=== PATIENT | female | born 1960 | race Caucasian/White ===

== ENCOUNTER 2017-06-05 10:48 | Emergency (ER) | payer BC, MEDICAID ==
[2017-06-05 13:26] LABS: Absolute Lymphocytes (CBC) 1.5 K/uL (0.7-4.9); Absolute Monocytes 0.5 K/uL (0.1-1.3); Absolute Neutrophil 2.3 K/uL (1.8-8.0); Basophils % 1.3 % (0-1.3); Eosinophils % 0.3 % (0-4.4); Hematocrit 37.7 % (36.0-45.0); Lymphocytes % 34.3 % (15.3-44.8); MCH 26.3 pg (27.0-35.0); MCV 79.9 fL (80-100); MPV 7.4 fL (7.6-11.3); RBC Red Blood Cell Count 4.72 M/uL (3.86-4.86)
[2017-06-05] MEDS ORDERED: FAMOTIDINE 20 MG/2 ML VIAL IV ONE (13:34)
[2017-06-05] MEDS ORDERED: NA CHLORIDE 0.9% 1,000 ML ONE (13:34)
[2017-06-05] MEDS ORDERED: ONDANSETRON 4 MG/2 ML VIAL ONE (13:34)
[2017-06-05 13:39] LABS: Potassium 4.1 mEq/L (3.6-5.0)
[2017-06-05 13:46] LABS: Albumin 3.7 g/dL (3.2-5.5); Bilirubin Direct 0.1 mg/dL (0-0.2); Bilirubin Total 0.5 mg/dL (0.3-1.2); Protein, Total 7.7 g/dL (6.0-8.3)
--- NOTE | 2017-06-05 13:46 | RAD REPORT ---
EXAM DESCRIPTION: Ivis Single View06/05/2017 1:38 pm CLINICAL HISTORY: Cough COMPARISON: March 2017 FINDINGS: The lungs appear clear of acute infiltrate. The heart is normal size IMPRESSION: No acute abnormalities displayed
[2017-06-05 14:16] LABS: Urine Blood NEGATIVE (NEG); Urine Glucose NEGATIVE (NEG); Urine Protein 1+ (NEG); Urine Specific Gravity 1.025 (1.005-1.030); Urine pH 5.5 (5.0-7.0)
[2017-06-05 14:28] LABS: Urine RBC <5 /HPF (NONE SEEN)
[2017-06-05 14:29] LABS: Urine Bacteria <20 /HPF (<20); Urine Culture Reflex Order REFLEXED
--- NOTE | 2017-06-05 14:33 | EDPHYS ---
Physician Documentation [facility] Name: Tamy Martinez Age: 57 yrs Sex: Female : 1960 Arrival Date: 06/05/2017 Time: 10:51 Bed 14 Private MD: ED Physician Ildefonso Melgra HPI: 06/05 13:05 This 57 yrs old Female presents to ER via Ambulatory with complaints of cp Vomiting/Diarrhea, Cough. 13:05 The patient presents to the emergency department with nausea, that is moderate, cp diarrhea, that is continuous. 13:05 Onset: The symptoms/episode began/occurred last week. cp 13:05 Possible causes: unknown. Associated signs and symptoms: Pertinent negatives: abdominal cp pain, constipation, fever, GI bleeding. Severity of symptoms: in the emergency department the symptoms are unchanged despite home interventions. [employer]: 10:57 LMP N/A - Post-menopause hj Historical: - Allergies: 11:00 Iodinated Contrast Media - IV Dye; hj - Home Meds: 11:00 diclofenac sodium 75 mg Oral TbEC 1 tab [Active]; Flagyl 500 mg Oral tab 1 tab 2 times hj per day [Active]; folic acid 1 mg Oral tab 1 tab once daily [Active]; gabapentin 300 mg Oral cap 1 cap 2 times daily [Active]; hydroxychloroquine 1.5 tabs once daily Oral tab [Active]; Lantus 100 unit/mL Sub-Q soln [Active]; meloxicam 15 mg Oral tab 1 tab once daily [Active]; methotrexate sodium 2.5 mg Oral tab take 8 tablets PO weekly. [Active]; Methotrexate Sodium Oral [Active]; Mobic Oral [Active]; Novolog Sub-Q [Active]; omeprazole 20 mg Oral TbEC 20 mg daily [Active]; Orencia 125 mg/mL subcutaneous syrg [Active]; tramadol 50 mg Oral tab 1 tab every 6 hours [Active]; - PMHx: 11:00 Diabetes - IDDM; Rheumatoid Arthritis; hj - PSHx: 11:00 Knee surgery; Cholecystectomy; ; hj - Immunization history:: Adult Immunizations up to date. - Social history:: Smoking status: Patient/guardian denies using tobacco. ROS: 13:12 Constitutional: Positive for poor PO intake, Negative for body aches, chills, fever. cp 13:12 Eyes: Negative for injury, pain, redness, and discharge. cp 13:12 ENT: Negative for drainage from ear(s), ear pain, sore throat, difficulty swallowing, difficulty handling secretions. 13:12 Cardiovascular: Negative for chest pain, edema, palpitations. 13:12 Respiratory: Negative for cough, shortness of breath, wheezing. 13:12 Abdomen/GI: Positive for nausea, diarrhea, Negative for abdominal pain, vomiting, constipation, anorexia, dysphagia, black/tarry stool, rectal bleeding. 13:12 : Negative for urinary symptoms. 13:12 Skin: Negative for cellulitis, rash. 13:12 Neuro: Negative for altered mental status, headache, weakness. 13:12 All other systems are negative. Exam: 13:18 Head/Face: Normocephalic, atraumatic. cp 13:18 Constitutional: The patient appears in no acute distress, alert, awake, non-diaphoretic, non-toxic, well developed, well nourished. 13:18 Eyes: Periorbital structures: appear normal, Pupils: equal, round, and reactive to cp light and accomodation, Extraocular movements: intact throughout, Conjunctiva: normal, no exudate, no injection, Sclera: no appreciated abnormality, Lids and lashes: appear normal, bilaterally. 13:18 ENT: External ear(s): are unremarkable, Ear canal(s): are normal, clear, TM's: dullness, bilaterally, Nose: is normal, Mouth: Lips: moist, Oral mucosa: pink and intact, moist, Posterior pharynx: is normal, airway is patent, no erythema, no exudate. 13:18 Neck: ROM/movement: is normal, is supple, without pain, no range of motions limitations, no nuchal rigidity. 13:18 Chest/axilla: Inspection: normal, Palpation: is normal, no crepitus, no tenderness. 13:18 Cardiovascular: Rate: normal, Rhythm: regular. 13:18 Respiratory: the patient does not display signs of respiratory distress, Respirations: normal, no use of accessory muscles, no retractions, no splinting, no tachypnea, labored breathing, is not present, Breath sounds: are clear throughout, no decreased breath sounds, no stridor, no wheezing. 13:18 Abdomen/GI: Inspection: abdomen appears normal, Bowel sounds: active, all quadrants, Palpation: abdomen is soft and non-tender, in all quadrants, rebound tenderness, is not appreciated, voluntary guarding, is not appreciated, involuntary guarding, is not appreciated. 13:18 Back: pain, is absent, ROM is normal. 13:18 Skin: cellulitis, is not appreciated, no rash present. Vital Signs: 10:57 BP 127 / 66; Pulse 85; Resp 18; Temp 98.4(TE); Pulse Ox 99% on R/A; Weight 84.82 kg; hj Height 5 ft. 1 in. (154.94 cm); Pain 0/10; 12:45 BP 130 / 96; Pulse 73; Resp 14; Pulse Ox 100% on R/A; mh5 13:38 BP 115 / 84; Pulse 67; Resp 17; Pulse Ox 98% on R/A; tw2 14:37 BP 124 / 57; Pulse 75; Resp 17; Pulse Ox 100% on R/A; tw2 10:57 Body Mass Index 35.33 (84.82 kg, 154.94 cm) hj MDM: 12:44 Patient medically screened. cp 14:00 Differential diagnosis: gastritis, appendicitis, diverticulitis, viral gastroenteritis, cp gastroenteritis, pneumonia. 14:31 Data reviewed: vital signs, nurses notes, lab test result(s), radiologic studies, plain cp films. 14:31 Test interpretation: by ED physician or midlevel provider: plain radiologic studies. cp Counseling: I had a detailed discussion with the patient and/or guardian regarding: the historical points, exam findings, and any diagnostic results supporting the discharge/admit diagnosis, lab results, radiology results, to return to the emergency department if symptoms worsen or persist or if there are any questions or concerns that arise at home. Response to treatment: the patient's symptoms have markedly improved after treatment. 06/05 13:03 Order name: Amylase, Serum; Complete Time: 14:28 cp 06/05 13:03 Order name: Basic Metabolic Panel; Complete Time: 14:28 cp 06/05 14:28 Interpretation: Normal except: NA 134; GLUC 184; GFR 60. cp 06/05 13:03 Order name: CBC with Diff; Complete Time: 13:44 cp 06/05 13:44 Interpretation: Normal except: MCV 79.9; MCH 26.3; RDW 15.9; MPV 7.4. cp 06/05 13:03 Order name: Creatinine for Radiology; Complete Time: 13:44 cp 06/05 13:03 Order name: Hepatic Function; Complete Time: 14:28 cp 06/05 14:28 Interpretation: Normal except: GLOB 4.0; A/G 0.9. cp 06/05 13:03 Order name: Lipase; Complete Time: 14:28 cp 06/05 13:03 Order name: Urine Microscopic Only cp 06/05 13:03 Order name: CXR XRAY; Complete Time: 14:28 cp 06/05 14:11 Order name: Urine Dipstick--Ancillary (enter results); Complete Time: 14:28 ag 06/05 14:28 Interpretation: Normal except: UPROT 1+. cp 06/05 14:11 Order name: Urine --Ancillary (enter results); Complete Time: 14:28 ag 06/05 14:30 Order name: Urine Culture EDCT 06/05 13:03 Order name: Urine Test (obtain specimen); Complete Time: 13:55 cp 06/05 13:03 Order name: IV Saline Lock; Complete Time: 13:43 cp 06/05 13:03 Order name: Labs collected and sent; Complete Time: 13:43 cp 06/05 13:03 Order name: Urine Dipstick-Ancillary (obtain specimen); Complete Time: 13:55 cp Administered Medications: 13:30 Drug: Zofran 4 mg Route: IVP; Site: left antecubital; tw2 13:42 Follow up: Response: No adverse reaction tw2 13:32 Drug: Pepcid 20 mg Route: IVP; Site: left antecubital; tw2 13:42 Follow up: Response: No adverse reaction tw2 13:34 Drug: NS 0.9% 1000 ml Route: IV; Rate: 1 bolus; Site: left antecubital; tw2 13:43 Follow up: Response: No adverse reaction; IV Status: Completed infusion; IV Intake: tw2 1000ml 14:38 Follow up: Response: No adverse reaction; IV Status: Order to discontinue infusion; IV tw2 Intake: 200ml Disposition: 06/06 06:45 Co-signature as Attending Physician, Ildefonso RYAN I agree with the assessment and barbara plan of care. Disposition: 03/26/18 14:32 Discharged to Home. Impression: Diarrhea, unspecified, Nausea, Cough. - Condition is Stable. - Discharge Instructions: Food Choices to Help Relieve Diarrhea, Adult, Diarrhea, Nausea, Adult, Cough, Adult. - Prescriptions for Zofran 4 mg Oral Tablet - take 1 tablet by ORAL route every 12 hours As needed; 20 tablet. Tessalon Perles 100 mg Oral Capsule - take 1 capsule by ORAL route every 8 hours As needed; 15 capsule. - Medication Reconciliation Form, Thank You Letter, Antibiotic Education, Prescription Opioid Use form. - Follow up: Private Physician; When: 1 - 2 days; Reason: Recheck today's complaints. - Problem is new. - Symptoms have improved. Signatures: Dispatcher [employer] EDIldefonso Lange MD MD cha Joaquin, Henry, RN RN hj Ildefonso Jasso PA PA cp Wise, Tara RN RN tw2
--- NOTE | 2017-06-05 14:33 | ER ---
Nurse's Notes [facility] Name: Tamy Martinez Age: 57 yrs Sex: Female : 1960 Arrival Date: 06/05/2017 Time: 10:51 Bed 14 Private MD: Diagnosis: Diarrhea, unspecified;Nausea;Cough Presentation: 06/05 10:56 Presenting complaint: Patient states: i ve been coughing and vomiting since Monday, hj diarrhea started Monday; denies abd pain; report fever and chills;. Transition of care: patient was not received from another setting of care. Onset of symptoms was June 05, 2017. Care prior to arrival: None. 10:56 Method Of Arrival: Ambulatory hj 10:56 Acuity: HODAN 3 hj Triage Assessment: 10:57 General: Appears in no apparent distress. uncomfortable, Behavior is calm, cooperative, hj appropriate for age. Pain: Denies pain. GI: Reports nausea, vomiting. 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 [Active]; Methotrexate Sodium Oral [Active]; Mobic Oral [Active]; Novolog Sub-Q [Active]; omeprazole 20 mg Oral TbEC 20 mg daily [Active]; Orencia 125 mg/mL subcutaneous syrg [Active]; tramadol 50 mg Oral tab 1 tab every 6 hours [Active]; - PMHx: 11:00 Diabetes - IDDM; Rheumatoid Arthritis; hj - PSHx: 11:00 Knee surgery; Cholecystectomy; ; hj - Immunization history:: Adult Immunizations up to date. - Social history:: Smoking status: Patient/guardian denies using tobacco. Screenin:46 Abuse screen: Denies threats or abuse. Nutritional screening: No deficits noted. tw2 Tuberculosis screening: No symptoms or risk factors identified. Fall Risk Ambulatory Aid- Crutches/Cane/Walker (15 pts). Assessment: 10:57 GI: Abdomen is non-distended. hj 12:43 General: Appears in no apparent distress. obese, Behavior is calm, cooperative, tw2 appropriate for age. Pain: Denies pain. Neuro: Level of Consciousness is awake, alert, obeys commands, Oriented to person, place, time, situation. Cardiovascular: Denies chest pain, shortness of breath, Heart tones S1 S2 Capillary refill < 3 seconds Patient's skin is warm and dry. Respiratory: Reports cough that is non-productive, Airway is patent Respiratory effort is even, unlabored, Respiratory pattern is regular, symmetrical, Breath sounds are clear bilaterally. GI: Abdomen is round non-distended, Bowel sounds present X 4 quads. Abd is soft and non tender X 4 quads. Reports diarrhea, intolerance of fluids, intolerance of food, nausea, vomiting. : No signs and/or symptoms were reported regarding the genitourinary system. EENT: No signs and/or symptoms were reported regarding the EENT system. Derm: No signs and/or symptoms reported regarding the dermatologic system. Musculoskeletal: Range of motion: intact in all extremities, pt using cane at this time, states she had knee replacement a few weeks ago. 13:41 Reassessment: Patient appears in no apparent distress at this time. No changes from tw2 previously documented assessment. Patient and/or family updated on plan of care and expected duration. Pain level reassessed. Patient is alert, oriented x 3, equal unlabored respirations, skin warm/dry/pink. pt had an accident after coughing and had a bm in her pants, brief, wipes, and new gown given to pt. 14:38 Reassessment: Patient appears in no apparent distress at this time. No changes from tw2 previously documented assessment. Patient and/or family updated on plan of care and expected duration. Pain level reassessed. Patient is alert, oriented x 3, equal unlabored respirations, skin warm/dry/pink. Vital Signs: 10:57 BP 127 / 66; Pulse 85; Resp 18; Temp 98.4(TE); Pulse Ox 99% on R/A; Weight 84.82 kg; hj Height 5 ft. 1 in. (154.94 cm); Pain 0/10; 12:45 BP 130 / 96; Pulse 73; Resp 14; Pulse Ox 100% on R/A; mh5 13:38 BP 115 / 84; Pulse 67; Resp 17; Pulse Ox 98% on R/A; tw2 14:37 BP 124 / 57; Pulse 75; Resp 17; Pulse Ox 100% on R/A; tw2 10:57 Body Mass Index 35.33 (84.82 kg, 154.94 cm) ED Course: 10:51 Patient arrived in ED. mr 10:57 Triage completed. hj 10:57 Arm band placed on left wrist. hj 12:43 Nadege Chacon RN is Primary Nurse. tw2 12:43 Ildefonso Jasso PA is PHCP. cp 12:43 Ildefonso Melgar MD is Attending Physician. cp 12:46 Bed in low position. Call light in reach. Pulse ox on. NIBP on. tw2 12:47 No provider procedures requiring assistance completed. tw2 13:20 Inserted saline lock: 22 gauge in right antecubital area, using aseptic technique. tw2 ,using aseptic technique. per Celine Alcantara Blood collected. 13:30 Inserted saline lock: 22 gauge in left antecubital area, using aseptic technique. IV tw2 discontinued, intact, bleeding controlled, No redness/swelling at site. Pressure dressing applied, infiltration noted to right ac, discontinued at this time. 13:37 CXR XRAY In Process Unspecified. EDMS 13:37 X-ray completed. Portable x-ray completed in exam room. Patient tolerated procedure jb2 well. Administered Medications: 13:30 Drug: Zofran 4 mg Route: IVP; Site: left antecubital; tw2 13:42 Follow up: Response: No adverse reaction tw2 13:32 Drug: Pepcid 20 mg Route: IVP; Site: left antecubital; tw2 13:42 Follow up: Response: No adverse reaction tw2 13:34 Drug: NS 0.9% 1000 ml Route: IV; Rate: 1 bolus; Site: left antecubital; tw2 13:43 Follow up: Response: No adverse reaction; IV Status: Completed infusion; IV Intake: tw2 1000ml 14:38 Follow up: Response: No adverse reaction; IV Status: Order to discontinue infusion; IV tw2 Intake: 200ml Intake: 13:43 IV: 1000ml; Total: 1000ml. tw2 14:38 IV: 200ml; Total: 1200ml. tw2 Outcome: 13:41 Discharged to home ambulatory, with significant other. tw2 13:41 Condition: stable 13:41 Discharge instructions given to patient, significant other, Instructed on discharge instructions, follow up and referral plans. medication usage, Demonstrated understanding of instructions, follow-up care, medications, Prescriptions given X 2. 14:32 Discharge ordered by . polo 14:39 Patient left the ED. tw2 Addendum: 06/09/2017 13:53 Addendum: Culture Results: Positive urine culture. Phone call Attempt #1 no answer. s s Signatures: Dispatcher [employer] Mary Galicia Marvin Correa jb2 Veronika Norton RN RN Ankur Day RN RN Ildefonso Jasso PA PA cp Wise, Tara, RN RN 2 Mary Ramsey [facility] Corrections: (The following items were deleted from the chart) 06/05 11:00 10:57 Pulse 85bpm; Resp 18bpm; Pulse Ox 99% RA; Temp 98.4F Temporal; 84.82 kg; Height 5 hj ft. 1 in.; BMI: 35.3; Pain 0/10; hj 13:49 13:48 BP 124 / 57; Pulse 72bpm; Resp 17bpm; Pulse Ox 97% RA; tw2 tw2 13:50 13:41 Reassessment: Patient appears in no apparent distress at this time. No changes tw2 from previously documented assessment. Patient and/or family updated on plan of care and expected duration. Pain level reassessed. Patient is alert, oriented x 3, equal unlabored respirations, skin warm/dry/pink. tw2
[2017-06-05 14:53] VITALS: TEMP 98.4
[2017-06-05 14:56] VITALS: BP 124/57; O2SAT 100
== END 2017-06-05 14:39 | disposition home or self-care (01) ==
LOC: ER 10:48
DX: R19.7 Diarrhea, unspecified (principal); R05 Cough; E11.9 Type 2 diabetes mellitus without complications; Z91.041 Radiographic dye allergy status; Z79.4 Long term (current) use of insulin
CPT/HCPCS: 36415; 71045; 80048; 80076; 81003; 81015; 81025; 82150; 83690; 85025; 87077; 87086; 87088; 87186; 96374; 96375; 99284; J2405; J7030

== ENCOUNTER 2018-06-27 09:31 | Observation (INO) | payer BC, OTHER ==
--- OUTSIDE RECORDS SUMMARY | 2018-06-27 09:47 | XMS REPORT ---
:1960 [facility] [address] [place] [address] [address]. [address] [place] [address] Care Team Providers Name Role Phone Unavailable Unavailable Unavailable Problems This patient has no known problems. Allergies, Adverse Reactions, Alerts This patient has no known allergies or adverse reactions. Medications This patient has no known medications.
[2018-06-27] MEDS ORDERED: NITROGLYCERIN 0.4 MG/TAB SL ONE (09:49)
--- NOTE | 2018-06-27 10:04 | RAD REPORT ---
EXAM DESCRIPTION: RAD - Chest Single View - 06/27/2018 9:57 am CLINICAL HISTORY: CHEST PAIN Chest pain. COMPARISON: Chest Single View dated 06/05/2017; Chest Single View dated 03/13/2017; Chest Single View d ated 04/11/2016; CHEST SINGLE VIEW dated 10/09/2014 FINDINGS: Portable technique limits examination quality. The lungs are grossly clear. The heart is upper limit of normal in size. No displaced fractures. IMPRESSION: No acute intrathoracic process suspected.
[2018-06-27 10:06] LABS: Absolute Lymphocytes (CBC) 2.4 K/uL (0.7-4.9); Absolute Monocytes 0.6 K/uL (0.1-1.3); Absolute Neutrophil 4.4 K/uL (1.8-8.0); Basophils % 0.4 % (0-1.3); Eosinophils % 2.1 % (0-4.4); Hematocrit 39.5 % (36.0-45.0); Lymphocytes % 31.4 % (15.3-44.8); MPV 8.1 fL (7.6-11.3); Monocytes % 8.4 % (3.3-12.3); RBC Red Blood Cell Count 4.66 M/uL (3.86-4.86)
[2018-06-27 10:21] LABS: BUN Blood Urea Nitrogen 18 mg/dL (7-18); Bicarbonate 28 mmol/L (21-32); Glucose Level 231 mg/dL (74-106); NT PRO-BNP 234 pg/mL (<125); Potassium 4.4 mmol/L (3.5-5.1); Sodium Level 140 mmol/L (136-145); Troponin (Emerg Dept Use Only) < 0.02 ng/mL (0.0-0.045)
--- NOTE | 2018-06-27 10:41 | EDPHYS ---
Physician Documentation [facility] Name: Tamy Martinez Age: 58 yrs Sex: Female : 1960 Arrival Date: 06/27/2018 Time: 09:32 Bed 5 Private MD: ED Physician Prince Lopez HPI: 06/27 09:33 This 58 yrs old Female presents to ER via Unassigned with complaints of Chest rn Pain. 09:33 The patient or guardian reports chest pain that is located primarily in the substernal rn area. Onset: at 07:00. The pain radiates to the left arm, left neck. The chest pain is described as sharp. Duration: The patient or guardian reports a single episode, that is still ongoing. Modifying factors: The symptoms are alleviated by nothing. the symptoms are aggravated by nothing. Severity of pain: At its worst the pain was moderate in the emergency department the pain has improved. The patient has not experienced similar symptoms in the past. Reports chest pain, radiates to left neck and left arm, began at 0700, no diaphoresis, no fever, no sob, has never had before. Has RA.. Historical: - Allergies: 09:35 Iodinated Contrast Media - IV Dye; aa5 - Home Meds: 09:35 Lantus 100 unit/mL Sub-Q soln [Active]; Novolog Sub-Q [Active]; gabapentin 300 mg Oral aa5 cap 1 cap 2 times daily [Active]; Methotrexate Sodium Oral [Active]; Unknown medication for RA [Active]; - PMHx: 09:35 Diabetes - IDDM; Rheumatoid Arthritis; Hypertension resolved after lap band; aa5 - PSHx: 09:35 Knee surgery; Cholecystectomy; ; Lap band; aa5 - Family history:: pertinent for CVA or TIA. - Ebola Screening: : No symptoms or risks identified at this time. - Hospitalizations: : No recent hospitalization is reported. ROS: 09:33 Constitutional: Negative for fever, chills, and weight loss, Eyes: Negative for injury, rn pain, redness, and discharge, Neck: Negative for injury, pain, and swelling, Cardiovascular: + chest pain Respiratory: Negative for shortness of breath, cough, wheezing, and pleuritic chest pain, Abdomen/GI: Negative for abdominal pain, nausea, vomiting, diarrhea, and constipation, MS/Extremity: Negative for injury and deformity, Skin: Negative for injury, rash, and discoloration, Neuro: Negative for headache, weakness, numbness, tingling, and seizure. Exam: 09:33 Constitutional: This is a well developed, well nourished patient who is awake, alert, rn and in no acute distress. Head/Face: Normocephalic, atraumatic. Eyes: Pupils equal round and reactive to light, extra-ocular motions intact. Lids and lashes normal. Conjunctiva and sclera are non-icteric and not injected. Cornea within normal limits. Periorbital areas with no swelling, redness, or edema. Neck: Trachea midline, no thyromegaly or masses palpated, and no cervical lymphadenopathy. Supple, full range of motion without nuchal rigidity, or vertebral point tenderness. No Meningismus. Cardiovascular: Regular rate and rhythm. No pulse deficits. Respiratory: Lungs have equal breath sounds bilaterally, clear to auscultation. No increased work of breathing, no retractions or nasal flaring. Abdomen/GI: soft, non-tender Skin: Warm, dry. MS/ Extremity: Pulses equal, no cyanosis. Neuro: Awake and alert, GCS 15, oriented to person, place, time, and situation. 09:57 ECG was reviewed by the Attending Physician. rn Vital Signs: 09:32 BP 155 / 99; Pulse 80; Resp 18 S; Temp 98.3(O); Pulse Ox 100% on R/A; Weight 89.81 kg aa5 (R); Height 5 ft. 1 in. (154.94 cm) (R); Pain 9/10; 09:44 BP 127 / 68; Pulse 77; Resp 16 S; Pulse Ox 97% on R/A; Pain 8/10; aa5 10:19 BP 130 / 66; Pulse 64; Resp 16 S; Pulse Ox 14% on R/A; jl7 10:40 BP 121 / 67; Pulse 66; Resp 16 S; Pulse Ox 100% on R/A; Pain 7/10; aa5 11:27 BP 132 / 54; Pulse 59; Resp 18 S; Pulse Ox 97% on R/A; aa5 12:15 BP 124 / 55; Pulse 65; Resp 16 S; Pulse Ox 98% on R/A; aa5 13:13 BP 135 / 56; Pulse 70; Resp 16; Pulse Ox 97% on R/A; mt 09:32 Body Mass Index 37.41 (89.81 kg, 154.94 cm) aa5 MDM: 09:32 Patient medically screened. rn 10:38 Differential diagnosis: acute myocardial infarction, acute pericarditis, anxiety, rn coronary artery disease chest wall pain, costochondritis, gastritis, gastroesophageal reflux disease (GERD), pleurisy, pneumonia, pneumothorax, stable angina. The patient was not given aspirin in the Emergency Department. Administered by EMS. Data reviewed: vital signs, nurses notes, lab test result(s), EKG, radiologic studies, plain films, and as a result, I will admit patient. Counseling: I had a detailed discussion with the patient and/or guardian regarding: the historical points, exam findings, and any diagnostic results supporting the discharge/admit diagnosis, lab results, radiology results, the need for further work-up and treatment in the hospital. Response to treatment: the patient's symptoms have mildly improved after treatment, and as a result, I will discharge patient. Special discussion:. ED course: Chest pain improved after nitro, will admit to Dr. Parson for cardiac w/u given family history, personal medical problems, and never had this before. . 06/27 09:32 Order name: Basic Metabolic Panel; Complete Time: 10:06/27 09:32 Order name: CBC with Diff; Complete Time: :06/27 09:32 Order name: NT PRO-BNP; Complete Time: 10:06/27 09:32 Order name: Troponin (emerg Dept Use Only); Complete Time: 10:06/27 09:32 Order name: XRAY Chest (1 view); Complete Time: 10:06/27 09:32 Order name: EKG; Complete Time: :33 06/27 09:32 Order name: Cardiac monitoring; Complete Time: :06/27 09:32 Order name: EKG - Nurse/Tech; Complete Time: :06/27 09:32 Order name: IV Saline Lock; Complete Time: :06/27 09:32 Order name: Labs collected and sent; Complete Time: 09:43 06/27 09:32 Order name: O2 Per Protocol; Complete Time: rn 06/27 09:32 Order name: O2 Sat Monitoring; Complete Time: rn 06/27 10:40 Order name: Diet Ada 1800 Fran; Complete Time: 10:40 aa5 EC:57 Rate is 73 beats/min. Rhythm is regular. QRS Tie Siding is Normal. MN interval is normal. QRS rn interval is normal. QT interval is normal. No Q waves. T waves are Normal. No ST changes noted. Clinical impression: NSR w/ Non-specific ST/T Changes. Interpreted by me. Reviewed by me. Administered Medications: 09:38 Drug: Nitroglycerin 0.4 mg Route: Sublingual; aa5 09:45 Follow up: Response: No adverse reaction; Pain is decreased aa5 Disposition: 06/27/18 10:40 Hospitalization ordered by Saida Parson for Observation. Preliminary diagnosis is Chest pain, unspecified. - Bed requested for Telemetry/MedSurg (observation). - Status is Observation. aa5 - Condition is Stable. - Problem is new. - Symptoms have improved. UTI on Admission? No Signatures: Dispatcher [employer] EDMS Monica Wise Roman, MD MD rn Calderon, Audri, RN RN aa5 Corrections: (The following items were deleted from the chart) 12:55 10:40 Hospitalization Ordered by Saida Parson MD for Observation. Preliminary diagnosis bd is Chest pain, unspecified. Bed requested for Telemetry/MedSurg (observation). Status is Observation. Condition is Stable. Problem is new. Symptoms have improved. UTI on Admission? No. rn 13:52 12:55 06/27/2018 10:40 Hospitalization Ordered by Saida Parson MD for Observation. aa5 Preliminary diagnosis is Chest pain, unspecified. Bed requested for Telemetry/MedSurg (observation). Status is Observation. Condition is Stable. Problem is new. Symptoms have improved. UTI on Admission? No. bd
--- NOTE | 2018-06-27 10:41 | ER ---
Nurse's Notes [facility] Name: Tamy Martinez Age: 58 yrs Sex: Female : 1960 Arrival Date: 06/27/2018 Time: 09:32 Bed 5 Private MD: Diagnosis: Chest pain, unspecified Presentation: 06/27 09:32 Presenting complaint: Patient states: chest pain radiating to left side of neck and aa5 left arm that began at 0700 today. Transition of care: patient was not received from another setting of care. Onset of symptoms was June 27, 2018. Risk Assessment: Do you want to hurt yourself or someone else? Patient reports no desire to harm self or others. Initial Sepsis Screen: Does the patient meet any 2 criteria? No. Patient's initial sepsis screen is negative. Does the patient have a suspected source of infection? No. Patient's initial sepsis screen is negative. Care prior to arrival: Medication(s) given: ASA, 81 mg, x 4, IV initiated. 20 GA, in the right forearm, Glucose check: 239. 09:32 Method Of Arrival: EMS: [facility] aa5 09:32 Acuity: HODAN 2 aa5 Historical: - Allergies: 09:35 Iodinated Contrast Media - IV Dye; aa5 - Home Meds: 09:35 Lantus 100 unit/mL Sub-Q soln [Active]; Novolog Sub-Q [Active]; gabapentin 300 mg Oral aa5 cap 1 cap 2 times daily [Active]; Methotrexate Sodium Oral [Active]; Unknown medication for RA [Active]; - PMHx: 09:35 Diabetes - IDDM; Rheumatoid Arthritis; Hypertension resolved after lap band; aa5 - PSHx: 09:35 Knee surgery; Cholecystectomy; ; Lap band; aa5 - Family history:: pertinent for CVA or TIA. - Ebola Screening: : No symptoms or risks identified at this time. - Hospitalizations: : No recent hospitalization is reported. Screenin:36 Abuse screen: Denies threats or abuse. Nutritional screening: No deficits noted. aa5 Tuberculosis screening: No symptoms or risk factors identified. Fall Risk None identified. Assessment: 09:33 General: Appears uncomfortable, Behavior is calm, cooperative. Pain: Complains of pain aa5 in anterior aspect of left upper chest Pain radiates to left side of neck and left arm Pain currently is 9 out of 10 on a pain scale. Quality of pain is described as sharp, Pain began 0700 Is continuous. Neuro: Level of Consciousness is awake, alert, obeys commands, Oriented to person, place, time, situation. Cardiovascular: Heart tones S1 S2 present Rhythm is sinus rhythm. Respiratory: Airway is patent Respiratory effort is even, unlabored, Respiratory pattern is regular, symmetrical, Breath sounds are clear bilaterally. Denies cough, shortness of breath. GI: Abdomen is round Bowel sounds present X 4 quads. Abd is soft and non tender X 4 quads. Patient currently denies nausea, vomiting. : No signs and/or symptoms were reported regarding the genitourinary system. EENT: No signs and/or symptoms were reported regarding the EENT system. Derm: Skin is pink, warm \\T\\ dry. Musculoskeletal: Range of motion: intact in all extremities. 09:45 Reassessment: Patient and/or family updated on plan of care and expected duration. Pain aa5 level reassessed. Patient is alert, oriented x 3, equal unlabored respirations, skin warm/dry/pink. Pt states "I feel a little better now" . Pain: Pain currently is 8 out of 10 on a pain scale. 10:40 Reassessment: Patient is alert, oriented x 3, equal unlabored respirations, skin aa5 warm/dry/pink. MD at bedside updating pt on POC and of need to be hospitalized. . Cardiovascular: Rhythm is sinus rhythm. 11:27 Reassessment: Patient and/or family updated on plan of care and expected duration. Pain aa5 level reassessed. Patient is alert, oriented x 3, equal unlabored respirations, skin warm/dry/pink. 12:25 Reassessment: Patient is alert, oriented x 3, equal unlabored respirations, skin aa5 warm/dry/pink. Pt given lunch tray. Awaiting room assignment . 13:10 Reassessment: Patient is alert, oriented x 3, equal unlabored respirations, skin aa5 warm/dry/pink. Patient states feeling better. Pt tolerated lunch, pt notified of room assignment and notified of wait time to be transported there. . Vital Signs: 09:32 BP 155 / 99; Pulse 80; Resp 18 S; Temp 98.3(O); Pulse Ox 100% on R/A; Weight 89.81 kg aa5 (R); Height 5 ft. 1 in. (154.94 cm) (R); Pain 9/10; 09:44 BP 127 / 68; Pulse 77; Resp 16 S; Pulse Ox 97% on R/A; Pain 8/10; aa5 10:19 BP 130 / 66; Pulse 64; Resp 16 S; Pulse Ox 14% on R/A; jl7 10:40 BP 121 / 67; Pulse 66; Resp 16 S; Pulse Ox 100% on R/A; Pain 7/10; aa5 11:27 BP 132 / 54; Pulse 59; Resp 18 S; Pulse Ox 97% on R/A; aa5 12:15 BP 124 / 55; Pulse 65; Resp 16 S; Pulse Ox 98% on R/A; aa5 13:13 BP 135 / 56; Pulse 70; Resp 16; Pulse Ox 97% on R/A; mt 09:32 Body Mass Index 37.41 (89.81 kg, 154.94 cm) aa5 ED Course: 09:32 Patient arrived in ED. aa5 09:32 Prince Lopez MD is Attending Physician. rn 09:32 Arm band placed on Patient placed in an exam room, on a stretcher. aa5 09:33 Triage completed. aa5 09:35 Patient has correct armband on for positive identification. Bed in low position. Call aa5 light in reach. Side rails up X2. monitor and storage bin tender on. Pulse ox on. NIBP on. 09:35 EKG done, by armored service technician. reviewed by Prince Lopez MD. at1 09:35 Initial lab(s) drawn, by dc, sent to lab. aa5 09:36 Nellie Omalley, RN is Primary Nurse. aa5 09:36 No provider procedures requiring assistance completed. Patient maintains SpO2 aa5 saturation greater than 95% on room air. 09:57 X-ray completed. Portable x-ray completed in exam room. Patient tolerated procedure sw well. 09:58 XRAY Chest (1 view) In Process Unspecified. EDMS 10:40 Saida Parson MD is Hospitalizing Provider. rn 13:50 Patient admitted, IV remains in place. aa5 Administered Medications: 09:38 Drug: Nitroglycerin 0.4 mg Route: Sublingual; aa5 09:45 Follow up: Response: No adverse reaction; Pain is decreased aa5 Outcome: 10:40 Decision to Hospitalize by Provider. rn 13:27 Admitted to Tele accompanied by tech, via wheelchair, room 417, with chart, Report sv called to Mariaelena OLVERA 13:27 Condition: stable 13:27 Instructed on the need for admit. 13:52 Patient left the ED. aa5 Signatures: Dispatcher [employer] EDNancy Carter RN RN Prince Ruano MD MD rn Calderon, Audri, RN RN aa5 Jackie Rangel, environmental control administrator EKG Tat1 Elvira Rangel Jahala, RN RN jl7 Yasmeen Vuong tx Corrections: (The following items were deleted from the chart) 09:36 09:32 BP 155 / 99; Pulse 80bpm; Resp 18bpm; Spontaneous; Pulse Ox 100% RA; 89.81 kg aa5 Reported; Height 5 ft. 1 in. Reported; BMI: 37.4; Pain 9/10; aa5 09:45 09:32 Care prior to arrival: Medication(s) given: ASA, 81 mg, x 4, IV initiated. 20 GA, aa5 in the right forearm, aa5
--- NOTE | 2018-06-27 12:01 | EKG ---
Test Date: 2018-06-27 Test Time: 09:29:07 Monogram Maker: ZOË MEASUREMENT RESULTS: Intervals: Rate: 73 FL: 138 QRSD: 84 QT: 396 QTc: 436 [place]: P: 75 FL: 138 QRS: 51 T: 59 INTERPRETIVE STATEMENTS: Normal sinus rhythm Cannot rule out Anterior infarct, age undetermined Abnormal ECG Compared to ECG 03/13/2017 15:12:14 Myocardial infarct finding now present Electronically Signed On 06-27-18 12:00:33 CDT by Gabriel Hui
[2018-06-27] MEDS ORDERED: ACETAMINOPHEN 500 MG TAB PO PRN (14:14)
[2018-06-27] MEDS: INSULIN -REGULAR HUMAN 50 UNIT/0.5 ML ML SQ SCH ×3 (14:14→21:05)
[2018-06-27] MEDS ORDERED: NITROGLYCERIN 0.4 MG/TAB SL PRN (14:14)
[2018-06-27 14:35] VITALS: BMI 33.2
[2018-06-27] MEDS ORDERED: D50W 25 GM/50 ML SYRINGE IV PRN (14:37)
[2018-06-27] MEDS ORDERED: GLUCAGON 1 MG/VIAL IM PRN (14:37)
[2018-06-27] MEDS: MORPHINE 2 MG/ML SYR IV PRN ×3 (15:08→22:52)
[2018-06-27] MEDS ORDERED: PNEUMOCOCCAL VACCINE 0.5 ML IMVAC ONE (16:00)
[2018-06-27] MEDS ORDERED: INSULIN ASPART 12 UNIT SQ SCH (17:00)
[2018-06-27] MEDS: INSULIN LISPRO 100 UNIT/1 ML SQ SCH (17:00)
--- NOTE | 2018-06-27 17:33 | ECHO ---
HEIGHT: 5 ft 1 in WEIGHT: 176 lb 0 oz DATE OF STUDY: 06/27/[address]: Saida Parson MD 2-DIMENSIONAL: YES M.MODE: YES DOPPLER: YES COLOR FLOW: YES TDS: PORTABLE: DEFINITY: BUBBLE STUDY: DIAGNOSIS: CHEST PAIN CARDIAC HISTORY: CATHERIZATION: NO SURGERY: NO PROSTHETIC VALVE: NO PACEMAKER: NO MEASUREMENTS (cm) DIASTOLIC (NORMALS) SYSTOLIC (NORMALS) IVSd 1.0 (0.6-1.2) LA Diam 3.6 (1.9-4.0) LVEF 65% LVIDd 4.9 (3.5-5.7) LVIDs 3.2 (2.0-3.5) %FS 36% LVPWd 1.1 (0.6-1.2) Ao Diam 2.3 (2.0-3.7) 2 DIMENSIONAL ASSESSMENT: RIGHT ATRIUM: NORMAL LEFT ATRIUM: NORMAL RIGHT VENTRICLE: NORMAL LEFT VENTRICLE: NORMAL TRICUSPID VALVE: NORMAL MITRAL VALVE: NORMAL PULMONIC VALVE: NORMAL AORTIC VALVE: NORMAL PERICARDIAL EFFUSION: NONE AORTIC ROOT: NORMAL LEFT VENTRICULAR WALL MOTION: NORMAL DOPPLER/COLOR FLOW: MILD AORTIC REGURGITATION. MILD TRICUSPID REGURGITATION. NORMAL RIGHT VENTRICULAR SYSTOLIC PRESSURE. COMMENTS: NORMAL TWO DIMENSIONAL ECHOCARDIOGRAM. MILD AORTIC REGURGITATION AND TRICUSPID REGURGITATION. TECHNOLOGIST: CALVIN HERNÁNDEZ.
[2018-06-27] MEDS ORDERED: ATORVASTATIN 40 MG TAB PO SCH (21:00)
[2018-06-27] MEDS ORDERED: INSULIN GLARGINE HUM REC ANLOG 36 UNIT SQ SCH (21:00)
[2018-06-27] MEDS ORDERED: INSULIN GLARGINE 100 UNITS/ML SQ SCH (21:00)
[2018-06-27] MEDS: GABAPENTIN 100 MG CAP PO SCH (21:04)
--- NOTE | 2018-06-27 23:09 | CON ---
History Of Present Illness: Mrs. Martinez came to the hospital for chest pain. It was mostly in the l eft shoulder region and left side of her neck and made her worried about her heart. She has never hernandez d heart disease in the past. She has had normal stress test in the past. No history of myocardial i nfarction or stroke. She has numerous risk factors. She has diabetes, rheumatoid arthritis, obesity , hypertension. Allergies: SHE IS ALLERGIC TO X-RAY CONTRAST MATERIAL. Medications: She takes folic acid, insulin, omeprazole, methotrexate, hydroxychloroquine, gabapentin , metoprolol, tofacitinib, meloxicam, and ibuprofen. Physical Examination: General: She is 5 feet and 1 inch, 176 pounds, alert, oriented, pleasant, not in distress. Lungs: Clear. Cardiac: Within normal limits. Abdomen: Soft. Extremities: Diminished but palpable pulses. Vital Signs: Blood pressure 135/56, pulse 70. Laboratory Data: EKG; possible septal RI, new since the old EKG. Cardiac enzymes are normal. Compl ete blood count is normal. Creatinine 1.01. Blood sugars 231 and 243. Impression: Mrs. Martinez may indeed have CAD. I would recommend an echocardiogram, nuclear stress te st, and we will see what we learn from those. ALLIE/EVI Voice ID: [id number] Report ID: [id number]
[2018-06-28 00:21] LABS: Urine Appearance CLEAR; Urine Bilirubin NEGATIVE (NEG); Urine Blood NEGATIVE (NEG); Urine Color YELLOW; Urine Glucose TRACE (NEG); Urine Microscopic Reflex NO UMIC; Urine Protein NEGATIVE (NEG); Urine Specific Gravity 1.015 (1.005-1.030); Urine Urobilinogen 0.2 mg/dL (0.2-1.0)
--- NOTE | 2018-06-28 02:37 | HP ---
Date of Admission: 06/27/2018 Chief Complaint: Chest pain. Consultants: Dr. Hui with Cardiology. History Of Present Illness: The patient is a 58-year-old female who comes into the hospital with past medical history of hypertension, diabetes, rheumatoid arthritis, who is on DMARDs, comes in with chest pain. 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 The patient describes some nauseating feeling and lost her balance, had to hold onto the [employer]ois register to prevent falling. The patient's symptoms were constant, moderate, progressively worsening. The patient does have strong family history of heart disease with father who had an AL at the age of 40, at 43. The patient came into the ER for further workup. Her initial troponin and EKG did not show any acute changes. The patient was then referred for admission. When seen in the ER, she was awake, alert, oriented x3, in some mild distress. Past Medical History: Hypertension; diet-controlled diabetes; rheumatoid arthritis, on DMARDs; degenerative disk disease of the spine. Past Surgical History: Lap band in 2010, x2, left knee replacement, cholecystectomy. Allergies: TO IODINE CONTRAST. Medications: List reviewed. Social History: The patient denies any tobacco use, alcohol use, or illicit drug use. 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 She has , has 2 children. Family History: Father had hypertension and AL at the age of 40, at the age of 43. Brother also had AL at 30, in a car wreck. Mother had esophageal cancer. Review of Systems: An 11-point system reviewed, negative except as per HPI. Physical Examination: Vital Signs: Temperature 98.3, heart rate 80, blood pressure 155/99, respirations 18, O2 100% on room air. General: Awake, alert, oriented x3, ill-appearing female, appears older than stated age. Obese, BMI 33. HEENT: Normocephalic, atraumatic. PERRLA. EOMI. Moist mucous membranes. The oropharynx is clear. Conjunctivae anicteric. Poor dentition. Oropharynx is clear. Neck: Supple. No JVD. Trachea midline. CV: S1, S2. Regular rate and rhythm. Peripheral pulses present. Respiratory: Clear to auscultation bilaterally. No wheezing or stridor. No use of accessory muscles. Gastrointestinal: Abdomen is soft, nontender, nondistended. Positive bowel sounds. No guarding or rigidity. Extremities: No clubbing, cyanosis, or edema. No calf tenderness. Neuro: Cranial nerves 2 through 12 intact grossly. No focal neurological deficits. Speech is normal. Musculoskeletal: The patient does have some chest wall tenderness along with tenderness on her left shoulder. Skin: No rashes. Normal skin turgor. Psych: Mood is okay. Affect is full. Insight and judgment are good. Laboratory Data: Sodium 140, potassium 4.4, chloride 105, CO2 of 28, BUN 18, creatinine 1.01, glucose 231, calcium 9.1. Troponin, less than 0.02. BNP 234. WBC 7.6, H and H 13.4 and 39.5, platelets 270, neutrophils 57%. Chest x-ray, personally reviewed, shows no acute intrathoracic process suspected. EKG shows normal sinus rhythm, rate is 73. Assessment And Plan: A 58-year-old female with 1. Chest pain, rule out acute coronary syndrome. We will start her on chest pain guidelines and obtain serial cardiac enzymes and electrocardiogram. The patient does have very strong family history of heart disease, has hypertension and diabetes. The patient is nonsmoker. Dr. Hui has been consulted. We will obtain echocardiogram. 2. Obesity, body mass index of 33.3. 3. Essential hypertension, apparently diet controlled. 4. Diabetes mellitus type 2, non-insulin requiring, with hyperglycemia. We will start her on sliding scale insulin and monitor Accu-Cheks. 5. Rheumatoid arthritis, on disease-modifying antirheumatic drugs. 6. Degenerative disk disease. Plan: We will admit the patient to Med-Surg, [facility] as observation. /EVI Voice ID: [id number] MTDD
[2018-06-28] MEDS: MORPHINE 2 MG/ML SYR IV PRN (02:46)
[2018-06-28 04:22] LABS: Absolute Lymphocytes (CBC) 2.1 K/uL (0.7-4.9); Absolute Monocytes 0.8 K/uL (0.1-1.3); Absolute Neutrophil 4.9 K/uL (1.8-8.0); Basophils % 0.4 % (0-1.3); Eosinophils % 3.1 % (0-4.4); Hematocrit 35.5 % (36.0-45.0); Lymphocytes % 25.9 % (15.3-44.8); MPV 7.9 fL (7.6-11.3); Monocytes % 9.8 % (3.3-12.3); RBC Red Blood Cell Count 4.26 M/uL (3.86-4.86)
[2018-06-28 04:39] LABS: Potassium 3.8 mmol/L (3.5-5.1)
[2018-06-28] MEDS ORDERED: METOPROLOL TAR 25 MG TAB PO SCH (06:00)
[2018-06-28] MEDS ORDERED: PANTOPRAZOLE 40MG TABLET PO SCH (07:30)
[2018-06-28] MEDS: INSULIN -REGULAR HUMAN 50 UNIT/0.5 ML ML SQ SCH (07:30)
[2018-06-28] MEDS: INSULIN LISPRO 100 UNIT/1 ML SQ SCH (08:00)
[2018-06-28] MEDS: GABAPENTIN 100 MG CAP PO SCH (08:39)
[2018-06-28] MEDS ORDERED: REGADENOSON 0.4 MG/5 ML SYR IV ONE (08:49)
[2018-06-28] MEDS ORDERED: LISINOPRIL 10 MG TAB PO SCH (09:00)
[2018-06-28] MEDS ORDERED: HYDROXYCHLOROQUINE 200MG TAB PO SCH (09:00)
[2018-06-28] MEDS ORDERED: HOME MED 1 EA UNK (Omeprazole [Omeprazole] 20 MG) PO SCH (09:00)
[2018-06-28] MEDS ORDERED: FOLIC ACID 1 MG TABLET PO SCH (09:00)
[2018-06-28] MEDS ORDERED: TOFACITINIB CITRATE PO SCH (09:00)
[2018-06-28] MEDS ORDERED: ENOXAPARIN 40 MG/0.4 ML SQ SCH (09:00)
[2018-06-28] MEDS ORDERED: ASPIRIN EC 81 MG TAB PO SCH (09:00)
[2018-06-28 09:02] VITALS: O2SAT 97
[2018-06-28 12:14] VITALS: BP 147/80; TEMP 98.2
--- NOTE | 2018-06-28 12:41 | RAD REPORT ---
EXAM DESCRIPTION: NM - Rest Stress Cardiac Imaging - 06/28/2018 12:28 pm CLINICAL HISTORY: Chest pain COMPARISON: June 2007 TECHNIQUE: The patient was administered approximately 10 mCi of Tc 99m Sestamibi prior to resting SP ECT imaging of the heart. The patient was then administered approximately 30 mCi of Tc 99m Sestamibi following exercise or pharmacologic stress. Multiplanar SPECT images were reviewed. FINDINGS: The end diastolic volume is 78 ml, the end systolic volume is 29 ml, and the ejection frac tion is 62 %. Ventricular volumes and ejection fraction are similar No stress-induced ischemic changes identifiable. Diminished activity along the anterior wall near the apex is not clearly different between rest and stress imaging. Similar finding seen in 2008. IMPRESSION: No stress induced ischemia or other suspicious findings. Small fixed defect anterior wall near the apex is similar to 2008 and believed to be breast attenuati on artifact. Small focus scarring is possible. There has been no interval climate change risk assessor this long time. Ejection fraction and ventricular volumes are normal range.
--- NOTE | 2018-06-28 12:54 | TREADPHA ---
DX: CHEST PAIN Date of Study: 06/28/2018 Ht: 5 1 Wt: 176 lb 0 oz Consulting Physician: ELVIS MEDICATIONS: TYLENOL, ASPIRIN, LIPITOR, NEURONTIN, DEXTROSE HISTORY: 58 YEAR OLD FEMALE HERE FOR CHEST PAIN. HISTORY OF DIABETES, RHEUMATOID ARTHRITIS AND HYPERTENSION. PHYSICIAL EXAMINATION: RESTING B.P.: 134/85 RESTING H.R.: 66 RESTING EKG: NORMAL PROTOCOL: LEXICAN EXERCISE TIME: 3:30 B.P. AT PEAK STRESS: 118/54 IMPRESSION: LEXISCAN STRESS TEST PERFORMED. CARDIOLITE INJECTED PER PROTOCOL. NO ARRHYTHMIAS NOTED. SEE NUCLEAR MEDICINE REPORT. NON-DIAGNOSTIC ELECTROCARDIOGRAM WITH LEXISCAN STRESS.
[2018-06-28] MEDS ORDERED: KETOROLAC 30 MG/ML INJ IV ONE (13:35)
--- NOTE | 2018-06-29 03:22 | DS ---
Date of Discharge: 06/28/2018 Express Clerk: Dr. Hui with Cardiology. Procedures: Cardiac stress test on 06/28/2018, shows no stress-induced ischemia or other suspicious finding. Small fixed defect, anterior wall, near the apex is similar to 2008 and believed to be araceli st attenuation artifact. Small focus scarring is possible. There has been no interval exchange administrator t his long time. Ejection fraction and ventricular volumes are normal. Echocardiogram; EF 65%, mild a ortic regurg and tricuspid regurgitation. Discharge Diagnoses: 1.Chest pain, ACS ruled out. 2.Obesity, BMI 33. 3.Essential hypertension, diet controlled. 4.Diabetes mellitus, type 2, [id number], with hyperglycemia. 5.Rheumatoid arthritis, on DMARDs. 6.Degenerative disk disease. Hospital Course: The patient is a 58-year-old female, comes in with chest pain. The patient was sta rted on chest pain guidelines and cardiac enzymes were obtained, which were negative. ACS was ruled out. Dr. Hui with Cardiology was consulted and the patient was scheduled for stress test, which w as negative. The patient's chest pain resolved. Her lipid panel showed elevated triglycerides at 23 7. The patient does have risk factors including diabetes, hypertension, and now with hypertriglyceri demia. The patient was then cleared for discharge. Her symptoms had resolved. There was no further chest pain. Activity: As tolerated. Diet: Diabetic diet. Medications: As per medication reconciliation list. Followup: Follow up with PCP in 2-3 days. Follow up with cylinder devalver, Dr. Hui, in 2 weeks. Ret urn to ER for worsening condition. Physical Examination: General: Awake, alert, oriented x3. No acute distress. Obese female. CV: S1, S2. No murmurs. Respiratory: Moving air well bilaterally. No wheezing. Gastrointestinal: Abdomen is soft, nontender, nondistended. Positive bowel sounds. Extremities: No clubbing, cyanosis, or edema. Neuro: Nonfocal. SA/MODL Voice ID: [id number] Report ID: [id number]
== END 2018-06-28 14:36 | disposition home or self-care (01) ==
LOC: ER 09:31 → ERHOLD 11:22 → 4TH 13:30
PROVIDERS: ADMIT Family Medicine; ATTEND Family Medicine
DX: R07.9 Chest pain, unspecified (principal); E66.9 Obesity, unspecified; Z68.33 Body mass index [BMI] 33.0-33.9, adult; I10 Essential (primary) hypertension; E11.65 Type 2 diabetes mellitus with hyperglycemia; M06.9 Rheumatoid arthritis, unspecified; Z96.652 Presence of left artificial knee joint; Z98.84 Bariatric surgery status
CPT/HCPCS: 36415; 71045; 78452; 80048; 80061; 81003; 82962; 83880; 84484; 85025; 93005; 93017; 93306; 94760; 99285; A9500; G0378; J1650; J2270; J2785

== ENCOUNTER 2018-09-25 10:38 | Observation (INO) | payer BC, OTHER ==
--- OUTSIDE RECORDS SUMMARY | 2018-09-25 10:40 | XMS REPORT ---
:1960 [facility] Address [address] [place] [address] Dr. Anderson. [address] [place] [address] Care Team Providers Name Role Phone Unavailable Unavailable Unavailable Problems This patient has no known problems. Allergies, Adverse Reactions, Alerts This patient has no known allergies or adverse reactions. Medications This patient has no known medications.
[2018-09-25 12:18] LABS: Absolute Lymphocytes (CBC) 1.4 K/uL (0.7-4.9); Basophils % 0.7 % (0-1.3); Hematocrit 36.7 % (36.0-45.0); Lymphocytes % 15.6 % (15.3-44.8); MPV 7.5 fL (7.6-11.3); Monocytes % 7.7 % (3.3-12.3); Protime INR 0.99; RBC Red Blood Cell Count 4.37 M/uL (3.86-4.86)
--- NOTE | 2018-09-25 12:27 | RAD REPORT ---
EXAM DESCRIPTION: RAD - Chest Single View - 09/25/2018 12:22 pm CLINICAL HISTORY: syncope Chest pain. COMPARISON: Chest Single View dated 06/27/2018; Chest Single View dated 06/05/2017; Chest Single View dated 03/13/2017; Chest Single View dated 04/11/2016 FINDINGS: Portable technique limits examination quality. The lungs are grossly clear. The heart is normal in size. No displaced fractures. IMPRESSION: No acute intrathoracic process suspected.
--- NOTE | 2018-09-25 12:29 | RAD REPORT ---
EXAM DESCRIPTION: RAD - Shoulder Left 2 View - 09/25/2018 12:22 pm CLINICAL HISTORY: PAIN Trauma, left shoulder pain COMPARISON: No comparisons FINDINGS: AC joint and glenohumeral joint arthritic changes are noted. Subacromial outlet narrowing is present suggesting underlying rotator cuff pathology. No acute fracture or dislocation.
[2018-09-25 12:40] LABS: ALT/SGPT 19 U/L (12-78); AST/SGOT 14 U/L (15-37); Albumin 3.1 g/dL (3.4-5.0); Alkaline Phosphatase 138 U/L (45-117); BUN Blood Urea Nitrogen 11 mg/dL (7-18); Bicarbonate 27 mmol/L (21-32); Bilirubin Direct < 0.1 mg/dL (0-0.2); Bilirubin Total 0.3 mg/dL (0.2-1.0); Glucose Level 322 mg/dL (74-106); Magnesium 1.8 mg/dL (1.8-2.4); NT PRO-BNP 291 pg/mL (<125); Protein, Total 7.6 g/dL (6.4-8.2); Sodium Level 138 mmol/L (136-145); Troponin (Emerg Dept Use Only) < 0.02 ng/mL (0.0-0.045)
[2018-09-25] MEDS ORDERED: HYDROCODONE/APAP 5/325 MG TAB ONE (12:41)
[2018-09-25] MEDS ORDERED: KETOROLAC 30 MG/ML INJ ONE (14:22)
--- NOTE | 2018-09-25 15:06 | EKG ---
Test Date: 2018-09-25 Test Time: 11:05:09 Desk Pen Set Assembler: CODY MEASUREMENT RESULTS: Intervals: Rate: 83 OR: 136 QRSD: 84 QT: 366 QTc: 430 Helix: P: 59 OR: 136 QRS: 9 T: 55 INTERPRETIVE STATEMENTS: Normal sinus rhythm Cannot rule out Anterior infarct, age undetermined Abnormal ECG Compared to ECG 06/27/2018 09:29:07 No significant changes Electronically Signed On 09-25-18 15:05:31 CDT by Tarun Edward
--- NOTE | 2018-09-25 15:10 | ER ---
Nurse's Notes [facility] Name: Tamy Martinez Age: 58 yrs Sex: Female : 1960 Arrival Date: 09/25/2018 Time: 10:39 Bed 13 Private MD: Christiano Núñez E Diagnosis: Syncope and collapse Presentation: 09/25 10:49 Presenting complaint: Patient states: i fell earlier and hurt my L chest and :L hj shoulder area and back and it started to get itchy on the R side of my face; reports SOB; reports chest pain, pain is 10/10;. Transition of care: patient was not received from another setting of care. Onset of symptoms was September 25, 2018. Risk Assessment: Do you want to hurt yourself or someone else? Patient reports no desire to harm self or others. Initial Sepsis Screen: Does the patient meet any 2 criteria? No. Patient's initial sepsis screen is negative. Does the patient have a suspected source of infection? No. Patient's initial sepsis screen is negative. Care prior to arrival: None. 10:49 Method Of Arrival: Ambulatory 10:49 Acuity: HODAN 3 11:29 Mechanism of Injury: Fall from standing position. Trauma event details: Injury occurred la1 in the [facility]. Trauma Activation: Not Applicable Physician: ED Physician; Name: ; Notified At: ; Arrived At: Physician: General Surgeon; Name: ; Notified At: ; Arrived At: Physician: Radiology; Name: ; Notified At: ; Arrived At: Physician: Respiratory; Name: ; Notified At: ; Arrived At: Physician: Lab; Name: ; Notified At: ; Arrived At: Historical: - Allergies: 10:51 Iodinated Contrast Media - IV Dye; - Home Meds: 15:34 diclofenac sodium 75 mg Oral TbEC 1 tab [Active]; Flagyl 500 mg Oral tab 1 tab 2 times la1 per day [Active]; folic acid 1 mg Oral tab 1 tab once daily [Active]; gabapentin 300 mg Oral cap 1 cap 2 times daily [Active]; hydroxychloroquine 1.5 tabs once daily Oral tab [Active]; Lantus 100 unit/mL Sub-Q soln [Active]; meloxicam 15 mg Oral tab 1 tab once daily [Active]; methotrexate sodium 2.5 mg Oral tab take 8 tablets PO weekly. [Active]; Methotrexate Sodium Oral [Active]; Mobic Oral [Active]; Novolog Sub-Q [Active]; omeprazole 20 mg Oral TbEC 20 mg daily [Active]; Orencia 125 mg/mL subcutaneous syrg [Active]; tramadol 50 mg Oral tab 1 tab every 6 hours [Active]; Unknown medication for RA [Active]; - PMHx: 10:51 Diabetes - IDDM; Hypertension resolved after lap band; Rheumatoid Arthritis; hj - PSHx: 10:51 Knee surgery; Cholecystectomy; ; Lap band; hj - Immunization history:: Adult Immunizations up to date. - Social history:: Smoking status: Patient/guardian denies using tobacco. - Ebola Screening: : No symptoms or risks identified at this time. Screenin:31 Abuse screen: Denies threats or abuse. Nutritional screening: No deficits noted. la1 Tuberculosis screening: No symptoms or risk factors identified. Fall Risk None identified. Primary Survey: 10:53 NO uncontrolled hemorrhage observed. A: The patient is alert. Airway: patent, No hj supplemental oxygen in use on arrival. Oral cavity: clear, gag reflex present, Trachea midline. Breathing/Chest: Respiratory pattern: regular, Respiratory effort: spontaneous, unlabored, Breath sounds: clear, Chest inspection: symmetrical rise and fall of the chest. Circulation: Cardiac rhythm: sinus rhythm Heart tones present. Pulses: Skin color: Skin temperature: warm, dry. Disability Alert. Exposure/Environment:. Assessment: 11:30 Reassessment: Pt reports that she remembers walking in the house and the next thing she la1 remembers she was laying on the floor. reports pain to left shoulder/collar bone/chest. General: Appears in no apparent distress. Behavior is calm, cooperative. Neuro: Level of Consciousness is awake, alert, obeys commands, Oriented to person, place, time, situation. Cardiovascular: Capillary refill < 3 seconds Patient's skin is warm and dry. Respiratory: Airway is patent Respiratory effort is even, unlabored, Respiratory pattern is regular, symmetrical, Breath sounds are clear bilaterally. GI: Abdomen is round non-distended, Bowel sounds present X 4 quads. : No signs and/or symptoms were reported regarding the genitourinary system. 12:08 Reassessment: Patient appears in no apparent distress at this time. No changes from la1 previously documented assessment. Patient and/or family updated on plan of care and expected duration. Pain level reassessed. Patient is alert, oriented x 3, equal unlabored respirations, skin warm/dry/pink. Pain: Complains of pain in left arm. 13:57 Reassessment: Patient appears in no apparent distress at this time. No changes from la1 previously documented assessment. Patient and/or family updated on plan of care and expected duration. Pain level reassessed. Patient is alert, oriented x 3, equal unlabored respirations, skin warm/dry/pink. 15:28 Reassessment: Patient appears in no apparent distress at this time. No changes from la1 previously documented assessment. Patient and/or family updated on plan of care and expected duration. Pain level reassessed. Patient is alert, oriented x 3, equal unlabored respirations, skin warm/dry/pink. Vital Signs: 10:51 BP 199 / 75; Pulse 85; Resp 18; Temp 97.9(TE); Pulse Ox 97% on R/A; Weight 89.81 kg; hj Height 5 ft. 1 in. (154.94 cm); Pain 10/10; 12:08 BP 188 / 95; Pulse 81; Resp 16; Pulse Ox 98% on R/A; la1 13:57 BP 145 / 77; Pulse 89; Resp 16; Pulse Ox 98% on R/A; la1 15:24 BP 157 / 92; Pulse 71; Resp 17; Pulse Ox 96% on R/A; dh3 10:51 Body Mass Index 37.41 (89.81 kg, 154.94 cm) ED Course: 10:39 Patient arrived in ED. as 10:40 Christiano Núñez MD is Private Physician. as 10:50 Triage completed. hj 10:51 Arm band placed on left wrist. hj 11:29 Paolo Goodson, MAY is Primary Nurse. la1 11:31 Bed in low position. Call light in reach. media monitor on. Pulse ox on. NIBP on. la1 11:55 Missed attempt(s): 20 gauge in right antecubital area. Bleeding controlled, band aid dh3 applied, catheter tip intact. 11:59 EKG done, by behavioral health technician. reviewed by Ildefonso Melgar MD. tc 12:01 Initial lab(s) drawn, by ok, sent to lab. Inserted saline lock: 22 gauge in right hand, 3 using aseptic technique. Blood collected. 12:05 Virgilio Izaguirre MD is Attending Physician. gs 12:24 XRAY Chest (1 view) In Process Unspecified. EDMS 12:24 Shoulder Left (2 View) XRAY In Process Unspecified. EDMS 12:24 X-ray completed. Portable x-ray completed in exam room. Patient tolerated procedure sw well. 14:12 Sling applied to left arm. 3 15:08 Aneta Salazar MD is Hospitalizing Provider. gs 15:19 CT Head Brain wo Cont In Process Unspecified. EDMS 16:17 Patient moved to MRI via wheelchair. em2 16:31 No provider procedures requiring assistance completed. Patient admitted, IV remains in la1 place. Administered Medications: 12:34 Drug: [place] 5 mg-325 mg 1 tabs Route: PO; la1 13:57 Follow up: Response: No adverse reaction; Pain is decreased la1 14:19 Drug: TORadol - Ketorolac 15 mg Route: IVP; Site: left hand; la1 15:35 Follow up: Response: No adverse reaction; Pain is decreased la1 Outcome: 15:09 Decision to Hospitalize by Provider. gs 16:31 Admitted to Tele accompanied by tech, via wheelchair, room 423. la1 16:31 Condition: stable 16:31 Instructed on the need for admit. 16:32 Patient left the ED. la1 Signatures: Dispatcher [employer] EDMS Shana Ramsey Enrique em2 Tila Wetzel, manufacturing recruiter EKG Ttc Paolo Goodson RN RN la1 Elvira Rangel Henry, RN RN hj Herrera, [facility] Virgilio Izaguirre MD MD Corrections: (The following items were deleted from the chart) 10:53 10:51 Pulse 85bpm; Resp 18bpm; Pulse Ox 97% RA; Temp 97.9F Temporal; 89.81 kg; Height 5 hj ft. 1 in.; BMI: 37.4; Pain 10/10; hj 10:56 10:49 Presenting complaint: Patient states: i fell earlier and hurt my L shoulder area hj dn back pain and it started to get itchy on the R side of my face; reports SOB; reports chest pain, pain is 12/20; hj 14:13 14:11 Shoulder immobilizer applied on left shoulder, dh3 dh3
--- NOTE | 2018-09-25 15:10 | EDPHYS ---
Physician Documentation [facility] Name: Tamy Martinez Age: 58 yrs Sex: Female : 1960 Arrival Date: 09/25/2018 Time: 10:39 Bed 13 Private MD: Christiano Núñez E ED Physician Virgilio Izaguirre HPI: 09/25 16:20 This 58 yrs old Female presents to ER via Ambulatory with complaints of gs Syncope. 16:20 The patient has experienced syncope, became unresponsive, collapsed, lost gs consciousness. Onset: The symptoms/episode began/occurred acutely, this morning, today. Duration: This was a single episode. Context: occurred at home, occurred while the patient was walking, Just prior to the episode the patient experienced facial tightness. Associated injury: Left upper extremity: anterior aspect of left shoulder, decreased range of motion. Associated signs and symptoms: Pertinent negatives: abdominal pain, agitation, chest pain, confusion. Current symptoms: pain left shoulder. The patient has not experienced similar symptoms in the past. The patient has not recently seen a physician. Historical: - Allergies: 10:51 Iodinated Contrast Media - IV Dye; - Home Meds: 15:34 diclofenac sodium 75 mg Oral TbEC 1 tab [Active]; Flagyl 500 mg Oral tab 1 tab 2 times la1 per day [Active]; folic acid 1 mg Oral tab 1 tab once daily [Active]; gabapentin 300 mg Oral cap 1 cap 2 times daily [Active]; hydroxychloroquine 1.5 tabs once daily Oral tab [Active]; Lantus 100 unit/mL Sub-Q soln [Active]; meloxicam 15 mg Oral tab 1 tab once daily [Active]; methotrexate sodium 2.5 mg Oral tab take 8 tablets PO weekly. [Active]; Methotrexate Sodium Oral [Active]; Mobic Oral [Active]; Novolog Sub-Q [Active]; omeprazole 20 mg Oral TbEC 20 mg daily [Active]; Orencia 125 mg/mL subcutaneous syrg [Active]; tramadol 50 mg Oral tab 1 tab every 6 hours [Active]; Unknown medication for RA [Active]; - PMHx: 10:51 Diabetes - IDDM; Hypertension resolved after lap band; Rheumatoid Arthritis; hj - PSHx: 10:51 Knee surgery; Cholecystectomy; ; Lap band; hj - Immunization history:: Adult Immunizations up to date. - Social history:: Smoking status: Patient/guardian denies using tobacco. - Ebola Screening: : No symptoms or risks identified at this time. ROS: 16:20 All other systems are negative. gs Exam: 16:20 Head/Face: Normocephalic, atraumatic. Eyes: Pupils equal round and reactive to light, gs extra-ocular motions intact. Lids and lashes normal. Conjunctiva and sclera are non-icteric and not injected. Cornea within normal limits. Periorbital areas with no swelling, redness, or edema. ENT: Nares patent. No nasal discharge, no septal abnormalities noted. Tympanic membranes are normal and external auditory canals are clear. Oropharynx with no redness, swelling, or masses, exudates, or evidence of obstruction, uvula midline. Mucous membranes moist. Neck: Trachea midline, no thyromegaly or masses palpated, and no cervical lymphadenopathy. Supple, full range of motion without nuchal rigidity, or vertebral point tenderness. No Meningismus. Chest/axilla: Normal chest wall appearance and motion. Nontender with no deformity. No lesions are appreciated. Cardiovascular: Regular rate and rhythm with a normal S1 and S2. No gallops, murmurs, or rubs. Normal PMI, no JVD. No pulse deficits. Respiratory: Lungs have equal breath sounds bilaterally, clear to auscultation and percussion. No rales, rhonchi or wheezes noted. No increased work of breathing, no retractions or nasal flaring. Abdomen/GI: Soft, non-tender, with normal bowel sounds. No distension or tympany. No guarding or rebound. No evidence of tenderness throughout. Back: No spinal tenderness. No costovertebral tenderness. Full range of motion. Skin: Warm, dry with normal turgor. Normal color with no rashes, no lesions, and no evidence of cellulitis. Neuro: Awake and alert, GCS 15, oriented to person, place, time, and situation. Cranial nerves II-XII grossly intact. Motor strength 5/5 in all extremities. Sensory grossly intact. Cerebellar exam normal. Normal gait. 16:20 ECG was reviewed by the Attending Physician. 16:20 Musculoskeletal/extremity: Extremities: noted in the anterior aspect of left shoulder: decreased ROM, pain, ROM: limited active range of motion due to pain, limited passive range of motion due to pain, Pulses: are normal with no appreciated deficits, Sensation intact. Vital Signs: 10:51 BP 199 / 75; Pulse 85; Resp 18; Temp 97.9(TE); Pulse Ox 97% on R/A; Weight 89.81 kg; hj Height 5 ft. 1 in. (154.94 cm); Pain 10/10; 12:08 BP 188 / 95; Pulse 81; Resp 16; Pulse Ox 98% on R/A; la1 13:57 BP 145 / 77; Pulse 89; Resp 16; Pulse Ox 98% on R/A; la1 15:24 BP 157 / 92; Pulse 71; Resp 17; Pulse Ox 96% on R/A; dh3 10:51 Body Mass Index 37.41 (89.81 kg, 154.94 cm) hj MDM: 12:23 Patient medically screened. gs 16:20 Differential Diagnosis: cardiac arrhythmia, cerebrovascular accident, idiopathic gs syncope, vasovagal episode, fracture. Data reviewed: vital signs, nurses notes, lab test result(s), EKG, radiologic studies. Counseling: I had a detailed discussion with the patient and/or guardian regarding: the historical points, exam findings, and any diagnostic results supporting the discharge/admit diagnosis. Response to treatment: the patient's symptoms have markedly improved after treatment, and as a result, I will admit patient. 09/25 11:56 Order name: Basic Metabolic Panel wy09/25 11:56 Order name: CBC with Diff 09/25 11:56 Order name: LFT's; Complete Time: 13:56 09/25 11:57 Order name: Magnesium; Complete Time: 13:56 09/25 11:57 Order name: NT PRO-BNP; Complete Time: 13:56 wy09/25 11:57 Order name: PT-INR; Complete Time: 13:56 wy09/25 11:57 Order name: Troponin (emerg Dept Use Only); Complete Time: 13:56 09/25 11:57 Order name: XRAY Chest (1 view); Complete Time: 13:56 wy09/25 11:58 Order name: Basic Metabolic Panel; Complete Time: 13:56 EDMS 09/25 11:58 Order name: CBC with Automated Diff; Complete Time: 13:56 EDMS 09/25 12:08 Order name: Shoulder Left (2 View) XRAY; Complete Time: 13:56 la1 09/25 15:05 Order name: CT Head Brain wo Cont; Complete Time: 16:15 gs 09/25 15:17 Order name: Carotid Artery Bilateral; Complete Time: 16:15 EDMS 09/25 15:17 Order name: Echo with Doppler EDMS 09/25 10:52 Order name: EKG; Complete Time: 10:53 hj 09/25 11:57 Order name: Cardiac monitoring; Complete Time: 12:05 la1 09/25 11:57 Order name: EKG - Nurse/Tech; Complete Time: 11:57 la1 09/25 11:57 Order name: IV Saline Lock; Complete Time: 12:05 la1 09/25 11:57 Order name: Labs collected and sent; Complete Time: 12:05 la1 09/25 11:57 Order name: O2 Per Protocol; Complete Time: 12:05 la1 09/25 11:57 Order name: O2 Sat Monitoring; Complete Time: 12:05 la1 09/25 14:04 Order name: Sling; Complete Time: 14:12 la1 09/25 15:17 Order name: Shoulder Left Wo Cont EDMS 09/25 15:17 Order name: Shoulder Rt Wo Cont EDMS EC:20 Rate is 83 beats/min. Rhythm is regular. NM interval is normal. QRS interval is normal. gs T waves are Normal. No ST changes noted. Clinical impression: NSR w/ Non-specific ST/T Changes. Interpreted by me. Administered Medications: 12:34 Drug: [place] 5 mg-325 mg 1 tabs Route: PO; la1 13:57 Follow up: Response: No adverse reaction; Pain is decreased la1 14:19 Drug: TORadol - Ketorolac 15 mg Route: IVP; Site: left hand; la1 15:35 Follow up: Response: No adverse reaction; Pain is decreased la1 Disposition: 09/25/18 15:09 Hospitalization ordered by Aneta Salazar for Observation. Preliminary diagnosis is Syncope and collapse. - Bed requested for Telemetry/MedSurg (observation). - Status is Observation. la1 - Condition is Stable. - Problem is new. - Symptoms have improved. UTI on Admission? No Signatures: Dispatcher [employer] EDMS Monica Wise Paolo Goodson RN RN la1 Ankur Day RN RN hj Starr, Gregory, MD MD gs Corrections: (The following items were deleted from the chart) 15:25 15:09 Hospitalization Ordered by Aneta Salazar MD for Observation. Preliminary bd diagnosis is Syncope and collapse. Bed requested for Telemetry/MedSurg (observation). Status is Observation. Condition is Stable. Problem is new. Symptoms have improved. UTI on Admission? No. gs 16:32 15:25 09/25/2018 15:09 Hospitalization Ordered by Aneta Salazar MD for Observation. la1 Preliminary diagnosis is Syncope and collapse. Bed requested for Telemetry/MedSurg (observation). Status is Observation. Condition is Stable. Problem is new. Symptoms have improved. UTI on Admission? No. bd
--- NOTE | 2018-09-25 15:28 | RAD REPORT ---
EXAM DESCRIPTION: CT - Head Brain Wo Cont - 09/25/2018 3:17 pm CLINICAL HISTORY: SYNCOPE Headache, drowsiness COMPARISON: Head Brain Wo Cont dated 07/23/2016; HEAD BRAIN W O CONTRAST dated 03/24/2015 TECHNIQUE: All CT scans are performed using dose optimization technique as appropriate and may inclu de automated exposure control or mA/KV adjustment according to patient size. FINDINGS: No intracranial hemorrhage, hydrocephalus or extra-axial fluid collection.No areas of brai n edema or evidence of midline shift. The paranasal sinuses and mastoids are clear. The calvarium is intact. Right vertebral atherosclerosi s. IMPRESSION: No acute intracranial abnormality.
--- NOTE | 2018-09-25 16:10 | RAD REPORT ---
EXAM DESCRIPTION: - CP - 09/25/2018 3:58 pm CLINICAL HISTORY: syncopal Headache, drowsiness COMPARISON: <Comparisons> TECHNIQUE: Real-time sonographic evaluation of both carotid systems was performed. Doppler interroga tion was performed with waveform tracing bilaterally. FINDINGS: Normal high resistance waveforms are noted in both external carotid arteries. The common c arotid arteries and internal carotid arteries show normal low resistance waveforms. Moderate multifocal hard plaquing is seen throughout both carotid systems. Visually, there is stenosi s of the right carotid bulb estimated at 50% by NASCET criteria. Peak systolic and end diastolic [place] values and the ICA/CCA ratios are in the non-hemodynamically significant range. Antegrade flow seen in both vertebral arteries. IMPRESSION: Moderate multifocal hard plaquing throughout both carotid systems is noted. Approximately 50% stenosis is suspected visually proximal right ICA based on NASCET criteria. A hemod ynamically significant stenosis is not present.
--- NOTE | 2018-09-25 16:52 | P.HP ---
Certification for Inpatient Patient admitted to: Observation With expected LOS: <2 Midnights Patient will require the following post-hospital care: None Practitioner: I am a practitioner with admitting privileges, knowledge of patient current condition, hospital course, and medical plan of care. Services: Services provided to patient in accordance with Admission requirements found in Title 42 Section 412.3 of the Code of Federal Regulations Patient History Date of Service: 09/25/18 Primary Care Provider: Dr Minor Reason for admission: Syncopal Episode History of Present Illness: This is a 58-year-old female with significant past medical history of hypertension, diabetes, obesity, ALEX who presented to the ED after having sudden syncopal episode this morning. Patient stated that she was walking in the hallway and had a syncopal episode and collapse and does not remember anything after that. Patient stated that she has not been having any similar episodes in the past. This is a 1st time she had something like this. Patient did not hit her head hit her shoulder and was complaining of having shoulder pain post fall. Patient was brought over to the ER for further workup In the ER patient was seen and examined. Lab work and imaging was done which was all within normal limits. However patient was admitted to the hospital for observation due to syncopal episode and thought of collapse. Allergies Iodinated Contrast- Oral and IV Dye [Iodinated Contrast Media - Oral and] Allergy (Severe, Verified 03/13/17 21:21) Unknown iodine [Iodine] Allergy (Severe, Verified 04/11/16 14:05) Itching and swelling Home Medications: Folic Acid [Folic Acid*] 1 mg PO DAILY 03/21/13 Gabapentin [Neurontin*] 100 mg PO BID 03/13/17 Hydroxychloroquine [Plaquenil*] 300 mg PO DAILY 03/13/17 Insulin Aspart [Novolog Flexpen] 12 unit SQ TIDWM 03/13/17 Insulin Glargine,Hum.rec.anlog [Lantus Solostar] 36 units SQ BEDTIME 03/13/17 Methotrexate [Methotrexate*] 8 tab PO Q7D 03/13/17 Omeprazole 20 mg PO DAILY 03/13/17 Metoprolol Succinate [Toprol Xl*] 12.5 mg PO [id number] #30 tab 03/14/17 Ibuprofen 1 tab PO BID PRN 06/27/18 Meloxicam 1 tab PO DAILY PRN 06/27/18 Tofacitinib Citrate [Xeljanz Xr] 1 tab PO DAILY 06/27/18 Ezetimibe [Zetia*] 10 mg PO DAILY #30 tab 06/28/18 - Past Medical/Surgical History Diabetic: Yes -: DM -: HTN -: Rheuamtoid Arthritis -: Degenerative disk and joint disease of the spine -: Lap band 2009 -: x2 -: Left knee replacement -: Cholecystectomy Psychosocial/ Personal History: She is , has 2 children. She does not work. - Family History Father -: Hypertension Notes: brother had [place] at 30; Mother -: Cancer Notes: esophageal - Social History Alcohol use: No CD- Drugs: No Caffeine use: No Review of Systems 10-point ROS is otherwise unremarkable Physical Examination - Physical Exam General: Alert, In no apparent distress HEENT: Atraumatic, PERRLA, Mucous membr. moist/pink, EOMI, Sclerae nonicteric Neck: Supple, 2+ carotid pulse no bruit, No LAD, Without JVD or thyroid abnormality Respiratory: Clear to auscultation bilaterally, Normal air movement Cardiovascular: Regular rate/rhythm, Normal S1 S2 Gastrointestinal: Normal bowel sounds, No tenderness Musculoskeletal: No tenderness Integumentary: No rashes Neurological: Normal gait, Normal speech, Normal strength at 5/5 x4 extr, Normal tone, Normal affect Lymphatics: No axilla or inguinal lymphadenopathy - Studies Laboratory Data (last 24 hrs) 09/25/18 12:01: PT 11.7, INR 0.99 09/25/18 12:01: WBC 9.1, Hgb 12.5, Hct 36.7, Plt Count 288 09/25/18 12:01: Sodium 138, Potassium 4.0, BUN 11, Creatinine 1.01, Glucose 322 H, Magnesium 1.8, Total Bilirubin 0.3, AST 14 L, ALT 19, Alkaline Phosphatase 138 H Assessment and Plan - Problems (Diagnosis) (1) Syncope Current Visit: No Status: Acute Plan: Syncopal episode with collapse -etiology unknown at this time -carotid Dopplers with 50% stenosis no occlusion noted -head CT negative at this time -shoulder x-ray negative at this time. MRI of the shoulder pending at this time -get PT OT consulted as well. Qualifiers: Syncope type: unspecified Qualified Code(s): R55 - Syncope and collapse (2) Diabetes mellitus Onset Date: 03/15/17 Current Visit: No Status: Chronic Plan: Insulin sliding scale and Accu-Cheks (3) Hypertensive disorder, systemic arterial Current Visit: No Status: Chronic Plan: Blood pressure within normal limits. Currently stable will restart home medication (4) Rheumatoid arthritis RA Onset Date: 03/15/17 Current Visit: No Status: Chronic Plan: Stable at this time (5) Obstructive sleep apnea Current Visit: No Status: Suspected - Plan Will admit patient to [facility] floor for observation for syncopal episode. Will follow up with test results and ultrasound results. Discharge Plan: Home Plan to discharge in: 48 Hours - Advance Directives Does patient have a Living Will: Yes Does patient have a Durable POA for Healthcare: No - Code Status/Comfort Care Code Status Assessed: Yes Critical Care: No
[2018-09-25] MEDS ORDERED: TRAMADOL HCL 50 MG TAB PO PRN (17:54)
[2018-09-25] MEDS ORDERED: DIPHENHYDRAMINE 25 MG TAB/CAP PO ONE (17:57)
--- NOTE | 2018-09-25 18:15 | RAD REPORT ---
EXAM DESCRIPTION: MRI - Shoulder Left Wo Cont - 09/25/2018 5:14 pm CLINICAL HISTORY: Fall Trauma, fall, or shoulder pain COMPARISON: <Comparisons> FINDINGS: The AC joint demonstrates mild osseous and capsular hypertrophy. The acromion process is m ildly concave. The rotator cuff demonstrates thinning of the supraspinatus tendon with significant undersurface tear ing of the critical zone. A full-thickness tear or tendon retraction is not evident. The subscapularis appears intact. The biceps tendon lies within the bicipital groove. Anterior inferior glenoid labrum demonstrates abnormal signal likely indicating tear. No aggressive bony lesion. No fracture or dislocation. No joint effusion is present. IMPRESSION: Large undersurface tear of the critical zone of the supraspinatus tendon is suspected. N o full-thickness tendon tear or retraction seen. Chronic tear of the anterior inferior aspect of the glenoid labrum suspected.
[2018-09-25] MEDS: INSULIN -REGULAR HUMAN 50 UNIT/0.5 ML ML SQ SCH ×2 (18:16→21:26)
[2018-09-25] MEDS: NA CHLORIDE 0.9% 1,000 ML IV SCH (18:18)
--- NOTE | 2018-09-25 18:29 | RAD REPORT ---
EXAM DESCRIPTION: MRI - Shoulder Rt Wo Cont - 09/25/2018 5:23 pm CLINICAL HISTORY: Fall Fall, trauma, shoulder pain COMPARISON: <Comparisons> FINDINGS: The AC joint demonstrates mild osseous and capsular hypertrophy. The acromion process is m ildly concave. The rotator cuff demonstrates mildly elevated T2/IR signal compatible with tendinitis. No evidence of full-thickness tear or tendon retraction. The subscapularis appears intact. The biceps tendon lies within the bicipital groove. A Barto comple x variant may be present. The glenoid labrum is preserved. There is no evidence of a labral tear. No aggressive bony lesion. No fracture or dislocation. No joint effusion is present. IMPRESSION: Mild rotator cuff tendinitis is seen.
[2018-09-25 18:38] VITALS: BMI 37.4
[2018-09-25] MEDS ORDERED: DIPHENHYDRAMINE 12.5MG/5ML LIQ PO ONE (19:00)
[2018-09-25 20:00] LABS: Urine Appearance CLEAR; Urine Bilirubin NEGATIVE (NEG); Urine Blood TRACE (NEG); Urine Color YELLOW; Urine Glucose 3+ (NEG); Urine Protein 1+ (NEG); Urine Specific Gravity 1.025 (1.005-1.030); Urine Urobilinogen 0.2 mg/dL (0.2-1.0)
[2018-09-25 20:10] LABS: Urine Microscopic Reflex ORDER UMIC
[2018-09-25 20:24] LABS: Urine Bacteria <20 /HPF (<20); Urine Culture Reflex Order NOT NEEDED; Urine RBC <5 /HPF (NONE SEEN)
[2018-09-25] MEDS: MORPHINE 4 MG/ML SYR IV PRN (22:19)
[2018-09-26] MEDS: MORPHINE 4 MG/ML SYR IV PRN ×4 (04:18→20:32)
[2018-09-26] MEDS: NA CHLORIDE 0.9% 1,000 ML IV SCH ×2 (04:18→15:09)
[2018-09-26 04:30] LABS: Absolute Lymphocytes (CBC) 1.9 K/uL (0.7-4.9); Basophils % 0.5 % (0-1.3); Eosinophils % 3.5 % (0-4.4); Lymphocytes % 28.1 % (15.3-44.8); MPV 7.4 fL (7.6-11.3); Monocytes % 9.4 % (3.3-12.3); RBC Red Blood Cell Count 4.28 M/uL (3.86-4.86)
[2018-09-26 04:40] LABS: Albumin 2.9 g/dL (3.4-5.0); Bilirubin Total 0.3 mg/dL (0.2-1.0); Phosphorus 3.7 mg/dL (2.5-4.9); Potassium 3.8 mmol/L (3.5-5.1); Protein, Total 6.7 g/dL (6.4-8.2)
[2018-09-26] MEDS ORDERED: POTASSIUM CL SA 10 MEQ TAB PO ONE (05:33)
[2018-09-26] MEDS: INSULIN -REGULAR HUMAN 50 UNIT/0.5 ML ML SQ SCH ×5 (08:04→20:31)
--- NOTE | 2018-09-26 10:28 | ECHO ---
HEIGHT: 5 ft 1 in WEIGHT: 198 lb 0 oz DATE OF STUDY: 09/26/[address]: Aneta Salazar MD 2-DIMENSIONAL: YES M.MODE: YES DOPPLER: YES COLOR FLOW: YES TDS: NO PORTABLE: NO DEFINITY: NO BUBBLE STUDY: NO DIAGNOSIS: SYNCOPAL CARDIAC HISTORY: CATHERIZATION: NO SURGERY: NO PROSTHETIC VALVE: NO PACEMAKER: NO MEASUREMENTS (cm) DIASTOLIC (NORMALS) SYSTOLIC (NORMALS) IVSd 1.3 (0.6-1.2) LA Diam 3.3 (1.9-4.0) LVEF 53% LVIDd 3.8 (3.5-5.7) LVIDs 2.8 (2.0-3.5) %FS 27% LVPWd 1.2 (0.6-1.2) Ao Diam 2.8 (2.0-3.7) 2 DIMENSIONAL ASSESSMENT: RIGHT ATRIUM: NORMAL LEFT ATRIUM: NORMAL RIGHT VENTRICLE: NORMAL LEFT VENTRICLE: NORMAL TRICUSPID VALVE: NORMAL MITRAL VALVE: NORMAL PULMONIC VALVE: NORMAL AORTIC VALVE: NORMAL PERICARDIAL EFFUSION: NONE AORTIC ROOT: NORMAL LEFT VENTRICULAR WALL MOTION: NORMAL. DOPPLER/COLOR FLOW: TRACE OF TRICUSPID REGURGITATION. NORMAL RIGHT VENTRICULAR SYSTOLIC PRESSURE. COMMENTS: NORMAL 2D ECHO. TRACE OF TRICUSPID REGURGITATION. TECHNOLOGIST: LENA BALL
--- NOTE | 2018-09-26 16:39 | P.PN ---
Subjective Date of Service: 09/26/18 Primary Care Provider: Dr Minor Chief Complaint: Syncopal Episode Review of Systems 10-point ROS is otherwise unremarkable Physical Examination - Vital Signs Temperature: 97.2 F Blood Pressure: 176/78 Pulse: 76 Respirations: 16 Pulse Ox (%): 98 - Physical Exam General: Alert, In no apparent distress HEENT: Atraumatic, PERRLA, EOMI Neck: Supple, JVD not distended Respiratory: Clear to auscultation bilaterally, Normal air movement Cardiovascular: Regular rate/rhythm, Normal S1 S2 Gastrointestinal: Normal bowel sounds, No tenderness Musculoskeletal: No tenderness Integumentary: No rashes Neurological: Normal speech, Normal tone, Normal affect Lymphatics: No axilla or inguinal lymphadenopathy - Studies Medications List Reviewed: Yes Assessment And Plan - Current Problems (Diagnosis) (1) Syncope Current Visit: No Status: Acute Plan: Syncopal episode with complete collapse -carotid Dopplers with 50% stenosis no occlusion noted -head CT negative at this time -shoulder x-ray negative at this time. MRI of the shoulder left with Supraspinatous tear and Right with tendinitis -Consulted Orthopedics. Reccs thorax CT -PT OT consulted as well. Qualifiers: Syncope type: unspecified Qualified Code(s): R55 - Syncope and collapse (2) Diabetes mellitus Onset Date: 03/15/17 Current Visit: No Status: Chronic Plan: Insulin sliding scale and Accu-Cheks (3) Hypertensive disorder, systemic arterial Current Visit: No Status: Chronic Plan: Blood pressure within normal limits. Currently stable will restart home medication (4) Rheumatoid arthritis RA Onset Date: 03/15/17 Current Visit: No Status: Chronic Plan: Stable at this time (5) Obstructive sleep apnea Current Visit: No Status: Suspected - Plan Will admit patient to [facility] floor for observation for syncopal episode. Will follow up with test results and ultrasound results.
--- NOTE | 2018-09-26 18:01 | RAD REPORT ---
EXAM DESCRIPTION: CT - Thorax Wo Con CLINICAL HISTORY: Chest pain Fall after pain COMPARISON: <Comparisons> FINDINGS: Scattered subsegmental atelectasis is present in both lungs. A calcified granuloma is note d in the anterior left upper lobe. No pleural thickening or pleural effusion. No pneumothorax. No axillary, mediastinal or hilar adenopathy. No acute fractures are identified. Gastric banding noted. Cholecystectomy clips present. All CT scans are performed using dose optimization technique as appropriate and may include automated exposure control or mA/KV adjustment according to patient size. IMPRESSION: No acute intrathoracic abnormality is detected.
[2018-09-27] MEDS: NA CHLORIDE 0.9% 1,000 ML IV SCH ×2 (01:01→10:30)
--- NOTE | 2018-09-27 02:07 | CON ---
Date of Consultation: 09/26/2018 History Of Present Illness: This is my first time I am seeing this patient to my knowledge. She is a 58-year-old female who unfortunately fell yesterday from a syncopal episode. On review of her hist ory, she states that she awakened with pain in both of her shoulders, perhaps more so on the left. B ecause of her complaints of pain in the shoulder, she underwent 2 MRIs, 1 of the right shoulder which demonstrated perhaps right-sided supraspinatus tendinitis. MRI of the left side demonstrates perhap s an undersurface tear of the rotator cuff without retraction. Neither of which demonstrate any frac ture, dislocation, or significant acute bony injury. Physical Examination: She has her left upper extremity in a sling. Range of motion including internal and external rotatio n as well as flexion and extension does not cause any pain at the AC joint or the shoulder or deltoid proper. She denies any numbness or tingling in her left upper extremity. On physical examination o f her back, the upper back and the parascapular region, where she complains of the majority of her pa in, this also was where she complains of pain with movement of the shoulder, but is most severe with direct palpation in this area. Assessment And Plan: I spoke with Dr. Salazar, who is the hospitalist taking care of her, and at this point, I do not think that there is any radiographic or physical examination finding which would acco unt for the amount of pain that she is having in her back. If it was generated by shoulder pathology , there is some concern that she may have a fractured rib or other visceral injury and they have not obtained a CT scan of her chest, however, they will do so. There is a possibility we may be able to see a fractured rib or perhaps floor contusion. However, she states that she would complete this and at least this would rule out any significant visceral pathology. This has been discussed with Dr. Salazar . /EVI Voice ID: [id number] Report ID: [id number]
[2018-09-27 06:01] LABS: Absolute Lymphocytes (CBC) 1.6 K/uL (0.7-4.9); Basophils % 0.6 % (0-1.3); Hematocrit 36.2 % (36.0-45.0); Lymphocytes % 20.1 % (15.3-44.8); MPV 7.2 fL (7.6-11.3); Monocytes % 9.1 % (3.3-12.3)
[2018-09-27] MEDS: MORPHINE 4 MG/ML SYR IV PRN ×4 (06:01→20:20)
[2018-09-27 06:30] LABS: Albumin 2.9 g/dL (3.4-5.0); Bilirubin Total 0.7 mg/dL (0.2-1.0); Potassium 4.3 mmol/L (3.5-5.1); Protein, Total 7.2 g/dL (6.4-8.2)
[2018-09-27] MEDS: INSULIN -REGULAR HUMAN 50 UNIT/0.5 ML ML SQ SCH ×4 (08:01→20:21)
[2018-09-27 09:30] VITALS: O2SAT 94
--- NOTE | 2018-09-27 14:45 | P.SSS ---
Patient History Date of Service: 09/27/18 Primary Care Provider: Dr Minor Reason for admission: Syncopal Episode History of Present Illness: This is a 58-year-old female with significant past medical history of hypertension, diabetes, obesity, ALEX who presented to the ED after having sudden syncopal episode this morning. Patient stated that she was walking in the hallway and had a syncopal episode and collapse and does not remember anything after that. Patient stated that she has not been having any similar episodes in the past. This is a 1st time she had something like this. Patient did not hit her head hit her shoulder and was complaining of having shoulder pain post fall. Patient was brought over to the ER for further workup In the ER patient was seen and examined. Lab work and imaging was done which was all within normal limits. However patient was admitted to the hospital for observation due to syncopal episode and thought of collapse. Allergies Iodinated Contrast- Oral and IV Dye [Iodinated Contrast Media - Oral and] Allergy (Severe, Verified 03/13/17 21:21) Unknown iodine [Iodine] Allergy (Severe, Verified 04/11/16 14:05) Itching and swelling Home Medications: Folic Acid [Folic Acid*] 1 mg PO DAILY 03/21/13 Gabapentin [Neurontin*] 300 mg PO BID 03/13/17 Insulin Aspart [Novolog Flexpen] See Protocol SQ TIDWM 03/13/17 Insulin Glargine,Hum.rec.anlog [Lantus Solostar] 12 units SQ BEDTIME 03/13/17 Methotrexate [Methotrexate*] 8 tab PO Q7D 03/13/17 Meloxicam 1 tab PO DAILY PRN 06/27/18 Tramadol HCl [Ultram] 50 mg PO Q6H PRN 09/25/18 traMADol HCL [Ultram*] 50 mg PO Q6H PRN #30 tab 09/27/18 - Past Medical/Surgical History Has patient received pneumonia vaccine in the past: Yes Diabetic: Yes -: DM -: HTN -: Rheuamtoid Arthritis -: Degenerative disk and joint disease of the spine -: Lap band 2009 -: x2 -: Left knee replacement -: Cholecystectomy -: right knee replacement Psychosocial/ Personal History: She is , has 2 children. She does not work. - Family History Father -: Hypertension Notes: brother had [place] at 30; Mother -: Cancer Notes: esophageal - Social History Smoking Status: Never smoker Alcohol use: No CD- Drugs: No Caffeine use: No Place of Residence: Home Review of Systems 10-point ROS is otherwise unremarkable Physical Examination - Vital Signs Temperature: 97.3 F Blood Pressure: 153/67 Pulse: 81 Respirations: 20 Pulse Ox (%): 95 - Physical Exam General: Alert, In no apparent distress HEENT: Atraumatic, PERRLA, Mucous membr. moist/pink, EOMI, Sclerae nonicteric Neck: Supple, 2+ carotid pulse no bruit, No LAD, Without JVD or thyroid abnormality Respiratory: Clear to auscultation bilaterally, Normal air movement Cardiovascular: Regular rate/rhythm, Normal S1 S2 Gastrointestinal: Normal bowel sounds, No tenderness Musculoskeletal: No tenderness Integumentary: No rashes Neurological: Normal gait, Normal speech, Normal strength at 5/5 x4 extr, Normal tone, Normal affect Lymphatics: No axilla or inguinal lymphadenopathy - Diagnosis (Problem(s)) (1) Syncope Current Visit: No Status: Acute Plan: Syncopal episode with complete collapse -carotid Dopplers with 50% stenosis no occlusion noted -head CT negative at this time -shoulder x-ray negative at this time. MRI of the shoulder left with Supraspinatous tear and Right with tendinitis -Consulted Orthopedics. Reccs Oupt OT -DC home Qualifiers: Syncope type: unspecified Qualified Code(s): R55 - Syncope and collapse (2) Diabetes mellitus Onset Date: 03/15/17 Current Visit: No Status: Chronic (3) Hypertensive disorder, systemic arterial Current Visit: No Status: Chronic (4) Rheumatoid arthritis RA Onset Date: 03/15/17 Current Visit: No Status: Chronic (5) Obstructive sleep apnea Current Visit: No Status: Suspected - Disposition Disposition: ROUTINE DISCHARGE Condition: GOOD Diet: Regular Activity: Ad anne
--- NOTE | 2018-09-27 18:07 | P.CNS ---
Date of Consult: 09/27/18 Reason for Consult: painful shoulder chest and back subsequent to syncopal fall Requesting Physician: Aenta Salazar Primary Care Provider: Dr Minor Chief Complaint: Syncopal Episode History of Present Illness: This 58-year-old IDDM female describes getting up from a chair and taking a few steps before falling backward with a syncopal episode to impact her back on a hard floor surface. She describes awakening on the floor but denies impact to her head. She was brought by ambulance to [facility] ED. She was admitted for evaluation of syncopal episodes and relatively severe complaints of bilateral shoulder pain and back pain. She was seen in consultation by Dr. Redd who noted the rather innocuous findings on bilateral shoulder MRIs, and suggested CT scan of the chest to rule out rib fractures, etc.. The patient has requested a second orthopedic opinion. Allergies Iodinated Contrast- Oral and IV Dye [Iodinated Contrast Media - Oral and] Allergy (Severe, Verified 03/13/17 21:21) Unknown iodine [Iodine] Allergy (Severe, Verified 04/11/16 14:05) Itching and swelling Home Medications: Folic Acid [Folic Acid*] 1 mg PO DAILY 03/21/13 Gabapentin [Neurontin*] 300 mg PO BID 03/13/17 Insulin Aspart [Novolog Flexpen] See Protocol SQ TIDWM 03/13/17 Insulin Glargine,Hum.rec.anlog [Lantus Solostar] 12 units SQ BEDTIME 03/13/17 Methotrexate [Methotrexate*] 8 tab PO Q7D 03/13/17 Meloxicam 1 tab PO DAILY PRN 06/27/18 Tramadol HCl [Ultram] 50 mg PO Q6H PRN 09/25/18 traMADol HCL [Ultram*] 50 mg PO Q6H PRN #30 tab 09/27/18 - Past Medical/Surgical History Diabetic: Yes -: DM -: HTN -: Rheuamtoid Arthritis -: Degenerative disk and joint disease of the spine -: Lap band 2009 -: x2 -: Left knee replacement -: Cholecystectomy -: right knee replacement Psychosocial/ Personal History: She is , has 2 children. She does not work. - Family History Father Medical History: Hypertension Notes: brother had [place] at 30; Mother Medical History: Cancer Notes: esophageal - Social History Smoking Status: Never smoker Alcohol use: No CD- Drugs: No Caffeine use: No Place of Residence: Home Review of Systems 10-point ROS is otherwise unremarkable Physical Examination Temp Pulse Resp BP Pulse Ox 97.6 F 71 18 181/72 H 98 09/27/18 16:00 09/27/18 16:00 09/27/18 16:00 09/27/18 16:00 09/27/18 16:00 General: Alert, Oriented x3, Cooperative, Mild distress HEENT: Atraumatic, Normocephalic, PERRLA Neck: Supple (this patient denies neck pain and demonstrates a supple range of motion.) Respiratory: Normal air movement Cardiovascular: Normal pulses, Regular rate/rhythm Capillary refill: Brisk Gastrointestinal: Normal bowel sounds, Soft and benign Musculoskeletal: Tenderness (Pain just to the left of the sternum is tender to palpation. The patient also has tenderness to palpation of rhomboid muscle medial to the left scapula. pain also involves the deltoid distribution over the left shoulder down to the elbow with symptoms into the forearm of discomfort it's hard to describe. Several of 19 ambulance rides to the ED over the past 6 years involve shoulder arm and leg pains sometimes described as tingling. The patient demonstratesleft shoulder abduction and forward flexion to 90. At 45 abduction she rotates the left upper extremity 50in both external and internal rotation. Impingement sign is positive. The patient denies numbness and tingling but painful symptoms radiate down into the forearm two th[address] way to the wrist. Neurovascular exam of the hand is intact.) Integumentary: No rashes, No significant lesion, No erythema, No warmth Neurological: Normal speech, Sensation intact, Normal affect External genitalia: Deferred Rectal: Deferred Laboratory evaluations indicated hemoglobin 12.5; normal coagulation studies; serum glucose ranged from 188 to 230 Imagings Data: left shoulder x-ray showed before meals joint and glenohumeral joint arthritic changes and narrowing of the subacromial space to suggest underlying rotator cuff pathology. There were no acute fractures or dislocations.: Head CT showed no acute intracranial abnormalities. Left shoulder MRI showed a large undersurface tear of critical zone of supraspinatous tendon, but no full-thickness tear or retraction was seen. There was a cotton chronic tear of the anterior inferior aspect of the glenoid labrum suspected. Right shoulder MRI showed mild rotator cuff tendinitis again with no full- thickness tear or retraction. Chest CT showed no acute intrathoracic abnormality detected. 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 (2) Pain in left shoulder Onset Date: ~09/25/18 Current Visit: Yes Status: Acute Plan: The patient has had multiple visits to the ED with complaints of shoulder pain, right more times than left. Conservative outpatient evaluation is appropriate with serial exams and diagnostic/therapeutic injections as indicated along with outpatient physical therapy for stabilization of rotator cuff musculature. Some aspects of this patient's pain syndrome suggests radicular symptoms extending into the left forearm that could warrant further imaging studies. Plan is for arm sling support LUE. OT to see the patient and instruct in Codman 's exercises emphasizing circumduction motion and stabilization of the rotator cuff musculature. Outpatient occupational therapy was recommended during inpatient OT evaluation.
[2018-09-27 21:11] VITALS: BP 150/65; TEMP 98
== END 2018-09-27 23:30 | disposition home or self-care (01) ==
LOC: ER 10:38 → ERHOLD 15:14 → 4TH 16:00
PROVIDERS: ADMIT Family Medicine; ATTEND Family Medicine
DX: R55 Syncope and collapse (principal); M75.102 Unspecified rotator cuff tear or rupture of left shoulder, not specified as traumatic; I10 Essential (primary) hypertension; E11.9 Type 2 diabetes mellitus without complications; E66.9 Obesity, unspecified; Z68.37 Body mass index [BMI] 37.0-37.9, adult; G47.33 Obstructive sleep apnea (adult) (pediatric); Z91.041 Radiographic dye allergy status; Z98.84 Bariatric surgery status; Z96.653 Presence of artificial knee joint, bilateral; M06.9 Rheumatoid arthritis, unspecified
CPT/HCPCS: 36415; 70450; 71045; 71250; 80048; 80053; 80076; 81003; 81015; 82962; 83735; 83880; 84100; 84484; 85025; 85610; 93005; 93306; 93880; 96374; 97166; 99285; G0378; J7030

== ENCOUNTER 2018-10-15 08:53 | Emergency (ER) | payer BC, OTHER ==
--- OUTSIDE RECORDS SUMMARY | 2018-10-15 08:55 | XMS REPORT ---
:1960 [facility] Address [address] [place] [address] Dr. Anderson. [address] [place] [address] Care Team Providers Name Role Phone Unavailable Unavailable Unavailable Problems This patient has no known problems. Allergies, Adverse Reactions, Alerts This patient has no known allergies or adverse reactions. Medications This patient has no known medications.
--- OUTSIDE RECORDS SUMMARY | 2018-10-15 08:55 | XMS REPORT | Summary of Care ---
:1960 Author Organization [facility] - Health Address [address] [place] [id number] Care Team Providers Name Role Phone Unavailable Primary Care Provider Unavailable Encounter Details Date Type Department Care Team Description 09/10/2018 Patient Secure Msg [facility] Messages Doctor Unassigned, [address] [place] [address] [place] [address] [place] [address] [place] [address] Allergies Active Allergy Reactions Severity Noted Date Comments Iodine And Iodide Containing Products Rash 07/22/2015 documented as of this encounter (statuses as of 10/13/2018) Medications Medication Sig Dispensed Refills Start Date End Date Status insulin aspart (NOVOLOG inject 12 5 Each 3 09/01/2014 Active FLEXPEN) 100 unit/mL Units under injectionIndications: the skin 3 Type II or unspecified (three) times type diabetes mellitus daily before without mention of meals. complication, uncontrolled hydroxychloroquine 200 mg TAKE 1& 1/2 135 tablet 1 05/19/2016 Active tablet TABLET BY MOUTH EVERY DAY Dextran 70-Hypromellose Place 1 Drop 0 Active (ARTIFICIAL TEARS) Dpet in both eyes as needed. cycloSPORINE (RESTASIS) Place 1 Drop 0 Active 0.05 % drops in both eyes every 12 (twelve) hours. foLIC acid 1 mg tablet Take 1 tablet 90 tablet 1 12/25/2017 Active by mouth daily. tofacitinib (XELJANZ XR) Take 11 mg by 90 tablet 3 01/04/2018 Active 11 mg Tb24 mouth daily. MELOXICAM 15 mg tablet TAKE 1 TABLET 30 tablet 0 03/15/2018 Active BY MOUTH EVERY DAY NEEDED FOR PAIN methotrexate 2.5 mg Take 8 tablets 96 tablet 0 04/17/2018 Active tabletIndications: by mouth Arthritis weekly. TRAMADOL 50 mg TAKE 2 TABLETS 240 tablet 0 06/27/2018 Active tabletIndications: BY MOUTH FOUR Arthritis TIMES DAILY documented as of this encounter (statuses as of 10/13/2018) Active Problems Problem Noted Date NSVT (nonsustained ventricular tachycardia) 05/19/2017 Total knee replacement status 05/15/2017 Well woman exam with routine gynecological exam 01/26/2017 Breast cancer screening 01/26/2017 Colon cancer screening 01/26/2017 Labial lesion 01/26/2017 BMI 36.0-36.9,adult 01/26/2017 Right knee pain 08/05/2015 Nonproliferative diabetic retinopathy of both eyes 07/22/2015 Diabetic macular edema of both eyes 07/22/2015 Senile nuclear sclerosis, bilateral 07/22/2015 Long-term use of Plaquenil 07/22/2015 Dry eyes, bilateral 07/22/2015 IDDM (insulin dependent diabetes mellitus) 06/11/2013 Generalized osteoarthrosis of hand 11/07/2012 Overview: ICD10 Diagnosis Term Centrifugal Spinner Utility Diabetic peripheral neuropathy 11/06/2012 Diabetes mellitus type 2, uncontrolled, without complications 01/13/2012 Overview: ICD10 Diagnosis Term Centrifugal Spinner Utility Obesity 01/13/2012 Overview: ICD10 Diagnosis Term Centrifugal Spinner Utility HLD (hyperlipidemia) 01/13/2012 Overview: ICD10 Diagnosis Term Centrifugal Spinner Utility Elevated BP 01/13/2012 Mild vitamin D deficiency 01/13/2012 Steroid long-term use 01/13/2012 Encounter for long-term (current) use of other medications 07/19/2011 Raynaud's syndrome 07/28/2009 Rheumatoid arthritis 07/28/2009 Overview: ICD10 Diagnosis Term Centrifugal Spinner Utility Encounter for long-term (current) use of steroids 07/28/2009 Chronic pain syndrome 07/28/2009 documented as of this encounter (statuses as of 10/13/2018) Social History Tobacco Use Types Packs/Day Years Used Date Never Smoker Smokeless Tobacco: Never Used Alcohol Use Drinks/Week oz/Week Comments No Sex Assigned at Date Recorded Not on file Job Start Date Occupation Industry Not on file Not on file Not on file Travel History Travel Start Travel End No recent travel history available. documented as of this encounter Last Filed Vital Signs Not on filedocumented in this encounter Plan of Treatment Date Type Specialty Care Team Description 12/13/2018 Office Visit Rheumatology ChiragHuey alvaradomond Ness, DO [address] [place] [address] [phone] Health Maintenance Due Date Last Done Comments PNEUMOCOCCAL 0-64 YEARS COMBINED 1968 SERIES (1 of 1 - PPSV23) URINE MICROALBUMIN 1972 FOOT EXAM 1980 DTaP,Tdap,and Td Vaccines (1 - 1981 Tdap) COLONOSCOPY 2012 Zoster Recombinant Vaccine 2012 (SHINGRIX) (1 of 2) LDL-C 01/12/2013 01/13/2012 HgA1C 11/16/2017 05/16/2017, 01/13/2012 MAMMOGRAM 02/01/2018 02/01/2017 EYE EXAM 08/24/2018 08/24/2017, 07/27/2017, 07/13/2017, Additional history exists INFLUENZA VACCINE 11/11/2018 CREATININE (SERUM) 12/25/2018 12/25/2017, 07/04/2017, 05/18/2017, Additional history exists PAP SMEAR 01/27/2020 01/26/2017 HEPATITIS C (HCV) SCREEN Completed 12/27/2016, 09/01/2016, 07/28/2009 documented as of this encounter Implants Implanted Type Area Delivery Motorcycle Driver Device Shelf Model / Identifier Expiration Date Serial / Lot [employer] CEMENT Right: Biomet 06/10/2020 [id number] / Implanted: Qty: 1 on 05/15/2017 by Rex Pacheco MD at [facility] Knee [id number] / [id number] Ps Open Box Femoral-Right KNEE Right: Biomet 04/14/2026 [id number] / Implanted: Qty: 1 on 05/15/2017 by Rex Pacheco MD at [facility] Knee [id number] / [id number] Adc Plate Tibial Cruciate 67 Mm - [id number] PLATE Right: Biomet 2026 [id number] / Implanted: Qty: 1 on 05/15/2017 by Rex Pacheco MD at [facility] Knee [id number] / [id number] Adc Patella 31 X 8 Mm - [id number] Right: Biomet 12/31/2021 [id number] / Implanted: Qty: 1 on 05/15/2017 by Rex Pacheco MD at [facility] Knee [id number] / [id number] Bearing Tib 10 X 63/67 Mm #[id number] - [id number] Right: Biomet 01/24/2022 [id number] / Implanted: Qty: 1 on 05/15/2017 by Rex Pacheco MD at [facility] Knee [id number] / [id number] documented as of this encounter Results Not on filedocumented in this encounter Insurance Payer Benefit Plan Subscriber ID Effective Phone Address Type / Group Dates [facility] BCBS OF [id number] 2012-[facility] [phone] [address] PPO/ POS [place] - OUT ent [id number] [place] [address] [facility] xxxxxxxxx 2018-Prese Medicaid HEALTHCARE COMM STAR PLUS nt PLAN - MANAGED MEDICAID documented as of this encounter
[2018-10-15] MEDS ORDERED: KETOROLAC 30 MG/ML INJ ONE (09:34)
[2018-10-15] MEDS ORDERED: ONDANSETRON 4 MG/2 ML VIAL ONE (09:35)
[2018-10-15] MEDS ORDERED: FAMOTIDINE 20 MG/2 ML VIAL IV ONE (09:35)
[2018-10-15 10:11] LABS: Absolute Lymphocytes (CBC) 1.3 K/uL (0.7-4.9); Basophils % 0.7 % (0-1.3); Hematocrit 36.1 % (36.0-45.0); Lymphocytes % 15.6 % (15.3-44.8); MPV 7.4 fL (7.6-11.3); RBC Red Blood Cell Count 4.27 M/uL (3.86-4.86)
--- NOTE | 2018-10-15 10:26 | RAD REPORT ---
EXAM DESCRIPTION: CT - Abdomen Pelvis Wo Contrast - 10/15/2018 10:13 am CLINICAL HISTORY: Abdominal pain COMPARISON: 2017 TECHNIQUE: Computed axial tomography of the abdomen and pelvis was obtained. IV and oral contrast we re not requested. All CT scans are performed using dose optimization technique as appropriate and may include automated exposure control or mA/KV adjustment according to patient size. FINDINGS: The evaluation of solid organs, vessels and bowel is limited secondary to the lack of con trast administration. Gastric band present. Prominent gastric pouch measuring 3.9 centimeters Splenic granulomata. Cholecystectomy. Liver, Pancreas, adrenals and right kidney appear grossly normal. The appendix is normal. There is no evidence of diverticulitis. 3.4 centimeter low-density left renal mass IMPRESSION: Gastric band present. Prominent gastric pouch measuring 3.9 centimeters 3.4 centimeter low-density left renal mass. Ultrasound recommended to determine if this represents a cyst
[2018-10-15 10:29] LABS: ALT/SGPT 20 U/L (12-78); AST/SGOT 16 U/L (15-37); Albumin 3.3 g/dL (3.4-5.0); Alkaline Phosphatase 134 U/L (45-117); BUN Blood Urea Nitrogen 13 mg/dL (7-18); Bicarbonate 24 mmol/L (21-32); Bilirubin Direct < 0.1 mg/dL (0-0.2); Bilirubin Total 0.6 mg/dL (0.2-1.0); Glucose Level 275 mg/dL (74-106); Potassium 4.1 mmol/L (3.5-5.1); Protein, Total 7.6 g/dL (6.4-8.2); Sodium Level 137 mmol/L (136-145); Troponin (Emerg Dept Use Only) < 0.02 ng/mL (0.0-0.045)
--- NOTE | 2018-10-15 10:45 | EKG ---
Test Date: 2018-10-15 Test Time: 09:42:37 [employer]: ALEXANDER MEASUREMENT RESULTS: Intervals: Rate: 70 MA: 134 QRSD: 84 QT: 408 QTc: 440 [place]: P: 62 MA: 134 QRS: 37 T: 51 INTERPRETIVE STATEMENTS: Normal sinus rhythm Normal ECG Compared to ECG 09/25/2018 11:05:09 Myocardial infarct finding no longer present Electronically Signed On 10-15-18 10:45:21 CDT by Gabriel Hui
--- NOTE | 2018-10-15 10:52 | RAD REPORT ---
EXAM DESCRIPTION: Ivis Single View10/15/2018 10:39 am CLINICAL HISTORY: Abdominal pain COMPARISON: September 2018 FINDINGS: Mild opacity lies lateral to inferior right hilum Left lung appears clear The heart is normal size IMPRESSION: Mild opacity within the right lung may represent a mild infiltrate or confluence of rib s and pulmonary vessels
[2018-10-15] MEDS ORDERED: NA CHLORIDE 0.9% 1,000 ML ONE (10:55)
--- NOTE | 2018-10-15 11:28 | RAD REPORT ---
EXAM DESCRIPTION: RAD - Esophagram Only - 10/15/2018 10:39 am CLINICAL HISTORY: Nausea, vomiting, difficulty swallowing, suspected lap band abnormality COMPARISON: CT study same date FINDINGS: Esophagram was performed. Patient shows normal bolus formation and normal initiation of sw allowing. Primary peristalsis is normal. No tertiary contractions seen. No intrinsic esophageal stric ture, mass or web. There is mild dilatation of the distal thoracic esophagus. Approximately [address] diameter segment of the proximal stomach extends superior to the lap band. Retained fluid was see n within this portion during the esophagram. There is only a narrow channel 2-3 mm in maximum diamete r traversing the lap band. The liquid barium show no delay in transit across this narrowed lap band c hannel. Proximal stomach below the lap band was incompletely filled with contrast to allow assessment . Peristaltic activity of the distal esophagus and proximal stomach result in in retrograde movement of contrast and food within the esophagus due to the narrow lap band channel. There is 1 AP cine loop sequence acquired. Eight additional fluoroscopic spot images were retained. Fluoro time was 1 minutes 9 seconds IMPRESSION: Lap band has slipped with approximately 4 centimeter diameter area of stomach superior t o the band. A small diameter channel is seen across the lap band 2-3 mm in maximum diameter. There was no delay i n transit of liquid barium across this narrow channel. Distal most thoracic esophagus and the portion of stomach superior to the band contain retained food products.
[2018-10-15] MEDS ORDERED: FENTANYL CITR 100 MCG/2 ML ONE (12:49)
--- NOTE | 2018-10-15 13:07 | RAD REPORT ---
EXAM DESCRIPTION: US - Abdomen Exam Limited - 10/15/2018 11:56 am CLINICAL HISTORY: Abdominal pain, abnormal CT study, possible renal mass COMPARISON: CT study 10/15/2018, January 2017 and May 2011 FINDINGS: Limited abdominal sonography is performed to evaluate the left kidney. CT imaging showed a low-density mass in the upper pole left kidney. Left kidney overall measures 11.5 x 5.4 x 5.6 cm. Co rtical thickness is normal. There is no hydronephrosis. In the upper pole of the left kidney a 4.4 centimeter lobulated hypoechoic mass is present. There is some posterior acoustic enhancement seen. This is probably a complex cyst with septation or possibly 2 abutting cysts. This finding was not present on the 2011 CT study and is not seen as the same size structure in 2017. This may be new or enlarged from 2017. All prior CT studies are noncontrast exami [facility]. It is unknown if the patient has allergy or other reason not to receive contrast. No other significant left renal find . IMPRESSION: Approximate 4.4 centimeter lobulated hypoechoic mass in the upper pole left kidney as a correlate to the CT finding. This is probably a cyst but does not meet strict ultrasound criteria. All prior CT studies were done without contrast. It is unknown if the patient has renal issues or con trast allergy issues. If the patient can undergo a contrast study, CT imaging could be performed for further characterizati on. Complex cyst is most likely the etiology. Any follow-up contrast CT imaging could be performed on an outpatient basis.
--- NOTE | 2018-10-15 13:21 | ER ---
Nurse's Notes [facility] Name: Tamy Martinez Age: 58 yrs Sex: Female : 1960 Arrival Date: 10/15/2018 Time: 08:56 Bed 7 Private MD: Christiano Núñez E Diagnosis: acute abdominal pain;lap band malfunction;Left Renal Mass Presentation: 10/15 09:04 Presenting complaint: Mother states: "I feel like something is stuck in there, I tried bb to throw up but it still hurts." Reports abdominal pain 8/10 x [address] Band [address] Dr[address] Vuong in 2009. Transition of care: patient was not received from another setting of care. Onset of symptoms was October 14, 2018. Risk Assessment: Do you want to hurt yourself or someone else? Patient reports no desire to harm self or others. Initial Sepsis Screen: Does the patient meet any 2 criteria? No. Patient's initial sepsis screen is negative. Does the patient have a suspected source of infection? No. Patient's initial sepsis screen is negative. Care prior to arrival: None. 09:04 Method Of Arrival: Ambulatory bb 09:04 Acuity: HODAN 3 bb Historical: - Allergies: 09:07 Iodinated Contrast Media - IV Dye; bb - Home Meds: 09:30 methotrexate sodium 2.5 mg Oral tab take 8 tablets PO weekly. [Active]; Lantus 100 jl7 unit/mL Sub-Q soln [Active]; - PMHx: 09:30 Diabetes - IDDM; Rheumatoid Arthritis; Hypertension resolved after lap band; jl7 - PSHx: 09:30 Knee surgery; Lap band; Cholecystectomy; ; jl7 - Immunization history:: Adult Immunizations up to date. - Social history:: Smoking status: Patient/guardian denies using tobacco. - Ebola Screening: : No symptoms or risks identified at this time. - Family history:: not pertinent. - Hospitalizations: : No recent hospitalization is reported. Screenin:04 Abuse screen: Denies threats or abuse. Denies injuries from another. Nutritional jl7 screening: No deficits noted. Tuberculosis screening: No symptoms or risk factors identified. Fall Risk IV access (20 points). Total Green Fall Scale indicates No Risk (0-24 pts). Assessment: 09:35 General: Appears in no apparent distress. uncomfortable, Behavior is calm, cooperative, jl7 appropriate for age. Pain: Complains of pain in epigastric area Pain does not radiate. Pain currently is 8 out of 10 on a pain scale. Quality of pain is described as pressure, Pain began 1 day ago. Is continuous. Neuro: Level of Consciousness is awake, alert, obeys commands, Oriented to person, place, time, situation. Cardiovascular: Denies chest pain, Patient's skin is warm and dry. Respiratory: Airway is patent Respiratory effort is even, unlabored, Respiratory pattern is regular, symmetrical, Denies shortness of breath. GI: Abdomen is round non-distended, Abd is soft and non tender X 4 quads. Abdomen is tender to palpation in epigastric area. : No signs and/or symptoms were reported regarding the genitourinary system. EENT: No signs and/or symptoms were reported regarding the EENT system. Derm: Skin is pink, warm \\T\\ dry. 10:30 Reassessment: Pt reports decreased pain, rated 7/10 at this time. jl7 11:00 Reassessment: Patient appears in no apparent distress at this time. No changes from tw2 previously documented assessment. Patient and/or family updated on plan of care and expected duration. Pain level reassessed. Patient is alert, oriented x 3, equal unlabored respirations, skin warm/dry/pink. 13:18 Reassessment: Patient appears in no apparent distress at this time. Patient and/or jl7 family updated on plan of care and expected duration. Pain level reassessed. Patient is alert, oriented x 3, equal unlabored respirations, skin warm/dry/pink. patient reports pain rated 4/10 at this time. Patient states feeling better. Vital Signs: 09:06 BP 189 / 95; Pulse 76; Resp 16; Temp 97.8; Pulse Ox 100% on R/A; Weight 87.09 kg; bb Height 5 ft. 1 in. (154.94 cm); Pain 8/10; 10:04 BP 136 / 71; Pulse 66; Resp 16 S; Pulse Ox 97% on R/A; jl7 10:58 BP 163 / 81; Pulse 70; Resp 17; Pulse Ox 100% on R/A; tw2 12:57 BP 156 / 106; Pulse 74; Resp 17; Pulse Ox 100% on R/A; tw2 13:17 BP 159 / 60; Pulse 65; Resp 16; Pulse Ox 98% ; Pain 4/10; jl7 14:34 BP 158 / 79; Pulse 69; Resp 16 S; Pulse Ox 98% on R/A; jl7 09:06 Body Mass Index 36.28 (87.09 kg, 154.94 cm) ED Course: 08:56 Patient arrived in ED. mr 08:56 Christiano Núñez MD is Private Physician. mr 09:06 Triage completed. bb 09:06 Arm band placed on. bb 09:09 Christiano Rodriguez MD is Attending Physician. wa 09:13 Lakshmi Villeda RN is Primary Nurse. jl7 09:45 EKG done, by information technology teacher. reviewed by Christiano Rodriguez MD. at1 10:00 Initial lab(s) drawn, by me, sent to lab. ss 10:04 Patient has correct armband on for positive identification. Placed in gown. Bed in low jl7 position. Call light in reach. Side rails up X 1. Pulse ox on. NIBP on. Warm blanket given. 10:04 Inserted saline lock: 22 gauge in left forearm, using aseptic technique. jl7 10:26 CT Abd/Pelvis - Without Contrast In Process Unspecified. EDMS 10:41 XRAY Chest (1 view) In Process Unspecified. EDMS 10:41 Esophagram Only In Process Unspecified. EDMS 11:57 US Abdomen Limited In Process Unspecified. EDMS 14:35 No provider procedures requiring assistance completed. Patient transferred, IV remains jl7 in place. intact, No redness/swelling at site. Administered Medications: 10:03 Drug: TORadol 30 mg Route: IVP; Site: left forearm; jl7 10:30 Follow up: Response: No adverse reaction; Pain is decreased jl7 10:04 Drug: Pepcid 20 mg Route: IVP; Site: left forearm; jl7 10:30 Follow up: Response: No adverse reaction jl7 10:05 Drug: Zofran 4 mg Route: IVP; Site: left forearm; jl7 10:30 Follow up: Response: No adverse reaction jl7 11:00 Drug: NS 0.9% 1000 ml Route: IV; Rate: 1 bolus; Site: left forearm; jl7 12:56 Drug: fentaNYL (PF) 50 mcg Route: IVP; Site: left forearm; jl7 13:18 Follow up: Response: No adverse reaction; Pain is decreased jl7 Outcome: 13:20 ER care complete, transfer ordered by . adriana 14:35 Transferred by ground EMS to [facility], [facility], Transfer form completed. jl7 14:35 Condition: stable 14:35 Discharge instructions given to patient, Instructed on the need for transfer, Demonstrated understanding of instructions. 14:36 Patient left the ED. jl7 Signatures: Dispatcher [employer] EDTammie Daly Brenda, RN RN Veronika Crump RN RN ss Jackie Rangel, cloth shearer EKG Tat1 Nadege Chacon RN RN tw2 Lakshmi Villeda RN RN jl7 Christiano Rodriguez MD MD wa
--- NOTE | 2018-10-15 13:22 | EDPHYS ---
Physician Documentation [facility] Name: Tamy Martinez Age: 58 yrs Sex: Female : 1960 Arrival Date: 10/15/2018 Time: 08:56 Bed 7 Private MD: Christiano Núñez E ED Physician Christiano Rodriguez HPI: 10/15 09:56 This 58 yrs old Female presents to ER via Ambulatory with complaints of Lap wa band problem. 09:56 The patient presents with abdominal pain in the epigastric area, "It feels like my food wa won't go down". Onset: The symptoms/episode began/occurred 2 day(s) ago. The symptoms do not radiate. Associated signs and symptoms: Pertinent positives: nausea, Pertinent negatives: chest pain, diarrhea, shortness of breath, vomiting. The symptoms are described as burning. Modifying factors: The symptoms are alleviated by nothing, the symptoms are aggravated by swallowing. Severity of pain: At its worst the pain was moderate in the emergency department the pain has improved moderately. The patient has not experienced similar symptoms in the past. The patient has not recently seen a physician. s/p lap band procedure by Dr. Vcitor in 2009. states needed adjustment a couple months after surgery and has been doing well until 2 months ago when she began feeling food getting stuck. usually able either vomit back out or somehow get it down for a few hours. However this last 2 days worse. cannot vomit it out or get to go down. Historical: - Allergies: 09:07 Iodinated Contrast Media - IV Dye; bb - Home Meds: 09:30 methotrexate sodium 2.5 mg Oral tab take 8 tablets PO weekly. [Active]; Lantus 100 jl7 unit/mL Sub-Q soln [Active]; - PMHx: 09:30 Diabetes - IDDM; Rheumatoid Arthritis; Hypertension resolved after lap band; jl7 - PSHx: 09:30 Knee surgery; Lap band; Cholecystectomy; ; jl7 - Immunization history:: Adult Immunizations up to date. - Social history:: Smoking status: Patient/guardian denies using tobacco. - Ebola Screening: : No symptoms or risks identified at this time. - Family history:: not pertinent. - Hospitalizations: : No recent hospitalization is reported. ROS: 10:00 Constitutional: Negative for fever, chills, and weight loss, Eyes: Negative for injury, wa pain, redness, and discharge, ENT: Negative for injury, pain, and discharge, Neck: Negative for injury, pain, and swelling, Cardiovascular: Negative for chest pain, palpitations, and edema, Respiratory: Negative for shortness of breath, cough, wheezing, and pleuritic chest pain, Back: Negative for injury and pain, : Negative for injury, bleeding, discharge, and swelling, MS/Extremity: Negative for injury and deformity, Skin: Negative for injury, rash, and discoloration, Neuro: Negative for headache, weakness, numbness, tingling, and seizure. 10:00 Abdomen/GI: Positive for abdominal pain, nausea, Negative for diarrhea. 10:00 All other systems are negative. Exam: 10:00 Constitutional: This is a well developed, well nourished patient who is awake, alert, wa and in no acute distress. Head/Face: Normocephalic, atraumatic. Eyes: Pupils equal round and reactive to light, extra-ocular motions intact. Lids and lashes normal. Conjunctiva and sclera are non-icteric and not injected. Cornea within normal limits. Periorbital areas with no swelling, redness, or edema. ENT: Nares patent. No nasal discharge, no septal abnormalities noted. Tympanic membranes are normal and external auditory canals are clear. Oropharynx with no redness, swelling, or masses, exudates, or evidence of obstruction, uvula midline. Mucous membranes moist. Neck: Trachea midline, no thyromegaly or masses palpated, and no cervical lymphadenopathy. Supple, full range of motion without nuchal rigidity, or vertebral point tenderness. No Meningismus. Chest/axilla: Normal chest wall appearance and motion. Nontender with no deformity. No lesions are appreciated. Cardiovascular: Regular rate and rhythm with a normal S1 and S2. No gallops, murmurs, or rubs. Normal PMI, no JVD. No pulse deficits. Respiratory: Lungs have equal breath sounds bilaterally, clear to auscultation and percussion. No rales, rhonchi or wheezes noted. No increased work of breathing, no retractions or nasal flaring. Back: No spinal tenderness. No costovertebral tenderness. Full range of motion. Skin: Warm, dry with normal turgor. Normal color with no rashes, no lesions, and no evidence of cellulitis. MS/ Extremity: Pulses equal, no cyanosis. Neurovascular intact. Full, normal range of motion. Neuro: Awake and alert, GCS 15, oriented to person, place, time, and situation. Cranial nerves II-XII grossly intact. Motor strength 5/5 in all extremities. Sensory grossly intact. Cerebellar exam normal. Normal gait. Psych: Awake, alert, with orientation to person, place and time. Behavior, mood, and affect are within normal limits. 10:00 Abdomen/GI: Inspection: abdomen appears normal, Bowel sounds: normal, Palpation: moderate abdominal tenderness, in the epigastric area, voluntary guarding, is not appreciated, no appreciated organomegaly. Vital Signs: 09:06 BP 189 / 95; Pulse 76; Resp 16; Temp 97.8; Pulse Ox 100% on R/A; Weight 87.09 kg; bb Height 5 ft. 1 in. (154.94 cm); Pain 8/10; 10:04 BP 136 / 71; Pulse 66; Resp 16 S; Pulse Ox 97% on R/A; jl7 10:58 BP 163 / 81; Pulse 70; Resp 17; Pulse Ox 100% on R/A; tw2 12:57 BP 156 / 106; Pulse 74; Resp 17; Pulse Ox 100% on R/A; tw2 13:17 BP 159 / 60; Pulse 65; Resp 16; Pulse Ox 98% ; Pain 4/10; jl7 14:34 BP 158 / 79; Pulse 69; Resp 16 S; Pulse Ox 98% on R/A; jl7 09:06 Body Mass Index 36.28 (87.09 kg, 154.94 cm) bb MDM: 09:09 Patient medically screened. wa 10:01 Differential diagnosis: suspect constricted band. r/o ischemia. will eval with wa esophagram and CT. will reassess. Data reviewed: vital signs, nurses notes, lab test result(s). Test interpretation: by ED physician or midlevel provider: EKG interp by me: HR 70. nml axis. nml rate. no concern for acute zonal ischemia. 12:14 Test interpretation: by ED physician or midlevel provider: CT abd/pelvis: L renal mass. wa lap band. no acute process. . 12:19 Test interpretation: by ED physician or midlevel provider: slipped lap band on wy esophagram. retained food products. . Response to treatment: the patient's symptoms have mildly improved after treatment. ED course: slipped band with retained food products. nml lactate. will consult surgery. 12:37 ED course: spoke with on-call Dr. Hawkins. advised transfer as he does not do surgical wy cases. 13:17 ED course: accepted by Dr. Chaney, bariatric surgery, at [facility] for further eval. wy 13:21 Test interpretation: by ED physician or midlevel provider: renal US: L renal mass wa possibly cystic. 10/15 09:22 Order name: Basic Metabolic Panel; Complete Time: 10:46 wy 10/15 09:22 Order name: CBC with Diff 10/15 09:22 Order name: LFT's; Complete Time: 10:46 wy 10/15 09:22 Order name: PT-INR wy 10/15 09:22 Order name: Troponin (emerg Dept Use Only); Complete Time: 10:46 wy 10/15 09:22 Order name: Lactate; Complete Time: 10:46 wy 10/15 09:22 Order name: XRAY Chest (1 view) wy 10/15 09:24 Order name: CT Abd/Pelvis - Without Contrast; Complete Time: 10:45 wy 10/15 10:21 Order name: Esophagram Only; Complete Time: 12:09 [facility] 10/15 10:48 Order name: US Abdomen Limited; Complete Time: 13:21 wy 10/15 09:22 Order name: EKG; Complete Time: 09:24 wy 10/15 09:22 Order name: Cardiac monitoring; Complete Time: 09:38 wy 10/15 09:22 Order name: EKG - Nurse/Tech; Complete Time: 10:06 wy 10/15 09:22 Order name: IV Saline Lock; Complete Time: 10:06 10/15 09:22 Order name: Labs collected and sent; Complete Time: 10:06 wy 10/15 09:22 Order name: O2 Sat Monitoring; Complete Time: 09:38 wy Administered Medications: 10:03 Drug: TORadol 30 mg Route: IVP; Site: left forearm; jl7 10:30 Follow up: Response: No adverse reaction; Pain is decreased jl7 10:04 Drug: Pepcid 20 mg Route: IVP; Site: left forearm; jl7 10:30 Follow up: Response: No adverse reaction jl7 10:05 Drug: Zofran 4 mg Route: IVP; Site: left forearm; jl7 10:30 Follow up: Response: No adverse reaction 7 11:00 Drug: NS 0.9% 1000 ml Route: IV; Rate: 1 bolus; Site: left forearm; jl7 12:56 Drug: fentaNYL (PF) 50 mcg Route: IVP; Site: left forearm; jl7 13:18 Follow up: Response: No adverse reaction; Pain is decreased jl7 Disposition: 10/15/18 13:20 Transfer ordered to [facility]. Diagnosis are acute abdominal pain, lap band malfunction, Left Renal Mass. - Reason for transfer: Higher level of care. - Accepting physician is Dr. Chaney at [facility]. - Condition is Stable. - Problem is new. - Symptoms have improved. Signatures: Dispatcher [employer] EDMS Brisa Porter RN RN bb Leal, Jahala, RN RN jl7 Christiano Rodriguez MD MD wa Corrections: (The following items were deleted from the chart) 13:22 13:20 10/15/2018 13:20 Transfer ordered to [facility]. Diagnosis is wy acute abdominal pain; lap band malfunction. Reason for transfer: Higher level of care. Accepting physician is Dr. Chaney at [facility]. Condition is Stable. Problem is new. Symptoms have improved. wy 14:36 13:22 10/15/2018 13:20 Transfer ordered to [facility]. Diagnosis is jl7 acute abdominal pain; lap band malfunction; Left Renal Mass. Reason for transfer: Higher level of care. Accepting physician is Dr. Chaney at [facility]. Condition is Stable. Problem is new. Symptoms have improved. wa
[2018-10-15 14:53] VITALS: TEMP 97.8
[2018-10-15 14:58] VITALS: O2SAT 98
[2018-10-15 15:00] VITALS: BP 158/79
== END 2018-10-15 14:36 | disposition short-term general hospital (02) ==
LOC: ER 08:53
DX: T85.518A Breakdown (mechanical) of other gastrointestinal prosthetic devices, implants and grafts, initial encounter (principal); N28.9 Disorder of kidney and ureter, unspecified; I10 Essential (primary) hypertension; E11.9 Type 2 diabetes mellitus without complications; Z79.4 Long term (current) use of insulin; Z91.041 Radiographic dye allergy status
CPT/HCPCS: 93005; 85025; 80048; 36415; 85610; 80076; 83605; 84484; 74176; 74220; 71045; 76705; 96375; 96374; 99285; J3010; J7030; J2405

== ENCOUNTER 2019-08-10 18:21 | Emergency (ER) | payer BC, OTHER ==
--- OUTSIDE RECORDS SUMMARY | 2019-08-10 18:24 | XMS REPORT | Clinical Summary ---
:1960 Author Organization [facility] Address [address] [place] [address] Care Team Providers Name Role Phone Pcp Primary Care Provider Unavailable Allergies Active Allergy Reactions Severity Noted Date Comments Iodinated Contrast Media Hives High 03/13/2017 Iodine And Iodide Containing Rash High 07/22/2015 Other reaction(s): Itching Products and swelling Medications Medication Sig Dispensed Refills Start Date End Date Status insulin glargine Inject 12 Units 0 Active (LANTUS) 100 unit/mL subcutaneously injection nightly Use as directed . insulin aspart U-100 Inject 0 Active (NOVOLOG) 100 subcutaneously 3 unit/mL injection (three) times daily before meals. ondansetron Take 1 tablet (4 mg 20 tablet 0 10/17/2018 01 (ZOFRAN-ODT) 4 MG total) by mouth 9 disintegrating every 8 (eight) tablet hours as needed for up to 7 days. 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 Diabetes mellitus 03/15/2017 Resolved Problems Problem Noted Date Resolved Date Abdominal pain 10/15/2018 10/16/2018 Encounters Date Type Specialty Care Team Description 10/15/2018 - Hospital Encounter General Internal Flako Arevalo 10/17/2018 David Paredes MD after 08/09/2018 Family History Medical History Relation Name Comments Heart disease Father Cancer Mother throat cancer Relation Name Status Comments Father Mother Social History Tobacco Use Types Packs/Day Years Used Date Never Smoker Smokeless Tobacco: Never Used Alcohol Use Drinks/Week oz/Week Comments No Alcohol Habits Answer Date Recorded How often do you have a drink containing alcohol? Never 10/15/2018 How many drinks containing alcohol do you have on a typical Not asked day when you are drinking? How often do you have six or more drinks on one occasion? No t asked Sex Assigned at Date Recorded Not on file Job Start Date Occupation Industry Not on file Not on file Not on file Travel History Travel Start Travel End No recent travel history available. Last Filed Vital Signs Vital Sign Reading Time Taken Blood Pressure 124/61 10/17/2018 9:50 PM CDT Pulse 75 10/17/2018 9:50 PM CDT Temperature 35.9 C (96.7 F) 10/17/2018 9:50 PM CDT Respiratory Rate 18 10/17/2018 9:50 PM CDT Oxygen Saturation 95% 10/17/2018 9:50 PM CDT Inhaled Oxygen Concentration - - Weight 94.6 kg (208 lb 9.6 oz) 10/16/2018 8:02 AM CDT Height - - Body Mass Index - - Plan of Treatment Not on file Procedures Procedure Name Priority Date/Time Associated Comments Diagnosis POCT-GLUCOSE METER Routine 10/17/2018 9:48 Resul ts for this PM CDT procedure are i n the results section. POCT-GLUCOSE METER Routine 10/17/2018 4:16 Resul ts for this PM CDT procedure are i n the results section. POCT-GLUCOSE METER Routine 10/17/2018 12:05 Resul ts for this PM CDT procedure are i n the results section. POCT-GLUCOSE METER Routine 10/17/2018 5:32 Resul ts for this AM CDT procedure are i n the results section. POCT-GLUCOSE METER Routine 10/17/2018 12:07 Resul ts for this AM CDT procedure are i n the results section. POCT-GLUCOSE METER Routine 10/16/2018 8:59 Resul ts for this PM CDT procedure are i n the results section. POCT-GLUCOSE METER Routine 10/16/2018 6:11 Resul ts for this PM CDT procedure are i n the results section. TRANSFUSION SERVICE 10/16/2018 6:00 REPORT - SCAN PM CDT [place] UPPER GI Routine 10/16/2018 3:40 Results for this PM CDT procedure are i n the results section. POCT-GLUCOSE METER Routine 10/16/2018 5:56 Resul ts for this AM CDT procedure are i n the results section. POCT-GLUCOSE METER Routine 10/16/2018 12:37 Resul ts for this AM CDT procedure are i n the results section. POCT-GLUCOSE METER Routine 10/15/2018 10:12 Resul ts for this PM CDT procedure are i n the results section. ABORH, MANUAL STAT 10/15/2018 6:51 Results fo r this PM CDT procedure are i n the results section. POCT-GLUCOSE METER Routine 10/15/2018 6:12 Resul ts for this PM CDT procedure are i n the results section. XR CHEST 1 VIEW STAT 10/15/2018 5:55 Results for this PORTABLE/BEDSIDE PM CDT procedure a re in the results section. CBC W/PLT COUNT & Routine 10/15/2018 5:45 Result s for this AUTO DIFFERENTIAL PM CDT procedure are in the results section. TYPE AND SCREEN, Routine 10/15/2018 5:45 Results for this AUTOMATED PM CDT procedure are i n the results section. HEMOGLOBIN A1C Routine 10/15/2018 5:45 Results f or this PM CDT procedure are i n the results section. BASIC METABOLIC PANEL Routine 10/15/2018 5:45 Re sults for this (7) PM CDT procedure are i n the results section. CBC W/PLT COUNT & Routine 10/15/2018 5:45 Result s for this AUTO DIFFERENTIAL PM CDT procedure are in the results section. after 08/09/2018 Results POC-Glucose meter (10/17/2018 9:48 PM CDT)Only the most recent of11 results within the time period is included. POC-Glucose Meter 194 (H)Comment: TESTED AT 70 - 110 mg/dL [facility] [address] [facility] [id number] Specimen Blood Performing Organization Address City/State/Zipcode Phone Number [address] [phone] CENTER TRANSFUSION SERVICE REPORT - SCAN (10/16/2018 6:00 PM CDT) Narrative Performed At This result has an attachment that is no t available. [place] upper GI (10/16/2018 3:40 PM CDT) Specimen Narrative Performed At FINAL REPORT GE RIS INDICATION: Mid chest pain with swallowing prior gas tric lap band. Immediately before the procedure the gastric lap ban d was deflated. TECHNIQUE: Upper GI exam single contrast (thin sapna um). Fluoroscopy time 0.4 minutes. Fluoroscopic images 4. FINDINGS / IMPRESSION: In the supine reverse Trendelenburg posi tion the patient was administered thin barium by mouth. Contr ast passed normally down the esophagus, through the gastric lap band into the stomach. Esophageal peristalsis was normal. Signed: Shen Penn MD Report Verified Date/Time:10/16/2018 17:33:25 Reading Location: [facility] C013X Ortho Con sult Reading Room Procedure Note Interface, External Ris In - 10/16/2018 5:35 PM CDT FINAL REPORT INDICATION: Mid chest pain with swallowing prior gas tric lap band. Immediately before the procedure the gastric lap ban d was deflated. TECHNIQUE: Upper GI exam single contrast (thin sapna um). Fluoroscopy time 0.4 minutes. Fluoroscopic images 4. FINDINGS / IMPRESSION: In the supine reverse Trendelenburg posi tion the patient was administered thin barium by mouth. Contr ast passed normally down the esophagus, through the gastric lap band into the stomach. Esophageal peristalsis was normal. Signed: Shen Penn MD Report Verified Date/Time: 10/16/2018 1 7:33:25 Reading Location: [facility] C013X Ortho Con sult Reading Room Performing Organization Address City/[facility] Phone Number [employer] ABORH, manual (10/15/2018 6:51 PM CDT) ABO Grouping O [facility] Rh Factor POS [facility] Specimen Blood Performing Organization Address City/[facility]/Zipcode Phone Number [facility] [address] [place] [address] XR chest 1 view portable / bedside (10/15/2018 5:55 PM CDT) Specimen Narrative Performed At FINAL REPORT [employer] Chest, one view. HISTORY: preop COMPARISON: Radiograph from earlier toda y IMPRESSION: There is a slightly hazy, nodular opacit y which measures 1.5 cm. A follow-up radiograph is recommended in t hree months to document resolution. The cardiac silhouette is normal in size and unchanged. No pleural effusion or pneumothorax. Pulmonary veno us congestion.No acute bony abnormality. Signed: Chan Olson MD Report Verified Date/Time:10/15/2018 18:59:09 Reading Location: [facility] C013W Consult R [facility] Room Procedure Note Interface, External Ris In - 10/15/2018 7:01 PM CDT FINAL REPORT Chest, one view. HISTORY: preop COMPARISON: Radiograph from earlier toda y IMPRESSION: There is a slightly hazy, nodular opacit y which measures 1.5 cm. A follow-up radiograph is recommended in t hree months to document resolution. The cardiac silhouette is normal in size and unchanged. No pleural effusion or pneumothorax. Pulmonary veno us congestion. No acute bony abnormality. Signed: Chan Olson MD Report Verified Date/Time: 10/15/2018 1 8:59:09 Reading Location: [facility] C013W Consult [facility] Room Performing Organization Address City/[facility]/Zipcode Phone Number GE RIS Type and screen, automated (10/15/2018 5:45 PM CDT) ABO/RH AUTOMATED (BEAKER) O POSITIVE [facility] Ab Scrn NEGATIVE [facility] Specimen Blood Performing Organization Address City/[facility]/Zipcode Phone Number [facility] [address] [place] [address] CBC with platelet count + automated diff (10/15/2018 5:45 PM CDT) WBC 7.0 3.5 - 10.5 K/L [facility] RBC 4.13 3.93 - 5.22 M/L [facility] Hemoglobin 11.9 11.2 - 15.7 GM/DL [facility] Hematocrit 35.4 34.1 - 44.9 % [facility] MCV 85.7 79.4 - 94.8 fL [facility] MCH 28.8 25.6 - 32.2 pg [facility] MCHC 33.6 32.2 - 35.5 GM/DL [facility] RDW 15.0 (H) 11.7 - 14.4 % [facility] Platelets 244 150 - 450 K/CU MM [facility] MPV 9.5 9.4 - 12.3 fL [facility] nRBC 0 0 - 0 /100 WBC [facility] % Neutros 65 % [facility] % Lymphs 22 % [facility] % Monos 9 % [facility] % Eos 4 % [facility] % Baso 0 % [facility] # Neutros 4.56 1.56 - 6.13 K/L [facility] # Lymphs 1.53 1.18 - 3.74 K/L [facility] # Monos 0.61 (H) 0.24 - 0.36 K/L [facility] # Eos 0.27 0.04 - 0.36 K/L [facility] # Baso 0.03 0.01 - 0.08 K/L [facility] Immature Granulocytes-Relative 0 0 - 1 % C HI [facility] Specimen Blood Performing Organization Address City/State/Zipcode Phone Number [facility] [address] [place] [address] CENTER Hemoglobin A1c (10/15/2018 5:45 PM CDT) Hemoglobin A1C 9.7 (H) 4.3 - 6.1 % [facility] Specimen Blood Performing Organization Address City/State/Zipcode Phone Number [facility] [address] [place] [address] [place] Basic metabolic panel (10/15/2018 5:45 PM CDT) Sodium 137 136 - 145 meq/L [facility] Potassium 4.1Comment: Specimen slightly 3.5 - 5.1 meq/L [facility] Chloride 105 98 - 107 meq/L [facility] CO2 23 22 - 29 meq/L [facility] BUN 14 7 - 21 mg/dL [facility] Creatinine 0.84Comment: Specimen 0.57 - 1.25 mg/dL [facility] slightly hemolyzed [facility] Glucose 203 (H) 70 - 105 mg/dL [facility] Calcium 8.7 8.4 - 10.2 mg/dL [facility] EGFR 70Comment: ESTIMATED GFR IS mL/min/1.73 sq m [facility] NOT ACCURATE [facility] CLEARANCE IN PREDICTING GLOMERULAR FILTRATION RATE. ESTIMATED GFR IS NOT APPLICABLE FOR DIALYSIS PATIENTS. Specimen Blood Performing Organization Address City/[facility]/Zipcode Phone Number [facility] [address] [place] [address] [place] after 08/09/2018 Insurance Payer Benefit Plan / Subscriber ID Type Phone Address Group BLUE CROSS/BLUE BCBS OS xxxxxxxxxxxx PPO [phone] [address] X [id number] SHIELD POS/PPO/[place] [address] MEDICAID - [facility] COMM xxxxxxxxx Medicaid MEDICAID M[employer] STAR PLAN Contracted CARE Advance Directives For more information, please contact:[address]je[address] carlos HernándezOrange Cove, [place] [phone] Code Status Date Activated Date Inactivated Comments Full Code 10/15/2018 4:27 PM 10/18/2018 2:04 AM This code status was determined by: Patient
--- OUTSIDE RECORDS SUMMARY | 2019-08-10 18:25 | XMS REPORT | Summary of Care ---
:1960 Author Organization [facility] Address [address] [place] [id number] Care Team Providers Name Role Phone Christiano Núñez Primary Care Provider Reason for Visit Reason Comments Rheumatoid Arthritis follow up Encounter Details Date Type Department Care Team Description 05/21/2019 Office Visit [facility] Internal Jan Mosher Rhe umatoid arthritis, seropositive (Primary Dx); Medicine M, DO Therapeutic drug monitoring Rheumatology-[address] Primary Care [address] , [address] [address] [place] [address] Allergies Active Allergy Reactions Severity Noted Date Comments Iodine And Iodide Containing Products Rash 01/2016 documented as of this encounter (statuses as of 05/21/2019) Medications Medication Sig Dispensed Refills Start Date End Date Status insulin aspart inject 12 5 Each 3 09/01/2014 Acti ve (NOVOLOG FLEXPEN) Units under 100 unit/mL the skin 3 injectionIndications (three) : Type II or times daily unspecified type before diabetes mellitus meals. without mention of complication, uncontrolled Dextran Place 1 Drop 0 Active 70-Hypromellose in both eyes (ARTIFICIAL TEARS) as needed. Dpet cycloSPORINE Place 1 Drop 0 Acti ve (RESTASIS) 0.05 % in both eyes drops every 12 (twelve) hours. LANTUS SOLOSTAR INJECT 20 2 01/17/2019 Ac tive U-100 INSULIN 100 UNITS SC QAM unit/mL (3 mL) injection ACCU-CHEK SOFTCLIX 2 (two) 11 01/09/2019 Active LANCETS Misc times daily. BD INSULIN PEN USE QID 2 01/17/2019 Acti ve NEEDLE UF 31 gauge x 5/16" Ndle tofacitinib (XELJANZ Take 11 mg 90 tablet 1 02/27/2019 Active XR) 11 mg by mouth [id number]: daily. Rheumatoid arthritis, seropositive, Therapeutic drug monitoring TRAMADOL 50 mg TAKE 1 120 tablet 0 05/13/2019 Act nevaeh tabletIndications: TABLET BY Rheumatoid MOUTH UP TO arthritis, FOUR TIMES seropositive DAILY NEEDED FOR PAIN moxifloxacin Place 1 Drop 3 mL 0 02/04/2019 05/21/2019 Di scontinued (VIGAMOX) 0.5 % in left eye ophthalmic 4 (four) dropsIndications: times daily. Proliferative diabetic retinopathy of both eyes with macular edema associated with type 2 diabetes mellitus documented as of this encounter (statuses as of 05/21/2019) Active Problems Problem Noted Date Proliferative diabetic retinopathy of both eyes with m acular edema 01/21/2019 associated with type 2 diabetes mellitus Overview: Added automatically from request for akshat henning [id number] NSVT (nonsustained ventricular tachycardia) 05/19/2017 Total knee replacement status 05/15/2017 Well woman exam with routine gynecological exam 2016 Breast cancer screening 01/26/2017 Colon cancer screening 01/26/2017 Labial lesion 01/26/2017 BMI 36.0-36.9,adult 01/26/2017 Right knee pain 08/05/2015 Nonproliferative diabetic retinopathy of both eyes 01/2016 Diabetic macular edema of both eyes 07/22/2015 Senile nuclear sclerosis, bilateral 07/22/2015 Long-term use of Plaquenil 07/22/2015 Dry eyes, bilateral 07/22/2015 IDDM (insulin dependent diabetes mellitus) 06/11/2013 Generalized osteoarthrosis of hand 11/07/2012 Overview: ICD10 Diagnosis Term [employer] Diabetic peripheral neuropathy 11/06/2012 Diabetes mellitus type 2, uncontrolled, without compli cations 01/13/2012 Overview: ICD10 Diagnosis Term [employer] Obesity 01/13/2012 Overview: ICD10 Diagnosis Term [employer] HLD (hyperlipidemia) 01/13/2012 Overview: ICD10 Diagnosis Term [employer] Elevated BP 01/13/2012 Mild vitamin D deficiency 01/13/2012 Steroid long-term use 01/13/2012 Encounter for long-term (current) use of other medicat ions 07/19/2011 Raynaud's syndrome 07/28/2009 Rheumatoid arthritis 07/28/2009 Overview: ICD10 Diagnosis Term [employer] Encounter for long-term (current) use of steroids 07/11 Chronic pain syndrome 07/28/2009 documented as of this encounter (statuses as of 05/21/2019) Social History Tobacco Use Types Packs/Day Years Used Date Never Smoker Smokeless Tobacco: Never Used Alcohol Use Drinks/Week oz/Week Comments No Sex Assigned at Date Recorded Not on file Job Start Date Occupation Industry Not on file Not on file Not on file Travel History Travel Start Travel End No recent travel history available. documented as of this encounter Last Filed Vital Signs Vital Sign Reading Time Taken Comments Blood Pressure 190/86 05/21/2019 9:15 AM CDT Pulse 68 05/21/2019 9:15 AM CDT Temperature 36.4 C (97.6 F) 05/21/2019 9:13 AM CDT Respiratory Rate 16 05/21/2019 9:13 AM CDT Oxygen Saturation 100% 05/21/2019 9:13 AM CDT Inhaled Oxygen Concentration - - Weight 89.8 kg (198 lb) 05/21/2019 9:13 AM CDT Height 157.5 cm (5' 2") 05/21/2019 9:13 AM CDT Body Mass Index 36.21 05/21/2019 9:13 AM CDT documented in this encounter Progress Notes Jan Mosher, DO - 05/21/2019 9:20 AM CDT Chief Complaint/Reason for Visit: Rheumatoid Arthritis (follow up ) seropositive (RF/CCP) erosive RA. Ms. Tamy Martinez is a female with past medical history listed below presents to clinic today for follow-up visit for sero positive (RF of 265, anti CCP 71), erosive RA. Patient had B/L TKA i and is doing well Is seeing ophthalmology for HCQ checks and notes everything has checked out OK as of 12/21/18 visit. Ophth noted dry eyes. SSA and B negative. Off HCQ due to transportation issues (see below). No HCQ tox noted. IImaging c/w progressive RA. She was switched from Orencia to Xeljanz, and that really helped. However, she ran into transportation issues and couldn't f/u and wasn't seen in a year and ran out of all meds and was worse. Her BS was out of control She didn't get he vaccines (flu shot, PNA shot, Shingrix, ?hep) as advised. She decided to get the shots (encouraged by her friend) and she got the PNA, flu and Shingrix (one dose, second dose due in Mar). Tolerated that well, however has an eye complication related to DM. Her BS and BP out of control recently. She had a procedure for bleeding in her eye and no further treatments are planned. Healed well. Wanted something for pain. PCP Rx ibuprofen, but took very little and stopped due to GI upset. Wastaking 3200 mg APAP daily in divided doses. Now on tramadol 50 mg with one -APAP averaging BID. No more APAP than that. Finished all of her treatments for her eye. Healing well. Started Xeljanz. Much much better. Prior meds (stopped due to compliance issues/transporaton) Xeljanz, HCQ, MTX and Mobic Prior Meds stopped due to other issues: Mehdi Thompson (she also states she took Enbrel in past too). BP markedly up (systolic). No symptoms at all. REVIEW OF SYSTEMS General - Negative for generalized weakness, malaise and weight loss. + for fatigue. HEENT - Negative for dry eyes, eye pain, eye redness and oral ulcers. Cardiovascular - Negative for chest pain and palpitations Respiratory - Negative for cough and dyspnea Gastrointestinal - Negative for abdominal pain, bloating, constipation, diarrhea, dysphagia, heartburn, hematochezia, melena, nausea and vomiting Genitourinary - Negative for dysuria and hematuria Skin - Negative for any rash/itching. Neuro - See HPI Hematologic - Negative for blood clots Psych - Negative for anxiety and hallucinations HISTORY Past Medical History: Diagnosis Date Anemia Autoimmune disorder DM (diabetes mellitus) GERD (gastroesophageal reflux disease) HTN (hypertension) Osteoarthrosis, unspecified whether generalized or localized, lower leg RA (rheumatoid arthritis) Seropositive, erosive with RF of 265 and CCP titer of 71 Right knee pain 08/05/2015 Urinary incontinence occasional stress incont Vitreous hemorrhage of left eye Family History Problem Relation Age of Onset Cancer Mother Throat Cancer at 43 Heart Father NC (myocardial infarction) Father Cancer Maternal Grandmother unknown Arthritis NoFHx Asthma NoFHx defects NoFHx Breast Cancer NoFHx Colon Cancer NoFHx Ovarian Cancer NoFHx Uterine Cancer NoFHx Depression NoFHx Diabetes NoFHx Genetic NoFHx High cholesterol NoFHx Hypertension NoFHx Mental retardation NoFHx Neurological NoFHx Osteoporosis NoFHx Other - see comments NoFHx Psychiatry NoFHx Past Surgical History: Procedure Laterality Date ARTHROSCOPY OF JOINT UNLISTED b/L knees SECTION ELBOW BURSECTOMY B/L ENDOLASER PHOTOCOAGULATION Left 02/04/2019 Surgeon: Joana Dean MD; [facility] LAPAROSCOPIC ADJUSTABLE GASTRIC BANDING 2010 LAPAROSCOPIC ADJUSTABLE GASTRIC BANDING 2009 OPEN CHOLECYSTECTOMY PARS PLANA VITRECTOMY Left 02/04/2019 Surgeon: Joana Dean MD; Location: [facility] TOTAL KNEE ARTHROPLASTY Left TOTAL KNEE ARTHROPLASTY Right 05/15/2017 Surgeon: Rex Pacheco MD; Location: [facility] OR [facility] TUBAL LIGATION Social History Socioeconomic History Marital status: Spouse name: Not on file Number of children: 2 Years of education: Not on file Highest education level: Not on file Occupational History Not on file Social Needs Financial resource strain: Not on file Food insecurity: Worry: Not on file Inability: Not on file Transportation needs: Medical: Not on file Non-medical: Not on file Tobacco Use Smoking status: Never Smoker Smokeless tobacco: Never Used Substance and Sexual Activity Alcohol use: No Drug use: No Sexual activity: Not Currently Partners: Male Comment: last intercourse 3 months ago Lifestyle Physical activity: Days per week: Not on file Minutes per session: Not on file Stress: Not on file Relationships Social connections: Talks on phone: Not on file Gets together: Not on file Attends scientology service: Not on file Active member of club or organization: Not on file Attends meetings of clubs or organizations: Not on file Relationship status: Not on file Intimate partner violence: Fear of current or ex partner: Not on file Emotionally abused: Not on file Physically abused: Not on file Forced sexual activity: Not on file Other Topics Concern Not on file Social History Narrative Denies domestic or physical violence within the home Christianity Preference: Buddhist Allergies Allergen Reactions Ivp Dye [Iodine And Iodide Containing Products] Rash Current Outpatient Medications on File Prior to Visit Medication Sig Dispense Refill TRAMADOL 50 mg tablet TAKE 1 TABLET BY MOUTH UP TO FOUR TIMES DAILY NEEDED FOR PAIN 120 tablet 0 tofacitinib (XELJANZ XR) 11 mg Tb24 Take 11 mg by mouth daily. 90 tablet 1 ACCU-CHEK SOFTCLIX LANCETS Misc 2 (two) times daily. 11 BD INSULIN PEN NEEDLE UF 31 gauge x 5/16" Ndle USE QID 2 LANTUS SOLOSTAR U-100 INSULIN 100 unit/mL (3 mL) injection INJECT 20 UNITS SC QAM 2 cycloSPORINE (RESTASIS) 0.05 % drops Place 1 Drop in both eyes every 12 (twelve) hours. Dextran 70-Hypromellose (ARTIFICIAL TEARS) Dpet Place 1 Drop in both eyes as needed. insulin aspart (NOVOLOG FLEXPEN) 100 unit/mL injection inject 12 Units under the skin 3 (three) times daily before meals. 5 Each 3 No current facility-administered medications on file prior to visit. Advised to take OTC omeprazole. PHYSICAL EXAM BP (!) 190/86 (BP Location: Left arm, Patient Position: Sitting, BP CUFF SIZE: Adult Medium) | Pulse 68 | Temp 36.4 C (97.6 F) (Oral) | Resp 16 | Ht 5' 2" (1.575 m) | Wt 198 lb (89.8 kg) | LMP 02/24/2011 | SpO2 100% | BMI 36.21 kg/m General: Alert, No apparent distress and Oriented to person, place, and time Psych: Affect euthymic Eyes: Pupils equal, round and reactive to light, Sclera noninjected and No lacrimal gland enlargement Ears, Nose, Throat, Mouth: Oral mucosa moist with normal salivary pool, No oral or nasal ulcers or erythema, No oral plaques and No parotid enlargement Skin: No rashes noted Heme/Lymph: No lymphadenopathy in the neck Cardiovascular: Regular rate and rhythm, Normal S1 and S2, No murmurs, rubs or gallops and No peripheral edema Respiratory: Clear to auscultation with no wheezing or crackles Gastrointestinal: Soft, nontender, nondistended with normoactive bowel sounds Neuro: Normal proximal and distal muscle strength, Normal gait and Able to arise from seated postionunassisted Musculoskeletal: B/L shoulders, elbows - ROM is wnl. No swelling/tenderness noted. B/L wrists - non tender and swollen Right and Left hand much less MCP 2-3 swelling. Non tender B/L hips - ROM is wnl. No tenderness noted. Right knee - healed scar of recent right total knee arthroplasty Left knee - s/p replacement. Well healed scar noted Right ankle - no swelling, tenderness noted. Left ankle - non tender B/L feet - MTP squeeze non tender. LABS 06/1013 CBC,CMP - wnl CRP - 1.6 Vitamin D 25 OH - low at 20 Quantiferon GOLD TB test - negative 04/29/14 G 335 Alk Phos 132. CRP 1.6. D=16. TSH WNL. CBC WNL. GFR WNL. 07/24/14 ESR 29, CRPp, AST, ALT, Alb, CBC, customer success intern, and Vit D were WNL or unremarkable. 11/19/14 ESR 36 anc CRP 1.1. ALK phos essentially WNL and isos WNL. CBC unremarkable. Negative or WNL were AST, ALT, Alb, customer success intern, and QG 02/18/15 Hand/wrist films showed progressive RA. ESR 37. CRP 1.3. Negative or UR were: AST, ALT,alb, CBC, creat, and QG 04/16/15 ESR/CRP 46/1.9. AST, ALT, alb, creat, and CBC WNL or unremarkable. 07/15/15 CRP/ESR 1.2/38. WNL were AST, ALT, alb, CBC, and customer success intern. 10/15/15 CRP 1.0. ESR 30. LUIS CARLOS 1:80 homogeneous. Negative or WNL or UR were: AST, alb, ALT, customer success intern, SPEP/UPEP, B12, syph, Ro and La 03/15/16 CRP1.3. ESR 34. WNL or UR were: AST, ALT, alb, CBC, customer success intern and QG 05/19/16 ESR/CRP 46/2.5. WNL or UR were: Alb, CBC, AST, ALT, and creat. 07/04/17 CRP 0.9. WNL or UR were: CBC, AST, ALT, QFG, HCV by PCR, and customer success intern. DXA not done. 12/25/17 G 337 (called at time of result and advised). Alk phos 123 (122). WNL or UR were rest of CMP and CBC 12/27/18 ESR/CRP 38/1.2. CMP G 389. Alk phos 135 (repeat with isos 132 but isos negative). Negative - CBC, QFG, Hep sero (C pres positive but PCR neg) N/D Lipids 01/15/19 HDL 46. Alk phos isotretinoin 135 (liver) Negative or normal were: DEXA, rest of lipids, SSA/B and 5'nucleotidase 02/05/19 CBC UR. CMP. Alk phos 124 (122). G 307 02/27/19 ESR/CRP 45/1.3. CMP customer success intern 1.38. K 5.9 (advised to go to ER). TG 204 Negative: CBC, QFG, Hep sero. ASSESSMENT/PLAN: Uncontrolled HTN Plan: She is here with a test car driver who will take her to the ER across the street to address her BP, and then will need close f/u with PCP. (874.0) Rheumatoid arthritis (primary encounter diagnosis) Comment: sero positive, erosive, -Has tried MTX, HCQ, Humira, Enbrel and Orencia. Was on Xeljanz, HCQ and MTX but d/c due to transportation/compliance/visit/lab issues. Previously discussed options going forward including alternate TNF (declined), Actemra and Rituxan. Did well on Xeljanz 11 mg daily. no hx of bowel problems, perforation, diverticulitis and no lipid issues. LTFU for a year due to transportation issues. Off all meds. Worse. Bridged for pain with -APAP/tramadol (avoiding steroids due to comorbidity) and r/s Xeljanz. Much better. Reduce tramadol to one daily for 2 weeks and then stop. -Patient underwent right knee arthroplasty in May 2017. Plan: Continue Xeljanz. Labs. She did not want to wait for the second Shingrix and preferred to get started on Xeljanz and then get the second shot. Labs today for Xeljanz and check for toxicity of current therapy and assess dz activity. -Lab and Imaging Orders Placed This Encounter Procedures CBC WITH DIFF RHEUMATOID FACTOR C-REACTIVE PROTEIN COMP. METABOLIC PANEL (37700) LIPID PANEL (61204)(TOTAL CHOLESTEROL, TRIGLYCERIDES, HDL) Dry eyes, but SSA and B negative. Consider MSG biopsy. Her bone density was normal. Will re check around 01/2021 (V58.69) Long-term use of immunosuppressant medication. -have discussed with potential adverse effects with use of biologics such as suppression of immune system making pt more prone to infections, to hold the medication if she has any signs fo any infection and to restart only after infection has cleared, reactivation of infections particularly TB and hepatitis B, C, fungal infections, risk of demyelinating disorders and to stop medication immediatly if she notes any weakness or paraesthesias, risk of malignancy -pt councelled on the adverse effects of Methotrexate including teratogenicity and need for reliablecontraception, Alopecia, infection, liver dysfunction and myelosupression, including the importance of taking daily Folic acid May need NMSC checks Advised to see PCP for age and gender appropriate screening. Next Q 02/2020 RTC 12 weeks. Viridiana Smith LVN - 05/21/2019 9:20 AM Enrico Juan is a 59 year old female. BP today is elevated. Patient stated she was taken off of her BP medication by PCP. Patient denies headache, blurred vision, chest pain, SOB. Patient states she feels fine. documented in this encounter Plan of Treatment Date Type Specialty Care Team Description 08/20/2019 Office Visit Rheumatology Jan Mosher DO [address] [place] [place], [place] [id number] Name Type Priority Associated Diagnoses Date/Ti me CBC WITH DIFF LAB Routine Therapeutic drug 05/21/2019 9:42 AM monitoring CDT RHEUMATOID FACTOR LAB Routine Therapeutic drug 2019 9:42 AM monitoring CDT C-REACTIVE PROTEIN LAB Routine Therapeutic drug 05/20 9:42 AM monitoring CDT COMP. METABOLIC PANEL LAB Routine Therapeutic drug 9:42 AM (57981) monitoring CDT LIPID PANEL (92427)(TOTAL LAB Routine Therapeutic parker g 05/21/2019 9:42 AM CHOLESTEROL, monitoring CDT TRIGLYCERIDES, HDL) CBC WITH DIFFERENTIAL LAB Routine Therapeutic drug 9:42 AM monitoring CDT Health Maintenance Due Date Last Done Comments PNEUMOCOCCAL 0-64 YEARS COMBINED 1968 SERIES (1 of 1 - PPSV23) URINE MICROALBUMIN 1972 DTaP,Tdap,and Td Vaccines (1 - 1973 Tdap) FOOT EXAM 1980 COLONOSCOPY 2012 Zoster Recombinant Vaccine 2012 (SHINGRIX) (1 of 2) HgA1C 11/16/2017 05/16/2017, 01/13/2012 Breast Cancer Screening 02/01/2018 02/01/2017 (MAMMOGRAM) INFLUENZA VACCINE (#1) 2018 PAP SMEAR 01/27/2020 01/26/2017 EYE EXAM 02/28/2020 02/27/2019, 02/19/2019, 02/05/2019, Additional history exists LDL-C 02/28/2020 02/27/2019, 01/15/2019, 01/13/2012 CREATININE (SERUM) 02/29/2020 02/28/2019, 02/27/2019, 02/05/2019, Additional history exists HEPATITIS C (HCV) SCREEN Completed 02/27/2019, 12/27/2018, 12/27/2016, Additional history exists documented as of this encounter Implants Implanted Type Area Brake Mechanic Device Shelf Model / Identifier Expiration Date Ser ial / Lot [employer] CEMENT Right: Biomet 05/13 [id number] / Implanted: Qty: 1 on 05/15/2017 by Rex Argueta MD at [facility] Knee 8 [id number] / [id number] Open Box Femoral-Right KNEE Right: Biomet 04/2026 [id number] / Implanted: Qty: 1 on 05/15/2017 by Rex Argueta MD at [facility] Knee J [id number] / [id number] Adc Plate Tibial Cruciate 67 Mm - [id number] PLATE Right: Biomet 01/16/2027 [id number] / Implanted: Qty: 1 on 05/15/2017 by Rex Argueta MD at [facility] Knee J [id number] / [id number] Adc Patella 31 X 8 Mm - [id number] Right: [employer]omet 12/31/2021 [id number] / Implanted: Qty: 1 on 05/15/2017 by Rex Argueta MD at [facility] Knee 6 [id number] / [id number] Bearing Tib 10 X 63/67 Mm #[id number] - [id number] Right: [employer] 01/24/2022 [id number] / Implanted: Qty: 1 on 05/15/2017 by Rex Argueta MD at [facility] Knee 7 [id number] / [id number] documented as of this encounter Results Not on filedocumented in this encounter Visit Diagnoses Diagnosis Rheumatoid arthritis, seropositive - [facility] kathrin Rheumatoid arthritis Therapeutic drug monitoring Encounter for therapeutic drug monitorin g documented in this encounter Insurance Payer Benefit Plan Subscriber ID Effective Phone Address Typ e / Group Dates [facility] BCBS OF [id number] 2012-Pres [phone] [address] PPO/POS [place] - OUT ent [id number] [place] [address] [facility] xxxxxxxxx 2018-Aurelio Medic aid [employer]ALTH[employer] STAR PLUS nt PLAN - MANAGED MEDICAID documented as of this encounter
--- OUTSIDE RECORDS SUMMARY | 2019-08-10 18:25 | XMS REPORT ---
:1960 Author Organization [facility] t Address [address] [place] [address] Care Team Providers Name Role Phone Pcp-Lab Attending Clinician Unavailable Ness Mosher DO Attending Clinician Reggie ZELAYA Attending Clinician Unavailable Reggie ZELAYA Admitting Clinician Unavailable Problems This patient has no known problems. Allergies, Adverse Reactions, Alerts This patient has no known allergies or adverse reactions. Medications This patient has no known medications. Procedures This patient has no known procedures. Encounters Start End Encounter Admission Attending Care Care Encounter Source Date/Time Date/Time Type Type Clinicians Facility Department ID 2019-05-21 2019-05-21 Certified Respiratory Therapist Pcp-Lab [facility] [id number] 09:36:08 10:22:44 Visit PRIMARY [id number] CARE [id number] SHELLY [id number] 2019-05-21 2019-05-21 Office Vidhi [facility] [id number] 09:05:30 09:34:34 Visit Jan Arzola PRIMARY [id number] CARE [id number] SHELLY [id number] Results Test Description Test Time Test Comments Results Result Comments Source POCT-GLUCOSE METER 2018-10-17 21:54:00 Test Item Value Reference Range Interpretation Comme nts POC-GLUCOSE METER (BEAKER) (test 194 mg/dL 70-110 H TESTED AT [address] code = 1538) [facility] 7703 0 POCT-GLUCOSE [id number] 16:50:00 Test Item Value Reference Range Interpretation Comments POC-GLUCOSE METER 134 mg/dL 70-110 H TESTED AT [place] [address] ([facility]) (test code = JENIFER Lemons [facility] 1538) [address] POCT-GLUCOSE [id number] 12:10:00 Test Item Value Reference Range Interpretation Comments POC-GLUCOSE METER 155 mg/dL 70-110 H TESTED AT [place] [address] ([facility]) (test code = JENIFER Lemons [facility] 1538) 80251 POCT-GLUCOSE [id number] 05:34:00 Test Item Value Reference Range Interpretation Comments POC-GLUCOSE METER 249 mg/dL 70-110 H TESTED AT [place] [address] ([facility]) (test code = JENIFER Lemons [facility] 1538) 65233 POCT-GLUCOSE [id number] 00:09:00 Test Item Value Reference Range Interpretation Comments POC-GLUCOSE METER 236 mg/dL 70-110 H TESTED AT [place] [address] ([facility]) (test code = JENIFER Lemons [facility] 1538) 09185 POCT-GLUCOSE [id number] 21:17:00 Test Item Value Reference Range Interpretation Comments POC-GLUCOSE METER 153 mg/dL 70-110 H TESTED AT [place] [address] ([facility]) (test code = JENIFER Lemons [facility] 1538) 569[address] POCT-GLUCOSE [id number] 18:23:00 Test Item Value Reference Range Interpretation Comments POC-GLUCOSE METER 148 mg/dL 70-110 H TESTED AT [place] [address] ([facility]) (test code = ALEXANDROWV Cristo [facility] 1538) [address] FL, UGI, WITHOUT [id number] 17:33:00Reason for exam:->Please evaluate with thin barium swallow; lap band deflated.FINAL REPORT INDICATION:Mid chest pain with swallowing prior gastric lap band. Immediately before the procedure the gastric lap band was deflated. TECHNIQUE: Upper GI exam singlecontrast (thin barium).Fluoroscopy time 0.4 minutes.Fluoroscopic images 4. FINDINGS / IMPRESSION:In the supine reverse Trendelenburg position the patient was administered thin barium by mouth. Contrastpassed normally down the esophagus, through the gastric lap band into the stomach. Esophageal peristalsis was normal. Signed: Shen Pennort Verified Date/Time: 10/16/2018 17:33:25 Reading Location: [facility] C013X Ortho Consult Reading Room -GLUCOSE [id number] 05:59:00 Test Item Value Reference Range Interpretation Comments POC-GLUCOSE METER 192 mg/dL 70-110 H TESTED AT [place] [address] ([facility]) (test code = JENIFER Lemons [facility] 1538) 58944 POCT-GLUCOSE [id number] 00:39:00 Test Item Value Reference Range Interpretation Comments POC-GLUCOSE METER 172 mg/dL 70-110 H TESTED AT [place] [address] ([facility]) (test code = JENIFER Lemons [facility] 1538) 09802 POCT-GLUCOSE [id number] 22:13:00 Test Item Value Reference Range Interpretation Comments POC-GLUCOSE METER 187 mg/dL 70-110 H TESTED AT [place] [address] ([facility]) (test code = JENIFER Lemons [facility] 1538) 15559 RAD, CHEST, 1 VIEW, NON [id number] 18:59:00Reason for exam:->preopShould this be performed at the bedside?->YesFINAL REPORT Chest, one view. HISTORY: preop COMPARISON: Radiograph from earlier today IMPRESSION: There is a slightly hazy, nodular opacity which measures 1.5 cm. A follow-up radiograph is recommended in three months to document resolution. The cardiac silhouette is normal insize and unchanged. No pleural effusion or pneumothorax. Pulmonary venous congestion. No acute bonyabnormality. Signed: Chan Olson Verified Date/Time: 10/15/2018 18:59:09 Reading Location: [place] [address] C013W Consult Reading Room BASIC METABOLIC [id number] 18:46:00 Test Item Value Reference Range Interpretation Comments SODIUM (BEAKER) 137 meq/L 136-145 (test code = 381) POTASSIUM (BEAKER) 4.1 meq/L 3.5-5.1 Specimen slightly (test code = 379) hemolyzed CHLORIDE (BEAKER) 105 meq/L 98-107 (test code = 382) CO2 (BEAKER) (test 23 meq/L 22-29 code = 355) BLOOD UREA NITROGEN 14 mg/dL 7-21 (BEAKER) (test code = 354) CREATININE (BEAKER) 0.84 mg/dL 0.57-1.25 Specimen slightly (test code = 358) hemolyzed GLUCOSE RANDOM 203 mg/dL 70-105 H (BEAKER) (test code = 652) CALCIUM (BEAKER) 8.7 mg/dL 8.4-10.2 (test code = 697) EGFR (BEAKER) (test 70 mL/min/1.73 ESTIMA AGNES GFR IS code = 1092) sq m NOT ACCURATE CREATININE CLEARANCE IN PREDICTING GLOMERULAR FILTRATION RATE . ESTIMATED GFR I S NOT APPLICABLE FOR DIALYSIS PATIEN TS. HEMOGLOBIN [id number] 18:36:00 Test Item Value Reference Range Interpretation Comments HEMOGLOBIN A1C (BEAKER) (test code = 9.7 % 4.3-6.1 H 368) POCT-GLUCOSE [id number] 18:14:00 Test Item Value Reference Range Interpretation Comments POC-GLUCOSE METER 207 mg/dL 70-[address] [facility] 67[address] (BEAKER) (test code = JENIFER Lemons [facility] 1538) 83181 CBC W/PLT COUNT & AUTO [id number] 18:13:00 Test Item Value Reference Range Interpretation Comments WHITE BLOOD CELL COUNT (BEAKER) 7.0 K/ L 3.5-10.5 (test code = 775) RED BLOOD CELL COUNT (BEAKER) 4.13 M/ L 3.93-5.22 (test code = 761) HEMOGLOBIN (BEAKER) (test code = 11.9 GM/DL 11.2-15.7 410) HEMATOCRIT (BEAKER) (test code = 35.4 % 34.1-44.9 411) MEAN CORPUSCULAR VOLUME (BEAKER) 85.7 fL 79.4-94.8 (test code = 753) MEAN CORPUSCULAR HEMOGLOBIN 28.8 pg 25.6-32.2 (BEAKER) (test code = 751) MEAN CORPUSCULAR HEMOGLOBIN CONC 33.6 GM/DL 32.2-35.5 (BEAKER) (test code = 752) RED CELL DISTRIBUTION WIDTH 15.0 % 11.7-14.4 H (BEAKER) (test code = 412) PLATELET COUNT (BEAKER) (test 244 K/CU MM 150-450 code = 756) MEAN PLATELET VOLUME (BEAKER) 9.5 fL 9.4-12.3 (test code = 754) NUCLEATED RED BLOOD CELLS 0 /100 WBC 0-0 (BEAKER) (test code = 413) NEUTROPHILS RELATIVE PERCENT 65 % (BEAKER) (test code = 429) LYMPHOCYTES RELATIVE PERCENT 22 % (BEAKER) (test code = 430) MONOCYTES RELATIVE PERCENT 9 % (BEAKER) (test code = 431) EOSINOPHILS RELATIVE PERCENT 4 % (BEAKER) (test code = 432) BASOPHILS RELATIVE PERCENT 0 % (BEAKER) (test code = 437) NEUTROPHILS ABSOLUTE COUNT 4.56 K/ L 1.56-6.13 (BEAKER) (test code = 670) LYMPHOCYTES ABSOLUTE COUNT 1.53 K/ L 1.18-3.74 (BEAKER) (test code = 414) MONOCYTES ABSOLUTE COUNT (BEAKER) 0.61 K/ L 0.24-0.36 H (test code = 415) EOSINOPHILS ABSOLUTE COUNT 0.27 K/ L 0.04-0.36 (BEAKER) (test code = 416) BASOPHILS ABSOLUTE COUNT (BEAKER) 0.03 K/ L 0.01-0.08 (test code = 417) IMMATURE GRANULOCYTES-RELATIVE 0 % 0-1 PERCENT (BEAKER) (test code = 9399)
--- OUTSIDE RECORDS SUMMARY | 2019-08-10 18:25 | XMS REPORT | Summary of Care ---
:1960 Author Organization [facility] - [facility] Address [address] [place] [address] Care Team Providers Name Role Phone Christiano Núñez Primary Care Provider Reason for Visit Reason Comments Refill Request Encounter Details Date Type Department Care Team Description 05/13/2019 Refill [facility] Internal PertRa hafsa alvarado, DO Refill Request Medicine [address] [place] [address] Primary Care Pavilio n [phone] [address], [phone] (F ax) [address] [place] [phone] Allergies Active Allergy Reactions Severity Noted Date Comments Iodine And Iodide Containing Products Rash 01/2016 documented as of this encounter (statuses as of 05/13/2019) Medications Medication Sig Dispensed Refills Start Date [...] NEEDLE UF 31 gauge x 5/16" Ndle moxifloxacin Place 1 Drop 3 mL 0 02/04/2019 Act nevaeh (VIGAMOX) 0.5 % in left eye ophthalmic 4 (four) dropsIndications: times daily. Proliferative diabetic retinopathy of both eyes with macular edema associated with type 2 diabetes mellitus tofacitinib (XELJANZ Take 11 mg 90 tablet 1 02/27/2019 Active XR) 11 mg by mouth [id number]: daily. Rheumatoid arthritis, seropositive, Therapeutic drug monitoring TRAMADOL 50 mg TAKE 1 120 tablet 0 05/13/2019 Act nevaeh tabletIndications: TABLET BY Rheumatoid MOUTH UP TO arthritis, FOUR TIMES seropositive DAILY NEEDED FOR PAIN traMADol 50 mg TAKE 1 120 tablet 0 03/25/2019 05/13/2019 Di scontinued tabletIndications: TABLET BY Rheumatoid MOUTH UP TO arthritis, FOUR TIMES seropositive DAILY NEEDED FOR PAIN documented as of this encounter (statuses as of 05/13/2019) Active Problems Problem Noted Date Proliferative diabetic retinopathy of both eyes with m acular edema 01/21/2019 associated with type 2 diabetes mellitus Overview: Added automatically from request for akshat juvencio [id number] NSVT (nonsustained ventricular tachycardia) 05/19/2017 Total knee [...] of hand 11/07/2012 Overview: ICD10 Diagnosis Term Safety Inspector Utility Diabetic peripheral neuropathy 11/06/2012 Diabetes mellitus type 2, uncontrolled, without compli cations 01/13/2012 Overview: ICD10 Diagnosis Term Safety Inspector Utility Obesity 01/13/2012 Overview: ICD10 Diagnosis Term Safety Inspector Utility HLD (hyperlipidemia) 01/13/2012 Overview: ICD10 Diagnosis Term Safety Inspector Utility Elevated BP 01/13/2012 Mild vitamin D deficiency 01/13/2012 Steroid long-term use 01/13/2012 Encounter for long-term (current) use of other medicat ions 07/19/2011 Raynaud's syndrome 07/28/2009 Rheumatoid arthritis 07/28/2009 Overview: ICD10 Diagnosis Term Safety Inspector Utility Encounter for long-term (current) use of steroids 07/11 Chronic pain syndrome 07/28/2009 documented as of this encounter (statuses as of 05/13/2019) Social History Tobacco Use Types Packs/Day Years [...] Treatment Date Type Specialty Care Team Description 05/21/2019 [place] [address] [place] [address] [phone] Health Maintenance Due Date Last Done Comments [...] of this encounter Implants Implanted Type Area Database Dba Device Shelf Model / Identifier Expiration Date Ser ial / Lot Palacos R & G Bone Cement CEMENT Right: Biomet 05/13 [id number] / Implanted: Qty: 1 on 05/15/2017 by Rex Argueta MD at [facility] Knee 8 [id number] / [id number] Ps Open Box Femoral-Right KNEE Right: Biomet 04/2026 [id number] / Implanted: Qty: 1 on 05/15/2017 by Rex Argueta MD at [facility] Knee J [id number] / [id number] Adc Plate Tibial Cruciate 67 Mm - [id number] PLATE Right: Biomet 01/16/2027 [id number] / Implanted: Qty: 1 on 05/15/2017 by Rex Argueta MD at [facility] Knee J [id number] / [id number] Adc Patella 31 X 8 Mm - [id number] Right: Biomet 12/31/2021 [id number] / Implanted: Qty: 1 on 05/15/2017 by Rex Argueta MD at [facility] Knee 6 [id number] / [id number] Bearing Tib 10 X 63/67 Mm #[id number] - [id number] Right: Biomet 01/24/2022 [id number] / Implanted: Qty: 1 on 05/15/2017 by Rex Argueta MD at [facility] Knee 7 [id number] / [id number] documented as of this encounter Results Not on filedocumented in this encounter Visit Diagnoses Diagnosis Rheumatoid arthritis, seropositive Rheumatoid arthritis documented in this encounter Insurance Payer Benefit Plan Subscriber ID Effective Phone Address Typ e / Group Dates [place]BS OF [id number] 2012-Pres [phone] [address] PPO/POS [place] - OUT ent [id number] [place] [address] [facility] xxxxxxxxx 2018-[facility] STAR PLUS PLAN - MANAGED MEDICAID documented as of this encounter
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
--- OUTSIDE RECORDS SUMMARY | 2019-08-10 18:26 | XMS REPORT | Summary of Care ---
:1960 Author Organization [facility] Address [address] [place] [address] Care Team Providers Name Role Phone Christiano Núñez Yoly Primary Care Provider Reason for Visit Reason Comments LAB Encounter Details Date Type Department Care Team Description 05/21/2019 Take Away Attendant [facility] [address] [place] [address] [phone] CLINICS LAB Pcp-Lab Primary Care [facility] n [address], [place] A; [facility] [address] [place] [address] Allergies Active Allergy Reactions Severity Noted Date Comments Iodine And Iodide Containing Products Rash 01/2016 documented as of this encounter (statuses as of 05/21/2019) Medications Medication Sig Dispensed Refills Start Date End Date Status insulin aspart (NOVOLOG inject 12 Units 5 Each 3 09/01/2014 Active FLEXPEN) 100 unit/mL under the skin 3 injectionIndications: (three) times Type II or unspecified daily before type diabetes mellitus meals. without mention of complication, uncontrolled Dextran 70-Hypromellose Place 1 Drop in 0 Active (ARTIFICIAL TEARS) Dpet both eyes as needed. cycloSPORINE (RESTASIS) Place 1 Drop in 0 Active 0.05 % drops both eyes every 12 (twelve) hours. LANTUS SOLOSTAR U-100 INJECT 20 UNITS 2 01/17/2019 Active INSULIN 100 unit/mL (3 SC QAM mL) injection ACCU-CHEK SOFTCLIX 2 (two) times 11 01/09/2019 Active LANCETS Misc daily. BD INSULIN PEN NEEDLE USE QID 2 01/17/2019 Active UF 31 gauge x 5/16" Ndle tofacitinib (XELJANZ Take 11 mg by 90 tablet 1 02/27/2019 Active XR) 11 mg mouth daily. [id number]: Rheumatoid arthritis, seropositive, Therapeutic drug monitoring TRAMADOL 50 mg TAKE 1 TABLET BY 120 tablet 0 05/13/2019 Active tabletIndications: MOUTH UP TO FOUR Rheumatoid arthritis, TIMES DAILY seropositive NEEDED FOR PAIN documented as of this encounter (statuses as of 05/21/2019) Active Problems Problem Noted Date Proliferative diabetic retinopathy of both eyes with m acular edema 01/21/2019 associated with type 2 diabetes mellitus Overview: Added automatically from request for akshat juvencio [id number] NSVT (nonsustained ventricular tachycardia) 05/19/2017 Total knee [...] of hand 11/07/2012 Overview: ICD10 Diagnosis Term Molybdenum Steamer Operator Utility Diabetic peripheral neuropathy 11/06/2012 Diabetes mellitus type 2, uncontrolled, without compli cations 01/13/2012 Overview: ICD10 Diagnosis Term Molybdenum Steamer Operator Utility Obesity 01/13/2012 Overview: ICD10 Diagnosis Term Molybdenum Steamer Operator Utility HLD (hyperlipidemia) 01/13/2012 Overview: ICD10 Diagnosis Term Molybdenum Steamer Operator Utility Elevated BP 01/13/2012 Mild vitamin D deficiency 01/13/2012 Steroid long-term use 01/13/2012 Encounter for long-term (current) use of other medicat ions 07/19/2011 Raynaud's syndrome 07/28/2009 Rheumatoid arthritis 07/28/2009 Overview: ICD10 Diagnosis Term Molybdenum Steamer Operator Utility Encounter for long-term (current) use of [...] Team Description 08/20/2019 Office Visit Rheumatology Jan Mosher, DO [address] [place] [address] [phone] Health Maintenance Due Date Last Done Comments [...] of this encounter Implants Implanted Type Area Casino Cage Manager Device Shelf Model / Identifier Expiration Date Ser ial / Lot Palacos R [employer] G Bone Cement CEMENT Right: Biomet 05/13 [id number] / Implanted: Qty: 1 on 05/15/2017 by Rex Argueta MD at [facility] Knee 8 [id number] / [id number] Ps Open Box Femoral-Right KNEE Right: Biomet 04/2026 [id number] / Implanted: Qty: 1 on 05/15/2017 by Rex Argueta MD at [facility] Knee J [id number] / [id number] Adc Plate Tibial Cruciate 67 Mm - [id number] PLATE Right: Biomet 01/16/2027 [id number] / Implanted: Qty: 1 on 05/15/2017 by Rex Argueta MD at [facility] Knee J [id number] / [id number] Adc Patella 31 X 8 Mm - [id number] Right: Biomet 12/31/2021 [id number] / Implanted: Qty: 1 on 05/15/2017 by Rex Argueta MD at [facility] Knee 6 [id number] / [id number] Bearing Tib 10 X 63/67 Mm #[id number] - [id number] Right: Biomet 01/24/2022 [id number] / Implanted: Qty: 1 on 05/15/2017 by Rex Argueta MD at [facility] Knee [id number] / [id number] documented as of this encounter Results Not on filedocumented in this encounter Insurance Payer Benefit Plan Subscriber ID Effective Phone Address Typ e / Group Dates [facility] BCBS OF [id number] 2012-Pres [phone] [address] PPO/POS [place] - OUT ent [id number] [place] [address] [facility] xxxxxxxxx 2018-Aurelio Medic aid HEALTHCARE COMM STAR PLUS nt PLAN - MANAGED MEDICAID documented as of this encounter
[2019-08-10 20:02] LABS: Absolute Lymphocytes (CBC) 3.1 K/uL (0.7-4.9); Basophils % 0.6 % (0-1.3); Hematocrit 39.3 % (36.0-45.0); MPV 7.6 fL (7.6-11.3); RBC Red Blood Cell Count 4.64 M/uL (3.86-4.86)
[2019-08-10 20:10] LABS: Protime INR 0.9
[2019-08-10 20:23] LABS: Barbiturates NEGATIVE (NEGATIVE); Benzodiazepines NEGATIVE (NEGATIVE); Cocaine NEGATIVE (NEGATIVE); METHAMPHETAM NEGATIVE (NEGATIVE); Methadone NEGATIVE (NEGATIVE); Opiates POSITIVE (NEGATIVE); Phencyclidine NEGATIVE (NEGATIVE); THC Cannibis NEGATIVE (NEGATIVE)
[2019-08-10 20:26] LABS: ALT/SGPT 19 U/L (12-78); AST/SGOT 14 U/L (15-37); Albumin 3.3 g/dL (3.4-5.0); Alkaline Phosphatase 146 U/L (45-117); BUN Blood Urea Nitrogen 17 mg/dL (7-18); Bicarbonate 29 mmol/L (21-32); Bilirubin Direct < 0.1 mg/dL (0-0.2); Bilirubin Total 0.2 mg/dL (0.2-1.0); Glucose Level 275 mg/dL (74-106); Magnesium 1.7 mg/dL (1.8-2.4); NT PRO-BNP 312 pg/mL (<125); Potassium 4.2 mmol/L (3.5-5.1); Protein, Total 7.9 g/dL (6.4-8.2); Sodium Level 137 mmol/L (136-145); Troponin (Emerg Dept Use Only) < 0.02 ng/mL (0.0-0.045)
[2019-08-10] MEDS ORDERED: ONDANSETRON 4 MG/2 ML VIAL ONE (20:29)
[2019-08-10] MEDS ORDERED: MORPHINE 4 MG/ML SYR ONE (20:29)
--- NOTE | 2019-08-10 20:34 | RAD REPORT ---
EXAM DESCRIPTION: RAD - Chest Single View - 08/10/2019 8:23 pm CLINICAL HISTORY: CHEST PAIN Chest pain. COMPARISON: Chest Single View dated 10/15/2018; Chest Single View dated 09/25/2018; Chest Single View d ated 06/27/2018; Chest Single View dated 06/05/2017 FINDINGS: Portable technique limits examination quality. The lungs are grossly clear. The heart is upper limit of normal in size. No displaced fractures. IMPRESSION: No acute intrathoracic process suspected.
[2019-08-10] MEDS ORDERED: DIPHENHYDRAMINE 50 MG/ML VIAL ONE (21:43)
[2019-08-10 21:53] LABS: Urine Blood 1+ (NEG); Urine Glucose 2+ (NEG); Urine Protein 1+ (NEG); Urine Specific Gravity 1.025 (1.005-1.030); Urine pH 5.5 (5.0-7.0)
[2019-08-10] MEDS ORDERED: CEPHALEXIN 250 MG CAP ONE (23:57)
[2019-08-11] MEDS ORDERED: KETOROLAC 30 MG/ML INJ ONE (00:19)
[2019-08-11 00:28] VITALS: TEMP 98.5
[2019-08-11 00:34] VITALS: BP 109/41; O2SAT 99
--- NOTE | 2019-08-11 12:34 | RAD REPORT ---
EXAM DESCRIPTION: CT - Abdomen Pelvis W Contrast - 08/11/2019 3:06 am CLINICAL HISTORY: The patient is 59 years old and is Female; DYSPNEA TECHNIQUE: Axial computed tomographic angiography images of the chest and axial computed tomography images of the abdomen and pelvis with intravenous contrast. This CT exam was performed using one or more of the following dose reduction techniques: automated exposure control, adjustment of the mA and/or kV according to patient size, and/or use of iterative reconstruction technique. Delayed imaging was performed. MIP reconstructed images were created and reviewed. Oblique reformatted images were created and reviewed. DLP: 2086 mGy*cm COMPARISON: Chest radiograph of the same day and CT of the abdomen and pelvis without contrast dated 10/15/2018. FINDINGS: CHEST: AORTA: No acute findings. No aortic aneurysm. No dissection. PULMONARY ARTERIES: Unremarkable as visualized. No pulmonary embolism is identified. GREAT VESSELS OF AORTIC ARCH: No acute findings. No dissection. No arterial occlusion or signi ficant stenosis. LUNGS: Partially calcified left upper lobe nodule measuring 7 mm (series 401, image 37). Scattered right breast opacities in the perihilar regions and lung bases. PLEURAL SPACE: Unremarkable. No significant effusion. No pneumothorax. HEART: Unremarkable. No cardiomegaly. No significant pericardial effusion. THYROID: Visualized thyroid is normal. ABDOMEN: LIVER: Unremarkable. No mass. GALLBLADDER AND BILE DUCTS: Prior cholecystectomy. No ductal dilation. PANCREAS: Unremarkable. No ductal dilation. No mass. SPLEEN: Calcified splenic granulomas. ADRENALS: Unremarkable. No mass. KIDNEYS AND URETERS: Parapelvic left renal cyst measuring 4.2 x 3.6 cm. No hydronephrosis. No solid mass. STOMACH AND BOWEL: Diverticulosis without CT evidence of acute diverticulitis. Prior ring gastroplasty, relatively unchanged from prior exam. No obstruction. PELVIS: APPENDIX: Minimal cecal an sigmoid The appendix is seen and is within normal limits. BLADDER: Bladder is decompressed. REPRODUCTIVE: Unremarkable as visualized. CHEST, ABDOMEN and PELVIS: INTRAPERITONEAL SPACE: Unremarkable. No significant fluid collection. No free air. BONES/JOINTS: Diffuse osteopenia with thoracolumbar DISH. Disc space narrowing and vacuum phenomenon. Diffuse osteopenia. No acute fracture. No dislocation. SOFT TISSUES: See above. VASCULATURE: Mild vascular calcifications. LYMPH NODES: Unremarkable. No enlarged lymph nodes. IMPRESSION: 1. No pulmonary embolism. No acute intra-abdominal or pelvic abnormality. 2. Scattered groundglass opacities and interlobular septal thickening, likely mild interstitial obed ma. No focal consolidation or pleural effusion. 3. Partially calcified 7 mm left upper lobe nodule. 3-6 month follow-up chest CT is recommended. 4. Parapelvic left renal cyst measuring 4.2 x 3.6 cm. 5. Minimal cecal and sigmoid diverticulosis without CT evidence of acute diverticulitis. 6. Prior granulomatous disease. Electronically signed by: Fredis Cronin DO 08/10/2019 11:05 PM CDT Due to temporary technical issues with the PACS/Fluency reporting system, reports are being signed by the in house radiologist without review as a courtesy to ensure prompt reporting. The interpreting r adiologist is fully responsible for the content of the report.
--- NOTE | 2019-08-11 14:06 | EKG ---
Test Date: 2019-08-10 Test Time: 20:17:22 Distribution Coordinator: ESAU MEASUREMENT RESULTS: Intervals: Rate: 66 MT: 130 QRSD: 82 QT: 408 QTc: 427 [place]: P: 66 MT: 130 QRS: -2 T: 55 INTERPRETIVE STATEMENTS: Normal sinus rhythm Normal ECG Compared to ECG 10/15/2018 09:42:37 No significant changes Electronically Signed On 08-11-19 14:05:53 CDT by Tarun Edward
--- NOTE | 2019-08-12 18:25 | ER ---
Nurse's Notes [facility] Name: Tamy Martinez Age: 59 yrs Sex: Female : 1960 Arrival Date: 08/10/2019 Time: 18:23 Bed 18 Private MD: Christiano Núñez E Diagnosis: Unspecified abdominal pain;Generalized muscle pain;Dyspnea;Urinary tract infection, site not specified Presentation: 08/09 18:31 Chief complaint: Patient states: right side of body pain, chest, arm and leg since last em night, denies trauma, denies N/V, also report difficulty breathing that started 2 hours ago, denies fever cough, or congestion, pt reports sore throat. Coronavirus screen: Proceed with normal triage. Patient denies a cough. Patient denies shortness of breath or difficulty breathing. Patient denies measured and/or subjective temperature greater than 100.4F prior to today's visit. Patient denies travel on a cruise ship or to a country the [facility] currently lists as an affected area. Patient denies contact with known and/or suspected case of COVID-19. Ebola Screen: Patient negative for fever greater than or equal to 101.5 degrees Fahrenheit, and additional compatible Ebola Virus Disease symptoms Patient denies exposure to infectious person. Patient denies travel to an Ebola-affected area in the 21 days before illness onset. No symptoms or risks identified at this time. Initial Sepsis Screen: Does the patient meet any 2 criteria? No. Patient's initial sepsis screen is negative. Does the patient have a suspected source of infection? No. Patient's initial sepsis screen is negative. Risk Assessment: Do you want to hurt yourself or someone else? Patient reports no desire to harm self or others. Onset of symptoms was August 10, 2019. 18:31 Method Of Arrival: Ambulatory em 18:31 Acuity: HODAN 3 em Historical: - Allergies: 18:35 Iodinated Contrast Media - IV Dye; em - PMHx: 18:35 Diabetes - IDDM; Hypertension resolved after lap band; Rheumatoid Arthritis; em - PSHx: 18:35 ; Cholecystectomy; Knee surgery; Lap band; em - Immunization history:: Adult Immunizations up to date. - Social history:: Smoking status: Patient denies any tobacco usage or history of. Screenin:30 Abuse screen: Denies threats or abuse. Denies injuries from another. Nutritional ca1 screening: No deficits noted. Tuberculosis screening: No symptoms or risk factors identified. Fall Risk IV access (20 points). Assessment: 19:30 General: Appears in no apparent distress. comfortable, Behavior is calm, cooperative, ca1 appropriate for age. Pain: Complains of pain in right lower back Pain radiates to right leg Pain currently is 9 out of 10 on a pain scale. Quality of pain is described as sharp, shooting, Pain began 1 day ago. Is intermittent. Neuro: Level of Consciousness is awake, alert, obeys commands, Oriented to person, place, time, situation. Cardiovascular: Reports chest pain, Heart tones S1 S2 present Capillary refill < 3 seconds Patient's skin is warm and dry. Rhythm is sinus rhythm. Respiratory: Airway is patent Respiratory effort is even, unlabored, Respiratory pattern is regular, symmetrical, Breath sounds are clear bilaterally. GI: Abdomen is round non-distended, Bowel sounds present X 4 quads. Abd is soft and non tender X 4 quads. : Urine is cloudy, Reports urgency, urinary frequency, Denies burning with urination. EENT: No signs and/or symptoms were reported regarding the EENT system. Derm: Skin is intact, is healthy with good turgor, Skin is pink, warm \T\ dry. Musculoskeletal: Circulation, motion, and sensation intact. Capillary refill < 3 seconds. 20:30 Reassessment: Patient appears in no apparent distress at this time. Patient and/or ca1 family updated on plan of care and expected duration. Pain level reassessed. Patient is alert, oriented x 3, equal unlabored respirations, skin warm/dry/pink. 21:15 Reassessment: Patient appears in no apparent distress at this time. Patient and/or ca1 family updated on plan of care and expected duration. Pain level reassessed. Patient is alert, oriented x 3, equal unlabored respirations, skin warm/dry/pink. 22:15 Reassessment: CALLED CT SCAN. rv 23:30 Reassessment: Patient and/or family updated on plan of care and expected duration. Pain rv level reassessed. Patient is alert, oriented x 3, equal unlabored respirations, skin warm/dry/pink. patient is still complaining of pain after the CT scan. awaiting result. updated on the plan of care. 08/10 00:20 Reassessment: Patient and/or family updated on plan of care and expected duration. Pain rv level reassessed. Patient is alert, oriented x 3, equal unlabored respirations, skin warm/dry/pink. Discharge instruction given to patient, verbalized the understanding of instruction. Pt left ED ambulatory tolerating well. Vital Signs: 08/09 18:31 BP 144 / 95; Pulse 75; Resp 18; Temp 98.5; Pulse Ox 97% on R/A; Weight 89.36 kg; Height em 5 ft. 1 in. (154.94 cm); Pain 9/10; 20:26 BP 129 / 50; Pulse 69; Resp 15 S; Pulse Ox 99% on R/A; ca1 21:15 BP 122 / 53; Pulse 65; Resp 15 S; Pulse Ox 99% on R/A; ca1 22:16 BP 129 / 51; Pulse 63; Resp 13; Pulse Ox 100% on R/A; rv 23:00 BP 119 / 42; Pulse 66; Resp 16; Pulse Ox 100% on R/A; rv 23:15 BP 109 / 41; Pulse 64; Resp 15; Pulse Ox 99% on R/A; rv 18:31 Body Mass Index 37.22 (89.36 kg, 154.94 cm) em ED Course: 18:23 Patient arrived in ED. ag5 18:23 Christiano Núñez MD is Private Physician. ag5 18:34 Triage completed. em 18:35 Arm band placed on. em 18:36 Patient placed in waiting room, Patient notified of wait time. em 19:03 Shyla Tamez RN is Primary Nurse. ca1 19:03 Alphonse Rebolledo MD is Attending Physician. mh7 19:30 Patient has correct armband on for positive identification. Placed in gown. Bed in low ca1 position. Call light in reach. Side rails up X2. side framer on. Pulse ox on. NIBP on. Warm blanket given. 19:58 Initial lab(s) drawn, by me, sent to lab. Urine collected: clean catch specimen, ca1 cloudy. Inserted saline lock: 20 gauge in right antecubital area, using aseptic technique. Blood collected. 20:12 Notified ED physician of a critical lab result(s). D DIMER 529, Dr.Rebolledo notified. sg 20:24 XRAY Chest (1 view) In Process Unspecified. EDMS 22:51 CT Chest For PE Angio In Process Unspecified. EDMS 22:51 CT Abd/Pelvis - IV Contrast Only In Process Unspecified. EDMS 23:30 No provider procedures requiring assistance completed. rv 08/10 00:19 IV discontinued, intact, bleeding controlled, No redness/swelling at site. Pressure rv dressing applied. Administered Medications: 08/09 20:25 Drug: morphine 4 mg {Note: rass - .} Route: IVP; Site: right antecubital; ca1 21:16 Follow up: Response: No adverse reaction; Pain is decreased; RASS: Alert and Calm (0) ca1 20:25 Drug: Zofran (Ondansetron) 4 mg Route: IVP; Site: right antecubital; ca1 21:16 Follow up: Response: No adverse reaction; Nausea is decreased ca1 22:03 Drug: Benadryl 25 mg Route: IVP; Site: right antecubital; ca1 23:29 Follow up: Response: No adverse reaction rv 23:53 Drug: KeFLEX 500 mg Route: PO; ea 08/10 00:18 Follow up: Response: No adverse reaction rv 00:18 Drug: TORadol 30 mg Route: IM; Site: right deltoid; rv 00:19 Follow up: Response: Medication administered at discharge. rv Outcome: 08/09 23:54 Discharge ordered by . key 08/10 00:19 Discharged to home ambulatory, with family. rv Condition: stable Discharge instructions given to patient, Instructed on discharge instructions, follow up and referral plans. medication usage, Demonstrated understanding of instructions, follow-up care, medications, Prescriptions given X 1. 00:20 Patient left the ED. rv Signatures: Dispatcher [employer] EDMS Mukesh Roe, RN Dany Contreras RN Tracy Juarez RN RN ea Vicente, Ronaldo, RN RN rv Acob, Cheryl, RN RN [facility] Bernard Kaye ag5 Alphonse Rebolledo MD MD 7
--- NOTE | 2019-08-12 18:25 | EDPHYS ---
Physician Documentation [facility] Name: Tamy Martinez Age: 59 yrs Sex: Female : 1960 Arrival Date: 08/10/2019 Time: 18:23 Bed 18 Private MD: Christiano Núñez E ED Physician Alphonse Rebolledo HPI: 08/09 20:09 This 59 yrs old Female presents to ER via Ambulatory with complaints of mh7 Breathing Difficulty, Side Pain. 20:09 The patient has shortness of breath at rest. Onset: The symptoms/episode began/occurred mh7 today. Duration: The symptoms are intermittent, with no pattern. The patient's shortness of breath is aggravated by light activity, movement, is alleviated by nothing. 20:11 The patient's shortness of breath is aggravated by is alleviated by. Associated signs mh7 and symptoms: Pertinent negatives: chest pain, non-productive cough, productive cough, diaphoresis, dizziness, fever, hemoptysis, loss of consciousness, nausea, numbness in extremities, visual changes, vomiting. Severity of symptoms: At their worst the symptoms were moderate today, in the emergency department the symptoms have improved mildly. Patient states that she started having pain to the right side of her body yesterday while at work including arm, leg, abdomen. She denies any injuries, fever, nausea, vomitng.. Historical: - Allergies: 18:35 Iodinated Contrast Media - IV Dye; em - PMHx: 18:35 Diabetes - IDDM; Hypertension resolved after lap band; Rheumatoid Arthritis; em - PSHx: 18:35 ; Cholecystectomy; Knee surgery; Lap band; em - Immunization history:: Adult Immunizations up to date. - Social history:: Smoking status: Patient denies any tobacco usage or history of. ROS: 20:11 Constitutional: Negative for fever, chills, and weight loss, Eyes: Negative for injury, mh7 pain, redness, and discharge, ENT: Negative for injury, pain, and discharge, Neck: Negative for injury, pain, and swelling, Cardiovascular: Negative for chest pain, palpitations, and edema, Back: Negative for injury and pain, : Negative for injury, bleeding, discharge, and swelling, Skin: Negative for injury, rash, and discoloration, Neuro: Negative for headache, weakness, numbness, tingling, and seizure, Psych: Negative for depression, anxiety, suicide ideation, homicidal ideation, and hallucinations, Allergy/Immunology: Negative for hives, rash, and allergies, Endocrine: Negative for neck swelling, polydipsia, polyuria, polyphagia, and marked weight changes, Hematologic/Lymphatic: Negative for swollen nodes, abnormal bleeding, and unusual bruising. Exam: 20:11 Constitutional: This is a well developed, well nourished patient who is awake, alert, mh7 and in no acute distress. Head/Face: Normocephalic, atraumatic. Eyes: Pupils equal round and reactive to light, extra-ocular motions intact. Lids and lashes normal. Conjunctiva and sclera are non-icteric and not injected. Cornea within normal limits. Periorbital areas with no swelling, redness, or edema. ENT: Nares patent. No nasal discharge, no septal abnormalities noted. Tympanic membranes are normal and external auditory canals are clear. Oropharynx with no redness, swelling, or masses, exudates, or evidence of obstruction, uvula midline. Mucous membranes moist. Neck: Trachea midline, no thyromegaly or masses palpated, and no cervical lymphadenopathy. Supple, full range of motion without nuchal rigidity, or vertebral point tenderness. No Meningismus. Chest/axilla: Normal chest wall appearance and motion. Nontender with no deformity. No lesions are appreciated. Cardiovascular: Regular rate and rhythm with a normal S1 and S2. No gallops, murmurs, or rubs. Normal PMI, no JVD. No pulse deficits. Respiratory: Lungs have equal breath sounds bilaterally, clear to auscultation and percussion. No rales, rhonchi or wheezes noted. No increased work of breathing, no retractions or nasal flaring. 20:11 Skin: Warm, dry with normal turgor. Normal color with no rashes, no lesions, and no evidence of cellulitis. 20:11 Neuro: Awake and alert, GCS 15, oriented to person, place, time, and situation. Cranial nerves II-XII grossly intact. Motor strength 5/5 in all extremities. Sensory grossly intact. Cerebellar exam normal. Normal gait. Psych: Awake, alert, with orientation to person, place and time. Behavior, mood, and affect are within normal limits. 20:11 Abdomen/GI: Inspection: abdomen appears normal, Bowel sounds: normal, in all quadrants, Palpation: moderate abdominal tenderness, in the posterior aspect of right lateral abdomen and anterior aspect of right lateral abdomen, Rectal exam: the exam is deferred, because of patient request, Indicators: McBurney's point is not tender, Ordaz's sign is negative, Rovsing's sign is negative, Obturator sign is negative, Psoas sign is negative, Liver: no appreciated palpable abnormalities, Hernia: not appreciated. 20:11 Musculoskeletal/extremity: 20:11 Musculoskeletal/extremity: Extremities: noted in the right arm: pain, noted in the right leg: pain, ROM: limited active range of motion due to pain, in the right arm, right leg, limited passive range of motion due to pain, in the right leg, Circulation is intact in all extremities. Pulses: are normal with no appreciated deficits, Perfusion: the patient is normally perfused throughout, Perfusion: the extremity is normally perfused throughout, Calf tenderness, is absent, Edema, is not appreciated, Sensation intact. Compartment Syndrome exam of affected extremity: is normal. no numbness, no tingling, no sensation deficit, no palor, no weak pulses, Joints: All joints appear normal with full range of motion. DVT Exam: 22:01 ECG was reviewed by the Attending Physician. [facility] Vital Signs: 18:31 BP 144 / 95; Pulse 75; Resp 18; Temp 98.5; Pulse Ox 97% on R/A; Weight 89.36 kg; Height em 5 ft. 1 in. (154.94 cm); Pain 9/10; 20:26 BP 129 / 50; Pulse 69; Resp 15 S; Pulse Ox 99% on R/A; ca1 21:15 BP 122 / 53; Pulse 65; Resp 15 S; Pulse Ox 99% on R/A; ca1 22:16 BP 129 / 51; Pulse 63; Resp 13; Pulse Ox 100% on R/A; rv 23:00 BP 119 / 42; Pulse 66; Resp 16; Pulse Ox 100% on R/A; rv 23:15 BP 109 / 41; Pulse 64; Resp 15; Pulse Ox 99% on R/A; rv 18:31 Body Mass Index 37.22 (89.36 kg, 154.94 cm) em MDM: 19:41 Patient medically screened. [facility] 23:48 Differential diagnosis: Anemia asthma, Bronchitis CHF exacerbation, Chronic Obstructive [facility] Pulmonary Disease Myocardial Infarction pneumonia, pulmonary edema, Pulmonary Embolism. Data reviewed: vital signs, nurses notes, lab test result(s), cardiac enzymes, CBC, electrolytes, urinalysis, EKG, radiologic studies, CT scan, plain films. 23:50 Counseling: I had a detailed discussion with the patient and/or guardian regarding: the [facility] historical points, exam findings, and any diagnostic results supporting the discharge/admit diagnosis, lab results. 08/09 19:35 Order name: Basic Metabolic Panel; Complete Time: 21:08 [facility] 08/09 19:35 Order name: CBC with Diff; Complete Time: 20:09 [facility] 08/09 19:35 Order name: LFT's; Complete Time: 21:08 [facility] 08/09 19:35 Order name: Magnesium; Complete Time: 21:08 [facility] 08/09 19:35 Order name: NT PRO-BNP; Complete Time: 21:08 [facility] 08/09 19:35 Order name: PT-INR; Complete Time: 21:08 [facility] 08/09 19:35 Order name: Troponin (emerg Dept Use Only); Complete Time: 21:08 [facility] 08/09 19:35 Order name: XRAY Chest (1 view); Complete Time: 21:08 [facility] 08/09 19:35 Order name: UDS; Complete Time: 21:08 [facility] 08/09 19:38 Order name: DD; Complete Time: 21:08 [facility] 08/09 20:03 Order name: Urine Dipstick--Ancillary (enter results); Complete Time: 22:21 ct 08/09 21:08 Order name: CPK; Complete Time: 22:21 [facility] 08/09 21:32 Order name: CT Chest For PE Angio [facility] 08/09 21:32 Order name: CT Abd/Pelvis - IV Contrast Only [facility] 08/09 19:35 Order name: EKG; Complete Time: 19:36 [facility] 08/09 19:35 Order name: Cardiac monitoring; Complete Time: 19:58 [facility] 08/09 19:35 Order name: EKG - Nurse/Tech; Complete Time: 20:31 [facility] 08/09 19:35 Order name: IV Saline Lock; Complete Time: 19:58 [facility] 08/09 19:35 Order name: Labs collected and sent; Complete Time: 19:58 mh7 08/09 19:35 Order name: O2 Per Protocol; Complete Time: 19:58 mh7 08/09 19:35 Order name: O2 Sat Monitoring; Complete Time: :58 mh7 08/09 19:35 Order name: Urine Dipstick-Ancillary (obtain specimen); Complete Time: 19:58 mh7 EC:01 Rate is 66 beats/min. Rhythm is regular. QRS Tilly is Normal. TN interval is normal. QRS mh7 interval is normal. QT interval is normal. No Q waves. T waves are Normal. No ST changes noted. Clinical impression: Normal ECG. Administered Medications: 20:25 Drug: morphine 4 mg {Note: rass - .} Route: IVP; Site: right antecubital; ca1 21:16 Follow up: Response: No adverse reaction; Pain is decreased; RASS: Alert and Calm (0) ca1 20:25 Drug: Zofran (Ondansetron) 4 mg Route: IVP; Site: right antecubital; ca1 21:16 Follow up: Response: No adverse reaction; Nausea is decreased ca1 22:03 Drug: Benadryl 25 mg Route: IVP; Site: right antecubital; ca1 23:29 Follow up: Response: No adverse reaction rv 23:53 Drug: KeFLEX 500 mg Route: PO; ea 08/10 00:18 Follow up: Response: No adverse reaction rv 00:18 Drug: TORadol 30 mg Route: IM; Site: right deltoid; rv 00:19 Follow up: Response: Medication administered at discharge. rv Disposition: 08/10/19 23:54 Discharged to Home. Impression: Unspecified abdominal pain, Generalized muscle pain, Dyspnea, Urinary tract infection, site not specified. - Condition is Stable. - Discharge Instructions: Abdominal Pain, Adult, Pain Without a Known Cause, Urinary Tract Infection, Adult, Shortness of Breath, [id number]. - Prescriptions for Keflex 500 mg Oral Capsule - take 1 capsule by ORAL route every 12 hours for 7 days; 14 capsule. - Medication Reconciliation Form, Thank You Letter, Antibiotic Education, Prescription Opioid Use form. - Follow up: Private Physician; When: 1 - 2 days; Reason: Worsening of condition, Re-evaluation by your physician. - Problem is an ongoing problem. - Symptoms have improved. Signatures: Dispatcher [employer] EDMS Dany Durand, RN RN Tracy Urias, RN RN Lupillo Mix, RN Shyla Gonzalez RN RN ca1 Holmes, Maurice, MD MD [facility] Corrections: (The following items were deleted from the chart) 08/09 20:15 20:09 The patient has shortness of breath while working, that occurred at work, [place] [id number] 20:15 20:09 Onset: The symptoms/episode began/occurred yesterday, [place] [id number] 08/10 00:20 08/09 23:54 08/10/2019 23:54 Discharged to Home. Impression: Unspecified abdominal rv pain; Generalized muscle pain; Dyspnea; Urinary tract infection, site not specified. Condition is Stable. Forms are Medication Reconciliation Form, Thank You Letter, Antibiotic Education, Prescription Opioid Use. Follow up: Private Physician; When: 1 - 2 days; Reason: Worsening of condition, Re-evaluation by your physician. Problem is an ongoing problem. Symptoms have improved. [facility]
== END 2019-08-11 00:20 | disposition home or self-care (01) ==
LOC: ER 18:21
DX: R10.9 Unspecified abdominal pain (principal); M79.10 Myalgia, unspecified site; N39.0 Urinary tract infection, site not specified; Z91.041 Radiographic dye allergy status
CPT/HCPCS: 93005; 85025; 80048; 36415; 83735; 82550; 85610; 85379; 80076; 80307 ×8; 81003; 84484; 83880; 71275; 74177; 71045; 96375; 96372; 96374; 99284; Q9967; J1200; J2405

== ENCOUNTER 2019-11-07 11:32 | Emergency (ER) | payer BC, OTHER ==
--- OUTSIDE RECORDS SUMMARY | 2019-11-07 11:34 | XMS REPORT | Clinical Summary ---
:1960 Author Organization [facility] Address [address] [place] [address] Care Team Providers Name Role Phone Pcp Primary Care Provider Unavailable Allergies Active Allergy Reactions Severity Noted Date Comments Iodinated Contrast Media Hives High 03/13/2017 Iodine And Iodide Containing Rash High 07/22/2015 Other reaction(s): Itching Products and swelling Medications Medication Sig Dispensed Refills Start Date End Date Status insulin glargine Inject 12 Units 0 Active (LANTUS) 100 subcutaneously nightly unit/mL injection Use as directed . insulin aspart Inject subcutaneously 0 Active U-100 (NOVOLOG) 3 (three) times daily 100 unit/mL before meals. injection 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 Diabetes mellitus 03/15/2017 Family History Medical History Relation Name Comments [...] travel history available. Last Filed Vital Signs Not on file Plan of Treatment Not on file Results Not on fileafter 11/06/2018 Insurance Payer Benefit Plan / Subscriber ID Type Phone Address Group BLUE CROSS/BLUE BCBS OS xxxxxxxxxxxx PPO [phone] PO NIRAV X [id number] SHIELD POS/PPO/[place] [address] MEDICAID - [facility] xxxxxxxxx Medicaid MEDICAID MGD STAR PLAN Contracted CARE Advance Directives For more information, please contact:[place] [address] [address] [place]ández[place], [place] [phone] Code Status Date Activated Date Inactivated Comments Full Code 10/15/2018 4:27 PM 10/18/2018 2:04 AM This code status was determined by: Patient
--- OUTSIDE RECORDS SUMMARY | 2019-11-07 11:35 | XMS REPORT | Summary of Care ---
:1960 Author Organization [facility] Address [address] [place] [address] Care Team Providers Name Role Phone Christiano Núñez Primary Care Provider Reason for Visit Reason Comments Assessment Hurting and needs meds Encounter Details Date Type Department Care Team Description 08/15/2019 Telephone [facility] Internal Jan Mosher, Assessment (Hurting and Medicine DO needs meds ) Rheumatology-[facility] on [address] [facility] Primary Care [address] , [place], [place] [address] [place] [address] [phone] [address] [phone] Allergies Active Allergy Reactions Severity Noted Date Comments Iodine And Iodide Containing Products Rash 01/2016 documented as of this encounter (statuses as of 08/15/2019) Medications Medication Sig Dispensed Refills Start Date [...] 02/27/2019 Active XR) 11 mg mouth daily. [id number]: Rheumatoid arthritis, seropositive, Therapeutic drug monitoring TRAMADOL 50 mg TAKE 1 TABLET BY 120 tablet 0 05/13/2019 Active tabletIndications: MOUTH UP TO FOUR Rheumatoid arthritis, TIMES DAILY seropositive NEEDED FOR PAIN documented as of this encounter (statuses as of 08/15/2019) Active Problems Problem Noted Date Proliferative diabetic retinopathy of both eyes with m acular edema 01/21/2019 associated with type 2 diabetes mellitus Overview: Added automatically from request for akshat henning [id number] NSVT (nonsustained ventricular tachycardia) 05/19/2017 Total knee [...] of hand 11/07/2012 Overview: ICD10 Diagnosis Term Belt And Link Shop Supervisor Utility Diabetic peripheral neuropathy 11/06/2012 Diabetes mellitus type 2, uncontrolled, without compli cations 01/13/2012 Overview: ICD10 Diagnosis Term Belt And Link Shop Supervisor Utility Obesity 01/13/2012 Overview: ICD10 Diagnosis Term Belt And Link Shop Supervisor Utility HLD (hyperlipidemia) 01/13/2012 Overview: ICD10 Diagnosis Term Belt And Link Shop Supervisor Utility Elevated BP 01/13/2012 Mild vitamin D deficiency 01/13/2012 Steroid long-term use 01/13/2012 Encounter for long-term (current) use of other medicat ions 07/19/2011 Raynaud's syndrome 07/28/2009 Rheumatoid arthritis 07/28/2009 Overview: ICD10 Diagnosis Term Belt And Link Shop Supervisor Utility Encounter for long-term (current) use of steroids 07/11 Chronic pain syndrome 07/28/2009 documented as of this encounter (statuses as of 08/15/2019) Social History Tobacco Use Types Packs/Day Years [...] 08/20/2019 Office Visit Rheumatology Jan Mosher, DO [address] [place], [place] [address] Health Maintenance Due Date Last Done Comments PNEUMOCOCCAL 0-64 YEARS COMBINED 1968 SERIES (1 of 1 - PPSV23) URINE MICROALBUMIN 1972 DTaP,Tdap,and Td Vaccines (1 - 1973 Tdap) FOOT EXAM 1980 COLONOSCOPY 2012 Zoster Recombinant Vaccine 2012 (SHINGRIX) (1 of 2) HgA1C 11/16/2017 05/16/2017, 01/13/2012 Breast Cancer Screening 02/01/2018 02/01/2017 (MAMMOGRAM) INFLUENZA VACCINE (Season Ended) 2019 PAP SMEAR 01/27/2020 01/26/2017 EYE EXAM 02/28/2020 02/27/2019, 02/19/2019, 02/05/2019, Additional history exists CREATININE (SERUM) 05/20/2020 05/21/2019, 02/28/2019, 02/27/2019, Additional history exists Depression Screening 05/20/2020 05/21/2019 LDL-C 05/20/2020 05/21/2019, 02/27/2019, 01/15/2019, Additional history exists HEPATITIS C (HCV) SCREEN Completed 02/27/2019, 12/27/2018, 12/27/2016, Additional history exists documented as of this encounter Implants Implanted Type Area Assistant Sales Manager Device Shelf Model / Identifier Expiration Date Ser ial / Lot Pal[employer]os [employer] CEMENT Right: Biomet 03/3 03/2020 [id number] / Implanted: Qty: 1 on 05/15/2017 by Rex Argueta MD at [facility] Knee 8 [id number] / [id number] Ps Open Box Femoral-Right KNEE Right: Biomet 04/2026 [id number] / Implanted: Qty: 1 on 05/15/2017 by Rex Argueta MD at [facility] Knee J [id number] / [id number] Adc Plate Tibial Cruciate 67 Mm - [id number] PLATE Right: Biomet 01/16/2027 [id number] / Implanted: Qty: 1 on 05/15/2017 by Rex Argueta MD at [facility] Knee J [id number] / [id number] Adc Patella 31 X 8 Mm - [id number] Right: Biomet 12/31/2021 [id number] / Implanted: Qty: 1 on 05/15/2017 by Rex Argueta MD at [facility] Knee [id number] / [id number] Bearing Tib 10 X 63/67 Mm #[id number] - [id number] Right: Biomet 01/24/2022 [id number] / Implanted: Qty: 1 on 05/15/2017 by Rex Argueta MD at [facility] Knee [id number] / [id number] documented as of this encounter Results Not on filedocumented in this encounter Insurance Payer Benefit Plan Subscriber ID Effective Phone Address Typ e / Group Dates [facility] BCBS OF [id number] 2012-Pres [phone] P [address] PPO/POS [place] - OUT ent [id number] [place] [address] [facility] xxxxxxxxx 2018-Aurelio Medic aid HEALTHCARE COMM STAR PLUS nt PLAN - MANAGED MEDICAID documented as of this encounter
--- OUTSIDE RECORDS SUMMARY | 2019-11-07 11:35 | XMS REPORT | Continuity of Care Document ---
:1960 Author Organization [facility] t Address [address] [place] [address] Care Team Providers Name Role Phone Pcp Primary Care Physician Unavailable Ness Mosher DO Attending Clinician Reggie ZELAYA Attending Clinician Unavailable Reggie ZELAYA Admitting Clinician Unavailable Problems Condition Condition Condition Status Onset Resolution Last Treating Co mments Source Name Details Category Date Date Treatment Clinician Date Gastric Gastric Disease Active [facility] band band [facility]-07 [facility] slippage slippage 00:[facility]: Medica l 00 Center Diabetes Diabetes Disease [facility] - [facility] Medical 00 Center Allergies, Adverse Reactions, Alerts Allergy Allergy Status Severity Reaction(s) Onset Inactive Treating Comm ents Source Name Type Date Date Clinician Iodinate Propensi Active Hives [facility] to 1-01 [facility] - Contrast adverse 00:00: Medical Media reaction 00 Center s Iodine Propensi Active Rash Other [facility] And ty to 5-11 reaction( [facility] - Iodide adverse 00:00: s): Medical Containi reaction 00 Itching Cente r ng s and Products swelling Family History Family Member Diagnosis Comments Start Date Stop Date Source Natural father Heart disease [facility] Natural mother Cancer [facility] Social History Social Habit Start Date Stop Date Quantity Comments Source History SDOH Alcohol [facility] Std Drinks [facility] History SDOH Alcohol [facility] Binge [facility] Sex Assigned At [facility] History SDOH Alcohol 2018-10-15 2018-10-[address] [facility] - Frequency 00:00:00 00:00:00 Medical Center Smoking Status Start Date Stop Date Source Never smoker [facility] edical [place] Medications Ordered Filled Start Stop Current Ordering Indication Dosage Frequency Signature Comments Components Source Medication Medication Date Date Medication? Clinician (SIG) Name Name insulin Yes 12U QD Inject 12 [facility] glargine 8-05 Units [facility] - (LANTUS) 16:35: subcutaneo Med ical 100 unit/mL 55 usly Center injection nightly Use as directed . insulin Yes Inject [facility] aspart 8-05 subcutaneo [facility] - U-100 16:35: usly 3 Medical (NOVOLOG) 55 (three) Center 100 unit/mL times injection daily before meals. Procedures This patient has no known procedures. Encounters Start End Encounter Admission Attending Care Care Encounter Source Date/Time Date/Time Type Type Clinicians Facility Department ID 2019-09-23 2019-09-23 Refill [facility] [id number] 00:00:00 00:00:00 Jan Arzola MULTISPEC [id number] IALTY [id number] CENTER [id number] [facility] 2019-08-15 2019-08-15 Telephone [facility] [id number] 00:00:00 00:00:00 Jan Arzola PRIMARY [id number] CARE [id number] PAVILLION [id number] Results Test Description Test Time Test Comments Results Result Comments Source POCT-GLUCOSE METER 2018-10-17 21:54:00 Test Item Value Reference Range Interpretation Comme nts POC-GLUCOSE METER (HIRAL) (test 194 mg/dL 70-110 H TESTED AT [facility] [facility] 7703 0 POCT-GLUCOSE [id number] 16:50:00 Test Item Value Reference Range Interpretation Comments POC-GLUCOSE METER 134 mg/dL 70-110 H TESTED AT [place] [address] ([facility]) (test code = [place] 1538) [address] POCT-GLUCOSE [id number] 12:10:00 Test Item Value Reference Range Interpretation Comments POC-GLUCOSE METER 155 mg/dL 70-110 H TESTED AT [place] [address] ([facility]) (test code = JENIFER [place] 1538) [address] POCT-GLUCOSE [id number] 05:34:00 Test Item Value Reference Range Interpretation Comments POC-GLUCOSE METER 249 mg/dL 70-110 H TESTED AT [place] [address] ([facility]) (test code = J[place]IFER Lem[place] 1538) [address] POCT-GLUCOSE [id number] 00:09:00 Test Item Value Reference Range Interpretation Comments POC-GLUCOSE METER 236 mg/dL 70-110 H TESTED AT [place] [address] ([facility]) (test code = JENIFER Lemons [facility] 1538) [address] POCT-GLUCOSE [id number] 21:17:00 Test Item Value Reference Range Interpretation Comments POC-GLUCOSE METER 153 mg/dL 70-110 H TESTED AT [place] [address] ([facility]) (test code = JENIFER Lemons [facility] 1538) [id number] POCT-GLUCOSE [id number] 18:23:00 Test Item Value Reference Range Interpretation Comments POC-GLUCOSE METER 148 mg/dL 70-110 H TESTED AT [place] [address] ([facility]) (test code = JENIFER Lemons [facility] 1538) [address] [place], UGI, WITHOUT [id number] 17:33:00Reason for exam:->Please evaluate with thin barium [...] the stomach. Esophageal peristalsis was normal. Signed: Hudson Penn MDReport Verified Date/Time: 10/16/2018 17:33:25 Reading Location: [facility] B1 C013X Ortho Consult Reading Room -GLUCOSE [id number] 05:59:00 Test Item Value Reference Range Interpretation Comments POC-GLUCOSE METER 192 mg/dL 70-110 H TESTED AT [place] [address] ([facility]) (test code = JENIFER Lemons [facility] 1538) [address] POCT-GLUCOSE [id number] 00:39:00 Test Item Value Reference Range Interpretation Comments POC-GLUCOSE METER 172 mg/dL 70-110 H TESTED AT [place] [address] ([facility]) (test code = JENIFER Lemons [facility] 1538) [address] POCT-GLUCOSE [id number] 22:13:00 Test Item Value Reference Range Interpretation Comments POC-GLUCOSE METER 187 mg/dL 70-110 H TESTED AT [place] [address] ([facility]) (test code = JENIFER Lemons [facility] 1538) [address] RAD, CHEST, 1 VIEW, NON [id number] 18:59:00Reason for exam:->preopShould this be performed at [...] congestion. No acute bonyabnormality. Signed: Chan Olson MDReport Verified Date/Time: 10/15/2018 18:59:09 Reading Location: [facility] B1 C013W Consult Reading Room [facility] MET[facility]OL[facility] [id number] 18:46:00 Test Item Value Reference Range Interpretation [...] NOT APPLICABLE FOR DIALYSIS PATIEN TS. HEMOGLOBIN [id number] 18:36:00 Test Item Value Reference Range Interpretation Comments HEMOGLOBIN A1C (BEAKER) (test code = 9.7 % 4.3-6.1 H 368) POCT-GLUCOSE [id number] 18:14:00 Test Item Value Reference Range Interpretation Comments POC-GLUCOSE METER 207 mg/dL 70-110 H TESTED AT [facility] 6720 (BEAKER) (test code = JENIFER Lem[place] 1538) [address] CBC W/PLT COUNT & AUTO [id number] 18:13:00 Test Item Value Reference Range Interpretation [...] % 0-1 PERCENT (BEAKER) (test code = 7275)
--- OUTSIDE RECORDS SUMMARY | 2019-11-07 11:35 | XMS REPORT | Summary of Care ---
:1960 Author Organization [facility] Address [address] [place] [address] Care Team Providers Name Role Phone Christiano Núñez Primary Care Provider Reason for Visit Reason Comments Assessment Hurting and needs meds Encounter Details Date Type Department Care Team Description 08/15/2019 Telephone [facility] Internal Jan Mosher, Assessment (Hurting and Medicine DO needs meds ) Rheumatology-[facility] on [address] [facility] Primary Care [address] , [place], [place] [address] [place] [address] [phone] [address] [phone] Allergies Active Allergy Reactions Severity Noted Date Comments Iodine And Iodide Containing Products Rash 01/2016 documented as of this encounter (statuses as of 08/16/2019) Medications Medication Sig Dispensed Refills Start Date [...] 02/27/2019 Active XR) 11 mg mouth daily. [id number]: Rheumatoid arthritis, seropositive, Therapeutic drug monitoring TRAMADOL 50 mg TAKE 1 TABLET BY 120 tablet 0 05/13/2019 Active tabletIndications: MOUTH UP TO FOUR Rheumatoid arthritis, TIMES DAILY seropositive NEEDED FOR PAIN documented as of this encounter (statuses as of 08/16/2019) Active Problems Problem Noted Date Proliferative diabetic retinopathy of both eyes with m acular edema 01/21/2019 associated with type 2 diabetes mellitus Overview: Added automatically from request for akshat henning [id number] NSVT (nonsustained ventricular tachycardia) 05/19/2017 Total knee [...] of hand 11/07/2012 Overview: ICD10 Diagnosis Term Dance Artist Utility Diabetic peripheral neuropathy 11/06/2012 Diabetes mellitus type 2, uncontrolled, without compli cations 01/13/2012 Overview: ICD10 Diagnosis Term Dance Artist Utility Obesity 01/13/2012 Overview: ICD10 Diagnosis Term Dance Artist Utility HLD (hyperlipidemia) 01/13/2012 Overview: ICD10 Diagnosis Term Dance Artist Utility Elevated BP 01/13/2012 Mild vitamin D deficiency 01/13/2012 Steroid long-term use 01/13/2012 Encounter for long-term (current) use of other medicat ions 07/19/2011 Raynaud's syndrome 07/28/2009 Rheumatoid arthritis 07/28/2009 Overview: ICD10 Diagnosis Term Dance Artist Utility Encounter for long-term (current) use of steroids 07/11 Chronic pain syndrome 07/28/2009 documented as of this encounter (statuses as of 08/16/2019) Social History Tobacco Use Types Packs/Day Years [...] 08/20/2019 Office Visit Rheumatology Jan Mosher, DO [address] [place], [place] [address] Health Maintenance Due Date Last Done Comments [...] of this encounter Implants Implanted Type Area Product Development Device Shelf Model / Identifier Expiration Date Ser ial / Lot [employer] Bone [employer] CEMENT Right: Biomet 03/3 03/2020 [id number] / Implanted: Qty: 1 on 05/15/2017 by Rex Argueta MD at [facility] Knee 8 [id number] / [id number] Ps Open Box Femoral-Right KNEE Right: Biomet 04/2026 [id number] / Implanted: Qty: 1 on 05/15/2017 by Rex Argueta MD at [facility] Knee J [id number] / [id number] Adc Plate Tibial Cruciate 67 Mm - [id number] PLATE Right: Biomet 01/16/2027 [id number] / Implanted: Qty: 1 on 05/15/2017 by Rex Argueta MD at [facility] Knee J [id number] / [id number] Adc Patella 31 X 8 Mm - [id number] Right: Biomet 12/31/2021 [id number] / Implanted: Qty: 1 on 05/15/2017 by Rex Argueta MD at [facility] Knee 6 [id number] / [id number] Bearing Tib 10 X 63/67 Mm #[id number] - [id number] Right: Biomet 01/24/2022 [id number] / Implanted: Qty: 1 on 05/15/2017 by Rex Argueta MD at [facility] Knee 7 [id number] / [id number] documented as of this encounter Results Not on filedocumented in this encounter Insurance Payer Benefit Plan Subscriber ID Effective Phone Address Typ e / Group Dates [facility] BCBS OF [id number] 2012-Pres [phone] [address] PPO/POS [place] - OUT ent [id number] [place] [address] [facility] xxxxxxxxx 2018-Aurelio Medic aid HEALTHCARE COMM STAR PLUS nt PLAN - MANAGED MEDICAID documented as of this encounter
--- OUTSIDE RECORDS SUMMARY | 2019-11-07 11:36 | XMS REPORT | Summary of Care ---
:1960 Author Organization [facility] Address [address] [place] [address] Care Team Providers Name Role Phone Christiano Núñez Primary Care Provider Reason for Visit Reason Comments Assessment Hurting and needs meds Encounter Details Date Type Department Care Team Description 08/15/2019 Telephone [facility] Internal Jan Mosher, Assessment (Hurting and Medicine DO needs meds ) Rheumatology-[facility] on [address] [facility] Primary Care [address] , [place], [place] [address] [place] [address] [phone] [address] [phone] Allergies Active Allergy Reactions Severity Noted Date [...] 02/27/2019 Active XR) 11 mg mouth daily. [id number]: Rheumatoid arthritis, seropositive, Therapeutic drug monitoring TRAMADOL [...] Added automatically from request for akshat henning [id number] NSVT (nonsustained ventricular tachycardia) 05/19/2017 Total knee [...] of hand 11/07/2012 Overview: ICD10 Diagnosis Term Production Service Manager Utility Diabetic peripheral neuropathy 11/06/2012 Diabetes mellitus type 2, uncontrolled, without compli cations 01/13/2012 Overview: ICD10 Diagnosis Term Production Service Manager Utility Obesity 01/13/2012 Overview: ICD10 Diagnosis Term Production Service Manager Utility HLD (hyperlipidemia) 01/13/2012 Overview: ICD10 Diagnosis Term Production Service Manager Utility Elevated BP 01/13/2012 Mild vitamin D deficiency 01/13/2012 Steroid long-term use 01/13/2012 Encounter for long-term (current) use of other medicat ions 07/19/2011 Raynaud's syndrome 07/28/2009 Rheumatoid arthritis 07/28/2009 Overview: ICD10 Diagnosis Term Production Service Manager Utility Encounter for long-term (current) use of [...] 08/20/2019 Office Visit Rheumatology Jan Mosher, DO [address] [place], [place] [address] Health Maintenance Due Date Last Done Comments [...] of this encounter Implants Implanted Type Area Sourcer Device Shelf Model / Identifier Expiration Date Ser ial / Lot Pal[employer] R [employer] Bone Cement CEMENT Right: Biomet 03/3 03/2020 [id number] / Implanted: Qty: 1 on 05/15/2017 by Rex Argueta MD at [facility] Knee 8 [id number] / [id number] Ps Open Box Femoral-Right KNEE Right: Biomet 04/2026 [id number] / Implanted: Qty: 1 on 05/15/2017 by Rex Argueta MD at [facility] Knee J [id number] / [id number] Adc Plate Tibial Cruciate 67 Mm - [id number] PLATE Right: Biomet 01/16/2027 [id number] / Implanted: Qty: 1 on 05/15/2017 by Rex Argueta MD at [facility] Knee J [id number] / [id number] Adc Patella 31 X 8 Mm - [id number] Right: Biomet 12/31/2021 [id number] / Implanted: Qty: 1 on 05/15/2017 by Rex Argueta MD at [facility] Knee [id number] / [id number] Bearing Tib 10 X 63/67 Mm #[id number] - [id number] Right: Biomet 01/24/2022 [id number] / Implanted: Qty: 1 on 05/15/2017 by Rex Argueta MD at [facility] Knee [id number] / [id number] documented as of this encounter Results Not on filedocumented in this encounter Insurance Payer Benefit Plan Subscriber ID Effective Phone Address Typ e / Group Dates [facility] BCBS OF [id number] 2012-Pres [phone] [address] PPO/POS [place] - OUT ent [id number] [place] [address] [facility] xxxxxxxxx 2018-Aurelio Medic aid HEALTHCARE COMM STAR PLUS nt PLAN - MANAGED MEDICAID documented as of this encounter
--- OUTSIDE RECORDS SUMMARY | 2019-11-07 11:36 | XMS REPORT | Summary of Care ---
:1960 Author Organization [facility] - [facility] Address [address] [place] [id number] Care Team Providers Name Role Phone Christiano Núñez Primary Care Provider Reason for Visit Reason Comments Refill Request Xeljanz Encounter Details Date Type Department Care Team Description 09/23/2019 Refill [facility] Health Jan Mosher, Refill R equest [facility] (Xeljanz) [facility] [address] [facility] [address] [place] [address] South, S[place]TH [place]tr[place], [place] [phone] Allergies Active Allergy Reactions Severity Noted Date Comments Iodine And Iodide Containing Products Rash 01/2016 documented as of this encounter (statuses as of 10/08/2019) Medications Medication Sig Dispensed Refills Start Date [...] 02/27/2019 Active XR) 11 mg mouth daily. [id number]: Rheumatoid arthritis, seropositive, Therapeutic drug monitoring TRAMADOL 50 mg TAKE 1 TABLET BY 120 tablet 0 05/13/2019 Active tabletIndications: MOUTH UP TO FOUR Rheumatoid arthritis, TIMES DAILY seropositive NEEDED FOR PAIN documented as of this encounter (statuses as of 10/08/2019) Active Problems Problem Noted Date Proliferative diabetic retinopathy of both eyes with m acular edema 01/21/2019 associated with type 2 diabetes mellitus Overview: Added automatically from request for akshat henning [id number] NSVT (nonsustained ventricular tachycardia) 05/19/2017 Total knee [...] of hand 11/07/2012 Overview: ICD10 Diagnosis Term Information Technology Specialist Utility Diabetic peripheral neuropathy 11/06/2012 Diabetes mellitus type 2, uncontrolled, without compli cations 01/13/2012 Overview: ICD10 Diagnosis Term Information Technology Specialist Utility Obesity 01/13/2012 Overview: ICD10 Diagnosis Term Information Technology Specialist Utility HLD (hyperlipidemia) 01/13/2012 Overview: ICD10 Diagnosis Term Information Technology Specialist Utility Elevated BP 01/13/2012 Mild vitamin D deficiency 01/13/2012 Steroid long-term use 01/13/2012 Encounter for long-term (current) use of other medicat ions 07/19/2011 Raynaud's syndrome 07/28/2009 Rheumatoid arthritis 07/28/2009 Overview: ICD10 Diagnosis Term Information Technology Specialist Utility Encounter for long-term (current) use of steroids 07/11 Chronic pain syndrome 07/28/2009 documented as of this encounter (statuses as of 10/08/2019) Social History Tobacco Use Types Packs/Day Years [...] filedocumented in this encounter Plan of Treatment Health Maintenance Due Date Last Done Comments PNEUMOCOCCAL 0-64 YEARS COMBINED 1968 SERIES (1 of 1 - PPSV23) URINE MICROALBUMIN 1972 DTaP,Tdap,and Td Vaccines (1 - 1973 Tdap) FOOT EXAM 1980 COLONOSCOPY 2012 Zoster Recombinant Vaccine 2012 (SHINGRIX) (1 of 2) HgA1C 11/16/2017 05/16/2017, 01/13/2012 Breast Cancer Screening 02/01/2018 02/01/2017 (MAMMOGRAM) INFLUENZA VACCINE (#1) 2019 PAP SMEAR 01/27/2020 01/26/2017 EYE EXAM 02/28/2020 02/27/2019, 02/19/2019, 02/05/2019, Additional history exists CREATININE (SERUM) 05/20/2020 05/21/2019, 02/28/2019, 02/27/2019, Additional history exists Depression Screening 05/20/2020 05/21/2019 LDL-C 05/20/2020 05/21/2019, 02/27/2019, 01/15/2019, Additional history exists HEPATITIS C (HCV) SCREEN Completed 02/27/2019, 12/27/2018, 12/27/2016, Additional history exists documented as of this encounter Implants Implanted Type Area Website Programmer Device Shelf Model / Identifier Expiration Date Ser ial / Lot [employer] Bone Cement CEMENT Right: Biomet 05/13 [id number] / Implanted: Qty: 1 on 05/15/2017 by Rex Argueta MD at [facility] Knee 8 [id number] / [id number] Ps Open Box Femoral-Right KNEE Right: Biomet 04/2026 [id number] / Implanted: Qty: 1 on 05/15/2017 by Rex Argueta MD at [facility] Knee [id number] / [id number] Adc Plate Tibial Cruciate 67 Mm - [id number] PLATE Right: Biomet 01/16/2027 [id number] / Implanted: Qty: 1 on 05/15/2017 by Rex Argueta MD at [facility] Knee [id number] / [id number] Adc Patella 31 X 8 Mm - [id number] Right: Biomet 12/31/2021 [id number] / Implanted: Qty: 1 on 05/15/2017 by Rex Argueta MD at [facility] Knee [id number] / [id number] Bearing Tib 10 X 63/67 Mm #[id number] - [id number] Right: Biomet 01/24/2022 [id number] / Implanted: Qty: 1 on 05/15/2017 by Rex Argueta MD at [facility] Knee [id number] / [id number] documented as of this encounter Results Not on filedocumented in this encounter Visit Diagnoses Diagnosis Rheumatoid arthritis, seropositive Rheumatoid arthritis Therapeutic drug monitoring Encounter for therapeutic drug monitorin g documented in this encounter Insurance Payer Benefit Plan Subscriber ID Effective Phone Address Typ e / Group Dates [facility] OF [id number] 2012-Pres [phone] [address] PPO/POS [place] - OUT ent [id number] [place] [address] [facility] xxxxxxxxx 2018-Prestyrone Medic aid HEALTHCARE COMM STAR PLUS nt PLAN - MANAGED MEDICAID documented as of this encounter
--- NOTE | 2019-11-07 12:21 | RAD REPORT ---
EXAM DESCRIPTION: Ivis Single View11/07/2019 12:16 pm CLINICAL HISTORY: Chest pain COMPARISON: July 2019 FINDINGS: The lungs appear clear of acute infiltrate. The heart is normal size IMPRESSION: No acute abnormalities displayed
[2019-11-07] MEDS ORDERED: ONDANSETRON 4 MG/2 ML VIAL ONE (12:22)
[2019-11-07] MEDS ORDERED: GLUCAGON 1 MG/VIAL ONE (12:22)
[2019-11-07 12:25] LABS: Hematocrit 37.1 % (36.0-45.0); Lymphocytes % 27.1 % (15.3-44.8); MPV 8.1 fL (7.6-11.3); Protime INR 0.99; RBC Red Blood Cell Count 4.43 M/uL (3.86-4.86)
[2019-11-07 13:11] LABS: ALT/SGPT 25 U/L (12-78); AST/SGOT 20 U/L (15-37); Albumin 3.2 g/dL (3.4-5.0); Alkaline Phosphatase 123 U/L (45-117); BUN Blood Urea Nitrogen 16 mg/dL (7-18); Bicarbonate 26 mmol/L (21-32); Bilirubin Direct < 0.1 mg/dL (0-0.2); Bilirubin Total 0.3 mg/dL (0.2-1.0); Glucose Level 265 mg/dL (74-106); Magnesium 1.6 mg/dL (1.8-2.4); NT PRO-BNP 351 pg/mL (<125); Potassium 3.8 mmol/L (3.5-5.1); Protein, Total 7.3 g/dL (6.4-8.2); Sodium Level 138 mmol/L (136-145); Troponin (Emerg Dept Use Only) < 0.02 ng/mL (0.0-0.045)
[2019-11-07] MEDS ORDERED: Magnesium Sulfate 2gm IVPB 2 G/50 ML BAG IV ONE (13:52)
--- NOTE | 2019-11-07 14:37 | ER ---
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 Coronavirus screen: At this bp time, the client does not indicate any symptoms associated with coronavirus-19. Ebola Screen: No symptoms or risks identified at this time. 11:44 Method Of Arrival: Wheelchair bp 11:50 Initial Sepsis Screen: Does the patient meet any 2 criteria? HR > 90 bpm. Does the bp patient have a suspected source of infection? No. Patient's initial sepsis screen is negative. Risk Assessment: Do you want to hurt yourself or someone else? Patient reports no desire to harm self or others. Onset of symptoms is unknown. 11:50 Acuity: HODAN 3 bp Triage Assessment: 11:57 General: Appears distressed, uncomfortable, obese, Behavior is cooperative, appropriate bp for age, agitated, anxious. Pain: Denies pain. EENT: Reports FOOD BOLUS. Neuro: No deficits noted. Cardiovascular: Rhythm is sinus rhythm. Respiratory: Breath sounds are coarse bilaterally. GI: No signs and/or symptoms were reported involving the gastrointestinal system. : No signs and/or symptoms were reported regarding the genitourinary system. Derm: No deficits noted. Musculoskeletal: No deficits noted. Historical: - Allergies: 11:55 Iodinated Contrast Media - IV Dye; bp - Home Meds: 11:55 Lantus 100 unit/mL Sub-Q soln [Active]; Novolog Sub-Q [Active]; Xeljanz oral oral bp [Active]; - PMHx: 11:55 Diabetes - IDDM; Hypertension resolved after lap band; Rheumatoid Arthritis; bp - Immunization history:: Adult Immunizations unknown. - Social history:: Smoking status: Patient reports the use of cigarette tobacco products, unknown amount. Screenin:04 Abuse screen: Denies threats or abuse. Denies injuries from another. Nutritional bp screening: No deficits noted. Tuberculosis screening: No symptoms or risk factors identified. Fall Risk None identified. Assessment: 12:00 General: SEE TRIAGE NOTE. bp 13:02 Reassessment: PT RESTING QUIETLY, NO ACUTE S/S AT THIS TIME. bp 14:17 Reassessment: ALL CURRENT ORDERS COMPLETE, VS STABLE. bp 15:32 Reassessment: PT D/C AMBULATORY, DX WITH FOREIGN BODY IN ESOPHAGUS. bp Vital Signs: 11:50 BP 176 / 117; Pulse 93; Resp 17; Temp 98; Pulse Ox 99% ; bp 12:02 BP 162 / 76; Pulse 86; Resp 16; Pulse Ox 98% ; bp 13:02 BP 137 / 44; Pulse 72; Resp 15; Pulse Ox 95% ; bp 14:17 BP 144 / 62; Pulse 62; Resp 17; Pulse Ox 99% ; bp 15:32 BP 150 / 67; Pulse 67; Resp 17; Temp 98; Pulse Ox 97% ; bp ED Course: 11:32 Patient arrived in ED. ds1 11:38 Gaurav Delgado PA is PHCP. jr8 11:38 Prince Lopez MD is Attending Physician. jr8 11:42 Felton Ortiz, MAY is Primary Nurse. bp 11:51 Triage completed. bp 11:57 Arm band placed on. bp 12:04 Patient has correct armband on for positive identification. Bed in low position. Call bp light in reach. Side rails up X2. mechanical pencils assembler on. Pulse ox on. NIBP on. 12:10 Initial lab(s) drawn, by me. Inserted saline lock: 22 gauge in right antecubital area, kj1 using aseptic technique. Blood collected. 12:10 EKG done, by ED staff, reviewed by Prince Lopez MD. kj1 12:16 XRAY Chest (1 view) In Process Unspecified. EDMS 14:36 Christiano Gregory MD is Referral Physician. jr8 15:32 No provider procedures requiring assistance completed. IV discontinued, intact, bp bleeding controlled, No redness/swelling at site. Pressure dressing applied. Patient maintains SpO2 saturation greater than 95% on room air. Administered Medications: 12:10 Drug: Glucagon 1 mg Route: IVP; Site: right antecubital; bp 15:37 Follow up: Response: No adverse reaction bp 12:10 Drug: Zofran (Ondansetron) 4 mg Route: IVP; Site: right antecubital; bp 15:36 Follow up: Response: No adverse reaction bp 13:49 Drug: Magnesium Sulfate 2 grams Route: IVPB; Infused Over: 2 hrs; Site: right forearm; jr10 15:35 Follow up: IV Status: Completed infusion; IV Intake: 50ml bp Intake: 15:35 IV: 50ml; Total: 50ml. bp Outcome: 14:36 Discharge ordered by MD. gayle 15:32 Discharged to home ambulatory. bp 15:32 Condition: stable 15:32 Discharge instructions given to Instructed on discharge instructions, follow up and referral plans. Demonstrated understanding of instructions, follow-up care. 15:38 Patient left the ED. bp Signatures: Dispatcher [employer] EDMN Makayla Zimmerman dsGaurav Ortega PA PA jr8 Felton Ortiz RN RN Beth Neil kj1 Anna Berger RN RN jr10
--- NOTE | 2019-11-07 14:37 | EDPHYS ---
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 12:30 Onset: The symptoms/episode began/occurred acutely, today. Associated signs and jr8 symptoms: Pertinent positives: chest pain, vomiting. Modifying factors: The patient symptoms are alleviated by nothing, the patient symptoms are aggravated by eating food. The patient has experienced similar episodes in the past, chronically. The patient has not recently seen a physician. Patient stated that she has food bolus obstructions often due to previous lap band procedure that now has been reversed. Stated that she continues to have troubles keeping food boluses down. Had hot dog today and now feels it is stuck and not going down . Historical: - Allergies: 11:55 Iodinated Contrast Media - IV Dye; bp - Home Meds: 11:55 Lantus 100 unit/mL Sub-Q soln [Active]; Novolog Sub-Q [Active]; Xeljanz oral oral bp [Active]; - PMHx: 11:55 Diabetes - IDDM; Hypertension resolved after lap band; Rheumatoid Arthritis; bp - Immunization history:: Adult Immunizations unknown. - Social history:: Smoking status: Patient reports the use of cigarette tobacco products, unknown amount. ROS: 12:30 Eyes: Negative for injury, pain, redness, and discharge, ENT: Negative for injury, jr8 pain, and discharge, Neck: Negative for injury, pain, and swelling, Cardiovascular: Negative for palpitations, and edema. Positive for chest pain Respiratory: Negative for shortness of breath, cough, wheezing, and pleuritic chest pain, Back: Negative for injury and pain, MS/Extremity: Negative for injury and deformity, Skin: Negative for injury, rash, and discoloration, Neuro: Negative for headache, weakness, numbness, tingling, and seizure. 12:30 Abdomen/GI: Positive for abdominal pain, nausea and vomiting, Negative for diarrhea. Exam: 12:30 Eyes: Pupils equal round and reactive to light, extra-ocular motions intact. Lids and jr8 lashes normal. Conjunctiva and sclera are non-icteric and not injected. Cornea within normal limits. Periorbital areas with no swelling, redness, or edema. ENT: Nares patent. No nasal discharge, no septal abnormalities noted. Tympanic membranes are normal and external auditory canals are clear. Oropharynx with no redness, swelling, or masses, exudates, or evidence of obstruction, uvula midline. Mucous membranes moist. Neck: Trachea midline, no thyromegaly or masses palpated, and no cervical lymphadenopathy. Supple, full range of motion without nuchal rigidity, or vertebral point tenderness. No Meningismus. Chest/axilla: Normal chest wall appearance and motion. Nontender with no deformity. No lesions are appreciated. Cardiovascular: Regular rate and rhythm with a normal S1 and S2. No gallops, murmurs, or rubs. Normal PMI, no JVD. No pulse deficits. Respiratory: Lungs have equal breath sounds bilaterally, clear to auscultation and percussion. No rales, rhonchi or wheezes noted. No increased work of breathing, no retractions or nasal flaring. Abdomen/GI: Soft, non-tender, with normal bowel sounds. No distension or tympany. No guarding or rebound. No evidence of tenderness throughout. Back: No spinal tenderness. No costovertebral tenderness. Full range of motion. Skin: Warm, dry with normal turgor. Normal color with no rashes, no lesions, and no evidence of cellulitis. MS/ Extremity: Pulses equal, no cyanosis. Neurovascular intact. Full, normal range of motion. Neuro: Awake and alert, GCS 15, oriented to person, place, time, and situation. Cranial nerves II-XII grossly intact. Motor strength 5/5 in all extremities. Sensory grossly intact. Cerebellar exam normal. Normal gait. Vital Signs: 11:50 BP 176 / 117; Pulse 93; Resp 17; Temp 98; Pulse Ox 99% ; bp 12:02 BP 162 / 76; Pulse 86; Resp 16; Pulse Ox 98% ; bp 13:02 BP 137 / 44; Pulse 72; Resp 15; Pulse Ox 95% ; bp 14:17 BP 144 / 62; Pulse 62; Resp 17; Pulse Ox 99% ; bp 15:32 BP 150 / 67; Pulse 67; Resp 17; Temp 98; Pulse Ox 97% ; bp MDM: 11:39 Patient medically screened. [facility] 14:35 Data reviewed: vital signs, nurses notes, lab test result(s), EKG, radiologic studies, 8 plain films. Data interpreted: Pulse oximetry: on room air is 99 %. Interpretation: normal. Counseling: I had a detailed discussion with the patient and/or guardian regarding: the historical points, exam findings, and any diagnostic results supporting the discharge/admit diagnosis, lab results, radiology results, the need for outpatient follow up, a point of care technician, to return to the emergency department if symptoms worsen or persist or if there are any questions or concerns that arise at home. Response to treatment: the patient's symptoms have resolved after treatment. 11/06 11:38 Order name: Basic Metabolic Panel; Complete Time: 13:11/06 11:38 Order name: CBC with Diff; Complete Time: 12:28 11/06 11:38 Order name: LFT's; Complete Time: 13:11/06 11:38 Order name: Magnesium; Complete Time: 13:11/06 11:38 Order name: NT PRO-BNP; Complete Time: 13:11/06 11:38 Order name: PT-INR; Complete Time: 12:28 11/06 11:38 Order name: Troponin (emerg Dept Use Only); Complete Time: 13:27 11/06 11:38 Order name: XRAY Chest (1 view); Complete Time: 12:28 11/06 11:38 Order name: EKG; Complete Time: 11:39 11/06 11:38 Order name: Cardiac monitoring; Complete Time: 12:16 11/06 11:51 Order name: Lipase; Complete Time: 12:38 11/06 11:38 Order name: EKG - Nurse/Tech; Complete Time: 11:56 11/06 11:38 Order name: IV Saline Lock; Complete Time: 12:16 11/06 11:38 Order name: Labs collected and sent; Complete Time: 12:16 11/06 11:38 Order name: O2 Per Protocol; Complete Time: 12:16 11/06 11:38 Order name: O2 Sat Monitoring; Complete Time: 12:16 jr8 Administered Medications: 12:10 Drug: Glucagon 1 mg Route: IVP; Site: right antecubital; bp 15:37 Follow up: Response: No adverse reaction bp 12:10 Drug: Zofran (Ondansetron) 4 mg Route: IVP; Site: right antecubital; bp 15:36 Follow up: Response: No adverse reaction bp 13:49 Drug: Magnesium Sulfate 2 grams Route: IVPB; Infused Over: 2 hrs; Site: right forearm; jr10 15:35 Follow up: IV Status: Completed infusion; IV Intake: 50ml bp Disposition: 18:37 Co-signature as Attending Physician, Prince Lopez MD. rn Disposition: 11/07/19 14:36 Discharged to Home. Impression: Foreign body in esophagus. - Condition is Stable. - Discharge Instructions: Foreign Body. - Medication Reconciliation Form, Thank You Letter, Antibiotic Education, Prescription Opioid Use form. - Follow up: Christiano Gregory MD; When: 2 - 3 days; Reason: Recheck today's complaints, Continuance of care, Re-evaluation by your physician. - Problem is new. - Symptoms have improved. Signatures: Dispatcher [employer] EDMS Prince Lopez MD MD rn Gaurav Delgado PA PA jr8 Felton Ortiz RN RN Anna Osborne RN RN jr10 Corrections: (The following items were deleted from the chart) 15:38 14:36 11/07/2019 14:36 Discharged to Home. Impression: Foreign body in esophagus. bp Condition is Stable. Forms are Medication Reconciliation Form, Thank You Letter, Antibiotic Education, Prescription Opioid Use. Follow up: Christiano Gregory; When: 2 - 3 days; Reason: Recheck today's complaints, Continuance of care, Re-evaluation by your physician. Problem is new. Symptoms have improved. jr8
--- NOTE | 2019-11-09 05:50 | EKG ---
Test Date: 2019-11-07 Test Time: 12:07:31 Paper Inserter: DOLORES MEASUREMENT RESULTS: Intervals: Rate: 79 RI: 148 QRSD: 88 QT: 396 QTc: 454 [place]: P: 60 RI: 148 QRS: 22 T: 46 INTERPRETIVE STATEMENTS: Normal sinus rhythm Normal ECG Compared to ECG 08/10/2019 20:17:22 No significant changes Electronically Signed On 11-09-19 05:45:41 CDT by Tarun Edward
[2019-11-12 01:02] VITALS: TEMP 98
[2019-11-12 01:07] VITALS: BP 150/67; O2SAT 97
== END 2019-11-07 15:38 | disposition home or self-care (01) ==
LOC: ER 11:32
DX: T18.128A Food in esophagus causing other injury, initial encounter (principal); E11.9 Type 2 diabetes mellitus without complications; Z79.4 Long term (current) use of insulin; Z91.041 Radiographic dye allergy status; F17.210 Nicotine dependence, cigarettes, uncomplicated
CPT/HCPCS: 96365; 93005; 85025; 80048; 36415; 83735; 85610; 80076; 84484; 83690; 83880; 71045; 96375; 99285; 96366; J1610; J3475; J2405

== ENCOUNTER 2020-02-25 07:53 | Inpatient (IN) | payer BC, OTHER ==
--- OUTSIDE RECORDS SUMMARY | 2020-02-25 07:55 | XMS REPORT | Continuity of Care Document ---
:1960 Author Organization [facility] Address [address] [place] [address] Care Team Providers Name Role Phone Pcp [...] Stop Date Source Natural father Heart disease [facility] Natural mother Cancer [facility] Social History Social Habit Start Date Stop Date Quantity Comments Source History SDOH [facility] Std Drinks Medica l Center History SDOH [facility] Alcohol Binge Medical Jean ter Sex Assigned At [facility] Tobacco use and 2018-10-15 2018-10-[address] [facility] - exposure 00:00:00 00:00:00 Medical Center Alcohol intake 2018-10-15 2018-10-[address] [facility] - 00:00:00 00:00:00 non-drinker of Medical nter alcohol (finding) History SDOH 2018-10-15 2018-10-[address] [facility] - Alcohol Frequency 00:00:00 00:00:00 [facility] Center Smoking Status Start Date Stop Date Source Never smoker [facility] Medications Ordered Filled Start Stop Current Ordering Indication Dosage Frequency Signature Comments Components Source Medication Medication Date Date Medication? Clinician (SIG) Name Name insulin Yes 12U QD Inject 12 [facility] glargine 8-08 [facility] - (LANTUS) 00:04: subcutaneo Med ical 100 unit/mL 52 usly Center injection nightly Use as directed . insulin Yes Inject [facility] aspart 8-08 subcutaneo [facility] - U-100 00:04: usly 3 Medical (NOVOLOG) 52 (three) Center 100 unit/mL times injection daily before meals. Procedures This patient has no known procedures. Plan of Care Planned Activity Planned Date Details Comments Source Future Scheduled 2019-11-12 INFLUENZA VACCINE (#1) [facility] Test 00:00:00 [code = INFLUENZA Medical Ce nter VACCINE (#1)] Future Scheduled 2019-01-[address] [facility] Test 00:00:00 measurement [facility] Center (procedure) [code = 36647919] Future Scheduled [address] [facility] Test 00:00:00 (procedure) [code = Medical Center 34878924] Future Scheduled [address] [facility] - Test 00:00:00 malignant neoplasm of [facility] cervix (procedure) [code = 944090560] Future Scheduled [address] DIABETIC EYE EXAM [facility] Test 00:00:00 [code = DIABETIC EYE Medical Center EXAM] Future Scheduled [address] [facility] - Test 00:00:00 examination Medical Center (regime/therapy) [code = 112450631] Future Scheduled 1972 Urine screening for [facility] - Test 00:00:00 protein (procedure) Medical Center [code = 667070623] Future Scheduled [address] [facility] - Test 00:00:00 0-64 YRS (1 of 1 - Medical C enter PPSV23) [code = PNEUMOCOCCAL VACCINE 0-64 YRS (1 of 1 - PPSV23)] Future Scheduled [address] [facility] - Test 00:00:00 [facility] breast (procedure) [code = 493110584] Future Scheduled [address] [facility] - Test 00:00:00 malignant neoplasm of [facility] colon (procedure) [code = 893076445] Encounters Start End Encounter Admission Attending Care Care Encounter Source Date/Time Date/Time Type Type Clinicians Facility Department ID 2019-09-23 2019-09-23 Refill [facility] [id number] 00:00:00 00:00:00 Jan Arzola MULTISPEC [id number] IALTY [id number] CENTER [id number] [facility] 2019-08-15 2019-08-15 Telephone [facility] [id number] 00:00:00 00:00:00 Jan Arzola PRIMARY [id number] CARE [id number] PAVILLION [id number] Results Test Description Test Time Test Comments Results Result Comments Source POCT-GLUCOSE METER 2018-10-17 21:54:00 Test Item Value Reference Range Interpretation Comme nts POC-GLUCOSE METER ([employer]) (test 194 mg/dL 70-110 H TESTED AT [facility] [address] [facility] [facility] code = 1538) [facility] 7703 0 POCT-GLUCOSE [id number] 16:50:00 Test Item Value Reference Range Interpretation Comments POC-GLUCOSE METER 134 mg/dL 70-110 H TESTED AT [facility] 6720 ([employer]) (test code = JENIFER Lemons [facility] 1538) [address] POCT-GLUCOSE [id number] 12:10:00 Test Item Value Reference Range Interpretation Comments POC-GLUCOSE METER 155 mg/dL 70-110 H TESTED AT [place] [address] ([facility]) (test code = JENIFER MARRERO [place] 1538) [address] POCT-GLUCOSE [id number] 05:34:00 Test Item Value Reference Range Interpretation Comments POC-GLUCOSE METER 249 mg/dL 70-110 H TESTED AT [place] [address] ([facility]) (test code = JENIFER Lemons [facility] 1538) [address] POCT-GLUCOSE [id number] 00:09:00 Test Item Value Reference Range Interpretation Comments POC-GLUCOSE METER 236 mg/dL 70-110 H TESTED AT [place] [address] ([facility]) (test code = JENIFER Lemons [facility] 1538) [address] POCT-GLUCOSE [id number] 21:17:00 Test Item Value Reference Range Interpretation Comments POC-GLUCOSE METER 153 mg/dL 70-110 H TESTED AT [place] [address] ([facility]) (test code = JENIFER Lemons [facility] 1538) [address] POCT-GLUCOSE [id number] 18:23:00 Test Item Value Reference Range Interpretation Comments POC-GLUCOSE METER 148 mg/dL 70-110 H TESTED AT [place] [address] ([facility]) (test code = JENIFER Lemons [facility] 1538) [address] [place], UGI, WITHOUT [id number] 17:33:00Reason for exam:->Please evaluate with thin barium [...] MDReport Verified Date/Time: 10/16/2018 17:33:25 Reading Location: [facility] C013X [facility] Consult Reading Room -GLUCOSE [id number] 05:59:00 Test Item Value Reference Range Interpretation Comments POC-GLUCOSE METER 192 mg/dL 70-110 H TESTED AT [facility] 67[address] ([facility]) (test code = JENIFER Lemons [facility] 1538) [address] POCT-GLUCOSE [id number] 00:39:00 Test Item Value Reference Range Interpretation Comments POC-GLUCOSE METER 172 mg/dL 70-110 H TESTED AT [place] [address] ([facility]) (test code = [facility] 1538) [address] POCT-GLUCOSE [id number] 22:13:00 Test Item Value Reference Range Interpretation Comments POC-GLUCOSE METER 187 mg/dL 70-110 H TESTED AT [place] [address] ([facility]) (test code = [facility] 1538) [address] RAD, CHEST, 1 VIEW, NON [id number] 18:59:00Reason for exam:->preopShould this be performed at [...] MDReport Verified Date/Time: 10/15/2018 18:59:09 Reading Location: [place] [address] C013W Consult Reading Room BASI [employer] [id number] 18:46:00 Test Item Value Reference Range Interpretation [...] NOT APPLICABLE FOR DIALYSIS PATIEN TS. HEMOGLOBIN [id number] 18:36:00 Test Item Value Reference Range Interpretation Comments HEMOGLOBIN A1C (BEAKER) (test code = 9.7 % 4.3-6.1 H 368) POCT-GLUCOSE [id number] 18:14:00 Test Item Value Reference Range Interpretation Comments POC-GLUCOSE METER 207 mg/dL 70-110 H TESTED AT [facility] 67[address] ([facility]) (test code = JENIFER MARRERO [place] 1538) [address] CBC W/PLT COUNT & AUTO [id number] 18:13:00 Test Item Value Reference Range Interpretation [...] % 0-1 PERCENT (BEAKER) (test code = 6742)
--- OUTSIDE RECORDS SUMMARY | 2020-02-25 07:55 | XMS REPORT | Clinical Summary ---
:1960 Author Organization [facility] Address [address] [place] [address] Care Team Providers Name Role Phone Pcp [...] Assigned at Date Recorded Not on file Last Filed Vital Signs Not on file Plan of Treatment Health Maintenance Due Date Last Done Comments BREAST CANCER SCREENING 1960 COLON CANCER SCREENING COLONOSCOPY 1960 PNEUMOCOCCAL VACCINE 0-64 YRS (1 of 1 - PPSV23) 1968 DIABETIC EYE EXAM 1972 DIABETIC FOOT EXAM 1972 URINE MICROALBUMIN 1972 CERVICAL CANCER SCREENING PAP ONLY (Age 21-65) 1983 LIPID PANEL 2007 HEMOGLOBIN A1C 01/15/2019 10/15/2018 INFLUENZA VACCINE (#1) 2019 Results Not on fileafter 02/24/2019 Insurance Payer Benefit Subscriber ID Effective Phone Address Type Plan / Dates Group BLUE BCBS OS [id number] 2018-Pres [phone] CROSS/BLUE POS/PPO/EPO ent [id number] [place] [address] MEDICAID - [facility] COMM [id number] 2018-Pres Med icaid MEDICAID MGD STAR PLAN ent [facility] Advance Directives For more information, please contact: [phone] Code Status Date Activated Date Inactivated Comments Full Code 10/15/2018 4:27 PM 10/18/2018 2:04 AM This code status was determined by: Patient
[2020-02-25 08:31] LABS: Absolute Lymphocytes (CBC) 2.3 K/uL (0.7-4.9); Basophils % 0.8 % (0-1.3); Hematocrit 36.9 % (36.0-45.0); Lymphocytes % 33.7 % (15.3-44.8); RBC Red Blood Cell Count 4.32 M/uL (3.86-4.86)
[2020-02-25 08:32] LABS: Protime INR 0.97
--- NOTE | 2020-02-25 08:39 | ER ---
Nurse's Notes [facility] Name: Tamy Martinez Age: 59 yrs Sex: Female : 1960 Arrival Date: 02/25/2020 Time: 07:55 Bed 5 Private MD: Diagnosis: Chest pain, unspecified;Syncope and collapse-near;Obesity, unspecified;Type 2 diabetes mellitus Presentation: 02/24 07:58 Chief complaint: EMS states: Chest pain that began at 0500 this morning, pt was at work ph when this occurred, reports dizziness, blurred vision and nausea, denies syncope, initial BP 212/120, HR 80s, 12 lead normal, pt reports hx of HTN and states that she did not take her morning medication, 324 ASA and 0.4 Nitro x 1 given, BP decreased to 168/82, BGL 281. Coronavirus screen: Client denies travel out of the [place] in the last 14 days. At this time, the client does not indicate any symptoms associated with coronavirus-19. Ebola Screen: No symptoms or risks identified at this time. Initial Sepsis Screen: Does the patient meet any 2 criteria? No. Patient's initial sepsis screen is negative. Does the patient have a suspected source of infection? No. Patient's initial sepsis screen is negative. Risk Assessment: Do you want to hurt yourself or someone else? Patient reports no desire to harm self or others. Onset of symptoms was February 25, 2020. Care prior to arrival: Medication(s) given: ASA, 81 mg, x 4, Nitroglycerin, 0.4 mg SL x 1. Transition of care: patient was not received from another setting of care. 07:58 Method Of Arrival: EMS: [facility] ph 07:58 Acuity: HODAN 2 ph Historical: - Allergies: 08:03 Iodinated Contrast Media - IV Dye; ph - Home Meds: 08:03 Lantus 100 unit/mL Sub-Q soln [Active]; Novolog Sub-Q [Active]; Xeljanz Oral [Active]; ph losartan oral oral [Active]; - PMHx: 08:03 Diabetes - IDDM; Rheumatoid Arthritis; Hypertension; ph - PSHx: 08:03 lap band and reversal; ph - Immunization history:: Adult Immunizations up to date, Pneumococcal vaccine is up to date, Flu vaccine is up to date. - Social history:: Smoking status: Patient denies any tobacco usage or history of. Patient/guardian denies using alcohol, street drugs. - Family history:: not pertinent. Screenin:04 Abuse screen: Denies threats or abuse. Denies injuries from another. Nutritional ph screening: No deficits noted. Tuberculosis screening: No symptoms or risk factors identified. Fall Risk None identified. Assessment: 08:04 General: Appears in no apparent distress. comfortable, well groomed, Behavior is calm, ph cooperative, appropriate for age, Denies fever, feeling ill. Pain: Complains of pain in mid-sternal area Pain does not radiate. Pain currently is 9 out of 10 on a pain scale. Pain began 3 hours ago. 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 Cardiovascular: Reports chest pain, lightheadedness, nausea, Capillary refill < 3 seconds in bilateral fingers Patient's skin is warm and dry. Respiratory: Airway is patent Respiratory effort is even, unlabored, Respiratory pattern is regular, symmetrical. GI: Reports nausea, Patient currently denies abdominal pain, diarrhea, vomiting. Derm: Skin is intact, Skin is pink, warm \T\ dry. Musculoskeletal: Circulation, motion, and sensation intact. Range of motion: intact in all extremities. 09:00 Reassessment: Patient appears in no apparent distress at this time. Patient and/or ph family updated on plan of care and expected duration. Pain level reassessed. Patient is alert, oriented x 3, equal unlabored respirations, skin warm/dry/pink. 10:12 Reassessment: Patient appears in no apparent distress at this time. Patient and/or ph family updated on plan of care and expected duration. Pain level reassessed. Patient is alert, oriented x 3, equal unlabored respirations, skin warm/dry/pink. 11:30 Reassessment: Patient appears in no apparent distress at this time. Patient and/or ph family updated on plan of care and expected duration. Pain level reassessed. Patient is alert, oriented x 3, equal unlabored respirations, skin warm/dry/pink. 12:05 Reassessment: Report called to MAY Arroyo on second floor, lunch tray delivered to ED, ph will allow pt to eat lunch before being transported upstairs. Vital Signs: 07:58 BP 196 / 79; Pulse 71; Resp 18; Temp 97.2; Pulse Ox 100% on R/A; Weight 92.99 kg; ph Height 5 ft. 1 in. (154.94 cm); Pain 9/10; 08:25 BP 140 / 60; Pulse 68; Resp 16; Temp 97.1(TE); Pulse Ox 100% on R/A; mh5 09:53 BP 169 / 81; Pulse 69; Resp 15; Pulse Ox 100% on R/A; tw2 11:00 BP 157 / 78; Pulse 68; Resp 18; Pulse Ox 99% on R/A; ph 12:00 BP 152 / 80; Pulse 67; Resp 18; Temp 97.7; Pulse Ox 99% on R/A; ph 07:58 Body Mass Index 38.73 (92.99 kg, 154.94 cm) ph ED Course: 07:55 Patient arrived in ED. em1 07:58 Anna Marie Milton, RN is Primary Nurse. ph 08:02 Triage completed. ph 08:03 EKG done, by ED staff. 5 08:04 Arm band placed on Patient placed in an exam room, on a stretcher, on medical doctor nuclear medicine, ph on pulse oximetry. 08:04 Patient has correct armband on for positive identification. Placed in gown. Bed in low ph position. Call light in reach. Side rails up X 1. director of distance learning on. Pulse ox on. NIBP on. Door closed. Noise minimized. Warm blanket given. 08:04 Patient has correct armband on for positive identification. Placed in gown. Bed in low mh5 position. Call light in reach. Side rails up X 1. 08:19 Ildefonso Melgar MD is Attending Physician. [facility] 08:23 Basic Metabolic Panel Sent. [facility] 08:23 CBC with Diff Sent. 5 08:23 LFT's Sent. 5 08:23 Magnesium Sent. 5 08:23 NT PRO-BNP Sent. [facility] 08:24 PT-INR Sent. [facility] 08:24 Troponin (emerg Dept Use Only) Sent. [facility] 08:24 Initial lab(s) drawn, by wa, sent to lab. Inserted saline lock: 22 gauge in right 5 forearm, using aseptic technique. Blood collected. 08:37 Shyam Kirkland MD is Hospitalizing Provider. barbara 08:42 XRAY Chest (1 view) In Process Unspecified. EDMS 10:25 Patient maintains SpO2 saturation greater than 95% on room air. tw2 11:34 Patient taken to ultrasound. via wheelchair. tw2 12:30 No provider procedures requiring assistance completed. Patient admitted, IV remains in ph place. Administered Medications: 08:32 Not Given (324 ASA given by EMS): Aspirin Chewable Tablet 162 mg PO once ph 09:03 Drug: Zofran (Ondansetron) 4 mg Route: IVP; Site: right antecubital; ph 10:25 Follow up: Response: No adverse reaction tw2 09:05 Drug: Pepcid 20 mg Route: IVP; Site: right antecubital; ph 10:24 Follow up: Response: No adverse reaction tw2 09:05 Drug: morphine 4 mg Route: IVP; Site: right antecubital; ph 10:24 Follow up: Response: No adverse reaction; Pain is decreased; RASS: Alert and Calm (0) tw2 09:06 Drug: Lovenox 90 mg Route: Sub-Q; Site: right lower abdomen; ph 10:24 Follow up: Response: No adverse reaction tw2 10:21 Not Given (pt condition, provider cancelled): Insulin Regular Human 8 units IVP once tw2 10:23 Drug: LanTUS 40 units Route: Sub-Q; Site: right upper abdomen; tw2 12:03 Follow up: Response: No adverse reaction ph Outcome: 08:38 Decision to Hospitalize by Provider. [facility] 12:40 Admitted to Tele accompanied by tech, family with patient, via wheelchair, with chart. ph 12:40 Condition: good 12:40 Instructed on the need for admit. 12:49 Patient left the ED. em1 Signatures: Dispatcher [employer] EDMS Ildefonso Melgar MD MD cha Martinez, Eric em1 Anna Marie Milton RN RN Nadege Chacon RN RN 2 Mary Ramsey [facility] Corrections: (The following items were deleted from the chart) 17:11 12:23 Reassessment: Patient appears in no apparent distress at this time. Patient ph and/or family updated on plan of care and expected duration. Pain level reassessed. Patient is alert, oriented x 3, equal unlabored respirations, skin warm/dry/pink. Report called to [facility], awaiting EMS for transport ph
--- NOTE | 2020-02-25 08:39 | EDPHYS ---
Physician Documentation [facility] Name: Tamy Martinez Age: 59 yrs Sex: Female : 1960 Arrival Date: 02/25/2020 Time: 07:55 Bed 5 Private MD: ED Physician Ildefonso Melgar HPI: 02/24 08:32 This 59 yrs old Female presents to ER via EMS with complaints of Chest Pain, barbara High Blood Pressure. 08:32 The patient or guardian reports chest pain that is located primarily in the anterior barbara chest wall. Onset: just prior to arrival, this morning. The pain radiates to the right arm. Associated signs and symptoms: Pertinent positives: lightheadedness, near-syncope. The chest pain is described as a heaviness, a pressure. Duration: The patient or guardian reports a single episode, that is still ongoing. Severity of pain: At its worst the pain was mild in the emergency department the pain is unchanged. The patient has not experienced similar symptoms in the past. Historical: - Allergies: 08:03 Iodinated Contrast Media - IV Dye; ph - Home Meds: 08:03 Lantus 100 unit/mL Sub-Q soln [Active]; Novolog Sub-Q [Active]; Xeljanz Oral [Active]; ph losartan oral oral [Active]; - PMHx: 08:03 Diabetes - IDDM; Rheumatoid Arthritis; Hypertension; ph - PSHx: 08:03 lap band and reversal; ph - Immunization history:: Adult Immunizations up to date, Pneumococcal vaccine is up to date, Flu vaccine is up to date. - Social history:: Smoking status: Patient denies any tobacco usage or history of. Patient/guardian denies using alcohol, street drugs. - Family history:: not pertinent. ROS: 08:32 Constitutional: Negative for fever, chills, and weight loss, Eyes: Negative for injury, barbara pain, redness, and discharge, ENT: Negative for injury, pain, and discharge, Neck: Negative for injury, pain, and swelling, Respiratory: Negative for shortness of breath, cough, wheezing, and pleuritic chest pain, Abdomen/GI: Negative for abdominal pain, nausea, vomiting, diarrhea, and constipation, Back: Negative for injury and pain, : Negative for injury, bleeding, discharge, and swelling, MS/Extremity: Negative for injury and deformity, Skin: Negative for injury, rash, and discoloration, Neuro: Negative for headache, weakness, numbness, tingling, and seizure, Psych: Negative for depression, anxiety, suicide ideation, homicidal ideation, and hallucinations, Allergy/Immunology: Negative for hives, rash, and allergies, Endocrine: Negative for neck swelling, polydipsia, polyuria, polyphagia, and marked weight changes, Hematologic/Lymphatic: Negative for swollen nodes, abnormal bleeding, and unusual bruising. 08:32 Cardiovascular: Positive for chest pain. Exam: 08:32 Constitutional: This is a well developed, well nourished patient who is awake, alert, barbara and in no acute distress. Head/Face: Normocephalic, atraumatic. Eyes: Pupils equal round and reactive to light, extra-ocular motions intact. Lids and lashes normal. Conjunctiva and sclera are non-icteric and not injected. Cornea within normal limits. Periorbital areas with no swelling, redness, or edema. ENT: Nares patent. No nasal discharge, no septal abnormalities noted. Tympanic membranes are normal and external auditory canals are clear. Oropharynx with no redness, swelling, or masses, exudates, or evidence of obstruction, uvula midline. Mucous membranes moist. Neck: Trachea midline, no thyromegaly or masses palpated, and no cervical lymphadenopathy. Supple, full range of motion without nuchal rigidity, or vertebral point tenderness. No Meningismus. Chest/axilla: Normal chest wall appearance and motion. Nontender with no deformity. No lesions are appreciated. Cardiovascular: Regular rate and rhythm with a normal S1 and S2. No gallops, murmurs, or rubs. Normal PMI, no JVD. No pulse deficits. Respiratory: Lungs have equal breath sounds bilaterally, clear to auscultation and percussion. No rales, rhonchi or wheezes noted. No increased work of breathing, no retractions or nasal flaring. Abdomen/GI: Soft, non-tender, with normal bowel sounds. No distension or tympany. No guarding or rebound. No evidence of tenderness throughout. Back: No spinal tenderness. No costovertebral tenderness. Full range of motion. Skin: Warm, dry with normal turgor. Normal color with no rashes, no lesions, and no evidence of cellulitis. MS/ Extremity: Pulses equal, no cyanosis. Neurovascular intact. Full, normal range of motion. Neuro: Awake and alert, GCS 15, oriented to person, place, time, and situation. Cranial nerves II-XII grossly intact. Motor strength 5/5 in all extremities. Sensory grossly intact. Cerebellar exam normal. Normal gait. Psych: Awake, alert, with orientation to person, place and time. Behavior, mood, and affect are within normal limits. Vital Signs: 07:58 BP 196 / 79; Pulse 71; Resp 18; Temp 97.2; Pulse Ox 100% on R/A; Weight 92.99 kg; ph Height 5 ft. 1 in. (154.94 cm); Pain 9/10; 08:25 BP 140 / 60; Pulse 68; Resp 16; Temp 97.1(TE); Pulse Ox 100% on R/A; mh5 09:53 BP 169 / 81; Pulse 69; Resp 15; Pulse Ox 100% on R/A; tw2 11:00 BP 157 / 78; Pulse 68; Resp 18; Pulse Ox 99% on R/A; ph 12:00 BP 152 / 80; Pulse 67; Resp 18; Temp 97.7; Pulse Ox 99% on R/A; ph 07:58 Body Mass Index 38.73 (92.99 kg, 154.94 cm) ph MDM: 08:19 Patient medically screened. barbara 08:34 Differential diagnosis: abnormal EKG, acute myocardial infarction, acute pericarditis, barbara coronary artery disease chest wall pain, congestive heart failure cholecystitis, Cholelithiasis costochondritis, gastritis, gastroesophageal reflux disease (GERD), hiatal hernia, pancreatitis, pleurisy, pneumonia, pulmonary embolus, stable angina, unstable angina. HEART Score: History: Slightly Suspicious (0), ECG: Normal (0), Age: > 45 and < 65 years (1), Risk Factors: > or = 3 Risk factors for atherosclerotic disease (2), [Hypertension] [DM] [+ Family HX] [Obesity]. The patient was given aspirin in the Emergency Department. The patient's deep vein thrombosis risk score was calculated as follows: Total Score: 0. This patient was found to be at low risk for a deep vein thrombosis by using the Well's assessment criteria. The patient's pulmonary embolism risk score was calculated as follows: Total Score: 0-2 points. This patient was found to be at low risk for a pulmonary embolism by using the Well's assessment criteria. LO Risk Score: 1 - Three or more CAD risk factors, [Family Hx], [HTN], [Elevated Cholesterol], [DM], 1- Known CAD, 1 - ASA use in past 7 days, TOTAL SCORE = 3. Data reviewed: vital signs, nurses notes, lab test result(s), EKG, radiologic studies, plain films. Data interpreted: air sampling and monitoring: not applicable for this patient encounter. rhythm is regular, Pulse oximetry: on room air is 100 %. Test interpretation: by ED physician or midlevel provider: ECG, plain radiologic studies. 02/24 08:05 Order name: Basic Metabolic Panel; Complete Time: 10:03 rn 02/24 08:05 Order name: CBC with Diff; Complete Time: 10:03 rn 02/24 08:05 Order name: LFT's; Complete Time: 10:03 rn 02/24 08:05 Order name: Magnesium; Complete Time: 10: rn 02/24 08:05 Order name: NT PRO-BNP; Complete Time: 10:03 rn 02/24 08:05 Order name: PT-INR; Complete Time: 10:03 rn 02/24 08:05 Order name: Troponin (emerg Dept Use Only); Complete Time: 10:03 rn 02/24 08:05 Order name: XRAY Chest (1 view); Complete Time: 10:03 rn 02/24 08:32 Order name: Lipase; Complete Time: 10:03 [facility] 02/24 10:27 Order name: Glucose, Ancillary Testing; Complete Time: 12:11 EDMS 02/24 11:22 Order name: CBC with Automated Diff EDMS 02/24 11:22 Order name: CBC with Automated Diff EDMS 02/24 11:22 Order name: Comprehensive Metabolic Panel EDMS 02/24 11:22 Order name: Comprehensive Metabolic Panel EDNJ 02/24 08:05 Order name: EKG; Complete Time: 08:06 rn 02/24 08:05 Order name: Cardiac monitoring; Complete Time: 08:07 rn 02/24 08:05 Order name: EKG - Nurse/Tech; Complete Time: 08:07 rn 02/24 08:05 Order name: IV Saline Lock; Complete Time: 08:24 rn 02/24 08:05 Order name: Labs collected and sent; Complete Time: 08:34 rn 02/24 11:22 Order name: CONS Pharmacy Consult EDMS 02/24 11:22 Order name: Regular EDMS 02/24 11:23 Order name: Echo with Doppler EDMS 02/24 11:23 Order name: Carotid Artery Bilateral EDMS 02/24 08:05 Order name: O2 Per Protocol; Complete Time: 08:09 rn 02/24 08:05 Order name: O2 Sat Monitoring; Complete Time: 08:09 rn Administered Medications: 08:32 Not Given (324 ASA given by EMS): Aspirin Chewable Tablet 162 mg PO once ph 09:03 Drug: Zofran (Ondansetron) 4 mg Route: IVP; Site: right antecubital; ph 10:25 Follow up: Response: No adverse reaction tw2 09:05 Drug: Pepcid 20 mg Route: IVP; Site: right antecubital; ph 10:24 Follow up: Response: No adverse reaction tw2 09:05 Drug: morphine 4 mg Route: IVP; Site: right antecubital; ph 10:24 Follow up: Response: No adverse reaction; Pain is decreased; RASS: Alert and Calm (0) tw2 09:06 Drug: Lovenox 90 mg Route: Sub-Q; Site: right lower abdomen; ph 10:24 Follow up: Response: No adverse reaction tw2 10:21 Not Given (pt condition, provider cancelled): Insulin Regular Human 8 units IVP once tw2 10:23 Drug: LanTUS 40 units Route: Sub-Q; Site: right upper abdomen; tw2 12:03 Follow up: Response: No adverse reaction ph Disposition: 02/25/20 08:38 Hospitalization ordered by Shyam Kirkland for Observation. Preliminary diagnosis are Chest pain, unspecified, Syncope and collapse - near, Obesity, unspecified, Type 2 diabetes mellitus. - Bed requested for Telemetry/MedSurg (observation). - Status is Observation. em1 - Condition is Stable. - Problem is new. - Symptoms have improved. Signatures: Dispatcher [employer] EDNJ Ildefonso Melgar MD MD cha Nieto, Roman, MD MD rn Martinez, Eric em1 Anna Marie Milton RN RN Nadege Chacon RN RN tw2 Navarrete, Vernon, RN RN ja1 Corrections: (The following items were deleted from the chart) 11:46 08:38 Hospitalization Ordered by Shyam Kirkland MD for Observation. Preliminary ja1 diagnosis is Chest pain, unspecified; Syncope and collapse - near; Obesity, unspecified; Type 2 diabetes mellitus. Bed requested for Telemetry/MedSurg (observation). Status is Observation. Condition is Stable. Problem is new. Symptoms have improved. [facility] 12:03 11:46 02/25/2020 08:38 Hospitalization Ordered by Shyam Kirkland MD for Observation. ja1 Preliminary diagnosis is Chest pain, unspecified; Syncope and collapse - near; Obesity, unspecified; Type 2 diabetes mellitus. Bed requested for Telemetry/MedSurg (observation). Status is Observation. Condition is Stable. Problem is new. Symptoms have improved. ja1 12:49 12:03 02/25/2020 08:38 Hospitalization Ordered by Shyam Kirkland MD for Observation. em1 Preliminary diagnosis is Chest pain, unspecified; Syncope and collapse - near; Obesity, unspecified; Type 2 diabetes mellitus. Bed requested for Telemetry/MedSurg (observation). Status is Observation. Condition is Stable. Problem is new. Symptoms have improved. jaRayna
[2020-02-25 08:54] LABS: ALT/SGPT 25 U/L (12-78); AST/SGOT 23 U/L (15-37); Albumin 3.2 g/dL (3.4-5.0); Alkaline Phosphatase 131 U/L (45-117); BUN Blood Urea Nitrogen 16 mg/dL (7-18); Bicarbonate 29 mmol/L (21-32); Bilirubin Direct < 0.1 mg/dL (0-0.2); Bilirubin Total 0.3 mg/dL (0.2-1.0); Glucose Level 315 mg/dL (74-106); Magnesium 1.9 mg/dL (1.8-2.4); NT PRO-BNP 322 pg/mL (<125); Potassium 3.8 mmol/L (3.5-5.1); Protein, Total 7.4 g/dL (6.4-8.2); Sodium Level 136 mmol/L (136-145); Troponin (Emerg Dept Use Only) < 0.02 ng/mL (0.0-0.045)
[2020-02-25] MEDS ORDERED: MORPHINE 4 MG/ML SYR ONE (08:54)
[2020-02-25] MEDS ORDERED: ONDANSETRON 4 MG/2 ML VIAL ONE (08:54)
[2020-02-25] MEDS ORDERED: ENOXAPARIN 100 MG/ML SYR SQ ONE (08:55)
[2020-02-25] MEDS ORDERED: FAMOTIDINE 20 MG/2 ML VIAL IV ONE (08:55)
--- NOTE | 2020-02-25 09:01 | RAD REPORT ---
EXAM DESCRIPTION: RAD - Chest Single View - 02/25/2020 8:42 am CLINICAL HISTORY: CHEST PAIN COMPARISON: Portable November 07, 2019 TECHNIQUE: AP portable chest image was obtained 02/25/2020 8:42 am . FINDINGS: No peripheral mass or consolidations seen. Interstitial markings are increased slightly fr om comparison. No convincing evidence for ground-glass opacification. Trachea is midline. Heart and vasculature are normal. No measurable pleural effusion and no pneumotho rax. No acute bony abnormality seen. No acute aortic findings suspected. IMPRESSION: Subtle increase in interstitial opacification compared October imaging. A mild interstiti al edema or infiltrate would be possible. No focal ground-glass opacification seen to suspect more aggressive viral pneumonia.
[2020-02-25] MEDS ORDERED: INSULIN GLARGINE 100 UNITS/ML SQ ONE (10:32)
[2020-02-25] MEDS ORDERED: INSULIN -REGULAR HUMAN 50 UNIT/0.5 ML ML ONE (10:32)
[2020-02-25] MEDS ORDERED: ACETAMINOPHEN 500 MG TAB PO PRN (11:20)
--- NOTE | 2020-02-25 12:18 | RAD REPORT ---
EXAM DESCRIPTION: - CP - 02/25/2020 12:05 pm CLINICAL HISTORY: syncope and collapse COMPARISON: Carotid Artery Bilateral dated 09/25/2018 TECHNIQUE: Real-time sonographic evaluation of bilateral carotid and vertebral systems was performed . Davila scale and Doppler interrogation were performed with waveform tracing bilaterally. FINDINGS: Normal high resistance waveforms are noted in both external carotid arteries. The common c arotid arteries and internal carotid arteries show normal low resistance waveforms. Calcified and noncalcified plaquing changes present along the posterior wall of the right carotid bul b. Right common carotid artery intimal thickening present. Right bulb plaquing changes extend into th e proximal portion of the right internal carotid artery. Visually stenosis is approximately 50% match ing the September 2018 study. The velocity and ratio values do not indicate significant stenosis. Calcified plaquing changes are present at the left carotid bulb and origin of the left external carot id artery. No significant left internal carotid plaquing changes. ICA/CCA ratios are 1.4 on the right and 1.1 on the left. Antegrade flow seen in both vertebral arteries. Velocity values and ratios were recorded and are retained in the patient's imaging records. IMPRESSION: Bilateral calcified plaquing changes are present not substantially different from September 11. Visual inspection demonstrates approximately 50% stenosis at the right ICA. The velocity values and I CA/CCA ratios are normal range. No significant stenosis seen in the left carotid vasculature. The above detailed findings are not substantially different from September 2018.
[2020-02-25] MEDS: NA CHLORIDE 0.9% 1,000 ML IV SCH ×2 (13:35→19:57)
[2020-02-25] MEDS: ONDANSETRON 4 MG/2 ML VIAL IV PRN ×2 (13:36→20:52)
[2020-02-25] MEDS: MORPHINE 2 MG/ML SYR IV PRN ×2 (13:36→20:52)
[2020-02-25 14:57] VITALS: BMI 38.7
--- NOTE | 2020-02-25 19:33 | EKG ---
Test Date: 2020-02-25 Test Time: 07:59:59 Airplane Flight Attendant Supervisor: MERLE MEASUREMENT RESULTS: Intervals: Rate: 72 AK: 150 QRSD: 88 QT: 410 QTc: 448 [place]: P: 58 AK: 150 QRS: -12 T: 60 INTERPRETIVE STATEMENTS: Normal sinus rhythm Minimal voltage criteria for LVH, may be normal variant Borderline ECG Compared to ECG 11/07/2019 12:07:31 Left ventricular hypertrophy now present Electronically Signed On 02-25-20 19:32:21 PASTA MAKER by Tarun Edward
[2020-02-25] MEDS ORDERED: D50W 25 GM/50 ML SYRINGE IV PRN (20:15)
[2020-02-25] MEDS ORDERED: GLUCAGON 1 MG/VIAL IM PRN (20:15)
[2020-02-25] MEDS: INSULIN -REGULAR HUMAN 50 UNIT/0.5 ML ML SQ SCH (20:49)
[2020-02-26] MEDS: NA CHLORIDE 0.9% 1,000 ML IV SCH ×4 (02:00→20:18)
[2020-02-26 04:25] LABS: Absolute Lymphocytes (CBC) 2.1 K/uL (0.7-4.9); Hematocrit 34.5 % (36.0-45.0); Lymphocytes % 30.2 % (15.3-44.8); RBC Red Blood Cell Count 4.07 M/uL (3.86-4.86)
[2020-02-26 04:30] LABS: Albumin 2.9 g/dL (3.4-5.0); Bilirubin Total 0.3 mg/dL (0.2-1.0); Potassium 4.2 mmol/L (3.5-5.1); Protein, Total 6.5 g/dL (6.4-8.2)
[2020-02-26] MEDS: INSULIN -REGULAR HUMAN 50 UNIT/0.5 ML ML SQ SCH ×4 (07:30→20:30)
--- NOTE | 2020-02-26 08:53 | ECHO ---
HEIGHT: 5 ft 1 in WEIGHT: 205 lb 0 oz DATE OF STUDY: 02/25/[address]: Shyam Kirkland MD 2-DIMENSIONAL: YES M.MODE: YES DOPPLER: YES COLOR FLOW: YES TDS: PORTABLE: DEFINITY: BUBBLE STUDY: DIAGNOSIS: SYNCOPE AND COLLAPSE CARDIAC HISTORY: CATHERIZATION: NO SURGERY: NO PROSTHETIC VALVE: NO PACEMAKER: NO MEASUREMENTS (cm) DIASTOLIC (NORMALS) SYSTOLIC (NORMALS) IVSd 1.1 (0.6-1.2) LA Diam 2.7 (1.9-4.0) LVEF 70% LVIDd 3.3 (3.5-5.7) LVIDs 2.0 (2.0-3.5) %FS 39% LVPWd 1.2 (0.6-1.2) Ao Diam 2.6 (2.0-3.7) 2 DIMENSIONAL ASSESSMENT: RIGHT ATRIUM: LEFT ATRIUM: RIGHT VENTRICLE: LEFT VENTRICLE: TRICUSPID VALVE: MITRAL VALVE: PULMONIC VALVE: AORTIC VALVE: PERICARDIAL EFFUSION: AORTIC ROOT: LEFT VENTRICULAR WALL MOTION: DOPPLER/COLOR FLOW: COMMENTS: NORMAL 2-DIMENSIONAL ECHOCARDIOGRAM WITH DOPPLER. NO WALL MOTION ABNORMALITY. NO ATRIAL SEPTAL DEFECT. TECHNOLOGIST: DAPHNIE DAVIS
[2020-02-26] MEDS ORDERED: REGADENOSON 0.4 MG/5 ML SYR IV ONE (09:01)
[2020-02-26] MEDS: MORPHINE 2 MG/ML SYR IV PRN ×3 (09:17→22:45)
[2020-02-26] MEDS ORDERED: HYDROCORTISONE SUC 100 MG INJ IV ONE (09:23)
[2020-02-26] MEDS ORDERED: SODIUM CHLORIDE 0.9% 10ML INJ IV PRN (09:25)
[2020-02-26] MEDS ORDERED: PANTOPRAZOLE 40 MG INJ IVP ONE (09:25)
--- NOTE | 2020-02-26 09:25 | P.HP ---
Certification for Inpatient Patient admitted to: Observation With expected LOS: <2 Midnights Patient will require the following post-hospital care: None Practitioner: I am a practitioner with admitting privileges, knowledge of patient current condition, hospital course, and medical plan of care. Services: Services provided to patient in accordance with Admission requirements found in Title 42 Section 412.3 of the Code of Federal Regulations Patient History Date of Service: 02/25/20 Reason for admission: Chest pain rule out acute coronary syndrome/near syncope History of Present Illness: Patient is a 59-year-old female came to the hospital after having chest pain and a near syncopal event. Patient been having some discomfort in the sternal regio n. She said she felt the chest pain going towards the right side. She says she started drifting towards the right side in almost passed out. She has not been eating well either. She feels like she has some esophageal issues which is related to her lap band surgery. She also has a family history of her father passing away in his 40s of heart disease. She say she had a stress test about 5- 6 years ago that did not reveal any abnormality. At this time, will admit her to the hospital to be ruled out for acute coronary syndrome. If her chest pain is persistent will go ahead and start her on anti coagulation and get a stress test. Otherwise will do an echocardiogram and carotid Doppler and serial troponins and EKG. Allergies Iodinated Contrast Media [Iodinated Contrast Media - Oral and] Allergy (Severe, Verified 03/13/17 21:21) Unknown iodine [Iodine] Allergy (Severe, Verified 04/11/16 14:05) Itching and swelling Home Medications: Folic Acid 1 tab PO DAILY 02/25/20 Gabapentin [Neurontin] 1 tab PO BID 02/25/20 Insulin Aspart [Novolog] See Protocol SQ ACHS 02/25/20 Insulin Glargine Human [Lantus*] 26 units SQ BREAKFAST 02/25/20 Liraglutide [Victoza 2-Zan] 6 units SQ BEDTIME 02/25/20 Losartan Potassium [Cozaar] 1 tab PO DAILY 02/25/20 Meloxicam [Mobic] 1 tab PO DAILY PRN 02/25/20 Methotrexate Sodium [Methotrexate] 1 tab PO SEECOM 02/25/20 Tofacitinib Citrate [Xeljanz Xr] 1 tab PO DAILY 02/25/20 Vitamin D [Drisdol*] 1 cap PO SEECOM 02/25/20 - Past Medical/Surgical History Has patient received pneumonia vaccine in the past: Yes Diabetic: Yes -: DM -: HTN -: Rheuamtoid Arthritis -: Degenerative disk and joint disease of the spine -: Lap band 2009 -: x2 -: Left knee replacement -: Cholecystectomy -: right knee replacement Psychosocial/ Personal History: She is , has 2 children. She does not work. - Family History Father Medical History: Hypertension Notes: brother had OH at 30; Mother Medical History: Cancer Notes: esophageal - Social History Smoking Status: Never smoker Alcohol use: No CD- Drugs: No Caffeine use: No Place of Residence: Home Review of Systems 10-point ROS is otherwise unremarkable Physical Examination - Vital Signs Temperature: 97.8 F Blood Pressure: 140/54 Pulse: 72 Respirations: 18 Pulse Ox (%): 96 - Physical Exam General: Alert, In no apparent distress, Oriented x3 HEENT: Atraumatic, PERRLA, Mucous membr. moist/pink, EOMI, Sclerae nonicteric Neck: Supple, 2+ carotid pulse no bruit, No LAD, Without JVD or thyroid abnormality Respiratory: Clear to auscultation bilaterally, Normal air movement Cardiovascular: Regular rate/rhythm, Normal S1 S2, No murmurs Gastrointestinal: Normal bowel sounds, Soft and benign, Non-distended, No tenderness Musculoskeletal: No clubbing, No swelling, No tenderness Integumentary: No rashes Neurological: Normal gait, Normal speech, Normal strength at 5/5 x4 extr, Normal tone, Sensation intact, Cranial nerves 3-12 intact, Normal affect Lymphatics: No axilla or inguinal lymphadenopathy - Studies Laboratory Data (last 24 hrs) 02/25/20 08:20: Lipase 117 Assessment & Plan - Problems (Diagnosis) (1) Chest pain, rule out acute myocardial infarction Current Visit: Yes Status: Acute (2) Near syncope Current Visit: Yes Status: Acute (3) DJD (degenerative joint disease) Onset Date: 04/12/16 Current Visit: No Status: Chronic Qualifiers: (4) Diabetes mellitus Onset Date: 03/15/17 Current Visit: No Status: Chronic (5) Hypertensive disorder, systemic arterial Current Visit: No Status: Chronic (6) Rheumatoid arthritis RA Onset Date: 03/15/17 Current Visit: No Status: Chronic (7) Obstructive sleep apnea Current Visit: No Status: Suspected (8) Hypertensive urgency Onset Date: 03/15/17 Current Visit: No Status: Resolved - Plan 1. Serial troponins and EKG 2. Cardiology consultation if her symptoms are persistent 3. Echocardiogram common carotid Doppler and we may do stress test if chest pa in continues 4. Anti-platelet therapy, anti coagulation, beta-renaldo, statin, and O2 as needed 5. IV morphine for pain 6. Nitro p.r.n. 7. Outpatient GI workup for esophageal strictures 8. GI and DVT prophylaxis Discharge Plan: Home Plan to discharge in: Greater than 2 days - Advance Directives Does patient have a Living Will: No Does patient have a Durable POA for Healthcare: No - Code Status/Comfort Care Code Status Assessed: Yes Code Status: Full Code Critical Care: No Time Spent Managing PTS Care (In Minutes): 40
[2020-02-26] MEDS ORDERED: GLUCAGON 1 MG/VIAL IM PRN (09:26)
[2020-02-26] MEDS ORDERED: D50W 25 GM/50 ML SYRINGE IV PRN (09:26)
--- NOTE | 2020-02-26 09:48 | P.PN ---
Subjective Date of Service: 02/26/20 Patient still complaining sternal/chest pain. Also did complain of difficulty with eating her food. This is probably GI related but with her family history and her medical problems will go ahead and get up pharmacologic stress test. Review of Systems 10-point ROS is otherwise unremarkable Physical Examination - Vital Signs Temperature: 97.8 F Blood Pressure: 140/54 Pulse: 72 Respirations: 18 Pulse Ox (%): 96 - Physical Exam General: Alert, In no apparent distress HEENT: Atraumatic, PERRLA, EOMI Neck: Supple, JVD not distended Respiratory: Clear to auscultation bilaterally, Normal air movement Cardiovascular: Regular rate/rhythm, Normal S1 S2 Gastrointestinal: Normal bowel sounds, No tenderness Musculoskeletal: No tenderness Integumentary: No rashes Neurological: Normal speech, Normal tone, Normal affect Lymphatics: No axilla or inguinal lymphadenopathy - Studies Medications List Reviewed: Yes Assessment & Plan - Problems (Diagnosis) (1) Chest pain, rule out acute myocardial infarction Status: Acute (2) Near syncope Status: Acute (3) DJD (degenerative joint disease) Onset Date: 04/12/16 Status: Chronic Qualifiers: (4) Diabetes mellitus Onset Date: 03/15/17 Status: Chronic (5) Hypertensive disorder, systemic arterial Status: Chronic (6) Rheumatoid arthritis RA Onset Date: 03/15/17 Status: Chronic (7) Obstructive sleep apnea Status: Suspected (8) Hypertensive urgency Onset Date: 03/15/17 Status: Resolved - Plan 1. Serial troponins and EKG 2. Cardiology consultation for positive stress test 3. Stress test revealed perfusion abnormality 4. Anti-platelet therapy, anti coagulation, beta-renaldo, statin, and O2 as needed 5. IV morphine for pain 6. Nitro p.r.n. 7. Outpatient GI workup for esophageal strictures 8. GI and DVT prophylaxis Discharge Plan: Home Plan to discharge in: Greater than 2 days - Advance Directives Does patient have a Living Will: No Does patient have a Durable POA for Healthcare: No - Code Status/Comfort Care Code Status: Full Code Critical Care: No Time Spent Managing PTS Care (In Minutes): 35
[2020-02-26] MEDS: INSULIN GLARGINE 100 UNITS/ML SQ SCH (09:49)
--- NOTE | 2020-02-26 11:45 | RAD REPORT ---
EXAM DESCRIPTION: NM - Rest Stress Cardiac Imaging - 02/26/2020 11:40 am CLINICAL HISTORY: CP Chest pain. COMPARISON: Rest Stress Cardiac Imaging dated 06/28/2018 TECHNIQUE: The patient was administered approximately 10mCi of Tc 99m Sestamibi prior to resting SPE CT imaging of the heart. The patient was then administered approximately 30 mCi of Tc 99m Sestamibi f ollowing exercise or pharmacologic stress. Multiplanar SPECT images were reviewed. FINDINGS: Small area of moderate stress-induced ischemia is seen LV apex. No fixed defect is seen to suggest hibernating myocardium or scarred myocardium. The end diastolic volume is 99 ml, the end systolic volume is 34 ml, and the ejection fraction is 66 %. IMPRESSION: Small area of moderate stress-induced ischemia LV apex.
[2020-02-26] MEDS: LOSARTAN POTASSIUM 50 MG TABLET PO SCH (12:14)
[2020-02-26] MEDS: GABAPENTIN 300 MG CAP PO SCH ×2 (15:43→20:18)
--- NOTE | 2020-02-26 19:15 | EKG ---
Test Date: 2020-02-25 Test Time: 21:21:48 Driver Starting Gate: RT Stanley MEASUREMENT RESULTS: Intervals: Rate: 66 [place]: 154 QRSD: 66 QT: 400 QTc: 419 [place]: P: 33 [place]: 154 QRS: -4 T: 26 INTERPRETIVE STATEMENTS: Normal sinus rhythm Nonspecific ST abnormality Abnormal ECG Compared to ECG 02/25/2020 07:59:59 ST (T wave) deviation now present Left ventricular hypertrophy no longer present Electronically Signed On 02-26-20 19:12:47 REHAB DIRECTOR by Tarun Edward
[2020-02-26] MEDS ORDERED: predniSONE 20 MG TAB PO ONE (20:00)
[2020-02-27] MEDS ORDERED: predniSONE 20 MG TAB PO ONE (06:00)
--- NOTE | 2020-02-27 07:28 | TREADPHA ---
DX: CHEST PAIN Date of Study: 02/26/2020 Ht: 5' 1 " Wt: 205 lb 0 oz Consulting Physician: CHASTITY MEDICATIONS: TYLENOL, GLUCAGEN, DEXTROSE, NOVOLIN-R HISTORY: HYPERTENSION, INSULIN DEPENDENT DIABETES MELLITUS PHYSICIAL EXAMINATION: RESTING B.P.: 148/58 RESTING H.R.: 69 RESTING EKG: NORMAL PROTOCOL: PHARMACOLOGIC EXERCISE TIME: 3:30 B.P. AT [place] STRESS: IMPRESSION: LEXISCAN PENDING. SEE REPORT.
[2020-02-27] MEDS: NA CHLORIDE 0.9% 1,000 ML IV SCH ×2 (07:45→12:49)
[2020-02-27] MEDS: INSULIN GLARGINE 100 UNITS/ML SQ SCH (07:47)
[2020-02-27] MEDS: MORPHINE 2 MG/ML SYR IV PRN ×2 (07:48→20:07)
[2020-02-27] MEDS: LOSARTAN POTASSIUM 50 MG TABLET PO SCH (07:56)
[2020-02-27] MEDS: INSULIN -REGULAR HUMAN 50 UNIT/0.5 ML ML SQ SCH ×4 (07:57→20:08)
[2020-02-27] MEDS: GABAPENTIN 300 MG CAP PO SCH ×2 (07:57→20:08)
[2020-02-27] MEDS: FOLIC ACID 1 MG TABLET PO SCH (07:57)
[2020-02-27] MEDS ORDERED: DRISDOL (VITAMIN D=ERGOCALCIFEROL) 50000 UNIT CAP PO SCH ×2 (09:00)
[2020-02-27] MEDS: ASPIRIN EC 81 MG TAB PO SCH (10:05)
[2020-02-27] MEDS: CLOPIDOGREL 75 MG TABLET PO SCH (10:05)
[2020-02-27] MEDS ORDERED: LIDOCAINE 1% 20 ML MDV ONE (10:06)
[2020-02-27] MEDS ORDERED: HEPA 1000U/500MLS 2,000 UNIT/1,000 ML BAG IV ONE (10:06)
[2020-02-27] MEDS ORDERED: HEPARIN 5000 UNIT/ML 1 ML VIAL ONE (14:21)
[2020-02-27] MEDS ORDERED: MIDAZOLAM HCL 2 MG/2 ML INJ ONE ×2 (14:21→14:33)
[2020-02-27] MEDS ORDERED: ATROPINE SULF 1 MG/10 ML SYR IV ONE (14:22)
[2020-02-27] MEDS ORDERED: FENTANYL CITR 100 MCG/2 ML ONE (14:22)
[2020-02-27] MEDS ORDERED: NITROGLYCERIN 100 MCG/ML SYR (for cath lab use only) IV ONE (14:22)
[2020-02-27] MEDS ORDERED: VERAPAMIL HCL 10 MG/4 ML VIAL IV ONE (14:22)
[2020-02-27] MEDS ORDERED: HEPARIN 10,000 UNIT/10 ML VIAL IV ONE (14:22)
[2020-02-27] MEDS ORDERED: DIPHENHYDRAMINE 50 MG/ML VIAL ONE (14:38)
[2020-02-27] MEDS ORDERED: METHYLPREDNISOLONE 125 MG INJ ONE (14:41)
[2020-02-27] MEDS ORDERED: HYDRALAZINE HCL 20 MG/ML VIAL ONE (15:01)
[2020-02-27] MEDS ORDERED: CLOPIDOGREL 75 MG TABLET ONE (15:15)
[2020-02-27] MEDS ORDERED: HEPA 1000U/500MLS 1,000 UNIT/500 ML BAG IV ONE (15:15)
[2020-02-27] MEDS ORDERED: EPINEPHrine 1 MG/10 ML SYR ONE (15:22)
[2020-02-27] MEDS ORDERED: ONDANSETRON 4 MG/2 ML VIAL ONE (15:42)
[2020-02-27] MEDS ORDERED: NA CHLORIDE 0.9% 1,000 ML ONE (15:43)
--- NOTE | 2020-02-27 16:23 | OP ---
Date of Procedure: 02/27/2020 Surgeon: EUGENIA CRUZ Procedures: 1.Selective coronary angiogram. 2.Percutaneous coronary intervention of mid and distal RCA severe disease using 2.75 x 32 mm Synergy drug-eluting stent. Indications: Unstable angina with positive stress test. Complications: None. Bleeding: Less than 20 mL. Access: Right femoral artery 6-[place], closed with Angio-Seal 6-[place] and failed attempt of the rig ht radial artery. Description Of Procedure: After risks, benefits, and alternatives were explained, the patient agreed to the procedure and signed informed consent. The patient was brought into cardiac catheterization laboratory, prepped and draped in usual sterile fashion. We used fentanyl and Versed in incremental doses to achieve adequate moderate sedation. Then, we tried to access the right radial artery, but w e failed and then we went to the right femoral artery using micropuncture kit and fluoroscopy and ult rasound guidance, and cannulated the right femoral artery, placed 6-[place] sheath and then t ook a 6-[place] JL3.5 catheter into the aortic root, engaged left main, took standard views and then e xchanged for 6-[place] JR4 catheter, engaged the right coronary artery, took standard views and the ca theter was pushed into the LV, recorded LVEDP and then upon pullback, there was no difference in pres sure. Then, it was decided to intervene on the right coronary artery. Intervention Details: The patient was given heparin to assure ACT level above 250 throughout the pro cedure. Then, we accessed the right coronary artery using a 6-[place] JR4 guide with side holes and u sing a Run-Through wire, we crossed the lesion and pre-dilated using 2.5 x 20 mm Compliant balloon at high pressure. We then placed a 2.75 x 30 mm Synergy drug-eluting stent with good results. No comp lications. Then, we removed the catheter and the sheath and we closed the site using 6-[place] Angio- Seal with good hemostasis. Findings: 1.Left main is normal. 2.LAD; diffusely diseased, especially in the mid segment about 30% diffuse disease, very long, disea se segment, but LO-3 flow and the diagonal branch comes off the LAD, small vessel with 80% proximal disease. 3.Left circumflex; moderate size with luminal irregularities. 4.RCA; dominant vessel, proximally has a diffuse 30% disease and it is rather a small caliber and th en in the mid section, there is diffuse 80% disease and then at the close to the distal section, ther e was a focal area of 90% stenosis. Status post successful PCI as above. Conclusions: 1.Lfrc-zv-fysvsgnn mid LAD stenosis to be managed medically. 2.Severe mid to distal RCA stenosis, status post PCI as above. Recommendations: Plavix, aspirin, and statin. Follow up in 4 weeks post discharge. SR/MODL Voice ID: [id number] Report ID: [id number]
[2020-02-27] MEDS ORDERED: ATORVASTATIN 40 MG TAB PO SCH (21:00)
[2020-02-28] MEDS: NA CHLORIDE 0.9% 1,000 ML IV SCH (01:08)
[2020-02-28 06:35] VITALS: TEMP 97.8
[2020-02-28] MEDS: INSULIN -REGULAR HUMAN 50 UNIT/0.5 ML ML SQ SCH (07:30)
[2020-02-28] MEDS: ASPIRIN EC 81 MG TAB PO SCH (08:25)
[2020-02-28] MEDS: GABAPENTIN 300 MG CAP PO SCH (08:26)
[2020-02-28] MEDS: CLOPIDOGREL 75 MG TABLET PO SCH (08:26)
[2020-02-28] MEDS: FOLIC ACID 1 MG TABLET PO SCH (08:26)
[2020-02-28] MEDS: LOSARTAN POTASSIUM 50 MG TABLET PO SCH (08:27)
[2020-02-28] MEDS: INSULIN GLARGINE 100 UNITS/ML SQ SCH (08:28)
--- NOTE | 2020-02-28 08:42 | P.PN ---
Subjective Date of Service: 02/27/20 Patient scheduled for cardiac catheterization today. Review of Systems 10-point ROS is otherwise unremarkable Physical Examination - Vital Signs Temperature: 97.8 F Blood Pressure: 117/56 Pulse: 77 Respirations: 18 Pulse Ox (%): 95 - Physical Exam General: Alert, In no apparent distress, Oriented x3 Respiratory: Clear to auscultation bilaterally, Normal air movement Cardiovascular: Regular rate/rhythm, Normal S1 S2, No murmurs Gastrointestinal: Normal bowel sounds, Soft and benign, Non-distended, No tenderness Musculoskeletal: No tenderness Integumentary: No rashes Neurological: Normal speech, Normal tone, Normal affect Lymphatics: No axilla or inguinal lymphadenopathy - Studies Medications List Reviewed: Yes Assessment & Plan - Problems (Diagnosis) (1) Unstable angina Status: Acute (2) Chest pain, rule out acute myocardial infarction Status: Acute (3) Near syncope Status: Acute (4) DJD (degenerative joint disease) Onset Date: 04/12/16 Status: Chronic Qualifiers: (5) Diabetes mellitus Onset Date: 03/15/17 Status: Chronic (6) Hypertensive disorder, systemic arterial Status: Chronic (7) Rheumatoid arthritis RA Onset Date: 03/15/17 Status: Chronic (8) Obstructive sleep apnea Status: Suspected (9) Hypertensive urgency Onset Date: 03/15/17 Status: Resolved - Plan 1. Troponins have been negative. Patient did not have a myocardial infarction but stress test as mentioned below was positive. 2. Cardiology consultation for positive stress test; cardiac catheterization today 3. Stress test revealed perfusion abnormality 4. Anti-platelet therapy, anti coagulation, beta-renaldo, statin, and O2 as needed 5. IV morphine for pain 6. Nitro p.r.n. 7. Outpatient GI workup for esophageal strictures 8. GI and DVT prophylaxis Discharge Plan: Home Plan to discharge in: 48 Hours - Advance Directives Does patient have a Living Will: No Does patient have a Durable POA for Healthcare: No - Code Status/Comfort Care Code Status: Full Code Critical Care: No Time Spent Managing PTS Care (In Minutes): 35
--- NOTE | 2020-02-28 08:47 | P.DS ---
Discharge Date: 02/28/20 Disposition: ROUTINE DISCHARGE Discharge Condition: GOOD Reason for Admission: Chest pain rule out acute coronary syndrome/near syncope - Problems (1) Unstable angina Status: Acute (2) Chest pain, rule out acute myocardial infarction Status: Acute (3) Near syncope Status: Acute (4) DJD (degenerative joint disease) Onset Date: 04/12/16 Status: Chronic Qualifiers: (5) Diabetes mellitus Onset Date: 03/15/17 Status: Chronic (6) Hypertensive disorder, systemic arterial Status: Chronic (7) Rheumatoid arthritis RA Onset Date: 03/15/17 Status: Chronic (8) Obstructive sleep apnea Status: Suspected (9) Hypertensive urgency Onset Date: 03/15/17 Status: Resolved Brief History of Present Illness: Patient is a 59-year-old female came to the hospital after having chest pain and a near syncopal event. Patient been having some discomfort in the sternal region. She said she felt the chest pain going towards the right side. She says she started drifting towards the right side in almost passed out. She has not been eating well either. She feels like she has some esophageal issues which is related to her lap band surgery. She also has a family history of her father passing away in his 40s of heart disease. She say she had a stress test about 5-6 years ago that did not reveal any abnormality. At this time, will ad quirino her to the hospital to be ruled out for acute coronary syndrome. If her chest pain is persistent will go ahead and start her on anti coagulation and get a stress test. Otherwise will do an echocardiogram and carotid Doppler and serial troponins and EKG. Hospital Course: Patient had a positive stress test so we went ahead and proceeded with cardiology consultation and cardiac catheterization was performed. Patient was found to have a jovgj-yg-[id number] LAD stenosis. Patient also had severe med to distal RCA stenosis and had stent placement. At this time patient is stable for discharge on antiplatelet therapy including Plavix and statin therapy. Continue outpatient follow up with cardiology in 1-2 weeks. Return to the emergency room or symptoms worsen. Vital Signs/Physical Exam: Temp Pulse Resp BP Pulse Ox 97.8 F 77 18 117/56 L 95 02/28/20 08:42 02/28/20 08:42 02/28/20 08:42 02/28/20 08:42 02/28/20 08:42 General: Alert, In no apparent distress, Oriented x3 Laboratory Data at Discharge: WBC 6.8 K/uL (4.3-10.9) 02/26/20 03:53 Hgb 12.1 g/dL (12.0-15.0) 02/26/20 03:53 Hct 34.5 % (36.0-45.0) L 02/26/20 03:53 Plt Count 231 K/uL (152-406) 02/26/20 03:53 PT 11.5 SECONDS (9.5-12.5) 02/25/20 08:20 INR 0.97 02/25/20 08:20 Sodium 143 mmol/L (136-145) 02/26/20 03:53 Potassium 4.2 mmol/L (3.5-5.1) 02/26/20 03:53 BUN 17 mg/dL (7-18) 02/26/20 03:53 Creatinine 1.07 mg/dL (0.55-1.3) 02/26/20 03:53 Glucose 104 mg/dL (74-106) 02/26/20 03:53 Magnesium 1.9 mg/dL (1.8-2.4) 02/25/20 08:20 Total Bilirubin 0.3 mg/dL (0.2-1.0) 02/26/20 03:53 AST 18 U/L (15-37) 02/26/20 03:53 ALT 19 U/L (12-78) 02/26/20 03:53 Alkaline Phosphatase 96 U/L (45-117) 02/26/20 03:53 Troponin I < 0.02 ng/mL (0.0-0.045) 02/25/20 21:48 Lipase 117 U/L (73-393) 02/25/20 08:20 Home Medications: Folic Acid 1 tab PO DAILY 02/25/20 Gabapentin [Neurontin] 1 tab PO BID 02/25/20 Insulin Aspart [Novolog] See Protocol SQ ACHS 02/25/20 Insulin Glargine Human [Lantus*] 26 units SQ BREAKFAST 02/25/20 Liraglutide [Victoza 2-Zan] 6 units SQ BEDTIME 02/25/20 Losartan Potassium [Cozaar] 1 tab PO DAILY 02/25/20 Methotrexate Sodium [Methotrexate] 1 tab PO SEECOM 02/25/20 Tofacitinib Citrate [Xeljanz Xr] 1 tab PO DAILY 02/25/20 Vitamin D [Drisdol*] 1 cap PO SEECOM 02/25/20 Aspirin [Aspirin EC 81 MG] 162 mg PO DAILY #60 tablet. 02/28/20 Atorvastatin Calcium [Lipitor] 40 mg PO BEDTIME #30 tab 02/28/20 Clopidogrel Bisulfate [Plavix*] 75 mg PO DAILY #30 tablet 02/28/20 Vitamin D [Drisdol*] 50,000 unit PO Q7D@0900 #10 cap 02/28/20 New Medications: Aspirin [Aspirin EC 81 MG] 162 mg PO DAILY #60 tablet. Vitamin D [Drisdol*] 50,000 unit PO Q7D@0900 #10 cap Atorvastatin Calcium [Lipitor] 40 mg PO BEDTIME #30 tab Clopidogrel Bisulfate [Plavix*] 75 mg PO DAILY #30 tablet Patient Discharge Instructions: OK TO DC IV AND DC HOME. FOLLOW-UP WITH PRIMARY CARE PROVIDER IN 1-2 WEEKS. FOLLOW-UP WITH CARDIOLOGY IN 1-2 WEEKS. FOLLOW UP WITH GASTROENTEROLOGY IN 1-2 WEEKS. RETURN TO THE ER IF SYMPTOMS WORSEN. CALL or TEXT DR. PAINTER AT [phone] IF ANY QUESTIONS REGARDING HOSPITAL STAY. PLEASE CALL THE FLOOR AT [phone] IF ANY MEDICATION OR NURSING QUESTIONS. Diet: AHA Activity: Fall precautions Followup: Tarun Edward MD [ACTIVE - CAN ADMIT] - 1-2 Weeks (Call to make an appointment. ) Christiano Gregory MD [ASSOCIATE-ACTIVE - CAN ADMIT] - Unknown,U [Primary Care Provider] - Time spent managing pt's care (in minutes): 35
[2020-02-28 08:55] VITALS: O2SAT 98
--- NOTE | 2020-02-29 03:02 | CON ---
Reason For Consultation: Chest pain and positive stress test. History Of Present Illness: Ms. Martinez is a 59-year-old woman without any previous cardiac history, has multiple cardiac risk factors including obesity, diabetes, and hypertension. She also has a hist ory of rheumatoid arthritis, came in with substernal chest pressure radiating to both arms with short ness of breath, nausea and diaphoresis, and hypertension. She was found to have a negative EKG and n egative troponin. However, stress test was suggestive of inferoapical ischemia and I was consulted. Patient denied any PND, orthopnea, pedal edema, palpitation, or syncope, but she did get very dizzy and almost passed out. Allergies: SHE IS ALLERGIC TO IODINE CONTRAST MEDIA. Medications: At home include insulin. She also takes Xeljanz for rheumatoid arthritis and losartan. Review of Systems: Negative. Social History: Negative. Family History: Positive for heart disease. Physical Examination: Vital Signs: Stable. She was afebrile. HEENT: Negative. Neck: Supple. No bruit. Chest: Clear to auscultation and percussion. Cardiac: Revealed a regular rhythm and rate. No murmurs, gallops, or rubs. Abdomen: Obese, but benign. Extremities: Revealed no clubbing, cyanosis, or edema. Diagnostic Data: Her glucose was 184. The rest of her blood work was fairly unremarkable. Impression And Plan: Patient with classic symptoms for acute coronary syndrome. She had a positive stress test. She has diabetes, hypertension, dyslipidemia, obesity, rheumatoid arthritis. We will p jyothi to do a heart catheterization on 02/27/2020. Patient understands the risk and the benefits of th e procedure and she agrees to proceed. Continue present regimen. I would like to note that an echoc ardiogram that was done was normal. She also had a carotid artery Doppler that showed a 50% stenosis in the right internal carotid artery. This will need to be followed as an outpatient as well. MARJORIE/EVI Voice ID: [id number] Report ID: [id number]
--- NOTE | 2020-02-29 03:08 | PN ---
Date of Progress Note: 02/28/2020 Ms. Martinez had come in on 02/25/2020, for unstable angina and presyncope. Had a normal echo, 50% car otid stenosis on the right. Catheterization was done on 02/27/2020. She underwent an RCA stent by Lizeth Mcdonald. Had small coronaries in general with diffuse plaquing. Overnight, she has done well. Sh e has no complication from the procedure. She has no chest pain. Vital signs are stable. She was a febrile. Her right wrist entry site from the catheterization is intact without any hematoma. She hernandez d good radial pulses. Good femoral pulses. We will plan to discharge her today. She needs to be on aspirin, Plavix, statin, low-dose beta-renaldo in addition to her losartan and her insulin. She can go home today. We will see her in the office in the near future. She will need her carotid stenosi s followed on a yearly basis and probably have a stress test in about 1 year. Case was discussed tamika Kirkland. MARJORIE/EVI Voice ID: [id number] Report ID: [id number]
[2020-03-04 16:21] VITALS: BP 117/56
== END 2020-02-28 09:41 | disposition home or self-care (01) | DRG 246 ==
LOC: ER 07:53 → ERHOLD 11:20 → 2ND 12:07 → OBSVTOIN 02-26 12:20
PROVIDERS: ADMIT Hospitalist; ATTEND Hospitalist
PROC: 027034Z Dilation of Coronary Artery, One Artery with Drug-eluting Intraluminal Device, Percutaneous Approach (ICD-10-PCS; principal; 2020-02-27)
PROC: 4A023N7 Measurement of Cardiac Sampling and Pressure, Left Heart, Percutaneous Approach (ICD-10-PCS; 2020-02-27)
PROC: B2111ZZ Fluoroscopy of Multiple Coronary Arteries using Low Osmolar Contrast (ICD-10-PCS; 2020-02-27)
DX: I21.4 Non-ST elevation (NSTEMI) myocardial infarction (principal); J18.0 Bronchopneumonia, unspecified organism; I10 Essential (primary) hypertension; E11.9 Type 2 diabetes mellitus without complications; M06.9 Rheumatoid arthritis, unspecified; G47.33 Obstructive sleep apnea (adult) (pediatric); M19.90 Unspecified osteoarthritis, unspecified site; I99.8 Other disorder of circulatory system; I16.0 Hypertensive urgency; I20.0 Unstable angina; Z91.14 Patient's other noncompliance with medication regimen; Z91.041 Radiographic dye allergy status; Z79.4 Long term (current) use of insulin; Z79.899 Other long term (current) drug therapy; Z96.651 Presence of right artificial knee joint; Z90.49 Acquired absence of other specified parts of digestive tract; Z20.828 Contact with and (suspected) exposure to other viral communicable diseases
CPT/HCPCS: 36415; 71045; 78452; 80048; 80053; 80076; 82947; 83690; 83735; 83880; 84484; 85025; 85347; 85610; 92928; 93005; 93017; 93306; 93458; 93880; 96372; 96374; 96375; 99285; A9500; C1725; C1760; C1893; C9113; J0171; J0360; J1200; J1644; J1650; J1720; J1815; J2250; J2270; J2405; J2785; J2930; J3010; J7030; J7512; U0002

== ENCOUNTER 2020-03-04 17:15 | Inpatient (IN) | payer BC, OTHER ==
--- OUTSIDE RECORDS SUMMARY | 2020-03-04 17:17 | XMS REPORT | Clinical Summary ---
:1960 Author Organization [facility] Address [address] [place] [address] Care Team Providers Name Role Phone Pcp, Primary Care Provider Unavailable Allergies Active Allergy [...] VACCINE (#1) 2019 Results Not on fileafter 03/04/2019 Insurance Payer Benefit Subscriber ID Effective Phone Address Type Plan / Dates Group BLUE BCBS OS [id number] 2018-Pres [phone] P[address] CROSS/BLUE POS/PPO/EPO ent [id number] [place] [address] MEDICAID - [facility] COMM [id number] 2018-Pres Med icaid MEDICAID MGD STAR PLAN ent [facility] Advance Directives For more information, please contact: [phone] Code Status Date Activated Date Inactivated Comments Full Code 10/15/2018 4:27 PM 10/18/2018 2:04 AM This code status was determined by: Patient
--- OUTSIDE RECORDS SUMMARY | 2020-03-04 17:18 | XMS REPORT | Summary of Care ---
:1960 Author Organization [facility] Address [address] [place] [id number] Care Team Providers Name Role Phone Christiano Núñez Primary Care Provider Reason for Visit Reason Comments Cataract Diabetic Eye Exam DIABETIC MACULAR EDEMA Dry Eye Encounter Details Date Type Department Care Team Description 03/03/2020 Office Visit [facility]- Mary Oates iferative diabetic retinopathy of both eyes with macular edema associated with type 2 diabetes mellitus (Primary Dx); [place] Shahnaz Frederick MD Senile nuclear sclerosis, bilateral; [facility] Hypertensive retinopathy of both eyes; [facility], [id number] Long-term use of Plaquenil; Entrance [place], [place] [phone] Allergies Active Allergy Reactions Severity Noted Date Comments Iodine And Iodide Containing Products Rash 01/2016 documented as of this encounter (statuses as of 03/03/2020) Medications Medication Sig Dispensed Refills Start Date [...] 02/27/2019 Active XR) 11 mg mouth daily. [id number]: Rheumatoid arthritis, seropositive, Therapeutic drug monitoring TRAMADOL 50 mg TAKE 1 TABLET BY 120 tablet 0 05/13/2019 Active tabletIndications: MOUTH UP TO FOUR Rheumatoid arthritis, TIMES DAILY seropositive NEEDED FOR PAIN documented as of this encounter (statuses as of 03/03/2020) Active Problems Problem Noted Date Proliferative diabetic retinopathy of both eyes with m acular edema 01/21/2019 associated with type 2 diabetes mellitus Overview: Added automatically from request for akshat juvencio [id number] NSVT (nonsustained ventricular tachycardia) 05/19/2017 Total knee [...] of hand 11/07/2012 Overview: ICD10 Diagnosis Term Rate Clerk Utility Diabetic peripheral neuropathy 11/06/2012 Diabetes mellitus type 2, uncontrolled, without compli cations 01/13/2012 Overview: ICD10 Diagnosis Term Rate Clerk Utility Obesity 01/13/2012 Overview: ICD10 Diagnosis Term Rate Clerk Utility HLD (hyperlipidemia) 01/13/2012 Overview: ICD10 Diagnosis Term Rate Clerk Utility Elevated BP 01/13/2012 Mild vitamin D deficiency 01/13/2012 Steroid long-term use 01/13/2012 Encounter for long-term (current) use of other medicat ions 07/19/2011 Raynaud's syndrome 07/28/2009 Rheumatoid arthritis 07/28/2009 Overview: ICD10 Diagnosis Term Rate Clerk Utility Encounter for long-term (current) use of steroids 07/11 Chronic pain syndrome 07/28/2009 documented as of this encounter (statuses as of 03/03/2020) Immunizations Name Administration Dates Next Due Zoster Vaccine Recombinant 03/25/2019, 01/18/2019 documented as of this encounter Social History Tobacco Use Types Packs/Day Years Used Date Never Smoker Smokeless Tobacco: Never Used Alcohol Use Drinks/Week oz/Week Comments No Sex Assigned at Date Recorded Not on file COVID-19 Exposure Response Date Recorded In the last month, have you been in contact with No / Unsure 03/03/2020 9:54 AM ECONOMICS INSTRUCTOR someone who was confirmed or suspected to have Coronavirus / COVID-19? documented as of this encounter Last Filed Vital Signs Not on filedocumented in this encounter Progress Notes Shahnaz Oates MD - 03/03/2020 10:00 AM CST Cc: Cataract, Diabetic Eye Exam, DIABETIC MACULAR EDEMA, and Dry Eye HPI: Tamy Martinez is a 59 year old female w/ hx of PDR/ DME lost to follow up with Retina service. Pt has noted worsening vision in both eyes. No eye pain or discomfort. No new floaters or photopsias. Past Medical History: Diagnosis Date Anemia Autoimmune disorder DM (diabetes mellitus) GERD (gastroesophageal reflux disease) HTN (hypertension) Osteoarthrosis, unspecified whether generalized or localized, lower leg RA (rheumatoid arthritis) Seropositive, erosive with RF of 265 and CCP titer of 71 Right knee pain 08/05/2015 Urinary incontinence occasional stress incont Vitreous hemorrhage of left eye Review of Systems Reviewed ROS done by the digital field service technician during this encounter and there are no changes. Assessment ICD-10-CM ICD-9-CM 1. Proliferative diabetic retinopathy of both eyes with macular edema associated with type 2 diabetes mellitus E11.3513 250.50 362.07 362.02 2. Senile nuclear sclerosis, bilateral H25.13 366.16 3. Hypertensive retinopathy of both eyes H35.033 362.11 4. Long-term use of Plaquenil Z79.899 V58.69 5. Dry eyes, bilateral H04.123 375.15 6. Keratitis sicca, bilateral M35.01 370.8 7. Refractive error H52.7 367.9 07/22/2015 FA delay in starting the timer, no macular or peripheral ischemia was noted, FINISH OPENER OCT no definite fluid in both eyes 03/08/2016 OCT Trace IRF not affecting the fovea OU 01/21/2019 OCT OD: tr IRF involving the fovea OS: perifoveal IRF not involving the fovea Plan` 1. Diabetic macular edema of both eyes - s/p Avastin X2 OD, but then lost to follow up. Will reschedule follow up with Retina service POCT HBA1C (%) Date Value 01/13/2012 11.0 (A) HGB A1C (% NGSP) Date Value 05/16/2017 8.8 (H) 2. Proliferative diabetic retinopathy of both eyes - s/p PRP OU -follow up with Retina service n/a 3. Hypertensive Retinopathy, both eyes - NFL heme, IRH and CWS on exam - BP control recommended 4. Senile nuclear sclerosis, bilateral - visually significant -plan CE once DME improved 5. Long-term use of Plaquenil - Has been off the plaquenil since 2 years ago 6. Refractive error -M=RX OMICS INSTRUCTOR Matilde Tyler - 03/03/2020 10:00 AM CSTSpectralis OCT mac OU Matilde Tyler 03/03/2020 10:45 AM OMICS INSTRUCTOR documented in this encounter Plan of Treatment Date Type Specialty Care Team Description 03/09/2020 Office Visit Ophthalmology Carmelina Chaidez M D [address] [place] [address] [phone] Health Maintenance Due Date Last Done Comments PNEUMOCOCCAL 0-64 YEARS COMBINED 1968 SERIES (1 of 3 - PCV13) URINE MICROALBUMIN 1972 FOOT EXAM 1980 DTaP,Tdap,and Td Vaccines (1 - 1981 Tdap) COLON CANCER SCREENING ANNUAL 2012 FIT/FOBT COLON CANCER SCREENING FIT DNA 2012 EVERY 3 YEARS COLON CANCER SCREENING 2012 SIGMOIDOSCOPY EVERY 5 YEARS COLONOSCOPY 2012 Colorectal Cancer Screening 2012 HgA1C 11/16/2017 05/16/2017, 01/13/2012 Breast Cancer Screening 02/01/2018 02/01/2017 (MAMMOGRAM) INFLUENZA VACCINE (#1) 2019 PAP SMEAR 01/27/2020 01/26/2017 EYE EXAM 02/28/2020 02/27/2019, 02/19/2019, 02/05/2019, Additional history exists CREATININE (SERUM) 05/20/2020 05/21/2019, 02/28/2019, 02/27/2019, Additional history exists Depression Screening 05/20/2020 05/21/2019 LDL-C 05/20/2020 05/21/2019, 02/27/2019, 01/15/2019, Additional history exists HEPATITIS C (HCV) SCREEN Completed 02/27/2019, 12/27/2018, 12/27/2016, Additional history exists Zoster Recombinant Vaccine Completed 03/25/2019, 9 (SHINGRIX) documented as of this encounter Implants Implanted Type Area [employer] Member Device Shelf Model / Identifier Expiration Date Ser ial / Lot [employer] CEMENT Right: Biomet 05/13 [id number] / Implanted: Qty: 1 on 05/15/2017 by Rex Argueta MD at [facility] Knee 8 [id number] / [id number] Ps Open Box Femoral-Right KNEE Right: Biomet 04/2026 [id number] / Implanted: Qty: 1 on 05/15/2017 by Rex Argueta MD at [facility] Knee J [id number] / [id number] Adc Plate Tibial Cruciate 67 Mm - [id number] PLATE Right: Biomet 01/16/2027 [id number] / Implanted: Qty: 1 on 05/15/2017 by Rex Argueta MD at [facility] Knee J [id number] / [id number] Adc Patella 31 X 8 Mm - [id number] Right: Biomet 12/31/2021 [id number] / Implanted: Qty: 1 on 05/15/2017 by Rex Argueta MD at [facility] Knee 6 [id number] / [id number] Bearing Tib 10 X 63/67 Mm #[id number] - [id number] Right: Biomet 01/24/2022 [id number] / Implanted: Qty: 1 on 05/15/2017 by Rex Argueta MD at [facility] Knee 7 [id number] / [id number] documented as of this encounter Results Not on filedocumented in this encounter Visit Diagnoses Diagnosis Proliferative diabetic retinopathy of yelena th eyes with macular edema associated with type 2 diabetes mellitus - Primary Senile nuclear sclerosis, bilateral Hypertensive retinopathy of both eyes Hypertensive retinopathy Long-term use of Plaquenil Refractive error Unspecified disorder of refraction and a ccommodation documented in this encounter Insurance Payer Benefit Plan Subscriber ID Effective Phone Address Typ e / Group Dates [facility] BCBS OF [id number] 2012-Pres [phone] PPO/POS [place] - OUT ent [id number] [place] [address] [facility] [id number] 2018-Aurelio Medic aid HEALTHCARE COMM STAR PLUS nt PLAN - MANAGED MEDICAID documented as of this encounter
--- OUTSIDE RECORDS SUMMARY | 2020-03-04 17:18 | XMS REPORT | Continuity of Care Document ---
:1960 [facility] t Address [address] [place] [address] Care Team Providers Name Role Phone Pcp Primary Care Physician Unavailable Иван RYAN, E Attending Clinician Reggie ZELAYA Attending Clinician Unavailable [...] [facility] Contrast adverse 00:00: Medical Media reaction 00 Center s Iodine Propensi Active Rash Other [facility] 5-11 reaction( [facility] - Iodide adverse 00:00: s): Medical Containi reaction 00 Itching Cente r ng s and Products swelling Family History Family Member Diagnosis Comments Start Date Stop Date Source Natural father Heart disease [facility] Natural mother Cancer [facility] Social History Social Habit Start Date Stop Date Quantity Comments Source History SDOH [facility] Std Drinks [facility]ica [facility] Center History SDPR [facility] Alcohol Binge Medical Jean ter Sex Assigned [facility] Tobacco use and 2018-10-15 2018-10-[address] [facility] - exposure 00:00:00 00:00:00 Medical Center Alcohol intake 2018-10-15 2018-10-[address] [facility] - 00:00:00 00:00:00 non-drinker of Medical Ce nter alcohol (finding) History SDOH 2018-10-15 2018-10-[address] [facility] Alcohol Frequency 00:00:00 00:00:00 [facility] Smoking Status Start Date Stop Date Source Never smoker [facility] Medications Ordered [...] [facility] - Test 00:00:00 measurement [facility] (procedure) [code = 85821705] Future Scheduled [address] [facility] - Test 00:00:00 (procedure) [code = Medical Center 99959600] Future Scheduled [address] [facility] - Test 00:00:00 malignant neoplasm of [facility] cervix (procedure) [code = 611760048] Future Scheduled 1972 DIABETIC EYE EXAM [facility] Test 00:00:00 [code = DIABETIC EYE [facility] EXAM] Future Scheduled [address] [facility] - Test 00:00:00 examination Medical Center (regime/therapy) [code = 169509467] Future Scheduled 1972 Urine screening for [facility] - Test 00:00:00 protein (procedure) Medical Center [code = 744844944] Future Scheduled [address] [facility] - Test 00:00:00 0-64 YRS (1 of 1 - Medical C enter PPSV23) [code = PNEUMOCOCCAL VACCINE 0-64 YRS (1 of 1 - PPSV23)] Future Scheduled [address] [facility] - Test 00:00:00 [facility] breast (procedure) [code = 998538257] Future Scheduled [address] [facility] - Test 00:00:00 [facility] of [facility] colon (procedure) [code = 857113644] Encounters Start End Encounter Admission Attending Care Care Encounter Source Date/Time Date/Time Type Type Clinicians Facility Department ID 2020-03-03 2020-03-03 Office [facility] [id number] 09:55:25 11:39:09 Visit Shahnaz ELLER [id number] IALTY [id number] NAVARRO [id number] AND PEREZ [facility] Results Test Description Test Time Test Comments Results Result Comments Source POCT-GLUCOSE METER 2018-10-17 21:54:00 Test Item Value Reference Range Interpretation Comme nts POC-GLUCOSE METER (Admatic) (test 194 mg/dL 70-110 H TESTED AT [facility] [address] [facility] code = 1538) [facility] 7703 0 POCT-GLUCOSE [id number] 16:50:00 Test Item Value Reference Range Interpretation Comments POC-GLUCOSE METER 134 mg/dL 70-110 H TESTED AT [facility] 6720 (Admatic) (test code = JENIFER Lemons [facility] 1538) [address] POCT-GLUCOSE [id number] 12:10:00 Test Item Value Reference Range Interpretation Comments POC-GLUCOSE METER 155 mg/dL 70-110 H TESTED AT [facility] 6720 (Admatic) (test code = JENIFER Lemons [facility] 1538) [address] POCT-GLUCOSE [id number] 05:34:00 Test Item Value Reference Range Interpretation Comments POC-GLUCOSE METER 249 mg/dL 70-110 H TESTED AT [place] [address] ([facility]) (test code = JENIFER Lemons [facility] 1538) [address] POCT-GLUCOSE [id number] 00:09:00 Test Item Value Reference Range Interpretation Comments POC-GLUCOSE METER 236 mg/dL 70-110 H TESTED AT [place] [address] ([facility]) (test code = JENIFER Lemons [facility] 1538) [address] POCT-GLUCOSE [id number] 21:17:00 Test Item Value Reference Range Interpretation Comments POC-GLUCOSE METER 153 mg/dL 70-110 H TESTED AT [place] [address] ([facility]) (test code = JENIFER Lemons [facility] 1538) [address] POCT-GLUCOSE [id number] 18:23:00 Test Item Value Reference Range Interpretation Comments POC-GLUCOSE METER 148 mg/dL 70-110 H TESTED AT [place] [address] ([facility]) (test code = JENIFER Lemons [facility] 1538) [address] FL, UGI, WITHOUT [id number] 17:33:00Reason for exam:->Please evaluate with thin barium [...] MDReport Verified Date/Time: 10/16/2018 17:33:25 Reading Location: [facility] C013X [facility] Consult Reading Room -GLUCOSE [id number] 05:59:00 Test Item Value Reference Range Interpretation Comments POC-GLUCOSE METER 192 mg/dL 70-110 H TESTED AT [place] [address] ([facility]) (test code = JENIFER Lemons [facility] 1538) [address] POCT-GLUCOSE [id number] 00:39:00 Test Item Value Reference Range Interpretation Comments POC-GLUCOSE METER 172 mg/dL 70-110 H TESTED AT [facility] 6720 (BEJANNA) (test code = JENIFER Lemons [facility] 1538) [address]47 POCT-GLUCOSE [id number] 22:13:00 Test Item Value Reference Range Interpretation Comments POC-GLUCOSE METER 187 mg/dL 70-110 H TESTED AT [facility] 6720 (BEAKER) (test code = JENIFER Lemons [facility] 1538) [address]83 RAD, CHEST, 1 VIEW, NON [id number] 18:59:00Reason for exam:->preopShould this be performed at [...] congestion. No acute bonyabnormality. Signed: Chan Olson [facility] Verified Date/Time: 10/15/2018 18:59:09 Reading Location: [place] [address] C0W Consult Reading Room [facility] METABOLIC [id number] 18:46:00 Test Item Value Reference Range Interpretation [...] NOT APPLICABLE FOR DIALYSIS PATIEN TS. HEMOGLOBIN [id number] 18:36:00 Test Item Value Reference Range Interpretation Comments HEMOGLOBIN A1C (BEAKER) (test code = 9.7 % 4.3-6.1 H 368) POCT-GLUCOSE [id number] 18:14:00 Test Item Value Reference Range Interpretation Comments POC-GLUCOSE METER 207 mg/dL 70-110 H TESTED AT [facility] 6720 (BEAKER) (test code = ALEXANDROAMALIA Cristo [place] 1538) [address] CBC W/PLT COUNT & AUTO [id number] 18:13:00 Test Item Value Reference Range Interpretation [...] % 0-1 PERCENT (BEAKER) (test code = 5181)
--- OUTSIDE RECORDS SUMMARY | 2020-03-04 17:18 | XMS REPORT | Summary of Care ---
:1960 Author Organization [facility] Address [address] [place] [address] Care Team Providers Name Role Phone Christiano Núñez Primary Care Provider Reason for Visit Reason Comments Cataract Diabetic Eye Exam DIABETIC MACULAR EDEMA Dry Eye Encounter Details Date Type Department Care Team Description 03/03/2020 Office Visit [facility]- Mary Oates iferative diabetic retinopathy of both eyes with macular edema associated with type 2 diabetes mellitus (Primary Dx); [place] Shahnaz Frederick MD Senile nuclear sclerosis, bilateral; [facility] [address] [facility] Hypertensive retinopathy of both eyes; [facility] [place], [id number] Long-term use of Plaquenil; Entrance B [place], [place] [phone] Allergies Active Allergy Reactions Severity Noted [...] 02/27/2019 Active XR) 11 mg mouth daily. [id number]: Rheumatoid arthritis, seropositive, Therapeutic drug monitoring TRAMADOL [...] Added automatically from request for akshat juvencio [id number] NSVT (nonsustained ventricular tachycardia) 05/19/2017 Total knee [...] of hand 11/07/2012 Overview: ICD10 Diagnosis Term Freight Tallier Utility Diabetic peripheral neuropathy 11/06/2012 Diabetes mellitus type 2, uncontrolled, without compli cations 01/13/2012 Overview: ICD10 Diagnosis Term Freight Tallier Utility Obesity 01/13/2012 Overview: ICD10 Diagnosis Term Freight Tallier Utility HLD (hyperlipidemia) 01/13/2012 Overview: ICD10 Diagnosis Term Freight Tallier Utility Elevated BP 01/13/2012 Mild vitamin D deficiency 01/13/2012 Steroid long-term use 01/13/2012 Encounter for long-term (current) use of other medicat ions 07/19/2011 Raynaud's syndrome 07/28/2009 Rheumatoid arthritis 07/28/2009 Overview: ICD10 Diagnosis Term Freight Tallier Utility Encounter for long-term (current) use of [...] with No / Unsure 03/03/2020 9:54 AM DISTILLATION OPERATOR someone who was confirmed or suspected to [...] of Systems Reviewed ROS done by the oil well fishing tool technician during this encounter and there are [...] no macular or peripheral ischemia was noted, KEYPUNCH OPERATOR OCT no definite fluid in both eyes [...] 2 years ago 6. Refractive error -M=RX ILLATION OPERATOR Matilde Tyler - 03/03/2020 10:00 AM CSTSpectralis OCT mac OU Matilde Tyler 03/03/2020 10:45 AM ILLATION OPERATOR documented in this encounter Plan of Treatment Date Type Specialty Care Team Description 03/09/2020 Office Visit Ophthalmology Carmelina Chaidez M D [address] [place] [address] [phone] Health Maintenance Due Date Last Done [...] of this encounter Implants Implanted Type Area Inspector Set Up And Lay Out Device Shelf Model / Identifier Expiration Date Ser ial / Lot Palacos R & G Bone Cement CEMENT Right: Biomet 05/13 [id number] / Implanted: Qty: 1 on 05/15/2017 by Rex Argueta MD at [facility] Knee 8 [id number] / [id number] Ps Open Box Femoral-Right KNEE Right: Biomet 04/2026 [id number] / Implanted: Qty: 1 on 05/15/2017 by Rex Argueta MD at [facility] Knee J [id number] / [id number] Adc Plate Tibial Cruciate 67 Mm - [id number] PLATE Right: Biomet 01/16/2027 [id number] / Implanted: Qty: 1 on 05/15/2017 by Rex Argueta MD at [facility] Knee J [id number] / [id number] Adc Patella 31 X 8 Mm - [id number] Right: Biomet 12/31/2021 [id number] / Implanted: Qty: 1 on 05/15/2017 by Rex Argueta MD at [facility] Knee 6 [id number] / [id number] Bearing Tib 10 X 63/67 Mm #[id number] - [id number] Right: Biomet 01/24/2022 [id number] / Implanted: Qty: 1 on 05/15/2017 by Rex Argueta MD at [facility] Knee 7 [id number] / [id number] documented as of this encounter Results Not [...] Phone Address Typ e / Group Dates [facility] BCBS OF [id number] 2012-Pres [phone] [address] PPO/POS [place] - OUT ent [phone] [id number] [place] [address] [facility] [id number] 2018-Aurelio Medic aid HEALTHCARE COMM STAR PLUS nt PLAN - MANAGED MEDICAID documented as of this encounter
--- OUTSIDE RECORDS SUMMARY | 2020-03-04 17:18 | XMS REPORT | Summary of Care ---
:1960 Author Organization [facility] - [facility] Address [address] [place] [address] Care Team Providers Name Role Phone Christiano Núñez Primary Care Provider Reason for Visit Reason Comments Cataract Diabetic Eye Exam DIABETIC MACULAR EDEMA Dry Eye Encounter Details Date Type Department Care Team Description 03/03/2020 Office Visit [facility]- Mary Oates iferative diabetic retinopathy of both eyes with macular edema associated with type 2 diabetes mellitus (Primary Dx); [place] Shahnaz Frederick MD Senile nuclear sclerosis, bilateral; [facility] [address] [facility] Hypertensive retinopathy of both eyes; [facility], [id number] Long-term use of Plaquenil; Entrance B [place], [place] [phone] Allergies Active Allergy Reactions Severity Noted [...] 02/27/2019 Active XR) 11 mg mouth daily. [id number]: Rheumatoid arthritis, seropositive, Therapeutic drug monitoring TRAMADOL [...] Added automatically from request for akshat juvencio [id number] NSVT (nonsustained ventricular tachycardia) 05/19/2017 Total knee [...] of hand 11/07/2012 Overview: ICD10 Diagnosis Term Research Soil Scientist Utility Diabetic peripheral neuropathy 11/06/2012 Diabetes mellitus type 2, uncontrolled, without compli cations 01/13/2012 Overview: ICD10 Diagnosis Term Research Soil Scientist Utility Obesity 01/13/2012 Overview: ICD10 Diagnosis Term Research Soil Scientist Utility HLD (hyperlipidemia) 01/13/2012 Overview: ICD10 Diagnosis Term Research Soil Scientist Utility Elevated BP 01/13/2012 Mild vitamin D deficiency 01/13/2012 Steroid long-term use 01/13/2012 Encounter for long-term (current) use of other medicat ions 07/19/2011 Raynaud's syndrome 07/28/2009 Rheumatoid arthritis 07/28/2009 Overview: ICD10 Diagnosis Term Research Soil Scientist Utility Encounter for long-term (current) use of [...] with No / Unsure 03/03/2020 9:54 AM CERAMIC MAKER DEMONSTRATOR someone who was confirmed or suspected to [...] of Systems Reviewed ROS done by the poured concrete wall technician during this encounter and there are [...] no macular or peripheral ischemia was noted, INVENTORY CONTROLLER OCT no definite fluid in both eyes [...] 2 years ago 6. Refractive error -M=RX MIC MAKER DEMONSTRATOR Matilde Tyler - 03/03/2020 10:00 AM CSTSpectralis OCT mac OU Matilde Tyler 03/03/2020 10:45 AM MIC MAKER DEMONSTRATOR documented in this encounter Plan of Treatment Date Type Specialty Care Team Description 03/09/2020 Office Visit Ophthalmology Carmelina Chaidez M D [address] [place] [address] [phone] Health Maintenance Due Date Last Done [...] of this encounter Implants Implanted Type Area Metal Tile Setter Device Shelf Model / Identifier Expiration Date Ser ial / Lot Palacos R & G Bone Cement CEMENT Right: Biomet 05/13 [id number] / Implanted: Qty: 1 on 05/15/2017 by Rex Argueta MD at [facility] Knee 8 [id number] / [id number] Ps Open Box Femoral-Right KNEE Right: Biomet 04/2026 [id number] / Implanted: Qty: 1 on 05/15/2017 by Rex Argueta MD at [facility] Knee J [id number] / [id number] Adc Plate Tibial Cruciate 67 Mm - [id number] PLATE Right: Biomet 01/16/2027 [id number] / Implanted: Qty: 1 on 05/15/2017 by Rex Argueta MD at [facility] Knee J [id number] / [id number] Adc Patella 31 X 8 Mm - [id number] Right: Biomet 12/31/2021 [id number] / Implanted: Qty: 1 on 05/15/2017 by Rex Argeuta MD at [facility] Knee 6 [id number] / [id number] Bearing Tib 10 X 63/67 Mm #[id number] - [id number] Right: Biomet 01/24/2022 [id number] / Implanted: Qty: 1 on 05/15/2017 by Rex Argueta MD at [facility] Knee 7 [id number] / [id number] documented as of this encounter Results Not [...] Phone Address Typ e / Group Dates [facility] BCBS OF [id number] 2012-Pres [phone] [address] PPO/POS [place] - OUT ent [phone] [id number] [place] [address] [facility] [id number] 2018-Aurelio Medic aid HEALTHCARE COMM STAR PLUS nt PLAN - MANAGED MEDICAID documented as of this encounter
[2020-03-04 18:10] LABS: Absolute Lymphocytes (CBC) 2.2 K/uL (0.7-4.9); Basophils % 0.5 % (0-1.3); Hematocrit 37.5 % (36.0-45.0); Lymphocytes % 27.2 % (15.3-44.8); RBC Red Blood Cell Count 4.38 M/uL (3.86-4.86)
[2020-03-04 18:11] LABS: Protime INR 0.99
[2020-03-04 18:14] LABS: ALT/SGPT 20 U/L (12-78); AST/SGOT 19 U/L (15-37); Albumin 3.3 g/dL (3.4-5.0); Alkaline Phosphatase 124 U/L (45-117); BUN Blood Urea Nitrogen 15 mg/dL (7-18); Bicarbonate 28 mmol/L (21-32); Bilirubin Direct < 0.1 mg/dL (0-0.2); Bilirubin Total 0.5 mg/dL (0.2-1.0); Glucose Level 265 mg/dL (74-106); Magnesium 1.8 mg/dL (1.8-2.4); NT PRO-BNP 324 pg/mL (<125); Potassium 3.8 mmol/L (3.5-5.1); Protein, Total 7.7 g/dL (6.4-8.2); Sodium Level 138 mmol/L (136-145); Troponin (Emerg Dept Use Only) 0.14 ng/mL (0.0-0.045)
[2020-03-04] MEDS ORDERED: MORPHINE 4 MG/ML SYR ONE (18:25)
[2020-03-04] MEDS ORDERED: ONDANSETRON 4 MG/2 ML VIAL ONE ×2 (18:26→22:31)
--- NOTE | 2020-03-04 18:45 | RAD REPORT ---
EXAM DESCRIPTION: CT - Thorax Wo Con - 03/04/2020 6:27 pm CLINICAL HISTORY: sob COMPARISON: 2018 CT abdomen and July 2019 CT chest TECHNIQUE: Computed axial tomography of the chest was obtained. Contrast was not requested. All CT scans are performed using dose optimization technique as appropriate and may include automated exposure control or mA/KV adjustment according to patient size. FINDINGS: The evaluation of mediastinum, isiaas and vessels is limited secondary to lack of IV contras t administration. Calcified granuloma left lung. The remainder of the lungs are clear. No mediastinal or hilar lymphadenopathy is seen. A pleural effusion is not present. No pericardial effusion. Coronary arterial calcifications are pres ent. A gastric band is present. The gastric is prominent measuring 5.5 centimeters. The esophagus is dilat ed throughout its entirety. Left renal mass only partially included in the field view described on the 2019 exam IMPRESSION: Esophageal dilatation. The gastric band may too tight.
--- NOTE | 2020-03-04 18:47 | RAD REPORT ---
EXAM DESCRIPTION: Ivis Single View03/04/2020 6:25 pm CLINICAL HISTORY: Chest pain COMPARISON: February 25, 2020 FINDINGS: The lungs appear clear of acute infiltrate. The heart is normal size IMPRESSION: No acute abnormalities displayed
[2020-03-04] MEDS ORDERED: FAMOTIDINE 20 MG/2 ML VIAL IV ONE (19:02)
[2020-03-04] MEDS ORDERED: MAGNES/ALUMIN/SIMET 30ML UCUP ONE (20:18)
[2020-03-04] MEDS ORDERED: ASPIRIN 81 MG CHEWABLE TABLET ONE (20:18)
[2020-03-04] MEDS ORDERED: ENOXAPARIN 100 MG/ML SYR SQ ONE (20:18)
[2020-03-04] MEDS ORDERED: LIDOCAINE VISCOUS 2% SOLN 15 ML UDC ONE (20:19)
--- NOTE | 2020-03-04 20:20 | ER ---
Nurse's Notes [facility] Name: Tamy Martinez Age: 59 yrs Sex: Female : 1960 Arrival Date: 03/04/2020 Time: 17:20 Bed 2 Private MD: Diagnosis: Non-ST elevation (NSTEMI) myocardial infarction Presentation: 03/04 17:20 Chief complaint: EMS states: called out for chest pain followed by N/V at 3 PM, had a em syncopal episode last Monday, then had 2 cardiac stents placed on here, covid test was negative prior to procedure. Coronavirus screen: Client denies travel out of the [place] in the last 14 days. Ebola Screen: Patient negative for fever greater than or equal to 101.5 degrees Fahrenheit, and additional compatible Ebola Virus Disease symptoms Patient denies exposure to infectious person. Patient denies travel to an Ebola-affected area in the 21 days before illness onset. No symptoms or risks identified at this time. Initial Sepsis Screen: Does the patient meet any 2 criteria? No. Patient's initial sepsis screen is negative. Does the patient have a suspected source of infection? No. Patient's initial sepsis screen is negative. Risk Assessment: Do you want to hurt yourself or someone else? Patient reports no desire to harm self or others. Onset of symptoms was March 04, 2020. 17:20 Method Of Arrival: EMS: [facility] em 17:20 Acuity: HODAN 3 em Historical: - Allergies: 17:25 Iodinated Contrast Media - IV Dye; em - PMHx: 17:25 Diabetes - IDDM; Hypertension; Hypertension resolved after lap band; Rheumatoid em Arthritis; - PSHx: 17:25 lap band and reversal; Heart stents; em - Immunization history:: Adult Immunizations up to date. - Social history:: Smoking status: Patient denies any tobacco usage or history of. Screenin:25 Abuse screen: Denies threats or abuse. Nutritional screening: No deficits noted. em Tuberculosis screening: No symptoms or risk factors identified. Fall Risk None identified. 17:25 Abuse screen: Denies threats or abuse. Denies injuries from another. Nutritional ph screening: No deficits noted. Tuberculosis screening: No symptoms or risk factors identified. Fall Risk None identified. Assessment: 17:40 Reassessment: received VO from Dr. Parada for cardiac work up for pt with chest pain em and recent cardiac stent placement. 17:49 General: Appears in no apparent distress. uncomfortable, Behavior is cooperative, ph appropriate for age, anxious, Denies fever. Pain: Complains of pain in chest Pain does not radiate. Neuro: Level of Consciousness is awake, alert, obeys commands, Oriented to person, place, time, situation. Cardiovascular: Reports chest pain, nausea, shortness of breath. Respiratory: Airway is patent Respiratory effort is even, unlabored, Respiratory pattern is regular, symmetrical. GI: Reports nausea. Derm: Skin is healthy with good turgor, Skin is pink, warm \T\ dry. Musculoskeletal: Circulation, motion, and sensation intact. Range of motion: intact in all extremities. 19:24 Reassessment: Patient appears in no apparent distress at this time. Patient and/or ph family updated on plan of care and expected duration. Pain level reassessed. Patient is alert, oriented x 3, equal unlabored respirations, skin warm/dry/pink. 19:58 Reassessment: a Purnima has called, left message for patient to call her back from her sg cell phone. pt notified. 20:30 Reassessment: Paolo-BRYAN came and assessed the patient advised admission and she agreed. mg2 Vital Signs: 17:20 BP 149 / 88; Pulse 76; Resp 18; Temp 97.8; Pulse Ox 100% on R/A; Weight 90.72 kg; em Height 5 ft. 1 in. (154.94 cm); Pain 8/10; 18:28 BP 160 / 61; Pulse 74; Resp 18; Pulse Ox 99% on R/A; ph 20:30 BP 147 / 85; Pulse 70; Resp 18; Pulse Ox 100% on R/A; mg2 17:20 Body Mass Index 37.79 (90.72 kg, 154.94 cm) em ED Course: 17:20 Patient arrived in ED. em 17:24 Triage completed. em 17:25 Anna Marie Milton, RN is Primary Nurse. ph 17:25 Arm band placed on. em 17:25 Patient has correct armband on for positive identification. Allergy band placed. Placed em in gown. Bed in low position. Call light in reach. Side rails up X2. library monitor on. Pulse ox on. NIBP on. 17:25 Patient has correct armband on for positive identification. Placed in gown. Bed in low ph position. Call light in reach. Side rails up X2. library monitor on. Pulse ox on. NIBP on. 17:40 Initial lab(s) drawn, by me. Inserted saline lock: 22 gauge in left antecubital area, em using aseptic technique. Blood collected. Patient maintains SpO2 saturation greater than 95% on room air. 17:46 Telly Parada MD is Attending Physician. kdr 18:25 XRAY Chest (1 view) In Process Unspecified. EDMS 18:27 CT Chest Wo Con In Process Unspecified. EDMS 19:05 Attending Physician role handed off by Telly Parada MD ma2 19:05 Shyam Johnson MD is Attending Physician. ma2 20:04 Primary Nurse role handed off by Anna Marie Milton RN mw2 20:19 Valentino Martinez DO is Hospitalizing Provider. ma2 20:29 Magnus Perez, MAY is Primary Nurse. mg2 20:41 Primary Nurse role handed off by Magnus Perez, MAY mw2 21:02 Magnus Perez, MAY is Primary Nurse. mg2 21:10 No provider procedures requiring assistance completed. Patient admitted, IV remains in mg2 place. Administered Medications: 18:20 Drug: Zofran (Ondansetron) 4 mg Route: IVP; Site: left antecubital; ph 19:24 Follow up: Response: No adverse reaction; Nausea is decreased ph 18:22 Drug: morphine 4 mg Route: IVP; Site: left antecubital; ph 19:24 Follow up: Response: No adverse reaction; Pain is decreased ph 19:24 Drug: Pepcid 20 mg Route: IVP; Site: left antecubital; ph 19:24 Follow up: Response: No adverse reaction ph 20:09 Drug: Lovenox 1 mg/kg Route: Sub-Q; Site: right upper abdomen; mg2 20:37 Follow up: Response: No adverse reaction mg2 20:09 Drug: Aspirin Chewable Tablet 162 mg Route: PO; mg2 20:37 Follow up: Response: No adverse reaction mg2 20:09 Not Given (Physician Discretion): GI Cocktail without - (Maalox Suspension 30 mg2 ml, Lidocaine Liquid 2 % 15 ml) PO once Outcome: 20:19 Decision to Hospitalize by Provider. ma2 20:40 Patient left the ED. mw2 21:09 Admitted to ER Hold. Please see [facility] for further documentation. mg2 03/05 00:41 Patient left the ED. mg2 Signatures: Dispatcher [employer] EDMukesh Nix, MAY OLVERA Telly Parada MD MD [facility] Dany Durand RN RN Anna Marie Milton RN RN Shyam Johnson MD MD [facility] Connie Mccormick 2 Magnus Perez RN RN mg2
--- NOTE | 2020-03-04 20:20 | EDPHYS ---
Physician Documentation [facility] Name: Tamy Martinez Age: 59 yrs Sex: Female : 1960 Arrival Date: 03/04/2020 Time: 17:20 Bed 2 Private MD: ED Physician Shyam Johnson HPI: 03/04 18:14 This 59 yrs old Female presents to ER via EMS with complaints of Chest Pain. kdr 18:14 The patient or guardian reports chest pain that is located primarily in the substernal kdr area. Onset: suddenly, at 15:00. The pain radiates to neck. Associated signs and symptoms: Pertinent positives: dizziness, nausea, vomiting, Pertinent negatives: abdominal pain, cough, diaphoresis, recent travel, shortness of breath. The chest pain is described as aching, a pressure, squeezing. Duration: The patient or guardian reports a single episode, that is still ongoing. Modifying factors: The symptoms are alleviated by nothing. the symptoms are aggravated by nothing. Severity of pain: At its worst the pain was moderate severe in the emergency department the pain is unchanged. The patient has not experienced similar symptoms in the past. The patient has been recently seen by a physician: The patient had stints placed by Dr. Mcbride last . No pain until today at 3:00 PM, came on allof a sudden. Historical: - Allergies: 17:25 Iodinated Contrast Media - IV Dye; em - PMHx: 17:25 Diabetes - IDDM; Hypertension; Hypertension resolved after lap band; Rheumatoid em Arthritis; - PSHx: 17:25 lap band and reversal; Heart stents; em - Immunization history:: Adult Immunizations up to date. - Social history:: Smoking status: Patient denies any tobacco usage or history of. ROS: 18:14 Constitutional: Negative for fever, chills, and weight loss, Eyes: Negative for injury, kdr pain, redness, and discharge, ENT: Negative for injury, pain, and discharge, Neck: Negative for injury, pain, and swelling, Respiratory: Negative for shortness of breath, cough, wheezing, and pleuritic chest pain, Abdomen/GI: Negative for abdominal pain, nausea, vomiting, diarrhea, and constipation, Back: Negative for injury and pain, : Negative for injury, bleeding, discharge, and swelling, MS/Extremity: Negative for injury and deformity, Skin: Negative for injury, rash, and discoloration, Neuro: Negative for headache, weakness, numbness, tingling, and seizure activity. Psych: Negative for depression, anxiety, suicide ideation, homicidal ideation, and hallucinations, Allergy/Immunology: Negative for hives, rash, and allergies, Endocrine: Negative for neck swelling, polydipsia, polyuria, polyphagia, and marked weight changes, Hematologic/Lymphatic: Negative for swollen nodes, abnormal bleeding, and unusual bruising. 18:14 Cardiovascular: Positive for chest pain, of the mid-sternal area, Negative for edema, orthopnea, palpitations, paroxysmal nocturnal dyspnea. 18:14 Abdomen/GI: Positive for nausea and vomiting. Exam: 18:14 Constitutional: This is a well developed, well nourished patient who is awake, alert, kdr and in no acute distress. Head/Face: Normocephalic, atraumatic. Eyes: Pupils equal round and reactive to light, extra-ocular motions intact. Lids and lashes normal. Conjunctiva and sclera are non-icteric and not injected. Cornea within normal limits. Periorbital areas with no swelling, redness, or edema. Neck: Trachea midline, no thyromegaly or masses palpated, and no cervical lymphadenopathy. Supple, full range of motion without nuchal rigidity, or vertebral point tenderness. No Meningismus. Chest/axilla: Normal chest wall appearance and motion. Nontender with no deformity. No lesions are appreciated. Cardiovascular: Regular rate and rhythm with a normal S1 and S2. No gallops, murmurs, or rubs. Normal PMI, no JVD. No pulse deficits. Respiratory: Lungs have equal breath sounds bilaterally, clear to auscultation and percussion. No rales, rhonchi or wheezes noted. No increased work of breathing, no retractions or nasal flaring. Abdomen/GI: Soft, non-tender, with normal bowel sounds. No distension or tympany. No guarding or rebound. No evidence of tenderness throughout. Back: No spinal tenderness. No costovertebral tenderness. Full range of motion. Skin: Warm, dry with normal turgor. Normal color with no rashes, no lesions, and no evidence of cellulitis. MS/ Extremity: Pulses equal, no cyanosis. Neurovascular intact. Full, normal range of motion. Neuro: Awake and alert, GCS 15, oriented to person, place, time, and situation. Cranial nerves II-XII grossly intact. Motor strength 5/5 in all extremities. Sensory grossly intact. Cerebellar exam normal. Normal gait. Psych: Awake, alert, with orientation to person, place and time. Behavior, mood, and affect are within normal limits. 19:48 ECG was reviewed by the Attending Physician. kdr Vital Signs: 17:20 BP 149 / 88; Pulse 76; Resp 18; Temp 97.8; Pulse Ox 100% on R/A; Weight 90.72 kg; em Height 5 ft. 1 in. (154.94 cm); Pain 8/10; 18:28 BP 160 / 61; Pulse 74; Resp 18; Pulse Ox 99% on R/A; ph 20:30 BP 147 / 85; Pulse 70; Resp 18; Pulse Ox 100% on R/A; mg2 17:20 Body Mass Index 37.79 (90.72 kg, 154.94 cm) em MDM: 19:[address] [facility] 20:18 Differential diagnosis: gastroesophageal reflux disease (GERD), pneumonia, stable ma2 angina, unstable angina. HEART Score: History: Highly Suspicious (2), ECG: Non specific repolarization disturbance / LBTB / PM (1), Age: > 45 and < 65 years (1), Risk Factors: > or = 3 Risk factors for atherosclerotic disease (2), Troponin: > 1 and < 3 x normal limit (1), Total Score = 6. The patient was given aspirin in the Emergency Department. Data reviewed: vital signs, nurses notes, EMS record. Counseling: I had a detailed discussion with the patient and/or guardian regarding: the historical points, exam findings, and any diagnostic results supporting the discharge/admit diagnosis, the presence of at least one elevated blood pressure reading (>120/80) during this emergency department visit, lab results, the need for further work-up and treatment in the hospital. 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 20:20 ED course: i called and texted dr. solo, waiting for a reply. also we called the [facility] extension work director nurse to contact the extension work director scroll shear operator . 03/04 17:43 Order name: Basic Metabolic Panel; Complete Time: 19:05 em 03/04 17:43 Order name: CBC with Diff; Complete Time: 19:05 em 03/04 17:43 Order name: LFT's; Complete Time: 19:05 em 03/04 17:43 Order name: Magnesium; Complete Time: 19:05 em 03/04 17:43 Order name: NT PRO-BNP; Complete Time: 19:05 03/04 17:43 Order name: PT-INR; Complete Time: 19:05 03/04 17:43 Order name: Troponin (emerg Dept Use Only); Complete Time: 19:05 03/04 17:43 Order name: XRAY Chest (1 view); Complete Time: 19:05 em 03/04 18:13 Order name: CT Chest Wo Con; Complete Time: 19:05 [facility] 03/04 20:32 Order name: COVID-19 rv 03/04 21:12 Order name: CORONAVIRUS EDSC 03/04 22:34 Order name: SARS-COV-2 RT PCR EDSC 03/04 22:35 Order name: Glucose, Ancillary Testing EDSC 03/04 23:49 Order name: Troponin I EDSC 03/04 17:43 Order name: EKG; Complete Time: 17:44 em 03/04 17:43 Order name: Cardiac monitoring; Complete Time: 17:45 em 03/04 17:43 Order name: EKG - Nurse/Tech; Complete Time: 17:45 em 03/04 17:43 Order name: IV Saline Lock; Complete Time: 17:45 em 03/04 17:43 Order name: Labs collected and sent; Complete Time: 17:45 03/04 17:43 Order name: O2 Per Protocol; Complete Time: 17:45 03/04 17:43 Order name: O2 Sat Monitoring; Complete Time: 17:45 em EC:48 Rate is 79 beats/min. Rhythm is regular, Sinus Rhythm with No ectopy. QRS [place] is kdr Normal. AK interval is normal. QRS interval is normal. Clinical impression: NSR w/ Non-specific ST/T Changes. Administered Medications: 18:20 Drug: Zofran (Ondansetron) 4 mg Route: IVP; Site: left antecubital; ph 19:24 Follow up: Response: No adverse reaction; Nausea is decreased ph 18:22 Drug: morphine 4 mg Route: IVP; Site: left antecubital; ph 19:24 Follow up: Response: No adverse reaction; Pain is decreased ph 19:24 Drug: Pepcid 20 mg Route: IVP; Site: left antecubital; ph 19:24 Follow up: Response: No adverse reaction ph 20:09 Drug: Lovenox 1 mg/kg Route: Sub-Q; Site: right upper abdomen; mg2 20:37 Follow up: Response: No adverse reaction mg2 20:09 Drug: Aspirin Chewable Tablet 162 mg Route: PO; mg2 20:37 Follow up: Response: No adverse reaction mg2 20:09 Not Given (Physician Discretion): GI Cocktail without - (Maalox Suspension 30 mg2 ml, Lidocaine Liquid 2 % 15 ml) PO once Disposition: 03/04/20 20:19 Hospitalization ordered by Valentino Martinez for Inpatient Admission. Preliminary diagnosis is Non-ST elevation (NSTEMI) myocardial infarction. - Bed requested for Telemetry/MedSurg (Inpatient). - Status is Inpatient Admission. mg2 - Condition is Stable. - Problem is new. - Symptoms are unchanged. Signatures: Dispatcher [employer] Vilma Millan RN RN Telly Parada MD MD [facility] Dany Durand RN RN Anna Marie Milton RN RN Shyam Johnson MD MD [facility] Connie Mccormick [facility] Magnus Perez RN RN mg2 Corrections: (The following items were deleted from the chart) 20:40 20:19 Hospitalization Ordered by Valentino Martinez DO for Inpatient Admission. Preliminary mw2 diagnosis is Non-ST elevation (NSTEMI) myocardial infarction. Bed requested for Telemetry/MedSurg (Inpatient). Status is Inpatient Admission. Condition is Stable. Problem is new. Symptoms are unchanged. ma2 23:34 20:40 03/04/2020 20:19 Hospitalization Ordered by Valentino Martinez DO for Inpatient dw Admission. Preliminary diagnosis is Non-ST elevation (NSTEMI) myocardial infarction. Bed requested for [facility] ER HOLD. Status is Inpatient Admission. Condition is Stable. Problem is new. Symptoms are unchanged. mw2 03/05 00:41 03/04 23:34 03/04/2020 20:19 Hospitalization Ordered by Valentino Martinez DO for Inpatient mg2 Admission. Preliminary diagnosis is Non-ST elevation (NSTEMI) myocardial infarction. Bed requested for Telemetry/MedSurg (Inpatient). Status is Inpatient Admission. Condition is Stable. Problem is new. Symptoms are unchanged. dw
--- NOTE | 2020-03-04 20:46 | P.HP ---
Certification for Inpatient Patient admitted to: Inpatient With expected LOS: >2 Midnights Patient will require the following post-hospital care: None Practitioner: I am a practitioner with admitting privileges, knowledge of patient current condition, hospital course, and medical plan of care. Services: Services provided to patient in accordance with Admission requirements found in Title 42 Section 412.3 of the Code of Federal Regulations Patient History Date of Service: 03/04/20 Reason for admission: NSTEMI History of Present Illness: 59-year-old female with history of hypertension, diabetes mellitus type 2, CAD with recent stent placement to the RCA,HLD presents emergency department for chest pain. Patient reports that at home she was standing up and got dizzy, followed by episode of chest pain. Patient reports that felt like somebody was sitting on her chest, pain radiating to right shoulder and was associated with shortness of breath and diaphoresis. Patient reports that pain episode lasted approximately 5 min. Patient presented to the emergency department for evaluation, initial troponin 0.14, EKG and chest x-ray unrema rkable. CT of chest shows esophageal dilatation secondary to gastric band. Patient reports that she had problems with her gastric band in the past in to her understanding it had been completely released. Patient has some of harmful sensation in her throat but is able to tolerate clear liquids at this time. Discussed with patient that we would be unable to address any GI issues that could arise during hospitalization and she required transfer if this became an issue will be could help take care of her heart problem. Patient currently not in any distress, tolerating liquids and was able to eat breakfast and lunch. Will admit for further evaluation of NSTEMI with recent heart catheterization. When I saw the patient in the ER she is awake, alert, oriented x3. patient currently is pain free. Given full dose Lovenox in the ED. Case discussed with cardiology by ED physician. Allergies Iodinated Contrast Media [Iodinated Contrast Media - Oral and] Allergy (Severe, Verified 03/13/17 21:21) Unknown iodine [Iodine] Allergy (Severe, Verified 04/11/16 14:05) Itching and swelling Home Medications: Folic Acid 1 tab PO DAILY 02/25/20 Gabapentin [Neurontin] 1 tab PO BID 02/25/20 Insulin Aspart [Novolog] See Protocol SQ ACHS 02/25/20 Insulin Glargine Human [Lantus*] 26 units SQ BREAKFAST 02/25/20 Liraglutide [Victoza 2-Zan] 6 units SQ BEDTIME 02/25/20 Losartan Potassium [Cozaar] 1 tab PO DAILY 02/25/20 Methotrexate Sodium [Methotrexate] 1 tab PO SEECOM 02/25/20 Tofacitinib Citrate [Xeljanz Xr] 1 tab PO DAILY 02/25/20 Vitamin D [isdol*] 1 cap PO SEECOM 02/25/20 Aspirin [Aspirin EC 81 MG] 162 mg PO DAILY #60 tablet. 02/28/20 Atorvastatin Calcium [Lipitor] 40 mg PO BEDTIME #30 tab 02/28/20 Clopidogrel Bisulfate [Plavix*] 75 mg PO DAILY #30 tablet 02/28/20 Vitamin D [isdol*] 50,000 unit PO Q7D@0900 #10 cap 02/28/20 - Past Medical/Surgical History Diabetic: Yes -: Diabetes mellitus type 2 -: HTN -: Rheuamtoid Arthritis -: Degenerative disk and joint disease of the spine -: Lap band 2009 -: x2 -: Left knee replacement -: Cholecystectomy -: right knee replacement Psychosocial/ Personal History: She is , has 2 children. She does not work. - Family History Father -: Hypertension Notes: brother had OR at 30; Mother -: Cancer Notes: esophageal - Social History Alcohol use: No CD- Drugs: No Caffeine use: No Place of Residence: Home Review of Systems 10-point ROS is otherwise unremarkable Respiratory: Shortness of Breath, As per HPI Cardiovascular: Chest Pain, As per HPI Physical Examination - Physical Exam General: Alert, In no apparent distress HEENT: Atraumatic, PERRLA, Mucous membr. moist/pink, EOMI, Sclerae nonicteric Neck: Supple, 2+ carotid pulse no bruit, No LAD, Without JVD or thyroid abnormality Respiratory: Clear to auscultation bilaterally, Normal air movement Cardiovascular: Regular rate/rhythm, Normal S1 S2 Gastrointestinal: Normal bowel sounds, No tenderness Musculoskeletal: No tenderness Integumentary: No rashes Neurological: Normal speech, Normal strength at 5/5 x4 extr, Normal tone, Normal affect - Studies Laboratory Data (last 24 hrs) 03/04/20 17:40: PT 11.7, INR 0.99 03/04/20 17:40: WBC 7.9 D, Hgb 12.9, Hct 37.5, Plt Count 256 03/04/20 17:40: Sodium 138, Potassium 3.8, BUN 15, Creatinine 1.15, Glucose 265 H, Magnesium 1.8, Total Bilirubin 0.5, AST 19, ALT 20, Alkaline Phosphatase 124 H Assessment and Plan - Plan Assessment NSTEMI, chest pain with recent stent placement Diabetes mellitus type 2 Hypertension Hyperlipidemia Rheumatoid arthritis Plan NSTEMI, chest pain with recent stent placement: Trend troponins, monitor on telemetry. Continue with full-dose Lovenox, aspirin, Plavix, home medications. Cardiology consult in place. NPO after midnight. Diabetes mellitus type 2: A.c. HS Accu-Cheks scale insulin therapy. Obtain restart home medications when appropriate. Hypertension: Obtain and continue home medications Hyperlipidemia: Continue atorvastatin 40 mg p.o. daily. Rheumatoid arthritis: Continue home medications Discharge Plan: Home Plan to discharge in: 48 Hours - Advance Directives Does patient have a Living Will: No Does patient have a Durable POA for Healthcare: No - Code Status/Comfort Care Code Status Assessed: Yes (Full code) Critical Care: No Time Spent Managing Pts Care (In Minutes): 55
[2020-03-04] MEDS: INSULIN -REGULAR HUMAN 50 UNIT/0.5 ML ML SQ SCH (21:12)
[2020-03-04] MEDS: ATORVASTATIN 20 MG TAB PO SCH (21:12)
[2020-03-04] MEDS ORDERED: ATORVASTATIN 20 MG TAB ONE (22:22)
[2020-03-04] MEDS ORDERED: MORPHINE 2 MG/ML SYR ONE (22:31)
[2020-03-04] MEDS: ONDANSETRON 4 MG/2 ML VIAL IV PRN (22:33)
[2020-03-04] MEDS: MORPHINE 2 MG/ML SYR IV PRN (22:35)
[2020-03-04] MEDS ORDERED: INSULIN -REGULAR HUMAN 50 UNIT/0.5 ML ML ONE (22:54)
[2020-03-05 01:39] VITALS: BMI 39.3
[2020-03-05 06:20] LABS: Absolute Lymphocytes (CBC) 1.8 K/uL (0.7-4.9); Basophils % 0.5 % (0-1.3); Hematocrit 34.7 % (36.0-45.0); Lymphocytes % 21.8 % (15.3-44.8); MPV 7.9 fL (7.6-11.3); RBC Red Blood Cell Count 4.05 M/uL (3.86-4.86)
[2020-03-05 06:35] LABS: Potassium 4.1 mmol/L (3.5-5.1); Troponin I 0.13 ng/mL (0.0-0.045)
[2020-03-05] MEDS: MORPHINE 2 MG/ML SYR IV PRN ×2 (09:00→16:20)
[2020-03-05] MEDS: ENOXAPARIN 100 MG/ML SYR SQ SCH ×2 (09:00→20:54)
[2020-03-05] MEDS: ONDANSETRON 4 MG/2 ML VIAL IV PRN ×2 (09:00→16:20)
[2020-03-05] MEDS: ASPIRIN EC 81 MG TAB PO SCH (09:01)
[2020-03-05] MEDS: CLOPIDOGREL 75 MG TABLET PO SCH (09:01)
[2020-03-05] MEDS: GABAPENTIN 300 MG CAP PO SCH ×2 (09:01→20:54)
[2020-03-05] MEDS: LOSARTAN POTASSIUM 50 MG TABLET PO SCH (09:01)
[2020-03-05] MEDS: INSULIN -REGULAR HUMAN 50 UNIT/0.5 ML ML SQ SCH ×4 (09:02→20:55)
[2020-03-05] MEDS ORDERED: LIDOCAINE 1% 20 ML MDV ONE (10:59)
[2020-03-05] MEDS ORDERED: HEPA 1000U/500MLS 2,000 UNIT/1,000 ML BAG IV ONE (10:59)
[2020-03-05] MEDS ORDERED: NA CHLORIDE 0.9% 1,000 ML ONE (11:21)
--- NOTE | 2020-03-05 11:34 | P.PN ---
Subjective Date of Service: 03/05/20 Chief Complaint: NSTEMI Subjective: Improving (Patient is improving admitted with some chest discomfort recent stent placement troponins were mildly elevated currently she is not having any chest pain as some dyspnea for the past week) Review of Systems 10-point ROS is otherwise unremarkable Physical Examination - Vital Signs Temperature: 97.6 F Blood Pressure: 133/61 Pulse: 73 Respirations: 16 Pulse Ox (%): 98 - Physical Exam General: Alert, Oriented x3 HEENT: Atraumatic Neck: Supple Respiratory: Clear to auscultation bilaterally Cardiovascular: No edema, Normal S1 S2 - Studies Laboratory Data (last 24 hrs) 03/04/20 17:40: PT 11.7, INR 0.99 03/04/20 17:40: WBC 7.9 D, Hgb 12.9, Hct 37.5, Plt Count 256 03/04/20 17:40: Sodium 138, Potassium 3.8, BUN 15, Creatinine 1.15, Glucose 265 H, Magnesium 1.8, Total Bilirubin 0.5, AST 19, ALT 20, Alkaline Phosphatase 124 H Assessment & Plan - Problems (Diagnosis) (1) Chest pain, rule out acute myocardial infarction Current Visit: No Status: Acute Plan: Patient is 59 years of age admitted with chest pain troponins are mildly elevated she is has some stents plays awaiting cardiology Consul she is not having any chest pain now labs all unremarkable has some dyspnea on mild exertion prior echo was normal no wall motion abnormality vital signs oxyg enation all satisfactory
[2020-03-05] MEDS ORDERED: DIPHENHYDRAMINE 50 MG/ML VIAL ONE (11:41)
[2020-03-05] MEDS ORDERED: METHYLPREDNISOLONE 125 MG INJ ONE (11:41)
[2020-03-05] MEDS ORDERED: FENTANYL CITR 100 MCG/2 ML ONE (11:42)
[2020-03-05] MEDS ORDERED: MIDAZOLAM HCL 2 MG/2 ML INJ ONE (11:42)
[2020-03-05] MEDS ORDERED: ATROPINE SULF 1 MG/10 ML SYR IV ONE (11:42)
[2020-03-05] MEDS ORDERED: HEPARIN 10,000 UNIT/10 ML VIAL IV ONE (11:42)
[2020-03-05] MEDS ORDERED: EPINEPHrine 1 MG/10 ML SYR ONE (11:59)
--- NOTE | 2020-03-05 13:08 | OP ---
Date of Procedure: 03/05/2020 Surgeon: EUGENIA CRUZ Procedure Performed: 1.Selective coronary angiogram. 2.IFR measurement of proximal moderate RCA stenosis was insignificant of a value of 0.94. Indication: Non-ST elevation myocardial infarction. Access: Left femoral artery 6-Kyrgyz closed with 6-Kyrgyz Angio-Seal. Complications: None. Bleeding: Less than 20 mL. Description Of Procedure: After risks, benefits, alternatives were explained, the patient agreed to procedure and signed informed consent. She was brought into the cardiac catheterization laboratory, prepped and draped in usual sterile fashion and then we accessed. We used fentanyl and Versed in inc remental doses to achieve adequate moderate sedation. Then, we accessed left femoral artery under fl uoroscopy and ultrasound guidance with a 6-Kyrgyz sheath and then we took a 6-Kyrgyz JL 3.5 catheter into the aortic root, engaged left main, took standard views and then a JR4 catheter, engaged the rig ht coronary artery and took standard views. Intervention Details: We gave a systemic heparin to assure still above 250 and then we took the come t wire into the aortic root and equalize pressures and then took it across the proximal RCA stenosis and IFR was recorded at 0.94, which was insignificant. Wire was removed. Final injection showed no complication. Findings: 1.Left main is normal. 2.LAD has a mid 30% to 40% stenosis. Overall small vessel. 3.Left circumflex with luminal irregularities. 4.RCA has a proximal 40% to 50% stenosis. Negative IFR of 0.94, makes the lesion insignificant and there is a stent that was placed last week and the distal RCA is widely patent without ISR. Conclusion: 1.Moderate coronary artery disease of the RCA and negative IFR. 2.Patent RCA stent. No complications. Recommendations: Aggressive medical management and patient can be discharged home from cardiology [facility] and follow up as an outpatient in 4 weeks. SR/MODL Voice ID: [id number] Report ID: [id number]
[2020-03-05] MEDS: ATORVASTATIN 20 MG TAB PO SCH (20:54)
[2020-03-06] MEDS: CLOPIDOGREL 75 MG TABLET PO SCH (08:45)
[2020-03-06] MEDS: ASPIRIN EC 81 MG TAB PO SCH (08:45)
[2020-03-06] MEDS: LOSARTAN POTASSIUM 50 MG TABLET PO SCH (08:45)
[2020-03-06] MEDS: GABAPENTIN 300 MG CAP PO SCH (08:46)
[2020-03-06] MEDS: ENOXAPARIN 100 MG/ML SYR SQ SCH (08:46)
[2020-03-06] MEDS: INSULIN -REGULAR HUMAN 50 UNIT/0.5 ML ML SQ SCH (08:46)
[2020-03-06 10:25] VITALS: O2SAT 98
--- NOTE | 2020-03-06 10:40 | P.DS ---
Admission Date: 03/04/20 (Hospitalist) Discharge Date: 03/06/20 Disposition: ROUTINE DISCHARGE Discharge Condition: FAIR Reason for Admission: NSTEMI - Problems (1) Chest pain, rule out acute myocardial infarction Current Visit: No Status: Acute Brief History of Present Illness: Patient is 59 years of age admitted with chest pain Hospital Course: She did undergo cardiac catheterizationFindings: 1. Left main is normal. 2. LAD has a mid 30% to 40% stenosis. Overall small vessel. 3. Left circumflex with luminal irregularities. 4. RCA has a proximal 40% to 50% stenosis. Negative IFR of 0.94, makes the lesion insignificant and there is a stent that was placed last week and the distal RCA is widely patent without ISR. Conclusion: 1. Moderate coronary artery disease of the RCA and negative IFR. 2. Patent RCA stent. No complications. Recommendations: Aggressive medical management and patient can be discharged home from cardiology standpoint and follow up as an outpatient in 4 weeks. Time of discharge doing well no complaints no chest pain or shortness of breath patient's vital signs all stable on examination alert oriented x3 chest clear cardiovascular system os sounds normal Vital Signs/Physical Exam: Temp Pulse Resp BP Pulse Ox 97.7 F 75 20 144/66 H 98 03/06/20 08:00 03/06/20 08:00 03/06/20 08:00 03/06/20 08:00 03/06/20 08:00 Laboratory Data at Discharge: WBC 8.2 K/uL (4.3-10.9) 03/05/20 05:43 Hgb 12.0 g/dL (12.0-15.0) 03/05/20 05:43 Hct 34.7 % (36.0-45.0) L 03/05/20 05:43 Plt Count 248 K/uL (152-406) 03/05/20 05:43 PT 11.7 SECONDS (9.5-12.5) 03/04/20 17:40 INR 0.99 03/04/20 17:40 Sodium 142 mmol/L (136-145) 03/05/20 05:43 Potassium 4.1 mmol/L (3.5-5.1) 03/05/20 05:43 BUN 16 mg/dL (7-18) 03/05/20 05:43 Creatinine 0.99 mg/dL (0.55-1.3) 03/05/20 05:43 Glucose 199 mg/dL (74-106) H 03/05/20 05:43 Magnesium 2.0 mg/dL (1.8-2.4) 03/05/20 05:43 Total Bilirubin 0.5 mg/dL (0.2-1.0) 03/04/20 17:40 AST 19 U/L (15-37) 03/04/20 17:40 ALT 20 U/L (12-78) 03/04/20 17:40 Alkaline Phosphatase 124 U/L (45-117) H 03/04/20 17:40 Troponin I 0.13 ng/mL (0.0-0.045) H 03/05/20 05:43 Home Medications: Gabapentin [Neurontin] 600 mg PO BID 02/25/20 Insulin Aspart [Novolog] See Protocol SQ ACHS 02/25/20 Insulin Glargine Human [Lantus*] 26 units SQ BREAKFAST 02/25/20 Losartan Potassium [Cozaar] 25 mg PO DAILY 02/25/20 Tofacitinib Citrate [Xeljanz Xr] 1 tab PO DAILY 02/25/20 Aspirin [Aspirin EC 81 MG] 162 mg PO DAILY #60 tablet. 02/28/20 Atorvastatin Calcium [Lipitor] 40 mg PO BEDTIME #30 tab 02/28/20 Clopidogrel Bisulfate [Plavix*] 75 mg PO DAILY #30 tablet 02/28/20 Vitamin D [Drisdol*] 50,000 unit PO Q7D@0900 #10 cap 02/28/20 Methotrexate [Methotrexate*] 3 tab PO Q7D 03/05/20 Followup: Unknown,U [Primary Care Provider] - Dany Mcdonald MD [ACTIVE - CAN ADMIT] - 04/03/20
[2020-03-06 12:25] VITALS: BP 130/65; TEMP 97.3
--- NOTE | 2020-03-06 14:45 | CON ---
Date of Consultation: 03/05/2020 Reason For Consultation: Elevated troponin. History Of Present Illness: This is a 59-year-old female who presented to the hospital with chest pa in. Recent intervention of the RCA was done by myself about a week ago. The patient has been compla ined that she did have chest pain last night along with dizziness and some shortness of breath, and s he has been compliant with her medications. Past Medical History: Diabetes, hypertension, coronary artery disease. Medications: Refer to reconciliation sheet for detailed list. Allergies: IODINE. Family History: No premature coronary artery disease or cancer. Social History: She does not smoke or drink. Does not use drugs. Review of Systems: All systems were reviewed and they were negative except mentioned in the HPI. Physical Examination: Vital Signs: Temperature is 97.7, pulse 75, breathing 18, blood pressure 144/66, saturating 98% on r oom air. General: Pleasant, middle-aged female, in no apparent distress. Head and Neck: Pupils are equal, reactive to light. Intact eye movements. No JVD. No cervical lym phadenopathy. Neck: Supple. Thyroid is not enlarged. Lungs: Clear to auscultation bilaterally. No rhonchi, wheezing, or crackles. No accessory muscle u se. Heart: Regular rate and rhythm. No extra sounds. Abdomen: Soft, nontender. Bowel sounds positive. No organomegaly. No masses or hernia. No rigidi ty or rebound. Extremities: No edema, clubbing, or cyanosis. Neurologic: Alert, awake, and oriented x3. No acute focal deficits appreciated. Investigations: Troponin peaked at 0.14. Creatinine 0.99. Assessment And Plan: Elevated troponin, could be a non-ST elevation myocardial infarction. She had recent stent put in, no acute changes in EKG, however, she had a proximal RCA that was diseased mode rately. I will plan for coronary angiogram with possible FFR of the RCA and intervention further if needed. Meanwhile, continue dual anti-platelet therapy, high-dose statin, and continue to trend trop onin and obtain echocardiogram. Thank you for the consult. SR/MODL Voice ID: [id number] Report ID: [id number]
== END 2020-03-06 11:44 | disposition home or self-care (01) | DRG 282 ==
LOC: ER 17:15 → ERHOLD 20:21 → 2ND 03-05 00:27
PROVIDERS: ADMIT Family Medicine; ATTEND Internal Medicine Sleep Medicine
PROC: 4A023N7 Measurement of Cardiac Sampling and Pressure, Left Heart, Percutaneous Approach (ICD-10-PCS; principal; 2020-03-05)
PROC: B2111ZZ Fluoroscopy of Multiple Coronary Arteries using Low Osmolar Contrast (ICD-10-PCS; 2020-03-05)
DX: I21.4 Non-ST elevation (NSTEMI) myocardial infarction (principal); E11.9 Type 2 diabetes mellitus without complications; M06.9 Rheumatoid arthritis, unspecified; I25.10 Atherosclerotic heart disease of native coronary artery without angina pectoris; I10 Essential (primary) hypertension; E78.5 Hyperlipidemia, unspecified; Z95.5 Presence of coronary angioplasty implant and graft; Z91.041 Radiographic dye allergy status; Z79.4 Long term (current) use of insulin; Z79.82 Long term (current) use of aspirin; Z79.02 Long term (current) use of antithrombotics/antiplatelets; Z79.899 Other long term (current) drug therapy; Z96.653 Presence of artificial knee joint, bilateral; Z90.49 Acquired absence of other specified parts of digestive tract; Z56.0 Unemployment, unspecified; Z20.828 Contact with and (suspected) exposure to other viral communicable diseases
CPT/HCPCS: 36415; 71045; 71250; 80048; 80076; 80185; 82947; 83735; 83880; 84484; 85025; 85347; 85610; 93005; 93454; 93571; 96372; 96374; 96375; 99285; C1760; C1893; J0171; J1200; J1644; J1650; J2250; J2270; J2405; J2930; J3010; J7030; U0003

== ENCOUNTER 2020-04-13 09:53 | Observation (INO) | payer BC, OTHER ==
--- OUTSIDE RECORDS SUMMARY | 2020-04-13 10:23 | XMS REPORT | Clinical Summary ---
:1960 Author Organization [facility] Address [address] [place] [address] Care Team Providers Name Role Phone Pcp, [...] VACCINE (#1) 2019 Results Not on fileafter 04/13/2019 Insurance Payer Benefit Subscriber ID Effective Phone Address Type Plan / Dates Group BLUE BCBS OS [id number] 2018-Pres [phone] PPO CROSS/BLUE POS/PPO/EPO ent [id number] [place] [address] MEDICAID - [facility] COMM [id number] 2018-Pres Med icaid MEDICAID MGD STAR PLAN ent Contrac [facility] Advance Directives For more information, please contact: [phone] Code Status Date Activated Date Inactivated Comments Full Code 10/15/2018 4:27 PM 10/18/2018 2:04 AM This code status was determined by: Patient
--- OUTSIDE RECORDS SUMMARY | 2020-04-13 10:23 | XMS REPORT | Continuity of Care Document ---
:1960 Author Organization [facility] t Address [address] [place] [address] Care Team Providers Name Role Phone Pcp Primary Care Physician Sheri ADAMS Attending Clinician Mike RYAN, K.H. Attending Clinician Doctor Unassigned, Name Attending Clinician Unavailable Reggie ZELAYA Attending Clinician Unavailable Reggie ZELAYA [...] Stop Date Source Natural father Heart disease [facility] Natural mother Cancer [facility] Social History Social Habit Start Date Stop Date Quantity Comments Source History SDOH [facility] - Alcohol Std Drinks [facility] Center History SDOH [facility] - Alcohol Binge Medical Jean ter Sex Assigned At [facility] Tobacco use and 2018-10-15 2018-10-[address] [facility] - exposure 00:00:00 00:00:00 Medical Center Alcohol intake 2018-10-15 2018-10-[address] [facility] - 00:00:00 00:00:00 non-drinker of Medical Ce nter alcohol (finding) History SDOH 2018-10-15 2018-10-[address] [facility] - Alcohol Frequency 00:00:00 00:00:00 Medical Center Smoking Status Start Date Stop Date Source Never smoker [facility] edical Center Medications [...] [facility] Test 00:00:00 measurement Medical Center (procedure) [code = 58635028] Future Scheduled [address] [facility] - Test 00:00:00 (procedure) [code = Medical Center 39035443] Future Scheduled [address] [facility] - Test 00:00:00 [facility] cervix (procedure) [code = 985978423] Future Scheduled [address] DIABETIC EYE EXAM [facility] - Test 00:00:00 [code = DIABETIC EYE Medical Center EXAM] Future Scheduled [address] [facility] - Test 00:00:00 examination Medical Center (regime/therapy) [code = 092241977] Future Scheduled 1972 Urine screening for [facility] - Test 00:00:00 protein (procedure) Medical Center [code = 653940192] Future Scheduled [address] [facility] - Test 00:00:00 0-64 YRS (1 of 1 - Medical C enter PPSV23) [code = PNEUMOCOCCAL VACCINE 0-64 YRS (1 of 1 - PPSV23)] Future Scheduled [address] [facility] - Test 00:00:00 [facility] breast (procedure) [code = 601397328] Future Scheduled [address] [facility] - Test 00:00:00 malignant neoplasm of [facility] colon (procedure) [code = 382024385] Encounters Start End Encounter Admission Attending Care Care Encounter Source Date/Time Date/Time Type Type Clinicians Facility Department ID 2020-03-26 2020-03-26 [facility] [id number] 11:51:00 18:13:00 Yani Burch [id number] [place] [id number] Elsa [id number] 2020-03-26 2020-03-26 Telephone Mike TNAYDEN [id number] 00:00:00 00:00:00 Rachel Burch [id number] [place] 4.2.7.2.686 Professio [phone] nal [address] [place] [address] 2020-03-16 2020-03-16 Office Mike TNAYDEN [id number] 08:45:41 09:51:05 Visit Rachel Burch [id number] [place] 4.2.7.2.686 Professio [id number] [address] 2020-03-162020-03-16 Orders Doctor ASHLEY [id number] 00:00:00 00:00:00 Only Unassigned, [place] 350.1.13.10 [place] [facility] 4.2.7.2.686 [id number] Results Test Description Test Time Test Comments Results Result Comments Source POCT-GLUCOSE METER 2018-10-17 21:54:00 Test Item Value Reference Range Interpretation Comme nts POC-GLUCOSE METER ([facility]) (test 194 mg/dL 70-110 H TESTED AT [address] code = 1538) [facility] 7703 0 POCT-GLUCOSE [id number] 16:50:00 Test Item Value Reference Range Interpretation Comments POC-GLUCOSE METER 134 mg/dL 70-110 H TESTED AT [place] [address] ([facility]) (test code = [facility] [place] [facility] 1538) [id number] POCT-GLUCOSE [id number] 12:10:00 Test Item Value Reference Range Interpretation Comments POC-GLUCOSE METER 155 mg/dL 70-110 H TESTED AT [place] [address] ([facility]) (test code = [facility] 1538) [id number] POCT-GLUCOSE [id number] 05:34:00 Test Item Value Reference Range Interpretation Comments POC-GLUCOSE METER 249 mg/dL 70-110 H TESTED AT [place] [address] ([facility]) (test code = [facility] [place] [facility] 1538) [address] POCT-GLUCOSE [id number] 00:09:00 Test Item Value Reference Range Interpretation Comments POC-GLUCOSE METER 236 mg/dL 70-110 H TESTED AT [place] [address] ([facility]) (test code = [facility] [place] [facility] 1538) [id number] POCT-GLUCOSE [id number] 21:17:00 Test Item Value Reference Range Interpretation Comments POC-GLUCOSE METER 153 mg/dL 70-110 H TESTED AT [place] [address] ([facility]) (test code = [facility] [place] [facility] 1538) [address] POCT-GLUCOSE [id number] 18:23:00 Test Item Value Reference Range Interpretation Comments POC-GLUCOSE METER 148 mg/dL 70-110 H TESTED AT [place] [address] ([facility]) (test code = [facility] 1538) [address] [place], UGI, WITHOUT [id number] 17:33:00Reason for exam:->Please evaluate with thin barium [...] Verified Date/Time: 10/16/2018 17:33:25 Reading Location: [facility] C013X Ortho Consult Reading Room -GLUCOSE [id number] 05:59:00 Test Item Value Reference Range Interpretation Comments POC-GLUCOSE METER 192 mg/dL 70-110 H TESTED AT [place] [address] ([facility]) (test code = [facility] 1538) [id number] POCT-GLUCOSE [id number] 00:39:00 Test Item Value Reference Range Interpretation Comments POC-GLUCOSE METER 172 mg/dL 70-110 H TESTED AT [place] [address] ([facility]) (test code = [employer] [place] [facility] 1538) [id number] POCT-GLUCOSE [id number] 22:13:00 Test Item Value Reference Range Interpretation Comments POC-GLUCOSE METER 187 mg/dL 70-110 H TESTED AT [place] [address] ([facility]) (test code = [facility] 1538) [address] RAD, CHEST, 1 VIEW, NON [id number] 18:59:00Reason for exam:->preopShould this be performed at [...] MDReport Verified Date/Time: 10/15/2018 18:59:09 Reading Location: [place] [address] C013W Consult Reading Room BASI METABOLIC [id number] 18:46:00 Test Item Value Reference Range Interpretation [...] NOT APPLICABLE FOR DIALYSIS PATIEN TS. HEMOGLOBIN [id number] 18:36:00 Test Item Value Reference Range Interpretation Comments HEMOGLOBIN A1C (BEAKER) (test code = 9.7 % 4.3-6.1 H 368) POCT-GLUCOSE [id number] 18:14:00 Test Item Value Reference Range Interpretation Comments POC-GLUCOSE METER 207 mg/dL 70-110 H TESTED AT [facility] 6720 ([facility]) (test code = [place] 1538) [address] CBC W/PLT COUNT & AUTO [id number] 18:13:00 Test Item Value Reference Range Interpretation [...] % 0-1 PERCENT (BEAKER) (test code = 5941)
--- OUTSIDE RECORDS SUMMARY | 2020-04-13 10:24 | XMS REPORT | Summary of Care ---
:1960 Author Organization [facility] - Health Address [address] [id number] Care Team Providers Name Role Phone Christiano Núñez Primary Care Provider Encounter Details Date Type Department Care Team Description 03/09/2020 Orders Only [facility] Doctor Unassigned, No [address] [facility] [place] [address] Allergies Active Allergy Reactions Severity Noted Date Comments Iodine And Iodide Containing Products Rash 01/2016 documented as of this encounter (statuses as of 03/09/2020) Medications Medication Sig Dispensed Refills Start Date [...] 02/27/2019 Active XR) 11 mg mouth daily. [id number]: Rheumatoid arthritis, seropositive, Therapeutic drug monitoring TRAMADOL 50 mg TAKE 1 TABLET BY 120 tablet 0 05/13/2019 Active tabletIndications: MOUTH UP TO FOUR Rheumatoid arthritis, TIMES DAILY seropositive NEEDED FOR PAIN documented as of this encounter (statuses as of 03/09/2020) Active Problems Problem Noted Date Proliferative diabetic retinopathy of both eyes with m acular edema 01/21/2019 associated with type 2 diabetes mellitus Overview: Added automatically from request for akshat henning [id number] NSVT (nonsustained ventricular tachycardia) 05/19/2017 Total knee [...] of hand 11/07/2012 Overview: ICD10 Diagnosis Term Fishing Rod Marker Utility Diabetic peripheral neuropathy 11/06/2012 Diabetes mellitus type 2, uncontrolled, without compli cations 01/13/2012 Overview: ICD10 Diagnosis Term Fishing Rod Marker Utility Obesity 01/13/2012 Overview: ICD10 Diagnosis Term Fishing Rod Marker Utility HLD (hyperlipidemia) 01/13/2012 Overview: ICD10 Diagnosis Term Fishing Rod Marker Utility Elevated BP 01/13/2012 Mild vitamin D deficiency 01/13/2012 Steroid long-term use 01/13/2012 Encounter for long-term (current) use of other medicat ions 07/19/2011 Raynaud's syndrome 07/28/2009 Rheumatoid arthritis 07/28/2009 Overview: ICD10 Diagnosis Term Fishing Rod Marker Utility Encounter for long-term (current) use of steroids 07/11 Chronic pain syndrome 07/28/2009 documented as of this encounter (statuses as of 03/09/2020) Immunizations Name Administration Dates Next Due Zoster Vaccine Recombinant 03/25/2019, 01/18/2019 documented as of this encounter Social History Tobacco Use Types Packs/Day Years Used Date Never Smoker Smokeless Tobacco: Never Used Alcohol Use Drinks/Week oz/Week Comments No Sex Assigned at Date Recorded Not on file COVID-19 Exposure Response Date Recorded In the last month, have you been in contact with No / Unsure 03/09/2020 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 documented as of this encounter Last Filed Vital Signs Not on filedocumented in this encounter Plan of Treatment Date Type Specialty Care Team Description 03/09/2020 Office Visit Ophthalmology Carmelina Chaidez M D [address] [place] [address] [phone] Health Maintenance Due Date Last Done [...] VACCINE (#1) 2019 PAP SMEAR 01/27/2020 01/26/2017 CREATININE (SERUM) 05/20/2020 05/21/2019, 02/28/2019, 02/27/2019, Additional history exists Depression Screening 05/20/2020 05/21/2019 LDL-C 05/20/2020 05/21/2019, 02/27/2019, 01/15/2019, Additional history exists EYE EXAM 03/03/2021 03/03/2020, 02/27/2019, 02/19/2019, Additional history exists HEPATITIS C (HCV) SCREEN Completed 02/27/2019, 12/27/2018, 12/27/2016, Additional history exists Zoster Recombinant Vaccine Completed 03/25/2019, 9 (SHINGRIX) documented as of this encounter Implants Implanted Type Area Tank Farm Operator Device Shelf Model / Identifier Expiration Date Ser ial / Lot Palacos [employer] CEMENT Right: Biomet 05/13 [id number] / Implanted: Qty: 1 on 05/15/2017 by Rex Argueta MD at [facility] Knee 8 [id number] / [id number] Ps Open Box Femoral-Right KNEE Right: Biomet 04/2026 [id number] / Implanted: Qty: 1 on 05/15/2017 by Rex Argueta MD at [facility] Knee J [id number] / [id number] Adc Plate Tibial Cruciate 67 Mm - [id number] PLATE Right: Biomet 01/16/2027 [id number] / Implanted: Qty: 1 on 05/15/2017 by Rex Argueta MD at [facility] Knee J [id number] / [id number] Adc Patella 31 X 8 Mm - [id number] Right: Biomet 12/31/2021 [id number] / Implanted: Qty: 1 on 05/15/2017 by Rex Argueta MD at [facility] Knee [id number] / [id number] Bearing Tib 10 X 63/67 Mm #[id number] - [id number] Right: Biomet 01/24/2022 [id number] / Implanted: Qty: 1 on 05/15/2017 by Rex Argueta MD at [facility] Knee [id number] / [id number] documented as of this encounter Procedures Procedure Name Priority Date/Time Associated Diagnosis Comme nts ASSIGNMENT OF BENEFITS Routine 03/09/2020 8:26 AM DIGITAL SPECIALIST documented in this encounter Results Not on filedocumented in this encounter Insurance Payer Benefit Plan Subscriber ID Effective Phone Address Typ e / Group Dates [place] [id number] 2012-Pres [phone] [address] PPO/POS [place] - OUT ent [id number] [place] [address] [facility] [id number] 2018-Prese Medic aid HEALTHCARE COMM STAR PLUS nt PLAN - MANAGED MEDICAID documented as of this encounter
--- OUTSIDE RECORDS SUMMARY | 2020-04-13 10:25 | XMS REPORT | Summary of Care ---
:1960 Author Organization [facility] Address [address] [place] [address] Care Team Providers Name Role Phone Christiano Núñez Primary Care Provider Reason for Visit Reason Comments DME Encounter Details Date Type Department Care Team Description 03/09/2020 Office Visit [facility] El Joana Jordan MD [address] [place] [address] [phone] Proliferative diabetic retinopathy of yelena th eyes with macular edema associated with type 2 diabetes mellitus (Primary Dx); [facility] [place] Melba Vora MD [address] [facility] [address] Diabetic macular edema of both eyes; [facility] Carmelina Chaidez MD [address] [place] [phone] Hypertensive retinopathy of both eyes; [facility] Senile nuc lear sclerosis, bilateral; South, Entrance B Long-term use of Plaquenil; [place], [place] Dry eyes, bi lateral [phone] Allergies Active Allergy Reactions Severity Noted [...] 02/27/2019 Active XR) 11 mg mouth daily. [id number]: Rheumatoid arthritis, seropositive, Therapeutic drug monitoring TRAMADOL [...] Added automatically from request for akshat henning [id number] NSVT (nonsustained ventricular tachycardia) 05/19/2017 Total knee [...] of hand 11/07/2012 Overview: ICD10 Diagnosis Term Volunteer Services Supervisor Utility Diabetic peripheral neuropathy 11/06/2012 Diabetes mellitus type 2, uncontrolled, without compli cations 01/13/2012 Overview: ICD10 Diagnosis Term Volunteer Services Supervisor Utility Obesity 01/13/2012 Overview: ICD10 Diagnosis Term Volunteer Services Supervisor Utility HLD (hyperlipidemia) 01/13/2012 Overview: ICD10 Diagnosis Term Volunteer Services Supervisor Utility Elevated BP 01/13/2012 Mild vitamin D deficiency 01/13/2012 Steroid long-term use 01/13/2012 Encounter for long-term (current) use of other medicat ions 07/19/2011 Raynaud's syndrome 07/28/2009 Rheumatoid arthritis 07/28/2009 Overview: ICD10 Diagnosis Term Volunteer Services Supervisor Utility Encounter for long-term (current) use [...] in contact with No / Unsure 03/09/2020 8:37 AM SUPPORT SERVICES MANAGER someone who was confirmed or suspected to have Coronavirus / COVID-19? documented as of this encounter Last Filed Vital Signs Vital Sign Reading Time Taken Comments Blood Pressure - - Pulse - - Temperature - - Respiratory Rate - - Oxygen Saturation - - Inhaled Oxygen Concentration - - Weight 89.8 kg (198 lb) 03/09/2020 8:38 AM SUPPORT SERVICES MANAGER Height - - Body Mass Index 36.21 05/21/2019 9:13 AM CDT documented in this encounter Progress Notes Brittny Montero - 03/09/2020 8:45 AM CSTOCT mac done OU Brittny Montero 03/09/2020 8:42 AM Carmelina Hagan MD - 03/09/2020 8:45 AM CST Cc: No chief complaint on file. HPI: Tamy Martinez is a 59 year old diabetic female with history of PRP OU and PPV OS who was lost to follow up since 02/2019 and is referred back by Dr Oates for continuation of management. States that she has trouble seeing in bright light and with driving at night. Has got prescription for glasses last week, but has not yet got her glasses. Vision of the left eye is worse than the righteye. Occasional sharp pain on the right side. Had a heart attack and two heart stents put in last week in [facility] in [place]. DM since 2008. Is taking insulin. Is well controlled (per patient ). Past Medical History: Diagnosis Date Anemia Autoimmune disorder DM (diabetes mellitus) GERD (gastroesophageal reflux disease) HTN (hypertension) Osteoarthrosis, unspecified whether generalized or localized, lower leg RA (rheumatoid arthritis) Seropositive, erosive with RF of 265 and CCP titer of 71 Right knee pain 08/05/2015 Urinary incontinence occasional stress incont Vitreous hemorrhage of left eye Review of Systems Reviewed ROS done by the film technician during this encounter and there are no changes. Assessment ICD-10-CM ICD-9-CM 1. Proliferative diabetic retinopathy of both eyes with macular edema associated with type 2 diabetes mellitus E11.3513 250.50 362.07 362.02 2. Diabetic macular edema of both eyes E11.311 250.50 362.07 362.01 3. Hypertensive retinopathy of both eyes H35.033 362.11 4. Senile nuclear sclerosis, bilateral H25.13 366.16 5. Long-term use of Plaquenil Z79.899 V58.69 6. Dry eyes, bilateral H04.123 375.15 07/22/2015 FA delay in starting the timer, no macular or peripheral ischemia was noted, CHANGE CONTROL ANALYST OCT no definite fluid in both eyes 03/08/2016 OCT Trace IRF not affecting the fovea OU 01/21/2019 OCT OD: tr IRF involving the fovea OS: perifoveal IRF not involving the fovea OCT 03/09/2020 OD: tr IRF involving the fovea (stable) OS: perifoveal IRF not involving the fovea (stable) Plan` 1. Diabetic macular edema of both eyes - s/p Avastin X2 OD - Considering a new heart attack last week (03/01/2020) will hold off on injections for at least 3 months. POCT HBA1C (%) Date Value 01/13/2012 11.0 (A) HGB A1C (% NGSP) Date Value 05/16/2017 8.8 (H) 2. Proliferative diabetic retinopathy of both eyes - s/p PPV/EL/AFx OS 01/05/19 for progressing VH - s/p PRP OS 12/14/2018 - s/p PRP OD 02/27/2019 - Stable regressed retinopathy OU 03/09/2020 3. Hypertensive Retinopathy, both eyes - NFL heme, IRH and CWS on exam - BP control recommended 4. Senile nuclear sclerosis, bilateral - nvs 5. Long-term use of Plaquenil - for RA - Has been off the plaquenil since 2-3 years ago - taking MTX and tofacitinib (Xeljanx XR) 6. Dry eyes, bilateral - compliant with lid hygiene and shampoo scrubbing - Using ATs DISPO: 2 months DFE/OCT Carmelina Chaidez MD 03/09/2020 9:05 AM documented in this encounter Plan of Treatment Date Type Specialty Care Team Description 03/19/2020 Office Visit Allergy & Immunology: Emile Pérez MD Internal Medicine [address] [facility] [address] [place], [place] [address] 05/11/2020 Office Visit Ophthalmology Carmelina Chaidez M D [address] [place] [phone] Health Maintenance Due Date Last Done Comments [...] of this encounter Implants Implanted Type Area Vice President Of Manufacturing Device Shelf Model / Identifier Expiration Date Ser ial / Lot Pal[employer] Bone [employer]ement CEMENT Right: Biomet 05/13 [id number] / Implanted: Qty: 1 on 05/15/2017 by Rex Argueta MD at [facility] Knee 8 [id number] / [id number] Ps Open Box Femoral-Right KNEE Right: Biomet 04/2026 [id number] / Implanted: Qty: 1 on 05/15/2017 by Rex Argueta MD at [facility] Knee J [id number] / [id number] Adc Plate Tibial Cruciate 67 Mm - [id number] PLATE Right: Biomet 01/16/2027 [id number] / Implanted: Qty: 1 on 05/15/2017 by Rex Argueta MD at [facility] Knee J [id number] / [id number] Adc Patella 31 X 8 Mm - [id number] Right: Biomet 12/31/2021 [id number] / Implanted: Qty: 1 on 05/15/2017 by Rex Argueta MD at [facility] Knee 6 [id number] / [id number] Bearing Tib 10 X 63/67 Mm #[id number] - [id number] Right: Biomet 01/24/2022 [id number] / Implanted: Qty: 1 on 05/15/2017 by Rex Argueta MD at [facility] Knee 7 [id number] / [id number] documented as of this encounter Procedures Procedure Name Priority Date/Time Associated Diagnosis Comme nts OU SPECTRALIS OCT Routine 03/09/2020 Diabetic macular edema Results for this MACULA, BOTH EYES of both eyes procedure are in the results section . documented in this encounter Results OU SPECTRALIS OCT MACULA, BOTH EYES (03/09/2020) Impressions Performed At OD: tr IRF involving the fovea OS: perifoveal IRF not involving the fovea documented in this encounter Visit Diagnoses Diagnosis Proliferative diabetic retinopathy of yelena th eyes with macular edema associated with type 2 diabetes mellitus - Primary Diabetic macular edema of both eyes Type II or unspecified type diabetes ken litus with ophthalmic manifestations, not stated as uncontrolled Hypertensive retinopathy of both eyes Hypertensive retinopathy Senile nuclear sclerosis, bilateral Long-term use of Plaquenil Dry eyes, bilateral Tear film insufficiency, unspecified documented in this encounter Insurance Payer Benefit Plan Subscriber ID Effective Phone Address Typ e / Group Dates [facility] BCBS OF [id number] 2012-Pres [phone] [address] PPO/POS [place] [facility] ent [id number] [place] [address] [facility] [id number] 2018-Prestyrone Medic aid HEALTHCARE COMM STAR PLUS nt PLAN - MANAGED MEDICAID documented as of this encounter
--- OUTSIDE RECORDS SUMMARY | 2020-04-13 10:25 | XMS REPORT | Summary of Care ---
:1960 Author Organization [facility] Address [address] [place] [address] Care Team Providers Name Role Phone Tyesha Galaviz Primary Care Provider Reason for Visit Auth/Cert Status Reason Specialty Diagnoses / Procedures Referred By C ontact Referred To Contact Radiology Ad[facility] X-Ray [address] [place] [phone] Phone: Fax: Encounter Details Date Type Department Care Team Description 03/12/2020 Hospital Encounter [facility] Radiolog y Arrived [facility] [address] [place] [address] [place] [address] Allergies Active Allergy Reactions Severity Noted Date Comments Iodine And Iodide Containing Products Rash 01/2016 documented as of this encounter (statuses as of 03/13/2020) Medications Medication Sig Dispensed Refills Start Date End Date Status Dextran Place 1 Drop in 0 Susp ended 70-Hypromellose both eyes as (ARTIFICIAL TEARS) needed. Dpet cycloSPORINE Place 1 Drop in 0 S uspended (RESTASIS) 0.05 % both eyes every drops 12 (twelve) hours. LANTUS SOLOSTAR U-100 inject 26 Units 2 01/17/2019 Suspended INSULIN 100 unit/mL (3 under the skin mL) injection every morning. tofacitinib (XELJANZ Take 11 mg by 90 tablet 1 02/27/2019 Suspended XR) 11 mg mouth daily. [id number]: Rheumatoid arthritis, seropositive, Therapeutic drug monitoring Additional Information TRAMADOL 50 mg TAKE 1 TABLET BY 120 tablet 0 05/13/2019 Suspended tabletIndications: Rheumatoid MOUTH UP TO FOUR arthritis, seropositive TIMES DAILY NEEDED FOR PAIN Additional Information methotrexate 5 mg tablet Take 15 mg by mouth weekly. 0 Suspended losartan 25 mg tablet Take 25 mg by mouth daily. 0 Suspended clopidogreL (PLAVIX) 75 mg tablet Take 75 mg by mouth daily. 0 Suspended atorvastatin 40 mg tablet Take 40 mg by mouth at bedtime. 0 Suspended aspirin 81 mg chewable tablet Take 81 mg by mouth daily. 0 Suspended documented as of this encounter (statuses as of 03/13/2020) Active Problems Problem Noted Date Chest pain due to CAD 03/12/2020 Proliferative diabetic retinopathy of both eyes with m acular edema 01/21/2019 associated with type 2 diabetes mellitus Overview: Added automatically from request for akshat henning [id number] NSVT (nonsustained ventricular tachycardia) 05/19/2017 Total knee [...] of hand 11/07/2012 Overview: ICD10 Diagnosis Term Lpn Home Health Utility Diabetic peripheral neuropathy 11/06/2012 Diabetes mellitus type 2, uncontrolled, without compli cations 01/13/2012 Overview: ICD10 Diagnosis Term Lpn Home Health Utility Obesity 01/13/2012 Overview: ICD10 Diagnosis Term Lpn Home Health Utility HLD (hyperlipidemia) 01/13/2012 Overview: ICD10 Diagnosis Term Lpn Home Health Utility Elevated BP 01/13/2012 Mild vitamin D deficiency 01/13/2012 Steroid long-term use 01/13/2012 Encounter for long-term (current) use of other medicat ions 07/19/2011 Raynaud's syndrome 07/28/2009 Rheumatoid arthritis 07/28/2009 Overview: ICD10 Diagnosis Term Lpn Home Health Utility Encounter for long-term (current) use of steroids 07/11 Chronic pain syndrome 07/28/2009 documented as of this encounter (statuses as of 03/13/2020) Immunizations Name Administration Dates Next Due Zoster Vaccine Recombinant 03/25/2019, 01/18/2019 documented as of this encounter Social History Tobacco Use Types Packs/Day Years Used Date Never Smoker Smokeless Tobacco: Never Used Alcohol Use Drinks/Week oz/Week Comments No Sex Assigned at Date Recorded Not on file COVID-19 Exposure Response Date Recorded In the last month, have you been in contact with No / Unsure 03/12/2020 7:18 PM STATION GATEMAN someone who was confirmed or suspected to have Coronavirus / COVID-19? documented as of this encounter Last Filed Vital Signs Not on filedocumented in this encounter Plan of Treatment Date Type Specialty Care Team Description 03/16/2020 Office Visit Cardiology Rachel Mckeon MD [address] [phone] 03/19/2020 Office Visit Allergy & Immunology: Emile Pérez MD Internal Medicine [address] [facility] R [address] [place], [place] [address] 05/11/2020 Office Visit Ophthalmology Carmelina Chaidez M D [address] [place] [phone] Health Maintenance Due Date Last Done Comments URINE MICROALBUMIN 1972 FOOT EXAM 1980 DTaP,Tdap,and Td Vaccines (1 1981 - Tdap) COLON CANCER SCREENING 2012 ANNUAL FIT/FOBT COLON CANCER SCREENING FIT 2012 DNA EVERY 3 YEARS COLON CANCER SCREENING 2012 SIGMOIDOSCOPY EVERY 5 YEARS COLONOSCOPY 2012 Colorectal Cancer Screening 2012 HgA1C 11/16/2017 05/16/2017, 01/13/2012 Breast Cancer Screening 02/01/2018 02/01/2017 (MAMMOGRAM) INFLUENZA VACCINE (#1) 2019 PAP SMEAR 01/27/2020 01/26/2017 CREATININE (SERUM) 05/20/2020 05/21/2019, 02/28/2019, 02/27/2019, Additional history exists Depression Screening 05/20/2020 05/21/2019 LDL-C 05/20/2020 05/21/2019, 02/27/2019, 01/15/2019, Additional history exists EYE EXAM 03/09/2021 03/09/2020, 03/03/2020, 02/27/2019, Additional history exists HEPATITIS C (HCV) SCREEN Completed 02/27/2019, 12/27/2018, 12/27/2016, Additional history exists Zoster Recombinant Vaccine Completed 03/25/2019, 9 (SHINGRIX) PNEUMOCOCCAL 0-64 YEARS Aged Out No longe r eligible COMBINED SERIES based on patient 's age to complete this topic documented as of this encounter Implants Implanted Type Area Partridge Farmer Device Shelf Model / Identifier Expiration Date Ser ial / Lot Palacos R [employer] G Bone Cement CEMENT Right: Biomet 05/13 [id number] / Implanted: Qty: 1 on 05/15/2017 by Rex Argueta MD at [facility] Knee 8 [id number] / [id number] Ps Open Box Femoral-Right KNEE Right: Biomet 04/2026 [id number] / Implanted: Qty: 1 on 05/15/2017 by Rex Argueta MD at [facility] Knee J [id number] / [id number] Adc Plate Tibial Cruciate 67 Mm - [id number] PLATE Right: Biomet 01/16/2027 [id number] / Implanted: Qty: 1 on 05/15/2017 by Rex Argueta MD at [facility] Knee J [id number] / [id number] Adc Patella 31 X 8 Mm - [id number] Right: Biomet 12/31/2021 [id number] / Implanted: Qty: 1 on 05/15/2017 by Rex Argueta MD at [facility] Knee 6 [id number] / [id number] Bearing Tib 10 X 63/67 Mm #[id number] - [id number] Right: Biomet 01/24/2022 [id number] / Implanted: Qty: 1 on 05/15/2017 by Rex Argueta MD at [facility] Knee 7 [id number] / [id number] documented as of this encounter Procedures Procedure Name Priority Date/Time Associated Diagnosis Comme nts XR CHEST 2 VW Routine 03/12/2020 4:06 PM Mechanical and motor Results for this STATION GATEMAN problems with procedure are in the internal organs results sect ion. documented in this encounter Results XR CHEST 2 VW (03/12/2020 4:06 PM STATION GATEMAN) Specimen Impressions Performed At Impression: PACS/VR/DOSE No acute abnormalities evident. RL: 460 End of Report Electronically signed by Felton Moore MD at 020 8:00 PM Narrative Performed At This result has an attachment that is no t available. Ordering Physician: TYESHA GALAVIZ PACS/VR/DOSE History: Cough Technique: Chest, 2 views Comparison: None Findings: The lungs are clear. No pleural effusions are evident. Heart size is normal. The superior mediastinal silhouette is unremar kable for age. There are mild degenerative changes of the spine. Surgical c lips are seen within the right upper quadrant of the abdomen. Procedure Note [facility], Radiant Results Inft User - 2019 8:01 PM STATION GATEMAN Ordering Physician: TYESHA GALAVIZ History: Cough Technique: Chest, 2 views Comparison: None Findings: The lungs are clear. No pleural effusion s are evident. Heart size is normal. The superior mediastinal silhoue tte is unremarkable for age. There are mild degenerative changes of the spi ne. Surgical clips are seen within the right upper quadrant of the abdomen. IMPRESSION Impression: No acute abnormalities evident. RL: 460 End of Report Performing Organization Address City/State/Zipcode Phone Number PACS/VR/DOSE documented in this encounter Visit Diagnoses Diagnosis Mechanical and motor problems with inter nal organs documented in this encounter Insurance Payer Benefit Plan Subscriber ID Effective Phone Address Typ e / Group Dates [place] [id number] 2012-Pres [phone] [address] PPO/POS [place] - OUT ent [phone] [id number] [place] [address] [facility] [id number] 2018-Prese Medic aid HEALTHCARE COMM STAR PLUS nt PLAN - MANAGED MEDICAID documented as of this encounter
--- OUTSIDE RECORDS SUMMARY | 2020-04-13 10:25 | XMS REPORT | Summary of Care ---
:1960 Author Organization [facility] Address [address] [place] [address] Care Team Providers Name Role Phone Christiano Núñez Primary Care Provider Reason for Visit Reason Comments DME Encounter Details Date Type Department Care Team Description 03/09/2020 Office Visit [facility] Eye El Joana Jordan MD [address] [place] [address] [phone] Proliferative diabetic retinopathy of yelena th eyes with macular edema associated with type 2 diabetes mellitus (Primary Dx); [facility] [place] Melba Vora MD [address] [facility] [place] [address] Diabetic macular edema of both eyes; [facility] Carmelina Chaidez MD [address] [place] [address] Hypertensive retinopathy of both eyes; [facility] Senile nuc lear sclerosis, bilateral; South, Entrance B Long-term use of Plaquenil; [place], [place] Dry eyes, bi lateral [phone] Allergies [...] 02/27/2019 Active XR) 11 mg mouth daily. [id number]: Rheumatoid arthritis, seropositive, Therapeutic drug monitoring TRAMADOL [...] Added automatically from request for akshat henning [id number] NSVT (nonsustained ventricular tachycardia) 05/19/2017 Total knee [...] of hand 11/07/2012 Overview: ICD10 Diagnosis Term Schedule Planning Manager Utility Diabetic peripheral neuropathy 11/06/2012 Diabetes mellitus type 2, uncontrolled, without compli cations 01/13/2012 Overview: ICD10 Diagnosis Term Schedule Planning Manager Utility Obesity 01/13/2012 Overview: ICD10 Diagnosis Term Schedule Planning Manager Utility HLD (hyperlipidemia) 01/13/2012 Overview: ICD10 Diagnosis Term Schedule Planning Manager Utility Elevated BP 01/13/2012 Mild vitamin D deficiency 01/13/2012 Steroid long-term use 01/13/2012 Encounter for long-term (current) use of other medicat ions 07/19/2011 Raynaud's syndrome 07/28/2009 Rheumatoid arthritis 07/28/2009 Overview: ICD10 Diagnosis Term Schedule Planning Manager Utility Encounter for long-term (current) use [...] with No / Unsure 03/09/2020 8:37 AM TRANSFUSION NURSE someone who was confirmed or suspected to have Coronavirus / COVID-19? documented as of this encounter Last Filed Vital Signs Vital Sign Reading Time Taken Comments Blood Pressure - - Pulse - - Temperature - - Respiratory Rate - - Oxygen Saturation - - Inhaled Oxygen Concentration - - Weight 89.8 kg (198 lb) 03/09/2020 8:38 AM TRANSFUSION NURSE Height - - Body Mass Index 36.21 [...] heart stents put in last week in [facility] in [place]. DM since 2008. Is taking insulin. Is [...] of Systems Reviewed ROS done by the automotive refinish technician during this encounter and there are [...] no macular or peripheral ischemia was noted, APICULTURE TEACHER OCT no definite fluid in both eyes [...] Pérez MD Internal Medicine [address] [facility] R [address] [place], [place] [address] 05/11/2020 Office Visit Ophthalmology Carmelina Chaidez M D [address] [place] [phone] Health Maintenance Due Date Last Done [...] of this encounter Implants Implanted Type Area Dry Janitor Device Shelf Model / Identifier Expiration Date Ser ial / Lot Palacos R [employer] Bone Cement CEMENT Right: Biomet 05/13 [id number] / Implanted: Qty: 1 on 05/15/2017 by Rex Argueta MD at [facility] Knee 8 [id number] / [id number] Ps Open Box Femoral-Right KNEE Right: Biomet 04/2026 [id number] / Implanted: Qty: 1 on 05/15/2017 by Rex Argueta MD at [facility] Knee J [id number] / [id number] Adc Plate Tibial Cruciate 67 Mm - [id number] PLATE Right: Biomet 01/16/2027 [id number] / Implanted: Qty: 1 on 05/15/2017 by Rex Argueta MD at [facility] Knee J [id number] / [id number] Adc Patella 31 X 8 Mm - [id number] Right: Biomet 12/31/2021 [id number] / Implanted: Qty: 1 on 05/15/2017 by Rex Argueta MD at [facility] Knee 6 [id number] / [id number] Bearing Tib 10 X 63/67 Mm #[id number] - [id number] Right: Biomet 01/24/2022 [id number] / Implanted: Qty: 1 on 05/15/2017 by Rex Argueta MD at [facility] Knee 7 [id number] / [id number] documented as of this encounter Procedures Procedure [...] Phone Address Typ e / Group Dates [facility] BCBS OF [id number] 2012-Pres [phone] [address] PPO/POS [place] [facility] ent [id number] [place] [address] [facility] [id number] 2018-Prestyrone Medic aid HEALTHCARE COMM STAR PLUS nt PLAN - MANAGED MEDICAID documented as of this encounter
--- OUTSIDE RECORDS SUMMARY | 2020-04-13 10:25 | XMS REPORT | Summary of Care ---
:1960 Author Organization [facility] Address [address] [place] [address] Care Team Providers Name Role Phone Pcp, Patient Does Not Have A Primary Care Provider +[id number] [phone] Núñez, E Primary Care Provider Encounter Details Date Type Department Care Team Description Orders Only [facility] Doctor Unassigned, No [address] [facility] [place] [place] [address] [address] [place] [address] Allergies Active Allergy Reactions Severity Noted Date Comments Iodine And Iodide Containing Products Rash 01/2016 documented as of this encounter (statuses as of 03/12/2020) Medications No known medicationsdocumented as of this encounter (statuses as of 03/12/2020) Active Problems Problem Noted Date Proliferative diabetic retinopathy of both eyes with m acular edema 01/21/2019 associated with type 2 diabetes mellitus Overview: Added automatically from request for akshat henning [id number] NSVT (nonsustained ventricular tachycardia) 05/19/2017 Total knee [...] of hand 11/07/2012 Overview: ICD10 Diagnosis Term Managed Care Analyst Utility Diabetic peripheral neuropathy 11/06/2012 Diabetes mellitus type 2, uncontrolled, without compli cations 01/13/2012 Overview: ICD10 Diagnosis Term Managed Care Analyst Utility Obesity 01/13/2012 Overview: ICD10 Diagnosis Term Managed Care Analyst Utility HLD (hyperlipidemia) 01/13/2012 Overview: ICD10 Diagnosis Term Managed Care Analyst Utility Elevated BP 01/13/2012 Mild vitamin D deficiency 01/13/2012 Steroid long-term use 01/13/2012 Encounter for long-term (current) use of other medicat ions 07/19/2011 Raynaud's syndrome 07/28/2009 Rheumatoid arthritis 07/28/2009 Overview: ICD10 Diagnosis Term Managed Care Analyst Utility Encounter for long-term (current) use of steroids 07/11 Chronic pain syndrome 07/28/2009 documented as of this encounter (statuses as of 03/12/2020) Social History Tobacco Use Types Packs/Day Years Used Date Never Assessed Sex Assigned at Date Recorded Not on file COVID-19 Exposure Response Date Recorded In the last month, have you been in contact with No / Unsure 03/09/2020 8:37 AM HAIRCUTTER someone who was confirmed or suspected to have Coronavirus / COVID-19? documented as of this encounter Last Filed Vital Signs Not on filedocumented in this encounter Plan of Treatment Date Type Specialty Care Team Description 03/16/2020 Office Visit Cardiology Rachel Mckeon MD [address] [place] [phone] 03/19/2020 Office Visit Allergy & Immunology: Emile Pérez MD Internal Medicine [address] [place], [place] [address] 05/11/2020 Office Visit Ophthalmology Carmelina Chaidez M D [address] [place] [phone] Health Maintenance Due Date Last Done [...] this encounter Implants Implanted Type Area Assistant Professor Of Physics Device Shelf Model / Identifier Expiration Date Ser ial / Lot Palacos R [employer] Bone Cement CEMENT Right: Biomet 05/13 [id number] / Implanted: Qty: 1 on 05/15/2017 by Rex Argueta MD at [facility] Knee 8 [id number] / [id number] Ps Open Box Femoral-Right KNEE Right: Biomet 04/2026 [id number] / Implanted: Qty: 1 on 05/15/2017 by Rex Argueta MD at [facility] Knee J [id number] / [id number] Adc Plate Tibial Cruciate 67 Mm - [id number] PLATE Right: Biomet 01/16/2027 [id number] / Implanted: Qty: 1 on 05/15/2017 by Rex Argueta MD at [facility] Knee J [id number] / [id number] Adc Patella 31 X 8 Mm - [id number] Right: Biomet 12/31/2021 [id number] / Implanted: Qty: 1 on 05/15/2017 by Rex Argueta MD at [facility] Knee 6 [id number] / [id number] Bearing Tib 10 X 63/67 Mm #[id number] - [id number] Right: Biomet 01/24/2022 [id number] / Implanted: Qty: 1 on 05/15/2017 by Rex Argueta MD at [facility] Knee 7 [id number] / [id number] documented as of this encounter Procedures Procedure Name Priority Date/Time Associated Diagnosis Comme nts REFERRAL- Routine HAIRCUTTER REQUEST/RESPONSE documented in this encounter Results Not on filedocumented in this encounter
--- OUTSIDE RECORDS SUMMARY | 2020-04-13 10:27 | XMS REPORT | Summary of Care ---
:1960 Author Organization [facility] - [facility] Address [address] [place] [id number] Care Team Providers Name Role Phone Sánchez Queen Primary Care Provider Reason for Visit Reason Comments Transition Of Care Encounter Details Date Type Department Care Team Description 03/16/2020 Transition of Care [facility] Della Cash [facility]- RN [address] [address] Allergies Active Allergy Reactions Severity Noted Date Comments Iodine And Iodide Containing Products Rash 01/2016 documented as of this encounter (statuses as of 03/16/2020) Medications Medication Sig Dispensed Refills Start Date End Date Status Dextran Place 1 Drop in 0 Acti ve 70-Hypromellose both eyes as (ARTIFICIAL TEARS) needed. Dpet cycloSPORINE Place 1 Drop in 0 A ctive (RESTASIS) 0.05 % both eyes every 12 drops (twelve) hours. LANTUS SOLOSTAR inject 26 Units 2 01/17/2019 Active U-100 INSULIN 100 under the skin unit/mL (3 mL) every morning. injection tofacitinib (XELJANZ Take 11 mg by mouth 90 tablet 1 9 Active XR) 11 mg daily. [id number]: Rheumatoid arthritis, seropositive, Therapeutic drug monitoring methotrexate 5 mg Take 15 mg by mouth 0 Active tablet weekly. atorvastatin 40 mg Take 40 mg by mouth 0 Active tablet at bedtime. isosorbide Take 1 tablet by 30 tablet 3 03/13/2020 A ctive mononitrate 30 mg 24 mouth daily. hr tabletIndications: Chest pain, unspecified type metoprolol tartrate Take 0.5 tablets by 30 tablet 3 03/13/2020 07/11/2020 Active 25 mg mouth 2 (two) times tabletIndications: daily for 120 days. Chest pain, unspecified type nitroglycerin 0.[address] 1 tablet 1 Bottle 3 03/13/2020 Active sublingual under the tongue tabletIndications: every 5 (five) Chest pain, minutes as needed unspecified type for Chest pain. dextromethorphan-gua Take 5 mL by mouth 1 Bottle 2 03/13/2020 Active ifenesin 10-100 mg/5 every 6 (six) hours mL as needed for solutionIndications: Cough. Cough clopidogreL (PLAVIX) Take 1 tablet by 90 tablet 3 03/13/2020 Active 75 mg mouth daily. tabletIndications: Chest pain, unspecified type, Chest pain due to CAD aspirin 81 mg Take 1 tablet by 90 tablet 3 03/13/2020 Active chewable mouth daily. tabletIndications: Chest pain, unspecified type, Chest pain due to CAD losartan 25 mg Take 1 tablet by 30 tablet 2 03/13/2020 Active tabletIndications: mouth daily. Chest pain, unspecified type, Chest pain due to CAD gabapentin 300 mg Take 300 mg by 0 Active capsule mouth 2 (two) times daily. foLIC acid 1 mg Take 1 mg by mouth 0 Active tablet daily. except on date of methotrexate insulin aspart inject under the 0 Active (NOVOLOG FLEXPEN skin. Per sliding U-100 INSULIN SC) scale documented as of this encounter (statuses as of 03/16/2020) Active Problems Problem Noted Date Chest pain due to CAD 03/12/2020 Proliferative diabetic retinopathy of both eyes with m acular edema 01/21/2019 associated with type 2 diabetes mellitus Overview: Added automatically from request for akshat juvencio [id number] NSVT (nonsustained ventricular tachycardia) 05/19/2017 Total knee [...] of hand 11/07/2012 Overview: ICD10 Diagnosis Term Stunner Animal Utility Diabetic peripheral neuropathy 11/06/2012 Diabetes mellitus type 2, uncontrolled, without compli cations 01/13/2012 Overview: ICD10 Diagnosis Term Stunner Animal Utility Obesity 01/13/2012 Overview: ICD10 Diagnosis Term Stunner Animal Utility HLD (hyperlipidemia) 01/13/2012 Overview: ICD10 Diagnosis Term Stunner Animal Utility Elevated BP 01/13/2012 Mild vitamin D deficiency 01/13/2012 Steroid long-term use 01/13/2012 Encounter for long-term (current) use of other medicat ions 07/19/2011 Raynaud's syndrome 07/28/2009 Rheumatoid arthritis 07/28/2009 Overview: ICD10 Diagnosis Term Stunner Animal Utility Encounter for long-term (current) use of steroids 07/11 Chronic pain syndrome 07/28/2009 documented as of this encounter (statuses as of 03/16/2020) Immunizations Name Administration Dates Next Due Influenza Virus Vaccine 11/12/2019 Zoster Vaccine Recombinant 03/25/2019, 01/18/2019 documented as of this encounter Social History Tobacco Use Types Packs/Day Years Used Date Never Smoker Smokeless Tobacco: Never Used Alcohol Use Drinks/Week oz/Week Comments No Sex Assigned at Date Recorded Not on file COVID-19 Exposure Response Date Recorded In the last month, have you been in contact with No / Unsure 03/16/2020 8:45 AM PHARMACY RESOURCE TECH someone who was confirmed or suspected to have Coronavirus / COVID-19? documented as of this encounter Last Filed Vital Signs Not on filedocumented in this encounter Miscellaneous Notes Telephone Encounter - Della Cash RN - 03/16/2020 10:58 AM CST TRANSITIONAL CARE MANAGEMENT ASSESSMENT 03/16/2020 Tamy Martinez [id number] Tamy Martinez is a 59 year old /White female was admitted on 03/12/20 to [facility] AT [address] She was discharged on 03/13/20 with discharge disposition of HR- Routine Discharge. Admitting Physician: Juana Zamora Discharge Diagnosis: Typicalchest painwith negative troponin and EKG Linked Episodes Type: Episode: Status: Noted: Resolved: Last update: Updated by: TRANSITION OF CARE TCM Active 03/13/2020 03/16/2020 10:58 AM Della Cash, RN Comments:03/13/2020 TCM Jtg-[id number] outreach documentation: Discharge Assessment Chart Assessed: 03/16/20 TCM Outreach Completed: 03/16/20 Do you have a few minutes to speak with me about how you are doing at home?: Yes Discharge Instructions Do you understand your at-home instructions?: Yes Medications Have you filled your prescriptions and do you have them in your home? : Yes Do you know how to take your medications?: Yes Supplies Did you receive applicable home medical supplies/equipment?: N/A Follow Up Appointment Has a follow up appointment been scheduled?: Yes Do you have any questions about your follow up appointments?: No Are you able to get to your appointment? Who will be taking you?: Yes(self/daughter) Home Health Assistance Has the home health nurse contacted you since you've been home?: N/A Survey - Recognition Is there anything you would like to share about your recent hospitalization, or anyone you would like to recognize?: No Do you have any suggestions for improvement?: No Do you have any other questions or concerns at this time?: No Future Appointments: Future Appointments Provider Department Dept Phone 03/19/2020 10:30 AM Carlyle Pérez MD [phone] 04/27/2020 10:30 AM [facility] [phone] 05/11/2020 9:30 AM Carmelina Chaidez MD [facility] [phone] MACY RESOURCE TECH documented in this encounter Plan of Treatment Date Type Specialty Care Team Description 03/19/2020 Office Visit Allergy & Immunology: Emile Pérez MD Internal Medicine [address] [facility] R [address] [place] [phone] 04/27/2020 Office Visit Cardiology Rachel Mckeon MD [address] [place], [place] [phone] 05/11/2020 Office Visit Ophthalmology Carmelina Chaidez M D [address] [place] [phone] Health Maintenance Due Date Last Done Comments PNEUMOCOCCAL 0-64 YEARS COMBINED 1968 SERIES (1 of 3 - PCV13) URINE MICROALBUMIN 1972 FOOT EXAM 1980 DTaP,Tdap,and Td Vaccines (1 - 1981 Tdap) COLON CANCER SCREENING ANNUAL 2012 FIT/FOBT COLON CANCER SCREENING FIT DNA 2012 EVERY 3 YEARS COLON CANCER SCREENING 2012 SIGMOIDOSCOPY EVERY 5 YEARS COLONOSCOPY 2012 Colorectal Cancer Screening 2012 Breast Cancer Screening 02/01/2018 02/01/2017 (MAMMOGRAM) PAP SMEAR 01/27/2020 01/26/2017 HgA1C 09/09/2020 03/12/2020, 05/16/2017, 01/13/2012 EYE EXAM 03/09/2021 03/09/2020, 03/03/2020, 02/27/2019, Additional history exists CREATININE (SERUM) 03/13/2021 03/13/2020, 03/12/2020, 05/21/2019, Additional history exists LDL-C 03/13/2021 03/13/2020, 05/21/2019, 02/27/2019, Additional history exists Depression Screening 03/16/2021 03/16/2020 HEPATITIS C (HCV) SCREEN Completed 02/27/2019, 12/27/2018, 12/27/2016, Additional history exists Zoster Recombinant Vaccine Completed 03/25/2019, 9 (SHINGRIX) INFLUENZA VACCINE Completed 11/12/2019 documented as of this encounter Implants Implanted Type Area Banquet Director Device Shelf Model / Identifier Expiration Date Ser ial / Lot [employer] CEMENT Right: Biomet 05/13 [id number] / Implanted: Qty: 1 on 05/15/2017 by Rex Argueta MD at [facility] Knee 8 [id number] / [id number] Open Box Femoral-Right KNEE Right: Biomet 04/2026 [id number] / Implanted: Qty: 1 on 05/15/2017 by Rex Argueta MD at [facility] Knee J [id number] / [id number] Adc Plate Tibial Cruciate 67 Mm - [id number] PLATE Right: Biomet 01/16/2027 [id number] / Implanted: Qty: 1 on 05/15/2017 by Rex Argueta MD at [facility] Knee J [id number] / [id number] Adc Patella 31 X 8 Mm - [id number] Right: [employer]omet 12/31/2021 [id number] / Implanted: Qty: 1 on 05/15/2017 by Rex Argueta MD at [facility] Knee [id number] / [id number] Bearing Tib 10 X 63/67 Mm #[id number] - [id number] Right: Biomet 01/24/2022 [id number] / Implanted: Qty: 1 on 05/15/2017 by Rex Argueta MD at [facility] Knee [id number] / [id number] documented as of this encounter Results Not on filedocumented in this encounter Insurance Payer Benefit Plan Subscriber ID Effective Phone Address Typ e / Group Dates [place] [id number] 2012-Pres [phone] [address] PPO/POS [place] - OUT ent [phone] [id number] [place] [address] [facility] [id number] 2018- Medic [facility] COMM STAR PLUS nt PLAN - MANAGED MEDICAID documented as of this encounter
--- OUTSIDE RECORDS SUMMARY | 2020-04-13 10:27 | XMS REPORT | Summary of Care ---
:1960 Author Organization [facility] Address [address] [place] [id number] Care Team Providers Name Role Phone Tyesha Galaviz Primary Care Provider Reason for Referral (Routine) Status Reason Specialty Diagnoses / Referred By Referred To Procedures Contact Contact New Request IM-CARDIOVASCULA Diagnoses Chest pain, unspecified type Juana Zamora, Cristo DISEASE Procedures Discharge Follow-Up: Specialty Service IM-CARDIOVASCULAR DISEASE; 2 Weeks [address] [place] [phone] (Routine) Status Reason Specialty Diagnoses / Referred By Contact Refe rred To Procedures Contact New Request Diagnoses Chest pain, unspecified type Juana Zamora MD [place], [place] Procedures Discharge Follow-up: PCP TYESHA GALAVIZ; 3-5 Days [address] [address] [place], [place] Phone: [phone] Fax: (Routine) Status Reason Specialty Diagnoses / Referred By Contact Refe rred To Procedures Contact New Request Cardiology Diagnoses Chest pain, unspecified type Juana Zamora MD Procedures Echocardiogram, Routine with Doppler Color [address] [place] [address] [phone] Phone: Reason for Visit Reason Comments Chest Pain Cough Shortness of Breath Auth/Cert Status Reason Specialty Diagnoses / Referred By Referred To Procedures Contact Contact Emergency Medicine [facility] [address] [place] [address] Fax: Encounter Details Date Type Department Care Team Description 03/12/2020 - Hospital Cardiology (Marah Bender, DO [address] [place] [address] Chest pain due to 03/13/2020 Encounter 9B) Juana Zamora MD [address] [place] [address] CAD [address] [place] [address] Allergies Active Allergy Reactions Severity Noted Date Comments Iodine And Iodide Containing Products Rash 01/2016 documented as of this encounter (statuses as of 03/13/2020) Medications Medication Sig Dispensed Refills Start Date End Date Status Dextran Place 1 Drop 0 Active 70-Hypromellose in both eyes (ARTIFICIAL TEARS) as needed. Dpet cycloSPORINE Place 1 Drop 0 Acti ve (RESTASIS) 0.05 % in both eyes drops every 12 (twelve) hours. LANTUS SOLOSTAR inject 26 2 01/17/2019 Act nevaeh U-100 INSULIN 100 Units under unit/mL (3 mL) the skin injection every morning. tofacitinib Take 11 mg 90 tablet 1 02/27/2019 Active (XELJANZ XR) 11 mg by mouth [id number]: daily. Rheumatoid arthritis, seropositive, Therapeutic drug monitoring TRAMADOL 50 mg TAKE 1 120 tablet 0 05/13/2019 Act nevaeh tabletIndications: TABLET BY Rheumatoid MOUTH UP TO arthritis, FOUR TIMES seropositive DAILY NEEDED FOR PAIN methotrexate 5 mg Take 15 mg 0 A ctive tablet by mouth weekly. atorvastatin 40 mg Take 40 mg 0 Active tablet by mouth at bedtime. isosorbide Take 1 30 tablet 3 03/13/2020 Active mononitrate 30 mg tablet by 24 hr mouth daily. tabletIndications: Chest pain, unspecified type metoprolol Take 0.5 30 tablet 3 03/13/2020 Active tartrate 25 mg tablets by 1 tabletIndications: mouth 2 Chest pain, (two) times unspecified type daily for [address] 1 1 Bottle 3 03/13/2020 A ctive mg sublingual tablet under tabletIndications: the tongue Chest pain, every 5 unspecified type (five) minutes as needed for Chest pain. dextromethorphan-g Take 5 mL by 1 Bottle 2 03/13/2020 Active uaifenesin 10-100 mouth every mg/5 mL 6 (six) solutionIndication hours as s: Cough needed for Cough. clopidogreL Take 1 90 tablet 3 03/13/2020 Active (PLAVIX) 75 mg tablet by tabletIndications: mouth daily. Chest pain, unspecified type, Chest pain due to CAD aspirin 81 mg Take 1 90 tablet 3 03/13/2020 Activ e chewable tablet by tabletIndications: mouth daily. Chest pain, unspecified type, Chest pain due to CAD losartan 25 mg Take 1 30 tablet 2 03/13/2020 Acti ve tabletIndications: tablet by Chest pain, mouth daily. unspecified type, Chest pain due to CAD insulin aspart inject 12 5 Each 3 09/01/2014 Disc ontinued (NOVOLOG FLEXPEN) Units under 0 100 unit/mL the skin 3 injectionIndicatio (three) ns: Type II or times daily unspecified type before diabetes mellitus meals. without mention of complication, uncontrolled ACCU-CHEK SOFTCLIX 2 (two) 11 01/09/2019 Discontinued LANCETS Misc times daily. 0 (Err or) BD INSULIN PEN USE QID 2 01/17/2019 Disc ontinued NEEDLE UF 31 gauge 0 ( Error) x 5/16" Ndle losartan 25 mg Take 25 mg 0 Disc ontinued tablet by mouth 1 (Reorder) daily. clopidogreL Take 75 mg 0 Discont inued (PLAVIX) 75 mg by mouth 1 (Reor ramon) tablet daily. aspirin 81 mg Take 81 mg 0 Disco ntinued chewable tablet by mouth 1 (Reo rder) daily. documented as of this encounter (statuses as of 03/13/2020) Active Problems Problem Noted Date Chest pain due to CAD 03/12/2020 Proliferative diabetic retinopathy of both eyes with m acular edema 01/21/2019 associated with type 2 diabetes mellitus Overview: Added automatically from request for akshat henning [id number] NSVT (nonsustained ventricular tachycardia) 05/19/2017 Total knee [...] of hand 11/07/2012 Overview: ICD10 Diagnosis Term Foil Cutter Utility Diabetic peripheral neuropathy 11/06/2012 Diabetes mellitus type 2, uncontrolled, without compli cations 01/13/2012 Overview: ICD10 Diagnosis Term Foil Cutter Utility Obesity 01/13/2012 Overview: ICD10 Diagnosis Term Foil Cutter Utility HLD (hyperlipidemia) 01/13/2012 Overview: ICD10 Diagnosis Term Foil Cutter Utility Elevated BP 01/13/2012 Mild vitamin D deficiency 01/13/2012 Steroid long-term use 01/13/2012 Encounter for long-term (current) use of other medicat ions 07/19/2011 Raynaud's syndrome 07/28/2009 Rheumatoid arthritis 07/28/2009 Overview: ICD10 Diagnosis Term Foil Cutter Utility Encounter for long-term (current) use of [...] in contact with No / Unsure 03/12/2020 7:25 PM SENIOR INSTRUCTOR someone who was confirmed or suspected to have Coronavirus / COVID-19? documented as of this encounter Last Filed Vital Signs Vital Sign Reading Time Taken Comments Blood Pressure 108/51 03/13/2020 4:09 PM SENIOR INSTRUCTOR Pulse 64 03/13/2020 4:09 PM SENIOR INSTRUCTOR Temperature 36.5 C (97.7 F) 03/13/2020 4:09 PM SENIOR INSTRUCTOR Respiratory Rate 16 03/13/2020 4:09 PM SENIOR INSTRUCTOR Oxygen Saturation 95% 03/13/2020 4:09 PM SENIOR INSTRUCTOR Inhaled Oxygen Concentration - - Weight 91.2 kg (201 lb 1.6 oz) 03/13/2020 5:18 AM SENIOR INSTRUCTOR Height 154.9 cm (5' 1") 03/12/2020 10:42 PM SENIOR INSTRUCTOR Body Mass Index 38 03/12/2020 10:42 PM SENIOR INSTRUCTOR documented in this encounter Discharge Instructions Micaela Villalpando RN - 03/13/2020 Patient Discharge Instructions Discharge date: 03/13/20 Discharge Diagnosis: CHEST PAIN Discharge Orders Discharge Follow-up: PCP TYESHA GALAVIZ; 3-5 Days To PCP: TYESHA GALAVIZ [[id number]] Patient's Preferred Location: Unknown Discharge Disposition: HOME, ([facility]) When (Patients with risk for unplanned readmission score over 16 or those noted as Hospital Dependent should follow up within 7 days with PCP or primary DX specialist): 3-5 Days Risk of Unplanned Readmission:( Score greater than 16 indicates high risk) 9 Cardiac (2 gm Sodium, Low Fat, Low Cholesterol) Diet; Texture: Regular. Texture Regular. Diabetic: IDDM Discharge Condition - Discharge Condition: FAIR Discharge Activity Discharge Activity: As Tolerated Discharge Follow-Up: Specialty Service IM-CARDIOVASCULAR DISEASE; 2 Weeks Specialty: IM-CARDIOVASCULAR DISEASE [4] Patient's Preferred Location: Unknown Discharge Disposition: HOME, ([facility]) When (Patients with risk for unplanned readmission score over 16 or those noted as Hospital Dependent should follow up within 7 days with PCP or primary DX specialist): 2 Weeks Risk of Unplanned Readmission:( Score greater than 16 indicates high risk) 9 VTE Propylaxis- Was ordered during hospitalization Discharge Instructions Order Comments: Ghassan Juan, We are sorry you have to be in hospital on the . You were evaluated for your chest pain and the work up so far does not show any concerns for acute heart attack.We tried to reach out to [facility] for your medical records but they were not available. We have started you on 2 new medications, Metoprolol and Imdur, please take all your medications as prescribed. Please follow up with your PCP in 3-5 days and your Infection Control Manager in 1-2 weeks. Please take Nitro asneeded for chest pain and if your chest pain persists, please come to ER. If you have trouble scheduling follow-up appointment, please call [facility] at [phone]. Thank you! Follow instructions as indicated below: Lifting: ADVISED BY YOUR PHYSICIAN Weight: In general, sudden weight laguna or losses should be reported to your provider. Cardiac patients should weigh daily and notify their provider for a weight gain of 3 pounds per day or 5 pounds per week. Tobacco Avoidance: Follow recommendations beloW Other discharge instructions: ADVISED BY YOUR PHYSICIAN Vaccines and/or immunizations received during this hospitalization: WILL FOLLOW UP AT MD OFFICE Take Home Medications These are medications ordered for you by your healthcare provider. Do not take any other medications or supplements unless advised by your healthcare provider. Current Discharge Medication List START taking these medications Details dextromethorphan-guaifenesin (ROBITUSSIN DM) 5 mL Take 5 mL by mouth every 6 (six) hours as needed for Cough. Qty: 1 Bottle, Refills: 2 Start date: 03/13/2020 Associated Diagnoses: Cough isosorbide mononitrate (IMDUR) 30 mg Take 30 mg by mouth daily. Qty: 30 tablet, Refills: 3 Start date: 03/13/2020 Associated Diagnoses: Chest pain, unspecified type metoprolol tartrate (LOPRESSOR) 12.5 mg Take 12.5 mg by mouth 2 (two) times daily. Qty: 30 tablet, Refills: 3 Start date: 03/13/2020, End date: 07/11/2020 Associated Diagnoses: Chest pain, unspecified type nitroglycerin (NITROSTAT) 0.[address] 0.4 mg under the tongue every 5 (five) minutes as needed forChest pain. Qty: 1 Bottle, Refills: 3 Start date: 03/13/2020 Associated Diagnoses: Chest pain, unspecified type CONTINUE these medications which have CHANGED Details aspirin 81 mg Take 81 mg by mouth daily. Qty: 90 tablet, Refills: 3 Start date: 03/13/2020 Associated Diagnoses: Chest pain, unspecified type; Chest pain due to CAD clopidogreL (PLAVIX) 75 mg Take 75 mg by mouth daily. Qty: 90 tablet, Refills: 3 Start date: 03/13/2020 Associated Diagnoses: Chest pain, unspecified type; Chest pain due to CAD losartan (COZAAR) 25 mg Take 25 mg by mouth daily. Qty: 30 tablet, Refills: 2 Start date: 03/13/2020 Associated Diagnoses: Chest pain, unspecified type; Chest pain due to CAD CONTINUE these medications which have NOT CHANGED Details atorvastatin (LIPITOR) 40 mg Take 40 mg by mouth at bedtime. methotrexate 15 mg Take 15 mg by mouth weekly. tofacitinib (XELJANZ XR) 11 mg Take 11 mg by mouth daily. Qty: 90 tablet, Refills: 1 Associated Diagnoses: Rheumatoid arthritis, seropositive; Therapeutic drug monitoring Lantus Solostar U-100 Insulin 26 Units inject 26 Units under the skin every morning. Refills: 2 TRAMADOL 50 mg tablet TAKE 1 TABLET BY MOUTH UP TO FOUR TIMES DAILY NEEDED FOR PAIN Qty: 120 tablet, Refills: 0 Associated Diagnoses: Rheumatoid arthritis, seropositive cycloSPORINE (RESTASIS) [address] 1 Drop in both eyes every 12 (twelve) hours. Dextran 70-Hypromellose (ARTIFICIAL TEARS (PF)) [address] 1 Drop in both eyes as needed. Follow-up appointments: For questions regarding follow-up instructions call the Healthcare Hotline at or For worsening symptoms/changing condition/problems or questions: Non-emergency/urgent: Call the Healthcare Hotline at or Emergency: Go to the closest emergency room or call [phone] Please tell us how we are doing. Complete and return the patient satisfaction survey that is mailed to you. Tobacco Avoidance Exposure to tobacco either from smoking, or from second hand (environmental smoke or smokeless tobacco - snuff) is damaging to your health. This information is to encourage everyone to avoid tobacco exposure. It is recommended that you: Avoid second-hand smoke If you do not smoke or use smokeless tobacco, do not start. If you smoke or use smokeless tobacco we encourage you to quit. If you have quit smoking, continue your good work! Information in the You Can Quit section may be used as a resource. Secondhand smoke is dangerous Secondhand smoke is the smoke that comes from a cigarette or other tobacco that someone other than you is smoking. Protect Yourself: Make your home and car smoke-free Family, friends, and visitors should never smoke inside your home or car Everyone knows that smoking is bad for smokers but did you know? Breathing smoke from someone else's cigarette, pipe or cigar can make you sick Smoking inside a home or car is more dangerous because smoke gets trapped inside - even fans and open windows don't help Children who live in homes where people smoke get sick more often with coughs, breathing problemssuch as asthma, and ear infections Secondhand smoke is also linked to Sudden Infant Syndrome (SIDS) Secondhand smoke can cause lung cancer in adults and is also bad for the heart.1 You Can Quit Smoking Want to Quit? Nicotine is a powerful addiction Quitting is hard, but don't give up Many people try 2-3 times before they quit for good Each time you try to quit, the more likely you are to succeed Good Reasons for Quitting You will live longer and live better Quitting will lower your chance of having a heart attack, stroke, or cancer If you are , quitting smoking will improve your chances of having a healthy baby The people you live with, especially your children, will be healthier You will have extra money to spend on things other than cigarettes Tips to Help You Quit Get rid of all cigarettes and ashtrays in your home, car, or workplace Ask your family, friends, and coworkers for support Stay in nonsmoking areas Breathe in deeply when you feel the urge to smoke Keep your self busy Reward yourself often Additional Resources You may want to contact these organizations for further information on smoking and how to quit. Citizen Of [place] Heart Association Citizen Of [place] Cancer Society Citizen [place] Lung Association 1U.S. Environmental Protection Agency. Secondhand Tobacco Smoke and the Health of Your Family brochure. Retrieved from the Internet on September 12, 2005. Http://www.epa.gov/smokefree/publications.html#How %20to%20Order%20EPA%20Publications Five [place] for Quitting Studies have shown that these five steps will help you quit and quit for good. You have the best chances of quitting if you use them together. 1. Get Ready Set a quit date Change your environment 1. Get rid of ALL cigarettes and ashtrays in your home, car, and place of work 2. Don't let people smoke in your home Review your past attempts to quit. Think about what worked and what did not Once you quit, don't smoke - NOT EVEN A PUFF! 2. Get Support and Encouragement Studies have shown that you have a better chance of being successful if you have help. You can get support in many ways: Tell you family, friends, and co-workers that you are going to quit and want their support. Ask them not to smoke around you or leave cigarettes out. Talk to your health care provider (for example, doctor, nurse, pharmacist, psychologist, or smoking counselor Get individual, group, or telephone counseling. The more counseling you have, the better you chances are of quitting. Programs are given at local hospitals and health centers. Call your local health department for information about programs in your area. 3. Learn New Skills and Behaviors Try to distract yourself from urges to smoke. Talk to someone, go for a walk, or get busy with atask When you first try to quit, change your routine. Use a different route to work. Drink tea instead of coffee. Eat breakfast in a different place. Do something to reduce your stress. Take a hot bath, exercise, or read a book. Plan something enjoyable to do every day Drink a lot of water and other fluids 4. Get Medication and Use It Correctly Medications can help you stop smoking and lessen the urge to smoke. The U.S. Food and Drug Administration (FDA) has approved five medications to help you quit smokin. Bupropion SR - Available by prescription 2. Nicotine gum - Available [id number] 3. Nicotine inhaler - Available by prescription 4. Nicotine nasal spray - Available by prescription 5. Nicotine patch - Available by prescription and [id number]-[id number] Ask your health care provider for advice and carefully read the information on the package All of these medications will more or less double your chances of quitting and quitting for good Everyone who is trying to quit may benefit from using a medication. If you are or trying to become , nursing, under age 18, smoking fewer than 10 cigarettes per day, or have a medical condition, talk to your doctor or other health care provider before taking medications 5. Be Prepared for Relapse or Difficult Situations Most relapses occur within the first 3 months after quitting. Don't be discouraged if you start smoking again. Remember, most people try several times before they finally quit. Here are some difficult situations to watch for: Alcohol. Avoid drinking alcohol. Drinking lowers your chances of success. Other Smokers. Being around smoking can make you want to smoke. Weight Gain. Many smokers will gain weight when they quit, usually less than 10 pounds. Eat a healthy diet and stay active. Don't let weight gain distract you from your main goal - quitting smoking. Some quit-smoking medications may help delay weight gain. Bad Mood or Depression. There are a lot of ways to improve your mood other than smoking. If you are having problems with any of these situations, talk to your doctor or other health careprovider. AttachmentsThe following attachments cannot be sent through Care Everywhere. Angina, Stable (Chilean)Fast-Acting Nitroglycerin, Discharge Instructions: Taking (Chilean)Heart Attack or Angina, Recognizing a (Chilean)Heart Attack, Discharge Instructions for (Chilean)Heart Attack: Signs and Symptoms - VIDEO (Chilean)Heart Attacks: First Aid (Chilean)Isosorbide Mononitrate extended- release tablets (Chilean)Dextromethorphan; Guaifenesin oral solution (Chilean) documented in this encounter Consult Notes Maranda Durbin - 03/13/2020 10:49 AM CSTFood Allergy and Cultural/Caodaism Food Preferences Consult Note: Confirmed Food Allergy: Patient informs allergy to contrast dye and thinks she is allergic to shrimp. States reaction to shrimp when fried but not grilled or boiled. She has allergy testing planned forJan2020. Patient agreeable to having shrimp placed on her allergy list. Updated on AA Party. Maranda Durbin RD, LD Clinical Dietitian RD Office: [id number] documented in this encounter ED Notes Magnus Abarca RN - 03/12/2020 7:26 PM CSTArrives to ED c/o cp that started around 5 pm while watching TV. Was recently hospitalized and had 2cardiac stents [facility] Was seen by PCP who sent for chest xray for concern of pneumonia. Marah Jackson DO - 03/12/2020 7:18 PM CST [facility] Emergency Department Note Patient Name: Tamy Martinez Date of : 1960 59 year old female Treatment Room: [place] [address] Primary Care Physician: Tyesha Galaviz Patient Escorted by: Self [9] Mode of Arrival: Personal means [1] EMS Treatment Prior to ED Arrival: [facility] treatment: None Travel and Exposure Screening: Symptoms Does patient have any of these symptoms?: (not recorded) Exposure Screening Has patient had contact with someone with a communicable disease in the last month?: (not recorded) Diseases exposed to:: (not recorded) Is Patient ?: (not recorded) Exposure Date: (not recorded) Chief Complaint: Chief Complaint Patient presents with Chest Pain Cough Shortness of Breath History of Present Illness: Patient presents for eval for chest pain that started while sitting watching TV. Has been constant since then. States is worse with walking and with breathing. Did not take any meds for her sx today. Had recent admission to OSH with a cardiac cath and stent placement on 02/26. Went home on 03/06.Is on asa 325mg daily and plavix. States she took both today. No cough or URI sx. No fevers. No sob. No leg swelling. Has h/o CAD, htn, dm, RA and lipids. Does not smoke. Pain is rated a 7/10. Here for eval. Past Medical History/Immunizations: Past Medical History: Diagnosis Date Anemia Autoimmune disorder DM (diabetes mellitus) GERD (gastroesophageal reflux disease) HTN (hypertension) Osteoarthrosis, unspecified whether generalized or localized, lower leg RA (rheumatoid arthritis) Seropositive, erosive with RF of 265 and CCP titer of 71 Right knee pain 08/05/2015 Urinary incontinence occasional stress incont Vitreous hemorrhage of left eye Tetanus received in last 5 years: Yes Childhood immunizations: Up-to-date Allergies: Allergies Allergen Reactions Ivp Dye [Iodine And Iodide Containing Products] Rash Past Social History: Tobacco Use Never smoked or used smokeless tobacco. Alcohol Use No. Drug Use No. Sexual Activity Not currently sexually active; Partners: Male. Comments: last intercourse 3 months ago Past Surgical History: Past Surgical History: Procedure Laterality Date ARTHROSCOPY OF JOINT UNLISTED b/L knees SECTION ELBOW BURSECTOMY B/L ENDOLASER PHOTOCOAGULATION Left 02/04/2019 Surgeon: Joana Dean MD; Location: [facility] Location LAPAROSCOPIC ADJUSTABLE GASTRIC BANDING 2009 LAPAROSCOPIC ADJUSTABLE GASTRIC BANDING 2009 OPEN CHOLECYSTECTOMY PARS PLANA VITRECTOMY Left 02/04/2019 Surgeon: Joana Dean MD; Location: [facility] Location TOTAL KNEE ARTHROPLASTY Left TOTAL KNEE ARTHROPLASTY Right 05/15/2017 Surgeon: Rex Pacheco MD; Location: [facility] OR Location TUBAL LIGATION Review of Systems: Review of Systems Constitutional: Negative for chills and fever. Respiratory: Negative for cough and shortness of breath. Cardiovascular: Positive for chest pain. Gastrointestinal: Negative for abdominal pain, nausea and vomiting. Genitourinary: Negative for dysuria. Musculoskeletal: Negative for arthralgias, neck pain and neck stiffness. Skin: Negative for wound. Neurological: Negative for dizziness. Psychiatric/Behavioral: Negative for agitation. Physical Exam: ED Triage Vitals [03/12/201927] Weight 89.8 kg (198 lb) Actual or estimated Height BP (!) 177/59 Pulse 87 Resp 18 Temp 37.4 C (99.3 F) Temp source Oral SpO2 98 % Measured on Room air Physical Exam Vitals signs and nursing note reviewed. Constitutional: Appearance: Normal appearance. She is obese. HENT: Head: Normocephalic and atraumatic. Neck: Musculoskeletal: Normal range of motion and neck supple. Cardiovascular: Rate and Rhythm: Normal rate and regular rhythm. Pulses: Normal pulses. Heart sounds: Normal heart sounds. Pulmonary: Effort: Pulmonary effort is normal. No respiratory distress. Breath sounds: Normal breath sounds. No stridor. No wheezing. Abdominal: General: There is no distension. Palpations: Abdomen is soft. There is no mass. Tenderness: There is no abdominal tenderness. There is no guarding. Musculoskeletal: Normal range of motion. Skin: General: Skin is warm and dry. Neurological: General: No focal deficit present. Mental Status: She is alert and oriented to person, place, and time. Radiology: No results found for this visit on 03/12/20. Lab Results (24h): Recent Results (from the past 24 hour(s)) TROPONIN I Collection Time: 03/12/20 7:35 PM Result Value Ref Range TROPONIN I <0.012 <=0.034 ng/mL aPTT Collection Time: 03/12/20 7:35 PM Result Value Ref Range APTT Patient 24 23 - 38 Seconds PROTHROMBIN TIME / INR Collection Time: 03/12/20 7:35 PM Result Value Ref Range PROTIME PATIENT 12.8 12.0 - 14.7 Seconds INR 1.0 COMP. METABOLIC PANEL (02933) Collection Time: 03/12/20 7:35 PM Result Value Ref Range NA 133 (L) 135 - 145 mmol/L K 4.3 3.5 - 5.0 mmol/L CL 96 (L) 98 - 108 mmol/L CO2 TOTAL 27 23 - 31 mmol/L AGAP 10 2 - 16 BUN 18 7 - 23 mg/dL GLUCOSE 381 (H) 70 - 110 mg/dL CREATININE 1.01 0.50 - 1.04 mg/dL TOTAL BILI 0.6 0.1 - 1.1 mg/dL CALCIUM 9.0 8.6 - 10.6 mg/dL T PROTEIN 7.4 6.3 - 8.2 g/dL ALBUMIN 4.2 3.5 - 5.0 g/dL ALK PHOS 147 (H) 34 - 122 U/L ALTv 22 5 - 35 U/L AST(SGOT) 26 13 - 40 U/L eGFR Calculation (Non-) 56.5 mL/min/1.73m2 eGFR Calculation () 68.5 mL/min/1.73m2 LIPASE, SERUM Collection Time: 03/12/20 7:35 PM Result Value Ref Range LIPASE 115 0 - 220 U/L CBC WITH DIFF Collection Time: 03/12/20 7:35 PM Result Value Ref Range WBC 8.44 4.30 - 11.10 10*3/L RBC 4.28 3.93 - 5.25 10*6/L HGB 12.6 11.6 - 15.0 g/dL HCT 36.5 35.7 - 45.2 % MCV 85.3 80.6 - 95.5 fL MCH 29.4 25.9 - 32.8 pg MCHC 34.5 31.6 - 35.1 g/dL RDW-SD 44.8 39.0 - 49.9 fL RDW-CV 14.5 12.0 - 15.5 % PLT 271 166 - 358 10*3/L MPV 9.4 (L) 9.5 - 12.9 fL NRBC/100 WBC 0.0 0.0 - 10.0 /100 WBCs NRBC x10^3 <0.01 10*3/L GRAN MAT (NEUT) % 65.7 % IMM GRAN % 0.50 % LYMPH % 16.1 % MONO % 11.6 % EOS % 5.6 % BASO % 0.5 % GRAN MAT x10^3(ANC) 5.55 1.88 - 7.09 10*3/uL IMM GRAN x10^3 0.04 0.00 - 0.06 10*3/uL LYMPH x10^3 1.36 1.32 - 3.29 10*3/uL MONO x10^3 0.98 (H) 0.33 - 0.92 10*3/uL EOS x10^3 0.47 (H) 0.03 - 0.39 10*3/uL BASO x10^3 0.04 0.01 - 0.07 10*3/uL COVID-19 (ID NOW RAPID TESTING) Collection Time: 03/12/20 7:35 PM Specimen: NASOPHARYNGEAL SWAB Result Value Ref Range SARS-CoV-2 Rapid ID NOW Not Detected Not Detected EKG: Nsr, no stemi, QTc 427, rate 82 Orders and Treatments: Orders Placed This Encounter Procedures TROPONIN I aPTT PROTHROMBIN TIME / INR COMP. METABOLIC PANEL (96013) LIPASE, SERUM CBC WITH DIFF COVID-19 (ID NOW RAPID TESTING) LAB ONLY COVID INTERPRETATION O2 Per Protocol Orders Placed This Encounter Medications sodium chloride (NS) injection 5 mL nitroglycerin (NITROSTAT) sublingual tablet 0.4 mg ED COURSE patient presents for eval for chest pain that started while watching tv around 1700 today. Has been constant since and is worse with exertion. Had recent cardiac cath with stent placement on 02/26.Is on asa 325mg and plavix daily. Admits to compliance with these and did take her asa today. Alsohas h/o htn, dm, lipids and RA. Does not smoke. No cough or sob or URI sx. VSS here in the EC. Lungs clear. Heart RR. EKG shows nsr, no stemi. Concern for instent restenosis. Has already had asa 325mg today. Will give ntg for pain. Had an outpatient CXR today. Will check labs. Anticipate admission later on. 2009 - chest pain improving and is now a 2/10. Troponin normal. covid negative. Labs show hyperglycemia but no DKA. CXR unremarkable from her outpatient visit today. Will need cards admission for chest pain in setting of recent stent placement. 2024 - spoke with cardiology in [place] and patient accepted for transfer. Remains stable here in the . MDM: Coding Scoring Tools: No data recorded Diagnosis/Impression: ICD-10-CM ICD-9-CM 1. Chest pain, unspecified type R07.9 786.50 Disposition/Condition: ED Disposition ED Disposition Condition Comment Transfer - [facility] to IP/Obs Discharge Medications: Patient's Medications START taking these medications No medications on file CONTINUE taking these medications which have NOT CHANGED ACCU-CHEK SOFTCLIX LANCETS MISC 2 (two) times daily. BD INSULIN PEN NEEDLE UF 31 GAUGE X 5/16" NDLE USE QID CYCLOSPORINE (RESTASIS) 0.05 % DROPS Place 1 Drop in both eyes every 12 (twelve) hours. DEXTRAN 70-HYPROMELLOSE (ARTIFICIAL TEARS) DPET Place 1 Drop in both eyes as needed. INSULIN ASPART (NOVOLOG FLEXPEN) 100 UNIT/ML INJECTION inject 12 Units under the skin 3 (three) times daily before meals. LANTUS SOLOSTAR U-100 INSULIN 100 UNIT/ML (3 ML) INJECTION INJECT 20 UNITS SC QAM TOFACITINIB (XELJANZ XR) 11 MG TB24 Take 11 mg by mouth daily. TRAMADOL 50 MG TABLET TAKE 1 TABLET BY MOUTH UP TO FOUR TIMES DAILY NEEDED FOR PAIN START taking Modified Medications as Prescribed No medications on file STOP taking these medications No medications on file Follow-up: Electronically signed by: Marah Prescott DO 03/12/2020 7:35 PM OR INSTRUCTOR documented in this encounter Miscellaneous Notes Care Plan - Micaela Fitch RN - 03/13/2020 8:06 AM SENIOR INSTRUCTOR Problem: Discharge Planning - Antepartum Goal: Absence of seizure activity Outcome: Progressing as expected Goal: Absence of venous thromboembolism Outcome: Progressing as expected Goal: Adequate for discharge Outcome: Progressing as expected Goal: Blood pressure within specified parameters Outcome: Progressing as expected Problem: Glucose control Goal: Glucose level within specified parameters Outcome: Progressing as expected Problem: Pain Goal: Control of pain at or below patient's documented comfort goal Outcome: Progressing as expected Goal: Reduction in pain sensation Outcome: Progressing as expected Problem: Discharge Planning - Antepartum Goal: Absence of seizure activity Outcome: Progressing as expected Goal: Absence of venous thromboembolism Outcome: Progressing as expected Goal: Adequate for discharge Outcome: Progressing as expected Goal: Blood pressure within specified parameters Outcome: Progressing as expected Problem: Pain Goal: Control of pain at or below patient's documented comfort goal Outcome: Progressing as expected Goal: Reduction in pain sensation Outcome: Progressing as expected are Plan - Thiago Daly RN - 03/13/2020 6:05 AM SENIOR INSTRUCTOR Problem: Discharge Planning - Antepartum Goal: Absence of seizure activity Outcome: Progressing as expected Goal: Absence of venous thromboembolism Outcome: Progressing as expected Goal: Adequate for discharge Outcome: Progressing as expected Goal: Blood pressure within specified parameters Outcome: Progressing as expected Problem: Glucose control Goal: Glucose level within specified parameters Outcome: Progressing as expected Problem: Pain Goal: Control of pain at or below patient's documented comfort goal Outcome: Progressing as expected Goal: Reduction in pain sensation Outcome: Progressing as expected D Nurse Note - Magnus Abarca RN - 03/12/2020 9:54 PM CSTPatient admitted [facility] Patient agrees to admission, discussed plan of care with patient and family. Patient is awake, alert, oriented, resp reg unlabored, color appropriate for race, PIV intact No adverse reaction to medications administered while in ED Belongings with patient to unit Report to Olayinka OLVERA D Nurse Note - Magnus Abarca RN - 03/12/2020 9:45 PM CSTReport to Olayinka OLVERA D Nurse Note - Magnus Abarca RN - 03/12/2020 9:30 PM CSTAttempted to Call report in [place]. D Nurse Note - Magnus Abarca RN - 03/12/2020 9:28 PM CSTReport to Genesis Pacheco and Tyshawn Hathaway with [facility]. EMS at bedside. D Nurse Note - Magnus Abarca RN - 03/12/2020 8:59 PM CSTAttempted to call report. RN advised room dirty and unable to take report at this time. documented in this encounter Plan of Treatment Date Type Specialty Care Team Description 03/16/2020 Office Visit Cardiology Rachel Mckeon MD [address] [phone] 03/19/2020 Office Visit Allergy & Immunology: Emile Pérez MD Internal Medicine [address] [facility] [address] [place], [place] [address] 05/11/2020 Office Visit Ophthalmology Carmelina Chaidez M D [address] [place] [phone] Name Type Priority Associated Diagnoses Date/Ti me Blood Culture - Peripheral LAB MANJU 0 03/13/2020 12:53 AM SENIOR INSTRUCTOR Vein Blood Culture - Peripheral LAB MANJU 0 03/13/2020 12:54 AM SENIOR INSTRUCTOR Vein # 2 Name Type Priority Associated Diagnoses Order S chedule EKG-12 LEAD HEART STATION Routine Chest pain, ONCE for 1 Occ urrences ROUTINE ONCE unspecified type starting until 0 aPTT (for use with LAB Routine FOR FOLLO W-UP TESTING Heparin Drip) until disconti nued starting 2020 Health Maintenance Due Date Last Done Comments URINE MICROALBUMIN 1972 FOOT EXAM 1980 DTaP,Tdap,and Td Vaccines (1 1981 - Tdap) COLON CANCER SCREENING 2012 ANNUAL FIT/FOBT COLON CANCER SCREENING FIT 2012 DNA EVERY 3 YEARS COLON CANCER SCREENING 2012 SIGMOIDOSCOPY EVERY 5 YEARS COLONOSCOPY 2012 Colorectal Cancer Screening 2012 Breast Cancer Screening 02/01/2018 02/01/2017 (MAMMOGRAM) INFLUENZA VACCINE (#1) 2019 PAP SMEAR 01/27/2020 01/26/2017 Depression Screening 05/20/2020 05/21/2019 HgA1C 09/09/2020 03/12/2020, 05/16/2017, 01/13/2012 EYE EXAM 03/09/2021 03/09/2020, 03/03/2020, 02/27/2019, Additional history exists CREATININE (SERUM) 03/13/2021 03/13/2020, 03/12/2020, 05/21/2019, Additional history exists LDL-C 03/13/2021 03/13/2020, 05/21/2019, 02/27/2019, Additional history exists HEPATITIS C (HCV) SCREEN Completed 02/27/2019, 12/27/2018, 12/27/2016, Additional history exists Zoster Recombinant Vaccine Completed 03/25/2019, 9 (SHINGRIX) PNEUMOCOCCAL 0-64 YEARS Aged Out No longe r eligible COMBINED SERIES based on patient 's age to complete this topic documented as of this encounter Implants Implanted Type Area Medical Record Librarian Device Shelf Model / Identifier Expiration Date Ser ial / Lot Palacos R [employer] Bone Cement CEMENT Right: Biomet 05/13 [id number] / Implanted: Qty: 1 on 05/15/2017 by Rex Argueta MD at [facility] Knee 8 [id number] / [id number] Ps Open Box Femoral-Right KNEE Right: Biomet 04/2026 [id number] / Implanted: Qty: 1 on 05/15/2017 by Rex Argueta MD at [facility] Knee J [id number] / [id number] Adc Plate Tibial Cruciate 67 Mm - [id number] PLATE Right: Biomet 01/16/2027 [id number] / Implanted: Qty: 1 on 05/15/2017 by Rex Argueta MD at [facility] Knee J [id number] / [id number] Adc Patella 31 X 8 Mm - [id number] Right: Biomet 12/31/2021 [id number] / Implanted: Qty: 1 on 05/15/2017 by Rex Argueta MD at [facility] Knee 6 [id number] / [id number] Bearing Tib 10 X 63/67 Mm #[id number] - [id number] Right: Biomet 01/24/2022 [id number] / Implanted: Qty: 1 on 05/15/2017 by Rex Argueta MD at [facility] Knee [id number] / [id number] documented as of this encounter Procedures Procedure Name Priority Date/Time Associated Comments Diagnosis POCT GLUCOSE Routine 03/13/2020 5:32 Results for this (AUTOMATED) PM SENIOR INSTRUCTOR procedure are i n the results section. POCT GLUCOSE Routine 03/13/2020 1:57 Results for this (AUTOMATED) PM SENIOR INSTRUCTOR procedure are i n the results section. POCT GLUCOSE Routine 03/13/2020 9:05 Results for this (AUTOMATED) AM SENIOR INSTRUCTOR procedure are i n the results section. TROPONIN I Routine 03/13/2020 6:53 Results for this AM SENIOR INSTRUCTOR procedure are i n the results section. URINALYSIS [facility] 03/13/2020 3:04 Results for this AM SENIOR INSTRUCTOR procedure are i n the results section. BLOOD CULTURE SCREEN [facility] 03/13/2020 12:54 AM SENIOR INSTRUCTOR BLOOD CULTURE SCREEN [facility] 03/13/2020 12:53 AM SENIOR INSTRUCTOR ACTIVATED PARTIAL MANJU 03/13/2020 12:50 Result s for this THRMPLAS YI AM SENIOR INSTRUCTOR procedure are i n the results section. PROTHROMBIN TIME / INR MANJU 03/13/2020 12:50 R esults for this AM SENIOR INSTRUCTOR procedure are i n the results section. CBC WITH DIFF Routine 03/13/2020 12:50 Results fo r this AM SENIOR INSTRUCTOR procedure are i n the results section. LIPID PANEL Routine 03/13/2020 12:50 Results for this (53607)(TOTAL AM SENIOR INSTRUCTOR procedure are in CHOLESTEROL, the results TRIGLYCERIDES, HDL) section. BASIC METABOLIC PANEL Routine 03/13/2020 12:50 Re sults for this (NA, K, CL, CO2, AM SENIOR INSTRUCTOR procedure a re in GLUCOSE, BUN, the results CREATININE, CA) section. HEPATIC FUNCTION PANEL Routine 03/13/2020 12:50 R esults for this (58204) (ALB,T.PRO,BILI AM SENIOR INSTRUCTOR proc edure are in T,BU/BC,ALT,AST,ALK the resu lts PHOS) section. TROPONIN I Routine 03/13/2020 12:50 Results for this AM SENIOR INSTRUCTOR procedure are i n the results section. MAGNESIUM Routine 03/13/2020 12:50 Results for this AM SENIOR INSTRUCTOR procedure are i n the results section. PHOSPHORUS Routine 03/13/2020 12:50 Results for this AM SENIOR INSTRUCTOR procedure are i n the results section. LAB ONLY COVID Routine 03/12/2020 7:35 Chest pain, Results f or this INTERPRETATION PM SENIOR INSTRUCTOR unspecified type procedure are in the results section. COVID-19 (ID NOW RAPID STAT 03/12/2020 7:35 Chest pain, R esults for this TESTING) PM SENIOR INSTRUCTOR unspecified type procedure a re in the results section. ACTIVATED PARTIAL STAT 03/12/2020 7:35 Chest pain, Result s for this THRMPLAS YI PM SENIOR INSTRUCTOR unspecified type procedure a re in the results section. PROTHROMBIN TIME / INR STAT 03/12/2020 7:35 Chest pain, R esults for this PM SENIOR INSTRUCTOR unspecified type procedure a re in the results section. GLYCOSYLATED HEMOGLOBIN Add-on 03/12/2020 7:35 Results for this (A1C) PM SENIOR INSTRUCTOR procedure are i n the results section. CBC WITH DIFF STAT 03/12/2020 7:35 Chest pain, Results fo r this PM SENIOR INSTRUCTOR unspecified type procedure a re in the results section. COMP. METABOLIC PANEL STAT 03/12/2020 7:35 Chest pain, Re sults for this (29525) PM SENIOR INSTRUCTOR unspecified type procedure a re in the results section. THYROID STIMULATING Add-on 03/12/2020 7:35 Resu lts for this HORMONE PM SENIOR INSTRUCTOR procedure are i n the results section. TROPONIN I STAT 03/12/2020 7:35 Chest pain, Results for this PM SENIOR INSTRUCTOR unspecified type procedure a re in the results section. MAGNESIUM Add-on 03/12/2020 7:35 Results for this PM SENIOR INSTRUCTOR procedure are i n the results section. LIPASE STAT 03/12/2020 7:35 Chest pain, Results for this PM SENIOR INSTRUCTOR unspecified type procedure a re in the results section. HB ECG ROUTINE & RHYTHM STAT 03/12/2020 7:26 Chest pain, STRIP PM SENIOR INSTRUCTOR unspecified type NOTICE OF PRIVACY Routine 03/12/2020 7:19 PRACTICES PM SENIOR INSTRUCTOR CONSENT/REFUSAL FOR Routine 03/12/2020 7:18 DIAGNOSIS AND TREATMENT PM SENIOR INSTRUCTOR documented in this encounter Results POCT GLUCOSE (AUTOMATED) (03/13/2020 5:32 PM SENIOR INSTRUCTOR) Pathologist Sig nature POCT GLU 268 (H) 70 - 110 mg/dL [facility] Specimen Blood Performing Organization Address [facility] Phone Number [facility] CLIA: [id number] [place] [address] [phone] [address] [facility] POCT GLUCOSE (AUTOMATED) (03/13/2020 1:57 PM SENIOR INSTRUCTOR) Pathologist Sig [facility] POCT GLU 309 (H) 70 - 110 mg/dL [facility] Specimen Blood Performing Organization Address [facility] Phone Number [facility] CLIA: [id number] [place] [address] [place] [address] POCT GLUCOSE (AUTOMATED) (03/13/2020 9:05 AM SENIOR INSTRUCTOR) Pathologist Sig [facility] POCT GLU 283 (H)Comment: 70 - 110 mg/dL [facility] Notified Provider HOSPITAL Specimen Blood Performing Organization Address [facility] Phone Number [facility] CLIA: [id number] [place] [address] [place] [address] Troponin I (03/13/2020 6:53 AM SENIOR INSTRUCTOR) Pathologist Sig nature TROPONIN I 0.004 <=0.034 ng/mL [facility] Specimen Blood - ARM, LEFT Narrative Performed At Equal or Less than 0.034 ng/ml---Normal [facility] Note: Cardiac troponin begins to rise 3-4 hours after the onset of ischemia. Repeat in 4-6 hours if the sample w as drawn within 3-4 hours of the onset of the symptom and found normal. Between 0.035 and 0.120 ng/mL--- Borderline. Questiona ble myocardial injury or necrosis Note: Serial measurement may be necessary to confirm o r exclude the diagnosis of myocardial injury or necrosis ; Clinical correlation (symptoms, EKGs, imaging studies, and others) required; Repeat in 4-6 hours if clinically indicated. Equal or Higher than 0.121 ng/mL---Abnormal. Myocardia l Injury or Necrosis Likely Biotin has been reported to cause a negative bias, int erpret results relative to patient's use of biotin. Performing Organization Address [facility] Phone Number [facility] CLIA: [id number] [place] [address] [place] [address] Urinalysis (03/13/2020 3:04 AM SENIOR INSTRUCTOR) Pathologist Sig nature APPEARANCE Clear Clear [facility] COLOR Yellow Yellow [facility] PH 6.0 4.8 - 8.0 [facility] SP GRAVITY 1.025 1.003 - 1.030 [facility] GLU U QUAL 500 mg/dL (A) Normal [facility] BLOOD 1+ (A) Negative [facility] KETONES Negative Negative [facility] PROTEIN 30 mg/dL (A) Negative [facility] UROBILIN Normal Normal [facility] BILIRUBIN Negative Negative [facility] NITRITE Negative Negative [facility] LEUK VALERIE Negative Negative [facility] RBC/HPF 1 0 - 3 HPF [facility] WBC/HPF <1 0 - 5 HPF [facility] BACTERIA Negative Negative [facility] SQ EPITH <1 <=2 HPF [facility] Specimen Urine - URINE, CLEAN CATCH Performing Organization Address [facility] Phone Number [facility] CLIA: [id number] [place] [address] [place] [address] Troponin I (03/13/2020 12:50 AM SENIOR INSTRUCTOR) Pathologist Sig nature TROPONIN I 0.005 <=0.034 ng/mL [facility] Specimen Blood - ARM, LEFT Narrative Performed At Equal or Less than 0.034 ng/ml---Normal [facility] Note: Cardiac troponin begins to rise 3-4 hours after the onset of ischemia. Repeat in 4-6 hours if the sample w as drawn within 3-4 hours of the onset of the symptom and found normal. Between 0.035 and 0.120 ng/mL--- Borderline. Questiona ble myocardial injury or necrosis Note: Serial measurement may be necessary to confirm o r exclude the diagnosis of myocardial injury or necrosis ; Clinical correlation (symptoms, EKGs, imaging studies, and others) required; Repeat in 4-6 hours if clinically indicated. Equal or Higher than 0.121 ng/mL---Abnormal. Myocardia l Injury or Necrosis Likely Biotin has been reported to cause a negative bias, int erpret results relative to patient's use of biotin. Performing Organization Address [facility] Phone Number [facility] CLIA: [id number] [place] [address] [place] [address] Lipid Panel (Total Cholesterol, Triglycerides, HDL) - Fasting (03/13/2020 12:50 AM SENIOR INSTRUCTOR) Pathologist Sig nature CHOL 124 120 - 200 mg/dL [facility] HDL 41 (L) >50 mg/dL [facility] HDLC RATIO 3.0 <=4.5 [facility] TRIG 192 (H) 30 - 170 mg/dL [facility] LDL CHOL 45 <=160 mg/dL [facility] VLDL 38 5 - 60 mg/dL [facility] Specimen Blood - ARM, LEFT Performing Organization Address [facility] Phone Number [facility] CLIA: [id number] [place] [address] [place] [address] aPTT (03/13/2020 12:50 AM SENIOR INSTRUCTOR) Pathologist Sig nature APTT Patient 28 26 - 36 Seconds [facility] Specimen Blood - ARM, LEFT Performing Organization Address [facility] Phone Number [facility] CLIA: [id number] [place] [address] [place] [address] Prothrombin Time / INR (03/13/2020 12:50 AM SENIOR INSTRUCTOR) PROTIME PATIENT 11.1 10.1 - 12.6 [facility] Seconds SERVICES INR 1.0Comment: Normal [facility] INR <1.1; Warfarin SERVICES Therapeutic range 2.0 to 3.0 or 2.5 to 3.5, depending upon the indications. Specimen Blood - ARM, LEFT Performing Organization Address [facility] Phone Number [facility] CLIA: [id number] [place] [address] [place] [address] Phosphorus Serum (03/13/2020 12:50 AM SENIOR INSTRUCTOR) Pathologist Sig nature PHOSPHORUS 3.6 2.5 - 5.0 mg/dL [facility] Specimen Blood - ARM, LEFT Performing Organization Address [facility] Phone Number [facility] CLIA: [id number] [place] [address] [place] [address] Magnesium Serum (03/13/2020 12:50 AM SENIOR INSTRUCTOR) Pathologist Sig nature MAGNESIUM 1.8 1.7 - 2.4 mg/dL [facility] Specimen Blood - ARM, LEFT Performing Organization Address [facility] Phone Number [facility] CLIA: [id number] [place] [address] [place] [address] HEPATIC FUNCTION PANEL ([id number]) (ALB,T.PRO,BILI T,BU/BC,ALT,AST,ALK PHOS) (03/13/2020 12:50 AM SENIOR INSTRUCTOR) Pathologist Sig nature TOTAL BILI 0.5 0.1 - 1.1 mg/dL [facility] BILI UNCON 0.3 0.1 - 1.1 mg/dL [facility] BILI CONJ 0.0 0.0 - 0.3 mg/dL [facility] T PROTEIN 6.9 6.3 - 8.2 g/dL [facility] ALBUMIN 3.7 3.5 - 5.0 g/dL [facility] ALK PHOS 163 (H) 34 - 122 U/L [facility] ALTv 23 5 - 35 U/L [facility] AST(SGOT) 27 13 - 40 U/L [facility] Specimen Blood - ARM, LEFT Performing Organization Address [facility] Phone Number [facility] CLIA: [id number] [place] [address] [place] [address] Basic Metabolic Panel (NA, K, CL, CO2, GLUCOSE, BUN, CREATININE, CA) (03/13/2020 12:50 AM SENIOR INSTRUCTOR) Pathologist Sig nature NA 135 135 - 145 [facility] mmol/L SERVICES K 3.9 3.5 - 5.0 [facility] mmol/L SERVICES CL 100 98 - 108 mmol/L [facility] CO2 TOTAL 27 23 - 31 mmol/L [facility] AGAP 8 2 - 16 [facility] BUN 19 7 - 23 mg/dL [facility] GLUCOSE 347 (H) 70 - 110 mg/dL [facility] CREATININE 0.88 0.50 - 1.04 [facility] mg/dL SERVICES CALCIUM 8.9 8.6 - 10.6 [facility] mg/dL SERVICES eGFR Calculation 66.2 mL/min/1.73m2 [facility] (Non- SERVICES Citizen Of [place]) eGFR Calculation 80.3 mL/min/1.73m2 [facility] () SERVICES Specimen Blood - ARM, LEFT Narrative Performed At Association of Glomerular Filtration Rate (GFR) and St aging [facility] of Kidney Disease* + + +------- ------ + | GFR (mL/min/1.73 m2) | With Kidney Damage | Wi thout Kidney Damage + + +------- ------ + | >90 | Stage one | Normal + + +------- ------ + | 60-89 | Stage two | Decreased GFR + + +------- ------ + | 30-59 | Stage three | Stage three + + +------- ------ + | 15-29 | Stage four | Stage four + + +------- ------ + | <15 (or dialysis) | Stage five | Stage five + + +------- ------ + *Each stage assumes the associated GFR level has been in effect for at least three months. Stages 1 to 5, wit h or without kidney disease, indicate chronic kidney disease. Notes: Determination of stages one and two (with eGFR >59mL/min/1.73 m2) requires estimation of kidney damag e for at least three months as defined by structural or func tional abnormalities of the kidney, manifested by either: Pathological abnormalities or Markers of kidney damage (including abnormalities in the composition of the blo od or urine or abnormalities in imaging tests) . Performing Organization Address City/State/Zipcode Phone Number [facility] CLIA: [id number] [place], [place] [address] [address] [place] [address] CBC with Differential (03/13/2020 12:50 AM SENIOR INSTRUCTOR) [facility] nature WBC 6.73 4.30 - 11.10 [facility] 10*3/L SERVICES RBC 4.11 3.93 - 5.25 [facility] 10*6/L SERVICES HGB 12.0 11.6 - 15.0 [facility] g/dL SERVICES HCT 35.6 (L) 35.7 - 45.2 % [facility] MCV 86.6 80.6 - 95.5 fL [facility] MCH 29.2 25.9 - 32.8 pg [facility] MCHC 33.7 31.6 - 35.1 [facility] g/dL SERVICES RDW-SD 45.8 39.0 - 49.9 fL [facility] RDW-CV 14.4 12.0 - 15.5 % [facility] PLT 236 166 - 358 [facility] 10*3/L SERVICES MPV 9.7 9.5 - 12.9 fL [facility] NRBC/100 WBC 0.0 0.0 - 10.0 /100 [facility] WBCs SERVICES NRBC x10^3 <0.01 10*3/L [facility] GRAN MAT (NEUT) % 63.9 % [facility] IMM GRAN % 0.60 % [facility] LYMPH % 17.2 % [facility] MONO % 11.6 % [facility] EOS % 6.1 % [facility] BASO % 0.6 % [facility] GRAN MAT x10^3(ANC) 4.30 1.88 - 7.09 [facility] 10*3/uL SERVICES IMM GRAN x10^3 0.04 0.00 - 0.06 [facility] 10*3/uL SERVICES LYMPH x10^3 1.16 (L) 1.32 - 3.29 [facility] 10*3/uL SERVICES MONO x10^3 0.78 0.33 - 0.92 [facility] 10*3/uL SERVICES EOS x10^3 0.41 (H) 0.03 - 0.39 [facility] 10*3/uL SERVICES BASO x10^3 0.04 0.01 - 0.07 [facility] 10*3/uL SERVICES Specimen Blood - ARM, LEFT Performing Organization Address City/State/Zipcode Phone Number [facility] CLIA: [id number] [place] [address] [place], [place] [address]vd Thyroid Stimulating Hormone (TSH) (03/12/2020 7:35 PM SENIOR INSTRUCTOR) Pathologist Sig nature TSH 0.68Comment: Biotin 0.45 - 4.70 [facility] has been reported [facility] to cause a negative bias, interpret results relative to patient's use of biotin. Specimen Blood - VENOUS Performing Organization Address [facility] Phone Number [facility] CLIA: [id number] [place] [address] LABORATORY [address] [facility] Magnesium Serum (03/12/2020 7:35 PM SENIOR INSTRUCTOR) Pathologist Sig nature MAGNESIUM 1.7 1.7 - 2.4 mg/dL [facility] Specimen Blood - VENOUS Performing Organization Address [facility] Phone Number [facility] CLIA: [id number] [place] [address] LABORATORY [address] [facility] GLYCOSYLATED HEMOGLOBIN (A1C) (03/12/2020 7:35 PM SENIOR INSTRUCTOR) Pathologist Sig nature HGB A1C 9.1 (H) 4.0 - 6.0 % [facility] Specimen Blood - VENOUS Narrative Performed At %A1C (NGSP) Interpretation (ADA) [facility] 4.8-5.6 Normal or (Non-Diabetic Ra nge) 5.7-6.4 Increased Risk (Pre-Diabet ic) >6.5 Diabetes Indicated Performing Organization Address [facility] Phone Number [facility] CLIA: [id number] [place] [address] LABORATORY [address] [facility] LAB ONLY COVID INTERPRETATION (03/12/2020 7:35 PM SENIOR INSTRUCTOR) COVID DMT Interpretation/Recommendations: [facility] Interpretation SERVICES Molecular NAAT Tests for Active Infection with the [place] S-CoV-2 Virus: This result indicates that t he patient has tested negative on one occasion for the SARS-CoV-2 virus that causes COVID-19 illness. This most likely indicates that the patient does not have an active infe ction with the SARS-CoV-2 vi lorraine. However, infection is not completely ruled out as the false negative rate for molecular NAAT testing using a nasopharyngeal sample can be up to 30%, mostly dependent on the timing of sample collect ion in relation to illness onset and any deficiencies in sampling techniques. If the patient continues to have persistent or worsening symptoms concerning for COVID-19 illnes s, a repeat NAAT test (PCR, Rapid ID Now, etc.) should be performed, at which time the SARS-CoV-2 virus - if present - may have reached a detectable viral load (usually peaking by the end of the first week of symptoms). Tests for IgM and/or IgG Antibodies to SARS-CoV-2 Viru s: Testing for IgM and IgG anti bodies 1-3 weeks after illness onset will indicate whether the patient has produced antibodies to the virus. At this time, it is not known if the production of antibodies - s pecifically IgG antibodies - indicates whether the patient is immune to future infections with the SARS-CoV-2 virus. Interpretation Result Comments: These interpretation comment s are based upon all COVID-19 testing the patient has had at [facility], including molecular NAAT testing (more commonly known as PCR testing and Rapid ID Now testing) and antibody testing. It does not take i nto account any testing that a patient has had outside of the [facility] medical record. COVID Results SARS-CoV-2 Rapid ID NOW (no units) [facility] Date Value SERVICES 03/12/2020 Not Detected Specimen Swab - NASOPHARYNGEAL SWAB Performing Organization Address City/State/Zipcode Phone Number [facility] CLIA: [id number] [place] [address] [place] [address] COVID-19 (ID NOW RAPID TESTING) (03/12/2020 7:35 PM SENIOR INSTRUCTOR) [facility] SARS-CoV-2 Rapid ID Not Detected Not Detected [facility] Specimen Swab - NASOPHARYNGEAL SWAB Narrative Performed At [facility] COVID-19 Assay is an isothermal nucleic [facility] acid amplification test intended for the qualitative detection of nucleic acid from SARS-CoV-2 viral RNA in nasopharyngeal (BOTANY TECHNICIAN) specimens. It is used under Emergency Use Authorization (EUA) by FDA. The limit of detection (LOD) of the assay is 125 Genome Equivalents/mL. A positive result is indicative of the presence of SARS-CoV-2 RNA. Clinical correlation with patient history and other diagnostic information is necessary to determine patient infection status. A negative (Not Detected) result does not preclude SARS-CoV-2 infection. In patients with clinical symptoms and other tests that are consistent with SARS-CoV-2 infection, negative results should be treated as presumptive negative and a new specimen should be tested with alternative PCR molecular test. Invalid: Please collect a new specimen for repeat patient testing if clinically indicated. Performing Organization Address City/State/Zipcode Phone Number [facility] CLIA: [id number] [place], [place] [id number] LABORATORY [address] CBC WITH DIFF (03/12/2020 7:35 PM SENIOR INSTRUCTOR) Pathologist Sig nature WBC 8.44 4.30 - 11.10 [facility] 10*3/L [facility] RBC 4.28 3.93 - 5.25 [facility] 10*6/L [facility] HGB 12.6 11.6 - 15.0 [facility] g/dL [facility] HCT 36.5 35.7 - 45.2 % [facility] MCV 85.3 80.6 - 95.5 fL [facility] MCH 29.4 25.9 - 32.8 pg [facility] MCHC 34.5 31.6 - 35.1 [facility] g/dL [facility] RDW-SD 44.8 39.0 - 49.9 fL [facility] RDW-CV 14.5 12.0 - 15.5 % [facility] PLT 271 166 - 358 [facility] 10*3/L [facility] MPV 9.4 (L) 9.5 - 12.9 fL [facility] NRBC/100 WBC 0.0 0.0 - 10.0 /100 [facility] WBCs [facility] NRBC x10^3 <0.01 10*3/L [facility] GRAN MAT (NEUT) % 65.7 % [facility] IMM GRAN % 0.50 % [facility] LYMPH % 16.1 % [facility] MONO % 11.6 % [facility] EOS % 5.6 % [facility] BASO % 0.5 % [facility] GRAN MAT x10^3(ANC) 5.55 1.88 - 7.09 [facility] 10*3/uL HOSPITAL LABORATORY IMM GRAN x10^3 0.04 0.00 - 0.06 [facility] 10*3/uL HOSPITAL LABORATORY LYMPH x10^3 1.36 1.32 - 3.29 [facility] 10*3/uL HOSPITAL LABORATORY MONO x10^3 0.98 (H) 0.33 - 0.92 [facility] 10*3/uL HOSPITAL LABORATORY EOS x10^3 0.47 (H) 0.03 - 0.39 [facility] 10*3/uL [facility] BASO x10^3 0.04 0.01 - 0.07 [facility] 103/uL [facility] LABORATORY Specimen Blood - VENOUS Performing Organization Address City/[facility]/Zipcode Phone Number [facility] CLIA: [id number] [place] [address] LABORATORY [address] [facility] LIPASE, SERUM (03/12/2020 7:35 PM SENIOR INSTRUCTOR) Pathologist Sig nature LIPASE 115 0 - 220 U/L [facility] Specimen Blood - VENOUS Performing Organization Address City/[facility]/Zipcode Phone Number [facility] CLIA: [id number] [place] [address] LABORATORY [address] [facility] COMP. METABOLIC PANEL ([id number]) (03/12/2020 7:35 PM SENIOR INSTRUCTOR) Pathologist Sig nature NA 133 (L) 135 - 145 [facility] mmol/L [facility] LAB[facility]ATORY K 4.3 3.5 - 5.0 [facility] mmol/L [facility]ORY CL 96 (L) 98 - 108 mmol/L [facility] CO2 TOTAL 27 23 - 31 mmol/L [facility] AGAP 10 2 - 16 [facility] BUN 18 7 - 23 mg/dL [facility] GLUCOSE 381 (H) 70 - 110 mg/dL [facility] CREATININE 1.01 0.50 - 1.04 [facility] mg/dL [facility] LAB[facility] TOTAL BILI 0.6 0.1 - 1.1 mg/dL [facility] CALCIUM 9.0 8.6 - 10.6 [facility] mg/dL [facility] LABORATORY T PROTEIN 7.4 6.3 - 8.2 g/dL [facility] ALBUMIN 4.2 3.5 - 5.0 g/dL [facility] ALK PHOS 147 (H) 34 - 122 U/L [facility] ALTv 22 5 - 35 U/L [facility] AST(SGOT) 26 13 - 40 U/L [facility] eGFR Calculation 56.5 mL/min/1.73m2 [facility] ([facility] LABORATORY Citizen Of [place]) eGFR Calculation 68.5 mL/min/1.73m2 [facility] () [facility]OR[facility]ORY Specimen Blood - VENOUS Narrative Performed At [facility] of Glomerular Filtration Rate (GFR) [facility] and Staging of Kidney Disease* + + +- + | GFR (mL/min/1.73 m2) | With Kidney Damage | Without Kidney Damage + + +- + | >90 | Stage one | Normal + + +- + | 60-89 | Stage two | Decreased GFR + + +- + | 30-59 | Stage three | Stage three + + +- + | 15-29 | Stage four | Stage four + + +- + | <15 (or dialysis) | Stage five | Stage five + + +- + *Each stage assumes the associated GFR level has been in effect for at least three months. Stages 1 to 5, with or without kidney disease, indicate chronic kidney disease. Notes: Determination of stages one and two (with eGFR >59mL/min/1.73 m2) requires estimation of kidney damage for at least three months as defined by structural or functional abnormalities of the kidney, manifested by either: Pathological abnormalities or Markers of kidney damage (including abnormalities in the composition of the blood or urine or abnormalities in imaging tests). Performing Organization Address City/State/Zipcode Phone Number [facility] CLIA: [id number] [place] [address] PROTHROMBIN TIME / INR (03/12/2020 7:35 PM SENIOR INSTRUCTOR) PROTIME PATIENT 12.8 12.0 - 14.7 [facility] LAB[facility]ATORY INR 1.0Comment: Normal [facility] INR <1.1; Warfarin HOSPITAL Therapeutic range LABORATORY 2.0 to 3.0 or 2.5 to 3.5, depending upon the indications. Specimen Blood - VENOUS Performing Organization Address [facility] Phone Number [facility] CLIA: [id number] [place] [address] aPTT (03/12/2020 7:35 PM SENIOR INSTRUCTOR) Pathologist Sig nature APTT Patient 24 23 - 38 Seconds [facility] Specimen Blood - VENOUS Narrative Performed At The [facility] patient population mean normal value [facility] for aPTT is 30 seconds. Performing Organization Address [facility] Phone Number [facility] CLIA: [id number] [place] [address] TROPONIN I (03/12/2020 7:35 PM SENIOR INSTRUCTOR) Pathologist Sig nature TROPONIN I <0.012 <=0.034 ng/mL [facility] Specimen Blood - VENOUS Narrative Performed At Equal or Less than 0.034 ng/ml---Normal [facility] Note: Cardiac troponin begins to rise 3-4 hours after the onset of ischemia. Repeat in 4-6 hours if the sample was drawn within 3-4 hours of the onset of the symptom and found normal. Between 0.035 and 0.120 ng/mL--- Borderline. Questionable myocardial injury or necros is Note: Serial measurement may be necessary to confirm or exclude the diagnosis of myocardial injury or necrosis; Clinical correlation (symptoms, EKGs, imaging studies, and others) required; Repeat in 4-6 hours if clinically indicated. Equal or Higher than 0.121 ng/mL---Abnormal. Myocardial Injury or Necrosis Likely Biotin has been reported to cause a negative bias, interpret results relative to patient's use of biotin. Performing Organization Address [facility] Phone Number [facility] CLIA: [id number] [place] [address] documented in this encounter Visit Diagnoses Diagnosis Chest pain, unspecified type - Primary Cough Chest pain due to CAD documented in this encounter Administered Medications Medication Order MAR Action Action Date Dose Rate Site acetaminophen (TYLENOL) tablet Given 03/13/2020 3:22 AM SENIOR INSTRUCTOR 650 mg 650 mg 650 mg, Oral, Q6HPRN, Starting Lisa 03/12/20 at 2328, Until Discontinued, Routine, Pain (scale 1-3) aspirin chewable tablet 81 mg Given 03/13/2020 9:08 AM SENIOR INSTRUCTOR 81 mg 81 mg, Oral, DAILY, First dose on Mon03/13/20 at 0900, Until Discontinued, Routine clopidogreL (PLAVIX) tablet 75 mg Given 03/13/2020 9:07 AM SENIOR INSTRUCTOR 75 mg 75 mg, Oral, DAILY, First dose on Mon03/13/20 at 0900, Until Discontinued, Routine dextromethorphan-guaifenesin (ROBITUSSIN DM) Given 4:19 PM SENIOR INSTRUCTOR 5 mL 10-100 mg/5 mL solution 5 mL 5 mL, Oral, Q6HPRN, Starting Mon03/13/20 at 1447, Until Discontinued, Routine, Cough insulin glargine (LANTUS U-100) Given 03/13/2020 9:14 AM SENIOR INSTRUCTOR 10 .5 Units Abdomen-SC injection 21 Units 21 Units, Subcutaneous, DAILY, First dose on Mon03/13/20 at 0900, Until Discontinued, Routine isosorbide mononitrate (IMDUR) 24 hr tablet Given 03/13/2020 11:24 AM SENIOR INSTRUCTOR 30 mg 30 mg 30 mg, Oral, DAILY, First dose on Mon03/13/20 at 1045, Until Discontinued, Routine losartan (COZAAR) tablet 25 mg Given 03/13/2020 9:08 AM SENIOR INSTRUCTOR 25 mg 25 mg, Oral, DAILY, First dose on Mon03/13/20 at 0900, Until Discontinued, Routine metoprolol tartrate (LOPRESSOR) half tablet Given 03/2020 11:24 AM SENIOR INSTRUCTOR 12.5 mg 12.5 mg 12.5 mg, Oral, BID, First dose on Mon03/13/20 at 1045, Until Discontinued, Routine nitroglycerin (NITROSTAT) sublingual tablet Given 02/12 7:50 PM SENIOR INSTRUCTOR 0.4 mg 0.4 mg 0.4 mg, Sublingual, Q5MIN PRN, 3 doses, Starting Lisa 03/12/20 at 1935, Until Discontinued, MANJU, Chest pain Given 03/12/2020 7:38 PM SENIOR INSTRUCTOR 0.4 mg pantoprazole (PROTONIX) EC tablet 40 mg Given 03/13/2020 9:07 AM SENIOR INSTRUCTOR 40 mg 40 mg, Oral, DAILY, First dose on Mon03/13/20 at 0900, Until Discontinued, Routine Sliding Scale Insulin - Lispro Given 03/13/2020 2:38 PM SENIOR INSTRUCTOR 4 U nits Abdomen-SC (HumaLOG) + Fsbg Testing Subcutaneous, Q4H, First dose (after last modification) on Mon03/13/20 at 0800, Until Discontinued, Routine Medication Order MAR Action Action Date Dose Rate Site heparin (1,000 unit/mL, 10 Given 03/13/2020 5:53 AM SENIOR INSTRUCTOR 3,000 U nits mL vial) for Rebolusing FOR REBOLUSING, Starting Mon03/13/20 at 0131, Until Mon03/13/20 at 1035, Routine, Dosing based on aPTT testing parameters (refer to continuous heparin drip order)., heparin 25,000 Units/250 mL (Premixed Ba g) in 0.45 % NS New 03/13/2020 1,000 10 1,000 Units/hr (10 mL/hr), IV Infusion, TITRATE, Parameters in Admin. Bag 5:53 AM SENIOR INSTRUCTOR Units/hr mL/hr Instr., Starting Mon03/13/20 at 0231, CAUTION - If LMWH given in ER, AVOID bolus and start next dose/drip 12 hrs after ER dosage. Must program rate using programmable infusion pump. Check with the orderi ng provider first prior to any administration should the patient be on existing/additional anticoagulant therapy. Range, Dosing and Testing : _ [facility], AND [facility] ONLY - aPTT < 35: Bolus 500 0 units, increase rate 300 units/hr - aPTT 35-44: Bolus 3000 units, increase rate 200 units/hr - aPTT 45-54: Increase rate 100 units/hr - aPTT 55-85: NO CHANGE - aPTT 86-95: Decrease rate 100 units/hr - aPTT 96-120: Hold 30 minutes, decrease rate 150 units/hr - aPTT > 120: Hold 60 minutes, decrease rate 200 units/hr Check aPTT 6 hours after initiation, then Q6H after every change, aPTT Q12H once therapeutic levels are reached. _ FOR [facility] ONLY - aPTT < 40: Bolus 5000 units, increase rate 3 00 units/hr - aPTT 40-49: Bolus 3000 units, increase rate 200 units/hr - aPTT 50-59: Increase rate 100 units/hr - aPTT 60-85: NO CHANGE - aPTT 86-95: Decrease rate 100 units/hr - aPTT 96-120: Hold 30 minutes, decrease rate 150 units/hr - aPTT > 120: Hold 60 minute s, decrease rate 200 units/hr Check aPTT 6 hours after initiation, then Q6H after every change, aPTT Q12H once therapeutic levels are reached . DO NOT ADJUST INITIAL BOLUS OR INITIAL INFUSION RATE., insulin glargine (LANTUS U-100) Given 03/13/2020 2:37 PM SENIOR INSTRUCTOR 11 Units Abdomen-SC injection 11 Units 11 Units, Subcutaneous, ONCE, 1 dose, Mon03/13/20 at 1215, Routine KCL (KLOR-CON M20) tablet 20 mEq Given 03/13/2020 9:07 AM SENIOR INSTRUCTOR 20 mEq 20 mEq, Oral, ONCE, 1 dose, Mon03/13/20 at 0815, Routine magnesium sulfate in water 2 gram/50 mL (4 %) New Bag 9:15 AM SENIOR INSTRUCTOR 2 g infusion 2 g 2 g, IV Piggyback, ONCE, 1 dose, Mon03/13/20 at 0815, Routine documented in this encounter Additional Health Concerns Infection Onset Date Last Indicated Resolved Time COVID-19 Rule Out 03/12/2020 03/12/2020 03/12/2020 8: 03 PM SENIOR INSTRUCTOR documented as of this encounter Insurance Payer Benefit Plan Subscriber ID Effective Phone Address Typ e / Group Dates [employer] [place] [employer] [place] [id number] 2012- [phone] [address]PO/POS [place] [facility] ent [id number] [place] [address] [facility] [id number] 2018-Aurelio Medic aid [employer] nt PLAN - MANAGED MEDICAID documented as of this encounter
--- OUTSIDE RECORDS SUMMARY | 2020-04-13 10:28 | XMS REPORT | Summary of Care ---
:1960 Author Organization [facility] Address [address] [place] [id number] Care Team Providers Name Role Phone Sánchez Queen Primary Care Provider Reason for Referral (Routine) Status Reason Specialty Diagnoses / Referred By Referred To Procedures Contact Contact New Request Cardiac Diagnoses Coronary artery disease involving passamaquoddy coronary artery of passamaquoddy heart without angina pectoris Essential hypertension Dyslipidemia ELLIS (dyspnea on exertion) Mckeon, [facility] Type 2 diabetes mellitus without complication, without long- term current use of insulin Rheumatoid arthritis, involving unspecified site, unspecified whether rheumatoid factor present MD Armida Procedures CONSULT/REFERRAL CARDIAC REHAB [address] [place] [address] Reason for Visit Reason Comments New Patient Hospital Follow up (Routine) Status Reason Specialty Diagnoses / Procedures Referred By Cristo richards To Contact Contact Authorized Cardiology Diagnoses Arteriosclerotic cardiovascular disease Christiano Núñez Procedures CONSULT/REFERRAL CARDIOLOGY [address] [facility] [address] [place] [address] Encounter Details Date Type Department Care Team Description 03/16/2020 Office Visit [facility] Mike Sendil Coronary criss ry disease involving pass[place]quoddy coronary artery of pass[place]dy heart without angina pectoris (Primary Dx); Cardiology- Marcin Huffman MD Essential hypertension; [address] Dyslipidemia; [facility], [address] ELLIS (dyspnea on exertion); [place], [place], [place] Type 2 diabetes mellitus without complication, without long-term current use of insulin; [id number] Rheumatoid arthritis, involving unspecif ied site, unspecified whether rheumatoid factor present [phone] Allergies Active Allergy Reactions Severity Noted Date Comments Iodine And Iodide Containing Products Rash 01/2016 documented as of this encounter (statuses as of 03/16/2020) Medications Medication Sig Dispensed Refills Start End Date Status Date Dextran Place 1 Drop in 0 Acti ve 70-Hypromellose both eyes as (ARTIFICIAL needed. TEARS) Dpet cycloSPORINE Place 1 Drop in 0 A ctive (RESTASIS) 0.05 % both eyes every drops 12 (twelve) hours. LANTUS SOLOSTAR inject 26 Units 2 Active U-100 INSULIN 100 under the skin 9 unit/mL (3 mL) every morning. injection tofacitinib Take 11 mg by 90 tablet 1 Acti ve (XELJANZ XR) 11 mouth daily. 9 mg [id number]: Rheumatoid arthritis, seropositive, Therapeutic drug monitoring methotrexate 5 mg Take 15 mg by 0 Active tablet mouth weekly. atorvastatin 40 Take 40 mg by 0 Active mg tablet mouth at bedtime. isosorbide Take 1 tablet by 30 tablet 3 Ac tive mononitrate 30 mg mouth daily. 1 24 hr tabletIndications : Chest pain, unspecified type metoprolol Take 0.5 tablets 30 tablet 3 07/12/19 Ac tive tartrate 25 mg by mouth 2 (two) 1 21 tabletIndications times daily for : Chest pain, 120 days. unspecified type nitroglycerin 0.4 Place 1 tablet 1 Bottle 3 Active mg sublingual under the tongue 1 tabletIndications every 5 (five) : Chest pain, minutes as unspecified type needed for Chest pain. dextromethorphan- Take 5 mL by 1 Bottle 2 Active guaifenesin mouth every 6 1 10-100 mg/5 mL (six) hours as solutionIndicatio needed for ns: Cough Cough. clopidogreL Take 1 tablet by 90 tablet 3 A ctive (PLAVIX) 75 mg mouth daily. 1 tabletIndications : Chest pain, unspecified type, Chest pain due to CAD aspirin 81 mg Take 1 tablet by 90 tablet 3 Active chewable mouth daily. 1 tabletIndications : Chest pain, unspecified type, Chest pain due to CAD losartan 25 mg Take 1 tablet by 30 tablet 2 Active tabletIndications mouth daily. 1 : Chest pain, unspecified type, Chest pain due to CAD gabapentin 300 mg Take 300 mg by 0 Active capsule mouth 2 (two) times daily. foLIC acid 1 mg Take 1 mg by 0 A ctive tablet mouth daily. except on date of methotrexate insulin aspart inject under 0 A ctive (NOVOLOG FLEXPEN the skin. Per U-100 INSULIN SC) sliding scale TRAMADOL 50 mg TAKE 1 TABLET BY 120 tablet 0 0 Discontinued tabletIndications MOUTH UP TO FOUR 0 21 (Therapy : Rheumatoid TIMES DAILY co mpleted) arthritis, NEEDED FOR PAIN seropositive documented as of this encounter (statuses as of 03/16/2020) Active Problems Problem Noted Date Chest pain due to CAD 03/12/2020 Proliferative diabetic retinopathy of both eyes with m acular edema 01/21/2019 associated with type 2 diabetes mellitus Overview: Added automatically from request for akshat henning [id number] NSVT (nonsustained ventricular tachycardia) 05/19/2017 Total knee [...] of hand 11/07/2012 Overview: ICD10 Diagnosis Term Validation Engineer Utility Diabetic peripheral neuropathy 11/06/2012 Diabetes mellitus type 2, uncontrolled, without compli cations 01/13/2012 Overview: ICD10 Diagnosis Term Validation Engineer Utility Obesity 01/13/2012 Overview: ICD10 Diagnosis Term Validation Engineer Utility HLD (hyperlipidemia) 01/13/2012 Overview: ICD10 Diagnosis Term Validation Engineer Utility Elevated BP 01/13/2012 Mild vitamin D deficiency 01/13/2012 Steroid long-term use 01/13/2012 Encounter for long-term (current) use of other medicat ions 07/19/2011 Raynaud's syndrome 07/28/2009 Rheumatoid arthritis 07/28/2009 Overview: ICD10 Diagnosis Term Validation Engineer Utility Encounter for long-term (current) use of [...] with No / Unsure 03/16/2020 8:45 AM LOOPING INSPECTOR someone who was confirmed or suspected to have Coronavirus / COVID-19? documented as of this encounter Last Filed Vital Signs Vital Sign Reading Time Taken Comments Blood Pressure 122/61 03/16/2020 9:00 AM LOOPING INSPECTOR Pulse 56 03/16/2020 9:00 AM LOOPING INSPECTOR Temperature - - Respiratory Rate 19 03/16/2020 9:00 AM LOOPING INSPECTOR Oxygen Saturation 93% 03/16/2020 9:00 AM LOOPING INSPECTOR Inhaled Oxygen Concentration - - Weight 94.7 kg (208 lb 12.8 oz) 03/16/2020 9:00 AM LOOPING INSPECTOR Height 154.9 cm (5' 1") 03/16/2020 9:00 AM LOOPING INSPECTOR Body Mass Index 39.45 03/16/2020 9:00 AM LOOPING INSPECTOR documented in this encounter Progress Notes Rachel Mckeon MD - 03/16/2020 9:00 AM CST [facility] Cardiology Consult Note Patient: Tamy Martinez Date of : 1960 Date of service: 03/16/2020 Primary Care Physician: Sánchez Queen CHIEF COMPLAINT: Chief Complaint Patient presents with New Patient Hospital Follow up HISTORY OF PRESENT ILLNESS: Tamy Martinez is a 59 year old female presented to the clinic for follow-up for evaluation for CAD. History from patient. Patient seen and examined in the room. Pertinent cardiac related history reviewed from chart Risk factors: Diabetes mellitus, hypertension, dyslipidemia, rheumatoid arthritis, CAD. Reports having chest discomfort in February 26. Patient was admitted in the [facility] in [place]. Underwent stress test which was reported to be abnormal subsequent to which had angiogram.. Then again had recurrent chest discomfort in March 04 underwent repeat angiogram and no further stent placed. Subsequent to which creatinine chest discomfort that happened at rest getting worse with exertion hence came to [facility] ER. Transfer to [place], serial troponins were negative. EKG within acceptable limits. Patient was discharged with close follow-up with us immediately after discharge. The bedside echocardiogram was done in the hospital and was reported to be preservedwith no significant wall motion changes. Currently feeling well on the whole. ELLIS NYHA class II noted. No recurrent chest discomfort noted No PND or orthopnea. No pedal edema. No exertional palpitations or palpitations at rest. No syncopalattacks. Reports compliance with the medication. Previous Cardiac Studies: IMAGING - I personally reviewed, pertinent results as below: ECG 03/13/2020 SR with narrow QRS complex. No sig ST changes. PAST MEDICAL HISTORY Past Medical History: Diagnosis Date Autoimmune disorder DM (diabetes mellitus) GERD (gastroesophageal reflux disease) HTN (hypertension) Hyperlipidemia Osteoarthrosis, unspecified whether generalized or localized, lower leg RA (rheumatoid arthritis) Seropositive, erosive with RF of 265 and CCP titer of 71 Right knee pain 08/05/2015 Urinary incontinence occasional stress incont Vitreous hemorrhage of left eye Past Surgical History: Procedure Laterality Date ARTHROSCOPY OF JOINT UNLISTED b/L knees SECTION ELBOW BURSECTOMY B/L ENDOLASER PHOTOCOAGULATION Left 02/04/2019 Surgeon: Joana Dean MD; Location: [place] [facility] LAPAROSCOPIC ADJUSTABLE GASTRIC BANDING 2009 LAPAROSCOPIC ADJUSTABLE GASTRIC BANDING 2009 OPEN CHOLECYSTECTOMY PARS PLANA VITRECTOMY Left 02/04/2019 Surgeon: Joana Dean MD; Location: [facility] [facility] TOTAL KNEE ARTHROPLASTY Left TOTAL KNEE ARTHROPLASTY Right 05/15/2017 Surgeon: Rex Pacheco MD; Location: [facility] TUBAL LIGATION Family History Problem Relation Age of Onset Cancer Mother Throat Cancer at 43 Heart Father MD (myocardial infarction) Father Cancer Maternal Grandmother unknown Arthritis NoFHx Asthma NoFHx defects NoFHx Breast Cancer NoFHx Colon Cancer NoFHx Ovarian Cancer NoFHx Uterine Cancer NoFHx Depression NoFHx Diabetes NoFHx Genetic NoFHx High cholesterol NoFHx Hypertension NoFHx Mental retardation NoFHx Neurological NoFHx Osteoporosis NoFHx Other - see comments NoFHx Psychiatry NoFHx SOCIAL HISTORY Social History Socioeconomic History Marital status: Spouse name: Not on file Number of children: 2 Years of education: Not on file Highest education level: Not on file Occupational History Not on file Social Needs Financial resource strain: Not on file Food insecurity Worry: Not on file Inability: Not on file Transportation needs Medical: Not on file Non-medical: Not on file Tobacco Use Smoking status: Never Smoker Smokeless tobacco: Never Used Substance and Sexual Activity Alcohol use: No Drug use: No Sexual activity: Not Currently Partners: Male Comment: last intercourse 3 months ago Lifestyle Physical activity Days per week: Not on file Minutes per session: Not on file Stress: Not on file Relationships Social connections Talks on phone: Not on file Gets together: Not on file Attends jainism service: Not on file Active member of club or organization: Not on file Attends meetings of clubs or organizations: Not on file Relationship status: Not on file Intimate partner violence Fear of current or ex partner: Not on file Emotionally abused: Not on file Physically abused: Not on file Forced sexual activity: Not on file Other Topics Concern Not on file Social History Narrative Denies domestic or physical violence within the home Yarsani Preference: Anabaptism ALLERGIES Allergies Allergen Reactions Ivp Dye [Iodine And Iodide Containing Products] Rash MEDICATIONS Patient's Medications START taking these medications No medications on file CONTINUE taking these medications which have NOT CHANGED ASPIRIN 81 MG CHEWABLE TABLET Take 1 tablet by mouth daily. ATORVASTATIN 40 MG TABLET Take 40 mg by mouth at bedtime. CLOPIDOGREL (PLAVIX) 75 MG TABLET Take 1 tablet by mouth daily. CYCLOSPORINE (RESTASIS) 0.05 % DROPS Place 1 Drop in both eyes every 12 (twelve) hours. DEXTRAN 70-HYPROMELLOSE (ARTIFICIAL TEARS) DPET Place 1 Drop in both eyes as needed. DEXTROMETHORPHAN-GUAIFENESIN 10-100 MG/5 ML SOLUTION Take 5 mL by mouth every 6 (six) hours as needed for Cough. FOLIC ACID 1 MG TABLET Take 1 mg by mouth daily. except on date of methotrexate GABAPENTIN 300 MG CAPSULE Take 300 mg by mouth 2 (two) times daily. INSULIN ASPART (NOVOLOG FLEXPEN U-100 INSULIN SC) inject under the skin. Per sliding scale ISOSORBIDE MONONITRATE 30 MG 24 HR TABLET Take 1 tablet by mouth daily. LANTUS SOLOSTAR U-100 INSULIN 100 UNIT/ML (3 ML) INJECTION inject 26 Units under the skin every morning. LOSARTAN 25 MG TABLET Take 1 tablet by mouth daily. METHOTREXATE 5 MG TABLET Take 15 mg by mouth weekly. METOPROLOL TARTRATE 25 MG TABLET Take 0.5 tablets by mouth 2 (two) times daily for 120 days. NITROGLYCERIN 0.[address] 1 tablet under the tongue every 5 (five) minutes as needed for Chest pain. TOFACITINIB (XELJANZ XR) 11 MG TB24 Take 11 mg by mouth daily. START taking Modified Medications as Prescribed No medications on file STOP taking these medications TRAMADOL 50 MG TABLET TAKE 1 TABLET BY MOUTH UP TO FOUR TIMES DAILY NEEDED FOR PAIN Current Outpatient Medications: foLIC acid 1 mg tablet, Take 1 mg by mouth daily. except on date of methotrexate, Disp: , Rfl: gabapentin 300 mg capsule, Take 300 mg by mouth 2 (two) times daily., Disp: , Rfl: insulin aspart (NOVOLOG FLEXPEN U-100 INSULIN SC), inject under the skin. Per sliding scale, Disp: , Rfl: aspirin 81 mg chewable tablet, Take 1 tablet by mouth daily., Disp: 90 tablet, Rfl: 3 clopidogreL (PLAVIX) 75 mg tablet, Take 1 tablet by mouth daily., Disp: 90 tablet, Rfl: 3 isosorbide mononitrate 30 mg 24 hr tablet, Take 1 tablet by mouth daily., Disp: 30 tablet, Rfl:3 losartan 25 mg tablet, Take 1 tablet by mouth daily., Disp: 30 tablet, Rfl: 2 metoprolol tartrate 25 mg tablet, Take 0.5 tablets by mouth 2 (two) times daily for 120 days., Disp: 30 tablet, Rfl: 3 atorvastatin 40 mg tablet, Take 40 mg by mouth at bedtime., Disp: , Rfl: methotrexate 5 mg tablet, Take 15 mg by mouth weekly., Disp: , Rfl: tofacitinib (XELJANZ XR) 11 mg Tb24, Take 11 mg by mouth daily., Disp: 90 tablet, Rfl: 1 LANTUS SOLOSTAR U-100 INSULIN 100 unit/mL (3 mL) injection, inject 26 Units under the skin every morning., Disp: , Rfl: 2 dextromethorphan-guaifenesin 10-100 mg/5 mL solution, Take 5 mL by mouth every 6 (six) hours asneeded for Cough., Disp: 1 Bottle, Rfl: 2 nitroglycerin 0.4 mg sublingual tablet, Place 1 tablet under the tongue every 5 (five) minutesas needed for Chest pain., Disp: 1 Bottle, Rfl: 3 cycloSPORINE (RESTASIS) 0.05 % drops, Place 1 Drop in both eyes every 12 (twelve) hours., Disp:, Rfl: Dextran 70-Hypromellose (ARTIFICIAL TEARS) Dpet, Place 1 Drop in both eyes as needed., Disp: , Rfl: REVIEW OF SYSTEMS: Comprehensive 10-system review was conducted and were negative except for what's noted in the HPI. The following systems were reviewed: Constitutional, cardiovascular, respiratory, gastrointestinal, genitourinary, musculoskeletal, neurologic, psychiatric, endocrinological, and hematological. PHYSICAL EXAMINATION: Vitals: 03/16/20 0900 BP: 122/61 BP Location: Left arm Patient Position: Sitting BP CUFF SIZE: Adult Large Pulse: 56 Resp: 19 SpO2: 93% Weight: 208 lb 12.8 oz (94.7 kg) Height: 5' 1" (1.549 m) General: no apparent distress HEENT: normocephalic atraumatic Neck: supple, no lymphadenopathy, no bruits, no JVD Lungs: clear to auscultation bilaterally. No wheezes or rhonchi. No increased work of breathing. Cardio: Regular rate and rhythm, S1&S2 normal, no murmurs, rubs or gallops Abdomen: soft; non-tender; non-distended; normoactive bowel sounds. : not examined Rectal: not examined Extremities: no clubbing, cyanosis, or edema. Skin: no rashes, no visible lesions. Neuro: no gross focal deficits LABS - Reviewed pertinent labs as below: CBC BMP PT/INR WBC x10^3 (/uL) Date Value 07/24/2014 7.3 WBC (10*3/L) Date Value 03/13/2020 6.73 NA Date Value 03/13/2020 135 mmol/L 04/29/2014 140 MMOL/L No results found for: PT PLT x10^3 (/uL) Date Value 07/24/2014 235 PLT (10*3/L) Date Value 03/13/2020 236 K Date Value 03/13/2020 3.9 mmol/L 04/29/2014 4.4 MMOL/L INR (no units) Date Value 03/13/2020 1.0 HGB Date Value 03/13/2020 12.0 g/dL 07/24/2014 14.0 G/DL BUN Date Value 03/13/2020 19 mg/dL 04/29/2014 13 MG/DL HCT (%) Date Value 03/13/2020 35.6 (L) 07/24/2014 40.1 CREATININE Date Value 03/13/2020 0.88 mg/dL 07/24/2014 0.63 MG/DL LIPID PROFILE GLUCOSE Date Value 03/13/2020 347 mg/dL (H) 04/29/2014 335 MG/DL (H) CHOL (mg/dL) Date Value 03/13/2020 124 TSH LDL CHOL (mg/dL) Date Value 03/13/2020 45 TSH Date Value 03/12/2020 0.68 mIU/L 04/29/2014 0.84 uIU/mL CARDIAC ENZYMES HDL (mg/dL) Date Value 03/13/2020 41 (L) No results found for: CK TRIG (mg/dL) Date Value 03/13/2020 192 (H) LFTs No results found for: CKMB AST(SGOT) (U/L) Date Value 03/13/2020 27 07/24/2014 20 TROPONIN I (ng/mL) Date Value 03/13/2020 0.004 ALT(SGPT) (U/L) Date Value 12/25/2017 17 07/24/2014 25 ALTv (U/L) Date Value 03/13/2020 23 No results found for: BNP LDL CHOL (mg/dL) Date Value 03/13/2020 45 Recent Labs 03/13/20 0653 TROPNI 0.004 Recent Labs 03/13/20 0050 TRIG 192* LDL CHOL (mg/dL) Date Value 03/13/2020 45 No results found for: NTBNP ASSESSMENT/PLAN 1. Coronary artery disease involving pass[place]qu[place] coronary artery of pass[place]dy heart without angina pectorisCONSULT/REFERRAL CARDIAC REHAB 2. Essential hypertension CONSULT/REFERRAL CARDIAC REHAB 3. Dyslipidemia CONSULT/REFERRAL CARDIAC REHAB 4. ELLIS (dyspnea on exertion) CONSULT/REFERRAL CARDIAC REHAB 5. Type 2 diabetes mellitus without complication, without long-term current use of insulin CONSULT/REFERRAL CARDIAC REHAB 6. Rheumatoid arthritis, involving unspecified site, unspecified whether rheumatoid factor present CONSULT/REFERRAL CARDIAC REHAB CAD s/p PCI 02/2020 in [facility]: EKG dated 03/13/2020 was reviewed. Reviewed discharge summary from recent admission in [facility]. No recurrent chest pain history elicited. ELLIS NYHA class II stable. On aspirin/Plavix 25 mg daily. Reviewed the importance of taking DAPT for at least one year without interruption. Discussed the implication for not taking DAPT. Patient verbalized understanding. Risk and benefits of DAPT explained. On metoprolol 12.5 twice daily/Imdur 30 mg daily. Based on the response we can consider increasing the metoprolol or Imdur Recommended cardiac rehab referral. ELLIS NYHA class II: Multifactorial etiology: In the setting of underlying CAD/diastolic dysfunction/deconditioning/obesity. We will plan for NT proBNP is routine labs at follow-up in 3 months. HTN: Stable/controlled. Continue losartan 25 daily/metoprolol 12.5 twice daily/Imdur 30 mg daily Home BP log recommended. Cross check his BP machine. Appropriate ways to check home BP discussed. Goals BP < 130/80 stressed. Explained if BP > 130/80, adviced to send us the log. Lifestyle modifications stressed. Dyslipidemia: At goal. Recommended to keep LDL < 70. Lifestyle modifications stressed. Currently on Lipitor 40 mg daily LDL CHOL (mg/dL) Date Value 03/13/2020 45 T2DM: Uncontrolled. Recommended to follow-up with the PCP/endocrinology for better control of bloodsugar. Obese: Recommended lifestyle modification/risk factor modification/weight reduction diet/adequate exercises. Body mass index is 39.45 kg/m. Follow-up in 6 weeks. We will plan for vascular work-up after the next office visit along with the routine labs/echocardiogram in 3 months Apr-may 2020. Orders Placed This Encounter Procedures CONSULT/REFERRAL CARDIAC REHAB Requested Prescriptions No prescriptions requested or ordered in this encounter Patient's diease process and its evaluation and treatment were discussed. We discussed each of for cardio vascular-related problems and discussed long-term goals and expectations for the each problem.I reviewed each of the cardiac medications in detail. Reviewed the medication with patient in detail recommended to continue taking the current medications without further changes other than changes mentioned above. Recommended goal BP < 130/80 consistently, LDL << 70, HbA1c < 6.5. Recommended, explained and stressed the importance of healthy eating habits and exercises and lifestyle modifications Follow up as planned is predicated on symptoms stability and/or acceptable test results. Patient is urged to call in sooner should problems arise or if there is no improvement in cardiac symptoms. ER warning signs and symptoms explained and patient verbalized understanding. My diagnostic impression and treatment plans were discussed at length with the patient. All side effects as well as drug-drug interactions and risks discussed at length. Ample opportunity was offered and encouraged to ask questions during this visit and patient appreciated the answers given by me andverbzalised statisfcation in the answers given. We reviewed the [place] [employer] recommendations for reduction of overall cardio vascular risk. The importance of monitoring the blood pressure carefully both at home on regular basis along with other physicians appointment was stressed in detail. In addition we discussed target LDL levels for optimal risk reduction. It was advised that to daily physical activity be performed with 30 minutes of sustained exercise for both cardio vascular fitness and improvement for generalized medical health and well-being. Thank you for allowing us to participate in the care of Tamy Martinez. If you have any questions or concerns please feel free to call our office at [phone]. I would be happy to be of further assistance for Tamy Martinez wellbeing. Saurabh Mckeon MD [facility], Division of Cardiology [facility] documented in this encounter Plan of Treatment Date Type Specialty Care Team Description 03/19/2020 Office Visit Allergy & Immunology: Emile Pérez MD Internal Medicine [address] [place], [place] [address] [phone] 04/27/2020 Office Visit Cardiology Rachel Mckeon MD [address] [place], [place] [address] 05/11/2020 Office Visit Ophthalmology Carmelina Chaidez M D [address] [place] [phone] Health Maintenance Due Date Last Done [...] of this encounter Implants Implanted Type Area Turning Lathe Tender Device Shelf Model / Identifier Expiration Date Ser ial / Lot [employer] Bone [employer]ement CEMENT Right: Biomet 05/13 [id number] / Implanted: Qty: 1 on 05/15/2017 by Rex Argueta MD at [facility] Knee 8 [id number] / [id number] Open Box Femoral-Right KNEE Right: Biomet 04/2026 [id number] / Implanted: Qty: 1 on 05/15/2017 by Rex Argueta MD at [facility] Knee J [id number] / [id number] Adc Plate Tibial Cruciate 67 Mm - [id number] PLATE Right: Biomet 01/16/2027 [id number] / Implanted: Qty: 1 on 05/15/2017 by Rex Argueta MD at [facility] Knee J [id number] / [id number] Adc Patella 31 X 8 Mm - [id number] Right: Biomet 12/31/2021 [id number] / Implanted: Qty: 1 on 05/15/2017 by Rex Argueta MD at [facility] Knee 6 [id number] / [id number] Bearing Tib 10 X 63/67 Mm #[id number] - [id number] Right: Biomet 01/24/2022 [id number] / Implanted: Qty: 1 on 05/15/2017 by Rex Argueta MD at [facility] Knee [id number] / [id number] documented as of this encounter Results Not on filedocumented in this encounter Visit Diagnoses Diagnosis Coronary artery disease involving pass[place] coronary artery of pass[place]dy heart without angina pectoris - Primary Essential hypertension Unspecified essential hypertension Dyslipidemia Other and unspecified hyperlipidemia ELLIS (dyspnea on exertion) Other dyspnea and respiratory abnormalit y Type 2 diabetes mellitus without complic ation, without long-term current use of insulin Rheumatoid arthritis, involving unspecif ied site, unspecified whether rheumatoid factor present documented in this encounter Insurance Payer Benefit Plan Subscriber ID Effective Phone Address Typ e / Group Dates [place]BS OF [id number] 2012-Pres [phone] [address] PPO/POS [place] - OUT ent [id number] [place] [address] [facility] [id number] 2018-Aurelio Medic [facility] COMM STAR PLUS nt PLAN - MANAGED MEDICAID documented as of this encounter
--- OUTSIDE RECORDS SUMMARY | 2020-04-13 10:28 | XMS REPORT | Summary of Care ---
:1960 Author Organization [facility] Address [address] [place] [address] Care Team Providers Name Role Phone Sánchez Queen Primary Care Provider Reason for Referral (Routine) Status Reason Specialty Diagnoses / Referred By Referred To Procedures Contact Contact New Request Cardiac Diagnoses Coronary artery disease involving eagle coronary artery of eagle heart without angina pectoris Essential hypertension Dyslipidemia ELLIS (dyspnea on exertion) Mckeon, Sendil [facility] Type 2 diabetes mellitus without complication, without long- term current use of insulin Rheumatoid arthritis, involving unspecified site, unspecified whether rheumatoid factor present MD Armida Procedures CONSULT/REFERRAL CARDIAC REHAB [address] [place] [address] Reason for Visit Reason Comments New Patient Hospital Follow up (Routine) Status Reason Specialty Diagnoses / Procedures Referred By Cristo richards To Contact Contact Authorized Cardiology Diagnoses Arteriosclerotic cardiovascular disease Christiano Núñez Procedures CONSULT/REFERRAL CARDIOLOGY [address] [facility] [address] [place] [address] Encounter Details Date Type Department Care Team Description 03/16/2020 Office Visit [facility] Mike Sendil Coronary criss ry disease involving eagle coronary artery of eagle heart without angina pectoris (Primary Dx); Cardiology- Marcin Huffman MD Essential hypertension; [address] Dyslipidemia; [facility], [address] ELLIS (dyspnea on exertion); [place], [place], [place] Type 2 diabetes mellitus without complication, without long-term current use of insulin; [phone] Rheumatoid arthritis, involving unspecif ied site, unspecified whether rheumatoid factor present [phone] Allergies Active Allergy Reactions Severity Noted Date [...] (XELJANZ XR) 11 mouth daily. 9 mg [id number]: Rheumatoid arthritis, seropositive, Therapeutic drug monitoring methotrexate [...] Added automatically from request for akshat henning [id number] NSVT (nonsustained ventricular tachycardia) 05/19/2017 Total knee [...] of hand 11/07/2012 Overview: ICD10 Diagnosis Term Army Ranger Utility Diabetic peripheral neuropathy 11/06/2012 Diabetes mellitus type 2, uncontrolled, without compli cations 01/13/2012 Overview: ICD10 Diagnosis Term Army Ranger Utility Obesity 01/13/2012 Overview: ICD10 Diagnosis Term Army Ranger Utility HLD (hyperlipidemia) 01/13/2012 Overview: ICD10 Diagnosis Term Army Ranger Utility Elevated BP 01/13/2012 Mild vitamin D deficiency 01/13/2012 Steroid long-term use 01/13/2012 Encounter for long-term (current) use of other medicat ions 07/19/2011 Raynaud's syndrome 07/28/2009 Rheumatoid arthritis 07/28/2009 Overview: ICD10 Diagnosis Term Army Ranger Utility Encounter for long-term (current) use of [...] with No / Unsure 03/16/2020 8:45 AM HR CLERK someone who was confirmed or suspected to have Coronavirus / COVID-19? documented as of this encounter Last Filed Vital Signs Vital Sign Reading Time Taken Comments Blood Pressure 122/61 03/16/2020 9:00 AM HR CLERK Pulse 56 03/16/2020 9:00 AM HR CLERK Temperature - - Respiratory Rate 19 03/16/2020 9:00 AM HR CLERK Oxygen Saturation 93% 03/16/2020 9:00 AM HR CLERK Inhaled Oxygen Concentration - - Weight 94.7 kg (208 lb 12.8 oz) 03/16/2020 9:00 AM HR CLERK Height 154.9 cm (5' 1") 03/16/2020 9:00 AM HR CLERK Body Mass Index 39.45 03/16/2020 9:00 AM HR CLERK documented in this encounter Progress Notes Rachel Mckeon MD - 03/16/2020 9:00 AM CST [facility] Cardiology Consult Note Patient: Tamy Martinez [...] February 26. Patient was admitted in the [facility] in [place]. Underwent stress test which was reported to be abnormal subsequent to which had angiogram.. Then again had recurrent chest discomfort in March 04 underwent repeat angiogram and no further stent placed. Subsequent to which creatinine chest discomfort that happened at rest getting worse with exertion hence came to [facility] ER. Transfer to [place], serial troponins were negative. EKG within acceptable [...] Left 02/04/2019 Surgeon: Joana Dean MD; Location: [facility] LAPAROSCOPIC ADJUSTABLE GASTRIC BANDING 2009 LAPAROSCOPIC ADJUSTABLE GASTRIC BANDING 2009 OPEN CHOLECYSTECTOMY PARS PLANA VITRECTOMY Left 02/04/2019 Surgeon: Joana Dean MD; Location: [facility] TOTAL KNEE ARTHROPLASTY Left TOTAL KNEE ARTHROPLASTY Right 05/15/2017 Surgeon: Rex Pacheco MD; Location: [facility] OR [facility] TUBAL LIGATION Family History Problem Relation Age of Onset Cancer Mother Throat Cancer at 43 Heart Father [place] (myocardial infarction) Father Cancer Maternal Grandmother unknown [...] file Gets together: Not on file Attends moravian service: Not on file Active member of [...] domestic or physical violence within the home Worship Preference: [employer]ism ALLERGIES Allergies Allergen Reactions Ivp Dye [Iodine [...] NTBNP ASSESSMENT/PLAN 1. Coronary artery disease involving eagle coronary artery of eagle heart without angina pectorisCONSULT/REFERRAL CARDIAC REHAB 2. Essential hypertension CONSULT/REFERRAL CARDIAC REHAB 3. Dyslipidemia CONSULT/REFERRAL CARDIAC REHAB 4. ELLIS (dyspnea on exertion) CONSULT/REFERRAL CARDIAC REHAB 5. Type 2 diabetes mellitus without complication, without long-term current use of insulin CONSULT/REFERRAL CARDIAC REHAB 6. Rheumatoid arthritis, involving unspecified site, unspecified whether rheumatoid factor present CONSULT/REFERRAL CARDIAC REHAB CAD s/p PCI 02/2020 in [facility]: EKG dated 03/13/2020 was reviewed. Reviewed discharge summary from recent admission in [facility]. No recurrent chest pain history elicited. ELLIS [...] in the answers given. We reviewed the [place] [employer] recommendations for reduction of overall [...] feel free to call our office at [phone]. I would be happy to be of further assistance for Tamy Martinez wellbeing. Saurabh Mckeon MD Logistic Manager, Division of Cardiology [facility] documented in this encounter Plan of Treatment Date Type Specialty Care Team Description 03/19/2020 Office Visit Allergy & Immunology: Emile Pérez MD Internal Medicine [address] [place], [place] [address] [phone] 04/27/2020 Office Visit Cardiology Rachel Mckeon MD [address] [place], [place] [phone] 05/11/2020 Office Visit Ophthalmology Carmelina Chaidez M D [address] [place] [phone] Health Maintenance Due Date Last Done [...] of this encounter Implants Implanted Type Area Melt Down Furnace Operator Device Shelf Model / Identifier Expiration Date Ser ial / Lot Palacos R [employer] G Bone Cement CEMENT Right: Biomet 05/13 [id number] / Implanted: Qty: 1 on 05/15/2017 by Rex Argueta MD at [facility] Knee 8 [id number] / [id number] Ps Open Box Femoral-Right KNEE Right: Biomet 04/2026 [id number] / Implanted: Qty: 1 on 05/15/2017 by Rex Argueta MD at [facility] Knee J [id number] / [id number] Adc Plate Tibial Cruciate 67 Mm - [id number] PLATE Right: Biomet 01/16/2027 [id number] / Implanted: Qty: 1 on 05/15/2017 by Rex Argueta MD at [facility] Knee J [id number] / [id number] Adc Patella 31 X 8 Mm - [id number] Right: Biomet 12/31/2021 [id number] / Implanted: Qty: 1 on 05/15/2017 by Rex Argueta MD at [facility] Knee 6 [id number] / [id number] Bearing Tib 10 X 63/67 Mm #[id number] - [id number] Right: Biomet 01/24/2022 [id number] / Implanted: Qty: 1 on 05/15/2017 by Rex Argueta MD at [facility] Knee 7 [id number] / [id number] documented as of this encounter Results Not on filedocumented in this encounter Visit Diagnoses Diagnosis Coronary artery disease involving eagle coronary artery of eagle heart without angina pectoris - Primary Essential [...] Typ e / Group Dates [place]BS [place] [id number] 2012-Pres [phone] P [address] BOX PPO/POS [place] - OUT ent [phone] [id number] [place] [address] [facility] [id number] 2018-Aurelio Medic [facility] COMM STAR PLUS nt PLAN - MANAGED MEDICAID documented as of this encounter
--- OUTSIDE RECORDS SUMMARY | 2020-04-13 10:29 | XMS REPORT | Summary of Care ---
:1960 Author Organization [facility] Address [address] [place] [address] Care Team Providers Name Role Phone Sánchez Queen Primary Care Provider Reason for Visit Reason Comments Assessment CP, SOB Encounter Details Date Type Department Care Team Description 03/26/2020 Telephone [facility] Cardiology- Rachel Mckeon, Assessment (CP, SOB) Marcin RYAN [address] [place] [address], [address] [place] [address] [place], [place] [phone] Allergies Active Allergy Reactions Severity Noted Date Comments Iodine And Iodide Containing Products Rash 01/2016 documented as of this encounter (statuses as of 03/26/2020) Medications Medication Sig Dispensed Refills Start Date [...] 1 9 Active XR) 11 mg daily. [id number]: Rheumatoid arthritis, seropositive, Therapeutic drug monitoring methotrexate [...] as of this encounter (statuses as of 03/26/2020) Active Problems Problem Noted Date Chest pain due to CAD 03/12/2020 Proliferative diabetic retinopathy of both eyes with m acular edema 01/21/2019 associated with type 2 diabetes mellitus Overview: Added automatically from request for akshat juvencio [id number] NSVT (nonsustained ventricular tachycardia) 05/19/2017 Total knee [...] of hand 11/07/2012 Overview: ICD10 Diagnosis Term Oyster Picker Utility Diabetic peripheral neuropathy 11/06/2012 Diabetes mellitus type 2, uncontrolled, without compli cations 01/13/2012 Overview: ICD10 Diagnosis Term Oyster Picker Utility Obesity 01/13/2012 Overview: ICD10 Diagnosis Term Oyster Picker Utility HLD (hyperlipidemia) 01/13/2012 Overview: ICD10 Diagnosis Term Oyster Picker Utility Elevated BP 01/13/2012 Mild vitamin D deficiency 01/13/2012 Steroid long-term use 01/13/2012 Encounter for long-term (current) use of other medicat ions 07/19/2011 Raynaud's syndrome 07/28/2009 Rheumatoid arthritis 07/28/2009 Overview: ICD10 Diagnosis Term Oyster Picker Utility Encounter for long-term (current) use of steroids 07/11 Chronic pain syndrome 07/28/2009 documented as of this encounter (statuses as of 03/26/2020) Immunizations Name Administration Dates Next Due Influenza [...] with No / Unsure 03/16/2020 8:45 AM BUSINESS OFFICE REPRESENTATIVE someone who was confirmed or suspected to have Coronavirus / COVID-19? documented as of this encounter Last Filed Vital Signs Not on filedocumented in this encounter Miscellaneous Notes Telephone Encounter - Kristel Guerra RN - 03/26/2020 10:59 AM CSTPatient states she is having CP, SOB and tingling in arms and fingers. Advised to go to ER for evaluation. S/P stenting 3 weeks ago at [facility]. Patient verbalized understanding and will go in to ER. elephone Encounter - Live Don - 03/26/2020 10:55 AM CSTPt is calling because she states that when she seen the provider last he told her to call if she started to have any symptoms. Sh states that she is having CP, MANISHA and her cath site is now numb and itsnow hard to walk. She states that her cath procedure was 3-4 weeks ago. Please contact patient [phone] (home) documented in this encounter Plan of Treatment Date Type Specialty Care Team Description 04/27/2020 Office Visit Cardiology Rachel Mckeon MD [address] [place] [phone] 05/11/2020 Office Visit Ophthalmology Carmelina Chaidez M D [address] [place] [phone] Health Maintenance Due Date Last Done [...] of this encounter Implants Implanted Type Area Provider Service Representative Device Shelf Model / Identifier Expiration Date Ser ial / Lot Palacos R [employer] G Bone Cement CEMENT Right: Biomet 05/13 [id number] / Implanted: Qty: 1 on 05/15/2017 by Rex Argueta MD at [facility] Knee 8 [id number] / [id number] Ps Open Box Femoral-Right KNEE Right: Biomet 04/2026 [id number] / Implanted: Qty: 1 on 05/15/2017 by Rex Argueta MD at [facility] Knee J [id number] / [id number] Adc Plate Tibial Cruciate 67 Mm - [id number] PLATE Right: Biomet 01/16/2027 [id number] / Implanted: Qty: 1 on 05/15/2017 by Rex Argueta MD at [facility] Knee J [id number] / [id number] Adc Patella 31 X 8 Mm - [id number] Right: Biomet 12/31/2021 [id number] / Implanted: Qty: 1 on 05/15/2017 by Rex Argueta MD at [facility] Knee 6 [id number] / [id number] Bearing Tib 10 X 63/67 Mm #[id number] - [id number] Right: Biomet 01/24/2022 [id number] / Implanted: Qty: 1 on 05/15/2017 by Rex Argueta MD at [facility] Knee 7 [id number] / [id number] documented as of this encounter Results Not on filedocumented in this encounter Insurance Payer Benefit Plan Subscriber ID Effective Phone Address Typ e / Group Dates BCBS [place] BCBS OF [id number] 2012- [phone] [address] PPO/POS [place] - [facility] [id number] [place] [address] [facility] [id number] 2018-Aurelio Medic aid HEALTHCARE COMM STAR PLUS nt PLAN - MANAGED MEDICAID documented as of this encounter
--- OUTSIDE RECORDS SUMMARY | 2020-04-13 10:29 | XMS REPORT | Summary of Care ---
:1960 Author Organization [facility] - Health Address [address] [place] [address] Care Team Providers Name Role Phone Sánchez Queen Primary Care Provider Encounter Details Date Type Department Care Team Description 03/16/2020 Orders Only [facility] Doctor Unassigned, No [address] [facility] [place] [address] Allergies Active Allergy Reactions Severity Noted Date Comments Iodine And Iodide Containing Products Rash 01/2016 documented as of this encounter (statuses as of 03/18/2020) Medications Medication Sig Dispensed Refills Start Date [...] 1 9 Active XR) 11 mg daily. [id number]: Rheumatoid arthritis, seropositive, Therapeutic drug monitoring methotrexate [...] as of this encounter (statuses as of 03/18/2020) Active Problems Problem Noted Date Chest pain due to CAD 03/12/2020 Proliferative diabetic retinopathy of both eyes with m acular edema 01/21/2019 associated with type 2 diabetes mellitus Overview: Added automatically from request for akshat juvencio [id number] NSVT (nonsustained ventricular tachycardia) 05/19/2017 Total knee [...] of hand 11/07/2012 Overview: ICD10 Diagnosis Term Welder/Fabricator Utility Diabetic peripheral neuropathy 11/06/2012 Diabetes mellitus type 2, uncontrolled, without compli cations 01/13/2012 Overview: ICD10 Diagnosis Term Welder/Fabricator Utility Obesity 01/13/2012 Overview: ICD10 Diagnosis Term Welder/Fabricator Utility HLD (hyperlipidemia) 01/13/2012 Overview: ICD10 Diagnosis Term Welder/Fabricator Utility Elevated BP 01/13/2012 Mild vitamin D deficiency 01/13/2012 Steroid long-term use 01/13/2012 Encounter for long-term (current) use of other medicat ions 07/19/2011 Raynaud's syndrome 07/28/2009 Rheumatoid arthritis 07/28/2009 Overview: ICD10 Diagnosis Term Welder/Fabricator Utility Encounter for long-term (current) use of steroids 07/11 Chronic pain syndrome 07/28/2009 documented as of this encounter (statuses as of 03/18/2020) Immunizations Name Administration Dates Next Due Influenza [...] with No / Unsure 03/16/2020 8:45 AM BELT MAKER HELPER someone who was confirmed or suspected to have Coronavirus / COVID-19? documented as of this encounter Last Filed Vital Signs Not on filedocumented in this encounter Plan of Treatment Date Type Specialty Care Team Description 03/19/2020 Office Visit Allergy & Immunology: Emile Pérez MD Internal Medicine [address] [place] [address] 04/27/2020 Office Visit Cardiology Rachel Mckeon MD [address] [place], [place] [phone] 05/11/2020 Office Visit Ophthalmology Carmelina Chaidez M D [address] [place] [phone] Health Maintenance Due Date Last Done [...] of this encounter Implants Implanted Type Area Stopper Setter Device Shelf Model / Identifier Expiration Date Ser ial / Lot Palacos R [employer] G Bone Cement CEMENT Right: Biomet 05/13 [id number] / Implanted: Qty: 1 on 05/15/2017 by Rex Argueta MD at [facility] Knee 8 [id number] / [id number] Ps Open Box Femoral-Right KNEE Right: Biomet 04/2026 [id number] / Implanted: Qty: 1 on 05/15/2017 by Rex Argueta MD at [facility] Knee J [id number] / [id number] Adc Plate Tibial Cruciate 67 Mm - [id number] PLATE Right: Biomet 01/16/2027 [id number] / Implanted: Qty: 1 on 05/15/2017 by Rex Argueta MD at [facility] Knee J [id number] / [id number] Adc Patella 31 X 8 Mm - [id number] Right: Biomet 12/31/2021 [id number] / Implanted: Qty: 1 on 05/15/2017 by Rex Argueta MD at [facility] Knee 6 [id number] / [id number] Bearing Tib 10 X 63/67 Mm #[id number] - [id number] Right: Biomet 01/24/2022 [id number] / Implanted: Qty: 1 on 05/15/2017 by Rex Argueta MD at [facility] Knee 7 [id number] / [id number] documented as of this encounter Procedures Procedure Name Priority Date/Time Associated Diagnosis Comme nts AUTHORIZATION TO RELEASE Routine 03/16/2020 12:01 AM PHI TO [facility] BELT MAKER HELPER documented in this encounter Results Not on filedocumented in this encounter Insurance Payer Benefit Plan Subscriber ID Effective Phone Address Typ e / Group Dates [facility] BCBS OF [id number] 2012-Pres [phone] [address] PPO/POS [place] - OUT ent [id number] [place] [address] [facility] [id number] 2018-Prese Medic aid HEALTHCARE COMM STAR PLUS nt PLAN - MANAGED MEDICAID documented as of this encounter
--- OUTSIDE RECORDS SUMMARY | 2020-04-13 10:30 | XMS REPORT | Summary of Care ---
:1960 Author Organization [facility] Address [address] [place] [address] Care Team Providers Name Role Phone Sánchez Queen Primary Care Provider Reason for Referral Other (MANJU) Status Reason Specialty Diagnoses / Procedures Referred By Cristo zeeed To Contact Contact New Request Diagnoses Chest pain, unspecified type Atypical chest pain BMI 36.0-36.9,adult Chronic pain syndrome Hyperlipidemia, unspecified hyperlipidemia type Yani Bustos Prasad, Sendil Procedures Discharge Follow-up: Specialty Provider RACHEL REEDHGhassan; 3-5 Days MAINTENANCE CUSTODIAN MD Armida [address] [place] [address] X [phone] Phone: Radiology Services (STAT) Status Reason Specialty Diagnoses / Referred By Referred To Procedures Contact Contact New Request Diagnostic Diagnoses Chest pain, unspecified type Yani Bustos, Radiology Procedures Chest 1 View MAINTENANCE CUSTODIAN [address] [place] [address] Reason for Visit Reason Comments Chest Pain Auth/Cert Status Reason Specialty Diagnoses / Referred By Referred To Procedures Contact Contact Emergency Medicine [facility] [address] [place] [address] Fax: Encounter Details Date Type Department Care Team Description 03/26/2020 Emergency [facility] Bustos, Yani, Atypical chest pain (Primary Dx); Department MAINTENANCE CUSTODIAN Chest pain, unspecified type; [address] [place] [address] Blvd BMI 36.0-36.9,adult; Drive [place], [place] Chronic pain syndrome; [place] [phone] Hyperlipidemia, unspecified hyperlipidem ia type [phone] Allergies Active Allergy Reactions Severity Noted Date Comments Iodine And Iodide Containing Products Rash 01/2016 Shellfish Derived Anaphylaxis 03/26/2020 documented as of this encounter (statuses as [...] 1 9 Active XR) 11 mg daily. [id number]: Rheumatoid arthritis, seropositive, Therapeutic drug monitoring methotrexate [...] Added automatically from request for akshat henning [id number] NSVT (nonsustained ventricular tachycardia) 05/19/2017 Total knee [...] of hand 11/07/2012 Overview: ICD10 Diagnosis Term Mental Health Clinician Utility Diabetic peripheral neuropathy 11/06/2012 Diabetes mellitus type 2, uncontrolled, without compli cations 01/13/2012 Overview: ICD10 Diagnosis Term Mental Health Clinician Utility Obesity 01/13/2012 Overview: ICD10 Diagnosis Term Mental Health Clinician Utility HLD (hyperlipidemia) 01/13/2012 Overview: ICD10 Diagnosis Term Mental Health Clinician Utility Elevated BP 01/13/2012 Mild vitamin D deficiency 01/13/2012 Steroid long-term use 01/13/2012 Encounter for long-term (current) use of other medicat ions 07/19/2011 Raynaud's syndrome 07/28/2009 Rheumatoid arthritis 07/28/2009 Overview: ICD10 Diagnosis Term Mental Health Clinician Utility Encounter for long-term (current) use of [...] been in contact with No / Unsure 03/26/2020 11:41 AM LINING VAMPER someone who was confirmed or suspected to have Coronavirus / COVID-19? documented as of this encounter Last Filed Vital Signs Vital Sign Reading Time Taken Comments Blood Pressure 139/85 03/26/2020 5:00 PM LINING VAMPER Pulse 61 03/26/2020 5:00 PM LINING VAMPER Temperature 36.4 C (97.6 F) 03/26/2020 11:47 AM LINING VAMPER Respiratory Rate 18 03/26/2020 5:00 PM LINING VAMPER Oxygen Saturation 97% 03/26/2020 5:00 PM LINING VAMPER Inhaled Oxygen Concentration - - Weight 94.3 kg (208 lb) 03/26/2020 11:47 AM LINING VAMPER Height - - Body Mass Index 39.3 03/16/2020 9:00 AM LINING VAMPER documented in this encounter Discharge Instructions Yani Iniguez FNP - 1Please return to the ER if you have any increasing chest pain, fever, chills, nausea, vomiting, worsening shortness of breath, or any other symptom you feel is abnormal. Please follow up with your primary care doctor as soon as possible. Thank you. AttachmentsThe following attachments cannot be sent through Care Everywhere. Chest Pain, Uncertain Cause (Malaysian)documented in this encounter ED Notes Jackie Skinner, RN - 03/26/2020 11:45 AM CSTChest pain coming to the ER for chest pain onset at 7 am. Patient had a heart cath done on on the Feb 26 and . Patient reports having chest pain that goes to her shoulders, left leg with tingling and reports SOB. documented in this encounter Miscellaneous Notes ED Nurse Note - Gemini Carballo RN - 03/26/2020 6:12 PM CSTPatient provided discharge instructions, AVS, Return precautions, and told to follow-up with PCP. Patient verbalized understanding of discharge instructions and ambulated out of ED in no acute distress. D Nurse Note - Jackie Skinner RN - 03/26/2020 5:41 PM CSTPatient awaiting ride. NG VAMPER documented in this encounter Plan of Treatment Date Type Specialty Care Team Description 04/27/2020 Office Visit Cardiology Rachel Reed MD [address] [place] [phone] 05/11/2020 Office Visit Ophthalmology Carmelina Chaidez M D [address] [place] [address] [phone] Name Type Priority Associated Diagnoses Date/Ti me EKG-12 LEAD ROUTINE HEART STATION STAT Chest pain, unspecif ied 03/26/2020 12:02 PM ONCE type LINING VAMPER Name Type Priority Associated Diagnoses Order S chedule EKG-12 LEAD HEART STATION STAT Chest pain, ONCE for 1 Occ urrences ROUTINE ONCE unspecified type starting until Health Maintenance Due Date Last Done Comments [...] of this encounter Implants Implanted Type Area Customer Sales Consultant Device Shelf Model / Identifier Expiration Date Ser ial / Lot [employer] Bone Cement CEMENT Right: Biomet 05/13 [id number] / Implanted: Qty: 1 on 05/15/2017 by Rex Argueta MD at [facility] Knee 8 [id number] / [id number] Ps Open Box Femoral-Right KNEE Right: Biomet 04/2026 [id number] / Implanted: Qty: 1 on 05/15/2017 by Rex Argueta MD at [facility] Knee J [id number] / [id number] Adc Plate Tibial Cruciate 67 Mm - [id number] PLATE Right: Biomet 01/16/2027 [id number] / Implanted: Qty: 1 on 05/15/2017 by Rex Argueta MD at [facility] Knee J [id number] / [id number] Adc Patella 31 X 8 Mm - [id number] Right: Biomet 12/31/2021 [id number] / Implanted: Qty: 1 on 05/15/2017 by Rex Argueta MD at [facility] Knee 6 [id number] / [id number] Bearing Tib 10 X 63/67 Mm #[id number] - [id number] Right: Biomet 01/24/2022 [id number] / Implanted: Qty: 1 on 05/15/2017 by Rex Argueta MD at [facility] Knee 7 [id number] / [id number] documented as of this encounter Procedures Procedure Name Priority Date/Time Associated Diagnosis Comme nts TROPONIN I STAT 03/26/2020 4:20 Chest pain, Results for this PM LINING VAMPER unspecified type procedure a re in the results section. URINALYSIS STAT 03/26/2020 12:50 Chest pain, Results for this PM LINING VAMPER unspecified type procedure a re in the results section. XR CHEST 1 VW STAT 03/26/2020 12:18 Chest pain, Results fo r this PM LINING VAMPER unspecified type procedure a re in the results section. N-TERMINAL PRO-BNP STAT 03/26/2020 12:13 Chest pain, Resul ts for this PM LINING VAMPER unspecified type procedure a re in the results section. PROTHROMBIN TIME / STAT 03/26/2020 12:13 Chest pain, Resul ts for this INR PM LINING VAMPER unspecified type procedure a re in the results section. CBC WITH DIFF STAT 03/26/2020 12:13 Chest pain, Results fo r this PM LINING VAMPER unspecified type procedure a re in the results section. BASIC METABOLIC STAT 03/26/2020 12:13 Chest pain, Results for this PANEL (NA, K, CL, PM LINING VAMPER unspecified type proced ure are in CO2, GLUCOSE, BUN, the resul ts CREATININE, CA) section. HEPATIC FUNCTION STAT 03/26/2020 12:13 Chest pain, Results for this PANEL (67355) PM LINING VAMPER unspecified type procedure are in (ALB,T.PRO,BILI the results T,BU/BC,ALT,AST,ALK section. PHOS) TROPONIN I STAT 03/26/2020 12:13 Chest pain, Results for this PM LINING VAMPER unspecified type procedure a re in the results section. LIPASE STAT 03/26/2020 12:13 Chest pain, Results for this PM LINING VAMPER unspecified type procedure a re in the results section. CONSENT/REFUSAL FOR Routine 03/26/2020 11:41 DIAGNOSIS AND AM LINING VAMPER TREATMENT documented in this encounter Results TROPONIN I (03/26/2020 4:20 PM LINING VAMPER) Pathologist Sig nature TROPONIN I <0.012 <=0.034 ng/mL [facility] Specimen Blood - VENOUS Narrative Performed At Equal or Less than 0.034 ng/ml---Normal [facility] Note: Cardiac troponin begins to [...] patient's use of biotin. Performing Organization Address City/State/Zipcode Phone Number [facility] CLIA: [id number] [place] [address] Urinalysis (03/26/2020 12:50 PM LINING VAMPER) Pathologist Sig nature APPEARANCE Clear Clear [facility] COLOR Yellow Yellow [facility] PH 6.0 4.8 - 8.0 [facility] SP GRAVITY 1.023 1.003 - 1.030 [facility] GLU U QUAL 500 mg/dL (A) Normal [facility] BLOOD Negative Negative [facility] KETONES Negative Negative [facility] PROTEIN Negative Negative [facility] UROBILIN Normal Normal [facility] BILIRUBIN Negative Negative [facility] NITRITE Negative Negative [facility] LEUK VALERIE 25/uL (A) Negative [facility] RBC/HPF 1 0 - 3 HPF [facility] WBC/HPF 2 0 - 5 HPF [facility] BACTERIA Negative Negative [facility] SQ EPITH 2 HPF [facility] Specimen Urine - URINE, CLEAN CATCH Performing Organization Address [facility] Phone Number [facility] CLIA: [id number] [place] [address] Chest 1 View (03/26/2020 12:18 PM LINING VAMPER) Specimen Narrative Performed At This result has an attachment that is no t available. HISTORY: Chest pain. PACS/VR/DOSE TECHNIQUE: Portable AP erect view of the chest is obta ined. Comparison made with 03/12/2020 study. FINDINGS: No acute pneumonia. No pneumothorax or pleur al effusion or pulmonary congestion detected. Cardiac size is within normal limits. CONCLUSIONS: No signs of acute cardiopulmonary disease . Procedure Note [facility], Radiant Results Inft User - 2020 12:23 PM LINING VAMPER HISTORY: Chest pain. TECHNIQUE: Portable AP erect view of the chest is obtained. Comparison made with 03/12/2020 study. FINDINGS: No acute pneumonia. No pneumot horax or pleural effusion or pulmonary congestion detected. Cardiac s ize is within normal limits. CONCLUSIONS: No signs of acute cardiopul monary disease. Performing Organization Address [facility] Phone Number PACS/VR/DOSE N-TERMINAL PRO-BNP (03/26/2020 12:13 PM LINING VAMPER) Pathologist Sig nature NT-proBNP 326 (H) <=125 pg/mL [facility] Specimen Blood - VENOUS Narrative Performed At Biotin has been reported to cause a negative [facility] bias, interpret results relative to patient's use of biotin. Performing Organization Address [facility]/Zipcode Phone Number [facility] CLIA: [id number] [place] [address] Prothrombin Time (PT) / INR (03/26/2020 12:13 PM LINING VAMPER) PROTIME PATIENT 13.2 12.0 - 14.7 [facility] LABORATORY INR 1.1Comment: Normal [facility] INR <1.1; Warfarin [facility] Therapeutic range LABORATORY 2.0 to 3.0 or 2.5 to 3.5, depending upon the indications. Specimen Blood - VENOUS Performing Organization Address [facility] Phone Number [facility] CLIA: [id number] [place] [address] LABORATORY [address] [facility] Lipase Serum (03/26/2020 12:13 PM LINING VAMPER) Pathologist Sig [facility] LIPASE 93 0 - 220 U/L [facility] Specimen Blood - VENOUS Performing Organization Address [facility] Phone Number [facility] CLIA: [id number] [place] [address] LABORATORY [address] [facility] Troponin I (03/26/2020 12:13 PM LINING VAMPER) Pathologist Sig [facility] TROPONIN I <0.012 <=0.034 ng/mL [facility] Specimen Blood - VENOUS Narrative Performed At Equal or Less than 0.034 ng/ml---Normal [facility] Note: Cardiac troponin begins to [...] patient's use of biotin. Performing Organization Address [facility] Phone Number [facility] CLIA: [id number] [place] [address] Hepatic Function Panel (ALB, T.PRO, BILI T, BU/BC, ALT, AST, ALK PHOS) (03/26/2020 12:13 PM LINING VAMPER) Pathologist Sig [facility] TOTAL BILI 0.8 0.1 - 1.1 mg/dL [facility] BILI UNCON 0.7 0.1 - 1.1 mg/dL [facility] BILI CONJ 0.0 0.0 - 0.3 mg/dL [facility] T PROTEIN 7.2 6.3 - 8.2 g/dL [facility] ALBUMIN 4.1 3.5 - 5.0 g/dL [facility] ALK PHOS 121 34 - 122 U/L [facility] ALTv 22 5 - 35 U/L [facility] AST(SGOT) 29 13 - 40 U/L [facility] Specimen Blood - VENOUS Performing Organization Address City/State/Zipcode Phone Number [facility] CLIA: [id number] [place] [address] Basic Metabolic Panel (NA, K, CL, CO2, GLUCOSE, BUN, CREATININE, CA) (03/26/2020 12:13 PM LINING VAMPER) [facility] NA 134 (L) 135 - 145 [facility] mmol/L [facility] K 4.3 3.5 - 5.0 [facility] mmol/L [facility] CL 96 (L) 98 - 108 mmol/L [facility] CO2 TOTAL 29 23 - 31 mmol/L [facility] AGAP 9 2 - 16 [facility] BUN 21 7 - 23 mg/dL [facility] GLUCOSE 339 (H) 70 - 110 mg/dL [facility] CREATININE 0.92 0.50 - 1.04 [facility] mg/dL [facility] CALCIUM 8.9 8.6 - 10.6 [facility] mg/dL [facility] eGFR Calculation 62.9 mL/min/1.73m2 [facility] (Non[facility] LABORATORY Cameroonian) eGFR Calculation 76.3 mL/min/1.73m2 [facility] () [facility] Specimen Blood - VENOUS Narrative Performed At Association of Glomerular Filtration Rate (GFR) [facility] and Staging of Kidney Disease* + [...] tests). Performing Organization Address City/State/Zipcode Phone Number [facility] CLIA: [id number] [place] [address] CBC with Differential (03/26/2020 12:13 PM LINING VAMPER) Pathologist Sig nature WBC 7.26 4.30 - 11.10 [facility] 10*3/L [facility] RBC 4.18 3.93 - 5.25 [facility] 10*6/L [facility] HGB 12.3 11.6 - 15.0 g/dL [facility] HCT 35.7 35.7 - 45.2 % [facility] MCV 85.4 80.6 - 95.5 fL [facility] MCH 29.4 25.9 - 32.8 pg [facility] MCHC 34.5 31.6 - 35.1 g/dL [facility] RDW-SD 45.3 39.0 - 49.9 fL [facility] RDW-CV 14.6 12.0 - 15.5 % [facility] PLT 255 166 - 358 [facility] 10*3/L [facility] MPV 9.7 9.5 - 12.9 fL [facility] NRBC/100 WBC 0.0 0.0 - 10.0 /100 [facility] WBCs [facility] NRBC x10^3 <0.01 10*3/L [facility] GRAN MAT (NEUT) % 64.6 % [facility] IMM GRAN % 0.30 % [facility] LYMPH % 24.0 % [facility] MONO % 6.9 % [facility] EOS % 3.6 % [facility] BASO % 0.6 % [facility] GRAN MAT x10^3(ANC) 4.70 1.88 - 7.09 [facility] 10*3/uL [facility] IMM GRAN x10^3 <0.03 0.00 - 0.06 [facility] 10*3/uL [facility] LYMPH x10^3 1.74 1.32 - 3.29 [facility] 10*3/uL [facility] MONO x10^3 0.50 0.33 - 0.92 [facility] 10*3/uL [facility] EOS x10^3 0.26 0.03 - 0.39 [facility] 10*3/uL [facility] BASO x10^3 0.04 0.01 - 0.07 [place] [address]/[facility] LABORATORY Specimen Blood - VENOUS Performing Organization Address City/State/Zipcode Phone Number [facility] CLIA: [id number] [place] [address] documented in this encounter Visit Diagnoses Diagnosis Atypical chest pain - Primary Other chest pain Chest pain, unspecified type BMI 36.0-36.9,adult Body Mass Index 36.0-36.9, adult Chronic pain syndrome Hyperlipidemia, unspecified hyperlipidem ia type documented in this encounter Administered Medications Medication Order MAR Action Action Date Dose Rate Site nitroglycerin (NITROSTAT) Given 03/26/2020 1:53 PM LINING VAMPER 0.4 mg sublingual tablet 0.4 mg 0.4 mg, Sublingual, Q5MIN PRN, 3 doses, Starting Lisa 03/26/20 at 1329, Until Discontinued, MANJU, Chest pain Medication Order MAR Action Action Date Dose Rate Site aspirin tablet 325 mg Given 03/26/2020 12:14 PM LINING VAMPER 325 mg 325 mg, Oral, ONCE, 1 dose, Lisa 03/26/20 at 1215, STAT documented in this encounter Insurance Payer Benefit Plan Subscriber ID Effective Phone Address Typ e / Group Dates [place] OF [id number] 2012-Pres [phone] [address] PPO/POS [place] - OUT ent [id number] [place] [address] [facility] [id number] 2018-Prese Medic aid HEALTH[employer]ARE COMM STAR PLUS nt PLAN - MANAGED MEDICAID documented as of this encounter"
[2020-04-13 10:48] LABS: Absolute Lymphocytes (CBC) 1.1 K/uL (0.7-4.9); Basophils % 0.6 % (0-1.3); Lymphocytes % 15.8 % (15.3-44.8); RBC Red Blood Cell Count 3.95 M/uL (3.86-4.86)
[2020-04-13] MEDS ORDERED: ASPIRIN 81 MG CHEWABLE TABLET ONE (10:48)
[2020-04-13] MEDS ORDERED: NA CHLORIDE 0.9% 500 ML ONE (10:49)
[2020-04-13] MEDS ORDERED: NITROGLYCERIN 0.4 MG/TAB SL ONE (10:49)
[2020-04-13 10:51] LABS: Protime INR 0.95
[2020-04-13 11:08] LABS: ALT/SGPT 20 U/L (12-78); AST/SGOT 14 U/L (15-37); Albumin 3.3 g/dL (3.4-5.0); Alkaline Phosphatase 141 U/L (45-117); BUN Blood Urea Nitrogen 21 mg/dL (7-18); Bicarbonate 28 mmol/L (21-32); Bilirubin Direct 0.2 mg/dL (0-0.2); Bilirubin Total 0.4 mg/dL (0.2-1.0); Glucose Level 339 mg/dL (74-106); Magnesium 1.9 mg/dL (1.8-2.4); NT PRO-BNP 450 pg/mL (<125); Potassium 4.2 mmol/L (3.5-5.1); Protein, Total 7.2 g/dL (6.4-8.2); Sodium Level 138 mmol/L (136-145); Troponin (Emerg Dept Use Only) < 0.02 ng/mL (0.0-0.045)
--- NOTE | 2020-04-13 11:28 | RAD REPORT ---
EXAM DESCRIPTION: Ivis Single View2 10:51 am CLINICAL HISTORY: Chest pain COMPARISON: February 2020 FINDINGS: The lungs appear clear of acute infiltrate. The heart is normal size IMPRESSION: No acute abnormalities displayed
[2020-04-13] MEDS ORDERED: INSULIN -REGULAR HUMAN 50 UNIT/0.5 ML ML ONE (11:57)
--- NOTE | 2020-04-13 11:58 | EDPHYS ---
Physician Documentation [facility] Name: Tamy Martinez Age: 60 yrs Sex: Female : 1960 Arrival Date: 04/13/2020 Time: 09:54 Bed 8 Private MD: ED Physician Shyam Johnson HPI: 04/13 10:25 This 60 yrs old Female presents to ER via Ambulatory with complaints of Chest cp Pain. 10:25 The patient or guardian reports chest pain that is located primarily in the anterior cp chest wall, left. 10:25 Onset: 30 minute(s) ago. The pain radiates to the right arm, Associated signs and cp symptoms: Pertinent positives: tingling of right fingertips, Pertinent negatives: abdominal pain, cough, diaphoresis, dizziness, lower extremity pain, lower extremity swelling, palpitations. The chest pain is described as a pressure. Duration: The patient or guardian reports a single episode, that is still ongoing, but improving. Patient reports chest pain started while walking in store this morning. Patient reports taking baby aspirin this morning and history of MT in February 2020 with stent placement by DR Mcdonald. Historical: - Allergies: 10:18 Iodinated Contrast Media - IV Dye; ca1 - Home Meds: 10:18 Novolog Sub-Q [Active]; Lantus 100 unit/mL Sub-Q soln [Active]; losartan Oral [Active]; ca1 Xeljanz Oral [Active]; aspirin Oral [Active]; 10:20 Plavix Oral [Active]; ca1 - PMHx: 10:18 Diabetes - IDDM; Hypertension; Hypertension resolved after lap band; Rheumatoid ca1 Arthritis; Myocardial infarction; - PSHx: 10:18 lap band and reversal; Heart stents; ca1 - Immunization history:: Pneumococcal vaccine is up to date, Flu vaccine is up to date. - Social history:: Smoking status: Patient denies any tobacco usage or history of. ROS: 10:28 Constitutional: Negative for body aches, chills, fever, poor PO intake. cp 10:28 Eyes: Negative for injury, pain, redness, and discharge. cp 10:28 ENT: Negative for ear pain, sore throat, difficulty swallowing, difficulty handling secretions. 10:28 Cardiovascular: Positive for chest pain, Negative for edema, palpitations. 10:28 Respiratory: Negative for cough, shortness of breath, wheezing. 10:28 Abdomen/GI: Negative for abdominal pain, nausea, vomiting, and diarrhea, constipation, black/tarry stool, rectal bleeding. 10:28 Back: Negative for injury or acute deformity. 10:28 Neuro: Positive for tingling, of the right hand, Negative for altered mental status, headache, weakness. 10:28 All other systems are negative. Exam: 10:30 ECG was reviewed by the Attending Physician. cp 10:33 Constitutional: The patient appears in no acute distress, alert, awake, cp non-diaphoretic, non-toxic, well developed, well nourished. 10:33 Head/Face: Normocephalic, atraumatic. cp 10:33 Eyes: Periorbital structures: appear normal, Conjunctiva: normal, no exudate, no injection, Sclera: no appreciated abnormality, Lids and lashes: appear normal, bilaterally. 10:33 ENT: External ear(s): are unremarkable, Nose: is normal, Posterior pharynx: Airway: no evidence of obstruction, patent. 10:33 Neck: ROM/movement: is normal, is supple, no meningismus, no nuchal rigidity. 10:33 Chest/axilla: Inspection: normal, Palpation: is normal, no crepitus, no tenderness. 10:33 Cardiovascular: Rate: normal, Rhythm: regular, Edema: is not appreciated, JVD: is not appreciated. 10:33 Respiratory: the patient does not display signs of respiratory distress, Respirations: normal, no use of accessory muscles, no retractions, labored breathing, is not present, Breath sounds: are clear throughout, no decreased breath sounds, no stridor, no wheezing. 10:33 Abdomen/GI: Inspection: abdomen appears normal, Palpation: abdomen is soft and non-tender, in all quadrants, rebound tenderness, is not appreciated, voluntary guarding, is not appreciated, involuntary guarding, is not appreciated. 10:33 Neuro: Orientation: to person, place \T\ time. Mentation: is normal, Cerebellar function: is grossly normal, Motor: moves all fours, strength is normal, Sensation: no obvious gross deficits. Vital Signs: 10:12 Pulse 67; Resp 16 S; Temp 97.3(TE); Pulse Ox 99% on R/A; Weight 91.17 kg (R); Height 5 ca1 ft. 1 in. (154.94 cm) (R); Pain 8/10; 10:18 BP 122 / 52; ca1 10:47 BP 118 / 67; Pulse 58; Resp 15; Pulse Ox 99% ; jl7 12:00 BP 140 / 91; Pulse 67; Resp 15; Pulse Ox 100% ; jl7 13:30 BP 159 / 66; Pulse 61; Resp 15; Pulse Ox 100% ; jl7 13:30 BP 112 / 60; Pulse 52; Resp 15; Pulse Ox 98% ; jl7 10:12 Body Mass Index 37.98 (91.17 kg, 154.94 cm) ca1 MDM: 10:29 Patient medically screened. cp 11:00 Differential diagnosis: abnormal EKG, acute myocardial infarction, acute pericarditis, cp pneumonia, pneumothorax, pulmonary embolus, stable angina, thoracic aortic disection, unstable angina. 11:53 Physician consultation: Errol Trishapita was called at 11:54, was contacted at 11:54, cp regarding admission, to the telemetry unit. patient's condition. 12:00 Data reviewed: vital signs, nurses notes, lab test result(s), EKG, radiologic studies, cp plain films. 12:00 The patient was given aspirin in the Emergency Department. Test interpretation: by ED cp physician or midlevel provider: ECG, plain radiologic studies. Counseling: I had a detailed discussion with the patient and/or guardian regarding: the historical points, exam findings, and any diagnostic results supporting the discharge/admit diagnosis, lab results, radiology results, the need for further work-up and treatment in the hospital. 04/13 10:22 Order name: Basic Metabolic Panel cp 04/13 10:22 Order name: CBC with Diff cp 04/13 10:22 Order name: LFT's; Complete Time: 11:35 cp 04/13 11:36 Interpretation: Normal except: AST 14; ALK 141; ALB 3.3; GLOB 3.9; A/G 0.8. cp 04/13 10:22 Order name: Magnesium; Complete Time: 11:35 cp 04/13 10:22 Order name: NT PRO-BNP; Complete Time: 11:35 cp 04/13 10:22 Order name: PT-INR; Complete Time: 11:35 cp 04/13 10:22 Order name: Troponin (emerg Dept Use Only); Complete Time: 11:35 cp 04/13 10:22 Order name: XRAY Chest (1 view); Complete Time: 11:35 cp 04/13 10:23 Order name: Basic Metabolic Panel; Complete Time: 11:35 EDMS 04/13 11:36 Interpretation: Normal except: GLUC 339; BUN 21; GFR 54. cp 02 10:23 Order name: CBC with Automated Diff; Complete Time: 11:35 EDMS 04/13 12:49 Order name: SARS-COV-2 RT PCR EDMS 04/13 15:01 Order name: Glucose, Ancillary Testing EDMS 04/13 10:19 Order name: EKG; Complete Time: 10:19 ca1 04/13 10:19 Order name: EKG - Nurse/Tech; Complete Time: 10:19 ca1 04/13 10:22 Order name: Cardiac monitoring; Complete Time: 10:30 cp 04/13 10:22 Order name: IV Saline Lock; Complete Time: 10:43 cp 04/13 10:22 Order name: Labs collected and sent; Complete Time: 10:43 cp 04/13 10:22 Order name: O2 Per Protocol; Complete Time: 10:43 cp 04/13 10:22 Order name: O2 Sat Monitoring; Complete Time: 10:43 cp EC:30 Rate is 61 beats/min. Rhythm is regular. AL interval is normal. QRS interval is normal. cp QT interval is normal. T waves are Inverted in lead aVR. Interpreted by me. Reviewed by me. Administered Medications: 10:32 Drug: Nitroglycerin 0.4 mg Route: Sublingual; jl7 10:40 Follow up: Response: No adverse reaction; Pain is decreased jl7 10:33 Drug: NS 0.9% 500 ml Route: IV; Rate: bolus; Site: right forearm; jl7 11:15 Follow up: IV Status: Completed infusion; IV Intake: 500ml jl7 10:34 Drug: Aspirin Chewable Tablet 162 mg Route: PO; jl7 11:03 Follow up: Response: No adverse reaction jl7 11:48 Drug: NovoLIN R 10 units {Co-Signature: aa5 (Nellie Omalley RN).} Route: Sub-Q; Site: jl7 right lower abdomen; 15:24 Follow up: Response: Blood sugar is lowered jl7 Disposition: 18:19 Co-signature as Attending Physician, Shyam Johnson MD. ma2 Disposition: 04/13/20 11:57 Hospitalization ordered by Errol Jj for Observation. Preliminary diagnosis is Angina pectoris, unspecified. - Bed requested for Telemetry/MedSurg (observation). - Status is Observation. sf - Condition is Stable. - Problem is new. - Symptoms have improved. Signatures: Dispatcher [employer] EDIL Vilma Saldivar RN RN Ildefonso Lutz PA PA cp Leal, Jahala, RN RN jl7 Shyma Johnson MD MD ma2 Shyla Tamez RN RN ca1 Mukesh Jesus RN RN sf Nellie Omalley RN aa5 Corrections: (The following items were deleted from the chart) 12:03 10:30 CORONAVIRUS+MR.LAB.BRZ ordered. [facility] EDIL 13:49 11:57 Hospitalization Ordered by Errol Jj for Observation. Preliminary diagnosis dw is Angina pectoris, unspecified. Bed requested for Telemetry/MedSurg (observation). Status is Observation. Condition is Stable. Problem is new. Symptoms have improved. cp 15:51 13:49 04/13/2020 11:57 Hospitalization Ordered by Errol Jj for Observation. sf Preliminary diagnosis is Angina pectoris, unspecified. Bed requested for Telemetry/MedSurg (observation). Status is Observation. Condition is Stable. Problem is new. Symptoms have improved. dw
--- NOTE | 2020-04-13 11:58 | ER ---
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 Previous heart attack on 02/26/2021. Reports SOB with CP. Denies cough. States, "pain feels like the previous heart attack". Coronavirus screen: Client denies travel out of the [place] in the last 14 days. shortness of breath, Client presents with at least one sign or symptom that may indicate coronavirus-19. Standard/surgical mask placed on the client. Provider contacted for isolation considerations. Ebola Screen: Patient negative for fever greater than or equal to 101.5 degrees Fahrenheit, and additional compatible Ebola Virus Disease symptoms Patient denies exposure to infectious person. Patient denies travel to an Ebola-affected area in the 21 days before illness onset. No symptoms or risks identified at this time. Initial Sepsis Screen: Does the patient meet any 2 criteria? No. Patient's initial sepsis screen is negative. Does the patient have a suspected source of infection? No. Patient's initial sepsis screen is negative. Risk Assessment: Do you want to hurt yourself or someone else? Patient reports no desire to harm self or others. Onset of symptoms was April 13, 2020. 10:12 Method Of Arrival: Ambulatory ca1 10:12 Acuity: HODAN 2 ca1 Triage Assessment: 10:18 Cardiovascular: Rhythm is sinus rhythm. ca1 Historical: - Allergies: 10:18 Iodinated Contrast Media - IV Dye; ca1 - Home Meds: 10:18 Novolog Sub-Q [Active]; Lantus 100 unit/mL Sub-Q soln [Active]; losartan Oral [Active]; ca1 Xeljanz Oral [Active]; aspirin Oral [Active]; 10:20 Plavix Oral [Active]; ca1 - PMHx: 10:18 Diabetes - IDDM; Hypertension; Hypertension resolved after lap band; Rheumatoid ca1 Arthritis; Myocardial infarction; - PSHx: 10:18 lap band and reversal; Heart stents; ca1 - Immunization history:: Pneumococcal vaccine is up to date, Flu vaccine is up to date. - Social history:: Smoking status: Patient denies any tobacco usage or history of. Screenin:47 Abuse screen: Denies threats or abuse. Denies injuries from another. Nutritional jl7 screening: No deficits noted. Tuberculosis screening: No symptoms or risk factors identified. Fall Risk IV access (20 points). Total Green Fall Scale indicates No Risk (0-24 pts). Assessment: 10:25 General: Appears in no apparent distress. uncomfortable, Behavior is calm, cooperative, jl7 appropriate for age, anxious. Pain: Complains of pain in mid-sternal area Pain radiates to right arm Pain currently is 8 out of 10 on a pain scale. Quality of pain is described as pressure, Pain began 0915 Is continuous. Neuro: Level of Consciousness is awake, alert, obeys commands, Oriented to person, place, time, situation. Cardiovascular: Patient's skin is warm and dry. Rhythm is regular. Respiratory: Airway is patent Respiratory effort is even, unlabored, Respiratory pattern is regular, symmetrical. GI: Reports nausea. Derm: Skin is pink, warm \\T\\ dry. 12:00 Reassessment: Patient appears in no apparent distress at this time. No changes from jl7 previously documented assessment. Patient and/or family updated on plan of care and expected duration. Pain level reassessed. Patient is alert, oriented x 3, equal unlabored respirations, skin warm/dry/pink. 13:00 Reassessment: Patient appears in no apparent distress at this time. No changes from jl7 previously documented assessment. Patient and/or family updated on plan of care and expected duration. Pain level reassessed. Patient is alert, oriented x 3, equal unlabored respirations, skin warm/dry/pink. 14:00 Reassessment: Patient appears in no apparent distress at this time. No changes from jl7 previously documented assessment. Patient and/or family updated on plan of care and expected duration. Pain level reassessed. Patient is alert, oriented x 3, equal unlabored respirations, skin warm/dry/pink. 15:00 Reassessment: Patient appears in no apparent distress at this time. No changes from jl7 previously documented assessment. Patient and/or family updated on plan of care and expected duration. Pain level reassessed. Patient is alert, oriented x 3, equal unlabored respirations, skin warm/dry/pink. Vital Signs: 10:12 Pulse 67; Resp 16 S; Temp 97.3(TE); Pulse Ox 99% on R/A; Weight 91.17 kg (R); Height 5 ca1 ft. 1 in. (154.94 cm) (R); Pain 8/10; 10:18 BP 122 / 52; ca1 10:47 BP 118 / 67; Pulse 58; Resp 15; Pulse Ox 99% ; jl7 12:00 BP 140 / 91; Pulse 67; Resp 15; Pulse Ox 100% ; jl7 13:30 BP 159 / 66; Pulse 61; Resp 15; Pulse Ox 100% ; jl7 13:30 BP 112 / 60; Pulse 52; Resp 15; Pulse Ox 98% ; jl7 10:12 Body Mass Index 37.98 (91.17 kg, 154.94 cm) ca1 ED Course: 09:54 Patient arrived in ED. ag5 10:16 Triage completed. ca1 10:18 Arm band placed on right wrist. ca1 10:20 EKG done, by ED staff, reviewed by Shyam Johnson MD. jl7 10:20 Patient maintains SpO2 saturation greater than 95% on room air. jl7 10:21 Ildefonso Jasso PA is PHCP. cp 10:21 Alphonse Rebolledo MD is Attending Physician. cp 10:25 Patient has correct armband on for positive identification. Placed in gown. Bed in low jl7 position. Call light in reach. Side rails up X 1. cardiac monitor on. Pulse ox on. NIBP on. 10:29 Lakshmi Villeda, MAY is Primary Nurse. jl7 10:30 Shyam Johnson MD is Attending Physician. cp 10:35 Initial lab(s) drawn, by nd, sent to lab. COVID swab sent to lab. Inserted saline lock: jl7 20 gauge in right forearm, using aseptic technique. Blood collected. 10:51 XRAY Chest (1 view) In Process Unspecified. EDMS 11:54 Errol Jj is Hospitalizing Provider. cp 15:19 No provider procedures requiring assistance completed. Patient admitted, IV remains in jl7 place. intact, No redness/swelling at site. Administered Medications: 10:32 Drug: Nitroglycerin 0.4 mg Route: Sublingual; jl7 10:40 Follow up: Response: No adverse reaction; Pain is decreased jl7 10:33 Drug: NS 0.9% 500 ml Route: IV; Rate: bolus; Site: right forearm; jl7 11:15 Follow up: IV Status: Completed infusion; IV Intake: 500ml jl7 10:34 Drug: Aspirin Chewable Tablet 162 mg Route: PO; jl7 11:03 Follow up: Response: No adverse reaction jl7 11:48 Drug: NovoLIN R 10 units {Co-Signature: aa5 (Nellie Omalley RN).} Route: Sub-Q; Site: jl7 right lower abdomen; 15:24 Follow up: Response: Blood sugar is lowered jl7 Intake: 11:15 IV: 500ml; Total: 500ml. jl7 Outcome: 11:57 Decision to Hospitalize by Provider. cp 15:19 Admitted to Tele accompanied by tech, via wheelchair, room 222, with chart, Report jl7 called to MAY Avendaño 15:19 Condition: stable 15:19 Discharge instructions given to patient, Instructed on the need for admit, Demonstrated understanding of instructions. 15:51 Patient left the ED. 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 Previous heart attack on 02/26/2021. Reports SOB with CP. Denies cough ca1
--- NOTE | 2020-04-13 13:10 | P.HP ---
Certification for Inpatient Patient admitted to: Observation With expected LOS: <2 Midnights Practitioner: I am a practitioner with admitting privileges, knowledge of patient current condition, hospital course, and medical plan of care. Services: Services provided to patient in accordance with Admission requirements found in Title 42 Section 412.3 of the Code of Federal Regulations Patient History Date of Service: 04/13/20 Reason for admission: Chest pain History of Present Illness: 60-year-old woman with a history of coronary artery disease, status post stent on 02/27/2020 have had recurrent chest pain since then and has been hospitalized multiple times. Last hospitalization for chest pain was is there 03/30/2020 at [facility]. Patient was here on 03/06/2020 4 chest pain episode, had a cardiac catheterization repeated with no PCI. Patient stated she has been experiencing intermittent chest pain which is worsened with exertion. Patient presents again with chest pain of onset this morning when she got to her PCPs office for routine visit. Patient was mailed to the emergency department for evaluation. Her initial troponin in the ED is negative, EKG demonstrated nonspecific ST-T changes. Patient described anterior chest pain radiating to her left jaw and arm. She stated the chest pain improved with nitroglycerin given in the ED. Patient is hospitalized for further evaluation and management. Allergies Iodinated Contrast Media [Iodinated Contrast Media - Oral and] Allergy (Severe, Verified 03/13/17 21:21) Unknown iodine [Iodine] Allergy (Severe, Verified 04/11/16 14:05) Itching and swelling Home Medications: Gabapentin [Neurontin] 600 mg PO BID 02/25/20 Insulin Aspart [Novolog] See Protocol SQ ACHS 02/25/20 Insulin Glargine Human [Lantus*] 26 units SQ BREAKFAST 02/25/20 Losartan Potassium [Cozaar] 25 mg PO DAILY 02/25/20 Tofacitinib Citrate [Xeljanz Xr] 1 tab PO DAILY 02/25/20 Aspirin [Aspirin EC 81 MG] 162 mg PO DAILY #60 tablet. 02/28/20 Atorvastatin Calcium [Lipitor] 40 mg PO BEDTIME #30 tab 02/28/20 Clopidogrel Bisulfate [Plavix*] 75 mg PO DAILY #30 tablet 02/28/20 Vitamin D [Drisdol*] 50,000 unit PO Q7D@0900 #10 cap 12/18/20 Methotrexate [Methotrexate*] 3 tab PO Q7D 03/05/20 - Past Medical/Surgical History Diabetic: Yes -: Diabetes mellitus type 2 -: HTN -: Rheuamtoid Arthritis -: Degenerative disk and joint disease of the spine -: Lap band 2009 -: x2 -: Left knee replacement -: Cholecystectomy -: right knee replacement Psychosocial/ Personal History: She is , has 2 children. She does not work. - Family History Father -: Hypertension Notes: brother had IL at 30; Mother -: Cancer Notes: esophageal - Social History Alcohol use: No CD- Drugs: No Caffeine use: No Review of Systems Other: Except as documented, all other systems reviewed and negative. Physical Examination - Physical Exam General: Alert, In no apparent distress, Oriented x3 HEENT: PERRLA, Mucous membr. moist/pink, EOMI Neck: Supple, JVD not distended, No Thyromegaly Respiratory: Clear to auscultation bilaterally, Normal air movement, Crackles/rales Cardiovascular: No edema, Regular rate/rhythm, Normal S1 S2 Capillary refill: <2 Seconds Gastrointestinal: Normal bowel sounds, Soft and benign, Non-distended, No tenderness Musculoskeletal: No swelling, No tenderness Integumentary: No rashes, No erythema Neurological: Normal speech, Normal strength at 5/5 x4 extr, Cranial nerves 3-12 intact - Studies Laboratory Data (last 24 hrs) 04/13/20 10:30: PT 11.2, INR 0.95 04/13/20 10:30: WBC 6.70, Hgb 11.8 L, Hct 34.0 L, Plt Count 226 04/13/20 10:30: Sodium 138, Potassium 4.2, BUN 21 H, Creatinine 1.04, Glucose 339 H, Magnesium 1.9, Total Bilirubin 0.4, AST 14 L, ALT 20, Alkaline Phosphatase 141 H Assessment and Plan - Problems (Diagnosis) (1) Coronary artery disease Current Visit: Yes Status: Acute (2) H/O heart artery stent Current Visit: Yes Status: Acute (3) Angina at rest Current Visit: Yes Status: Acute (4) Chest pain Current Visit: No Status: Acute (5) Diabetes mellitus Onset Date: 03/15/17 Current Visit: No Status: Chronic (6) Hypertensive disorder, systemic arterial Current Visit: No Status: Chronic (7) Rheumatoid arthritis RA Onset Date: 03/15/17 Current Visit: No Status: Chronic - Plan Place under observation Trend troponin Continue aspirin and Plavix. Metoprolol b.i.d. as her BP will tolerate. NTG p.r.n. for chest Cardiology Consult. Continue antihypertensives. Continue rheumatoid arthritis medications. Insulin sliding scale for glucose management. - Advance Directives Does patient have a Living Will: No Does patient have a Durable POA for Healthcare: No
[2020-04-13] MEDS ORDERED: GLUCAGON 1 MG/VIAL IM PRN (14:48)
[2020-04-13] MEDS ORDERED: NITROGLYCERIN 0.4 MG/TAB SL PRN (14:48)
[2020-04-13] MEDS: METOPROLOL TARTRATE 5 MG/5 ML INJ IV SCH ×3 (14:48→14:58)
[2020-04-13] MEDS ORDERED: D50W 25 GM/50 ML VIAL IV PRN (15:20)
[2020-04-13 15:46] VITALS: BMI 38.7
[2020-04-13] MEDS ORDERED: FUROSEMIDE 20 MG/ 2ML VIAL ONE (15:46)
[2020-04-13] MEDS: INSULIN -REGULAR HUMAN 50 UNIT/0.5 ML ML SQ SCH ×2 (16:22→21:19)
[2020-04-13] MEDS: ENOXAPARIN 40 MG/0.4 ML SQ SCH (16:22)
[2020-04-13] MEDS ORDERED: ATORVASTATIN 40 MG TAB PO SCH (21:00)
[2020-04-14 04:42] LABS: Absolute Lymphocytes (CBC) 1.6 K/uL (0.7-4.9); Basophils % 0.8 % (0-1.3); Hematocrit 33.9 % (36.0-45.0); Lymphocytes % 24.2 % (15.3-44.8); MPV 7.9 fL (7.6-11.3); RBC Red Blood Cell Count 3.94 M/uL (3.86-4.86)
[2020-04-14 04:51] LABS: Potassium 4.1 mmol/L (3.5-5.1)
[2020-04-14 05:35] VITALS: O2SAT 96
[2020-04-14] MEDS: INSULIN -REGULAR HUMAN 50 UNIT/0.5 ML ML SQ SCH ×2 (07:30→11:30)
[2020-04-14 08:23] VITALS: BP 157/67; TEMP 98
[2020-04-14] MEDS ORDERED: ASPIRIN EC 81 MG TAB PO SCH (09:00)
[2020-04-14] MEDS ORDERED: LOSARTAN POTASSIUM 50 MG TABLET PO SCH (09:00)
[2020-04-14] MEDS: ENOXAPARIN 40 MG/0.4 ML SQ SCH (09:00)
[2020-04-14] MEDS ORDERED: CLOPIDOGREL 75 MG TABLET PO SCH (09:00)
[2020-04-14] MEDS ORDERED: REGADENOSON 0.4 MG/5 ML SYR IV ONE (10:59)
--- NOTE | 2020-04-14 12:18 | RAD REPORT ---
EXAM DESCRIPTION: NM - Rest Stress Cardiac Imaging - 04/14/2020 12:11 pm CLINICAL HISTORY: CAD RISK FACTORS Chest pain. COMPARISON: Rest Stress Cardiac Imaging dated 02/26/2020 TECHNIQUE: The patient was administered approximately 10mCi of Tc 99m Sestamibi prior to resting SPE CT imaging of the heart. The patient was then administered approximately 30 mCi of Tc 99m Sestamibi f ollowing exercise or pharmacologic stress. Multiplanar SPECT images were reviewed. FINDINGS: No stress induced ischemic defect is seen to suggest stress induced ischemia. No fixed def ect is seen to suggest hibernating myocardium or scarred myocardium. The end diastolic volume is 82 ml, the end systolic volume is 32 ml, and the ejection fraction is 61 %. IMPRESSION: No stress induced ischemia.
--- NOTE | 2020-04-14 12:58 | EKG ---
Test Date: 2020-04-13 Test Time: 10:13:30 Retail Business Analyst: SUBHASH MEASUREMENT RESULTS: Intervals: Rate: 61 FL: 142 QRSD: 80 QT: 434 QTc: 436 [place]: P: 66 FL: 142 QRS: 37 T: 42 INTERPRETIVE STATEMENTS: Normal sinus rhythm ST abnormality, possible digitalis effect Abnormal ECG Compared to ECG 03/04/2020 17:36:35 ST (T wave) deviation now present Left ventricular hypertrophy no longer present Early repolarization no longer present Electronically Signed On 04-14-20 12:54:02 [employer] by Tarun Edward
--- NOTE | 2020-04-14 13:16 | TREADPHA ---
DX: CHEST PAIN Date of Study: 04/14/2020 Ht: 5' 1 " Wt: 205 lb 0 oz Consulting Physician: CHASTITY MEDICATIONS: ASPIRIN EC, DEXTROSE, LOVENOX, GLUCAGEN, NOVOLIN-R, NITROSTAT HISTORY: HYPERTENSION, HIGH CHOLESTEROL, INSULIN DEPENDENT DIABETES MELLITUS, STENT, MYOCARDIAL INFARCTION AND HEART CATH PHYSICIAL EXAMINATION: RESTING B.P.: 172/66 RESTING H.R.: 63 RESTING EKG: NORMAL SINUS RHYTHM PROTOCOL: PHARMACOLOGIC EXERCISE TIME: 3:30 B.P. AT [place] STRESS: 172/66 IMPRESSION: LEXISCAN STRESS TEST PERFORMED. CARDIOLITE INJECTED PER PROTOCOL. SEE NUCLEAR MEDICINE REPORT. NO SUPRAVENTRICULAR TACHYCARDIA. NO VENTRICULAR TACHYCARDIA. NO ARRHYTHMIAS NOTED. RESPIRATORY EVEN NONLABORED. PATIENT TOLERATED WELL.
--- NOTE | 2020-04-14 13:51 | P.DS ---
Admission Date: 04/13/20 Discharge Date: 04/14/20 Disposition: ROUTINE DISCHARGE Discharge Condition: GOOD Reason for Admission: Chest pain Consultations: Cardiology - Dr. Edward Procedures: Nuclear Stress test - negative Brief History of Present Illness: 60-year-old woman with a history of coronary artery disease, status post stent on 02/27/2020 have had recurrent chest pain since then and has been hospitalized multiple times. Last hospitalization for chest pain was is there 03/30/2020 at [place]. Patient was here on 03/06/2020 4 chest pain episode, had a cardiac catheterization repeated with no PCI. Patient stated she has been experiencing intermittent chest pain which is worsened with exertion. Patient presents again with chest pain of onset this morning when she got to her PCPs office for routine visit. Patient was mailed to the emergency department for evaluation. Her initial troponin in the ED is negative, EKG demonstrated nonspecific ST-T changes. Patient described anterior chest pain radiating to her left jaw and arm. She stated the chest pain improved with nitroglycerin given in the ED. Patient is hospitalized for further evaluation and management. Hospital Course: ACS ruled out - troponin negative x 3, nuclear stress test negative for ischemia. Cardiology consulted, recommended no further evaluation at this time. Chest pain resolved in ED prior to admission. Patient to f/u with Plastic Frame Inserter. Discussed possibility of starting Ranexa to help with chest pain. Patient stated she preferred to hold off on initiation at this time and would like to review with her Plastic Frame Inserter. Vital Signs/Physical Exam: Temp Pulse Resp BP Pulse Ox 98 F 63 18 157/67 H 96 04/14/20 08:00 04/14/20 08:00 04/14/20 08:00 04/14/20 08:00 04/14/20 08:00 General: Alert, In no apparent distress, Oriented x3 HEENT: Sclerae nonicteric Neck: Supple Respiratory: Clear to auscultation bilaterally, Normal air movement Cardiovascular: No edema, Regular rate/rhythm Gastrointestinal: Soft and benign, Non-distended, No tenderness Musculoskeletal: No tenderness Integumentary: No rashes Neurological: Normal speech, Normal affect Laboratory Data at Discharge: WBC 6.50 K/uL (4.3-10.9) 04/14/20 04:20 Hgb 11.5 g/dL (12.0-15.0) L 04/14/20 04:20 Hct 33.9 % (36.0-45.0) L 04/14/20 04:20 Plt Count 199 K/uL (152-406) 04/14/20 04:20 PT 11.2 SECONDS (9.5-12.5) 04/13/20 10:30 INR 0.95 04/13/20 10:30 Sodium 143 mmol/L (136-145) 04/14/20 04:20 Potassium 4.1 mmol/L (3.5-5.1) 04/14/20 04:20 BUN 15 mg/dL (7-18) 04/14/20 04:20 Creatinine 0.90 mg/dL (0.55-1.3) 04/14/20 04:20 Glucose 166 mg/dL (74-106) H 04/14/20 04:20 Magnesium 1.9 mg/dL (1.8-2.4) 04/13/20 10:30 Total Bilirubin 0.4 mg/dL (0.2-1.0) 04/13/20 10:30 AST 14 U/L (15-37) L 04/13/20 10:30 ALT 20 U/L (12-78) 04/13/20 10:30 Alkaline Phosphatase 141 U/L (45-117) H 04/13/20 10:30 Troponin I < 0.02 ng/mL (0.0-0.045) 04/13/20 20:57 Triglycerides 163 mg/dL (<150) H 04/14/20 04:20 Cholesterol 136 mg/dL (<200) 04/14/20 04:20 HDL Cholesterol 51 mg/dL (40-60) 04/14/20 04:20 Cholesterol/HDL Ratio 2.67 04/14/20 04:20 Home Medications: Gabapentin [Neurontin] 600 mg PO BID 02/25/20 Insulin Aspart [Novolog] See Protocol SQ ACHS 02/25/20 Insulin Glargine Human [Lantus*] 26 units SQ BREAKFAST 02/25/20 Losartan Potassium [Cozaar] 25 mg PO DAILY 02/25/20 Tofacitinib Citrate [Xeljanz Xr] 1 tab PO DAILY 02/25/20 Aspirin [Aspirin EC 81 MG] 162 mg PO DAILY #60 tablet.dr 02/28/20 Atorvastatin Calcium [Lipitor] 40 mg PO BEDTIME #30 tab 02/28/20 Clopidogrel Bisulfate [Plavix*] 75 mg PO DAILY #30 tablet 02/28/20 Vitamin D [Drisdol*] 50,000 unit PO Q7D@0900 #10 cap 02/28/20 Methotrexate [Methotrexate*] 3 tab PO Q7D 03/05/20 Cyclosporine [Restasis] 1 drop EACH EYE BID 04/13/20 Guaif/Dm [Robitussin Dm*] 5 ml PO Q6HP PRN 04/13/20 Isosorbide Mononitrate [Isosorbide Mononitrate ER] 1 tab PO DAILY 04/13/20 Metoprolol Tartrate [Lopressor*] 12.5 mg PO DAILY 04/13/20 Nitroglycerin 1 tab SL [id number] 04/13/20 Tramadol HCl [Ultram] 1 tab PO Q6H PRN 04/13/20 Physician Discharge Instructions: You were monitored for your chest pain. Your troponins (cardiac enzymes) were normal. You had a stress test done which was normal as well. You were not having any significant damage done to your heart. Resume your home medications as previously prescribed. Recommend following up with your Plastic Frame Inserter in the next 1-2 weeks. As discussed during your hospitalization, consider / discuss with your deputy grand jury about possibly starting Ranexa. Diet: AHA Activity: Ad anne Followup: Sánchez Queen PA [Primary Care Provider] - Tarun Edward MD [ACTIVE - CAN ADMIT] - Time spent managing pt's care (in minutes): 40
--- NOTE | 2020-04-18 21:09 | CON ---
Date of Consultation: 04/14/2020 Reason For Consultation: Chest pain. History Of Present Illness: Ms. Martinez is 60-year-old. She is very well known to me and Dr. Mcdonald from previous stent of her RCA and repeat catheterization after that. She has diffuse small vessel d isease, especially in the LAD territory, which has been treated medically. She came in with substern al chest pain. No nausea, vomiting, diaphoresis, PND, orthopnea, pedal edema, palpitation, or syncop e. Her pain lasted about 5 minutes. FL has been ruled out. Her BNP was 450, glucose was 339. She was very hypertensive at 185/77. Denied any fever or chills. Allergies: SHE IS ALLERGIC TO IODINE. Past Medical History: Include hypertension, diabetes, CAD, rheumatoid arthritis, and dyslipidemia. Medications: At home should be aspirin, Plavix, Lipitor, methotrexate, Xeljanz, insulin, Neurontin, losartan, Imdur, and metoprolol. Physical Examination: Vital Signs: Stable. Sinus rhythm. Blood pressure 185/77. HEENT: Negative. Neck: Supple without any bruit, lymphadenopathy, JVD, or thyromegaly. Chest: Clear to auscultation and percussion. Cardiac: Regular rhythm and rate. No murmurs, gallops, or rubs. Abdomen: Benign. Extremities: No clubbing, cyanosis, or edema. Diagnostic Data: As stated earlier. EKG was nonspecific. Impression And Plan: 1.Coronary artery disease, severe, status post recent right coronary artery stent with repeat cathet erization a month later showing patent stent. She has a small vessel disease in the distal left ante rior descending artery territory, on medical therapy. She is ruled out for a myocardial infarction. Her EKG did not show any acute changes. I think we need to do a stress test on her and see what isauro t shows, that was already ordered by Dr. Lopez. If that is positive, we will consider recatheterizat ion. Otherwise, continue her present regimen. We can certainly increase the dose of metoprolol and Imdur if we have to. 2.Hypertension, poorly controlled. Increase metoprolol. 3.Diabetes. 4.Rheumatoid arthritis. 5.Dyslipidemia. 6.Neuropathy. We will continue to follow her after the stress test. NB/MODL Voice ID: [id number] Report ID: [id number]
== END 2020-04-14 15:50 | disposition home or self-care (01) ==
LOC: ER 09:53 → ERHOLD 12:54 → 2ND 14:48
PROVIDERS: ADMIT Internal Medicine; ATTEND Hospitalist
DX: R07.9 Chest pain, unspecified (principal); Z95.5 Presence of coronary angioplasty implant and graft; I25.10 Atherosclerotic heart disease of native coronary artery without angina pectoris; R94.31 Abnormal electrocardiogram [ECG] [EKG]; Z20.822 Contact with and (suspected) exposure to COVID-19; I10 Essential (primary) hypertension; M06.9 Rheumatoid arthritis, unspecified; Z96.653 Presence of artificial knee joint, bilateral; E11.40 Type 2 diabetes mellitus with diabetic neuropathy, unspecified; E78.5 Hyperlipidemia, unspecified; Z79.4 Long term (current) use of insulin
CPT/HCPCS: 93005; 93017; 85025 ×2; 80048 ×2; 36415; 83735; 85610; 80061; 82947 ×6; 80076; 84484 ×3; 83880; 71045; 78452; 96360; 96372; 99285; U0003; J1940; J1650; J2785; J7040; A9500; G0378

== ENCOUNTER 2020-04-23 11:11 | Emergency (ER) | payer BC, OTHER ==
[2020-04-23 12:13] LABS: Absolute Lymphocytes (CBC) 1.1 K/uL (0.7-4.9); Basophils % 0.5 % (0-1.3); Hematocrit 37.5 % (36.0-45.0); Lymphocytes % 18.8 % (15.3-44.8); MPV 7.5 fL (7.6-11.3); RBC Red Blood Cell Count 4.41 M/uL (3.86-4.86)
[2020-04-23 12:30] LABS: Albumin 3.3 g/dL (3.4-5.0); Bilirubin Direct 0.2 mg/dL (0-0.2); Bilirubin Total 0.7 mg/dL (0.2-1.0); Potassium 3.8 mmol/L (3.5-5.1); Protein, Total 7.6 g/dL (6.4-8.2)
[2020-04-23] MEDS ORDERED: ONDANSETRON 4 MG/2 ML VIAL ONE (12:41)
[2020-04-23] MEDS ORDERED: NA CHLORIDE 0.9% 1,000 ML ONE (12:41)
--- NOTE | 2020-04-23 13:07 | EDPHYS ---
Physician Documentation [facility] Name: Tamy Martinez Age: 60 yrs Sex: Female : 1960 Arrival Date: 04/23/2020 Time: 11:13 Bed 14 Private MD: Christiano Núñez E ED Physician Telly Parada HPI: 04/23 12:31 This 60 yrs old Female presents to ER via Ambulatory with complaints of kb Nausea/Vomiting/Diarrhea. 12:31 The patient presents to the emergency department with nausea, vomiting, diarrhea. kb Onset: The symptoms/episode began/occurred 3 day(s) ago. Possible causes: unknown. The symptoms are aggravated by nothing. The symptoms are alleviated by nothing. Associated signs and symptoms: Pertinent positives: diarrhea, nausea, vomiting, Pertinent negatives: abdominal pain, fever. Severity of symptoms: At their worst the symptoms were moderate in the emergency department the symptoms are unchanged. The patient has not experienced similar symptoms in the past. The patient has not recently seen a physician. Historical: - Allergies: 11:37 Iodinated Contrast Media - IV Dye; iw - Home Meds: 11:37 aspirin 81 mg oral TbEC once daily [Active]; Lantus 100 unit/mL Sub-Q soln 26 unit iw nightly [Active]; losartan 25 mg oral tab once daily [Active]; Novolog Sub-Q sliding scale [Active]; Plavix 75 mg oral tab once daily [Active]; Xeljanz 11 mg Oral daily [Active]; - PMHx: 11:37 Diabetes - IDDM; Hypertension; Hypertension resolved after lap band; Myocardial iw infarction; Rheumatoid Arthritis; - PSHx: 11:37 lap band and reversal; Heart stents; iw - Immunization history:: Adult Immunizations up to date. - Social history:: Smoking status: Patient denies any tobacco usage or history of. ROS: 12:31 Constitutional: Negative for fever, chills, and weight loss, Cardiovascular: Negative kb for chest pain, palpitations, and edema, Respiratory: Negative for shortness of breath, cough, wheezing, and pleuritic chest pain, Back: Negative for injury and pain, MS/Extremity: Negative for injury and deformity, Skin: Negative for injury, rash, and discoloration, Neuro: Negative for headache, weakness, numbness, tingling, and seizure. 12:31 Abdomen/GI: Positive for nausea, vomiting, and diarrhea, Negative for abdominal pain. Exam: 12:31 Constitutional: This is a well developed, well nourished patient who is awake, alert, kb and in no acute distress. Head/Face: Normocephalic, atraumatic. Chest/axilla: Normal chest wall appearance and motion. Nontender with no deformity. No lesions are appreciated. Cardiovascular: Regular rate and rhythm with a normal S1 and S2. No gallops, murmurs, or rubs. Normal PMI, no JVD. No pulse deficits. Respiratory: Lungs have equal breath sounds bilaterally, clear to auscultation and percussion. No rales, rhonchi or wheezes noted. No increased work of breathing, no retractions or nasal flaring. Abdomen/GI: Soft, non-tender, with normal bowel sounds. No distension or tympany. No guarding or rebound. No evidence of tenderness throughout. Skin: Warm, dry with normal turgor. Normal color with no rashes, no lesions, and no evidence of cellulitis. MS/ Extremity: Pulses equal, no cyanosis. Neurovascular intact. Full, normal range of motion. Neuro: Awake and alert, GCS 15, oriented to person, place, time, and situation. Cranial nerves II-XII grossly intact. Motor strength 5/5 in all extremities. Sensory grossly intact. Cerebellar exam normal. Normal gait. Vital Signs: 11:33 BP 95 / 50; Pulse 72; Resp 18 S; Temp 97.0; Pulse Ox 96% on R/A; Weight 90.72 kg; iw Height 5 ft. 1 in. (154.94 cm); 13:32 BP 112 / 65; Pulse 71; Resp 16 S; Pulse Ox 97% on R/A; jd3 11:33 Body Mass Index 37.79 (90.72 kg, 154.94 cm) iw MDM: 11:41 Patient medically screened. kb 12:30 Data reviewed: vital signs, nurses notes. Data interpreted: Pulse oximetry: on room air kb is 96 %. Interpretation: normal. 12:33 Counseling: I had a detailed discussion with the patient and/or guardian regarding: the kb historical points, exam findings, and any diagnostic results supporting the discharge/admit diagnosis, lab results, the need for outpatient follow up, a family practitioner, to return to the emergency department if symptoms worsen or persist or if there are any questions or concerns that arise at home. 04/23 11:41 Order name: Basic Metabolic Panel; Complete Time: 12:32 kb 04/23 11:41 Order name: CBC with Diff; Complete Time: 12:25 kb 04/23 11:41 Order name: Hepatic Function; Complete Time: 12:32 kb 04/23 11:41 Order name: Lipase; Complete Time: 12:32 kb 04/23 11:41 Order name: IV Saline Lock; Complete Time: 12:05 kb 04/23 11:41 Order name: Labs collected and sent; Complete Time: 12:05 kb Administered Medications: 12:33 Drug: Zofran (Ondansetron) 4 mg Route: IVP; Site: left forearm; jd3 13:34 Follow up: Response: No adverse reaction jd3 12:33 Drug: NS 0.9% 1000 ml Route: IV; Rate: 1000 ml; Site: left forearm; jd3 13:34 Follow up: Response: No adverse reaction; IV Status: Completed infusion; IV Intake: jd3 1000ml Disposition: 16:59 Co-signature as Attending Physician, Telly Parada MD I agree with the assessment and kdr plan of care. Disposition: 04/23/20 13:07 Discharged to Home. Impression: Nausea and vomiting, Diarrhea, unspecified. - Condition is Stable. - Discharge Instructions: Food Choices to Help Relieve Diarrhea, Adult, Nausea and Vomiting, Adult, Dzob-ee-Nifp, Diarrhea, Adult, Crny-un-Rbaf. - Prescriptions for Bentyl 20 mg Oral Tablet - take 1 tablet by ORAL route every 6 hours As needed; 20 tablet. Zofran 4 mg Oral Tablet - take 1 tablet by ORAL route every 6 hours As needed; 20 tablet. - Medication Reconciliation Form, Thank You Letter, Antibiotic Education, Prescription Opioid Use, Work release form form. - Follow up: Private Physician; When: 2 - 3 days; Reason: Recheck today's complaints, Continuance of care, Re-evaluation by your physician. Follow up: Emergency Department; When: As needed; Reason: Worsening of condition. Signatures: Dispatcher [employer] EDChhaya Troy, BRYAN-C BRYAN-Telly Richardson MD MD kdr Williams, Irene, RN RN iw Davies, Chuckie, MAY RN jd3 Corrections: (The following items were deleted from the chart) 13:34 13:07 04/23/2020 13:07 Discharged to Home. Impression: Nausea and vomiting; Diarrhea, jd3 unspecified. Condition is Stable. Forms are Medication Reconciliation Form, Thank You Letter, Antibiotic Education, Prescription Opioid Use. Follow up: Private Physician; When: 2 - 3 days; Reason: Recheck today's complaints, Continuance of care, Re-evaluation by your physician. Follow up: Emergency Department; When: As needed; Reason: Worsening of condition. kb
--- NOTE | 2020-04-23 13:07 | ER ---
Nurse's Notes [facility] Name: Tamy Martinez Age: 60 yrs Sex: Female : 1960 Arrival Date: 04/23/2020 Time: 11:13 Bed 14 Private MD: Christiano Núñez E Diagnosis: Nausea and vomiting;Diarrhea, unspecified Presentation: 04/23 11:33 Chief complaint: Patient states: has had n/v/d since Monday , thought it was food iw poisoning but it hasn't gone away , stomach is sore from puking. Coronavirus screen: diarrhea, nausea, vomiting. Ebola Screen: Patient negative for fever greater than or equal to 101.5 degrees Fahrenheit, and additional compatible Ebola Virus Disease symptoms Patient denies exposure to infectious person. Patient denies travel to an Ebola-affected area in the 21 days before illness onset. No symptoms or risks identified at this time. Initial Sepsis Screen: Does the patient meet any 2 criteria? No. Patient's initial sepsis screen is negative. Does the patient have a suspected source of infection? No. Patient's initial sepsis screen is negative. Risk Assessment: Do you want to hurt yourself or someone else? Patient reports no desire to harm self or others. Onset of symptoms was April 21, 2020. 11:33 Method Of Arrival: Ambulatory iw 11:33 Acuity: HODAN 3 iw Historical: - Allergies: 11:37 Iodinated Contrast Media - IV Dye; iw - Home Meds: 11:37 aspirin 81 mg oral TbEC once daily [Active]; Lantus 100 unit/mL Sub-Q soln 26 unit iw nightly [Active]; losartan 25 mg oral tab once daily [Active]; Novolog Sub-Q sliding scale [Active]; Plavix 75 mg oral tab once daily [Active]; Xeljanz 11 mg Oral daily [Active]; - PMHx: 11:37 Diabetes - IDDM; Hypertension; Hypertension resolved after lap band; Myocardial iw infarction; Rheumatoid Arthritis; - PSHx: 11:37 lap band and reversal; Heart stents; iw - Immunization history:: Adult Immunizations up to date. - Social history:: Smoking status: Patient denies any tobacco usage or history of. Screenin:50 Abuse screen: Denies threats or abuse. Nutritional screening: No deficits noted. jd3 Tuberculosis screening: No symptoms or risk factors identified. Fall Risk Ambulatory Aid- None/Bed Rest/Nurse Assist (0 pts). Gait- Normal/Bed Rest/Wheelchair (0 pts) Mental Status- Oriented to own ability (0 pts). Total Green Fall Scale indicates No Risk (0-24 pts). Assessment: 11:50 General: Appears in no apparent distress. uncomfortable, Behavior is calm, cooperative, jd3 appropriate for age. Pain: Complains of pain in abdomen Quality of pain is described as aching. Neuro: Level of Consciousness is awake, alert, obeys commands, Oriented to person, place, time, situation. Cardiovascular: Denies chest pain, Capillary refill < 3 seconds Patient's skin is warm and dry. Respiratory: Airway is patent Respiratory effort is even, unlabored, Respiratory pattern is regular, symmetrical, Denies cough, shortness of breath. GI: Abdomen is round Reports diarrhea, nausea, vomiting. : No signs and/or symptoms were reported regarding the genitourinary system. EENT: No signs and/or symptoms were reported regarding the EENT system. Derm: Skin is intact, Skin is dry, Skin is normal, Skin temperature is warm. Musculoskeletal: Circulation, motion, and sensation intact. Range of motion: intact in all extremities. 12:50 Reassessment: Patient appears in no apparent distress at this time. Patient and/or jd3 family updated on plan of care and expected duration. Pain level reassessed. Patient is alert, oriented x 3, equal unlabored respirations, skin warm/dry/pink. 13:32 Reassessment: Patient appears in no apparent distress at this time. Patient and/or jd3 family updated on plan of care and expected duration. Pain level reassessed. Patient is alert, oriented x 3, equal unlabored respirations, skin warm/dry/pink. Patient states feeling better. Vital Signs: 11:33 BP 95 / 50; Pulse 72; Resp 18 S; Temp 97.0; Pulse Ox 96% on R/A; Weight 90.72 kg; iw Height 5 ft. 1 in. (154.94 cm); 13:32 BP 112 / 65; Pulse 71; Resp 16 S; Pulse Ox 97% on R/A; jd3 11:33 Body Mass Index 37.79 (90.72 kg, 154.94 cm) iw ED Course: 11:13 Patient arrived in ED. ag5 11:13 Christiano Núñez MD is Private Physician. ag5 11:35 Triage completed. iw 11:37 Arm band placed on. iw 11:41 [facility] Collado [facility]C [facility]. kb 11:41 Telly Parada MD is Attending Physician. kb 11:49 Chuckie Patel RN is Primary Nurse. jd3 12:18 Inserted saline lock: 20 gauge in left forearm, using aseptic technique. Blood jd3 collected. 12:50 Patient has correct armband on for positive identification. Bed in low position. Call jd3 light in reach. Side rails up X 1. Adult w/ patient. Pulse ox on. NIBP on. 13:33 No provider procedures requiring assistance completed. IV discontinued, intact, jd3 bleeding controlled, No redness/swelling at site. Pressure dressing applied. Administered Medications: 12:33 Drug: Zofran (Ondansetron) 4 mg Route: IVP; Site: left forearm; jd3 13:34 Follow up: Response: No adverse reaction jd3 12:33 Drug: NS 0.9% 1000 ml Route: IV; Rate: 1000 ml; Site: left forearm; jd3 13:34 Follow up: Response: No adverse reaction; IV Status: Completed infusion; IV Intake: jd3 1000ml Intake: 13:34 IV: 1000ml; Total: 1000ml. jd3 Outcome: 13:07 Discharge ordered by . kb 13:33 Discharged to home ambulatory, with family. jd3 13:33 Condition: stable 13:33 Discharge instructions given to patient, Instructed on discharge instructions, follow up and referral plans. medication usage, Demonstrated understanding of instructions, follow-up care, medications, Prescriptions given X 2. 13:34 Patient left the ED. jd3 Signatures: Chhaya Collado FNP-C FNP-Miryam Morgan RN RN iw Chuckie Patel RN RN jBernard Somers ag5 Corrections: (The following items were deleted from the chart) 11:37 11:33 Pulse 72bpm; Resp 18bpm; Spontaneous; Pulse Ox 96% RA; Temp 97.0F; 90.72 kg; iw Height 5 ft. 1 in.; BMI: 37.7; iw
[2020-04-23 13:45] VITALS: TEMP 97
[2020-04-23 13:46] VITALS: BP 112/65; O2SAT 97
== END 2020-04-23 13:34 | disposition home or self-care (01) ==
LOC: ER 11:11
DX: R11.2 Nausea with vomiting, unspecified (principal); R19.7 Diarrhea, unspecified; Z91.09 Other allergy status, other than to drugs and biological substances; E11.9 Type 2 diabetes mellitus without complications; I25.2 Old myocardial infarction; M06.9 Rheumatoid arthritis, unspecified
CPT/HCPCS: 96361; 85025; 80048; 36415; 80076; 83690; 96374; 99284; J7030; J2405

== ENCOUNTER 2021-04-12 10:23 | Inpatient (IN) | payer BC, OTHER ==
--- OUTSIDE RECORDS SUMMARY | 2021-04-12 10:27 | XMS REPORT | Continuity of Care Document ---
:1960 Author Organization [facility] t Address [address] [place] [place] [address] Care Team Providers Name Role Phone Pcp Primary Care Physician Unavailable Yoly ANDRADE Attending Clinician Unavailable Mike RYAN, K.H. Attending Clinician Jason TOWNSEND Attending Clinician Unavailable Jason Rodriguez Attending Clinician Reggie Verma MD Attending Clinician Akash ADAMS Attending Clinician Doctor Unassigned, Name Attending Clinician Unavailable Reggie ZELAYA Attending Clinician Unavailable Reggie ZELAYA Admitting Clinician Unavailable Payers Payer Name Policy Type Policy Number Effective Date Expiration Date [employer] [place] [employer] [place] - [id number] 2012 00:00:00 OUT OF STATE [facility] [id number] 2018 00:00:00 PLUS Problems Condition Condition Condition Status Onset Resolution Last Treating Co mments Source Name Details Category Date Date Treatment Clinician Date Colitis Colitis Disease Active 2020-03 [facility] 03-19 ity of 00:00: [place] [address] Medical Branch At risk At risk Disease Active 2020-03 Univers for falls for falls 03-19 ity of 00:00: [place] [address] Medical Branch 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 1-07 ity of with with 00:00: [place] depressive depressive 00 Me dical features features Branch due to due to medical medical condition condition Late Late Disease Active 2020-03 Univers effects of effects of 107 it y of CVA CVA 00:00: [place] (cerebrova (cerebrova 00 Me dical scular scular Branch accident) accident) History of History of Disease Active 2020-03 U nivers stroke stroke 0-29 ity of 00:00: [place] [facility] Generalize Generalize Disease Active U nivers d pain d pain 9-24 ity of 00:00: [place] [facility] Chest pain Chest pain Disease Active 2019-03 U nivers due to CAD due to CAD 2-31 it y of 00:00: [place] [facility] Proliferat Proliferat Disease Active 2018-03 Overview : Univers nevaeh nevaeh 1-11 Formattin ity of diabetic diabetic 00:00: g of this [place] as retinopath retinopath 00 note Me dical y of both y of both might be Br anch eyes with eyes with different macular macular from the edema edema original. 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 mellitus request for surgery [id number] Gastric Gastric Disease Active Univers band band 8-07 ity of slippage slippage 00:00: Medical Branch NSVT NSVT Disease Active Univers (nonsustai (nonsustai 3-09 it y of adán adán 00:00: [place] ventricula ventricula 00 Me dical r r Branch tachycardi tachycardi a) a) Total knee Total knee Disease Active U nivers replacemen replacemen 3-05 it y of t status t status 00:00: [place] [facility] Diabetes Diabetes Disease [facility]: [place] [address] Center Colon Colon Disease Active 2016-03 Univers cancer cancer 1-16 it[place] of screening screening 00:[place] [facility] [place] Labial Labial Disease Active 2016-03 [facility] lesion lesion 1-16 ity of 00:00: [place] [facility] Long-term Long-term Disease Active Uni vers use of use of 5-11 ity of Plaquenil Plaquenil 00:00: [place] [facility] [place] 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 5-11 ity of edema of edema of 00:00: [place] both eyes both eyes 00 Medi bharat Branch Senile Senile Disease Active Univers nuclear nuclear 5-11 ity of sclerosis, sclerosis, 00:00: [place] bilateral bilateral 00 Medi bharat Branch Dry eyes, Dry eyes, Disease Active Uni vers bilateral bilateral 5-11 ity of 00:00: [place] 00 Medical Branch IDDM IDDM Disease Active Univers (insulin (insulin 06-11 [place] of dependent dependent 00:00[place] diabetes diabetes 00 Medica l mellitus) mellitus) Bran ch Generalize Generalize Disease Active Overview : Univers d d 11-07 Formattin ity of osteoarthr osteoarthr 00:00: g of this [place] osis of osis of 00 note Medical hand hand might be Branch different from the original. ICD10 Diagnosis Term Clinical Resource Manager Utility Diabetic Diabetic Disease Active Unive rs peripheral peripheral 11-06 it y of neuropathy neuropathy 00:00: [place] 00 [place] Diabetes Diabetes Disease Active 2011-03 Overview: Un alex mellitus mellitus -02 Formattin ity of type 2, type 2, 00:00: g of this [place] uncontroll uncontroll 00 note Me dical ed, ed, might be Branch without without different complicati complicati from the ons ons original. ICD10 Diagnosis Term Clinical Resource Manager Utility Obesity Obesity Disease Active 2011-03 Overview: Univ ers 03-14 Formattin ity of 00:00: g of this 00 note Medical might be Branch different from the original. ICD10 Diagnosis Term Clinical Resource Manager Utility HLD HLD Disease Active 2011-03 Overview: Univer s (hyperlipi (hyperlipi 03-14 Formattin ity of demia) demia) 00:00: g of this 00 note Medical might be Branch different from the original. ICD10 Diagnosis Term Clinical Resource Manager Utility Elevated Elevated Disease Active 2011-03 Unive rs BP BP 1- ity of 00:00: [place] 00 Medical Branch Mild Mild Disease Active 2011-03 Univers vitamin D vitamin D 03-14 it[place] of deficiency deficiency 00:[place]: [place] Raynaud's Raynaud's Disease Active Uni vers syndrome syndrome 5-18 ity of 00:00: [place] 00 Medical Branch Rheumatoid Rheumatoid Disease Active Overview : Univers arthritis arthritis -18 Formattin i ty of 00:00: g of this note Medical might be Branch different from the original. ICD10 Diagnosis Term Clinical Resource Manager Utility Chronic Chronic Disease Active Univers pain pain -18 ity of syndrome syndrome 00:00: Medical Branch Allergies, Adverse Reactions, Alerts Allergy Allergy Status Severity Reaction(s) Onset Inactive Treating Comm ents Source Name Type Date Date Clinician SHELLFIS DRUG Active Anaphylaxis Uni vers H INGREDI 03-26 ity of DERIVED 00:00: Medical Branch Shellfis Propensi Active Anaphylaxis U nivers h ty to 03-26 ity of Derived adverse 00:00: [place] reaction 00 Medical s Branch Iodinate Propensi Active Hives [facility]-13 [facility] Contrast adverse 00:00: Medical Media reaction 00 Center s Iodine Propensi Active Rash Other [facility] to 11 reaction( [facility] - Iodide adverse 00:00: s): Medical Containi reaction 00 Itching Cente r ng s and Products swelling IODINE Drug Active Rash Univers AND Class 5-11 ity of IODIDE 00:00: [place] CONTAINI 00 Medical NG Branch PRODUCTS Family History Family Member Diagnosis Comments Start Date Stop Date Source Natural father Heart disease [facility] Social History Social Habit Start Date Stop Date Quantity Comments Source Exposure to Not sure University of SARS-CoV-2 [place] Medical (event) Branch History SDOH [facility] - Alcohol Comment Medical C enter History SDMT [facility] - Alcohol Std Medical Cente r Drinks History [facility] - Alcohol Binge Medical [facility] Tobacco use and 2018-10-15 2018-10-[address] [facility] - exposure 00:00:00 00:00:00 [facility] Alcohol intake 2018-10-15 2018-10-[address] [facility] - 00:00:00 00:00:00 non-drinker of Medical Ce nter alcohol (finding) History SDOH 2018-10-15 2018-10-[address] [facility] - Alcohol Frequency 00:00:00 00:00:00 [facility] Sex Assigned At [address] [facility] - 00:00:00 00:00:00 [facility] Center Smoking Status Start Date Stop Date Source Never smoker [facility] Medications Ordered Filled Start Stop Current Ordering Indication Dosage Frequency Signature Comments Components Source Medication Medication Date Date Medication? Clinician (SIG) Name Name klarissa Yes 40mg Take 1 Univ ers n 40 mg 1-20 tablet by ity of tablet 00:00: mouth at [place] 00 bedtime. Medical Branch atorvastati Yes 40mg Take 1 Univ ers n 40 mg 1-20 tablet by ity of tablet 00:00: mouth at [place] 00 bedtime. Medical Branch gabapentin 2021- Yes [id number] 600mg Take 1 Univers 600 mg 1-07 tablet by ity of tablet 00:00: mouth 2 (two) Medical times Branch daily. gabapentin 2021- Yes [id number] 600mg Take 1 Univers 600 mg 1-07 tablet by ity of tablet 00:00: mouth 2 (two) Medical times Branch daily. gabapentin 2021-0 Yes [id number] 600mg Take 1 Univers 600 mg 1-07 tablet by ity of tablet 00:00: mouth 2 (two) Medical times Branch daily. gabapentin 2021-0 Yes [id number] 600mg Take 1 Univers 600 mg 1-07 tablet by ity of tablet 00:00: mouth 2 00 (two) Medical times Branch daily. gabapentin Yes [id number] 600mg Take 1 Univers 600 mg 1-07 tablet by ity of tablet 00:00: mouth 2 00 (two) Medical times Branch daily. ISOSORBIDE 2020-03 Yes [id number] 30mg TAKE 1 U nivers MONONITRATE 2-10 TABLET BY ity of 30 mg 24 hr 00:00: MOUTH [place] tablet 00 DAILY Medical Branch ISOSORBIDE 2020- Yes [id number] 30mg TAKE 1 U nivers MONONITRATE 2-10 TABLET BY ity of 30 mg 24 hr 00:00: MOUTH [place] tablet 00 DAILY Medical Branch ISOSORBIDE 2020- Yes [id number] 30mg TAKE 1 U nivers MONONITRATE 2-10 TABLET BY ity of 30 mg 24 hr 00:00: MOUTH [place] tablet 00 DAILY Medical Branch ISOSORBIDE 2020- Yes [id number] 30mg TAKE 1 U nivers MONONITRATE 2-10 TABLET BY ity of 30 mg 24 hr 00:00: MOUTH [place] tablet 00 DAILY Medical Branch ISOSORBIDE 2020-03 Yes [id number] 30mg TAKE 1 U nivers MONONITRATE 2-10 TABLET BY ity of 30 mg 24 hr 00:00: MOUTH [place] tablet 00 DAILY Medical Branch insulin 2020-03 Yes [id number] INJECT 10 U nivers aspart 2-09 UNITS ity of U-100 00:00: [facility] (NOVOLOG 00 US BEFORE Medica l FLEXPEN EACH MEAL Branch U-100 AND INSULIN) SLIDING 100 unit/mL SCALE. MAX (3 mL) DAILY DOSE injection OF 40 UNITS insulin 2020-03 Yes [id number] INJECT 10 U nivers aspart 2-09 UNITS ity of U-100 00:00: [facility] (NOVOLOG 00 US BEFORE Medica l FLEXPEN EACH MEAL Branch U-100 AND INSULIN) SLIDING 100 unit/mL SCALE. MAX (3 mL) DAILY DOSE injection OF 40 UNITS insulin 2020-03 Yes [id number] INJECT 10 U nivers aspart 2-09 UNITS ity of U-100 00:00: [facility] (NOVOLOG 00 US BEFORE Medica l FLEXPEN EACH MEAL Branch U-100 AND INSULIN) SLIDING 100 unit/mL SCALE. MAX (3 mL) DAILY DOSE injection OF 40 UNITS insulin 2020-03 Yes [id number] INJECT 10 U nivers aspart 2-09 UNITS ity of U-100 00:00: [facility] (NOVOLOG 00 US BEFORE Medica l FLEXPEN EACH MEAL Branch U-100 AND INSULIN) SLIDING 100 unit/mL SCALE. MAX (3 mL) DAILY DOSE injection OF 40 UNITS insulin 2020-03 Yes [id number] INJECT 10 U nivers aspart 2-09 UNITS ity of U-100 00:00: [facility] (NOVOLOG 00 US BEFORE Medica l FLEXPEN EACH MEAL Branch U-100 AND INSULIN) SLIDING 100 unit/mL SCALE. MAX (3 mL) DAILY DOSE injection OF 40 UNITS metoprolol 2020-03 Yes 12.5mg Take 0.5 U nivers tartrate 25 2-03 tablets by it y of mg tablet 00:00: mouth 2 [place] 00 (two) Medical times Branch daily. metoprolol 2020-03 Yes 12.5mg Take 0.5 U nivers tartrate 25 2-03 tablets by it y of mg tablet 00:00: mouth 2 (two) Medical times Branch daily. metoprolol 2020-03 Yes 12.5mg Take 0.5 U nivers tartrate 25 2-03 tablets by it y of mg tablet 00:00: mouth 2 (two) Medical times Branch daily. metoprolol 2020-03 Yes 12.5mg Take 0.5 U nivers tartrate 25 2-03 tablets by it y of mg tablet 00:00: mouth 2 (two) Medical times Branch daily. metoprolol 2020-03 Yes 12.5mg Take 0.5 U nivers tartrate 25 2-03 tablets by it y of mg tablet 00:00: mouth 2 (two) Medical times Branch daily. Dextran 2020-03 Yes 1[drp] Place 1 Unive rs 70-Hypromel 0-29 Drop in ity o f lose 13:25: both eyes [place] (ARTIFICIAL 33 as needed. Me dical TEARS) [facility] methotrexat 2020-03 Yes 20mg Take 20 mg Univers e 5 mg 0-29 by mouth ity of tablet 13:25: weekly. [address] Dextran 2020-03 Yes 1[drp] Place 1 Unive rs 70-Hypromel 0-29 Drop in ity o f lose 13:25: both eyes [place] (ARTIFICIAL 33 as needed. Me dical TEARS) [facility] methotrexat 2020-03 Yes 20mg Take 20 mg Univers e 5 mg 0-29 by mouth ity of tablet 13:25: weekly. [address] Dextran 2020-03 Yes 1[drp] Place 1 Unive rs 70-Hypromel 0-29 Drop in ity o f lose 13:25: both eyes [place] (ARTIFICIAL 33 as needed. Me dical TEARS) [facility] Yes 20mg Take 20 mg Univers e 5 mg 0-29 by mouth ity of tablet 13:25: weekly. [address] Dextran 2020-03 Yes 1[drp] Place 1 Unive rs 70-Hypromel 0-29 Drop in ity o f lose 13:25: both eyes [place] (ARTIFICIAL 33 as needed. Me dical TEARS) [facility] methotrexat 2020-03 Yes 20mg Take 20 mg Univers e 5 mg 0-29 by mouth ity of tablet 13:25: weekly. [place] 33 Medical Branch Dextran 2020-03 Yes 1[drp] Place 1 Unive rs 70-Hypromel 0-29 Drop in ity o f lose 13:25: both eyes [place] (ARTIFICIAL 33 as needed. Me dical TEARS) Dpet Branch methotrexat 2020-03 Yes 20mg Take 20 mg Univers e 5 mg 0-29 by mouth ity of tablet 13:25: weekly. [place] 33 Medical Branch foLIC acid 2020-03 Yes 1mg Take 1 mg Un alex 1 mg tablet 0-29 by mouth ity of 13:15: daily. [place] 17 except on Medical date of Branch methotrexa te foLIC acid 2020-03 Yes 1mg Take 1 mg Un alex 1 mg tablet 0-29 by mouth ity of 13:15: daily. [place] 17 except on Medical date of Branch methotrexa te foLIC acid 2020-03 Yes 1mg Take 1 mg Un alex 1 mg tablet 0-29 by mouth ity of 13:15: daily. [place] 17 except on Medical date of Branch methotrexa te foLIC acid 2020-03 Yes 1mg Take 1 mg Un alex 1 mg tablet 0-29 by mouth ity of 13:15: daily. [place] 17 except on Medical date of Branch methotrexa te foLIC acid 2020-03 Yes 1mg Take 1 mg Un alex 1 mg tablet 0-29 by mouth ity of 13:15: daily. [place] 17 except on Medical date of Branch methotrexa te DULoxetine 2020-03 Yes [id number] 20mg Take 1 U nivers 20 mg 0-29 capsule by ity of capsule 00:00: mouth [place] 00 every Medical morning. Branch DULoxetine 2020-03 Yes [id number] 20mg Take 1 U nivers 20 mg 0-29 capsule by ity of capsule 00:00: mouth [place] 00 every Medical morning. Branch DULoxetine 2020-03 Yes [id number] 20mg Take 1 U nivers 20 mg 0-29 capsule by ity of capsule 00:00: mouth [place] 00 every Medical morning. Branch DULoxetine 2020-03 Yes [id number] 20mg Take 1 U nivers 20 mg 0-29 capsule by ity of capsule 00:00: mouth [place] 00 every Medical morning. Branch DULoxetine 2020-03 Yes [id number] 20mg Take 1 U nivers 20 mg 0-29 capsule by ity of capsule 00:00: mouth [place] 00 every Medical morning. Branch empaglifloz 2020-03 Yes [id number] 1{tbl} Take 1 Univers in-metformi 0-11 tablet by ity of n (SYNJARDY 00:00: mouth [place] XR) 00 daily. Medical 25-1,000 mg Branch TBph Insulin 2020-03 Yes [id number] Use as Univ ers [place], 0-11 directed 4 ity o f Disposable, 00:00: times [place] (PEN 00 daily. Medical NEEDLES) 31 E11.65 Branch gauge x 1/4" Ndle empaglifloz 2020-03 Yes [id number] 1{tbl} Take 1 Univers in-metformi 0-11 tablet by ity of n (SYNJARDY 00:00: mouth [place] XR) 00 daily. Medical 25-1,000 mg Branch TBph Insulin 2020-03 Yes [id number] Use as Univ ers [place], 0-11 directed 4 ity o f Disposable, 00:00: times [place] (PEN 00 daily. Medical NEEDLES) 31 E11.65 Branch gauge x 1/4" Ndle empaglifloz 2020-03 Yes [id number] 1{tbl} Take 1 Univers in-metformi 0-11 tablet by ity of n (SYNJARDY 00:00: mouth [place] XR) 00 daily. Medical 25-1,000 mg Branch TBph Insulin 2020-03 Yes [id number] Use as Univ ers [place], 0-11 directed 4 ity o f Disposable, 00:00: times [place] (PEN 00 daily. Medical NEEDLES) 31 E11.65 Branch gauge x 1/4" Ndle empaglifloz 2020-03 Yes [id number] 1{tbl} Take 1 Univers in-metformi 0-11 tablet by ity of n (SYNJARDY 00:00: mouth [place] XR) 00 daily. Medical 25-1,000 mg Branch TBph Insulin 2020-03 Yes [id number] Use as Univ ers [place], 0-11 directed 4 ity o f Disposable, 00:00: times [place] (PEN 00 daily. Medical NEEDLES) 31 E11.65 Branch gauge x 1/4" Ndle empaglifloz 2020-03 Yes [id number] 1{tbl} Take 1 Univers in-metformi 0-11 tablet by ity of n (SYNJARDY 00:00: mouth [place] XR) 00 daily. Medical 25-1,000 mg Branch TBph Insulin 2020-03 Yes [id number] Use as Univ ers [place], 0-11 directed 4 ity o f Disposable, 00:00: times [place] (PEN 00 daily. Medical NEEDLES) 31 E11.65 Branch gauge x 1/4" Ndle HYDROcodone 2020-03 Yes TAKE 1 Univ ers -acetaminop 0-06 TABLET BY ity of hen 5-325 00:00: MOUTH [place] mg tablet 00 EVERY 6 Medical HOURS Branch NEEDED HYDROcodone 2020-03 Yes TAKE 1 Univ ers -acetaminop 0-06 TABLET BY ity of hen 5-325 00:00: MOUTH [place] mg tablet 00 EVERY 6 Medical HOURS Branch NEEDED HYDROcodone 2020-03 Yes TAKE 1 Univ ers -acetaminop 0-06 TABLET BY ity of hen 5-325 00:00: MOUTH [place] mg tablet 00 EVERY 6 Medical HOURS Branch NEEDED HYDROcodone 2020-03 Yes TAKE 1 Univ ers -acetaminop 0-06 TABLET BY ity of hen 5-325 00:00: MOUTH [place] mg tablet 00 EVERY 6 Medical HOURS Branch NEEDED HYDROcodone 2020-03 Yes TAKE 1 Univ ers -acetaminop 0-06 TABLET BY ity of hen 5-325 00:00: MOUTH [place] mg tablet 00 EVERY 6 Medical HOURS Branch NEEDED losartan 50 2020-0 Yes 50mg Take 50 mg Univers mg tablet 9- by mouth 2 ity of 17:16: (two) [place] 24 times Medical daily. Branch losartan 50 2020-0 Yes 50mg Take 50 mg Univers mg tablet 9-26 by mouth 2 ity of 17:16: (two) [place] 24 times Medical daily. Branch losartan 50 2020-0 Yes 50mg Take 50 mg Univers mg tablet 9- by mouth 2 ity of 17:16: (two) [place] 24 times Medical daily. Branch losartan 50 2020-0 Yes 50mg Take 50 mg Univers mg tablet 9-26 by mouth 2 ity of 17:16: (two) [place] 24 times Medical daily. Branch losartan 50 2020-0 Yes 50mg Take 50 mg Univers mg tablet 9- by mouth 2 ity of 17:16: (two) [place] 24 times Medical daily. 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) Misc Blood-Gluco 202-0 Yes [id number] Use as Univers se Sensor 8-04 directed ity of (DEXCOM G6 00:00: [place] SENSOR) 00 Medical Yolanda Branch Blood-Gluco 202-0 Yes [id number] Use as Univers se 8-04 directed ity of Transmitter 00:00: [place] (DEXCOM G6 00 Medical TRANSMITTER Branch ) Yolanda Blood-Gluco 202-0 Yes [id number] Use as Univers se 8-04 directed ity of Meter,Josué 00:00: [place] nuous 00 Medical (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) Misc Blood-Gluco 202-0 Yes [id number] Use as Univers se Sensor 8-04 directed ity of (DEXCOM G6 00:00: [place] SENSOR) 00 Medical Yolanda Branch Blood-Gluco 202-0 Yes [id number] Use as Univers se 8-04 directed ity of Transmitter 00:00: [place] (DEXCOM G6 00 Medical TRANSMITTER Branch ) Yolanda Blood-Gluco 202-0 Yes [id number] Use as Univers se 8-04 directed ity of Meter,Josué 00:00: [place] nuous 00 Medical (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) Misc Blood-Gluco 202-0 Yes [id number] Use as Univers se Sensor 8-04 directed ity of (DEXCOM G6 00:00: [place] SENSOR) 00 Medical Yolanda Branch Blood-Gluco 202-0 Yes [id number] Use as Univers se 8-04 directed ity of Transmitter 00:00: [place] (DEXCOM G6 00 Medical TRANSMITTER Branch ) Yolanda Blood-Gluco 202-0 Yes [id number] Use as Univers se 8-04 directed ity of Meter,Josué 00:00: [place] nuous 00 Medical (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 Medical Branch atorvastati Yes 40mg Take 1 Univ ers n 40 mg 7-05 tablet by ity of tablet 00:00: mouth at [place] 00 bedtime. Medical Branch atorvastati Yes 40mg Take 1 Univ ers n 40 mg 7-05 tablet by ity of tablet 00:00: mouth at [place] 00 bedtime. Medical Branch atorvastati 2022- No 40mg Take 1 Uni vers n 40 mg 7-05 01-14 tablet by ity of tablet 00:00: 00:00 mouth at [place] 00 :00 bedtime. Medical Branch insulin Yes [id number] 26U inject 26 U nivers degludec 6-21 Units ity of (TRESIBA 00:00: under the Collective IPa s FLEXTOUCH 00 skin Medical U-100) 100 daily. Max Bra nch unit/mL (3 daily dose mL) InPn of 40 units insulin Yes [id number] 26U inject 26 U nivers degludec 6-21 Units ity of (TRESIBA 00:00: [place] FLEXTOUCH 00 skin Medical U-100) 100 daily. Max Bra nch unit/mL (3 daily dose mL) InPn of 40 units insulin Yes [id number] 26U inject 26 U nivers degludec 6-21 Units ity of (TRESIBA 00:00: [place] FLEXTOUCH 00 skin Medical U-100) 100 daily. Max Bra nch unit/mL (3 daily dose mL) InPn of 40 units insulin 0 Yes [id number] 26U inject 26 U nivers degludec 6-21 Units ity of (TRESIBA 00:00: [place] the [place] FLEXTOUCH 00 skin Medical U-100) 100 daily. Max Bra nch unit/mL (3 daily dose mL) InPn of 40 units insulin 0 Yes [id number] 26U inject 26 U nivers degludec 6-21 Units ity of (TRESIBA 00:00: [place] the [place] FLEXTOUCH 00 skin Medical U-100) 100 daily. Max Bra nch unit/mL (3 daily dose mL) InPn of 40 units nitroglycer Yes [id number] .4mg Place 1 Univers in 0.4 mg 1-01 tablet ity of sublingual 00:00: under the [place] tablet 00 tongue Medical every 5 Branch (five) minutes as needed for Chest pain. clopidogreL Yes [id number] 75mg Take 1 Univers (PLAVIX) 75 1-01 tablet by ity of mg tablet 00:00: mouth [place] 00 daily. Medical Branch aspirin 81 0 Yes [id number] 81mg Take 1 Univers mg chewable 1-01 tablet by ity of tablet 00:00: mouth [place] 00 daily. Medical Branch nitroglycer Yes [id number] .4mg Place 1 Univers in 0.4 mg 1-01 tablet ity of sublingual 00:00: under the [place] tablet 00 tongue Medical every 5 Branch (five) minutes as needed for Chest pain. clopidogreL Yes [id number] 75mg Take 1 Univers (PLAVIX) 75 1-01 tablet by ity of mg tablet 00:00: mouth [place] 00 daily. Medical Branch aspirin 81 0 Yes [id number] 81mg Take 1 Univers mg chewable 1-01 tablet by ity of tablet 00:00: mouth [place] 00 daily. Medical Branch nitroglycer Yes [id number] .4mg Place 1 Univers in 0.4 mg 1-01 tablet ity of sublingual 00:00: under the [place] tablet 00 tongue Medical every 5 Branch (five) minutes as needed for Chest pain. clopidogreL Yes [id number] 75mg Take 1 Univers (PLAVIX) 75 1-01 tablet by ity of mg tablet 00:00: mouth [place] 00 daily. Medical Branch aspirin 81 2020-0 Yes [id number] 81mg Take 1 Univers mg chewable 1-01 tablet by ity of tablet 00:00: mouth [place] 00 daily. Medical Branch nitroglycer 2020-[id number] 1 Univers in 0.4 mg 1-01 tablet ity of sublingual 00:00: under the [place] tablet 00 tongue Medical every 5 Branch (five) minutes as needed for Chest pain. clopidogreL 0 Yes [id number] 75mg Take 1 Univers (PLAVIX) 75 1-01 tablet by ity of mg tablet 00:00: mouth [place] 00 daily. Medical Branch aspirin 81 0 Yes [id number] 81mg Take 1 Univers mg chewable 1-01 tablet by ity of tablet 00:00: mouth [place] 00 daily. Medical Branch nitroglycer [id number] 1 Univers in 0.4 mg 1-01 tablet ity of sublingual 00:00: under the [place] tablet 00 tongue Medical every 5 Branch (five) minutes as needed for Chest pain. clopidogreL 0 Yes [id number] 75mg Take 1 Univers (PLAVIX) 75 1-01 tablet by ity of mg tablet 00:00: mouth [place] 00 daily. Medical Branch aspirin 81 0 Yes [id number] 81mg Take 1 Univers mg chewable 1-01 tablet by ity of tablet 00:00: mouth [place] 00 daily. Medical Branch tofacitinib 2018-03 Yes [id number] 11mg Take 11 mg Univers (XELJANZ 2-18 by mouth ity of XR) 11 mg 00:00: daily. [place] [address] Medical Branch tofacitinib 2018-03 Yes [id number] 11mg Take 11 mg Univers (XELJANZ 2-18 by mouth ity of XR) 11 mg 00:00: daily. [place] [address] Medical Branch tofacitinib 2018-03 Yes [id number] 11mg Take 11 mg Univers (XELJANZ 2-18 by mouth ity of XR) 11 mg 00:00: daily. [place] [address] Medical Branch tofacitinib 2018-03 Yes [id number] 11mg Take 11 mg Univers (XELJANZ 2-18 by mouth ity of XR) 11 mg 00:00: daily. [address] tofacitinib 2019- Yes [id number] 11mg Take 11 mg Univers (XELJANZ 2-18 by mouth ity of XR) 11 mg 00:00: daily. [address] insulin 2019-0 Yes 12U QD Inject 12 [facility] glargine 8-08 [facility] - (LANTUS) 00:04: subcutaneo Med ical 100 unit/mL 52 usly Center injection nightly Use as directed . insulin 2018- Yes Inject [facility] aspart 8-08 subcutaneo [facility] - U-100 00:04: usly 3 Medical (NOVOLOG) 52 (three) Center 100 unit/mL times injection daily before meals. Immunizations Ordered Filled Immunization Date Status Comments [facility] e Immunization Name Name Influenza Virus 2021-01-08 Completed Universit y of Vaccine Quad IM, 00:00:00 [facility] dical Preserv and ABX Branch Free 6 MO-64 YRS Influenza Virus 2021-01-08 Completed Universit y of Vaccine Quad IM, 00:00:00 [facility] dical Preserv and ABX Branch Free 6 MO-64 YRS Influenza Virus 2021-01-08 Completed Universit y of Vaccine Quad IM, 00:00:00 [facility] dical Preserv and ABX Branch Free 6 MO-64 YRS Influenza Virus 2021-01-08 Completed Universit y of Vaccine Quad IM, 00:00:00 [facility] dical Preserv and ABX Branch Free 6 MO-64 YRS Influenza Virus 2021-01-08 Completed Universit y of Vaccine Quad IM, 00:00:00 [facility] dical Preserv and ABX Branch Free 6 MO-64 YRS Influenza Virus 2019-11-12 Completed Universit y of Vaccine 00:00:00 [facility] Influenza Virus 2019-11-12 Completed Universit y of Vaccine 00:00:00 [facility] Influenza Virus 2019-11-12 Completed Universit y of Vaccine 00:00:00 [facility] Influenza Virus 2019-11-12 Completed Universit y of Vaccine 00:00:00 [facility] Influenza Virus 2019-11-12 Completed Universit y of Vaccine 00:00:00 [facility] Zoster Vaccine 2019-03-25 Completed University of Recombinant 00:00:00 [facility] Zoster Vaccine 2019-03-25 Completed University of Recombinant 00:00:00 [facility] Zoster Vaccine 2019-03-25 Completed University of Recombinant 00:00:00 [facility] Zoster Vaccine 2019-03-25 Completed University of Recombinant 00:00:00 [facility] Zoster Vaccine 2019-03-25 Completed University of Recombinant 00:00:00 [facility] Zoster Vaccine 2019-01-18 Completed University of Recombinant 00:00:00 [facility] Zoster Vaccine 2019-01-18 Completed University of Recombinant 00:00:00 [facility] Zoster Vaccine 2019-01-18 Completed University of Recombinant 00:00:00 [facility] Zoster Vaccine 2019-01-18 Completed University of Recombinant 00:00:00 [facility] Zoster Vaccine 2019-01-18 Completed University of Recombinant 00:00:00 [facility] Vital Signs Vital Name Observation Time Observation Value Comments Source Systolic blood 2021-03-23 16:13:00 139 mm[Hg] Univer sity [facility] Diastolic blood 2021-03-23 16:13:00 70 mm[Hg[facility] 2021-03-23 16:13:00 62 /min [facility] Body height 2021-03-23 16:13:00 152.4 cm [facility] Body weight 2021-03-23 16:13:00 98.431 kg [facility] BMI 2021-03-23 16:13:00 42.38 kg/m2 [facility] Procedures Procedure Date / Time Performed Performing Clinician Sourc e XR HIPS 2 VW RIGHT 2021-03-23 16:35:00 Any [facility] Plan of Care Planned Activity Planned Date Details Comments Source Future Scheduled 2020-11-11 INFLUENZA VACCINE (#1) [facility] 00:00:00 [code = INFLUENZA Medical Ce nter VACCINE (#1)] Future Scheduled 2020-03-[address] [facility] - Test 00:00:00 (12+) [code = Medical Center DEPRESSION SCREENING (12+)] Future Scheduled 2019-01-[address] [facility] - Test 00:00:00 [facility] (procedure) [code = 39744059] Future Scheduled 2012 SHINGLES VACCINES ([address] [facility] - Test 00:00:00 of 2) [code = SHINGLES Medic al Center VACCINES (1 of 2)] Future Scheduled [address] [facility] - Test 00:00:00 (procedure) [code = Medical Center 77886399] Future Scheduled [address] [facility] - Test 00:00:00 [facility] cervix (procedure) [code = 244108559] Future Scheduled 1981 DTAP/TDAP/TD VACCINES [facility] Test 00:00:00 (1 - Tdap) [code = Medical C enter DTAP/TDAP/TD VACCINES (1 - Tdap)] Future Scheduled 1980 HEPATITIS C SCREENING [facility] Test 00:00:00 [code = HEPATITIS C Medical Center SCREENING] Future Scheduled 1974 COVID-19 VACCINE (1) [facility] - Test 00:00:00 [code = COVID-[address] VACCINE (1)] Future Scheduled 1972 DIABETIC EYE EXAM [facility] - Test 00:00:00 [code = DIABETIC EYE Medical Center EXAM] Future Scheduled [address] [facility] - Test 00:00:00 examination Medical Center (regime/therapy) [code = 602703653] Future Scheduled 1972 Urine screening for [facility] - Test 00:00:00 protein (procedure) Medical Center [code = 644136317] Future Scheduled [address] [facility] - Test 00:00:00 0-64 YRS (1 of 2 - Medical C enter PPSV23) [code = PNEUMOCOCCAL VACCINE 0-64 YRS (1 of 2 - PPSV23)] Future Scheduled [address] [facility] - Test 00:00:00 [facility] breast (procedure) [code = 211107868] Future Scheduled [address] [facility] - Test 00:00:00 [facility] colon (procedure) [code = 023214575] Encounters Start End Encounter Admission Attending Care Care Encounter Source Date/Time Date/Time Type Type Clinicians Facility Department ID 2021-04-14 2021-04-14 Outpatient Cristo ANDRADE [facility] [id number] Univers 10:30:00 10:30:00 VIVIAN [id number] [facility] 2021-04-14 2021-04-14 Outpatient R RAYMOND [facility] [id number] Univers 10:30:00 10:30:00 VIVIAN [facility] 2021-03-30 2021-03-30 [facility] [id number] Univers 00:00:00 00:00:00 Rachel PADRON [id number] ity [place] [phone] Ca dicla NAL 059 [facility] 2021-03-26 2021-03-26 [facility] [id number] Univers 00:00:00 00:00:00 Rachel PADRON [id number] [place] [id number] Ca dicla NAL 059 [facility] 2021-03-23 2021-03-23 Outpatient R KRISTIAN [facility] [id number] Univers 10:22:10 23:59:00 ANY [facility] 2021-03-23 2021-03-23 [facility] [id number] Univers 10:22:10 23:59:00 Encounter Any S HEALTH [id number] ity of [place] 4.2.7.2.686 Vickey as JONATHON?BLEA [phone] Ca dicpolina QUINTERO 809 [facility] OFFICE [facility] 2021-03-23 2021-03-23 Office [facility] [id number] Univers 10:30:00 10:45:00 Visit Any S HEALTH [id number] it y of [place] 4.2.7.2.686 Vickey as JONATHON?BLEA [phone] Ca dicla DONALD 198 [facility] OFFICE [facility] 2021-03-23 2021-03-23 [facility]phone [facility] [id number] Univers 00:00:00 00:00:00 Wondiful A Kannuu 350.1.13.10 ity of [place] 4.2.7.2.686 Vickey as JONATHON?BLEA [phone] Ca dayanara QUINTEOR [address] [place] [address] MEDICAL OFFICE [facility] 2020-03-26 2020-03-26 Emergency [facility] [id number] 11:51:00 18:13:00 Yani Padron 350.1.13.10 [place] 4.2.7.2.686 [place] [id number] 2020-03-26 2020-03-26 Telephone [facility] [id number] 00:00:00 00:00:00 Sherrihilary Padron 350.1.13.10 [place] 4.2.7.2.686 [facility] [id number] [address] 2020-03-16 2020-03-16 Office [facility] [id number] 08:45:41 09:51:05 Visit Rachel MarinNikoGhassan Nereida 350.1.13.10 [place] 4.2.7.2.686 Professio [id number] [address] 2020-03-16 2020-03-16 Orders Doctor ASHLEY [id number] 00:00:00 00:00:00 Only Unassigned, PASCALE 350.1.13.10 [place] [facility] 4.2.7.2.686 [id number] Results Test Description Test Time Test Comments Results Result Comments Source POCT-GLUCOSE METER 2018-10-17 21:54:00 Test Item Value Reference Range Interpretation Comme nts POC-GLUCOSE METER ([place]) (test 194 mg/dL 70-[address] [facility] [address] [place] [address] code = 1538) [facility] 7703 0 POCT-GLUCOSE [id number] 16:50:00 Test Item Value Reference Range Interpretation Comments POC-GLUCOSE METER 134 mg/dL 70-[address] [facility] 6720 ([place]) (test code = JENIFER R [facility] 1538) [id number] POCT-GLUCOSE [id number] 12:10:00 Test Item Value Reference Range Interpretation Comments POC-GLUCOSE METER 155 mg/dL 70-110 H TESTED AT [place] [address] ([facility]) (test code = JENIFER [place] [facility] 1538) [id number] POCT-GLUCOSE [id number] 05:34:00 Test Item Value Reference Range Interpretation Comments POC-GLUCOSE METER 249 mg/dL 70-110 H TESTED AT [place] [address] ([facility]) (test code = [facility]ER [place] [facility] 1538) [id number] POCT-GLUCOSE [id number] 00:09:00 Test Item Value Reference Range Interpretation Comments POC-GLUCOSE METER 236 mg/dL 70-110 H TESTED AT [place] [address] ([facility]) (test code = JENIFER [place] [facility] 1538) [address] POCT-GLUCOSE [id number] 21:17:00 Test Item Value Reference Range Interpretation Comments POC-GLUCOSE METER 153 mg/dL 70-110 H TESTED AT [place] [address] ([facility]) (test code = [facility]EN[facility]ER [place] [facility] 1538) [address] POCT-GLUCOSE [id number] 18:23:00 Test Item Value Reference Range Interpretation Comments POC-GLUCOSE METER 148 mg/dL 70-110 H TESTED AT [place] [address] ([facility]) (test code = [facility] [place] [facility] 1538) [address] [place], UGI, WITHOUT [id number] 17:33:00Reason for exam:->Please evaluate with thin barium [...] stomach. Esophageal peristalsis was normal. Signed: Hudson Lord MDReport Verified Date/Time: 10/16/2018 17:33:25 Reading Location: [facility] C013X [facility] Consult Reading Room -GLUCOSE [id number] 05:59:00 Test Item Value Reference Range Interpretation Comments POC-GLUCOSE METER 192 mg/dL 70-[address] [facility] 6720 (BEJANNA) (test code = [facility]EN[facility] [place] [facility] 1538) [id number] POCT-GLUCOSE [id number] 00:39:00 Test Item Value Reference Range Interpretation Comments POC-GLUCOSE METER 172 mg/dL 70-[address] [facility] 6720 ([facility]) (test code = JENIFER [place] [facility] 1538) [id number] POCT-GLUCOSE [id number] 22:13:00 Test Item Value Reference Range Interpretation Comments POC-GLUCOSE METER 187 mg/dL 70-[address] [facility] 67 ([facility]) (test code = JENIFER [place] [facility] 1538) [address] RAD, CHEST, 1 VIEW, NON [id number] 18:59:00Reason for exam:->preopShould this be performed at [...] congestion. No acute bonyabnormality. Signed: Chan Olson [facility] Verified Date/Time: 10/15/2018 18:59:09 Reading Location: [address] Consult Reading Room BASI METABOLIC [id number] 18:46:00 Test Item Value Reference Range Interpretation [...] NOT APPLICABLE FOR DIALYSIS PATIEN TS. HEMOGLOBIN [id number] 18:36:00 Test Item Value Reference Range Interpretation Comments HEMOGLOBIN A1C (BEAKER) (test code = 9.7 % 4.3-6.1 H 368) POCT-GLUCOSE [id number] 18:14:00 Test Item Value Reference Range Interpretation Comments POC-GLUCOSE METER 207 mg/dL 70-[address] [facility] 6720 ([facility]) (test code = [place] 1538) [id number] CBC W/PLT COUNT & AUTO [id number] 18:13:00 Test Item Value Reference Range Interpretation [...] % 0-1 PERCENT (BEAKER) (test code = 7371)
[2021-04-12] MEDS ORDERED: MORPHINE 2 MG/ML SYR ONE ×2 (11:11→13:09)
[2021-04-12 11:14] LABS: Absolute Lymphocytes (CBC) 2.4 K/uL (0.7-4.9); Hematocrit 37.7 % (36.0-45.0); Lymphocytes % 33.1 % (15.3-44.8); MPV 7.8 fL (7.6-11.3); RBC Red Blood Cell Count 4.47 M/uL (3.86-4.86)
--- NOTE | 2021-04-12 11:32 | RAD REPORT ---
EXAM DESCRIPTION: CT - Head Brain Wo Cont - 04/12/2021 11:26 am CLINICAL HISTORY: HEADACHE Headache, drowsiness COMPARISON: Head Brain Wo Cont dated 09/25/2018; Head Brain Wo Cont dated 07/23/2016 TECHNIQUE: All CT scans are performed using dose optimization technique as appropriate and may inclu de automated exposure control or mA/KV adjustment according to patient size. FINDINGS: No intracranial hemorrhage, hydrocephalus or extra-axial fluid collection.No areas of brai n edema or evidence of midline shift. The paranasal sinuses and mastoids are clear. The calvarium is intact. Right vertebral artery is athe rosclerotic. IMPRESSION: No acute intracranial abnormality.
[2021-04-12 11:34] LABS: Protime INR 1.01
[2021-04-12 11:44] LABS: Albumin 3.3 g/dL (3.4-5.0); Bilirubin Direct 0.1 mg/dL (0-0.2); Bilirubin Total 0.3 mg/dL (0.2-1.0); Potassium 4.6 mmol/L (3.5-5.1); Protein, Total 7.5 g/dL (6.4-8.2); Troponin High Sensitivity 8.1 pg/mL (<58.9)
--- NOTE | 2021-04-12 12:32 | RAD REPORT ---
EXAM DESCRIPTION: RAD - Chest Single View - 04/12/2021 12:28 pm CLINICAL HISTORY: CHEST PAIN COMPARISON: Chest Single View dated 04/13/2020; Chest Single View dated 03/04/2020; Chest Single View dated 02/25/2020; Chest Single View dated 11/07/2019 FINDINGS: Lines: None. Lungs: No evidence of edema or pneumonia. Pleural: No significant pleural effusions or pneumothorax. Cardiac: The heart size is within normal limits. Bones: No acute fractures. Other: IMPRESSION: No acute cardiopulmonary disease.
--- NOTE | 2021-04-12 13:39 | ER ---
Nurse's Notes [facility] Name: Tamy Martinez Age: 61 yrs Sex: Female : 1960 Arrival Date: 04/12/2021 Time: 10:24 Bed 24 Private MD: Diagnosis: Chest pain, unspecified Presentation: 04/12 10:38 Chief complaint: Patient states: pain to l jaw and chest radiating to shoulder blades jh6 that started this am \\[id number]\\0730. states that she took asa this am but not ntg. does have a cardiac hx. Coronavirus screen: Client denies travel out of the [place] in the last 14 days. At this time, the client does not indicate any symptoms associated with coronavirus-19. Ebola Screen: No symptoms or risks identified at this time. Initial Sepsis Screen: Does the patient meet any 2 criteria? No. Patient's initial sepsis screen is negative. Does the patient have a suspected source of infection? No. Patient's initial sepsis screen is negative. Risk Assessment: Do you want to hurt yourself or someone else? Patient reports no desire to harm self or others. Onset of symptoms was April 12, 2021. 10:38 Method Of Arrival: Ambulatory [facility] 10:38 Acuity: HODAN 2 6 Triage Assessment: 10:45 General: Appears in no apparent distress. comfortable, obese, unkempt, Behavior is jh6 calm, cooperative. Pain: Complains of pain in anterior aspect of left upper chest Pain radiates to left scapular area and thoracic area Pain currently is 8 out of 10 on a pain scale. Quality of pain is described as aching, tingling, Pain began suddenly, Is continuous, Alleviated by nothing. Aggravated by Noted to be. Neuro: No deficits noted. Cardiovascular: No deficits noted. Chest pain is described as mild, quality is burning, pressure, is located in left chest wall radiates to left arm(s) back jaw(s). Historical: - Allergies: 10:44 Iodinated Contrast Media - IV Dye; 6 - Home Meds: 10:44 aspirin 81 mg Oral TbEC once daily [Active]; Lantus 100 unit/mL Sub-Q soln 26 unit jh nightly [Active]; losartan 25 mg Oral tab once daily [Active]; Novolog Sub-Q sliding scale [Active]; Plavix 75 mg Oral tab once daily [Active]; Xeljanz 11 mg Oral daily [Active]; - PMHx: 10:44 Diabetes - IDDM; Hypertension; Hypertension resolved after lap band; Myocardial jh6 infarction; Rheumatoid Arthritis; - Immunization history:: Adult Immunizations up to date, Client reports having NOT received the Covid vaccine. Pneumococcal vaccine is up to date. - Social history:: Smoking status: Patient reports the use of cigarette tobacco products. Screenin:48 Abuse screen: Denies threats or abuse. Nutritional screening: No deficits noted. jh6 Tuberculosis screening: No symptoms or risk factors identified. Fall Risk None identified. Assessment: 11:17 General: Appears in no apparent distress. comfortable, Behavior is calm, cooperative, ab2 appropriate for age. Pain: Complains of pain in back and thoracic area and left scapular area and chest and anterior aspect of left upper chest Pain currently is 8 out of 10 on a pain scale. Quality of pain is described as aching. Pain: Pain began 4 hours ago. Pain:. Pain: Pain does not radiate. Neuro:. 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 Gait is steady, Speech is normal, Facial symmetry appears normal, Reports dizziness, weakness. Cardiovascular: Reports chest pain, Denies shortness of breath, Respiratory: No deficits noted. Airway is patent Breath sounds are clear bilaterally. Denies cough. GI: No deficits noted. No signs and/or symptoms were reported involving the gastrointestinal system. Abdomen is round non-distended, Bowel sounds present X 4 quads. Reports diarrhea. : No deficits noted. No signs and/or symptoms were reported regarding the genitourinary system. EENT: No deficits noted. No signs and/or symptoms were reported regarding the EENT system. Derm: No deficits noted. No signs and/or symptoms reported regarding the dermatologic system. Musculoskeletal: No deficits noted. No signs and/or symptoms reported regarding the musculoskeletal system. 13:10 Reassessment: Patient appears in no apparent distress at this time. Patient states pain ab2 was getting better but than started hurting again. Medication administered per physician order. Patient repositioned in bed, warm blankets given and lights dimmed per patient request. Patient resting at this time. 15:28 Reassessment: Patient appears in no apparent distress at this time. ab2 Vital Signs: 10:38 BP 114 / 54; Pulse 59; Resp 20; Temp 98.0; Pulse Ox 100% ; Weight 97.98 kg; Height 5 [facility] ft. 1 in. (154.94 cm); Pain 8/10; 11:28 BP 124 / 53; Pulse 61; Resp 16; Pulse Ox 98% on R/A; ab2 12:30 BP 111 / 50; Pulse 58; Resp 16; Pulse Ox 98% on R/A; Pain 6/10; ab2 13:16 BP 100 / 48; Pulse 56; Resp 16 S; Pulse Ox 99% on R/A; Pain 8/10; ab2 14:30 BP 123 / 63; Pulse 58; Resp 16; Pulse Ox 98% on R/A; ab2 15:26 BP 120 / 51; Pulse 56; Resp 16; Pulse Ox 99% on R/A; ab2 16:37 BP 130 / 53; Pulse 58; Resp 16; Pulse Ox 100% on R/A; ab2 17:32 BP 129 / 57; Pulse 60; Resp 18; Pulse Ox 100% on R/A; ab2 10:38 Body Mass Index 40.81 (97.98 kg, 154.94 cm) [facility] ED Course: 10:24 Patient arrived in ED. as 10:44 Triage completed. 6 10:47 Arm band placed on right wrist. EKG completed in triage. Results shown to MD. [facility] 10:52 Ildefonso Jasso PA is PHCP. cp 10:52 Prince Lopez MD is Attending Physician. cp 10:54 Silvio Bob is Primary Nurse. ab2 11:02 EKG done, by health physics technician. kv1 11:12 COVID-19 SARS RT PCR (Document "Date of Onset" if Symptomatic) Sent. ab2 11:12 Ptt, Activated Sent. ab2 11:12 Basic Metabolic Panel Sent. ab2 11:12 CBC with Diff Sent. ab2 11:12 LFT's Sent. ab2 11:12 Magnesium Sent. ab2 11:12 NT PRO-BNP Sent. ab2 11:12 PT-INR Sent. ab2 11:12 Troponin HS Sent. ab2 11:26 CT Head Brain wo Cont In Process Unspecified. EDMS 11:27 No provider procedures requiring assistance completed. Inserted saline lock: 20 gauge ab2 in right antecubital area, using aseptic technique. Patient maintains SpO2 saturation greater than 95% on room air. 11:28 Patient has correct armband on for positive identification. Bed in low position. Call ab2 light in reach. Side rails up X2. apartment leasing agent on. Pulse ox on. NIBP on. 12:28 XRAY Chest (1 view) In Process Unspecified. EDMS 13:37 Errol Jj is Hospitalizing Provider. cp 14:09 US Extremity Venous Unilateral Ltd In Process Unspecified. EDMS 18:12 Report given to Patience on medsurg. ab2 Administered Medications: 11:16 Drug: morphine 2 mg Route: IVP; Site: right antecubital; ab2 13:10 Drug: morphine 2 mg Route: IVP; Site: right antecubital; ab2 15:28 Follow up: Response: No adverse reaction ab2 14:12 Drug: Aspirin Chewable Tablet 324 mg Route: PO; ab2 15:28 Follow up: Response: No adverse reaction ab2 Outcome: 13:37 Decision to Hospitalize by Provider. cp 18:53 Patient left the ED. ab2 Signatures: Dispatcher [employer] EDMS Shana Ramsey Corey, PA PA cp Hastedt, Jennifer RN RN jh6 zEra Zaldivar Alexis ab2 Corrections: (The following items were deleted from the chart) 11:03 11:02 EKG done, by ED staff, kv1 kv1
--- NOTE | 2021-04-12 13:39 | EDPHYS ---
Physician Documentation [facility] Name: Tamy Martinez Age: 61 yrs Sex: Female : 1960 Arrival Date: 04/12/2021 Time: 10:24 Bed 24 Private MD: ED Physician Prince Lopez HPI: 04/12 11:05 This 61 yrs old Female presents to ER via Ambulatory with complaints of Chest Pain, cp Numbness, Headache, Shoulder Pain. 11:05 The patient or guardian reports chest pain that is located primarily in the anterior cp chest wall, left. 11:05 Onset: this morning, at 07:30. The pain radiates to the left shoulder, left jaw, left cp back. 11:05 The chest pain is described as aching. cp 11:05 Associated signs and symptoms: Pertinent positives: numbness of left arm, headache, cp Pertinent negatives: weakness. Duration: The patient or guardian reports a single episode, that is still ongoing, and unchanged. Historical: - Allergies: 10:44 Iodinated Contrast Media - IV Dye; jh6 - Home Meds: 10:44 aspirin 81 mg Oral TbEC once daily [Active]; Lantus 100 unit/mL Sub-Q soln 26 unit jh6 nightly [Active]; losartan 25 mg Oral tab once daily [Active]; Novolog Sub-Q sliding scale [Active]; Plavix 75 mg Oral tab once daily [Active]; Xeljanz 11 mg Oral daily [Active]; - PMHx: 10:44 Diabetes - IDDM; Hypertension; Hypertension resolved after lap band; Myocardial jh6 infarction; Rheumatoid Arthritis; - Immunization history:: Adult Immunizations up to date, Client reports having NOT received the Covid vaccine. Pneumococcal vaccine is up to date. - Social history:: Smoking status: Patient reports the use of cigarette tobacco products. ROS: 11:10 Constitutional: Negative for body aches, chills, fever, poor PO intake. cp 11:10 Eyes: Negative for injury, pain, redness, and discharge. cp 11:10 ENT: Negative for drainage from ear(s), ear pain, sore throat, difficulty swallowing, difficulty handling secretions. 11:10 Cardiovascular: Positive for chest pain, Negative for edema, palpitations. 11:10 Respiratory: Negative for cough, shortness of breath, wheezing. 11:10 Abdomen/GI: Negative for abdominal pain, nausea, vomiting, and diarrhea. 11:10 Back: Positive for radiated pain. 11:10 MS/extremity: Positive for pain, paresthesias, of the left arm, Negative for injury or acute deformity, decreased range of motion. 11:10 Neuro: Positive for headache, Negative for altered mental status, syncope, weakness. 11:10 All other systems are negative. Exam: 11:00 ECG was reviewed by the Attending Physician. cp 11:15 Constitutional: The patient appears in no acute distress, alert, awake, cp non-diaphoretic, non-toxic, well developed, well nourished, obese. 11:15 Head/Face: Normocephalic, atraumatic. cp 11:15 Eyes: Periorbital structures: appear normal, Pupils: equal, round, and reactive to light and accomodation, Extraocular movements: intact throughout, Conjunctiva: normal, no exudate, no injection, Sclera: no appreciated abnormality, Lids and lashes: appear normal, bilaterally. 11:15 ENT: External ear(s): are unremarkable, Nose: is normal, Mouth: Lips: moist, Oral mucosa: moist, Posterior pharynx: Airway: no evidence of obstruction, patent. 11:15 Neck: ROM/movement: pain, that is mild, limited range of motion, is not appreciated, nuchal rigidity, is not appreciated. 11:15 Chest/axilla: Inspection: normal. 11:15 Cardiovascular: Rate: bradycardic, Rhythm: regular, Edema: is not appreciated, JVD: is not appreciated. 11:15 Respiratory: the patient does not display signs of respiratory distress, Respirations: normal, no use of accessory muscles, no retractions, labored breathing, Breath sounds: are clear throughout, no decreased breath sounds, no stridor, no wheezing. 11:15 Abdomen/GI: Inspection: abdomen appears normal, Palpation: abdomen is soft and non-tender, in all quadrants. 11:15 Back: pain, that is mild, of the left trapezius and left scapular area, ROM is normal. 11:15 Neuro: Orientation: to person, place \\T\\ time. Mentation: is normal, Cerebellar function: is grossly normal, Motor: moves all fours, strength is normal, Sensation: no obvious gross deficits. Vital Signs: 10:38 BP 114 / 54; Pulse 59; Resp 20; Temp 98.0; Pulse Ox 100% ; Weight 97.98 kg; Height 5 jh6 ft. 1 in. (154.94 cm); Pain 8/10; 11:28 BP 124 / 53; Pulse 61; Resp 16; Pulse Ox 98% on R/A; ab2 12:30 BP 111 / 50; Pulse 58; Resp 16; Pulse Ox 98% on R/A; Pain 6/10; ab2 13:16 BP 100 / 48; Pulse 56; Resp 16 S; Pulse Ox 99% on R/A; Pain 8/10; ab2 14:30 BP 123 / 63; Pulse 58; Resp 16; Pulse Ox 98% on R/A; ab2 15:26 BP 120 / 51; Pulse 56; Resp 16; Pulse Ox 99% on R/A; ab2 16:37 BP 130 / 53; Pulse 58; Resp 16; Pulse Ox 100% on R/A; ab2 17:32 BP 129 / 57; Pulse 60; Resp 18; Pulse Ox 100% on R/A; ab2 10:38 Body Mass Index 40.81 (97.98 kg, 154.94 cm) 6 MDM: 10:53 Patient medically screened. cp 12:00 Differential diagnosis: abnormal EKG, acute myocardial infarction, pleurisy, pneumonia, cp pneumothorax, stable angina, unstable angina. 13:30 Data reviewed: vital signs, nurses notes, lab test result(s), EKG, radiologic studies, cp CT scan, plain films. 13:30 Test interpretation: by ED physician or midlevel provider: ECG, plain radiologic cp studies. Physician consultation: Errol Jj was called at 13:30, was contacted at 13:30, regarding admission, to the telemetry unit. patient's condition. 04/12 11:02 Order name: Basic Metabolic Panel; Complete Time: 17:27 cp 04/12 12:42 Interpretation: Normal except: GLUC 150; BUN 34; CRE 1.51; GFR 35. cp 04/12 11:02 Order name: CBC with Diff; Complete Time: 12:42 cp 04/12 12:43 Interpretation: RDW 16.7. cp 04/12 11:02 Order name: LFT's; Complete Time: 17:27 cp 04/12 12:43 Interpretation: Normal except: ALB 3.3; GLOB 4.2; A/G 0.8. cp 04/12 11:02 Order name: Magnesium; Complete Time: 17:27 cp 04/12 11:02 Order name: NT PRO-BNP; Complete Time: 17:27 cp 04/12 11:02 Order name: PT-INR; Complete Time: 12:42 cp 04/12 11:02 Order name: Troponin HS; Complete Time: 17:27 cp 04/12 11:02 Order name: XRAY Chest (1 view); Complete Time: 12:42 cp 04/12 15:03 Interpretation: Report reviewed. cp 04/12 11:02 Order name: CT Head Brain wo Cont; Complete Time: 12:42 cp 04/12 12:43 Interpretation: Report reviewed. 04/12 11:02 Order name: Ptt, Activated; Complete Time: 12:42 cp 04/12 11:02 Order name: COVID-19 SARS RT PCR (Document "Date of Onset" if Symptomatic); Complete cp Time: :04/12 13:34 Order name: US Extremity Venous Unilateral Ltd; Complete Time: 14: cp 04/12 15:03 Interpretation: Report reviewed. cp 04/12 11:02 Order name: EKG; Complete Time: 11:03 cp 04/12 11:02 Order name: Cardiac monitoring; Complete Time: 11:12 cp 04/12 11:02 Order name: EKG - Nurse/Tech; Complete Time: 11:12 cp 04/12 11:02 Order name: IV Saline Lock; Complete Time: 11:12 04/12 11:02 Order name: Labs collected and sent; Complete Time: 11:12 cp 04/12 11:02 Order name: O2 Per Protocol; Complete Time: 11:12 cp 04/12 11:02 Order name: O2 Sat Monitoring; Complete Time: 11:12 EC:00 Rate is 58 beats/min. Rhythm is regular. VT interval is normal. QRS interval is normal. cp QT interval is normal. T waves are Inverted in leads aVL, aVR. Interpreted by me. Reviewed by me. Administered Medications: 11:16 Drug: morphine 2 mg Route: IVP; Site: right antecubital; ab2 13:10 Drug: morphine 2 mg Route: IVP; Site: right antecubital; ab2 15:28 Follow up: Response: No adverse reaction ab2 14:12 Drug: Aspirin Chewable Tablet 324 mg Route: PO; ab2 15:28 Follow up: Response: No adverse reaction ab2 Disposition: 19:02 Co-signature as Attending Physician, Prince Lopez MD I agree with the assessment and rn plan of care. Attestation: The patient's history, exam findings, diagnostics, and a summary of any interventions or procedures was reviewed in detail with Ildefonso DOOLEY. Disposition Summary: 04/12/21 13:37 Hospitalization Ordered Hospitalization Status: Observation cp Provider: Errol Jj cp Location: Telemetry/MedSurg (observation) cp Condition: Stable cp Problem: new cp Symptoms: have improved cp Bed/Room Type: Standard Room Assignment: [facility](04/12/21 16:53) Diagnosis - Chest pain, unspecified cp Forms: - Medication Reconciliation Form cp - SBAR form cp Signatures: Dispatcher [employer] Vilma Millan RN RN dw Prince Lopez MD MD rn Page, Corey, PA PA cp Zoraida Ayala RN RN jh6 Silvio Bob ab2 Corrections: (The following items were deleted from the chart) 16:53 13:37 cp dw 04/13 17:25 04/12 11:05 The pain radiates to the left shoulder, left jaw, cp cp 04/13 17:26 04/12 11:05 Associated signs and symptoms: Pertinent positives: numbness of left arm, cp Pertinent negatives: weakness, cp
[2021-04-12] MEDS ORDERED: ASPIRIN 81 MG CHEWABLE TABLET ONE (14:12)
--- NOTE | 2021-04-12 14:17 | RAD REPORT ---
EXAM DESCRIPTION: US - Extremity Venous Uni Ltd - 04/12/2021 2:09 pm CLINICAL HISTORY: 04/11/2016 COMPARISON: None. TECHNIQUE: Real-time sonographic evaluation of the left lower extremity deep venous system was perfo rmed. FINDINGS: Normal compressibility, flow augmentation, phasic flow and spontaneous flow is identified in the left lower extremity deep venous system. No intraluminal filling defects seen. IMPRESSION: No DVT in the left lower extremity.
--- NOTE | 2021-04-12 15:57 | P.HP ---
Certification for Inpatient Patient admitted to: Observation With expected LOS: <2 Midnights Practitioner: I am a practitioner with admitting privileges, knowledge of patient current condition, hospital course, and medical plan of care. Services: Services provided to patient in accordance with Admission requirements found in Title 42 Section 412.3 of the Code of Federal Regulations Patient History Date of Service: 04/12/21 Reason for admission: Chest pain, jaw pain History of Present Illness: 61-year-old woman with a history of coronary artery disease status cardiac stent, multiple hospitalization for recurrent chest pain presented to the emergency department due to sudden onset of jaw pain, left shoulder pain and tingling sensation in bilateral which occurred at rest, at the workplace. Patient denies any shortness of breath or palpitation. Initial troponin in the ED is negative, EKG shows no ischemic changes. Chest x-ray shows no acute disease. Patient with significant coronary artery disease. She is placed on observation for further evaluation. Allergies Iodinated Contrast Media [Iodinated Contrast Media - Oral and] Allergy (Severe, Verified 03/13/17 21:21) Unknown iodine [Iodine] Allergy (Severe, Verified 04/11/16 14:05) Itching and swelling Home Medications: Gabapentin [Neurontin] 600 mg PO BID 02/25/20 Insulin Aspart [Novolog Penfill] See Protocol SQ ACHS 02/25/20 Insulin Glargine Human [Lantus*] 26 units SQ BREAKFAST 02/25/20 Losartan Potassium [Cozaar] 25 mg PO DAILY 02/25/20 Tofacitinib Citrate [Xeljanz Xr] 1 tab PO DAILY 02/25/20 Aspirin [Aspirin EC 81 MG] 162 mg PO DAILY #60 tablet. 02/28/20 Atorvastatin Calcium [Lipitor] 40 mg PO BEDTIME #30 tab 02/28/20 Clopidogrel Bisulfate [Plavix*] 75 mg PO DAILY #30 tablet 02/28/20 Vitamin D [Drisdol*] 50,000 unit PO Q7D@0900 #10 cap 02/28/20 Methotrexate [Methotrexate*] 3 tab PO Q7D 03/05/20 Cyclosporine [Restasis] 1 drop EACH EYE BID 04/13/20 Guaif/Dm [Robitussin Dm*] 5 ml PO Q6HP PRN 04/13/20 Isosorbide Mononitrate [Isosorbide Mononitrate ER] 1 tab PO DAILY 04/13/20 Metoprolol Tartrate [Lopressor*] 12.5 mg PO DAILY 04/13/20 Nitroglycerin 1 tab SL [id number] 04/13/20 Tramadol HCl [Ultram] 1 tab PO Q6H PRN 04/13/20 - Past Medical/Surgical History Diabetic: Yes -: Diabetes mellitus type 2 -: HTN -: Rheuamtoid Arthritis -: Degenerative disk and joint disease of the spine -: Lap band 2009 -: x2 -: Left knee replacement -: Cholecystectomy -: right knee replacement Psychosocial/ Personal History: She is , has 2 children. She does not work. - Family History Father -: Hypertension Notes: brother had DE at 30; Mother -: Cancer Notes: esophageal - Social History Alcohol use: No CD- Drugs: No Caffeine use: No Review of Systems Other: Except as documented, all other systems reviewed and negative. Physical Examination - Physical Exam General: Alert, In no apparent distress, Oriented x3 HEENT: Atraumatic, PERRLA, Mucous membr. moist/pink, EOMI, Sclerae nonicteric Neck: Supple, JVD not distended Respiratory: Clear to auscultation bilaterally, Normal air movement Cardiovascular: No edema, Regular rate/rhythm, Normal S1 S2, No murmurs Gastrointestinal: Normal bowel sounds, Soft and benign, Non-distended, No tenderness Musculoskeletal: No swelling, No tenderness Integumentary: No rashes, No erythema, No cyanosis Neurological: Normal speech, Normal strength at 5/5 x4 extr, Cranial nerves 3-12 intact Lymphatics: No axilla or inguinal lymphadenopathy - Studies Laboratory Data (last 24 hrs) 04/12/21 11:00: PT 11.6, INR 1.01, APTT 32.0 04/12/21 11:00: WBC 7.30, Hgb 12.4, Hct 37.7, Plt Count 299 04/12/21 11:00: Sodium 137, Potassium 4.6, BUN 34 H, Creatinine 1.51 H, Glucose 150 H, 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 Continue to trend troponin We will continue her home dose aspirin, Plavix and Lipitor. Continue Imdur for angina. NTG as needed. Insulin sliding scale for glucose management. Nuclear stress test in a.m. if troponin trend negative. Further management will based on troponin result and nuclear stress test. - Advance Directives Does patient have a Living Will: No Does patient have a Durable POA for Healthcare: No
[2021-04-12] MEDS ORDERED: ACETAMINOPHEN 500 MG TAB PO PRN (19:25)
[2021-04-12] MEDS ORDERED: NITROGLYCERIN 0.4 MG/TAB SL PRN (19:25)
[2021-04-12] MEDS: INSULIN -REGULAR HUMAN 50 UNIT/0.5 ML ML SQ SCH ×2 (19:25→21:00)
[2021-04-12] MEDS ORDERED: FAMOTIDINE 20 MG/2 ML VIAL IV PRN (20:23)
[2021-04-12] MEDS: MORPHINE 2 MG/ML SYR IV PRN (20:55)
[2021-04-12] MEDS ORDERED: ATORVASTATIN 40 MG TAB PO SCH (21:00)
[2021-04-12] MEDS: METOPROLOL XL 25 MG TAB PO SCH (21:00)
[2021-04-12] MEDS ORDERED: HOME MED 1 EA UNK (Gabapentin [Neurontin] 600 MG Tablet) PO SCH (21:00)
[2021-04-13 01:03] VITALS: BMI 40.8
[2021-04-13 02:27] LABS: Magnesium 1.87
[2021-04-13 06:12] LABS: Absolute Lymphocytes (CBC) 1.2 K/uL (0.7-4.9); Hematocrit 39.4 % (36.0-45.0); Lymphocytes % 15.9 % (15.3-44.8); MPV 7.7 fL (7.6-11.3)
[2021-04-13 06:25] LABS: Potassium 4.5 mmol/L (3.5-5.1)
[2021-04-13] MEDS: INSULIN -REGULAR HUMAN 50 UNIT/0.5 ML ML SQ SCH ×4 (07:30→21:00)
[2021-04-13] MEDS ORDERED: REGADENOSON 0.4 MG/5 ML SYR IV ONE (08:16)
--- NOTE | 2021-04-13 08:17 | EKG ---
Test Date: 2021-04-12 Test Time: 10:49:38 Shooting Gallery Operator: KV MEASUREMENT RESULTS: Intervals: Rate: 58 VT: 138 QRSD: 80 QT: 436 QTc: 428 [place]: P: 67 VT: 138 QRS: -5 T: 64 INTERPRETIVE STATEMENTS: Sinus bradycardia Cannot rule out Anterior infarct, age undetermined Abnormal ECG Compared to ECG 04/13/2020 10:13:30 Myocardial infarct finding now present Sinus rhythm no longer present ST (T wave) deviation no longer present Electronically Signed On 04-13-21 08:14:00 [employer]ESSING by Tarun Edward
[2021-04-13] MEDS: GABAPENTIN 300 MG CAP PO SCH ×2 (09:00→21:11)
[2021-04-13] MEDS: ASPIRIN EC 81 MG TAB PO SCH (09:00)
[2021-04-13] MEDS: METOPROLOL XL 25 MG TAB PO SCH ×2 (09:00→21:12)
[2021-04-13] MEDS: ISOSORBIDE MONO SR 30 MG TAB PO SCH (09:00)
[2021-04-13] MEDS: CLOPIDOGREL 75 MG TABLET PO SCH (09:00)
--- NOTE | 2021-04-13 09:19 | CON ---
Date of Consultation: 04/13/[address] Lopez on 04/12/2021. I saw the patient on 04/13/2021. Reason For Consultation: Chest pain. History Of Present Illness: Ms. Martinez is 61. She has a history of coronary artery disease. Last c atheterization less than a year ago showed 40% to 50% stenosis in the RCA. She had an FFR done, whic h did not show the lesion to be significant. She has some other moderate plaquing in different vesse ls. No intervention was done. She comes back with chest pain, radiating to the jaw and both arms th at resolved after about 10-15 minute. It was nonexertional. No nausea, vomiting, diaphoresis, PND, orthopnea, pedal edema, palpitations, or syncope. Her EKG, chest x-ray, troponin, BNP are within nor mal limit. She had a venous Doppler, head CT, and chest x-ray are negative. She is symptoms free no w. Lexiscan is pending. Past Medical History: Includes hypertension, dyslipidemia, coronary artery disease, diabetes, neurop athy, and rheumatoid arthritis. Allergies: SHE IS ALLERGIC TO IODINE. Review of Systems: Negative. Social History: Negative. Family History: Noncontributory. Medications: At home include aspirin, Plavix, Lipitor, Synjardy, insulin, Neurontin, Imdur, losartan , methotrexate, and metoprolol. Physical Examination: Vital Signs: Stable, afebrile. HEENT: Negative. Neck: Supple with no bruit. Chest: Clear. Cardiac: Revealed a regular rhythm and rate with S4 gallops. Abdomen: Benign. Extremities: Revealed no clubbing, cyanosis, or edema. Diagnostic Data: As stated earlier. EKG is nonspecific. Impression And Plan: I think Ms. Martinez is having stable anginal symptoms consistent with moderate c oronary artery disease. She is on appropriate therapy. She certainly could have coronary artery dis ease worsen because of diabetes. We will see what her Lexiscan shows before making further decision. If it is normal, we will increase her beta-blockers and isosorbide. If it is abnormal, we will pro ceed with another catheterization tomorrow. If she can have a catheterization, she will have to be p re-treated with steroid because of allergy to iodine. Her other issues including dyslipidemia, diabe kulwant, hypertension, rheumatoid arthritis, and neuropathy are stable. NB/MODL Voice ID: [id number] Report ID: [id number]
--- NOTE | 2021-04-13 10:55 | RAD REPORT ---
EXAM DESCRIPTION: CTAbdomen Pelvis Wo Contrast - 04/13/2021 10:27 am CLINICAL HISTORY: nausea, LUQ abd pain COMPARISON: Abdomen Pelvis W Contrast dated 08/10/2019; Abdomen Pelvis Wo Contrast dated 10/15/2018 ; Stone Protocol dated 02/09/2017; CT ABDOMEN PELVIS WO CONTRAST dated 05/26/2011 TECHNIQUE: CT of the abdomen and pelvis was performed. All CT scans are performed using dose optimization technique as appropriate and may include automated exposure control or mA/KV adjustment according to patient size. FINDINGS: Lower chest: Coronary artery calcifications. Small volume of fluid in the distal esophagus . Liver: No acute abnormality or suspicious lesions. Biliary: Cholecystectomy. Stomach: Status post gastric banding procedure.Particulate matter is present within the gastric pouch . Both findings are nonspecific. Abnormal configuration of the gastric band which is oriented perpend icularly to the spine. Duodenum: No significant focal abnormality. Pancreas: No significant abnormality. Spleen: No significant abnormality. Adrenal: No suspicious lesions. Kidney/ureter: No hydronephrosis. No renal calculi. Previously noted left upper pole renal lesion is not identified on this noncontrast CT. Retroperitoneum: No retroperitoneal adenopathy. Vascular: Atherosclerosis. No aneurysm. Bowel: A few scattered colonic diverticula. No evidence of acute diverticulitis.. Peritoneum: No ascites or free air. Bladder: Grossly unremarkable. Reproductive: No adnexal masses. Bones: No acute fracture. Other: n/a IMPRESSION: Abnormal can figure of the gastric band concerning for slippage. Particulate matter in f luid within the distal esophagus and gastric pouch is nonspecific. This could impede passage of food. Correlate with patient's symptoms.
[2021-04-13] MEDS: ENOXAPARIN 40 MG/0.4 ML SQ SCH (11:34)
--- NOTE | 2021-04-13 12:45 | RAD REPORT ---
EXAM DESCRIPTION: NM - Rest Stress Cardiac Imaging - 04/13/2021 9:38 am CLINICAL HISTORY: Chest pain Chest pain. COMPARISON: Rest Stress Cardiac Imaging dated 04/14/2020 TECHNIQUE: The patient was administered approximately 10mCi of Tc 99m Sestamibi prior to resting SPE CT imaging of the heart. The patient was then administered approximately 30 mCi of Tc 99m Sestamibi f ollowing exercise or pharmacologic stress. Multiplanar SPECT images were reviewed. FINDINGS: There is a mild area of diminished radiopharmaceutical accumulation seen along the LV sept um with stress. This is suspicious for mild stress-induced ischemia. No fixed defect is seen to sugge st hibernating myocardium or scarred myocardium. The end diastolic volume is 74 ml, the end systolic volume is 22 ml, and the ejection fraction is 70 %. IMPRESSION: Mild to moderate stress-induced ischemia suspected involving the LV septum.
--- NOTE | 2021-04-13 13:36 | P.PN ---
Date of Service: 04/13/21 Subjective: Chest pain improved This morning with nausea and LUQ discomfort, intermittently over last several weeks Feels as if food gets stuck in her lower part of her throat/stomach, which causes her to vomit ROS: 10 point ROS as noted above, otherwise negative Physical exam GEN: Alert, oriented, appears uncomfortable HEENT: Normal conjunctiva, sclera anicteric CV: Regular rate and rhythm, no edema Pulm: Nonlabored respirations on room air ABD: Soft, mild tenderness to palpation in LUQ, nondistended Integumentary: No rashes Neuro: Normal speech, normal affect Problem List Chest pain, concern for unstable angina CAD, h/o stent Nausea/vomiting, history of lap band DM2 RA Troponin negative Stress test with mildmoderate stress-induced ischemia Cardiology consulted, plan for cardiac catheterization tomorrow. N.p.o. after midnight Patient's abdominal pain, describes this as a separate sensation/pain from her chest pain Abdominal pain/nausea has been intermittent for the last several weeks CT abdomen/pelvis obtained this morning -noted possible slippage of lap band Patient will need to follow-up general surgery as outpatient. Needs cardiac evaluation/clearance No emergent findings at this time, will advance diet. Will need more urgent consult/transfer to bariatric center if having intractable nausea/vomiting Continue home aspirin/Plavix/statin Continue Imdur for angina Code: Full Dispo: cath tomorrow, likely dc afterwards
--- NOTE | 2021-04-13 14:27 | TREADPHA ---
DX: CHEST PAIN Date of Study: 04/13/2021 Ht: 5' 1 " Wt: 216 lb 0 oz Consulting Physician: CHASTITY MEDICATIONS: ASPIRIN, LIPITOR, PLAVIX, LOVENOX, NEURONTIN, NOVOLIN-R HISTORY: 61 YEAR OLD FEMALE WITH COMPLAINTS OF CHEST PAIN. HISTORY OF DIABETES AND HYPERTENSION. PHYSICIAL EXAMINATION: RESTING B.P.: 150/81 RESTING H.R.: 62 RESTING EKG: NORMAL SINUS RHYTHM. PROTOCOL: LEXISCAN EXERCISE TIME: 3:30 B.P. AT PEAK STRESS: 102/46 IMPRESSION: LEXISCAN INJECTED. CARDIOLITE INJECTED PER PROTOCOL. SEE NUCLEAR MEDICINE REPORT. NO CHEST PAIN, SUPRAVENTRICULAR TACHYCARDIA, VENTRICULAR TACHYCARDIA OR PREMATURE COMPLEXES NOTED. PATIENT COMPAINS OF HEADACHE, DENIES CHEST PAIN OR PRESSURE.
[2021-04-13] MEDS: MORPHINE 2 MG/ML SYR IV PRN ×2 (16:20→22:25)
[2021-04-13] MEDS ORDERED: ATORVASTATIN 40 MG TAB PO SCH (21:00)
[2021-04-14 06:11] LABS: Hematocrit 40.2 % (36.0-45.0); Lymphocytes % 17.3 % (15.3-44.8); MPV 7.6 fL (7.6-11.3); RBC Red Blood Cell Count 4.77 M/uL (3.86-4.86)
[2021-04-14 06:23] LABS: Protime INR 0.99
--- NOTE | 2021-04-14 06:26 | P.PN ---
Date of Service: 04/14/21 Subjective: ROS: 10 point ROS as noted above, otherwise negative Physical exam GEN: Alert, oriented, appears uncomfortable HEENT: Normal conjunctiva, sclera anicteric CV: Regular rate and rhythm, no edema Pulm: Nonlabored respirations on room air ABD: Soft, mild tenderness to palpation in LUQ, nondistended Integumentary: No rashes Neuro: Normal speech, normal affect Problem List Chest pain, concern for unstable angina CAD, h/o stent Nausea/vomiting, history of lap band DM2 RA Troponin negative Stress test with mildmoderate stress-induced ischemia Cardiology consulted, plan for cardiac catheterization tomorrow. N.p.o. after midnight Patient's abdominal pain, describes this as a separate sensation/pain from her chest pain Abdominal pain/nausea has been intermittent for the last several weeks CT abdomen/pelvis obtained this morning -noted possible slippage of lap band Patient will need to follow-up general surgery as outpatient. Needs cardiac evaluation/clearance No emergent findings at this time, will advance diet. Will need more urgent consult/transfer to bariatric center if having intractable nausea/vomiting Continue home aspirin/Plavix/statin Continue Imdur for angina Code: Full Dispo: cath tomorrow, likely dc afterwards
[2021-04-14 06:27] LABS: Potassium 4.1 mmol/L (3.5-5.1)
[2021-04-14] MEDS ORDERED: HEPA 1000U/500MLS 1,000 UNIT/500 ML BAG IV ONE (07:15)
[2021-04-14] MEDS ORDERED: LIDOCAINE 1% 20 ML MDV ONE (07:16)
[2021-04-14] MEDS ORDERED: FENTANYL CITR 100 MCG/2 ML ONE (07:16)
[2021-04-14] MEDS ORDERED: MIDAZOLAM HCL 2 MG/2 ML INJ ONE ×2 (07:16→07:42)
[2021-04-14] MEDS ORDERED: NA CHLORIDE 0.9% 0 ML ONE (07:17)
[2021-04-14] MEDS ORDERED: NA CHLORIDE 0.9% 500 ML ONE (07:24)
[2021-04-14] MEDS ORDERED: DIPHENHYDRAMINE 50 MG/ML VIAL ONE (07:24)
[2021-04-14] MEDS ORDERED: METHYLPREDNISOLONE 125 MG INJ ONE (07:24)
[2021-04-14] MEDS: INSULIN -REGULAR HUMAN 50 UNIT/0.5 ML ML SQ SCH ×2 (07:30→10:56)
[2021-04-14 08:53] VITALS: O2SAT 100
[2021-04-14] MEDS: ISOSORBIDE MONO SR 30 MG TAB PO SCH (09:00)
[2021-04-14] MEDS: METOPROLOL XL 25 MG TAB PO SCH (09:00)
[2021-04-14] MEDS: GABAPENTIN 300 MG CAP PO SCH (09:00)
[2021-04-14] MEDS: ASPIRIN EC 81 MG TAB PO SCH (09:00)
[2021-04-14] MEDS: CLOPIDOGREL 75 MG TABLET PO SCH (09:00)
[2021-04-14] MEDS: MORPHINE 2 MG/ML SYR IV PRN (09:52)
[2021-04-14] MEDS: ENOXAPARIN 40 MG/0.4 ML SQ SCH (09:56)
[2021-04-14 12:10] VITALS: BP 153/68; TEMP 97
--- NOTE | 2021-04-14 16:11 | P.DS ---
Admission Date: 04/13/21 Discharge Date: 04/14/21 Disposition: ROUTINE DISCHARGE Discharge Condition: GOOD Reason for Admission: Chest pain, jaw pain Consultations: Cardiology- Dr. Edward Procedures: CT abdomen/pelvis (04/13): FINDINGS: Lower chest: Coronary artery calcifications. Small volume of fluid in the distal esophagus. Liver: No acute abnormality or suspicious lesions. Biliary: Cholecystectomy. Stomach: Status post gastric banding procedure.Particulate matter is present within the gastric pouch. Both findings are nonspecific. Abnormal configuration of the gastric band which is oriented perpendicularly to the spine. Duodenum: No significant focal abnormality. Pancreas: No significant abnormality. Spleen: No significant abnormality. Adrenal: No suspicious lesions. Kidney/ureter: No hydronephrosis. No renal calculi. Previously noted left upper pole renal lesion is not identified on this noncontrast CT. Retroperitoneum: No retroperitoneal adenopathy. Vascular: Atherosclerosis. No aneurysm. Bowel: A few scattered colonic diverticula. No evidence of acute diverticulitis.. Peritoneum: No ascites or free air. Bladder: Grossly unremarkable. Reproductive: No adnexal masses. Bones: No acute fracture. Other: n/a IMPRESSION: Abnormal can figure of the gastric band concerning for slippage. Particulate matter in fluid within the distal esophagus and gastric pouch is nonspecific. This could impede passage of food. Correlate with patient's symptoms. Cardiac catheterization by Dr. Edward Problem List stable angina CAD, h/o stent Intermittent nausea, secondary to malpositioned lap band DM2, [id number] RA Brief History of Present Illness: 61-year-old woman with a history of coronary artery disease status cardiac stent, multiple hospitalization for recurrent chest pain presented to the emergency department due to sudden onset of jaw pain, left shoulder pain and tingling sensation in bilateral which occurred at rest, at the workplace. Patient denies any shortness of breath or palpitation. Initial troponin in the ED is negative, EKG shows no ischemic changes. Chest x-ray shows no acute disease. Patient with significant coronary artery disease. She is placed on observation for further evaluation. Hospital Course: EKG and troponin were normal/without signs of acute ischemia. Patient's stress test was positive for stress-induced ischemia. Cardiology was consulted, patient underwent cardiac catheterization on 04/14 which revealed some moderate distal atherosclerotic disease, not amenable to stenting. Cardiology recommended to continue medical management, double up on the Imdur. Patient's Imdur was increased from 30 mg daily to 60 mg daily. Patient to consider possibly switching to [employer], to discuss with her abnormal psychology teacher. Follow-up with her abnormal psychology teacher 2 weeks Follow-up with PCP in the next 1-2 weeks. Patient also reported intermittent LUQ abdominal pain over the last few months. One evening during hospitalization she did have some nausea, and feeling as though food gets stuck in her throat/stomach. CT abdomen/pelvis revealed signs to suggest patient's prior lap band has slipped/out of place. No evidence of infection/inflammation. Patient was able to tolerate p.o. Patient already has an appointment scheduled to follow-up with a bariatric surgeon. Advised to present to the ER at a tertiary care center if develops intractable nausea/vomiting, as this may be due to her lap band change in position. Vital Signs/Physical Exam: Physical exam GEN: Alert, oriented, NAD HEENT: Normal conjunctiva, sclera anicteric CV: Regular rate and rhythm, no edema Pulm: Nonlabored respirations on room air ABD: Soft, nontender, nondistended Neuro: Normal speech, normal affect Temp Pulse Resp BP Pulse Ox 97.0 F 54 18 153/68 H 97 04/14/21 12:00 04/14/21 12:00 04/14/21 12:00 04/14/21 12:00 04/14/21 12:00 Laboratory Data at Discharge: WBC 5.80 K/uL (4.3-10.9) D 04/14/21 05:48 Hgb 13.0 g/dL (12.0-15.0) 04/14/21 05:48 Hct 40.2 % (36.0-45.0) 04/14/21 05:48 Plt Count 237 K/uL (152-406) 04/14/21 05:48 PT 11.4 SECONDS (9.5-12.5) 04/14/21 05:48 INR 0.99 04/14/21 05:48 APTT 32.0 SECONDS (24.3-36.9) 04/12/21 11:00 Sodium 139 mmol/L (136-145) 04/14/21 05:48 Potassium 4.1 mmol/L (3.5-5.1) 04/14/21 05:48 BUN 23 mg/dL (7-18) H 04/14/21 05:48 Creatinine 1.05 mg/dL (0.55-1.3) 04/14/21 05:48 Glucose 133 mg/dL (74-106) H 04/14/21 05:48 Magnesium 1.87 04/12/21 11:00 Total Bilirubin 0.3 mg/dL (0.2-1.0) 04/12/21 11:00 AST 21 U/L (15-37) 04/12/21 11:00 ALT 23 U/L (12-78) 04/12/21 11:00 Alkaline Phosphatase 114 U/L (45-117) 04/12/21 11:00 Triglycerides 89 mg/dL (<150) 04/12/21 19:53 Cholesterol 128 mg/dL (<200) 04/12/21 19:53 HDL Cholesterol 53 mg/dL (40-60) 04/12/21 19:53 Cholesterol/HDL Ratio 2.42 04/12/21 19:53 Home Medications: Gabapentin [Neurontin] 600 mg PO BID 02/25/20 Losartan Potassium [Cozaar] 50 mg PO DAILY 02/25/20 Aspirin [Aspirin EC 81 MG] 162 mg PO DAILY #60 tablet.dr 02/28/20 Atorvastatin Calcium [Lipitor] 40 mg PO BEDTIME #30 tab 02/28/20 Clopidogrel Bisulfate [Plavix*] 75 mg PO DAILY #30 tablet 02/28/20 Methotrexate [Methotrexate*] 4 tab PO Q7D 03/05/20 Metoprolol Tartrate [Lopressor*] 12.5 mg PO BID 04/13/20 Empagliflozin/Metformin HCl [Synjardy Xr 25-1,000 mg Tablet] 1 tab PO DAILY 04/13/21 Folic Acid 1 mg PO DAILY 04/13/21 Insulin Aspart 8 units SQ BREAKFAST 04/13/21 Insulin Degludec [Tresiba] 26 unit SQ BREAKFAST 04/13/21 Isosorbide Mononitrate [Isosorbide Mononitrate ER] 60 mg PO DAILY 30 Days #30 tab.er.24h 04/14/21 New Medications: Isosorbide Mononitrate [Isosorbide Mononitrate ER] 60 mg PO DAILY 30 Days #30 tab.er.24h Physician Discharge Instructions: EKG and troponin were normal/without signs of acute ischemia. Patient's stress test was positive for stress-induced ischemia. Cardiology was consulted, patient underwent cardiac catheterization on 04/14 which revealed some moderate distal atherosclerotic disease, not amenable to stenting. Cardiology recommended to continue medical management, double up on the Imdur. Patient's Imdur was increased from 30 mg daily to 60 mg daily. Patient to consider possibly switching to [employer], to discuss with her abnormal psychology teacher. Follow-up with her abnormal psychology teacher 2 weeks Follow-up with PCP in the next 1-2 weeks. Patient also reported intermittent LUQ abdominal pain, nausea, and feeling as though food gets stuck in her throat/stomach. CT abdomen/pelvis revealed signs to suggest patient's prior lap band has slipped/out of place. No evidence of infection/inflammation. Patient was able to tolerate p.o. Patient already has an appointment scheduled to follow-up with a bariatric surgeon. Advised to present to the ER at a tertiary care center if develops intractable nausea/vomiting, as this may be due to her lap band change in position. Diet: ADA Activity: Ad anne Followup: Tarun Edward MD [ACTIVE - CAN ADMIT] - Ricardo Verma MD [Primary Care Provider] - Time spent managing pt's care (in minutes): 45
== END 2021-04-14 16:27 | disposition home or self-care (01) | DRG 287 ==
LOC: ER 10:23 → ERHOLD 15:43 → 2ND 18:12 → OBSVTOIN 04-13 16:11
PROVIDERS: ADMIT Internal Medicine; ATTEND Hospitalist
PROC: 4A023N7 Measurement of Cardiac Sampling and Pressure, Left Heart, Percutaneous Approach (ICD-10-PCS; principal; 2021-04-14)
PROC: B2111ZZ Fluoroscopy of Multiple Coronary Arteries using Low Osmolar Contrast (ICD-10-PCS; 2021-04-14)
DX: I25.110 Atherosclerotic heart disease of native coronary artery with unstable angina pectoris (principal); N17.9 Acute kidney failure, unspecified; M06.9 Rheumatoid arthritis, unspecified; E78.5 Hyperlipidemia, unspecified; E11.40 Type 2 diabetes mellitus with diabetic neuropathy, unspecified; I10 Essential (primary) hypertension; R11.0 Nausea; Z79.82 Long term (current) use of aspirin; Z79.4 Long term (current) use of insulin; Z79.899 Other long term (current) drug therapy; Z91.041 Radiographic dye allergy status; Z79.02 Long term (current) use of antithrombotics/antiplatelets; Z96.653 Presence of artificial knee joint, bilateral; Z90.49 Acquired absence of other specified parts of digestive tract; Z95.5 Presence of coronary angioplasty implant and graft; Z20.822 Contact with and (suspected) exposure to COVID-19
CPT/HCPCS: 36415; 70450; 71045; 74176; 78452; 80048; 80061; 80076; 82947; 83735; 83880; 84484; 85025; 85610; 85730; 93005; 93017; 93454; 93971; 96374; 99285; A9500; C1893; G0378; J0583; J1200; J1644; J1650; J2250; J2270; J2785; J2930; J3010; J7040; U0003

== ENCOUNTER 2021-04-30 21:51 | Observation (INO) | payer BC, OTHER ==
--- OUTSIDE RECORDS SUMMARY | 2021-04-30 21:56 | XMS REPORT | Continuity of Care Document ---
:1960 Author Organization [facility] t Address [address] [place] [address] Care Team Providers Name Role Phone Pcp Primary Care Physician Unavailable ZENAIDA, Reggie Attending Clinician Unavailable Zenaida RYAN, Reggie Attending Clinician Doctor Unassigned, Name Attending Clinician Unavailable TOMAS Attending Clinician Unavailable Tyrone ANDRADE Attending Clinician Unavailable Mike RYAN, K.H. Attending Clinician Jason TOWNSEND Attending Clinician Unavailable iLna ANDINO, S Attending Clinician Akash ADAMS Attending Clinician Reggie ZELAYA Attending Clinician Unavailable Reggie ZELAYA Admitting Clinician Unavailable Payers Payer Name Policy Type Policy Number Effective Date Expiration Date S [employer]andee [employer] [place] - [id number] 2012 00:00:00 OUT OF STATE [facility] RACHEL [id number] 2018 00:00:00 PLUS Problems Condition Condition Condition Status Onset Resolution Last Treating Co mments Source Name Details Category Date Date Treatment Clinician Date Colitis Colitis Disease Active 2020-03 Univers 03-19 ity of 00:00: [place] [id number] Medical Branch At risk At risk Disease Active 2020-03 Univers for falls for falls 1-07 ity of 00:00: [place] 00 Medical Branch 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 1-07 ity of with with 00:00: [place] depressive depressive 00 Me dical features features Branch due to due to medical medical condition condition Late Late Disease Active 2020-03 Univers effects of effects of 1-07 it y of CVA CVA 00:00: [place] (cerebrova (cerebrova 00 Me dical scular scular Branch accident) accident) History of History of Disease Active 2020-03 U nivers stroke stroke 0-29 ity of 00:00: [place] 00 Medical Branch Generalize Generalize Disease Active U nivers d pain d pain 9-24 ity of 00:00: [place] [facility] Chest pain Chest pain Disease Active 2019-03 U nivers due to CAD due to CAD 2-31 it y of 00:00: [place] 00 Medical Branch Proliferat Proliferat Disease Active 2018-03 [...] ally from mellitus mellitus request for surgery [id number] Gastric Gastric Disease Active Univers band band 8-07 ity of slippage slippage 00:00: [place] 00 Medical Branch NSVT NSVT Disease Active Univers (nonsustai (nonsustai 3-09 it y of adán adán 00:00: [place] ventricula ventricula 00 Me dical r r Branch tachycardi tachycardi a) a) Total knee Total knee Disease Active U nivers replacemen replacemen 3-05 it y of t status t status 00:00: [place] 00 Medical Branch Diabetes Diabetes [facility] Colon Colon Disease Active 2016-03 [facility] cancer cancer 1-16 [place] of screening screening 00:[place] Labial Labial Disease Active 2016-03 Univers lesion lesion 1-16 ity of 00:00: [place] [facility] Long-term Long-term Disease Active Uni vers use of use of 5-11 ity of Plaquenil Plaquenil 00:[place] 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 5-11 ity of edema of edema of 00:00: [place] both eyes both eyes 00 Medi bharat Branch Senile Senile Disease Active Univers nuclear nuclear 5-11 ity of sclerosis, sclerosis, 00:[place] bilateral bilateral 00 Medi bharat Branch Dry eyes, Dry eyes, Disease Active Uni vers bilateral bilateral 5-11 ity of 00:00: [place] [facility] IDDM IDDM Disease Active Univers (insulin (insulin 06-11 ity of dependent dependent 00:[place] diabetes diabetes 00 Medica l mellitus) mellitus) Bran ch Generalize Generalize Disease Active Overview : Univers d d 11-07 Formattin ity of osteoarthr osteoarthr 00:00: g of this [place] osis of osis of 00 note Medical hand hand might be Branch different from the original. ICD10 Diagnosis Term Claim Processing Specialist Utility Diabetic Diabetic Disease Active Unive rs peripheral peripheral 11-06 it y of neuropathy neuropathy 00:[place] [facility] [place] Diabetes Diabetes Disease Active 2011-03 Overview: Un alex mellitus mellitus -02 Formattin ity of type 2, type 2, 00:00: g of this [place] uncontroll uncontroll 00 note Me dical ed, ed, might be Branch without without different complicati complicati from the ons ons original. ICD10 Diagnosis Term Claim Processing Specialist Utility Obesity Obesity Disease Active 2011-03 Overview: Univ ers 03-14 Formattin ity of 00:00: g of this 00 note Medical might be Branch different from the original. ICD10 Diagnosis Term Claim Processing Specialist Utility HLD HLD Disease Active 2011-03 Overview: Univer s (hyperlipi (hyperlipi 03-14 Formattin ity of demia) demia) 00:00: g of this 00 note Medical might be Branch different from the original. ICD10 Diagnosis Term Claim Processing Specialist Utility Elevated Elevated Disease Active 2011-03 Unive rs BP BP 1-02 ity of 00:00: [place] 00 Medical Branch Mild Mild Disease Active 2011-03 Univers vitamin D vitamin D 03-14 ity of deficiency deficiency [place] Raynaud's Raynaud's Disease Active Uni vers syndrome syndrome 5-18 ity of 00:00: [place] 00 Medical Branch Rheumatoid Rheumatoid Disease Active Overview : Univers arthritis arthritis 5-18 Formattin i ty of 00:00: g of this note Medical might be Branch different from the original. ICD10 Diagnosis Term Claim Processing Specialist Utility Chronic Chronic Disease Active Univers pain pain 5-18 ity of syndrome syndrome 00:00: [place] [facility] Allergies, Adverse Reactions, Alerts Allergy Allergy Status Severity Reaction(s) Onset Inactive Treating Comm ents Source Name Type Date Date Clinician SHELLFIS DRUG Active Anaphylaxis Uni vers H INGREDI 03-26 ity of DERIVED 00:00: 00 Medical Branch Shellfis Propensi Active Anaphylaxis U nivers h ty to 03-26 ity of Derived adverse 00:00: [place] reaction 00 Medical s Branch Iodinate Propensi Active Hives [facility] 03-13 [facility] - Contrast adverse 00:00: Medical Media reaction 00 Center s Iodine Propensi Active Rash Other [facility] to 07-21 reaction( [facility] - Iodide adverse 00:00: s): Medical Containi reaction 00 Itching Cente r ng s and Products swelling IODINE Drug Active Rash Univers AND Class 5-11 ity of IODIDE 00:00: [place] CONTAINI 00 Medical NG Branch PRODUCTS Family History Family Member Diagnosis Comments Start Date Stop Date Source Natural father Heart disease [facility] Natural mother Cancer [facility] Social History Social Habit Start Date Stop Date Quantity Comments Source Exposure to Not sure University of SARS-CoV-2 [place] Medical (event) Branch History SDOH [facility] - Alcohol Comment Medical C enter History SDPR [facility] - Alcohol Std Medical Cente r Drinks History SDPR [facility] - Alcohol Binge Medical [facility] Tobacco use and 2018-10-15 2018-10-[address] [facility] kes - exposure 00:00:00 00:00:00 [facility] Alcohol intake 2018-10-15 2018-10-[address] [facility] [facility] - 00:00:00 00:00:00 non-drinker of Medical Ce nter alcohol (finding) History SDOH 2018-10-15 2018-10-[address] [facility] - Alcohol Frequency 00:00:00 00:00:00 [facility] Center Sex [birth year] At [birth year] JENNA Metcalf kes - 00:00:00 00:00:00 [facility] Center Smoking Status Start Date Stop Date Source Never smoker [facility] Medical Branch Medications Ordered Filled Start Stop Current Ordering Indication Dosage Frequency Signature Comments Components Source Medication Medication Date Date Medication? Clinician (SIG) Name Name atorvastati Yes 40mg Take 1 Univ ers n 40 mg 1-20 tablet by ity of tablet 00:00: mouth at [place] bedtime. Medical Branch atorvastati Yes 40mg Take 1 Univ ers n 40 mg 1-20 tablet by ity of tablet 00:00: mouth at [place] bedtime. Medical Branch atorvastati Yes 40mg Take 1 Univ ers n 40 mg 1-20 tablet by ity of tablet 00:00: mouth at [place] bedtime. Medical Branch atorvastati Yes 40mg Take 1 Univ ers n 40 mg 1-20 tablet by ity of tablet 00:00: mouth at [place] bedtime. Medical Branch atorvastati Yes 40mg Take 1 Univ ers n 40 mg 1-20 tablet by ity of tablet 00:00: mouth at [place] bedtime. Medical Branch gabapentin 2021-0 Yes [id number] 600mg Take 1 Univers 600 mg 1-07 tablet by ity of tablet 00:00: mouth 2 (two) Medical times Branch daily. gabapentin 2021-0 Yes [id number] 600mg Take 1 Univers 600 mg 1-07 tablet by ity of tablet 00:00: mouth (two) Medical times Branch daily. gabapentin 2-0 Yes [id number] 600mg Take 1 Univers 600 mg 1-07 tablet by ity of tablet 00:00: mouth 2 (two) Medical times Branch daily. gabapentin 2022-0 Yes [id number] 600mg Take 1 Univers 600 mg 1-07 tablet by ity of tablet 00:00: mouth 2 (two) Medical times Branch daily. gabapentin 2022-0 Yes [id number] 600mg Take 1 Univers 600 mg 1-07 tablet by ity of tablet 00:00: mouth 2 (two) Medical times Branch daily. gabapentin 2022-0 Yes [id number] 600mg Take 1 Univers 600 mg 1-07 tablet by ity of tablet 00:00: mouth 2 [place] 00 (two) Medical times Branch daily. gabapentin 2021-0 Yes [id number] 600mg Take 1 Univers 600 mg 1-07 tablet by ity of tablet 00:00: mouth 2 [place] 00 (two) Medical times Branch daily. gabapentin 2-0 Yes [id number] 600mg Take 1 Univers 600 mg 1-07 tablet by ity of tablet 00:00: mouth 2 [place] 00 (two) Medical times Branch daily. ISOSORBIDE 2020-03 Yes [id number] 30mg TAKE 1 U nivers MONONITRATE 2-10 TABLET BY ity of 30 mg 24 hr 00:00: MOUTH [place] tablet 00 DAILY Medical Branch ISOSORBIDE 2020-03 Yes [id number] 30mg TAKE 1 U nivers MONONITRATE 2-10 TABLET BY ity of 30 mg 24 hr 00:00: MOUTH [place] tablet 00 DAILY Medical Branch ISOSORBIDE 2020-03 Yes [id number] 30mg TAKE 1 U nivers MONONITRATE 2-10 TABLET BY ity of 30 mg 24 hr 00:00: MOUTH [place] tablet 00 DAILY Medical Branch ISOSORBIDE 2020-03 Yes [id number] 30mg TAKE 1 U nivers MONONITRATE 2-10 TABLET BY ity of 30 mg 24 hr 00:00: MOUTH [place] tablet 00 DAILY Medical Branch ISOSORBIDE 2020-03 Yes [id number] 30mg TAKE 1 U nivers MONONITRATE 2-10 TABLET BY ity of 30 mg 24 hr 00:00: MOUTH [place] tablet 00 DAILY Medical Branch ISOSORBIDE 2020-03 Yes [id number] 30mg TAKE 1 U nivers MONONITRATE 2-10 TABLET BY ity of 30 mg 24 hr 00:00: MOUTH [place] tablet 00 DAILY Medical Branch ISOSORBIDE 2020-03 Yes [id number] 30mg TAKE 1 U nivers MONONITRATE 2-10 TABLET BY ity of 30 mg 24 hr 00:00: MOUTH [place] tablet 00 DAILY Medical Branch ISOSORBIDE 2020-03 Yes [id number] 30mg TAKE 1 U nivers MONONITRATE 2-10 TABLET BY ity of 30 mg 24 hr 00:00: MOUTH [place] tablet 00 DAILY Medical Branch insulin 2020- Yes [id number] INJECT 10 U nivers aspart 2-09 UNITS ity of U-100 00:00: SUBCUTANEO [place] (NOVOLOG 00 US BEFORE Medica l FLEXPEN EACH MEAL Branch U-100 AND INSULIN) SLIDING 100 unit/mL SCALE. MAX (3 mL) DAILY DOSE injection OF 40 UNITS insulin 2020-03 Yes [id number] INJECT 10 U nivers aspart 2-09 UNITS ity of U-100 00:[facility] [place] (NOVOLOG 00 US BEFORE Medica l FLEXPEN EACH MEAL Branch U-100 AND INSULIN) SLIDING 100 unit/mL SCALE. MAX (3 mL) DAILY DOSE injection OF 40 UNITS insulin 2020-03 Yes [id number] INJECT 10 U nivers aspart 2-09 UNITS ity of U-100 00:00[facility] [place] (NOVOLOG 00 US BEFORE Medica l FLEXPEN EACH MEAL Branch U-100 AND INSULIN) SLIDING 100 unit/mL SCALE. MAX (3 mL) DAILY DOSE injection OF 40 UNITS insulin 2020-03 Yes [id number] INJECT 10 U nivers aspart 2-09 UNITS ity of U-100 00:00: [facility] (NOVOLOG 00 US BEFORE Medica l FLEXPEN EACH MEAL Branch U-100 AND INSULIN) SLIDING 100 unit/mL SCALE. MAX (3 mL) DAILY DOSE injection OF 40 UNITS insulin 2020-03 Yes [id number] INJECT 10 U nivers aspart 2-09 UNITS ity of U-100 00:00: [facility] (NOVOLOG 00 US BEFORE Medica l FLEXPEN EACH MEAL Branch U-100 AND INSULIN) SLIDING 100 unit/mL SCALE. MAX (3 mL) DAILY DOSE injection OF 40 UNITS insulin 2020-03 Yes [id number] INJECT 10 U nivers aspart 2-09 UNITS ity of U-100 00:00: [facility] (NOVOLOG 00 US BEFORE Medica l FLEXPEN EACH MEAL Branch U-100 AND INSULIN) SLIDING 100 unit/mL SCALE. MAX (3 mL) DAILY DOSE injection OF 40 UNITS insulin 2020-03 Yes [id number] INJECT 10 U nivers aspart 2-09 UNITS ity of U[facility]100 00:[facility] [place] (NOVOLOG 00 US BEFORE Medica l FLEXPEN EACH MEAL Branch U-100 AND INSULIN) SLIDING 100 unit/mL SCALE. MAX (3 mL) DAILY DOSE injection OF 40 UNITS insulin 2020-03 Yes [id number] INJECT 10 U nivers aspart 2-09 UNITS ity of U-100 00:00[facility] US BEFORE Medica l FLEXPEN EACH MEAL Branch U-100 AND INSULIN) SLIDING 100 unit/mL SCALE. MAX (3 mL) DAILY DOSE injection OF 40 UNITS metoprolol 2020-03 Yes 12.5mg Take 0.5 U nivers tartrate 25 2-03 tablets by it y of mg tablet 00:00: mouth (two) Medical times Branch daily. metoprolol 2020-03 Yes 12.5mg Take 0.5 U nivers tartrate 25 2-03 tablets by it y of mg tablet 00:00: [place] (two) Medical times Branch daily. metoprolol 2020-03 Yes 12.5mg Take 0.5 U nivers tartrate 25 2-03 tablets by it y of mg tablet 00:00: mouth [place] (two) Medical times Branch daily. metoprolol 2020-03 Yes 12.5mg Take 0.5 U nivers tartrate 25 2-03 tablets by it y of mg tablet 00:00: mouth [place] (two) Medical times Branch daily. metoprolol 2020-03 Yes 12.5mg Take 0.5 U nivers tartrate 25 2-03 tablets by it y of mg tablet 00:00: mouth [place] (two) Medical times Branch daily. metoprolol 2020-03 Yes 12.5mg Take 0.5 U nivers tartrate 25 2-03 tablets by it y of mg tablet 00:00: mouth [place] (two) Medical times Branch daily. metoprolol 2020-03 Yes 12.5mg Take 0.5 U nivers tartrate 25 2-03 tablets by it y of mg tablet 00:00: mouth [place] (two) Medical times Branch daily. metoprolol 2020-03 Yes 12.5mg Take 0.5 U nivers tartrate 25 2-03 tablets by it y of mg tablet 00:00: mouth [place] (two) Medical times Branch daily. Dextran 2020-03 Yes 1[drp] Place 1 Unive rs 70-Hypromel 0-29 Drop in ity o f lose 13:25: both eyes [place] (ARTIFICIAL 33 as needed. Me dical TEARS) Dpet Branch methotrexat 2020-03 Yes 20mg Take 20 mg Univers e 5 mg 0-29 by mouth ity of tablet 13:25: weekly. [place] 33 Medical Branch Dextran 2020-03 Yes 1[drp] Place 1 Unive rs 70-Hypromel 0-29 Drop in ity o f lose 13:25: both eyes [place] (ARTIFICIAL 33 as needed. Me dical TEARS) [facility] methotrexat 2020-03 Yes 20mg Take 20 mg Univers e 5 mg 0-29 by mouth ity of tablet 13:25: weekly. [address] Dextran 2020-03 Yes 1[drp] Place 1 Unive rs 70-Hypromel 0-29 Drop in ity o f lose 13:25: both eyes [place] (ARTIFICIAL 33 as needed. Me dical TEARS) [facility] Yes 20mg Take 20 mg Univers e 5 mg 0-29 by mouth ity of tablet 13:25: weekly. [address] Dextran 2020-03 Yes 1[drp] Place 1 Unive rs 70-Hypromel 0-29 Drop in ity o f lose 13:25: both eyes [place] (ARTIFICIAL 33 as needed. Me dical TEARS) [facility] methotrexat 2020-03 Yes 20mg Take 20 mg Univers e 5 mg 0-29 by mouth ity of tablet 13:25: weekly. [address] Dextran 2020-03 Yes 1[drp] Place 1 Unive rs 70-Hypromel 0-29 Drop in ity o f lose 13:25: both eyes [place] (ARTIFICIAL 33 as needed. Me dical TEARS) [facility] methotrexat 2020-03 Yes 20mg Take 20 mg Univers e 5 mg 0-29 by mouth ity of tablet 13:25: weekly. [address] Dextran 2020-03 Yes 1[drp] Place 1 Unive rs 70-Hypromel 0-29 Drop in ity o f lose 13:25: both eyes [place] (ARTIFICIAL 33 as needed. Me dical TEARS) [facility] Yes 20mg Take 20 mg Univers e 5 mg 0-29 by mouth ity of tablet 13:25: weekly. [address] Dextran 2020-03 Yes 1[drp] Place 1 Unive rs 70-Hypromel 0-29 Drop in ity o f lose 13:25: both eyes [place] (ARTIFICIAL 33 as needed. Me dical TEARS) [facility] methotrexat 2020-03 Yes 20mg Take 20 mg Univers e 5 mg 0-29 by mouth ity of tablet 13:25: weekly. [place] 33 Medical Branch Dextran 2020-03 Yes 1[drp] Place 1 Unive rs 70-Hypromel 0-29 Drop in ity o f lose 13:25: both eyes [place] (ARTIFICIAL 33 as needed. Me dical TEARS) Dp Branch methotrexat 2020-03 Yes 20mg Take 20 mg Univers e 5 mg 0-29 by mouth ity of tablet 13:25: weekly. [place] 33 Medical Branch foLIC acid 2020-03 Yes 1mg Take 1 mg Un alex 1 mg tablet 0-29 by mouth ity of 13:15: daily. [place] 17 except on Medical date of Branch methotrexa te foLIC acid 2020-03 Yes 1mg Take 1 mg Un alex 1 mg tablet 0-29 by mouth ity of 13:15: daily. [place] 17 except on Medical date of Branch methotrexa te foLIC acid 2020-03 Yes 1mg Take 1 mg Un alex 1 mg tablet 0-29 by mouth ity of 13:15: daily. [place] 17 except on Medical date of Branch methotrexa te foLIC acid 2020-03 Yes 1mg Take 1 mg Un alex 1 mg tablet 0-29 by mouth ity of 13:15: daily. [place] 17 except on Medical date of Branch methotrexa te foLIC acid 2020-03 Yes 1mg Take 1 mg Un alex 1 mg tablet 0-29 by mouth ity of 13:15: daily. [place] 17 except on Medical date of Branch methotrexa te foLIC acid 2020-03 Yes 1mg Take 1 mg Un alex 1 mg tablet 0-29 by mouth ity of 13:15: daily. [place] 17 except on Medical date of Branch methotrexa te foLIC acid 2020-03 Yes 1mg Take 1 mg Un alex 1 mg tablet 0-29 by mouth ity of 13:15: daily. [place] 17 except on Medical date of Branch methotrexa te foLIC acid 2020-03 Yes 1mg Take 1 mg Un alex 1 mg tablet 0-29 by mouth ity of 13:15: daily. [place] [address] except on Medical date of Branch methotrexa te DULoxetine 2020-03 Yes [id number] 20mg Take 1 U nivers 20 mg 0-29 capsule by ity of capsule 00:00: mouth [place] 00 every Medical morning. Branch DULoxetine 2020-03 Yes [id number] 20mg Take 1 U nivers 20 mg 0-29 capsule by ity of capsule 00:00: mouth [place] 00 every Medical morning. Branch DULoxetine 2020-03 Yes [id number] 20mg Take 1 U nivers 20 mg 0-29 capsule by ity of capsule 00:00: mouth [place] 00 every Medical morning. Branch DULoxetine 2020-03 Yes [id number] 20mg Take 1 U nivers 20 mg 0-29 capsule by ity of capsule 00:00: mouth [place] 00 every Medical morning. Branch DULoxetine 2020-03 Yes [id number] 20mg Take 1 U nivers 20 mg 0-29 capsule by ity of capsule 00:00: mouth [place] 00 every Medical morning. Branch DULoxetine 2020-03 Yes [id number] 20mg Take 1 U nivers 20 mg 0-29 capsule by ity of capsule 00:00: mouth [place] 00 every Medical morning. Branch DULoxetine 2020-03 Yes [id number] 20mg Take 1 U nivers 20 mg 0-29 capsule by ity of capsule 00:00: mouth [place] 00 every Medical morning. Branch DULoxetine 2020-03 Yes [id number] 20mg Take 1 U nivers 20 mg 0-29 capsule by ity of capsule 00:00: mouth [place] 00 every Medical morning. Branch empaglifloz 2020-03 Yes [id number] 1{tbl} Take 1 Univers in-metformi 0-11 tablet by ity of n (SYNJARDY 00:00: mouth [place] XR) 00 daily. Medical 25-1,000 mg Branch TBph Insulin 2020-03 Yes [id number] Use as Univ ers [place], 0-11 directed 4 ity o f Disposable, 00:00: times [place] (PEN 00 daily. Medical NEEDLES) 31 E11.65 Branch gauge x 1/4" Ndle empaglifloz 2020-03 Yes [id number] 1{tbl} Take 1 Univers in-metformi 0-11 tablet by ity of n (SYNJARDY 00:00: mouth [place] XR) 00 daily. Medical 25-1,000 mg Branch TBph Insulin 2020-03 Yes [id number] Use as Univ ers [place], 0-11 directed 4 ity o f Disposable, 00:00: times [place] (PEN 00 daily. Medical NEEDLES) 31 E11.65 Branch gauge x 1/4" Ndle empaglifloz 2020-03 Yes [id number] 1{tbl} Take 1 Univers in-metformi 0-11 tablet by ity of n (SYNJARDY 00:00: mouth [place] XR) 00 daily. Medical 25-1,000 mg Branch TBph Insulin 2020-03 Yes [id number] Use as Univ ers [place], 0-11 directed 4 ity o f Disposable, 00:00: times [place] (PEN 00 daily. Medical NEEDLES) 31 E11.65 Branch gauge x 1/4" Ndle empaglifloz 2020-03 Yes [id number] 1{tbl} Take 1 Univers in-metformi 0-11 tablet by ity of n (SYNJARDY 00:00: mouth [place] XR) 00 daily. Medical 25-1,000 mg Branch TBph Insulin 2020-03 Yes [id number] Use as Univ ers [place], 0-11 directed 4 ity o f Disposable, 00:00: times [place] (PEN 00 daily. Medical NEEDLES) 31 E11.65 Branch gauge x 1/4" Ndle empaglifloz 2020-03 Yes [id number] 1{tbl} Take 1 Univers in-metformi 0-11 tablet by ity of n (SYNJARDY 00:00: mouth [place] XR) 00 daily. Medical 25-1,000 mg Branch TBph Insulin 2020-03 Yes [id number] Use as Univ ers [place], 0-11 directed 4 ity o f Disposable, 00:00: times [place] (PEN 00 daily. Medical NEEDLES) 31 E11.65 Branch gauge x 1/4" Ndle empaglifloz 2020-03 Yes [id number] 1{tbl} Take 1 Univers in-metformi 0-11 tablet by ity of n (SYNJARDY 00:00: mouth [place] XR) 00 daily. Medical 25-1,000 mg Branch TBph Insulin 2020-03 Yes [id number] Use as Univ ers [place], 0-11 directed 4 ity o f Disposable, 00:00: times [place] (PEN 00 daily. Medical NEEDLES) 31 E11.65 Branch gauge x 1/4" Ndle empaglifloz 2020-03 Yes [id number] 1{tbl} Take 1 Univers in-metformi 0-11 tablet by ity of n (SYNJARDY 00:00: mouth [place] XR) 00 daily. Medical 25-1,000 mg Branch TBph Insulin 2020-03 Yes [id number] Use as Univ ers [place], 0-11 directed 4 ity o f Disposable, 00:00: times [place] (PEN 00 daily. Medical NEEDLES) 31 E11.65 Branch gauge x 1/4" Ndle empaglifloz 2020-03 Yes [id number] 1{tbl} Take 1 Univers in-metformi 0-11 tablet by ity of n (SYNJARDY 00:00: mouth [place] XR) 00 daily. Medical 25-1,000 mg Branch TBph Insulin 2020-03 Yes [id number] Use as Univ ers [place], 0-11 directed 4 ity o f Disposable, [...] EVERY 6 Medical HOURS Branch NEEDED HYDROcodone 1 Yes TAKE 1 Univ ers -acetaminop 0-06 TABLET BY ity of hen 5-325 00:00: MOUTH [place] mg tablet 00 EVERY 6 Medical HOURS Branch NEEDED losartan 50 2020-0 Yes 50mg Take 50 mg Univers mg tablet - by mouth 2 ity of 17:16: (two) [...] 50mg Take 50 mg Univers mg tablet - by mouth 2 ity of 17:16: (two) [...] 50mg Take 50 mg Univers mg tablet - by mouth 2 ity of 17:16: (two) [place] 24 times Medical daily. Branch Blood-Gluco 2020-0 Yes [id number] Use as Univers se Sensor 8-04 directed ity of (DEXCOM G6 00:00: [place] SENSOR) 00 Medical Yolanda Branch Blood-Gluco 2020-0 Yes [id number] Use as Univers se 8-04 directed ity of Transmitter 00:00: [place] (DEXCOM G6 00 Medical TRANSMITTER Branch ) Yolanda Blood-Gluco 2020-0 Yes [id number] Use as Univers se 8-04 directed ity of Meter,Josué 00:00: [place] nuous 00 Medical (DEXCOM G6 Branch ARMY MANAGER) Misc Blood-Gluco 2020- Yes [id number] Use as Univers se Sensor 8-04 directed ity of (DEXCOM G6 00:00: [place] SENSOR) 00 Medical Yolanda Branch Blood-Gluco 202-0 Yes [id number] Use as Univers se 8-04 directed ity of Transmitter 00:00: [place] (DEXCOM G6 00 Medical TRANSMITTER Branch ) Yolanda Blood-Gluco 202-0 Yes [id number] Use as Univers se 8-04 directed ity of Meter,Josué 00:00: [place] nuous 00 Medical (DEXCOM G6 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) Misc Blood-Gluco 202-0 Yes [id number] Use as Univers se Sensor 8-04 directed ity of (DEXCOM G6 00:00: [place] SENSOR) 00 Medical Yolanda Branch Blood-Gluco 202-0 Yes [id number] Use as Univers se 8-04 directed ity of Transmitter 00:00: [place] (DEXCOM G6 00 Medical TRANSMITTER Branch ) Yolanda Blood-Gluco 202-0 Yes [id number] Use as Univers se 8-04 directed ity of Meter,Josué 00:00: [place] nuous 00 Medical (DEXCOM G6 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 MANAGER) Misc Blood-Gluco 202-0 Yes [id number] Use as Univers se Sensor 8-04 directed ity of (DEXCOM G6 00:00: [place] SENSOR) 00 Medical Yolanda Branch Blood-Gluco 202-0 Yes [id number] Use as Univers se 8-04 directed ity of Transmitter 00:00: [place] (DEXCOM G6 00 Medical TRANSMITTER Branch ) Yolanda Blood-Gluco 202-0 Yes [id number] Use as Univers se 8-04 directed ity of Meter,Josué 00:00: [place] nuous 00 Medical (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 G6 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) Misc Blood-Gluco 202-0 Yes [id number] Use as Univers se Sensor 8-04 directed ity of (DEXCOM G6 00:00: [place] SENSOR) 00 Medical Yolanda Branch Blood-Gluco 2021-0 Yes [id number] Use as Univers se 8-04 directed ity of Transmitter 00:00: [place] (DEXCOM G6 00 Medical TRANSMITTER Branch ) Yolanda Blood-Gluco 202-0 Yes [id number] Use as Univers se 8-04 directed ity of Meter,Josué 00:00: [place] nuous 00 Medical (DEXCOM G6 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 ARMY MANAGER) Misc Blood-Gluco 2021-0 Yes [id number] Use as Univers se Sensor 8-04 directed ity of (DEXCOM G6 00:00: [place] SENSOR) 00 Medical Yolanda Branch Blood-Gluco 202-0 Yes [id number] Use as Univers se 8-04 directed ity of Transmitter 00:00: [place] (DEXCOM G6 00 Medical TRANSMITTER Branch ) Yolanda Blood-Gluco 2020-0 Yes [id number] Use as Univers se 8-04 directed ity of Meter,Josué 00:00: [place] nuous 00 Medical (DEXCOM G6 Branch ARMY MANAGER) Misc Blood-Gluco 2020-0 Yes [id number] Use as Univers se Sensor 8-04 directed ity of (DEXCOM G6 00:00: [place] SENSOR) 00 Medical Yolanda Branch Blood-Gluco 2020-0 Yes [id number] Use as Univers se 8-04 directed ity of Transmitter 00:00: [place] (DEXCOM G6 00 Medical TRANSMITTER Branch ) Yolanda Blood-Gluco 2020-0 Yes [id number] Use as Univers se 8-04 directed ity of Meter,Josué 00:00: [place] nuous 00 Medical (DEXCOM G6 Branch ARMY MANAGER) Misc Blood-Gluco 2020-0 Yes [id number] Use as Univers se Sensor 8-04 directed ity of (DEXCOM G6 00:00: [place] SENSOR) 00 Medical Yolanda Branch Blood-Gluco 2020-0 Yes [id number] Use as Univers se 8-04 directed ity of Transmitter 00:00: [place] (DEXCOM G6 00 Medical TRANSMITTER Branch ) Yolanda Blood-Gluco 2020-0 Yes [id number] Use as Univers se 8-04 directed ity of Meter,Josué 00:00: [place] nuous 00 Medical (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 Medical Branch atorvastati 2020-0 Yes 40mg Take 1 Univ ers n 40 mg 7-05 tablet by ity of tablet 00:00: mouth at [place] 00 bedtime. Medical Branch atorvastati 2020-0 Yes 40mg Take 1 Univ ers n 40 mg 7-05 tablet by ity of tablet 00:00: mouth at [place] 00 bedtime. Medical Branch atorvastati 2020-0 2022- No 40mg Take 1 Uni vers n 40 mg 7-05 -14 tablet by ity of tablet 00:00: 00:00 mouth at [place] 00 :00 bedtime. Medical Branch insulin 0 Yes [id number] 26U inject 26 U nivers degludec 6-21 Units ity of (TRESIBA 00:00[place] FLEXT[place] 00 skin Medical U-100) 100 daily. Max Bra nch unit/mL (3 daily dose mL) InPn of 40 units insulin 0 Yes [id number] 26U inject 26 U nivers degludec 6-21 Units ity of (TRESIBA 00:00[place] FLEXTOUCH 00 skin Medical U-100) 100 daily. Max Bra nch unit/mL (3 daily dose mL) InPn of 40 units insulin 0 Yes [id number] 26U inject 26 U nivers degludec 6-21 Units ity of (TRESIBA 00:00[place] FLEXT[place]CH 00 skin Medical U-100) 100 daily. Max Bra nch unit/mL (3 daily dose mL) InPn of 40 units insulin 0 Yes [id number] 26U inject 26 U nivers degludec 6-21 Units ity of (TRESIBA 00:00: [place] FLEXTOU[place] 00 skin Medical U-100) 100 daily. Max Bra nch unit/mL (3 daily dose mL) InPn of 40 units insulin 0 Yes [id number] 26U inject 26 U nivers degludec 6-21 Units ity of (TRESIBA 00:00: [place] FLEXT[place]CH 00 skin Medical U-100) 100 daily. Max Bra nch unit/mL (3 daily dose mL) InPn of 40 units insulin 0 Yes [id number] 26U inject 26 U nivers degludec 6-21 Units ity of (TRESIBA 00:00: [place] FLEXT[place] 00 skin Medical U-100) 100 daily. Max Bra nch unit/mL (3 daily dose mL) InPn of 40 units insulin 0 Yes [id number] 26U inject 26 U nivers degludec 6-21 Units ity of (TRESIBA 00:00: [place] FLEXT[place] 00 skin Medical U-100) 100 daily. Max Bra nch unit/mL (3 daily dose mL) InPn of 40 units insulin Yes [id number] 26U inject 26 U nivers degludec 6-21 Units ity of (TRESIBA 00:00: [place] FLEXT[place] 00 skin Medical U-100) 100 daily. Max Bra nch unit/mL (3 daily dose mL) InPn of 40 units nitroglycer Yes [id number] .4mg Place 1 Univers in 0.4 mg 1-01 tablet ity of sublingual 00:00: [place] the [place] tablet 00 tongue Medical every 5 Branch (five) minutes as needed for Chest pain. clopidogreL Yes [id number] 75mg Take 1 Univers (PLAVIX) 75 1-01 tablet by ity of mg tablet 00:00: mouth [place] 00 daily. Medical Branch aspirin 81 Yes [id number] 81mg Take 1 Univers mg chewable 1-01 tablet by ity of tablet 00:00: mouth [place] 00 daily. Medical Branch nitroglycer Yes [id number] .4mg Place 1 Univers in 0.4 mg 1-01 tablet ity of sublingual 00:00: under the [place] tablet 00 tongue Medical every 5 Branch (five) minutes as needed for Chest pain. clopidogreL Yes [id number] 75mg Take 1 Univers (PLAVIX) 75 1-01 tablet by ity of mg tablet 00:00: mouth [place] 00 daily. Medical Branch aspirin 81 0 Yes [id number] 81mg Take 1 Univers mg chewable 1-01 tablet by ity of tablet 00:00: mouth [place] 00 daily. Medical Branch nitroglycer Yes [id number] .4mg Place 1 Univers in 0.4 mg 1-01 tablet ity of sublingual 00:00: under the [place] tablet 00 tongue Medical every 5 Branch (five) minutes as needed for Chest pain. clopidogreL Yes [id number] 75mg Take 1 Univers (PLAVIX) 75 1-01 tablet by ity of mg tablet 00:00: mouth [place] 00 daily. Medical Branch aspirin 81 0 Yes [id number] 81mg Take 1 Univers mg chewable 1-01 tablet by ity of tablet 00:00: mouth [place] 00 daily. Medical Branch nitroglycer Yes [id number] .4mg Place 1 Univers in 0.4 mg 1-01 tablet ity of sublingual 00:00: under the [place] tablet 00 tongue Medical every 5 Branch (five) minutes as needed for Chest pain. clopidogreL 2020-0 Yes [id number] 75mg Take 1 Univers (PLAVIX) 75 1-01 tablet by ity of mg tablet 00:00: mouth [place] 00 daily. Medical Branch aspirin 81 0 Yes [id number] 81mg Take 1 Univers mg chewable 1-01 tablet by ity of tablet 00:00: mouth [place] 00 daily. Medical Branch nitroglycer [id number] 1 Univers in 0.4 mg 1-01 tablet ity of sublingual 00:00: under the [place] tablet 00 tongue Medical every 5 Branch (five) minutes as needed for Chest pain. clopidogreL 2020-0 Yes [id number] 75mg Take 1 Univers (PLAVIX) 75 1-01 tablet by ity of mg tablet 00:00: mouth [place] 00 daily. Medical Branch aspirin 81 2020-0 Yes [id number] 81mg Take 1 Univers mg chewable 1-01 tablet by ity of tablet 00:00: mouth [place] 00 daily. Medical Branch nitroglycer [id number] 1 Univers in 0.4 mg 1-01 tablet ity of sublingual 00:00: under the [place] tablet 00 tongue Medical every 5 Branch (five) minutes as needed for Chest pain. clopidogreL 2020-0 Yes [id number] 75mg Take 1 Univers (PLAVIX) 75 1-01 tablet by ity of mg tablet 00:00: mouth [place] 00 daily. Medical Branch aspirin 81 2020-0 Yes [id number] 81mg Take 1 Univers mg chewable 1-01 tablet by ity of tablet 00:00: mouth [place] 00 daily. Medical Branch nitroglycer 2020-[id number] 1 Univers in 0.4 mg 1-01 tablet ity of sublingual 00:00: under the [place] tablet 00 tongue Medical every 5 Branch (five) minutes as needed for Chest pain. clopidogreL 2020-0 Yes [id number] 75mg Take 1 Univers (PLAVIX) 75 1-01 tablet by ity of mg tablet 00:00: mouth [place] 00 daily. Medical Branch aspirin 81 2020-0 Yes [id number] 81mg Take 1 Univers mg chewable 1-01 tablet by ity of tablet 00:00: mouth daily. Medical Branch nitroglycer [id number] 1 Univers in 0.4 mg 1- tablet ity of sublingual 00:00: under the [place] tablet 00 tongue Medical every 5 Branch (five) minutes as needed for Chest pain. clopidogreL Yes [id number] 75mg Take 1 Univers (PLAVIX) 75 - tablet by ity of mg tablet 00:00: mouth [place] daily. Medical Branch aspirin 81 0 Yes [id number] 81mg Take 1 Univers mg chewable - tablet by ity of tablet 00:00: mouth [place] daily. [facility] Branch tofacitinib 2018-03 Yes [id number] 11mg Take 11 mg Univers (XELJANZ 2-18 by mouth ity of XR) 11 mg 00:00: daily. [address] Branch tofacitinib 2018-03 Yes [id number] 11mg Take 11 mg Univers (XELJANZ 2-18 by mouth ity of XR) 11 mg 00:00: daily. [address] tofacitinib 2018-03 Yes [id number] 11mg Take 11 mg Univers (XELJANZ 2-18 by mouth ity of XR) 11 mg 00:00: daily. [address] tofacitinib 2018-03 Yes [id number] 11mg Take 11 mg Univers (XELJANZ 2-18 by mouth ity of XR) 11 mg 00:00: daily. [address] Branch tofacitinib 2018-03 Yes [id number] 11mg Take 11 mg Univers (XELJANZ 2-18 by mouth ity of XR) 11 mg 00:00: daily. [address] tofacitinib 2018-03 Yes [id number] 11mg Take 11 mg Univers (XELJANZ 2-18 by mouth ity of XR) 11 mg 00:00: daily. [address] tofacitinib 2018-03 Yes [id number] 11mg Take 11 mg Univers (XELJANZ 2-18 by mouth ity of XR) 11 mg 00:00: daily. [address] tofacitinib 2018-03 Yes [id number] 11mg Take 11 mg Univers (XELJANZ 2-18 by mouth ity of XR) 11 mg 00:00: daily. [place] Tb24 00 [facility] insulin 2018-0 Yes 12U QD Inject 12 [facility] - (LANTUS) 00:04: subcutaneo Med ical 100 unit/mL 52 [facility] Center injection nightly Use as directed . insulin Yes Inject [facility] aspart 8-08 sub[facility]o [facility] - U-100 00:04: usly 3 Medical (NOVOLOG) 52 (three) Center 100 unit/mL times injection daily before meals. Immunizations Ordered Filled Immunization Date Status Comments [facility] e Immunization Name Name Influenza Virus 2021-01-08 Completed Universit y of Vaccine Quad IM, 00:00:00 [facility] [place] [facility] dical Preserv and ABX Branch Free 6 MO-64 YRS Influenza Virus 2021-01-08 Completed Universit y of Vaccine [facility] IM, 00:00:00 [facility] [place] [facility] dical Preserv and ABX Branch Free 6 MO-64 YRS Influenza Virus 2021-01-08 Completed Universit y of Vaccine Quad IM, 00:00:00 [facility] [place] [facility] dical Preserv and ABX Branch Free 6 MO-64 YRS Influenza Virus 2021-01-08 Completed Universit y of Vaccine Quad IM, 00:00:00 [place] Me dical Preserv and ABX Branch Free 6 MO-64 YRS Influenza Virus 2021-01-08 Completed Universit y of Vaccine Quad IM, 00:00:00 [place] Me dical Preserv and ABX Branch Free 6 MO-64 YRS Influenza Virus 2021-01-08 Completed Universit y of Vaccine Quad IM, 00:00:00 [facility] [place] [facility] dical Preserv and ABX Branch Free 6 MO-64 YRS Influenza Virus 2021-01-08 Completed Universit y of Vaccine Quad IM, 00:00:00 [place] Me dical Preserv and ABX Branch Free 6 MO-64 YRS Influenza Virus 2021-01-08 Completed Universit y of Vaccine Quad IM, 00:00:00 [facility] [place] [facility] dical Preserv and ABX Branch Free 6 MO-64 YRS Influenza Virus 2019-11-12 Completed Universit y of Vaccine 00:00:00 [facility] Influenza Virus 2019-11-12 Completed Universit y of Vaccine 00:00:00 [facility] Influenza Virus 2019-11-12 Completed Universit y of Vaccine 00:00:00 [facility] Influenza Virus 2019-11-12 Completed Universit y of Vaccine 00:00:00 [facility] Influenza Virus 2019-11-12 Completed Universit y of Vaccine 00:00:00 [facility] Influenza Virus 2019-11-12 Completed Universit y of Vaccine 00:00:00 [facility] Influenza Virus 2019-11-12 Completed Universit y of Vaccine 00:00:00 [facility] Influenza Virus 2019-11-12 Completed Universit y of Vaccine 00:00:00 [facility] Zoster Vaccine 2019-03-25 Completed University of Recombinant 00:00:00 [facility] Zoster Vaccine 2019-03-25 Completed University of Recombinant 00:00:00 [facility] Zoster Vaccine 2019-03-25 Completed University of Recombinant 00:00:00 [facility] Zoster Vaccine 2019-03-25 Completed University of Recombinant 00:00:00 [facility] Zoster Vaccine 2019-03-25 Completed University of Recombinant 00:00:00 [facility] Zoster Vaccine 2019-03-25 Completed University of Recombinant 00:00:00 [facility] Zoster Vaccine 2019-03-25 Completed University of Recombinant 00:00:00 [facility] Zoster Vaccine 2019-03-25 Completed University of Recombinant 00:00:00 [facility] Zoster Vaccine 2019-01-18 Completed University of Recombinant 00:00:00 [facility] Zoster Vaccine 2019-01-18 Completed University of Recombinant 00:00:00 [facility] Zoster Vaccine 2019-01-18 Completed University of Recombinant 00:00:00 [facility] Zoster Vaccine 2019-01-18 Completed University of Recombinant 00:00:00 [facility] Zoster Vaccine 2019-01-18 Completed University of Recombinant 00:00:00 [facility] Zoster Vaccine 2019-01-18 Completed University of Recombinant 00:00:00 [facility] Zoster Vaccine 2019-01-18 Completed University of Recombinant 00:00:00 [facility] Zoster Vaccine 2019-01-18 Completed University of Recombinant 00:00:00 [facility] Vital Signs Vital Name Observation Time Observation Value Comments Source Systolic blood 2021-03-23 16:13:00 139 mm[Hg] Univer sity of [facility] Diastolic blood 2021-03-23 16:13:00 70 mm[Hg] Unive rsity of [facility] Heart rate 2021-03-23 16:13:00 62 /min [facility] Body height 2021-03-23 16:13:00 152.4 cm [facility] Body weight 2021-03-23 16:13:00 98.431 kg [facility] BMI 2021-03-23 16:13:00 42.38 kg/m2 [facility] Procedures Procedure Date / Time Performed Performing Clinician Sourc e EXTERNAL PROVIDER 2021-04-26 06:01:00 Doctor Unassigned, No Univ ersity of [place] RECORDS Name [facility] REFERRAL- 2021-04-16 06:01:00 Doctor Unassigned, No Univer [facility]ity of [place] REQUEST/RESPONSE Name [facility] XR HIPS 2 VW RIGHT 2021-03-23 16:35:00 Any [facility] acute hospital Plan of Care Planned Activity Planned Date Details Comments Source Future Scheduled 2020-11-11 INFLUENZA VACCINE (#1[facility]00 [code = INFLUENZA Medical Ce nter VACCINE (#1)] Future Scheduled 2020-03-[address] [facility] - Test 00:00:00 (12+) [code = [facility] Center DEPRESSION SCREENING (12+)] Future Scheduled 2019-01-[address] [facility] - Test 00:00:00 measurement [facility] Center (procedure) [code = 89212339] Future Scheduled 2012 SHINGLES VACCINES ([address] [facility] - Test 00:00:00 of 2) [code = SHINGLES Medic al Center VACCINES (1 of 2)] Future Scheduled [address] [facility] - Test 00:00:00 (procedure) [code = Medical Center 82377011] Future Scheduled [address] [facility] - Test 00:00:00 [facility] cervix (procedure) [code = 963760632] Future Scheduled 1981 DTAP/TDAP/TD VACCINES CH I [...] 00:00:00 examination Medical Center (regime/therapy) [code = 983213692] Future Scheduled 1972 Urine screening for [facility] - Test 00:00:00 protein (procedure) Medical Center [code = 688804817] Future Scheduled [address] [facility] - Test 00:00:00 0-64 YRS (1 of 2 - Medical C enter PPSV23) [code = PNEUMOCOCCAL VACCINE 0-64 YRS (1 of 2 - PPSV23)] Future Scheduled [address] [facility] - Test 00:00:00 [facility] breast (procedure) [code = 475247565] Future Scheduled [address] [facility] - Test 00:00:00 malignant neoplasm of [facility] colon (procedure) [code = 992110989] Encounters Start End Encounter Admission Attending Care Care Encounter Source Date/Time Date/Time Type Type Clinicians Facility Department ID 2021-05-04 2021-05-04 Outpatient R ZENAIDA [facility] [id number] Univers 14:15:00 14:15:00 WONDIFUL [id number] ity o f [facility] 2021-05-04 2021-05-04 Outpatient R ZENAIDA [facility] [id number] Univers 14:15:00 14:15:00 WONDIFUL ity o f [facility] 2021-04-27 2021-04-27 Telephone [facility] [id number] Univers 00:00:00 00:00:00 Wondiful A HEALTH [id number] ity [facility] [id number] [place] as JONATHON?BLEA [id number] [address] MEDICAL OFFICE BUILDING 2021-04-26 2021-04-26 Orders Doctor ASHLEY [id number] Univers 00:00:00 00:00:00 Only Unassigned, PASCALE [id number] ity [facility] [id number] [place] as [phone] [address] 2021-04-20 2021-04-20 Outpatient Cristo MARIN [facility] [id number] Univers 14:30:00 14:30:00 CRISTY [facility] 2021-04-16 2021-04-16 Orders Doctor ASHLEY 1.2.840.114 [id number] Univers 00:00:00 00:00:00 Only Unassigned, PASCALE 350.1.13.10 ity [facility] 4.2.7.2.686 [place] as [id number] [address] 2021-04-14 2021-04-14 [facility]patient [facility] [id number] Univers 10:30:00 10:30:00 VIVIAN [id number] [facility] 2021-04-14 2021-04-14 Outpatient Crist[facility] [id number] Univers 10:30:00 10:30:00 VIVIAN [facility] 2021-03-30 2021-03-30 [facility] 1.2.840.114 [id number] Univers 00:00:00 00:00:00 Rachel PADRON [id number] ity [facility] 4[place]7.2.[place] PROF[place] [id number] [address] 2021-03-26 2021-03-26 [facility] 1.2.840.114 [id number] Univers 00:00:00 00:00:00 Rachel PADRON 350.1.13.10 ity [facility] 4[place]2.7.2.[place] [id number] [address] 2021-03-23 2021-03-23 Outpatient Cristo TOWNSEND [facility] [id number] Univers 10:22:10 23:59:00 ANY ity of [facility] 2021-03-23 2021-03-23 [facility] 1.2.840.114 [id number] Univers 10:22:10 23:59:00 Encounter Any Gomez HEALTH [id number] ity of [facility] 4.2.7.2.686 [place] as JONATHON?BLEA [phone] Tn dayanara QUINTERO 809 [facility] 2021-03-23 2021-03-23 Office [facility] [id number] Univers 10:30:00 10:45:00 Visit Any Gomez HEALTH [id number] it y [facility] 4.2.7.2.686 [place] as JONATHON?BLEA [phone] Tn dicpolina QUINTERO 198 [facility] 2021-03-23 2021-03-23 Telephone [facility] 1.2.840.114 [id number] Univers 00:00:00 00:00:00 Wondiful A HEALTH [id number] ity [facility] 4.2.7.2.686 [place] as JONATHON?BLEA [phone] Tn dayanara QUINTERO 044 [facility] 2020-03-26 2020-03-26 Emergency [facility] 1.2.840.114 [id number] 11:51:00 18:13:00 Yanityrone Padron 350.1.13.10 [place] 4.2.7.2.686 [place] [id number] 2020-03-26 2020-03-26 Tele[facility] 1.2.225.144 [id number] 00:00:00 00:00:00 Rachel Padron 350.1.13.10 [place] 4.2.7.2.686 Professio [id number] nal 9 [facility] 2020-03-16 2020-03-16 Office [facility] 1.2.840.114 [id number] 08:45:41 09:51:05 Visit Rachel Padron 350.1.13.10 [place] 4.2.7.2.686 Professio [id number] [facility] 059 [facility] 2020-03-16 2020-03-16 Orders Doctor ASHLEY 1.2.840.114 [id number] 00:00:00 00:00:00 Only Unassigned, PASCALE 350.1.13.10 [place] [facility] 4.2.7.2.686 [id number] Results Test Description Test Time Test Comments Results Result Comments Source POCT-GLUCOSE METER 2018-10-17 21:54:00 Test Item Value Reference Range Interpretation Comme nts POC-GLUCOSE METER ([facility]) (test 194 mg/dL 70-110 [address]) [facility] 7703 0 POCT-GLUCOSE [id number] 16:50:00 Test Item Value Reference Range Interpretation Comments POC-GLUCOSE METER 134 mg/dL 70-110 H TESTED AT [place] [address] ([facility]) (test code = JENIFER Cristo [facility] 1538) [id number] POCT-GLUCOSE [id number] 12:10:00 Test Item Value Reference Range Interpretation Comments POC-GLUCOSE METER 155 mg/dL 70-110 H TESTED AT [place] [address] ([facility]) (test code = JENIFER Lemons [facility] 1538) [address]162 POCT-GLUCOSE [id number] 05:34:00 Test Item Value Reference Range Interpretation Comments POC-GLUCOSE METER 249 mg/dL 70-110 H TESTED AT [place] [address] ([facility]) (test code = ALEXANDROAMALIA Lemons [facility] 1538) [address] POCT-GLUCOSE [id number] 00:09:00 Test Item Value Reference Range Interpretation Comments POC-GLUCOSE METER 236 mg/dL 70-110 H TESTED AT [place] [address] ([facility]) (test code = JENIFER Cristo [facility] 1538) 8[address] POCT-GLUCOSE [id number] 21:17:00 Test Item Value Reference Range Interpretation Comments POC-GLUCOSE METER 153 mg/dL 70-110 H TESTED AT [place] [address] ([facility]) (test code = JENIFER Cristo [facility] 1538) [address]329 POCT-GLUCOSE [id number] 18:23:00 Test Item Value Reference Range Interpretation Comments POC-GLUCOSE METER 148 mg/dL 70-110 H TESTED AT [place] [address] ([facility]) (test code = JENIFER Lemons [facility] 1538) [address] [place], UGI, WITHOUT [id number] 17:33:00Reason for exam:->Please evaluate with thin barium [...] stomach. Esophageal peristalsis was normal. Signed: Hudson Lodreport Verified Date/Time: 10/16/2018 17:33:25 Reading Location: [facility] C0X Ortho Consult Reading Room -GLUCOSE [id number] 05:59:00 Test Item Value Reference Range Interpretation Comments POC-GLUCOSE METER 192 mg/dL 70-110 H TESTED AT [place] [address] ([facility]) (test code = JENIFER Lemons [facility] 1538) [address]75 POCT-GLUCOSE [id number] 00:39:00 Test Item Value Reference Range Interpretation Comments POC-GLUCOSE METER 172 mg/dL 70-110 H TESTED AT [place] [address] ([facility]) (test code = JENIFER Lemons [facility] 1538) [address] POCT-GLUCOSE [id number] 22:13:00 Test Item Value Reference Range Interpretation Comments POC-GLUCOSE METER 187 mg/dL 70-110 H TESTED AT [place] [address] ([facility]) (test code = JENIFER Lemons [facility] 1538) [address] RAD, CHEST, 1 VIEW, NON [id number] 18:59:00Reason for exam:->preopShould this be performed at the bedside?->YesFINAL REPORT Chest, one view. HISTORY: preop COMPARISON: Radiograph from earlier today IMPRESSION: There is a slightly hazy, nodular opacity which measures 1.5 cm. A follow-up radiograph is recommended in three months to document resolution. The cardiac silhouette is normal insize and unchanged. No pleural effusion or pneumothorax. Pulmonary venous congestion. No acute bonyabnormality. Signed: Lottie Olson MDReport Verified Date/Time: 10/15/2018 18:59:09 Reading Location: [place] [address] [id number] Consult Reading Room BASI METABOLIC [id number] 18:46:00 Test Item Value Reference Range Interpretation [...] NOT APPLICABLE FOR DIALYSIS PATIEN TS. HEMOGLOBIN [id number] 18:36:00 Test Item Value Reference Range Interpretation Comments HEMOGLOBIN A1C (BEAKER) (test code = 9.7 % 4.3-6.1 H 368) POCT-GLUCOSE [id number] 18:14:00 Test Item Value Reference Range Interpretation Comments POC-GLUCOSE METER 207 mg/dL 70-110 H TESTED AT [facility] 6720 ([facility] (test code = JENIFER Lemons [place] 1538) [address] CBC W/PLT COUNT & AUTO [id number] 18:13:00 Test Item Value Reference Range Interpretation [...] % 0-1 PERCENT (BEAKER) (test code = 2801)
[2021-04-30 22:40] LABS: Absolute Lymphocytes (CBC) 1.4 K/uL (0.7-4.9); Hematocrit 36.5 % (36.0-45.0); Lymphocytes % 22.1 % (15.3-44.8); MPV 7.5 fL (7.6-11.3); RBC Red Blood Cell Count 4.33 M/uL (3.86-4.86)
[2021-04-30 22:41] LABS: Protime INR 0.91
[2021-04-30] MEDS ORDERED: MORPHINE 4 MG/ML SYR ONE (22:44)
[2021-04-30] MEDS ORDERED: ONDANSETRON 4 MG/2 ML VIAL ONE (22:44)
--- NOTE | 2021-04-30 22:54 | ER ---
Nurse's Notes [facility] Name: Tamy Martinez Age: 61 yrs Sex: Female : 1960 Arrival Date: 04/30/2021 Time: 21:55 Bed 4 Private MD: Diagnosis: Chest pain, unspecified Presentation: 04/30 22:02 Chief complaint: Patient states: C/CP that radiates to jaw and right arm. Coronavirus ll3 screen: Vaccine status: Patient reports being unvaccinated. At this time, the client does not indicate any symptoms associated with coronavirus-19. Ebola Screen: No symptoms or risks identified at this time. Initial Sepsis Screen: Does the patient meet any 2 criteria? No. Patient's initial sepsis screen is negative. Does the patient have a suspected source of infection? No. Patient's initial sepsis screen is negative. Risk Assessment: Do you want to hurt yourself or someone else? Patient reports no desire to harm self or others. Onset of symptoms was April 30, 2021 at 19:00. 22:02 Method Of Arrival: Ambulatory ll3 22:02 Acuity: HODAN 3 ll3 Triage Assessment: 22:05 General: Appears uncomfortable, Behavior is calm, cooperative, anxious. Pain: Complains ll3 of pain in mid-sternal area Pain radiates to submental area, right submandibular area and left submandibular area, right arm. Neuro: Level of Consciousness is awake, alert, obeys commands, Oriented to person, place, time, situation. Cardiovascular: Reports chest pain, nausea, shortness of breath, Denies vomiting, Patient's skin is warm and dry. Chest pain. Respiratory: Respiratory effort is even, unlabored, Respiratory pattern is regular, symmetrical. Derm: Skin is normal. Historical: - Allergies: 22:21 Iodinated Contrast Media - IV Dye; ll3 - Home Meds: 22:05 Xeljanz 11 mg Oral daily [Active]; Plavix 75 mg Oral tab once daily [Active]; Novolog ll3 Sub-Q sliding scale [Active]; aspirin 81 mg Oral TbEC once daily [Active]; losartan 25 mg Oral tab once daily [Active]; methotrexate sodium 2.5 mg Oral tab [Active]; isosorbide dinitrate 10 mg Oral tab [Active]; Tresiba U-100 Insulin 100 unit/mL subcutaneous soln [Active]; 22:24 Lantus 100 unit/mL Sub-Q soln 26 unit nightly [Active]; st1 - PMHx: 22:05 Diabetes - IDDM; Hypertension; Myocardial infarction; Rheumatoid Arthritis; ll3 22:24 Hypertension resolved after lap band; st1 - Immunization history:: Client reports having NOT received the Covid vaccine. - Social history:: Smoking status: Patient denies any tobacco usage or history of. - Family history:: not pertinent. Screenin:23 Abuse screen: Denies threats or abuse. Nutritional screening: No deficits noted. st1 Tuberculosis screening: No symptoms or risk factors identified. Fall Risk None identified. No fall in past 12 months (0 pts). No secondary diagnosis (0 pts). IV access (20 points). Ambulatory Aid- None/Bed Rest/Nurse Assist (0 pts). Gait- Normal/Bed Rest/Wheelchair (0 pts) Mental Status- Oriented to own ability (0 pts). Total Green Fall Scale indicates No Risk (0-24 pts). Assessment: 22:24 Also complains of shortness of breath. General: Appears distressed, uncomfortable, st1 obese, well groomed, Behavior is cooperative, anxious. Cardiovascular: No deficits noted. Respiratory: No deficits noted. Musculoskeletal: No deficits noted. Vital Signs: 22:02 BP 165 / 82; Pulse 75; Resp 16; Temp 96.6(TE); Pulse Ox 100% on R/A; Weight 98.88 kg ll3 (R); Height 5 ft. 1 in. (154.94 cm) (R); Pain 9/10; 22:25 BP 155 / 80; Pulse 76; Resp 21; Pulse Ox 100% ; Pain 9/10; st1 22:50 Pain 8/10; lr4 22:02 Body Mass Index 41.19 (98.88 kg, 154.94 cm) ll3 [place] Coma Score: 22:25 Eye Response: spontaneous(4). Verbal Response: oriented(5). Motor Response: obeys st1 commands(6). Total: 15. ED Course: 21:55 Patient arrived in ED. ja2 21:55 Telly Parada MD is Attending Physician. kdr 22:04 Triage completed. ll3 22:05 Arm band placed on right wrist. ll3 22:14 Bess Dinh, RN is Primary Nurse. st1 22:23 Patient has correct armband on for positive identification. Placed in gown. Bed in low st1 position. Call light in reach. Side rails up X2. associate financial advisor on. Pulse ox on. NIBP on. Warm blanket given. Verbal reassurance given. 22:23 No provider procedures requiring assistance completed. Patient maintains SpO2 st1 saturation greater than 95% on room air. 22:28 Inserted saline lock: 20 gauge in right antecubital area, using aseptic technique. lr4 22:47 XRAY Chest (1 view) In Process Unspecified. EDMS 22:48 COVID-19 SARS RT PCR (Document "Date of Onset" if Symptomatic) Sent. lr4 22:53 Jan Lopez MD is Hospitalizing Provider. kdr 23:50 Patient admitted, IV remains in place. st1 Administered Medications: 22:45 Drug: morphine 4 mg Route: IVP; Site: right antecubital; lr4 22:45 Drug: Zofran (Ondansetron) 4 mg Route: IVP; Site: right antecubital; lr4 Outcome: 22:54 Decision to Hospitalize by Provider. kdr 23:47 Admitted to Tele accompanied by tech, via stretcher, room 219, with chart, Report st1 called to MAY Tan 23:47 Condition: stable 23:47 Instructed on the need for admit. 23:59 Patient left the ED. st1 Signatures: Dispatcher [employer] EDMS Telly Parada MD MD kdr Anna Hale2 Ayah Segundo RN RN ll3 Bess Dinh, RN RN st1 Marli Neumann, RN RN lr4
--- NOTE | 2021-04-30 22:54 | EDPHYS ---
Physician Documentation [facility] Name: Tamy Martinez Age: 61 yrs Sex: Female : 1960 Arrival Date: 04/30/2021 Time: 21:55 Bed 4 Private MD: ED Physician Telly Parada HPI: 05/01 00:14 This 61 yrs old Female presents to ER via Ambulatory with complaints of Chest Pain, Jaw kdr Pain, Arm Pain. 00:14 The patient or guardian reports chest pain that is located primarily in the substernal kdr area. Onset: suddenly, just prior to arrival. The pain radiates to right neck, right jaw. Associated signs and symptoms: Pertinent positives: diaphoresis, nausea, shortness of breath, Pertinent negatives: cough, dizziness, headache, lower extremity pain, lower extremity swelling, syncope, vomiting. The chest pain is described as aching, dull, a pressure. Duration: The patient or guardian reports a single episode, that is still ongoing. Severity of pain: At its worst the pain was moderate severe just prior to arrival, in the emergency department the pain is actually worse. The patient has experienced similar episodes in the past, a few times. The patient has been recently seen by a physician: Patient was seen few weeks ago and had a cath. At that time to the extent she had a disease a did not warrant stenting. Pain she has today is similar but worse than what she experienced on her last admission. Historical: - Allergies: 04/30 22:21 Iodinated Contrast Media - IV Dye; ll3 - Home Meds: 22:05 Xeljanz 11 mg Oral daily [Active]; Plavix 75 mg Oral tab once daily [Active]; Novolog ll3 Sub-Q sliding scale [Active]; aspirin 81 mg Oral TbEC once daily [Active]; losartan 25 mg Oral tab once daily [Active]; methotrexate sodium 2.5 mg Oral tab [Active]; isosorbide dinitrate 10 mg Oral tab [Active]; Tresiba U-100 Insulin 100 unit/mL subcutaneous soln [Active]; 22:24 Lantus 100 unit/mL Sub-Q soln 26 unit nightly [Active]; st1 - PMHx: 22:05 Diabetes - IDDM; Hypertension; Myocardial infarction; Rheumatoid Arthritis; ll3 22:24 Hypertension resolved after lap band; st1 - Immunization history:: Client reports having NOT received the Covid vaccine. - Social history:: Smoking status: Patient denies any tobacco usage or history of. - Family history:: not pertinent. ROS: 05/01 00:14 Constitutional: Negative for fever, chills, and weight loss, Eyes: Negative for injury, kdr pain, redness, and discharge, ENT: Negative for injury, pain, and discharge, Neck: Negative for injury, pain, and swelling, Respiratory: Negative for shortness of breath, cough, wheezing, and pleuritic chest pain, Abdomen/GI: Negative for abdominal pain, nausea, vomiting, diarrhea, and constipation, Back: Negative for injury and pain, : Negative for injury, bleeding, discharge, and swelling, MS/Extremity: Negative for injury and deformity, Skin: Negative for injury, rash, and discoloration, Neuro: Negative for headache, weakness, numbness, tingling, and seizure activity. Psych: Negative for depression, anxiety, suicide ideation, homicidal ideation, and hallucinations, Allergy/Immunology: Negative for hives, rash, and allergies, Endocrine: Negative for neck swelling, polydipsia, polyuria, polyphagia, and marked weight changes, Hematologic/Lymphatic: Negative for swollen nodes, abnormal bleeding, and unusual bruising. Cardiovascular: Positive for chest pain, Negative for edema, orthopnea, palpitations, paroxysmal nocturnal dyspnea. Exam: 00:14 Constitutional: This is a well developed, well nourished patient who is awake, alert, kdr and in mild distress. Head/Face: Normocephalic, atraumatic. Eyes: Pupils equal round and reactive to light, extra-ocular motions intact. Lids and lashes normal. Conjunctiva and sclera are non-icteric and not injected. Cornea within normal limits. Periorbital areas with no swelling, redness, or edema. Neck: Trachea midline, no thyromegaly or masses palpated, and no cervical lymphadenopathy. Supple, full range of motion without nuchal rigidity, or vertebral point tenderness. No Meningismus. Chest/axilla: Normal chest wall appearance and motion. Nontender with no deformity. No lesions are appreciated. Cardiovascular: Regular rate and rhythm with a normal S1 and S2. No gallops, murmurs, or rubs. Normal PMI, no JVD. No pulse deficits. Respiratory: Lungs have equal breath sounds bilaterally, clear to auscultation and percussion. No rales, rhonchi or wheezes noted. No increased work of breathing, no retractions or nasal flaring. Abdomen/GI: Soft, non-tender, with normal bowel sounds. No distension or tympany. No guarding or rebound. No evidence of tenderness throughout. Back: No spinal tenderness. No costovertebral tenderness. Full range of motion. Skin: Warm, dry with normal turgor. Normal color with no rashes, no lesions, and no evidence of cellulitis. MS/ Extremity: Pulses equal, no cyanosis. Neurovascular intact. Full, normal range of motion. Neuro: Awake and alert, GCS 15, oriented to person, place, time, and situation. Cranial nerves II-XII grossly intact. Motor strength 5/5 in all extremities. Sensory grossly intact. Cerebellar exam normal. Normal gait. Psych: Awake, alert, with orientation to person, place and time. Behavior, mood, and affect are within normal limits. Vital Signs: 04/30 22:02 BP 165 / 82; Pulse 75; Resp 16; Temp 96.6(TE); Pulse Ox 100% on R/A; Weight 98.88 kg ll3 (R); Height 5 ft. 1 in. (154.94 cm) (R); Pain 9/10; 22:25 BP 155 / 80; Pulse 76; Resp 21; Pulse Ox 100% ; Pain 9/10; st1 22:50 Pain 8/10; lr4 22:02 Body Mass Index 41.19 (98.88 kg, 154.94 cm) ll3 [place] Coma Score: 22:25 Eye Response: spontaneous(4). Verbal Response: oriented(5). Motor Response: obeys st1 commands(6). Total: 15. MDM: 22:54 Patient medically screened. kdr 05/01 00:14 Data reviewed: vital signs, nurses notes, lab test result(s), EKG, radiologic studies. kdr Counseling: I had a detailed discussion with the patient and/or guardian regarding: the historical points, exam findings, and any diagnostic results supporting the discharge/admit diagnosis, lab results, radiology results, the need for further work-up and treatment in the hospital. 04/30 22:25 Order name: Basic Metabolic Panel kdr 04/30 22:25 Order name: CBC with Diff; Complete Time: 22:48 kdr 04/30 22:25 Order name: LFT's kdr 04/30 22:25 Order name: Magnesium kdr 04/30 22:25 Order name: NT PRO-BNP kdr 04/30 22:25 Order name: PT-INR; Complete Time: 22:48 kdr 04/30 22:25 Order name: Troponin HS kdr 04/30 22:25 Order name: XRAY Chest (1 view) [facility] 04/30 22:25 Order name: EKG; Complete Time: 22:26 kdr 04/30 22:25 Order name: Cardiac monitoring; Complete Time: 22:26 kdr 04/30 22:35 Order name: COVID-19 SARS RT PCR (Document "Date of Onset" if Symptomatic) la1 04/30 22:25 Order name: EKG - Nurse/Tech; Complete Time: 22:26 kdr 04/30 22:25 Order name: IV Saline Lock; Complete Time: 22:32 [facility] 04/30 22:25 Order name: Labs collected and sent; Complete Time: 22:32 kdr 04/30 22:25 Order name: O2 Per Protocol; Complete Time: 22:26 kdr 04/30 22:25 Order name: O2 Sat Monitoring; Complete Time: 22:26 kdr Administered Medications: 04/30 22:45 Drug: morphine 4 mg Route: IVP; Site: right antecubital; lr4 22:45 Drug: Zofran (Ondansetron) 4 mg Route: IVP; Site: right antecubital; lr4 Disposition Summary: 04/30/21 22:54 Hospitalization Ordered Hospitalization Status: Observation kdr Provider: Jan Lopez kdr Location: Telemetry/MedSurg (observation) kdr Condition: Fair kdr Problem: an acute exacerbation kdr Symptoms: have improved kdr Bed/Room Type: Standard kdr Room Assignment: 219(04/30/21 23:28) cg Diagnosis - Chest pain, unspecified kdr Forms: - Medication Reconciliation Form kdr - SBAR form kdr Signatures: Dispatcher [employer] EDMS Telly Parada MD MD kdr Paolo Goodson, GASOLINE SERVICE ATTENDANT-C GASOLINE SERVICE ATTENDANT-Cla1 Perla Grullon RN RN cg Ayah Segundo RN RN ll3 Bess Dinh RN RN st1 Marli Neumann RN RN lr4 Corrections: (The following items were deleted from the chart) 22:33 22:26 Chest Single View+RAD.RAD.BRZ ordered. EDMS EDMS 22: 22:38 Chest Single View+RAD.RAD.BRZ ordered. EDMS EDMS 23: 22:54 kdr cg
[2021-04-30 23:01] LABS: ALT/SGPT 21 U/L (12-78); AST/SGOT 13 U/L (15-37); Albumin 3.3 g/dL (3.4-5.0); Alkaline Phosphatase 136 U/L (45-117); BUN Blood Urea Nitrogen 17 mg/dL (7-18); Bicarbonate 29 mmol/L (21-32); Bilirubin Direct < 0.1 mg/dL (0-0.2); Bilirubin Total 0.3 mg/dL (0.2-1.0); Glucose Level 261 mg/dL (74-106); Magnesium 1.8 mg/dL (1.8-2.4); NT PRO-BNP 572 pg/mL (<125); Potassium 4.5 mmol/L (3.5-5.1); Protein, Total 7.6 g/dL (6.4-8.2); Sodium Level 139 mmol/L (136-145)
--- NOTE | 2021-04-30 23:09 | P.HP ---
Certification for Inpatient Patient admitted to: Observation With expected LOS: <2 Midnights Patient will require the following post-hospital care: None Practitioner: I am a practitioner with admitting privileges, knowledge of patient current condition, hospital course, and medical plan of care. Services: Services provided to patient in accordance with Admission requirements found in Title 42 Section 412.3 of the Code of Federal Regulations Patient History Date of Service: 04/30/21 Reason for admission: Unstable angina History of Present Illness: 61-year-old female with history of CAD, diabetes mellitus type 2, RA presented to the emergency department for chest pain. Patient reports that she was sitting in the backseat of a car when she developed sudden severe chest pain described as pressure-like radiating to her jaw down both arms with associated diaphoresis. Pain episode lasted for approximately 5 to 10 minutes. Patient reports that she does have some exertional angina routinely but this episode is very atypical for her. Patient had a heart catheterization on 04/14/2021 which was remarkable for a normal left main, circumflex and LAD small with diffuse plaquing but no focal stenosis, 30 to 40% proximal RCA, 70% very distal RCA right at the bifurcation of the posterior lateral and PDA. Recommendations from cardiology were to continue medical therapy with aspirin, statin, beta-renaldo as well as isosorbide. Patient's dose of isosorbide mononitrate was increased from 30 to 60 mg daily at discharge from hospital. Patient was evaluated here in the emergency department her labs were significant for glucose 261 BNP 572 troponin high-sensitivity 30.5. Patient with unstable angina ED provider wishes to admit for further evaluation and management. Allergies Iodinated Contrast Media [Iodinated Contrast Media - Oral and] Allergy (Severe, Verified 03/13/17 21:21) Unknown iodine [Iodine] Allergy (Severe, Verified 04/11/16 14:05) Itching and swelling Home Medications: Gabapentin [Neurontin] 600 mg PO BID 02/25/20 Losartan Potassium [Cozaar] 50 mg PO DAILY 02/25/20 Aspirin [Aspirin EC 81 MG] 162 mg PO DAILY #60 tablet. 02/28/20 Atorvastatin Calcium [Lipitor] 40 mg PO BEDTIME #30 tab 02/28/20 Clopidogrel Bisulfate [Plavix*] 75 mg PO DAILY #30 tablet 02/28/20 Methotrexate [Methotrexate*] 4 tab PO Q7D 03/05/20 Metoprolol Tartrate [Lopressor*] 12.5 mg PO BID 04/13/20 Empagliflozin/Metformin HCl [Synjardy Xr 25-1,000 mg Tablet] 1 tab PO DAILY 04/13/21 Folic Acid 1 mg PO DAILY 04/13/21 Insulin Aspart 8 units SQ BREAKFAST 04/13/21 Insulin Degludec [Tresiba] 26 unit SQ BREAKFAST 04/13/21 Isosorbide Mononitrate [Isosorbide Mononitrate ER] 60 mg PO DAILY 30 Days #30 tab.er.24h 04/14/21 - Past Medical/Surgical History Diabetic: Yes -: Diabetes mellitus type 2 -: HTN -: Rheuamtoid Arthritis -: Degenerative disk and joint disease of the spine -: CAD -: Lap band 2010 -: x2 -: Left knee replacement -: Cholecystectomy -: right knee replacement Psychosocial/ Personal History: She is , has 2 children. She does not work. - Family History Father -: Hypertension Notes: brother had IN at 30; Mother -: Cancer Notes: esophageal - Social History Smoking Status: Never smoker Alcohol use: No CD- Drugs: No Caffeine use: No Place of Residence: Home Review of Systems 10-point ROS is otherwise unremarkable Respiratory: SOB with Excertion Cardiovascular: Chest Pain, As per HPI Physical Examination - Physical Exam General: Alert, In no apparent distress, Oriented x3 HEENT: Atraumatic, PERRLA, Mucous membr. moist/pink, EOMI, Sclerae nonicteric Neck: Supple, 2+ carotid pulse no bruit, No LAD, Without JVD or thyroid abnormality Respiratory: Clear to auscultation bilaterally, Normal air movement Cardiovascular: Regular rate/rhythm, Normal S1 S2 Gastrointestinal: Normal bowel sounds, No tenderness Musculoskeletal: No tenderness Integumentary: No rashes Neurological: Normal gait, Normal speech, Normal strength at 5/5 x4 extr, Normal tone, Normal affect Lymphatics: No axilla or inguinal lymphadenopathy - Studies Laboratory Data (last 24 hrs) 04/30/21 22:28: PT 10.4, INR 0.91 04/30/21 22:28: WBC 6.40, Hgb 12.2, Hct 36.5, Plt Count 222 04/30/21 22:28: Sodium 139, Potassium 4.5, BUN 17, Creatinine 1.12, Glucose 261 H, Magnesium 1.8, Total Bilirubin 0.3, AST 13 L, ALT 21, Alkaline Phosphatase 136 H Assessment and Plan - Plan Assessment: Unstable anginahistory of CAD Diabetes mellitus type 2insulin-dependent with hyperglycemia Rheumatoid arthritis Plan: Unstable anginahistory of CAD: Initial troponin negative, EKG without acute changes. Cardiology consulted. Heart catheterization 04/14/2021 with moderate to severe coronary artery disease, distal RCA too small for intervention. Recommendation at that time was to continue medical therapy with aspirin, statin, beta-renaldo in addition to isosorbide. Patient had increase in dose of isosorbide from 30 to 60 mg daily. Appreciate further input from cardiology. Diabetes mellitus type 2insulin-dependent with hyperglycemia: ACH is Accu-Chek, sliding scale insulin. Modified dose of long-acting insulin provided. Rheumatoid arthritis: Obtain and continue home meds DVT PPX: Lovenox Code status: Full Discharge Plan: Home Plan to discharge in: 24 Hours - Advance Directives Does patient have a Living Will: No Does patient have a Durable POA for Healthcare: No - Code Status/Comfort Care Code Status Assessed: Yes (Full) Critical Care: No Time Spent Managing Pts Care (In Minutes): 55
[2021-05-01] MEDS ORDERED: ONDANSETRON 4 MG/2 ML VIAL IV PRN (00:05)
[2021-05-01 00:17] VITALS: O2SAT 100
[2021-05-01 00:46] VITALS: BMI 39.2
[2021-05-01] MEDS: MORPHINE 2 MG/ML SYR IV PRN ×3 (03:09→15:31)
[2021-05-01 03:38] LABS: Absolute Lymphocytes (CBC) 1.2 K/uL (0.7-4.9); Hematocrit 34.3 % (36.0-45.0); Lymphocytes % 21.7 % (15.3-44.8); MPV 7.6 fL (7.6-11.3); RBC Red Blood Cell Count 4.07 M/uL (3.86-4.86)
[2021-05-01 03:59] LABS: Albumin 2.8 g/dL (3.4-5.0); Bilirubin Total 0.3 mg/dL (0.2-1.0); Protein, Total 6.7 g/dL (6.4-8.2); Troponin High Sensitivity 25.9 pg/mL (<58.9)
--- NOTE | 2021-05-01 06:24 | P.PN ---
Date of Service: 05/01/21 Subjective no more severe chest pain continues with chronic chest discomfort reports b/l legs feel swollen and with pain, no rash, no redness "don't look swollen but feel like they are" ROS 10 point ROS reviewed as noted above, otherwise negative Physical Exam Gen: NAD, AAOX3 HEENT: normal conjunctiva, sclera anicteric CV: regular rate /rhythm, trace b/l pedal edema Pulm: nonlabored respirations on room air Abd: soft, NTND Problem List Unstable anginahistory of CAD Diabetes mellitus type 2insulin-dependent with hyperglycemia Rheumatoid arthritis trop negative x2 cardiology consulted pt s/p heart cath on 04/14/21, mod-severe CAD - distal RCA too small for intervention recommended ranexa at that time, however patient stated she would discuss with her optical effects camera operator, similar recommendation as 2020 patient open to starting ranexa on discharge this time also reported some dyspnea at home will check CT chest, check abd/pelvis to f/u on gastric band, check aorto-iliacs DVT PPX: Lovenox Code status: Full Dispo: home within 24hrs
[2021-05-01] MEDS: METOPROLOL TAR 25 MG TAB PO SCH ×2 (06:28→18:51)
[2021-05-01] MEDS: INSULIN -REGULAR HUMAN 50 UNIT/0.5 ML ML SQ SCH ×4 (08:45→20:26)
[2021-05-01] MEDS: GABAPENTIN 300 MG CAP PO SCH ×2 (08:45→20:12)
[2021-05-01] MEDS ORDERED: ASPIRIN EC 81 MG TAB PO SCH (09:00)
[2021-05-01] MEDS ORDERED: INSULIN GLARGINE 100 UNIT/ML SQ SCH (09:00)
[2021-05-01] MEDS ORDERED: CLOPIDOGREL 75 MG TABLET PO SCH (09:00)
[2021-05-01] MEDS ORDERED: ISOSORBIDE MONO SR 60 MG TAB PO SCH (09:00)
[2021-05-01] MEDS ORDERED: ENOXAPARIN 40 MG/0.4 ML SQ SCH (09:00)
[2021-05-01] MEDS ORDERED: LOSARTAN POTASSIUM 50 MG TABLET PO SCH (09:00)
[2021-05-01] MEDS ORDERED: DIPHENHYDRAMINE 25 MG TAB/CAP PO ONE (09:21)
[2021-05-01] MEDS ORDERED: METHYLPREDNISOLONE 40 MG INJ IV ONE (09:21)
[2021-05-01] MEDS ORDERED: DIPHENHYDRAMINE 50 MG/ML VIAL IV ONE (10:13)
--- NOTE | 2021-05-01 12:01 | RAD REPORT ---
EXAM DESCRIPTION: CT - Abdomen Pelvis W Contrast - 05/01/2021 11:41 am CLINICAL HISTORY: eval stomach, h/o lap band COMPARISON: Abdomen Pelvis W Contrast dated 08/10/2019 TECHNIQUE: Biphasic, helical CT imaging of the abdomen and pelvis was performed following 100 ml non -ionic IV contrast. No oral contrast administered. All CT scans are performed using dose optimization technique as appropriate and may include automated exposure control or mA/KV adjustment according to patient size. FINDINGS: No suspicious findings in the lung bases. The liver, spleen, and pancreas show no suspicious findings. Cholecystectomy clips are present. No ab normal biliary tree dilatation. Splenic granulomatous calcifications are present. Symmetric renal function is seen with no hydronephrosis or suspicious renal mass. No pyelonephritis o r acute parenchymal process. No bladder abnormalities. No adrenal abnormalities. Areas of cortical th inning in the left kidney are noted possibly from prior infection or ischemic insult. No active renal parenchymal process seen. Uterus and atrophic ovaries show no suspicious findings. No dilated bowel loops or bowel wall thickening. No appendicitis findings. Lap band is in place appea ring well positioned. No free air, free fluid or inflammatory stranding. No hernia, mass or bulky ly mphadenopathy. No suspicious bony findings. IMPRESSION: Contrast enhanced CT abdomen and pelvis showing no acute or emergent finding.
--- NOTE | 2021-05-01 12:04 | RAD REPORT ---
EXAM DESCRIPTION: CT - Chest For Pe Angio - 05/01/2021 11:41 am CLINICAL HISTORY: r/o PE, SOB, chest pain COMPARISON: Thorax Wo Con dated 03/04/2020 TECHNIQUE: Dynamically enhanced 2 mm thick images of the chest were obtained during administration o f approximately 150mL Isovue 370 IV contrast. Coronal and oblique MIP reconstruction images were gene rated and reviewed. Exam utilizes a protocol to evaluate the pulmonary arterial tree. All CT scans are performed using dose optimization technique as appropriate and may include automated exposure control or mA/KV adjustment according to patient size. FINDINGS: No pulmonary emboli are identified. The aorta as imaged shows no acute or suspicious finding. No pericardial thickening or effusion. No infiltrate or suspicious mass in the lung parenchyma. A 10 millimeter rounded mass with central ca lcification present anterior left upper lobe. This is a granuloma with no change from prior imaging. No pleural effusion or pleural thickening. No mediastinal or hilar suspicious masses. No chest wall masses or abnormal axillary lymphadenopathy. IMPRESSION: No pulmonary emboli identified. No other significant or suspicious findings.
--- NOTE | 2021-05-01 18:17 | EKG ---
Test Date: 2021-04-30 Test Time: 22:20:41 Mold Technician: ANAM MEASUREMENT RESULTS: Intervals: Rate: 75 NE: 138 QRSD: 76 QT: 392 QTc: 437 [place]: P: 51 NE: 138 QRS: -4 T: 51 INTERPRETIVE STATEMENTS: Normal sinus rhythm Normal ECG Compared to ECG 04/12/2021 10:49:38 Sinus bradycardia no longer present Myocardial infarct finding no longer present Electronically Signed On 05-01-21 18:17:13 POKER PROP PLAYER by Tarun Edward
[2021-05-01 19:25] LABS: Urine Appearance CLEAR (Clear); Urine Bilirubin NEGATIVE (Negative); Urine Blood NEGATIVE (Negative); Urine Color YELLOW (Yellow); Urine Glucose 1+ (Negative); Urine Protein NEGATIVE (Negative); Urine Specific Gravity >=1.030 (1.005-1.030); Urine Urobilinogen 0.2 mg/dL (0.2-1.0); Urine pH 5.5 (5.0-7.0)
[2021-05-01] MEDS ORDERED: HYDROCODONE/APAP 5/325 MG TAB PO ONE (19:50)
--- NOTE | 2021-05-01 19:55 | P.DS ---
Admission Date: 05/01/21 Discharge Date: 05/01/21 Disposition: ROUTINE DISCHARGE Discharge Condition: GOOD Reason for Admission: Unstable angina Consultations: CardiologyDr. Edward Procedures: CT abdomen pelvis FINDINGS: No suspicious findings in the lung bases. The liver, spleen, and pancreas show no suspicious findings. Cholecystectomy clips are present. No abnormal biliary tree dilatation. Splenic granulomatous calcifications are present. Symmetric renal function is seen with no hydronephrosis or suspicious renal mass. No pyelonephritis or acute parenchymal process. No bladder abnormalities. No adrenal abnormalities. Areas of cortical thinning in the left kidney are noted possibly from prior infection or ischemic insult. No active renal parenchymal process seen. Uterus and atrophic ovaries show no suspicious findings. No dilated bowel loops or bowel wall thickening. No appendicitis findings. Lap band is in place appearing well positioned. No free air, free fluid or inflammatory stranding. No hernia, mass or bulky lymphadenopathy. No suspicious bony findings. IMPRESSION: Contrast enhanced CT abdomen and pelvis showing no acute or emergent finding. CTA chest FINDINGS: No pulmonary emboli are identified. The aorta as imaged shows no acute or suspicious finding. No pericardial thickening or effusion. No infiltrate or suspicious mass in the lung parenchyma. A 10 millimeter rounded mass with central calcification present anterior left upper lobe. This is a granuloma with no change from prior imaging. No pleural effusion or pleural thickening. No mediastinal or hilar suspicious masses. No chest wall masses or abnormal axillary lymphadenopathy. IMPRESSION: No pulmonary emboli identified. No other significant or suspicious findings. Problem List Unstable anginahistory of CAD Diabetes mellitus type 2insulin-dependent with hyperglycemia Rheumatoid arthritis Brief History of Present Illness: 61-year-old female with history of CAD, diabetes mellitus type 2, RA presented to the emergency department for chest pain. Patient reports that she was sitting in the backseat of a car when she developed sudden severe chest pain described as pressure-like radiating to her jaw down both arms with associated diaphoresis. Pain episode lasted for approximately 5 to 10 minutes. Patient reports that she does have some exertional angina routinely but this episode is very atypical for her. Patient had a heart catheterization on 04/14/2021 which was remarkable for a normal left main, circumflex and LAD small with diffuse plaquing but no focal stenosis, 30 to 40% proximal RCA, 70% very distal RCA right at the bifurcation of the posterior lateral and PDA. Recommendations from cardiology were to continue medical therapy with aspirin, statin, beta-renaldo as well as isosorbide. Patient's dose of isosorbide mononitrate was increased from 30 to 60 mg daily at discharge from hospital. Patient was evaluated here in the emergency department her labs were significant for glucose 261 BNP 572 troponin high-sensitivity 30.5. Patient with unstable angina ED provider wishes to admit for further evaluation and management. Hospital Course: Patient was admitted for chest pain, troponins trended negative. Patient had heart catheterization on 04/14/2021 which demonstrated distal RCA 70% occluded, this vessels not amendable to intervention at this time given its very small size. Cardiology evaluated the patient recommended that she take an additional dose of her metoprolol 12.5 mg p.o. when having chest pain stated given the size and location she can be discharged for further evaluation and management on outpatient basis. Cardiology plans on sending films from previous heart ca theterization to his colleague in [place] to see if she could benefit from possible intervention at tertiary center in the future. Patient chest pain-free at this time vital signs stable will discharge home continue all home medications. Vital Signs/Physical Exam: Temp Pulse Resp BP Pulse Ox 97.7 F 68 17 128/59 L 92 05/01/21 16:00 05/01/21 16:00 05/01/21 16:01 05/01/21 18:51 05/01/21 16:00 General: Alert, In no apparent distress HEENT: Atraumatic, PERRLA, EOMI Neck: Supple, JVD not distended Respiratory: Clear to auscultation bilaterally, Normal air movement Cardiovascular: Regular rate/rhythm, Normal S1 S2 Gastrointestinal: Normal bowel sounds, No tenderness Musculoskeletal: No tenderness Integumentary: No rashes Neurological: Normal speech, Normal tone, Normal affect Lymphatics: No axilla or inguinal lymphadenopathy Laboratory Data at Discharge: WBC 5.60 K/uL (4.3-10.9) 05/01/21 03:10 Hgb 11.3 g/dL (12.0-15.0) L 05/01/21 03:10 Hct 34.3 % (36.0-45.0) L 05/01/21 03:10 Plt Count 189 K/uL (152-406) 05/01/21 03:10 PT 10.4 SECONDS (9.5-12.5) 04/30/21 22:28 INR 0.91 04/30/21 22:28 Sodium 138 mmol/L (136-145) 05/01/21 03:10 Potassium 4.0 mmol/L (3.5-5.1) 05/01/21 03:10 BUN 19 mg/dL (7-18) H 05/01/21 03:10 Creatinine 0.95 mg/dL (0.55-1.3) 05/01/21 03:10 Glucose 241 mg/dL (74-106) H 05/01/21 03:10 Magnesium 1.8 mg/dL (1.8-2.4) 04/30/21 22:28 Total Bilirubin 0.3 mg/dL (0.2-1.0) 05/01/21 03:10 AST 12 U/L (15-37) L 05/01/21 03:10 ALT 18 U/L (12-78) 05/01/21 03:10 Alkaline Phosphatase 118 U/L (45-117) H 05/01/21 03:10 Home Medications: Gabapentin [Neurontin] 600 mg PO BID 02/25/20 Losartan Potassium [Cozaar] 50 mg PO DAILY 02/25/20 Aspirin [Aspirin EC 81 MG] 162 mg PO DAILY #60 tablet. 02/28/20 Atorvastatin Calcium [Lipitor] 40 mg PO BEDTIME #30 tab 02/28/20 Clopidogrel Bisulfate [Plavix*] 75 mg PO DAILY #30 tablet 02/28/20 Methotrexate [Methotrexate*] 4 tab PO Q7D 03/05/20 Metoprolol Tartrate [Lopressor*] 12.5 mg PO BID 04/13/20 Empagliflozin/Metformin HCl [Synjardy Xr 25-1,000 mg Tablet] 1 tab PO DAILY 04/13/21 Folic Acid 1 mg PO DAILY 04/13/21 Insulin Aspart 8 units SQ BREAKFAST 04/13/21 Insulin Degludec [Tresiba] 26 unit SQ BREAKFAST 04/13/21 Isosorbide Mononitrate [Isosorbide Mononitrate ER] 60 mg PO DAILY 30 Days #30 tab.er.24h 04/14/21 Physician Discharge Instructions: Follow-up with cardiology in the next 1 to 2 weeks. Continue home medications. Diet: AHA Activity: Ad anne Followup: Ricardo Verma MD [Primary Care Provider] - Time spent managing pt's care (in minutes): 35
[2021-05-01 20:09] LABS: Urine Microscopic Reflex ORDER UMIC
[2021-05-01 20:10] LABS: Urine Bacteria <20 /HPF (<20); Urine RBC <5 /HPF (NONE SEEN)
[2021-05-01 20:32] VITALS: BP 123/59; TEMP 98.3
[2021-05-01] MEDS ORDERED: ATORVASTATIN 40 MG TAB PO SCH (21:00)
--- NOTE | 2021-05-03 12:17 | CON ---
Date of Consultation: 05/01/2021 Reason For Consultation: Unstable angina. History Of Present Illness: Mrs. Martinez is 61 with known coronary artery disease. I just did a hear t catheterization on her 13 days ago. She has a very small RCA. She has a very distal RCA stenosis right at the bifurcation of the PDA and the posterolateral. We decided to treat her medically as the vessel was too small. She has had FFR in the past of that vessel, which did not show any significan t stenosis, but she came in back with chest pain. She is on aspirin, Plavix, Imdur 60, metoprolol 12 .5 b.i.d., insulin, and losartan. Denies nausea, vomiting, diaphoresis, PND, orthopnea, pedal edema, palpitations, or syncope. Past Medical History: Include diabetes, hypertension, CAD, rheumatoid arthritis. Allergies: SHE IS ALLERGIC TO IODINE. Medications: Home medication list as stated earlier and also she takes methotrexate and Synjardy. Physical Examination: Vital Signs: Stable, afebrile. HEENT: Negative. Neck: Supple with no bruit. Chest: Clear. Cardiac: Revealed a regular rhythm and rate. No murmurs, gallops, or rubs. Abdomen: Benign. Extremities: Revealed no clubbing, cyanosis, or edema. Diagnostic Data: Troponin was negative. BNP of 572. Glucose of 319. Impression And Plan: Coronary artery disease, [id number], distal RCA small vessel. I will i ncrease her metoprolol to 25 b.i.d., however, take an extra metoprolol as needed. Continue Imdur at 60. Continue the losartan, aspirin, and Plavix and insulin. She should be on a statin. I will have Dr. Mcdonald review the film to see if there is anything else we can do. Her diabetes is poorly contr olled and that needs to be addressed. Blood pressure is well controlled and rheumatoid arthritis is well controlled. She can go home today after Dr. Lopez's okay with that and we will see her in the o ffice soon. I will review the film with Dr. Mcdonald 1 more time. MARJORIE/EVI Voice ID: [id number] Report ID: [id number]
--- NOTE | 2021-05-04 16:11 | EKG ---
Test Date: 2021-05-01 Test Time: 03:50:08 Production Supervisor Trainee: ELLEN MEASUREMENT RESULTS: Intervals: Rate: 70 ME: 150 QRSD: 92 QT: 426 QTc: 460 [place]: P: 55 ME: 150 QRS: -3 T: 34 INTERPRETIVE STATEMENTS: Normal sinus rhythm Cannot rule out Anterior infarct, age undetermined Abnormal ECG Compared to ECG 04/30/2021 22:20:41 Myocardial infarct finding now present Electronically Signed On 05-04-21 16:11:22 EMBALMER ASSISTANT by Tarun Edward
== END 2021-05-01 20:57 | disposition home or self-care (01) ==
LOC: ER 21:51 → ERHOLD 22:51 → 2ND 23:49 → INTOOBSV 05-01 18:07 → OBSVTOIN 05-01 18:07
PROVIDERS: ADMIT Hospitalist; ATTEND Hospitalist
DX: I25.110 Atherosclerotic heart disease of native coronary artery with unstable angina pectoris (principal); E11.65 Type 2 diabetes mellitus with hyperglycemia; I10 Essential (primary) hypertension; M06.9 Rheumatoid arthritis, unspecified; Z20.822 Contact with and (suspected) exposure to COVID-19; Z79.02 Long term (current) use of antithrombotics/antiplatelets; Z79.82 Long term (current) use of aspirin; Z79.899 Other long term (current) drug therapy; Z91.041 Radiographic dye allergy status; Z98.84 Bariatric surgery status; Z96.652 Presence of left artificial knee joint; Z90.49 Acquired absence of other specified parts of digestive tract; Z82.49 Family history of ischemic heart disease and other diseases of the circulatory system; Z80.0 Family history of malignant neoplasm of digestive organs
CPT/HCPCS: 93005 ×2; 85025 ×2; 80048; 36415; 83735; 85610; 82947 ×4; 80076; 84484 ×3; 80053; 83880; 71275; 74177; 71045; 96375; 96374; 99285; U0003; Q9967; J1200; J1650; J2270 ×3; J2405; J2920; G0378 ×2; 81003; 81015

== ENCOUNTER 2021-07-12 20:19 | Inpatient (IN) | payer BC, OTHER ==
--- OUTSIDE RECORDS SUMMARY | 2021-07-12 20:24 | XMS REPORT | Continuity of Care Document ---
:1960 Author Organization [facility] t Address [address] [place] [address] Care Team Providers Name Role Phone Carrie JOE Primary Care Physician Tamara Attending Clinician Unavailable Sergeya Attending Clinician Unavailable Иван RYAN, E Attending Clinician Gaviota Attending Clinician Unavailable Akash ADAMS Attending Clinician Mike RYAN, K.H. Attending Clinician Doctor Unassigned, Name Attending Clinician Unavailable Reggie ZELAYA Attending Clinician Unavailable Physician, Primary or Family Admitting Clinician Unavailabl e Alkarra Admitting Clinician Unavailable Chrisri Admitting Clinician Unavailable [facility] Admitting Clinician Unavailable Reggie ZELAYA Admitting Clinician Unavailable Payers Payer Name Policy Type Policy Number Effective Date Expiration Date S ource Problems Condition Condition Condition Status Onset Resolution Last Treating Co mments Source Name Details Category Date Date Treatment Clinician Date Colitis Colitis Disease Active 2020-03 Univers 1 ity of 00:00: [place] 00 Medical Branch At risk At risk Disease Active 2020-03 Univers for falls for falls 03-19 ity of 00:00: [place] 00 Medical Branch 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 03-19 ity of with with 00:00: [place] depressive depressive 00 Me dical features features Branch due to due to medical medical condition condition Late Late Disease Active 2020-03 Univers effects of effects of 03-19 it y of CVA CVA 00:00: [place] (cerebrova (cerebrova 00 Me dical scular scular Branch accident) accident) History of History of Disease Active 2020-03 U nivers stroke stroke 0-29 ity of 00:00: [place] 00 Medical Branch Generalize Generalize Disease Active U nivers d pain d pain 9-24 ity of 00:00: [place] [facility] Chest pain Chest pain Disease Active 2019-03 U nivers due to CAD due to CAD 2-31 it y of 00:00: [place] 00 Medical Branch Proliferat Proliferat Disease Active [...] ally from mellitus mellitus request for surgery [id number] Gastric Gastric Disease Active Univers band band 8-07 ity of slippage slippage 00:00: [place] 00 Medical Branch NSVT NSVT Disease Active Univers (nonsustai (nonsustai 3-09 it y of adán adán 00:00: [place] ventricula ventricula 00 Me dical r r Branch tachycardi tachycardi a) a) Total knee Total knee Disease Active U nivers replacemen replacemen 3-05 it y of t status t status 00:00: [place] 00 Medical Branch Diabetes Diabetes Disease [facility] [place] [id number] Center Colon Colon Disease Active 2016-03 Univers cancer cancer 1-16 [place] of screening screening [place] Labial Labial Disease Active 2016-03 [facility] lesion lesion 1-16 ity of 00:00: [place] 00 Medical Branch Long-term Long-term Disease Active Uni [...] IDDM IDDM Disease Active Univers (insulin (insulin 4-01 [place]y of dependent dependent 00:00[place] diabetes 00 Medica l mellitus) mellitus) Bran ch Generalize Generalize Disease Active Overview : Univers d d 11-07 Formattin ity of osteoarthr osteoarthr 00:00: g of this [place] osis of osis of 00 note Medical hand hand might be Branch different from the original. ICD10 Diagnosis Term Lumber Mover Utility Diabetic Diabetic Disease Active Unive rs peripheral peripheral 8 it y of neuropathy neuropathy [place] Diabetes Diabetes Disease Active 2011-03 Overview: Un alex mellitus mellitus 1-02 Formattin ity of type 2, type 2, 00:00: g of this [place] uncontroll uncontroll 00 note Me dical ed, ed, might be Branch without without different complicati complicati from the ons ons original. ICD10 Diagnosis Term Lumber Mover Utility Obesity Obesity Disease Active 2011-03 Overview: Univ ers 1- Formattin ity of 00:00: g of this [place] 00 note Medical might be Branch different from the original. ICD10 Diagnosis Term Lumber Mover Utility HLD HLD Disease Active 2011-03 Overview: Univer s (hyperlipi (hyperlipi 03-14 Formattin ity of demia) demia) 00:00: g of this [place] 00 note Medical might be Branch different from the original. ICD10 Diagnosis Term Lumber Mover Utility Elevated Elevated Disease Active 2011-03 Unive rs BP BP 03-14 ity of 00:00: [place] [facility] Mild Mild Disease Active 2011-03 Univers vitamin D vitamin D 03-14 ity of deficiency deficiency [place] [facility] [place] Raynaud's Raynaud's Disease Active Uni vers syndrome syndrome -18 ity of 00:00: [place] [facility] Rheumatoid Rheumatoid Disease Active Overview : Univers arthritis arthritis -18 Formattin i ty of 00:00: g of this note Medical might be Branch different from the original. ICD10 Diagnosis Term Lumber Mover Utility Chronic Chronic Disease Active Univers pain pain -18 ity of syndrome syndrome 00:00: [place] [facility] Allergies, Adverse Reactions, Alerts Allergy Allergy Status Severity Reaction(s) Onset Inactive Treating Comm ents Source Name Type Date Date Clinician iodine DA Active MO HIVES [facility] 2-28 Clear 00:00: [facility] Shellfis Propensi Active Anaphylaxis U nivers h ty to 1-14 ity of Derived adverse 00:00: [place] reaction 00 Medical s Branch Iodinate Propensi Active Hives [facility] to 1-01 [facility] - Contrast adverse 00:00: Medical Media reaction 00 Center s Iodine Propensi Active Rash Other [facility] ty to 5-11 reaction( [facility] - Iodide adverse 00:00: s): Medical Containi reaction 00 Itching Cente r ng s and Products swelling Iodine Propensi Active Rash Univers And ty to 5-11 ity of Iodide adverse 00:00: [place] Containi reaction 00 Medica l ng s Branch Products IODINE DA Active U [place] W/ 2004-0 [facility] CONTRAST BETADINE 8-24 Clear PREP 00:00: [facility] No Known DA Active U 2004-0 [facility] Drug 8-24 Clear Allergie 00:00: [facility] No Known DA Active U 2004-0 [facility] Other 8-24 Clear Allergie 00:00: [facility] SHRIMP DA Active U 2004-0 [facility] 8-24 Clear 00:00: [facility] iodine DA Active U 2004-0 [facility] 2-10 Clear 00:00: [facility] Family History Family Member Diagnosis Comments Start Date Stop Date Source Natural father Heart disease [facility] Natural mother Cancer [facility] Center Social History Social Habit Start Date Stop Date Quantity Comments Source History SDOH [facility] - Alcohol Comment Medical C enter History SDOH [facility] - Alcohol Std Medical Cente r Drinks History SDOH [facility] - Alcohol Binge Medical Jean ter Exposure to 2021-05-12 2021-06-11 Not sure [facility] [place] [facility] 09:00:00 [place] [facility] (event) Branch Tobacco use and 2018-10-15 2018-10-[address] [facility] - exposure 00:00:00 00:00:00 [facility] Alcohol intake 2018-10-15 2018-10-[address] [facility] - 00:00:00 00:00:00 non-drinker of Medical Ce nter alcohol (finding) History SDOH 2018-10-15 2018-10-[address] [facility] - Alcohol Frequency 00:00:00 00:00:00 [facility] Sex Assigned At [address] [facility] - 00:00:00 00:00:00 [facility] Smoking Status Start Date Stop Date Source Never smoker [facility] Medications Ordered Filled Start Stop Current Ordering Indication Dosage Frequency Signature Comments Components Source Medication Medication Date Date Medication? Clinician (SIG) Name Name atorvastati Yes 40mg Take 1 Univ ers n 40 mg 1-20 tablet by ity of tablet 00:00: mouth at [place] 00 bedtime. Medical Branch gabapentin Yes [id number] 600mg Take 1 Univers 600 mg 1-07 tablet by ity of tablet 00:00: mouth 2 [place] 00 (two) Medical times Branch daily. ISOSORBIDE 2020-03 Yes [id number] 30mg TAKE 1 U nivers MONONITRATE 2-10 TABLET BY ity of 30 mg 24 hr 00:00: MOUTH [place] tablet 00 DAILY Medical Branch insulin 2020-03 Yes [id number] INJECT 10 U nivers aspart 2-09 UNITS ity of U-100 00:00: SUBCUTANEO [place] (NOVOLOG 00 US BEFORE Medica l FLEXPEN EACH MEAL Branch U-100 AND INSULIN) SLIDING 100 unit/mL SCALE. MAX (3 mL) DAILY DOSE injection OF 40 UNITS metoprolol 2020-03 Yes 12.5mg Take 0.5 U nivers tartrate 25 2-03 tablets by it y of mg tablet 00:00: mouth 2 [place] 00 (two) Medical times Branch daily. Dextran 2020-03 Yes 1[drp] Place 1 Unive rs 70-Hypromel 0-29 Drop in ity o f lose 13:25: both eyes [place] (ARTIFICIAL 33 as needed. Me dical TEARS) Dpet Branch methotrexat 2020-03 Yes 20mg Take 20 mg Univers e 5 mg 0-29 by mouth ity of tablet 13:25: weekly. [place] 33 Medical Branch foLIC acid 2020-03 Yes 1mg Take 1 mg Un alex 1 mg tablet 0-29 by mouth ity of 13:15: daily. [place] 17 except on Medical date of Branch methotrexa te DULoxetine 2020-03 Yes [id number] 20mg Take 1 U nivers 20 mg 0-29 capsule by ity of capsule 00:00: mouth [place] 00 every Medical morning. Branch empaglifloz 2020-03 Yes [id number] 1{tbl} Take 1 Univers in-metformi 0-11 tablet by ity of n (SYNJARDY 00:00: mouth [place] XR) 00 daily. Medical 25-1,000 mg Branch TBph Insulin 2020-03 Yes [id number] Use as Univ ers [place], 0-11 directed 4 ity o f Disposable, 00:00: times [place] (PEN 00 daily. Medical NEEDLES) 31 E11.65 Branch gauge x 1/4" Ndle HYDROcodone 2020-03 Yes TAKE 1 Univ ers -acetaminop 0-06 TABLET BY ity of hen 5-325 00:00: MOUTH [place] mg tablet 00 EVERY 6 Medical HOURS Branch NEEDED losartan 50 Yes 50mg Take 50 mg Univers mg tablet 9-26 by mouth 2 ity of 17:16: (two) [place] 24 times Medical daily. Branch Blood-Gluco Yes [id number] Use as Univers se Sensor 8-04 directed ity of (DEXCOM G6 00:00: [place] SENSOR) 00 Medical Yolanda Branch Blood-Gluco Yes [id number] Use as Univers se 8-04 directed ity of Transmitter 00:00: [place] (DEXCOM G6 00 Medical TRANSMITTER Branch ) Yolanda Blood-Gluco Yes [id number] Use as Univers se 8-04 directed ity of Meter,Josué 00:00: [place] nuous 00 Medical (DEXCOM G6 Branch STAGE DRIVER) Misc insulin 2021- No [id number] 26U inject 26 Univers degludec 6-21 04-06 Units ity of (TRESIBA 00:00: 00:00 under the [place] as FLEXTOUCH 00 :00 skin Medical U-100) 100 daily. Max Bra nch unit/mL (3 daily dose mL) InPn of 40 units nitroglycer Yes [id number] .4mg Place 1 Univers in 0.4 mg 1-01 tablet ity of sublingual 00:00: [place] tablet 00 tongue Medical every 5 Branch (five) minutes as needed for Chest pain. clopidogreL Yes [id number] 75mg Take 1 Univers (PLAVIX) 75 1-01 tablet by ity of mg tablet 00:00: mouth [place] 00 daily. Medical Branch aspirin 81 Yes [id number] 81mg Take 1 Univers mg chewable 1-01 tablet by ity of tablet 00:00: mouth [place] 00 daily. Medical Branch tofacitinib 2018-03 Yes [id number] 11mg Take 11 mg Univers (XELJANZ 2-18 by mouth ity of XR) 11 mg 00:00: daily. [place] Tb24 00 Medical Branch insulin Yes 12U QD Inject 12 [facility] glargine 8-08 Units [facility] - (LANTUS) 00:04: subcutaneo Med ical 100 unit/mL 52 ly Center injection nightly Use as directed . insulin Yes Inject [facility] aspart 8-08 subcutaneo [facility] - U-100 00:04: usly 3 Medical (NOVOLOG) 52 (three) Center 100 unit/mL times injection daily before meals. insulin Yes 12U QD Inject 12 [facility] glargine 8-08 Units [facility] - (LANTUS) 00:04: subcutaneo Med ical 100 unit/mL 52 usly Center injection nightly Use as directed . insulin Yes Inject [facility] aspart 8-08 subcutaneo [facility] - U-100 00:04: usly 3 Medical (NOVOLOG) 52 (three) Center 100 unit/mL times injection daily before meals. Immunizations Ordered Filled Immunization Date Status Comments Sourc e Immunization Name Name Influenza Virus 2021-01-08 Completed Universit y of Vaccine Quad IM, 00:00:00 [facility] dical Preserv and ABX Branch Free 6 MO-64 YRS Influenza Virus 2019-11-12 Completed Universit y of Vaccine 00:00:00 [facility] Zoster Vaccine 2019-03-25 Completed University of Recombinant 00:00:00 [facility] Zoster Vaccine 2019-01-18 Completed University of Recombinant 00:00:00 [facility] Procedures Procedure Date / Time Performed Performing Clinician Tri e [id number] 2021-06-24 00:00:00 [facility]AA[facility].01 [facility] [id number] 2021-06-24 00:00:00 [facility]AAB.01 [facility] [id number] 2021-06-24 00:00:00 [facility].01 [facility] [id number] 2021-06-24 00:00:00 [facility].01 [facility] [id number] 2021-06-23 00:00:00 RASSA [facility] [id number] 2021-06-23 00:00:00 RASSA [facility] [id number] 2021-06-23 00:00:00 RASSA [facility] Plan of Care Planned Activity Planned Date Details Comments Source Future Scheduled 2021-11-[address] [facility] - Test 00:00:00 (Season Ended) [code = [facility] INFLUENZA VACCINE (Season Ended)] Future Scheduled 2021-03-[address] [facility] - Test 00:00:00 (12+) [code = Medical Center DEPRESSION SCREENING (12+)] Future Scheduled 2020-11-11 INFLUENZA VACCINE (#1[facility] 00:[facility]:00 [code = INFLUENZA Medical Ce nter VACCINE (#1)] Future Scheduled 2020-03-[address] [facility] - Test 00:00:00 (12+) [code = Medical Center DEPRESSION SCREENING (12+)] Future Scheduled 2019-01-[address] [facility] - Test 00:00:00 measurement (procedure) [facility] [code = 80320176] Future Scheduled 2019-01-[address] [facility] - Test 00:00:00 measurement (procedure) [facility] [code = 76261416] Future Scheduled 2012 SHINGLES VACCINES ([address] [facility] - Test 00:00:00 2) [code = SHINGLES Medical Center VACCINES (1 of 2)] Future Scheduled 2012 SHINGLES VACCINES ([address] [facility] - Test 00:00:00 2) [code = SHINGLES Medical Center VACCINES (1 of 2)] Future Scheduled 2007 Lipid panel (procedure) [facility] - Test 00:00:00 [code = 58662132] Medical Ce nter Future Scheduled 2007 Lipid panel (procedure) [facility] - Test 00:00:00 [code = 03404101] Medical Ce nter Future Scheduled 1983 Screening for malignant [facility] - Test 00:00:00 neoplasm of cervix Medical C enter (procedure) [code = 246016652] Future Scheduled 1983 Screening for malignant [facility] - Test 00:00:00 neoplasm of cervix Medical C enter (procedure) [code = 126855968] Future Scheduled 1981 DTAP/TDAP/TD VACCINES [facility] Test 00:00:00 (1 - Tdap) [code = Medical C enter DTAP/TDAP/TD VACCINES (1 - Tdap)] Future Scheduled 1981 DTAP/TDAP/TD VACCINES [facility] Test 00:00:00 (1 - Tdap) [code = Medical C enter DTAP/TDAP/TD VACCINES (1 - Tdap)] Future Scheduled 1980 HEPATITIS C SCREENING [facility] Test 00:00:00 [code = HEPATITIS C Medical Center SCREENING] Future Scheduled 1980 HEPATITIS C [facility]CRE[facility]ING [facility] Test 00:00:00 [code = HEPATITIS C Medical Center SCREENING] Future Scheduled 1974 COVID-19 VACCINE (1) [facility] - Test 00:00:00 [code = COVID-[address] VACCINE (1)] Future Scheduled 1972 DIABETIC EYE EXAM [code [facility] - Test 00:00:00 = DIABETIC EYE EXAM] Medical Center Future Scheduled [address] [facility] - Test 00:00:00 examination Medical Center (regime/therapy) [code = 538647964] Future Scheduled 1972 Urine screening for [facility] - Test 00:00:00 protein (procedure) Medical Center [code = 390978679] Future Scheduled 1972 DIABETIC EYE EXAM [code [facility] - Test 00:00:00 = DIABETIC EYE EXAM] Medical Center Future Scheduled [address] [facility] - Test 00:00:00 examination Medical Center (regime/therapy) [code = 881208878] Future Scheduled 1972 Urine screening for [facility] Test 00:00:00 protein (procedure) Medical Center [code = 786035395] Future Scheduled [address] [facility] - Test 00:00:00 0-64 YRS (1 of 2 - Medical C enter PPSV23) [code = PNEUMOCOCCAL VACCINE 0-64 YRS (1 of 2 - PPSV23)] Future Scheduled [address] [facility] - Test 00:00:00 0-64 YRS (1 of 2 - Medical C enter PPSV23) [code = PNEUMOCOCCAL VACCINE 0-64 YRS (1 of 2 - PPSV23)] Future Scheduled 1967 COVID-19 VACCINE (1) [facility] - Test 00:00:00 [code = COVID-[address] VACCINE (1)] Future Scheduled 1962 Screening for malignant [facility] - Test 00:00:00 neoplasm of breast Medical C enter (procedure) [code = 870543264] Future Scheduled 1962 Screening for malignant [facility] - Test 00:00:00 neoplasm of colon Medical Ce nter (procedure) [code = 419822948] Future Scheduled 1962 Screening for malignant [facility] - Test 00:00:00 neoplasm of breast Medical C enter (procedure) [code = 766972518] Future Scheduled 1962 CT Colonography (combo) [facility] - Test 00:00:00 [code = CT Colonography [facility] (combo)] Future Scheduled 1962 Screening for malignant [facility] - Test 00:00:00 neoplasm of colon Medical Ce nter (procedure) [code = 234310953] Future Scheduled 1962 Screening for malignant [facility] - Test 00:00:00 neoplasm of colon Medical Ce nter (procedure) [code = 753454716] Future Scheduled 1962 Screening for malignant [facility] - Test 00:00:00 neoplasm of colon Medical Ce nter (procedure) [code = 989535208] Future Scheduled 1962 Screening for malignant [facility] - Test 00:00:00 neoplasm of colon Medical Ce nter (procedure) [code = 615438155] Future Scheduled 1960 Sigmoidoscopy [code = [facility] 00:[facility] Sigmoidoscopy] Medical Cente r Encounters Start End Encounter Admission Attending Care Care Encounter Source Date/Time Date/Time Type Type Clinicians Facility Department ID 2021-07-21 Inpatient JAMES JasonCL OUTD [id number] [facility] 11:30:00 Dany [id number] [facility] 2021-06-21 Inpatient JAMES JasonCL OUTD [id number] [facility] 13:00:00 Dany [id number] [facility] 2021-06-23 2021-06-30 Inpatient ANIL Zeng [facility] INTE.02 [id number] [facility] 14:22:00 12:30:00 Alejandra [id number] [facility] 2021-06-11 2021-06-11 Office [place], [facility] [id number] [facility] 09:30:00 09:58:55 Visit Shahnaz E iCrossing 350.1.13.10 i ty of EYE 4.2.7.2.686 [facility] [id number] [facility] 136 Branch 2021-05-12 2021-05-13 Inpatient JAMES PenaCL INTE.02 [id number] [facility] 08:50:00 19:04:00 [facility] [id number] [facility] 2021-05-12 2021-05-13 Inpatient JAMES PenaCL INTE.02 [id number] [facility] 08:50:00 19:04:00 [facility] 14 [facility] 2021-05-10 2021-05-10 Outpatient ANIL Mcdonald, [facility] OUTD [id number] [facility] 13:09:00 13:09:00 Dany [id number] [facility] 2020-03-26 2020-03-26 Emergency [facility], [facility] [id number] 11:51:00 18:13:00 Yani Marcin [id number] [place] 4.2.7.2.686 [place] [id number] 2020-03-26 2020-03-26 Telephone [facility] [id number] 00:00:00 00:00:00 Rachel Burch [id number] [place] 4.2.7.2.686 Professio [id number] nal 059 [facility] 2020-03-16 2020-03-16 Office [facility] [id number] 08:45:41 09:51:05 Visit Rachel MarinNikoGhassan Burch 350.1.13.10 [place] 4.2.7.2.686 Professio [id number] nal 059 [facility] 2020-03-16 2020-03-16 Orders Doctor ASHLEY [id number] 00:00:00 00:00:00 Only Unassigned, PASCALE 350.1.13.10 [place] [facility] 4.2.7.2.686 [id number] Results Test Description Test Time Test Comments Results Result Comments Source HEMOGLOBIN PLASMA 2021-07-02 13:12:00 Test Item Value Reference Range Interpretation Comme nts HEMOGLOBIN PLASMA (test 9.2 mg/dL 0.0-4.9 A Valu es obtained between 5-15 mg/dL code = HGBP) should be inter pretedwith caution since such variables as sub-optimalveni puncture may increase results to this range.Performed At: [facility] [place] [address] [id number] Sanjai MD Ph:[phone] ARTERIAL BLOOD [id number] 15:17:00 Test Item Value Reference Range Interpretation Comments ARTERIAL BLOOD GAS PH TEST NOT PERFORMED 7.35-7.45 (test code = PHA) ARTERIAL BLOOD GAS PCO2 TEST NOT PERFORMED 35-45 (test code = PCO2A) mmHg ARTERIAL BLOOD GAS PO2 TEST NOT PERFORMED 80-100 (test code = PO2A) mmHg BICARBONATE TOTAL HCO3 TEST NOT PERFORMED 22.0-26.0 (test code = HCO3) mmol/L GLUCOSE [id number] 11:03:00 Test Item Value Reference Range Interpretation Comments GLUCOSE BEDSIDE (test 193 MG/DL 70-110 H Perfor med by certified code = GLUBED) 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 BASIC METABOLIC [id number] 04:17:00 Test Item Value Reference Range Interpretation Comments SODIUM (test code = NA) 137 mEq/L 134-147 N POTASSIUM (test code = 4.3 mEq/L 3.4-5.0 N K) CHLORIDE (test code = 106 mEq/L 100-108 N CL) CARBON DIOXIDE (test 24 mEq/l 21-33 N code = CO2) ANION GAP (test code = 11 0-20 N GAP) GLUCOSE (test code = 153 mg/dL 70-110 H GLU) BLOOD UREA NITROGEN 18 mg/dL 7-18 (test code = BUN) GLOMERULAR FILTRATION 50.8 90-95 L Units of measure = RATE (test code = GFR) ml/mi n/1.73 m2 CREATININE (test code = 1.1 mg/dL 0.6-1.3 N CREAT) CALCIUM (test code = 8.4 mg/dL 8.0-10.5 N CA) CBC W/AUTO [id number] 03:33:00 Test Item Value Reference Range Interpretation Comments WHITE BLOOD CELL (test code = 7.3 x10 3/uL 4.5-11.0 N WBC) RED BLOOD CELL (test code = 2.51 x10 6/uL 3.54-5.02 L RBC) HEMOGLOBIN (test code = HGB) 7.3 g/dL 11.0-15.0 L HEMATOCRIT (test code = HCT) 23.4 % 33.0-45.0 L MEAN CELL VOLUME (test code = 93.2 fL 81.0-99.0 N MCV) MEAN CELL HGB (test code = MCH) 29.1 pg 27.0-33.0 N MEAN CELL HGB CONCETRATION 31.2 g/dL 33.0-37.0 L (test code = MCHC) RED CELL DISTRIBUTION WIDTH CV 15.9 % 11.5-14.5 H (test code = RDW) RED CELL DISTRIBUTION WIDTH SD 53.3 fL 37.0-54.0 N (test code = RDW-SD) PLATELET COUNT (test code = 238 x10 3/uL 150-400 N PLT) MEAN PLATELET VOLUME (test code 9.4 fL 7.0-9.0 H = MPV) NEUTROPHIL % (test code = NT%) 63.2 % 56.0-77.0 N IMMATURE GRANULOCYTE % (test 1.0 % 0.0-2.0 N code = IG%) LYMPHOCYTE % (test code = LY%) 17.5 % 14.0-32.0 N MONOCYTE % (test code = MO%) 14.7 % 4.8-9.0 H EOSINOPHIL % (test code = EO%) 3.3 % 0.3-3.7 N BASOPHIL % (test code = BA%) 0.3 % 0.0-2.0 N NUCLEATED RBC % (test code = 0.0 % 0-0 N NRBC%) NEUTROPHIL # (test code = NT#) 4.62 x10 3/uL 2.0-7.6 N IMMATURE GRANULOCYTE # (test 0.07 x10 3/uL 0.00-0.03 H code = IG#) LYMPHOCYTE # (test code = LY#) 1.28 x10 3/uL 1.0-3.8 N MONOCYTE # (test code = MO#) 1.07 x10 3/uL 0.1-0.8 H EOSINOPHIL # (test code = EO#) 0.24 x10 3/uL 0.0-0.2 H BASOPHIL # (test code = BA#) 0.02 x10 3/uL 0.0-0.2 N NUCLEATED RBC # (test code = 0.00 x10 3/uL 0.0-0.1 N NRBC#) MANUAL DIFF REQUIRED (test code NO = MDIFF) COMMENTS: Daily while on HeparinGLUCOSE [id number] 20:07:00 Test Item Value Reference Range Interpretation Comments GLUCOSE BEDSIDE (test 186 MG/DL 70-110 H Perfor med by certified code = GLUBED) 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 BASIC METABOLIC [id number] 07:39:00 Test Item Value Reference Range Interpretation Comments SODIUM (test code = NA) 136 mEq/L 134-147 N POTASSIUM (test code = 4.2 mEq/L 3.4-5.0 N K) CHLORIDE (test code = 104 mEq/L 100-108 N CL) CARBON DIOXIDE (test 24 mEq/l 21-33 N code = CO2) ANION GAP (test code = 12 0-20 N GAP) GLUCOSE (test code = 119 mg/dL 70-110 H GLU) BLOOD UREA NITROGEN 12 mg/dL 7-18 N (test code = BUN) GLOMERULAR FILTRATION 50.8 90-95 L Units of measure = RATE (test code = GFR) ml/mi n/1.73 m2 CREATININE (test code = 1.1 mg/dL 0.6-1.3 N CREAT) CALCIUM (test code = 8.9 mg/dL 8.0-10.5 N CA) [id number] 07:39:00 Test Item Value Reference Range Interpretation Comments MAGNESIUM (test code = MAG) 1.79 mg/dL 1.80-2.40 L CBC W/AUTO [id number] 07:26:00 Test Item Value Reference Range Interpretation Comments WHITE BLOOD CELL (test code = 8.7 x10 3/uL 4.5-11.0 N WBC) RED BLOOD CELL (test code = 2.91 x10 6/uL 3.54-5.02 L RBC) HEMOGLOBIN (test code = HGB) 8.6 g/dL 11.0-15.0 L HEMATOCRIT (test code = HCT) 27.8 % 33.0-45.0 L MEAN CELL VOLUME (test code = 95.5 fL 81.0-99.0 MCV) MEAN CELL HGB (test code = MCH) 29.6 pg 27.0-33.0 N MEAN CELL HGB CONCETRATION 30.9 g/dL 33.0-37.0 L (test code = MCHC) RED CELL DISTRIBUTION WIDTH CV 15.9 % 11.5-14.5 H (test code = RDW) RED CELL DISTRIBUTION WIDTH SD 54.7 fL 37.0-54.0 H (test code = RDW-SD) PLATELET COUNT (test code = 228 x10 3/uL 150-400 N PLT) MEAN PLATELET VOLUME (test code 9.8 fL 7.0-9.0 H = MPV) NEUTROPHIL % (test code = NT%) 65.9 % 56.0-77.0 N IMMATURE GRANULOCYTE % (test 0.8 % 0.0-2.0 N code = IG%) LYMPHOCYTE % (test code = LY%) 16.1 % 14.0-32.0 N MONOCYTE % (test code = MO%) 13.3 % 4.8-9.0 H EOSINOPHIL % (test code = EO%) 3.6 % 0.3-3.7 N BASOPHIL % (test code = BA%) 0.3 % 0.0-2.0 N NUCLEATED RBC % (test code = 0.0 % 0-0 N NRBC%) NEUTROPHIL # (test code = NT#) 5.72 x10 3/uL 2.0-7.6 N IMMATURE GRANULOCYTE # (test 0.07 x10 3/uL 0.00-0.03 H code = IG#) LYMPHOCYTE # (test code = LY#) 1.40 x10 3/uL 1.0-3.8 N MONOCYTE # (test code = MO#) 1.16 x10 3/uL 0.1-0.8 H EOSINOPHIL # (test code = EO#) 0.31 x10 3/uL 0.0-0.2 H BASOPHIL # (test code = BA#) 0.03 x10 3/uL 0.0-0.2 N NUCLEATED RBC # (test code = 0.00 x10 3/uL 0.0-0.1 N NRBC#) MANUAL DIFF REQUIRED (test code NO = MDIFF) COMMENTS: Daily while on HeparinGLUCOSE [id number] 20:52:00 Test Item Value Reference Range Interpretation Comments GLUCOSE BEDSIDE (test 152 MG/DL 70-110 H Perfor med by certified code = GLUBED) 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 GLUCOSE [id number] 16:59:00 Test Item Value Reference Range Interpretation Comments GLUCOSE BEDSIDE (test 180 MG/DL 70-110 H Perfor med by certified code = GLUBED) 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 HEMOGLOBIN [id number] 13:10:00 Test Item Value Reference Range Interpretation Comments HEMOGLOBIN PLASMA 4.0 mg/dL 0.0-4.9 Values obt ained between (test code = HGBP) 5-15 mg/d L should be interpretedwith caution since such vari clara as sub-optimalveni puncture may increase re sults to this range.Perf ormed At: [facility] [id number] ra Jeff RYAN Ph:[phone] HEMOGLOBIN [id number] 13:10:00 Test Item Value Reference Range Interpretation Comments HEMOGLOBIN PLASMA 21.8 mg/dL 0.0-4.9 A Results verified by (test code = HGBP) repeat te stingValues obtained betwee n 5-15 mg/dL should be interpretedwith caution since such vari clara as sub-optimalveni puncture may increase re sults to this range.Perf ormed At: [facility] [id number] ra Jeff RYAN Ph:[phone] COMMENTS: Hemoglobin plasma nowGLUCOSE [id number] 11:52:00 Test Item Value Reference Range Interpretation Comments GLUCOSE BEDSIDE (test 157 MG/DL 70-110 H Perfor med by certified code = GLUBED) 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 GLUCOSE [id number] 08:01:00 Test Item Value Reference Range Interpretation Comments GLUCOSE BEDSIDE (test 168 MG/DL 70-110 H Perfor med by certified code = GLUBED) 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 BASIC METABOLIC [id number] 05:44:00 Test Item Value Reference Range Interpretation Comments SODIUM (test code = NA) 135 mEq/L 134-147 N POTASSIUM (test code = 4.1 mEq/L 3.4-5.0 N K) CHLORIDE (test code = 105 mEq/L 100-108 N CL) CARBON DIOXIDE (test 28 mEq/l 21-33 N code = CO2) ANION GAP (test code = 6 0-20 N GAP) GLUCOSE (test code = 157 mg/dL 70-110 H GLU) BLOOD UREA NITROGEN 10 mg/dL 7-18 N (test code = BUN) GLOMERULAR FILTRATION 56.7 90-95 L Units of measure = RATE (test code = GFR) ml/mi n/1.73 m2 CREATININE (test code = 1.0 mg/dL 0.6-1.3 N CREAT) CALCIUM (test code = 8.6 mg/dL 8.0-10.5 N CA) [id number] 05:44:00 Test Item Value Reference Range Interpretation Comments MAGNESIUM (test code = MAG) 1.81 mg/dL 1.80-2.40 N CBC W/AUTO [id number] 05:33:00 Test Item Value Reference Range Interpretation Comments WHITE BLOOD CELL (test code = 9.0 x10 3/uL 4.5-11.0 N WBC) RED BLOOD CELL (test code = 2.75 x10 6/uL 3.54-5.02 L RBC) HEMOGLOBIN (test code = HGB) 8.2 g/dL 11.0-15.0 L HEMATOCRIT (test code = HCT) 25.2 % 33.0-45.0 L MEAN CELL VOLUME (test code = 91.6 fL 81.0-99.0 N MCV) MEAN CELL HGB (test code = MCH) 29.8 pg 27.0-33.0 N MEAN CELL HGB CONCETRATION 32.5 g/dL 33.0-37.0 L (test code = MCHC) RED CELL DISTRIBUTION WIDTH CV 15.5 % 11.5-14.5 H (test code = RDW) RED CELL DISTRIBUTION WIDTH SD 50.6 fL 37.0-54.0 N (test code = RDW-SD) PLATELET COUNT (test code = 165 x10 3/uL 150-400 N PLT) MEAN PLATELET VOLUME (test code 10.1 fL 7.0-9.0 H = MPV) NEUTROPHIL % (test code = NT%) 77.4 % 56.0-77.0 H IMMATURE GRANULOCYTE % (test 0.4 % 0.0-2.0 N code = IG%) LYMPHOCYTE % (test code = LY%) 10.6 % 14.0-32.0 L MONOCYTE % (test code = MO%) 8.6 % 4.8-9.0 N EOSINOPHIL % (test code = EO%) 2.7 % 0.3-3.7 N BASOPHIL % (test code = BA%) 0.3 % 0.0-2.0 N NUCLEATED RBC % (test code = 0.0 % 0-0 N NRBC%) NEUTROPHIL # (test code = NT#) 6.99 x10 3/uL 2.0-7.6 N IMMATURE GRANULOCYTE # (test 0.04 x10 3/uL 0.00-0.03 H code = IG#) LYMPHOCYTE # (test code = LY#) 0.96 x10 3/uL 1.0-3.8 L MONOCYTE # (test code = MO#) 0.78 x10 3/uL 0.1-0.8 N EOSINOPHIL # (test code = EO#) 0.24 x10 3/uL 0.0-0.2 H BASOPHIL # (test code = BA#) 0.03 x10 3/uL 0.0-0.2 N NUCLEATED RBC # (test code = 0.00 x10 3/uL 0.0-0.1 N NRBC#) MANUAL DIFF REQUIRED (test code NO = MDIFF) COMMENTS: Hemoglobin plasma every am while on Impella support.GLUCOSE [id number] 19:35:00 Test Item Value Reference Range Interpretation Comments GLUCOSE BEDSIDE (test 134 MG/DL 70-110 H Perfor med by certified code = GLUBED) 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 [facility] GLUCOSE [id number] 16:12:00 Test Item Value Reference Range Interpretation Comments GLUCOSE BEDSIDE (test 171 MG/DL 70-110 H Perfor med by certified code = GLUBED) 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 [facility] HGB [id number] 15:52:00 Test Item Value Reference Range Interpretation Comments HEMOGLOBIN (test code = HGB) 7.9 g/dL 11.0-15.0 L HEMATOCRIT (test code = HCT) 24.3 % 33.0-45.0 L POC ARTERIAL BLOOD [id number] 14:58:00 Test Item Value Reference Range Interpretation Comments POC ARTERIAL BLOOD GAS PH (test 7.524 7.35-7.45 HH code = POCPHA) POC ARTERIAL BLOOD GAS PCO2 34.0 mmHg 35.0-45 L (test code = [id number]) POC TCO2 ARTERIAL (test code = 29.1 POCTCO2) POC ARTERIAL BLOOD GAS PO2 (test 78.6 mmHg 80-100.0 L code = ZDXQD4M) POC HCO3 ARTERIAL (test code = 28.1 MMOL/L 22.0-26.0 HH [id number]) POC BASE EXCESS (test code = 5.3 MMOL/L -4.0-4.0 H POCBEA) POC O2 SATURATION (test code = 96.9 % 90-100 N POCO2S) FIO2 (test code = FIO2A) 21 % PaO2/FiO2 (test code = [id number]) 374.28 mm/Hg ABG SITE (test code = SITEA) L Radial NEREYDA'S TEST (test code = Positive ALLENS) BASIC METABOLIC [id number] 14:58:00 Test Item Value Reference Range Interpretation Comments SODIUM (test code = NA/ABG) 134 MEQ/L 134-147 N POTASSIUM (test code = K/ABG) 3.9 MEQ/L 3.4-5.0 N CHLORIDE (test code = CL/ABG) 95 MEQ/L 100-108 L CREATININE ABG (test code = 1.0 mg/dL 0.6-1.0 N CREAABG) POC IONIZED CALCIUM (test code = 1.10 MMOL/L 1.12-1.32 L POCCA) POC GLUCOSE (test code = POCGLU) 209 MG/DL HEMOGLOBIN [id number] 14:58:00 Test Item Value Reference Range Interpretation Comments HEMOGLOBIN ABG (test code = HGB/ABG) 6.4 G/DL 11.0-15.0 L [id number] 14:58:00 Test Item Value Reference Range Interpretation Comments HEMATOCRIT (test code = HCT/ABG) 19 % 33.0-45.0 L POC LACTIC [id number] 14:58:00 Test Item Value Reference Range Interpretation Comments POC LACTIC ACID (test code = 0.9 mmol/l 0.9-1.7 N POCLAC) GLUCOSE [id number] 11:20:00 Test Item Value Reference Range Interpretation Comments GLUCOSE BEDSIDE (test 182 MG/DL 70-110 H Perfor med by certified code = GLUBED) 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 GLUCOSE [id number] 07:22:00 Test Item Value Reference Range Interpretation Comments GLUCOSE BEDSIDE (test 97 MG/DL 70-110 N Perfor med by certified code = GLUBED) 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 COMPREHENSIVE METABOLIC [id number] 05:51:00 Test Item Value Reference Range Interpretation Comments SODIUM (test code = NA) 139 mEq/L 134-147 N POTASSIUM (test code = 3.6 mEq/L 3.4-5.0 N K) CHLORIDE (test code = 106 mEq/L 100-108 N CL) CARBON DIOXIDE (test 32 mEq/l 21-33 N code = CO2) ANION GAP (test code = 5 0-20 N GAP) GLUCOSE (test code = 109 mg/dL 70-110 GLU) BLOOD UREA NITROGEN 10 mg/dL 7-18 (test code = BUN) GLOMERULAR FILTRATION 73.4 90-95 L Units of measure = RATE (test code = GFR) ml/mi n/1.73 m2 CREATININE (test code = 0.8 mg/dL 0.6-1.3 CREAT) TOTAL PROTEIN (test 5.1 g/dL 6.4-8.2 L code = PROT) ALBUMIN (test code = 2.70 g/dL 3.4-5.0 L ALB) CALCIUM (test code = 7.6 mg/dL 8.0-10.5 L CA) BILIRUBIN TOTAL (test 0.60 mg/dL 0.0-1.0 code = BILT) SGOT/AST (test code = 29 IUnit/L 15-37 AST) SGPT/ALT (test code = 13 IUnit/L 30-65 L ALT) ALKALINE PHOSPHATASE 59 IUnit/L 20-125 N TOTAL (test code = ALKP) [id number] 05:51:00 Test Item Value Reference Range Interpretation Comments MAGNESIUM (test code = MAG) 1.72 mg/dL 1.80-2.40 L CBC W/AUTO [id number] 05:42:00 Test Item Value Reference Range Interpretation Comments WHITE BLOOD CELL (test code = 8.7 x10 3/uL 4.5-11.0 N WBC) RED BLOOD CELL (test code = 2.61 x10 6/uL 3.54-5.02 L RBC) HEMOGLOBIN (test code = HGB) 7.6 g/dL 11.0-15.0 L HEMATOCRIT (test code = HCT) 23.7 % 33.0-45.0 L MEAN CELL VOLUME (test code = 90.8 fL 81.0-99.0 N MCV) MEAN CELL HGB (test code = MCH) 29.1 pg 27.0-33.0 N MEAN CELL HGB CONCETRATION 32.1 g/dL 33.0-37.0 L (test code = MCHC) RED CELL DISTRIBUTION WIDTH CV 15.2 % 11.5-14.5 H (test code = RDW) RED CELL DISTRIBUTION WIDTH SD 50.4 fL 37.0-54.0 N (test code = RDW-SD) PLATELET COUNT (test code = 130 x10 3/uL 150-400 L PLT) MEAN PLATELET VOLUME (test code 9.2 fL 7.0-9.0 H = MPV) NEUTROPHIL % (test code = NT%) 73.1 % 56.0-77.0 N IMMATURE GRANULOCYTE % (test 0.6 % 0.0-2.0 N code = IG%) LYMPHOCYTE % (test code = LY%) 13.7 % 14.0-32.0 L MONOCYTE % (test code = MO%) 9.1 % 4.8-9.0 H EOSINOPHIL % (test code = EO%) 3.2 % 0.3-3.7 N BASOPHIL % (test code = BA%) 0.3 % 0.0-2.0 N NUCLEATED RBC % (test code = 0.0 % 0-0 N NRBC%) NEUTROPHIL # (test code = NT#) 6.33 x10 3/uL 2.0-7.6 N IMMATURE GRANULOCYTE # (test 0.05 x10 3/uL 0.00-0.03 H code = IG#) LYMPHOCYTE # (test code = LY#) 1.19 x10 3/uL 1.0-3.8 N MONOCYTE # (test code = MO#) 0.79 x10 3/uL 0.1-0.8 N EOSINOPHIL # (test code = EO#) 0.28 x10 3/uL 0.0-0.2 H BASOPHIL # (test code = BA#) 0.03 x10 3/uL 0.0-0.2 N NUCLEATED RBC # (test code = 0.00 x10 3/uL 0.0-0.1 N NRBC#) MANUAL DIFF REQUIRED (test code NO = MDIFF) COMMENTS: Hemoglobin plasma every am while on Impella support.COMMENTS: Daily while on HeparinGLUCOSE [id number] 20:19:00 Test Item Value Reference Range Interpretation Comments GLUCOSE BEDSIDE (test 173 MG/DL 70-110 H Perfor med by certified code = GLUBED) 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 GLUCOSE [id number] 18:00:00 Test Item Value Reference Range Interpretation Comments GLUCOSE BEDSIDE (test 216 MG/DL 70-110 H Perfor med by certified code = GLUBED) 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 GLUCOSE [id number] 12:46:00 Test Item Value Reference Range Interpretation Comments GLUCOSE BEDSIDE (test 139 MG/DL 70-110 H Perfor med by certified code = GLUBED) 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 GLUCOSE [id number] 08:22:00 Test Item Value Reference Range Interpretation Comments GLUCOSE BEDSIDE (test 126 MG/DL 70-110 H Perfor med by certified code = GLUBED) 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 BASIC METABOLIC [id number] 05:13:00 Test Item Value Reference Range Interpretation Comments SODIUM (test code = NA) 142 mEq/L 134-147 N POTASSIUM (test code = 3.7 mEq/L 3.4-5.0 K) CHLORIDE (test code = 109 mEq/L 100-108 H CL) CARBON DIOXIDE (test 28 mEq/l 21-33 code = CO2) ANION GAP (test code = 9 0-20 N GAP) GLUCOSE (test code = 154 mg/dL 70-110 H GLU) BLOOD UREA NITROGEN 17 mg/dL 7-18 N (test code = BUN) GLOMERULAR FILTRATION 50.8 90-95 L Units of measure = RATE (test code = GFR) ml/mi n/1.73 m2 CREATININE (test code = 1.1 mg/dL 0.6-1.3 N CREAT) CALCIUM (test code = 7.7 mg/dL 8.0-10.5 L CA) [id number] 05:13:00 Test Item Value Reference Range Interpretation Comments MAGNESIUM (test code = MAG) 1.68 mg/dL 1.80-2.40 L B-TYPE NATRIURETIC [id number] 05:12:00 Test Item Value Reference Range Interpretation Comments B-TYPE NATRIURETIC PEPTIDE (test 223.0 PG/ML 0-100 H code = BNP) CBC W/AUTO [id number] 05:08:00 Test Item Value Reference Range Interpretation Comments WHITE BLOOD CELL (test code = 9.2 x10 3/uL 4.5-11.0 N WBC) RED BLOOD CELL (test code = 2.29 x10 6/uL 3.54-5.02 L RBC) HEMOGLOBIN (test code = HGB) 6.7 g/dL 11.0-15.0 L HEMATOCRIT (test code = HCT) 20.9 % 33.0-45.0 L MEAN CELL VOLUME (test code = 91.3 fL 81.0-99.0 N MCV) MEAN CELL HGB (test code = MCH) 29.3 pg 27.0-33.0 N MEAN CELL HGB CONCETRATION 32.1 g/dL 33.0-37.0 L (test code = MCHC) RED CELL DISTRIBUTION WIDTH CV 16.0 % 11.5-14.5 H (test code = RDW) RED CELL DISTRIBUTION WIDTH SD 53.2 fL 37.0-54.0 N (test code = RDW-SD) PLATELET COUNT (test code = 121 x10 3/uL 150-400 L PLT) MEAN PLATELET VOLUME (test code 9.2 fL 7.0-9.0 H = MPV) NEUTROPHIL % (test code = NT%) 76.2 % 56.0-77.0 N IMMATURE GRANULOCYTE % (test 0.5 % 0.0-2.0 N code = IG%) LYMPHOCYTE % (test code = LY%) 10.3 % 14.0-32.0 L MONOCYTE % (test code = MO%) 11.3 % 4.8-9.0 H EOSINOPHIL % (test code = EO%) 1.6 % 0.3-3.7 N BASOPHIL % (test code = BA%) 0.1 % 0.0-2.0 N NUCLEATED RBC % (test code = 0.0 % 0-0 N NRBC%) NEUTROPHIL # (test code = NT#) 6.99 x10 3/uL 2.0-7.6 N IMMATURE GRANULOCYTE # (test 0.05 x10 3/uL 0.00-0.03 H code = IG#) LYMPHOCYTE # (test code = LY#) 0.95 x10 3/uL 1.0-3.8 L MONOCYTE # (test code = MO#) 1.04 x10 3/uL 0.1-0.8 H EOSINOPHIL # (test code = EO#) 0.15 x10 3/uL 0.0-0.2 N BASOPHIL # (test code = BA#) 0.01 x10 3/uL 0.0-0.2 N NUCLEATED RBC # (test code = 0.00 x10 3/uL 0.0-0.1 N NRBC#) MANUAL DIFF REQUIRED (test code NO = MDIFF) COMMENTS: Hemoglobin plasma every am while on Impella support.COMMENTS: Daily while on Heparin- DUP UE ART [id number] 00:00:[address] [facility] 1960 Sex: F Name: MARINA YEN [facility] : [birth year] Age/S: 61 / F [address] [place] [address] Unit #: [id number] Loc: [place] [address] Phys: Loly Agee LODE MINER Acct: [id number] Dis Date: Status: ADM INPHONE #: [phone] Exam Date: 06/26/2021 0951 FAX #: [phone] Reason: S/P IMPELLA REMOVAL/RULE OUT HEMATOMA EXAMS: CPT CODE: [id number] DUP UE ART UNI/LTD 12129 PROCEDURE INFORMATION: Exam: US Duplex Right Lower Extremity Arteries Or Arterial Bypass Grafts Exam date and time: 06/26/2021 9:31 AM Age: 61 years old Clinical indication: Pain; Leg, upper; Right; Additional info: S/P impella removal/rule out hematoma TECHNIQUE: Imaging protocol: Right Real-time duplex scan of the arteries or arterial bypass grafts of the right lower extremity with 2-D crow scale, color Doppler flow and spectral waveform analysis. Images documented and saved. COMPARISON: No relevant prior studies available. FINDINGS: Mild soft tissue edema in the right groin without soft tissue hematoma. Patent right common femoral/superficial femoral arteries with normal waveforms. No pseudoaneurysm. Patent right common femoral vein and visualized proximal femoral vein. IMPRESSION: 1. Mild soft tissue edema in the right groin without soft tissue hematoma. 2. Patent right groin arterial and venous circulation without pseudoaneurysm or fistula. at 1013 Reported and signed by: Yonatan Pablo M.D. CC: Alejandra Zeng MD; Loly Agee NP; Dany Mcdonald MD Technologist: Monalisa Carter RDMS(Reggie)(BR) Trnscb Date/Time: 06/26/2021 (101) [email or web address] Orig Print D/T: S: 06/26/2021 (1013) Probe: PAGE 1 Signed Report- XR CHEST 1 [id number] 00:00[facility]00 [facility] 1960 Sex: F FAX: Alejandra Fraga MD [phone] [place]: St: ADM FAX: Zoraida Hayward [phone] FAX: Dany Dean MD [phone] Name: MARINA YEN [facility] : 1960 Age/S: 61/F [address] [place] [address] Unit #: [id number] Loc: [address] [place] [address] Phys: Zoraida Felder AGACNP Acct: [id number] Dis Date: Status: ADM IN PHONE #: [phone] Exam Date: 06/26/2021610 FAX #: [phone] Reason: fluid overload EXAMS: CPT CODE: [id number] XR CHEST 1 V 17772 PROCEDURE INFORMATION: Exam: XR Chest Exam date and time: 06/26/2021 6:09 AM Age: 61 years old Clinical indication: Other: Fluid overload TECHNIQUE: Imaging protocol: XR of the chest. Views: 1 view. COMPARISON: DX XR CHEST 2 V 05/10/2021 2:38 PM FINDINGS: Lungs: No obvious infiltrates or consolidations. Pleural spaces: Unremarkable. No pleural effusion. No pneumothorax. Heart/Mediastinum: Cardiomegaly. Bones/joints: Thoracic spurring. IMPRESSION: No obvious infiltrates or consolidations. at 0751 Reported and signed by: Momo Weiner M.D. CC: Alejandra Zeng MD; Zoraida Felder; Dany Mcdonald MD Technologist: Rona Banuelos, RT(R); Nancy Melton, RT(R) Trnscrd Date/Time/By: 06/26/2021 (0751) : By: [email or web address] Orig Print D/T: S: 06/26/2021 (0754)PAGE 1 Signed ReportGLUCOSE [id number] 20:45:00 Test Item Value Reference Range Interpretation Comments GLUCOSE BEDSIDE (test 109 MG/DL 70-110 N Perfor med by certified code = GLUBED) 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 GLUCOSE [id number] 17:17:00 Test Item Value Reference Range Interpretation Comments GLUCOSE BEDSIDE (test 188 MG/DL 70-110 H Perfor med by certified code = GLUBED) 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 HGB [id number] 17:07:00 Test Item Value Reference Range Interpretation Comments HEMOGLOBIN (test code = HGB) 7.3 g/dL 11.0-15.0 L HEMATOCRIT (test code = HCT) 22.9 % 33.0-45.0 L GLUCOSE [id number] 12:04:00 Test Item Value Reference Range Interpretation Comments GLUCOSE BEDSIDE (test 265 MG/DL 70-110 H Perfor med by certified code = GLUBED) 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 GLUCOSE [id number] 07:41:00 Test Item Value Reference Range Interpretation Comments GLUCOSE BEDSIDE (test 288 MG/DL 70-110 H Perfor med by certified code = GLUBED) 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 [id number] 04:51:00 Test Item Value Reference Range Interpretation Comments MAGNESIUM (test code = MAG) 2.48 mg/dL 1.80-2.40 H CALCIUM [id number] 04:51:00 Test Item Value Reference Range Interpretation Comments CALCIUM IONIZED (test code = RYLEE) 1.01 MMOL/L 1.12-1.32 L CBC W/AUTO [id number] 04:33:00 Test Item Value Reference Range Interpretation Comments WHITE BLOOD CELL (test code = 12.4 x10 3/uL 4.5-11.0 H WBC) RED BLOOD CELL (test code = 2.66 x10 6/uL 3.54-5.02 L RBC) HEMOGLOBIN (test code = HGB) 7.8 g/dL 11.0-15.0 L HEMATOCRIT (test code = HCT) 24.8 % 33.0-45.0 L MEAN CELL VOLUME (test code = 93.2 fL 81.0-99.0 N MCV) MEAN CELL HGB (test code = 29.3 pg 27.0-33.0 N MCH) MEAN CELL HGB CONCETRATION 31.5 g/dL 33.0-37.0 L (test code = MCHC) RED CELL DISTRIBUTION WIDTH CV 15.9 % 11.5-14.5 H (test code = RDW) RED CELL DISTRIBUTION WIDTH SD 54.5 fL 37.0-54.0 H (test code = RDW-SD) PLATELET COUNT (test code = 133 x10 3/uL 150-400 L PLT) MEAN PLATELET VOLUME (test 9.7 fL 7.0-9.0 H code = MPV) NEUTROPHIL % (test code = NT%) 90.8 % 56.0-77.0 H IMMATURE GRANULOCYTE % (test 0.3 % 0.0-2.0 N code = IG%) LYMPHOCYTE % (test code = LY%) 2.4 % 14.0-32.0 L MONOCYTE % (test code = MO%) 6.5 % 4.8-9.0 N EOSINOPHIL % (test code = EO%) 0.0 % 0.3-3.7 L BASOPHIL % (test code = BA%) 0.0 % 0.0-2.0 N NUCLEATED RBC % (test code = 0.0 % 0-0 N NRBC%) NEUTROPHIL # (test code = NT#) 11.23 x10 3/uL 2.0-7.6 H IMMATURE GRANULOCYTE # (test 0.04 x10 3/uL 0.00-0.03 H code = IG#) LYMPHOCYTE # (test code = LY#) 0.30 x10 3/uL 1.0-3.8 L MONOCYTE # (test code = MO#) 0.80 x10 3/uL 0.1-0.8 N EOSINOPHIL # (test code = EO#) 0.00 x10 3/uL 0.0-0.2 N BASOPHIL # (test code = BA#) 0.00 x10 3/uL 0.0-0.2 N NUCLEATED RBC # (test code = 0.00 x10 3/uL 0.0-0.1 N NRBC#) MANUAL DIFF REQUIRED (test NO code = MDIFF) COMMENTS: Hemoglobin plasma every am while on [employer] support.COMMENTS: To be done morningof Heart CathBASIC METABOLIC [id number] 04:10:00 Test Item Value Reference Range Interpretation Comments SODIUM (test code = NA) 140 mEq/L 134-147 N POTASSIUM (test code = 4.9 mEq/L 3.4-5.0 N K) CHLORIDE (test code = 115 mEq/L 100-108 H CL) CARBON DIOXIDE (test 21 mEq/l 21-33 N code = CO2) ANION GAP (test code = 9 0-20 N GAP) GLUCOSE (test code = 339 mg/dL 70-110 H GLU) BLOOD UREA NITROGEN 16 mg/dL 7-18 N (test code = BUN) GLOMERULAR FILTRATION 46.0 90-95 L Units of measure = RATE (test code = GFR) ml/mi n/1.73 m2 CREATININE (test code = 1.2 mg/dL 0.6-1.3 N CREAT) CALCIUM (test code = 7.1 mg/dL 8.0-10.5 L CA) COMMENTS: To be done morning of Heart CathLACTIC ACID 2ND [id number] 04:09:00 Test Item Value Reference Range Interpretation Comments LACTIC ACID 2ND REPEAT (test code 2.0 mmol/L 0.4-1.9 H = LACT2) ABOUT TO DRAW REPEATBASIC METABOLIC [id number] 01:02:00 Test Item Value Reference Range Interpretation Comments SODIUM (test code = NA) 139 mEq/L 134-147 N POTASSIUM (test code = 4.4 mEq/L 3.4-5.0 N K) CHLORIDE (test code = 114 mEq/L 100-108 H CL) CARBON DIOXIDE (test 19 mEq/l 21-33 L code = CO2) ANION GAP (test code = 11 0-20 N GAP) GLUCOSE (test code = 425 mg/dL 70-110 H GLU) BLOOD UREA NITROGEN 13 mg/dL 7-18 N (test code = BUN) GLOMERULAR FILTRATION 46.0 90-95 L Units of measure = RATE (test code = GFR) ml/mi n/1.73 m2 CREATININE (test code = 1.2 mg/dL 0.6-1.3 N CREAT) CALCIUM (test code = 6.7 mg/dL 8.0-10.5 L CA) LACTIC ACID [id number] 00:57:00 Test Item Value Reference Range Interpretation Comments LACTIC ACID REPEAT (test code = 3.0 mmol/l 0.4-1.9 H LACTR) COMPREHENSIVE METABOLIC [id number] 21:11:00 Test Item Value Reference Range Interpretation Comments SODIUM (test code = 140 mEq/L 134-147 N NA) POTASSIUM (test code = 5.5 mEq/L 3.4-5.0 H SPEC IMEN 1+ K) HEMOLYZED.Resul ts known to be adv ersely affected by hem olysis are: Potass ium Magnesium LDH Phosphorus CHLORIDE (test code = 115 mEq/L 100-108 H CL) CARBON DIOXIDE (test 20 mEq/l 21-33 L code = CO2) ANION GAP (test code = 11 0-20 N GAP) GLUCOSE (test code = 312 mg/dL 70-110 H GLU) BLOOD UREA NITROGEN 14 mg/dL 7-18 (test code = BUN) GLOMERULAR FILTRATION 46.0 90-95 L Units of measure = RATE (test code = GFR) ml/mi n/1.73 m2 CREATININE (test code 1.2 mg/dL 0.6-1.3 N = CREAT) TOTAL PROTEIN (test 5.0 g/dL 6.4-8.2 L code = PROT) ALBUMIN (test code = 2.80 g/dL 3.4-5.0 L ALB) CALCIUM (test code = 6.5 mg/dL 8.0-10.5 L CA) BILIRUBIN TOTAL (test 0.30 mg/dL 0.0-1.0 N code = BILT) SGOT/AST (test code = 78 IUnit/L 15-37 H AST) SGPT/ALT (test code = 18 IUnit/L 30-65 L ALT) ALKALINE PHOSPHATASE 55 IUnit/L 20-125 N TOTAL (test code = ALKP) [id number] 21:11:00 Test Item Value Reference Range Interpretation Comments PHOSPHOROUS (test code = PHOS) 3.5 MG/DL 2.5-4.9 N [id number] 21:11:00 Test Item Value Reference Range Interpretation Comments MAGNESIUM (test code = MAG) 1.99 mg/dL 1.80-2.40 N CALCIUM [id number] 21:11:00 Test Item Value Reference Range Interpretation Comments CALCIUM IONIZED (test code = RYLEE) 0.89 MMOL/L 1.12-1.32 L LACTIC [id number] 21:05:00 Test Item Value Reference Range Interpretation Comments LACTIC ACID (test code = LACT) 2.2 mmol/L 0.4-1.9 H CBC W/AUTO [id number] 21:02:00 Test Item Value Reference Range Interpretation Comments WHITE BLOOD CELL (test code = 24.2 x10 3/uL 4.5-11.0 H WBC) RED BLOOD CELL (test code = 3.15 x10 6/uL 3.54-5.02 L RBC) HEMOGLOBIN (test code = HGB) 9.2 g/dL 11.0-15.0 L HEMATOCRIT (test code = HCT) 29.5 % 33.0-45.0 L MEAN CELL VOLUME (test code = 93.7 fL 81.0-99.0 N MCV) MEAN CELL HGB (test code = 29.2 pg 27.0-33.0 N MCH) MEAN CELL HGB CONCETRATION 31.2 g/dL 33.0-37.0 L (test code = MCHC) RED CELL DISTRIBUTION WIDTH CV 16.0 % 11.5-14.5 H (test code = RDW) RED CELL DISTRIBUTION WIDTH SD 54.8 fL 37.0-54.0 H (test code = RDW-SD) PLATELET COUNT (test code = 239 x10 3/uL 150-400 N PLT) MEAN PLATELET VOLUME (test 9.6 fL 7.0-9.0 H code = MPV) NEUTROPHIL % (test code = NT%) 93.6 % 56.0-77.0 H IMMATURE GRANULOCYTE % (test 0.6 % 0.0-2.0 N code = IG%) LYMPHOCYTE % (test code = LY%) 1.4 % 14.0-32.0 L MONOCYTE % (test code = MO%) 4.3 % 4.8-9.0 L EOSINOPHIL % (test code = EO%) 0.0 % 0.3-3.7 L BASOPHIL % (test code = BA%) 0.1 % 0.0-2.0 N NUCLEATED RBC % (test code = 0.0 % 0-0 N NRBC%) NEUTROPHIL # (test code = NT#) 22.66 x10 3/uL 2.0-7.6 H IMMATURE GRANULOCYTE # (test 0.15 x10 3/uL 0.00-0.03 H code = IG#) LYMPHOCYTE # (test code = LY#) 0.33 x10 3/uL 1.0-3.8 L MONOCYTE # (test code = MO#) 1.05 x10 3/uL 0.1-0.8 H EOSINOPHIL # (test code = EO#) 0.00 x10 3/uL 0.0-0.2 N BASOPHIL # (test code = BA#) 0.03 x10 3/uL 0.0-0.2 N NUCLEATED RBC # (test code = 0.00 x10 3/uL 0.0-0.1 N NRBC#) MANUAL DIFF REQUIRED (test NO code = MDIFF) GLUCOSE [id number] 20:14:00 Test Item Value Reference Range Interpretation Comments GLUCOSE BEDSIDE (test 301 MG/DL 70-110 H Perfor med by certified code = GLUBED) 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 ARTERIAL BLOOD [id number] 16:54:00 Test Item Value Reference Range Interpretation Comments POC ARTERIAL BLOOD GAS PH (test 7.268 7.35-7.45 LL code = POCPHA) POC ARTERIAL BLOOD GAS PCO2 46.0 mmHg 35.0-45 H (test code = TRVUYI5H) POC TCO2 ARTERIAL (test code = 22.4 POCTCO2) POC ARTERIAL BLOOD GAS PO2 (test 247.9 mmHg 80-100.0 HH code = RROZN0D) POC HCO3 ARTERIAL (test code = 21.0 MMOL/L 22.0-26.0 L [id number]) POC BASE EXCESS (test code = -5.9 MMOL/L -4.0-4.0 L POCBEA) POC O2 SATURATION (test code = 99.8 % 90-100 N POCO2S) ABG SITE (test code = SITEA) [place] BASIC METABOLIC [id number] 16:54:00 Test Item Value Reference Range Interpretation Comments SODIUM (test code = NA/ABG) 139 MEQ/L 134-147 N POTASSIUM (test code = K/ABG) 3.5 MEQ/L 3.4-5.0 N CHLORIDE (test code = CL/ABG) 100 MEQ/L 100-108 N CREATININE ABG (test code = 1.2 mg/dL 0.6-1.0 H CREAABG) POC IONIZED CALCIUM (test code = 1.09 MMOL/L 1.12-1.32 L POCCA) POC GLUCOSE (test code = POCGLU) 295 MG/DL HEMOGLOBIN [id number] 16:54:00 Test Item Value Reference Range Interpretation Comments HEMOGLOBIN ABG (test code = HGB/ABG) 7.0 G/DL 11.0-15.0 L [id number] 16:54:00 Test Item Value Reference Range Interpretation Comments HEMATOCRIT (test code = HCT/ABG) 21 % 33.0-45.0 L POC LACTIC [id number] 16:54:00 Test Item Value Reference Range Interpretation Comments POC LACTIC ACID (test code = 6.5 mmol/l 0.9-1.7 HH POCLAC) [id number] 16:49:00 Test Item Value Reference Range Interpretation Comments ACT-ISTAT (test code 136 SEC 74-137 N Perform ed by certified = ACTI) 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 [facility] THROMBOPLASTIN TIME [id number] 13:10:00 Test Item Value Reference Range Interpretation Comments THROMBOPLASTIN TIME 96.3 Seconds 25.0-39.5 H Ther apeutic PARTIAL (test code = Range: 50.4 - 88.3 PTT) Seconds Effective 06/26/2018 CBC W/O [id number] 13:01:00 Test Item Value Reference Range Interpretation Comments WHITE BLOOD CELL (test code = 14.0 x10 3/uL 4.5-11.0 H WBC) RED BLOOD CELL (test code = 3.35 x10 6/uL 3.54-5.02 L RBC) HEMOGLOBIN (test code = HGB) 9.6 g/dL 11.0-15.0 L HEMATOCRIT (test code = HCT) 30.9 % 33.0-45.0 L MEAN CELL VOLUME (test code = 92.2 fL 81.0-99.0 N MCV) MEAN CELL HGB (test code = MCH) 28.7 pg 27.0-33.0 N MEAN CELL HGB CONCETRATION 31.1 g/dL 33.0-37.0 L (test code = MCHC) RED CELL DISTRIBUTION WIDTH CV 16.0 % 11.5-14.5 H (test code = RDW) RED CELL DISTRIBUTION WIDTH SD 53.7 fL 37.0-54.0 N (test code = RDW-SD) PLATELET COUNT (test code = 194 x10 3/uL 150-400 N PLT) MEAN PLATELET VOLUME (test code 9.5 fL 7.0-9.0 H = MPV) GLUCOSE [id number] 11:31:00 Test Item Value Reference Range Interpretation Comments GLUCOSE BEDSIDE (test 165 MG/DL 70-110 H Perfor med by certified code = GLUBED) 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 [facility] THROMBOPLASTIN TIME [id number] 10:57:00 Test Item Value Reference Range Interpretation Comments THROMBOPLASTIN TIME 93.7 Seconds 25.0-39.5 H Ther apeutic PARTIAL (test code = Range: 50.4 - 88.3 PTT) Seconds Effective 06/26/2018 CBC W/AUTO [id number] 10:48:00 Test Item Value Reference Range Interpretation Comments WHITE BLOOD CELL (test code = 12.5 x10 3/uL 4.5-11.0 H WBC) RED BLOOD CELL (test code = 3.30 x10 6/uL 3.54-5.02 L RBC) HEMOGLOBIN (test code = HGB) 9.3 g/dL 11.0-15.0 L HEMATOCRIT (test code = HCT) 29.5 % 33.0-45.0 L MEAN CELL VOLUME (test code = 89.4 fL 81.0-99.0 N MCV) MEAN CELL HGB (test code = 28.2 pg 27.0-33.0 N MCH) MEAN CELL HGB CONCETRATION 31.5 g/dL 33.0-37.0 L (test code = MCHC) RED CELL DISTRIBUTION WIDTH CV 15.9 % 11.5-14.5 H (test code = RDW) RED CELL DISTRIBUTION WIDTH SD 51.5 fL 37.0-54.0 N (test code = RDW-SD) PLATELET COUNT (test code = 213 x10 3/uL 150-400 N PLT) MEAN PLATELET VOLUME (test 9.3 fL 7.0-9.0 H code = MPV) NEUTROPHIL % (test code = NT%) 81.6 % 56.0-77.0 H IMMATURE GRANULOCYTE % (test 0.5 % 0.0-2.0 N code = IG%) LYMPHOCYTE % (test code = LY%) 10.2 % 14.0-32.0 L MONOCYTE % (test code = MO%) 7.6 % 4.8-9.0 N EOSINOPHIL % (test code = EO%) 0.0 % 0.3-3.7 L BASOPHIL % (test code = BA%) 0.1 % 0.0-2.0 N NUCLEATED RBC % (test code = 0.0 % 0-0 N NRBC%) NEUTROPHIL # (test code = NT#) 10.24 x10 3/uL 2.0-7.6 H IMMATURE GRANULOCYTE # (test 0.06 x10 3/uL 0.00-0.03 H code = IG#) LYMPHOCYTE # (test code = LY#) 1.28 x10 3/uL 1.0-3.8 N MONOCYTE # (test code = MO#) 0.95 x10 3/uL 0.1-0.8 H EOSINOPHIL # (test code = EO#) 0.00 x10 3/uL 0.0-0.2 N BASOPHIL # (test code = BA#) 0.01 x10 3/uL 0.0-0.2 N NUCLEATED RBC # (test code = 0.00 x10 3/uL 0.0-0.1 N NRBC#) MANUAL DIFF REQUIRED (test NO code = MDIFF) GLUCOSE [id number] 08:41:00 Test Item Value Reference Range Interpretation Comments GLUCOSE BEDSIDE (test 201 MG/DL 70-110 H Perfor med by certified code = GLUBED) 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 [facility] THROMBOPLASTIN TIME [id number] 08:31:00 Test Item Value Reference Range Interpretation Comments THROMBOPLASTIN TIME 115.0 Seconds 25.0-39.5 H The rapeutic PARTIAL (test code = Range: 50.4 - 88.3 PTT) Seconds Effective 06/26/2018 THROMBOPLASTIN TIME [id number] 05:47:00 Test Item Value Reference Range Interpretation Comments THROMBOPLASTIN TIME 129.9 Seconds 25.0-39.5 H The rapeutic PARTIAL (test code = Range: 50.4 - 88.3 PTT) Seconds Effective 06/26/2018 BASIC METABOLIC [id number] 05:47:00 Test Item Value Reference Range Interpretation Comments SODIUM (test code = NA) 136 mEq/L 134-147 N POTASSIUM (test code = 4.2 mEq/L 3.4-5.0 N K) CHLORIDE (test code = 108 mEq/L 100-108 N CL) CARBON DIOXIDE (test 19 mEq/l 21-33 L code = CO2) ANION GAP (test code = 13 0-20 N GAP) GLUCOSE (test code = 263 mg/dL 70-110 H GLU) BLOOD UREA NITROGEN 10 mg/dL 7-18 N (test code = BUN) GLOMERULAR FILTRATION 50.8 90-95 L Units of measure = RATE (test code = GFR) ml/mi n/1.73 m2 CREATININE (test code = 1.1 mg/dL 0.6-1.3 N CREAT) CALCIUM (test code = 8.2 mg/dL 8.0-10.5 N CA) [id number] 05:47:00 Test Item Value Reference Range Interpretation Comments MAGNESIUM (test code = MAG) 1.79 mg/dL 1.80-2.40 L CBC W/AUTO [id number] 05:25:00 Test Item Value Reference Range Interpretation Comments WHITE BLOOD CELL (test code = 16.1 x10 3/uL 4.5-11.0 H WBC) RED BLOOD CELL (test code = 3.80 x10 6/uL 3.54-5.02 N RBC) HEMOGLOBIN (test code = HGB) 10.8 g/dL 11.0-15.0 L HEMATOCRIT (test code = HCT) 33.9 % 33.0-45.0 N MEAN CELL VOLUME (test code = 89.2 fL 81.0-99.0 N MCV) MEAN CELL HGB (test code = 28.4 pg 27.0-33.0 N MCH) MEAN CELL HGB CONCETRATION 31.9 g/dL 33.0-37.0 L (test code = MCHC) RED CELL DISTRIBUTION WIDTH CV 15.7 % 11.5-14.5 H (test code = RDW) RED CELL DISTRIBUTION WIDTH SD 50.5 fL 37.0-54.0 N (test code = RDW-SD) PLATELET COUNT (test code = 233 x10 3/uL 150-400 N PLT) MEAN PLATELET VOLUME (test 9.4 fL 7.0-9.0 H code = MPV) NEUTROPHIL % (test code = NT%) 86.4 % 56.0-77.0 H IMMATURE GRANULOCYTE % (test 0.6 % 0.0-2.0 N code = IG%) LYMPHOCYTE % (test code = LY%) 5.4 % 14.0-32.0 L MONOCYTE % (test code = MO%) 7.5 % 4.8-9.0 N EOSINOPHIL % (test code = EO%) 0.0 % 0.3-3.7 L BASOPHIL % (test code = BA%) 0.1 % 0.0-2.0 N NUCLEATED RBC % (test code = 0.0 % 0-0 N NRBC%) NEUTROPHIL # (test code = NT#) 13.91 x10 3/uL 2.0-7.6 H IMMATURE GRANULOCYTE # (test 0.10 x10 3/uL 0.00-0.03 H code = IG#) LYMPHOCYTE # (test code = LY#) 0.87 x10 3/uL 1.0-3.8 L MONOCYTE # (test code = MO#) 1.21 x10 3/uL 0.1-0.8 H EOSINOPHIL # (test code = EO#) 0.00 x10 3/uL 0.0-0.2 N BASOPHIL # (test code = BA#) 0.01 x10 3/uL 0.0-0.2 N NUCLEATED RBC # (test code = 0.00 x10 3/uL 0.0-0.1 N NRBC#) MANUAL DIFF REQUIRED (test NO code = MDIFF) COMMENTS: Hemoglobin plasma every am while on Impella support.COMMENTS: Daily while on HeparinTHROMBOPLASTIN TIME [id number] 02:34:00 Test Item Value Reference Range Interpretation Comments THROMBOPLASTIN TIME 45.4 Seconds 25.0-39.5 H Ther apeutic PARTIAL (test code = Range: 50.4 - 88.3 PTT) Seconds Effective 06/26/2018 THROMBOPLASTIN TIME [id number] 22:54:00 Test Item Value Reference Range Interpretation Comments THROMBOPLASTIN TIME 33.3 Seconds 25.0-39.5 Ther apeutic PARTIAL (test code = Range: 50.4 - 88.3 PTT) Seconds Effective 06/26/2018 THROMBOPLASTIN TIME [id number] 21:14:00 Test Item Value Reference Range Interpretation Comments THROMBOPLASTIN TIME 65.5 Seconds 25.0-39.5 H Ther apeutic PARTIAL (test code = Range: 50.4 - 88.3 PTT) Seconds Effective 06/26/2018 GLUCOSE [id number] 20:25:00 Test Item Value Reference Range Interpretation Comments GLUCOSE BEDSIDE (test 316 MG/DL 70-110 H Perfor med by certified code = GLUBED) 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 [facility] THROMBOPLASTIN TIME [id number] 20:19:00 Test Item Value Reference Range Interpretation Comments THROMBOPLASTIN TIME 104.0 Seconds 25.0-39.5 H The rapeutic PARTIAL (test code = Range: 50.4 - 88.3 PTT) Seconds Effective 06/26/2018 CBC W/AUTO [id number] 20:07:00 Test Item Value Reference Range Interpretation Comments WHITE BLOOD CELL (test code = 11.2 x10 3/uL 4.5-11.0 H WBC) RED BLOOD CELL (test code = 3.83 x10 6/uL 3.54-5.02 N RBC) HEMOGLOBIN (test code = HGB) 10.8 g/dL 11.0-15.0 L HEMATOCRIT (test code = HCT) 33.9 % 33.0-45.0 N MEAN CELL VOLUME (test code = 88.5 fL 81.0-99.0 N MCV) MEAN CELL HGB (test code = 28.2 pg 27.0-33.0 N MCH) MEAN CELL HGB CONCETRATION 31.9 g/dL 33.0-37.0 L (test code = MCHC) RED CELL DISTRIBUTION WIDTH CV 15.4 % 11.5-14.5 H (test code = RDW) RED CELL DISTRIBUTION WIDTH SD 49.1 fL 37.0-54.0 N (test code = RDW-SD) PLATELET COUNT (test code = 241 x10 3/uL 150-400 N PLT) MEAN PLATELET VOLUME (test 9.6 fL 7.0-9.0 H code = MPV) NEUTROPHIL % (test code = NT%) 89.8 % 56.0-77.0 H IMMATURE GRANULOCYTE % (test 0.4 % 0.0-2.0 N code = IG%) LYMPHOCYTE % (test code = LY%) 6.3 % 14.0-32.0 L MONOCYTE % (test code = MO%) 3.4 % 4.8-9.0 L EOSINOPHIL % (test code = EO%) 0.0 % 0.3-3.7 L BASOPHIL % (test code = BA%) 0.1 % 0.0-2.0 N NUCLEATED RBC % (test code = 0.0 % 0-0 N NRBC%) NEUTROPHIL # (test code = NT#) 10.08 x10 3/uL 2.0-7.6 H IMMATURE GRANULOCYTE # (test 0.05 x10 3/uL 0.00-0.03 H code = IG#) LYMPHOCYTE # (test code = LY#) 0.71 x10 3/uL 1.0-3.8 L MONOCYTE # (test code = MO#) 0.38 x10 3/uL 0.1-0.8 N EOSINOPHIL # (test code = EO#) 0.00 x10 3/uL 0.0-0.2 N BASOPHIL # (test code = BA#) 0.01 x10 3/uL 0.0-0.2 N NUCLEATED RBC # (test code = 0.00 x10 3/uL 0.0-0.1 N NRBC#) MANUAL DIFF REQUIRED (test NO code = MDIFF) COMMENTS: IF NOT ALREADY DONE WITHIN THE LAST 24 HOURSTHROMBOPLASTIN TIME [id number] 19:07:00 Test Item Value Reference Range Interpretation Comments THROMBOPLASTIN TIME > 200.0 25.0-39.5 H Ther apeutic PARTIAL (test code = Seconds Range: 50.4 - 88.3 PTT) Seconds Effective 06/26/2018 COMMENTS: Start 2hrs post procedure check q1hr until 2 results in range, then [id number] 17:11:00 Test Item Value Reference Range Interpretation Comments GLUCOSE BEDSIDE (test 365 MG/DL 70-110 H Perfor med by certified code = GLUBED) 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 [facility] THROMBOPLASTIN TIME [id number] 17:04:00 Test Item Value Reference Range Interpretation Comments THROMBOPLASTIN TIME > 200.0 25.0-39.5 H Ther apeutic PARTIAL (test code = Seconds Range: 50.4 - 88.3 PTT) Seconds Effective 06/26/2018 COMMENTS: Start 2hrs post procedure check q1hr until 2 results in range, then [id number] 15:09:00 Test Item Value Reference Range Interpretation Comments ACT-ISTAT (test code 267 SEC 74-137 H Perform ed by certified = ACTI) 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 [facility] [id number] 14:22:00 Test Item Value Reference Range Interpretation Comments ACT-ISTAT (test code 255 SEC 74-137 H Perform ed by certified = ACTI) 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 [facility] [id number] 13:52:00 Test Item Value Reference Range Interpretation Comments ACT-ISTAT (test code 362 SEC 74-137 H Perform ed by certified = ACTI) 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 [facility] [id number] 13:38:00 Test Item Value Reference Range Interpretation Comments ACT-ISTAT (test code 237 SEC 74-137 H Perform ed by certified = ACTI) 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 [facility] [id number] 13:04:00 Test Item Value Reference Range Interpretation Comments ACT-ISTAT (test code 273 SEC 74-137 H Perform ed by certified = ACTI) 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 [facility] [id number] 12:41:00 Test Item Value Reference Range Interpretation Comments ACT-ISTAT (test code 315 SEC 74-137 H Perform ed by certified = ACTI) 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 [facility] GLUCOSE [id number] 11:42:00 Test Item Value Reference Range Interpretation Comments GLUCOSE BEDSIDE (test 332 MG/DL 70-110 H Perfor med by certified code = GLUBED) 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 PROTHROMBIN [id number] 13:57:00 Test Item Value Reference Range Interpretation Comments PROTHROMBIN TIME 12.0 SECONDS 9.3-12.9 N PATIENT (test code = PTP) INTERNATIONAL NORMAL 1.1 0.8-1.2 N TARGET RATIO (test code = INR BY IN DICATION INR) Indication INR1. Prophyl axis of venous thrombos is 2.0 - 3. 0 (orthopedic akshat juvencio), Prophylaxis of venous thrombos is (other than hig h-risk surgery), Niki tment of Deep Vein Thrombosis/Pulm onary Embolism, Preve ntion of systemic emb olism - Tissue heart va lves, Acute Myocardia l Infarction (to prevent systemic embo lism), Valvular heart disease, Atri al Fibrillation, Bileaflet mecha nical valve in aortic position.2. Mec hanical prosthetic valv es (high risk), 2.5 - 3.5 Presence of Lupus Anticoagu lant or Antiphospholi pid Antibodies, Pre vention of systemic e mbolism - Acute Myocard ial Infarction (t o prevent recurre nt infarct). BASIC METABOLIC [id number] 13:47:00 Test Item Value Reference Range Interpretation Comments SODIUM (test code = NA) 139 mEq/L 134-147 N POTASSIUM (test code = 4.5 mEq/L 3.4-5.0 N K) CHLORIDE (test code = 105 mEq/L 100-108 N CL) CARBON DIOXIDE (test 28 mEq/l 21-33 N code = CO2) ANION GAP (test code = 10 0-20 N GAP) GLUCOSE (test code = 237 mg/dL 70-110 H GLU) BLOOD UREA NITROGEN 18 mg/dL 7-18 N (test code = BUN) GLOMERULAR FILTRATION 46.0 90-95 L Units of measure = RATE (test code = GFR) ml/mi n/1.73 m2 CREATININE (test code = 1.2 mg/dL 0.6-1.3 N CREAT) CALCIUM (test code = 8.9 mg/dL 8.0-10.5 N CA) CBC W/AUTO [id number] 13:35:00 Test Item Value Reference Range Interpretation Comments WHITE BLOOD CELL (test code = 6.4 x10 3/uL 4.5-11.0 WBC) RED BLOOD CELL (test code = 3.87 x10 6/uL 3.54-5.02 N RBC) HEMOGLOBIN (test code = HGB) 10.9 g/dL 11.0-15.0 L HEMATOCRIT (test code = HCT) 34.1 % 33.0-45.0 N MEAN CELL VOLUME (test code = 88.1 fL 81.0-99.0 N MCV) MEAN CELL HGB (test code = MCH) 28.2 pg 27.0-33.0 N MEAN CELL HGB CONCETRATION 32.0 g/dL 33.0-37.0 L (test code = MCHC) RED CELL DISTRIBUTION WIDTH CV 15.4 % 11.5-14.5 H (test code = RDW) RED CELL DISTRIBUTION WIDTH SD 49.5 fL 37.0-54.0 N (test code = RDW-SD) PLATELET COUNT (test code = 244 x10 3/uL 150-400 N PLT) MEAN PLATELET VOLUME (test code 9.6 fL 7.0-9.0 H = MPV) NEUTROPHIL % (test code = NT%) 48.6 % 56.0-77.0 L IMMATURE GRANULOCYTE % (test 0.3 % 0.0-2.0 N code = IG%) LYMPHOCYTE % (test code = LY%) 39.3 % 14.0-32.0 H MONOCYTE % (test code = MO%) 8.4 % 4.8-9.0 N EOSINOPHIL % (test code = EO%) 3.1 % 0.3-3.7 N BASOPHIL % (test code = BA%) 0.3 % 0.0-2.0 N NUCLEATED RBC % (test code = 0.0 % 0-0 N NRBC%) NEUTROPHIL # (test code = NT#) 3.12 x10 3/uL 2.0-7.6 N IMMATURE GRANULOCYTE # (test 0.02 x10 3/uL 0.00-0.03 N code = IG#) LYMPHOCYTE # (test code = LY#) 2.52 x10 3/uL 1.0-3.8 N MONOCYTE # (test code = MO#) 0.54 x10 3/uL 0.1-0.8 N EOSINOPHIL # (test code = EO#) 0.20 x10 3/uL 0.0-0.2 N BASOPHIL # (test code = BA#) 0.02 x10 3/uL 0.0-0.2 N NUCLEATED RBC # (test code = 0.00 x10 3/uL 0.0-0.1 N NRBC#) MANUAL DIFF REQUIRED (test code NO = MDIFF) GLUCOSE [id number] 16:18:00 Test Item Value Reference Range Interpretation Comments GLUCOSE BEDSIDE (test 227 MG/DL 70-110 H Perfor med by certified code = GLUBED) 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 [facility] TROP-I HIGH [id number] 16:11:00 Test Item Value Reference Range Interpretation Comments TROP-I HIGH 1599 ng/L 0-34 HH CAUTION: Units of the SENSITIVITY (test current te st methodology code = TROPIHS) (ng/L) diffe rfrom the prior test meth odology (ng/mL) by a fa ctor of 1000. 99t h Percentile Uppe r Reference Limit (URL): Fe males: 34 ng/LMales: 54 ng/L In order to distin guish acute elevations of h igh sensitivitytrop onin from other clinical conditions, the FourthUnive rsal Definition of M yocardial Infarction stressesclinica l assessment and the demonstration o f a rise and/orfall in s erial troponin result s above the URL. These resu lts were obtained using [employer] IM TnI Hreagent. Results from di fferent methodologies s hould not becompared to o ne another as quantitative results and URLs mayvar y by method. LIPOPROTEIN [id number] 15:14:00 Test Item Value Reference Range Interpretation Comments LIPOPROTEIN LDL 56.8 mg/dL 0-100 N <100 OPT [id number] (test code = LDL) NEAR OPTIM AL/ABOVE [id number] 89 HIGH>VT=564 VE RY HIGH*Guidelines provided by the National Cholesterol EducationProgra m Adult Treatment Panel III TROP-I HIGH [id number] 14:57:00 Test Item Value Reference Range Interpretation Comments TROP-I HIGH 1583 ng/L 0-34 HH Critical result called to SENSITIVITY (test CARLEE Duran code = TROPIHS) ELY.JN1 at 1454 05/13/21Nurse r ead back result and tech confirmed it's correct? Y ESCAUTION: Units of the cu rrent test methodology (ng /L) differfrom the prior test methodology (ng /mL) by a factor of 1000. 99t h Percentile Uppe r Reference Limit (URL): Fe males: 34 ng/LMales: 54 ng/L In order to distin guish acute elevations of h igh sensitivitytrop onin from other clinical conditions, the FourthUnive rsal Definition of M yocardial Infarction stressesclinica l assessment and the demonstration o f a rise and/orfall in s erial troponin result s above the URL. These resu lts were obtained using [employer] IM TnI Hreagent. Results from di fferent methodologies s hould not becompared to o ne another as quantitative results and URLs mayvar y by method. GLUCOSE [id number] 11:56:00 Test Item Value Reference Range Interpretation Comments GLUCOSE BEDSIDE (test 241 MG/DL 70-110 H Perfor med by certified code = GLUBED) 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 GLUCOSE [id number] 08:03:00 Test Item Value Reference Range Interpretation Comments GLUCOSE BEDSIDE (test 209 MG/DL 70-110 H Perfor med by certified code = GLUBED) 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 BASIC METABOLIC [id number] 04:59:00 Test Item Value Reference Range Interpretation Comments SODIUM (test code = NA) 142 mEq/L 134-147 N POTASSIUM (test code = 4.9 mEq/L 3.4-5.0 N K) CHLORIDE (test code = 108 mEq/L 100-108 N CL) CARBON DIOXIDE (test 24 mEq/l 21-33 N code = CO2) ANION GAP (test code = 14 0-20 N GAP) GLUCOSE (test code = 243 mg/dL 70-110 H GLU) BLOOD UREA NITROGEN 16 mg/dL 7-18 N (test code = BUN) GLOMERULAR FILTRATION 56.7 90-95 L Units of measure = RATE (test code = GFR) ml/mi n/1.73 m2 CREATININE (test code = 1.0 mg/dL 0.6-1.3 N CREAT) CALCIUM (test code = 9.2 mg/dL 8.0-10.5 N CA) CBC W/AUTO [id number] 04:50:00 Test Item Value Reference Range Interpretation Comments WHITE BLOOD CELL (test code = 12.0 x10 3/uL 4.5-11.0 H WBC) RED BLOOD CELL (test code = 4.11 x10 6/uL 3.54-5.02 N RBC) HEMOGLOBIN (test code = HGB) 11.5 g/dL 11.0-15.0 N HEMATOCRIT (test code = HCT) 35.6 % 33.0-45.0 N MEAN CELL VOLUME (test code = 86.6 fL 81.0-99.0 N MCV) MEAN CELL HGB (test code = MCH) 28.0 pg 27.0-33.0 N MEAN CELL HGB CONCETRATION 32.3 g/dL 33.0-37.0 L (test code = MCHC) RED CELL DISTRIBUTION WIDTH CV 15.7 % 11.5-14.5 H (test code = RDW) RED CELL DISTRIBUTION WIDTH SD 49.9 fL 37.0-54.0 N (test code = RDW-SD) PLATELET COUNT (test code = 260 x10 3/uL 150-400 N PLT) MEAN PLATELET VOLUME (test code 9.5 fL 7.0-9.0 H = MPV) NEUTROPHIL % (test code = NT%) 83.0 % 56.0-77.0 H IMMATURE GRANULOCYTE % (test 0.3 % 0.0-2.0 N code = IG%) LYMPHOCYTE % (test code = LY%) 9.7 % 14.0-32.0 L MONOCYTE % (test code = MO%) 6.9 % 4.8-9.0 N EOSINOPHIL % (test code = EO%) 0.0 % 0.3-3.7 L BASOPHIL % (test code = BA%) 0.1 % 0.0-2.0 N NUCLEATED RBC % (test code = 0.0 % 0-0 N NRBC%) NEUTROPHIL # (test code = NT#) 9.92 x10 3/uL 2.0-7.6 H IMMATURE GRANULOCYTE # (test 0.04 x10 3/uL 0.00-0.03 H code = IG#) LYMPHOCYTE # (test code = LY#) 1.16 x10 3/uL 1.0-3.8 N MONOCYTE # (test code = MO#) 0.82 x10 3/uL 0.1-0.8 H EOSINOPHIL # (test code = EO#) 0.00 x10 3/uL 0.0-0.2 N BASOPHIL # (test code = BA#) 0.01 x10 3/uL 0.0-0.2 N NUCLEATED RBC # (test code = 0.00 x10 3/uL 0.0-0.1 N NRBC#) MANUAL DIFF REQUIRED (test code NO = MDIFF) GLUCOSE [id number] 20:31:00 Test Item Value Reference Range Interpretation Comments GLUCOSE BEDSIDE (test 339 MG/DL 70-110 H Perfor med by certified code = GLUBED) 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 [place] [id number] 15:58:00 Test Item Value Reference Range Interpretation Comments ACT-ISTAT (test code 154 SEC 74-137 H Perform ed by certified = ACTI) 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 [place] [id number] 15:05:00 Test Item Value Reference Range Interpretation Comments ACT-ISTAT (test code 178 SEC 74-137 H Perform ed by certified = ACTI) 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 [facility] [id number] 11:02:00 Test Item Value Reference Range Interpretation Comments ACT-ISTAT (test code 321 SEC 74-137 H Perform ed by certified = ACTI) 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 [facility] GLUCOSE [id number] 09:52:00 Test Item Value Reference Range Interpretation Comments GLUCOSE BEDSIDE (test 147 MG/DL 70-110 H [facility] by certified code = GLUBED) 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 [facility] BASIC METABOLIC [id number] 14:34:00 Test Item Value Reference Range Interpretation Comments SODIUM (test code = NA) 141 mEq/L 134-147 N POTASSIUM (test code = 3.9 mEq/L 3.4-5.0 N K) CHLORIDE (test code = 105 mEq/L 100-108 N CL) CARBON DIOXIDE (test 27 mEq/l 21-33 N code = CO2) ANION GAP (test code = 13 0-20 N GAP) GLUCOSE (test code = 136 mg/dL 70-110 H GLU) BLOOD UREA NITROGEN 15 mg/dL 7-18 N (test code = BUN) GLOMERULAR FILTRATION 56.7 90-95 L Units of measure = RATE (test code = GFR) ml/mi n/1.73 m2 CREATININE (test code = 1.0 mg/dL 0.6-1.3 N CREAT) CALCIUM (test code = 8.8 mg/dL 8.0-10.5 N CA) PROTHROMBIN [id number] 14:28:00 Test Item Value Reference Range Interpretation Comments PROTHROMBIN TIME 12.0 SECONDS 9.3-12.9 N PATIENT (test code = PTP) INTERNATIONAL NORMAL 1.1 0.8-1.2 N TARGET RATIO (test code = INR BY IN DICATION INR) Indication INR1. Prophyl axis of venous thrombos is 2.0 - 3. 0 (orthopedic akshat juvencio), Prophylaxis of venous thrombos is (other than hig h-risk surgery), Niki tment of Deep Vein Thrombosis/Pulm onary Embolism, Preve ntion of systemic emb olism - Tissue heart va lves, Acute Myocardia l Infarction (to prevent systemic embo lism), Valvular heart disease, Atri al Fibrillation, Bileaflet mecha nical valve in aortic position.2. Mec hanical prosthetic valv es (high risk), 2.5 - 3.5 Presence of Lupus Anticoagu lant or Antiphospholi pid Antibodies, Pre vention of systemic e mbolism - Acute Myocard ial Infarction (t o prevent recurre nt infarct). CBC W/AUTO [id number] 14:20:00 Test Item Value Reference Range Interpretation Comments WHITE BLOOD CELL (test code = 7.4 x10 3/uL 4.5-11.0 N WBC) RED BLOOD CELL (test code = 4.55 x10 6/uL 3.54-5.02 N RBC) HEMOGLOBIN (test code = HGB) 12.4 g/dL 11.0-15.0 N HEMATOCRIT (test code = HCT) 39.3 % 33.0-45.0 N MEAN CELL VOLUME (test code = 86.4 fL 81.0-99.0 N MCV) MEAN CELL HGB (test code = MCH) 27.3 pg 27.0-33.0 N MEAN CELL HGB CONCETRATION 31.6 g/dL 33.0-37.0 L (test code = MCHC) RED CELL DISTRIBUTION WIDTH CV 15.7 % 11.5-14.5 H (test code = RDW) PLATELET COUNT (test code = 267 x10 3/uL 150-400 N PLT) NEUTROPHIL % (test code = NT%) 71.1 % 56.0-77.0 N LYMPHOCYTE % (test code = LY%) 16.7 % 14.0-32.0 N NEUTROPHIL # (test code = NT#) 5.25 x10 3/uL 2.0-7.6 N LYMPHOCYTE # (test code = LY#) 1.23 x10 3/uL 1.0-3.8 N MANUAL DIFF REQUIRED (test code NO = MDIFF) RED CELL DISTRIBUTION WIDTH SD 49.3 fL 37.0-54.0 N (test code = RDW-SD) MEAN PLATELET VOLUME (test code 9.4 fL 7.0-9.0 H = MPV) IMMATURE GRANULOCYTE % (test 0.3 % 0.0-2.0 N code = IG%) MONOCYTE % (test code = MO%) 8.4 % 4.8-9.0 N EOSINOPHIL % (test code = EO%) 3.0 % 0.3-3.7 N BASOPHIL % (test code = BA%) 0.5 % 0.0-2.0 N NUCLEATED RBC % (test code = 0.0 % 0-0 N NRBC%) IMMATURE GRANULOCYTE # (test 0.02 x10 3/uL 0.00-0.03 N code = IG#) MONOCYTE # (test code = MO#) 0.62 x10 3/uL 0.1-0.8 N EOSINOPHIL # (test code = EO#) 0.22 x10 3/uL 0.0-0.2 H BASOPHIL # (test code = BA#) 0.04 x10 3/uL 0.0-0.2 N NUCLEATED RBC # (test code = 0.00 x10 3/uL 0.0-0.1 N NRBC#) - XR CHEST 2 [id number] 00:00:[address] [facility] : 1960 Sex: F FAX: Dany Dean MD [phone] [place]: St: REG Name: MARINA YEN [facility] : 1960 Age/S: 61/F [address] [place] [address] Unit #: [id number] Loc: [place] [address] Phys: Dany Mcdonald MD Acct: [id number] Dis Date:Status: REG [facility] PHONE #: [phone] Exam Date: 05/10/20211451 FAX #: [phone] Reason: PREOP EXAMS: CPT CODE: [id number] XR CHEST 2 V 15379 PROCEDURE INFORMATION: Exam: XR Chest Exam date and time: 05/10/2021 2:38 PM Age: 61 years old Clinical indication: Pre-operative exam; Respiratory screening exam; Additional info: Preop TECHNIQUE: Imaging protocol: XR of the chest. Views: 2 views. PA and Lateral COMPARISON: No relevant prior studies available. FINDINGS: Lungs: There are normal lung volumes without consolidation or interstitial oppacities. Pleural spaces: No pleural effusion. No pneumot horax. Heart/Mediastinum: The heart size is normal. Vasculature: Aortic calcificationsare present. Bones/joints: Mild degenerative changes in thoracic spine. IMPRESSION: No acute cardiopulmonary process. at 2310 Repor agnes and signed by: Felton Michelle M.D. CC: Dany Mcdonald MD Technologist: José Miguel Bustos RT(R) Trnscrd Date/Time/By: 05/10/2021(2309) : By: [email or web address] Orig Print D/T: S: 05/10/2021 (2309) PAGE 1 Signed ReportPOCT-GLUCOSE [id number] 21:54:00 Test Item Value Reference Range Interpretation Comments POC-GLUCOSE METER 194 mg/dL 70-110 H TESTED AT [place] [address] ([facility]) (test code = [place] [facility] 1538) [address] POCT-GLUCOSE [id number] 16:50:00 Test Item Value Reference Range Interpretation Comments POC-GLUCOSE METER 134 mg/dL 70-110 H TESTED AT [place] [address] ([facility]) (test code = [place] [facility] 1538) [address] POCT-GLUCOSE [id number] 12:10:00 Test Item Value Reference Range Interpretation Comments POC-GLUCOSE METER 155 mg/dL 70-110 H TESTED AT [place] [address] ([facility]) (test code = ALEXANDRONC Cristo [facility] 1538) [address] POCT-GLUCOSE [id number] 05:34:00 Test Item Value Reference Range Interpretation Comments POC-GLUCOSE METER 249 mg/dL 70-110 H TESTED AT [place] [address] ([facility]) (test code = ALEXANDRONC Cristo [facility] 1538) [address] POCT-GLUCOSE [id number] 00:09:00 Test Item Value Reference Range Interpretation Comments POC-GLUCOSE METER 236 mg/dL 70-110 H TESTED AT [place] [address] ([facility]) (test code = [place] [facility] 1538) [address] POCT-GLUCOSE [id number] 21:17:00 Test Item Value Reference Range Interpretation Comments POC-GLUCOSE METER 153 mg/dL 70-110 H TESTED AT [place] [address] ([facility]) (test code = [place] [facility] 1538) [address] POCT-GLUCOSE [id number] 18:23:00 Test Item Value Reference Range Interpretation Comments POC-GLUCOSE METER 148 mg/dL 70-110 H TESTED AT [place] [address] ([facility]) (test code = [place] [facility] 1538) [address] FL, UGI, WITHOUT [id number] 17:33:00Reason for exam:->Please evaluate with thin barium [...] Esophageal peristalsis was normal. Signed: Hudson Lord MDRort Verified Date/Time: 10/16/2018 17:33:25 Reading Location: [facility] C013X [facility] Consult Reading Room -GLUCOSE [id number] 05:59:00 Test Item Value Reference Range Interpretation Comments POC-GLUCOSE METER 192 mg/dL 70-110 H TESTED AT [place] [address] ([facility]) (test code = [place] [facility] 1538) [address] POCT-GLUCOSE [id number] 00:39:00 Test Item Value Reference Range Interpretation Comments POC-GLUCOSE METER 172 mg/dL 70-110 H TESTED AT [place] [address] ([facility]) (test code = [place] [facility] 1538) [address] POCT-GLUCOSE [id number] 22:13:00 Test Item Value Reference Range Interpretation Comments POC-GLUCOSE METER 187 mg/dL 70-110 H TESTED AT [facility] 6720 (BEJANNA) (test code = [place] [facility] 1538) [address] RAD, CHEST, 1 VIEW, NON [id number] 18:59:00Reason for exam:->preopShould this be performed at [...] MDReport Verified Date/Time: 10/15/2018 18:59:09 Reading Location: [place] [address] [facility] Consult Reading Room BASI METABOLIC [id number] 18:46:00 Test Item Value Reference Range Interpretation [...] NOT APPLICABLE FOR DIALYSIS PATIEN TS. HEMOGLOBIN [id number] 18:36:00 Test Item Value Reference Range Interpretation Comments HEMOGLOBIN A1C (BEAKER) (test code = 9.7 % 4.3-6.1 H 368) POCT-GLUCOSE [id number] 18:14:00 Test Item Value Reference Range Interpretation Comments POC-GLUCOSE METER 207 mg/dL 70-110 H TESTED AT [facility] 6720 (BEAKER) (test code = [place] 1538) [address] CBC W/PLT COUNT & AUTO [id number] 18:13:00 Test Item Value Reference Range Interpretation [...] % 0-1 PERCENT (BEAKER) (test code = 2347)
[2021-07-12 21:15] LABS: Absolute Lymphocytes (CBC) 1.4 K/uL (0.7-4.9); Hematocrit 29.7 % (36.0-45.0); Lymphocytes % 16.9 % (15.3-44.8); RBC Red Blood Cell Count 3.33 M/uL (3.86-4.86)
[2021-07-12 21:18] LABS: Protime INR 0.95
[2021-07-12 21:36] LABS: ALT/SGPT 21 U/L (12-78); AST/SGOT 17 U/L (15-37); Albumin 3.1 g/dL (3.4-5.0); Alkaline Phosphatase 119 U/L (45-117); BUN Blood Urea Nitrogen 19 mg/dL (7-18); Bicarbonate 24 mmol/L (21-32); Bilirubin Total 0.3 mg/dL (0.2-1.0); Glucose Level 264 mg/dL (74-106); Magnesium 1.7 mg/dL (1.8-2.4); NT PRO-BNP 1695 pg/mL (<125); Potassium 4.1 mmol/L (3.5-5.1); Protein, Total 7.2 g/dL (6.4-8.2); Sodium Level 137 mmol/L (136-145)
--- NOTE | 2021-07-12 21:36 | RAD REPORT ---
EXAM DESCRIPTION: RAD - Chest Single View - 07/12/2021 9:16 pm CLINICAL HISTORY: shortness of breath COMPARISON: Portable 04/12/2021 TECHNIQUE: AP portable chest image was obtained 07/12/2021 9:16 pm . FINDINGS: Under penetrated technique and overlying soft tissues accentuate lung markings. Increased interstitial opacification is seen in the lung begum with airspace opacities in the mid and lower ri ght lung field. Heart size within range of normal. No abnormal vascular engorgement. Trachea is midli ne. No measurable pleural effusion and no pneumothorax. No acute bony abnormality seen. No acute aort ic findings suspected. IMPRESSION: Increased interstitial markings throughout the lung begum with increased airspace opaci ties in the mid and lower right lung field. Right-sided pneumonia is the most likely etiology. A asymmetric pulmonary edema pattern is possible.
[2021-07-12 21:44] LABS: Bilirubin Direct < 0.1 mg/dL (0-0.2)
[2021-07-12 21:46] LABS: Troponin High Sensitivity 69.7 pg/mL (<58.9)
[2021-07-12] MEDS ORDERED: VANCOMYCIN 1 GM/VIAL ONE (22:15)
[2021-07-12] MEDS ORDERED: FUROSEMIDE 40 MG/4 ML VIAL ONE (22:15)
[2021-07-12] MEDS ORDERED: FAMOTIDINE 20 MG/2 ML VIAL IV ONE (22:16)
[2021-07-12] MEDS ORDERED: NA CHLORIDE 0.9% 100 ML IV ONE (22:16)
[2021-07-12] MEDS ORDERED: NA CHLORIDE 0.9% 250 ML ONE (22:16)
[2021-07-12] MEDS ORDERED: NA CHLORIDE 0.9% 1,000 ML ONE (22:16)
[2021-07-12] MEDS ORDERED: CEFEPIME 1 GM/VIAL ONE (22:17)
[2021-07-12 23:41] LABS: Urine Blood Trace-intact (Negative); Urine Glucose 3+ (Negative); Urine Protein Trace (Negative); Urine Specific Gravity >=1.030 (1.005-1.030); Urine pH 5.5 (5.0-7.0)
--- NOTE | 2021-07-12 23:59 | ER ---
Nurse's Notes [facility] Name: Tamy Martinez Age: 61 yrs Sex: Female : 1960 Arrival Date: 07/12/2021 Time: 20:21 Bed 2 Private MD: Diagnosis: Chest pain on breathing;Anemia, unspecified;Dyspnea;Hypomagnesemia;Type 1 diabetes mellitus with hyperglycemia;UTI/ Urinary tract infection, site not specified;Pneumonia, unspecified organism-bilateral Presentation: 07/12 20:21 Chief complaint: EMS states: pt has past history of cardiac stents 3 weeks ago, [place], as6 hypertension CVA, and RA with EMS due to shortness of breath. no past respiratory issues. 4 of Zofran given en route for nausea. Coronavirus screen: Vaccine status: Patient reports being unvaccinated. At this time, the client does not indicate any symptoms associated with coronavirus-19. Ebola Screen: No symptoms or risks identified at this time. Initial Sepsis Screen: Does the patient meet any 2 criteria? No. Patient's initial sepsis screen is negative. Does the patient have a suspected source of infection? No. Patient's initial sepsis screen is negative. Risk Assessment: Do you want to hurt yourself or someone else? Patient reports no desire to harm self or others. Onset of symptoms was July 12, 2021. 20:21 Method Of Arrival: EMS: [facility] as6 20:21 Acuity: HODAN 2 kd3 Triage Assessment: 20:27 General: Appears uncomfortable, Behavior is anxious. Pain: Complains of pain in chest as6 pain on inspiration. Neuro: Level of Consciousness is awake, alert, obeys commands, Oriented to person, place, time, situation. Cardiovascular: Patient's skin is warm and dry. Respiratory: Airway is patent Trachea midline Respiratory effort is with retractions, using tripod position, Respiratory pattern is regular. Historical: - Allergies: 20:27 Iodinated Contrast Media - IV Dye; as6 - Home Meds: 20:27 aspirin 81 mg Oral TbEC once daily [Active]; isosorbide dinitrate 10 mg Oral tab as6 [Active]; Lantus 100 unit/mL Sub-Q soln 26 unit nightly [Active]; losartan 25 mg Oral tab once daily [Active]; methotrexate sodium 2.5 mg Oral tab [Active]; Novolog Sub-Q sliding scale [Active]; Plavix 75 mg Oral tab once daily [Active]; Tresiba U-100 Insulin 100 unit/mL subcutaneous soln [Active]; Xeljanz 11 mg Oral daily [Active]; - PMHx: 20:27 Diabetes - IDDM; Hypertension; Hypertension resolved after lap band; Myocardial as6 infarction; Rheumatoid Arthritis; - Immunization history:: Adult Immunizations up to date, Client reports having NOT received the Covid vaccine. - Social history:: Smoking status: Patient denies any tobacco usage or history of. - Family history:: not pertinent. Screenin:29 Abuse screen: Denies threats or abuse. Denies injuries from another. Nutritional as6 screening: No deficits noted. Tuberculosis screening: No symptoms or risk factors identified. Fall Risk IV access (20 points). Assessment: 21:20 General: Appears uncomfortable, Behavior is anxious. Respiratory: Airway is patent kd3 Trachea midline Respiratory effort is using tripod position. 22:30 Reassessment: Patient states feeling better. Patient states symptoms have improved. kd3 Neuro: Level of Consciousness is awake, alert, obeys commands, Oriented to person, place, time, situation. Respiratory: Airway is patent Trachea midline Respiratory effort is even, unlabored, Respiratory pattern is regular, symmetrical. 23:45 Reassessment: Patient and/or family updated on plan of care and expected duration. Pain kd3 level reassessed. Patient is alert, oriented x 3, equal unlabored respirations, skin warm/dry/pink. Patient states feeling better. General: Appears in no apparent distress. comfortable, Behavior is calm, cooperative, appropriate for age. Neuro: Level of Consciousness is awake, alert, obeys commands, Oriented to person, place, time, situation. Cardiovascular: Patient's skin is warm and dry. Vital Signs: 20:21 BP 157 / 96; Pulse 135; Resp 24; Pulse Ox 99% ; Weight 92.99 kg; Height 5 ft. (152.40 as6 cm); Pain 5/10; 20:21 Temp 98.5(O); as6 21:50 BP 131 / 96; Pulse 118; Resp 22; Pulse Ox 100% on Non-rebreather mask; kd3 23:00 BP 111 / 61; Pulse 89; Resp 17; Pulse Ox 100% on Non-rebreather mask; kd3 23:50 BP 111 / 56; Pulse 92; Resp 19; Pulse Ox 97% on 5 lpm NC; kd3 / 01:00 BP 100 / 58; Pulse 87; Resp 24 S; Pulse Ox 100% on 4 lpm NC; as6 07/12 20:21 Body Mass Index 40.04 (92.99 kg, 152.40 cm) as6 ED Course: 07/12 20:21 Patient arrived in ED. as6 20:26 Triage completed. as6 20:27 Arm band placed on right wrist. as6 20:29 Patient has correct armband on for positive identification. Call light in reach. as6 20:29 Maintain EMS IV. Dressing intact. Good blood return noted. Site clean \T\ dry. Gauge \T\ as 6 site: 20 g left forearm . Oxygen administration via non-rebreather mask \T\ 15L/min. 20:30 Deshaun Bey RN is Primary Nurse. as6 20:39 Munir Mares PA is PHCP. jmm 20:39 Ildefonso Melgar MD is Attending Physician. jmm 21:18 XRAY Chest (1 view) In Process Unspecified. EDMS 21:47 initiated a transfer with Saturnino from [facility] transfer center. mw2 22:08 [facility] [place] denied due to capacity. mw2 22:30 initiated a transfer with Morena from [facility] Transfer [place]. mw2 23:10 CT Chest Wo Con In Process Unspecified. EDMS 23:45 Erickson cath inserted, using sterile technique, 16 Fr., by fl, balloon inflated, to kd3 gravity drainage, urine specimen collected. 23:57 Shyam Kirkland MD is Hospitalizing Provider. [facility] 07/13 00:50 Missed attempt(s): 18 gauge in right upper arm. Bleeding controlled, band aid applied, bb catheter tip intact. 01:03 Inserted saline lock: 22 gauge in right forearm, using aseptic technique. bb 01:52 No provider procedures requiring assistance completed. Patient admitted, IV remains in as6 place. Administered Medications: 07/12 21:50 CANCELLED (Duplicate Order): NS 0.9% 500 ml IV at [facility] once [facility] [place] 22:29 Drug: NS 0.9% 1000 ml Route: IV; Rate: 125 ml/hr; Site: left antecubital; kd3 07/13 01:53 Follow up: IV Status: Infusion continued upon admission as6 07/12 23:32 Drug: Cefepime 1 grams Route: IVPB; Rate: 200 ml/hr; Infused Over: 30 mins; Site: right kd3 forearm; 23:49 Follow up: Response: No adverse reaction; Rate change 100 ml; IV Status: Completed kd3 infusion 23:32 Drug: Lasix (furosemide) 40 mg Route: IVP; Site: right forearm; kd3 23:49 Follow up: Response: No adverse reaction kd3 23:33 Drug: Cefepime 1 grams Route: IVPB; Rate: 200 ml/hr; Infused Over: 30 mins; Site: left kd3 forearm; 23:48 Follow up: Response: No adverse reaction; Rate change 100 ml; IV Status: Completed kd3 infusion 23:33 Drug: Pepcid (famotidine) 20 mg Route: IVP; Site: left forearm; kd3 23:49 Follow up: Response: No adverse reaction kd3 23:50 Drug: vancoMYCIN 1 grams Route: IVPB; Infused Over: 2 hrs; Site: left antecubital; kd3 07/13 00:01 Follow up: Response: No adverse reaction kd3 01:38 Drug: Magnesium Sulfate 1 grams Route: IVPB; Infused Over: 1 hrs; Site: left as6 antecubital; 01:41 Drug: Heparin (TX-Bolus No thrombolytic) - HEParin 60 units/kg {Co-Signature: lg3 as6 (Ana Nelson RN).} Route: IVP; Site: right forearm; 01:53 Follow up: Response: No adverse reaction as6 01:41 Drug: Heparin (TX Drip) 12 units/kg/hr - (HEParin 79811 units, D5W 500 ml) as6 {Co-Signature: lg3 (Ana Nelson RN).} Route: IV; Rate: calculated rate; Site: right forearm; 01:54 Follow up: IV Status: Infusion continued upon admission as6 Outcome: 07/12 23:59 Decision to Hospitalize by Provider. barbara 07/13 01:52 Admitted to ER Hold. Please see [facility] for further documentation. as6 Condition: stable Instructed on the need for admit. 13:20 Patient left the ED. ph Signatures: Dispatcher [employer] EDIldefonso Lange MD MD barbara Mickail, Munir, PA PA Brisa Garza, RN RN bb Anna Marie Milton RN RN Connie Mccormick 2 Deshaun Bey RN RN as6 Eve Hernandez RN RN kd3 Ana Nelson RN lg3 Corrections: (The following items were deleted from the chart) 07/12 20:32 20:21 Chief complaint: EMS states: pt has past history of cardiac stents 3 weeks ago, as6 [place], hypertension CVA, and RA with EMS due to shortness of breath. no past respiratory issues. as6 21:01 20:21 Acuity: HODAN 3 as6 kd3 23:53 22:15 General: Appears uncomfortable, Behavior is anxious, kd3 kd3 23:53 22:15 Respiratory: Airway is patent Trachea midline Respiratory effort is using tripod kd3 position, kd3 23:59 23:00 BP 111 / 61; Pulse 89bpm; Resp 17bpm; Pulse Ox 100% Non-rebreather mask; kd3 kd3 23:59 05/ 21:50 BP 131 / 96; Pulse 118bpm; Resp 22bpm; Pulse Ox 100% Non-rebreather mask; kd3 kd3
--- NOTE | 2021-07-12 23:59 | EDPHYS ---
Physician Documentation [facility] Name: Tamy Martinez Age: 61 yrs Sex: Female : 1960 Arrival Date: 07/12/2021 Time: 20:21 Bed 2 Private MD: ED Physician Ildefonso Melgar HPI: 07/12 21:30 This 61 yrs old Female presents to ER via EMS with complaints of chest pain barbara and sob. 21:30 The patient has shortness of breath at rest. Onset: The symptoms/episode began/occurred barbara just prior to arrival. Duration: The symptoms are continuous, but are steadily getting better. The patient's shortness of breath is aggravated by exertion, light activity, supine position, is alleviated by sitting up, application of supplemental oxygen. The patient or guardian reports chest pain that is located primarily in the anterior chest wall, bilaterally. Onset: just prior to arrival. The pain does not radiate. Associated signs and symptoms: The patient has no apparent associated signs or symptoms. Severity of symptoms: At their worst the symptoms were mild moderate in the emergency department the symptoms are unchanged. Associated signs and symptoms: The patient has no apparent associated signs or symptoms. The chest pain is described as sharp. Historical: - Allergies: 20:27 Iodinated Contrast Media - IV Dye; as6 - Home Meds: 20:27 aspirin 81 mg Oral TbEC once daily [Active]; isosorbide dinitrate 10 mg Oral tab as6 [Active]; Lantus 100 unit/mL Sub-Q soln 26 unit nightly [Active]; losartan 25 mg Oral tab once daily [Active]; methotrexate sodium 2.5 mg Oral tab [Active]; Novolog Sub-Q sliding scale [Active]; Plavix 75 mg Oral tab once daily [Active]; Tresiba U-100 Insulin 100 unit/mL subcutaneous soln [Active]; Xeljanz 11 mg Oral daily [Active]; - PMHx: 20:27 Diabetes - IDDM; Hypertension; Hypertension resolved after lap band; Myocardial as6 infarction; Rheumatoid Arthritis; - Immunization history:: Adult Immunizations up to date, Client reports having NOT received the Covid vaccine. - Social history:: Smoking status: Patient denies any tobacco usage or history of. - Family history:: not pertinent. ROS: 21:30 Constitutional: Negative for fever, chills, and weight loss, Eyes: Negative for injury, barbara pain, redness, and discharge, ENT: Negative for injury, pain, and discharge, Neck: Negative for injury, pain, and swelling, Abdomen/GI: Negative for abdominal pain, nausea, vomiting, diarrhea, and constipation, Back: Negative for injury and pain, : Negative for injury, bleeding, discharge, and swelling, MS/Extremity: Negative for injury and deformity, Skin: Negative for injury, rash, and discoloration, Neuro: Negative for headache, weakness, numbness, tingling, and seizure, Psych: Negative for depression, anxiety, suicide ideation, homicidal ideation, and hallucinations, Allergy/Immunology: Negative for hives, rash, and allergies, Endocrine: Negative for neck swelling, polydipsia, polyuria, polyphagia, and marked weight changes, Hematologic/Lymphatic: Negative for swollen nodes, abnormal bleeding, and unusual bruising. 21:30 Cardiovascular: Positive for chest pain, of the chest. 21:30 Respiratory: Positive for shortness of breath, at rest. Exam: 21:30 Constitutional: This is a well developed, well nourished patient who is awake, alert, barbara and in no acute distress. Head/Face: Normocephalic, atraumatic. Eyes: Pupils equal round and reactive to light, extra-ocular motions intact. Lids and lashes normal. Conjunctiva and sclera are non-icteric and not injected. Cornea within normal limits. Periorbital areas with no swelling, redness, or edema. ENT: Nares patent. No nasal discharge, no septal abnormalities noted. Tympanic membranes are normal and external auditory canals are clear. Oropharynx with no redness, swelling, or masses, exudates, or evidence of obstruction, uvula midline. Mucous membranes moist. Neck: Trachea midline, no thyromegaly or masses palpated, and no cervical lymphadenopathy. Supple, full range of motion without nuchal rigidity, or vertebral point tenderness. No Meningismus. Chest/axilla: Normal chest wall appearance and motion. Nontender with no deformity. No lesions are appreciated. Abdomen/GI: Soft, non-tender, with normal bowel sounds. No distension or tympany. No guarding or rebound. No evidence of tenderness throughout. Back: No spinal tenderness. No costovertebral tenderness. Full range of motion. Female : Normal external genitalia. MS/ Extremity: Pulses equal, no cyanosis. Neurovascular intact. Full, normal range of motion. Neuro: Awake and alert, GCS 15, oriented to person, place, time, and situation. Cranial nerves II-XII grossly intact. Motor strength 5/5 in all extremities. Sensory grossly intact. Cerebellar exam normal. Normal gait. Psych: Awake, alert, with orientation to person, place and time. Behavior, mood, and affect are within normal limits. 21:30 Cardiovascular: Rate: tachycardic, Rhythm: regular, Pulses: Pulses are 4+ in bilateral radial, brachial, femoral, popliteal, posterior tibial and and dorsalis pedis arteries.. Heart sounds: normal, Edema: is not appreciated, JVD: is not appreciated. 21:30 ECG was reviewed by the Attending Physician. 22:32 Abdomen/GI: Inspection: abdomen appears normal, Bowel sounds: normal, Palpation: barbara nontender, Rectal exam: is unremarkable, rectal tone normal, Stool: guaiac negative, hemorrhoid(s), are not appreciated, mass, is not appreciated, swelling, is not appreciated, tenderness, is not appreciated, fecal impaction, is not appreciated, Liver: no appreciated palpable abnormalities, Hernia: not appreciated. Vital Signs: 20:21 BP 157 / 96; Pulse 135; Resp 24; Pulse Ox 99% ; Weight 92.99 kg; Height 5 ft. (152.40 as6 cm); Pain 5/10; 20:21 Temp 98.5(O); as6 21:50 BP 131 / 96; Pulse 118; Resp 22; Pulse Ox 100% on Non-rebreather mask; kd3 23:00 BP 111 / 61; Pulse 89; Resp 17; Pulse Ox 100% on Non-rebreather mask; kd3 23:50 BP 111 / 56; Pulse 92; Resp 19; Pulse Ox 97% on 5 lpm NC; kd3 0503 01:00 BP 100 / 58; Pulse 87; Resp 24 S; Pulse Ox 100% on 4 lpm NC; as6 0502 20:21 Body Mass Index 40.04 (92.99 kg, 152.40 cm) as6 MDM: 07/12 20:41 Patient medically screened. barbara 21:32 Differential diagnosis: Anemia asthma, Bronchitis CHF exacerbation, Chronic Obstructive barbara Pulmonary Disease abnormal EKG, acute pericarditis, anxiety, chest wall pain, Cholelithiasis costochondritis, pancreatitis, pneumonia, pneumonia, pulmonary edema, Pulmonary Embolism reactive airway disease, Sepsis Unstable Angina. Antibiotic administration: cefepime/vanco. HEART Score: History: Slightly Suspicious (0), ECG: Non specific repolarization disturbance / LBTB / PM (1), Age: > 45 and < 65 years (1), Risk Factors: > or = 3 Risk factors for atherosclerotic disease (2), [Hypercholesterolemia] [Hypertension] [DM] [+ Family HX] [Obesity]. The patient was not given aspirin in the Emergency Department. Patient reports taking aspirin within the past 24 hours. The patient's Wells Deep Vein Thrombosis Score was calculated as follows: Total Score: Heart Rate >100 BPM (1.5 Pts) Total Score: 0-2 Pts- Low Risk. The patient's pulmonary embolism risk score was calculated as follows: the patients heart rate is greater than 100 beats per minute (1.5 Pts) Total Score: 0-2 points. This patient was found to be at low risk for a pulmonary embolism by using the Well's assessment criteria the patients heart rate is greater than 100 beats per minute (1.5 Pts) Total Score: 0-2 points. This patient was found to be at low risk for a pulmonary embolism by using the Well's assessment criteria. LO Risk Score: 1 - Three or more CAD risk factors, 1- Known CAD, 1 - Recent [<24hrs] Severe Angina, TOTAL SCORE = 3. Immunization status: Influenza vaccine: Data reviewed: vital signs, nurses notes, lab test result(s), EKG, radiologic studies. Data interpreted: monitor technician: rate is 135 beats/min, rhythm is regular, Pulse oximetry: on room air is 99 %. Test interpretation: by ED physician or midlevel provider: ECG, plain radiologic studies. 07/12 20:39 Order name: Basic Metabolic Panel; Complete Time: 21:49 [facility] 07/12 20:39 Order name: CBC with Diff; Complete Time: 21:45 [facility] 07/12 20:39 Order name: LFT's; Complete Time: 21:49 [facility] 07/12 20:39 Order name: Magnesium; Complete Time: 21:49 [facility] 07/12 20:39 Order name: NT PRO-BNP; Complete Time: 21:49 [facility] 07/12 20:39 Order name: PT-INR; Complete Time: 21:45 [facility] 07/12 20:39 Order name: Troponin HS; Complete Time: 21:49 [facility] 07/12 20:43 Order name: SARS-COV-2 RT PCR (Document "Date of Onset" if Symptomatic); Complete Time: barbara 22:14 07/12 21:20 Order name: Lipase; Complete Time: 23:27 [facility] 07/12 21:28 Order name: Blood Culture Adult (2) [facility] 07/12 21:28 Order name: Lactate; Complete Time: 23:27 [facility] 07/12 21:28 Order name: Procalcitonin; Complete Time: 23:52 [facility] 07/12 21:29 Order name: Urine Culture [facility] 07/12 23:41 Order name: Urine Dipstick-Ancillary; Complete Time: 23:52 [facility] 07/12 20:39 Order name: XRAY Chest (1 view); Complete Time: 21:45 [facility] 07/12 21:46 Order name: CT Chest Wo Con [facility] 07/13 05:18 Order name: CBC with Automated Diff; Complete Time: 05:58 [facility] 07/13 05:30 Order name: Comprehensive Metabolic Panel; Complete Time: 05:58 [facility] 07/13 05:30 Order name: Phosphorus; Complete Time: 05:58 [facility] 07/13 05:30 Order name: Lipid Profile; Complete Time: 05:58 [facility] 07/13 05:30 Order name: Magnesium; Complete Time: 05:58 [facility] 07/13 05:33 Order name: Hemoglobin A1c; Complete Time: 05:58 [facility] 07/13 05:34 Order name: Creatine Phosphokinase; Complete Time: 05:58 [facility] 07/13 05:34 Order name: CKMB Creatine Kinase MB; Complete Time: 05:58 [facility] 07/13 05:34 Order name: Troponin High Sensitivity; Complete Time: 05:58 [facility] 07/13 06:45 Order name: PTT, Activated Partial Thromb; Complete Time: 07:15 [facility] 07/13 10:29 Order name: Glucose, Ancillary Testing [facility] 07/13 11:11 Order name: Troponin High Sensitivity [facility] 07/13 11:49 Order name: PTT, Activated Partial Thromb [facility] 07/12 20:39 Order name: EKG; Complete Time: 20:40 [facility] 07/12 20:39 Order name: Cardiac monitoring; Complete Time: 20:58 [facility] 07/12 20:39 Order name: EKG - Nurse/Tech; Complete Time: 20:58 [facility] 07/12 20:39 Order name: IV Saline Lock; Complete Time: 20:58 [facility] 07/12 20:39 Order name: Labs collected and sent; Complete Time: 23:33 [facility] 07/12 20:39 Order name: O2 Per Protocol; Complete Time: 20:58 [facility] 07/12 20:39 Order name: O2 Sat Monitoring; Complete Time: 20:58 [facility] 07/12 21:18 Order name: IV Saline Lock - Large Bore; Complete Time: 23:33 [facility] 07/12 21:29 Order name: Urine Dipstick-Ancillary (obtain specimen); Complete Time: 23:49 [facility] 07/12 21:29 Order name: Erickson; Complete Time: 23:33 [facility] EC:30 Rate is 133 beats/min. Rhythm is regular. QRS [place] is Normal. [place] interval is normal. barbara QRS interval is normal. QT interval is normal. No Q waves. T waves are Normal. No ST changes noted. Clinical impression: Sinus tachycardia. Interpreted by me. Reviewed by me. Administered Medications: 21:50 CANCELLED (Duplicate Order): NS 0.9% 500 ml IV at bolus once [facility] 22:29 Drug: NS 0.9% 1000 ml Route: IV; Rate: 125 ml/hr; Site: left antecubital; 3 07/13 01:53 Follow up: IV Status: Infusion continued upon admission as6 07/12 23:32 Drug: Cefepime 1 grams Route: IVPB; Rate: 200 ml/hr; Infused Over: 30 mins; Site: right kd3 forearm; 23:49 Follow up: Response: No adverse reaction; Rate change 100 ml; IV Status: Completed kd3 infusion 23:32 Drug: Lasix (furosemide) 40 mg Route: IVP; Site: right forearm; kd3 23:49 Follow up: Response: No adverse reaction 3 23:33 Drug: Cefepime 1 grams Route: IVPB; Rate: 200 ml/hr; Infused Over: 30 mins; Site: left kd3 forearm; 23:48 Follow up: Response: No adverse reaction; Rate change 100 ml; IV Status: Completed kd3 infusion 23:33 Drug: Pepcid (famotidine) 20 mg Route: IVP; Site: left forearm; kd3 23:49 Follow up: Response: No adverse reaction kd3 23:50 Drug: vancoMYCIN 1 grams Route: IVPB; Infused Over: 2 hrs; Site: left antecubital; kd3 07/13 00:01 Follow up: Response: No adverse reaction kd3 01:38 Drug: Magnesium Sulfate 1 grams Route: IVPB; Infused Over: 1 hrs; Site: left as6 antecubital; 01:41 Drug: Heparin (VT-Bolus No thrombolytic) - HEParin 60 units/kg {Co-Signature: lg3 as6 (Ana Nelson RN).} Route: IVP; Site: right forearm; 01:53 Follow up: Response: No adverse reaction as6 01:41 Drug: Heparin (VT Drip) 12 units/kg/hr - (HEParin 26546 units, D5W 500 ml) as6 {Co-Signature: lg3 (Ana Nelson RN).} Route: IV; Rate: calculated rate; Site: right forearm; 01:54 Follow up: IV Status: Infusion continued upon admission as6 Disposition Summary: 07/12/21 23:59 Hospitalization Ordered Hospitalization Status: Inpatient Admission barbara Provider: Shyam Kirkland cha Condition: Fair barbara Problem: new barbara Symptoms: have improved barbara Bed/Room Type: Standard barbara Location: Telemetry/MedSurg (Inpatient)(07/13/21 10:52) bd Room Assignment: 404(07/13/21 10:52) bd Diagnosis - Chest pain on breathing babrara - Anemia, unspecified barbara - Dyspnea barbara - Hypomagnesemia barbara - Type 1 diabetes mellitus with hyperglycemia barbara - UTI/ Urinary tract infection, site not specified barbara - Pneumonia, unspecified organism - bilateral barbara Forms: - Medication Reconciliation Form barbara - SBAR form barbara Signatures: Dispatcher [employer] EDMS Monica Wise Corey, MD MD cha Mickail, Joel, PA PA jmm Garcia, Cindy, RN RN cg Slawson, Ashby, RN RN as6 Eve Hernandez RN RN kd3 Isidra Worthington PA PA sb3 Ana Nelson RN lg3 Corrections: (The following items were deleted from the chart) 07/12 21:50 21:29 NS 0.9% 500 ml IV at bolus once ordered. barbara barbara 07/13 00:25 07/12 23:59 Telemetry/MedSurg (Inpatient) barbara cg 07/13 00:25 05 23:59 barbara cg 07/13 00:25 00:25 cg cg 10:52 00:25 BR ER HOLD cg bd 10: 00:25 ERHOLD- cg bd 10:52 10:52 401 bd bd
[2021-07-13] MEDS ORDERED: HEPARIN 5000 UNIT/ML 1 ML VIAL ONE (01:20)
[2021-07-13] MEDS ORDERED: MAGNESIUM SULFATE 1 gm IVPB 1 GM/100 ML BAG IV ONE (01:20)
[2021-07-13] MEDS ORDERED: HEPARIN/D5W 25,000 UNIT/500 ML BAG IV ONE (01:21)
--- NOTE | 2021-07-13 02:26 | P.HP ---
Certification for Inpatient Patient admitted to: Inpatient With expected LOS: >2 Midnights Patient will require the following post-hospital care: None Practitioner: I am a practitioner with admitting privileges, knowledge of patient current condition, hospital course, and medical plan of care. Services: Services provided to patient in accordance with Admission requirements found in Title 42 Section 412.3 of the Code of Federal Regulations <Isidra Worthington - Last Filed: 07/13/21 04:05> Patient History Date of Service: 07/13/21 Reason for admission: Chest pain, pneumonia History of Present Illness: Patient is a 61-year-old female with past medical history of CAD, type 2 diabetes non insulin dependent, and HTN who presented to the ED via EMS EMS with complaints of chest pain and worsening shortness of breath. She states that 3 weeks ago, Dr. Mcdonald put in a stent but there was a complication with her femoral IV resulting in the need for a larger incision and general anesthesia. She states that she never had issues with shortness of breath before but has had increasing shortness of breath with exertion after her catheterization. In the ED, she was found to have a troponin HS 69.7, magnesium 1.7, BNP 1695, urine positive for UTI. CT chest showed multifocal nodular and amorphous pneumonia throughout the right lung and minimally in the left lower lobe. Small layering bilateral pleural effusions, minimal pulmonary edema, left upper lobe and splenic old granulomatous disease, trace pericardial fluid. She was put on a heparin drip and received mag, Lasix, cefepime, and vancomycin. Transfer was attempted but declined x2. Upon my assessment, patient reports that her shortness of breath has improved with supplemental oxygen but quickly worsens if she is not wearing nasal cannula. We will admit patient for further evaluation and treatment. Home medications list reviewed: Yes - Past Medical/Surgical History Diabetic: Yes -: Diabetes mellitus type 2 -: HTN -: Rheuamtoid Arthritis -: Degenerative disk and joint disease of the spine -: CAD -: Type 2 Diabetes -: Lap band 2009 -: x2 -: Left knee replacement -: Cholecystectomy -: right knee replacement -: Stent x4 Psychosocial/ Personal History: She is , has 2 children. She does not work. - Family History Father -: Hypertension Notes: brother had LA at 30; Mother -: Cancer Notes: esophageal - Social History Smoking Status: Never smoker Alcohol use: No CD- Drugs: No Caffeine use: Yes Place of Residence: Home <Isidra Worthington - Last Filed: 07/13/21 04:05> Date of Service: 07/13/21 <Shyam Kirklandzal - Last Filed: 07/14/21 10:48> Allergies Iodinated Contrast Media [Iodinated Contrast Media - Oral and] Allergy (Severe, Verified 03/13/17 21:21) Unknown iodine [Iodine] Allergy (Severe, Verified 04/11/16 14:05) Itching and swelling Home Medications: Gabapentin [Neurontin] 600 mg PO BID 02/25/20 Losartan Potassium [Cozaar] 50 mg PO DAILY 02/25/20 Atorvastatin Calcium [Lipitor] 40 mg PO BEDTIME #30 tab 02/28/20 Clopidogrel Bisulfate [Plavix*] 75 mg PO DAILY #30 tablet 02/28/20 Methotrexate [Methotrexate*] 5 tab PO Q7D 03/05/20 Metoprolol Tartrate [Lopressor*] 12.5 mg PO BID 04/13/20 Folic Acid 1 mg PO DAILY 04/13/21 Insulin Aspart 8 units SQ BREAKFAST 04/13/21 Insulin Degludec [Tresiba] 26 unit SQ BREAKFAST 04/13/21 Isosorbide Mononitrate [Isosorbide Mononitrate ER] 60 mg PO DAILY 30 Days #30 tab.er.24h 04/14/21 Aspirin [Aspirin EC 81 MG] 81 mg PO DAILY 07/13/21 Duloxetine [Cymbalta *] 1 pill PO DAILY 07/13/21 Nitroglycerin 0.4 mg SL 1X 07/13/21 Tofacitinib Citrate [Xeljanz Xr] 1 pill PO DAILY 07/13/21 Review of Systems General: Weakness Respiratory: SOB with Excertion Cardiovascular: Chest Pain Gastrointestinal: Nausea Musculoskeletal: Back Pain <Isidra Worthington - Last Filed: 07/13/21 04:05> Physical Examination - Physical Exam General: Alert, In no apparent distress, Oriented x3, Obese HEENT: Atraumatic, PERRLA, EOMI, Sclerae nonicteric Neck: Supple, 2+ carotid pulse no bruit, No LAD, Without JVD or thyroid abnormality Respiratory: Diminished Cardiovascular: Regular rate/rhythm, Normal S1 S2 Gastrointestinal: Normal bowel sounds, No tenderness Musculoskeletal: No tenderness Integumentary: No rashes Neurological: Normal speech, Normal strength at 5/5 x4 extr, Normal tone, Normal affect Urinary: Erickson catheter - Studies Laboratory Data (last 24 hrs) 07/12/21 22:43: Lipase 135 07/12/21 21:00: PT 10.4, INR 0.95 07/12/21 21:00: WBC 8.4, Hgb 9.8 L, Hct 29.7 L, Plt Count 350 07/12/21 21:00: Sodium 137, Potassium 4.1, BUN 19 H, Creatinine 1.23, Glucose 264 H, Magnesium 1.7 L, Total Bilirubin 0.3, AST 17, ALT 21, Alkaline Phosphatase 119 H <Isidra Worthington - Last Filed: 07/13/21 04:05> Assessment and Plan - Problems (Diagnosis) (1) Pneumonia Current Visit: Yes Status: Acute Qualifiers: Pneumonia type: due to unspecified organism Laterality: bilateral Lung location: unspecified part of lung Qualified Code(s): J18.9 - Pneumonia, unspecified organism (2) Elevated troponin Current Visit: Yes Status: Acute (3) UTI (urinary tract infection) Current Visit: Yes Status: Acute Qualifiers: Urinary tract infection type: acute cystitis Hematuria presence: without hematuria Qualified Code(s): N30.00 - Acute cystitis without hematuria (4) Chest pain Current Visit: Yes Status: Acute (5) Coronary artery disease Current Visit: Yes Status: Chronic Qualifiers: Coronary Disease-Associated Artery/Lesion type: unspecified vessel or lesion type [place] vs. transplanted heart: [place] heart Associated angina: with unstable angina Qualified Code(s): I25.110 - Atherosclerotic heart disease of [place] coronary artery with unstable angina pectoris (6) Diabetic neuropathy Current Visit: Yes Status: Chronic Qualifiers: Diabetes mellitus type: type 2 Diabetes mellitus complication detail: diabetic polyneuropathy Qualified Code(s): E11.42 - Type 2 diabetes mellitus with diabetic polyneuropathy (7) H/O heart artery stent Current Visit: Yes Status: Chronic (8) Hypomagnesemia Onset Date: 04/12/16 Current Visit: Yes Status: Chronic (9) Diabetes mellitus Onset Date: 03/15/17 Current Visit: Yes Status: Chronic (10) Rheumatoid arthritis RA Onset Date: 03/15/17 Current Visit: Yes Status: Chronic - Plan -Bilateral pneumonia present on chest CT. Given vanc and cefepime in the ED. Will continue. Pulmonology consulted. patient requiring 4L during my assessment. Solumedrol ordered. Breathing treatments PRN. -Patient had stent placed by Dr. Mcdonald 3 weeks ago (and 3 other stents prior). She is now experiencing chest pain and troponin was elevated. Heparin drip started in the ED. Will check troponin q6h x 2 and also check CKMB and CPK. Echo ordered for the morning. Cardiology consulted. -Patient was also found to have UTI. Vanc and cefepime on board. Erickson placed in the ED. -glucose elevated at 250. achs accuchecks with mild sliding scale insulin and diabetic diet. A1c pending. -patient appears to have chronic hypomagnesemia. will replete as necessary and trend. -Lovenox for VTE ppx Discharge Plan: Home Plan to discharge in: Greater than 2 days - Advance Directives Does patient have a Living Will: No Does patient have a Durable POA for Healthcare: No - Code Status/Comfort Care Code Status Assessed: Yes (Full) Critical Care: No Time Spent Managing Pts Care (In Minutes): 70 <Isidra Worthington - Last Filed: 07/13/21 04:05> Date of Service: 07/13/21 Subjective: HPI as mentioned above Physical Examination: Vitals: Afebrile vital signs are stable Physical exam: Cardiovascular: Within normal limits. Lungs: Within normal limits Abdomen: Within normal limits Neuro: Awake, alert, oriented to person place and time Assessment: 1. Pneumonia Plan: 1. Continue with current plan of care as mentioned above <Shyam Kirkland - Last Filed: 07/14/21 10:48>
[2021-07-13] MEDS ORDERED: ACETAMINOPHEN 500 MG TAB PO PRN (04:05)
[2021-07-13] MEDS ORDERED: VANCOMYCIN 1 GM in NA CHLORIDE 0.9% 250 ML IVPB SCH (04:05)
[2021-07-13] MEDS ORDERED: ONDANSETRON 4 MG/2 ML VIAL IV PRN (04:05)
[2021-07-13] MEDS ORDERED: ALBUTEROL 2.5 MG/3 ML NEB SOL NEB PRN (04:25)
[2021-07-13] MEDS ORDERED: VANCOMYCIN 1.25 GM in NA CHLORIDE 0.9% 250 ML IVPB ONE (05:00)
[2021-07-13] MEDS ORDERED: VANCOMYCIN 1 GM/VIAL ONE (05:14)
[2021-07-13] MEDS ORDERED: NA CHLORIDE 0.9% 250 ML ONE (05:14)
[2021-07-13] MEDS ORDERED: VANCOMYCIN 500 MG/VIAL ONE (05:14)
[2021-07-13 05:16] LABS: Absolute Lymphocytes (CBC) 1.4 K/uL (0.7-4.9); Hematocrit 27.2 % (36.0-45.0); Lymphocytes % 15.4 % (15.3-44.8)
[2021-07-13 05:30] LABS: Albumin 2.9 g/dL (3.4-5.0); Bilirubin Total 0.3 mg/dL (0.2-1.0); Phosphorus 4.2 mg/dL (2.5-4.9); Potassium 4.3 mmol/L (3.5-5.1); Protein, Total 6.6 g/dL (6.4-8.2)
[2021-07-13 05:31] LABS: CKMB Creatine Kinase MB 6.1 ng/mL (1.0-3.6)
[2021-07-13] MEDS ORDERED: HEPARIN/D5W 25,000 UNIT/500 ML BAG IV SCH (06:00)
[2021-07-13] MEDS: METHYLPREDNISOLONE 125 MG INJ IV SCH ×3 (06:00→16:55)
[2021-07-13] MEDS: INSULIN -REGULAR HUMAN 50 UNIT/0.5 ML ML SQ SCH ×5 (07:30→20:53)
[2021-07-13] MEDS ORDERED: CEFEPIME 1 GM in NA CHLORIDE 0.9% 100 ML IV SCH (09:00)
[2021-07-13] MEDS ORDERED: METHYLPREDNISOLONE 125 MG INJ ONE (09:09)
--- NOTE | 2021-07-13 10:50 | EKG ---
Test Date: 2021-07-12 Test Time: 20:23:15 Metal Gauge Maker: MEASUREMENT RESULTS: Intervals: Rate: 133 NE: 122 QRSD: 78 QT: 296 QTc: 440 [place]: P: 86 NE: 122 QRS: -37 T: 87 INTERPRETIVE STATEMENTS: Sinus tachycardia Left axis deviation Anterior infarct, age undetermined ST & T wave abnormality, consider lateral ischemia Abnormal ECG Compared to ECG 07/12/2021 20:22:46 No significant changes Electronically Signed On 07-13-21 10:50:04 CDT by Tarun Edward
--- NOTE | 2021-07-13 10:51 | EKG ---
Test Date: 2021-07-12 Test Time: 20:22:46 Nursing Home Admissions Director: MEASUREMENT RESULTS: Intervals: Rate: 133 ME: 148 QRSD: 76 QT: 294 QTc: 437 [place]: P: 77 ME: 148 QRS: -35 T: 88 INTERPRETIVE STATEMENTS: Sinus tachycardia Left axis deviation Anterior infarct, age undetermined ST & T wave abnormality, consider lateral ischemia Abnormal ECG Compared to ECG 05/01/2021 03:50:08 Left-axis deviation now present ST (T wave) deviation now present Possible ischemia now present Sinus rhythm no longer present Myocardial infarct finding still present Electronically Signed On 07-13-21 10:50:06 CDT by Tarun Edward
--- NOTE | 2021-07-13 11:03 | ECHO ---
HEIGHT: 5 ft 0 in WEIGHT: 205 lb 0.126 oz DATE OF STUDY: 07/13/[address]: Isidra Worthington 2-DIMENSIONAL: YES M.MODE: YES DOPPLER: YES COLOR FLOW: YES TDS: NO PORTABLE: YES DEFINITY: NO BUBBLE STUDY: NO DIAGNOSIS: CHEST PAIN CARDIAC HISTORY: CATHERIZATION: SURGERY: PROSTHETIC VALVE: PACEMAKER: MEASUREMENTS (cm) DIASTOLIC (NORMALS) SYSTOLIC (NORMALS) IVSd 1.0 (0.6-1.2) LA Diam 3.5 (1.9-4.0) LVEF 51% LVIDd 5.1 (3.5-5.7) LVIDs 3.7 (2.0-3.5) %FS 26% LVPWd 1.2 (0.6-1.2) Ao Diam 2.7 (2.0-3.7) 2 DIMENSIONAL ASSESSMENT: RIGHT ATRIUM: NORMAL LEFT ATRIUM: NORMAL RIGHT VENTRICLE: NORMAL LEFT VENTRICLE: NORMAL TRICUSPID VALVE: NORMAL MITRAL VALVE: NORMAL PULMONIC VALVE: NORMAL AORTIC VALVE: NORMAL PERICARDIAL EFFUSION: NONE AORTIC ROOT: NORMAL LEFT VENTRICULAR WALL MOTION: NORMAL. DOPPLER/COLOR FLOW: NORMAL. COMMENTS: NORMAL 2D ECHO WITH DOPPLER. NO WALL MOTION ABNORMALITY. NO EFFUSION. TECHNOLOGIST: LENA ABLL
--- NOTE | 2021-07-13 13:22 | CON ---
Date of Consultation: 07/13/2021 Reason For Consultation: Pneumonia and chest pain. History Of Present Illness: Ms. Martniez is 61. Recently had an RCA angioplasty and stent with Dr. Ra torres. She has another procedure pending on July 21, I believe further on the RCA as well, maybe on the PDA. Has a history of hypertension, diabetes, rheumatoid arthritis. Came in with chest pain, el evated troponin, pneumonia. She is not having any more pain right now, but she is having some shortn ess of breath. Denied any fever or chills or cough. Denies nausea, vomiting, diaphoresis, PND, orth opnea, or pedal edema. Allergies: SHE IS ALLERGIC TO IODINE. Review of Systems: Negative. Social History: Negative. Family History: Positive for heart disease. Medications: Include aspirin, Plavix, Lipitor, Synjardy, losartan, Imdur, insulin, Neurontin, methot rexate, and metoprolol. Physical Examination: Vital Signs: Stable, afebrile, sinus rhythm. HEENT: Negative. Neck: Supple without any bruit, lymphadenopathy, JVD, or thyromegaly. Chest: Clear to auscultation and percussion on the right. She has some rales at the base of the lef t. Cardiac: Revealed a regular rhythm and rate with S4 gallops. No murmurs or rubs. Abdomen: Benign. Extremities: Revealed no clubbing, cyanosis, or edema. Diagnostic Data: Showed a hemoglobin of 9.1. Troponin is 1073. Glucose was 224. Chest x-ray showe d pneumonia. Impression And Plan: Chest pain secondary to coronary artery disease with elevated troponin. She hernandez s a normal circumflex, normal LAD. She has some disease of the RCA that Dr. Mcdonald worked on. Appar ently, she needs another staged procedure on her RCA that is scheduled for July 21. I would prefer to wait till then. Meanwhile, we would increase her Imdur, increase her beta-renaldo, and stop her h eparin. She is pain free. She needs to be treated for her pneumonia. Echocardiogram is pending. S he is allergic to iodine. She will have to be pre-treated with steroids before her catheterization o n July 21. Her other problems including hypertension, diabetes, and rheumatoid arthritis as well as neuropathy seem to be stable at this point. Again stop heparin, increase beta-renaldo, increase Imd ur, check an echo, and treat her pneumonia. She can go home after that and we will proceed with her procedure on July 21. BREANNA Voice ID: [id number] Report ID: [id number]
[2021-07-13 14:32] LABS: CKMB Creatine Kinase MB 6.6 ng/mL (1.0-3.6)
[2021-07-13 15:01] VITALS: BMI 40.0
--- NOTE | 2021-07-13 16:59 | P.CNS ---
Date of Consult: 07/13/21 Reason for Consult: Respiratory distress Chief Complaint: Chest pain, pneumonia History of Present Illness: Patient is 61 years of age metabolic syndrome coronary artery disease with acute onset of dyspnea came here to the emergency room she has been having problems patient since she had a cardiac catheterization done experiencing dyspnea on exertion she was scheduled to put a stent developed a complication in her right groin feeling a little better patient denies any cough sputum hemoptysis chest pain fever or chills to have a valvular procedure done in another hospital Allergies Iodinated Contrast Media [Iodinated Contrast Media - Oral and] Allergy (Severe, Verified 03/13/17 21:21) Unknown iodine [Iodine] Allergy (Severe, Verified 04/11/16 14:05) Itching and swelling Home Medications: Gabapentin [Neurontin] 600 mg PO BID 02/25/20 Losartan Potassium [Cozaar] 50 mg PO DAILY 02/25/20 Atorvastatin Calcium [Lipitor] 40 mg PO BEDTIME #30 tab 02/28/20 Clopidogrel Bisulfate [Plavix*] 75 mg PO DAILY #30 tablet 02/28/20 Methotrexate [Methotrexate*] 5 tab PO Q7D 03/05/20 Metoprolol Tartrate [Lopressor*] 12.5 mg PO BID 04/13/20 Folic Acid 1 mg PO DAILY 04/13/21 Insulin Aspart 8 units SQ BREAKFAST 04/13/21 Insulin Degludec [Tresiba] 26 unit SQ BREAKFAST 04/13/21 Isosorbide Mononitrate [Isosorbide Mononitrate ER] 60 mg PO DAILY 30 Days #30 tab.er.24h 04/14/21 Aspirin [Aspirin EC 81 MG] 81 mg PO DAILY 07/13/21 Duloxetine [Cymbalta *] 1 pill PO DAILY 07/13/21 Nitroglycerin 0.4 mg SL 1X 07/13/21 Tofacitinib Citrate [Xeljanz Xr] 1 pill PO DAILY 07/13/21 - Past Medical/Surgical History Diabetic: Yes -: Diabetes mellitus type 2 -: HTN -: Rheuamtoid Arthritis -: Degenerative disk and joint disease of the spine -: CAD -: Type 2 Diabetes -: Lap band 2009 -: x2 -: Left knee replacement -: Cholecystectomy -: right knee replacement -: Stent x4 Psychosocial/ Personal History: She is , has 2 children. She does not work. - Family History Father Medical History: Hypertension Notes: brother had CA at 30; Mother Medical History: Cancer Notes: esophageal - Social History Smoking Status: Current every day smoker Alcohol use: No CD- Drugs: No Caffeine use: Yes Place of Residence: Home Review of Systems 10-point ROS is otherwise unremarkable Physical Examination Temp Pulse Resp BP Pulse Ox 97.6 F 79 16 136/70 95 07/13/21 08:00 07/13/21 16:00 07/13/21 16:00 07/13/21 16:00 07/13/21 16:00 General: Alert, In no apparent distress, Oriented x3 Neck: Supple Respiratory: Clear to auscultation bilaterally Cardiovascular: No edema, Regular rate/rhythm, Normal S1 S2 Gastrointestinal: Normal bowel sounds, Soft and benign Laboratory Data (last 24 hrs) 07/12/21 22:43: Lipase 135 07/12/21 21:00: PT 10.4, INR 0.95 07/12/21 21:00: WBC 8.4, Hgb 9.8 L, Hct 29.7 L, Plt Count 350 07/12/21 21:00: Sodium 137, Potassium 4.1, BUN 19 H, Creatinine 1.23, Glucose 264 H, Magnesium 1.7 L, Total Bilirubin 0.3, AST 17, ALT 21, Alkaline Phosphatase 119 H - Problems (1) Shortness of breath Current Visit: Yes Status: Acute Plan: Patient is 61 years of age has been having dyspnea since the attempted cardiac catheterization procedure about 3 weeks ago complaining of dyspnea on exertion presented to the emergency room with acute onset of dyspnea has some groundglass changes right worse than the left feeling a little better labs reviewed troponins have increased significantly most likely a cardiac event mildly anemic signs are satisfactory doubt pneumonia changed to Lovenox for now seen by cardiology normal echocardiogram no wall motion abnormality patient has a history of rheumatoid arthritis add some Lasix discontinue steroid
[2021-07-13] MEDS: FUROSEMIDE 40 MG TABLET PO SCH (17:12)
[2021-07-13] MEDS: ENOXAPARIN 100 MG/ML SYR SQ SCH (17:48)
--- NOTE | 2021-07-13 19:44 | RAD REPORT ---
EXAM DESCRIPTION: CT CHEST WITHOUT CONTRAST. CLINICAL HISTORY: Dyspnea, chronic, chest wall or pleura disease suspected COMPARISON: CTA chest 08/10/2019 TECHNIQUE: Axial CT imaging of the chest performed. Reformatted coronal and sagittal images obtained . This exam was performed according to our departmental dose-optimization program which includes automa graciela exposure control, adjustment of the mA and/or kV according to patient size and/or use of iterativ e reconstruction technique FINDINGS: HEART/VESSELS: Heart is normal in size. There is trace anterior pericardial fluid. Normal caliber thoracic aorta and main pulmonary artery. Significant coronary artery calcifications. MEDIASTINUM AND ISAIAS: Normal trachea and main bronchi. Unremarkable esophagus. No mediastinal or isaias r lymphadenopathy. LUNGS/PLEURA: There are numerous nodular and amorphous groundglass opacities throughout the right alexandro g and minimally within the peripheral left lower lobe compatible with pneumonia. There is a calcified 9 mm granuloma in the anterior left upper lobe. Minimal pulmonary edema. Small bilateral pleural eff usions. No pneumothorax. CHEST WALL/SOFT TISSUES: Intact sternum. There is bulky degenerative change throughout the mid to low er thoracic spine. Intact remaining bony thorax. Unremarkable thyroid. No axillary lymphadenopathy. UPPER ABDOMEN: Unremarkable liver. Gallbladder has been resected. There is a lap band present along t he lateral margin of the gastric cardia and appropriate position. Unremarkable included pancreas, adr enal glands and kidneys. Calcified granulomas in the spleen. IMPRESSION: 1. Multifocal nodular and amorphous pneumonia throughout the right lung and minimally in the left lower lobe. Small layering bilateral pleural effusions. Minimal pulmonary edema. 2. Left upper lobe and splenic old granulomatous disease. 3. Trace pericardial fluid. Electronically signed by: Angelique Hillman DO 07/12/2021 11:44 PM CDT Due to temporary technical issues with the PACS/Fluency reporting system, reports are being signed by the in house radiologists without review as a courtesy to insure prompt reporting. The interpreting radiologist is fully responsible for the content of the report.
[2021-07-13 20:41] LABS: CKMB Creatine Kinase MB 4.6 ng/mL (1.0-3.6)
[2021-07-14 04:08] LABS: Absolute Lymphocytes (CBC) 0.6 K/uL (0.7-4.9); Hematocrit 29.4 % (36.0-45.0); Lymphocytes % 7.6 % (15.3-44.8); MPV 7.6 fL (7.6-11.3); RBC Red Blood Cell Count 3.31 M/uL (3.86-4.86)
[2021-07-14 04:22] LABS: Albumin 3.1 g/dL (3.4-5.0); Bilirubin Total 0.3 mg/dL (0.2-1.0); Potassium 4.5 mmol/L (3.5-5.1)
[2021-07-14 05:09] LABS: Blood Morphology Comment NOT SEEN (NOT SEEN); Platelet Estimate ADEQ
[2021-07-14 05:52] LABS: Urine Appearance Clear (Clear); Urine Bilirubin Negative (Negative); Urine Blood Trace-intact (Negative); Urine Color Yellow (Yellow); Urine Glucose Trace (Negative); Urine Protein Negative (Negative); Urine Specific Gravity 1.015 (1.005-1.030); Urine Urobilinogen 0.2 mg/dL (0.2-1.0); Urine pH 5.5 (5.0-7.0)
[2021-07-14 05:59] LABS: Urine Microscopic Reflex ORDER UMIC
[2021-07-14 06:00] LABS: Urine Bacteria <20 /HPF (<20); Urine RBC <5 /HPF (NONE SEEN); Urine Urothelial Cells <5 /HPF (NONE SEEN)
--- NOTE | 2021-07-14 06:57 | RAD REPORT ---
EXAM DESCRIPTION: RAD - Chest Single View - 07/14/2021 5:52 am CLINICAL HISTORY: Shortness of breath COMPARISON: Portable 07/12/2021, CT chest 07/12/2021 TECHNIQUE: AP portable chest image was obtained 07/14/2021 5:52 am . FINDINGS: Lung volumes are low. Interstitial and alveolar opacities seen on the prior imaging have s ubstantially cleared. Heart size and central vasculature have decreased in prominence. Heart size is now normal range. No measurable pleural effusion and no pneumothorax. No acute bony abnormality seen. No acute aortic findings suspected. IMPRESSION: Significant clearing of the bilateral interstitial and airspace opacity seen on prior im aging.
[2021-07-14] MEDS: INSULIN -REGULAR HUMAN 50 UNIT/0.5 ML ML SQ SCH ×4 (07:59→20:12)
[2021-07-14] MEDS: ENOXAPARIN 100 MG/ML SYR SQ SCH ×2 (07:59→19:59)
[2021-07-14] MEDS: FUROSEMIDE 40 MG TABLET PO SCH (08:00)
--- NOTE | 2021-07-14 10:50 | P.PN ---
Subjective Date of Service: 07/14/21 Subjective: No new changes, No C/O voiced, Improving Review of Systems 10-point ROS is otherwise unremarkable Physical Examination - Vital Signs Temperature: 96.6 F Blood Pressure: 135/54 Pulse: 79 Respirations: 16 Pulse Ox (%): 99 - Physical Exam General: Alert, In no apparent distress, Oriented x3 HEENT: Atraumatic, PERRLA, EOMI Neck: Supple, JVD not distended Respiratory: Clear to auscultation bilaterally, Normal air movement Cardiovascular: Regular rate/rhythm, Normal S1 S2 Gastrointestinal: Normal bowel sounds, No tenderness Musculoskeletal: No tenderness Integumentary: No rashes Neurological: Normal speech, Normal tone, Normal affect Lymphatics: No axilla or inguinal lymphadenopathy - Studies Medications List Reviewed: Yes Assessment & Plan - Problems (Diagnosis) (1) Pneumonia Current Visit: Yes Status: Acute Qualifiers: Pneumonia type: due to unspecified organism Laterality: bilateral Lung location: unspecified part of lung Qualified Code(s): J18.9 - Pneumonia, unspecified organism (2) UTI (urinary tract infection) Current Visit: Yes Status: Acute Qualifiers: Urinary tract infection type: acute cystitis Hematuria presence: without hematuria Qualified Code(s): N30.00 - Acute cystitis without hematuria (3) Coronary artery disease Current Visit: Yes Status: Chronic Qualifiers: Coronary Disease-Associated Artery/Lesion type: unspecified vessel or lesion type [place] vs. transplanted heart: [place] heart Associated angina: with unstable angina Qualified Code(s): I25.110 - Atherosclerotic heart disease of [place] coronary artery with unstable angina pectoris (4) Diabetes mellitus Onset Date: 03/15/17 Current Visit: Yes Status: Chronic (5) Diabetic neuropathy Current Visit: Yes Status: Chronic Qualifiers: Diabetes mellitus type: type 2 Diabetes mellitus complication detail: diabetic polyneuropathy Qualified Code(s): E11.42 - Type 2 diabetes mellitus with diabetic polyneuropathy (6) H/O heart artery stent Current Visit: Yes Status: Chronic (7) Rheumatoid arthritis RA Onset Date: 03/15/17 Current Visit: Yes Status: Chronic (8) DJD (degenerative joint disease) Onset Date: 04/12/16 Current Visit: No Status: Chronic Qualifiers: (9) Obstructive sleep apnea Current Visit: No Status: Suspected - Plan Plan: 1. Continue with IV antibiotics 2. Awaiting sputum and blood culture 3. Repeat chest x-ray 4. CT scan of the chest if pneumonia is not improving- 5. Appreciate pulmonary consultation 6. Continue with nebs as needed 7. O2 per protocol 8. Continue with gentle hydration 9. Repeat labs including CBC and renal function in a.m. 10. GI and DVT prophylaxis Discharge Plan: Home Plan to discharge in: Greater than 2 days - Advance Directives Does patient have a Living Will: Yes Does patient have a Durable POA for Healthcare: No - Code Status/Comfort Care Code Status Assessed: Yes Code Status: Full Code Critical Care: No Time Spent Managing PTS Care (In Minutes): 45
[2021-07-14] MEDS ORDERED: VANCOMYCIN 1.75 GM in NA CHLORIDE 0.9% 500 ML IVPB SCH ×2 (11:00→17:00)
[2021-07-14] MEDS ORDERED: CEFTRIAXONE 1,000 MG in NA CHLORIDE 0.9% 50 ML IVPB ONE (16:35)
[2021-07-15 05:59] LABS: Absolute Lymphocytes (CBC) 1.4 K/uL (0.7-4.9); Hematocrit 30.5 % (36.0-45.0); Lymphocytes % 21.9 % (15.3-44.8); MPV 7.3 fL (7.6-11.3); RBC Red Blood Cell Count 3.44 M/uL (3.86-4.86)
[2021-07-15 06:16] LABS: Albumin 3.1 g/dL (3.4-5.0); Bilirubin Total 0.4 mg/dL (0.2-1.0); Magnesium 1.9 mg/dL (1.8-2.4); Potassium 3.6 mmol/L (3.5-5.1); Protein, Total 6.8 g/dL (6.4-8.2)
--- NOTE | 2021-07-15 07:32 | RAD REPORT ---
EXAM DESCRIPTION: Ivis Single View07/15/2021 6:05 am CLINICAL HISTORY: Chest pain COMPARISON: July 14 FINDINGS: Pulmonary opacities appear mostly resolved. Heart is normal size
[2021-07-15 08:52] VITALS: O2SAT 97
[2021-07-15] MEDS: ENOXAPARIN 100 MG/ML SYR SQ SCH (09:00)
[2021-07-15] MEDS: INSULIN -REGULAR HUMAN 50 UNIT/0.5 ML ML SQ SCH ×3 (09:20→16:55)
[2021-07-15] MEDS: FUROSEMIDE 40 MG TABLET PO SCH (09:21)
--- NOTE | 2021-07-15 13:26 | PN ---
The patient was admitted with pneumonia and chest pain. She is known to have significant coronary ar simone disease, status post multiple stents in her RCA. She has more stenosis in her RCA that needs to be dealt with on July 21. She came in with elevated troponin, chest pain, was found to have a pneumo mike for which she is getting antibiotics. Echocardiogram showed an ejection fraction of 51%, normal wall motion abnormalities, and no effusion. On 07/14/2021, the patient's blood pressure was 127/55. She was in sinus rhythm. She was afebrile. Glucose was 250. Her creatinine was normal, mildly ane noah at 9.6. Her glucose however was about 452, last troponin was 943. She is on appropriate therapy with Lasix, Lovenox, antibiotics, steroid, insulin. She is also on Plavix, Lipitor. I agree with h er present regimen. Continue her metoprolol. Continue her isosorbide. We will plan to have her do the intervention on July 21, and as far as I am concerned, she can go home whenever it is okay with aakash norris physician. MARJORIE/EVI Voice ID: [id number] Report ID: [id number]
[2021-07-15] MEDS ORDERED: ONDANSETRON 4 MG/2 ML VIAL IV PRN (14:37)
[2021-07-15] MEDS ORDERED: METHYLPREDNISOLONE 40 MG INJ IV ONE (14:40)
--- NOTE | 2021-07-15 15:40 | RAD REPORT ---
EXAM DESCRIPTION: RAD - Abdomen W Erect - 07/15/2021 3:28 pm CLINICAL HISTORY: N/V COMPARISON: ABDOMEN W ERECT dated 09/03/2010; Thorax Wo Con dated 07/12/2021 FINDINGS: Gastric band. Surgical clips in right upper quadrant. The bowel gas pattern is nonobstruct nevaeh. No fractures identified. IMPRESSION: Nonobstructive bowel gas pattern.
[2021-07-15] MEDS ORDERED: CEFTRIAXONE 1,000 MG in NA CHLORIDE 0.9% 50 ML IVPB SCH (16:00)
[2021-07-15 16:49] VITALS: BP 127/67; TEMP 97.7
== END 2021-07-15 18:02 | disposition home or self-care (01) | DRG 302 ==
LOC: ER 20:19 → ERHOLD 07-13 01:27 → 4TH 07-13 10:57 → 2ND 07-14 18:10
PROVIDERS: ADMIT Hospitalist; ATTEND Hospitalist
DX: I25.110 Atherosclerotic heart disease of native coronary artery with unstable angina pectoris (principal); J18.9 Pneumonia, unspecified organism; N30.00 Acute cystitis without hematuria; I10 Essential (primary) hypertension; R77.8 Other specified abnormalities of plasma proteins; E11.42 Type 2 diabetes mellitus with diabetic polyneuropathy; E11.65 Type 2 diabetes mellitus with hyperglycemia; E83.42 Hypomagnesemia; M06.9 Rheumatoid arthritis, unspecified; D64.9 Anemia, unspecified; M47.9 Spondylosis, unspecified; E88.81 Metabolic syndrome and other insulin resistance; I25.2 Old myocardial infarction; Z79.02 Long term (current) use of antithrombotics/antiplatelets; Z79.82 Long term (current) use of aspirin; Z79.899 Other long term (current) drug therapy; Z79.4 Long term (current) use of insulin; Z91.041 Radiographic dye allergy status; Z95.5 Presence of coronary angioplasty implant and graft; Z98.84 Bariatric surgery status; Z96.653 Presence of artificial knee joint, bilateral; Z90.49 Acquired absence of other specified parts of digestive tract; Z28.310 Unvaccinated for COVID-19; Z20.822 Contact with and (suspected) exposure to COVID-19; Z82.49 Family history of ischemic heart disease and other diseases of the circulatory system; Z80.0 Family history of malignant neoplasm of digestive organs
CPT/HCPCS: 36415; 51702; 71045; 71250; 74019; 80048; 80053; 80061; 80076; 81003; 81015; 82550; 82553; 82947; 83036; 83605; 83690; 83735; 83880; 84100; 84145; 84484; 85025; 85610; 85730; 87040; 87077; 87086; 87088; 87186; 93005; 93306; 97110; 97116; 97161; 97530; 99285; J0692; J1644; J1650; J1815; J1940; J2405; J2920; J2930; J3370; J3475; J3490; J7030; J7040; J7050; U0003

== ENCOUNTER 2021-10-15 14:48 | Observation (INO) | payer BC, OTHER ==
--- OUTSIDE RECORDS SUMMARY | 2021-10-15 14:55 | XMS REPORT | Continuity of Care Document ---
:1960 Author Organization [facility] t Address [address] [place] [address] Care Team Providers Name Role Phone Carrie Costa ANP, Sheet Rock Taper Primary Care Physician [phone] Dany Mcdonald Attending Clinician Unavailable Patricia Sue MD Attending Clinician Unavailable Kevin Meek Attending Clinician Unavailable Alejandra Zeng Attending Clinician Unavailable Yani Hameed Attending Clinician Mike RYAN, Rachel Huffman Attending Clinician Doctor Unassigned, [place] Attending Clinician Unavailable EDA ZELAYA Attending Clinician Unavailable Kevin Meek Admitting Clinician Unavailable Alejandra Zeng Admitting Clinician Unavailable [facility] Admitting Clinician Unavailable EDA ZELAYA Admitting Clinician Unavailable Payers Payer Name Policy Type Policy Number Effective Date Expiration Date S ource Problems Condition Condition Condition Status Onset Resolution Last Treating Co mments Source Name Details Category Date Date Treatment Clinician Date Colitis Colitis Disease Active 2020-03 Univers 1-07 ity of 00:00: [place] [facility] At risk At risk Disease Active 2020-03 Univers for falls for falls 03-19 ity of 00:00: [place] [facility] 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 03-19 ity of with with 00:00: [place] depressive depressive 00 Me dical features features Branch due to due to medical medical condition condition Late Late Disease Active 2020-03 Univers effects of effects of 03-19 it y of CVA CVA 00:00: [place] (cerebrova (cerebrova 00 Me dical scular scular Branch accident) accident) History of History of Disease Active 2020-03 U nivers stroke stroke 0-29 ity of 00:00: [place] 00 Medical Branch Generalize Generalize Disease Active U nivers d pain d pain 9-24 ity of 00:00: [place] [facility] Chest pain Chest pain Disease Active 2019-03 U nivers due to CAD due to CAD 2-31 it y of 00:00: [place] [facility] Proliferat Proliferat Disease Active 2018-03 [...] ally from mellitus mellitus request for surgery [id number] Gastric Gastric Disease Active Univers band band 8-07 ity of slippage slippage 00:00: [place] 00 Medical Branch NSVT NSVT Disease Active Univers (nonsustai (nonsustai 3-09 it y of adán adán 00:00: [place] ventricula ventricula 00 Me dical r r Branch tachycardi tachycardi a) a) Total knee Total knee Disease Active U nivers replacemen replacemen 3-05 it y of t status t status 00:00: [place] 00 Medical Branch Diabetes Diabetes Disease [facility] Colon Colon Disease Active 2016-03 Univers [...] bilateral 5-11 ity of 00:00: [place] 00 [facility] Branch IDDM IDDM Disease Active Univers (insulin (insulin 4-01 ity of dependent dependent 00:00[place] diabetes diabetes 00 Medica l mellitus) mellitus) Bran ch Generalize Generalize Disease Active Overview : Univers d d 828 Formattin ity of osteoarthr osteoarthr 00:00: g of this [place] osis of osis of 00 note Medical hand hand might be Branch different from the original. ICD10 Diagnosis Term [employer] Diabetic Diabetic Disease Active Unive rs peripheral peripheral 8-27 it y of neuropathy neuropathy [place] [facility] Branch Diabetes Diabetes Disease Active 2011-03 Overview: Un alex mellitus mellitus 1-02 Formattin ity of type 2, type 2, 00:00: g of this [place] uncontroll uncontroll 00 note Me dical ed, ed, might be Branch without without different complicati complicati from the ons ons original. ICD10 Diagnosis Term [employer] Obesity Obesity Disease Active 2011-03 Overview: Univ ers 03-14 Formattin ity of 00:00: g of this [place] 00 note Medical might be Branch different from the original. ICD10 Diagnosis Term [employer] HLD HLD Disease Active 2011-03 Overview: Univer s (hyperlipi (hyperlipi 03-14 Formattin ity of demia) demia) 00:00: g of this [place] note Medical might be Branch different from the original. ICD10 Diagnosis Term [employer] Elevated Elevated Disease Active 2011-03 Unive rs BP BP 03-14 ity of 00:: [place] [facility] Mild Mild Disease Active 2011-03 Univers vitamin D vitamin D 03-14 ity of deficiency deficiency [place] [facility] Raynaud's Raynaud's Disease Active Uni vers syndrome syndrome -18 ity of 00:: [place] [facility] Rheumatoid Rheumatoid Disease Active Overview : Univers arthritis arthritis 18 Formattin i ty of 00:00: g of this [place] note Medical might be Branch different from the original. ICD10 Diagnosis Term [employer] Chronic Chronic Disease Active Univers pain pain 18 ity of syndrome syndrome 00:00: [place] [facility] Allergies, Adverse Reactions, Alerts Allergy Allergy Status Severity Reaction(s) Onset Inactive Treating Comm ents Source Name Type Date Date Clinician iodine DA Active [place] HIVES [facility] 5-11 Clear 00:00: D[facility] iodine DA Active MO HIVES [facility] 2-28 Clear 00:00: [facility] Shellfis Propensi Active Anaphylaxis 0 U nivers h ty to 1-14 ity of Derived adverse 00:00: [place] reaction 00 [facility] s Branch Iodinate Propensi Active Hives [address] [facility] [facility] ty to 1-01 [facility] Contrast adverse 00:00: Medical Media reaction 00 Center s Iodine Propensi Active Rash Other [facility] And ty to 5-11 reaction( [facility] Iodide adverse 00:00: s): Medical Containi reaction 00 Itching Cente r ng s and Products swelling Iodine Propensi Active Rash Univers And ty to 5-11 ity of Iodide adverse 00:00: [place] Containi reaction 00 Medica l ng s Branch Products IODINE DA Active U OK W/ 2004-0 [facility] CONTRAST BETADINE 8-24 Clear PREP 00:00: [facility] No Known DA Active U 2004-0 [facility] Drug 8-24 Clear Allergie 00:00: [facility] No Known DA Active U 2004-0 [facility] Other 8-24 Clear Allergie 00:00: [facility] SHRIMP DA Active U 2003- [facility] 8-24 Clear 00:00: [facility] iodine DA Active U 2003-0 [facility] 2-10 Clear 00:00: [facility] Family History Family Member Diagnosis Comments Start Date Stop Date Source Natural father Heart disease [facility] Natural mother Cancer [facility] Social History Social Habit Start Date Stop Date Quantity Comments Source History SDIL [facility] Alcohol Comment Medical C enter History SDOH [facility] Alcohol Std Medical Cente r Drinks History SDIL [facility] Alcohol Binge Medical [facility] Alcohol intake 2018-10-15 2018-10-[address] [facility] 00:00:00 00:00:00 non-drinker of Medical Ce nter alcohol (finding) History SDOH 2018-10-15 2018-10-[address] [facility] Alcohol Frequency 00:00:00 00:00:00 [facility] Tobacco use and 2014-09-01 2014-09-01 Smokeless tobacco Un iversity of exposure 00:00:00 00:00:00 non-user [facility] Sex Assigned At [address] [facility] 00:00:00 00:00:00 [facility] Smoking Status Start Date Stop Date Source Never smoked tobacco [facility] Medications Ordered Filled Start Stop Current Ordering Indication Dosage Frequency Signature Comments Components Source Medication Medication Date Date Medication? Clinician (SIG) Name Name predniSONE Yes Univers 50 mg 4-12 ity of tablet 00:00: [address] methotrexat Yes TAKE 5 Univ ers e 2.5 mg 4-07 TABLETS BY ity o f tablet 00:00: MOUTH 1 [place] 00 TIME Medical WEEKLY Branch TRESIBA Yes [id number] 26U INJECT 26 U nivers FLEXTOUCH 4-06 UNITS ity of U-100 100 00:00: UNDER THE [place] as unit/mL (3 00 SKIN Medical mL) InPn DAILY. MAX Branc h DAILY DOSE OF 40 UNITS atorvastati Yes 40mg Take 1 Univ ers n 40 mg 1-20 tablet by ity of tablet 00:00: mouth at [place] 00 bedtime. Medical Branch gabapentin Yes [id number] 600mg Take 1 Univers 600 mg 1-07 tablet by ity of tablet 00:00: mouth 2 [place] 00 (two) Medical times Branch daily. ISOSORBIDE 2020-03 Yes [id number] 30mg TAKE 1 U nivers MONONITRATE 2-10 TABLET BY ity of 30 mg 24 hr 00:00: MOUTH [place] tablet 00 DAILY Medical Branch insulin 2020-03 Yes [id number] INJECT 10 U nivers aspart 2-09 UNITS ity of U-100 00:00: SUBCUTANEO [place] (NOVOLOG 00 US BEFORE Medica l FLEXPEN [...] of Branch methotrexa te DULoxetine 2020-03 Yes [id number] 20mg Take 1 U nivers 20 mg 0-29 capsule by ity of capsule 00:00: mouth [place] 00 every Medical morning. Branch empaglifloz 2020-03 Yes [id number] 1{tbl} Take 1 Univers in-metformi 0-11 tablet by ity of n (SYNJARDY 00:00: mouth [place] XR) 00 daily. Medical 25-1,000 mg Branch TBph Insulin 2020-03 Yes [id number] Use as Univ ers [place], 0-11 directed 4 ity o f Disposable, [...] 24 times Medical daily. 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 clopidogreL Yes [id number] 75mg Take 1 Univers (PLAVIX) 75 1-01 tablet by ity of mg tablet 00:00: mouth [place] 00 daily. Medical Branch aspirin 81 Yes [id number] 81mg Take 1 Univers mg chewable 1-01 tablet by ity of tablet 00:00: mouth [place] 00 daily. Medical Branch tofacitinib 2018-03 Yes [id number] 11mg Take 11 mg Univers (XELJANZ 2-18 by mouth ity of XR) 11 mg 00:00: daily. [place] Tb24 00 Medical Branch insulin 2018- Yes 12U QD Inject 12 [facility] glargine 8-08 Units [facility] (LANTUS) 00:04: subcutaneo Med ical 100 unit/mL 52 usly Center injection nightly Use as directed . insulin Yes Inject [facility] aspart 8-08 subcutaneo [facility]ukes U-100 00:04: usly 3 Medical (NOVOLOG) 52 (three) Center 100 unit/mL times injection daily before meals. insulin Yes 12U QD Inject 12 [facility] t glargine 8-08 Units [facility] (LANTUS) 00:04: subcutaneo Med ical 100 unit/mL 52 usly Center injection nightly Use as directed . insulin 2019-[address] [facility] aspart 8-08 subcutaneo [facility]ukes U-100 00:04: usly 3 Medical (NOVOLOG) 52 (three) Center 100 unit/mL times injection daily before meals. Immunizations Ordered Filled Immunization Date Status Comments Sourese e Immunization Name Name Influenza Virus 2021-01-08 Completed Universit y of Vaccine Quad IM, 00:00:00 [facility] dical Preserv and ABX Branch Free 6 MO-64 YRS Influenza Virus 2019-11-12 Completed Universit y of Vaccine 00:00:00 [facility] Zoster Vaccine 2019-03-25 Completed University of Recombinant 00:00:00 [facility] Zoster Vaccine 2019-01-18 Completed University of Recombinant 00:00:00 [facility] Procedures Procedure Date / Time Performed Performing Clinician Tri e [id number] 2021-06-24 00:00:00 CHAAB.01 [facility] [id number] 2021-06-24 00:00:00 [facility]AAB.01 [facility] [id number] 2021-06-24 00:00:00 CHAAB.01 [facility] [id number] 2021-06-24 00:00:00 CHAAB.01 [facility] [id number] 2021-06-24 00:00:00 CHAAB.01 [facility] [id number] 2021-06-24 00:00:00 CHAAB.01 [facility] [id number] 2021-06-23 00:00:00 RASSA [facility] [id number] 2021-06-23 00:00:00 RASSA [facility] [id number] 2021-06-23 00:00:00 RASSA [facility] [id number] 2021-06-23 00:00:00 RASSA [facility] [id number] 2021-06-23 00:00:00 RASSA [facility] [id number] 2021-06-23 00:00:00 RASSA [facility] Plan of Care Planned Activity Planned Date Details Comments Source Future Scheduled 2021-11-[address] [facility] Test 00:00:00 (Season Ended) [code = Medic ok Center INFLUENZA VACCINE (Season Ended)] Future Scheduled 2021-03-[address] [facility] Test 00:00:00 (12+) [code = Medical Center DEPRESSION SCREENING (12+)] Future Scheduled 2020-11-11 INFLUENZA VACCINE (#1) [facility] 00:00:00 [code = INFLUENZA Medical Ce nter VACCINE (#1)] Future Scheduled 2020-03-[address] [facility] Test 00:00:00 (12+) [code = Medical Center DEPRESSION SCREENING (12+)] Future Scheduled 2019-01-[address] [facility] Test 00:00:00 measurement (procedure) [facility] [code = 40408690] Future Scheduled 2019-01-[address] [facility] Test 00:00:00 measurement (procedure) [facility] [code = 03259351] Future Scheduled 2012 SHINGLES VACCINES ([address] [facility] Test 00:00:00 2) [code = SHINGLES [facility] VACCINES (1 of 2)] Future Scheduled 2012 SHINGLES VACCINES ([address] [facility] Test 00:00:00 2) [code = SHINGLES [facility] VACCINES (1 of 2)] Future Scheduled 2007 Lipid panel (procedure) [facility] Test 00:00:00 [code = 76017628] Medical Ce nter Future Scheduled 2007 Lipid panel (procedure) [facility] Test 00:00:00 [code = 09493633] Medical Ce nter Future Scheduled 1983 Screening for malignant [facility] Test 00:00:00 neoplasm of cervix Medical C enter (procedure) [code = 336688729] Future Scheduled 1983 Screening for malignant [facility] Test 00:00:00 neoplasm of cervix Medical C enter (procedure) [code = 884888087] Future Scheduled 1981 DTAP/TDAP/TD VACCINES [facility] 00:00:00 (1 - Tdap) [code = Medical C enter DTAP/TDAP/TD VACCINES (1 - Tdap)] Future Scheduled 1981 DTAP/TDAP/TD VACCINES [facility] 00:00:00 (1 - Tdap) [code = Medical C enter DTAP/TDAP/TD VACCINES (1 - Tdap)] Future Scheduled 1980 HEPATITIS C SCREENING [facility] 00:00:00 [code = HEPATITIS C Medical Center SCREENING] Future Scheduled 1980 HEPATITIS C [facility]CRE[facility]ING [facility] 00:00:00 [code = HEPATITIS C Medical Center SCREENING] Future Scheduled 1974 COVID-19 VACCINE (1) [facility] Test 00:00:00 [code = COVID-[address] VACCINE (1)] Future Scheduled 1972 DIABETIC EYE EXAM [code [facility] Test 00:00:00 = DIABETIC EYE EXAM] Medical Center Future Scheduled [address] [facility] Test 00:00:00 examination Medical Center (regime/therapy) [code = 521751965] Future Scheduled 1972 Urine screening for [facility] Test 00:00:00 protein (procedure) Medical Center [code = 385656682] Future Scheduled 1972 DIABETIC EYE EXAM [code [facility] Test 00:00:00 = DIABETIC EYE EXAM] Medical Center Future Scheduled [address] Test 00:00:00 examination Medical Center (regime/therapy) [code = 957508720] Future Scheduled 1972 Urine screening for [facility] Test 00:00:00 protein (procedure) Medical Center [code = 593518297] Future Scheduled [address] [facility] Test 00:00:00 0-64 YRS (1 of 2 - Medical C enter PPSV23) [code = PNEUMOCOCCAL VACCINE 0-64 YRS (1 of 2 - PPSV23)] Future Scheduled [address] [facility] Test 00:00:00 0-64 YRS (1 of 2 - Medical C enter PPSV23) [code = PNEUMOCOCCAL VACCINE 0-64 YRS (1 of 2 - PPSV23)] Future Scheduled 1967 COVID-19 VACCINE (1) [facility] Test 00:00:00 [code = COVID-[address] VACCINE (1)] Future Scheduled 1962 Screening for malignant [facility] Test 00:00:00 neoplasm of breast Medical C enter (procedure) [code = 514521190] Future Scheduled 1962 Screening for malignant [facility] Test 00:00:00 neoplasm of colon Medical Ce nter (procedure) [code = 441170810] Future Scheduled 1962 Screening for malignant [facility] Test 00:00:00 neoplasm of breast Medical C enter (procedure) [code = 350786962] Future Scheduled 1962 CT Colonography (combo) [facility] Test 00:00:00 [code = CT Colonography [facility] (combo)] Future Scheduled 1962 Screening for malignant [facility] Test 00:00:00 neoplasm of colon Medical Ce nter (procedure) [code = 783621304] Future Scheduled 1962 Screening for malignant [facility] Test 00:00:00 neoplasm of colon Medical Ce nter (procedure) [code = 728290588] Future Scheduled 1962 Screening for malignant [facility] Test 00:00:00 neoplasm of colon Medical Ce nter (procedure) [code = 719077561] Future Scheduled 1962 Screening for malignant [facility] Test 00:00:00 neoplasm of colon Medical Ce nter (procedure) [code = 843403003] Future Scheduled 1960 Sigmoidoscopy [code = [facility] 00:[facility]:00 Sigmoidoscopy] Medical Cente r Encounters Start End Encounter Admission Attending Care Care Encounter Source Date/Time Date/Time Type Type Clinicians Facility Department ID 2021-06-21 Inpatient ANIL Mcdonald GENE OUTD [id number] [facility] 13:00:00 Dany [id number] [facility] 2021-09-24 2021-09-24 Telephone Otonielsue [facility] [id number] [facility] 00:00:00 00:00:00 [employer] [id number] it y of [place] [id number] [place] as JONATHON?BLEA [id number] [address] MEDICAL OFFICE BUILDING 2021-07-21 2021-07-23 Inpatient JAMES PenaCARISSA INTE [id number] [facility] 05:18:00 16:56:00 [facility] [id number] [facility] 2021-07-21 2021-07-23 Inpatient ANIL Meek, HCACL INTE [id number] [facility] 05:18:00 16:56:00 [facility] 20 [facility] 2021-06-23 2021-06-30 Inpatient ANIL Zeng, HCACL INTE.02 [id number] [facility] 14:22:00 12:30:00 Alejandra [id number] [facility] 2021-06-23 2021-06-30 Inpatient ANIL Zeng, HCACL INTE.02 [id number] [facility] 14:22:00 12:30:00 Alejandra 58 [facility] 2021-05-12 2021-05-13 Inpatient ANIL Meek HCACL INTE.02 [id number] [facility] 08:50:00 19:04:00 [facility] [id number] [facility] 2021-05-12 2021-05-13 Inpatient ANIL Meek, HCACL INTE.02 [id number] [facility] 08:50:00 19:04:00 [facility] 14 [facility] 2021-05-10 2021-05-10 Outpatient ANIL Mcdonald HCACL OUTD [id number] [facility] 13:09:00 13:09:00 [facility] [id number] [facility] 2020-03-26 2020-03-[address] [facility] [id number] 11:51:00 18:13:00 Yani Burch [id number] [place] [id number] [place] [id number] 2020-03-26 2020-03-26 Telephone Mike SCAYDEN [id number] 00:00:00 00:00:00 Rachel Burch [id number] [place] [id number] Professio [id number] nal 059 [facility] 2020-03-16 2020-03-16 Office Mike [facility] [id number] 08:45:41 09:51:05 Visit Rachel Burch [id number] [place] 4.2.7.2.686 [place] [id number] counts include 234 beds at the [facility] 059 Building 2020-03-16 2020-03-16 Orders Doctor ASHLEY [id number] 00:00:00 00:00:00 Only Unassigned, PASCALE [id number] [place] [facility] [id number] [id number] Results Test Description Test Time Test Comments Results Result Comments Source GLUCOSE BEDSIDE 2021-07-23 20:43:00 Test Item Value Reference Range Interpretation Comme [facility] GLUCOSE BEDSIDE (test code = 238 MG/DL 70-110 H Performed by certified 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 GLUCOSE [id number] 11:42:00 Test Item Value Reference Range Interpretation Comments GLUCOSE BEDSIDE (test 240 MG/DL 70-110 H [facility] med by certified code = GLUBED) 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 [facility] BASIC METABOLIC [id number] 11:01:00 Test Item Value Reference Range Interpretation Comments SODIUM (test code = NA) 139 mEq/L 134-147 N POTASSIUM (test code = 4.2 mEq/L 3.4-5.0 N K) CHLORIDE (test code = 107 mEq/L 100-108 N CL) CARBON DIOXIDE (test 25 mEq/l 21-33 N code = CO2) ANION GAP (test code = 11 0-20 N GAP) GLUCOSE (test code = 220 mg/dL 70-110 H GLU) BLOOD UREA NITROGEN 26 mg/dL 7-18 H (test code = BUN) GLOMERULAR FILTRATION 46.0 90-95 L Units of measure = RATE (test code = GFR) ml/mi n/1.73 m2 CREATININE (test code = 1.2 mg/dL 0.6-1.3 N CREAT) CALCIUM (test code = 7.9 mg/dL 8.0-10.5 L CA) [id number] 11:01:00 Test Item Value Reference Range Interpretation Comments PHOSPHOROUS (test code = PHOS) 2.4 MG/DL 2.5-4.9 L [id number] 11:01:00 Test Item Value Reference Range Interpretation Comments MAGNESIUM (test code = MAG) 1.89 mg/dL 1.80-2.40 CALCIUM [id number] 11:01:00 Test Item Value Reference Range Interpretation Comments CALCIUM IONIZED (test code = RYLEE) 1.15 MMOL/L 1.12-1.32 N GLUCOSE [id number] 08:02:00 Test Item Value Reference Range Interpretation Comments GLUCOSE BEDSIDE (test 183 MG/DL 70-110 H Perfor med by certified code = GLUBED) 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 [facility] CBC W/AUTO [id number] 05:11:00 Test Item Value Reference Range Interpretation Comments WHITE BLOOD CELL (test code = 8.8 x10 3/uL 4.5-11.0 WBC) RED BLOOD CELL (test code = 2.78 x10 6/uL 3.54-5.02 L RBC) HEMOGLOBIN (test code = HGB) 8.2 g/dL 11.0-15.0 L HEMATOCRIT (test code = HCT) 25.2 % 33.0-45.0 L MEAN CELL VOLUME (test code = 90.6 fL 81.0-99.0 N MCV) MEAN CELL HGB (test code = MCH) 29.5 pg 27.0-33.0 N MEAN CELL HGB CONCETRATION 32.5 g/dL 33.0-37.0 L (test code = MCHC) RED CELL DISTRIBUTION WIDTH CV 16.7 % 11.5-14.5 H (test code = RDW) RED CELL DISTRIBUTION WIDTH SD 55.6 fL 37.0-54.0 H (test code = RDW-SD) PLATELET COUNT (test code = 213 x10 3/uL 150-400 N PLT) MEAN PLATELET VOLUME (test code 9.8 fL 7.0-9.0 H = MPV) NEUTROPHIL % (test code = NT%) 63.3 % 56.0-77.0 N IMMATURE GRANULOCYTE % (test 1.4 % 0.0-2.0 N code = IG%) LYMPHOCYTE % (test code = LY%) 23.2 % 14.0-32.0 N MONOCYTE % (test code = MO%) 10.5 % 4.8-9.0 H EOSINOPHIL % (test code = EO%) 1.3 % 0.3-3.7 N BASOPHIL % (test code = BA%) 0.3 % 0.0-2.0 N NUCLEATED RBC % (test code = 0.0 % 0-0 N NRBC%) NEUTROPHIL # (test code = NT#) 5.55 x10 3/uL 2.0-7.6 N IMMATURE GRANULOCYTE # (test 0.12 x10 3/uL 0.00-0.03 H code = IG#) LYMPHOCYTE # (test code = LY#) 2.03 x10 3/uL 1.0-3.8 N MONOCYTE # (test code = MO#) 0.92 x10 3/uL 0.1-0.8 H EOSINOPHIL # (test code = EO#) 0.11 x10 3/uL 0.0-0.2 N BASOPHIL # (test code = BA#) 0.03 x10 3/uL 0.0-0.2 N NUCLEATED RBC # (test code = 0.00 x10 3/uL 0.0-0.1 N NRBC#) MANUAL DIFF REQUIRED (test code NO = MDIFF) GLUCOSE [id number] 20:13:00 Test Item Value Reference Range Interpretation Comments GLUCOSE BEDSIDE (test 251 MG/DL 70-110 H Perfor med by certified code = GLUBED) 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 [facility] CBC W/AUTO [id number] 15:36:00 Test Item Value Reference Range Interpretation Comments WHITE BLOOD CELL (test code = 14.8 x10 3/uL 4.5-11.0 H WBC) RED BLOOD CELL (test code = 2.77 x10 6/uL 3.54-5.02 L RBC) HEMOGLOBIN (test code = HGB) 8.1 g/dL 11.0-15.0 L HEMATOCRIT (test code = HCT) 25.0 % 33.0-45.0 L MEAN CELL VOLUME (test code = 90.3 fL 81.0-99.0 N MCV) MEAN CELL HGB (test code = 29.2 pg 27.0-33.0 N MCH) MEAN CELL HGB CONCETRATION 32.4 g/dL 33.0-37.0 L (test code = MCHC) RED CELL DISTRIBUTION WIDTH CV 16.3 % 11.5-14.5 H (test code = RDW) PLATELET COUNT (test code = 256 x10 3/uL 150-400 N PLT) NEUTROPHIL % (test code = NT%) 71.9 % 56.0-77.0 N LYMPHOCYTE % (test code = LY%) 17.7 % 14.0-32.0 N NEUTROPHIL # (test code = NT#) 10.65 x10 3/uL 2.0-7.6 H LYMPHOCYTE # (test code = LY#) 2.62 x10 3/uL 1.0-3.8 N MANUAL DIFF REQUIRED (test NO code = MDIFF) RED CELL DISTRIBUTION WIDTH SD 53.8 fL 37.0-54.0 N (test code = RDW-SD) MEAN PLATELET VOLUME (test 9.8 fL 7.0-9.0 H code = MPV) IMMATURE GRANULOCYTE % (test 0.8 % 0.0-2.0 N code = IG%) MONOCYTE % (test code = MO%) 9.2 % 4.8-9.0 H EOSINOPHIL % (test code = EO%) 0.3 % 0.3-3.7 N BASOPHIL % (test code = BA%) 0.1 % 0.0-2.0 N NUCLEATED RBC % (test code = 0.0 % 0-0 N NRBC%) IMMATURE GRANULOCYTE # (test 0.12 x10 3/uL 0.00-0.03 H code = IG#) MONOCYTE # (test code = MO#) 1.37 x10 3/uL 0.1-0.8 H EOSINOPHIL # (test code = EO#) 0.05 x10 3/uL 0.0-0.2 N BASOPHIL # (test code = BA#) 0.02 x10 3/uL 0.0-0.2 N NUCLEATED RBC # (test code = 0.00 x10 3/uL 0.0-0.1 N NRBC#) GLUCOSE [id number] 11:15:00 Test Item Value Reference Range Interpretation Comments GLUCOSE BEDSIDE (test 148 MG/DL 70-110 H Perfor med by certified code = GLUBED) 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 [facility] GLUCOSE [id number] 06:11:00 Test Item Value Reference Range Interpretation Comments GLUCOSE BEDSIDE (test 106 MG/DL 70-110 N Perfor med by certified code = GLUBED) 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 [facility] BASIC METABOLIC [id number] 05:29:00 Test Item Value Reference Range Interpretation Comments SODIUM (test code = NA) 135 mEq/L 134-147 N POTASSIUM (test code = 4.6 mEq/L 3.4-5.0 N K) CHLORIDE (test code = 106 mEq/L 100-108 N CL) CARBON DIOXIDE (test 22 mEq/l 21-33 N code = CO2) ANION GAP (test code = 11 0-20 N GAP) GLUCOSE (test code = 151 mg/dL 70-110 H GLU) BLOOD UREA NITROGEN 24 mg/dL 7-18 H (test code = BUN) GLOMERULAR FILTRATION 41.9 90-95 L Units of measure = RATE (test code = GFR) ml/mi n/1.73 m2 CREATININE (test code = 1.3 mg/dL 0.6-1.3 N CREAT) CALCIUM (test code = 8.6 mg/dL 8.0-10.5 N CA) [id number] 05:29:00 Test Item Value Reference Range Interpretation Comments MAGNESIUM (test code = MAG) 2.54 mg/dL 1.80-2.40 H GLUCOSE [id number] 05:19:00 Test Item Value Reference Range Interpretation Comments GLUCOSE BEDSIDE (test 118 MG/DL 70-110 H [facility] med by certified code = GLUBED) 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 [facility] CBC W/AUTO [id number] 05:11:00 Test Item Value Reference Range Interpretation Comments WHITE BLOOD CELL (test code = 12.9 x10 3/uL 4.5-11.0 H WBC) RED BLOOD CELL (test code = 3.07 x10 6/uL 3.54-5.02 L RBC) HEMOGLOBIN (test code = HGB) 8.7 g/dL 11.0-15.0 L HEMATOCRIT (test code = HCT) 27.7 % 33.0-45.0 L MEAN CELL VOLUME (test code = 90.2 fL 81.0-99.0 N MCV) MEAN CELL HGB (test code = MCH) 28.3 pg 27.0-33.0 N MEAN CELL HGB CONCETRATION 31.4 g/dL 33.0-37.0 L (test code = MCHC) RED CELL DISTRIBUTION WIDTH CV 16.1 % 11.5-14.5 H (test code = RDW) RED CELL DISTRIBUTION WIDTH SD 53.1 fL 37.0-54.0 N (test code = RDW-SD) PLATELET COUNT (test code = 312 x10 3/uL 150-400 N PLT) MEAN PLATELET VOLUME (test code 9.7 fL 7.0-9.0 H = MPV) NEUTROPHIL % (test code = NT%) 76.4 % 56.0-77.0 N IMMATURE GRANULOCYTE % (test 1.5 % 0.0-2.0 N code = IG%) LYMPHOCYTE % (test code = LY%) 14.2 % 14.0-32.0 N MONOCYTE % (test code = MO%) 7.7 % 4.8-9.0 N EOSINOPHIL % (test code = EO%) 0.0 % 0.3-3.7 L BASOPHIL % (test code = BA%) 0.2 % 0.0-2.0 N NUCLEATED RBC % (test code = 0.0 % 0-0 N NRBC%) NEUTROPHIL # (test code = NT#) 9.86 x10 3/uL 2.0-7.6 H IMMATURE GRANULOCYTE # (test 0.19 x10 3/uL 0.00-0.03 H code = IG#) LYMPHOCYTE # (test code = LY#) 1.83 x10 3/uL 1.0-3.8 N MONOCYTE # (test code = MO#) 0.99 x10 3/uL 0.1-0.8 H EOSINOPHIL # (test code = EO#) 0.00 x10 3/uL 0.0-0.2 N BASOPHIL # (test code = BA#) 0.02 x10 3/uL 0.0-0.2 N NUCLEATED RBC # (test code = 0.00 x10 3/uL 0.0-0.1 N NRBC#) MANUAL DIFF REQUIRED (test code NO = MDIFF) GLUCOSE [id number] 04:07:00 Test Item Value Reference Range Interpretation Comments GLUCOSE BEDSIDE (test 170 MG/DL 70-110 H Perfor med by certified code = GLUBED) 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 [facility] GLUCOSE [id number] 03:11:00 Test Item Value Reference Range Interpretation Comments GLUCOSE BEDSIDE (test 219 MG/DL 70-110 H Perfor med by certified code = GLUBED) 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 [facility] GLUCOSE [id number] 02:08:00 Test Item Value Reference Range Interpretation Comments GLUCOSE BEDSIDE (test 256 MG/DL 70-110 H Perfor med by certified code = GLUBED) 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 [facility] GLUCOSE [id number] 01:12:00 Test Item Value Reference Range Interpretation Comments GLUCOSE BEDSIDE (test 307 MG/DL 70-110 H Perfor med by certified code = GLUBED) 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 [facility] GLUCOSE [id number] 00:14:00 Test Item Value Reference Range Interpretation Comments GLUCOSE BEDSIDE (test 333 MG/DL 70-110 H Perfor med by certified code = GLUBED) 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 [facility] GLUCOSE [id number] 23:07:00 Test Item Value Reference Range Interpretation Comments GLUCOSE BEDSIDE (test 328 MG/DL 70-110 H Perfor med by certified code = GLUBED) 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 [facility] GLUCOSE [id number] 21:15:00 Test Item Value Reference Range Interpretation Comments GLUCOSE BEDSIDE (test 402 MG/DL 70-110 H Perfor med by certified code = GLUBED) 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 [facility] GLUCOSE [id number] 20:33:00 Test Item Value Reference Range Interpretation Comments GLUCOSE BEDSIDE (test 417 MG/DL 70-110 H Perfor med by certified code = GLUBED) 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 [facility] CBC W/AUTO [id number] 19:48:00 Test Item Value Reference Range Interpretation Comments WHITE BLOOD CELL (test code = 11.0 x10 3/uL 4.5-11.0 N WBC) RED BLOOD CELL (test code = 3.02 x10 6/uL 3.54-5.02 L RBC) HEMOGLOBIN (test code = HGB) 8.8 g/dL 11.0-15.0 L HEMATOCRIT (test code = HCT) 27.2 % 33.0-45.0 L MEAN CELL VOLUME (test code = 90.1 fL 81.0-99.0 N MCV) MEAN CELL HGB (test code = MCH) 29.1 pg 27.0-33.0 N MEAN CELL HGB CONCETRATION 32.4 g/dL 33.0-37.0 L (test code = MCHC) RED CELL DISTRIBUTION WIDTH CV 16.2 % 11.5-14.5 H (test code = RDW) PLATELET COUNT (test code = 304 x10 3/uL 150-400 N PLT) NEUTROPHIL % (test code = NT%) 85.9 % 56.0-77.0 H LYMPHOCYTE % (test code = LY%) 10.4 % 14.0-32.0 L NEUTROPHIL # (test code = NT#) 9.47 x10 3/uL 2.0-7.6 H LYMPHOCYTE # (test code = LY#) 1.14 x10 3/uL 1.0-3.8 N MANUAL DIFF REQUIRED (test code NO = MDIFF) RED CELL DISTRIBUTION WIDTH SD 53.7 fL 37.0-54.0 N (test code = RDW-SD) MEAN PLATELET VOLUME (test code 9.7 fL 7.0-9.0 H = MPV) IMMATURE GRANULOCYTE % (test 1.4 % 0.0-2.0 N code = IG%) MONOCYTE % (test code = MO%) 2.2 % 4.8-9.0 L EOSINOPHIL % (test code = EO%) 0.0 % 0.3-3.7 L BASOPHIL % (test code = BA%) 0.1 % 0.0-2.0 N NUCLEATED RBC % (test code = 0.0 % 0-0 N NRBC%) IMMATURE GRANULOCYTE # (test 0.15 x10 3/uL 0.00-0.03 H code = IG#) MONOCYTE # (test code = MO#) 0.24 x10 3/uL 0.1-0.8 N EOSINOPHIL # (test code = EO#) 0.00 x10 3/uL 0.0-0.2 N BASOPHIL # (test code = BA#) 0.01 x10 3/uL 0.0-0.2 N NUCLEATED RBC # (test code = 0.00 x10 3/uL 0.0-0.1 N NRBC#) GLUCOSE [id number] 19:23:00 Test Item Value Reference Range Interpretation Comments GLUCOSE BEDSIDE (test 427 MG/DL 70-110 H Perfor med by certified code = GLUBED) 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 [facility] BASIC METABOLIC [id number] 18:50:00 Test Item Value Reference Range Interpretation Comments SODIUM (test code = NA) 133 mEq/L 134-147 L POTASSIUM (test code = 4.8 mEq/L 3.4-5.0 N K) CHLORIDE (test code = 103 mEq/L 100-108 N CL) CARBON DIOXIDE (test 22 mEq/l 21-33 N code = CO2) ANION GAP (test code = 13 0-20 N GAP) GLUCOSE (test code = 468 mg/dL 70-110 HH Critica l result GLU) called to MAY Jesus [id number] at 1850 07/21/21Nu rse read back resut and tech confirmed it's correct? YES BLOOD UREA NITROGEN 30 mg/dL 7-18 H (test code = BUN) GLOMERULAR FILTRATION 41.9 90-95 L Units of measure = RATE (test code = GFR) ml/mi n/1.73 m2 CREATININE (test code = 1.3 mg/dL 0.6-1.3 N CREAT) CALCIUM (test code = 7.8 mg/dL 8.0-10.5 L CA) [id number] 18:50:00 Test Item Value Reference Range Interpretation Comments MAGNESIUM (test code = MAG) 1.79 mg/dL 1.80-2.40 L CBC W/AUTO [id number] 18:21:00 Test Item Value Reference Range Interpretation Comments WHITE BLOOD CELL (test code = 10.8 x10 3/uL 4.5-11.0 N WBC) RED BLOOD CELL (test code = 3.19 x10 6/uL 3.54-5.02 L RBC) HEMOGLOBIN (test code = HGB) 9.4 g/dL 11.0-15.0 L HEMATOCRIT (test code = HCT) 28.5 % 33.0-45.0 L MEAN CELL VOLUME (test code = 89.3 fL 81.0-99.0 N MCV) MEAN CELL HGB (test code = MCH) 29.5 pg 27.0-33.0 N MEAN CELL HGB CONCETRATION 33.0 g/dL 33.0-37.0 N (test code = MCHC) RED CELL DISTRIBUTION WIDTH CV 16.1 % 11.5-14.5 H (test code = RDW) RED CELL DISTRIBUTION WIDTH SD 53.1 fL 37.0-54.0 N (test code = RDW-SD) PLATELET COUNT (test code = 315 x10 3/uL 150-400 N PLT) MEAN PLATELET VOLUME (test code 9.7 fL 7.0-9.0 H = MPV) NEUTROPHIL % (test code = NT%) 83.8 % 56.0-77.0 H IMMATURE GRANULOCYTE % (test 1.2 % 0.0-2.0 N code = IG%) LYMPHOCYTE % (test code = LY%) 12.3 % 14.0-32.0 L MONOCYTE % (test code = MO%) 2.4 % 4.8-9.0 L EOSINOPHIL % (test code = EO%) 0.1 % 0.3-3.7 L BASOPHIL % (test code = BA%) 0.2 % 0.0-2.0 N NUCLEATED RBC % (test code = 0.0 % 0-0 N NRBC%) NEUTROPHIL # (test code = NT#) 9.01 x10 3/uL 2.0-7.6 H IMMATURE GRANULOCYTE # (test 0.13 x10 3/uL 0.00-0.03 H code = IG#) LYMPHOCYTE # (test code = LY#) 1.32 x10 3/uL 1.0-3.8 N MONOCYTE # (test code = MO#) 0.26 x10 3/uL 0.1-0.8 N EOSINOPHIL # (test code = EO#) 0.01 x10 3/uL 0.0-0.2 N BASOPHIL # (test code = BA#) 0.02 x10 3/uL 0.0-0.2 N NUCLEATED RBC # (test code = 0.00 x10 3/uL 0.0-0.1 N NRBC#) MANUAL DIFF REQUIRED (test code NO = MDIFF) GLUCOSE [id number] 16:11:00 Test Item Value Reference Range Interpretation Comments GLUCOSE BEDSIDE (test 363 MG/DL 70-110 H Perfor med by certified code = GLUBED) 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 [facility] [id number] 15:33:00 Test Item Value Reference Range Interpretation Comments ACT-ISTAT (test code 255 SEC 74-137 H Perform ed by certified = ACTI) 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 [facility] GLUCOSE [id number] 14:11:00 Test Item Value Reference Range Interpretation Comments GLUCOSE BEDSIDE (test 433 MG/DL 70-110 H Perfor med by certified code = GLUBED) 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 [facility] GLUCOSE [id number] 14:09:00 Test Item Value Reference Range Interpretation Comments GLUCOSE BEDSIDE (test 464 MG/DL 70-110 H Perfor med by certified code = GLUBED) 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 [facility] [employer]/[id number] 00:00:00 [facility] [place]A [place]: MAR[place] YEN : 1960 Sex: F Name: MARINA YEN [facility] [place] : 1960 Age/S: 61 / F [address] [place] [address] Unit #: [id number] Loc: [place] [address] Phys: Kevin Meek MD Acct: [id number] Dis Date: Status: ADM IN PHONE #: [phone] Exam Date: 07/21/20211939 FAX #: [phone] Reason: HEMATOMA EXAMS: CPT CODE: [id number] [employer]/Search123 [id number] PROCEDURE INFORMATION: Exam: US Duplex Left Lower Extremity Arteries Or Arterial Bypass Grafts Exam date and time: 07/21/2021 7:17 PM Age: 61 years old Clinical indication: Other: Lt groin bruising and swelling S/P heart cath; Additional info: Hematoma TECHNIQUE: Imaging protocol: Left Real-time duplex scan of the arteries or arterial bypass grafts of the left lower extremity with 2-D crow scale, color Doppler flow and spectral waveform analysis. Images documented and saved. COMPARISON: No relevant prior studies available. FINDINGS: Mildly heterogeneous hypoechoic elongated avascular collection with posterior acoustic enhancement measures 9 x 2.4 x 4.5 cm in the left groin. Septations present within. The left external iliac artery, common femoral artery, and femoral arteries demonstrate triphasic and biphasic waveforms. IMPRESSION: 9 cm soft tissue hematoma in the left groin. at 2020 Reported and signed by: Mukesh Call M.D. CC: Kevin Meek MD; Dany Mcdonald MD Technologist:Saniya Barrett RDMS(AB)(OB) Trnscb Date/Time: 07/21/2021 (2020) Demetrio.[email or web address] Orig Print D/T: S: 07/21/2021(2020) Probe: PAGE 1 Signed Report BASIC METABOLIC [id number] 15:47:00 Test Item Value Reference Range Interpretation Comments SODIUM (test code = NA) 131 mEq/L 134-147 L POTASSIUM (test code = 4.7 mEq/L 3.4-5.0 N K) CHLORIDE (test code = 95 mEq/L 100-108 L CL) CARBON DIOXIDE (test 26 mEq/l 21-33 N code = CO2) ANION GAP (test code = 15 0-20 N GAP) GLUCOSE (test code = 657 mg/dL 70-110 HH Critica l result GLU) called to Renee TAFOYA.ATD at 15 47 07/19/21Nurse dominik morrissey back resut and tech confirmed it's correct? YES BLOOD UREA NITROGEN 28 mg/dL 7-18 H (test code = BUN) GLOMERULAR FILTRATION 30.8 90-95 L Units of measure = RATE (test code = GFR) ml/mi n/1.73 m2 CREATININE (test code = 1.7 mg/dL 0.6-1.3 H CREAT) CALCIUM (test code = 9.6 mg/dL 8.0-10.5 N CA) CBC W/AUTO [id number] 15:41:00 Test Item Value Reference Range Interpretation Comments WHITE BLOOD CELL (test code = 9.7 x10 3/uL 4.5-11.0 N WBC) RED BLOOD CELL (test code = 4.00 x10 6/uL 3.54-5.02 N RBC) HEMOGLOBIN (test code = HGB) 11.6 g/dL 11.0-15.0 N HEMATOCRIT (test code = HCT) 36.6 % 33.0-45.0 N MEAN CELL VOLUME (test code = 91.5 fL 81.0-99.0 N MCV) MEAN CELL HGB (test code = MCH) 29.0 pg 27.0-33.0 N MEAN CELL HGB CONCETRATION 31.7 g/dL 33.0-37.0 L (test code = MCHC) RED CELL DISTRIBUTION WIDTH CV 16.4 % 11.5-14.5 H (test code = RDW) RED CELL DISTRIBUTION WIDTH SD 55.6 fL 37.0-54.0 H (test code = RDW-SD) PLATELET COUNT (test code = 368 x10 3/uL 150-400 N PLT) MEAN PLATELET VOLUME (test code 9.9 fL 7.0-9.0 H = MPV) NEUTROPHIL % (test code = NT%) 85.4 % 56.0-77.0 H IMMATURE GRANULOCYTE % (test 0.6 % 0.0-2.0 N code = IG%) LYMPHOCYTE % (test code = LY%) 9.1 % 14.0-32.0 L MONOCYTE % (test code = MO%) 4.6 % 4.8-9.0 L EOSINOPHIL % (test code = EO%) 0.0 % 0.3-3.7 L BASOPHIL % (test code = BA%) 0.3 % 0.0-2.0 N NUCLEATED RBC % (test code = 0.0 % 0-0 N NRBC%) NEUTROPHIL # (test code = NT#) 8.25 x10 3/uL 2.0-7.6 H IMMATURE GRANULOCYTE # (test 0.06 x10 3/uL 0.00-0.03 H code = IG#) LYMPHOCYTE # (test code = LY#) 0.88 x10 3/uL 1.0-3.8 L MONOCYTE # (test code = MO#) 0.44 x10 3/uL 0.1-0.8 N EOSINOPHIL # (test code = EO#) 0.00 x10 3/uL 0.0-0.2 N BASOPHIL # (test code = BA#) 0.03 x10 3/uL 0.0-0.2 N NUCLEATED RBC # (test code = 0.00 x10 3/uL 0.0-0.1 N NRBC#) MANUAL DIFF REQUIRED (test code NO = MDIFF) PROTHROMBIN [id number] 15:39:00 Test Item Value Reference Range Interpretation Comments PROTHROMBIN TIME 11.0 SECONDS 9.3-12.9 N PATIENT (test code = PTP) INTERNATIONAL NORMAL 1.0 0.8-1.2 N TARGET INR BY RATIO (test code = INDICATIO N Indication INR) INR1. Prophylax is of venous thrombos is 2.0 - 3.0 (orthoped ic surgery), Proph ylaxis of venous throm bosis (other than hig h-risk surgery), Treat ment of Deep Vein Thrombosis/Pulm onary Embolism, Preve ntion of systemic emb olism - Tissue heart va lves, Acute Myocardia l Infarction (to prevent systemic emboli sm), Valvular heart disease, Atrial Fibrillation, Bileaflet mecha nical valve in aortic position.2. Mec hanical prosthetic valv es (high risk), 2. 5 - 3.5 Presence of Lup us Anticoagulant o r Antiphospholipi d Antibodies, Pre vention of systemic emb olism - Acute Myocardia l Infarction (to prevent recurrent infar ct). - XR CHEST 2 [id number] 00:00:00 [facility] : 1960 Sex: F FAX: Dayn Dean MD [phone] [place]: [address]: PRE Name: YOVANAMARINA RUBIN [facility] : 1960 Age/S: 61/F [address] [place] [address] Unit #: [id number] Loc: [place] [address] Phys: Dany Mcdonald MD Acct: [id number] Dis Date: Status: PRE SDC PHONE #: [phone] Exam Date: 07/19/2021 1524 FAX #: Reason: PREOP EXAMS: CPT CODE: [id number] XR CHEST 2 V [id number] PROCEDURE INFORMATION: Exam:XR Chest Exam date and time: 07/19/2021 2:39 PM Age: 61 years old Clinical indication: Screening exam;Other screening; Additional info: Preop TECHNIQUE: Imaging protocol: XR of the chest. Views: 2 views. PA and Lateral COMPARISON: CR XR CHEST 1V 06/26/2021 6:09 AM FINDINGS: Lungs: The lungs are clear. Pleural spaces: No pleural effusion. No pneumothorax. Heart/Mediastinum: Cardiomediastinal silhouetteis normal as is the pulmonary vasculature. Coronary arterial stent. The tracheal air shadow is midline. Bones/joints: Paraspinous ossifications thoracic spine. No acute skeletal abnormality. IMPRESSION: No acute findings. at 1636 Reported and signed by: Geovanni Lacey M.D. CC: Dany Mcdonald MD Technologist: RT Acacia(R) Trnscrd Date/Time/By: 07/19/2021 (1635) : By: JazmynKWL Orig Print D/T: S: 07/19/2021 (9769) PAGE1 Signed ReportHEMOGLOBIN [id number] 13:12:00 Test Item Value Reference Range Interpretation Comments HEMOGLOBIN PLASMA 9.2 mg/dL 0.0-4.9 A Values obt ained between (test code = HGBP) 5-15 mg/d L should be interpretedwith caution since such vari clara as sub-optimalveni puncture may increase re sults to this range.Perf ormed At: [facility] [address] [id number] ra Jeff RYAN Ph:[phone] ARTERIAL BLOOD [id number] 15:17:00 Test Item Value Reference Range Interpretation Comments ARTERIAL BLOOD GAS PH TEST NOT PERFORMED 7.35-7.45 (test code = PHA) ARTERIAL BLOOD GAS PCO2 TEST NOT PERFORMED 35-45 (test code = PCO2A) mmHg ARTERIAL BLOOD GAS PO2 TEST NOT PERFORMED 80-100 (test code = PO2A) mmHg BICARBONATE TOTAL HCO3 TEST NOT PERFORMED 22.0-26.0 (test code = HCO3) mmol/L GLUCOSE [id number] 11:03:00 Test Item Value Reference Range Interpretation Comments GLUCOSE BEDSIDE (test 193 MG/DL 70-110 H Perfor med by certified code = GLUBED) 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 [facility] GLUCOSE [id number] 07:27:00 Test Item Value Reference Range Interpretation Comments GLUCOSE BEDSIDE (test 115 MG/DL 70-110 H Perfor med by certified code = GLUBED) 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 [facility] BASIC METABOLIC [id number] 04:17:00 Test Item Value Reference Range Interpretation [...] 8.4 mg/dL 8.0-10.5 N CA) CBC W/AUTO [id number] 03:33:00 Test Item Value Reference Range Interpretation [...] = MDIFF) COMMENTS: Daily while on HeparinGLUCOSE [id number] 20:07:00 Test Item Value Reference Range Interpretation Comments GLUCOSE BEDSIDE (test 186 MG/DL 70-110 H Perfor med by certified code = GLUBED) 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 [facility] GLUCOSE [id number] 17:05:00 Test Item Value Reference Range Interpretation Comments GLUCOSE BEDSIDE (test 161 MG/DL 70-110 H Perfor med by certified code = GLUBED) 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 [facility] GLUCOSE [id number] 11:53:00 Test Item Value Reference Range Interpretation Comments GLUCOSE BEDSIDE (test 173 MG/DL 70-110 H Perfor med by certified code = GLUBED) 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 [facility] GLUCOSE [id number] 08:14:00 Test Item Value Reference Range Interpretation Comments GLUCOSE BEDSIDE (test 117 MG/DL 70-110 H Perfor med by certified code = GLUBED) 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 [facility] BASIC METABOLIC [id number] 07:39:00 Test Item Value Reference Range Interpretation [...] code = 8.9 mg/dL 8.0-10.5 N CA) [id number] 07:39:00 Test Item Value Reference Range Interpretation Comments MAGNESIUM (test code = MAG) 1.79 mg/dL 1.80-2.40 L CBC W/AUTO [id number] 07:26:00 Test Item Value Reference Range Interpretation [...] = MDIFF) COMMENTS: Daily while on HeparinGLUCOSE [id number] 20:52:00 Test Item Value Reference Range Interpretation Comments GLUCOSE BEDSIDE (test 152 MG/DL 70-110 H Perfor med by certified code = GLUBED) 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 [facility] GLUCOSE [id number] 16:59:00 Test Item Value Reference Range Interpretation Comments GLUCOSE BEDSIDE (test 180 MG/DL 70-110 H Perfor med by certified code = GLUBED) 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 [facility] HEMOGLOBIN [id number] 13:10:00 Test Item Value Reference Range Interpretation Comments HEMOGLOBIN PLASMA 4.0 mg/dL 0.0-4.9 Values obt ained between (test code = HGBP) 5-15 mg/d L should be interpretedwith caution since such vari clara as sub-optimalveni puncture may increase re sults to this range.Perf ormed At: [facility] [id number] ra Jeff RYAN Ph:[phone] HEMOGLOBIN [id number] 13:10:00 Test Item Value Reference Range Interpretation Comments HEMOGLOBIN PLASMA 21.8 mg/dL 0.0-4.9 A Results verified by (test code = HGBP) repeat te stingValues obtained betwee n 5-15 mg/dL should be interpretedwith caution since such vari clara as sub-optimalveni puncture may increase re sults to this range.Perf ormed At: [facility] [id number] ra Jeff RYAN Ph:[phone] COMMENTS: Hemoglobin plasma nowGLUCOSE [id number] 11:52:00 Test Item Value Reference Range Interpretation Comments GLUCOSE BEDSIDE (test 157 MG/DL 70-110 H Perfor med by certified code = GLUBED) 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 [facility] GLUCOSE [id number] 08:01:00 Test Item Value Reference Range Interpretation Comments GLUCOSE BEDSIDE (test 168 MG/DL 70-110 H Perfor med by certified code = GLUBED) 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 [facility] BASIC METABOLIC [id number] 05:44:00 Test Item Value Reference Range Interpretation [...] code = 8.6 mg/dL 8.0-10.5 N CA) [id number] 05:44:00 Test Item Value Reference Range Interpretation Comments MAGNESIUM (test code = MAG) 1.81 mg/dL 1.80-2.40 N CBC W/AUTO [id number] 05:33:00 Test Item Value Reference Range Interpretation [...] plasma every am while on [employer] support.GLUCOSE BEDSIDE 2021-06-27 19:35:00 Test Item Value Reference Range Interpretation Comments GLUCOSE BEDSIDE (test 134 MG/DL 70-110 H Perfor med by certified code = GLUBED) 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 [facility] GLUCOSE [id number] 16:12:00 Test Item Value Reference Range Interpretation Comments GLUCOSE BEDSIDE (test 171 MG/DL 70-110 H Perfor med by certified code = GLUBED) 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 [facility] HGB [id number] 15:52:00 Test Item Value Reference Range Interpretation Comments HEMOGLOBIN (test code = HGB) 7.9 g/dL 11.0-15.0 L HEMATOCRIT (test code = HCT) 24.3 % 33.0-45.0 L POC ARTERIAL BLOOD [id number] 14:58:00 Test Item Value Reference Range Interpretation Comments POC ARTERIAL BLOOD GAS PH (test 7.524 7.35-7.45 HH code = POCPHA) POC ARTERIAL BLOOD GAS PCO2 34.0 mmHg 35.0-45 L (test code = [id number]) POC TCO2 ARTERIAL (test code = 29.1 POCTCO2) POC ARTERIAL BLOOD GAS PO2 (test 78.6 mmHg 80-100.0 L code = [id number]) POC HCO3 ARTERIAL (test code = 28.1 MMOL/L 22.0-26.0 HH [id number]) POC BASE EXCESS (test code = 5.3 MMOL/L -4.0-4.0 H POCBEA) POC O2 SATURATION (test code = 96.9 % 90-100 N POCO2S) FIO2 (test code = FIO2A) 21 % PaO2/FiO2 (test code = [id number]) 374.28 mm/Hg ABG SITE (test code = SITEA) L Radial NEREYDA'S TEST (test code = Positive ALLENS) BASIC METABOLIC [id number] 14:58:00 Test Item Value Reference Range Interpretation [...] (test code = POCGLU) 209 MG/DL HEMOGLOBIN [id number] 14:58:00 Test Item Value Reference Range Interpretation Comments HEMOGLOBIN ABG (test code = HGB/ABG) 6.4 G/DL 11.0-15.0 L [id number] 14:58:00 Test Item Value Reference Range Interpretation Comments HEMATOCRIT (test code = HCT/ABG) 19 % 33.0-45.0 L POC LACTIC [id number] 14:58:00 Test Item Value Reference Range Interpretation Comments POC LACTIC ACID (test code = 0.9 mmol/l 0.9-1.7 N POCLAC) GLUCOSE [id number] 11:20:00 Test Item Value Reference Range Interpretation Comments GLUCOSE BEDSIDE (test 182 MG/DL 70-110 H Perfor med by certified code = GLUBED) 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 [facility] GLUCOSE [id number] 07:22:00 Test Item Value Reference Range Interpretation Comments GLUCOSE BEDSIDE (test 97 MG/DL 70-110 N Perfor med by certified code = GLUBED) 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 [facility] COMPREHENSIVE METABOLIC [id number] 05:51:00 Test Item Value Reference Range Interpretation [...] 20-125 N TOTAL (test code = ALKP) [id number] 05:51:00 Test Item Value Reference Range Interpretation Comments MAGNESIUM (test code = MAG) 1.72 mg/dL 1.80-2.40 L CBC W/AUTO [id number] 05:42:00 Test Item Value Reference Range Interpretation [...] on Impella support.COMMENTS: Daily while on HeparinGLUCOSE [id number] 20:19:00 Test Item Value Reference Range Interpretation Comments GLUCOSE BEDSIDE (test 173 MG/DL 70-110 H Perfor med by certified code = GLUBED) 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 [facility] GLUCOSE [id number] 18:00:00 Test Item Value Reference Range Interpretation Comments GLUCOSE BEDSIDE (test 216 MG/DL 70-110 H Perfor med by certified code = GLUBED) 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 [facility] GLUCOSE [id number] 12:46:00 Test Item Value Reference Range Interpretation Comments GLUCOSE BEDSIDE (test 139 MG/DL 70-110 H Perfor med by certified code = GLUBED) 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 [facility] GLUCOSE [id number] 08:22:00 Test Item Value Reference Range Interpretation Comments GLUCOSE BEDSIDE (test 126 MG/DL 70-110 H Perfor med by certified code = GLUBED) 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 [facility] BASIC METABOLIC [id number] 05:13:00 Test Item Value Reference Range Interpretation [...] code = 7.7 mg/dL 8.0-10.5 L CA) [id number] 05:13:00 Test Item Value Reference Range Interpretation Comments MAGNESIUM (test code = MAG) 1.68 mg/dL 1.80-2.40 L B-TYPE NATRIURETIC [id number] 05:12:00 Test Item Value Reference Range Interpretation Comments B-TYPE NATRIURETIC PEPTIDE (test 223.0 PG/ML 0-100 H code = BNP) CBC W/AUTO [id number] 05:08:00 Test Item Value Reference Range Interpretation [...] Daily while on Heparin- DUP UE ART [id number] 00:00:00 [facility] 1960 Sex: F Name: MARINA YEN [facility] [place] : 1960 Age/S: 61 / F [address] [place] [address] Blvd Unit #: [id number] Loc: [place] [address] Phys: Loly Agee [employer]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 Patent right co mmon femoral/superficial femoral arteries with normal waveforms. No pseudoaneurysm. Patent right common femoral vein and visualized proximal femoral vein. IMPRESSION: 1. Mild soft tissue edema in the right groin without soft tissue hematoma. 2. Patent right groin arterial and venous circulation without pseudoaneurysm or fistula. at 1013 Reported and signed by: Yonatan Webb M.D. CC: Alejandra Zeng MD; Loly Agee AUTO BODY SERVICE MECHANIC; Dany Mcdonald MD Technologist: Monalisa Carter RDMS(Reggie)(BR) Trnscb Date/Time: 06/26/2021(1013) Demetrio.ERR2 Orig Print D/T: S: 06/26/2021 (1013) Probe: PAGE 1 Signed Report- XR CHEST 1 [id number] 00:00:00 [facility] 1960 Sex: F FAX: Alejandra Fraga MD [phone] [place]: St: ADM FAX: Zoraida Felder [phone] FAX: Dany Dean MD [phone] Name: MARINA YEN [facility] : 1960 Age/S: 61/F [address] [place] [address] Unit #: [id number] Loc: G.3[address] [place] [address] Phys: Zoraida Felder Acct: [id number] Dis Date: Status: ADM IN PHONE #: [phone] Exam Date: 06/26/2021610 FAX #: [phone] Reason: fluid overload EXAMS: CPT CODE: [id number] XR CHEST 1 V 45583 PROCEDURE INFORMATION: Exam: XR Chest Exam date [...] Weiner M.D. CC: Alejandra Zeng MD; Zoraida Mcdonald MD Technologist: Rona Banuelos, RT(R); Nancy Melton RT(R) [facility] Date/Time/By: 06/26/2021 (0751) : By: [email or web address] Orig Print D/T: S: 06/26/2021 (0751) PAGE 1 Signed ReportGLUCOSE [id number] 20:45:00 Test Item Value Reference Range Interpretation Comments GLUCOSE BEDSIDE (test 109 MG/DL 70-110 N Perfor med by certified code = GLUBED) 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 [facility] GLUCOSE [id number] 17:17:00 Test Item Value Reference Range Interpretation Comments GLUCOSE BEDSIDE (test 188 MG/DL 70-110 H Perfor med by certified code = GLUBED) 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 [facility] HGB [id number] 17:07:00 Test Item Value Reference Range Interpretation Comments HEMOGLOBIN (test code = HGB) 7.3 g/dL 11.0-15.0 L HEMATOCRIT (test code = HCT) 22.9 % 33.0-45.0 L GLUCOSE [id number] 12:04:00 Test Item Value Reference Range Interpretation Comments GLUCOSE BEDSIDE (test 265 MG/DL 70-110 H Perfor med by certified code = GLUBED) 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 [facility] GLUCOSE [id number] 07:41:00 Test Item Value Reference Range Interpretation Comments GLUCOSE BEDSIDE (test 288 MG/DL 70-110 H Perfor med by certified code = GLUBED) 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 [facility] [id number] 04:51:00 Test Item Value Reference Range Interpretation Comments MAGNESIUM (test code = MAG) 2.48 mg/dL 1.80-2.40 H CALCIUM [id number] 04:51:00 Test Item Value Reference Range Interpretation Comments CALCIUM IONIZED (test code = RYLEE) 1.01 MMOL/L 1.12-1.32 L CBC W/AUTO [id number] 04:33:00 Test Item Value Reference Range Interpretation [...] while on Impella support.COMMENTS: To be done morning of Heart CathBASIC METABOLIC [id number] 04:10:00 Test Item Value Reference Range Interpretation [...] done morning of Heart CathLACTIC ACID 2ND [id number] 04:09:00 Test Item Value Reference Range Interpretation Comments LACTIC ACID 2ND REPEAT (test code 2.0 mmol/L 0.4-1.9 H = LACT2) ABOUT TO DRAW REPEATBASIC METABOLIC [id number] 01:02:00 Test Item Value Reference Range Interpretation [...] 6.7 mg/dL 8.0-10.5 L CA) LACTIC ACID [id number] 00:57:00 Test Item Value Reference Range Interpretation Comments LACTIC ACID REPEAT (test code = 3.0 mmol/l 0.4-1.9 H LACTR) COMPREHENSIVE METABOLIC [id number] 21:11:00 Test Item Value Reference Range Interpretation Comments SODIUM (test code = 140 mEq/L 134-147 N NA) POTASSIUM (test code = 5.5 mEq/L 3.4-5.0 H SPEC IMEN 1+ K) HEMOLYZED.Resul ts known to be adv ersely affected by hem olysis are: Potassium Magnesium LDH Phosphorus CHLORIDE (test code = [...] 20-125 N TOTAL (test code = ALKP) [id number] 21:11:00 Test Item Value Reference Range Interpretation Comments PHOSPHOROUS (test code = PHOS) 3.5 MG/DL 2.5-4.9 N [id number] 21:11:00 Test Item Value Reference Range Interpretation Comments MAGNESIUM (test code = MAG) 1.99 mg/dL 1.80-2.40 N CALCIUM [id number] 21:11:00 Test Item Value Reference Range Interpretation Comments CALCIUM IONIZED (test code = RYLEE) 0.89 MMOL/L 1.12-1.32 L LACTIC [id number] 21:05:00 Test Item Value Reference Range Interpretation Comments LACTIC ACID (test code = LACT) 2.2 mmol/L 0.4-1.9 H CBC W/AUTO [id number] 21:02:00 Test Item Value Reference Range Interpretation [...] REQUIRED (test NO code = MDIFF) GLUCOSE [id number] 20:14:00 Test Item Value Reference Range Interpretation Comments GLUCOSE BEDSIDE (test 301 MG/DL 70-110 H [facility] med by certified code = GLUBED) 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 [facility] POC ARTERIAL BLOOD [id number] 16:54:00 Test Item Value Reference Range Interpretation Comments POC ARTERIAL BLOOD GAS PH (test 7.268 7.35-7.45 LL code = POCPHA) POC ARTERIAL BLOOD GAS PCO2 46.0 mmHg 35.0-45 H (test code = NUXWWS5H) POC TCO2 ARTERIAL (test code = 22.4 POCTCO2) POC ARTERIAL BLOOD GAS PO2 (test 247.9 mmHg 80-100.0 HH code = RBTLR2Z) POC HCO3 ARTERIAL (test code = 21.0 MMOL/L 22.0-26.0 L FSPRBT5L) POC BASE EXCESS (test code = -5.9 MMOL/L -4.0-4.0 L POCBEA) POC O2 SATURATION (test code = 99.8 % 90-100 N POCO2S) ABG SITE (test code = SITEA) [place] BASIC METABOLIC [id number] 16:54:00 Test Item Value Reference Range Interpretation [...] (test code = POCGLU) 295 MG/DL HEMOGLOBIN [id number] 16:54:00 Test Item Value Reference Range Interpretation Comments HEMOGLOBIN ABG (test code = HGB/ABG) 7.0 G/DL 11.0-15.0 L [id number] 16:54:00 Test Item Value Reference Range Interpretation Comments HEMATOCRIT (test code = HCT/ABG) 21 % 33.0-45.0 L POC LACTIC [id number] 16:54:00 Test Item Value Reference Range Interpretation Comments POC LACTIC ACID (test code = 6.5 mmol/l 0.9-1.7 HH POCLAC) [id number] 16:49:00 Test Item Value Reference Range Interpretation Comments ACT-ISTAT (test code 136 SEC 74-137 N Perform ed by certified = ACTI) 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 [facility] THROMBOPLASTIN TIME [id number] 13:10:00 Test Item Value Reference Range Interpretation Comments THROMBOPLASTIN TIME 96.3 Seconds 25.0-39.5 H Therape utic Range: PARTIAL (test code = 50.4 - 88.3 Seconds PTT) Effective 06/26/2018 CBC W/O [id number] 13:01:00 Test Item Value Reference Range Interpretation [...] 9.5 fL 7.0-9.0 H = MPV) GLUCOSE [id number] 11:31:00 Test Item Value Reference Range Interpretation Comments GLUCOSE BEDSIDE (test 165 MG/DL 70-110 H Perfor med by certified code = GLUBED) 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 [facility] THROMBOPLASTIN TIME [id number] 10:57:00 Test Item Value Reference Range Interpretation Comments THROMBOPLASTIN TIME 93.7 Seconds 25.0-39.5 H Therape utic Range: PARTIAL (test code = 50.4 - 88.3 Seconds PTT) Effective 06/26/2018 CBC W/AUTO [id number] 10:48:00 Test Item Value Reference Range Interpretation [...] REQUIRED (test NO code = MDIFF) GLUCOSE [id number] 08:41:00 Test Item Value Reference Range Interpretation Comments GLUCOSE BEDSIDE (test 201 MG/DL 70-110 H Perfor med by certified code = GLUBED) 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 [facility] THROMBOPLASTIN TIME [id number] 08:31:00 Test Item Value Reference Range Interpretation Comments THROMBOPLASTIN TIME 115.0 Seconds 25.0-39.5 H Therap eutic PARTIAL (test code = Range: 50.4 - 88.3 PTT) Seconds Effective 06/26/2018 THROMBOPLASTIN TIME [id number] 05:47:00 Test Item Value Reference Range Interpretation Comments THROMBOPLASTIN TIME 129.9 Seconds 25.0-39.5 H Therap eutic PARTIAL (test code = Range: 50.4 - 88.3 PTT) Seconds Effective 06/26/2018 BASIC METABOLIC [id number] 05:47:00 Test Item Value Reference Range Interpretation [...] code = 8.2 mg/dL 8.0-10.5 N CA) [id number] 05:47:00 Test Item Value Reference Range Interpretation Comments MAGNESIUM (test code = MAG) 1.79 mg/dL 1.80-2.40 L CBC W/AUTO [id number] 05:25:00 Test Item Value Reference Range Interpretation [...] Impella support.COMMENTS: Daily while on HeparinTHROMBOPLASTIN TIME [id number] 02:34:00 Test Item Value Reference Range Interpretation Comments THROMBOPLASTIN TIME 45.4 Seconds 25.0-39.5 H Therape utic Range: PARTIAL (test code = 50.4 - 88.3 Seconds PTT) Effective 06/26/2018 THROMBOPLASTIN TIME [id number] 22:54:00 Test Item Value Reference Range Interpretation Comments THROMBOPLASTIN TIME 33.3 Seconds 25.0-39.5 Therape utic Range: PARTIAL (test code = 50.4 - 88.3 Seconds PTT) Effective 06/26/2018 THROMBOPLASTIN TIME [id number] 21:14:00 Test Item Value Reference Range Interpretation Comments THROMBOPLASTIN TIME 65.5 Seconds 25.0-39.5 H Therape utic Range: PARTIAL (test code = 50.4 - 88.3 Seconds PTT) Effective 06/26/2018 GLUCOSE [id number] 20:25:00 Test Item Value Reference Range Interpretation Comments GLUCOSE BEDSIDE (test 316 MG/DL 70-110 H Perfor med by certified code = GLUBED) 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 [facility] THROMBOPLASTIN TIME [id number] 20:19:00 Test Item Value Reference Range Interpretation Comments THROMBOPLASTIN TIME 104.0 Seconds 25.0-39.5 H Therap eutic PARTIAL (test code = Range: 50.4 - 88.3 PTT) Seconds Effective 06/26/2018 CBC W/AUTO [id number] 20:07:00 Test Item Value Reference Range Interpretation [...] DONE WITHIN THE LAST 24 HOURSTHROMBOPLASTIN TIME [id number] 19:07:00 Test Item Value Reference Range Interpretation Comments THROMBOPLASTIN TIME > 200.0 25.0-39.5 H Therape utic PARTIAL (test code = Seconds Range: 50.4 - 88.3 PTT) Seconds Effective 06/26/2018 COMMENTS: Start 2hrs post procedure check q1hr until 2 results in range, then q4 GLUCOSE [id number] 17:11:00 Test Item Value Reference Range Interpretation Comments GLUCOSE BEDSIDE (test 365 MG/DL 70-110 H Perfor med by certified code = GLUBED) 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 [facility] THROMBOPLASTIN TIME [id number] 17:04:00 Test Item Value Reference Range Interpretation Comments THROMBOPLASTIN TIME > 200.0 25.0-39.5 H Therape utic PARTIAL (test code = Seconds Range: 50.4 - 88.3 PTT) Seconds Effective 06/26/2018 COMMENTS: Start 2hrs post procedure check q1hr until 2 results in range, then q4 [id number] 15:09:00 Test Item Value Reference Range Interpretation Comments ACT-ISTAT (test code 267 SEC 74-137 H Perform ed by certified = ACTI) 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 [facility] [id number] 14:22:00 Test Item Value Reference Range Interpretation Comments ACT-ISTAT (test code 255 SEC 74-137 H Perform ed by certified = ACTI) 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 [facility] [id number] 13:52:00 Test Item Value Reference Range Interpretation Comments ACT-ISTAT (test code 362 SEC 74-137 H Perform ed by certified = ACTI) 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 [facility] [id number] 13:38:00 Test Item Value Reference Range Interpretation Comments ACT-ISTAT (test code 237 SEC 74-137 H Perform ed by certified = ACTI) 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 [facility] [id number] 13:04:00 Test Item Value Reference Range Interpretation Comments ACT-ISTAT (test code 273 SEC 74-137 H Perform ed by certified = ACTI) 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 [facility] [id number] 12:41:00 Test Item Value Reference Range Interpretation Comments ACT-ISTAT (test code 315 SEC 74-137 H Perform ed by certified = ACTI) 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 [facility] GLUCOSE [id number] 11:42:00 Test Item Value Reference Range Interpretation Comments GLUCOSE BEDSIDE (test 332 MG/DL 70-110 H Perfor med by certified code = GLUBED) 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 [facility] PROTHROMBIN [id number] 13:57:00 Test Item Value Reference Range Interpretation Comments PROTHROMBIN TIME 12.0 SECONDS 9.3-12.9 N PATIENT (test code = PTP) INTERNATIONAL NORMAL 1.1 0.8-1.2 N TARGET INR BY RATIO (test code = INDICATIO N Indication INR) INR1. Prophylax is of venous thrombos is 2.0 - 3.0 (orthoped ic surgery), Proph ylaxis of venous throm bosis (other than hig h-risk surgery), Treat ment of Deep Vein Thrombosis/Pulm onary Embolism, Preve ntion of systemic emb olism - Tissue heart va lves, Acute Myocardia l Infarction (to prevent systemic emboli sm), Valvular heart disease, Atrial Fibrillation, Bileaflet mecha nical valve in aortic position.2. Mec hanical prosthetic valv es (high risk), 2. 5 - 3.5 Presence of Lup us Anticoagulant o r Antiphospholipi d Antibodies, Pre vention of systemic emb olism - Acute Myocardia l Infarction (to prevent recurrent infar ct). BASIC METABOLIC [id number] 13:47:00 Test Item Value Reference Range Interpretation [...] 8.9 mg/dL 8.0-10.5 N CA) CBC W/AUTO [id number] 13:35:00 Test Item Value Reference Range Interpretation [...] REQUIRED (test code NO = MDIFF) GLUCOSE [id number] 16:18:00 Test Item Value Reference Range Interpretation Comments GLUCOSE BEDSIDE (test 227 MG/DL 70-110 H Perfor med by certified code = GLUBED) 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 [facility] TROP-I HIGH [id number] 16:11:00 Test Item Value Reference Range Interpretation Comments TROP-I HIGH 1599 ng/L 0-34 HH CAUTION: Units of the SENSITIVITY (test current te st methodology code = TROPIHS) (ng/L) diffe rfrom the prior test meth odology (ng/mL) by a fa ctor of 1000. 99t h Percentile Uppe r Reference Limit (URL): Fe males: 34 ng/LMales: 54 n g/L In order to distin guish acute elevations of h igh sensitivitytrop onin from other clinical conditions, the FourthUnive rsal Definition of M yocardial Infarction stressesclinica l assessment and the demonstration o f a rise and/orfall in s erial troponin result s above the URL. These resu lts were obtained using [employer] IM TnI Hreagent. Results from di fferent methodologies s hould not becompared to o ne another as quantitative results and URLs mayvar y by method. LIPOPROTEIN [id number] 15:14:00 Test Item Value Reference Range Interpretation Comments LIPOPROTEIN LDL 56.8 mg/dL 0-100 N <100 OPTIMAL 100-129 NEAR (test code = LDL) OPTIMAL/AB OVE [id number] 89 HIGH>SX=823 JUSTINO Y HIGH*Guidelines provided by the National Cholesterol EducationProgra m Adult Treatment Panel III TROP-I HIGH [id number] 14:57:00 Test Item Value Reference Range Interpretation Comments TROP-I HIGH 1583 ng/L 0-34 HH Critical result called to SENSITIVITY (test CARLEE Duran code = TROPIHS) G.LAB.JN1 at 1454 05/13/21Nurse r ead back result and tech confirmed it's correct? Y ESCAUTION: Units of the cu rrent test methodology (ng /L) differfrom the prior test methodology (ng /mL) by a factor of 1000. 99t h Percentile Uppe r Reference Limit (URL): Fe males: 34 ng/LMales: 54 n g/L In order to distin guish acute elevations of h igh sensitivitytrop onin from other clinical conditions, the FourthUnive rsal Definition of M yocardial Infarction stressesclinica l assessment and the demonstration o f a rise and/orfall in s erial troponin result s above the URL. These resu lts were obtained using [employer] IM TnI Hreagent. Results from di fferent methodologies s hould not becompared to o ne another as quantitative results and URLs mayvar y by method. GLUCOSE [id number] 11:56:00 Test Item Value Reference Range Interpretation Comments GLUCOSE BEDSIDE (test 241 MG/DL 70-110 H Perfor med by certified code = GLUBED) 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 [facility] GLUCOSE [id number] 08:03:00 Test Item Value Reference Range Interpretation Comments GLUCOSE BEDSIDE (test 209 MG/DL 70-110 H Perfor med by certified code = GLUBED) 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 [facility] BASIC METABOLIC [id number] 04:59:00 Test Item Value Reference Range Interpretation [...] 9.2 mg/dL 8.0-10.5 N CA) CBC W/AUTO [id number] 04:50:00 Test Item Value Reference Range Interpretation [...] REQUIRED (test code NO = MDIFF) GLUCOSE [id number] 20:31:00 Test Item Value Reference Range Interpretation Comments GLUCOSE BEDSIDE (test 339 MG/DL 70-110 H Perfor med by certified code = GLUBED) 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 [place] [id number] 15:58:00 Test Item Value Reference Range Interpretation Comments ACT-ISTAT (test code 154 SEC 74-137 H Perform ed by certified = ACTI) 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 [place] [id number] 15:05:00 Test Item Value Reference Range Interpretation Comments ACT-ISTAT (test code 178 SEC 74-137 H Perform ed by certified = ACTI) 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 [facility] [id number] 13:53:00 Test Item Value Reference Range Interpretation Comments ACT-ISTAT (test code 207 SEC 74-137 H Perform ed by certified = ACTI) 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 [facility] GLUCOSE [id number] 12:53:00 Test Item Value Reference Range Interpretation Comments GLUCOSE BEDSIDE (test 150 MG/DL 70-110 H Perfor med by certified code = GLUBED) 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 [facility] [id number] 12:12:00 Test Item Value Reference Range Interpretation Comments ACT-ISTAT (test code 261 SEC 74-137 H Perform ed by certified = ACTI) 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 [facility] [id number] 11:36:00 Test Item Value Reference Range Interpretation Comments ACT-ISTAT (test code 261 SEC 74-137 H Perform ed by certified = ACTI) 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 [facility] [id number] 11:02:00 Test Item Value Reference Range Interpretation Comments ACT-ISTAT (test code 321 SEC 74-137 H Perform ed by certified = ACTI) 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 [facility] GLUCOSE [id number] 09:52:00 Test Item Value Reference Range Interpretation Comments GLUCOSE BEDSIDE (test 147 MG/DL 70-110 H [facility] med by certified code = GLUBED) 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 [facility] BASIC METABOLIC [id number] 14:34:00 Test Item Value Reference Range Interpretation [...] = 8.8 mg/dL 8.0-10.5 N CA) PROTHROMBIN [id number] 14:28:00 Test Item Value Reference Range Interpretation Comments PROTHROMBIN TIME 12.0 SECONDS 9.3-12.9 N PATIENT (test code = PTP) INTERNATIONAL NORMAL 1.1 0.8-1.2 N TARGET INR BY RATIO (test code = INDICATIO N Indication INR) INR1. Prophylax is of venous thrombos is 2.0 - 3.0 (orthoped ic surgery), Proph ylaxis of venous throm bosis (other than hig h-risk surgery), Treat ment of Deep Vein Thrombosis/Pulm onary Embolism, Preve ntion of systemic emb olism - Tissue heart va lves, Acute Myocardia l Infarction (to prevent systemic emboli sm), Valvular heart disease, Atrial Fibrillation, Bileaflet mecha nical valve in aortic position.2. Mec hanical prosthetic valv es (high risk), 2. 5 - 3.5 Presence of Lup us Anticoagulant o r Antiphospholipi d Antibodies, Pre vention of systemic em bolism - Acute Myocard ial Infarction (to prevent recurrent infar ct). CBC W/AUTO [id number] 14:20:00 Test Item Value Reference Range Interpretation [...] 0.0-0.1 N NRBC#) - XR CHEST 2 [id number] 00:00:00 [facility] 1960 Sex: F FAX: Dany Dean MD [phone] [place]: St: REG Name: MARINA YEN [facility] : 1960 Age/S:61/F [address] [place] [address] Unit #: [id number] Loc: [place] [address] Phys: Dany Mcdonald MDAcct: [id number] Dis Date: Status: REG SDC PHONE #: [phone] Exam Date: 05/10/2021 [facility] FAX #:[phone] Reason: PREOP EXAMS: CPT CODE: [id number] XR CHEST 2 V 75398 PROCEDURE INFORMATION: Exam : XR Chest Exam date and time: 05/10/2021 2:38 PM Age: 61 years old Clinical indication: Pre-operative exam; Respiratory screening exam; Additional info: Preop TECHNIQUE: Imaging protocol: XR of the chest. Views: 2 views. PA and Lateral COMPARISON: No relevant prior studies available. FINDINGS: Lungs: There are normal lung volumes without consolidation or interstitial oppacities. Pleural spaces: No pleural effusion. No pneumothorax. Heart/Mediastinum: The heart size is normal. Vasculature: Aortic calcifications are present. Bones/joints: Mild degenerative changes in thoracic spine. IMPRESSION: No acute cardiopulmonary process. at 2310 Reported and signed by: Felton Michelle M.D. CC: Dany Mcdonald MD Technologist: PREETI Harper) Trnscrd Date/Time/By: 05/10/2021 (2309) : By: [id number] Orig Print D/T: S: 05/10/2021 (2309) PAGE 1 Signed ReportPOCT-GLUCOSE [id number] 21:54:00 Test Item Value Reference Range Interpretation Comments POC-GLUCOSE METER 194 mg/dL 70-110 H TESTED AT [place] [address] ([facility]) (test code = JENIFER Lemons [facility] 1538) [id number] POCT-GLUCOSE [id number] 16:50:00 Test Item Value Reference Range Interpretation Comments POC-GLUCOSE METER 134 mg/dL 70-110 H TESTED AT [place] [address] ([facility]) (test code = [facility]ENIFER [facility] 1538) [id number] POCT-GLUCOSE [id number] 12:10:00 Test Item Value Reference Range Interpretation Comments POC-GLUCOSE METER 155 mg/dL 70-110 H TESTED AT [place] [address] ([facility]) (test code = [facility]ENIFER [facility] 1538) [address] POCT-GLUCOSE [id number] 05:34:00 Test Item Value Reference Range Interpretation Comments POC-GLUCOSE METER 249 mg/dL 70-110 H TESTED AT [place] [address] ([facility] [place]) (test code = [facility]ENIFER Lemons [facility] 1538) [id number] POCT-GLUCOSE [id number] 00:09:00 Test Item Value Reference Range Interpretation Comments POC-GLUCOSE METER 236 mg/dL 70-110 H TESTED AT [place] [address] ([facility] [place]) (test code = JENIFER MARRERO [place] 1538) [id number] POCT-GLUCOSE [id number] 21:17:00 Test Item Value Reference Range Interpretation Comments POC-GLUCOSE METER 153 mg/dL 70-110 H TESTED AT [place] [address] ([facility] [place]) (test code = [facility] 1538) [id number] POCT-GLUCOSE [id number] 18:23:00 Test Item Value Reference Range Interpretation Comments POC-GLUCOSE METER 148 mg/dL 70-110 H TESTED AT [place] [address] ([facility] [place]) (test code = [facility] 1538) [id number] FL, UGI, WITHOUT [id number] 17:33:00Reason for exam:->Please evaluate with thin barium swallow; lap band deflated.FINAL REPORT INDICATION:Mid chest pain with swallowing prior gastric lap band. Immediately before the procedure the gastric lap band was deflated. TECHNIQUE: Upper GI exam single contrast (thin barium).Fluoroscopy time 0.4 minutes.Fluoroscopic images 4. FINDINGS / IMPRESSION:In the supine reverse Trendelenburg position the patient was administered thin barium by mouth. Contrast passed normally down the esophagus, through the gastric lap band into the stomach. Esophageal peristalsis was normal. Signed: Shen Lord MDReport Verified Date/Time: 10/16/2018 17:33:25 Reading Location: [facility] B1 [id number] [facility] Consult Reading Room -GLUCOSE [id number] 05:59:00 Test Item Value Reference Range Interpretation Comments POC-GLUCOSE METER 192 mg/dL 70-110 H TESTED AT [place] [address] ([facility] [place]) (test code = [facility] 1538) [id number] POCT-GLUCOSE [id number] 00:39:00 Test Item Value Reference Range Interpretation Comments POC-GLUCOSE METER 172 mg/dL 70-110 H TESTED AT [facility] 6720 (BEAKER) (test code = [facility] Lemons [facility] 1538) [id number] POCT-GLUCOSE [id number] 22:13:00 Test Item Value Reference Range Interpretation Comments POC-GLUCOSE METER 187 mg/dL 70-110 H TESTED AT [facility] 6720 (BEAKER) (test code = [facility] Lem[facility] 1538) [id number] RAD, CHEST, 1 VIEW, NON [id number] 18:59:00Reason for exam:->preopShould this be performed at the bedside?->YesFINAL REPORT Chest, one view. HISTORY: preop COMPARISON: Radiograph from earlier today IMPRESSION: There is a slightly hazy, nodular opacity which measures 1.5 cm. A follow-up radiograph is recommended in three months to document resolution. The cardiac silhouette is normal in size and unchanged. No pleural effusion or pneumothorax. Pulmonary venous congestion. No acute bony abnormality. Signed: Lottie Olson MDReport Verified Date/Time: 10/15/2018 18:59:09 Reading Location: [facility] [id number] Consult Reading Room [facility] METABOLIC [id number] 18:46:00 Test Item Value Reference Range Interpretation [...] NOT APPLICABLE FOR DIALYSIS PATIEN TS. HEMOGLOBIN [id number] 18:36:00 Test Item Value Reference Range Interpretation Comments HEMOGLOBIN A1C (BEAKER) (test code = 9.7 % 4.3-6.1 H 368) POCT-GLUCOSE [id number] 18:14:00 Test Item Value Reference Range Interpretation Comments POC-GLUCOSE METER 207 mg/dL 70-110 H TESTED AT [facility] 6720 (BEAKER) (test code = JENIFER MARRERO [place] 1538) [id number] CBC W/PLT COUNT & AUTO [id number] 18:13:00 Test Item Value Reference Range Interpretation [...] % 0-1 PERCENT (BEAKER) (test code = 280)
[2021-10-15 15:38] LABS: Absolute Lymphocytes (CBC) 1.4 K/uL (0.7-4.9); Hematocrit 37.5 % (36.0-45.0); MCV 79.9 fL (80-100); MPV 7.8 fL (7.6-11.3)
[2021-10-15] MEDS ORDERED: MORPHINE 4 MG/ML SYR ONE ×2 (15:43→18:40)
[2021-10-15] MEDS ORDERED: ONDANSETRON 4 MG/2 ML VIAL ONE ×2 (15:43→18:40)
[2021-10-15 15:51] LABS: Potassium 4.1 mmol/L (3.5-5.1); Troponin High Sensitivity 17.1 pg/mL (<58.9)
--- NOTE | 2021-10-15 16:14 | RAD REPORT ---
EXAM DESCRIPTION: Ivis Single View10/15/2021 3:46 pm CLINICAL HISTORY: Chest pain COMPARISON: July 2021 FINDINGS: The lungs appear clear of acute infiltrate. The heart is normal size IMPRESSION: No acute abnormalities displayed
--- NOTE | 2021-10-15 18:29 | EDPHYS ---
Physician Documentation [facility] Name: Tamy Martinez Age: 61 yrs Sex: Female : 1960 Arrival Date: 10/15/2021 Time: 14:51 Bed 20 Private MD: ED Physician Telly Parada HPI: 10/15 18:31 This 61 yrs old Female presents to ER via Ambulatory with complaints of Chest Pain. kdr 18:31 Patient states that she had right-sided chest pain that radiates to her right arm kdr starting earlier this morning. She states that she has had 7 stents that were placed by Dr. Mcdonald. Her last stent was placed 3 months ago. Today she also complains of elevated blood sugar as well as a headache. No she appears stable and nontoxic in the ED however she does complain of significant 7-10 out of 10 pain. Onset: The symptoms/episode began/occurred this morning. Severity of symptoms: At their worst the symptoms were moderate severe just prior to arrival, in the emergency department the symptoms are unchanged. The patient has experienced similar episodes in the past, multiple times. The patient has not recently seen a physician. Historical: - Allergies: 14:53 Iodinated Contrast Media - IV Dye; iw - Home Meds: 14:53 aspirin 81 mg Oral TbEC once daily [Active]; isosorbide dinitrate 10 mg Oral tab iw [Active]; losartan 25 mg Oral tab once daily [Active]; Lantus 100 unit/mL Sub-Q soln 26 unit nightly [Active]; methotrexate sodium 2.5 mg Oral tab [Active]; Novolog Sub-Q sliding scale [Active]; Plavix 75 mg Oral tab once daily [Active]; Tresiba U-100 Insulin 100 unit/mL subcutaneous soln [Active]; Xeljanz 11 mg Oral daily [Active]; - PMHx: 14:53 Diabetes - IDDM; Hypertension resolved after lap band; Myocardial infarction; iw Hypertension; Rheumatoid Arthritis; - Immunization history:: Client reports having NOT received the Covid vaccine. - Social history:: Smoking status: Patient denies any tobacco usage or history of. ROS: 18:31 Constitutional: Negative for fever, chills, and weight loss, Eyes: Negative for injury, kdr pain, redness, and discharge, ENT: Negative for injury, pain, and discharge, Neck: Negative for injury, pain, and swelling, Respiratory: Negative for shortness of breath, cough, wheezing, and pleuritic chest pain, Abdomen/GI: Negative for abdominal pain, nausea, vomiting, diarrhea, and constipation, Back: Negative for injury and pain, : Negative for injury, bleeding, discharge, and swelling, MS/Extremity: Negative for injury and deformity, Skin: Negative for injury, rash, and discoloration, Neuro: Negative for headache, weakness, numbness, tingling, and seizure activity. Psych: Negative for depression, anxiety, suicide ideation, homicidal ideation, and hallucinations, Allergy/Immunology: Negative for hives, rash, and allergies, Endocrine: Negative for neck swelling, polydipsia, polyuria, polyphagia, and marked weight changes, Hematologic/Lymphatic: Negative for swollen nodes, abnormal bleeding, and unusual bruising. 18:31 Cardiovascular: Positive for chest pain, Negative for edema, orthopnea, palpitations, paroxysmal nocturnal dyspnea. Exam: 15:38 ECG was reviewed by the Attending Physician. kdr 18:32 Constitutional: This is a well developed, well nourished patient who is awake, alert, kdr and in mild distress. Head/Face: Normocephalic, atraumatic. Eyes: Pupils equal round and reactive to light, extra-ocular motions intact. Lids and lashes normal. Conjunctiva and sclera are non-icteric and not injected. Cornea within normal limits. Periorbital areas with no swelling, redness, or edema. Neck: Trachea midline, no thyromegaly or masses palpated, and no cervical lymphadenopathy. Supple, full range of motion without nuchal rigidity, or vertebral point tenderness. No Meningismus. Chest/axilla: Normal chest wall appearance and motion. Nontender with no deformity. No lesions are appreciated. Cardiovascular: Regular rate and rhythm with a normal S1 and S2. No gallops, murmurs, or rubs. Normal PMI, no JVD. No pulse deficits. Respiratory: Lungs have equal breath sounds bilaterally, clear to auscultation and percussion. No rales, rhonchi or wheezes noted. No increased work of breathing, no retractions or nasal flaring. Abdomen/GI: Soft, non-tender, with normal bowel sounds. No distension or tympany. No guarding or rebound. No evidence of tenderness throughout. Back: No spinal tenderness. No costovertebral tenderness. Full range of motion. Skin: Warm, dry with normal turgor. Normal color with no rashes, no lesions, and no evidence of cellulitis. MS/ Extremity: Pulses equal, no cyanosis. Neurovascular intact. Full, normal range of motion. Neuro: Awake and alert, GCS 15, oriented to person, place, time, and situation. Cranial nerves II-XII grossly intact. Motor strength 5/5 in all extremities. Sensory grossly intact. Cerebellar exam normal. Normal gait. Psych: Awake, alert, with orientation to person, place and time. Behavior, mood, and affect are within normal limits. Vital Signs: 14:52 BP 132 / 67; Pulse 89; Resp 16; Temp 97.6; Pulse Ox 98% on R/A; Weight 97.52 kg; Height iw 5 ft. 0 in. (152.40 cm); Pain 9/10; 15:30 BP 128 / 73; Pulse 75; Resp 17; Pulse Ox 97% ; Pain 9/10; jg9 16:00 BP 125 / 51; Pulse 65; Resp 18 S; Pulse Ox 95% ; Pain 7/10; jg9 16:30 BP 136 / 74; Pulse 63; Resp 18; Pulse Ox 97% on R/A; jg9 17:30 BP 133 / 58; Pulse 67; Resp 17; Pulse Ox 98% on R/A; vg1 18:30 BP 150 / 42; Pulse 71; Resp 15 S; Pulse Ox 97% on R/A; Pain 5/10; jg9 19:26 BP 113 / 44; Pulse 68; Resp 17; Pulse Ox 95% ; vc1 20:00 BP 128 / 49; Pulse 68; Resp 17; Pulse Ox 98% ; vc1 21:00 BP 105 / 46; Pulse 68; Resp 15; Pulse Ox 98% ; vc1 22:12 BP 115 / 50; Pulse 77; Resp 14; Pulse Ox 95% ; vc1 23:30 BP 100 / 46; Pulse 68; Resp 15; Pulse Ox 91% ; vc1 14:52 Body Mass Index 41.99 (97.52 kg, 152.40 cm) iw MDM: 18:29 Patient medically screened. kdr 18:32 Data reviewed: vital signs, nurses notes, lab test result(s), radiologic studies. kdr Counseling: I had a detailed discussion with the patient and/or guardian regarding: the historical points, exam findings, and any diagnostic results supporting the discharge/admit diagnosis, lab results, radiology results, the need for further work-up and treatment in the hospital. 18:39 ED course: Dr. Rebolledo to check CT results prior to completion of admission. kdr 10/15 15:11 Order name: Basic Metabolic Panel; Complete Time: 16:52 em1 10/15 15:11 Order name: CBC with Diff; Complete Time: 16:52 em1 10/15 15:11 Order name: Troponin HS; Complete Time: 16:52 em1 10/15 16:53 Order name: Troponin High Sensitivity: Draw 2 hours after initial draw; Complete Time: kdr 18:10/15 18:42 Order name: SARS RAPID; Complete Time: 19:27 jg9 10/16 00:56 Order name: Glucose, Ancillary Testing; Complete Time: 01:34 EDMS 10/16 01:37 Order name: Troponin High Sensitivity; Complete Time: 01:55 EDMS 10/16 01:40 Order name: Urinalysis; Complete Time: 01:55 EDMS 10/16 02:42 Order name: CBC with Automated Diff; Complete Time: 02:56 EDMS 10/16 03:03 Order name: Basic Metabolic Panel; Complete Time: 03:57 EDMS 10/16 03:03 Order name: Phosphorus; Complete Time: 03:57 EDMS 10/16 03:03 Order name: Lipid Profile; Complete Time: 03:57 EDMS 10/16 03:04 Order name: Magnesium; Complete Time: 03:57 EDMS 10/16 03:11 Order name: Hemoglobin A1c; Complete Time: 03:57 EDMS 10/15 15:11 Order name: XRAY Chest (1 view); Complete Time: 16:52 em1 10/15 15:11 Order name: EKG; Complete Time: 15:11 em1 10/15 15:11 Order name: Cardiac monitoring; Complete Time: 15:12 em1 10/15 15:11 Order name: EKG - Nurse/Tech; Complete Time: 15:12 em1 10/15 15:11 Order name: IV Saline Lock; Complete Time: 15:12 em1 10/15 15:11 Order name: Labs collected and sent; Complete Time: 15:12 em1 10/15 15:11 Order name: O2 Per Protocol; Complete Time: 15:12 em1 10/15 18:34 Order name: CT Chest Wo Con; Complete Time: 19:09 kdr 10/16 06:19 Order name: Glucose, Ancillary Testing EDMS 10/16 08:21 Order name: CT EDMS 10/16 09:09 Order name: Glucose, Ancillary Testing EDMS 10/15 15:11 Order name: O2 Sat Monitoring; Complete Time: 15:12 em1 10/15 18:27 Order name: EKG - Nurse/Tech; Complete Time: 18:38 kdr EC:38 Rate is 70 beats/min. Rhythm is regular, Sinus Rhythm with No ectopy. QRS Ellis is kdr Normal. [place] interval is normal. QRS interval is normal. QT interval is normal. Clinical impression: NSR w/ Non-specific ST/T Changes. 18:42 Rate is 68 beats/min. Rhythm is regular, Sinus Rhythm with No ectopy. QRS Ellis is kdr Normal. [place] interval is normal. QRS interval is normal. QT interval is normal. Clinical impression: NSR w/ Non-specific ST/T Changes. Administered Medications: 15:35 Drug: Zofran (Ondansetron) 4 mg Route: IVP; Site: right forearm; jg9 16:06 Follow up: Response: No adverse reaction; Nausea is decreased jg9 15:39 Drug: morphine 4 mg Route: IVP; Infused Over: 4 mins; Site: right forearm; jg9 16:06 Follow up: Response: No adverse reaction; Pain is decreased jg9 18:36 Drug: Zofran (Ondansetron) 4 mg Route: IVP; Site: right forearm; jg9 19:02 Follow up: Response: No adverse reaction jg9 18:37 Drug: morphine 4 mg Route: IVP; Infused Over: 4 mins; Site: right forearm; jg9 19:03 Follow up: Response: No adverse reaction; Pain is decreased jg9 18:40 Drug: Imdur (isosorbide mononitrate) 30 mg Route: PO; jg9 19:03 Follow up: Response: No adverse reaction jg9 Disposition Summary: 10/15/21 18:29 Hospitalization Ordered Hospitalization Status: Inpatient Admission kdr Provider: Lopez, Jan kdr Condition: Fair kdr Problem: an acute exacerbation kdr Symptoms: have improved kdr Bed/Room Type: Standard kdr Location: [facility] ER HOLD(10/15/21 21:41) cg Room Assignment: ERHOLD-(10/15/21 21:41) cg Diagnosis - Unstable angina kdr - 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
--- NOTE | 2021-10-15 18:29 | ER ---
Nurse's Notes [facility] Name: Tamy Martinez Age: 61 yrs Sex: Female : 1960 Arrival Date: 10/15/2021 Time: 14:51 Bed 20 Private MD: Diagnosis: Unstable angina;Atherosclerotic heart disease of [place] coronary artery with unstable angina pectoris Presentation: 10/15 14:52 Chief complaint: Patient states: right sided chest pain radiating to right arm started iw this morning, has had [address] Mcdonald , last stent 3 months ago, BS was also high today and my head is hurting. Coronavirus screen: At this time, the client does not indicate any symptoms associated with coronavirus-19. Ebola Screen: Patient negative for fever greater than or equal to 101.5 degrees Fahrenheit, and additional compatible Ebola Virus Disease symptoms Patient denies exposure to infectious person. Patient denies travel to an Ebola-affected area in the 21 days before illness onset. No symptoms or risks identified at this time. Initial Sepsis Screen: Does the patient meet any 2 criteria? No. Patient's initial sepsis screen is negative. Does the patient have a suspected source of infection? No. Patient's initial sepsis screen is negative. Risk Assessment: Do you want to hurt yourself or someone else? Patient reports no desire to harm self or others. Onset of symptoms was October 15, 2021. 14:52 Method Of Arrival: Ambulatory iw 14:52 Acuity: HODAN 2 iw Historical: - Allergies: 14:53 Iodinated Contrast Media - IV Dye; iw - Home Meds: 14:53 aspirin 81 mg Oral TbEC once daily [Active]; isosorbide dinitrate 10 mg Oral tab iw [Active]; losartan 25 mg Oral tab once daily [Active]; Lantus 100 unit/mL Sub-Q soln 26 unit nightly [Active]; methotrexate sodium 2.5 mg Oral tab [Active]; Novolog Sub-Q sliding scale [Active]; Plavix 75 mg Oral tab once daily [Active]; Tresiba U-100 Insulin 100 unit/mL subcutaneous soln [Active]; Xeljanz 11 mg Oral daily [Active]; - PMHx: 14:53 Diabetes - IDDM; Hypertension resolved after lap band; Myocardial infarction; iw Hypertension; Rheumatoid Arthritis; - Immunization history:: Client reports having NOT received the Covid vaccine. - Social history:: Smoking status: Patient denies any tobacco usage or history of. Screenin:03 Abuse screen: Denies threats or abuse. Nutritional screening: No deficits noted. vg1 Tuberculosis screening: No symptoms or risk factors identified. Fall Risk No fall in past 12 months (0 pts). No secondary diagnosis (0 pts). IV access (20 points). Ambulatory Aid- None/Bed Rest/Nurse Assist (0 pts). Gait- Normal/Bed Rest/Wheelchair (0 pts) Mental Status- Oriented to own ability (0 pts). Total Green Fall Scale indicates No Risk (0-24 pts). Assessment: 15:03 General: Appears in no apparent distress. uncomfortable, Behavior is calm, cooperative. vg1 Pain: Complains of pain in mid-sternal area Pain radiates to right arm Pain currently is 9 out of 10 on a pain scale. Pain began this morning. Neuro: Level of Consciousness is awake, alert, obeys commands, Oriented to person, place, time, situation, Reports dizziness, headache. Cardiovascular: Reports chest pain, nausea, shortness of breath, Patient's skin is warm and dry. Chest pain began 'this morning before going to work". Respiratory: Airway is patent Respiratory effort is even, unlabored. GI: Reports nausea. : No signs and/or symptoms were reported regarding the genitourinary system. EENT: No signs and/or symptoms were reported regarding the EENT system. Derm: Skin is intact, Skin is pink, warm \\T\\ dry. Musculoskeletal: Circulation, motion, and sensation intact. 15:57 Reassessment: Patient appears in no apparent distress at this time. Patient and/or vg1 family updated on plan of care and expected duration. Pain level reassessed. Patient is alert, oriented x 3, equal unlabored respirations, skin warm/dry/pink. stated CP 09/19. 16:36 Reassessment: No changes from previously documented assessment. Patient and/or family jg9 updated on plan of care and expected duration. Pain level reassessed. Patient is alert, oriented x 3, equal unlabored respirations, skin warm/dry/pink. 17:32 Reassessment: Patient appears in no apparent distress at this time. Patient and/or vg1 family updated on plan of care and expected duration. Pain level reassessed. Patient is alert, oriented x 3, equal unlabored respirations, skin warm/dry/pink. 18:38 Reassessment: No changes from previously documented assessment. Patient and/or family jg9 updated on plan of care and expected duration. Pain level reassessed. Patient is alert, oriented x 3, equal unlabored respirations, skin warm/dry/pink. Patient up to the bathroom with 1 person assist, reports mild pain in the left chest area, 07/20. 19:26 Reassessment: Patient and/or family updated on plan of care and expected duration. Pain vc1 level reassessed. Patient is alert, oriented x 3, equal unlabored respirations, skin warm/dry/pink. 20:30 Reassessment: No changes from previously documented assessment. Patient and/or family vc1 updated on plan of care and expected duration. Pain level reassessed. Patient is alert, oriented x 3, equal unlabored respirations, skin warm/dry/pink. 21:30 Reassessment: Patient and/or family updated on plan of care and expected duration. Pain vc1 level reassessed. Patient is alert, oriented x 3, equal unlabored respirations, skin warm/dry/pink. Patient states symptoms have improved. 22:11 Reassessment: Patient and/or family updated on plan of care and expected duration. Pain vc1 level reassessed. Patient is alert, oriented x 3, equal unlabored respirations, skin warm/dry/pink. States back hurts from laying in bed, will look for regular hospital bed.. 23:50 Reassessment: No changes from previously documented assessment. Patient and/or family vc1 updated on plan of care and expected duration. Pain level reassessed. Patient is alert, oriented x 3, equal unlabored respirations, skin warm/dry/pink. Vital Signs: 14:52 BP 132 / 67; Pulse 89; Resp 16; Temp 97.6; Pulse Ox 98% on R/A; Weight 97.52 kg; Height iw 5 ft. 0 in. (152.40 cm); Pain 9/10; 15:30 BP 128 / 73; Pulse 75; Resp 17; Pulse Ox 97% ; Pain 9/10; jg9 16:00 BP 125 / 51; Pulse 65; Resp 18 S; Pulse Ox 95% ; Pain 7/10; jg9 16:30 BP 136 / 74; Pulse 63; Resp 18; Pulse Ox 97% on R/A; jg9 17:30 BP 133 / 58; Pulse 67; Resp 17; Pulse Ox 98% on R/A; vg1 18:30 BP 150 / 42; Pulse 71; Resp 15 S; Pulse Ox 97% on R/A; Pain 5/10; jg9 19:26 BP 113 / 44; Pulse 68; Resp 17; Pulse Ox 95% ; vc1 20:00 BP 128 / 49; Pulse 68; Resp 17; Pulse Ox 98% ; vc1 21:00 BP 105 / 46; Pulse 68; Resp 15; Pulse Ox 98% ; vc1 22:12 BP 115 / 50; Pulse 77; Resp 14; Pulse Ox 95% ; vc1 23:30 BP 100 / 46; Pulse 68; Resp 15; Pulse Ox 91% ; vc1 14:52 Body Mass Index 41.99 (97.52 kg, 152.40 cm) iw ED Course: 14:51 Patient arrived in ED. iw 14:53 Triage completed. iw 14:54 Mary Grullon, RN is Primary Nurse. vg1 14:54 Arm band placed on. iw 15:03 Patient has correct armband on for positive identification. Placed in gown. Bed in low vg1 position. Call light in reach. Side rails up X 1. Client placed on continuous cardiac and pulse oximetry monitoring. NIBP monitoring applied. 15:03 Patient maintains SpO2 saturation greater than 95% on room air. vg1 15:05 Telly Parada MD is Attending Physician. kdr 15:10 Inserted saline lock: 20 gauge in right antecubital area, using aseptic technique. tp1 Blood collected. IV discontinued, intact, bleeding controlled, No redness/swelling at site. Pressure dressing applied. 15:10 EKG done. tp1 15:16 Inserted saline lock: 22 gauge in right forearm, using aseptic technique. tp1 15:48 XRAY Chest (1 view) In Process Unspecified. EDMS 16:07 No apparent distress. Resting quietly. Awaiting lab results, Awaiting radiology results.jg9 17:32 Repeat lab(s) drawn. by me, sent to lab. vg1 18:28 Jan Lopez MD is Hospitalizing Provider. kdr 18:55 CT Chest Wo Con In Process Unspecified. EDMS 23:50 No provider procedures requiring assistance completed. vc1 Administered Medications: 15:35 Drug: Zofran (Ondansetron) 4 mg Route: IVP; Site: right forearm; jg9 16:06 Follow up: Response: No adverse reaction; Nausea is decreased jg9 15:39 Drug: morphine 4 mg Route: IVP; Infused Over: 4 mins; Site: right forearm; jg9 16:06 Follow up: Response: No adverse reaction; Pain is decreased jg9 18:36 Drug: Zofran (Ondansetron) 4 mg Route: IVP; Site: right forearm; jg9 19:02 Follow up: Response: No adverse reaction jg9 18:37 Drug: morphine 4 mg Route: IVP; Infused Over: 4 mins; Site: right forearm; jg9 19:03 Follow up: Response: No adverse reaction; Pain is decreased jg9 18:40 Drug: Imdur (isosorbide mononitrate) 30 mg Route: PO; jg9 19:03 Follow up: Response: No adverse reaction jg9 Medication: 15:03 VIS not applicable for this client. vg1 Outcome: 18:29 Decision to Hospitalize by Provider. kdr 23:51 Admitted to ER Hold. Please see [facility] for further documentation. vc1 23:51 Condition: good 23:51 Instructed on the need for admit. 10/16 12:17 Patient left the ED. vg1 Signatures: Dispatcher [employer] EDMS Telly Parada MD MD kdr Williams, Irene, RN RN iw Garcia, Victoria, RN RN vg1 Tila Castillo RN RN tp1 Zoraida Clark RN RN jg9 Kamla Maharaj RN RN vc1 Corrections: (The following items were deleted from the chart) 10/15 17:51 17:32 BP 120 / 42; Pulse 67bpm; Resp 21bpm; Pulse Ox 98% RA; vg1 vg1 17:51 17:30 BP 133 / 58; Pulse 67bpm; Resp 17bpm; Pulse Ox 98% RA; vg1 vg1
[2021-10-15] MEDS ORDERED: ISOSORBIDE MONO SR 30 MG TAB PO SCH (19:00)
--- NOTE | 2021-10-15 19:02 | RAD REPORT ---
EXAM DESCRIPTION: CT - Thorax Wo Con - 10/15/2021 6:53 pm CLINICAL HISTORY: Chest pain COMPARISON: July 2021 TECHNIQUE: Computed axial tomography of the chest was obtained. Contrast was not requested. All CT scans are performed using dose optimization technique as appropriate and may include automated exposure control or mA/KV adjustment according to patient size. FINDINGS: The evaluation of mediastinum, isaias and vessels is limited secondary to lack of IV contras t administration. Minimal chronic interstitial opacities left lung. Calcified lung granuloma. Right lung is clear. No mediastinal or hilar lymphadenopathy is seen. A pleural effusion is not present. No pericardial effusion. Coronary arterial calcifications. Gastric lap band in place IMPRESSION: No acute abnormality is displayed
[2021-10-15 19:23] LABS: SARS-CoV-2 Antigen Rapid Res Negative (Negative)
--- NOTE | 2021-10-15 20:15 | P.HP ---
Certification for Inpatient Patient admitted to: Observation With expected LOS: <2 Midnights Patient will require the following post-hospital care: None Practitioner: I am a practitioner with admitting privileges, knowledge of patient current condition, hospital course, and medical plan of care. Services: Services provided to patient in accordance with Admission requirements found in Title 42 Section 412.3 of the Code of Federal Regulations Patient History Date of Service: 10/15/21 Reason for admission: Unstable Angina History of Present Illness: Patient is a 61-year-old female with CAD s/p 7 stents (cardiac cath 3 months ago), type 2 diabetes insulin dependent, and HTN who presented to the ED with complaints of right sided chest pain. Patient reports that the pain began this morning and radiates to her right arm and neck. She states that she has been in the process of moving homes. She was admitted about 3 months ago and had an echo with EF of 51%. She was discharged and had a cardiac cath shortly after in which 2 additional stents were placed. She denies any issues since then. Her labs today were insignificant- initial troponin and 2 hour repeat negative. EKG without ST changes. Vital signs stable. Cardiology was notified and wishes for patient to admitted under hospitalist for observation. Allergies Iodinated Contrast Media [Iodinated Contrast Media - Oral and] Allergy (Severe, Verified 03/13/17 21:21) Unknown iodine [Iodine] Allergy (Severe, Verified 04/11/16 14:05) Itching and swelling Home medications list reviewed: Yes Home Medications: Gabapentin [Neurontin] 600 mg PO BID 02/25/20 Losartan Potassium [Cozaar] 50 mg PO DAILY 02/25/20 Atorvastatin Calcium [Lipitor] 40 mg PO BEDTIME #30 tab 02/28/20 Clopidogrel Bisulfate [Plavix*] 75 mg PO DAILY #30 tablet 02/28/20 Methotrexate [Methotrexate*] 5 tab PO Q7D 03/05/20 Metoprolol Tartrate [Lopressor*] 12.5 mg PO BID 04/13/20 Folic Acid 1 mg PO DAILY 04/13/21 Insulin Aspart 8 units SQ BREAKFAST 04/13/21 Insulin Degludec [Tresiba] 26 unit SQ BREAKFAST 04/13/21 Isosorbide Mononitrate [Isosorbide Mononitrate ER] 60 mg PO DAILY 30 Days #30 tab.er.24h 04/14/21 Aspirin [Aspirin EC 81 MG] 81 mg PO DAILY 07/13/21 Duloxetine [Cymbalta *] 1 pill PO DAILY 07/13/21 Nitroglycerin 0.4 mg SL 1X 07/13/21 Tofacitinib Citrate [Xeljanz Xr] 1 pill PO DAILY 07/13/21 Albuterol Inhaler [Ventolin Inhaler*] 2 puff IH Q6H PRN #1 hfa.aer.ad 07/15/21 Cefdinir [Omnicef] 300 mg PO BID #14 capsule 07/15/21 Furosemide [Lasix*] 40 mg PO DAILY #30 tab 07/15/21 Ondansetron [Zofran] 4 mg PO Q6H PRN #20 tab 07/15/21 Potassium Chloride [K-Dur] 10 meq PO DAILY #30 tab.er.prt 07/15/21 predniSONE [Deltasone] 20 mg PO BID #11 tab 07/15/21 - Past Medical/Surgical History Diabetic: Yes -: Diabetes mellitus type 2, Insulin Dependent -: HTN -: Rheuamtoid Arthritis -: Degenerative disk and joint disease of the spine -: CAD -: Lap band 2009 -: x2 -: Left knee replacement -: Cholecystectomy -: right knee replacement -: Stent x7 Psychosocial/ Personal History: She is , has 2 children. She does not work. - Family History Father -: Hypertension Notes: brother had PR at 30; Mother -: Cancer Notes: esophageal - Social History Smoking Status: Never smoker Alcohol use: No CD- Drugs: No Caffeine use: Yes Place of Residence: Home Review of Systems Cardiovascular: Chest Pain Physical Examination - Physical Exam General: Alert, In no apparent distress, Obese HEENT: Atraumatic, PERRLA, EOMI, Sclerae nonicteric Neck: Supple, 2+ carotid pulse no bruit, No LAD, Without JVD or thyroid abnormality Respiratory: Clear to auscultation bilaterally, Normal air movement Cardiovascular: No edema, Regular rate/rhythm, Normal S1 S2 Gastrointestinal: Normal bowel sounds, No tenderness Musculoskeletal: No tenderness Integumentary: No rashes Neurological: Normal speech, Normal strength at 5/5 x4 extr, Normal tone, Normal affect - Studies Laboratory Data (last 24 hrs) 10/15/21 15:07: WBC 5.6, Hgb 12.3, Hct 37.5, Plt Count 235 10/15/21 15:07: Sodium 137, Potassium 4.1, BUN 24 H, Creatinine 1.14, Glucose 387 H Assessment and Plan - Problems (Diagnosis) (1) Unstable angina Current Visit: Yes Status: Acute (2) Coronary artery disease Current Visit: Yes Status: Chronic Qualifiers: Coronary Disease-Associated Artery/Lesion type: [place] artery [place] vs. 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 recheck in 6 hours. EKG without acute changes. Cardiology consulted. Monitor on telemetry. Continue home aspirin, plavix, atorvastatin, imdur, and metoprolol. Lipid panel in morning. Patient reports recent cardiac cath in July with [address] Mcdonald at [place]. Echo in july with EF of 51%. Type 2 Diabetes Mellitus, Insulin Dependent: glucose elevated at 387. Patient reports her BS does not typically run that high, and that it was in the 100s this morning. ACHS accuchecks with moderate sliding scale insulin and diabetic diet. Continue home long acting insulin once verified. A1c in morning. CKD3a: stable. Continue home medications Rheumatoid Arthritis: stable. Continue home medications Monitor and replete electrolytes per protocol Lovenox for VTE ppx Full code Discharge Plan: Home Plan to discharge in: 24 Hours - Advance Directives Does patient have a Living Will: Yes Does patient have a Durable POA for Healthcare: No - Code Status/Comfort Care Code Status Assessed: Yes (Full) Critical Care: No Time Spent Managing Pts Care (In Minutes): 50
[2021-10-15] MEDS ORDERED: ACETAMINOPHEN 500 MG TAB PO PRN (22:15)
[2021-10-15] MEDS ORDERED: MORPHINE 2 MG/ML SYR IV PRN (22:15)
[2021-10-15] MEDS ORDERED: ONDANSETRON 4 MG/2 ML VIAL IV PRN (22:15)
[2021-10-15] MEDS ORDERED: ATORVASTATIN 40 MG TAB PO SCH (22:15)
[2021-10-15 22:19] VITALS: BMI 42.0
[2021-10-16] MEDS: INSULIN -REGULAR HUMAN 50 UNIT/0.5 ML ML SQ SCH ×2 (00:50→09:30)
[2021-10-16] MEDS ORDERED: INSULIN -REGULAR HUMAN 50 UNIT/0.5 ML ML ONE ×2 (00:56→09:33)
[2021-10-16] MEDS ORDERED: ATORVASTATIN 20 MG TAB ONE (00:56)
[2021-10-16 01:39] LABS: Specific Gravity 1.025 (1.005-1.030); Urine Bilirubin Negative (Negative); Urine Blood Negative (Negative); Urine Clarity Clear (Clear); Urine Color Yellow (Yellow); Urine Glucose 2+ (Negative); Urine Protein Negative (Negative); Urine Urobilinogen 0.2 mg/dL (0.2-1.0); Urine pH 5.5 (5.0-7.0)
[2021-10-16 02:39] LABS: Absolute Lymphocytes (CBC) 1.3 K/uL (0.7-4.9); Hematocrit 35.3 % (36.0-45.0); Lymphocytes % 19.7 % (15.3-44.8); MCV 79.7 fL (80-100); MPV 7.6 fL (7.6-11.3); RBC Red Blood Cell Count 4.42 M/uL (3.86-4.86)
[2021-10-16 02:55] LABS: Magnesium 1.8 mg/dL (1.8-2.4); Phosphorus 3.5 mg/dL (2.5-4.9); Potassium 4.1 mmol/L (3.5-5.1)
--- NOTE | 2021-10-16 08:21 | RAD REPORT ---
EXAM DESCRIPTION: CT - Ct Stroke Brain Wo Cont - 10/16/2021 8:13 am CLINICAL HISTORY: lightheaded, transient ataxia Headache, drowsiness, CVA symptomology COMPARISON: Head Brain Wo Cont dated 04/12/2021; Head Brain Wo Cont dated 09/25/2018 TECHNIQUE: All CT scans are performed using dose optimization technique as appropriate and may inclu de automated exposure control or mA/KV adjustment according to patient size. FINDINGS: No intracranial hemorrhage, hydrocephalus or extra-axial fluid collection.No areas of brai n edema or evidence of midline shift. The paranasal sinuses and mastoids are clear. The calvarium is intact. Right vertebral atherosclerosi s. IMPRESSION: No acute intracranial abnormality.
[2021-10-16] MEDS ORDERED: CLOPIDOGREL 75 MG TABLET PO SCH (09:00)
[2021-10-16] MEDS ORDERED: ENOXAPARIN 40 MG/0.4 ML SQ SCH (09:00)
[2021-10-16] MEDS ORDERED: ASPIRIN EC 81 MG TAB PO SCH (09:00)
--- NOTE | 2021-10-16 09:09 | CON ---
Date of Consultation: 10/16/2021 Reason For Consultation: Chest pain. History Of Present Illness: Ms. Martinez is 61 years old. She is known to us from previous office vis its and multiple hospital admissions. Her last catheterization was in April 2021 when she was fou nd to have diffuse plaquing in the LAD and the circumflex, and she has some stenosis proximally in th e RCA and very distal right in the PDA and posterolateral bifurcation. Her RCA, however, is about a 1.5 mm vessel and she has been treated medically for that. She has a history of hypertension, diabet es. She is status post lap band surgery, has dyslipidemia, rheumatoid arthritis. Typical angina wit h negative troponin, negative EKG and negative BNP. She had a negative chest x-ray, negative chest C T. Her glucose was 387. She is pain free now. Allergies: IODINE. Review of Systems: Negative. Social History: Negative. Family History: Negative. Medications At Home: Include aspirin, Lipitor, Plavix, Lasix, insulin, Neurontin, Imdur, losartan, m etoprolol, methotrexate, potassium, Xeljanz, and prednisone. Physical Examination: Vital Signs: Stable. She was afebrile. HEENT: Negative. Neck: Supple with no bruit. Chest: Clear. Cardiac: Revealed a regular rhythm and rate. No murmurs, gallops, or rubs. Abdomen: Benign. Extremities: Revealed no clubbing, cyanosis, or edema. Diagnostic Data: Unremarkable. Impression And Plan: Stable angina in a patient with known coronary artery disease, small coronary a rteries on the right side, diffuse plaquing in the LAD and the circumflex. She is ruled out for myoc ardial infarction. I certainly do not plan to do another catheterization on her at this point. I wo uld like her to go home on her present regimen except that she needs to increase her Imdur and increa se her metoprolol dose. I will discuss the case further with her primary admitting physician. Her o ther problems including hypertension, rheumatoid arthritis, and dyslipidemia are stable. Her diabete s needs to be better controlled. MARJORIE/MODL Voice ID: [id number] Report ID: [id number]
--- NOTE | 2021-10-16 09:13 | EKG ---
Test Date: 2021-10-15 Test Time: 18:36:56 Galvanizer: OFE MEASUREMENT RESULTS: Intervals: Rate: 68 ID: [id number] QRSD: 82 QT: 424 QTc: 450 [place]: P: 57 ID: [id number] QRS: 32 T: 39 INTERPRETIVE STATEMENTS: Normal sinus rhythm Cannot rule out Anterior infarct, age undetermined Abnormal ECG Compared to ECG 07/12/2021 20:23:15 Sinus tachycardia no longer present Left-axis deviation no longer present ST (T wave) deviation no longer present Possible ischemia no longer present Myocardial infarct finding still present Electronically Signed On 10-16-21 09:12:47 CDT by Tarun Edward
[2021-10-16] MEDS ORDERED: CLOPIDOGREL 75 MG TABLET ONE (09:32)
[2021-10-16] MEDS ORDERED: ENOXAPARIN 40 MG/0.4 ML SQ ONE (09:34)
[2021-10-16] MEDS ORDERED: ASPIRIN EC 81 MG TAB PO ONE (09:35)
[2021-10-16 13:15] VITALS: TEMP 97.6
[2021-10-16 13:41] VITALS: BP 100/46; O2SAT 91
--- NOTE | 2021-10-16 20:09 | P.DS ---
Admission Date: 10/15/21 Discharge Date: 10/16/21 Disposition: ROUTINE DISCHARGE Discharge Condition: GOOD Reason for Admission: Unstable Angina Consultations: Cardiology - Dr. Edward Brief History of Present Illness: 61yo F, PMH: CAD s/p PCIx7 (last done ~3 months ago), IDDM2, HTN, RA, s/p lap band Presented to the ED with right sided chest pain, radiated down arm and to neck. Associated with lightheadedness. 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 She reports increased stressors lately with divorce, moving homes, and ran out of her metoprolol and atorvastatin. She has not had any unusual chest pain / symptoms since her last cardiac cath with stent placement in July 2021. In the ED, EKG without ST changes, initial troponin and 2hr repeat were negative. Cardiology was consulted and recommended observation overnight. Hospital Course: Problem List Chest pain CAD s/p PCIx7 DM2, insulin dependent CKD3a RA HTN s/p lap band Patient's chest pain was evaluated by EKG, troponins, CT chest, which were all normal. Cardiology was consulted, and patient was deemed stable for discharge home. Recommended to increase metoprolol dose from 12.5mg twice daily to 25mg twice daily and possibly restart imdur. Patient reported imdur was discontinued after her cardiac cath in [place] a few months ago, she is not sure why. Follow up with Cardiology in ~3 weeks. Patient reported some slight dizziness /lightheadedness as well. CT head was negative. Symptoms resolved. Advised to monitor her blood pressure and heart rate. Vital Signs/Physical Exam: Temp Pulse Resp BP Pulse Ox 97.6 F 68 15 100/46 L 100 10/16/21 13:13 10/16/21 13:38 10/16/21 13:38 10/16/21 13:38 10/16/21 08:00 General: Alert, In no apparent distress, Oriented x3 HEENT: EOMI, Sclerae nonicteric Neck: Supple, No LAD Respiratory: Clear to auscultation bilaterally, Normal air movement Cardiovascular: No edema, Regular rate/rhythm Gastrointestinal: Soft and benign, Non-distended, No tenderness Musculoskeletal: No contractures, No tenderness Integumentary: No significant lesion, No tenderness/swelling Neurological: Normal speech, Normal strength at 5/5 x4 extr, Normal affect Laboratory Data at Discharge: WBC 6.7 K/uL (4.3-10.9) D 10/16/21 02:05 Hgb 11.9 g/dL (12.0-15.0) L 10/16/21 02:05 Hct 35.3 % (36.0-45.0) L 10/16/21 02:05 Plt Count 213 K/uL (152-406) 10/16/21 02:05 Sodium 134 mmol/L (136-145) L 10/16/21 02:05 Potassium 4.1 mmol/L (3.5-5.1) 10/16/21 02:05 BUN 21 mg/dL (7-18) H 10/16/21 02:05 Creatinine 1.04 mg/dL (0.55-1.3) 10/16/21 02:05 Glucose 297 mg/dL (74-106) H 10/16/21 02:05 Phosphorus 3.5 mg/dL (2.5-4.9) 10/16/21 02:05 Magnesium 1.8 mg/dL (1.8-2.4) 10/16/21 02:05 Triglycerides 163 mg/dL (<150) H 10/16/21 02:05 Cholesterol 162 mg/dL (<200) 10/16/21 02:05 HDL Cholesterol 42 mg/dL (40-60) 10/16/21 02:05 Cholesterol/HDL Ratio 3.86 10/16/21 02:05 Home Medications: Gabapentin [Neurontin] 600 mg PO BID 02/25/20 Losartan Potassium [Cozaar] 50 mg PO DAILY 02/25/20 Clopidogrel Bisulfate [Plavix*] 75 mg PO DAILY #30 tablet 02/28/20 Methotrexate [Methotrexate*] 5 tab PO Q7D 03/05/20 Folic Acid 1 mg PO DAILY 04/13/21 Insulin Aspart 8 units SQ BREAKFAST 04/13/21 Insulin Degludec [Tresiba] 26 unit SQ BREAKFAST 04/13/21 Aspirin [Aspirin EC 81 MG] 81 mg PO DAILY 07/13/21 Duloxetine [Cymbalta *] 1 pill PO DAILY 07/13/21 Nitroglycerin 0.4 mg SL 1X 07/13/21 Tofacitinib Citrate [Xeljanz Xr] 1 pill PO DAILY 07/13/21 Albuterol Inhaler [Ventolin Inhaler*] 2 puff IH Q6H PRN #1 hfa.aer.ad 07/15/21 Furosemide [Lasix*] 40 mg PO DAILY #30 tab 07/15/21 Ondansetron [Zofran (Odt)*] 4 mg PO Q6H PRN #20 tab 07/15/21 Potassium Chloride [K-Dur] 10 meq PO DAILY #30 tab.er.prt 07/15/21 Atorvastatin Calcium [Lipitor] 40 mg PO BEDTIME 30 Days #30 tab 10/16/21 Metoprolol Tartrate [Lopressor*] 1 tab PO BID 30 Days #60 tab 10/16/21 New Medications: Atorvastatin Calcium [Lipitor] 40 mg PO BEDTIME 30 Days #30 tab Metoprolol Tartrate [Lopressor*] 1 tab PO BID 30 Days #60 tab Physician Discharge Instructions: Patient's chest pain was evaluated by EKG, troponins, CT chest, which were all normal. Cardiology was consulted, and patient was deemed stable for discharge home. Recommended to increase metoprolol dose from 12.5mg twice daily to 25mg twice daily and possibly restart imdur. Patient reported imdur was discontinued after her cardiac cath in [place] a few months ago, she is not sure why. Follow up with Cardiology in ~3 weeks. Patient reported some slight dizziness /lightheadedness as well. CT head was negative. Symptoms resolved. Advised to monitor her blood pressure and heart rate. Diet: ADA Activity: Ad anne Followup: NONE,NONE [Primary Care Provider] - Time spent managing pt's care (in minutes): 45
--- NOTE | 2021-10-18 13:52 | EKG ---
Test Date: 2021-10-15 Test Time: 15:03:36 Astrobiologist: DORETHA MEASUREMENT RESULTS: Intervals: Rate: 70 OK: 140 QRSD: 82 QT: 410 QTc: 442 [place]: P: 63 OK: 140 QRS: -2 T: 50 INTERPRETIVE STATEMENTS: Normal sinus rhythm Cannot rule out Anterior infarct, age undetermined Abnormal ECG Compared to ECG 07/12/2021 20:23:15 Sinus tachycardia no longer present Left-axis deviation no longer present ST (T wave) deviation no longer present Possible ischemia no longer present Myocardial infarct finding still present Electronically Signed On 10-18-21 13:47:32 CDT by Dany Mcdonald
== END 2021-10-16 12:16 | disposition home or self-care (01) ==
LOC: ER 14:48 → ERHOLD 19:52
PROVIDERS: ADMIT Hospitalist; ATTEND Hospitalist
DX: I25.110 Atherosclerotic heart disease of native coronary artery with unstable angina pectoris (principal); I12.9 Hypertensive chronic kidney disease with stage 1 through stage 4 chronic kidney disease, or unspecified chronic kidney disease; E11.22 Type 2 diabetes mellitus with diabetic chronic kidney disease; E11.65 Type 2 diabetes mellitus with hyperglycemia; N18.31 Chronic kidney disease, stage 3a; R42 Dizziness and giddiness; E78.5 Hyperlipidemia, unspecified; M06.9 Rheumatoid arthritis, unspecified; I25.2 Old myocardial infarction; Z95.5 Presence of coronary angioplasty implant and graft; Z28.310 Unvaccinated for COVID-19; Z20.822 Contact with and (suspected) exposure to COVID-19; Z79.02 Long term (current) use of antithrombotics/antiplatelets; Z79.82 Long term (current) use of aspirin; Z79.4 Long term (current) use of insulin; Z79.52 Long term (current) use of systemic steroids; Z79.899 Other long term (current) drug therapy; Z91.041 Radiographic dye allergy status; Z98.84 Bariatric surgery status; Z96.652 Presence of left artificial knee joint; Z90.49 Acquired absence of other specified parts of digestive tract; Z82.49 Family history of ischemic heart disease and other diseases of the circulatory system; Z80.0 Family history of malignant neoplasm of digestive organs
CPT/HCPCS: 93005; 85025 ×2; 80048 ×2; 36415; 83735; 84100; 80061; 82947 ×3; 81003; 83036; 84484 ×3; 71250; 70450; 71045; 87811; J1815 ×2; J1650; J2405 ×2; 96374; 96375; 99285

== ENCOUNTER 2021-12-30 17:15 | Observation (INO) | payer BC, OTHER ==
--- OUTSIDE RECORDS SUMMARY | 2021-12-30 17:22 | XMS REPORT | Continuity of Care Document ---
:1960 [facility] t Address [address] [place] [address] Care Team Providers Name Role Phone Carrie Costa ANP, Legal Referee Primary Care Physician [phone] Trey Yu MD Attending Clinician Unavailable Kevin Meek Attending Clinician Unavailable CARMELINA CHAIDEZ Attending Clinician Unavailable Rocio Del Rio Attending Clinician CORDELL MANLEY Attending Clinician Unavailable Zenaida RYAN, Alvarado Paredes Attending Clinician Doctor Unassigned, [place] Attending Clinician Unavailable Alejandra Zeng Attending Clinician Unavailable ELISE PARKER Attending Clinician Unavailable TREY YU Attending Clinician Unavailable SHAHNAZ OATES Attending Clinician Unavailable Shahnaz Oates MD Attending Clinician ROCIO CAREY Attending Clinician Unavailable Dany Mcdonald Attending Clinician Unavailable ALVARADO ESTEVEZ Attending Clinician Unavailable KITTY MARIN Attending Clinician Unavailable Brianna RYAN, Rachel K.H. Attending Clinician ANY TOWNSEND Attending Clinician Unavailable Kristian PAC, Any S Attending Clinician Ander 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, Kitty Attending Clinician RACHEL REED K.H. Attending Clinician Unavailable Lab, Ang - Db Attending Clinician Unavailable KATIA KAMARA Attending Clinician Unavailable Norm PRUITT, Kalpana Moyer Attending Clinician Unavailable Katia Kamara MD Attending Clinician Shailesh OLVERA, Della Arzola Attending Clinician Leo Dickinson DO Attending Clinician Renny Reardon MD Attending Clinician Riki RYAN, Tommy Maza Attending Clinician Nurse, [facility] Attending Clinician Unavailable Amada Steinberg Attending Clinician AMADA FERGUSON Attending Clinician Unavailable Pob, Adc Lab Main Attending Clinician Unavailable Justina OLVERA, Day Arzola Attending Clinician Unavailable ATANASOV, STRAHIL T Attending Clinician Unavailable ATANASERVIN STRAHIL T Attending Clinician Unavailable Flako Schwartz DO Attending Clinician Carmelina Chaidez MD Attending Clinician Akash VACAPFaith Attending Clinician FAITH BUSTOS Attending Clinician Unavailable ASHLEY BLUE Attending Clinician Unavailable Marah Prescott DO Attending Clinician Noah RYAN, Juana Attending Clinician Radiology Attending Clinician Unavailable RADIOLOGY Attending Clinician Unavailable Luis Alberto Jordan MD, Joana Douglas Attending Clinician Vielka RYAN, Melba العلي Attending Clinician KEVEN REDMOND Attending Clinician Unavailable Gee Gasca DO Attending Clinician GEE GASCA Attending Clinician Unavailable Pcp-Lab Attending Clinician Unavailable FLAKO ZELAYA Attending Clinician Unavailable Kevin Meek Admitting Clinician Unavailable Alejandra Zeng Admitting Clinician Unavailable [facility], MEDICINE Admitting Clinician Unavailable Tommy Lyn MD Admitting Clinician FAITH BUSTOS Admitting Clinician Unavailable Juana Zamora MD Admitting Clinician FLAKO ZELAYA Admitting Clinician Unavailable Payers Payer Name Policy Type Policy Number Effective Date Expiration Date S ource [employer] [place] - [id number] 2012 00:00:00 OUT OF STATE [facility] STAR [id number] 2018 00:00:00 PLUS Problems Condition Condition Condition Status Onset Resolution Last Treating Co mments Source Name Details Category Date Date Treatment Clinician Date Colitis Colitis Disease Active 2020-03 Univers 1-07 ity of 00:00: [place] 00 Medical Branch At risk At risk Disease Active 2020-03 Univers for falls for falls -07 ity of 00:00: 00 Medical Branch 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 1-07 ity of with with 00:00: [place] depressive depressive 00 Me dical features features Branch due to due to medical medical condition condition Late Late Disease Active 2020-03 [facility] effects of effects of 07 it y of CVA CVA 00:00: [place] (cerebrova (cerebrova 00 Me dical scular scular Branch accident) accident) History of History of Disease Active 2020-03 U nivers stroke stroke 0-29 ity of 00:00: [place] 00 Medical Branch Generalize Generalize Disease Active U nivers d pain d pain 9-24 ity of 00:00: 00 Medical Branch Chest pain Chest pain Disease Active 2019-03 U nivers due to CAD due to CAD 2-31 it y of 00:00: [place] 00 Medical Branch Proliferat Proliferat Disease Active [...] ally from mellitus mellitus request for surgery [id number] Gastric Gastric Disease Active Univers band band [...] of t status t status 00:00: [place] [facility] Diabetes Diabetes Disease Active [facility] mellitus mellitus 1-03 [facility] 00:[facility]: [place] [id number] [facility] Colon Colon Disease Active 2016-03 Univers cancer cancer 1-16 ity of screening screening 00:00: a s [facility] Branch Labial Labial Disease Active 2016-03 Univers lesion lesion 1-16 ity of 00:00: [place] [address] [facility] Branch Long-term Long-term Disease Active Uni vers use of use of 5-11 ity of Plaquenil [place] [facility] 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 5-11 ity of edema of edema of 00:00: [place] both eyes both eyes 00 Medi bharat Branch Senile Senile Disease Active Univers nuclear nuclear 5-11 [place] of sclerosis, sclerosis, [place] bilateral bilateral 00 Medi bharat Branch Dry eyes, Dry eyes, Disease Active Uni vers bilateral bilateral 5-11 ity of 00:00: [place] [address] [facility] IDDM IDDM Disease Active Univers (insulin (insulin 4-01 ity of dependent dependent 00:00: a s diabetes diabetes 00 Medica l mellitus) mellitus) Bran ch Generalize Generalize Disease Active Overview : Univers d d 828 Formattin ity of osteoarthr osteoarthr 00:00: g of this [place] osis of osis of 00 note Medical hand hand might be Branch different from the original. 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 ICD10 Diagnosis Term [employer] Utility Obesity Obesity Disease Active 2011-03 Overview: Univ ers 03-14 Formattin ity of 00:00: g of this [place] 00 note Medical might be Branch different from the original. ICD10 Diagnosis Term [employer] HLD HLD Disease Active 2011-03 Overview: Univer s (hyperlipi (hyperlipi 03-14 Formattin ity of demia) demia) 00:00: g of this 00 note Medical might be Branch different from the original. ICD10 Diagnosis Term [employer] Elevated Elevated Disease Active 2011-03 Unive rs BP BP 02 ity of 00:00: Medical Branch Mild Mild Disease Active 2011-03 Univers vitamin D vitamin D 03-14 [place] deficiency deficiency [place] Raynaud's Raynaud's Disease Active Uni vers syndrome syndrome 5-18 ity of 00:00: Medical Branch Rheumatoid Rheumatoid Disease Active Overview : Univers arthritis arthritis 5-18 Formattin i ty of 00:00: g of this 00 note Medical might be Branch different from the original. ICD10 Diagnosis Term [employer] Lathe [employer] Utility Chronic Chronic Disease Active Univers pain pain 5-18 ity of syndrome syndrome 00:00: Medical Branch Allergies, Adverse Reactions, Alerts Allergy Allergy Status Severity Reaction(s) Onset Inactive Treating Comm ents Source Name Type Date Date Clinician iodine DA Active [place] [facility]ES [facility] 5-11 Clear 00:00: [place] 00 [facility] iodine DA Active [place] HIVES [facility] 2-28 Clear 00:00: [place] 00 [facility] SHELLFIS DRUG Active Anaphylaxis Uni vers H INGREDI 1-14 ity of DERIVED 00:00: Medical Branch Shellfis Propensi Active Anaphylaxis U nivers h ty to 1-14 ity of Derived adverse 00:00: [place] reaction 00 Medical s Branch Iodinate Propensi Active Hives 2017- [facility]-13 [facility] Contrast adverse 00:00: Medical Media reaction [...] Medica l ng s Branch Products IODINE Drug Active Rash Univers AND Class 5-11 ity of IODIDE 00:00: [place] CONTAINI 00 Medical Branch PRODUCTS IODINE DA Active U OK W/ 2003-0 [facility] CONTRAST BETADINE 8-24 Clear PREP 00:00: [place] [facility] No Known DA Active U 2004-0 [facility] Drug 8-24 Clear Allergie 00:00: [facility] No Known DA Active U 2004-0 [facility] Other 8-24 Clear Allergie 00:00: [facility] SHRIMP DA Active U 2004-0 [facility] 8-24 Clear 00:00: [place] [facility] iodine DA Active U 2003-0 [facility] 2-10 Clear 00:00: [address] Family History Family Member Diagnosis Comments Start Date Stop Date Source Natural father Heart disease [facility] Natural mother Cancer [facility] Social History Social Habit Start Date Stop Date Quantity Comments Source History [facility] Alcohol Comment Medical C enter History SDNM [facility] Alcohol Std Medical Cent[facility] r Drinks History SDNM [facility] Alcohol Binge Medical [facility] ter Alcohol intake 2018-10-15 2018-10-[address] [facility] 00:[facility] 00:[facility]:00 non-drinker of Medical Ce nter alcohol (finding) History SDOH 2018-10-15 2018-10-[address] [facility] Alcohol Frequency 00:00:00 00:00:00 [facility] Tobacco use and 2014-09-01 2014-09-01 Smokeless tobacco Un iversity of exposure 00:00:00 00:00:00 non-user [facility] Sex Assigned At [address] [facility] Smoking Status Start Date Stop Date Source Never smoked tobacco [facility] Medications Ordered Filled Start Stop Current Ordering Indication Dosage Frequency Signature Comments Components Source Medication Medication Date Date Medication? Clinician (SIG) Name Name predniSONE Yes Univers 50 mg 4-12 ity of tablet 00:00: 00 Medical Branch predniSONE Yes Univers 50 mg 4-12 ity of tablet 00:00: [place] Medical Branch methotrexat Yes TAKE 5 Univ ers e 2.5 mg 4-07 TABLETS BY ity o f tablet 00:00: MOUTH 1 TIME Medical WEEKLY Branch methotrexat Yes TAKE 5 Univ ers e 2.5 mg 4-07 TABLETS BY ity o f tablet 00:00: MOUTH 1 TIME Medical WEEKLY Branch TRESIBA Yes [id number] 26U INJECT 26 U nivers FLEXTOUCH 4-06 UNITS ity of U-100 100 00:00: UNDER THE [place] as unit/mL (3 00 SKIN Medical mL) InPn DAILY. MAX Branc h DAILY DOSE OF 40 UNITS TRESIBA Yes [id number] 26U INJECT 26 U nivers FLEXTOUCH 4-06 UNITS ity of U-100 100 00:00: UNDER THE [place] as unit/mL (3 00 SKIN Medical mL) InPn DAILY. MAX Branc h DAILY DOSE OF 40 UNITS atorvastati Yes 40mg Take 1 Univ ers n 40 mg 1-20 tablet by ity of tablet 00:00: mouth at [place] bedtime. Medical Branch atorvastati Yes 40mg Take 1 Univ ers n 40 mg 1-20 tablet by ity of tablet 00:00: mouth at [place] 00 bedtime. Medical Branch gabapentin Yes [id number] 600mg Take 1 Univers 600 mg 1-07 tablet by ity of tablet 00:00: mouth 2 (two) Medical times Branch daily. gabapentin Yes [id number] 600mg Take 1 Univers 600 mg 1-07 tablet by ity of tablet 00:00: mouth 2 00 (two) Medical times Branch daily. ISOSORBIDE 2020-03 Yes [id number] 30mg TAKE 1 U nivers MONONITRATE 2-10 TABLET BY ity of 30 mg 24 hr 00:00: MOUTH [place] tablet 00 DAILY Medical Branch ISOSORBIDE 2020-03 Yes [id number] 30mg TAKE 1 U nivers MONONITRATE 2-10 TABLET BY ity of 30 mg 24 hr 00:00: MOUTH [place] tablet 00 DAILY Medical Branch insulin 2020-03 Yes [id number] INJECT 10 U nivers aspart 2-09 UNITS ity of U-100 00:00: SUBCUTAMDO [place] (NOVOLOG 00 US BEFORE Medica l FLEXPEN EACH MEAL Branch U-100 AND INSULIN) SLIDING 100 unit/mL SCALE. MAX (3 mL) DAILY DOSE injection OF 40 UNITS insulin 2020-03 Yes [id number] INJECT 10 U nivers aspart 2-09 UNITS ity of U-100 00:00: SUBCUTANEO [place] (NOVOLOG 00 US BEFORE Medica l FLEXPEN EACH MEAL Branch U-100 AND INSULIN) SLIDING 100 unit/mL SCALE. MAX (3 mL) DAILY DOSE injection OF 40 UNITS metoprolol 2020-03 Yes 12.5mg Take 0.5 U nivers tartrate 25 2-03 tablets by it y of mg tablet 00:00: mouth 2 [place] (two) Medical times Branch daily. metoprolol 2020-03 Yes 12.5mg Take 0.5 U nivers tartrate 25 2-03 tablets by it y of mg tablet 00:00: mouth 2 [place] 00 (two) Medical times Branch daily. Dextran 2020-03 Yes 1[drp] Place 1 Unive rs 70-Hypromel 0-29 Drop in ity o f lose 13:25: both eyes [place] (ARTIFICIAL 33 as needed. Me dical TEARS) [facility] Yes 20mg Take 20 mg Univers e 5 mg 0-29 by mouth ity of tablet 13:25: weekly. [address] Dextran 2020-03 Yes 1[drp] Place 1 Unive rs 70-Hypromel 0-29 Drop in ity o f lose 13:25: both eyes [place] (ARTIFICIAL 33 as needed. Me dical TEARS) [facility] methotrexat 2020-03 Yes 20mg Take 20 mg Univers e 5 mg 0-29 by mouth ity of tablet 13:25: weekly. [address] foLIC acid 2020-03 Yes 1mg Take 1 mg Un alex 1 mg tablet 0-29 by mouth ity of 13:15: daily. [place] 17 except on Medical date of Branch methotrexa te foLIC acid 2020-03 Yes 1mg Take 1 mg Un alex 1 mg tablet 0-29 by mouth ity of 13:15: daily. [place] 17 except on Medical date of Branch methotrexa te DULoxetine 2020-03 Yes [id number] 20mg Take 1 U nivers 20 mg 0-29 capsule by ity of capsule 00:00: mouth [place] 00 every Medical morning. Branch DULoxetine 2020-03 Yes [id number] 20mg Take 1 U nivers 20 mg 0-29 capsule by ity of capsule 00:00: mouth [place] 00 every Medical morning. Branch empaglifloz 2020-03 Yes [id number] 1{tbl} Take 1 Univers in-metformi 0-11 tablet by ity of n (SYNJARDY 00:00: mouth [place] XR) 00 daily. Medical 25-1,000 mg Branch TBph Insulin 2020-03 Yes [id number] Use as Univ ers [place], 0-11 directed 4 ity o f Disposable, 00:00: times [place] (PEN 00 daily. Medical NEEDLES) 31 E11.65 Branch gauge x 1/4" Ndle empaglifloz 2020-03 Yes [id number] 1{tbl} Take 1 Univers in-metformi 0-11 tablet by ity of n (SYNJARDY 00:00: mouth [place] XR) 00 daily. Medical 25-1,000 mg Branch TBph Insulin 2020-03 Yes [id number] Use as Univ ers [place], 0-11 directed 4 ity o f Disposable, [...] 24 times Medical daily. Branch losartan 50 Yes 50mg Take 50 mg Univers mg tablet 9-26 by mouth 2 ity of 17:16: (two) [place] 24 times Medical daily. Branch Blood-Gluco 2020-0 Yes [id number] Use as Univers se Sensor 8-04 directed ity of (DEXCOM G6 00:00: [place] SENSOR) 00 Medical Yolanda Branch Blood-Gluco 2020-0 Yes [id number] Use as Univers se 8-04 directed ity of Transmitter 00:00: [place] (DEXCOM G6 00 Medical TRANSMITTER Branch ) Yolanda Blood-Gluco 2020-0 Yes [id number] Use as Univers se 8-04 directed ity of Meter,Josué 00:00: [place] nuous 00 Medical (DEXCOM G6 Branch [employer]) Misc Blood-Gluco 0 Yes [id number] Use as Univers se Sensor 8-04 directed ity of (DEXCOM G6 00:00: [place] SENSOR) 00 Medical Yolanda Branch Blood-Gluco 2020-0 Yes [id number] Use as Univers se 8-04 directed ity of Transmitter 00:00: [place] (DEXCOM G6 00 Medical TRANSMITTER Branch ) Yolanda Blood-Gluco 0 Yes [id number] Use as Univers se 8-04 directed ity of Meter,Josué 00:00: [place] nuous 00 Medical (DEXCOM G6 Branch [employer]) Misc nitroglycer 2020-[id number] 1 Univers in 0.4 mg 1-01 tablet ity of sublingual 00:00: [place] the [place] tablet 00 tongue Medical every 5 Branch (five) minutes as needed for Chest pain. clopidogreL 2020-0 Yes [id number] 75mg Take 1 Univers (PLAVIX) 75 1-01 tablet by ity of mg tablet 00:00: mouth [place] 00 daily. Medical Branch aspirin 81 2020-0 Yes [id number] 81mg Take 1 Univers mg chewable 1-01 tablet by ity of tablet 00:00: mouth [place] 00 daily. Medical Branch nitroglycer 2020-[id number] 1 Univers in 0.4 mg 1-01 tablet ity of sublingual 00:00: [place] the [place] tablet 00 tongue Medical every 5 Branch (five) minutes as needed for Chest pain. clopidogreL 2020-0 Yes [id number] 75mg Take 1 Univers (PLAVIX) 75 1-01 tablet by ity of mg tablet 00:00: mouth [place] 00 daily. Medical Branch aspirin 81 Yes [id number] 81mg Take 1 Univers mg chewable 1-01 tablet by ity of tablet 00:00: mouth daily. [facility] Branch tofacitinib 2018-03 Yes [id number] 11mg Take 11 mg Univers (XELJANZ 2-18 by mouth ity of XR) 11 mg 00:00: daily. [place] [address] [facility] tofacitinib 2018-03 Yes [id number] 11mg Take 11 mg Univers (XELJANZ 2-18 by mouth ity of XR) 11 mg 00:00: daily. [address] insulin Yes 12U QD Inject 12 [facility] [...] Immunizations Ordered Filled Immunization Date Status Comments [facility] Immunization Name Name Influenza Virus 2021-01-08 Completed Universit y of Vaccine Quad IM, 00:00:00 [facility] dical Preserv and ABX Branch Free 6 MO-64 YRS Influenza Virus 2021-01-08 Completed Universit y of Vaccine Quad IM, 00:00:00 [facility] dical Preserv and ABX Branch Free 6 MO-64 YRS Influenza Virus 2019-11-12 Completed Universit y of Vaccine 00:00:00 [facility] Influenza Virus 2019-11-12 Completed Universit y of Vaccine 00:00:00 [facility] Zoster Vaccine 2019-03-25 Completed University of Roboinvest 00:00:00 [facility] Zoster Vaccine 2019-03-25 Completed University of Recombinant 00:00:00 [facility] Zoster Vaccine 2019-01-18 Completed University of Recombinant 00:00:00 [facility] Zoster Vaccine 2019-01-18 Completed University of Recombinant 00:00:00 [facility] Procedures Procedure Date / Time Performed Performing Clinician Rubia frederick [id number] 2021-06-24 00:00:00 CHAAB.01 [facility] [id number] 2021-06-24 00:00:00 CHAAB.01 [facility] [id number] 2021-06-24 00:00:00 CHAAB.01 [facility] [id number] 2021-06-24 00:00:00 CHAAB.01 [facility] [id number] 2021-06-24 00:00:00 CHAAB.01 [facility] [id number] 2021-06-24 00:00:00 CHAAB.01 [facility] [id number] 2021-06-23 00:00:00 RASSA [facility] [id number] 2021-06-23 00:00:00 RASSA [facility] [id number] 2021-06-23 00:00:00 RASSA [facility] [id number] 2021-06-23 00:00:00 RASSA [facility] [id number] 2021-06-23 00:00:00 RASSA [facility] [id number] 2021-06-23 00:00:00 RASSA [facility] Plan of Care Planned Activity Planned Date Details Comments Source Future Scheduled 2021-11-[address] [facility] Test 00:00:00 (Season Ended) [code = Medic al Center INFLUENZA VACCINE (Season Ended)] Future [...] [facility] 00:[facility]00 measurement (procedure) [facility] [code = 33622765] Future Scheduled 2019-01-[address] [facility] Test 00:00:00 measurement (procedure) [facility] [code = 65560421] Future Scheduled 2012 SHINGLES VACCINES ([address] [facility] Test 00:00:00 2) [code = SHINGLES [facility] VACCINES (1 of 2)] Future Scheduled 2012 SHINGLES VACCINES ([address] [facility] Test 00:00:00 2) [code = SHINGLES [facility] VACCINES (1 of 2)] Future Scheduled 2007 Lipid panel (procedure) [facility] Test 00:00:00 [code = 50777076] Medical Ce nter Future Scheduled 2007 Lipid panel (procedure) [facility] Test 00:00:00 [code = 92966021] Medical Ce nter Future Scheduled 1983 Screening for malignant [facility] Test 00:00:00 neoplasm of cervix Medical C enter (procedure) [code = 994709300] Future Scheduled 1983 Screening for malignant [facility] Test 00:00:00 neoplasm of cervix Medical C enter (procedure) [code = 552300865] Future Scheduled 1981 DTAP/TDAP/TD VACCINES CH I [...] 00:00:00 examination Medical Center (regime/therapy) [code = 696503318] Future Scheduled 1972 Urine screening for [facility] Test 00:00:00 protein (procedure) Medical Center [code = 089345601] Future Scheduled 1972 DIABETIC EYE EXAM [code [facility] Test 00:00:00 = DIABETIC EYE EXAM] Medical Center Future Scheduled [address] [facility] Test 00:00:00 examination Medical Center (regime/therapy) [code = 317219962] Future Scheduled 1972 Urine screening for [facility] Test 00:00:00 protein (procedure) Medical Center [code = 107807478] Future Scheduled [address] [...] breast Medical C enter (procedure) [code = 629164751] Future Scheduled 1962 Screening for malignant [facility] Test 00:00:00 neoplasm of colon Medical Ce nter (procedure) [code = 999101783] Future Scheduled 1962 Screening for malignant [facility] Test 00:00:00 neoplasm of breast Medical C enter (procedure) [code = 389509563] Future Scheduled 1962 CT Colonography (combo) [facility] Test 00:00:00 [code = CT Colonography [facility] (combo)] Future Scheduled 1962 Screening for malignant [facility] Test 00:00:00 neoplasm of colon Medical Ce nter (procedure) [code = 972574531] Future Scheduled 1962 Screening for malignant [facility] Test 00:00:00 neoplasm of colon Medical Ce nter (procedure) [code = 579515303] Future Scheduled 1962 Screening for malignant [facility] Test 00:00:00 neoplasm of colon Medical Ce nter (procedure) [code = 740453396] Future Scheduled 1962 Screening for malignant [facility] Test 00:00:00 neoplasm of colon Medical Ce nter (procedure) [code = 508088282] Future Scheduled 1960 Sigmoidoscopy [code = [facility] S[facility]oscopy] Medical Cente r Encounters Start End Encounter Admission Attending Care Care Encounter Source Date/Time Date/Time Type Type Clinicians Facility Department ID 2021-01-12 Emergency [facility] [id number] Univers 01:13:37 ity [facility] 2021-01-09 Emergency [facility] [id number] Univers 14:10:03 ity [facility] 2021-11-01 2021-11-01 Telephone [facility] [id number] Univers 00:00:00 00:00:00 AOBiome HEALTH [id number] it y of [place] [id number] [place] as HECTOR?BLEA [id number] [address] MEDICAL OFFICE [facility] 2021-09-24 2021-09-24 Telephone [facility] [id number] Univers 00:00:00 00:00:00 Trey HEALTH [id number] it y of [place] [id number] [place] as HECTOR?BLEA [id number] [address] OFFICE [facility] 2021-07-21 2021-07-23 Inpatient Chrisin, [facility] [id number] [facility] [facility] 05:18:00 16:56:[address] 2021-07-13 2021-07-13 Outpatient R DM [facility] [id number] Univers 10:00:00 10:00:00 TOUKA [facility] 2021-07-13 2021-07-13 Outpatient R DM [facility] [id number] Univers 10:00:00 10:00:00 TOUKA [facility] 2021-07-06 2021-07-06 [facility] [id number] Univers 00:00:00 00:00:00 Rocio A HEALTH [id number] i ty of [place] [id number] [place] as HECTOR?BLEA [id number] [address] MEDICAL OFFICE [facility] 2021-07-05 2021-07-05 Outpatient R CORDELL MANLEY [facility] [id number] Univers 13:30:00 13:30:00 ity [facility] 2021-07-02 2021-07-02 [facility] [id number] Univers 00:00:00 00:00:00 Wondiful A HEALTH [id number] ity of [place] [id number] [place] as HECTOR?BLEA [id number] [address] MEDICAL OFFICE [facility] 2021-07-02 2021-07-02 Orders Doctor ASHLEY [id number] Univers 00:00:00 00:00:00 Only Unassigned, PASCALE [id number] ity of [place] [facility] [id number] [place] as [id number] [address] 2021-06-23 2021-06-30 Inpatient EL Azucena, JAMESCL INTE.02 [id number] [facility] 14:22:00 12:30:00 Alejandra Mendoza [facility] 2021-06-29 2021-06-29 Outpatient Cristo PARKER [facility] [id number] Univers 14:00:00 14:00:00 ELISE randall [facility] 2021-06-21 2021-06-21 Outpatient Cristo YU [facility] [id number] Univers 14:30:00 14:30:00 TREY ity [facility] 2021-06-16 2021-06-16 [facility] [id number] Univers 00:00:00 00:00:00 Trey PADRON 350.1.13.10 i ty of [place] 4.2.7.2.686 [facility] [phone] Ne dical [facility] 220 [facility] 2021-06-11 2021-06-11 Outpatient R ИВАН [facility] [id number] Univers 09:30:00 09:58:55 SHAHNAZ [facility] 2021-06-11 2021-06-11 Office [facility] 1.2.840.114 [id number] Univers 09:30:00 09:58:55 Visit Shahnaz [facility] 350.1.13.10 i ty of [place] 4.2.7.2.686 [facility] [phone] [facility] [address] [place] 2021-06-11 2021-06-11 Orders Doctor ASHLEY 1.2.840.114 [id number] Univers 00:00:00 00:00:00 Only Unassigned, PASCALE 350.1.13.10 ity of [place] [facility] 4.2.7.2.686 Vickey as [phone] [facility] [address] [place] 2021-05-24 2021-05-24 Orders Doctor ASHLEY 1.2.840.114 [id number] Univers 00:00:00 00:00:00 Only Unassigned, PASCALE 350.1.13.10 ity of [place] [facility] 4.2.7.2.686 Vickey as [phone] [facility] [address] [place] 2021-05-21 2021-05-21 Outpatient R FELISA [facility] [id number] Univers 11:00:00 10:56:49 ROCIO [facility] 2021-05-10 2021-05-10 Inpatient GENE Jason OUTD [id number] [facility] 13:09:00 13:09:00 Dany 14 [facility] 2021-05-04 2021-05-04 Outpatient R ZENAIDA [facility] [id number] Univers 14:15:00 14:15:00 WONDIFUL ity o f [facility] 2021-04-27 2021-04-27 Telephone [facility] 1.2.840.114 [id number] Univers 00:00:00 00:00:00 Wondiful A HEALTH 350.1.13.10 ity of [place] 4.2.7.2.686 Vickey as HECTOR?BLEA [phone] Ne dayanara QUINTERO [address] [place] [address] MEDICAL OFFICE BUILDING 2021-04-26 2021-04-26 Orders Doctor ASHLEY 1.2.840.114 [id number] Univers 00:00:00 00:00:00 Only Unassigned, PASCALE 350.1.13.10 ity of [place] [facility] 4.2.7.2.686 Vickey as [phone] [address] 2021-04-20 2021-04-20 Outpatient Cristo [facility] [id number] Univers 14:30:00 14:30:00 [facility] 2021-04-20 2021-04-20 Outpatient Cristo [facility] [id number] Univers 14:30:00 14:30:00 [facility] 2021-04-16 2021-04-16 Orders Doctor ASHLEY 1.2.840.114 [id number] Univers 00:00:00 00:00:00 Only Unassigned, PASCALE 350.1.13.10 ity of [place] [facility] 4.2.7.2.686 Vickey as [phone] [address] 2021-04-14 2021-04-14 Outpatient R ИВАН [facility] [id number] Univers 10:30:00 10:30:00 SHAHNAZ [facility] 2021-03-30 2021-03-30 Arthur Reed [facility] 1.2.840.114 [id number] Univers 00:00:00 00:00:00 Rachel LOYATON 350.1.13.10 ity of [place] [phone] Ne dical NAL 059 [facility] 2021-03-26 2021-03-26 [facility] 1.2.840.114 [id number] Univers 00:00:00 00:00:00 Rachel Huffman [place] 350.1.13.10 ity [facility] 4.2.7.2.[place] [phone] Ne dical NAL 059 [facility] 2021-03-23 2021-03-23 Outpatient [facility] [id number] Univers 10:22:10 23:59:00 [facility] 2021-03-23 2021-03-23 [facility] 1.2.840.114 [id number] Univers 10:22:10 23:59:00 Encounter Any S HEALTH 350.1.13.10 ity of [place] 4.2.7.2.686 Vickey as HECTOR?BLEA [phone] [facility] LEON 809 [facility] OFFICE [facility] 2021-03-23 2021-03-23 Office [facility] 1.2.840.114 [id number] Univers 10:30:00 10:45:00 Visit Any S HEALTH 350.1.13.10 it y of [place] 4.2.7.2.686 Vickey as HECTOR?BLEA [phone] Ne dayanara QUINTERO 198 [facility] OFFICE [facility] 2021-03-23 2021-03-23 Outpatient Cristo TOWNSEND [facility] [id number] Univers 10:30:00 10:30:00 ANY [facility] 2021-03-23 2021-03-23 Telephone [facility] 1.2.840.114 [id number] Univers 00:00:00 00:00:00 Wondiful A HEALTH 350.1.13.[address] [facility] 4.2.7.2.686 Vickey as HECTOR?BLEA [phone] Ne dayanara QUINTERO 044 [facility] OFFICE [facility] 2021-03-19 2021-03-19 Referin MarinNORTHERN NAVA[facility] 1.2.840.114 [id number] Univers 00:00:00 00:00:00 Kitty HEALTH 350.1.13.10 it y of [place] 4.2.7.2.686 Vickey as HECTOR?BLEA [phone] Ne dayanara QUINTERO 220 [facility] OFFICE [facility] 2021-02-22 2021-02-22 Telephone [facility] 1.2.840.114 [id number] Univers 00:00:00 00:00:00 Wondiful A HEALTH 350.1.13.10 ity of [place] 4.2.7.2.686 Vickey as HECTOR?BLEA [phone] Ne dayanara QUINTERO 044 [facility] OFFICE [facility] 2021-02-17 2021-02-17 Refill [facility] 1.2.840.114 [id number] Univers 00:00:00 00:00:00 Rachel PADRON 350.1.13.10 ity of [place] [phone] [facility] NAL 059 [facility] 2021-02-13 2021-02-13 Refill [facility]NOR[facility] 1.2.840.114 [id number] Univers 00:00:00 00:00:00 Trey PADRON 350.1.13.10 i ty of [place] 4.2.7.2.[place] [phone] [facility] ОЛЬГА 220 [facility] 2021-02-08 2021-02-08 [facility] 1.2.840.114 [id number] Univers 00:00:00 00:00:00 Rachel PADRON 350.1.13.10 ity of [place].7.2.[place] [phone] Ne dicpolina NAL 059 [facility] 2021-01-25 2021-01-25 Outpatient R ZENAIDA [facility] [id number] Univers 00:00:00 00:00:00 WONDIFUL ity o f [facility] 2021-01-25 2021-01-25 Outpatient R ZENAIDA [facility] [id number] Univers 00:00:00 00:00:00 WONDIFUL ity o f [facility] 2021-01-12 2021-01-12 Outpatient R DAVIDDESTINEY [facility] [id number] Univers 08:15:00 08:15:00 TOUKA ity [facility] 2021-01-08 2021-01-08 Outpatient R ZENAIDA [facility] [id number] Univers 13:30:00 14:58:08 WONDIFUL ity o f [facility] 2021-01-08 2021-01-08 Office [facility] 1.2.840.114 [id number] Univers 12:14:31 14:58:08 Visit Wondiful A HEALTH 350.1.13.10 ity of [place] 4.2.7.2.686 Vickey as HECTOR?BLEA [phone] [facility] CARTER [address] [place] MEDICAL OFFICE [facility] 2021-01-08 2021-01-08 Outpatient R ZENAIDA [facility] [id number] Univers 13:30:00 13:30:00 WONDIFUL ity o f [facility] 2020-12-23 2020-12-23 Outpatient R BRIANNA [facility] [id number] Univers 08:15:00 08:15:00 SENDIL [facility] 2020-12-21 2020-12-21 Tile Layer Helper Lab, [facility] 1.2.840.1 14 [id number] Univers 16:23:32 16:38:32 Visit Gigi [employer] 350.1.13.10 ity of [place] 4.2.7.2.686 Vickey as Hector?Blea [phone] Ne dayanara quintero [address] [place] Medical Office [facility] 2020-12-21 2020-12-21 Office [facility] 1.2.840.114 [id number] Univers 15:39:24 16:09:24 Visit T[facility] 350.1.13.10 it y of [place] 4.2.7.2.686 Vickey as Hector?Blea [phone] Ne dayanara carter [address] [place] Medical Office [facility] 2020-12-21 2020-12-21 Outpatient R [facility] [id number] Univers 15:30:00 15:30:00 TREY ity [facility] 2020-12-21 2020-12-21 Outpatient R WREOSHITAL [facility] [id number] Univers 12:00:00 12:00:00 TREY randall [facility] 2020-12-15 2020-12-15 Outpatient R ANH [facility] [id number] Univers 09:20:00 09:20:00 KATIA itluan [facility] 2020-12-10 2020-12-10 Ancillary Kalpana Zheng [facility] 1.2.840. 114 [id number] Univers 08:47:26 10:21:51 Visit Katia Kamara 350.1.13.10 ity of [place]2.7.2.[place] ess[place] [phone] [facility] [address] 2020-12-10 2020-12-10 Outpatient R ANH [facility] [id number] Univers 09:00:00 09:00:00 KATIA [facility] 2020-12-08 2020-12-08 Transition Clint Cash 1.2.840.114 [id number] Univers 00:00:00 00:00:00 of Care Della Patricio 350.1.13.10 i ty of [place] 4.2.7.2.686 [place] [phone] [facility] [address] 2020-12-04 2020-12-06 Hospital Leo Dickinson 1.2.840.1 14 [id number] Univers 14:09:00 15:50:00 Encounter Renny Reardon 350.1.13. 10 ity of [facility] 4.2.7.2.686 [place] [id number] [facility] [address] 2020-12-04 2020-12-04 Nurse Nurse, [facility] 1.2.840.114 [id number] Univers 13:21:56 13:41:56 Visit Cairo Amada [facility] 350.1.13.10 ity of [place] 4.2.7.2.686 Vickey as Hector?Blea [phone] Ne dical kney [address] Medical Office Building 2020-12-04 2020-12-04 Outpatient [facility] [id number] Univers 13:30:00 13:30:00 AMADA ity [facility] 2020-12-03 2020-12-03 Office [facility] 1.2.840.114 [id number] Univers 09:41:40 10:25:13 Visit Rachel Padron 350.1.13.10 ity of [place] [phone] Ne dicsd nal 9 [facility] 2020-12-03 2020-12-03 Out[facility] [id number] Univers 10:00:00 10:00:00 SENDIL [facility] 2020-10-29 2020-10-29 Outpatient R [facility] [id number] Univers 16:40:00 16:40:00 AMADA ity [facility] 2020-10-07 2020-10-07 Telephone [facility] 1.2.830.260 [id number] Univers 00:00:00 00:00:00 Rachel Padron 350.1.13.10 ity of [place] [phone] [facility] nal 9 [facility] 2020-10-07 2020-10-07 Telephone [facility] 1.2.822.151 [id number] Univers 00:00:00 00:00:00 Rachel Padron 350.1.13.10 ity of [place].2.[place] [phone] Ne dical nal 059 [facility] 2020-10-02 2020-10-02 Tile Layer Helper Elliot [facility] Main [facility] 1.2.8 40.114 [id number] Univers 09:03:52 09:18:52 Visit Rachel Reed 350.1.13. 10 ity of [place]2.7.2.[place] [phone] Ne dical nal 353 [facility] 2020-10-02 2020-10-02 Outpatient R BRIANNA [facility] [id number] Univers 08:00:00 08:00:00 SENDIL ity [facility] 2020-09-22 2020-09-22 Outpatient R BRIANNA [facility] [id number] Univers 09:00:00 09:00:00 SENDIL ity [facility] 2020-09-14 2020-09-14 Telephone Brianna [facility] 1.2.064.710 [id number] Univers 00:00:00 00:00:00 Sendil Armida Padron 350.1.13.10 ity of [place].7.2.[place] [phone] [facility] 059 [facility] 2020-09-14 2020-09-14 Telephone Gigi [facility] 1.2.840.114 [id number] Univers 00:00:00 00:00:00 Trey Padron 350.1.13.10 i ty of [place]2.7.2.[place] [phone] Ne dical [facility] 220 [facility] 2020-09-01 2020-09-01 Nurse Day Horn 1.2.840.114 [id number] Univers 00:00:00 00:00:00 Triage PASCALE 350.1.13.10 it y of [facility] 4.2.7.2.686 Vickey as [phone] [address] 2020-08-31 2020-08-31 Outpatient R GIGI [facility] [id number] Univers 11:30:00 11:30:00 TREY itluan [facility] 2020-08-31 2020-08-31 Office [facility] 1.2.840.114 [id number] [facility] 10:23:44 11:20:14 Visit Trey Padron 350.1.13.10 i ty of [place] 4.2.7.2.[place] [phone] [facility] 220 [facility] 2020-08-25 2020-08-25 Office Brianna [facility] 1.2.840.114 [id number] Univers 10:33:27 11:05:58 Visit Sendil Armida Padron 350.1.13.10 ity of [place].7.2.[place] [phone] [address] 2020-08-25 2020-08-25 Outpatient R BRIANNA [facility] [id number] Univers 11:00:00 11:00:00 SENDIL ity [facility] 2020-08-21 2020-08-21 Orders Doctor ASHLEY 1.2.840.114 [id number] Univers 00:00:00 00:00:00 Only Unassigned, PASCALE 350.1.13.10 [facility] 4.2.7.2.686 Vickey as [phone] [facility] [address] [place] 2020-08-12 2020-08-12 Outpatient R ZEINA JO [facility] [id number] Univers 11:30:00 11:30:00 DEYSI [facility]y [facility] 2020-07-28 2020-07-28 Refill Doctor ASHLEY 1.2.840.114 [id number] Univers 00:00:00 00:00:00 Unassigned, PASCALE 350.1.13.10 [facility] 4.2.7.2.686 Vickey as [phone] [facility] [address] [place] 2020-06-25 2020-06-25 Office Brianna ALAYDEN 1.2.840.114 [id number] Univers 13:33:34 14:36:23 Visit Sendhilary Padron 350.1.13.10 ity of [place].7.2.[place] [phone] [address] 2020-06-25 2020-06-25 Outpatient R BRIANNA [facility] [id number] Univers 14:00:00 14:00:00 SENDIL ity [facility] 2020-06-08 2020-06-08 Outpatient R BRIANNA [facility] [id number] Univers 10:00:00 10:00:00 SENDIL ity [facility] 2020-06-01 2020-06-01 Refill [facility] 1.2.840.114 [id number] Univers 00:00:00 00:00:00 Sendil YazminGhassanNikoGhassan Padron 350.1.13.10 ity of [place] 4.2.7.2.686 [place] [phone] Ne dical nal [address] 2020-05-23 2020-05-23 Patient Efren [facility] 1.2.840.114 [id number] Univers 00:00:00 00:00:00 Outreach Flako PRIMARY 350.1.13.10 i ty of [facility] 4.2.7.2.686 [place] [phone] Ne dical [address] [place] 2020-05-18 2020-05-18 Outpatient R DM [facility] [id number] Univers 10:00:00 10:00:00 TOPRAVEENA randall [facility] 2020-05-11 2020-05-11 Office Dm [facility] 1.2.840.114 [id number] Univers 09:25:48 11:23:17 Visit Topraveena MULTISPEC 350.1.13.10 ity of [facility] 4.2.7.2.686 [place] [phone] [facility] [place] [address] [facility] 2020-05-11 2020-05-11 Outpatient R [facility] [id number] Univers 09:30:00 09:30:00 ity of [facility] 2020-05-11 2020-05-11 Orders Doctor RAMIREZ 1.2.840.114 [id number] Univers 00:00:00 00:00:00 Only Unassigned, PASCALE 350.1.13.10 ity of [place] [facility] 4.2.7.2.686 Vickey as [phone] [facility] [address] 2020-04-27 2020-04-27 [facility] [id number] Univers 10:30:00 10:30:00 SENDIL ity [facility] 2020-04-22 2020-04-22 Orders Doctor RAMIREZ 1.2.840.114 [id number] Univers 00:00:00 00:00:00 Only Unassigned, PASCALE 350.1.13.10 ity of [place] [facility] 4.2.7.2.686 Vickey as [phone] [facility] [address] 2020-03-26 2020-03-26 Emergency Bustos, [facility] 1.2.840.114 [id number] 11:51:00 18:13:00 Faith Padron 350.1.13.10 [place] 4.2.7.2.686 [place] [phone] [facility] 2020-03-26 2020-03-26 Emergency X BUSTOS, [facility] ERT [id number] Univers 11:51:00 18:13:00 FAITH ity [facility] 2020-03-26 2020-03-26 Emergency Bustos, [facility] 1.2.840.114 [id number] Univers 11:51:00 18:13:00 Faith Padron 350.1.13.10 i ty of [place].7.2.[place] [phone] [facility] [address] [place] 2020-03-26 2020-03-26 Telephone [facility] 1.2.326.985 [id number] 00:00:00 00:00:00 Rachel Padron 350.1.13.10 [place] 4.2.7.2.686 Professio [phone] [address] 2020-03-26 2020-03-26 Telephone [facility] 1.2.010.976 [id number] Univers 00:00:00 00:00:00 Sendhilary Padron 350.1.13.10 ity of [place].2.[place] [phone] Ne dical [address] 2020-03-19 2020-03-19 Outpatient R ASHLEY LBUE [facility] [id number] Univers 10:30:00 10:30:00 ity [facility] 2020-03-16 2020-03-16 Office [facility] 1.2.840.114 [id number] Univers 08:45:41 09:51:05 Visit Sendhilary Padron 350.1.13.10 ity of [place] 4[place]2.7.2.[place] [phone] Ne dical [address] 2020-03-16 2020-03-16 Office Brianna [facility] 1.2.840.114 [id number] 08:45:41 09:51:05 Visit Sendhilary Padron 350.1.13.10 [place] 4.2.7.2.686 Professio [phone] [address] 2020-03-16 2020-03-16 Outpatient R BRIANNA [facility] [id number] Univers 09:00:00 09:00:00 SENDIL ity of [facility] 2020-03-16 2020-03-16 Transition Clint Cash 1.2.840.114 [id number] Univers 00:00:00 00:00:00 of Care Della Patricio 350.1.13.10 i ty of [place].2.[place] [id number] [facility] [address] 2020-03-16 2020-03-16 Orders Doctor ASHLEY 1.2.840.114 [id number] Univers 00:00:00 00:00:00 Only Unassigned, PASCALE 350.1.13.10 ity of [place] [facility] 4.2.7.2.686 Vickey as [phone] [facility] [address] 2020-03-16 2020-03-16 Orders Doctor ASHLEY 1.2.840.114 [id number] 00:00:00 00:00:00 Only Unassigned, PASCALE 350.1.13.10 [place] [facility] [id number] 009 2020-03-12 2020-03-13 Hospital Marah Prescott 1.2.84 0.114 [id number] Univers 19:23:00 18:35:00 Encounter Juana Zamoray 350.1.13.10 ity of Hospital 4.2.7.2.686 Vickey as [phone] [facility] [address] 2020-03-12 2020-03-12 Hospital Radiology [facility] 1.2.840.114 [id number] Univers 15:49:15 19:22:00 Encounter Marcin 350.1.13.10 ity of [place] 4.2.7.2.686 [facility] [phone] [facility] [address] [place] 2020-03-12 2020-03-12 Outpatient R RADIOLOGY [facility] [id number] Univers 16:00:00 16:00:00 ity of [facility] 2020-03-09 2020-03-09 Office Carmelina Chaidez [facility] 1.2.840.114 [id number] Univers 08:27:34 09:11:09 Visit Joana Dean MULTISPEC 350.1.13. 10 ity of [place] IALTY 4.2.7.2.68 6 [facility] [phone] [address] DIABETES CLINIC 2020-03-09 2020-03-09 Outpatient R [facility] [id number] Univers 08:45:00 08:45:00 ity of [facility] 2020-03-09 2020-03-09 Orders Doctor ASHLEY 1.2.840.114 [id number] Univers 00:00:00 00:00:00 Only Unassigned, PASCALE 350.1.13.10 ity of [place] [facility] 4.2.7.2.686 Vickey [id number] [facility] [address] [place] 2020-03-03 2020-03-03 Office Иван [facility] 1.2.840.114 [id number] Univers 09:55:25 11:39:09 Visit Shahnaz Frederick MULTISPEC 350.1.13.10 ity of IALTY 4.2.7.2.686 [facility] [phone] [address] DIABETES CLINIC 2020-03-03 2020-03-03 Outpatient R ИВАН [facility] [id number] Univers 10:00:00 10:00:00 SHAHNAZ itluan of [facility] 2020-01-16 2020-01-16 Outpatient R KRISTIAN [facility] [id number] Univers 14:30:00 14:30:00 ANY itluan of [facility] 2019-12-25 2019-12-25 Outpatient R ВИАН [facility] [id number] Univers 09:00:00 09:00:00 SHAHNAZ [facility] 2019-11-25 2019-11-25 Outpatient R RUY [facility] [id number] Univers 11:00:00 11:00:00 KEVEN [facility] 2019-10-24 2019-10-24 Out[facility] [id number] Univers 09:45:00 09:45:00 SHAHNAZ [facility] 2019-09-23 2019-09-23 Refill [facility] 1.2.840.114 [id number] Univers 00:00:00 00:00:00 Gee Arzola MULTISPEC 350.1.13.10 ity of [place].2.[place] C[place] [id number] [facility] AND CHRIS [address] [place] [facility] 2019-08-20 2019-08-20 Outpatient [facility] [id number] Univers 09:40:00 09:40:00 GEE [facility] 2019-08-15 2019-08-15 Telephone [facility] 1.2.840.114 [id number] Univers 00:00:00 00:00:00 Gee Arzola PRIMARY 350.1.13.10 it[place] of [place].2.[place] [phone] Ne dical [address] [place] 2019-05-21 2019-05-21 Tile Layer Helper Pcp-Lab [facility] 1.2.840.114 [id number] Univers 09:36:08 10:22:44 Visit Gee Gasca PRIMARY 350.1.13.10 ity of [place] 4[place]2.7.2.686 [place] [id number] Ne dical [address] [place] 2019-05-21 2019-05-21 Office Campos [facility] 1.2.840.114 [id number] Univers 09:05:30 09:34:34 Visit Gee Arzola PRIMARY 350.1.13.10 ity of [place] 4.2.7.2.[place] [phone] Ne dical [address] 2019-05-21 2019-05-21 Outpatient R CAMPOS [facility] [id number] Univers 09:20:00 09:20:00 GEE itluan of [facility] 2019-05-13 2019-05-13 Refill Campos [facility] [id number] Univers 00:00:00 00:00:00 Gee PIERCE 350.1.13.10 it[place] [id number] Ne dical 086 Branch 2018-09-10 2018-09-10 Patient Doctor ASHLEY [id number] Univers 00:00:00 00:00:00 Secure Msg Unassigned, PASCALE 350.1.13.10 ity of [facility] 4.2.7.2.686 [place] as [phone] [facility] 044 Branch Orders Doctor ASHLEY [id number] Univers 00:00:00 00:00:00 Only Unassigned, PASCALE 350.1.13.10 ity of [facility] 4.2.7.2.686 [place] as [phone] [facility] 009 Branch Results Test Description Test Time Test Comments Results Result Comments Source GLUCOSE BEDSIDE 2021-07-23 20:43:00 Test Item Value Reference Range Interpretation Comme nts GLUCOSE BEDSIDE (test code = 238 MG/DL 70-110 H Performed by certified 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 [facility]) [facility] GLUCOSE [id number] 11:42:00 Test Item Value Reference Range Interpretation Comments GLUCOSE BEDSIDE (test 240 MG/DL 70-110 H [facility] med by certified code = GLUBED) 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 [facility] BASIC METABOLIC [id number] 11:01:00 Test Item Value Reference Range Interpretation [...] code = 7.9 mg/dL 8.0-10.5 L [place]) [id number] 11:01:00 Test Item Value Reference Range Interpretation Comments PHOSPHOROUS (test code = PHOS) 2.4 MG/DL 2.5-4.9 L [id number] 11:01:00 Test Item Value Reference Range Interpretation Comments MAGNESIUM (test code = MAG) 1.89 mg/dL 1.80-2.40 CALCIUM [id number] 11:01:00 Test Item Value Reference Range Interpretation Comments CALCIUM IONIZED (test code = RYLEE) 1.15 MMOL/L 1.12-1.32 N GLUCOSE [id number] 08:02:00 Test Item Value Reference Range Interpretation Comments GLUCOSE BEDSIDE (test 183 MG/DL 70-110 H Perfor med by certified code = GLUBED) 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 [facility] CBC W/AUTO [id number] 05:11:00 Test Item Value Reference Range Interpretation [...] REQUIRED (test code NO = MDIFF) GLUCOSE [id number] 20:13:00 Test Item Value Reference Range Interpretation Comments GLUCOSE BEDSIDE (test 251 MG/DL 70-110 H Perfor med by certified code = GLUBED) 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 [facility] CBC W/AUTO [id number] 15:36:00 Test Item Value Reference Range Interpretation [...] 0.00 x10 3/uL 0.0-0.1 N NRBC#) GLUCOSE [id number] 11:15:00 Test Item Value Reference Range Interpretation Comments GLUCOSE BEDSIDE (test 148 MG/DL 70-110 H Perfor med by certified code = GLUBED) 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 [facility] GLUCOSE [id number] 06:11:00 Test Item Value Reference Range Interpretation Comments GLUCOSE BEDSIDE (test 106 MG/DL 70-110 N Perfor med by certified code = GLUBED) 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 [facility] BASIC METABOLIC [id number] 05:29:00 Test Item Value Reference Range Interpretation [...] code = 8.6 mg/dL 8.0-10.5 N CA) [id number] 05:29:00 Test Item Value Reference Range Interpretation Comments MAGNESIUM (test code = MAG) 2.54 mg/dL 1.80-2.40 H GLUCOSE [id number] 05:19:00 Test Item Value Reference Range Interpretation Comments GLUCOSE BEDSIDE (test 118 MG/DL 70-110 H Perfor med by certified code = GLUBED) 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 [facility] CBC W/AUTO [id number] 05:11:00 Test Item Value Reference Range Interpretation [...] REQUIRED (test code NO = MDIFF) GLUCOSE [id number] 04:07:00 Test Item Value Reference Range Interpretation Comments GLUCOSE BEDSIDE (test 170 MG/DL 70-110 H Perfor med by certified code = GLUBED) 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 [facility] GLUCOSE [id number] 03:11:00 Test Item Value Reference Range Interpretation Comments GLUCOSE BEDSIDE (test 219 MG/DL 70-110 H Perfor med by certified code = GLUBED) 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 [facility] GLUCOSE [id number] 02:08:00 Test Item Value Reference Range Interpretation Comments GLUCOSE BEDSIDE (test 256 MG/DL 70-110 H Perfor med by certified code = GLUBED) 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 [facility] GLUCOSE [id number] 01:12:00 Test Item Value Reference Range Interpretation Comments GLUCOSE BEDSIDE (test 307 MG/DL 70-110 H Perfor med by certified code = GLUBED) 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 [facility] GLUCOSE [id number] 00:14:00 Test Item Value Reference Range Interpretation Comments GLUCOSE BEDSIDE (test 333 MG/DL 70-110 H Perfor med by certified code = GLUBED) 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 [facility] GLUCOSE [id number] 23:07:00 Test Item Value Reference Range Interpretation Comments GLUCOSE BEDSIDE (test 328 MG/DL 70-110 H Perfor med by certified code = GLUBED) 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 [facility] GLUCOSE [id number] 21:15:00 Test Item Value Reference Range Interpretation Comments GLUCOSE BEDSIDE (test 402 MG/DL 70-110 H Perfor med by certified code = GLUBED) 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 [facility] GLUCOSE [id number] 20:33:00 Test Item Value Reference Range Interpretation Comments GLUCOSE BEDSIDE (test 417 MG/DL 70-110 H Perfor med by certified code = GLUBED) 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 [facility] CBC W/AUTO [id number] 19:48:00 Test Item Value Reference Range Interpretation [...] 0.00 x10 3/uL 0.0-0.1 N NRBC#) GLUCOSE [id number] 19:23:00 Test Item Value Reference Range Interpretation Comments GLUCOSE BEDSIDE (test 427 MG/DL 70-110 H Perfor med by certified code = GLUBED) 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 [facility] BASIC METABOLIC [id number] 18:50:00 Test Item Value Reference Range Interpretation [...] code = 7.8 mg/dL 8.0-10.5 L CA) [id number] 18:50:00 Test Item Value Reference Range Interpretation Comments MAGNESIUM (test code = MAG) 1.79 mg/dL 1.80-2.40 L CBC W/AUTO [id number] 18:21:00 Test Item Value Reference Range Interpretation [...] REQUIRED (test code NO = MDIFF) GLUCOSE [id number] 16:11:00 Test Item Value Reference Range Interpretation Comments GLUCOSE BEDSIDE (test 363 MG/DL 70-110 H Perfor med by certified code = GLUBED) 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 [facility] [id number] 15:33:00 Test Item Value Reference Range Interpretation Comments ACT-ISTAT (test code 255 SEC 74-137 H Perform ed by certified = ACTI) 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 [facility] GLUCOSE [id number] 14:11:00 Test Item Value Reference Range Interpretation Comments GLUCOSE BEDSIDE (test 433 MG/DL 70-110 H Perfor med by certified code = GLUBED) 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 [facility] GLUCOSE [id number] 14:09:00 Test Item Value Reference Range Interpretation Comments GLUCOSE BEDSIDE (test 464 MG/DL 70-110 H Perfor med by certified code = GLUBED) 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 [facility] - DUP LE ART [id number] 00:00:00 [facility] 1960 Sex: F Name: MARINA MARTINEZ [facility] : 1960 Age/S: 61 / F [address] [place] [address] Unit #: [id number] Loc: [place] [address] Phys: Kevin Meek MD Acct: [id number] Dis Date: Status:ADM IN PHONE #: [phone] Exam Date: 07/21/20211939 FAX #: [phone] Reason: HEMATOMA EXAMS: CPT CODE: [id number] DUP LE ART UNI/LTD 89220 PROCEDURE INFORMATION: Exam: US Duplex Left Lower Extremity Arteries Or Arterial Bypass Grafts Exam date and time: 07/21/2021 7:17 PM Age: 61 years old Clinical indication: Other: Lt groin bruising and swelling S/P heart cath; Additional info: Hematoma TECHNIQUE: Imaging protocol: Left Real- time duplex scan of the arteries or arterial [...] CC: Kevin Meek MD; Dany Mcdonald MD Technologist: Saniya Barrett RDMS(AB)(OB) Trnscb Date/Time: 07/21/2021 (2020) [email or web address] Orig Print D/T: S: 07/21/2021 (2020) Probe: PAGE 1 Signed ReportBASIC METABOLIC [id number] 15:47:00 Test Item Value Reference Range Interpretation [...] to Renee TAFOYA.ATD at 15 47 07/19/21Nurse cristo morrissey back resut and tech confirmed it's correct? YES BLOOD UREA NITROGEN 28 mg/dL 7-18 H (test code = BUN) GLOMERULAR FILTRATION 30.8 90-95 L Units of measure = RATE (test code = GFR) ml/mi n/1.73 m2 CREATININE (test code = 1.7 mg/dL 0.6-1.3 H CREAT) CALCIUM (test code = 9.6 mg/dL 8.0-10.5 N CA) CBC W/AUTO [id number] 15:41:00 Test Item Value Reference Range Interpretation [...] REQUIRED (test code NO = MDIFF) PROTHROMBIN [id number] 15:39:00 Test Item Value Reference Range Interpretation Comments PROTHROMBIN TIME 11.0 SECONDS 9.3-12.9 N PATIENT (test code = PTP) INTERNATIONAL NORMAL 1.0 0.8-1.2 N TARGET INR BY RATIO (test code = INDICATIO N Indication INR) INR1. Prophylax is of venous thrombos is 2.0 - 3.0 (orthope dic surgery), Proph ylaxis of venous throm bosis [...] recurrent infar ct). - XR CHEST 2 [id number] 00:00:00 [facility] : 1960 Sex: F FAX: Dany Dean MD [phone] [place]: St: PRE Name: MARINA MARTINEZ [facility] : 1960 Age/S: 61/F [address] [place] [address] Unit #: [id number] Loc: [place] [address] Phys: Dany Mcdonald MD Acct: [id number] Dis Date: Status: PRE SDC PHONE #: [phone] Exam Date: 07/19/20211523 FAX #: [phone] Reason: PREOP EXAMS: CPT CODE: [id number] XR CHEST 2 V 30651 PROCEDURE INFORMATION: Exam: XR Chest Exam date and time: 07/19/2021 2:39 PM Age: 61 years old Clinical indication: Screening exam; Other screening; Additional info: Preop TECHNIQUE: Imaging protocol: XR of the chest. Views: 2 views.PA and Lateral COMPARISON: CR XR CHEST 1V 06/26/2021 6:09 AM FINDINGS: Lungs: The lungs are clear. Pleural spaces: No pleural effusion. No pneumothorax. Heart/Mediastinum: Cardiomediastinal silhouette is normal as is the pulmonary vasculature. Coronary arterial stent. The tracheal air shadow is midline. Bones/joints: Paraspinous ossifications thoracic spine. No acute skeletal abnormality. IMPRESSION:No acute findings. at 0028 Reported and signed by: Geovanni Lacey M.D. CC: Dany Mcdonald MD Technologist: RT Acacia(R) Trnscrd Date/Time/By: 07/19/2021 (1842) : By: Kenneth Orig Print D/T: S: 07/19/2021 (6461) PAGE1 Signed Report HEMOGLOBIN [id number] 13:12:00 Test Item Value Reference Range Interpretation Comments HEMOGLOBIN PLASMA 9.2 mg/dL 0.0-4.9 A Values obt ained between (test code = HGBP) 5-15 mg/d L should be interpretedwith caution since such vari clara as sub-optimalveni puncture may increase re sults to this range.Perf ormed At: [facility] [address] [id number] ra Jeff RYAN Ph:[phone] ARTERIAL BLOOD [id number] 15:17:00 Test Item Value Reference Range Interpretation Comments ARTERIAL BLOOD GAS PH TEST NOT PERFORMED 7.35-7.45 (test code = PHA) ARTERIAL BLOOD GAS PCO2 TEST NOT PERFORMED 35-45 (test code = PCO2A) mmHg ARTERIAL BLOOD GAS PO2 TEST NOT PERFORMED 80-100 (test code = PO2A) mmHg BICARBONATE TOTAL HCO3 TEST NOT PERFORMED 22.0-26.0 (test code = HCO3) mmol/L GLUCOSE [id number] 11:03:00 Test Item Value Reference Range Interpretation Comments GLUCOSE BEDSIDE (test 193 MG/DL 70-110 H Perfor med by certified code = GLUBED) 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 [facility] GLUCOSE [id number] 07:27:00 Test Item Value Reference Range Interpretation Comments GLUCOSE BEDSIDE (test 115 MG/DL 70-110 H Perfor med by certified code = GLUBED) 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 [facility] BASIC METABOLIC [id number] 04:17:00 Test Item Value Reference Range Interpretation [...] 8.4 mg/dL 8.0-10.5 N CA) CBC W/AUTO [id number] 03:33:00 Test Item Value Reference Range Interpretation [...] = MDIFF) COMMENTS: Daily while on HeparinGLUCOSE [id number] 20:07:00 Test Item Value Reference Range Interpretation Comments GLUCOSE BEDSIDE (test 186 MG/DL 70-110 H Perfor med by certified code = GLUBED) 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 [facility] GLUCOSE [id number] 17:05:00 Test Item Value Reference Range Interpretation Comments GLUCOSE BEDSIDE (test 161 MG/DL 70-110 H Perfor med by certified code = GLUBED) 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 [facility] GLUCOSE [id number] 11:53:00 Test Item Value Reference Range Interpretation Comments GLUCOSE BEDSIDE (test 173 MG/DL 70-110 H Perfor med by certified code = GLUBED) 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 [facility] GLUCOSE [id number] 08:14:00 Test Item Value Reference Range Interpretation Comments GLUCOSE BEDSIDE (test 117 MG/DL 70-110 H Perfor med by certified code = GLUBED) 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 [facility] BASIC METABOLIC [id number] 07:39:00 Test Item Value Reference Range Interpretation [...] code = 8.9 mg/dL 8.0-10.5 N CA) [id number] 07:39:00 Test Item Value Reference Range Interpretation Comments MAGNESIUM (test code = MAG) 1.79 mg/dL 1.80-2.40 L CBC W/AUTO [id number] 07:26:00 Test Item Value Reference Range Interpretation [...] = MDIFF) COMMENTS: Daily while on HeparinGLUCOSE [id number] 20:52:00 Test Item Value Reference Range Interpretation Comments GLUCOSE BEDSIDE (test 152 MG/DL 70-110 H Perfor med by certified code = GLUBED) 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 [facility] GLUCOSE [id number] 16:59:00 Test Item Value Reference Range Interpretation Comments GLUCOSE BEDSIDE (test 180 MG/DL 70-110 H Perfor med by certified code = GLUBED) 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 [facility] HEMOGLOBIN [id number] 13:10:00 Test Item Value Reference Range Interpretation Comments HEMOGLOBIN PLASMA 4.0 mg/dL 0.0-4.9 Values obt ained between (test code = HGBP) 5-15 mg/d L should be interpretedwith caution since such vari clara as sub-optimalveni puncture may increase re sults to this range.Perf ormed At: [facility] [address] [id number] ra Jeff RYAN Ph:[phone] HEMOGLOBIN [id number] 13:10:00 Test Item Value Reference Range Interpretation Comments HEMOGLOBIN PLASMA 21.8 mg/dL 0.0-4.9 A Results verified by (test code = HGBP) repeat te stingValues obtained betwee n 5-15 mg/dL should be interpretedwith caution since such vari clara as sub-optimalveni puncture may increase re sults to this range.Perf ormed At: [facility] [address] [id number] ra Jeff RYAN Ph:[phone] COMMENTS: Hemoglobin plasma nowGLUCOSE [id number] 11:52:00 Test Item Value Reference Range Interpretation Comments GLUCOSE BEDSIDE (test 157 MG/DL 70-110 H Perfor med by certified code = GLUBED) 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 [facility] GLUCOSE [id number] 08:01:00 Test Item Value Reference Range Interpretation Comments GLUCOSE BEDSIDE (test 168 MG/DL 70-110 H Perfor med by certified code = GLUBED) 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 [facility] BASIC METABOLIC [id number] 05:44:00 Test Item Value Reference Range Interpretation [...] code = 8.6 mg/dL 8.0-10.5 N CA) [id number] 05:44:00 Test Item Value Reference Range Interpretation Comments MAGNESIUM (test code = MAG) 1.81 mg/dL 1.80-2.40 N CBC W/AUTO [id number] 05:33:00 Test Item Value Reference Range Interpretation [...] Perfor med by certified code = GLUBED) 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 [facility] GLUCOSE [id number] 16:12:00 Test Item Value Reference Range Interpretation Comments GLUCOSE BEDSIDE (test 171 MG/DL 70-110 H Perfor med by certified code = GLUBED) 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 [facility] HGB [id number] 15:52:00 Test Item Value Reference Range Interpretation Comments HEMOGLOBIN (test code = HGB) 7.9 g/dL 11.0-15.0 L HEMATOCRIT (test code = HCT) 24.3 % 33.0-45.0 L POC ARTERIAL BLOOD [id number] 14:58:00 Test Item Value Reference Range Interpretation Comments POC ARTERIAL BLOOD GAS PH (test 7.524 7.35-7.45 HH code = POCPHA) POC ARTERIAL BLOOD GAS PCO2 34.0 mmHg 35.0-45 L (test code = [id number]) POC TCO2 ARTERIAL (test code = 29.1 POCTCO2) POC ARTERIAL BLOOD GAS PO2 (test 78.6 mmHg 80-100.0 L code = OZDJT3G) POC HCO3 ARTERIAL (test code = 28.1 MMOL/L 22.0-26.0 HH HIJMSW9P) POC BASE EXCESS (test code = 5.3 MMOL/L -4.0-4.0 H POCBEA) POC O2 SATURATION (test code = 96.9 % 90-100 N POCO2S) FIO2 (test code = FIO2A) 21 % PaO2/FiO2 (test code = RCT4FTN9) 374.28 mm/Hg ABG SITE (test code = SITEA) L Radial NEREYDA'S TEST (test code = Positive ALLENS) BASIC METABOLIC [id number] 14:58:00 Test Item Value Reference Range Interpretation [...] (test code = POCGLU) 209 MG/DL HEMOGLOBIN [id number] 14:58:00 Test Item Value Reference Range Interpretation Comments HEMOGLOBIN ABG (test code = HGB/ABG) 6.4 G/DL 11.0-15.0 L [id number] 14:58:00 Test Item Value Reference Range Interpretation Comments HEMATOCRIT (test code = HCT/ABG) 19 % 33.0-45.0 L POC LACTIC [id number] 14:58:00 Test Item Value Reference Range Interpretation Comments POC LACTIC ACID (test code = 0.9 mmol/l 0.9-1.7 N POCLAC) GLUCOSE [id number] 11:20:00 Test Item Value Reference Range Interpretation Comments GLUCOSE BEDSIDE (test 182 MG/DL 70-110 H Perfor med by certified code = GLUBED) 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 [facility] GLUCOSE [id number] 07:22:00 Test Item Value Reference Range Interpretation Comments GLUCOSE BEDSIDE (test 97 MG/DL 70-110 N Perfor med by certified code = GLUBED) 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 [facility] COMPREHENSIVE METABOLIC [id number] 05:51:00 Test Item Value Reference Range Interpretation [...] 20-125 N TOTAL (test code = ALKP) [id number] 05:51:00 Test Item Value Reference Range Interpretation Comments MAGNESIUM (test code = MAG) 1.72 mg/dL 1.80-2.40 L CBC W/AUTO [id number] 05:42:00 Test Item Value Reference Range Interpretation [...] on Impella support.COMMENTS: Daily while on HeparinGLUCOSE [id number] 20:19:00 Test Item Value Reference Range Interpretation Comments GLUCOSE BEDSIDE (test 173 MG/DL 70-110 H Perfor med by certified code = GLUBED) 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 [facility] GLUCOSE [id number] 18:00:00 Test Item Value Reference Range Interpretation Comments GLUCOSE BEDSIDE (test 216 MG/DL 70-110 H Perfor med by certified code = GLUBED) 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 [facility] GLUCOSE [id number] 12:46:00 Test Item Value Reference Range Interpretation Comments GLUCOSE BEDSIDE (test 139 MG/DL 70-110 H Perfor med by certified code = GLUBED) 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 [facility] GLUCOSE [id number] 08:22:00 Test Item Value Reference Range Interpretation Comments GLUCOSE BEDSIDE (test 126 MG/DL 70-110 H Perfor med by certified code = GLUBED) 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 [facility] BASIC METABOLIC [id number] 05:13:00 Test Item Value Reference Range Interpretation [...] code = 7.7 mg/dL 8.0-10.5 L CA) [id number] 05:13:00 Test Item Value Reference Range Interpretation Comments MAGNESIUM (test code = MAG) 1.68 mg/dL 1.80-2.40 L B-TYPE NATRIURETIC [id number] 05:12:00 Test Item Value Reference Range Interpretation Comments B-TYPE NATRIURETIC PEPTIDE (test 223.0 PG/ML 0-100 H code = BNP) CBC W/AUTO [id number] 05:08:00 Test Item Value Reference Range Interpretation [...] Daily while on Heparin- DUP UE ART UNI/[id number] 00:00:00 [facility] : 1960 Sex: F Name: MARINA MARTINEZ [facility] [place] : 1960 Age/S: 61 / F [address] [place] [address] Uni t #: [id number] Loc: [place] [address] Phys: Loly Agee NP Acct: [id number] Dis Date: Status: ADM IN PHONE #: [phone] Exam Date: 06/26/2021 0951 FAX #: [phone] Reason: S/P IMPELLA REMOVAL/RULE OUT HEMATOMA EXAMS: CPT [facility]: [id number] [facility] 57097 PROCEDURE INFORMATION: Exam: US Duplex Right Lower [...] Technologist: Monalisa Carter RDMS(Reggie)(BR) Trnscb Date/Time: 06/26/2021(1013) [email or web address] Orig Print D/T: S: 06/26/2021 (1013) Probe: PAGE 1 Signed Report- XR CHEST 1 [id number] 00:00:00 [facility] : 1960 Sex: F FAX: Alejandra Fraga MD [phone] [place]: St: ADM FAX: Zoraida Felder [phone] FAX:Dany Dean MD [phone] Name: JETHRO MARTINEZANGEL RUBIN [facility] : 1960 Age/S: 61/F [address] [place] [address] Unit #: [id number] Loc: G.[address] [place] [address] Phys: Zoraida Felder AGACNP Acct: [id number] Dis Date: Status: ADM IN PHONE #: [phone] Exam Date: 06/26/2021 0611 FAX #: [phone] Reason: fluid overload EXAMS: CPT CODE: [id number] XR CHEST 1 V 98175 PROCEDURE INFORMATION: Exam: XR Chest Exam date and time: 06/26/2021 6:09 AM Age: 61 years old Clinical indication: Other: Fluid overload TECHNIQUE: Imaging protocol: XR of the chest. Views: 1 view. COMPARISON: DX XR CHEST 2 V 05/10/2021 2:38 PM FINDINGS: Lungs: No obvious infiltrates or consolidations. Pleural spaces: Unremarkable. Nopleural effusion. No pneumothorax. Heart/Mediastinum: Cardiomegaly. Bones/joints: Thoracic spurring.IMPRESSION: No obvious infiltrates or consolidations. at 0751 Reported and signed by: Momo Weiner M.D. CC: Alejandra Zeng MD; Zoraida Felder; Dany Mcdonald MD Technologist: Rona Banuelos, RT(R); Nancy Melton, RT(R) Trnscrd Date/Time/By: 06/26/2021 (750) : By: [id number] Orig Print D/T: S: 06/26/2021 (075) PAGE 1 Signed ReportGLUCOSE [id number] 20:45:00 Test Item Value Reference Range Interpretation Comments GLUCOSE BEDSIDE (test 109 MG/DL 70-110 N Perfor med by certified code = GLUBED) 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 [facility] GLUCOSE [id number] 17:17:00 Test Item Value Reference Range Interpretation Comments GLUCOSE BEDSIDE (test 188 MG/DL 70-110 H Perfor med by certified code = GLUBED) 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 [facility] HGB [id number] 17:07:00 Test Item Value Reference Range Interpretation Comments HEMOGLOBIN (test code = HGB) 7.3 g/dL 11.0-15.0 L HEMATOCRIT (test code = HCT) 22.9 % 33.0-45.0 L GLUCOSE [id number] 12:04:00 Test Item Value Reference Range Interpretation Comments GLUCOSE BEDSIDE (test 265 MG/DL 70-110 H Perfor med by certified code = GLUBED) 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 [facility] GLUCOSE [id number] 07:41:00 Test Item Value Reference Range Interpretation Comments GLUCOSE BEDSIDE (test 288 MG/DL 70-110 H Perfor med by certified code = GLUBED) 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 [facility] [id number] 04:51:00 Test Item Value Reference Range Interpretation Comments MAGNESIUM (test code = MAG) 2.48 mg/dL 1.80-2.40 H CALCIUM [id number] 04:51:00 Test Item Value Reference Range Interpretation Comments CALCIUM IONIZED (test code = RYLEE) 1.01 MMOL/L 1.12-1.32 L CBC W/AUTO [id number] 04:33:00 Test Item Value Reference Range Interpretation [...] be done morning of Heart CathBASIC METABOLIC [id number] 04:10:00 Test Item Value Reference Range Interpretation [...] done morning of Heart CathLACTIC ACID 2ND [id number] 04:09:00 Test Item Value Reference Range Interpretation Comments LACTIC ACID 2ND REPEAT (test code 2.0 mmol/L 0.4-1.9 H = LACT2) ABOUT TO DRAW REPEATBASIC METABOLIC [id number] 01:02:00 Test Item Value Reference Range Interpretation [...] 6.7 mg/dL 8.0-10.5 L CA) LACTIC ACID [id number] 00:57:00 Test Item Value Reference Range Interpretation Comments LACTIC ACID REPEAT (test code = 3.0 mmol/l 0.4-1.9 H LACTR) COMPREHENSIVE METABOLIC [id number] 21:11:00 Test Item Value Reference Range Interpretation [...] 20-125 N TOTAL (test code = ALKP) [id number] 21:11:00 Test Item Value Reference Range Interpretation Comments PHOSPHOROUS (test code = PHOS) 3.5 MG/DL 2.5-4.9 N [id number] 21:11:00 Test Item Value Reference Range Interpretation Comments MAGNESIUM (test code = MAG) 1.99 mg/dL 1.80-2.40 N CALCIUM [id number] 21:11:00 Test Item Value Reference Range Interpretation Comments CALCIUM IONIZED (test code = RYLEE) 0.89 MMOL/L 1.12-1.32 L LACTIC [id number] 21:05:00 Test Item Value Reference Range Interpretation Comments LACTIC ACID (test code = LACT) 2.2 mmol/L 0.4-1.9 H CBC W/AUTO [id number] 21:02:00 Test Item Value Reference Range Interpretation [...] REQUIRED (test NO code = MDIFF) GLUCOSE [id number] 20:14:00 Test Item Value Reference Range Interpretation Comments GLUCOSE BEDSIDE (test 301 MG/DL 70-110 H Perfor med by certified code = GLUBED) 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 [facility] POC ARTERIAL BLOOD [id number] 16:54:00 Test Item Value Reference Range Interpretation Comments POC ARTERIAL BLOOD GAS PH (test 7.268 7.35-7.45 LL code = POCPHA) POC ARTERIAL BLOOD GAS PCO2 46.0 mmHg 35.0-45 H (test code = YVCUKV8V) POC TCO2 ARTERIAL (test code = 22.4 POCTCO2) POC ARTERIAL BLOOD GAS PO2 (test 247.9 mmHg 80-100.0 HH code = XFHMA2R) POC HCO3 ARTERIAL (test code = 21.0 MMOL/L 22.0-26.0 L YCXNBU1L) POC BASE EXCESS (test code = -5.9 MMOL/L -4.0-4.0 L POCBEA) POC O2 SATURATION (test code = 99.8 % 90-100 N POCO2S) ABG SITE (test code = SITEA) [place] BASIC METABOLIC [id number] 16:54:00 Test Item Value Reference Range Interpretation [...] (test code = POCGLU) 295 MG/DL HEMOGLOBIN [id number] 16:54:00 Test Item Value Reference Range Interpretation Comments HEMOGLOBIN ABG (test code = HGB/ABG) 7.0 G/DL 11.0-15.0 L [id number] 16:54:00 Test Item Value Reference Range Interpretation Comments HEMATOCRIT (test code = HCT/ABG) 21 % 33.0-45.0 L POC LACTIC [id number] 16:54:00 Test Item Value Reference Range Interpretation Comments POC LACTIC ACID (test code = 6.5 mmol/l 0.9-1.7 HH POCLAC) [id number] 16:49:00 Test Item Value Reference Range Interpretation Comments ACT-ISTAT (test code 136 SEC 74-137 N Perform ed by certified = ACTI) 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 [facility] THROMBOPLASTIN TIME [id number] 13:10:00 Test Item Value Reference Range Interpretation Comments THROMBOPLASTIN TIME 96.3 Seconds 25.0-39.5 H Therape utic Range: PARTIAL (test code = 50.4 - 88.3 Seconds PTT) Effective 06/26/2018 CBC W/O [id number] 13:01:00 Test Item Value Reference Range Interpretation [...] 9.5 fL 7.0-9.0 H = MPV) GLUCOSE [id number] 11:31:00 Test Item Value Reference Range Interpretation Comments GLUCOSE BEDSIDE (test 165 MG/DL 70-110 H Perfor med by certified code = GLUBED) 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 [facility] THROMBOPLASTIN TIME [id number] 10:57:00 Test Item Value Reference Range Interpretation Comments THROMBOPLASTIN TIME 93.7 Seconds 25.0-39.5 H Therape utic Range: PARTIAL (test code = 50.4 - 88.3 Seconds PTT) Effective 06/26/2018 CBC W/AUTO [id number] 10:48:00 Test Item Value Reference Range Interpretation [...] REQUIRED (test NO code = MDIFF) GLUCOSE [id number] 08:41:00 Test Item Value Reference Range Interpretation Comments GLUCOSE BEDSIDE (test 201 MG/DL 70-110 H Perfor med by certified code = GLUBED) 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 [facility] THROMBOPLASTIN TIME [id number] 08:31:00 Test Item Value Reference Range Interpretation Comments THROMBOPLASTIN TIME 115.0 Seconds 25.0-39.5 H Therap eutic PARTIAL (test code = Range: 50.4 - 88.3 PTT) Seconds Effective 06/26/2018 THROMBOPLASTIN TIME [id number] 05:47:00 Test Item Value Reference Range Interpretation Comments THROMBOPLASTIN TIME 129.9 Seconds 25.0-39.5 H Therap eutic PARTIAL (test code = Range: 50.4 - 88.3 PTT) Seconds Effective 06/26/2018 BASIC METABOLIC [id number] 05:47:00 Test Item Value Reference Range Interpretation [...] code = 8.2 mg/dL 8.0-10.5 N CA) [id number] 05:47:00 Test Item Value Reference Range Interpretation Comments MAGNESIUM (test code = MAG) 1.79 mg/dL 1.80-2.40 L CBC W/AUTO [id number] 05:25:00 Test Item Value Reference Range Interpretation [...] Impella support.COMMENTS: Daily while on HeparinTHROMBOPLASTIN TIME [id number] 02:34:00 Test Item Value Reference Range Interpretation Comments THROMBOPLASTIN TIME 45.4 Seconds 25.0-39.5 H Therape utic Range: PARTIAL (test code = 50.4 - 88.3 Seconds PTT) Effective 06/26/2018 THROMBOPLASTIN TIME [id number] 22:54:00 Test Item Value Reference Range Interpretation Comments THROMBOPLASTIN TIME 33.3 Seconds 25.0-39.5 Therape utic Range: PARTIAL (test code = 50.4 - 88.3 Seconds PTT) Effective 06/26/2018 THROMBOPLASTIN TIME [id number] 21:14:00 Test Item Value Reference Range Interpretation Comments THROMBOPLASTIN TIME 65.5 Seconds 25.0-39.5 H Therape utic Range: PARTIAL (test code = 50.4 - 88.3 Seconds PTT) Effective 06/26/2018 GLUCOSE [id number] 20:25:00 Test Item Value Reference Range Interpretation Comments GLUCOSE BEDSIDE (test 316 MG/DL 70-110 H Perfor med by certified code = GLUBED) 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 [facility] THROMBOPLASTIN TIME [id number] 20:19:00 Test Item Value Reference Range Interpretation Comments THROMBOPLASTIN TIME 104.0 Seconds 25.0-39.5 H Therap eutic PARTIAL (test code = Range: 50.4 - 88.3 PTT) Seconds Effective 06/26/2018 CBC W/AUTO [id number] 20:07:00 Test Item Value Reference Range Interpretation [...] DONE WITHIN THE LAST 24 HOURSTHROMBOPLASTIN TIME [id number] 19:07:00 Test Item Value Reference Range Interpretation Comments THROMBOPLASTIN TIME > 200.0 25.0-39.5 H Therape utic PARTIAL (test code = Seconds Range: 50.4 - 88.3 PTT) Seconds Effective 06/26/2018 COMMENTS: Start 2hrs post procedure check q1hr until 2 results in range, then q4 GLUCOSE [id number] 17:11:00 Test Item Value Reference Range Interpretation Comments GLUCOSE BEDSIDE (test 365 MG/DL 70-110 H Perfor med by certified code = GLUBED) 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 [facility] THROMBOPLASTIN TIME [id number] 17:04:00 Test Item Value Reference Range Interpretation Comments THROMBOPLASTIN TIME > 200.0 25.0-39.5 H Therape utic PARTIAL (test code = Seconds Range: 50.4 - 88.3 PTT) Seconds Effective 06/26/2018 COMMENTS: Start 2hrs post procedure check q1hr until 2 results in range, then q4 [id number] 15:09:00 Test Item Value Reference Range Interpretation Comments ACT-ISTAT (test code 267 SEC 74-137 H Perform ed by certified = ACTI) 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 [facility] [id number] 14:22:00 Test Item Value Reference Range Interpretation Comments ACT-ISTAT (test code 255 SEC 74-137 H Perform ed by certified = ACTI) 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 [facility] [id number] 13:52:00 Test Item Value Reference Range Interpretation Comments ACT-ISTAT (test code 362 SEC 74-137 H Perform ed by certified = ACTI) 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 [facility] [id number] 13:38:00 Test Item Value Reference Range Interpretation Comments ACT-ISTAT (test code 237 SEC 74-137 H Perform ed by certified = ACTI) 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 [facility] [id number] 13:04:00 Test Item Value Reference Range Interpretation Comments ACT-ISTAT (test code 273 SEC 74-137 H Perform ed by certified = ACTI) 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 [facility] [id number] 12:41:00 Test Item Value Reference Range Interpretation Comments ACT-ISTAT (test code 315 SEC 74-137 H Perform ed by certified = ACTI) 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 [facility] GLUCOSE [id number] 11:42:00 Test Item Value Reference Range Interpretation Comments GLUCOSE BEDSIDE (test 332 MG/DL 70-110 H [facility] med by certified code = GLUBED) 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 [facility] PROTHROMBIN [id number] 13:57:00 Test Item Value Reference Range Interpretation [...] (to prevent recurrent infar ct). BASIC METABOLIC [id number] 13:47:00 Test Item Value Reference Range Interpretation [...] 8.9 mg/dL 8.0-10.5 N CA) CBC W/AUTO [id number] 13:35:00 Test Item Value Reference Range Interpretation [...] REQUIRED (test code NO = MDIFF) GLUCOSE [id number] 16:18:00 Test Item Value Reference Range Interpretation Comments GLUCOSE BEDSIDE (test 227 MG/DL 70-110 H Perfor med by certified code = GLUBED) 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 [facility] TROP-I HIGH [id number] 16:11:00 Test Item Value Reference Range Interpretation Comments TROP-I HIGH 1599 ng/L 0-34 HH CAUTION: Units of the SENSITIVITY (test current te st methodology code = TROPIHS) (ng/L) diffe rfrom the prior test meth odology (ng/mL) by a fa ctor of 1000. 99t h Percentile Uppe r Reference Limit (URL): Fe males: 34 ng/LMales: 54 n g/L In order to [facility]in [facility] acute elevations of h igh sensitivitytrop onin [...] and URLs mayvar y by method. LIPOPROTEIN [id number] 15:14:00 Test Item Value Reference Range Interpretation Comments LIPOPROTEIN LDL 56.8 mg/dL 0-100 N <100 OPTIMAL 100-129 NEAR (test code = LDL) OPTIMAL/AB OVE [id number] 89 HIGH>LZ=946 JUSTINO Y HIGH*Guidelines provided by the National Cholesterol EducationProgra m Adult Treatment Panel III TROP-I HIGH [id number] 14:57:00 Test Item Value Reference Range Interpretation Comments TROP-I HIGH 1583 ng/L 0-34 HH Critical result called to SENSITIVITY (test CARLEE NEFF RNby code = TROPIHS) G.LAB.JN1 at 1454 05/13/21Nurse [...] These resu lts were obtained using Siemens AtellRoamz IM TnI Hreagent. Results from di fferent methodologies s hould not becompared to o ne another as quantitative results and URLs mayvar y by method. GLUCOSE [id number] 11:56:00 Test Item Value Reference Range Interpretation Comments GLUCOSE BEDSIDE (test 241 MG/DL 70-110 H Perfor med by certified code = GLUBED) 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 [facility] GLUCOSE [id number] 08:03:00 Test Item Value Reference Range Interpretation Comments GLUCOSE BEDSIDE (test 209 MG/DL 70-110 H Perfor med by certified code = GLUBED) 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 [facility] BASIC METABOLIC [id number] 04:59:00 Test Item Value Reference Range Interpretation [...] 9.2 mg/dL 8.0-10.5 N CA) CBC W/AUTO [id number] 04:50:00 Test Item Value Reference Range Interpretation [...] REQUIRED (test code NO = MDIFF) GLUCOSE [id number] 20:31:00 Test Item Value Reference Range Interpretation Comments GLUCOSE BEDSIDE (test 339 MG/DL 70-110 H Perfor med by certified code = GLUBED) 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 [facility] [id number] 15:58:00 Test Item Value Reference Range Interpretation Comments ACT-ISTAT (test code 154 SEC 74-137 H Perform ed by certified = ACTI) 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 [facility] [id number] 15:05:00 Test Item Value Reference Range Interpretation Comments ACT-ISTAT (test code 178 SEC 74-137 H Perform ed by certified = ACTI) 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 [facility] [id number] 13:53:00 Test Item Value Reference Range Interpretation Comments ACT-ISTAT (test code 207 SEC 74-137 H Perform ed by certified = ACTI) 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 [facility] GLUCOSE [id number] 12:53:00 Test Item Value Reference Range Interpretation Comments GLUCOSE BEDSIDE (test 150 MG/DL 70-110 H Perfor med by certified code = GLUBED) 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 [facility] [id number] 12:12:00 Test Item Value Reference Range Interpretation Comments ACT-ISTAT (test code 261 SEC 74-137 H Perform ed by certified = ACTI) 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 [facility] [id number] 11:36:00 Test Item Value Reference Range Interpretation Comments ACT-ISTAT (test code 261 SEC 74-137 H Perform ed by certified = ACTI) 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 [place] [id number] 11:02:00 Test Item Value Reference Range Interpretation Comments ACT-ISTAT (test code 321 SEC 74-137 H Perform ed by certified = ACTI) 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 CBC W/AUTO [id number] 14:20:00 Test Item Value Reference Range Interpretation [...] 0.0-0.1 N NRBC#) - XR CHEST 2 [id number] 00:00:00 [facility] : 1960 Sex: F FAX: Dany Dean MD [phone] [place]: St: REG Name: MARINA MARTINEZ [facility] [place] : 1960 Age/S: 61/F [address] [place] [address] Unit #: [id number] Loc: [place] [address] Phys: Dany Mcdonald MD Acct: [id number] Dis Date: Status: REG [facility] PHONE #: [phone] Exam Date: 05/10/20211451 FAX #: [phone] Reason: PREOP EXAMS: CPT CODE: [id number] XR CHEST 2 V 13073 PROCEDURE INFORMATION: Exam: XR Chest Exam date and time: 05/10/2021 2:38 PM Age: 61 years old Clinical indication: Pre-operative exam; Respiratory screening exam; Additional info: Preop TECHNIQUE: Imaging protocol: XR of the chest. Views: 2 views. PA and Lateral COMPARISON: No relevant prior studies available. FINDINGS: Lungs:There are normal lung volumes without consolidation or interstitial oppacities. Pleural spaces: No pleural effusion. No pneumothorax. Heart/Mediastinum: The heart size is normal. Vasculature: Aortic calcifications are present. Bones/joints: Mild degenerative changes in thoracic spine. IMPRESSION: No acute cardiopulmonary process. at 2310 Reported and signed by: Felton Michelle M.D. CC: Dany Mcdonald MD Technologist: José Miguel Bustos RT(R) Trnscrd Date/Time/By: 05/10/2021 (2309) : By: [email or web address] Orig Print D/T: S: 05/10/2021 (2309) PAGE 1 Signed ReportPOCT-GLUCOSE [id number] 21:54:00 Test Item Value Reference Range Interpretation Comments POC-GLUCOSE METER 194 mg/dL 70-110 H TESTED AT [place] [address] ([facility]) (test code = [place] 1538) [address] POCT-GLUCOSE [id number] 16:50:00 Test Item Value Reference Range Interpretation Comments POC-GLUCOSE METER 134 mg/dL 70-110 H TESTED AT [place] [address] ([facility]) (test code = [place] 1538) [address] POCT-GLUCOSE [id number] 12:10:00 Test Item Value Reference Range Interpretation Comments POC-GLUCOSE METER 155 mg/dL 70-110 H TESTED AT [place] [address] ([facility]) (test code = [facility] [place] [facility] 1538) [address] POCT-GLUCOSE [id number] 05:34:00 Test Item Value Reference Range Interpretation Comments POC-GLUCOSE METER 249 mg/dL 70-110 H TESTED AT [place] [address] ([facility]) (test code = [facility] [place] [facility] 1538) [address] POCT-GLUCOSE [id number] 00:09:00 Test Item Value Reference Range Interpretation Comments POC-GLUCOSE METER 236 mg/dL 70-110 H TESTED AT [place] [address] ([facility]) (test code = [facility] [place] [facility] 1538) [address] POCT-GLUCOSE [id number] 21:17:00 Test Item Value Reference Range Interpretation Comments POC-GLUCOSE METER 153 mg/dL 70-110 H TESTED AT [place] [address] ([facility]) (test code = [facility] [place] [facility] 1538) [address] POCT-GLUCOSE [id number] 18:23:00 Test Item Value Reference Range Interpretation Comments POC-GLUCOSE METER 148 mg/dL 70-110 H TESTED AT [place] [address] ([facility]) (test code = [facility] [place] [facility] 1538) [address] [place], UGI, WITHOUT [id number] 17:33:00Reason for exam:->Please evaluate with thin barium [...] Esophageal peristalsis was normal. Signed: Shen Penn MDReport Verified Date/Time: 10/16/2018 17:33:25 Reading Location: [facility] C013X Ortho Consult Reading Room -GLUCOSE [id number] 05:59:00 Test Item Value Reference Range Interpretation Comments POC-GLUCOSE METER 192 mg/dL 70-110 H TESTED AT [place] [address] ([facility]) (test code = [facility] 1538) [address] POCT-GLUCOSE [id number] 00:39:00 Test Item Value Reference Range Interpretation Comments POC-GLUCOSE METER 172 mg/dL 70-110 H TESTED AT [place] [address] ([facility]) (test code = [facility] 1538) [address] POCT-GLUCOSE [id number] 22:13:00 Test Item Value Reference Range Interpretation Comments POC-GLUCOSE METER 187 mg/dL 70-110 H TESTED AT [place] [address] ([facility]) (test code = [facility] 1538) [address] RAD, CHEST, 1 VIEW, NON [id number] 18:59:00Reason for exam:->preopShould this be performed at [...] congestion. No acute bony abnormality. Signed: Lottie Mcgraw MDRkatelynort Verified Date/Time: 10/15/2018 18:59:09 Reading Location: [facility] [address] [id number] Consult Reading Room BASI METABOLIC [id number] 18:46:00 Test Item Value Reference Range Interpretation [...] NOT APPLICABLE FOR DIALYSIS PATIEN TS. HEMOGLOBIN [id number] 18:36:00 Test Item Value Reference Range Interpretation Comments HEMOGLOBIN A1C (BEAKER) (test code = 9.7 % 4.3-6.1 H 368) POCT-GLUCOSE [id number] 18:14:00 Test Item Value Reference Range Interpretation Comments POC-GLUCOSE METER 207 mg/dL 70-110 H TESTED AT [facility] 6720 (BEAKER) (test code = [place] 1538) [address] CBC W/PLT COUNT & AUTO [id number] 18:13:00 Test Item Value Reference Range Interpretation [...] % 0-1 PERCENT (BEAKER) (test code = 6075)
[2021-12-30 19:01] LABS: Absolute Lymphocytes (CBC) 2.4 K/uL (0.7-4.9); Hematocrit 36.6 % (36.0-45.0); Lymphocytes % 35.1 % (15.3-44.8); MCV 81.9 fL (80-100); MPV 7.7 fL (7.6-11.3); RBC Red Blood Cell Count 4.46 M/uL (3.86-4.86)
[2021-12-30 19:04] LABS: Protime INR 0.87
--- NOTE | 2021-12-30 19:16 | RAD REPORT ---
EXAM DESCRIPTION: Ivis Single View12/30/2021 6:55 pm CLINICAL HISTORY: Chest pain COMPARISON: October 2021 FINDINGS: The lungs appear clear of acute infiltrate. The heart is normal size IMPRESSION: No acute abnormalities displayed
[2021-12-30 19:25] LABS: Magnesium 1.9 mg/dL (1.8-2.4); Potassium 4.3 mmol/L (3.5-5.1); Troponin High Sensitivity 14.7 pg/mL (<58.9)
--- NOTE | 2021-12-30 19:34 | ER ---
Nurse's Notes [facility] Name: Tamy Martinez Age: 61 yrs Sex: Female : 1960 Arrival Date: 12/30/2021 Time: 17:20 Bed 15 Private MD: Diagnosis: Chest pain, unspecified Presentation: 12/30 17:21 Chief complaint: Patient states: chest pain and right arm pain x2 hours. Coronavirus jh5 screen: Vaccine status: Patient reports being unvaccinated. Client denies travel out of the [place] in the last 14 days. At this time, the client does not indicate any symptoms associated with coronavirus-19. Ebola Screen: Patient negative for fever greater than or equal to 101.5 degrees Fahrenheit, and additional compatible Ebola Virus Disease symptoms Patient denies exposure to infectious person. Patient denies travel to an Ebola-affected area in the 21 days before illness onset. Initial Sepsis Screen: Does the patient meet any 2 criteria? No. Patient's initial sepsis screen is negative. Does the patient have a suspected source of infection? No. Patient's initial sepsis screen is negative. Risk Assessment: Do you want to hurt yourself or someone else? Patient reports no desire to harm self or others. Onset of symptoms was December 30, 2021. 17:21 Method Of Arrival: Ambulatory [facility] 17:21 Acuity: HODAN 3 jh5 Triage Assessment: 17:22 General: Appears in no apparent distress. uncomfortable, obese, well groomed, well jh5 developed, Behavior is calm, cooperative, appropriate for age. Pain: Complains of pain in chest and right arm. Cardiovascular: Reports chest pain. Historical: - Allergies: 17:22 Iodinated Contrast Media - IV Dye; jh5 - PMHx: 17:22 Diabetes - IDDM; Hypertension; Hypertension resolved after lap band; Myocardial jh5 infarction; Rheumatoid Arthritis; - Immunization history:: Adult Immunizations up to date. - Social history:: Smoking status: Patient denies any tobacco usage or history of. Screenin:56 Abuse screen: Denies threats or abuse. Nutritional screening: No deficits noted. kl Tuberculosis screening: No symptoms or risk factors identified. Fall Risk None identified. Assessment: 20:57 Pain: Pain does not radiate. kl 20:58 Pain: Denies pain. kl 20:59 General: Appears in no apparent distress. comfortable. Neuro: No deficits noted. kl Cardiovascular: Capillary refill < 3 seconds Rhythm is sinus rhythm. Respiratory: No deficits noted. Airway is patent Trachea midline Respiratory effort is even, unlabored, Respiratory pattern is regular, symmetrical. GI: No deficits noted. No signs and/or symptoms were reported involving the gastrointestinal system. : No deficits noted. No signs and/or symptoms were reported regarding the genitourinary system. 20:59 Pain: Pain began 4 hours ago. Vital Signs: 17:21 BP 156 / 70; Pulse 78; Resp 16; Temp 98.7; Pulse Ox 100% ; Weight 92.99 kg; Height 5 [facility] ft. 1 in. (154.94 cm); Pain 8/10; 20:56 BP 130 / 61; Pulse 66; Resp 18; Pulse Ox 97% on R/A; Pain 0/10; kl 17:21 Body Mass Index 38.73 (92.99 kg, 154.94 cm) [facility] ED Course: 17:20 Patient arrived in ED. am2 17:22 Triage completed. [facility] 17:22 Arm band placed on right wrist. [facility] 17:25 Chhaya Collado FNP-C is PHCP. kb 17:25 Ildefonso Melgar MD is Attending Physician. kb 17:54 Chuckie Patel RN is Primary Nurse. [facility] 18:57 XRAY Chest (1 view) In Process Unspecified. EDMS 19:28 Notified Nurse Practitioner and/or Physician [employer] Team Leader of a critical lab result(s), bb Glucose of 435 Chhaya Collado IRON ERECTOR notified. 19:33 Shyam Kirkland MD is Hospitalizing Provider. kb 20:57 Client placed on continuous cardiac and pulse oximetry monitoring. NIBP monitoring kl applied. compliance monitor on. 20:57 Patient has correct armband on for positive identification. kl 20:57 No provider procedures requiring assistance completed. Patient admitted, IV remains in kl place. 20:57 Patient maintains SpO2 saturation greater than 95% on room air. Administered Medications: 20:42 Drug: Insulin Regular Human 5 units {Co-Signature: vc1 (Kamla Maharaj RN).} Route: kl IVP; Site: right antecubital; 21:14 Drug: Gabapentin 300 mg Route: PO; 21:23 Follow up: Response: No adverse reaction Medication: 20:57 VIS not applicable for this client. Outcome: 19:33 Decision to Hospitalize by Provider. 20:57 Admitted to Med/surg 20:57 Condition: unchanged 20:57 Instructed on the need for admit. 22:30 Patient left the ED. Signatures: Dispatcher [employer] EDCT Chhaya Collado, SERVICE DOG TRAINER-Alf ADAMS-Patricia Santos RN RN Brisa Gardner RN RN Jackie Westbrook Jonathon RN RN jd3 Anna Salinas RN RN jh5 Kamla Maharaj RN vc1 Corrections: (The following items were deleted from the chart) : 20:57 Pain: Pain began gradually, 2-3 days ago. [facility]
--- NOTE | 2021-12-30 19:34 | EDPHYS ---
Physician Documentation [facility] Name: Tamy Martinez Age: 61 yrs Sex: Female : 1960 Arrival Date: 12/30/2021 Time: 17:20 Bed 15 Private MD: ED Physician Ildefonso Melgar HPI: 12/30 19:34 This 61 yrs old Female presents to ER via Ambulatory with complaints of Chest Pain, Arm kb Pain. 19:34 The patient or guardian reports chest pain that is located primarily in the substernal kb area. Onset: 2 hour(s) ago. The pain does not radiate. Associated signs and symptoms: Pertinent positives: shortness of breath. The chest pain is described as a pressure. Duration: The patient or guardian reports a single episode. Modifying factors: The symptoms are alleviated by nothing. the symptoms are aggravated by nothing. Severity of pain: At its worst the pain was moderate in the emergency department the pain is unchanged. The patient has experienced similar episodes in the past, today's symptoms are similar, to previous pain with stent placement. The patient has not recently seen a physician. Historical: - Allergies: 17:22 Iodinated Contrast Media - IV Dye; jh5 - PMHx: 17:22 Diabetes - IDDM; Hypertension; Hypertension resolved after lap band; Myocardial jh5 infarction; Rheumatoid Arthritis; - Immunization history:: Adult Immunizations up to date. - Social history:: Smoking status: Patient denies any tobacco usage or history of. ROS: 19:34 Constitutional: Negative for fever, chills, and weight loss. kb 19:34 Cardiovascular: Positive for chest pain, Negative for edema, orthopnea, palpitations, paroxysmal nocturnal dyspnea. 19:34 Respiratory: Positive for shortness of breath. 19:34 All other systems are negative. Exam: 19:34 Constitutional: This is a well developed, well nourished patient who is awake, alert, kb and in no acute distress. Head/Face: Normocephalic, atraumatic. ENT: Moist Mucous membranes Cardiovascular: Regular rate and rhythm with a normal S1 and S2. No gallops, murmurs, or rubs. No pulse deficits. Respiratory: Respirations even and unlabored. No increased work of breathing. Talking in full sentences Abdomen/GI: Soft, non-tender. No distention Skin: Warm, dry with normal turgor. Normal color. MS/ Extremity: Pulses equal, no cyanosis. Neurovascular intact. Full, normal range of motion. Neuro: Awake and alert, GCS 15, oriented to person, place, time, and situation. Moves all extremities. Normal gait. 20:02 ECG was reviewed by the Attending Physician. kb Vital Signs: 17:21 BP 156 / 70; Pulse 78; Resp 16; Temp 98.7; Pulse Ox 100% ; Weight 92.99 kg; Height 5 jh5 ft. 1 in. (154.94 cm); Pain 8/10; 20:56 BP 130 / 61; Pulse 66; Resp 18; Pulse Ox 97% on R/A; Pain 0/10; kl 17:21 Body Mass Index 38.73 (92.99 kg, 154.94 cm) jh5 MDM: 17:50 Patient medically screened. kb 19:32 Data reviewed: vital signs, nurses notes. Data interpreted: Pulse oximetry: on room air kb is 100 %. Interpretation: normal. Counseling: I had a detailed discussion with the patient and/or guardian regarding: the historical points, exam findings, and any diagnostic results supporting the discharge/admit diagnosis, lab results, radiology results, the need for further work-up and treatment in the hospital. Physician consultation: Isidra Worthington PA-C was contacted at 19:33, regarding admission, to the telemetry unit. patient's condition, and will see patient in ED. 12/30 18:06 Order name: Basic Metabolic Panel; Complete Time: 19:28 kb 12/30 18:06 Order name: CBC with Diff; Complete Time: 19:12 kb 12/30 18:06 Order name: Magnesium; Complete Time: 19:28 kb 12/30 18:06 Order name: NT PRO-BNP; Complete Time: 19:28 kb 12/30 18:06 Order name: PT-INR; Complete Time: 19:12 kb 12/30 18:06 Order name: Troponin HS; Complete Time: 19:28 kb 12/30 18:06 Order name: XRAY Chest (1 view); Complete Time: 19:21 kb 12/30 18:06 Order name: EKG; Complete Time: 18:07 kb 12/30 18:06 Order name: Cardiac monitoring; Complete Time: 18:36 kb 12/30 18:06 Order name: EKG - Nurse/Tech; Complete Time: 18:36 kb 12/30 18:06 Order name: IV Saline Lock; Complete Time: 19:13 kb 12/30 18:06 Order name: COVID-19 SARS RT PCR (Document "Date of Onset" if Symptomatic); Complete kb Time: 18:46 12/30 18:06 Order name: Labs collected and sent; Complete Time: 19:13 kb 12/30 18:06 Order name: O2 Per Protocol; Complete Time: 18:36 kb 12/30 18:06 Order name: O2 Sat Monitoring; Complete Time: 18:36 kb EC:02 Rate is 71 beats/min. Rhythm is regular. QRS [place] is Normal. TN interval is normal at kb 148 msec. QRS interval is normal at 82 msec. QT interval is normal at 454 msec. Administered Medications: 20:42 Drug: Insulin Regular Human 5 units {Co-Signature: vc1 (Kamla Maharaj RN).} Route: kl IVP; Site: right antecubital; 21:14 Drug: Gabapentin 300 mg Route: PO; 21:23 Follow up: Response: No adverse reaction kl Disposition Summary: 12/30/21 19:33 Hospitalization Ordered Hospitalization Status: Observation kb Provider: Shyam Kirkland Location: Telemetry/MedSurg (observation) kb Condition: Stable kb Problem: new kb Symptoms: are unchanged kb Bed/Room Type: Standard Room Assignment: 401(12/30/21 20:53) Diagnosis - Chest pain, unspecified kb Forms: - Medication Reconciliation Form kb - SBAR form kb Addendum: 01/04/2022 04:03 Co-signature as Attending Physician, Ildefonso Melgar MD I agree with the assessment and c hernandez plan of care. Signatures: Dispatcher [employer] Chhaya Schaefer, BRYAN-C BRYAN-Patricia Santos RN Merlyn Dominguez RN Ildefonso Garcia MD MD cha Rees, Jessica RN RN 5 Isidra Worthington PAJames PAJames sb4 Kamla Maharaj RN vc1 Corrections: (The following items were deleted from the chart) 12/30 20:53 19:33 kb mw
--- NOTE | 2021-12-30 20:14 | P.HP ---
Certification for Inpatient Patient admitted to: Observation With expected LOS: <2 Midnights Patient will require the following post-hospital care: None Practitioner: I am a practitioner with admitting privileges, knowledge of patient current condition, hospital course, and medical plan of care. 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 She states that this is what her chest pain felt like before she had her most recent stent placed. She takes 325 mg aspirin daily so no additional was administered. Her labs today were significant for Cr 1.34, BUN 30, glucose 435, BNP 455. EKG without ST changes. Vital signs stable. She reports compliance with her medications. Most recent echo in July with EF of 51%. ED provider wishes to admit patient for observation for ACS rule out. Allergies Iodinated Contrast Media [Iodinated Contrast Media - Oral and] Allergy (Severe, Verified 03/13/17 21:21) Unknown iodine [Iodine] Allergy (Severe, Verified 04/11/16 14:05) Itching and swelling Home medications list reviewed: Yes Home Medications: Gabapentin [Neurontin] 600 mg PO BID 02/25/20 Losartan Potassium [Cozaar] 50 mg PO DAILY 02/25/20 Clopidogrel Bisulfate [Plavix*] 75 mg PO DAILY #30 tablet 02/28/20 Methotrexate [Methotrexate*] 5 tab PO Q7D 03/05/20 Folic Acid 1 mg PO DAILY 04/13/21 Insulin Aspart 8 units SQ BREAKFAST 04/13/21 Insulin Degludec [Tresiba] 26 unit SQ BREAKFAST 04/13/21 Aspirin [Aspirin EC 81 MG] 81 mg PO DAILY 07/13/21 Duloxetine [Cymbalta *] 1 pill PO DAILY 07/13/21 Nitroglycerin 0.4 mg SL 1X 07/13/21 Tofacitinib Citrate [Xeljanz Xr] 1 pill PO DAILY 07/13/21 Albuterol Inhaler [Ventolin Inhaler*] 2 puff IH Q6H PRN #1 hfa.aer.ad 07/15/21 Furosemide [Lasix*] 40 mg PO DAILY #30 tab 07/15/21 Ondansetron [Zofran (Odt)*] 4 mg PO Q6H PRN #20 tab 07/15/21 Potassium Chloride [K-Dur] 10 meq PO DAILY #30 tab.er.prt 07/15/21 Atorvastatin Calcium [Lipitor] 40 mg PO BEDTIME 30 Days #30 tab 10/16/21 Metoprolol Tartrate [Lopressor*] 1 tab PO BID 30 Days #60 tab 10/16/21 - Past Medical/Surgical History Diabetic: Yes -: Diabetes mellitus type 2, Insulin Dependent -: HTN -: Rheuamtoid Arthritis -: Degenerative disk and joint disease of the spine -: CAD -: Lap band 2009 -: x2 -: Bilateral knee replacement -: Cholecystectomy -: Stent x7 Psychosocial/ Personal History: She is , has 2 children. She does not work. - Family History Father -: Heart disease, Hypertension Mother -: Cancer Notes: esophageal - Social History Smoking Status: Never smoker Alcohol use: No CD- Drugs: No Caffeine use: Yes Place of Residence: Home Review of Systems Cardiovascular: Chest Pain Physical Examination - Physical Exam General: Alert, In no apparent distress HEENT: Atraumatic, PERRLA, EOMI, Sclerae nonicteric Neck: Supple, 2+ carotid pulse no bruit, No LAD, Without JVD or thyroid abnormality Respiratory: Clear to auscultation bilaterally, Normal air movement Cardiovascular: Regular rate/rhythm, Normal S1 S2 Gastrointestinal: Normal bowel sounds, No tenderness Musculoskeletal: No tenderness Integumentary: No rashes Neurological: Normal speech, Normal strength at 5/5 x4 extr, Normal tone, Normal affect - Studies Laboratory Data (last 24 hrs) 12/30/21 18:51: PT 9.6, INR 0.87 12/30/21 18:51: WBC 6.90, Hgb 12.4, Hct 36.6, Plt Count 259 12/30/21 18:51: Sodium 135 L, Potassium 4.3, BUN 30 H, Creatinine 1.34 H, Glucose 435 H*, Magnesium 1.9 Assessment and Plan - Problems (Diagnosis) (1) Hypertension Current Visit: Yes Status: Chronic Qualifiers: Hypertension type: primary hypertension Qualified Code(s): I10 - Essential (primary) hypertension (2) Hyperlipidemia Current Visit: Yes Status: Chronic Qualifiers: Hyperlipidemia type: unspecified Qualified Code(s): E78.5 - Hyperlipidemia, unspecified (3) CKD (chronic kidney disease) Current Visit: Yes Status: Chronic Qualifiers: Chronic kidney disease stage: stage 3 (moderate) Chronic kidney disease stage 3 subtype: stage 3b (GFR 30-44) Qualified Code(s): N18.32 - Chronic kidney disease, stage 3b (4) Coronary artery disease Current Visit: Yes Status: Chronic Qualifiers: Coronary Disease-Associated Artery/Lesion type: [place] artery [place] vs. 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 Trend -Monitor on telemetry -Cardiology consult. Have previously recommended medical management with Imdur and metoprolol -ACHS accu checks with aggressive sliding scale insulin as patient has been hyperglycemia. A1C in morning. Diabetic diet -Lipid panel and TSH in AM -Monitor and replete electrolytes per protocol -Reconcile and continue home medications -Lovenox for VTE prophyalxis -Full code Discharge Plan: Home Plan to discharge in: 24 Hours - Advance Directives Does patient have a Living Will: No Does patient have a Durable POA for Healthcare: No - Code Status/Comfort Care Code Status Assessed: Yes (Full) Critical Care: No Time Spent Managing Pts Care (In Minutes): 50
[2021-12-30] MEDS ORDERED: INSULIN -REGULAR HUMAN 50 UNIT/0.5 ML ML ONE (20:39)
[2021-12-30] MEDS ORDERED: GABAPENTIN 300 MG CAP ONE (21:13)
[2021-12-30] MEDS ORDERED: ACETAMINOPHEN 500 MG TAB PO PRN (22:30)
[2021-12-30] MEDS ORDERED: ONDANSETRON 4 MG/2 ML VIAL IV PRN (22:30)
[2021-12-30] MEDS ORDERED: ATORVASTATIN 40 MG TAB PO SCH (22:30)
[2021-12-30] MEDS: INSULIN -REGULAR HUMAN 50 UNIT/0.5 ML ML SQ SCH (23:04)
[2021-12-30 23:09] VITALS: BMI 38.7
[2021-12-30] MEDS ORDERED: HYDROCODONE/APAP 5/325 MG TAB PO PRN (23:11)
[2021-12-30 23:34] VITALS: O2SAT 98
[2021-12-31 05:33] LABS: Specific Gravity 1.024 (1.005-1.030); Urine Bilirubin NEGATIVE (Negative); Urine Blood Negative (Negative); Urine Clarity Clear (Clear); Urine Color Light-Yellow (Yellow); Urine Glucose 4+ (Over) (Negative); Urine Protein NEGATIVE (Negative); Urine Urobilinogen Normal (Normal); Urine pH 5.5 (5.0-7.0)
[2021-12-31] MEDS: METOPROLOL TAR 25 MG TAB PO SCH ×2 (05:54→15:37)
[2021-12-31 06:10] LABS: Absolute Lymphocytes (CBC) 1.7 K/uL (0.7-4.9); Hematocrit 36.7 % (36.0-45.0); Lymphocytes % 26.9 % (15.3-44.8); MCV 82.9 fL (80-100); MPV 7.4 fL (7.6-11.3); RBC Red Blood Cell Count 4.43 M/uL (3.86-4.86)
[2021-12-31 06:33] LABS: Phosphorus 3.8 mg/dL (2.5-4.9); Potassium 4.2 mmol/L (3.5-5.1); Thyroid Stimulating Hormone 1.41 uIU/mL (0.360-3.740); Troponin High Sensitivity 16.6 pg/mL (<58.9)
[2021-12-31] MEDS: INSULIN -REGULAR HUMAN 50 UNIT/0.5 ML ML SQ SCH ×3 (07:30→15:50)
[2021-12-31] MEDS ORDERED: ENOXAPARIN 40 MG/0.4 ML SQ SCH (09:00)
[2021-12-31] MEDS ORDERED: ASPIRIN EC 81 MG TAB PO SCH (09:00)
[2021-12-31 13:23] VITALS: TEMP 97
[2021-12-31] MEDS ORDERED: ALBUTEROL INHALER 60 PUFF/8 GM IH PRN (15:28)
[2021-12-31] MEDS ORDERED: NITROGLYCERIN 0.4 MG/TAB SL PRN (15:28)
[2021-12-31] MEDS ORDERED: ONDANSETRON 4 MG (ODT) TAB PO PRN (15:28)
[2021-12-31] MEDS ORDERED: HYDROCODONE PO PRN (15:28)
[2021-12-31] MEDS ORDERED: ACETAMINOPHEN PO PRN (15:28)
[2021-12-31] MEDS ORDERED: GABAPENTIN 300 MG CAP PO SCH (15:28)
[2021-12-31 15:40] VITALS: BP 171/65
[2021-12-31] MEDS ORDERED: HYDRALAZINE HCL 20 MG/ML VIAL IV ONE (17:20)
--- NOTE | 2021-12-31 20:14 | CON ---
Date of Consultation: 12/31/2021 Reason For Consultation: Chest pain. History Of Present Illness: This 61-year-old female with history of coronary artery disease status p ost cardiac stents, most recent stent was placed in April 2021, history of chronic kidney disease, hypertension, diabetes, rheumatoid arthritis presented with chest pain in the left side, radiates to the arm. Pain is sharp in nature and not related to exertion. No nausea, vomiting, or diarrhea. N o diaphoresis. Past Medical History: As outlined above in HPI. Medications: Refer to reconciliation sheet for detailed list. Allergies: SHE IS ALLERGIC TO IODINE. Family History: No premature coronary artery disease or cancer. Social History: Does not smoke or drink. Does not use any drugs. Review of Systems: All systems reviewed and are negative except for what as mentioned in HPI. Physical Examination: Vital Signs: Reviewed. HEENT: Pupils are equal and reactive to light. Intact eye movements. No JVD. No cervical lymphade nopathy. Neck: Supple. Thyroid is not enlarged. Lungs: Clear to auscultation bilaterally. No rhonchi, wheezing, or crackles. No accessory muscle u se. Heart: Regular rate and rhythm. No extra sounds. Abdomen: Soft, nontender. Bowel sounds positive. No organomegaly. No masses or hernia. No rigidi ty or rebound. Extremities: No edema, clubbing, or cyanosis. Intact pulses. Skin: No rashes. Neurologic: Alert, awake, and oriented x3. No acute focal deficits appreciated. Laboratory Data: Troponin 3 sets were negative. BUN is 24 and creatinine 1.0, down from 1.34. Assessment And Recommendations: 1.Chest pain is atypical, but she is known to have coronary artery disease. Cardiac enzymes are neg ative and the chest pain is resolved at this point. From Cardiology standpoint, this patient can be released and she can follow up as an outpatient for cardiac stress test and an echocardiogram. She i s to be released on aspirin, metoprolol and statin as well as Plavix and follow up next week to [facility] for stress test. 2.Acute renal failure due to dehydration, resolved. 3.Dyslipidemia. Continue statin. 4.Diabetes, uncontrolled. Discussed in details low-calorie diet and exercise and to resume medicati ons. SR/MODL Voice ID: [id number] Report ID: [id number]
[2021-12-31] MEDS ORDERED: METOPROLOL TARTRATE 25 MG PO SCH (21:00)
[2021-12-31] MEDS ORDERED: ATORVASTATIN CALCIUM 40 MG PO SCH (21:00)
[2022-01-01] MEDS ORDERED: HOME MED 1 EA UNK (Insulin Degludec [Tresiba] 100 UNIT/ML Vial) SQ SCH (08:00)
[2022-01-01] MEDS ORDERED: INSULIN ASPART 100 UNIT/ML SQ SCH (08:00)
[2022-01-01] MEDS ORDERED: HOME MED 1 EA UNK (Potassium Chloride [K-Dur] 10 MEQ Tab.Er.Prt) PO SCH (09:00)
[2022-01-01] MEDS ORDERED: TOFACITINIB CITRATE 11 MG PO SCH (09:00)
[2022-01-01] MEDS ORDERED: POTASSIUM CL SA 10 MEQ TAB PO SCH (09:00)
[2022-01-01] MEDS ORDERED: FUROSEMIDE 40 MG TABLET PO SCH (09:00)
[2022-01-01] MEDS ORDERED: ASPIRIN 81 MG PO SCH (09:00)
[2022-01-01] MEDS ORDERED: CLOPIDOGREL 75 MG TABLET PO SCH (09:00)
[2022-01-01] MEDS ORDERED: LOSARTAN POTASSIUM 50 MG TABLET PO SCH (09:00)
[2022-01-01] MEDS ORDERED: FOLIC ACID 1 MG TABLET PO SCH (09:00)
--- NOTE | 2022-01-01 16:57 | EKG ---
Test Date: 2021-12-30 Test Time: 18:17:00 [employer] Driller: JENNY MEASUREMENT RESULTS: Intervals: Rate: 71 GA: 148 QRSD: 82 QT: 418 QTc: 454 [place]: P: 58 GA: 148 QRS: -8 T: 29 INTERPRETIVE STATEMENTS: Normal sinus rhythm Cannot rule out Inferior infarct, age undetermined Cannot rule out Anterior infarct, age undetermined Abnormal ECG Compared to ECG 10/15/2021 18:36:56 No significant changes Electronically Signed On 01-01-22 16:54:10 CDT by Dany Mcdonald
[2022-01-06] MEDS ORDERED: METHOTREXATE 2.5 MG TAB PO SCH (09:00)
== END 2021-12-31 18:59 | disposition home or self-care (01) ==
LOC: ER 17:15 → ERHOLD 20:47 → 4TH 22:09
PROVIDERS: ADMIT Hospitalist; ATTEND Hospitalist
DX: R07.9 Chest pain, unspecified (principal); I25.110 Atherosclerotic heart disease of native coronary artery with unstable angina pectoris; N17.9 Acute kidney failure, unspecified; E11.9 Type 2 diabetes mellitus without complications; N18.32 Chronic kidney disease, stage 3b; E78.5 Hyperlipidemia, unspecified; I10 Essential (primary) hypertension; Z91.09 Other allergy status, other than to drugs and biological substances; Z82.49 Family history of ischemic heart disease and other diseases of the circulatory system; Z95.5 Presence of coronary angioplasty implant and graft; Z79.4 Long term (current) use of insulin; Z20.822 Contact with and (suspected) exposure to COVID-19
CPT/HCPCS: 93005; 85025 ×2; 80048 ×2; 36415; 83735 ×2; 84100; 85610; 80061; 82947 ×4; 84443; 81003; 83036; 84484 ×3; 83880; 71045; 96374; 99285; U0003; J0360; J1815 ×4; J1650; G0378 ×2

== ENCOUNTER 2022-02-05 12:01 | Emergency (ER) | payer BC, OTHER ==
--- OUTSIDE RECORDS SUMMARY | 2022-02-05 12:08 | XMS REPORT | Continuity of Care Document ---
:1960 Author Organization [facility] t Address [address] [place] [address] Care Team Providers Name Role Phone Carrie Costa ANP, Windows Security Engineer Primary Care Physician [phone] THEO DIGGS Attending Clinician Unavailable Trey Yu MD Attending Clinician Unavailable Kevin Meek Attending Clinician Unavailable CARMELINA CHAIDEZ Attending Clinician Unavailable Rocio Del [place] Attending Clinician CORDELL MANLEY Attending Clinician Unavailable Alvarado Estevez MD Attending Clinician Doctor Unassigned, [place] Attending Clinician Unavailable Alejandra Zeng Attending Clinician Unavailable ELISE PARKER Attending Clinician Unavailable TREY YU Attending Clinician Unavailable SHAHNAZ ANDRADE Attending Clinician Unavailable Иван RYAN, Shahnaz Frederick Attending Clinician ROCIO CAREY Attending Clinician Unavailable Dany Mcdonald Attending Clinician Unavailable ALVARADO ESTEVEZ Attending Clinician Unavailable KITTY MARIN Attending Clinician Unavailable Brianna RYAN, Rachel K.H. Attending Clinician ANY TOWNSEND Attending Clinician Unavailable Kristian PACAny Attending Clinician Ander HEARING HEALTHCARE PRACTITIONER, Kitty Attending Clinician RACHEL REED K.H. Attending Clinician Unavailable Lab, Ang - Db Attending Clinician Unavailable KATIA KAMARA Attending Clinician Unavailable Norm PRUITT, Kalpana Moyer Attending Clinician Unavailable Anh RYAN, Katia Jacob Attending Clinician Shailesh OLVERA, Della Arzola Attending Clinician Leo Dickinson DO Attending Clinician Renny Reardon MD Attending Clinician Riki RYAN, Tommy Maza Attending Clinician Nurse, [facility] Attending Clinician Unavailable Moi ADAMS, Amada Attending Clinician AMADA PRATER Attending Clinician Unavailable Pob, Adc Lab Main Attending Clinician Unavailable Justina OLVERA, Day Arzola Attending Clinician Unavailable ZEINA JO T Attending Clinician Unavailable ZEINA JO Attending Clinician Unavailable Flako Schwartz DO Attending Clinician Dm RYAN, Carmelina Attending Clinician Akash HEARING HEALTHCARE PRACTITIONER, Faith Attending Clinician FATIH LOPEZ Attending Clinician Unavailable ASHLEY BLUE Attending Clinician [...] Clinician Unavailable Alejandra Zeng Admitting Clinician Unavailable [facility] Admitting Clinician Unavailable Riki RYAN, Tommy Maza Admitting Clinician FAITH LOPEZ Admitting Clinician Unavailable Noah RYAN, Juana Admitting Clinician FLAKO ZELAYA Admitting Clinician Unavailable Payers Payer Name Policy Type Policy Number Effective Date Expiration Date S ource [employer] [place] - [id number] 2012 00:00:00 OUT OF STATE [facility] [id number] 2018 00:00:00 PLUS Problems Condition Condition Condition Status Onset Resolution Last Treating Co mments Source Name Details Category Date Date Treatment Clinician Date Colitis Colitis Disease Active 2020-03 Univers 1-07 ity of 00:00: [place] [facility] At risk At risk Disease Active 2020-03 Univers for falls for falls 1-07 ity of 00:00: 00 Medical Branch Mood [...] nivers stroke stroke 0-29 ity of 00:00: 00 Medical Branch Generalize Generalize Disease Active U nivers d pain d pain 9-24 ity of 00:00: 00 Medical Branch Chest pain Chest pain Disease Active 2019-03 U nivers due to CAD due to CAD 2-31 it y of 00:00: 00 Medical Branch Proliferat Proliferat Disease Active [...] ally from mellitus mellitus request for surgery [id number] Gastric Gastric Disease Active [facility]07 [facility] slippage slippage 00:00: Medica l 00 Center NSVT NSVT Disease Active Univers (nonsustai (nonsustai [...] mellitus mellitus 1-03 [facility] 00:00: Medical 00 [place] Colon Colon Disease Active 2016-03 Univers cancer cancer 1-16 ity of screening screening 00:00: a s Medical Branch Labial Labial Disease Active [...] Disease Active Overview : Univers d d 8-28 Formattin ity of osteoarthr osteoarthr 00:00: g of this [place] osis of osis of 00 note Medical hand hand might be Branch different from the original. ICD10 Diagnosis Term Pre School Teacher Utility Diabetic Diabetic Disease Active Unive rs [...] the ons ons original. ICD10 Diagnosis Term Pre School Teacher Utility Obesity Obesity Disease Active 2011-03 Overview: Univ ers 03-14 Formattin ity of 00:00: g of this 00 note Medical might be Branch different from the original. ICD10 Diagnosis Term Pre School Teacher Utility HLD HLD Disease Active 2011-03 Overview: Univer s (hyperlipi (hyperlipi 03-14 Formattin ity of demia) demia) 00:00: g of this 00 note Medical might be Branch different from the original. ICD10 Diagnosis Term Pre School Teacher Utility Elevated Elevated Disease Active 2011-03 Unive [...] different from the original. ICD10 Diagnosis Term Pre School Teacher Utility Chronic Chronic Disease Active Univers pain pain 5-18 ity of syndrome syndrome 00:00: Medical Branch Allergies, Adverse Reactions, Alerts Allergy Allergy Status Severity Reaction(s) Onset Inactive Treating Comm ents Source Name Type Date Date Clinician iodine DA Active [place] HIVES [facility] 5-11 Clear 00:00: Dutta 00 [facility] iodine DA Active [place] HIVES [facility] 2-28 Clear 00:00: Dutta 00 [facility] SHELLFIS DRUG Active Anaphylaxis Uni vers H INGREDI 1-14 ity of DERIVED 00:00: [place] [facility] Shellfis Propensi Active Anaphylaxis U nivers h ty to -14 ity of Derived adverse 00:00: [place] reaction 00 Medical s Branch Iodinate Propensi Active Hives [facility] to 03-13 [facility] Contrast adverse 00:00: Medical Media reaction 00 Center s Iodine Propensi Active Rash Univers And ty to 5-11 ity of Iodide adverse 00:00: [place] Containi reaction 00 Medica l ng s Branch Products IODINE Drug Active Rash Univers AND Class 5-11 ity of IODIDE 00:00: [place] CONTAINI 00 Medical NG Branch PRODUCTS Iodine Propensi Active Rash Other [facility] And ty to 5-11 reaction( [facility] Iodide adverse 00:00: s): Medical Containi reaction 00 Itching Cente r ng s and Products swelling IODINE DA Active U OK W/ 2003-0 [facility] CONTRAST BETADINE 8-24 Clear PREP 00:00: Dutta [facility] No Known DA Active U 2004-0 [facility] Drug 8-24 Clear Allergie 00:00: [facility] No Known DA Active U 2004-0 [facility] Other 8-24 Clear Allergie 00:00: Dutta s [facility] SHRIMP DA Active U 2004-0 [facility] 8-24 Clear 00:00: Dutta [facility] iodine DA Active U 2004-0 [facility] 2-10 Clear 00:00: [place] [facility] Family History Family Member Diagnosis Comments Start Date Stop Date Source Natural father Heart disease [facility] Natural mother Cancer [facility] es [facility] Social History Social Habit Start Date Stop Date Quantity Comments Source History [facility] Alcohol Comment Medical C enter History [facility] Alcohol Std Drinks Medica Center History [facility] Alcohol Binge Medical Jean ter Tobacco use and 2018-10-15 2018-10-[address] [facility] exposure 00:00:00 00:00:00 Medical Center Alcohol intake 2018-10-15 2018-10-[address] [facility] 00:00:00 00:00:00 non-drinker of Medical Ce nter alcohol (finding) History SDOH 2018-10-15 2018-10-[address] [facility] Alcohol Frequency 00:00:00 00:00:00 [facility] Center Sex Assigned At [address] [facility] 00:00:00 00:00:00 Medical Center Smoking Status Start Date Stop Date Source Never smoked tobacco [facility] Medications Ordered Filled Start Stop Current Ordering Indication Dosage Frequency Signature Comments Components Source Medication Medication Date Date Medication? Clinician (SIG) Name Name predniSONE Yes Univers 50 mg 4-12 ity of tablet 00:00: [place] 00 Medical Branch predniSONE Yes Univers 50 mg 4-12 ity of tablet 00:00: [place] [facility] methotrexat Yes TAKE 5 Univ ers e 2.5 mg 4-07 TABLETS BY ity o f tablet 00:00: MOUTH 1 TIME Medical WEEKLY Branch methotrexat Yes TAKE 5 Univ ers e 2.5 mg 4-07 TABLETS BY ity o f tablet 00:00: MOUTH 1 TIME Medical WEEKLY Branch TRESIBA Yes [id number] 26U INJECT 26 U nivers FLEXTOUCH 4-06 UNITS ity of U-100 100 00:00: UNDER THE [place] as unit/mL (3 00 SKIN Medical mL) InPn DAILY. MAX Branc h DAILY DOSE OF 40 UNITS TRESIBA Yes [id number] 26U INJECT 26 U nivers FLEXTOUCH 4-06 UNITS ity of U-100 100 00:00: UNDER THE [place] as unit/mL (3 00 SKIN Medical mL) InPn DAILY. MAX Branc h DAILY DOSE OF 40 UNITS atorvastati Yes 40mg Take 1 Univ ers n 40 mg 1-20 tablet by ity of tablet 00:00: mouth at [place] [address] bedtime. Medical Branch atorvastati Yes 40mg Take 1 Univ ers n 40 mg 1-20 tablet by ity of tablet 00:00: mouth at [place] [address] bedtime. Medical Branch gabapentin Yes [id number] 600mg Take 1 Univers 600 mg 1-07 tablet by ity of tablet 00:00: mouth 2 [place] (two) Medical times Branch daily. gabapentin 2021- Yes [id number] 600mg Take 1 Univers 600 mg 1-07 tablet by ity of tablet 00:00: mouth 2 [place] (two) Medical times Branch daily. ISOSORBIDE 2020-03 Yes [id number] 30mg TAKE 1 U nivers MONONITRATE 2-10 TABLET BY ity of 30 mg 24 hr 00:00: MOUTH [place] tablet 00 DAILY Medical Branch ISOSORBIDE 2020-03 Yes [id number] 30mg TAKE 1 U nivers MONONITRATE 2-10 TABLET BY ity of 30 mg 24 hr 00:00: MOUTH [place] tablet 00 DAILY Medical Branch insulin 2020-03 Yes [id number] INJECT 10 U nivers aspart 2-09 UNITS ity of U-100 00:00[facility] [place] (NOVOLOG 00 US BEFORE Medica l FLEXPEN EACH MEAL Branch U-100 AND INSULIN) SLIDING 100 unit/mL SCALE. MAX (3 mL) DAILY DOSE injection OF 40 UNITS insulin 2020-03 Yes [id number] INJECT 10 U nivers aspart 2-09 UNITS ity of U-100 00:00: SUBCUTANEO [place] (NOVOLOG 00 US BEFORE Medica l FLEXPEN [...] y of mg tablet 00:00: mouth 2 00 (two) Medical times Branch daily. Dextran 2020-03 Yes 1[drp] Place 1 Unive rs 70-Hypromel 0-29 Drop in ity o f lose 13:25: both eyes [place] (ARTIFICIAL 33 as needed. Me dical TEARS) [facility] Branch methotrexat 2020-03 Yes 20mg Take 20 mg Univers e 5 mg 0-29 by mouth ity of tablet 13:25: weekly. [address] Dextran 2020-03 Yes 1[drp] Place 1 Unive rs 70-Hypromel 0-29 Drop in ity o f lose 13:25: both eyes [place] (ARTIFICIAL 33 as needed. Me dical TEARS) [facility] Branch methotrexat 2020-03 Yes 20mg Take 20 mg Univers e 5 mg 0-29 by mouth ity of tablet 13:25: weekly. [address] foLIC acid 2020-03 Yes 1mg Take [...] of Branch methotrexa te DULoxetine 2020-03 Yes [id number] 20mg Take 1 U nivers 20 mg 0-29 capsule by ity of capsule 00:00: mouth [place] 00 every Medical morning. Branch DULoxetine 2020-03 Yes [id number] 20mg Take 1 U nivers 20 mg 0-29 capsule by ity of capsule 00:00: mouth [place] 00 every Medical morning. Branch empaglifloz 2020-03 Yes [id number] 1{tbl} Take 1 Univers in-metformi 0-11 tablet by ity of n (SYNJARDY 00:00: mouth [place] XR) 00 daily. Medical 25-1,000 mg Branch TBph Insulin 2020-03 Yes [id number] Use as Univ ers Gatzke, 0-11 directed 4 ity o f Disposable, 00:00: times [place] (PEN 00 daily. Medical NEEDLES) 31 E11.65 Branch gauge x 1/4" Ndle empaglifloz 2020-03 Yes [id number] 1{tbl} Take 1 Univers in-metformi 0-11 tablet by ity of n (SYNJARDY 00:00: mouth [place] XR) 00 daily. Medical 25-1,000 mg Branch TBph Insulin 2020-03 Yes [id number] Use as Univ ers Gatzke, 0-11 directed 4 ity o f Disposable, [...] 24 times Medical daily. Branch losartan 50 2021-0 Yes 50mg Take 50 mg Univers mg tablet 9-26 by mouth 2 ity of 17:16: (two) [place] 24 times Medical daily. Branch Blood-Gluco 2020-0 Yes [id number] Use as Univers se Sensor 8-04 directed ity of (DEXCOM G6 00:00: [place] SENSOR) 00 Medical Yolanda Branch Blood-Gluco 2020-0 Yes [id number] Use as Univers se 8-04 directed ity of Transmitter 00:00: [place] (DEXCOM G6 00 Medical TRANSMITTER Branch ) Yolanda Blood-Gluco 2020-0 Yes [id number] Use as Univers se 8-04 directed ity of Meter,Josué 00:00: [place] nuous 00 Medical (DEXCOM G6 Branch WOUND NURSE) Misc Blood-Gluco 2020-0 Yes [id number] Use as Univers se Sensor 8-04 directed ity of (DEXCOM G6 00:00: [place] SENSOR) 00 Medical Yolanda Branch Blood-Gluco 2020-0 Yes [id number] Use as Univers se 8-04 directed ity of Transmitter 00:00: [place] (DEXCOM G6 00 Medical TRANSMITTER Branch ) Yolanda Blood-Gluco 2020-0 Yes [id number] Use as Univers se 8-04 directed ity of Meter,Josué 00:00: [place] nuous 00 Medical (DEXCOM G6 Branch WOUND NURSE) Misc nitroglycer 2020-[id number] 1 Univers in 0.4 mg 1-01 tablet ity of sublingual 00:00: [place] the [place] tablet 00 tongue Medical every 5 Branch (five) minutes as needed for Chest pain. clopidogreL 2020-0 Yes [id number] 75mg Take 1 Univers (PLAVIX) 75 1-01 tablet by ity of mg tablet 00:00: mouth [place] 00 daily. Medical Branch aspirin 81 2020-0 Yes [id number] 81mg Take 1 Univers mg chewable 1-01 tablet by ity of tablet 00:00: mouth [place] 00 daily. Medical Branch nitroglycer 2020-[id number] 1 Univers in 0.4 mg 1-01 tablet ity of sublingual 00:00: [place] tablet 00 tongue Medical every 5 Branch (five) minutes as needed for Chest pain. clopidogreL 2020-0 Yes [id number] 75mg Take 1 Univers (PLAVIX) 75 1-01 tablet by ity of mg tablet 00:00: mouth [place] 00 daily. Medical Branch aspirin 81 2020-0 Yes [id number] 81mg Take 1 Univers mg chewable 1-01 tablet by ity of tablet 00:00: mouth daily. Medical Branch tofacitinib 2018-03 Yes [id number] 11mg Take 11 mg Univers (XELJANZ 2-18 by mouth ity of XR) 11 mg 00:00: daily. [place] [address] Medical Branch tofacitinib 2018-03 Yes [id number] 11mg Take 11 mg Univers (XELJANZ 2-18 by mouth ity of XR) 11 mg 00:00: daily. [place] [address] [facility] Branch insulin 2018- Yes 12U QD Inject 12 [facility] glargine 8-08 Units [facility] (LANTUS) 00:04: subcutaneo Med ical 100 unit/mL 52 usly Center injection nightly Use as directed . insulin Yes Inject [facility] aspart 8-08 subcutaneo [facility]ukes U-100 00:04: usly 3 Medical (NOVOLOG) 52 (three) Center 100 unit/mL times injection daily before meals. insulin 2018- Yes 12U QD Inject 12 [facility]I [facility] t glargine 8-08 Units [facility] (LANTUS) 00:04: subcutaneo Med ical 100 unit/mL 52 usly Center injection nightly Use as directed . insulin 2018- Yes Inject [facility] aspart 8-08 subcutaneo [facility]ukes U-100 00:04: usly 3 Medical (NOVOLOG) 52 (three) Center 100 unit/mL times injection daily before meals. insulin 2018- Yes 12U QD Inject 12 [facility] t glargine 8-08 Units [facility] (LANTUS) 00:04: subcutaneo Med ical 100 unit/mL 52 usly Center injection nightly Use as directed . insulin 2018-[address] [facility] aspart 8-08 subcutaneo [facility]ukes U-100 00:04: usly 3 Medical (NOVOLOG) 52 (three) Center 100 unit/mL times injection daily before meals. Immunizations Ordered Filled Immunization Date Status Comments [facility] e Immunization Name Name Influenza Virus 2021-01-08 Completed Universit y of Vaccine Quad IM, 00:00:00 [facility] dical Preserv and ABX Branch Free 6 MO-64 YRS Influenza Virus 2021-01-08 Completed Universit y of Vaccine Quad IM, 00:00:00 [facility] dical Preserv and ABX Branch Free 6 MO-64 YRS Influenza Virus 2019-11-12 Completed Universit y of Vaccine 00:00:00 [facility] Influenza Virus 2019-11-12 Completed Universit y of Vaccine 00:00:00 [facility] Zoster Vaccine 2019-03-25 Completed University of Recombinant 00:00:00 [facility] Zoster Vaccine 2019-03-25 Completed University of Recombinant 00:00:00 [facility] Zoster Vaccine 2019-01-18 Completed University of Recombinant 00:00:00 [facility] Zoster Vaccine 2019-01-18 Completed University of Recombinant 00:00:00 [facility] Procedures Procedure Date / Time Performed Performing Clinician [facility] tyrone [id number] 2021-06-24 00:00:00 CHAAB.01 [facility] [id number] 2021-06-24 00:00:00 CHAAB.01 [facility] [id number] 2021-06-24 00:00:00 CHAAB.01 [facility] [id number] 2021-06-24 00:00:00 CHAAB.01 [facility] [id number] 2021-06-24 00:00:00 CHAAB.01 [facility] [id number] 2021-06-24 00:00:00 CHAAB.01 [facility] [id number] 2021-06-23 00:00:00 RASSA [facility] [id number] 2021-06-23 00:00:00 RASSA [facility] [id number] 2021-06-23 00:00:00 RASSA [facility] [id number] 2021-06-23 00:00:00 RASSA [facility] [id number] 2021-06-23 00:00:00 RASSA [facility] [id number] 2021-06-23 00:00:00 RASSA [facility] Plan of Care Planned Activity Planned Date Details Comments Source Future Scheduled 2021-11-[address] [facility] Test 00:00:00 (Season Ended) [code = Medic ms Center INFLUENZA VACCINE (Season Ended)] Future Scheduled [...] [facility] 00:[facility]:00 measurement (procedure) [facility] [code = 66018945] Future Scheduled 2019-01-[address] [facility] Test 00:00:00 measurement (procedure) [facility] [code = 77600330] Future Scheduled 2012 SHINGLES VACCINES ([address] [facility] Test 00:00:00 2) [code = SHINGLES [facility] VACCINES (1 of 2)] Future Scheduled 2012 SHINGLES VACCINES ([address] [facility] Test 00:00:00 2) [code = SHINGLES [facility] VACCINES (1 of 2)] Future Scheduled 2007 Lipid panel (procedure) [facility] Test 00:00:00 [code = 87280574] Medical Ce nter Future Scheduled 2007 Lipid panel (procedure) [facility] Test 00:00:00 [code = 87802195] Medical Ce nter Future Scheduled 1983 Screening for malignant [facility] Test 00:00:00 neoplasm of cervix Medical C enter (procedure) [code = 695237884] Future Scheduled 1983 Screening for malignant [facility] Test 00:00:00 neoplasm of cervix Medical C enter (procedure) [code = 519390950] Future Scheduled 1981 DTAP/TDAP/TD VACCINES CH I [...] 00:00:00 examination Medical Center (regime/therapy) [code = 243624095] Future Scheduled 1972 Urine screening for [facility] Test 00:00:00 protein (procedure) Medical Center [code = 273943469] Future Scheduled 1972 DIABETIC EYE EXAM [code [facility] Test 00:00:00 = DIABETIC EYE EXAM] Medical Center Future Scheduled [address] [facility] Test 00:00:00 examination Medical Center (regime/therapy) [code = 234210259] Future Scheduled 1972 Urine screening for [facility] Test 00:00:00 protein (procedure) Medical Center [code = 209043871] Future Scheduled [address] [...] breast Medical C enter (procedure) [code = 470567276] Future Scheduled 1962 Screening for malignant [facility] Test 00:00:00 neoplasm of colon Medical Ce nter (procedure) [code = 778470517] Future Scheduled 1962 Screening for malignant [facility] Test 00:00:00 neoplasm of breast Medical C enter (procedure) [code = 270996846] Future Scheduled 1962 CT Colonography (combo) [facility] Test 00:00:00 [code = CT Colonography [facility] (combo)] Future Scheduled 1962 Screening for malignant [facility] Test 00:00:00 neoplasm of colon Medical Ce nter (procedure) [code = 021143569] Future Scheduled 1962 Screening for malignant [facility] Test 00:00:00 neoplasm of colon Medical Ce nter (procedure) [code = 730658136] Future Scheduled 1962 Screening for malignant [facility] Test 00:00:00 neoplasm of colon Medical Ce nter (procedure) [code = 607062920] Future Scheduled 1962 Screening for malignant [facility] Test 00:00:00 neoplasm of colon Medical Ce nter (procedure) [code = 142869472] Future Scheduled 1960 Sigmoidoscopy [code = [facility] Test 00:00:00 Sigmoidoscopy] Medical Nesha r Encounters Start End Encounter Admission Attending Care Care Encounter Source Date/Time Date/Time Type Type Clinicians Facility Department ID 2021-01-12 Emergency [facility] [id number] Univers 01:13:37 ity [facility] 2021-01-09 Emergency [facility] [id number] Univers 14:10:03 [facility] [place] [facility] 2022-01-19 2022-01-19 [id number] Univers 14:15:00 14:15:00 THEO [facility] [place] [facility] 2021-11-01 2021-11-01 [facility] [id number] Univers 00:00:00 00:00:00 Helpr [id number] it y of [place] [id number] [place] as HECTOR?BLEA [id number] Nc dayanara BENNETT [address] [place] MEDICAL OFFICE [facility] 2021-09-24 2021-09-24 Telephone [facility] [id number] Univers 00:00:00 00:00:00 Trey HEALTH [id number] it y of [place] [id number] [place] as HECTOR?BLEA [id number] Nc dayanara [facility] 220 [facility] OFFICE [facility] 2021-07-21 2021-07-23 Inpatient JAMES PenaCL INTE [id number] [facility] 05:18:00 16:56:00 [place] 20 [facility] 2021-07-13 2021-07-13 Outpatient Cristo CHAIDEZ [facility] [id number] Univers 10:00:00 10:00:00 [facility] 2021-07-13 2021-07-13 Outpatient Cristo CHAIDEZ [facility] [id number] Univers 10:00:00 10:00:00 [facility] 2021-07-06 2021-07-06 [facility]phone [facility] [id number] Univers 00:00:00 00:00:00 Rocio A HEALTH [id number] i ty of [place] [id number] [place] as HECTOR?BLEA [id number] [facility] [address] 2021-07-05 2021-07-05 Outpatient CORDELL KAUR [facility] [id number] Univers 13:30:00 13:30:00 [facility] [place] [facility] 2021-07-02 2021-07-02 Telephone [facility] [id number] Univers 00:00:00 00:00:00 Wondiful A HEALTH [id number] ity of [place] [id number] [place] as HECTOR?BLEA [id number] [facility] [address] OFFICE [facility] 2021-07-02 2021-07-02 Orders Doctor RAMIREZ [id number] Univers 00:00:00 00:00:00 Only Unassigned, MCKENNA 350.1.13.10 ity of [place] [facility] [id number] [place] as [id number] [facility] 009 Branch 2021-06-23 2021-06-30 Inpatient JAMES GarciaCL INTE.02 [id number] [facility] 14:22:00 12:30:00 Alejandra 58 [facility] 2021-06-29 2021-06-29 Outpatient R KEITH [facility] [id number] Univers 14:00:00 14:00:00 ELISE [facility] [place] [facility] 2021-06-21 2021-06-21 Outpatient [facility] [id number] Univers 14:30:00 [facility]:30[facility] 2021-06-16 2021-06-16 [facility] [id number] Univers 00:00:00 00:00:00 Trey PADRON [id number] i ty of [place] [id number] [place] [facility] [id number] Nc dical [facility] 220 Branch [facility] 2021-06-11 2021-06-11 Outpatient R ИВАН [facility] [id number] Univers 09:30:00 09:58:55 SHAHNAZ [facility] [place] [facility] 2021-06-11 2021-06-11 Office [facility] [id number] Univers 09:30:00 09:58:[address] [facility] 350.1.13.10 i ty of [place] 4[place]2.7.2.686 [place] [id number] [facility] 136 Branch 2021-06-11 2021-06-11 Orders Doctor ASHLEY [id number] Univers 00:00:00 00:00:00 Only Unassigned, MCKENNA 350.1.13.10 ity of [place] [facility] 4.2.7.2.686 Vickey as [id number] [facility] 009 Branch 2021-05-24 2021-05-24 Orders Doctor ASHLEY [id number] Univers 00:00:00 00:00:00 Only Unassigned, MCKENNA 350.1.13.10 ity of [place] [facility] 4.2.7.2.686 [place] as [id number] [address] 2021-05-21 2021-05-21 Outpatient R FELISA [facility] [id number] Univers 11:00:00 10:56:49 ROCIO ity [facility] 2021-05-10 2021-05-10 Inpatient LU[facility] ALBERT[facility]cd[facility] [id number] [facility] 13:09:00 13:09:00 Dany 14 [facility] 2021-05-04 2021-05-04 [facility] [id number] Univers 14:15:00 14:15:00 WONDIFUL ity o f [facility] 2021-04-27 2021-04-27 Telephone [facility] 1.2.840.114 [id number] Univers 00:00:00 00:00:00 Wondiful A HEALTH 350.1.13.10 ity of [place] 4.2.7.2.686 Vickey as HECTOR?BLEA [phone] [address] MEDICAL OFFICE BUILDING 2021-04-26 2021-04-26 Orders Doctor ASHLEY 1.2.840.114 [id number] Univers 00:00:00 00:00:00 Only Unassigned, MCKENNA 350.1.13.10 ity of [place] [facility] 4.2.7.2.686 Vickey as [phone] [address] 2021-04-20 2021-04-20 Outpatient [facility] [id number] Univers 14:30:00 14:30:00 [facility] 2021-04-20 2021-04-20 Outpatient Cristo [facility] [id number] Univers 14:30:00 14:30:00 KITTY [facility] 2021-04-16 2021-04-16 Orders Doctor RAMIREZ 1.2.840.114 [id number] Univers 00:00:00 00:00:00 Only Unassigned, MCKENNA 350.1.13.10 ity of [place] [facility] 4.2.7.2.686 Vickey as [phone] [address] 2021-04-14 2021-04-14 Outpatient R ИВАН [facility] [id number] Univers 10:30:00 10:30:00 SHAHNAZ ity [facility] 2021-03-30 2021-03-[address] [facility] 1.2.840.114 [id number] Univers 00:00:00 00:00:00 Rachel PADRON 350.1.13.10 ity of [place] [phone] N[place] dicms NAL [address] [place] [address] 2021-03-26 2021-03-26 [facility] 1.2.840.114 [id number] Univers 00:00:00 00:00:00 Rachel PADRON 350.1.13.10 ity of [place] [phone] [address] 2021-03-23 2021-03-23 Outpatient [facility] [id number] Univers 10:22:10 23:59:00 [facility] 2021-03-23 2021-03-23 [facility] 1.2.840.114 [id number] Univers 10:22:10 23:59:00 Encounter Any S HEALTH 350.1.13.10 ity of [place] 4.2.7.2.686 [place] as HECTOR?BLEA [phone] [facility] DONALD 809 [facility] OFFICE [facility] 2021-03-23 2021-03-23 Office [facility] 1.2.840.114 [id number] Univers 10:30:00 10:45:00 Visit Any S HEALTH 350.1.13.10 it y of [place] 4.2.7.2.686 Vickey as HECTOR?BLEA [id number] [facility] 198 [facility] OFFICE [facility] 2021-03-23 2021-03-23 Outpatient [facility] [id number] Univers 10:30:00 10:30:00 ANY ity of [facility] 2021-03-23 2021-03-23 Telephone [facility] 1.2.840.114 [id number] Univers 00:00:00 00:00:00 Wondiful A HEALTH 350.1.13.10 ity of [place] 4.2.7.2.686 Vickey as HECTOR?BLEA [id number] [facility] 044 [facility] OFFICE [facility] 2021-03-19 2021-03-19 Referin [facility] 1.2.840.114 [id number] Univers 00:00:00 00:00:00 Kitty HEALTH 350.1.13.10 it y of [place] 4.2.7.2.686 Vickey as HECTOR?BLEA [id number] [facility] 220 [facility] 2021-02-22 2021-02-22 Telephone [facility] 1.2.840.114 [id number] Univers 00:00:00 00:00:00 Wondiful A HEALTH 350.1.13.10 ity of [place] 4.2.7.2.686 Vickey as HECTOR?BLEA [phone] [facility] 044 [facility] 2021-02-17 2021-02-17 Arthur Reed [facility] 1.2.840.114 [id number] Univers 00:00:00 00:00:00 Rachel PADRON 350.1.13.10 ity of [facility] 4.2.7.2.686 [place] [phone] [facility] 059 [facility] 2021-02-13 2021-02-13 Referin Yu [facility] 1.2.840.114 [id number] Univers 00:00:00 00:00:00 Trey PADRON 350.1.13.10 i ty of [facility] 4.2.7.2.686 [place] [phone] [facility] NAL 220 [facility] 2021-02-08 2021-02-08 Referin Reed [facility] 1.2.840.114 [id number] Univers 00:00:00 00:00:00 Sendil Armida PADRON 350.1.13.10 ity of [facility] 4.2.7.2.686 [place] MELYSSA [phone] Nc dical NAL 0[address] Branch [facility] 2021-01-25 2021-01-25 Outpatient R ZENAIDA [facility] [id number] Univers 00:00:00 00:00:00 WONDIFUL ity o f [facility] 2021-01-25 2021-01-25 Outpatient R ZENAIDA [facility] [id number] Univers 00:00:00 00:00:00 WONDIFUL ity o f [facility] 2021-01-12 2021-01-12 Outpatient R DM [facility] [id number] Univers 08:15:00 08:15:00 TOUKA [facility] 2021-01-08 2021-01-08 Outpatient R ZENAIDA [facility] [id number] Univers 13:30:00 14:58:08 WONDIFUL ity o f [facility] 2021-01-08 2021-01-08 Office [facility] 1.2.840.114 [id number] Univers 12:14:31 14:58:08 Visit Wondiful A HEALTH 350.1.13.10 ity [facility] 4.2.7.2.686 Vickey as HECTOR?BLEA [phone] Nc dical KNEY [address] [place] MEDICAL OFFICE BUILDING 2021-01-08 2021-01-08 Outpatient R ZENAIDA [facility] [id number] Univers 13:30:00 13:30:00 WONDIFUL ity o f [facility] 2020-12-23 2020-12-23 Outpatient R BRIANNA [facility] [id number] Univers 08:15:00 08:15:00 [facility] 2020-12-21 2020-12-21 Insurance Examiner Lab, Ang - Quinn [facility] 1.2.840.1 14 [id number] Univers 16:23:32 16:38:32 Visit Trey Yu Health 350.1.13.10 ity of [place] 4.2.7.2.686 [place] as Hector?Blea [phone] Me dicpolina field [address] [place] Medical Office [facility] 2020-12-21 2020-12-21 Office [facility] 1.2.840.114 [id number] Univers 15:39:24 16:09:24 Visit [facility] 350.1.13.10 it y of [place] 4.2.7.2.686 [place] as Hector?Blea [phone] Me dicpolina bennett 220 [facility] Office [facility] 2020-12-21 2020-12-21 Outpatient R GIGI [facility] [id number] Univers 15:30:00 15:30:00 [facility] 2020-12-21 2020-12-21 Outpatient R GIGI [facility] [id number] Univers 12:00:00 12:00:00 [facility] 2020-12-15 2020-12-15 Outpatient [facility] [id number] Univers 09:20:00 09:20:00 [facility] 2020-12-10 2020-12-10 Ancillary Kalpana Zheng [facility] 1.2.840. 114 [id number] Univers 08:47:26 10:21:51 Visit Katia Kamara 350.1.13.10 ity [place].2.7.2.[place] [phone] Nc dayanara [facility] 179 [facility] 2020-12-10 2020-12-10 Outpatient R ANH [facility] [id number] Univers 09:00:00 09:00:00 [facility] 2020-12-08 2020-12-08 Transition Clint Cash 1.2.840.114 [id number] Univers 00:00:00 00:00:00 of Care Della Patricio 350.1.13.10 i ty of [place].7.2.[place] [phone] [address] 2020-12-04 2020-12-06 Hospital Leo Dickinson 1.2.840.1 14 [id number] Univers 14:09:00 15:50:00 Encounter Renny Reardon Mckenna 350.1.13. 10 ity of [place] Tommy [facility] 4.2.7.2.686 [place] [phone] [facility] 0[address] [place] 2020-12-04 2020-12-04 Nurse Nurse, [facility] 1.2.840.114 [id number] Univers 13:21:56 13:41:56 Visit [facility] 350.1.13.10 ity of [place] 4.2.7.2.686 Vickey as Hector?Blea [phone] [address] Medical Office [facility] 2020-12-04 2020-12-04 Outpatient R [facility] [id number] Univers 13:30:00 13:30:00 AMADA ity [facility] 2020-12-03 2020-12-03 Office [facility] 1.2.840.114 [id number] Univers 09:41:40 10:25:13 Visit Rachel Padron 350.1.13.10 ity [facility] 4.2.7.2.[place] [phone] [address] 2020-12-03 2020-12-03 Outpatient [facility] [id number] Univers 10:00:00 10:00:00 [facility] 2020-10-29 2020-10-29 Outpatient R [facility] [id number] Univers 16:40:00 16:40:00 AMADA ity [facility] 2020-10-07 2020-10-07 Telephone [facility] 1.2.225.396 [id number] Univers 00:00:00 00:00:00 Rachel Padron 350.1.13.10 ity of [place] 4.2.7.2.[place] [id number] [address] 2020-10-07 2020-10-07 Telephone [facility] 1.2.268.375 [id number] Univers 00:00:00 00:00:00 Rachel Padron 350.1.13.10 ity of [place].2.7.2.[place] [phone] Nc dical nal 059 [facility] 2020-10-02 2020-10-02 Insurance Examiner Delroy, Adc Lab Main [facility] 1.2.8 40.114 [id number] Univers 09:03:52 09:18:52 Visit Rachel Reed 350.1.13. 10 ity of [place] 4.2.7.2.[place] [phone] [facility] 353 [facility] 2020-10-02 2020-10-02 Outpatient [facility] [id number] Univers 08:00:00 08:00:00 SENDIL ity [facility] 2020-09-22 2020-09-22 Outpatient R BRIANNA [facility] [id number] Univers 09:00:00 09:00:00 SENDIL ity [facility] 2020-09-14 2020-09-14 Telephone [facility] 1.2.938.415 [id number] Univers 00:00:00 00:00:00 Rachel Padrno 350.1.13.10 ity of [place] 4.2.7.2.686 [place] [phone] [facility] 059 [facility] 2020-09-14 2020-09-14 Telephone [facility] 1.2.840.114 [id number] Univers 00:00:00 00:00:00 Trey Padron 350.1.13.10 i ty of [place] 4.2.7.2.686 [place] [phone] Nc dical nal 220 [facility] 2020-09-01 2020-09-01 Nurse Day Horn 1.2.840.114 [id number] Univers 00:00:00 00:00:00 Triage MCKENNA 350.1.13.10 it y of [facility] 4.2.7.2.686 Vickey as [id number] [address] 2020-08-31 2020-08-31 Outpatient R GIGI [facility] [id number] Univers 11:30:00 11:30:00 TREY itluan [facility] 2020-08-31 2020-08-31 Office Gigi [facility] 1.2.840.114 [id number] Univers 10:23:44 11:20:14 Visit Trey Marcin 350.1.13.10 i ty [facility] 4.2.7.2.[place] [phone] Nc dical nal 220 [facility] 2020-08-25 2020-08-25 Office [facility] 1.2.840.114 [id number] Univers 10:33:27 11:05:58 Visit Rachel ArceGhassanNikoGhassan Padron 350.1.13.10 ity of [place] 4.2.7.2.686 [place] [phone] Nc dical nal 059 [facility] 2020-08-25 2020-08-25 Outpatient R BRIANNA [facility] [id number] Univers 11:00:00 11:00:00 SENDIL ity [facility] 2020-08-21 2020-08-21 Orders Doctor ASHLEY 1.2.840.114 [id number] Univers 00:00:00 00:00:00 Only Unassigned, MCKENNA 350.1.13.10 ity of [place] [facility] 4.2.7.2.686 Vickey as [phone] [facility] [address] [place] 2020-08-12 2020-08-12 Outpatient R ZEINA JO [facility] [id number] Univers 11:30:00 11:30:00 [facility] 2020-07-28 2020-07-28 Refill Doctor ASHLEY 1.2.840.114 [id number] Univers 00:00:00 00:00:00 Unassigned, MCKENNA 350.1.13.10 ity of [place] [facility] 4.2.7.2.686 Vickey as [phone] [facility] 0[address] [place] 2020-06-25 2020-06-25 Office Brianna [facility] 1.2.840.114 [id number] Univers 13:33:34 14:36:23 Visit Sendhilary Padron 350.1.13.10 ity [place] 4.2.7.2.686 [place] [phone] Nc dicms nal 059 [facility] 2020-06-25 2020-06-25 Outpatient R BRIANNA [facility] [id number] Univers 14:00:00 14:00:00 SENDIL ity [facility] 2020-06-08 2020-06-08 Out[facility] [id number] Univers 10:00:00 10:00:00 [facility] 2020-06-01 2020-06-01 Refill [facility] 1.2.840.114 [id number] Univers 00:00:00 00:00:00 Sendil Armida Padron 350.1.13.10 ity [place].2.7.2.[place] [phone] [place] 915709 [facility] 2020-05-23 2020-05-23 Patient [facility] 1.2.840.114 [id number] Univers 00:00:00 00:00:00 Outreach Flako PIERCE 350.1.13.10 i ty [facility] 4.2.7.2.[place] [phone] [address] 2020-05-18 2020-05-18 Outpatient R DM [facility] [id number] Univers 10:00:00 10:00:00 TOUKA ity [facility] 2020-05-11 2020-05-11 Office Dm [facility] 1.2.840.114 [id number] Univers 09:25:48 11:23:17 Visit Tomaggy MULTISPEC 350.1.13.10 ity [facility] 4.2.7.2.686 [place] CENTER [id number] [facility] AND [facility] [address] [place] [facility] 2020-05-11 2020-05-11 Outpatient R [facility] [id number] Univers 09:30:00 09:30:00 ity of [facility] 2020-05-11 2020-05-11 Orders Doctor ASHLEY 1.2.840.114 [id number] Univers 00:00:00 00:00:00 Only Unassigned, MCKENNA 350.1.13.10 ity [facility] 4.2.7.2.686 Vic[place] as [id number] [facility] [address] [place] 2020-04-27 2020-04-27 Out[facility] [id number] Univers 10:30:00 10:30:00 SENDIL [facility] 2020-04-22 2020-04-22 Orders Doctor ASHLEY 1.2.840.114 [id number] Univers 00:00:00 00:00:00 Only Unassigned, MCKENNA 350.1.13.[address] [facility] 4.2.7.2.686 [place] as [phone] [address] 2020-03-26 2020-03-26 Emergency [facility] 1.2.840.114 [id number] 11:51:00 18:13:00 Faith Padron 350.1.13.10 [place] 4.2.7.2.686 [place] [phone] [id number] 2020-03-26 2020-03-[address] [facility] [id number] Univers 11:51:00 18:13:00 FAITH [facility] 2020-03-26 2020-03-26 Emergency [facility] 1.2.840.114 [id number] Univers 11:51:00 18:13:00 Faith Padron 350.1.13.10 i ty of [place] 4.2.7.2.686 [place] [facility] [phone] [place] [address] [place] 2020-03-26 2020-03-26 Telephone [facility] 1.2.843.721 [id number] 00:00:00 00:00:00 Rachel Padron 350.1.13.10 [place] 4.2.7.2.686 Professio [phone] nal 059 [facility] 2020-03-26 2020-03-26 Telephone Brianna [facility] 1.2.372.499 [id number] Univers 00:00:00 00:00:00 Sendhilary Padron 350.1.13.10 ity of [place] 4.2.7.2.686 [place] [phone] Nc dic[address] 2020-03-19 2020-03-19 Outpatient R ASHLEY BLUE [facility] [id number] Univers 10:30:00 10:30:00 ity of [facility] 2020-03-16 2020-03-16 [facility] 1.2.840.114 [id number] 08:45:41 09:51:05 Visit Rachel Padron 350.1.13.10 [place] 4.2.7.2.686 Professio [phone] [address] 2020-03-16 2020-03-16 Office [facility] 1.2.840.114 [id number] [facility] 08:45:41 09:51:05 Visit Rachel Padron 350.1.13.10 ity of [place] 4.2.7.2.[place] [phone] [address] 2020-03-16 2020-03-16 Outpatient R BRIANNA [facility] [id number] Univers 09:00:00 09:00:00 SENDIL ity [facility] 2020-03-16 2020-03-16 Transition Clint Cash 1.2.840.114 [id number] Univers 00:00:00 00:00:00 of Care Della Patricio 350.1.13.10 i ty of [place] 4.2.7.2.686 [place] [phone] [facility] [address] [place] 2020-03-16 2020-03-16 Orders Doctor ASHLEY 1.2.840.114 [id number] Univers 00:00:00 00:00:00 Only Unassigned, MCKENNA 350.1.13.10 ity of [place] [facility] 4.2.7.2.686 Vickey as [id number] [facility] [address] 2020-03-162020-03-16 Orders Doctor RAMIREZ 1.2.840.114 [id number] 00:00:00 00:00:00 Only Unassigned, MCKENNA 350.1.13.10 [place] [facility] 4.2.7.2.686 [id number] 009 2020-03-12 2020-03-13 [facility] Kenyon Marah Glaser 1.2.84 0.114 [id number] Univers 19:23:00 18:35:00 Encounter Juana Zamora Mckenna 350.1.13.10 ity of Hospital 4.2.7.2.686 Vickey as [id number] [facility] [address] 2020-03-12 2020-03-12 Hospital Radiology [facility] 1.2.840.114 [id number] Univers 15:49:15 19:22:00 Encounter Marcin 350.1.13.10 ity of [place] 4.2.7.2.686 [place] [facility] [phone] [facility] 8[address] 2020-03-12 2020-03-12 Outpatient R RADIOLOGY [facility] [id number] Univers 16:00:00 16:00:00 ity of [facility] 2020-03-09 2020-03-09 Office Carmelina Chaidez [facility] 1.2.840.114 [id number] Univers 08:27:34 09:11:09 Visit Joana Dean MULTISPEC 350.1.13. 10 ity of [place] 4.2.7.2.68 6 [facility] [phone] [facility] [place] [address] [facility] 2020-03-09 2020-03-09 Outpatient R [facility] [id number] Univers 08:45:00 08:45:00 ity of [facility] 2020-03-09 2020-03-09 Orders Doctor RAMIREZ 1.2.840.114 [id number] Univers 00:00:00 00:00:00 Only Unassigned, MCKENNA 350.1.13.10 ity of [place] [facility] 4.2.7.2.686 Vickey as [id number] [facility] [address] 2020-03-03 2020-03-03 Office Иван [facility] 1.2.840.114 [id number] Univers 09:55:25 11:39:09 Visit Shahnaz Frederick MULTISPEC 350.1.13.10 ity of [place] 4.2.7.2.686 [place] CENTER [phone] [facility] [address] [place] [facility] 2020-03-03 2020-03-03 Out[facility] [id number] Univers 10:00:00 10:00:00 SHAHNAZ [facility] 2020-01-16 2020-01-16 Outpatient [facility] [id number] Univers 14:30:00 14:30:00 ANY [facility] 2019-12-25 2019-12-25 Outpatient [facility] [id number] Univers 09:00:00 09:00:00 SHAHNAZ [facility] 2019-11-25 2019-11-25 Outpatient [facility] [id number] Univers 11:00:00 11:00:00 KEVEN [facility] 2019-10-24 2019-10-24 Outpatient R [facility] [id number] Univers 09:45:00 09:45:00 [facility] 2019-09-23 2019-09-23 [facility]erin [facility] 1.2.840.114 [id number] Univers 00:00:00 00:00:00 Gee Arzola MULTISPEC 350.1.13.10 ity of [place] 4.2.7.2.686 [facility] [id number] [address] [facility] 2019-08-20 2019-08-20 Outpatient [facility] [id number] Univers 09:40:00 09:40:00 GEE [facility] 2019-08-15 2019-08-15 Telephone [facility] 1.2.840.114 [id number] Univers 00:00:00 00:00:00 Gee Arzola PRIMARY 350.1.13.10 ity of [place]2.7.2.[place] [phone] [address] 2019-05-21 2019-05-21 Insurance Examiner Pcp-Lab [facility] 1.2.840.114 [id number] Univers 09:36:08 10:22:44 Visit Gee Gasca PRIMARY 350.1.13.10 ity of C[place] 4.2.7.2.686 [place] [phone] N[place] dical [address] 2019-05-21 2019-05-21 Office Campos [facility] 1.2.840.114 [id number] Univers 09:05:30 09:34:34 Visit Gee Arzola PRIMARY 350.1.13.10 ity of C[place] 4.2.7.2.686 [place] [id number] [place] dical [address] [place] 2019-05-21 2019-05-21 Outpatient R CAMPOS [facility] [id number] Univers 09:20:00 09:20:00 GEE ity of [facility] 2019-05-13 2019-05-13 Refill [facility] 1.2.840.114 [id number] Univers 00:00:00 00:00:00 Gee Arzola PRIMARY 350.1.13.10 ity of C[place] 4.2.7.2.686 [place] [phone] [place] dical 0[address] [place] 2018-09-10 2018-09-10 Patient Doctor ASHLEY 1.2.840.114 [id number] Univers 00:00:00 00:00:00 Secure Msg Unassigned, MCKENNA 350.1.13.10 ity of [place] [facility] 4.2.7.2.686 Vickey as [phone] [facility] [address] Orders Doctor ASHLEY 1.2.840.114 [id number] Univers 00:00:00 00:00:00 Only Unassigned, MCKENNA 350.1.13.10 ity of [place] [facility] 4.2.7.2.686 Vickey as [phone] [facility] [address] [place] Results Test Description Test Time Test Comments Results Result Comments Source GLUCOSE BEDSIDE 2021-07-23 20:43:00 Test Item Value Reference Range Interpretation Comme nts GLUCOSE BEDSIDE (test code = 238 MG/DL 70-110 H Performed by certified 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 [facility]) [facility] GLUCOSE [id number] 11:42:00 Test Item Value Reference Range Interpretation Comments GLUCOSE BEDSIDE (test 240 MG/DL 70-110 H [facility] by certified code = JACKY) 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 [facility] BASIC METABOLIC [id number] 11:01:00 Test Item Value Reference Range Interpretation [...] code = 7.9 mg/dL 8.0-10.5 L CA) [id number] 11:01:00 Test Item Value Reference Range Interpretation Comments PHOSPHOROUS (test code = PHOS) 2.4 MG/DL 2.5-4.9 L [id number] 11:01:00 Test Item Value Reference Range Interpretation Comments MAGNESIUM (test code = MAG) 1.89 mg/dL 1.80-2.40 CALCIUM [id number] 11:01:00 Test Item Value Reference Range Interpretation Comments CALCIUM IONIZED (test code = RYLEE) 1.15 MMOL/L 1.12-1.32 N GLUCOSE [id number] 08:02:00 Test Item Value Reference Range Interpretation Comments GLUCOSE BEDSIDE (test 183 MG/DL 70-110 H [facility] by certified code = JACKY) 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 [facility] CBC W/AUTO [id number] 05:11:00 Test Item Value Reference Range Interpretation [...] REQUIRED (test code NO = MDIFF) GLUCOSE [id number] 20:13:00 Test Item Value Reference Range Interpretation Comments GLUCOSE BEDSIDE (test 251 MG/DL 70-110 H [facility] med by certified code = GLUBED) 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 [facility] CBC W/AUTO [id number] 15:36:00 Test Item Value Reference Range Interpretation [...] 0.00 x10 3/uL 0.0-0.1 N NRBC#) GLUCOSE [id number] 11:15:00 Test Item Value Reference Range Interpretation Comments GLUCOSE BEDSIDE (test 148 MG/DL 70-110 H [facility] by certified code = GLUBED) 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 [facility] GLUCOSE [id number] 06:11:00 Test Item Value Reference Range Interpretation Comments GLUCOSE BEDSIDE (test 106 MG/DL 70-110 N [facility] by certified code = GLUBED) 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 [facility] BASIC METABOLIC [id number] 05:29:00 Test Item Value Reference Range Interpretation [...] code = 8.6 mg/dL 8.0-10.5 N CA) [id number] 05:29:00 Test Item Value Reference Range Interpretation Comments MAGNESIUM (test code = MAG) 2.54 mg/dL 1.80-2.40 H GLUCOSE [id number] 05:19:00 Test Item Value Reference Range Interpretation Comments GLUCOSE BEDSIDE (test 118 MG/DL 70-110 H Perfor med by certified code = GLUBED) 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 [facility] CBC W/AUTO [id number] 05:11:00 Test Item Value Reference Range Interpretation [...] REQUIRED (test code NO = MDIFF) GLUCOSE [id number] 04:07:00 Test Item Value Reference Range Interpretation Comments GLUCOSE BEDSIDE (test 170 MG/DL 70-110 H Perfor med by certified code = GLUBED) 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 [facility] GLUCOSE [id number] 03:11:00 Test Item Value Reference Range Interpretation Comments GLUCOSE BEDSIDE (test 219 MG/DL 70-110 H Perfor med by certified code = GLUBED) 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 [facility] GLUCOSE [id number] 02:08:00 Test Item Value Reference Range Interpretation Comments GLUCOSE BEDSIDE (test 256 MG/DL 70-110 H Perfor med by certified code = GLUBED) 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 [facility] GLUCOSE [id number] 01:12:00 Test Item Value Reference Range Interpretation Comments GLUCOSE BEDSIDE (test 307 MG/DL 70-110 H Perfor med by certified code = GLUBED) 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 [facility] GLUCOSE [id number] 00:14:00 Test Item Value Reference Range Interpretation Comments GLUCOSE BEDSIDE (test 333 MG/DL 70-110 H Perfor med by certified code = GLUBED) 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 [facility] GLUCOSE [id number] 23:07:00 Test Item Value Reference Range Interpretation Comments GLUCOSE BEDSIDE (test 328 MG/DL 70-110 H Perfor med by certified code = GLUBED) 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 [facility] GLUCOSE [id number] 21:15:00 Test Item Value Reference Range Interpretation Comments GLUCOSE BEDSIDE (test 402 MG/DL 70-110 H Perfor med by certified code = GLUBED) 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 [facility] GLUCOSE [id number] 20:33:00 Test Item Value Reference Range Interpretation Comments GLUCOSE BEDSIDE (test 417 MG/DL 70-110 H Perfor med by certified code = GLUBED) 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 [facility] CBC W/AUTO [id number] 19:48:00 Test Item Value Reference Range Interpretation [...] 0.00 x10 3/uL 0.0-0.1 N NRBC#) GLUCOSE [id number] 19:23:00 Test Item Value Reference Range Interpretation Comments GLUCOSE BEDSIDE (test 427 MG/DL 70-110 H Perfor med by certified code = GLUBED) 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 [facility] BASIC METABOLIC [id number] 18:50:00 Test Item Value Reference Range Interpretation [...] code = 7.8 mg/dL 8.0-10.5 L CA) [id number] 18:50:00 Test Item Value Reference Range Interpretation Comments MAGNESIUM (test code = MAG) 1.79 mg/dL 1.80-2.40 L CBC W/AUTO [id number] 18:21:00 Test Item Value Reference Range Interpretation [...] REQUIRED (test code NO = MDIFF) GLUCOSE [id number] 16:11:00 Test Item Value Reference Range Interpretation Comments GLUCOSE BEDSIDE (test 363 MG/DL 70-110 H Perfor med by certified code = GLUBED) 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 [facility] [id number] 15:33:00 Test Item Value Reference Range Interpretation Comments ACT-ISTAT (test code 255 SEC 74-137 H Perform ed by certified = ACTI) 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 [facility] GLUCOSE [id number] 14:11:00 Test Item Value Reference Range Interpretation Comments GLUCOSE BEDSIDE (test 433 MG/DL 70-110 H Perfor med by certified code = GLUBED) 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 [facility] GLUCOSE [id number] 14:09:00 Test Item Value Reference Range Interpretation Comments GLUCOSE BEDSIDE (test 464 MG/DL 70-110 H Perfor med by certified code = GLUBED) 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 [facility] - DUP LE ART [id number] 00:00:00 [facility]UB[facility] : 1960 Sex: F Name: MARINA MARTINEZ [facility] : 1960 Age/S: 61 / F [address] [place] [address] Blvd Unit #: [id number] Loc: Rolando GAGAN [address] Phys: Kevin Meek MD Acct: [id number] Dis Date: Status: ADM IN PHONE #: [phone] Exam Date: 07/21/20211939 FAX #: [phone] Reason: HEMATOMA EXAMS: CPT CODE: [id number] [facility] [employer] UNI/LTD 84263 PROCEDURE INFORMATION: Exam: US Duplex Left Lower [...] Technologist:Saniya Barrett RDMS(AB)(OB) Trnscb Date/Time: 07/21/2021 (2020) t.SDR.SG9 Orig Print D/T: S: 07/21/2021(2020) Probe: PAGE 1 Signed ReportBASIC METABOLIC [id number] 15:47:00 Test Item Value Reference Range Interpretation [...] called to Renee TAFOYA.ATD at 15 47 07/19/21Nfela morrissey back resut and tech confirmed it's correct? YES BLOOD UREA NITROGEN 28 mg/dL 7-18 H (test code = BUN) GLOMERULAR FILTRATION 30.8 90-95 L Units of measure = RATE (test code = GFR) ml/mi n/1.73 m2 CREATININE (test code = 1.7 mg/dL 0.6-1.3 H CREAT) CALCIUM (test code = 9.6 mg/dL 8.0-10.5 N CA) CBC W/AUTO [id number] 15:41:00 Test Item Value Reference Range Interpretation [...] REQUIRED (test code NO = MDIFF) PROTHROMBIN [id number] 15:39:00 Test Item Value Reference Range Interpretation [...] recurrent infar ct). - XR CHEST 2 [id number] 00:00:00 [facility] : 1960 Sex: F FAX: Dany Dean MD [phone] [place]: St: PRE Name: YOVANAMARINA [facility] : 1960 Age/S: 61/F [address] [place] [address] Unit #: [id number] Loc: [place] [address] Phys: Dany Mcdonald MD Acct: [id number] Dis Date: Status: PRE [facility] PHONE #: [phone] Exam Date: 07/19/20211523 FAX #: Reason: PREOP EXAMS: CPT CODE: [id number] XR CHEST 2 V 58560 PROCEDURE INFORMATION: Exam: XR Chest Exam date [...] By: JazmynKWL Orig Print D/T: S: 07/19/2021 (1635) PAGE 1 Signed ReportHEMOGLOBIN [id number] 13:12:00 Test Item Value Reference Range Interpretation Comments HEMOGLOBIN PLASMA 9.2 mg/dL 0.0-4.9 A Values obt ained between (test code = HGBP) 5-15 mg/d L should be interpretedwith caution since such vari clara as sub-optimalveni puncture may increase re sults to this range.Perf ormed At: [facility] [address] [id number] ra Jeff RYAN Ph:[phone] ARTERIAL BLOOD [id number] 15:17:00 Test Item Value Reference Range Interpretation Comments ARTERIAL BLOOD GAS PH TEST NOT PERFORMED 7.35-7.45 (test code = PHA) ARTERIAL BLOOD GAS PCO2 TEST NOT PERFORMED 35-45 (test code = PCO2A) mmHg ARTERIAL BLOOD GAS PO2 TEST NOT PERFORMED 80-100 (test code = PO2A) mmHg BICARBONATE TOTAL HCO3 TEST NOT PERFORMED 22.0-26.0 (test code = HCO3) mmol/L GLUCOSE [id number] 11:03:00 Test Item Value Reference Range Interpretation Comments GLUCOSE BEDSIDE (test 193 MG/DL 70-110 H Perfor med by certified code = GLUBED) 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 [facility] GLUCOSE [id number] 07:27:00 Test Item Value Reference Range Interpretation Comments GLUCOSE BEDSIDE (test 115 MG/DL 70-110 H Perfor med by certified code = GLUBED) 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 [facility] BASIC METABOLIC [id number] 04:17:00 Test Item Value Reference Range Interpretation [...] 8.4 mg/dL 8.0-10.5 N CA) CBC W/AUTO [id number] 03:33:00 Test Item Value Reference Range Interpretation [...] = MDIFF) COMMENTS: Daily while on HeparinGLUCOSE [id number] 20:07:00 Test Item Value Reference Range Interpretation Comments GLUCOSE BEDSIDE (test 186 MG/DL 70-110 H Perfor med by certified code = GLUBED) 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 [facility] GLUCOSE [id number] 17:05:00 Test Item Value Reference Range Interpretation Comments GLUCOSE BEDSIDE (test 161 MG/DL 70-110 H Perfor med by certified code = GLUBED) 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 [facility] GLUCOSE [id number] 11:53:00 Test Item Value Reference Range Interpretation Comments GLUCOSE BEDSIDE (test 173 MG/DL 70-110 H Perfor med by certified code = GLUBED) 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 [facility] GLUCOSE [id number] 08:14:00 Test Item Value Reference Range Interpretation Comments GLUCOSE BEDSIDE (test 117 MG/DL 70-110 H Perfor med by certified code = GLUBED) 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 [facility] BASIC METABOLIC [id number] 07:39:00 Test Item Value Reference Range Interpretation [...] code = 8.9 mg/dL 8.0-10.5 N CA) [id number] 07:39:00 Test Item Value Reference Range Interpretation Comments MAGNESIUM (test code = MAG) 1.79 mg/dL 1.80-2.40 L CBC W/AUTO [id number] 07:26:00 Test Item Value Reference Range Interpretation [...] = MDIFF) COMMENTS: Daily while on HeparinGLUCOSE [id number] 20:52:00 Test Item Value Reference Range Interpretation Comments GLUCOSE BEDSIDE (test 152 MG/DL 70-110 H Perfor med by certified code = GLUBED) 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 [facility] GLUCOSE [id number] 16:59:00 Test Item Value Reference Range Interpretation Comments GLUCOSE BEDSIDE (test 180 MG/DL 70-110 H Perfor med by certified code = GLUBED) 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 [facility] HEMOGLOBIN [id number] 13:10:00 Test Item Value Reference Range Interpretation Comments HEMOGLOBIN PLASMA 4.0 mg/dL 0.0-4.9 Values obt ained between (test code = HGBP) 5-15 mg/d L should be interpretedwith caution since such vari clara as sub-optimalveni puncture may increase re sults to this range.Perf ormed At: [facility] [id number] ra Jeff RYAN Ph:[phone] HEMOGLOBIN [id number] 13:10:00 Test Item Value Reference Range Interpretation Comments HEMOGLOBIN PLASMA 21.8 mg/dL 0.0-4.9 A Results verified by (test code = HGBP) repeat te stingValues obtained betwee n 5-15 mg/dL should be interpretedwith caution since such vari clara as sub-optimalveni puncture may increase re sults to this range.Perf ormed At: [facility] [id number] ra Jeff RYAN Ph:[phone] COMMENTS: Hemoglobin plasma nowGLUCOSE [id number] 11:52:00 Test Item Value Reference Range Interpretation Comments GLUCOSE BEDSIDE (test 157 MG/DL 70-110 H Perfor med by certified code = GLUBED) 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 [facility] GLUCOSE [id number] 08:01:00 Test Item Value Reference Range Interpretation Comments GLUCOSE BEDSIDE (test 168 MG/DL 70-110 H Perfor med by certified code = GLUBED) 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 [facility] BASIC METABOLIC [id number] 05:44:00 Test Item Value Reference Range Interpretation [...] code = 8.6 mg/dL 8.0-10.5 N CA) [id number] 05:44:00 Test Item Value Reference Range Interpretation Comments MAGNESIUM (test code = MAG) 1.81 mg/dL 1.80-2.40 N CBC W/AUTO [id number] 05:33:00 Test Item Value Reference Range Interpretation [...] Perfor med by certified code = GLUBED) 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 [facility] GLUCOSE [id number] 16:12:00 Test Item Value Reference Range Interpretation Comments GLUCOSE BEDSIDE (test 171 MG/DL 70-110 H Perfor med by certified code = GLUBED) 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 [facility] HGB [id number] 15:52:00 Test Item Value Reference Range Interpretation Comments HEMOGLOBIN (test code = HGB) 7.9 g/dL 11.0-15.0 L HEMATOCRIT (test code = HCT) 24.3 % 33.0-45.0 L POC ARTERIAL BLOOD [id number] 14:58:00 Test Item Value Reference Range Interpretation Comments POC ARTERIAL BLOOD GAS PH (test 7.524 7.35-7.45 HH code = POCPHA) POC ARTERIAL BLOOD GAS PCO2 34.0 mmHg 35.0-45 L (test code = [id number]) POC TCO2 ARTERIAL (test code = 29.1 POCTCO2) POC ARTERIAL BLOOD GAS PO2 (test 78.6 mmHg 80-100.0 L code = FGPZV5Y) POC HCO3 ARTERIAL (test code = 28.1 MMOL/L 22.0-26.0 HH IKZORF6I) POC BASE EXCESS (test code = 5.3 MMOL/L -4.0-4.0 H POCBEA) POC O2 SATURATION (test code = 96.9 % 90-100 N POCO2S) FIO2 (test code = FIO2A) 21 % PaO2/FiO2 (test code = [id number]) 374.28 mm/Hg ABG SITE (test code = SITEA) L Radial NEREYDA'S TEST (test code = Positive ALLENS) BASIC METABOLIC [id number] 14:58:00 Test Item Value Reference Range Interpretation [...] (test code = POCGLU) 209 MG/DL HEMOGLOBIN [id number] 14:58:00 Test Item Value Reference Range Interpretation Comments HEMOGLOBIN ABG (test code = HGB/ABG) 6.4 G/DL 11.0-15.0 L [id number] 14:58:00 Test Item Value Reference Range Interpretation Comments HEMATOCRIT (test code = HCT/ABG) 19 % 33.0-45.0 L POC LACTIC [id number] 14:58:00 Test Item Value Reference Range Interpretation Comments POC LACTIC ACID (test code = 0.9 mmol/l 0.9-1.7 N POCLAC) GLUCOSE [id number] 11:20:00 Test Item Value Reference Range Interpretation Comments GLUCOSE BEDSIDE (test 182 MG/DL 70-110 H Perfor med by certified code = GLUBED) 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 [facility] GLUCOSE [id number] 07:22:00 Test Item Value Reference Range Interpretation Comments GLUCOSE BEDSIDE (test 97 MG/DL 70-110 N Perfor med by certified code = GLUBED) 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 [facility] COMPREHENSIVE METABOLIC [id number] 05:51:00 Test Item Value Reference Range Interpretation [...] 20-125 N TOTAL (test code = ALKP) [id number] 05:51:00 Test Item Value Reference Range Interpretation Comments MAGNESIUM (test code = MAG) 1.72 mg/dL 1.80-2.40 L CBC W/AUTO [id number] 05:42:00 Test Item Value Reference Range Interpretation [...] on Impella support.COMMENTS: Daily while on HeparinGLUCOSE [id number] 20:19:00 Test Item Value Reference Range Interpretation Comments GLUCOSE BEDSIDE (test 173 MG/DL 70-110 H Perfor med by certified code = GLUBED) 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 [facility] GLUCOSE [id number] 18:00:00 Test Item Value Reference Range Interpretation Comments GLUCOSE BEDSIDE (test 216 MG/DL 70-110 H Perfor med by certified code = GLUBED) 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 [facility] GLUCOSE [id number] 12:46:00 Test Item Value Reference Range Interpretation Comments GLUCOSE BEDSIDE (test 139 MG/DL 70-110 H Perfor med by certified code = GLUBED) 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 [facility] GLUCOSE [id number] 08:22:00 Test Item Value Reference Range Interpretation Comments GLUCOSE BEDSIDE (test 126 MG/DL 70-110 H Perfor med by certified code = GLUBED) 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 [facility] BASIC METABOLIC [id number] 05:13:00 Test Item Value Reference Range Interpretation [...] code = 7.7 mg/dL 8.0-10.5 L CA) [id number] 05:13:00 Test Item Value Reference Range Interpretation Comments MAGNESIUM (test code = MAG) 1.68 mg/dL 1.80-2.40 L B-TYPE NATRIURETIC [id number] 05:12:00 Test Item Value Reference Range Interpretation Comments B-TYPE NATRIURETIC PEPTIDE (test 223.0 PG/ML 0-100 H code = BNP) CBC W/AUTO [id number] 05:08:00 Test Item Value Reference Range Interpretation [...] Daily while on Heparin- DUP UE ART [id number] 00:00:00 [facility] : 1960 Sex: F Name: MARINA MARTINEZ [facility] : 1960 Age/S: 61 / F [address] [place] [address] Unit #: [id number] Loc: [place] [address] Phys: Loly Agee VEHICLE MAINTENANCE TECHNICIAN Acct: [id number] Dis Date: Status: ADM IN PHONE #: [phone] Exam Date: 06/26/2021 0951 FAX #: [phone] Reason: S/P IMPELLA REMOVAL/RULE OUT HEMATOMA EXAMS: CPT CODE: [id number] ANDREI UE ART UNI/LTD 71227 PROCEDURE INFORMATION: Exam: US Duplex Right Lower [...] M.D. CC: Alejandra Zeng MD; Loly Agee VEHICLE MAINTENANCE TECHNICIAN; Dany Mcdonald MD Technologist: Monalisa Carter RDMS(A)(BR) Trnscb Date/Time: 06/26/2021 (101) t.SDR.ERR2 Orig Print D/T: S: 06/26/2021 (1013) Probe: PAGE 1 Signed Report- XR CHEST 1 [id number] 00:00:00 [facility] : 1960 Sex: F FAX: Alejandra Fraga MD [phone] [place]: St: [place] FAX: Zoraida Felder [phone] FAX: Dany Dean MD [phone] Name: MARINA MARTINEZ [facility] : 1960 Age/S: 61/F [address] [place], [place] [address]vd Unit #: [id number] Loc: G.3308 [place] [address] Phys: Zoraida Felder Acct: [id number] Dis Date: Status: ADM IN PHONE #: [phone] Exam Date: 06/26/2021 06 FAX #: [phone] Reason: fluid overload EXAMS: CPT CODE: [id number] XR CHEST 1 V 82992 PROCEDURE INFORMATION: Exam: XR Chest Exam date and time: 06/26/2021 6:09 AM Age: 61 years old Clinical indication: Other: Fluid overload TECHNIQUE: Imaging protocol: XR of the chest. Views: 1 view. COMPARISON: DX XR CHEST 2 V :38 PM FINDINGS: Lungs: No obvious infiltrates or consolidations. Pleural spaces: Unremarkable. No pleural effusion. No pneumothorax. Heart/Mediastinum: Cardiomegaly. Bones/joints: Thoracic spurring. IMPRESSION: No obvious infiltrates or consolidations. at 0751 Reported and signed by: Momo Weiner M.D. CC: Alejandra Zeng MD; Zoraida Felder; Dany Mcdonald MD Technologist: Rona Banuelos, RT(R); Nancy Melton RT(R) Trnscrd Date/Time/By: 06/26/2021 (0751) : By: [id number] Orig Print D/T: S: 06/26/2021 (0751) PAGE 1 Signed ReportGLUCOSE [id number] 20:45:00 Test Item Value Reference Range Interpretation Comments GLUCOSE BEDSIDE (test 109 MG/DL 70-110 N Perfor med by certified code = GLUBED) 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 [facility] GLUCOSE [id number] 17:17:00 Test Item Value Reference Range Interpretation Comments GLUCOSE BEDSIDE (test 188 MG/DL 70-110 H Perfor med by certified code = GLUBED) 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 [facility] HGB [id number] 17:07:00 Test Item Value Reference Range Interpretation Comments HEMOGLOBIN (test code = HGB) 7.3 g/dL 11.0-15.0 L HEMATOCRIT (test code = HCT) 22.9 % 33.0-45.0 L GLUCOSE [id number] 12:04:00 Test Item Value Reference Range Interpretation Comments GLUCOSE BEDSIDE (test 265 MG/DL 70-110 H Perfor med by certified code = GLUBED) 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 [facility] GLUCOSE [id number] 07:41:00 Test Item Value Reference Range Interpretation Comments GLUCOSE BEDSIDE (test 288 MG/DL 70-110 H Perfor med by certified code = GLUBED) 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 [facility] [id number] 04:51:00 Test Item Value Reference Range Interpretation Comments MAGNESIUM (test code = MAG) 2.48 mg/dL 1.80-2.40 H CALCIUM [id number] 04:51:00 Test Item Value Reference Range Interpretation Comments CALCIUM IONIZED (test code = RYLEE) 1.01 MMOL/L 1.12-1.32 L CBC W/AUTO [id number] 04:33:00 Test Item Value Reference Range Interpretation [...] be done morning of Heart CathBASIC METABOLIC [id number] 04:10:00 Test Item Value Reference Range Interpretation [...] done morning of Heart CathLACTIC ACID 2ND [id number] 04:09:00 Test Item Value Reference Range Interpretation Comments LACTIC ACID 2ND REPEAT (test code 2.0 mmol/L 0.4-1.9 H = LACT2) ABOUT TO DRAW REPEATBASIC METABOLIC [id number] 01:02:00 Test Item Value Reference Range Interpretation [...] 6.7 mg/dL 8.0-10.5 L CA) LACTIC ACID [id number] 00:57:00 Test Item Value Reference Range Interpretation Comments LACTIC ACID REPEAT (test code = 3.0 mmol/l 0.4-1.9 H LACTR) COMPREHENSIVE METABOLIC [id number] 21:11:00 Test Item Value Reference Range Interpretation [...] 20-125 N TOTAL (test code = ALKP) [id number] 21:11:00 Test Item Value Reference Range Interpretation Comments PHOSPHOROUS (test code = PHOS) 3.5 MG/DL 2.5-4.9 N [id number] 21:11:00 Test Item Value Reference Range Interpretation Comments MAGNESIUM (test code = MAG) 1.99 mg/dL 1.80-2.40 N CALCIUM [id number] 21:11:00 Test Item Value Reference Range Interpretation Comments CALCIUM IONIZED (test code = RYLEE) 0.89 MMOL/L 1.12-1.32 L LACTIC [id number] 21:05:00 Test Item Value Reference Range Interpretation Comments LACTIC ACID (test code = LACT) 2.2 mmol/L 0.4-1.9 H CBC W/AUTO [id number] 21:02:00 Test Item Value Reference Range Interpretation [...] REQUIRED (test NO code = MDIFF) GLUCOSE [id number] 20:14:00 Test Item Value Reference Range Interpretation Comments GLUCOSE BEDSIDE (test 301 MG/DL 70-110 H Perfor med by certified code = GLUBED) 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 [facility] POC ARTERIAL BLOOD [id number] 16:54:00 Test Item Value Reference Range Interpretation Comments POC ARTERIAL BLOOD GAS PH (test 7.268 7.35-7.45 LL code = POCPHA) POC ARTERIAL BLOOD GAS PCO2 46.0 mmHg 35.0-45 H (test code = VSMSCX5P) POC TCO2 ARTERIAL (test code = 22.4 POCTCO2) POC ARTERIAL BLOOD GAS PO2 (test 247.9 mmHg 80-100.0 HH code = LUJXQ0R) POC HCO3 ARTERIAL (test code = 21.0 MMOL/L 22.0-26.0 L YMWKFO1P) POC BASE EXCESS (test code = -5.9 MMOL/L -4.0-4.0 L POCBEA) POC O2 SATURATION (test code = 99.8 % 90-100 N POCO2S) ABG SITE (test code = SITEA) [place] BASIC METABOLIC [id number] 16:54:00 Test Item Value Reference Range Interpretation [...] (test code = POCGLU) 295 MG/DL HEMOGLOBIN [id number] 16:54:00 Test Item Value Reference Range Interpretation Comments HEMOGLOBIN ABG (test code = HGB/ABG) 7.0 G/DL 11.0-15.0 L [id number] 16:54:00 Test Item Value Reference Range Interpretation Comments HEMATOCRIT (test code = HCT/ABG) 21 % 33.0-45.0 L POC LACTIC [id number] 16:54:00 Test Item Value Reference Range Interpretation Comments POC LACTIC ACID (test code = 6.5 mmol/l 0.9-1.7 HH POCLAC) [id number] 16:49:00 Test Item Value Reference Range Interpretation Comments ACT-ISTAT (test code 136 SEC 74-137 N Perform ed by certified = ACTJude) 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 [facility] THROMBOPLASTIN TIME [id number] 13:10:00 Test Item Value Reference Range Interpretation Comments THROMBOPLASTIN TIME 96.3 Seconds 25.0-39.5 H Therape utic Range: PARTIAL (test code = 50.4 - 88.3 Seconds PTT) Effective 06/26/2018 CBC W/O [id number] 13:01:00 Test Item Value Reference Range Interpretation [...] 9.5 fL 7.0-9.0 H = MPV) GLUCOSE [id number] 11:31:00 Test Item Value Reference Range Interpretation Comments GLUCOSE BEDSIDE (test 165 MG/DL 70-110 H Perfor med by certified code = GLUBED) 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 [facility] THROMBOPLASTIN TIME [id number] 10:57:00 Test Item Value Reference Range Interpretation Comments THROMBOPLASTIN TIME 93.7 Seconds 25.0-39.5 H Therape utic Range: PARTIAL (test code = 50.4 - 88.3 Seconds PTT) Effective 06/26/2018 CBC W/AUTO [id number] 10:48:00 Test Item Value Reference Range Interpretation [...] REQUIRED (test NO code = MDIFF) GLUCOSE [id number] 08:41:00 Test Item Value Reference Range Interpretation Comments GLUCOSE BEDSIDE (test 201 MG/DL 70-110 H [facility] med by certified code = GLUBED) 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 [facility] THROMBOPLASTIN TIME [id number] 08:31:00 Test Item Value Reference Range Interpretation Comments THROMBOPLASTIN TIME 115.0 Seconds 25.0-39.5 H Therap eutic PARTIAL (test code = Range: 50.4 - 88.3 PTT) Seconds Effective 06/26/2018 THROMBOPLASTIN TIME [id number] 05:47:00 Test Item Value Reference Range Interpretation Comments THROMBOPLASTIN TIME 129.9 Seconds 25.0-39.5 H Therap eutic PARTIAL (test code = Range: 50.4 - 88.3 PTT) Seconds Effective 06/26/2018 BASIC METABOLIC [id number] 05:47:00 Test Item Value Reference Range Interpretation [...] code = 8.2 mg/dL 8.0-10.5 N CA) [id number] 05:47:00 Test Item Value Reference Range Interpretation Comments MAGNESIUM (test code = MAG) 1.79 mg/dL 1.80-2.40 L CBC W/AUTO [id number] 05:25:00 Test Item Value Reference Range Interpretation [...] Impella support.COMMENTS: Daily while on HeparinTHROMBOPLASTIN TIME [id number] 02:34:00 Test Item Value Reference Range Interpretation Comments THROMBOPLASTIN TIME 45.4 Seconds 25.0-39.5 H Therape utic Range: PARTIAL (test code = 50.4 - 88.3 Seconds PTT) Effective 06/26/2018 THROMBOPLASTIN TIME [id number] 22:54:00 Test Item Value Reference Range Interpretation Comments THROMBOPLASTIN TIME 33.3 Seconds 25.0-39.5 Therape utic Range: PARTIAL (test code = 50.4 - 88.3 Seconds PTT) Effective 06/26/2018 THROMBOPLASTIN TIME [id number] 21:14:00 Test Item Value Reference Range Interpretation Comments THROMBOPLASTIN TIME 65.5 Seconds 25.0-39.5 H Therape utic Range: PARTIAL (test code = 50.4 - 88.3 Seconds PTT) Effective 06/26/2018 GLUCOSE [id number] 20:25:00 Test Item Value Reference Range Interpretation Comments GLUCOSE BEDSIDE (test 316 MG/DL 70-110 H Perfor med by certified code = GLUBED) 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 [facility] THROMBOPLASTIN TIME [id number] 20:19:00 Test Item Value Reference Range Interpretation Comments THROMBOPLASTIN TIME 104.0 Seconds 25.0-39.5 H Therap eutic PARTIAL (test code = Range: 50.4 - 88.3 PTT) Seconds Effective 06/26/2018 CBC W/AUTO [id number] 20:07:00 Test Item Value Reference Range Interpretation [...] DONE WITHIN THE LAST 24 HOURSTHROMBOPLASTIN TIME [id number] 19:07:00 Test Item Value Reference Range Interpretation Comments THROMBOPLASTIN TIME > 200.0 25.0-39.5 H Therape utic PARTIAL (test code = Seconds Range: 50.4 - 88.3 PTT) Seconds Effective 06/26/2018 COMMENTS: Start 2hrs post procedure check q1hr until 2 results in range, then q4 GLUCOSE [id number] 17:11:00 Test Item Value Reference Range Interpretation Comments GLUCOSE BEDSIDE (test 365 MG/DL 70-110 H Perfor med by certified code = GLUBED) 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 [facility] THROMBOPLASTIN TIME [id number] 17:04:00 Test Item Value Reference Range Interpretation Comments THROMBOPLASTIN TIME > 200.0 25.0-39.5 H Therape utic PARTIAL (test code = Seconds Range: 50.4 - 88.3 PTT) Seconds Effective 06/26/2018 COMMENTS: Start 2hrs post procedure check q1hr until 2 results in range, then q4 [id number] 15:09:00 Test Item Value Reference Range Interpretation Comments ACT-ISTAT (test code 267 SEC 74-137 H Perform ed by certified = ACTI) 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 [facility] [id number] 14:22:00 Test Item Value Reference Range Interpretation Comments ACT-ISTAT (test code 255 SEC 74-137 H Perform ed by certified = ACTI) 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 [facility] [id number] 13:52:00 Test Item Value Reference Range Interpretation Comments ACT-ISTAT (test code 362 SEC 74-137 H Perform ed by certified = ACTI) 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 [facility] [id number] 13:38:00 Test Item Value Reference Range Interpretation Comments ACT-ISTAT (test code 237 SEC 74-137 H Perform ed by certified = ACTI) 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 [facility] [id number] 13:04:00 Test Item Value Reference Range Interpretation Comments ACT-ISTAT (test code 273 SEC 74-137 H Perform ed by certified = ACTI) 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 [facility] [id number] 12:41:00 Test Item Value Reference Range Interpretation Comments ACT-ISTAT (test code 315 SEC 74-137 H Perform ed by certified = ACTI) 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 [facility] GLUCOSE [id number] 11:42:00 Test Item Value Reference Range Interpretation Comments GLUCOSE BEDSIDE (test 332 MG/DL 70-110 H [facility] by certified code = GLUBED) 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 [facility] PROTHROMBIN [id number] 13:57:00 Test Item Value Reference Range Interpretation [...] (to prevent recurrent infar ct). BASIC METABOLIC [id number] 13:47:00 Test Item Value Reference Range Interpretation [...] 8.9 mg/dL 8.0-10.5 N CA) CBC W/AUTO [id number] 13:35:00 Test Item Value Reference Range Interpretation [...] REQUIRED (test code NO = MDIFF) GLUCOSE [id number] 16:18:00 Test Item Value Reference Range Interpretation Comments GLUCOSE BEDSIDE (test 227 MG/DL 70-110 H Perfor med by certified code = GLUBED) 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 [facility] TROP-I HIGH [id number] 16:11:00 Test Item Value Reference Range Interpretation Comments TROP-I HIGH 1599 ng/L 0-34 HH CAUTION: Units of the SENSITIVITY (test current te st methodology code = TROPIHS) (ng/L) diffe rfrom the prior test meth odology (ng/mL) by a fa ctor of 1000. 99t h Percentile Uppe r Reference Limit (URL): Fe males: 34 ng/LMales: 54 n g/L In order to distin [facility] acute elevations of h igh [...] and URLs mayvar y by method. LIPOPROTEIN [id number] 15:14:00 Test Item Value Reference Range Interpretation Comments LIPOPROTEIN LDL 56.8 mg/dL 0-100 N <100 OPTIMAL 100-129 NEAR (test code = LDL) OPTIMAL/AB OVE [id number] HIGH>OB=682 JUSTINO Y HIGH*Guidelines provided by the National Cholesterol EducationProgra m Adult Treatment Panel III TROP-I HIGH [id number] 14:57:00 Test Item Value Reference Range Interpretation [...] 54 n g/L In order to distin [facility] acute elevations of h igh sensitivitytrop onin from other clinical conditions, the FourthUnive rsal Definition of M yocardial Infarction stressesclinica l assessment and the demonstration o f a rise and/orfall in s erial troponin result s above the URL. These resu lts were obtained using Siemens [employer]ellica IM TnI Hreagent. Results from di [place] s hould not becompared to o ne another as quantitative results and URLs mayvar y by method. GLUCOSE [id number] 11:56:00 Test Item Value Reference Range Interpretation Comments GLUCOSE BEDSIDE (test 241 MG/DL 70-110 H Perfor med by certified code = GLUBED) 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 [facility] GLUCOSE [id number] 08:03:00 Test Item Value Reference Range Interpretation Comments GLUCOSE BEDSIDE (test 209 MG/DL 70-110 H Perfor med by certified code = GLUBED) 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 [facility] BASIC METABOLIC [id number] 04:59:00 Test Item Value Reference Range Interpretation [...] 9.2 mg/dL 8.0-10.5 N CA) CBC W/AUTO [id number] 04:50:00 Test Item Value Reference Range Interpretation [...] REQUIRED (test code NO = MDIFF) GLUCOSE [id number] 20:31:00 Test Item Value Reference Range Interpretation Comments GLUCOSE BEDSIDE (test 339 MG/DL 70-110 H Perfor med by certified code = GLUBED) 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 [facility] [id number] 15:58:00 Test Item Value Reference Range Interpretation Comments ACT-ISTAT (test code 154 SEC 74-137 H Perform ed by certified = ACTI) 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 [facility] [id number] 15:05:00 Test Item Value Reference Range Interpretation Comments ACT-ISTAT (test code 178 SEC 74-137 H Perform ed by certified = ACTI) 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 [facility] [id number] 13:53:00 Test Item Value Reference Range Interpretation Comments ACT-ISTAT (test code 207 SEC 74-137 H Perform ed by certified = ACTI) 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 [facility] GLUCOSE [id number] 12:53:00 Test Item Value Reference Range Interpretation Comments GLUCOSE BEDSIDE (test 150 MG/DL 70-110 H [facility] by certified code = GLUBED) 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 [facility] [id number] 12:12:00 Test Item Value Reference Range Interpretation Comments ACT-ISTAT (test code 261 SEC 74-137 H Perform ed by certified = ACTI) 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 [facility] [id number] 11:36:00 Test Item Value Reference Range Interpretation Comments ACT-ISTAT (test code 261 SEC 74-137 H Perform ed by certified = ACTI) 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 [facility] [id number] 11:02:00 Test Item Value Reference Range Interpretation Comments ACT-ISTAT (test code 321 SEC 74-137 H Perform ed by certified = ACTI) 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 [facility] GLUCOSE [id number] 09:52:00 Test Item Value Reference Range Interpretation Comments GLUCOSE BEDSIDE (test 147 MG/DL 70-110 H [facility] by certified code = GLUBED) 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 [facility] BASIC METABOLIC [id number] 14:34:00 Test Item Value Reference Range Interpretation [...] = 8.8 mg/dL 8.0-10.5 N CA) PROTHROMBIN [id number] 14:28:00 Test Item Value Reference Range Interpretation Comments PROTHROMBIN TIME 12.0 SECONDS 9.3-12.9 N PATIENT (test code = PTP) INTERNATIONAL NORMAL 1.1 0.8-1.2 N TARGE T INR BY RATIO (test code = INDICATIO [...] (to prevent recurrent infar ct). CBC W/AUTO [id number] 14:20:00 Test Item Value Reference Range Interpretation [...] 0.0-0.1 N NRBC#) - XR CHEST 2 [id number] 00:00:00 [facility] : 1960 Sex: F FAX: Dany Dean MD [phone] [place]: St: REG Name: MARINA MARTINEZ [facility] : 1960 Age/S:61/F [address] [place] [address] Unit #: [id number] Loc: [place] [address] Phys: Dany Mcdonald MD Acct: [id number] Dis Date: Status: REG [facility] PHONE #: [phone] Exam Date: 05/10/20211451 FAX #: [phone] Reason: PREOP EXAMS: CPT CODE: [id number] XR CHEST 2 V 09014 PROCEDURE INFORMATION: Exam:XR Chest Exam date and time: 05/10/2021 2:38 [...] thoracic spine. IMPRESSION: No acute cardiopulmonary process. [id number] Reported and signed by: Felton Michelle M.D. CC: Dany Mcdonald MD Technologist: RT Naveed(R) Trnscrd Date/Time/By: 05/10/2021 (2309) : By: [email or web address] Orig Print D/T: S: 05/10/2021 (2309) PAGE 1 Signed ReportPOCT-GLUCOSE [id number] 21:54:00 Test Item Value Reference Range Interpretation Comments POC-GLUCOSE METER 194 mg/dL 70-110 H TESTED AT [place] [address] ([place]) (test code = [place] 1538) [address] POCT-GLUCOSE [id number] 16:50:00 Test Item Value Reference Range Interpretation Comments POC-GLUCOSE METER 134 mg/dL 70-110 H TESTED AT [place] [address] ([place]) (test code = [place] 1538) [address] POCT-GLUCOSE [id number] 12:10:00 Test Item Value Reference Range Interpretation Comments POC-GLUCOSE METER 155 mg/dL 70-110 H TESTED AT [place] [address] ([place]) (test code = [place] 1538) [address] POCT-GLUCOSE [id number] 05:34:00 Test Item Value Reference Range Interpretation Comments POC-GLUCOSE METER 249 mg/dL 70-110 H TESTED AT [place] [address] ([place]) (test code = [place] 1538) [address] POCT-GLUCOSE [id number] 00:09:00 Test Item Value Reference Range Interpretation Comments POC-GLUCOSE METER 236 mg/dL 70-110 H TESTED AT [place] [address] ([place]) (test code = [place] 1538) [address] POCT-GLUCOSE [id number] 21:17:00 Test Item Value Reference Range Interpretation Comments POC-GLUCOSE METER 153 mg/dL 70-110 H TESTED AT [place] [address] ([place]) (test code = [place] 1538) [address] POCT-GLUCOSE [id number] 18:23:00 Test Item Value Reference Range Interpretation Comments POC-GLUCOSE METER 148 mg/dL 70-110 H TESTED AT [place] [address] ([place]) (test code = JENIFER Lem[facility] 1538) [address] [place], UGI, WITHOUT [id number] 17:33:00Reason for exam:->Please evaluate with thin barium [...] stomach. Esophageal peristalsis was normal. Signed: Shen [place] Verified Date/Time: 10/16/2018 17:33:25 Reading Location: [facility] [id number] Ortho Consult Reading Room -GLUCOSE [id number] 05:59:00 Test Item Value Reference Range Interpretation Comments POC-GLUCOSE METER 192 mg/dL 70-110 H TESTED AT [place] [address] ([place]) (test code = JENIFER Lemons [facility] 1538) [address] POCT-GLUCOSE [id number] 00:39:00 Test Item Value Reference Range Interpretation Comments POC-GLUCOSE METER 172 mg/dL 70-110 H TESTED AT [place] [address] ([place]) (test code = JEINFER Lemons [facility] 1538) [address] POCT-GLUCOSE [id number] 22:13:00 Test Item Value Reference Range Interpretation Comments POC-GLUCOSE METER 187 mg/dL 70-110 H TESTED AT [place] [address] ([place]) (test code = JENIFER Lemons [facility] 1538) [address] RAD, CHEST, 1 VIEW, NON [id number] 18:59:00Reason for exam:->preopShould this be performed at [...] No acute bony abnormality. Signed: Lottie Mcgraw MDReport Verified Date/Time: 10/15/2018 18:59:09 Reading Location: [facility] [id number] Consult Reading Room BASI METABOLIC [id number] 18:46:00 Test Item Value Reference Range Interpretation [...] NOT APPLICABLE FOR DIALYSIS PATIEN TS. HEMOGLOBIN [id number] 18:36:00 Test Item Value Reference Range Interpretation Comments HEMOGLOBIN A1C (BEAKER) (test code = 9.7 % 4.3-6.1 H 368) POCT-GLUCOSE [id number] 18:14:00 Test Item Value Reference Range Interpretation Comments POC-GLUCOSE METER 207 mg/dL 70-110 H TESTED AT [facility] 6720 ([facility]AKER) (test code = JENIFER [place] 1538) [address] CBC W/PLT COUNT & AUTO [id number] 18:13:00 Test Item Value Reference Range Interpretation [...]
[2022-02-05] MEDS ORDERED: LEVALBUTEROL 1.25 MG/3 ML NEB ONE (12:50)
[2022-02-05 13:17] LABS: Absolute Lymphocytes (CBC) 2.3 K/uL (0.7-4.9); Hematocrit 39.8 % (36.0-45.0); Lymphocytes % 23.3 % (15.3-44.8); MCV 83.9 fL (80-100); MPV 7.6 fL (7.6-11.3); RBC Red Blood Cell Count 4.75 M/uL (3.86-4.86)
--- NOTE | 2022-02-05 13:34 | RAD REPORT ---
EXAM DESCRIPTION: RAD - Chest Single View - 02/05/2022 1:14 pm CLINICAL HISTORY: SOB COMPARISON: Chest Single View dated 12/30/2021; Chest Single View dated 10/15/2021; Chest Single View dated 07/15/2021; Chest Single View dated 07/14/2021 FINDINGS: Lines: None. Lungs: No evidence of edema or pneumonia. Pleural: No significant pleural effusions or pneumothorax. Cardiac: The heart size is within normal limits. Mediastinum: Within normal limits. Bones: No acute fractures. Other: None IMPRESSION: No acute cardiopulmonary disease.
[2022-02-05 13:36] LABS: Potassium 4.6 mmol/L (3.5-5.1); Troponin High Sensitivity 17.2 pg/mL (<58.9)
[2022-02-05 13:54] LABS: SARS-COV-2 RT PCR NEGATIVE (NEGATIVE)
--- NOTE | 2022-02-05 15:09 | EDPHYS ---
Physician Documentation [facility] Name: Tamy Martinez Age: 61 yrs Sex: Female : 1960 Arrival Date: 02/05/2022 Time: 12:02 Bed 8 Private MD: ED Physician Joe Estrada HPI: 02/05 12:43 This 61 yrs old Female presents to ER via Ambulatory with complaints of Wheezing > 1 jmm Year, Cough. 12:43 Onset: The symptoms/episode began/occurred gradually, 3 day(s) ago. Modifying factors: jmm The symptoms are alleviated by nothing, the symptoms are aggravated by nothing. Associated signs and symptoms: Pertinent positives:. This is a 61 year old female with a history of dm, htn, mi, ra that presents to the ED with complaints of cough, wheezing, sob beginning approx 3 days ago. Denies fever, vomiting, chest pain. . Historical: - Allergies: 12:46 Iodinated Contrast Media - IV Dye; kb3 - PMHx: 12:46 Diabetes - IDDM; Hypertension; Myocardial infarction; Rheumatoid Arthritis; kb3 - Immunization history:: Adult Immunizations up to date, Client reports having NOT received the Covid vaccine. Last tetanus immunization: unknown. - Social history:: Smoking status: Patient denies any tobacco usage or history of. ROS: 12:43 Constitutional: Positive for fatigue. jmm 12:43 Respiratory: Positive for cough. 12:43 Respiratory: Positive for wheezing. 12:43 Abdomen/GI: Negative for abdominal pain, vomiting, diarrhea. 12:43 All other systems are negative. Exam: 12:43 Constitutional: This is a well developed, well nourished patient who is awake, alert, jmm and in no acute distress. Head/Face: atraumatic. Eyes: EOMI, no conjunctival erythema appreciated ENT: Moist Mucus Membranes Neck: Trachea midline, Supple Chest/axilla: Normal chest wall appearance and motion. Cardiovascular: Regular rate and rhythm. No edema appreciated 12:43 Abdomen/GI: Non distended Back: Normal ROM Skin: General appearance color normal MS/ Extremity: Moves all extremities, no obvious deformities appreciated, no edema noted to the lower extremities Neuro: Awake and alert Psych: Behavior is normal, Mood is normal, Patient is cooperative and pleasant 12:43 Respiratory: the patient does not display signs of respiratory distress, Respirations: normal, Breath sounds: wheezing: that is mild, is scattered. Vital Signs: 12:45 BP 124 / 92; Pulse 73; Resp 20; Temp 99.4; Pulse Ox 100% ; Weight 97.52 kg; Height 5 kb3 ft. 0 in. (152.40 cm); Pain 8/10; 14:15 BP 112 / 58; Pulse 78; Resp 19; Pulse Ox 99% on R/A; hb 15:15 BP 124 / 68; Pulse 72; Resp 15; Pulse Ox 99% on R/A; hb 12:45 Body Mass Index 41.99 (97.52 kg, 152.40 cm) kb3 MDM: 12:43 Patient medically screened. [facility] 15:08 Data reviewed: vital signs, nurses notes. Counseling: I had a detailed discussion with anuja the patient and/or guardian regarding: the historical points, exam findings, and any diagnostic results supporting the discharge/admit diagnosis, the need for outpatient follow up, to return to the emergency department if symptoms worsen or persist or if there are any questions or concerns that arise at home. 02/05 12:44 Order name: Basic Metabolic Panel; Complete Time: 13:36 [facility] 02/05 12:44 Order name: CBC with Diff; Complete Time: 13:22 [facility] 02/05 12:44 Order name: Troponin HS; Complete Time: 13:36 [facility] 02/05 12:44 Order name: XRAY Chest (1 view); Complete Time: 13:36 [facility] 02/05 12:44 Order name: COVID-19/FLU A+B; Complete Time: 13:59 [facility] 02/05 12:44 Order name: EKG; Complete Time: 12:44 [facility] 02/05 12:44 Order name: Cardiac monitoring; Complete Time: 13:14 [facility] 02/05 12:44 Order name: EKG - Nurse/Tech; Complete Time: 13:14 [facility] 02/05 12:44 Order name: IV Saline Lock; Complete Time: 13:14 [facility] 02/05 12:44 Order name: Labs collected and sent; Complete Time: 13:14 [facility] 02/05 12:44 Order name: O2 Per Protocol; Complete Time: 13:14 [facility] 02/05 12:44 Order name: O2 Sat Monitoring; Complete Time: 13:14 [facility] Administered Medications: 13:10 Drug: Xopenex (levalbuterol) (3) 1.25 mg Route: Inhalation; hb 13:58 Follow up: Response: No adverse reaction hb 15:20 Drug: Decadron - Dexamethasone 10 mg Route: IVP; Site: right antecubital; hb 15:35 Follow up: Response: No adverse reaction hb Disposition: 15:16 Co-signature as Attending Physician, Joe BARRERA was immediately available on-site ms3 in the Emergency Department for consultation in the care of the patient. Disposition Summary: 02/05/22 15:09 Discharge Ordered Location: Home jm Condition: Stable jmm Diagnosis - Cough jmm Followup: jmm - With: Private Physician - When: 2 - 3 days - Reason: Recheck today's complaints, Continuance of care, Re-evaluation by your physician Discharge Instructions: - Discharge Summary Sheet [facility] - Cough, Adult m Forms: - Medication Reconciliation Form [facility] - Thank You Letter [facility] - Antibiotic Education [facility] - Prescription Opioid Use [facility] Prescriptions: - promethazine-DM - take 10 milliliter by ORAL route every 6 hours As needed; 200 milliliter; [facility] Refills: 0, Product Selection Permitted - Zithromax Z-Zan 250 mg Oral Tablet - take 1 tablet by ORAL route as directed for 5 days Day 1 - take two (2) tablets [facility] one time. Day 2, 3, 4 , 5 take one (1) tablet once daily.; 6 tablet; Refills: 0, Product Selection Permitted Signatures: Dispatcher [employer] EDMunir Johnson PA PA [facility] Xuan Jeong RN RN Joe Estrada DO DO ms3 Maranda Chen RN RN kb3 Corrections: (The following items were deleted from the chart) 12:47 12:46 PMHx: Hypertension resolved after lap band; kb3 kb3
--- NOTE | 2022-02-05 15:09 | ER ---
Nurse's Notes [facility] Name: Tamy Martinez Age: 61 yrs Sex: Female : 1960 Arrival Date: 02/05/2022 Time: 12:02 Bed 8 Private MD: Diagnosis: Cough Presentation: 02/05 12:45 Chief complaint: Patient states: Cough, congestion, fever, SOB since Mon. Coronavirus kb3 screen: Vaccine status: Patient reports being unvaccinated. Client denies travel out of the [place] in the last 14 days. Ebola Screen: Patient negative for fever greater than or equal to 101.5 degrees Fahrenheit, and additional compatible Ebola Virus Disease symptoms Patient denies exposure to infectious person. Patient denies travel to an Ebola-affected area in the 21 days before illness onset. Initial Sepsis Screen: Does the patient meet any 2 criteria? No. Patient's initial sepsis screen is negative. Does the patient have a suspected source of infection? No. Patient's initial sepsis screen is negative. Risk Assessment: Do you want to hurt yourself or someone else? Patient reports no desire to harm self or others. Onset of symptoms was February 02, 2022. 12:45 Method Of Arrival: Ambulatory kb3 12:45 Acuity: HODAN 4 kb3 13:01 Acuity: HODAN 3 hb Triage Assessment: 12:46 General: Appears in no apparent distress. Behavior is calm, cooperative. Pain: kb3 Complains of pain in chest Pain does not radiate. Pain currently is 5 out of 10 on a pain scale. Quality of pain is described as pressure. Respiratory: Reports shortness of breath cough that is productive, Airway is patent Breath sounds are coarse Onset: The symptoms/episode began/occurred gradually, the patient has moderate shortness of breath. Historical: - Allergies: 12:46 Iodinated Contrast Media - IV Dye; kb3 - PMHx: 12:46 Diabetes - IDDM; Hypertension; Myocardial infarction; Rheumatoid Arthritis; kb3 - Immunization history:: Adult Immunizations up to date, Client reports having NOT received the Covid vaccine. Last tetanus immunization: unknown. - Social history:: Smoking status: Patient denies any tobacco usage or history of. Screenin:14 Abuse screen: Denies threats or abuse. Denies injuries from another. Nutritional hb screening: No deficits noted. Tuberculosis screening: No symptoms or risk factors identified. Fall Risk None identified. Assessment: 13:18 General: Appears in no apparent distress. Behavior is calm, cooperative. Pain: Pain hb currently is 6 out of 10 on a pain scale. Neuro: Level of Consciousness is awake, alert, obeys commands, Oriented to person, place, time, situation. Cardiovascular: Patient's skin is warm and dry. Rhythm is regular. Respiratory: Respiratory effort is even, mildly labored Respiratory pattern is regular, symmetrical. GI: No signs and/or symptoms were reported involving the gastrointestinal system. : No signs and/or symptoms were reported regarding the genitourinary system. EENT: No signs and/or symptoms were reported regarding the EENT system. Derm: Skin is pink, warm \T\ dry. Musculoskeletal: No signs and/or symptoms reported regarding the musculoskeletal system. 14:15 Reassessment: Patient appears in no apparent distress at this time. Patient and/or hb family updated on plan of care and expected duration. Pain level reassessed. Patient is alert, oriented x 3, equal unlabored respirations, skin warm/dry/pink. 15:15 Reassessment: Patient appears in no apparent distress at this time. Patient is alert, hb oriented x 3, equal unlabored respirations, skin warm/dry/pink. Patient is alert/active/playful, equal unlabored respirations, skin warm/dry/pink. Vital Signs: 12:45 BP 124 / 92; Pulse 73; Resp 20; Temp 99.4; Pulse Ox 100% ; Weight 97.52 kg; Height 5 kb3 ft. 0 in. (152.40 cm); Pain 8/10; 14:15 BP 112 / 58; Pulse 78; Resp 19; Pulse Ox 99% on R/A; hb 15:15 BP 124 / 68; Pulse 72; Resp 15; Pulse Ox 99% on R/A; hb 12:45 Body Mass Index 41.99 (97.52 kg, 152.40 cm) kb3 ED Course: 12:02 Patient arrived in ED. as 12:33 Munir Mares PA is PHCP. beverlym 12:33 Joe Estrada DO is Attending Physician. jmm 12:46 Triage completed. kb3 12:46 Arm band placed on right wrist. kb3 12:48 Xuan Jeong, RN is Primary Nurse. hb 13:14 Patient has correct armband on for positive identification. hb 13:14 Basic Metabolic Panel Sent. hb 13:14 CBC with Diff Sent. hb 13:14 Troponin HS Sent. hb 13:15 Inserted saline lock: 22 gauge in right antecubital area, using aseptic technique. hb Blood collected. 13:16 XRAY Chest (1 view) In Process Unspecified. EDMS 15:36 No provider procedures requiring assistance completed. IV discontinued, intact, hb bleeding controlled, No redness/swelling at site. Administered Medications: 13:10 Drug: Xopenex (levalbuterol) (3) 1.25 mg Route: Inhalation; hb 13:58 Follow up: Response: No adverse reaction hb 15:20 Drug: Decadron - Dexamethasone 10 mg Route: IVP; Site: right antecubital; hb 15:35 Follow up: Response: No adverse reaction hb Medication: 13:18 VIS not applicable for this client. hb Outcome: 15:09 Discharge ordered by . beverly 15:36 Discharged to home ambulatory. hb 15:36 Condition: stable 15:36 Discharge instructions given to patient, Instructed on discharge instructions, follow up and referral plans. medication usage, Demonstrated understanding of instructions, follow-up care, medications, Prescriptions given X 2. 15:36 Patient left the ED. hb Signatures: Dispatcher [employer] EDMS Munir Mares PA PA jmm Martinez, Amelia as Xuan Jeong, RN RN Maranda Chen, RN RN kb3 Corrections: (The following items were deleted from the chart) 12:47 12:46 PMHx: Hypertension resolved after lap band; kb3 kb3
[2022-02-05] MEDS ORDERED: dexAMETHasone 10 MG/ML VIAL ONE (15:24)
[2022-02-05 15:46] VITALS: TEMP 99.4
[2022-02-05 15:52] VITALS: O2SAT 99
[2022-02-05 15:57] VITALS: BP 124/68
--- NOTE | 2022-02-07 12:53 | EKG ---
Test Date: 2022-02-05 Test Time: 13:08:08 Diamond Sizer: HB MEASUREMENT RESULTS: Intervals: Rate: 74 SD: 144 QRSD: 82 QT: 376 QTc: 417 [place]: P: 55 SD: 144 QRS: -1 T: 49 INTERPRETIVE STATEMENTS: Normal sinus rhythm Possible Anterior infarct, age undetermined Abnormal ECG Compared to ECG 12/30/2021 18:17:00 No significant changes Electronically Signed On 02-07-22 12:50:13 PSYCHOLOGY LECTURER by Dany Mcdonald
== END 2022-02-05 15:36 | disposition home or self-care (01) ==
LOC: ER 12:01
DX: R05.9 Cough, unspecified (principal); Z20.822 Contact with and (suspected) exposure to COVID-19; E11.9 Type 2 diabetes mellitus without complications; I10 Essential (primary) hypertension; Z91.041 Radiographic dye allergy status
CPT/HCPCS: 93005; 85025; 80048; 36415; 84484; 0240U; 71045; 96374; 99284; J7614; J1100

== ENCOUNTER 2022-08-03 15:06 | Emergency (ER) | payer BC, OTHER ==
--- OUTSIDE RECORDS SUMMARY | 2022-08-03 15:16 | XMS REPORT | Continuity of Care Document ---
:1960 Author Organization [facility] t Address [address] [facility] [address] [place] [address] Care Team Providers Name Role Phone No ANP, Pcp [facility] Primary Care Physician ABBEY NEGRETE Attending Clinician Unavailable ABBEY NEGRETE Attending Clinician Unavailable ROCIO CAREY Attending Clinician Unavailable Doctor Unassigned, Morrice Attending Clinician Unavailable CORDELL MANLEY Attending Clinician Unavailable Lab, Ang - Db Attending Clinician Unavailable Teena Weinberg MA Attending Clinician Unavailable HTEO DIGGS Attending Clinician Unavailable Trey Yu MD Attending Clinician Unavailable Inga Robertson Attending Clinician Unavailable CARMELINA CHAIDEZ Attending Clinician Unavailable Rocio Del Rio Attending Clinician Alvarado Estevez MD Attending Clinician Alejandra Zeng Attending Clinician Unavailable ELISE PARKER Attending Clinician Unavailable TREY YU Attending Clinician Unavailable SHAHNAZ ANDRADE Attending Clinician Unavailable Иван RYAN, Shahnaz Frederick Attending Clinician Dany Mcdonald Attending Clinician Unavailable ALVARADO ESTEVEZ Attending Clinician Unavailable KITTY MARIN Attending Clinician Unavailable Brianna RYAN, Rachel K.H. Attending Clinician ANY TOWNSEND Attending Clinician Unavailable Any Rodriguez S Attending Clinician Ander PROPERTY INSURANCE CLAIMS EXAMINER, Kitty Attending Clinician RACHEL REED K.H. Attending Clinician Unavailable KATIA KAMARA Attending Clinician Unavailable Kalpana Zheng PT Attending Clinician Unavailable Katia Kamara MD Attending Clinician Shailesh OLVERA, Della Arzola Attending Clinician Leo Dickinson DO Attending Clinician Renny Reardon MD Attending Clinician Tommy Lyn MD Attending Clinician Nurse, [facility] Attending Clinician Unavailable Amada Steinberg Attending Clinician AMADA PRATER Attending Clinician Unavailable Pob, [facility] Main Attending Clinician Unavailable Day Horn RN Attending Clinician Unavailable ZEINA JO Attending Clinician Unavailable ZEINA JO Attending Clinician Unavailable Flako Schwartz DO Attending Clinician Carmelina Chaidez MD Attending Clinician FAITH BUSTOS Attending Clinician Unavailable Faith Hameed Attending Clinician ASHLEY BLUE Attending Clinician Unavailable Marah Prescott DO Attending Clinician Noah RYAN, Juana Attending Clinician Radiology Attending Clinician Unavailable RADIOLOGY Attending Clinician Unavailable Luis Alberto Jordan MD, Joana Douglas Attending Clinician Vielka RYAN, Melba العلي Attending Clinician KEVEN REDMOND Attending Clinician Unavailable Gee Gasca DO Attending Clinician GEE GASCA Attending Clinician Unavailable Pcp-Lab Attending Clinician Unavailable FLAKO ZELAYA Attending Clinician Unavailable Inga Robertson Admitting Clinician Unavailable Alejandra Zeng Admitting Clinician Unavailable [facility] Admitting Clinician Unavailable Riki RYAN, Tommy Maza Admitting Clinician FAITH BUSTOS Admitting Clinician Unavailable Noah RYAN, Juana Admitting Clinician FLAKO ZELAYA Admitting Clinician Unavailable Payers Payer Name Policy Type Policy Number Effective Date Expiration Date S ource [place] - [id number] 2012 00:00:00 OUT OF STATE FORMERLY [facility] [id number] 2018 00:00:00 PLUS Problems Condition Condition Condition Status Onset Resolution Last Treating Co mments Source Name Details Category Date Date Treatment Clinician Date Colitis Colitis Disease Active 2020-03 Univers 1-07 ity of 00:00: [place] [facility] At risk At risk Disease Active 2020-03 Univers for falls for falls 03-19 ity of 00:00: [place] [address] Medical Branch Mood Mood Disease Active 2020-03 [...] nivers stroke stroke 0-29 ity of 00:00: [place] 00 Medical Branch Generalize Generalize Disease Active U nivers d pain d pain 9-24 ity of 00:00: [place] 00 Medical Branch Chest pain Chest pain Disease Active 2019-03 U nivers due to CAD due to CAD 2-31 it y of 00:00: [place] 00 Medical Branch Proliferat Proliferat Disease Active [...] ally from mellitus mellitus request for surgery [id number] Gastric Gastric Disease Active [facility] [...] [place] 00 [facility] Diabetes Diabetes Disease Recurre [facility] mellitus mellitus n[facility]03 [facility]: [facility] 00 [place] Colon Colon Disease Active 2016-03 Univers cancer [...] different from the original. ICD10 Diagnosis Term Change Management Manager Utility Diabetic Diabetic Disease Active Unive rs peripheral peripheral 8-27 it y [place] 00:[place]: [place] [facility] [place] Diabetes Diabetes Disease Active 2011-03 Overview: Un alex mellitus mellitus 02 Formattin ity of type 2, type 2, 00:00: g of this [place] uncontroll uncontroll 00 note Me dical ed, ed, might be Branch without without different complicati complicati from the ons ons original. ICD10 Diagnosis Term Change Management Manager Utility Obesity Obesity Disease Active 2011-03 Overview: Univ ers 03-14 Formattin ity of 00:00: g of this note Medical might be Branch different from the original. ICD10 Diagnosis Term Change Management Manager Utility HLD HLD Disease Active 2011-03 Overview: Univer s (hyperlipi (hyperlipi 03-14 Formattin ity of demia) demia) 00:00: g of this note Medical might be Branch different from the original. ICD10 Diagnosis Term Change Management Manager Utility Elevated Elevated Disease Active 2011-03 Unive rs BP BP -02 ity of 00:00: Medical Branch Mild Mild [...] different from the original. ICD10 Diagnosis Term Change Management Manager Utility Chronic Chronic Disease Active Univers pain pain 5-18 ity of syndrome syndrome 00:00: Medical Branch Allergies, Adverse Reactions, Alerts Allergy Allergy Status Severity Reaction(s) Onset Inactive Treating Comm ents Source Name Type Date Date Clinician iodine DA Active MO HIVES [facility] 5-11 Clear 00:00: [place] 00 [facility] iodine DA Active MO HIVES [facility] 2-28 Clear 00:00: [place] 00 [facility] SHELLFIS DRUG Active Anaphylaxis Uni vers H INGREDI 1-14 ity of DERIVED 00:00: [place] 00 Medical Branch Shellfis Propensi Active Anaphylaxis 2020-0 U nivers h ty to 1-14 ity of Derived adverse 00:00: [place] reaction 00 Medical s Branch Iodinate Propensi Active Hives [facility]- [facility] Contrast adverse 00:00: Medical Media reaction 00 Center s Iodinate Propensi Active Hives [facility] to 03-13 [facility] Contrast adverse 00:00: Medical Media reaction 00 Center s Iodine Propensi Active Rash [address] [facility] And ty to 5-11 [...] PRODUCTS IODINE DA Active U [place] W/ 2004-0 [facility] CONTRAST BETADINE 8-24 Clear PREP 00:00: [place] [facility] No Known DA Active U 2004-0 [facility] Drug 8-24 Clear Allergie 00:00: [facility] No Known DA Active U 2004-0 [facility] Other 8-24 Clear Allergie 00:00: [facility] SHRIMP DA Active U 2004-0 [facility] 8-24 Clear 00:00: [place] [facility] iodine DA Active U 2004-0 [facility] 2-10 Clear 00:00: [place] [facility] Family History Family Member Diagnosis Comments Start Date Stop Date Source Natural father Heart disease [facility] Natural mother Cancer [facility] Social History Social Habit Start Date Stop Date Quantity Comments Source History SDOH [facility] Std [facility] Drinks History SDOH [facility] Alcohol Binge Medical Jean ter History SDOH [facility] Alcohol Comment Medical C enter Exposure to 2022-06-03 2022-06-13 Not sure University of SARS-CoV-2 00:00:00 11:29:00 [facility] (event) Branch Alcohol intake 2018-10-15 2018-10-[address] [address] [facility] 00:00:00 00:00:00 non-drinker of Medical Ce nter alcohol (finding) History SDOH 2018-10-15 2018-10-[address] [facility] Alcohol Frequency 00:00:00 00:00:00 [facility] Tobacco use and 2014-09-01 2014-09-01 Smokeless tobacco Un iversity of exposure 00:00:00 00:00:00 non-user [facility] Sex Assigned At [birth year] JENNA Metcalf kes 00:00:00 00:00:00 [facility] Smoking Status Start Date Stop Date Source Never smoked tobacco [facility] Medications Ordered Filled Start Stop Current Ordering Indication Dosage Frequency Signature Comments Components Source Medication Medication Date Date Medication? Clinician (SIG) Name Name empaglifloz Yes [id number] 25mg Take 1 Univers in 4-03 tablet by ity of ([place]) 00:[place] 25 mg Tab 00 the Medical morning. Branch insulin Yes [id number] 25U inject 25 U nivers degludec 4-03 Units ity of ([place] 00:[place] FLE[place] 00 skin in Medical U-100) 100 the Branch unit/mL (3 morning. mL) InPn Max daily dose of 40 units insulin Yes [id number] INJECT 8 Un alex aspart 4-03 UNITS ity [facility] BEFORE Medica l FLEXPEN EACH MEAL. Branch U-100 MAX DAILY INSULIN) DOSE OF 30 100 unit/mL UNITS (3 mL) injection empaglifloz Yes [id number] 25mg Take 1 Univers in 4-03 tablet by ity of ([place]) 00:00: [place] 25 mg Tab 00 the Medical morning. Branch insulin Yes [id number] 25U inject 25 U nivers degludec 4-03 Units ity of ([place] 00:[place] FLE[place] 00 skin in Medical U-100) 100 the Branch unit/mL (3 morning. mL) InPn Max daily dose of 40 units insulin 0 Yes [id number] INJECT 8 Un alex aspart 4-03 UNITS ity of U-100 00:00: SUBCUTANEO [place] (NOVOLOG 00 US BEFORE Medica l FLEXPEN EACH MEAL. Branch U-100 MAX DAILY INSULIN) DOSE OF 30 100 unit/mL UNITS (3 mL) injection Insulin 0 Yes [id number] Use as Univ ers [place], 1-24 directed 4 ity o f Disposable, 00:00: times [place] (PEN 00 daily. Medical NEEDLES) 31 E11.65 Branch gauge x 1/4" Ndle Insulin 2022-0 Yes [id number] Use as Univ ers [place], 1-24 directed 4 ity o f Disposable, 00:00: times [place] (PEN 00 daily. Medical NEEDLES) 31 E11.65 Branch gauge x 1/4" Ndle Insulin 2022-0 Yes [id number] Use as Univ ers [place], 1-24 directed 4 ity o f Disposable, 00:00: times [place] (PEN 00 daily. Medical NEEDLES) 31 E11.65 Branch gauge x 1/4" Ndle Insulin 2022-0 Yes [id number] Use as Univ ers [place], 1-24 directed 4 ity o f Disposable, 00:00: times [place] (PEN 00 daily. Medical NEEDLES) 31 E11.65 Branch gauge x 1/4" Ndle Insulin 2022-0 Yes [id number] Use as Univ ers [place], 1-24 directed 4 ity o f Disposable, 00:00: times [place] (PEN 00 daily. Medical NEEDLES) 31 E11.65 Branch gauge x 1/4" Ndle empaglifloz 2021-03 Yes [id number] 10mg Take 1 Univers in 2-12 tablet by ity of ([place]) 00:00: [place] 10 mg 00 the Medical morning. Branch Blood-Gluco 2021-03 Yes [id number] Use as Univers se Sensor 2-12 directed ity of (FREESTYLE 00:00: [place] FELIPE 3 00 Medical SENSOR) Branch Yolanda empaglifloz 2021-03 Yes [id number] 10mg Take 1 Univers in 2-12 tablet by ity of ([place]) 00:00: [place] 10 mg 00 the Medical morning. Branch Blood-Gluco 2021-03 Yes [id number] Use as Univers se Sensor 2-12 directed ity of (FREESTYLE 00:00: [place] FELIPE 3 00 Medical SENSOR) Branch Yolanda empaglifloz 2021-03 Yes [id number] 10mg Take 1 Univers in 2-12 tablet by ity of (J[place]) 00:00: mouth [place] 10 mg 00 the Medical morning. Branch Blood-Gluco 2021-03 Yes [id number] Use as Univers se Sensor 2-12 directed ity of (FREESTYLE 00:00: [place] FELIPE 3 00 Medical SENSOR) Nicky Guerrero empaglifloz 2021-03 Yes [id number] 10mg Take 1 Univers in 2-12 tablet by ity of (J[place]) 00:00: mouth [place] 10 mg 00 the Medical morning. Branch Blood-Gluco 2021-03 Yes [id number] Use as Univers se Sensor 2-12 directed ity of (FREESTYLE 00:00: [place] FELIPE 3 00 Medical SENSOR) Nicky Guerrero empaglifloz 2021-03 Yes [id number] 10mg Take 1 Univers in 2-12 tablet by ity of (JARDIANCE) 00:00: mouth [place] 10 mg 00 the Medical morning. Branch Blood-Gluco 2021-03 Yes [id number] Use as Univers se Sensor 2-12 directed ity of (FREESTYLE 00:00: [place] FELIPE 3 00 Medical SENSOR) Nicky Guerrero empaglifloz 2021-03 Yes [id number] 10mg Take 1 Univers in 2-12 tablet by ity of (J[place]IANCE) 00:00: mouth [place] 10 mg 00 the Medical morning. Branch Blood-Gluco 2021-03 Yes [id number] Use as Univers se Sensor 2-12 directed ity of (FREESTYLE 00:00: [place] FELIPE 3 00 Medical SENSOR) Nicky Guerrero empaglifloz 2021-03 Yes [id number] 10mg Take 1 Univers in 2-12 tablet by ity of (JARDIANCE) 00:00: mouth in [place] 10 mg 00 the Medical morning. Branch Blood-Gluco 2021-03 Yes [id number] Use as Univers se Sensor 2-12 directed ity of (FREESTYLE 00:00: [place] FELIPE 3 00 Medical SENSOR) Nicky Guerrero empaglifloz 2021-03 Yes [id number] 10mg Take 1 Univers in 2-12 tablet by ity of (JARD[place]ANCE) 00:00: mouth [place] 10 mg 00 the Medical morning. Branch Blood-Gluco 2021-03 Yes [id number] Use as Univers se Sensor 2-12 directed ity of (FREESTYLE 00:00: [place] FELIPE 3 00 Medical SENSOR) Branch Yolanda empaglifloz 2021-03 Yes [id number] 10mg Take 1 Univers in 2-12 tablet by ity of (JARDIANCE) 00:00: mouth [place] 10 mg 00 the Medical morning. Branch Blood-Gluco 2021-03 Yes [id number] Use as Univers se Sensor 2-12 directed ity of (FREESTYLE 00:00: [place] FELIPE 3 00 Medical SENSOR) Branch Yolanda Blood-Gluco 2021-03 Yes [id number] Use as Univers se Sensor 2-12 directed ity of (FREESTYLE 00:00: [place] FELIPE 3 00 Medical SENSOR) Branch Yolanda Blood-Gluco 2021-03 Yes [id number] Use as Univers se Sensor 2-12 directed ity of (FREESTYLE 00:00: [place] FELIPE 3 00 Medical SENSOR) [place] Yolanda empaglifloz 2021-03 2023- No [id number] 10mg Take 1 Univers in 2-12 04-03 tablet by ity of (JARDIANCE) 00:00: 00:00 [place] 10 mg 00 :00 the Medical morning. Branch empaglifloz 2021-03 2023- No [id number] 10mg Take 1 Univers in 2-12 04-03 tablet by ity of (JARDIANCE) 00:00: 00:00 [place] 10 mg 00 :00 the Medical morning. [place] predniSONE 2021-0 Yes Univers 50 mg 4-12 ity of tablet 00:00: [place] [facility] predniSONE 2-0 Yes Univers 50 mg 4-12 ity of tablet 00:00: [facility] predniSONE 2022-0 Yes Univers 50 mg 4-12 ity of tablet 00:00: [facility] predniSONE 2-0 Yes Univers 50 mg 4-12 ity of tablet 00:00: [place] [facility] predniSONE 2022-0 Yes Univers 50 mg 4-12 ity of tablet 00:00: [facility] predniSONE 2-0 Yes Univers 50 mg 4-12 ity of tablet 00:00: [facility] predniSONE 2-0 Yes Univers 50 mg 4-12 ity of tablet 00:00: [place] [facility] predniSONE 2022-0 Yes Univers 50 mg 4-12 ity of tablet 00:00: Medical Branch predniSONE 2022-0 Yes Univers 50 mg 4-12 ity of tablet 00:00: Medical Branch predniSONE 2022-0 Yes Univers 50 mg 4-12 ity of tablet 00:00: Medical Branch predniSONE 2022-0 Yes Univers 50 mg 4-12 ity of tablet 00:00: [place] [facility] predniSONE 2022-0 Yes Univers 50 mg 4-12 ity of tablet 00:00: [place] [facility] predniSONE 2022-0 Yes Univers 50 mg 4-12 ity of tablet 00:00: [place] [facility] predniSONE 2022-0 Yes Univers 50 mg 4-12 ity of tablet 00:00: [place] [facility] methotrexat 2022-0 Yes TAKE 5 Univ ers e 2.5 mg 4-07 TABLETS BY ity o f tablet 00:00: MOUTH 1 [place] TIME Medical WEEKLY Branch methotrexat 2-0 Yes TAKE 5 Univ ers e 2.5 mg 4-07 TABLETS BY ity o f tablet 00:00: MOUTH 1 TIME Medical WEEKLY Branch methotrexat 2022-0 Yes TAKE 5 Univ ers e 2.5 mg 4-07 TABLETS BY ity o f tablet 00:00: MOUTH 1 TIME Medical WEEKLY Branch methotrexat 2-0 Yes TAKE 5 Univ ers e 2.5 mg 4-07 TABLETS BY ity o f tablet 00:00: MOUTH 1 [place] TIME Medical WEEKLY Branch methotrexat 2-0 Yes TAKE 5 Univ ers e 2.5 mg 4-07 TABLETS BY ity o f tablet 00:00: MOUTH 1 TIME Medical WEEKLY Branch methotrexat 2022-0 Yes TAKE 5 Univ ers e 2.5 mg 4-07 TABLETS BY ity o f tablet 00:00: MOUTH 1 TIME Medical WEEKLY Branch methotrexat 2022-0 Yes TAKE 5 Univ ers e 2.5 mg 4-07 TABLETS BY ity o f tablet 00:00: MOUTH 1 [place] TIME Medical WEEKLY Branch methotrexat 2022-0 Yes TAKE 5 Univ ers e 2.5 mg 4-07 TABLETS BY ity o f tablet 00:00: MOUTH 1 [place] TIME Medical WEEKLY Branch methotrexat 2022-0 Yes TAKE 5 Univ ers e 2.5 mg 4-07 TABLETS BY ity o f tablet 00:00: MOUTH 1 [place] TIME Medical WEEKLY Branch methotrexat 2022-0 Yes TAKE 5 Univ ers e 2.5 [...] 1 TIME Medical WEEKLY Branch TRESIBA Yes [id number] 26U INJECT 26 U nivers FLEXTOUCH 4-06 UNITS ity of U-100 100 00:00: UNDER THE [place] as unit/mL (3 00 SKIN Medical mL) InPn DAILY. MAX Branc h DAILY DOSE OF 40 UNITS TRESIBA 2021-0 Yes [id number] 26U INJECT 26 U nivers FLEXTOUCH 4-06 UNITS ity of U-100 100 00:00: UNDER THE [place] as unit/mL (3 00 SKIN Medical mL) InPn DAILY. MAX Branc h DAILY DOSE OF 40 UNITS TRESIBA 2-0 Yes [id number] 26U INJECT 26 U nivers FLEXTOUCH 4-06 UNITS ity of U-100 100 00:00: UNDER THE [place] as unit/mL (3 00 SKIN Medical mL) InPn DAILY. MAX Branc h DAILY DOSE OF 40 UNITS TRESIBA 2-0 Yes [id number] 26U INJECT 26 U nivers FLEXTOUCH 4-06 UNITS ity of U-100 100 00:00: UNDER THE [place] as unit/mL (3 00 SKIN Medical mL) InPn DAILY. MAX Branc h DAILY DOSE OF 40 UNITS TRESIBA 2022-0 Yes [id number] 26U INJECT 26 U nivers FLEXTOUCH 4-06 UNITS ity of U-100 100 00:00: UNDER THE [place] as unit/mL (3 00 SKIN Medical mL) InPn DAILY. MAX Branc h DAILY DOSE OF 40 UNITS TRESIBA 2-0 Yes [id number] 26U INJECT 26 U nivers FLEXTOUCH 4-06 UNITS ity of U-100 100 00:00: UNDER THE [place] as unit/mL (3 00 SKIN Medical mL) InPn DAILY. MAX Branc h DAILY DOSE OF 40 UNITS TRESIBA 2021-0 Yes [id number] 26U INJECT 26 U nivers FLEXTOUCH 4-06 UNITS ity of U-100 100 00:00: UNDER THE [place] as unit/mL (3 00 SKIN Medical mL) InPn DAILY. MAX Branc h DAILY DOSE OF 40 UNITS TRESIBA 2021-0 Yes [id number] 26U INJECT 26 U nivers FLEXTOUCH 4-06 UNITS ity of U-100 100 00:00: UNDER THE [place] as unit/mL (3 00 SKIN Medical mL) InPn DAILY. MAX Branc h DAILY DOSE OF 40 UNITS TRESIBA 2021-0 Yes [id number] 26U INJECT 26 U nivers FLEXTOUCH 4-06 UNITS ity of U-100 100 00:00: UNDER THE [place] as unit/mL (3 00 SKIN Medical mL) InPn DAILY. MAX Branc h DAILY DOSE OF 40 UNITS TRESIBA 2021-0 Yes [id number] 26U INJECT 26 U nivers FLEXTOUCH 4-06 UNITS ity of U-100 100 00:00: UNDER THE [place] as unit/mL (3 00 SKIN Medical mL) InPn DAILY. MAX Branc h DAILY DOSE OF 40 UNITS TRESIBA 2021-0 Yes [id number] 26U INJECT 26 U nivers FLEXTOUCH 4-06 UNITS ity of U-100 100 00:00: UNDER THE [place] as unit/mL (3 00 SKIN Medical mL) InPn DAILY. MAX Branc h DAILY DOSE OF 40 UNITS TRESIBA 2-0 Yes [id number] 26U INJECT 26 U nivers FLEXTOUCH 4-06 UNITS ity of U-100 100 00:00: UNDER THE [place] as unit/mL (3 00 SKIN Medical mL) InPn DAILY. MAX Branc h DAILY DOSE OF 40 UNITS TRESIBA 2-0 2023- No [id number] 26U INJECT 26 Univers FLEXTOUCH 4-06 04-03 UNITS ity of U-100 100 00:00: 00:00 [place] unit/mL (3 00 :00 SKIN Medical mL) InPn DAILY. MAX Branc h DAILY DOSE OF 40 UNITS TRESIBA 0 3- No [id number] 26U INJECT 26 Univers FLEXTOUCH 4 04-03 UNITS ity of U-100 100 00:00: 00:00 [place] unit/mL (3 00 :00 SKIN Medical mL) InPn DAILY. MAX Branc h DAILY DOSE OF 40 UNITS atorvastati 0 Yes 40mg Take 1 Univ ers n 40 mg 1-20 tablet by ity of tablet 00:00: mouth at [place] [address] bedtime. Medical Branch atorvastati 0 Yes 40mg Take 1 Univ ers n 40 mg 1-20 tablet by ity of tablet 00:00: mouth at [place] [address] bedtime. Medical Branch atorvastati 0 Yes 40mg Take 1 Univ ers n 40 mg 1-20 tablet by ity of tablet 00:00: mouth at [place] bedtime. Medical Branch atorvastati 0 Yes 40mg Take 1 Univ ers n 40 mg 1-20 tablet by ity of tablet 00:00: mouth at [place] bedtime. Medical Branch atorvastati 0 Yes 40mg Take 1 Univ ers n 40 mg 1-20 tablet by ity of tablet 00:00: mouth at [place] bedtime. Medical Branch atorvastati 0 Yes 40mg Take 1 Univ ers n 40 mg 1-20 tablet by ity of tablet 00:00: mouth at [place] [address] bedtime. Medical Branch atorvastati 2021-0 Yes 40mg Take 1 Univ ers n 40 mg 1-20 tablet by ity of tablet 00:00: mouth at [place] [address] bedtime. Medical Branch atorvastati 2021-0 Yes 40mg Take 1 Univ ers n 40 mg 1-20 tablet by ity of tablet 00:00: mouth at [place] bedtime. Medical Branch atorvastati 2021-0 Yes 40mg Take 1 Univ ers n 40 mg 1-20 tablet by ity of tablet 00:00: mouth at [place] [address] bedtime. Medical Branch atorvastati 2021-0 Yes 40mg Take 1 Univ ers n 40 mg 1-20 tablet by ity of tablet 00:00: mouth at [place] [address] bedtime. Medical Branch atorvastati 2022-0 Yes 40mg Take 1 Univ ers n 40 mg 1-20 tablet by ity of tablet 00:00: mouth at bedtime. Medical Branch atorvastati 2022-0 Yes 40mg Take 1 Univ ers n 40 mg 1-20 tablet by ity of tablet 00:00: mouth at bedtime. Medical Branch atorvastati 2022-0 Yes 40mg Take 1 Univ ers n 40 mg 1-20 tablet by ity of tablet 00:00: mouth at bedtime. Medical Branch atorvastati 2022-0 Yes 40mg Take 1 Univ ers n 40 mg 1-20 tablet by ity of tablet 00:00: mouth at bedtime. Medical Branch gabapentin 2022-0 Yes [id number] 600mg Take 1 Univers 600 mg 1-07 tablet by ity of tablet 00:00: mouth (two) Medical times Branch daily. gabapentin 2022-0 Yes [id number] 600mg Take 1 Univers 600 mg 1-07 tablet by ity of tablet 00:00: mouth (two) Medical times Branch daily. gabapentin 2022-0 Yes [id number] 600mg Take 1 Univers 600 mg 1-07 tablet by ity of tablet 00:00: mouth (two) Medical times Branch daily. gabapentin 2022-0 Yes [id number] 600mg Take 1 Univers 600 mg 1-07 tablet by ity of tablet 00:00: mouth (two) Medical times Branch daily. gabapentin 2022-0 Yes [id number] 600mg Take 1 Univers 600 mg 1-07 tablet by ity of tablet 00:00: mouth (two) Medical times Branch daily. gabapentin 2022-0 Yes [id number] 600mg Take 1 Univers 600 mg 1-07 tablet by ity of tablet 00:00: mouth (two) Medical times Branch daily. gabapentin 2022-0 Yes [id number] 600mg Take 1 Univers 600 mg 1-07 tablet by ity of tablet 00:00: mouth (two) Medical times Branch daily. gabapentin 2022-0 Yes [id number] 600mg Take 1 Univers 600 mg 1-07 tablet by ity of tablet 00:00: mouth (two) Medical times Branch daily. gabapentin 2022-0 Yes [id number] 600mg Take 1 Univers 600 mg 1-07 tablet by ity of tablet 00:00: mouth 2 [place] 00 (two) Medical times Branch daily. gabapentin 2022-0 Yes [id number] 600mg Take 1 Univers 600 mg 1-07 tablet by ity of tablet 00:00: mouth 2 [place] (two) Medical times Branch daily. gabapentin 2022-0 Yes [id number] 600mg Take 1 Univers 600 mg 1-07 tablet by ity of tablet 00:00: mouth 2 (two) Medical times Branch daily. gabapentin 2022-0 Yes [id number] 600mg Take 1 Univers 600 mg 1-07 tablet by ity of tablet 00:00: mouth 2 00 (two) Medical times Branch daily. gabapentin 2022-0 Yes [id number] 600mg Take 1 Univers 600 mg 1-07 tablet by ity of tablet 00:00: mouth 2 (two) Medical times Branch daily. gabapentin 2022-0 Yes [id number] 600mg Take 1 Univers 600 mg 1-07 tablet by ity of tablet 00:00: mouth 2 (two) Medical times Branch daily. ISOSORBIDE 2020-1 Yes [id number] 30mg TAKE 1 U nivers MONONITRATE 2-10 TABLET BY ity of 30 mg 24 hr 00:00: MOUTH [place] tablet 00 DAILY Medical Branch ISOSORBIDE 2020-1 Yes [id number] 30mg TAKE 1 U nivers MONONITRATE 2-10 TABLET BY ity of 30 mg 24 hr 00:00: MOUTH [place] tablet 00 DAILY Medical Branch ISOSORBIDE 2020-1 Yes [id number] 30mg TAKE 1 U nivers MONONITRATE 2-10 TABLET BY ity of 30 mg 24 hr 00:00: MOUTH [place] tablet 00 DAILY Medical Branch ISOSORBIDE 1-1 Yes [id number] 30mg TAKE 1 U nivers MONONITRATE 2-10 TABLET BY ity of 30 mg 24 hr 00:00: MOUTH [place] tablet 00 DAILY Medical Branch ISOSORBIDE 1-1 Yes [id number] 30mg TAKE 1 U nivers MONONITRATE 2-10 TABLET BY ity of 30 mg 24 hr 00:00: MOUTH [place] tablet 00 DAILY Medical Branch ISOSORBIDE 2020-1 Yes [id number] 30mg TAKE 1 U nivers MONONITRATE 2-10 TABLET BY ity of 30 mg 24 hr 00:00: MOUTH [place] tablet 00 DAILY Medical Branch ISOSORBIDE 2020-03 Yes [id number] 30mg TAKE 1 U nivers MONONITRATE 2-10 TABLET BY ity of 30 mg 24 hr 00:00: MOUTH [place] tablet 00 DAILY Medical Branch ISOSORBIDE 2020-03 Yes [id number] 30mg TAKE 1 U nivers MONONITRATE 2-10 TABLET BY ity of 30 mg 24 hr 00:00: MOUTH [place] tablet 00 DAILY Medical Branch ISOSORBIDE 2020-03 Yes [id number] 30mg TAKE 1 U nivers MONONITRATE 2-10 TABLET BY ity of 30 mg 24 hr 00:00: MOUTH [place] tablet 00 DAILY Medical Branch ISOSORBIDE 2020-03 Yes [id number] 30mg TAKE 1 U nivers MONONITRATE 2-10 TABLET BY ity of 30 mg 24 hr 00:00: MOUTH [place] tablet DAILY Medical Branch ISOSORBIDE 2020-03 Yes [id number] 30mg TAKE 1 U nivers MONONITRATE 2-10 TABLET BY ity of 30 mg 24 hr 00:00: MOUTH [place] tablet 00 DAILY Medical Branch ISOSORBIDE 2020-03 Yes [id number] 30mg TAKE 1 U nivers MONONITRATE 2-10 TABLET BY ity of 30 mg 24 hr 00:00: MOUTH [place] tablet 00 DAILY Medical Branch ISOSORBIDE 2020-03 Yes [id number] 30mg TAKE 1 U nivers MONONITRATE 2-10 TABLET BY ity of 30 mg 24 hr 00:00: MOUTH [place] tablet 00 DAILY Medical Branch ISOSORBIDE 2020-03 Yes [id number] 30mg TAKE 1 U nivers MONONITRATE 2-10 TABLET BY ity of 30 mg 24 hr 00:00: MOUTH [place] tablet 00 DAILY Medical Branch insulin 2020-03 Yes [id number] INJECT 10 U nivers aspart 2-09 UNITS ity of U-100 00:00: SUBCUTANEO [place] (NOVOLOG 00 US BEFORE Medica l FLEXPEN EACH MEAL Branch U-100 AND INSULIN) SLIDING 100 unit/mL SCALE. MAX (3 mL) DAILY DOSE injection OF 40 UNITS insulin 2020-03 Yes [id number] INJECT 10 U nivers aspart 2-09 UNITS ity of U-100 00:00: SUBCUTANEO [place] (NOVOLOG 00 US BEFORE Medica l FLEXPEN EACH MEAL Branch U-100 AND INSULIN) SLIDING 100 unit/mL SCALE. MAX (3 mL) DAILY DOSE injection OF 40 UNITS insulin 2020-03 Yes [id number] INJECT 10 U nivers aspart 2-09 UNITS ity of U-100 00:[facility] [place] [facility] US BEFORE Medica l FLEXPEN EACH MEAL Branch U-100 AND INSULIN) SLIDING 100 unit/mL SCALE. MAX (3 mL) DAILY DOSE injection OF 40 UNITS insulin 2020-03 Yes [id number] INJECT 10 U nivers aspart 2-09 UNITS ity of U-100 00:00: [facility] [place] (NOV[facility] 00 US BEFORE Medica l FLEXPEN EACH MEAL Branch U-100 AND INSULIN) SLIDING 100 unit/mL SCALE. MAX (3 mL) DAILY DOSE injection OF 40 UNITS insulin 2020-03 Yes [id number] INJECT 10 U nivers aspart 2-09 UNITS ity of U-100 00:[facility] [place] [facility] US BEFORE Medica l FLEXPEN EACH MEAL Branch U-100 AND INSULIN) SLIDING 100 unit/mL SCALE. MAX (3 mL) DAILY DOSE injection OF 40 UNITS insulin 2020-03 Yes [id number] INJECT 10 U nivers aspart 2-09 UNITS ity of U-100 00:00: [facility] (NOVOLOG 00 US BEFORE Medica l FLEXPEN EACH MEAL Branch U-100 AND INSULIN) SLIDING 100 unit/mL SCALE. MAX (3 mL) DAILY DOSE injection OF 40 UNITS insulin 2020-03 Yes [id number] INJECT 10 U nivers aspart 2-09 UNITS ity of U-100 00:00: [facility] (NOVOLOG 00 US BEFORE Medica l FLEXPEN EACH MEAL Branch U-100 AND INSULIN) SLIDING 100 unit/mL SCALE. MAX (3 mL) DAILY DOSE injection OF 40 UNITS insulin 2020-03 Yes [id number] INJECT 10 U nivers aspart 2-09 UNITS ity of U-100 00:00[facility] [place] (NOVOLOG 00 US BEFORE Medica l FLEXPEN EACH MEAL Branch U-100 AND INSULIN) SLIDING 100 unit/mL SCALE. MAX (3 mL) DAILY DOSE injection OF 40 UNITS insulin 2020-03 Yes [id number] INJECT 10 U nivers aspart 2-09 UNITS ity of U-100 00:00: [facility] [place] ([facility] 00 US BEFORE Medica l FLEXPEN EACH MEAL Branch U-100 AND INSULIN) SLIDING 100 unit/mL SCALE. MAX (3 mL) DAILY DOSE injection OF 40 UNITS insulin 2020-03 Yes [id number] INJECT 10 U nivers aspart 2-09 UNITS ity of U-100 00:00: [facility] (NOVOLOG 00 US BEFORE Medica l FLEXPEN EACH MEAL Branch U-100 AND INSULIN) SLIDING 100 unit/mL SCALE. MAX (3 mL) DAILY DOSE injection OF 40 UNITS insulin 2020-03 Yes [id number] INJECT 10 U nivers aspart 2-09 UNITS ity of U-100 00:00: [facility] (NOVOLOG 00 US BEFORE Medica l FLEXPEN EACH MEAL Branch U-100 AND INSULIN) SLIDING 100 unit/mL SCALE. MAX (3 mL) DAILY DOSE injection OF 40 UNITS insulin 2020-03 Yes [id number] INJECT 10 U nivers aspart 2-09 UNITS ity of U-100 00:00: [facility] (NOVOLOG 00 US BEFORE Medica l FLEXPEN EACH MEAL Branch U-100 AND INSULIN) SLIDING 100 unit/mL SCALE. MAX (3 mL) DAILY DOSE injection OF 40 UNITS insulin 2020-03- No [id number] INJECT 10 Univers aspart 2-09 04-03 UNITS ity of U-100 00:00: 00:00 [facility] (NOVOLOG 00 :00 US BEFORE Medica l FLEXPEN EACH MEAL Branch U-100 AND INSULIN) SLIDING 100 unit/mL SCALE. MAX (3 mL) DAILY DOSE injection OF 40 UNITS insulin 2020-03- No [id number] INJECT 10 Univers aspart 2-09 04-03 UNITS ity of U-100 00:00: 00:00 [facility] (NOVOLOG 00 :00 US BEFORE Medica l FLEXPEN EACH MEAL [...] of mg tablet 00:00: mouth 2 (two) [facility] times [place] daily. Dextran 2020-03 Yes 1[drp] Place 1 Unive rs 70-Hypromel 0-29 Drop in ity o f lose 13:25: both eyes [place] (ARTIFICIAL 33 as needed. Me dical TEARS) [facility] methotrexat 2020-03 Yes 20mg Take 20 mg Univers e 5 mg 0-29 by mouth ity of tablet 13:25: weekly. [address] Dextran 2020-03 Yes 1[drp] Place 1 Unive rs 70-Hypromel 0-29 Drop in ity o f lose 13:25: both eyes [place] (ARTIFICIAL 33 as needed. Me dical TEARS) [facility] methotrexat 2020-03 Yes 20mg Take 20 mg Univers e 5 mg 0-29 by mouth ity of tablet 13:25: weekly. [address] Dextran 2020-03 Yes 1[drp] Place 1 Unive rs 70-Hypromel 0-29 Drop in ity o f lose 13:25: both eyes [place] (ARTIFICIAL 33 as needed. Me dical TEARS) [facility] methotrexat 2020-03 Yes 20mg Take 20 mg Univers e 5 mg 0-29 by mouth ity of tablet 13:25: weekly. [address] Dextran 2020-03 Yes 1[drp] Place 1 Unive rs 70-Hypromel 0-29 Drop in ity o f lose 13:25: both eyes [place] (ARTIFICIAL 33 as needed. Me dical TEARS) [facility] methotrexat 2020-03 Yes 20mg Take 20 mg Univers e 5 mg 0-29 by mouth ity of tablet 13:25: weekly. [address] Dextran 2020-03 Yes 1[drp] Place 1 Unive rs 70-Hypromel 0-29 Drop in ity o f lose 13:25: both eyes [place] (ARTIFICIAL 33 as needed. Me dical TEARS) [facility] methotrexat 2020-03 Yes 20mg Take 20 mg Univers e 5 mg 0-29 by mouth ity of tablet 13:25: weekly. [address] Dextran 2020-03 Yes 1[drp] Place 1 Unive rs 70-Hypromel 0-29 Drop in ity o f lose 13:25: both eyes [place] (ARTIFICIAL 33 as needed. Me dical TEARS) [facility] methotrexat 2020-03 Yes 20mg Take 20 mg Univers e 5 mg 0-29 by mouth ity of tablet 13:25: weekly. [address] Dextran 2020-03 Yes 1[drp] Place 1 Unive rs 70-Hypromel 0-29 Drop in ity o f lose 13:25: both eyes [place] (ARTIFICIAL 33 as needed. Me dical TEARS) [facility] methotrexat 2020-03 Yes 20mg Take 20 mg Univers e 5 mg 0-29 by mouth ity of tablet 13:25: weekly. [address] Dextran 2020-03 Yes 1[drp] Place 1 Unive rs 70-Hypromel 0-29 Drop in ity o f lose 13:25: both eyes [place] (ARTIFICIAL 33 as needed. Me dical TEARS) [facility] methotrexat 2020-03 Yes 20mg Take 20 mg Univers e 5 mg 0-29 by mouth ity of tablet 13:25: weekly. [address] Dextran 2020-03 Yes 1[drp] Place 1 Unive rs 70-Hypromel 0-29 Drop in ity o f lose 13:25: both eyes [place] (ARTIFICIAL 33 as needed. Me dical TEARS) [facility] methotrexat 2020-03 Yes 20mg Take 20 mg Univers e 5 mg 0-29 by mouth ity of tablet 13:25: weekly. [address] Dextran 2020-03 Yes 1[drp] Place 1 Unive rs 70-Hypromel 0-29 Drop in ity o f lose 13:25: both eyes [place] (ARTIFICIAL 33 as needed. Me dical TEARS) [facility] methotrexat 2020-03 Yes 20mg Take 20 mg Univers e 5 mg 0-29 by mouth ity of tablet 13:25: weekly. [address] Dextran 2020-03 Yes 1[drp] Place 1 Unive rs 70-Hypromel 0-29 Drop in ity o f lose 13:25: both eyes [place] (ARTIFICIAL 33 as needed. Me dical TEARS) [facility] methotrexat 2020-03 Yes 20mg Take 20 mg Univers e 5 mg 0-29 by mouth ity of tablet 13:25: weekly. [address] Dextran 2020-03 Yes 1[drp] Place 1 Unive rs 70-Hypromel 0-29 Drop in ity o f lose 13:25: both eyes [place] (ARTIFICIAL 33 as needed. Me dical TEARS) [facility] methotrexat 2020-03 Yes 20mg Take 20 mg Univers e 5 mg 0-29 by mouth ity of tablet 13:25: weekly. [address] Dextran 2020-03 Yes 1[drp] Place 1 Unive rs 70-Hypromel 0-29 Drop in ity o f lose 13:25: both eyes [place] (ARTIFICIAL 33 as needed. Me dical TEARS) [facility] methotrexat 2020-03 Yes 20mg Take 20 mg Univers e 5 mg 0-29 by mouth ity of tablet 13:25: weekly. [address] Dextran 2020-03 Yes 1[drp] Place 1 Unive rs 70-Hypromel 0-29 Drop in ity o f lose 13:25: both eyes [place] (ARTIFICIAL 33 as needed. Me dical TEARS) [facility] methotrexat 2020-03 Yes 20mg Take 20 mg Univers e 5 mg 0-29 by mouth ity of tablet 13:25: weekly. [address] foLIC acid 2020-03 Yes 1mg Take 1 mg Un alex 1 mg tablet 0-29 by mouth ity of 13:15: daily. [place] [id number] except on Medical date of Branch methotrexa te foLIC acid 2020-03 Yes 1mg Take 1 mg Un alex 1 mg tablet 0-29 by mouth ity of 13:15: daily. [place] 17 except on Medical date of Branch methotrexa te foLIC acid 2020-03 Yes 1mg Take 1 mg Un alex 1 mg tablet 0-29 by mouth ity of 13:15: daily. [place] 17 except on Medical date of Branch methotrexa te foLIC acid 2020-03 Yes 1mg Take 1 mg Un alex 1 mg tablet 0-29 by mouth ity of 13:15: daily. [place] 17 except on Medical date of Branch [...] 0-29 by mouth ity of 13:15: daily. [place] 17 except on Medical date of Branch methotrexa te foLIC acid 2020-03 Yes 1mg Take 1 mg Un alex 1 mg tablet 0-29 by mouth ity of 13:15: daily. [place] 17 except on Medical date of Branch methotrexa te foLIC acid 2020-03 Yes 1mg Take 1 mg Un alex 1 mg tablet 0-29 by mouth ity of 13:15: daily. [place] 17 except on Medical date of Branch methotrexa te foLIC acid 2020-03 Yes 1mg Take 1 mg Un alex 1 mg tablet 0-29 by mouth ity of 13:15: daily. [place] 17 except on Medical date of Branch methotrexa te foLIC acid 2020-03 Yes 1mg Take 1 mg Un alex 1 mg tablet 0-29 by mouth ity of 13:15: daily. [place] 17 except on Medical date of Branch methotrexa te foLIC acid 2020-03 Yes 1mg Take 1 mg Un alex 1 mg tablet 0-29 by mouth ity of 13:15: daily. [place] 17 except on Medical date of Branch methotrexa te DULoxetine 2020-03 Yes [id number] 20mg Take 1 U nivers 20 mg 0-29 capsule by ity of capsule 00:00: mouth [place] 00 every Medical morning. Branch DULoxetine 2020-03 Yes [id number] 20mg Take 1 U nivers 20 mg 0-29 capsule by ity of capsule 00:00: mouth [place] 00 every Medical morning. Branch DULoxetine 2020-03 Yes [id number] 20mg Take 1 U nivers 20 mg 0-29 capsule by ity of capsule 00:00: mouth [place] 00 every Medical morning. Branch DULoxetine 2020-03 Yes [id number] 20mg Take 1 U nivers 20 mg 0-29 capsule by ity of capsule 00:00: mouth [place] 00 every Medical morning. Branch DULoxetine 2020-03 Yes [id number] 20mg Take 1 U nivers 20 mg 0-29 capsule by ity of capsule 00:00: mouth [place] 00 every Medical morning. Branch DULoxetine 2020-03 Yes [id number] 20mg Take 1 U nivers 20 mg 0-29 capsule by ity of capsule 00:00: mouth [place] 00 every Medical morning. Branch DULoxetine 2020-03 Yes [id number] 20mg Take 1 U nivers 20 mg 0-29 capsule by ity of capsule 00:00: mouth [place] 00 every Medical morning. Branch DULoxetine 2020-03 Yes [id number] 20mg Take 1 U nivers 20 mg 0-29 capsule by ity of capsule 00:00: mouth [place] 00 every Medical morning. Branch DULoxetine 2020-03 Yes [id number] 20mg Take 1 U nivers 20 mg 0-29 capsule by ity of capsule 00:00: mouth [place] 00 every Medical morning. Branch DULoxetine 2020-03 Yes [id number] 20mg Take 1 U nivers 20 mg 0-29 capsule by ity of capsule 00:00: mouth [place] 00 every Medical morning. Branch DULoxetine 2020-03 Yes [id number] 20mg Take 1 U nivers 20 mg 0-29 capsule by ity of capsule 00:00: mouth [place] 00 every Medical morning. Branch DULoxetine 2020-03 Yes [id number] 20mg Take 1 U nivers 20 mg 0-29 capsule by ity of capsule 00:00: mouth [place] 00 every Medical morning. Branch DULoxetine 2020-03 Yes [id number] 20mg Take 1 U nivers 20 mg 0-29 capsule by ity of capsule 00:00: mouth [place] 00 every Medical morning. Branch DULoxetine 2020-03 Yes [id number] 20mg Take 1 U nivers 20 mg 0-29 capsule by ity of capsule 00:00: mouth [place] 00 every Medical morning. Branch empaglifloz 2020-03 Yes [id number] 1{tbl} Take 1 Univers in-metformi 0-11 tablet by ity of n (SYNJARDY 00:00: mouth [place] XR) 00 daily. Medical 25-1,000 mg Branch TBph Insulin 2020-03 Yes [id number] Use as Univ ers [place], 0-11 directed 4 ity o f Disposable, 00:00: times [place] (PEN 00 daily. Medical NEEDLES) 31 E11.65 Branch gauge x 1/4" Ndle empaglifloz 2020-03 Yes [id number] 1{tbl} Take 1 Univers in-metformi 0-11 tablet by ity of n (SYNJARDY 00:00: mouth [place] XR) 00 daily. Medical 25-1,000 mg Branch TBph Insulin 2020-03 Yes [id number] Use as Univ ers [place], 0-11 directed 4 ity o f Disposable, 00:00: times [place] (PEN 00 daily. Medical NEEDLES) 31 E11.65 Branch gauge x 1/4" Ndle empaglifloz 2020-03 Yes [id number] 1{tbl} Take 1 Univers in-metformi 0-11 tablet by ity of n (SYNJARDY 00:00: mouth [place] XR) 00 daily. Medical 25-1,000 mg Branch TBph Insulin 2020-03 Yes [id number] Use as Univ ers [place], 0-11 directed 4 ity o f Disposable, 00:00: times [place] (PEN 00 daily. Medical NEEDLES) 31 E11.65 Branch gauge x 1/4" Ndle Insulin 2020-03 Yes [id number] Use as Univ ers [place], 0-11 directed 4 ity o f Disposable, 00:00: times [place] (PEN 00 daily. Medical NEEDLES) 31 E11.65 Branch gauge x 1/4" Ndle Insulin 2020-03 Yes [id number] Use as Univ ers [place], 0-11 directed 4 ity o f Disposable, 00:00: times [place] (PEN 00 daily. Medical NEEDLES) 31 E11.65 Branch gauge x 1/4" Ndle Insulin 2020-03 Yes [id number] Use as Univ ers [place], 0-11 directed 4 ity o f Disposable, 00:00: times [place] (PEN 00 daily. Medical NEEDLES) 31 E11.65 Branch gauge x 1/4" Ndle Insulin 2020-03 Yes [id number] Use as Univ ers [place], 0-11 directed 4 ity o f Disposable, 00:00: times [place] (PEN 00 daily. Medical NEEDLES) 31 E11.65 Branch gauge x 1/4" Ndle Insulin 2020-03 Yes [id number] Use as Univ ers [place], 0-11 directed 4 ity o f Disposable, 00:00: times [place] (PEN 00 daily. Medical NEEDLES) 31 E11.65 Branch gauge x 1/4" Ndle Insulin 2020-03 Yes [id number] Use as Univ ers [place], 0-11 directed 4 ity o f Disposable, 00:00: times [place] (PEN 00 daily. Medical NEEDLES) 31 E11.65 Branch gauge x 1/4" Ndle Insulin 2020-033- No [id number] Use as Uni vers [place], 0-11 -24 directed 4 ity of Disposable, 00:00: 00:00 [place] (PEN 00 :00 daily. Medical NEEDLES) 31 E11.65 Branch gauge x 1/4" Ndle empaglifloz 2020-03- No [id number] 1{tbl} Take 1 Univers in-metformi 0-11 12-12 tablet by it y of n (SYNJARDY 00:00: 00:00 [place] XR) 00 :00 daily. Medical 25-1,000 mg Branch TBph empaglifloz 2020-03- No [id number] 1{tbl} Take 1 Univers in-metformi 0-11 12-12 tablet by it y of n (SYNJARDY 00:00: 00:00 [place] XR) 00 :00 daily. Medical 25-1,000 mg Branch TBph HYDROcodone 2020-03 Yes TAKE 1 Univ ers [...] 6 Medical HOURS Branch NEEDED losartan 50 2020- Yes 50mg Take 50 mg Univers mg tablet 12-06 by mouth 2 ity of 17:16: (two) [place] 24 times Medical daily. Branch losartan 50 2020- Yes 50mg Take 50 mg Univers mg [...] 24 times Medical daily. 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) Misc Blood-Gluco 202-0 Yes [id number] Use as Univers se Sensor 8-04 directed ity of (DEXCOM G6 00:00: [place] SENSOR) 00 Medical Yolanda Branch Blood-Gluco 202-0 Yes [id number] Use as Univers se 8-04 directed ity of Transmitter 00:00: [place] (DEXCOM G6 00 Medical TRANSMITTER Branch ) Yolanda Blood-Gluco 202-0 Yes [id number] Use as Univers se 8-04 directed ity of [place],Josué 00:00: [place] nuous 00 Medical (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 G6 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 MARSH BUGGY 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) Misc Blood-Gluco 202-0 Yes [id number] Use as Univers se Sensor 8-04 directed ity of (DEXCOM G6 00:00: [place] SENSOR) 00 Medical Yolanda Branch Blood-Gluco 202-0 Yes [id number] Use as Univers se 8-04 directed ity of Transmitter 00:00: [place] (DEXCOM G6 00 Medical TRANSMITTER Branch ) Yolanda Blood-Gluco 202-0 Yes [id number] Use as Univers se 8-04 directed ity of [place],Josué 00:00: [place] nuous 00 Medical (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 G6 Branch MARSH BUGGY OPERATOR) Misc Blood-Gluco 202-0 Yes [id number] Use as Univers se 8-04 directed ity of Transmitter 00:00: [place] (DEXCOM G6 00 Medical TRANSMITTER Branch ) Yolanda Blood-Gluco 2021-0 Yes [id number] Use as Univers se 8-04 directed ity of Meter,Josué 00:00: [place] nuous 00 Medical (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 G6 Branch MARSH BUGGY OPERATOR) Misc Blood-Gluco 2021-0 Yes [id number] Use as Univers se 8-04 directed ity of Transmitter 00:00: [place] (DEXCOM G6 00 Medical TRANSMITTER Branch ) Yolanda Blood-Gluco 2021-0 Yes [id number] Use as Univers se 8-04 directed ity of [place],Josué 00:00: [place] nuous 00 Medical (DEXCOM G6 Branch MARSH BUGGY OPERATOR) Misc Blood-Gluco 2021-0 Yes [id number] Use as Univers se 8-04 directed ity of Transmitter 00:00: [place] (DEXCOM G6 00 Medical TRANSMITTER Branch ) Yolanda Blood-Gluco 2021-0 Yes [id number] Use as Univers se 8-04 directed ity of [place],Josué 00:00: [place] nuous 00 Medical (DEXCOM G6 Branch MARSH BUGGY OPERATOR) Misc Blood-Gluco 2021-0 Yes [id number] Use as Univers se 8-04 directed ity of Transmitter 00:00: [place] (DEXCOM G6 00 Medical TRANSMITTER Branch ) Yolanda Blood-Gluco 202-0 Yes [id number] Use as Univers se 8-04 directed ity of [place],Josué 00:00: [place] nuous 00 Medical (DEXCOM G6 Branch MARSH BUGGY OPERATOR) Misc Blood-Gluco 2021-0 Yes [id number] Use as Univers se 8-04 directed ity of Transmitter 00:00: [place] (DEXCOM G6 00 Medical TRANSMITTER Branch ) Yolanda Blood-Gluco 202-0 Yes [id number] Use as Univers se 8-04 directed ity of [place],Josué 00:00: [place] nuous 00 Medical (DEXCOM G6 Branch MARSH BUGGY OPERATOR) Misc Blood-Gluco 2021-0 Yes [id number] Use as Univers se 8-04 directed ity of Transmitter 00:00: [place] (DEXCOM G6 00 Medical TRANSMITTER Branch ) Yolanda Blood-Gluco 2021-0 Yes [id number] Use as Univers se 8-04 directed ity of M[place],Josué 00:00: [place] nuous 00 Medical (DEXCOM G6 Branch MARSH BUGGY OPERATOR) Misc Blood-Gluco 2021-0 Yes [id number] Use as Univers se 8-04 directed ity of Transmitter 00:00: [place] (DEXCOM G6 00 Medical TRANSMITTER Branch ) Yolanda Blood-Gluco 2021-0 Yes [id number] Use as Univers se 8-04 directed ity of Meter,Josué 00:00: [place] nuous 00 Medical (DEXCOM G6 Branch MARSH BUGGY OPERATOR) Misc Blood-Gluco 2021-0 Yes [id number] Use as Univers se 8-04 directed ity of Transmitter 00:00: [place] (DEXCOM G6 00 Medical TRANSMITTER Branch ) Yolanda Blood-Gluco 202-0 Yes [id number] Use as Univers se 8-04 directed ity of Meter,Josué 00:00: [place] nuous 00 Medical (DEXCOM G6 Branch MARSH BUGGY OPERATOR) Misc Blood-Gluco 202-0 Yes [id number] Use as Univers se 8-04 directed ity of Transmitter 00:00: [place] (DEXCOM G6 00 Medical TRANSMITTER Branch ) Yolanda Blood-Gluco 202-0 Yes [id number] Use as Univers se 8-04 directed ity of Meter,Josué 00:00: [place] nuous 00 Medical (DEXCOM G6 Branch MARSH BUGGY OPERATOR) Misc Blood-Gluco 202-0 Yes [id number] Use as Univers se 8-04 directed ity of Transmitter 00:00: [place] (DEXCOM G6 00 Medical TRANSMITTER Branch ) Yolanda Blood-Gluco 202-0 Yes [id number] Use as Univers se 8-04 directed ity of Meter,Josué 00:00: [place] nuous 00 Medical (DEXCOM G6 Branch MARSH BUGGY OPERATOR) Misc Blood-Gluco 202-0 Yes [id number] Use as Univers se 8-04 directed ity of Transmitter 00:00: [place] (DEXCOM G6 00 Medical TRANSMITTER Branch ) Yolanda Blood-Gluco 202-0 2022- No [id number] Use as Univers se Sensor 10-14 directed ity o f (DEXCOM G6 00:00: 00:00 [place] SENSOR) 00 :00 Medical Yolanda Branch Blood-Gluco 2020-0 2022- No [id number] Use as Univers se Sensor 10-14 directed ity o f (DEXCOM G6 00:00: 00:00 [place] SENSOR) 00 :00 Medical Y[place]anda Branch nitroglycer 2020-[id number] 1 Univers in 0.4 mg 1-01 tablet ity of sublingual 00:00: under the [place] tablet 00 tongue Medical every 5 Branch (five) minutes as needed for Chest pain. clopidogreL 2020-0 Yes [id number] 75mg Take 1 Univers (PLAVIX) 75 1-01 tablet by ity of mg tablet 00:00: mouth [place] 00 daily. Medical Branch aspirin 81 2020-0 Yes [id number] 81mg Take 1 Univers mg chewable 1-01 tablet by ity of tablet 00:00: mouth 00 daily. Medical Branch nitroglycer 2020-[id number] 1 Univers in 0.4 mg 1-01 tablet ity of sublingual 00:00: under the [place] tablet 00 tongue Medical every 5 Branch (five) minutes as needed for Chest pain. clopidogreL 2020-0 Yes [id number] 75mg Take 1 Univers (PLAVIX) 75 1-01 tablet by ity of mg tablet 00:00: mouth [place] 00 daily. Medical Branch aspirin 81 2020-0 Yes [id number] 81mg Take 1 Univers mg chewable 1-01 tablet by ity of tablet 00:00: mouth [place] 00 daily. Medical Branch nitroglycer 2020-[id number] 1 Univers in 0.4 mg 1-01 tablet ity of sublingual 00:00: under the [place] tablet 00 tongue Medical every 5 Branch (five) minutes as needed for Chest pain. clopidogreL 2020-0 Yes [id number] 75mg Take 1 Univers (PLAVIX) 75 1-01 tablet by ity of mg tablet 00:00: mouth [place] 00 daily. Medical Branch aspirin 81 2020-0 Yes [id number] 81mg Take 1 Univers mg chewable 1-01 tablet by ity of tablet 00:00: mouth [place] 00 daily. Medical Branch nitroglycer 2020-[id number] 1 Univers in 0.4 mg 1-01 tablet ity of sublingual 00:00: under the [place] tablet 00 tongue Medical every 5 Branch (five) minutes as needed for Chest pain. clopidogreL 2020-0 Yes [id number] 75mg Take 1 Univers (PLAVIX) 75 1-01 tablet by ity of mg tablet 00:00: mouth [place] 00 daily. Medical Branch aspirin 81 2020-0 Yes [id number] 81mg Take 1 Univers mg chewable 1-01 tablet by ity of tablet 00:00: mouth [place] 00 daily. Medical Branch nitroglycer 2020-[id number] 1 Univers in 0.4 mg 1-01 tablet ity of sublingual 00:00: under the [place] tablet 00 tongue Medical every 5 Branch (five) minutes as needed for Chest pain. clopidogreL 2020-0 Yes [id number] 75mg Take 1 Univers (PLAVIX) 75 1-01 tablet by ity of mg tablet 00:00: mouth [place] 00 daily. Medical Branch aspirin 81 2020-0 Yes [id number] 81mg Take 1 Univers mg chewable 1-01 tablet by ity of tablet 00:00: mouth [place] 00 daily. Medical Branch nitroglycer 2020-[id number] 1 Univers in 0.4 mg 1-01 tablet ity of sublingual 00:00: under the [place] tablet 00 tongue Medical every 5 Branch (five) minutes as needed for Chest pain. clopidogreL 2020-0 Yes [id number] 75mg Take 1 Univers (PLAVIX) 75 1-01 tablet by ity of mg tablet 00:00: mouth [place] 00 daily. Medical Branch aspirin 81 2020-0 Yes [id number] 81mg Take 1 Univers mg chewable 1-01 tablet by ity of tablet 00:00: mouth [place] 00 daily. Medical Branch nitroglycer [id number] 1 Univers in 0.4 mg 1-01 tablet ity of sublingual 00:00: under the [place] tablet 00 tongue Medical every 5 Branch (five) minutes as needed for Chest pain. clopidogreL 0 Yes [id number] 75mg Take 1 Univers (PLAVIX) 75 1-01 tablet by ity of mg tablet 00:00: mouth [place] 00 daily. Medical Branch aspirin 81 2020-0 Yes [id number] 81mg Take 1 Univers mg chewable 1-01 tablet by ity of tablet 00:00: mouth [place] 00 daily. Medical Branch nitroglycer 2020-[id number] 1 Univers in 0.4 mg 1-01 tablet ity of sublingual 00:00: under the [place] tablet 00 tongue Medical every 5 Branch (five) minutes as needed for Chest pain. clopidogreL 2020-0 Yes [id number] 75mg Take 1 Univers (PLAVIX) 75 1-01 tablet by ity of mg tablet 00:00: mouth [place] 00 daily. Medical Branch aspirin 81 2020-0 Yes [id number] 81mg Take 1 Univers mg chewable 1-01 tablet by ity of tablet 00:00: mouth [place] 00 daily. Medical Branch nitroglycer 2020-[id number] 1 Univers in 0.4 mg 1-01 tablet ity of sublingual 00:00: under the [place] tablet 00 tongue Medical every 5 Branch (five) minutes as needed for Chest pain. clopidogreL 2020-0 Yes [id number] 75mg Take 1 Univers (PLAVIX) 75 1-01 tablet by ity of mg tablet 00:00: mouth [place] 00 daily. Medical Branch aspirin 81 2020-0 Yes [id number] 81mg Take 1 Univers mg chewable 1-01 tablet by ity of tablet 00:00: mouth [place] 00 daily. Medical Branch nitroglycer 2020-[id number] 1 Univers in 0.4 mg 1-01 tablet ity of sublingual 00:00: under the [place] tablet 00 tongue Medical every 5 Branch (five) minutes as needed for Chest pain. clopidogreL 2020-0 Yes [id number] 75mg Take 1 Univers (PLAVIX) 75 1-01 tablet by ity of mg tablet 00:00: mouth [place] 00 daily. Medical Branch aspirin 81 2020-0 Yes [id number] 81mg Take 1 Univers mg chewable 1-01 tablet by ity of tablet 00:00: mouth [place] 00 daily. Medical Branch nitroglycer 2020-[id number] 1 Univers in 0.4 mg 1-01 tablet ity of sublingual 00:00: [place] tablet 00 tongue Medical every 5 Branch (five) minutes as needed for Chest pain. clopidogreL 2020-0 Yes [id number] 75mg Take 1 Univers (PLAVIX) 75 1-01 tablet by ity of mg tablet 00:00: mouth [place] 00 daily. Medical Branch aspirin 81 2020-0 Yes [id number] 81mg Take 1 Univers mg chewable 1-01 tablet by ity of tablet 00:00: mouth [place] 00 daily. Medical Branch nitroglycer 2020-[id number] 1 Univers in 0.4 mg 1-01 tablet ity of sublingual 00:00: [place] tablet 00 tongue Medical every 5 Branch (five) minutes as needed for Chest pain. clopidogreL 2020-0 Yes [id number] 75mg Take 1 Univers (PLAVIX) 75 1-01 tablet by ity of mg tablet 00:00: mouth [place] 00 daily. Medical Branch aspirin 81 2020-0 Yes [id number] 81mg Take 1 Univers mg chewable 1-01 tablet by ity of tablet 00:00: mouth [place] 00 daily. Medical Branch nitroglycer 2020-[id number] 1 Univers in 0.4 mg 1-01 tablet ity of sublingual 00:00: under the [place] tablet 00 tongue Medical every 5 Branch (five) minutes as needed for Chest pain. clopidogreL 2020-0 Yes [id number] 75mg Take 1 Univers (PLAVIX) 75 1-01 tablet by ity of mg tablet 00:00: mouth [place] 00 daily. Medical Branch aspirin 81 2020-0 Yes [id number] 81mg Take 1 Univers mg chewable 1-01 tablet by ity of tablet 00:00: mouth [place] 00 daily. Medical Branch nitroglycer [id number] 1 Univers in 0.4 mg 1-01 tablet ity of sublingual 00:00: [place] the [place] tablet 00 tongue Medical every 5 Branch (five) minutes as needed for Chest pain. clopidogreL 2020-0 Yes [id number] 75mg Take 1 Univers (PLAVIX) 75 1-01 tablet by ity of mg tablet 00:00: mouth [place] 00 daily. Medical Branch aspirin 81 0 Yes [id number] 81mg Take 1 Univers mg chewable 1-01 tablet by ity of tablet 00:00: mouth [place] 00 daily. Medical Branch tofacitinib 2018-03 Yes [id number] 11mg Take 11 mg Univers (XELJANZ 2-18 by mouth ity of XR) 11 mg 00:00: daily. [place] [address] Medical Branch tofacitinib 2018-03 Yes [id number] 11mg Take 11 mg Univers (XELJANZ 2-18 by mouth ity of XR) 11 mg 00:00: daily. [place] [address] Medical Branch tofacitinib 2018-03 Yes [id number] 11mg Take 11 mg Univers (XELJANZ 2-18 by mouth ity of XR) 11 mg 00:00: daily. [place] [address] [facility] Branch tofacitinib 2018-03 Yes [id number] 11mg Take 11 mg Univers (XELJANZ 2-18 by mouth ity of XR) 11 mg 00:00: daily. [place] [address] [facility] Branch tofacitinib 2018-03 Yes [id number] 11mg Take 11 mg Univers (XELJANZ 2-18 by mouth ity of XR) 11 mg 00:00: daily. [address] tofacitinib 2018-03 Yes [id number] 11mg Take 11 mg Univers (XELJANZ 2-18 by mouth ity of XR) 11 mg 00:00: daily. [address] tofacitinib 2018-03 Yes [id number] 11mg Take 11 mg Univers (XELJANZ 2-18 by mouth ity of XR) 11 mg 00:00: daily. [address] tofacitinib 2018-03 Yes [id number] 11mg Take 11 mg Univers (XELJANZ 2-18 by mouth ity of XR) 11 mg 00:00: daily. [address] tofacitinib 2018-03 Yes [id number] 11mg Take 11 mg Univers (XELJANZ 2-18 by mouth ity of XR) 11 mg 00:00: daily. [address] tofacitinib 2018-03 Yes [id number] 11mg Take 11 mg Univers (XELJANZ 2-18 by mouth ity of XR) 11 mg 00:00: daily. [address] tofacitinib 2018-03 Yes [id number] 11mg Take 11 mg Univers (XELJANZ 2-18 by mouth ity of XR) 11 mg 00:00: daily. [address] tofacitinib 2018-03 Yes [id number] 11mg Take 11 mg Univers (XELJANZ 2-18 by mouth ity of XR) 11 mg 00:00: daily. [address] tofacitinib 2018-03 Yes [id number] 11mg Take 11 mg Univers (XELJANZ 2-18 by mouth ity of XR) 11 mg 00:00: daily. [address] tofacitinib 2018-03 Yes [id number] 11mg Take 11 mg Univers (XELJANZ 2-18 by mouth ity of XR) 11 mg 00:00: daily. [address] insulin 2018-0 Yes 12U QD Inject 12 [facility] (LANTUS) 00:04: subcutaneo Med ical 100 unit/mL 52 [facility] Center injection nightly Use as directed . insulin Yes Inject [facility] aspart 8-08 subcutaneo [facility] U-100 00:04: usly 3 Medical (NOVOLOG) 52 (three) Center 100 unit/mL times injection daily before meals. insulin 2019-0 Yes 12U QD Inject 12 [facility] glargine [facility] (LANTUS) 00:04: subcutaneo Med ical 100 unit/mL 52 usly Center injection nightly Use as directed . insulin 2019-[address] [facility] aspart 8-08 subcutaneo [facility]ukes U-100 00:04: usly 3 Medical (NOVOLOG) 52 (three) Center 100 unit/mL times injection daily before meals. insulin 2019-0 Yes 12U QD Inject 12 [facility] glargine [facility] (LANTUS) 00:04: subcutaneo Med ical 100 unit/mL 52 usly Center injection nightly Use as directed . insulin 2018-[address] [facility] aspart 8-08 subcutaneo [facility]ukes U-100 00:04: usly 3 Medical (NOVOLOG) 52 (three) Center 100 unit/mL times injection daily before meals. insulin 2019-0 Yes 12U QD Inject 12 [facility] glargine 8-08 [facility] (LANTUS) 00:04: subcutaneo Med ical 100 unit/mL 52 usly Center injection nightly Use as directed . insulin 2018-[address] [facility] aspart 8-08 subcutaneo [facility]ukes U-100 00:04: usly 3 Medical (NOVOLOG) 52 (three) Center 100 unit/mL times injection daily before meals. Immunizations Ordered Filled Immunization Date Status Comments [facility] e Immunization Name Name Influenza Virus 2021-01-08 Completed Universit y of Vaccine Quad IM, 00:00:00 [facility] dical Preserv and ABX Branch Free 6 MO-64 YRS Influenza Virus 2021-01-08 Completed Universit y of Vaccine Quad IM, 00:00:00 [place] [facility] dical Preserv and ABX Branch Free 6 MO-64 YRS Influenza Virus 2021-01-08 Completed Universit y of Vaccine Quad IM, 00:00:00 [place] Me dical Preserv and ABX Branch Free 6 MO-64 YRS Influenza Virus 2021-01-08 Completed Universit y of Vaccine Quad IM, 00:00:00 [facility] dical Preserv and ABX Branch Free 6 MO-64 YRS Influenza Virus 2021-01-08 Completed Universit y of Vaccine Quad IM, 00:00:00 [place] Me dical Preserv and ABX Branch Free 6 MO-64 YRS Influenza Virus 2021-01-08 Completed Universit y of Vaccine Quad IM, 00:00:00 [place] Me dical Preserv and ABX Branch Free 6 MO-64 YRS Influenza Virus 2021-01-08 Completed Universit y of Vaccine Quad IM, 00:00:00 [place] Me dical Preserv and ABX Branch Free 6 MO-64 YRS Influenza Virus 2021-01-08 Completed Universit y of Vaccine Quad IM, 00:00:00 [place] Me dical Preserv and ABX Branch Free 6 MO-64 YRS Influenza Virus 2021-01-08 Completed Universit y of Vaccine Quad IM, 00:00:00 [place] Me dical Preserv and ABX Branch Free 6 MO-64 YRS Influenza Virus 2021-01-08 Completed Universit y of Vaccine Quad IM, 00:00:00 [place] Me dical Preserv and ABX Branch Free 6 MO-64 YRS Influenza Virus 2021-01-08 Completed Universit y of Vaccine Quad IM, 00:00:00 [place] Me dical Preserv and ABX Branch Free 6 MO-64 YRS Influenza Virus 2021-01-08 Completed Universit y of Vaccine Quad IM, 00:00:00 [place] Me dical Preserv and ABX Branch Free 6 MO-64 YRS Influenza Virus 2021-01-08 Completed Universit y of Vaccine Quad IM, 00:00:00 [place] Me dical Preserv and ABX Branch Free 6 MO-64 YRS Influenza Virus 2021-01-08 Completed Universit y of Vaccine Quad IM, 00:00:00 [place] Me dical Preserv and ABX Branch Free 6 MO-64 YRS Influenza Virus 2019-11-12 Completed Universit y of Vaccine 00:00:00 [facility] Influenza Virus 2019-11-12 Completed Universit y of Vaccine 00:00:00 [facility] Influenza Virus 2019-11-12 Completed Universit y of Vaccine 00:00:00 [facility] Influenza Virus 2019-11-12 Completed Universit y of Vaccine 00:00:00 [facility] Influenza Virus 2019-11-12 Completed Universit y of Vaccine 00:00:00 [facility] Influenza Virus 2019-11-12 Completed Universit y of Vaccine 00:00:00 [facility] Influenza Virus 2019-11-12 Completed Universit y of Vaccine 00:00:00 [facility] Influenza Virus 2019-11-12 Completed Universit y of Vaccine 00:00:00 [facility] Influenza Virus 2019-11-12 Completed Universit y of Vaccine 00:00:00 [facility] Influenza Virus 2019-11-12 Completed Universit y of Vaccine 00:00:00 [facility] Influenza Virus 2019-11-12 Completed Universit y of Vaccine 00:00:00 [facility] Influenza Virus 2019-11-12 Completed Universit y of Vaccine 00:00:00 [facility] Influenza Virus 2019-11-12 Completed Universit y of Vaccine 00:00:00 [facility] Influenza Virus 2019-11-12 Completed Universit y of Vaccine 00:00:00 [facility] Zoster Vaccine 2019-03-25 Completed University of Recombinant 00:00:00 [facility] Zoster Vaccine 2019-03-25 Completed University of Recombinant 00:00:00 [facility] Zoster Vaccine 2019-03-25 Completed University of Recombinant 00:00:00 [facility] Zoster Vaccine 2019-03-25 Completed University of Recombinant 00:00:00 [facility] Zoster Vaccine 2019-03-25 Completed University of Recombinant 00:00:00 [facility] Zoster Vaccine 2019-03-25 Completed University of Recombinant 00:00:00 [facility] Zoster Vaccine 2019-03-25 Completed University of Recombinant 00:00:00 [facility] Zoster Vaccine 2019-03-25 Completed University of Recombinant 00:00:00 [facility] Zoster Vaccine 2019-03-25 Completed University of Recombinant 00:00:00 [facility] Zoster Vaccine 2019-03-25 Completed University of Recombinant 00:00:00 [facility] Zoster Vaccine 2019-03-25 Completed University of Recombinant 00:00:00 [facility] Zoster Vaccine 2019-03-25 Completed University of Recombinant 00:00:00 [facility] Zoster Vaccine 2019-03-25 Completed University of Recombinant 00:00:00 [facility] Zoster Vaccine 2019-03-25 Completed University of Recombinant 00:00:00 [facility] Zoster Vaccine 2019-01-18 Completed University of Recombinant 00:00:00 [facility] Zoster Vaccine 2019-01-18 Completed University of Recombinant 00:00:00 [facility] Zoster Vaccine 2019-01-18 Completed University of Recombinant 00:00:00 [facility] Zoster Vaccine 2019-01-18 Completed University of Recombinant 00:00:00 [facility] Zoster Vaccine 2019-01-18 Completed University of Recombinant 00:00:00 [facility] Zoster Vaccine 2019-01-18 Completed University of Recombinant 00:00:00 [facility] Zoster Vaccine 2019-01-18 Completed University of Recombinant 00:00:00 [facility] Zoster Vaccine 2019-01-18 Completed University of Recombinant 00:00:00 [facility] Zoster Vaccine 2019-01-18 Completed University of Recombinant 00:00:00 [facility] Zoster Vaccine 2019-01-18 Completed University of Recombinant 00:00:00 [facility] Zoster Vaccine 2019-01-18 Completed University of Recombinant 00:00:00 [facility] Zoster Vaccine 2019-01-18 Completed University of Recombinant 00:00:00 [facility] Zoster Vaccine 2019-01-18 Completed University of Recombinant 00:00:00 [facility] Zoster Vaccine 2019-01-18 Completed University of Recombinant 00:00:00 [facility] Vital Signs Vital Name Observation Time Observation Value Comments Source Systolic blood 2022-06-13 16:50:00 140 mm[Hg] Univer [facility] [place] Diastolic blood 2022-06-13 16:50:00 78 mm[Hg] Unive [facility] Heart rate 2022-06-13 16:50:00 57 /min [facility] Body weight 2022-06-13 16:50:00 103.964 kg [facility] BMI 2022-06-13 16:50:00 44.76 kg/m2 [facility] Oxygen saturation 2022-06-13 16:50:00 99 /min [facility] in Arterial blood [facility] anch by Pulse oximetry Systolic blood 2022-02-21 21:25:00 155 [facility]Hg[facility] [place] Diastolic blood 2022-02-21 21:25:00 78 mm[Hg] Unive [facility] Heart rate 2022-02-21 21:14:00 63 /min [facility] Body weight 2022-02-21 21:14:00 100.699 kg [facility] BMI 2022-02-21 21:14:00 43.36 kg/m2 [facility] Oxygen saturation 2022-02-21 21:14:00 95 /min [facility] in Arterial blood Medical Br anch by Pulse oximetry Procedures Procedure Date / Time Performed Performing Clinician Rubia frederick POCT HEMOGLOBIN A1C 2022-06-13 17:03:00 Abbey Negrete [facility] ASSIGNMENT OF BENEFITS 2022-06-13 16:29:52 Doctor Unassigned, No [facility] POCT HEMOGLOBIN A1C 2022-02-21 21:26:00 Abbey Negrete [facility] [id number] 2021-06-24 00:00:00 CHAAB.01 [facility] [id number] 2021-06-24 00:00:00 CHAAB.01 [facility] [id number] 2021-06-24 00:00:00 CHAAB.01 [facility] [id number] 2021-06-24 00:00:00 CHAAB.01 [facility] [id number] 2021-06-24 00:00:00 CHAAB.01 [facility] [id number] 2021-06-24 00:00:00 CHAAB.01 [facility] [id number] 2021-06-23 00:00:00 RASSA [facility] [id number] 2021-06-23 00:00:00 RASSA [facility] [id number] 2021-06-23 00:00:00 RASSA [facility] [id number] 2021-06-23 00:00:00 RASSA [facility] [id number] 2021-06-23 00:00:00 RASSA [facility] [id number] 2021-06-23 00:00:00 RASSA [facility] Plan of Care Planned Activity Planned Date Details Comments Source Future Scheduled 2021-11-[address] [facility] Test 00:00:00 (Season Ended) [code = [facility] INFLUENZA VACCINE (Season Ended)] Future Scheduled [...] [facility] 00:[facility]:00 measurement (procedure) [facility] [code = 71628933] Future Scheduled 2019-01-[address] [facility] 00:00:00 measurement (procedure) [facility] [code = 25948749] Future Scheduled 2012 SHINGLES VACCINES ([address] [facility] Test 00:00:00 2) [code = SHINGLES [facility] VACCINES (1 of 2)] Future Scheduled 2012 SHINGLES VACCINES ([address] [facility] Test 00:00:00 2) [code = SHINGLES [facility] VACCINES (1 of 2)] Future Scheduled 2007 Lipid panel (procedure) [facility] Test 00:00:00 [code = 13978779] Medical Ce nter Future Scheduled 2007 Lipid panel (procedure) [facility] Test 00:00:00 [code = 80079944] Medical Ce nter Future Scheduled 1983 Screening for malignant [facility] Test 00:00:00 neoplasm of cervix Medical C enter (procedure) [code = 599806776] Future Scheduled 1983 Screening for malignant [facility] Test 00:00:00 neoplasm of cervix Medical C enter (procedure) [code = 375976930] Future Scheduled 1981 DTAP/TDAP/TD VACCINES CH I [...] 00:00:00 examination Medical Center (regime/therapy) [code = 323437257] Future Scheduled 1972 Urine screening for [facility] Test 00:00:00 protein (procedure) Medical Center [code = 205263855] Future Scheduled 1972 DIABETIC EYE EXAM [code [facility] Test 00:00:00 = DIABETIC EYE EXAM] Medical Center Future Scheduled [address] [facility] Test 00:00:00 examination Medical Center (regime/therapy) [code = 210580762] Future Scheduled 1972 Urine screening for [facility] Test 00:00:00 protein (procedure) Medical Center [code = 844523456] Future Scheduled [address] [...] breast Medical C enter (procedure) [code = 369208804] Future Scheduled 1962 Screening for malignant [facility] Test 00:00:00 neoplasm of colon Medical Ce nter (procedure) [code = 847288275] Future Scheduled 1962 Screening for malignant [facility] Test 00:00:00 neoplasm of breast Medical C enter (procedure) [code = 179464067] Future Scheduled 1962 CT Colonography (combo) [facility] Test 00:00:00 [code = CT Colonography [facility] (combo)] Future Scheduled 1962 Screening for malignant [facility] Test 00:00:00 neoplasm of colon Medical Ce nter (procedure) [code = 609867804] Future Scheduled 1962 Screening for malignant [facility] Test 00:00:00 neoplasm of colon Medical Ce nter (procedure) [code = 232401252] Future Scheduled 1962 Screening for malignant [facility] Test 00:00:00 neoplasm of colon Medical Ce nter (procedure) [code = 036730518] Future Scheduled 1962 Screening for malignant [facility] Test 00:00:00 neoplasm of colon Medical Ce nter (procedure) [code = 581629469] Future Scheduled 1962 Sigmoidoscopy [code = [facility] 00:[facility]00 Sigmoidoscopy] Medical Cente r Encounters Start End Encounter Admission Attending Care Care Encounter Source Date/Time Date/Time Type Type Clinicians Facility Department ID 2021-01-12 Emergency [facility] [id number] Univers 01:13:37 [facility] [place] [facility] 2021-01-09 Emergency [facility] [id number] Univers 14:10:03 [facility] [place] [facility] 2022-10-17 2022-10-17 Outpatient R ABBEY NEGRETE [facility] [id number] Univers 12:00:00 12:00:00 ABBEY NEGRETE [facility] [place] [facility] 2022-08-19 2022-08-19 Outpatient R FELISA [facility] [id number] Univers 14:30:00 14:30:00 ROCIO [facility] [place] [facility] 2022-06-13 2022-06-13 Outpatient R ABBEY NEGRETE [facility] [id number] Univers 12:00:00 12:57:07 ABBEY NEGRETE [facility] [place] [facility] 2022-06-13 2022-06-13 Office Abbey Negrete [facility] 1.2.840.114 [id number] Univers 12:00:00 12:57:07 Visit HEALTH 350.1.13.10 it y of [place] 4.2.7.2.686 [place]key as HECTOR?BLEA [id number] [address] MEDICAL OFFICE [facility] 2022-06-13 2022-06-13 Orders Doctor ASHLEY [id number] [id number] Univers 00:00:00 00:00:00 Only Unassigned, MCKENNA 350.1.13.10 ity of [place] [facility] 4.2.7.2.686 [place] as [id number] [address] 2022-05-12 2022-05-12 Outpatient R CORDELL MANLEY [facility] [id number] Univers 13:30:00 13:30:00 ity [facility] 2022-04-22 2022-04-22 Telephone Caden [facility] 1..[id number] [id number] Univers 00:00:00 00:00:00 PRIMARY 350.1.13.10 [place] [facility] [id number] [address] 2022-04-05 2022-04-05 Telephone Caden [facility] [id number] Univers 00:00:00 00:00:00 HEALTH 350.1.13.10 it y of [place] 4.2.7.2.686 [place] as HECTOR?BLEA [id number] [address] 2022-03-03 2022-03-03 Refill Caden [facility] 1.2.840.114 [id number] Univers 00:00:00 00:00:00 PRIMARY 350.1.13.10 [place] [id number] [address] 2022-03-02 2022-03-02 Outpatient R FELISA [facility] [id number] Univers 11:00:00 11:00:00 ROCIO ity [facility] 2022-03-01 2022-03-01 Refill Caden [facility] 1..840.114 [id number] Univers 00:00:00 00:00:00 HEALTH 350.1.13.10 it y of [place] 4.2.7.2.686 Vickey as HECTOR?BLEA [id number] [facility] [address] [facility] OFFICE [facility] 2022-02-21 2022-02-21 Emergency Physician Lab, Ang - Db [facility] 1.2.840.1 [id number] Univers 16:15:00 16:24:28 Visit Abbey Negrete [facility] 350.1.13.10 it y of [place] 4.2.7.2.686 [place]key as HECTOR?BLEA [id number] [facility] [address] [facility] OFFICE [facility] 2022-02-21 2022-02-21 Outpatient R CADEN [facility] [id number] Univers 15:30:00 16:10:32 CADEN, POTTER luan [facility] 2022-02-21 2022-02-21 [facility] 1.2.840.114 [id number] Univers 15:30:00 16:10:32 Visit HEALTH 350.1.13.10 it y of [place] 4.2.7.2.686 Vickey as HECTOR?BLEA [id number] [address] 2022-02-16 2022-02-16 Telephone [facility] [id number] Univers 00:00:00 00:00:00 Teenaiesha ENGLANDY 350.1.13.10 [place] [id number] [address] 2022-01-19 2022-01-19 Outpatient R CATERINA [facility] [id number] Univers 14:15:00 14:15:00 THEO randall [facility] 2021-11-01 2021-11-01 [facility] 1.2.840.114 [id number] Univers 00:00:00 00:00:00 Trey HEALTH 350.1.13.10 it y of [place] 4.2.7.2.686 [place]key as HECTOR?BLEA [id number] [address] OFFICE [facility] 2021-09-24 2021-09-24 Telephone [facility] 1.2.840.114 [id number] Univers 00:00:00 00:00:00 Trey HEALTH 350.1.13.10 it y of [place] 4.2.7.2.686 Vickey as HECTOR?BLEA [id number] [facility] [address] [facility] OFFICE [facility] 2021-07-21 2021-07-23 Inpatient JAMES Pena INTE [id number] [facility] 05:18:00 16:56:00 [facility] 20 [facility] 2021-07-13 2021-07-13 Outpatient Cristo CHAIDEZ [facility] [id number] Univers 10:00[facility]00 [facility] 2021[facility] 2021-07-13 Outpatient Cristo CHAIDEZ [facility] [id number] Univers 10:00:00 [facility]00[facility] 2021-07-06 2021-07-06 Telephone [facility] [id number] Univers 00:00:00 00:00:00 Rocio A HEALTH 350.1.13.10 i ty of [place] 4.2.7.2.686 Vickey as HECTOR?BLEA [id number] [address] OFFICE [facility] 2021-07-05 2021-07-05 Outpatient CORDELL KAUR [facility] [id number] Univers 13:30:00 13:30:00 ity [facility] 2021-07-02 2021-07-02 Telephone [facility] 1.2.840.114 [id number] Univers 00:00:00 00:00:00 Wondiful A HEALTH 350.1.13.10 ity of [place] 4.2.7.2.686 Vickey as HECTOR?BLEA [id number] [address] OFFICE [facility] 2021-07-02 2021-07-02 Orders Doctor RAMIREZ 1.2.840.114 [id number] Univers 00:00:00 00:00:00 Only Unassigned, MCKENNA 350.1.13.10 ity of [place] [facility] 4.2.7.2.686 Vickey as [id number] [facility] [address] Branch 2021-06-23 2021-06-30 Inpatient JAMES GarciaCL INTE.02 [id number] [facility] 14:22:00 12:30:00 Alejandra [address] [facility] 2021-06-29 2021-06-29 Outpatient R KEITH, [facility] [id number] Univers 14:00:00 14:00:00 ELISE [facility] 2021-06-21 2021-06-21 [facility] [id number] Univers 14:30:00 14:30:00 [facility] 2021-06-16 2021-06-16 Refill [facility] 1.2.840.114 [id number] Univers 00:00:00 00:00:00 Trey PADRON 350.1.13.10 i ty of [place] 4.2.7.2.686 [id number] Wa dical NAL [address] [facility] 2021-06-11 2021-06-11 Out[facility] [id number] Univers 09:30:00 09:58:55 SHAHNAZ [facility] 2021-06-11 2021-06-11 Office [facility] 1.2.840.114 [id number] Univers 09:30:00 09:58:55 Visit [facility] 350.1.13.10 i ty of EYE 4.2.7.2.686 [facility] [phone] [facility] [address] 2021-06-11 2021-06-11 Orders Doctor ASHLEY 1.2.840.114 [id number] Univers 00:00:00 00:00:00 Only Unassigned, MCKENNA 350.1.13.10 ity of [place] [facility] 4.2.7.2.686 Vickey as [phone] [facility] [address] 2021-05-24 2021-05-24 Orders Doctor ASHLEY 1.2.840.114 [id number] Univers 00:00:00 00:00:00 Only Unassigned, MCKENNA 350.1.13.10 ity of [place] [facility] 4.2.7.2.686 Vickey as [phone] [address] 2021-05-21 2021-05-21 Outpatient R FELISA [facility] [id number] Univers 11:00:00 10:56:49 ROCIO ity [facility] 2021-05-10 2021-05-10 Inpatient LUIS ALBERTO Mcdonald, JAMESCL OUTD [id number] [facility] 13:09:00 13:09:00 Dany 14 [facility] 2021-05-04 2021-05-04 [facility] [id number] Univers 14:15:00 14:15:00 WONDIFUL ity o f [facility] 2021-04-27 2021-04-27 Telephone [facility] 1.2.840.114 [id number] Univers 00:00:00 00:00:00 Wondiful A HEALTH 350.1.13.10 ity of [place] 4.2.7.2.686 Vickey as HECTOR?BLEA [phone] [address] MEDICAL OFFICE BUILDING 2021-04-26 2021-04-26 Orders Doctor ASHLEY 1.2.840.114 [id number] Univers 00:00:00 00:00:00 Only Unassigned, MCKENNA 350.1.13.10 ity of [place] [facility] 4.2.7.2.686 [place] as [id number] [address] 2021-04-20 2021-04-20 Outpatient Cristo [facility] [id number] Univers 14:30:00 14:30:00 KITTY [facility] 2021-04-20 2021-04-20 Outpatient Cristo [facility] [id number] Univers 14:30:00 14:30:00 [facility] 2021-04-16 2021-04-16 Orders Doctor ASHLEY 1.2.840.114 [id number] Univers 00:00:00 00:00:00 Only Unassigned, MCKENNA 350.1.13.10 ity of [place] [facility] 4.2.7.2.686 [place] as [id number] [address] 2021-04-14 2021-04-14 Outpatient Cristo ANDRADE [facility] [id number] Univers 10:30:00 10:30:00 SHAHNAZ ity [facility] 2021-03-30 2021-03-30 [facility] 1.2.840.114 [id number] Univers 00:00:00 00:00:00 Rachel PADRON 350.1.13.10 ity [place] [phone] [address] 2021-03-26 2021-03-26 [facility] 1.2.840.114 [id number] Univers 00:00:00 00:00:00 Rachel PADRON 350.1.13.10 it[place] of [place] [phone] [address] 2021-03-23 2021-03-23 Outpatient [facility] [id number] Univers 10:22:10 23:59:00 [facility] 2021-03-23 2021-03-23 [facility] 1.2.840.114 [id number] Univers 10:22:10 23:59:00 Encounter Any S HEALTH 350.1.13.10 ity of [place] 4.2.7.2.686 Vickey as HECTOR?BLEA [id number] [facility] 809 [facility] OFFICE [facility] 2021-03-23 2021-03-23 Office [facility] 1.2.840.114 [id number] Univers 10:30:00 10:45:00 Visit Any S HEALTH 350.1.13.10 it y of [place] 4.2.7.2.686 Vickey as HECTOR?BLEA [phone] [facility] 198 [facility] OFFICE [facility] 2021-03-23 2021-03-23 Outpatient Cristo [facility] [id number] Univers 10:30:00 10:30:00 ANY ity of [facility] 2021-03-23 2021-03-23 Telephone [facility] 1.2.840.114 [id number] Univers 00:00:00 00:00:00 Wondiful A HEALTH 350.1.13.10 ity of [place] 4.2.7.2.686 Vickey as HECTOR?BLEA [phone] [facility] 044 [facility] OFFICE [facility] 2021-03-19 2021-03-19 Referin [facility] 1.2.840.114 [id number] Univers 00:00:00 00:00:00 Kitty HEALTH 350.1.13.10 it y of [place] 4.2.7.2.686 Vickey as HECTOR?BLEA [phone] [facility] 220 [facility] 2021-02-22 2021-02-22 Telephone [facility] 1.2.840.114 [id number] Univers 00:00:00 00:00:00 Wondiful A HEALTH 350.1.13.10 ity of [place] 4.2.7.2.686 Vickey as HECTOR?BLEA [phone] [facility] 044 [facility] 2021-02-17 2021-02-17 Arthur [facility]EL[facility] 1.2.840.114 [id number] Univers 00:00:00 00:00:00 Rachel PADRON 350.1.13.[address] [facility] [facility] 4.2.7.2.[place] [phone] [facility] 059 [facility] 2021-02-13 2021-02-13 Referin [facility]LOVEL[facility] 1.2.840.114 [id number] Univers 00:00:00 00:00:00 Trey PADRON 350.1.13.10 i ty of [place] [phone] [facility] 220 [facility] 2021-02-08 2021-02-08 Arthur Reed [facility] 1.2.840.114 [id number] Univers 00:00:00 00:00:00 Sendil [facility] 350.1.13.[address] [facility] [facility] 4.2.7.2.[place] [phone] Wa dicpolina NAL [address] [facility] 2021-01-25 2021-01-25 Outpatient R ZENAIDA [facility] [id number] Univers 00:00:00 00:00:00 WONDIFUL ity o f [facility] 2021-01-25 2021-01-25 Outpatient R ZENAIDA [facility] [id number] Univers 00:00:00 00:00:00 WONDIFUL ity o f [facility] 2021-01-12 2021-01-12 Outpatient R DM [facility] [id number] Univers 08:15:00 08:15:00 TOUKA [facility] 2021-01-08 2021-01-08 Outpatient R ZENAIDA [facility] [id number] Univers 13:30:00 14:58:08 WONDIFUL ity o [facility] 2021-01-08 2021-01-08 Office [facility] 1.2.840.114 [id number] Univers 12:14:31 14:58:08 Visit Wondiful A HEALTH 350.1.13.10 it[facility] 4.2.7.2.686 Vickey as HECTOR?BLEA [id number] [facility] K[place] [address] MEDICAL OFFICE BUILDING 2021-01-08 2021-01-08 Outpatient R ZENAIDA [facility] [id number] Univers 13:30:00 13:30:00 WONDIFUL ity o f [facility] 2020-12-23 2020-12-23 Outpatient R BRIANNA [facility] [id number] Univers 08:15:00 08:15:00 SENDIL [facility] 2020-12-21 2020-12-21 Emergency Physician Lab, Ang - Quinn [facility] 1.2.840.1 14 [id number] Univers 16:23:32 16:38:32 Visit Trey Yu Health 350.1.13.10 ity of [place] 4.2.7.2.686 Vickey as Hector?Blea [phone] Me dicpolina field [address] Medical Office [facility] 2020-12-21 2020-12-21 Office [facility] 1.2.840.114 [id number] Univers 15:39:24 16:09:[address] [facility] 350.1.13.10 it y of [place] 4.2.7.2.686 Vickey as Hector?Blea [phone] Me dayanara [facility] [address] [facility] 2020-12-21 2020-12-21 Outpatient R GIGI [facility] [id number] Univers 15:30:00 15:30:00 [facility] 2020-12-21 2020-12-21 Outpatient R GIGI [facility] [id number] Univers 12:00:00 12:00:00 [facility] 2020-12-15 2020-12-15 Outpatient [facility] [id number] Univers 09:20:00 09:20:00 [facility] 2020-12-10 2020-12-10 Ancillary Kalpana Zheng [facility] 1.2.840. 114 [id number] Univers 08:47:26 10:21:51 Visit Katia Kamara 350.1.13.10 ity [place] [phone] Wa dayanara [facility] 179 [facility] 2020-12-10 2020-12-10 Outpatient R ANH [facility] [id number] Univers 09:00:00 09:00:00 [facility] 2020-12-08 2020-12-08 Transition Clint Cash 1.2.840.114 [id number] Univers 00:00:00 00:00:00 of Care Della Parnell 350.1.13.10 i ty of [place] [phone] [address] 2020-12-04 2020-12-06 Hospital Leo Dickinson 1.2.840.1 14 [id number] Univers 14:09:00 15:50:00 Encounter Renny Reardon 350.1.13. 10 ity of [place] [facility] 4.2.7.2.686 [place] [id number] [facility] [address] 2020-12-04 2020-12-04 Nurse Nurse, [facility] 1.2.840.114 [id number] Univers 13:21:56 13:41:56 Visit Amada Prater [facility] 350.1.13.10 ity of [place] 4.2.7.2.686 Vickey as Hector?Blea [phone] [address] Medical Office [facility] 2020-12-04 2020-12-04 Outpatient R [facility] [id number] Univers 13:30:00 13:30:00 AMADA ity [facility] 2020-12-03 2020-12-03 [facility] 1.2.840.114 [id number] Univers 09:41:40 10:25:13 Visit Rachel Padron 350.1.13.[address] [facility] [place].2.7.2.[place] [phone] [address] 2020-12-03 2020-12-03 Outpatient [facility] [id number] Univers 10:00:00 10:00:00 SENDIL ity [facility] 2020-10-29 2020-10-29 Outpatient R MARTY [facility] [id number] Univers 16:40:00 16:40:00 AMADA ity [facility] 2020-10-07 2020-10-07 Telephone [facility] 1.2.119.372 [id number] Univers 00:00:00 00:00:00 Rachel Padron 350.1.13.10 ity of [place] [phone] [facility] 059 [facility] 2020-10-07 2020-10-07 Telephone [facility] 1.2.840.285 [id number] Univers 00:00:00 00:00:00 Sendil [facility] [place] 350.1.13.10 ity of [place] [phone] Wa dical nal 059 [facility] 2020-10-02 2020-10-02 Emergency Physician Delroy, Adc Lab Main [facility] 1.2.8 40.114 [id number] Univers 09:03:52 09:18:52 Visit Rachel Reed 350.1.13. 10 ity of [place].2.[place] [phone] Wa dicks nal 353 [facility] 2020-10-02 2020-10-02 Outpatient R BRIANNA [facility] [id number] Univers 08:00:00 08:00:00 SENDIL ity [facility] 2020-09-22 2020-09-22 Outpatient R BRIANNA [facility] [id number] Univers 09:00:00 09:00:00 SENDIL ity [facility] 2020-09-14 2020-09-14 Telephone [facility] 1.2.435.458 [id number] Univers 00:00:00 00:00:00 Rachel Padron 350.1.13.10 ity of [place].2.[place] [phone] [facility] 059 [facility] 2020-09-14 2020-09-14 Telephone Gigi [facility] 1.2.840.114 [id number] Univers 00:00:00 00:00:00 Trey Padron 350.1.13.10 i ty of [place] 4.2.7.2.[place] [phone] Wa dical nal 220 [facility] 2020-09-01 2020-09-01 Nurse Day Horn 1.2.840.114 [id number] Univers 00:00:00 00:00:00 Triage MCKENNA 350.1.13.10 it y of [facility] 4.2.7.2.686 Vickey as [id number] [address] 2020-08-31 2020-08-31 Outpatient R GIGI [facility] [id number] Univers 11:30:00 11:30:00 TREY randall [facility] 2020-08-31 2020-08-31 Office Gigi [facility] 1.2.840.114 [id number] Univers 10:23:44 11:20:14 Visit Trey Marcin 350.1.13.10 i ty of [place] 4.2.7.2.[place] [phone] Wa dical nal 220 [facility] 2020-08-25 2020-08-25 Office [facility] 1.2.840.114 [id number] Univers 10:33:27 11:05:58 Visit Sherrihilary ArceGhassanNikoGhassan Padron 350.1.13.10 ity of [place] 4.2.7.2.[place] [phone] Wa dicks nal 059 [facility] 2020-08-25 2020-08-25 Outpatient R BRIANNA [facility] [id number] Univers 11:00:00 11:00:00 SENDIL itluan [facility] 2020-08-21 2020-08-21 Orders Doctor ASHLEY 1.2.840.114 [id number] Univers 00:00:00 00:00:00 Only Unassigned, MCKENNA 350.1.13.10 [facility] 4.2.7.2.686 Vickey as [id number] [facility] [address] 2020-08-12 2020-08-12 Outpatient R ZEINA JO [facility] [id number] Univers 11:30:00 11:30:00 ZEINA JO ity [facility] 2020-07-28 2020-07-28 Refill Doctor ASHLEY 1.2.840.114 [id number] Univers 00:00:00 00:00:00 Unassigned, MCKENNA 350.1.13.10 [facility] 4.2.7.2.686 [place] as [phone] [facility] [address] 2020-06-25 2020-06-25 Office [facility] 1.2.840.114 [id number] Univers 13:33:34 14:36:23 Visit Sendhilary Padron 350.1.13.10 ity of [place].2.[place] [phone] Wa dical nal 059 [facility] 2020-06-25 2020-06-25 Outpatient R BRIANNA [facility] [id number] Univers 14:00:00 14:00:00 SENDIL ity [facility] 2020-06-08 2020-06-08 Out[facility] [id number] Univers 10:00:00 10:00:00 SENDIL [facility] 2020-06-01 2020-06-01 Refill [facility] 1.2.840.114 [id number] Univers 00:00:00 00:00:00 Sendil Armida Padron 350.1.13.10 ity of [place].2.[place] [phone] [address] 2020-05-23 2020-05-23 Patient [facility] 1.2.840.114 [id number] Univers 00:00:00 00:00:00 Outreach Flako PIERCE 350.1.13.10 i ty of [facility] 4.2.7.2.[place] [id number] [address] 2020-05-18 2020-05-18 Outpatient R DM [facility] [id number] Univers 10:00:00 10:00:00 TOPRAVEENA ity [facility] 2020-05-11 2020-05-11 Office Dm [facility] 1.2.840.114 [id number] Univers 09:25:48 11:23:17 Visit Carmelina [facility] 350.1.13.10 it[place] of [place] 4[place]2.7.2.[place] C[place] [phone] [facility] AND [address] DIABETES [facility]INIC 2020-05-11 2020-05-11 Outpatient R [facility] [id number] Univers 09:30:00 09:30:00 ity of [facility] 2020-05-11 2020-05-11 Orders Doctor ASHLEY 1.2.840.114 [id number] Univers 00:00:00 00:00:00 Only Unassigned, MCKENNA 350.1.13.10 [facility] 4.2.7.2.686 [place] as [phone] [address] 2020-04-27 2020-04-27 Outpatient [facility] [id number] Univers 10:30:00 10:30:00 [facility] 2020-04-22 2020-04-22 Orders Doctor ASHLEY 1.2.840.114 [id number] Univers 00:00:00 00:00:00 Only Unassigned, MCKENNA 350.1.13.10 ity [facility] 4.2.7.2.686 Vickey as [phone] [address] 2020-03-26 2020-03-26 Emergency X BUSTOS, [facility] ERT [id number] Univers 11:51:00 18:13:00 FAITH ity [facility] 2020-03-26 2020-03-26 Emergency Bustos, [facility] 1.2.840.114 [id number] Univers 11:51:00 18:13:00 Faith Padron 350.1.13.10 i ty of [place] 4.2.7.2.[place] [phone] [facility] [address] 2020-03-26 2020-03-26 Emergency Bustos, [facility] 1.2.840.114 [id number] 11:51:00 18:13:00 Faith Padron 350.1.13.10 [place] 4.2.7.2.686 [place] [phone] [facility] 2020-03-26 2020-03-26 Telephone Brianna [facility] 1.2.625.844 [id number] Univers 00:00:00 00:00:00 Sendil Armida Padron 350.1.13.[address] [facility] 4.2.7.2.[place] [phone] [place] 761599 [facility] 2020-03-26 2020-03-26 Telephone [facility] 1.2.911.896 [id number] 00:00:00 00:00:00 Rachel Padron 350.1.13.10 [place] 4.2.7.2.686 Professio [phone] nal [address] [place] [address] 2020-03-19 2020-03-19 Outpatient R MIRZA ASHLEY [facility] [id number] Univers 10:30:00 10:30:00 ity [facility] 2020-03-16 2020-03-16 Office [facility] 1.2.840.114 [id number] Univers 08:45:41 09:51:05 Visit Rachel Padron 350.1.13.10 ity of [place] 4.2.7.2.[place] [phone] Wa dical [address] 2020-03-16 2020-03-16 [facility] 1.2.840.114 [id number] 08:45:41 09:51:05 Visit Rachel Padron 350.1.13.10 [place] 4.2.7.2.686 Professio [phone] nal [address] [place] [address] 2020-03-16 2020-03-16 Outpatient R BRIANNA [facility] [id number] Univers 09:00:00 09:00:00 [facility] 2020-03-16 2020-03-16 Transition Clint Cash 1.2.840.114 [id number] Univers 00:00:00 00:00:00 of Care Della Parnell 350.1.13.10 i ty of [place] 4[place]2.7.2.[place] [id number] [facility] [address] 2020-03-16 2020-03-16 Orders Doctor ASHLEY 1.2.840.114 [id number] Univers 00:00:00 00:00:00 Only Unassigned, MCKENNA 350.1.13.10 ity of [place] [facility] 4.2.7.2.686 Vickey as [phone] [facility] [address] 2020-03-16 2020-03-16 Orders Doctor ASHLEY 1.2.840.114 [id number] 00:00:00 00:00:00 Only Unassigned, MCKENNA 350.1.13.10 [place] [facility] 4.2.7.2.686 [id number] 009 2020-03-12 2020-03-13 [facility] [place] Marah Christ Jailyn 1.2.84 0.114 [id number] Univers 19:23:00 18:35:00 Encounter Juana Zamora Mckenna 350.1.13.10 ity of Hospital 4.2.7.2.686 [place] as [phone] [facility] [address] 2020-03-12 2020-03-12 Hospital Radiology [facility] 1.2.840.114 [id number] Univers 15:49:15 19:22:00 Encounter Marcin 350.1.13.10 ity of [place] 4.2.7.2.686 [facility] [phone] [facility] [address] 2020-03-12 2020-03-12 Outpatient R RADIOLOGY [facility] [id number] Univers 16:00:00 16:00:00 ity of [facility] 2020-03-09 2020-03-09 Office Carmelina Chaidez [facility] 1.2.840.114 [id number] Univers 08:27:34 09:11:09 Visit Joana Dean MULTISPEC 350.1.13. 10 ity of [place] 4.2.7.2.68 6 [facility] [phone] [facility] [place] [address] [address] [facility] 2020-03-09 2020-03-09 Outpatient R [facility] [id number] Univers 08:45:00 08:45:00 ity of [facility] 2020-03-09 2020-03-09 Orders Doctor RAMIREZ 1.2.840.114 [id number] Univers 00:00:00 00:00:00 Only Unassigned, MCKENNA 350.1.13.10 ity of [place] [facility] 4.2.7.2.686 Vickey as [phone] [facility] [address] 2020-03-03 2020-03-03 Office Иван [facility] 1.2.840.114 [id number] Univers 09:55:25 11:39:09 Visit Shahnaz Frederick MULTISPEC 350.1.13.10 ity of [place].2.[place] [phone] [address] [facility] 2020-03-03 2020-03-03 Outpatient R [facility] [id number] Univers 10:00:00 10:00:00 SHAHNAZ [facility] 2020-01-16 2020-01-16 Outpatient [facility] [id number] Univers 14:30:00 14:30:00 ANY luan [facility] 2019-12-25 2019-12-25 Outpatient R [facility] [id number] Univers 09:00:00 09:00:00 SHAHNAZ [facility] 2019-11-25 2019-11-25 Outpatient R [facility] [id number] Univers 11:00:00 11:00:00 KEVEN [facility] 2019-10-24 2019-10-24 Outpatient R И[facility] [id number] Univers 09:45:00 09:45:00 [facility] 2019-09-23 2019-09-23 Refill [facility] 1.2.840.114 [id number] Univers 00:00:00 00:00:00 Gee Arzola MULTISPEC 350.1.13.10 ity of [place] 4.2.7.2.686 [facility] [place]DE[place] [phone] [address] [facility] 2019-08-20 2019-08-20 Outpatient [facility] [id number] Univers 09:40:00 09:40:00 GEE [facility] 2019-08-15 2019-08-15 Telephone [facility] 1.2.840.114 [id number] Univers 00:00:00 00:00:00 eGe Arzola PRIMARY 350.1.13.10 ity of [place].2.[place] [phone] Wa dic[address] 2019-05-21 2019-05-21 Emergency Physician Pcp-Lab [facility] 1.2.840.114 [id number] Univers 09:36:08 10:22:44 Visit Gee Gasca PRIMARY 350.1.13.10 ity of [place].2.[place] [phone] Wa dical [address] 2019-05-21 2019-05-21 Office Campos [facility] 1.2.840.114 [id number] Univers 09:05:30 09:34:34 Visit Gee Arzola PRIMARY 350.1.13.10 ity of [place].2.[place] [phone] Wa dical [address] 2019-05-21 2019-05-21 Outpatient R CAMPOS [facility] [id number] Univers 09:20:00 09:20:00 GEE ity of [facility] 2019-05-13 2019-05-13 Refill [facility] 1.2.840.114 [id number] Univers 00:00:00 00:00:00 Gee Arzola PRIMARY 350.1.13.10 ity of [place].2.[place] [phone] Wa dical [address] 2018-09-10 2018-09-10 Patient Doctor ASHLEY 1.2.840.114 [id number] Univers 00:00:00 00:00:00 Secure Msg Unassigned, MCKENNA 350.1.13.10 ity of [place] [facility] 4.2.7.2.686 Vickey as [id number] [facility] [address] Orders Doctor ASHLEY 1.2.840.114 [id number] Univers 00:00:00 00:00:00 Only Unassigned, MCKENNA 350.1.13.10 ity of [place] [facility] 4.2.7.2.686 Vickey as [phone] [facility] [address] Results Test Description Test Time Test Comments Results Result Comments Source POCT HEMOGLOBIN A1C TEST 2022-06-13 17:03:00 Test Item Value Reference Range Interpretation Comme nts POCT HBA1C (test code = 4548-4) 7.4 % 4-6 A Lab Interpretation (test code = 41361-7) Abnormal [facility] HEMOGLOBIN A1C [id number] 17:03:00 Test Item Value Reference Range Interpretation Comments POCT HBA1C (test code = 4548-4) 7.4 % 4-6 A Lab Interpretation (test code = Abnormal 82684-7) [facility] HEMOGLOBIN A1C [id number] 21:26:00 Test Item Value Reference Range Interpretation Comments POCT HBA1C (test code = 4548-4) 11.4 % 4-6 A Lab Interpretation (test code = Abnormal 40617-4) [facility] HEMOGLOBIN A1C [id number] 21:26:00 Test Item Value Reference Range Interpretation Comments POCT HBA1C (test code = 4548-4) 11.4 % 4-6 A Lab Interpretation (test code = Abnormal 37151-8) [id number]00 Test Item Value Reference Range Interpretation Comments GLUCOSE BEDSIDE (test 238 MG/DL 70-110 H Perfor med by certified code = GLUBED) composing machine operator/tender at [facility] GLUCOSE [id number] 11:42:00 Test Item Value Reference Range Interpretation Comments GLUCOSE BEDSIDE (test 240 MG/DL 70-110 H Perfor med by certified code = GLUBED) composing machine operator/tender at [facility] BASIC METABOLIC [id number] 11:01:00 Test Item Value Reference Range Interpretation [...] code = 7.9 mg/dL 8.0-10.5 L CA) [id number] 11:01:00 Test Item Value Reference Range Interpretation Comments PHOSPHOROUS (test code = PHOS) 2.4 MG/DL 2.5-4.9 L [id number] 11:01:00 Test Item Value Reference Range Interpretation Comments MAGNESIUM (test code = MAG) 1.89 mg/dL 1.80-2.40 CALCIUM [id number] 11:01:00 Test Item Value Reference Range Interpretation Comments CALCIUM IONIZED (test code = RYLEE) 1.15 MMOL/L 1.12-1.32 N GLUCOSE [id number] 08:02:00 Test Item Value Reference Range Interpretation Comments GLUCOSE BEDSIDE (test 183 MG/DL 70-110 H Perfor med by certified code = GLUBED) composing machine operator/tender at [facility] CBC W/AUTO [id number] 05:11:00 Test Item Value Reference Range Interpretation [...] REQUIRED (test code NO = MDIFF) GLUCOSE [id number] 20:13:00 Test Item Value Reference Range Interpretation Comments GLUCOSE BEDSIDE (test 251 MG/DL 70-110 H Perfor med by certified code = GLUBED) composing machine operator/tender at [facility] CBC W/AUTO [id number] 15:36:00 Test Item Value Reference Range Interpretation [...] 0.00 x10 3/uL 0.0-0.1 N NRBC#) GLUCOSE [id number] 11:15:00 Test Item Value Reference Range Interpretation Comments GLUCOSE BEDSIDE (test 148 MG/DL 70-110 H Perfor med by certified code = GLUBED) composing machine operator/tender at [facility] GLUCOSE [id number] 06:11:00 Test Item Value Reference Range Interpretation Comments GLUCOSE BEDSIDE (test 106 MG/DL 70-110 N Perfor med by certified code = GLUBED) composing machine operator/tender at [facility] BASIC METABOLIC [id number] 05:29:00 Test Item Value Reference Range Interpretation [...] code = 8.6 mg/dL 8.0-10.5 N CA) [id number] 05:29:00 Test Item Value Reference Range Interpretation Comments MAGNESIUM (test code = MAG) 2.54 mg/dL 1.80-2.40 H GLUCOSE [id number] 05:19:00 Test Item Value Reference Range Interpretation Comments GLUCOSE BEDSIDE (test 118 MG/DL 70-110 H [facility] med by certified code = GLUBED) composing machine operator/tender at [facility] CBC W/AUTO [id number] 05:11:00 Test Item Value Reference Range Interpretation [...] REQUIRED (test code NO = MDIFF) GLUCOSE [id number] 04:07:00 Test Item Value Reference Range Interpretation Comments GLUCOSE BEDSIDE (test 170 MG/DL 70-110 H Perfor med by certified code = GLUBED) composing machine operator/tender at [facility] GLUCOSE [id number] 03:11:00 Test Item Value Reference Range Interpretation Comments GLUCOSE BEDSIDE (test 219 MG/DL 70-110 H Perfor med by certified code = GLUBED) composing machine operator/tender at [facility] GLUCOSE [id number] 02:08:00 Test Item Value Reference Range Interpretation Comments GLUCOSE BEDSIDE (test 256 MG/DL 70-110 H Perfor med by certified code = GLUBED) composing machine operator/tender at [facility] GLUCOSE [id number] 01:12:00 Test Item Value Reference Range Interpretation Comments GLUCOSE BEDSIDE (test 307 MG/DL 70-110 H Perfor med by certified code = GLUBED) composing machine operator/tender at [facility] GLUCOSE [id number] 00:14:00 Test Item Value Reference Range Interpretation Comments GLUCOSE BEDSIDE (test 333 MG/DL 70-110 H Perfor med by certified code = GLUBED) composing machine operator/tender at [facility] GLUCOSE [id number] 23:07:00 Test Item Value Reference Range Interpretation Comments GLUCOSE BEDSIDE (test 328 MG/DL 70-110 H Perfor med by certified code = GLUBED) composing machine operator/tender at [facility] GLUCOSE [id number] 21:15:00 Test Item Value Reference Range Interpretation Comments GLUCOSE BEDSIDE (test 402 MG/DL 70-110 H Perfor med by certified code = GLUBED) composing machine operator/tender at [facility] GLUCOSE [id number] 20:33:00 Test Item Value Reference Range Interpretation Comments GLUCOSE BEDSIDE (test 417 MG/DL 70-110 H Perfor med by certified code = GLUBED) composing machine operator/tender at [facility] CBC W/AUTO [id number] 19:48:00 Test Item Value Reference Range Interpretation [...] 0.00 x10 3/uL 0.0-0.1 N NRBC#) GLUCOSE [id number] 19:23:00 Test Item Value Reference Range Interpretation Comments GLUCOSE BEDSIDE (test 427 MG/DL 70-110 H Perfor med by certified code = GLUBED) composing machine operator/tender at [facility] BASIC METABOLIC [id number] 18:50:00 Test Item Value Reference Range Interpretation [...] code = 7.8 mg/dL 8.0-10.5 L CA) [id number] 18:50:00 Test Item Value Reference Range Interpretation Comments MAGNESIUM (test code = MAG) 1.79 mg/dL 1.80-2.40 L CBC W/AUTO [id number] 18:21:00 Test Item Value Reference Range Interpretation [...] REQUIRED (test code NO = MDIFF) GLUCOSE [id number] 16:11:00 Test Item Value Reference Range Interpretation Comments GLUCOSE BEDSIDE (test 363 MG/DL 70-110 H Perfor med by certified code = GLUBED) composing machine operator/tender at [facility] [id number] 15:33:00 Test Item Value Reference Range Interpretation Comments ACT-ISTAT (test code 255 SEC 74-137 H Perform ed by certified = ACTI) composing machine operator/tender at [facility] GLUCOSE [id number] 14:11:00 Test Item Value Reference Range Interpretation Comments GLUCOSE BEDSIDE (test 433 MG/DL 70-110 H Perfor med by certified code = GLUBED) composing machine operator/tender at [facility] GLUCOSE [id number] 14:09:00 Test Item Value Reference Range Interpretation Comments GLUCOSE BEDSIDE (test 464 MG/DL 70-110 H Perfor med by certified code = GLUBED) composing machine operator/tender at [facility] - DUP LE ART [id number] 00:00:00 [facility] 1960 Sex: F Name: TAMY MARTINEZ [facility] : 1960 Age/S: 61 / F [address] [place] [address] Unit #: [id number] Loc: [place] [address] Phys: Inga Robertson MD Acct: [id number] Dis Date: Status: ADM IN PHONE #: [phone] Exam Date: 07/21/20211939 FAX #: [phone] Reason: HEMATOMA EXAMS: CPT CODE: [id number] [facility] LE ART UNI/LTD 72902 PROCEDURE INFORMATION: Exam: US Duplex Left Lower [...] enhancement measures 9 x 2.4 x 4.5 cmin the left groin. Septations present within. The left external iliac artery, common femoral artery, and femoral arteries demonstrate triphasic and biphasic waveforms. IMPRESSION: 9 cm soft tissue hematoma in the left groin. at 2020 Reported and signed by: Mukesh Call M.D. CC: Inga Robertson MD; Dany Mcdonald MD Technologist: Saniya Barrett RDMS(AB)(OB) Trnscb Date/Time: 07/21/2021 (2020) [email or web address] Orig Print D/T: S: 07/21/2021 (2020) Probe: PAGE 1 Signed ReportBASIC METABOLIC [id number] 15:47:00 Test Item Value Reference Range Interpretation [...] 9.6 mg/dL 8.0-10.5 N CA) CBC W/AUTO [id number] 15:41:00 Test Item Value Reference Range Interpretation [...] REQUIRED (test code NO = MDIFF) PROTHROMBIN [id number] 15:39:00 Test Item Value Reference Range Interpretation [...] recurrent infar ct). - XR CHEST 2 [id number] 00:00:00 [facility] : 1960 Sex: F FAX: Dany Dean MD [phone] [place]: [address] St: PRE Name: TAMY MARTINEZ [facility] [place] : 1960 Age/S: 61/F [address] [place] [address] Unit #: [id number] Loc: [place] [address] Phys: Dany Mcdonald MD Acct: [id number] Dis Date: Status: PRE SDC PHONE #: [phone] Exam Date: 07/19/2021 1521 FAX #: Reason: PREOP EXAMS: CPT CODE: [id number] XR CHEST 2 V 02042 PROCEDURE INFORMATION: Exam:XR Chest Exam date and [...] By: JazmynKWL Orig Print D/T: S: 07/19/2021 (567) PAGE 1 Signed ReportHEMOGLOBIN [id number] 13:12:00 Test Item Value Reference Range Interpretation Comments HEMOGLOBIN PLASMA 9.2 mg/dL 0.0-4.9 A Values obt ained between (test code = HGBP) 5-15 mg/d L should be interpretedwith caution since such vari clara as sub-optimalveni puncture may increase re sults to this range.Perf ormed At: [facility] [id number] [facility], [place] [id number] ra Jeff RYAN Ph:[phone] ARTERIAL BLOOD [id number] 15:17:00 Test Item Value Reference Range Interpretation Comments ARTERIAL BLOOD GAS PH TEST NOT PERFORMED 7.35-7.45 (test code = PHA) ARTERIAL BLOOD GAS PCO2 TEST NOT PERFORMED 35-45 (test code = PCO2A) mmHg ARTERIAL BLOOD GAS PO2 TEST NOT PERFORMED 80-100 (test code = PO2A) mmHg BICARBONATE TOTAL HCO3 TEST NOT PERFORMED 22.0-26.0 (test code = HCO3) mmol/L GLUCOSE [id number] 11:03:00 Test Item Value Reference Range Interpretation Comments GLUCOSE BEDSIDE (test 193 MG/DL 70-110 H Perfor med by certified code = GLUBED) composing machine operator/tender at [facility] GLUCOSE [id number] 07:27:00 Test Item Value Reference Range Interpretation Comments GLUCOSE BEDSIDE (test 115 MG/DL 70-110 H Perfor med by certified code = GLUBED) composing machine operator/tender at [facility] BASIC METABOLIC [id number] 04:17:00 Test Item Value Reference Range Interpretation [...] 8.4 mg/dL 8.0-10.5 N CA) CBC W/AUTO [id number] 03:33:00 Test Item Value Reference Range Interpretation [...] = MDIFF) COMMENTS: Daily while on HeparinGLUCOSE [id number] 20:07:00 Test Item Value Reference Range Interpretation Comments GLUCOSE BEDSIDE (test 186 MG/DL 70-110 H Perfor med by certified code = GLUBED) composing machine operator/tender at [facility] GLUCOSE [id number] 17:05:00 Test Item Value Reference Range Interpretation Comments GLUCOSE BEDSIDE (test 161 MG/DL 70-110 H Perfor med by certified code = GLUBED) composing machine operator/tender at [facility] GLUCOSE [id number] 11:53:00 Test Item Value Reference Range Interpretation Comments GLUCOSE BEDSIDE (test 173 MG/DL 70-110 H Perfor med by certified code = GLUBED) composing machine operator/tender at [facility] GLUCOSE [id number] 08:14:00 Test Item Value Reference Range Interpretation Comments GLUCOSE BEDSIDE (test 117 MG/DL 70-110 H Perfor med by certified code = GLUBED) composing machine operator/tender at [facility] BASIC METABOLIC [id number] 07:39:00 Test Item Value Reference Range Interpretation [...] code = 8.9 mg/dL 8.0-10.5 N CA) [id number] 07:39:00 Test Item Value Reference Range Interpretation Comments MAGNESIUM (test code = MAG) 1.79 mg/dL 1.80-2.40 L CBC W/AUTO [id number] 07:26:00 Test Item Value Reference Range Interpretation [...] = MDIFF) COMMENTS: Daily while on HeparinGLUCOSE [id number] 20:52:00 Test Item Value Reference Range Interpretation Comments GLUCOSE BEDSIDE (test 152 MG/DL 70-110 H Perfor med by certified code = GLUBED) composing machine operator/tender at [facility] GLUCOSE [id number] 16:59:00 Test Item Value Reference Range Interpretation Comments GLUCOSE BEDSIDE (test 180 MG/DL 70-110 H Perfor med by certified code = GLUBED) composing machine operator/tender at [facility] HEMOGLOBIN [id number] 13:10:00 Test Item Value Reference Range Interpretation Comments HEMOGLOBIN PLASMA 4.0 mg/dL 0.0-4.9 Values obt ained between (test code = HGBP) 5-15 mg/d L should be interpretedwith caution since such vari clara as sub-optimalveni puncture may increase re sults to this range.Perf ormed At: [facility] [id number] ra Jeff RYAN Ph:[phone] HEMOGLOBIN [id number] 13:10:00 Test Item Value Reference Range Interpretation Comments HEMOGLOBIN PLASMA 21.8 mg/dL 0.0-4.9 A Results verified by (test code = HGBP) repeat te stingValues obtained betwee n 5-15 mg/dL should be interpretedwith caution since such vari clara as sub-optimalveni puncture may increase re sults to this range.Perf ormed At: [facility] [address] [id number] ra Jeff RYAN Ph:[phone] COMMENTS: Hemoglobin plasma nowGLUCOSE [id number] 11:52:00 Test Item Value Reference Range Interpretation Comments GLUCOSE BEDSIDE (test 157 MG/DL 70-110 H Perfor med by certified code = GLUBED) composing machine operator/tender at [facility] GLUCOSE [id number] 08:01:00 Test Item Value Reference Range Interpretation Comments GLUCOSE BEDSIDE (test 168 MG/DL 70-110 H [facility] med by certified code = GLUBED) composing machine operator/tender at [facility] BASIC METABOLIC [id number] 05:44:00 Test Item Value Reference Range Interpretation [...] code = 8.6 mg/dL 8.0-10.5 N CA) [id number] 05:44:00 Test Item Value Reference Range Interpretation Comments MAGNESIUM (test code = MAG) 1.81 mg/dL 1.80-2.40 N CBC W/AUTO [id number] 05:33:00 Test Item Value Reference Range Interpretation [...] Perfor med by certified code = GLUBED) composing machine operator/tender at [facility] GLUCOSE [id number] 16:12:00 Test Item Value Reference Range Interpretation Comments GLUCOSE BEDSIDE (test 171 MG/DL 70-110 H Perfor med by certified code = GLUBED) composing machine operator/tender at [facility] HGB [id number] 15:52:00 Test Item Value Reference Range Interpretation Comments HEMOGLOBIN (test code = HGB) 7.9 g/dL 11.0-15.0 L HEMATOCRIT (test code = HCT) 24.3 % 33.0-45.0 L POC ARTERIAL BLOOD [id number] 14:58:00 Test Item Value Reference Range Interpretation Comments POC ARTERIAL BLOOD GAS PH (test 7.524 7.35-7.45 HH code = POCPHA) POC ARTERIAL BLOOD GAS PCO2 34.0 mmHg 35.0-45 L (test code = PUIFVH7X) POC TCO2 ARTERIAL (test code = 29.1 POCTCO2) POC ARTERIAL BLOOD GAS PO2 (test 78.6 mmHg 80-100.0 L code = MWWXT7K) POC HCO3 ARTERIAL (test code = 28.1 MMOL/L 22.0-26.0 HH OZVRPR5Z) POC BASE EXCESS (test code = 5.3 MMOL/L -4.0-4.0 H POCBEA) POC O2 SATURATION (test code = 96.9 % 90-100 N POCO2S) FIO2 (test code = FIO2A) 21 % PaO2/FiO2 (test code = QDA0DEC0) 374.28 mm/Hg ABG SITE (test code = SITEA) L Radial NEREYDA'S TEST (test code = Positive ALLENS) BASIC METABOLIC [id number] 14:58:00 Test Item Value Reference Range Interpretation [...] (test code = POCGLU) 209 MG/DL HEMOGLOBIN [id number] 14:58:00 Test Item Value Reference Range Interpretation Comments HEMOGLOBIN ABG (test code = HGB/ABG) 6.4 G/DL 11.0-15.0 L [id number] 14:58:00 Test Item Value Reference Range Interpretation Comments HEMATOCRIT (test code = HCT/ABG) 19 % 33.0-45.0 L POC LACTIC [id number] 14:58:00 Test Item Value Reference Range Interpretation Comments POC LACTIC ACID (test code = 0.9 mmol/l 0.9-1.7 N POCLAC) GLUCOSE [id number] 11:20:00 Test Item Value Reference Range Interpretation Comments GLUCOSE BEDSIDE (test 182 MG/DL 70-110 H Perfor med by certified code = GLUBED) composing machine operator/tender at [facility] GLUCOSE [id number] 07:22:00 Test Item Value Reference Range Interpretation Comments GLUCOSE BEDSIDE (test 97 MG/DL 70-110 N Perfor med by certified code = GLUBED) composing machine operator/tender at [facility] COMPREHENSIVE METABOLIC [id number] 05:51:00 Test Item Value Reference Range Interpretation [...] 20-125 N TOTAL (test code = ALKP) [id number] 05:51:00 Test Item Value Reference Range Interpretation Comments MAGNESIUM (test code = MAG) 1.72 mg/dL 1.80-2.40 L CBC W/AUTO [id number] 05:42:00 Test Item Value Reference Range Interpretation [...] on Impella support.COMMENTS: Daily while on HeparinGLUCOSE [id number] 20:19:00 Test Item Value Reference Range Interpretation Comments GLUCOSE BEDSIDE (test 173 MG/DL 70-110 H Perfor med by certified code = GLUBED) composing machine operator/tender at [facility] GLUCOSE [id number] 18:00:00 Test Item Value Reference Range Interpretation Comments GLUCOSE BEDSIDE (test 216 MG/DL 70-110 H Perfor med by certified code = GLUBED) composing machine operator/tender at [facility] GLUCOSE [id number] 12:46:00 Test Item Value Reference Range Interpretation Comments GLUCOSE BEDSIDE (test 139 MG/DL 70-110 H Perfor med by certified code = GLUBED) composing machine operator/tender at [facility] GLUCOSE [id number] 08:22:00 Test Item Value Reference Range Interpretation Comments GLUCOSE BEDSIDE (test 126 MG/DL 70-110 H Perfor med by certified code = GLUBED) composing machine operator/tender at [facility] BASIC METABOLIC [id number] 05:13:00 Test Item Value Reference Range Interpretation [...] code = 7.7 mg/dL 8.0-10.5 L CA) [id number] 05:13:00 Test Item Value Reference Range Interpretation Comments MAGNESIUM (test code = MAG) 1.68 mg/dL 1.80-2.40 L B-TYPE NATRIURETIC [id number] 05:12:00 Test Item Value Reference Range Interpretation Comments B-TYPE NATRIURETIC PEPTIDE (test 223.0 PG/ML 0-100 H code = BNP) CBC W/AUTO [id number] 05:08:00 Test Item Value Reference Range Interpretation [...] Daily while on Heparin- DUP UE ART [id number] 00:00:00 [facility] : 1960 Sex: F Name: TAMY MARTINEZ [facility] [place] : 1960 Age/S: 61 / F [address] [place] [address] Blvd Unit #: [id number] Loc: [place] [address] Phys: Loly Agee EDUCATION REPORTER Acct: [id number] Dis Date: Status: ADM IN PHONE #: [phone] Exam Date: 06/26/2021 0951 FAX #: [phone] Reason: S/P IMPELLA REMOVAL/RULE OUT HEMATOMA EXAMS: CPT CODE: [id number] DUP UE ART UNI/LTD 10770 PROCEDURE INFORMATION: Exam: US Duplex Right Lower [...] M.D. CC: Alejandra Zeng MD; Loly Agee EDUCATION REPORTER; Dany Mcdonald MD Technologist: Monalisa Carter RDMS(Reggie)(BR) Trnscb Date/Time: 06/26/2021 (101) [email or web address] Orig Print D/T: S: 06/26/2021 (1013) Probe: PAGE 1 Signed Report- XR CHEST 1 [id number] 00:00:00 [facility] : 1960 Sex: F FAX: Alejandra Fraga MD [phone] [place]: St: ADM FAX: Zoraida Felder [phone] FAX: Dany Dean MD [phone] Name: TAMY MARTINEZ [facility] : 1960 Age/S: 61/F [address] [place] [address] Unit #: [id number] Loc: G.3308 [place] [address] Phys: Zoraida Felder AGACNP Acct: [id number] Dis Date: Status: ADM IN PHONE #: [phone] Exam Date: 06/26/2021 06 FAX #: [phone] Reason: fluid overload EXAMS: CPT CODE: [id number] XR CHEST 1 V 33851 PROCEDURE INFORMATION: Exam: XR Chest Exam date [...] S: 06/26/2021 (0751) PAGE 1 Signed ReportGLUCOSE [id number] 20:45:00 Test Item Value Reference Range Interpretation Comments GLUCOSE BEDSIDE (test 109 MG/DL 70-110 N Perfor med by certified code = GLUBED) composing machine operator/tender at [facility] GLUCOSE [id number] 17:17:00 Test Item Value Reference Range Interpretation Comments GLUCOSE BEDSIDE (test 188 MG/DL 70-110 H Perfor med by certified code = GLUBED) composing machine operator/tender at [facility] HGB [id number] 17:07:00 Test Item Value Reference Range Interpretation Comments HEMOGLOBIN (test code = HGB) 7.3 g/dL 11.0-15.0 L HEMATOCRIT (test code = HCT) 22.9 % 33.0-45.0 L GLUCOSE [id number] 12:04:00 Test Item Value Reference Range Interpretation Comments GLUCOSE BEDSIDE (test 265 MG/DL 70-110 H Perfor med by certified code = GLUBED) composing machine operator/tender at [facility] GLUCOSE [id number] 07:41:00 Test Item Value Reference Range Interpretation Comments GLUCOSE BEDSIDE (test 288 MG/DL 70-110 H Perfor med by certified code = GLUBED) composing machine operator/tender at [facility] [id number] 04:51:00 Test Item Value Reference Range Interpretation Comments MAGNESIUM (test code = MAG) 2.48 mg/dL 1.80-2.40 H CALCIUM [id number] 04:51:00 Test Item Value Reference Range Interpretation Comments CALCIUM IONIZED (test code = RYLEE) 1.01 MMOL/L 1.12-1.32 L CBC W/AUTO [id number] 04:33:00 Test Item Value Reference Range Interpretation [...] be done morning of Heart CathBASIC METABOLIC [id number] 04:10:00 Test Item Value Reference Range Interpretation [...] done morning of Heart CathLACTIC ACID 2ND [id number] 04:09:00 Test Item Value Reference Range Interpretation Comments LACTIC ACID 2ND REPEAT (test code 2.0 mmol/L 0.4-1.9 H = LACT2) ABOUT TO DRAW REPEATBASIC METABOLIC [id number] 01:02:00 Test Item Value Reference Range Interpretation [...] 6.7 mg/dL 8.0-10.5 L CA) LACTIC ACID [id number] 00:57:00 Test Item Value Reference Range Interpretation Comments LACTIC ACID REPEAT (test code = 3.0 mmol/l 0.4-1.9 H LACTR) COMPREHENSIVE METABOLIC [id number] 21:11:00 Test Item Value Reference Range Interpretation [...] 20-125 N TOTAL (test code = ALKP) [id number] 21:11:00 Test Item Value Reference Range Interpretation Comments PHOSPHOROUS (test code = PHOS) 3.5 MG/DL 2.5-4.9 N [id number] 21:11:00 Test Item Value Reference Range Interpretation Comments MAGNESIUM (test code = MAG) 1.99 mg/dL 1.80-2.40 N CALCIUM [id number] 21:11:00 Test Item Value Reference Range Interpretation Comments CALCIUM IONIZED (test code = RYLEE) 0.89 MMOL/L 1.12-1.32 L LACTIC [id number] 21:05:00 Test Item Value Reference Range Interpretation Comments LACTIC ACID (test code = LACT) 2.2 mmol/L 0.4-1.9 H CBC W/AUTO [id number] 21:02:00 Test Item Value Reference Range Interpretation [...] REQUIRED (test NO code = MDIFF) GLUCOSE [id number] 20:14:00 Test Item Value Reference Range Interpretation Comments GLUCOSE BEDSIDE (test 301 MG/DL 70-110 H Perfor med by certified code = GLUBED) composing machine operator/tender at [facility] POC ARTERIAL BLOOD [id number] 16:54:00 Test Item Value Reference Range Interpretation Comments POC ARTERIAL BLOOD GAS PH (test 7.268 7.35-7.45 LL code = POCPHA) POC ARTERIAL BLOOD GAS PCO2 46.0 mmHg 35.0-45 H (test code = TFVSIW0A) POC TCO2 ARTERIAL (test code = 22.4 POCTCO2) POC ARTERIAL BLOOD GAS PO2 (test 247.9 mmHg 80-100.0 HH code = PKYJA2U) POC HCO3 ARTERIAL (test code = 21.0 MMOL/L 22.0-26.0 L GSPAMJ9C) POC BASE EXCESS (test code = -5.9 MMOL/L -4.0-4.0 L POCBEA) POC O2 SATURATION (test code = 99.8 % 90-100 N POCO2S) ABG SITE (test code = SITEA) [place] BASIC METABOLIC [id number] 16:54:00 Test Item Value Reference Range Interpretation [...] (test code = POCGLU) 295 MG/DL HEMOGLOBIN [id number] 16:54:00 Test Item Value Reference Range Interpretation Comments HEMOGLOBIN ABG (test code = HGB/ABG) 7.0 G/DL 11.0-15.0 L [id number] 16:54:00 Test Item Value Reference Range Interpretation Comments HEMATOCRIT (test code = HCT/ABG) 21 % 33.0-45.0 L POC LACTIC [id number] 16:54:00 Test Item Value Reference Range Interpretation Comments POC LACTIC ACID (test code = 6.5 mmol/l 0.9-1.7 HH POCLAC) [id number] 16:49:00 Test Item Value Reference Range Interpretation Comments ACT-ISTAT (test code 136 SEC 74-137 N Perform ed by certified = ACTI) composing machine operator/tender at [facility] THROMBOPLASTIN TIME [id number] 13:10:00 Test Item Value Reference Range Interpretation Comments THROMBOPLASTIN TIME 96.3 Seconds 25.0-39.5 H Therape utic Range: PARTIAL (test code = 50.4 - 88.3 Seconds PTT) Effective 06/26/2018 CBC W/O [id number] 13:01:00 Test Item Value Reference Range Interpretation [...] 9.5 fL 7.0-9.0 H = MPV) GLUCOSE [id number] 11:31:00 Test Item Value Reference Range Interpretation Comments GLUCOSE BEDSIDE (test 165 MG/DL 70-110 H Perfor med by certified code = GLUBED) composing machine operator/tender at [facility] THROMBOPLASTIN TIME [id number] 10:57:00 Test Item Value Reference Range Interpretation Comments THROMBOPLASTIN TIME 93.7 Seconds 25.0-39.5 H Therape utic Range: PARTIAL (test code = 50.4 - 88.3 Seconds PTT) Effective 06/26/2018 CBC W/AUTO [id number] 10:48:00 Test Item Value Reference Range Interpretation [...] REQUIRED (test NO code = MDIFF) GLUCOSE [id number] 08:41:00 Test Item Value Reference Range Interpretation Comments GLUCOSE BEDSIDE (test 201 MG/DL 70-110 H Perfor med by certified code = GLUBED) composing machine operator/tender at [facility] THROMBOPLASTIN TIME [id number] 08:31:00 Test Item Value Reference Range Interpretation Comments THROMBOPLASTIN TIME 115.0 Seconds 25.0-39.5 H Therap eutic PARTIAL (test code = Range: 50.4 - 88.3 PTT) Seconds Effective 06/26/2018 THROMBOPLASTIN TIME [id number] 05:47:00 Test Item Value Reference Range Interpretation Comments THROMBOPLASTIN TIME 129.9 Seconds 25.0-39.5 H Therap eutic PARTIAL (test code = Range: 50.4 - 88.3 PTT) Seconds Effective 06/26/2018 BASIC METABOLIC [id number] 05:47:00 Test Item Value Reference Range Interpretation [...] code = 8.2 mg/dL 8.0-10.5 N CA) [id number] 05:47:00 Test Item Value Reference Range Interpretation Comments MAGNESIUM (test code = MAG) 1.79 mg/dL 1.80-2.40 L CBC W/AUTO [id number] 05:25:00 Test Item Value Reference Range Interpretation [...] Impella support.COMMENTS: Daily while on HeparinTHROMBOPLASTIN TIME [id number] 02:34:00 Test Item Value Reference Range Interpretation Comments THROMBOPLASTIN TIME 45.4 Seconds 25.0-39.5 H Therape utic Range: PARTIAL (test code = 50.4 - 88.3 Seconds PTT) Effective 06/26/2018 THROMBOPLASTIN TIME [id number] 22:54:00 Test Item Value Reference Range Interpretation Comments THROMBOPLASTIN TIME 33.3 Seconds 25.0-39.5 Therape utic Range: PARTIAL (test code = 50.4 - 88.3 Seconds PTT) Effective 06/26/2018 THROMBOPLASTIN TIME [id number] 21:14:00 Test Item Value Reference Range Interpretation Comments THROMBOPLASTIN TIME 65.5 Seconds 25.0-39.5 H Therape utic Range: PARTIAL (test code = 50.4 - 88.3 Seconds PTT) Effective 06/26/2018 GLUCOSE [id number] 20:25:00 Test Item Value Reference Range Interpretation Comments GLUCOSE BEDSIDE (test 316 MG/DL 70-110 H Perfor med by certified code = GLUBED) composing machine operator/tender at [facility] THROMBOPLASTIN TIME [id number] 20:19:00 Test Item Value Reference Range Interpretation Comments THROMBOPLASTIN TIME 104.0 Seconds 25.0-39.5 H Therap eutic PARTIAL (test code = Range: 50.4 - 88.3 PTT) Seconds Effective 06/26/2018 CBC W/AUTO [id number] 20:07:00 Test Item Value Reference Range Interpretation [...] DONE WITHIN THE LAST 24 HOURSTHROMBOPLASTIN TIME [id number] 19:07:00 Test Item Value Reference Range Interpretation Comments THROMBOPLASTIN TIME > 200.0 25.0-39.5 H Therape utic PARTIAL (test code = Seconds Range: 50.4 - 88.3 PTT) Seconds Effective 06/26/2018 COMMENTS: Start 2hrs post procedure check q1hr until 2 results in range, then q4 GLUCOSE [id number] 17:11:00 Test Item Value Reference Range Interpretation Comments GLUCOSE BEDSIDE (test 365 MG/DL 70-110 H Perfor med by certified code = GLUBED) composing machine operator/tender at [facility] THROMBOPLASTIN TIME [id number] 17:04:00 Test Item Value Reference Range Interpretation Comments THROMBOPLASTIN TIME > 200.0 25.0-39.5 H Therape utic PARTIAL (test code = Seconds Range: 50.4 - 88.3 PTT) Seconds Effective 06/26/2018 COMMENTS: Start 2hrs post procedure check q1hr until 2 results in range, then q4 [id number] 15:09:00 Test Item Value Reference Range Interpretation Comments ACT-ISTAT (test code 267 SEC 74-137 H Perform ed by certified = ACTI) composing machine operator/tender at [facility] [id number] 14:22:00 Test Item Value Reference Range Interpretation Comments ACT-ISTAT (test code 255 SEC 74-137 H Perform ed by certified = ACTI) composing machine operator/tender at [facility] [id number] 13:52:00 Test Item Value Reference Range Interpretation Comments ACT-ISTAT (test code 362 SEC 74-137 H Perform ed by certified = ACTI) composing machine operator/tender at [facility] [id number] 13:38:00 Test Item Value Reference Range Interpretation Comments ACT-ISTAT (test code 237 SEC 74-137 H Perform ed by certified = ACTI) composing machine operator/tender at [facility] [id number] 13:04:00 Test Item Value Reference Range Interpretation Comments ACT-ISTAT (test code 273 SEC 74-137 H Perform ed by certified = ACTI) composing machine operator/tender at [facility] [id number] 12:41:00 Test Item Value Reference Range Interpretation Comments ACT-ISTAT (test code 315 SEC 74-137 H Perform ed by certified = ACTI) composing machine operator/tender at [facility] GLUCOSE [id number] 11:42:00 Test Item Value Reference Range Interpretation Comments GLUCOSE BEDSIDE (test 332 MG/DL 70-110 H Perfor med by certified code = GLUBED) composing machine operator/tender at [facility] PROTHROMBIN [id number] 13:57:00 Test Item Value Reference Range Interpretation [...] (to prevent recurrent infar ct). BASIC METABOLIC [id number] 13:47:00 Test Item Value Reference Range Interpretation [...] 8.9 mg/dL 8.0-10.5 N CA) CBC W/AUTO [id number] 13:35:00 Test Item Value Reference Range Interpretation [...] REQUIRED (test code NO = MDIFF) GLUCOSE [id number] 16:18:00 Test Item Value Reference Range Interpretation Comments GLUCOSE BEDSIDE (test 227 MG/DL 70-110 H Perfor med by certified code = GLUBED) composing machine operator/tender at [facility] TROP-I HIGH [id number] 16:11:00 Test Item Value Reference Range Interpretation [...] and URLs mayvar y by method. LIPOPROTEIN [id number] 15:14:00 Test Item Value Reference Range Interpretation Comments LIPOPROTEIN LDL 56.8 mg/dL 0-100 N <100 OPTIMAL 100-129 NEAR (test code = LDL) OPTIMAL/AB OVE [id number] HIGH>SO=300 JUSTINO Y HIGH*Guidelines provided by the National Cholesterol EducationProgra m Adult Treatment Panel III TROP-I HIGH [id number] 14:57:00 Test Item Value Reference Range Interpretation [...] These resu lts were obtained using [employer] IM TnI Hreagent. Results from di fferent methodologies s hould not becompared to o ne another as quantitative results and URLs mayvar y by method. GLUCOSE [id number] 11:56:00 Test Item Value Reference Range Interpretation Comments GLUCOSE BEDSIDE (test 241 MG/DL 70-110 H Perfor med by certified code = GLUBED) composing machine operator/tender at [facility] GLUCOSE [id number] 08:03:00 Test Item Value Reference Range Interpretation Comments GLUCOSE BEDSIDE (test 209 MG/DL 70-110 H Perfor med by certified code = GLUBED) composing machine operator/tender at [facility] BASIC METABOLIC [id number] 04:59:00 Test Item Value Reference Range Interpretation [...] 9.2 mg/dL 8.0-10.5 N CA) CBC W/AUTO [id number] 04:50:00 Test Item Value Reference Range Interpretation [...] REQUIRED (test code NO = MDIFF) GLUCOSE [id number] 20:31:00 Test Item Value Reference Range Interpretation Comments GLUCOSE BEDSIDE (test 339 MG/DL 70-110 H Perfor med by certified code = GLUBED) composing machine operator/tender at [facility] [id number] 15:58:00 Test Item Value Reference Range Interpretation Comments ACT-ISTAT (test code 154 SEC 74-137 H Perform ed by certified = ACTI) composing machine operator/tender at [facility] [id number] 15:05:00 Test Item Value Reference Range Interpretation Comments ACT-ISTAT (test code 178 SEC 74-137 H Perform ed by certified = ACTI) composing machine operator/tender at [facility] [id number] 13:53:00 Test Item Value Reference Range Interpretation Comments ACT-ISTAT (test code 207 SEC 74-137 H Perform ed by certified = ACTI) composing machine operator/tender at [facility] GLUCOSE [id number] 12:53:00 Test Item Value Reference Range Interpretation Comments GLUCOSE BEDSIDE (test 150 MG/DL 70-110 H Perfor med by certified code = GLUBED) composing machine operator/tender at [facility] [id number] 12:12:00 Test Item Value Reference Range Interpretation Comments ACT-ISTAT (test code 261 SEC 74-137 H Perform ed by certified = ACTI) composing machine operator/tender at [facility] [id number] 11:36:00 Test Item Value Reference Range Interpretation Comments ACT-ISTAT (test code 261 SEC 74-137 H Perform ed by certified = ACTI) composing machine operator/tender at [facility] [id number] 11:02:00 Test Item Value Reference Range Interpretation Comments ACT-ISTAT (test code 321 SEC 74-137 H Perform ed by certified = ACTI) composing machine operator/tender at [facility] GLUCOSE [id number] 09:52:00 Test Item Value Reference Range Interpretation Comments GLUCOSE BEDSIDE (test 147 MG/DL 70-110 H [facility] med by certified code = GLUBED) composing machine operator/tender at [facility] BASIC METABOLIC [id number] 14:34:00 Test Item Value Reference Range Interpretation [...] = 8.8 mg/dL 8.0-10.5 N CA) PROTHROMBIN [id number] 14:28:00 Test Item Value Reference Range Interpretation [...] (to prevent recurrent infar ct). CBC W/AUTO [id number] 14:20:00 Test Item Value Reference Range Interpretation [...] 0.00 x10 3/uL 0.0-0.1 N NRBC#) - CHEST 2 [id number] 00:00:00 [facility] : 1960 Sex: F FAX: Dany Dean MD [phone] [place]: [address] St: REG Name: YOVANATAMY RUBIN [facility] : 1960 Age/S: 61/F [address] [place] [address] Unit #: [id number] Loc: [place] [address] Phys: Dany Mcdonald MD Acct: [id number] Dis Date: Status: REG [facility] PHONE #: [phone] Exam Date: 05/10/20211451 FAX #: Reason: PREOP EXAMS: CPT CODE: [id number] XR CHEST 2 V 30348 PROCEDURE INFORMATION: Exam:XR Chest Exam date and time: 05/10/2021 2:38 PM Age: 61 years old Clinical indication: Pre-operativeexam; Respiratory screening exam; Additional info: Preop TECHNIQUE: [...] M.D. CC: Dany Mcdonald MD Technologist: RT Leroy(Cristo) Trnscrd Date/Time/By: 05/10/2021 (2309) : By: [email or web address] Orig Print D/T: S: 05/10/2021 (2309) PAGE 1 Signed ReportPOCT-GLUCOSE [id number] 21:54:00 Test Item Value Reference Range Interpretation Comments POC-GLUCOSE METER 194 mg/dL 70-110 H TESTED AT [place] [address] ([facility]) (test code = JENIFER Lemons [facility] 1538) [address] POCT-GLUCOSE [id number] 16:50:00 Test Item Value Reference Range Interpretation Comments POC-GLUCOSE METER 134 mg/dL 70-110 H TESTED AT [place] [address] ([facility]) (test code = JENIFER Lemons [facility] 1538) [address] POCT-GLUCOSE [id number] 12:10:00 Test Item Value Reference Range Interpretation Comments POC-GLUCOSE METER 155 mg/dL 70-110 H TESTED AT [place] [address] ([facility]) (test code = JENIFER Lemons [facility] 1538) [address] POCT-GLUCOSE [id number] 05:34:00 Test Item Value Reference Range Interpretation Comments POC-GLUCOSE METER 249 mg/dL 70-110 H TESTED AT [place] [address] ([facility]) (test code = JENIFER Lemons [facility] 1538) [address] POCT-GLUCOSE [id number] 00:09:00 Test Item Value Reference Range Interpretation Comments POC-GLUCOSE METER 236 mg/dL 70-110 H TESTED AT [place] [address] ([facility]) (test code = JENIFER Lemons [facility] 1538) [address] POCT-GLUCOSE [id number] 21:17:00 Test Item Value Reference Range Interpretation Comments POC-GLUCOSE METER 153 mg/dL 70-110 H TESTED AT [place] [address] ([facility]) (test code = JENIFER Lemons [facility] 1538) [address] POCT-GLUCOSE [id number] 18:23:00 Test Item Value Reference Range Interpretation Comments POC-GLUCOSE METER 148 mg/dL 70-110 H TESTED AT [place] [address] ([facility]) (test code = JENIFER Lemons [facility] 1538) [address] FL, UGI, WITHOUT [id number] 17:33:00Reason for exam:->Please evaluate with thin barium [...] MDReport Verified Date/Time: 10/16/2018 17:33:25 Reading Location: [facility] C013X [facility] Consult Reading Room -GLUCOSE [id number] 05:59:00 Test Item Value Reference Range Interpretation Comments POC-GLUCOSE METER 192 mg/dL 70-110 H TESTED AT [place] [address] ([facility]) (test code = JENIFER Lemons [facility] 1538) [address] POCT-GLUCOSE [id number] 00:39:00 Test Item Value Reference Range Interpretation Comments POC-GLUCOSE METER 172 mg/dL 70-110 H TESTED AT [place] [id number] (HIRAL) (test code = JENIFER Lemons [facility] 1538) [address] POCT-GLUCOSE [id number] 22:13:00 Test Item Value Reference Range Interpretation Comments POC-GLUCOSE METER 187 mg/dL 70-110 H TESTED AT [place] [address] ([facility]) (test code = JENIFER Lemons [facility] 1538) [address] RAD, CHEST, 1 VIEW, NON [id number] 18:59:00Reason for exam:->preopShould this be performed at [...] No acute bony abnormality. Signed: Lottie Mcgraw [facility] Verified Date/Time: 10/15/2018 18:59:09 Reading Location: [address] Consult Reading Room [facility] METABOLIC [id number] 18:46:00 Test Item Value Reference Range Interpretation [...] NOT APPLICABLE FOR DIALYSIS PATIEN TS. HEMOGLOBIN [id number] 18:36:00 Test Item Value Reference Range Interpretation Comments HEMOGLOBIN A1C (BEAKER) (test code = 9.7 % 4.3-6.1 H 368) POCT-GLUCOSE [id number] 18:14:00 Test Item Value Reference Range Interpretation Comments POC-GLUCOSE METER 207 mg/dL 70-[address] [facility] 6720 (BEAKER) (test code = JENIFER Lemons [place] 1538) [address] CBC W/PLT COUNT & AUTO [id number] 18:13:00 Test Item Value Reference Range Interpretation [...] 0-1 PERCENT (BEAKER) (test code = 2801) Notes Date/Time Note Provider Source 2021-07-23 10:08:00-00:00 [facility] ([facility]) Discharge Summary REPORT#:[id number] REPORT STATUS: Signed DATE:07/23/21 TIME: 1008 PATIENT: TAMY MARTINEZ UNIT #: [id number] ROOM/BED: 3313-1 : 62 AGE: 61 SEX: F ATTEND: Nicolle Robertson MD ADM AUTHOR: Zoraida Felder CNP * ALL edits or amendments must be made on the el vushaperronic/computer document * PCP PCP PCP: PCP: No Primary or Family Physician Discharge to: home General Information Problem List/A P: 1. Coronary artery disease 2. Diabetes mellitus 3. Hypertension Date of admission: Observation Start Date: 07/21/21 Date of admission: 07/21/21 Discharge date: 07/23/21 Discharge diagnosis: CAD s/p PCI/Stent to RCA Post procedural left groin hematoma Hospital course: 61 YO female with MHx of sev ere CAD with prior stents, HTN, HLD, DM, CHF who is here for PCI of the RCA. She underwent PCI with MIKHAIL to RCA by Dr. Mcdonald. She developed post procedural left groin hematoma an d had to admitted to CCU for closer monitoring. The patient appear stable. Le ft groin stable. H/H further drop. 1. CAD s/p PCI/MIKHAIL to RCA continue DAPT, BB, statin, nitrates no CP 2. Posprocedural hematoma hgb 11.7->8.7->8.2->8.1 - H/H stable US showed soft tissue hematoma, no psedoaneurysm no indication for blood transfusion 3. Hypertension continue losartan, metoprolol, Imdur, and Lasix Monitor BP and adjust meds as needed 4. DMII continue insulin sliding scale patient on insulin regimena at home but NF here Discharge home today outpatient follow-up with Dr. Mcdonald next week Consultants: hospitalist Pt. condition on discharge: stable Allergies: Allergies: iodine (Coded, Intermediate, HIVES, 07/21/21) Med Rec PCP PCP: PCP: No Primary or Family Physician Med Rec Discharge meds: Stop taking the following medications: ISOSORBIDE DINITRATE (ISORDIL) 40 MG TAB 60 MILLIGRAM ORAL DAILY. Continue taking these medications: GABAPENTIN (NEURONTIN) 600 MG TAB 600 MILLIGRAM ORAL TWICE DAILY. FOLIC ACID (FOLIC ACID) 1 MG TAB 1 MILLIGRAM ORAL DAILY. METOPROLOL SUCC XL (TOPROL XL) 25 MG TAB.SR.24H 12.5 MILLIGRAM ORAL TWICE DAILY. ASPIRIN (ASPIRIN) 81 MG TAB.CHEW 81 MILLIGRAM ORAL DAILY. DULoxetine DR (CYMBALTA) 20 MG CAP.DR 20 MILLIGRAM ORAL DAILY. LOSARTAN (COZAAR) 50 MG TAB 50 MILLIGRAM ORAL DAILY. ATORVASTATIN (LIPITOR) 40 MG TAB 40 MILLIGRAM ORAL BEDTIME. METHOTREXATE (RHEUMATREX) 2.5 MG TAB 2.5 MILLIGRAM ORAL EVERY 7 DAYS. INSULIN ASPART (NovoLOG) 100 UNIT/ML VIAL UNITS SUBCUTANEOUS DIRECTED. Instructions: PER SLIDING SCALE Insulin Degludec (TRESIBA FLEXTOUCH U-100 (3mL)) 100 UNIT/ML PEN.INJCTR 26 UNITS SUBCUTANEOUS DAILY. HYDROcodone/APAP (NORCO 10/325) 10 MG-325 MG TAB 1 TABLET ORAL EVERY 6 HOURS NEEDED. as neede d for PAIN NITROGLYCERIN (NITROSTAT) 0.4 MG TAB.SL 0.4 MILLIGRAM SUBLINGUAL EVERY 5 MINUTES NEE DED. as needed for ANGINA Days = 30 Qty = 100 CLOPIDOGREL (PLAVIX) 75 MG TAB 75 MILLIGRAM ORAL DAILY. Days = 30 Qty = 30 [XELJANZ] (Unknown Strength) Unknown Dose ORAL DAILY. CEFDINIR (OMNICEF) 300 MG CAP 300 MILLIGRAM ORAL EVERY 12 HOURS. Comments: JULY 2021 POTASSIUM CHLORIDE ER (KLOR-CON 10) 10 MEQ TAB.S A 10 MILLIEQUIVALENT ORAL DAILY. FUROSEMIDE (LASIX) 40 MG TAB 40 MILLIGRAM ORAL DAILY. predniSONE (predniSONE) 20 MG TAB 20 MILLIGRAM ORAL DAILY. Comments: JULY 2021 ALBUTEROL (VENTOLIN HFA 90 MCG/ACT 18 GM) 90 MCG INHALER 2 PUFF INHALATION RT - EVERY 6 HOURS NEEDED. as needed for PNEUMONIA Start taking the following new medications: ISOSORBIDE MONONITRATE SR (IMDUR) 30 MG TAB.SR.2 4H 60 MILLIGRAM ORAL DAILY. Days = 30 Qty = 60 Refills = 2 Objective VS/I O Last Documented: Result Date Time Pulse Ox 99 07/23 0830 Pulse 67 07/23 0830 Resp 22 07/23 0830 B/P 139/58 07/23 0800 B/P Mean 83 07/23 0800 Temp 36.6 07/23 0400 O2 Delivery Room air 07/22 1624 24 hour I O ending at 0700: 07/23 0700 07/22 1900 Intake Total 450 600 Output Total 275 Balance 450 325 Intake, Oral 450 600 Number 1 Bowel Movements Number Voids 3 2 Output, Urine 275 PATIENT WEIGHT: Weight (lb): 218 Weight (oz): 0.59 Weight (kg): 98.900 General appearance: alert, awake, oriented, no a cute distress, pleasant, conversational Neck: full range of motion, non-tender, no JVD Cardiovascular: normal capillary refill, regular rate rhythm, normal heart sounds, BP/pulses equal bilat. Respiratory: clear to auscultation, no distress, no tenderness, aerating well GI: soft, non-tender, no guarding, no rebound, n o distention Genitourinary: not indicated Extremities: moves all Musculoskeletal: full range of motion 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, oriented X 3 Skin: dry Wound/incision: Location: Left groin hematoma stable Psychiatry: no hallucinations, normal affect, no rmal judgment/insight, normal mood Results Findings/Data: Laboratory Tests: 07/23 07/23 07/22 07/22 4171 7510 2000 1500 Chemistry POC Glucose (70 - 110 MG/DL) 183 H 251 H Hematology WBC (4.5 - 11.0 x10 3/uL) 8.8 14.8 H RBC (3.54 - 5.02 x10 6/uL) 2.78 L 2.77 L Hgb (11.0 - 15.0 g/dL) 8.2 L 8.1 L Hct (33.0 - 45.0 %) 25.2 L 25.0 L MCV (81.0 - 99.0 fL) 90.6 90.3 MCH (27.0 - 33.0 pg) 29.5 29.2 MCHC (33.0 - 37.0 g/dL) 32.5 L 32.4 L RDW (11.5 - 14.5 %) 16.7 H 16.3 H Plt Count (150 - 400 x10 3/uL) 213 256 MPV (7.0 - 9.0 fL) 9.8 H 9.8 H Neut % (Auto) (56.0 - 77.0 %) 63.3 71.9 Lymph % (Auto) (14.0 - 32.0 %) 23.2 17.7 [place] % (Auto) (4.8 - 9.0 %) 10.5 H 9.2 H Eos % (Auto) (0.3 - 3.7 %) 1.3 0.3 Baso % (Auto) (0.0 - 2.0 %) 0.3 0.1 Neut # (Auto) (2.0 - 7.6 x10 3/uL) 5.55 10.65 H Lymph # (Auto) (1.0 - 3.8 x10 3/uL) 2.03 2.62 [place] # (Auto) (0.1 - 0.8 x10 3/uL) 0.92 H 1.37 H Eos # (Auto) (0.0 - 0.2 x10 3/uL) 0.11 0.05 Baso # (Auto) (0.0 - 0.2 x10 3/uL) 0.03 0.02 Abs Immat Gran (auto) (0.00 - 0.03 0.12 H 0.12 H x10 3/uL) Add Manual Diff NO NO Immature Gran % (0.0 - 2.0 %) 1.4 0.8 Nucleated RBC % (0 - 0 %) 0.0 0.0 Nucleated RBCs # (Man) (0.0 - 0.1 x10 3/uL) 0.0 0 0.00 07/22 1104 Chemistry POC Glucose (70 - 110 MG/DL) 148 H Results: labs reviewed, vital signs reviewed, vi sherri signs stable Discharge Instructions PCP PCP: PCP: No Primary or Family Physician )( Discharge to: Home/Self Care Discharge Instructions Additional Discharge Routines: Attending Follow- Up, Interface Designer Follow-Up )( Diet: Diabetic )( Activity: Resume Normal Activity, As Tolerate d )( Wound/dressing care: Keep wound clean and dry , OK to shower tomorrow Prescriptions: e-prescribe Follow-up Appointments Attending Physician: Attending Physician: Dany Mcdonald MD Attending physician follow up timeframe: In 1-2 weeks Consulting provider 1: Provider 1: Dany Mcdonald MD Specialty: CardiologyInterventional Consult follow up timeframe: In 1-2 weeks Quality: Discharge Current Medications Current medication review: I attest that the foregoing medication list in t medical record is true, accurate, and complete to the best of my knowled ge. at 1013 Electronically Signed by Inga Robertson MD on at 2201 RPT #:[id number] END OF REPORT 2021-07-23 07:32:00-00:00 [facility] Cardiology Progress Note REPORT#:[id number] REPORT STATUS: Signed DATE:07/23/21 TIME: 731 PATIENT: TAMY MARTINEZ UNIT #: [id number] ROOM/BED: [place] [address] : [birth year] AGE: 61 SEX: F ATTEND: Nicolle Robertson MD ADM AUTHOR: Zoraida Felder CNP * ALL edits or amendments must be made on the [employer] document * See Addendum Subjective Patient reports: No: complaints, abdominal pa in, chest pain, confused, cough, dizziness, fatigue, fever, headache, nausea, palpitations, shortness of breath, swelling. Objective General VS/I O: 24 hour I O ending at 0700: 07/23 0700 07/22 1900 Intake Total 450 600 Output Total 275 Balance 450 325 Intake, Oral 450 600 Number 1 Bowel Movements Number Voids 3 2 Output, Urine 275 Vital Signs: Date Time Temp Pulse Resp B/P B/P Pulse O2 O2 F low FiO2 Mean Ox Delivery Rate 07/23 0830 67 22 99 07/23 0800 67 16 139/58 83 98 07/23 0730 66 15 97 07/23 0701 66 17 125/60 87 98 07/23 0700 66 15 96 07/23 0400 36.6 65 16 115/55 79 96 07/23 0302 66 14 106/51 74 96 07/23 0244 64 15 109/53 76 97 07/23 0117 64 14 115/56 80 98 07/23 0000 36.7 07/23 0000 36.7 66 15 122/58 84 95 05 2300 66 33 120/59 85 96 07/22 2200 66 62 126/58 84 98 07/22 2101 70 29 110/53 76 96 07/22 2001 36.9 73 104/60 76 100 07/22 1901 67 16 130/56 81 97 07/22 1624 36.9 Room air 07/22 1432 68 18 107/55 79 07/22 1430 99 07/22 1320 71 16 99 07/22 1315 70 15 95 07/22 1301 73 114/71 85 99 07/22 1230 67 24 99 07/22 1201 66 18 140/60 87 98 07/22 1145 67 19 98 07/22 1130 36.4 Room air 07/22 1130 68 99 / 1115 71 92 / 1100 69 137/82 103 86 05/ 1045 66 24 98 / 1030 65 16 98 PATIENT WEIGHT: Weight (lb): 218 Weight (oz): 0.59 Weight (kg): 98.900 Medications: Active Meds + DC'd Last 24 Hrs Furosemide (LASIX) 40 MG DAILY PO Isosorbide Dinitrate (ISORDIL) 60 MG DAILY PO (C AN) Isosorbide Mononitrate (Imdur 30 mg) 60 MG DAILY PO Acetaminophen (TYLENOL) 650 MG Q6H PRN PRN PO Atorvastatin Calcium (LIPITOR) 40 MG BEDTIME PO Nitroglycerin (NITROSTAT) 0.4 MG Q5M PRN PRN SL Clopidogrel Bisulfate (Plavix) 75 MG DAILY PO Metoprolol Succinate (TOPROL XL) 12.5 MG BID PO Gabapentin (NEURONTIN) 600 MG BID PO Duloxetine HCl (CYMBALTA) 20 MG DAILY PO Folic Acid (FOLIC ACID) 1 MG DAILY PO Losartan Potassium (COZAAR) 50 MG DAILY PO Aspirin (ASPIRIN) 81 MG DAILY PO Mupirocin (BACTROBAN 2% 22 GM OINTMENT) 1 APPLIC BID NASAL Insulin Human Lispro (HUMALOG) 0 AC HS SUBQ Dextrose/Water (DEXTROSE 50% W SYRINGE) 50 ML DIR PRN IV (CKD) Ondansetron HCl (ZOFRAN) 4 MG Q4H PRN PRN IV Dextrose/Water (DEXTROSE 50% W SYRINGE) 25 ML DIR PRN IV (CKD) Dextrose/Water (DEXTROSE 50% W SYRINGE) 50 ML DIR PRN IV (DC) Glucagon (GLUCAGON) 1 MG ASDIR PRN IM Atropine Sulfate (ATROPINE SULFATE 0.1MG/ML SYR) 0.5 MG ASDIR PRN IV Sodium Chloride (SODIUM CHLORIDE 0.9%) 500 ML DIR PRN IV Physical Exam General appearance: alert, awake, oriented, no a cute distress Neck: non-tender, no JVD Cardiovascular: CV assessment: regular rate and rhythm Respiratory: clear to auscultation, no distress Abdomen: soft, non-tender, normal bowel sounds, no distention Genitourinary: no flank pain, no hilliard Lower extremity: LE assessment: no calf tenderness, no edema Musculoskeletal: normal inspection 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, oriented X 3, normal speech Wound/incision: Location: left groin access hematoma stable Psychiatry: normal affect, normal judgment/insig ht, normal mood Results Findings/Data: Laboratory Tests 07/23 07/22 07/22 0751 2001 1104 Chemistry POC Glucose (70 - 110 MG/DL) 183 H 251 H 148 H Laboratory Tests 07/23 07/22 0405 1500 Hematology WBC (4.5 - 11.0 x10 3/uL) 8.8 14.8 H RBC (3.54 - 5.02 x10 6/uL) 2.78 L 2.77 L Hgb (11.0 - 15.0 g/dL) 8.2 L 8.1 L Hct (33.0 - 45.0 %) 25.2 L 25.0 L MCV (81.0 - 99.0 fL) 90.6 90.3 MCH (27.0 - 33.0 pg) 29.5 29.2 MCHC (33.0 - 37.0 g/dL) 32.5 L 32.4 L RDW (11.5 - 14.5 %) 16.7 H 16.3 H Plt Count (150 - 400 x10 3/uL) 213 256 MPV (7.0 - 9.0 fL) 9.8 H 9.8 H Neut % (Auto) (56.0 - 77.0 %) 63.3 71.9 Lymph % (Auto) (14.0 - 32.0 %) 23.2 17.7 [place] % (Auto) (4.8 - 9.0 %) 10.5 H 9.2 H Eos % (Auto) (0.3 - 3.7 %) 1.3 0.3 Baso % (Auto) (0.0 - 2.0 %) 0.3 0.1 Neut # (Auto) (2.0 - 7.6 x10 3/uL) 5.55 10.65 H Lymph # (Auto) (1.0 - 3.8 x10 3/uL) 2.03 2.62 [place] # (Auto) (0.1 - 0.8 x10 3/uL) 0.92 H 1.37 H Eos # (Auto) (0.0 - 0.2 x10 3/uL) 0.11 0.05 Baso # (Auto) (0.0 - 0.2 x10 3/uL) 0.03 0.02 Abs Immat Gran (auto) (0.00 - 0.03 x10 3/uL) 0. 12 H 0.12 H Add Manual Diff NO NO Immature Gran % (0.0 - 2.0 %) 1.4 0.8 Nucleated RBC % (0 - 0 %) 0.0 0.0 Nucleated RBCs # (Man) (0.0 - 0.1 x10 3/uL) 0.0 0 0.00 Telemetry Interpretation: sinus rhyhm Diagnosis, Assessment Plan Plan discussed with: patient, nurse Free Text DxA P Notes Free Text DxA P Notes: 61 YO female with MHx of sev ere CAD with prior stents, HTN, HLD, DM, CHF who is here for PCI of the RCA. She underwent PCI with MIKHAIL to RCA by Dr. Mcdonald. She developed post procedural left groin hematoma an d had to admitted to CCU for closer monitoring. She also had nonsustained Vta ch during recovery. Currently patient is stable. Left groin hematoma about the same size as yesterday. Hgb preop was 11.7, down to 8.7 this morning. 1. CAD s/p PCI/MIKHAIL to RCA continue DAPT, BB, statin, nitrates no CP 2. Posprocedural hematoma hgb 11.7->8.7->8.2->8.1 - H/H stable US showed soft tissue hematoma, no psedoaneurysm no indication for blood transfusion 3. Hypertension continue losartan, metoprolol, Imdur, and Lasix Monitor BP and adjust meds as needed 4. DMII continue insulin sliding scale patient on insulin regimena at home but NF here Discharge home today outpatient follow-up with Dr. Mcdonald next week at 1007 Electronically Signed by Inga Robertson MD on at 2201 Addendum 1: 07/23/21 1345 by Zoraida Felder Orthostatic hypotension upon getting up. also wi th headache. Suspect due to imdur. will DC Imdur and Las ix. Give NS bolus 250-500 ml x1. Hold discharge for now. If BP stable then should be able to go home later this affternoon or tomorrow morning. at 1346 RPT #:[id number] END OF REPORT 2021-07-23 04:31:00-00:00 [id number] [facility] Elida lemons [address] [place] [address] PATIENT NAME: TAMY MARTINEZ ADMIT DATE: ACCOUNT NO: [id number] ROOM NO: [id number] AGE: 61 REPORT TYPE: eECHOCARDIOGRAM REPORT SEX: F ADMITTING PHYSICIAN:Inga Robertson MD ATTENDING PHYSICIAN:Inga Robertson MD *[place] [address] Limited Transthoracic Echocardiogram Patient: Tamy Martinez Study Date: 07/21/2021 BP: 105 / 51 Location: [facility] URN: [id number] : 1960 Age: 61 Height: 61 in / 155 cm Gender: F Weight: 204 .6 lb / 93 kg BMI/BSA: 38.7 kg/m 2 / 2.05 m 2 *Ordering Physician: * Inga Robertson MD *Interpreting Physician: * Inga Robertson MD *Maintenance Leader: * Danny Dobbins Indications: V TACH. Study data: Transthoracic echocardiogram, limite d study. Limited 2D and limited spectral Doppler. Location: Bedside. Patient status: Inpatient. Patient room number: PACU. Study stat us: Stat. Findings Left ventricle: The cavity size is normal. Wall thickness is mildly increased. Systolic function is normal. The sherita mated ejection fraction is 60-66%. Pericardium: There is no pericardial effusion. N o evidence of pleural fluid accumulation. Measurements PATIENT NAME: TMAY MARTINEZ ACCOUNT #: [id number] Left ventricle Value 06/24/2021 Ref IVORY, LAX 3.8 cm 4.5 3.8 - 5.2 ESD, LAX 2.6 cm 2.9 2.2 - 3.5 ESD/bsa, 1.3 cm/m 2 1.5 1.3 - LAX 2.1 FS, LAX 32 % 36 27 - 45 PW, ED 1.3 cm 1.0 0.6 - 0.9 IVS/PW, ED 0.98 1.05 ------- EF 60 % 66 54 - 74 LVOT Value 06/24/2021 Ref Diam, S 1.92 cm ------- Area 2.9 cm 2 ------- Ventricular septum Value 06/24/2021 Ref IVS, ED 1.3 cm 1.0 0.6 - 0.9 Conclusions Summary: Left ventricle: The cavity size is norm al. Wall thickness is mildly increased. Systolic function is normal. [place] estimated ejection fraction is 60-66%. Prepared and electronically signed by Inga Robertson MD 07/23/2021 04:31 Electronically Signed by Inga Robertson MD on 0 07/23/21 at 0431 PATIENT NAME: TAMY MARTINEZ ACCOUNT #: [id number] 2021-07-22 15:06:00-00:00 HCACL [facility] ([facility]) Critical Care Consult Note REPORT#:[id number] REPORT STATUS: Signed DATE:07/22/21 TIME: 1506 PATIENT: TAMY MARTINEZ UNIT #: [id number] ROOM/BED: [place] [address] : 64 AGE: 61 SEX: F ATTEND: Nicolle Robertson MD ADM AUTHOR: Kavitha Dior * ALL edits or amendments must be made on the Wooop/computer document * History of Present Illness HPI Reason for consult: ICU management Chief complaint: S/p PCI with hematoma Sleeping comfortably, she is easy to arouse. Rep orts left groin tenderness. On room air saturation 96%. SR 60's. Free Text HPI Notes Free Text HPI Notes: 61 YO female with MHx of sev ere CAD with prior stents, HTN, HLD, DM, CHF who is here for PCI of the RCA. She underwent PCI with MIKHAIL to RCA on . She developed post procedural left groin hematoma and had to a dmitted to CCU for closer monitoring and further manag ement. Patient also experienced nonsustained V. tach during the recovery period. History - Adult longitudinal Past medical history: Reports: Coronary artery disease, Diabetes melli tus, Hypertension, Ischemic stroke. Denies: Atrial fibrillation, Congestive heart failure. Past surgical history: Reports: Cholecystectomy. Additional family history: Non contributory Alcohol use: Denies EtOH use Drug use: Benzodiazepines Smoking status: Smoking status for patients 13 years old or old er: Never Smoker Medications: Home Medications: Medication Dose/Rte/Freq Days Qty Entered Last Max Daily Dose Reviewed LOSARTAN (COZAAR) 50 MG PO DAILY 05/10/2107/21 Strength: 50 MG TAB 4514 8541 GABAPENTIN (NEURONTIN) 600 MG PO BID 05/10/21 0 07/21/21 Strength: 600 MG TAB 1450 1351 FOLIC ACID 1 MG PO DAILY 05/10/21 07/21/21 Strength: 1 MG TAB 1450 1351 METOPROLOL SUCC XL 12.5 MG PO BID 05/10/2107/11 (TOPROL XL) 1450 1351 Strength: 25 MG TAB.SR.24H ISOSORBIDE DINITRATE 60 MG PO DAILY 05/10/21 (ISORDIL) 1452 1351 Strength: 40 MG TAB ASPIRIN 81 MG PO DAILY 05/10/21 07/21/21 Strength: 81 MG TAB.CHEW [address] (CYMBALTA) 20 MG PO DAILY 2 07/21/21 Strength: 20 MG CAP.DR 1452 1351 ATORVASTATIN (LIPITOR) 40 MG PO BEDTIME 2 07/21/21 Strength: 40 MG TAB 1455 1351 METHOTREXATE 2.5 MG PO Q7D 05/10/21 07/21/21 (RHEUMATREX) 1456 1351 Strength: 2.5 MG TAB INSULIN ASPART (NovoLOG) 05/10/21 07/21/21 Strength: 100 UNIT/ML 1456 1351 VIAL Insulin Degludec 26 UNITS SUBQ DAILY 05/10/21 0 07/21/21 (TRESIBA FLEXTOUCH 1457 1351 U-100 (3mL)) Strength: 100 UNIT/ML PEN.INJCTR HYDROcodone/APAP 1 TAB PO 05/12/21 07/21/21 (NORCO 10/325) Q6H PRN PRN PAIN 1316 1351 Strength: 10 MG-325 MG TAB [XELJANZ] (Unknown Dose) PO 06/21/21 07/21/21 Strength: (Unknown DAILY 1440 1351 Strength) CEFDINIR (OMNICEF) 300 MG PO Q12H 07/19/2102/01 Strength: 300 MG CAP 1610 1351 POTASSIUM CHLORIDE ER 10 MEQ PO DAILY 07/19/21 07/21/21 (KLOR-CON 10) 1611 1351 Strength: 10 MEQ TAB.SA FUROSEMIDE (LASIX) 40 MG PO DAILY 07/19/2107/11 Strength: 40 MG TAB 1611 1351 predniSONE 20 MG PO DAILY 07/19/21 07/21/21 Strength: 20 MG TAB 1612 1351 ALBUTEROL 2 PUFF INH 07/19/21 07/21/21 (VENTOLIN HFA 90 RTQ6H PRN PRN 1612 1351 MCG/ACT 18 GM) PNEUMONIA Strength: 90 MCG INHALER NITROGLYCERIN 0.4 MG SL 30 100 05/13/21 2 (NITROSTAT) Q5M PRN PRN ANGINA 1740 1351 Strength: 0.4 MG TAB.SL CLOPIDOGREL (PLAVIX) 75 MG PO DAILY 30 30 05/1307/21/21 Strength: 75 MG TAB 1745 1351 Current Hospital Medications: Autonomic Drugs Sig/Nandini Start time Last Medication Dose Route Stop Time Status Admin Atropine Sulfate 0 .STK-MED ONE 07/21 1640 DC (ATROPINE SULFATE IV 0.1MG/ML SYR) Atropine Sulfate 0.5 MG ASDIR PRN 07/21 1530 AC (ATROPINE SULFATE IV 08/20 1529 0.1MG/ML SYR) Atropine Sulfate 0 .STK-MED ONE 07/21 1519 DC 0 07/21 (ATROPINE SULFATE IV 1521 0.1MG/ML SYR) Blood Formation,Coagulation Sig/Nandini Start time Last Medication Dose Route Stop Time Status Admin Clopidogrel Bisulfate 75 MG DAILY 07/22 1029 AC 07/22 (Plavix) PO 08/21 1028 1050 Clopidogrel Bisulfate 0 .STK-MED ONE 07/21 1540 DC 07/21 (CLOPIDOGREL .ROUTE 1543 BISULFATE) Cardiovascular Drugs Sig/Nandini Start time Last Medication Dose Route Stop Time Status Admin Isosorbide Dinitrate 60 MG DAILY 07/23 0900 CAN (ISORDIL) PO 08/22 0859 Isosorbide 60 MG DAILY 07/23 0900 AC Mononitrate PO 08/22 0859 (Imdur 30 mg) Atorvastatin Calcium 40 MG BEDTIME 07/22 2100 A C (LIPITOR) PO 08/21 205 Nitroglycerin 0.4 MG Q5M PRN PRN 07/22 1030 AC (NITROSTAT) SL 08/21 1029 Metoprolol Succinate 12.5 MG BID 07/22 1029 AC 07/22 (TOPROL XL) PO 08/21 1028 1050 Losartan Potassium 50 MG DAILY 07/22 1026 AC (COZAAR) PO 06/11 1025 1049 Central Nervous System Agents Sig/Nandini Start time Last Medication Dose Route Stop Time Status Admin Gabapentin 600 MG BID 07/22 1028 AC 07/22 (NEURONTIN) PO 08/21 1027 1049 Duloxetine HCl 20 MG DAILY 07/22 1026 AC 07/22 (CYMBALTA) PO 08/21 1025 1049 Aspirin 81 MG DAILY 07/22 1025 AC 07/22 (ASPIRIN) PO 08/21 1024 1050 Magnesium Sulfate 50 ML ONCE ONE 07/21 1900 DC 07/21 (MAGNESIUM SULFATE IV 07/21 2058 1927 2GM/SWFI 50ML) Hydrocodone Bitart/ 1 TAB ONCE ONE 07/21 181 D C 07/21 Acetaminophen PO 07/21 (NORCO 5/325) Morphine Sulfate 2 MG ONCE ONE 07/21 1814 DC (morphine SULFATE) IV 07/21 Hydrocodone Bitart/ 0 .STK-MED ONE 07/21 1812 D C Acetaminophen .ROUTE (NORCO 5/325) Morphine Sulfate 0 .STK-MED ONE 07/21 1812 DC (morphine SULFATE) .ROUTE Electrolytic, Caloric, And Maico Sig/Nandini Start time Last Medication Dose Route Stop Time Status Admin Furosemide 40 MG DAILY 07/23 0900 AC (LASIX) PO 08/22 0859 Dextrose/Water 50 ML ASDIR PRN 07/21 2130 CKD (DEXTROSE 50% W IV 08/209 SYRINGE) Dextrose/Water 25 ML ASDIR PRN 07/21 1645 CKD (DEXTROSE 50% W IV 08/20 1644 SYRINGE) Dextrose/Water 50 ML ASDIR PRN 07/21 1645 DC (DEXTROSE 50% W IV 08/20 164 SYRINGE) Sodium Chloride 1,000 ML .[id number] ONE 07/21 153 0 DC 07/21 (SODIUM CHLORIDE IV 07/22 0449 1642 0.9%) Sodium Chloride 500 ML ASDIR PRN 07/21 1530 AC (SODIUM CHLORIDE IV 08/20 1529 0.9%) Gastrointestinal Drugs Sig/Nandini Start time Last Medication Dose Route Stop Time Status Admin Ondansetron HCl 4 MG Q4H PRN PRN 07/21 1815 AC 07/21 (ZOFRAN) IV 08/20 Ondansetron HCl 0 .STK-MED ONE 05/11 1813 DC (ZOFRAN) .ROUTE Hormones And Synthetic Substit Sig/Nandini Start time Last Medication Dose Route Stop Time Status Admin Insulin Human Lispro 0 AC HS 07/22 0730 AC (HUMALOG) SUBQ 08/21 0729 Insulin Human Regular 100 UNIT ASDIR 07/21 213 0 DC 07/21 (HumuLIN R) IV 08/20 2128 2231 Sodium Chloride 99 ML (SODIUM CHLORIDE 0.9%) Insulin Human Lispro 0 AC HS 07/21 2100 DC 07/11 1 (HUMALOG) SUBQ 08/20 2058 1643 Insulin Human Lispro 0 AC HS 07/21 2100 DC (HUMALOG) SUBQ 08/20 2058 Insulin Human Lispro 0 .STK-MED ONE 07/21 1931 DC (HUMALOG) SUBQ Insulin Human Lispro 10 UNIT ONCE ONE 07/21 193 0 DC 07/21 (HUMALOG) SUBQ 07/21 193 1933 Glucagon 1 MG ASDIR PRN 07/21 1645 AC (GLUCAGON) IM 08/20 1644 Insulin Human Lispro 0 .STK-MED ONE 07/21 1642 DC (HUMALOG) SUBQ Skin And Mucous Membrane Agent Sig/Nandini Start time Last Medication Dose Route Stop Time Status Admin Mupirocin 1 APPLIC BID 07/22 0900 AC 07/22 (BACTROBAN 2% 22 GM NASAL 07/26 2100 0910 OINTMENT) Vitamins Sig/Nandini Start time Last Medication Dose Route Stop Time Status Admin Folic Acid 1 MG DAILY 07/22 1026 AC 07/22 (FOLIC ACID) PO 08/21 1025 1050 Allergies: Coded Allergies: iodine (Intermediate, HIVES 07/21/21) Converted from Ingredient Allergy: IODINE Ambulatory status: Independent Review of Systems ROS Constitutional: Denies: fatigue, generalized weakness, lethargy. Skin: Denies: bruising, itching, swelling. Allergy/Immun: Denies: allergic reaction, anaphylaxis, hives, i tching, sneezing. Eyes: Denies: redness, discharge, visual loss/blurred. ENT: Denies: nasal congestion, sore throat, throat pa in. Respiratory: Denies: productive cough (sputum), SOB. Cardiovascular: Reports: chest pain. Denies: ELLIS (dyspnea on exe rtion), edema, palpitations. GI: Denies: abdominal pain, nausea, vomiting. : Denies: dysuria, flank pain, frequency, hematuri a. Musculoskeletal: Reports: extremity pain, extremity swelling. Heme: Reports: bruising, petechiae. Denies: adenopathy , bleeding. Endocrine: Denies: polydipsia, polyphagia, polyuria, weight gain, weight loss. Neuro: Denies: gait problem, headache, lightheaded, num bness, syncope. Psych: Denies: change in mental status. Objective Physical Exam Medications: Active Meds + DC'd Last 24 Hrs Furosemide (LASIX) 40 MG DAILY PO Isosorbide Dinitrate (ISORDIL) 60 MG DAILY PO (C AN) Isosorbide Mononitrate (Imdur 30 mg) 60 MG DAILY PO Atorvastatin Calcium (LIPITOR) 40 MG BEDTIME PO Nitroglycerin (NITROSTAT) 0.4 MG Q5M PRN PRN SL Clopidogrel Bisulfate (Plavix) 75 MG DAILY PO Metoprolol Succinate (TOPROL XL) 12.5 MG BID PO Gabapentin (NEURONTIN) 600 MG BID PO Duloxetine HCl (CYMBALTA) 20 MG DAILY PO Folic Acid (FOLIC ACID) 1 MG DAILY PO Losartan Potassium (COZAAR) 50 MG DAILY PO Aspirin (ASPIRIN) 81 MG DAILY PO Mupirocin (BACTROBAN 2% 22 GM OINTMENT) 1 APPLIC BID NASAL Insulin Human Lispro (HUMALOG) 0 AC HS SUBQ Dextrose/Water (DEXTROSE 50% W SYRINGE) 50 ML DIR PRN IV (CKD) Insulin Human Regular (HumuLIN R) 100 UNIT ASDIR IV (DC) Sodium Chloride (SODIUM CHLORIDE 0.9%) 99 ML Insulin Human Lispro (HUMALOG) 0 AC HS SUBQ (DC) Insulin Human Lispro (HUMALOG) 0 AC HS SUBQ (DC) Insulin Human Lispro (HUMALOG) 0 .STK-MED ONE MOBLEY BQ (DC) Insulin Human Lispro (HUMALOG) 10 UNIT ONCE ONE SUBQ (DC) Magnesium Sulfate (MAGNESIUM SULFATE 2GM/SWFI 50 ML) 50 ML ONCE ONE IV ( DC) Hydrocodone Bitart/Acetaminophen (NORCO 5/325) 1 TAB ONCE ONE PO (DC) Morphine Sulfate (morphine SULFATE) 2 MG ONCE ON E IV (DC) Ondansetron HCl (ZOFRAN) 4 MG Q4H PRN PRN IV Hydrocodone Bitart/Acetaminophen (NORCO 5/325) 0 .STK-MED ONE .ROUTE (DC ) Morphine Sulfate (morphine SULFATE) 0 .STK-MED O NE .ROUTE (DC) Ondansetron HCl (ZOFRAN) 0 .STK-MED ONE .ROUTE ( DC) Dextrose/Water (DEXTROSE 50% W SYRINGE) 25 ML DIR PRN IV (CKD) Dextrose/Water (DEXTROSE 50% W SYRINGE) 50 ML DIR PRN IV (DC) Glucagon (GLUCAGON) 1 MG ASDIR PRN IM Insulin Human Lispro (HUMALOG) 0 .STK-MED ONE MOBLEY BQ (DC) Atropine Sulfate (ATROPINE SULFATE 0.1MG/ML SYR) 0 .STK-MED ONE IV (DC) Clopidogrel Bisulfate (CLOPIDOGREL BISULFATE) 0 .STK-MED ONE .ROUTE (DC) Atropine Sulfate (ATROPINE SULFATE 0.1MG/ML SYR) 0.5 MG ASDIR PRN IV Sodium Chloride (SODIUM CHLORIDE 0.9%) 1,000 ML .[id number] ONE IV (DC) Sodium Chloride (SODIUM CHLORIDE 0.9%) 500 ML DIR PRN IV Atropine Sulfate (ATROPINE SULFATE 0.1MG/ML SYR) 0 .STK-MED ONE IV (DC) General appearance: alert, awake, oriented, no a cute distress Head/Eyes: atraumatic, normocephalic ENT: moist mucosal membranes Neck: full range of motion, non-tender, supple/n o meningismus, no masses or swelling Cardiovascular: normal capillary refill, normal heart sounds, normal S1/S2 Respiratory: aerating well, clear to auscultatio n Gastrointestinal: tolerating clear liquids Abdomen: obese, soft, non-tender Abdomen quadrants: LLQ normal bowel sounds, LUQ normal lo l sounds, RLQ normal bowel sounds, RUQ normal bowel sounds Genitourinary: no bladder distention, no flank p ain Extremities: decreased range of motion, edema, pedal pulses, Left groin hematona , soft, no change in size Vascular pulse assessment: palpated: R posterior tibialis, L posterior tibi mario, R dorsalis pedis, L dorsalis pedis, R radial, L radial. 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, oriented X 3, normal speech, n o motor deficits, no sensory deficits Wound/incision: Location: Left groin sx site. Psychiatry: normal affect, normal mood Results Findings/Data: Laboratory Tests 07/22/21 0440: [Embedded Image Not Available] 07/21/211929: [Embedded Image Not Available] 07/21/211804: [Embedded Image Not Available] Laboratory Tests 07/22 07/22 07/22 07/22 07/22 1104 0559 0507 0440 0354 Chemistry Sodium (134 - 147 mEq/L) 135 Potassium (3.4 - 5.0 mEq/L) 4.6 Chloride (100 - 108 mEq/L) 106 Carbon Dioxide (21 - 33 mEq/l) 22 Anion Gap (0 - 20) 11 BUN (7 - 18 mg/dL) 24 H Creatinine (0.6 - 1.3 mg/dL) 1.3 Glomerular Filtr Rate (90 - 95) 41.9 L Glucose (70 - 110 mg/dL) 151 H POC Glucose (70 - 110 MG/DL) 148 H 106 118 H 17 0 H Calcium (8.0 - 10.5 mg/dL) 8.6 Magnesium (1.80 - 2.40 mg/dL) 2.54 H 07/22 07/22 07/22 07/22 07/21 0300 0156 0101 0003 2256 Chemistry POC Glucose (70 - 110 MG/DL) 219 H 256 H 307 H 333 H 328 H 07/21 191 1805 1559 Chemistry Sodium (134 - 147 mEq/L) 133 L Potassium (3.4 - 5.0 mEq/L) 4.8 Chloride (100 - 108 mEq/L) 103 Carbon Dioxide (21 - 33 mEq/l) 22 Anion Gap (0 - 20) 13 BUN (7 - 18 mg/dL) 30 H Creatinine (0.6 - 1.3 mg/dL) 1.3 Glomerular Filtr Rate (90 - 95) 41.9 L Glucose (70 - 110 mg/dL) 468 *H POC Glucose (70 - 110 MG/DL) 402 H 417 H 427 H 363 H Calcium (8.0 - 10.5 mg/dL) 7.8 L Magnesium (1.80 - 2.40 mg/dL) 1.79 L Laboratory Tests 07/21 1527 Coagulation Activated Coag Time (74 - 137 SEC) 255 H Laboratory Tests 05/12 05/11 05/11 0440 1930 1805 Hematology WBC (4.5 - 11.0 x10 3/uL) 12.9 H 11.0 10.8 RBC (3.54 - 5.02 x10 6/uL) 3.07 L 3.02 L 3.19 L Hgb (11.0 - 15.0 g/dL) 8.7 L 8.8 L 9.4 L Hct (33.0 - 45.0 %) 27.7 L 27.2 L 28.5 L MCV (81.0 - 99.0 fL) 90.2 90.1 89.3 MCH (27.0 - 33.0 pg) 28.3 29.1 29.5 MCHC (33.0 - 37.0 g/dL) 31.4 L 32.4 L 33.0 RDW (11.5 - 14.5 %) 16.1 H 16.2 H 16.1 H Plt Count (150 - 400 x10 3/uL) 312 304 315 MPV (7.0 - 9.0 fL) 9.7 H 9.7 H 9.7 H Neut % (Auto) (56.0 - 77.0 %) 76.4 85.9 H 83.8 H Lymph % (Auto) (14.0 - 32.0 %) 14.2 10.4 L 12.3 L [place] % (Auto) (4.8 - 9.0 %) 7.7 2.2 L 2.4 L Eos % (Auto) (0.3 - 3.7 %) 0.0 L 0.0 L 0.1 L Baso % (Auto) (0.0 - 2.0 %) 0.2 0.1 0.2 Neut # (Auto) (2.0 - 7.6 x10 3/uL) 9.86 H 9.47 H 9.01 H Lymph # (Auto) (1.0 - 3.8 x10 3/uL) 1.83 1.14 1 .32 [place] # (Auto) (0.1 - 0.8 x10 3/uL) 0.99 H 0.24 0.26 Eos # (Auto) (0.0 - 0.2 x10 3/uL) 0.00 0.00 0.0 1 Baso # (Auto) (0.0 - 0.2 x10 3/uL) 0.02 0.01 0. 02 Abs Immat Gran (auto) (0.00 - 0.03 x10 3/uL) 0. 19 H 0.15 H 0.13 H Add Manual Diff NO NO NO Immature Gran % (0.0 - 2.0 %) 1.5 1.4 1.2 Nucleated RBC % (0 - 0 %) 0.0 0.0 0.0 Nucleated RBCs # (Man) (0.0 - 0.1 x10 3/uL) 0.0 0 0.00 0.00 Radiology data: Recent Impressions: ULTRASOUND - DUP LE [employer] UNI/LTD 07/22 1939 Report Impression - Status: SIGNED Entered: 07/21/20212020 IMPRESSION: 9 cm soft tissue hematoma in the left groin. Impression By: [email or web address] - Mukesh Call M.D. Diagnosis, Assessment Plan Diagnosis, Assessment Plan Consultants: cardiology, critical/waste machine tender, h ospitalist Plan discussed with: patient, collaborating MD, nurse, interdisc care team, pharmacy/pharmacist Critical care time: Minutes: 40 Free text DxA P: 61 YO female with MHx of sev ere CAD with prior stents, HTN, HLD, DM, CHF who is here for PCI of the RCA. She underwent PCI with MIKHAIL to RCA on . She developed post procedural left groin hematoma and had to a dmitted to CCU for closer monitoring and further management. Apparently th e patient also experienced nonsustained V. tach during the recovery period. 07/22. Patient is awake and oriented x3. No arrry thmias noted, she is NSR 60s. On room air with stable satu ration. Left groin with extensive brusing but soft, warm with palpable pulses. Reports tenderness. Assessment/plan 1. CAD status post PCI of the RCA 2. Left groin hematoma 3. History of hypertension 4. DM2 Continue neurovascular checks per unit protocol We will continue to trend CBCs results and will transfuse if hemoglobin less than 7 or if patient develops S/S of bleeding. R epeat hemoglobin this afternoon. US showed soft tissue hematoma, no ps eudoaneurysm. Cardiology following. On DAPT, statin and beta-b locker. Obtain orthostatic vital signs Diet as tolerated. Glycemic control with ISS Monitor renal indicis. I/0s. Replete electrolytes as needed DVT prophylaxis GI prophylaxis not indicated: Moblize patient has tolerated. Out of bed to barbara ir I spent 35 minutes of critic al care reviewing labs, imaging and discussing plan of care with critical care waste machine tender. at 1543 RPT #:[id number] END OF REPORT 2021-07-22 10:28:00-00:00 [facility]L [facility] ([facility]) History Physical - Adult REPORT#:[id number] REPORT STATUS: Signed DATE:07/22/21 TIME: 1028 PATIENT: TAMY MARTINEZ UNIT #: [id number] ROOM/BED: [place] [address] : 64 AGE: 61 SEX: F ATTEND: Nicolle Robertson MD ADM AUTHOR: Zoraida Felder RECREATION SUPERINTENDENT * ALL edits or amendments must be made on the [employer]/computer document * History of Present Illness HPI Chief complaint: Left groin tenderness PCP: PCP: No Primary or Family Physician HPI: 61 YO female with MHx of sev ere CAD with prior stents, HTN, HLD, DM, CHF who is here for PCI of the RCA. She underwent PCI with MIKHAIL to RCA by Dr. Mcdonald. She developed post procedural left groin hematoma an d had to admitted to CCU for closer monitoring. She also had nonsustained Vta ch during recovery. Currently patient is stable. Left groin hematoma about the same size as yesterday. Hgb preop was 11.7, down to 8.7 this morning. Informant/historian: patient History Past medical history: Reports: Coronary artery disease, Diabetes melli tus, Hypertension, Ischemic stroke. Denies: Atrial fibrillation, Congestive heart failure. Past surgical history: Reports: Cholecystectomy. Additional family history: Non contributory Alcohol use: Denies EtOH use Drug use: Benzodiazepines Smoking status: Smoking status for patients 13 years old or old er: Never Smoker Medication/Allergy-Vaccine Hx Allergies: Coded Allergies: iodine (Intermediate, HIVES 07/21/21) Converted from Ingredient Allergy: IODINE Review of Systems Constitutional: Denies: fatigue. Respiratory: Denies: SOB. Cardiovascular: Denies: chest pain. GI: Denies: abdominal pain, nausea, vomiting. Neuro: Denies: dizziness, syncope. Physical Exam VS/I O Vital Signs: Date Time Temp Pulse Resp B/P B/P Pulse O2 O2 F low FiO2 Mean Ox Delivery Rate 07/22 1230 67 24 99 05/ 1201 66 18 140/60 87 98 05/ 1145 67 19 98 05/ 1130 36.4 Room air 05/ 1130 68 99 05/ 1115 71 92 05/ 1100 69 137/82 103 86 05/ 1045 66 24 98 05/ 1030 65 16 98 05/12 1001 74 130/59 85 99 05/12 0956 64 15 98 05/12 0945 64 98 05/12 0930 66 100 05/12 0915 71 100 05/12 0900 76 147/67 96 98 05/12 0845 63 14 99 05/12 0830 63 16 99 05/12 0828 65 28 100 05/12 0815 63 15 98 05/12 0800 36.2 Room air 05/ 0800 65 17 156/65 94 95 05/12 0745 64 27 99 05/12 0730 63 100 05/12 0715 64 100 05/12 0700 62 18 132/60 87 98 05/12 0601 75 20 114/57 82 100 05/12 0500 57 13 110/53 76 97 05/12 0400 58 13 121/56 81 99 05/ 0357 36.4 05/12 0300 60 18 111/55 77 99 05/12 0200 59 16 121/58 83 97 05/12 0100 60 36 115/58 80 98 05/12 0010 36.5 05/12 0000 59 25 113/55 79 95 05/ 2300 62 23 112/53 77 92 05/ 2200 61 20 105/53 73 95 05/ 2130 36.6 05/ 2100 66 34 107/54 78 98 24 hour I O ending at 0700: 07/22 0700 07/21 1900 Intake Total 561.00 Output Total 800 Balance -239.00 Intake, IV 461.00 Intake, Oral 100 Output, Urine 800 Patient 98.9 kg Weight Weight Bed scale Measurement Method PATIENT WEIGHT: Weight (lb): 218 Weight (oz): 0.59 Weight (kg): 98.900 General appearance: obese, a lert, awake, oriented, no acute distress, pleasant, conversational, mental status normal Neck: full range of motion, non-tender, no JVD Cardiovascular: normal capillary refill, regular rate rhythm, normal heart sounds Respiratory: clear to auscultation, no distress, no tenderness Abdomen/GI: active bowel sounds, soft, non-tende r Extremities: moves all, no edema-all extremities , normal capillary refill, normal range of motion, normal sensory Musculoskeletal: full range of motion, normal in spection, no CVA tenderness 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, oriented X 3, normal gait Skin: pale, dry, left groin access with hematoma a Psychiatry: no hallucinations, normal affect, no rmal judgment/insight, normal mood Results Findings/Data: Laboratory Tests: 07/22 07/22 07/22 07/22 07/22 1104 [id number] Chemistry Sodium (134 - 147 mEq/L) 135 Potassium (3.4 - 5.0 mEq/L) 4.6 Chloride (100 - 108 mEq/L) 106 Carbon Dioxide (21 - 33 mEq/l) 22 Anion Gap (0 - 20) 11 BUN (7 - 18 mg/dL) 24 H Creatinine (0.6 - 1.3 mg/dL) 1.3 Glomerular Filtr Rate (90 - 95) 41.9 L Glucose (70 - 110 mg/dL) 151 H POC Glucose (70 - 110 MG/DL) 148 H 106 118 H 17 0 H Calcium (8.0 - 10.5 mg/dL) 8.6 Magnesium (1.80 - 2.40 mg/dL) 2.54 H Hematology WBC (4.5 - 11.0 x10 3/uL) 12.9 H RBC (3.54 - 5.02 x10 6/uL) 3.07 L Hgb (11.0 - 15.0 g/dL) 8.7 L Hct (33.0 - 45.0 %) 27.7 L MCV (81.0 - 99.0 fL) 90.2 MCH (27.0 - 33.0 pg) 28.3 MCHC (33.0 - 37.0 g/dL) 31.4 L RDW (11.5 - 14.5 %) 16.1 H Plt Count (150 - 400 x10 3/uL) 312 MPV (7.0 - 9.0 fL) 9.7 H Neut % (Auto) (56.0 - 77.0 %) 76.4 Lymph % (Auto) (14.0 - 32.0 %) 14.2 [place] % (Auto) (4.8 - 9.0 %) 7.7 Eos % (Auto) (0.3 - 3.7 %) 0.0 L Baso % (Auto) (0.0 - 2.0 %) 0.2 Neut # (Auto) (2.0 - 7.6 x10 3/uL) 9.86 H Lymph # (Auto) (1.0 - 3.8 x10 3/uL) 1.83 [place] # (Auto) (0.1 - 0.8 x10 3/uL) 0.99 H Eos # (Auto) (0.0 - 0.2 x10 3/uL) 0.00 Baso # (Auto) (0.0 - 0.2 x10 3/uL) 0.02 Abs Immat Gran (auto) (0.00 - 0.03 0.19 H x10 3/uL) Add Manual Diff NO Immature Gran % (0.0 - 2.0 %) 1.5 Nucleated RBC % (0 - 0 %) 0.0 Nucleated RBCs # (Man) (0.0 - 0.1 0.00 x10 3/uL) 07/22 07/22 07/22 07/22 07/21 0300 0156 0101 0003 2256 Chemistry POC Glucose (70 - 110 MG/DL) 219 H 256 H 307 H 333 H 328 H 07/21 193 1912 1805 Chemistry Sodium (134 - 147 mEq/L) 133 L Potassium (3.4 - 5.0 mEq/L) 4.8 Chloride (100 - 108 mEq/L) 103 Carbon Dioxide (21 - 33 mEq/l) 22 Anion Gap (0 - 20) 13 BUN (7 - 18 mg/dL) 30 H Creatinine (0.6 - 1.3 mg/dL) 1.3 Glomerular Filtr Rate (90 - 95) 41.9 L Glucose (70 - 110 mg/dL) 468 *H POC Glucose (70 - 110 MG/DL) 402 H 417 H 427 H Calcium (8.0 - 10.5 mg/dL) 7.8 L Magnesium (1.80 - 2.40 mg/dL) 1.79 L Hematology WBC (4.5 - 11.0 x10 3/uL) 11.0 10.8 RBC (3.54 - 5.02 x10 6/uL) 3.02 L 3.19 L Hgb (11.0 - 15.0 g/dL) 8.8 L 9.4 L Hct (33.0 - 45.0 %) 27.2 L 28.5 L MCV (81.0 - 99.0 fL) 90.1 89.3 MCH (27.0 - 33.0 pg) 29.1 29.5 MCHC (33.0 - 37.0 g/dL) 32.4 L 33.0 RDW (11.5 - 14.5 %) 16.2 H 16.1 H Plt Count (150 - 400 x10 3/uL) 304 315 MPV (7.0 - 9.0 fL) 9.7 H 9.7 H Neut % (Auto) (56.0 - 77.0 %) 85.9 H 83.8 H Lymph % (Auto) (14.0 - 32.0 %) 10.4 L 12.3 L [place] % (Auto) (4.8 - 9.0 %) 2.2 L 2.4 L Eos % (Auto) (0.3 - 3.7 %) 0.0 L 0.1 L Baso % (Auto) (0.0 - 2.0 %) 0.1 0.2 Neut # (Auto) (2.0 - 7.6 x10 3/uL) 9.47 H 9.01 H Lymph # (Auto) (1.0 - 3.8 x10 3/uL) 1.14 1.32 [place] # (Auto) (0.1 - 0.8 x10 3/uL) 0.24 0.26 Eos # (Auto) (0.0 - 0.2 x10 3/uL) 0.00 0.01 Baso # (Auto) (0.0 - 0.2 x10 3/uL) 0.01 0.02 Abs Immat Gran (auto) (0.00 - 0.03 0.15 H 0.13 H x10 3/uL) Add Manual Diff NO NO Immature Gran % (0.0 - 2.0 %) 1.4 1.2 Nucleated RBC % (0 - 0 %) 0.0 0.0 Nucleated RBCs # (Man) (0.0 - 0.1 0.00 0.00 x10 3/uL) 07/21 07/21 07/21 07/21 1559 1527 1400 1356 Chemistry POC Glucose (70 - 110 MG/DL) 363 H 433 H 464 H Coagulation Activated Coag Time (74 - 137 SEC) 255 H Radiology data: Recent Impressions: ULTRASOUND - DUP LE [employer] 07/22 1939 Report Impression - Status: SIGNED Entered: 07/21/20212020 IMPRESSION: 9 cm soft tissue hematoma in the left groin. Impression By: [email or web address] - Mukesh Call M.D. Results: labs reviewed, vital signs reviewed Diagnosis, Assessment Plan Problem List/A P: 1. Coronary artery disease 2. Diabetes mellitus 3. Hypertension Plan discussed with: patient, nurse Free Text DxA P Notes Free Text DxA P Notes: 61 YO female with MHx of sev ere CAD with prior stents, HTN, HLD, DM, CHF who is here for PCI of the RCA. She underwent PCI with MIKHAIL to RCA by Dr. Mcdonald. She developed post procedural left groin hematoma an d had to admitted to CCU for closer monitoring. She also had nonsustained Vta ch during recovery. Currently patient is stable. Left groin hematoma about the same size as yesterday. Hgb preop was 11.7, down to 8.7 this morning. 1. CAD s/p PCI/MIKHAIL to RCA resume DAPT, BB, statin no CP 2. Posprocedural hematoma hgb 11.7->8.7, repeat HH this afternoon US showed soft tissue hematoma, no psedoaneurysm no indication for blood transfusion 3. Hypertension resume losartan, metoprolol, Imdur, and Lasix Monitor BP and adjust meds as needed 4. DMII continue insulin sliding scale patient on insulin regimena at home but NF here Mobilize OOB keep for 1 more night If stable then will DC home tomorrow at 1335 Electronically Signed by Inga Robertson MD on at [address] [facility] #:[id number] END OF REPORT 2021-07-21 15:52:00-00:00 [id number] [address] PATIENT NAME: TAMY MARTINEZ ADMIT DATE: ACCOUNT NO: [id number] ROOM NO: [facility] AGE: 61 REPORT TYPE: OPERATIVE REPORT SEX: F ADMITTING PHYSICIAN:Inga Robertson MD ATTENDING PHYSICIAN:Inga Robertson MD OPERATION DATE: 07/21/2021 PREOPERATIVE DIAGNOSIS: POSTOPERATIVE DIAGNOSIS: PROCEDURES PERFORMED: PCI of mid to the ostium, severe RCA stenosis, used a 3.0 x 38 mm Synergy drug-eluting stent to overlap with a mid RCA stent and then used a 3.5 x 12 mm Megatron drug-eluting stent for th e ostium. INDICATION: Known severe cor onary artery disease, status post intervention that was complicated with a dissection of the RCA, le ft to heal and brought back today to complete the PCI. SURGEON: SWITCHBOX ASSEMBLER: ANESTHESIA: ACCESS: Left femoral artery, 6-Irish closed wit h Perclose. TOTAL SEDATION TIME: 45 minutes. Used fentanyl a nd Versed. COMPLICATIONS: None. BLEEDING: Less than 10 mL. TOTAL CONTRAST USED: 35 to 40 mL. DESCRIPTION OF PROCEDURE: After risks, benefits, and alternatives were explained, the patient agreed to proceed and sig adán informed consent. The patient was brought to the cardiac catheterizati on laboratory, prepped and draped in usual sterile fashion. I accessed the left femoral artery using ultrasound guidance of fluoroscopy and m icropuncture, placed 6-Irish Erie sheath and took 6-Irish JR4 guide into the aort ic root and I engaged the RCA and took standard views, too k a Runthrough through the true lumen, avoiding the dissection plane and placed a wire distally in the RCA. Then, I took a 3.0 x 38 mm Synergy drug-eluting stent overlapped with th e mid RCA stent as an angioplasty was done on this patient about 3 to 4 weeks ago and the lesions were prepped. Stent was deployed successfully, which contained the dissection very well and had LO 3 flow in the vessel and then I took another 3.5 x 12 mm Megatron Synergy drug-eluting stent for the osti um overlapped to the proximal PATIENT NAME: TAMY MARTINEZ ACCOUNT #: [id number] stent and postdilated to high pressure using a 3 .5 x 20 NC balloon. Final angiogram was satisfactory. LO-3 flow. We stephanie truman the guide and the sheath and Perclose was used for closure with good hemo stasis. CONCLUSION: Successful PCI o f the RCA and dissection was completely sealed with LO 3 flow in the vessel and 0% residual stenos is. PLAN: Continue aspirin and Plavix. Follo w up with me in the office in 4 weeks. Dictated By: Dany Mcdonald MD WT: OP:ARELY/CHRISTINA/JULIO C Conf#: [id number]/DID#: [id number] Authenticated by Dany Mcdonald MD On 08/02/2021 11:35:28 AM Electronically Signed by Dany Mcdonald MD on at 1135 PATIENT NAME: TAMY MARTINEZ ACCOUNT #: [id number] 2021-07-19 15:12:00-00:00 [id number] [place] [address] PATIENT NAME: TAMY MARTINEZ ADMIT DATE: ACCOUNT NO: [id number] ROOM NO: AGE: 61 REPORT TYPE: eELECTROCARDIOGRAM REPORT SEX: F ADMITTING PHYSICIAN: ATTENDING PHYSICIAN:Dany Mcdonald MD Order: [id number] Test Reason : PREOP Test Date/Time Stamp: MonJul 19 2021 15:12:45 Blood Pressure : / mmHG Vent. Rate : 071 BPM Atrial Rate : 071 BPM P-R Int : 140 ms QRS Dur : 080 ms QT Int : 400 ms P-R-T Axes : 074 058 079 degree s QTc Int : 434 ms Sinus rhythm with premature atrial complexes Nonspecific ST abnormality Abnormal ECG PRE_OP Confirmed by LINDA FRIAS MD ([id number]) on 2 4:08:53 PM Referred By: Dany Mcdonald Confirmed by:LINDA TERRY MD at 1608 PATIENT NAME: TAMY MARTINEZ ACCOUNT #: [id number] 2021-06-30 10:37:00-00:00 [facility] ([facility]) Hospitalist Discharge Summary REPORT#:[id number] REPORT STATUS: Signed DATE:06/30/21 TIME: 1037 PATIENT: TAMY MARTINEZ UNIT #: [id number] ROOM/BED: [place] [address] : 64 AGE: 61 SEX: F ATTEND: Conrado Zeng MD ADM AUTHOR: Agnes Almeida MD * ALL edits or amendments must be made on the Wooop/computer document * General Information Date of admission: Observation Start Date: Date of admission: 06/23/21 Discharge date: 06/30/21 Admission diagnosis: angina /CAD hypotension -- cardiagenic HTN leucocytosis DM HLD anemia -- due to acute blood loss Discharge diagnosis: angina /CAD hypotension -- cardiagenic HTN leucocytosis DM HLD anemia -- due to acute blood loss Hospital course: angina /CAD hypotension -- cardiagenic HTN leucocytosis DM HLD anemia -- due to acute blood loss angina/CAD C -- PCI cardiology consult continue home med plavix /ASA continue home medication hypotension cardiogenic--impella was inserted resolve BP-- stable leucocytosis no sign of infection monitor cbc DM- sliding scale continue home med HTN-- monitor stable HLD -- continue home med anemia -- due to acute blood loss surgery -- 06/24 1. Exploration of right common femoral artery. 2. Repair of right common femoral artery. 06/25 -- she complaint of neck pain -lidocaine patch -- she had artery repair surgery yesterday -- Hb -9.2--7.8 -- monitor BP and H H 06/26.... Anemia hemoglobin 6.7, s/p 1 unit of bl ood ........ hypomagnesia magnesium replaced ........ complaining of sore shortness of breath but able to maintain saturation above 90% on room air ......... labs in a.m. 06/27.... Hemoglobin improved 7.6 today ........ magnesium replaced ........ vitals stable 06/28- she feel well -- H H-- stable -- continue monitor as cardiology and CV surgeo n 06/29-- she is doing well -- H H -- stable -- home soon ok with cardiology and CV surgeon she feel well . she is stable to discharge home . she will follow up with cardiology and attending in 2 weeks Consultants: cardiology, cardiovascular surgery, critical/waste machine tender, hospitalist Free Text DxA P Notes Free text DxA P notes: angina /CAD hypotension -- cardiagenic HTN leucocytosis DM HLD anemia -- due to acute blood loss angina/CAD LHC -- PCI cardiology consult continue home med plavix /ASA continue home medication hypotension cardiogenic--impella was inserted resolve BP-- stable leucocytosis no sign of infection monitor cbc DM- sliding scale continue home med HTN-- monitor stable HLD -- continue home med anemia -- due to acute blood loss surgery -- 06/24 1. Exploration of right common femoral artery. 2. Repair of right common femoral artery. 06/25 -- she complaint of neck pain -lidocaine patch -- she had artery repair surgery yesterday -- Hb -9.2--7.8 -- monitor BP and H H 06/26.... Anemia hemoglobin 6.7, s/p 1 unit of bl ood ........ hypomagnesia magnesium replaced ........ complaining of sore shortness of breath but able to maintain saturation above 90% on room air ......... labs in a.m. 06/27.... Hemoglobin improved 7.6 today ........ magnesium replaced ........ vitals stable 06/28- she feel well -- H H-- stable -- continue monitor as cardiology and CV surgeo n 06/29-- she is doing well -- H H -- stable -- home soon ok with cardiology and CV surgeon Med Rec Med Rec Discharge meds: Continue taking these medications: GABAPENTIN (NEURONTIN) 600 MG TAB 600 MILLIGRAM ORAL TWICE DAILY. FOLIC ACID (FOLIC ACID) 1 MG TAB 1 MILLIGRAM ORAL DAILY. METOPROLOL SUCC XL (TOPROL XL) 25 MG TAB.SR.24H 12.5 MILLIGRAM ORAL TWICE DAILY. ISOSORBIDE DINITRATE (ISORDIL) 40 MG TAB 60 MILLIGRAM ORAL DAILY. ASPIRIN (ASPIRIN) 81 MG TAB.CHEW 81 MILLIGRAM ORAL DAILY. DULoxetine DR (CYMBALTA) 20 MG CAP.DR 20 MILLIGRAM ORAL DAILY. LOSARTAN (COZAAR) 50 MG TAB 50 MILLIGRAM ORAL DAILY. ATORVASTATIN (LIPITOR) 40 MG TAB 40 MILLIGRAM ORAL BEDTIME. METHOTREXATE (RHEUMATREX) 2.5 MG TAB 2.5 MILLIGRAM ORAL EVERY 7 DAYS. INSULIN ASPART (NovoLOG) 100 UNIT/ML VIAL UNITS SUBCUTANEOUS DIRECTED. Instructions: PER SLIDING SCALE Insulin Degludec (TRESIBA FLEXTOUCH U-100 (3mL)) 100 UNIT/ML PEN.INJCTR 26 UNITS SUBCUTANEOUS DAILY. HYDROcodone/APAP (NORCO 10/325) 10 MG-325 MG TAB 1 TABLET ORAL EVERY 6 HOURS NEEDED. as neede d for PAIN NITROGLYCERIN (NITROSTAT) 0.4 MG TAB.SL 0.4 MILLIGRAM SUBLINGUAL EVERY 5 MINUTES NEE DED. as needed for ANGINA Days = 30 Qty = 100 CLOPIDOGREL (PLAVIX) 75 MG TAB 75 MILLIGRAM ORAL DAILY. Days = 30 Qty = 30 [XELJANZ] (Unknown Strength) Unknown Dose ORAL DAILY. Objective VS/I O Last Documented: Result Date Time Pulse Ox 100 06/30 732 B/P 102/51 06/30 732 B/P Mean 0.0 06/30 732 O2 Delivery Room air 06/30 732 Temp 37.0 06/30 732 Pulse 66 06/30 732 Resp 19 06/30 732 O2 Flow Rate 0 06/26 1200 FiO2 28 06/24 0915 24 hour I O ending at 0700: 06/30 0700 06/29 1900 Intake Total 840 Output Total 400 Balance -400 840 Intake, Oral 840 Number Voids 1 Output, Urine 400 Patient 93.7 kg Weight Weight Standing scale Measurement Method General appearance: alert, awake, oriented, no a cute distress Head/Eyes: atraumatic, normal conjunctiva/sclera , normal eyelids/periorb., normocephalic Neck: full range of motion, non-tender, normal t hyroid, no JVD Cardiovascular: normal heart sounds, regular rat e rhythm Respiratory: aerating well, clear to auscultatio n Abdomen: non-tender, normal bowel sounds, soft, no distention Extremities: moves all, no calf tenderness, no e agata 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, oriented X 3, CNII-XII intact, normal speech, no motor deficits, no sensory deficits Skin: dry, intact, ecchymosis Right groin Results Findings/Data: Laboratory Tests: 06/30 06/30 06/29 06/29 06/29 0716 0315 1955 1601 1141 Chemistry Sodium (134 - 147 mEq/L) 137 Potassium (3.4 - 5.0 mEq/L) 4.3 Chloride (100 - 108 mEq/L) 106 Carbon Dioxide (21 - 33 mEq/l) 24 Anion Gap (0 - 20) 11 BUN (7 - 18 mg/dL) 18 Creatinine (0.6 - 1.3 mg/dL) 1.1 Glomerular Filtr Rate (90 - 95) 50.8 L Glucose (70 - 110 mg/dL) 153 H POC Glucose (70 - 110 MG/DL) 115 H 186 H 161 H 173 H Calcium (8.0 - 10.5 mg/dL) 8.4 Hematology WBC (4.5 - 11.0 x10 3/uL) 7.3 RBC (3.54 - 5.02 x10 6/uL) 2.51 L Hgb (11.0 - 15.0 g/dL) 7.3 L Hct (33.0 - 45.0 %) 23.4 L MCV (81.0 - 99.0 fL) 93.2 MCH (27.0 - 33.0 pg) 29.1 MCHC (33.0 - 37.0 g/dL) 31.2 L RDW (11.5 - 14.5 %) 15.9 H Plt Count (150 - 400 x10 3/uL) 238 MPV (7.0 - 9.0 fL) 9.4 H Neut % (Auto) (56.0 - 77.0 %) 63.2 Lymph % (Auto) (14.0 - 32.0 %) 17.5 [place] % (Auto) (4.8 - 9.0 %) 14.7 H Eos % (Auto) (0.3 - 3.7 %) 3.3 Baso % (Auto) (0.0 - 2.0 %) 0.3 Neut # (Auto) (2.0 - 7.6 x10 3/uL) 4.62 Lymph # (Auto) (1.0 - 3.8 x10 3/uL) 1.28 [place] # (Auto) (0.1 - 0.8 x10 3/uL) 1.07 H Eos # (Auto) (0.0 - 0.2 x10 3/uL) 0.24 H Baso # (Auto) (0.0 - 0.2 x10 3/uL) 0.02 Abs Immat Gran (auto) (0.00 - 0.03 0.07 H x10 3/uL) Add Manual Diff NO Immature Gran % (0.0 - 2.0 %) 1.0 Nucleated RBC % (0 - 0 %) 0.0 Nucleated RBCs # (Man) (0.0 - 0.1 0.00 x10 3/uL) Discharge Instructions PCP Discharge to: Home Health [facility] Care Additional Discharge Routines: Attending Follow- Up, Interface Designer Follow-Up Diet: Cardiac Activity: As Tolerated Follow-up Appointments Attending Physician: Attending Physician: Alejandra Zeng MD Consulting provider 1: Provider 1: Inga Robertson MD Specialty: CardiologyInterventional Quality: Discharge Current Medications Current medication review: Current Medications Sig/Nandini Start time Last Medication Dose Route Stop Time Status Admin Dexamethasone Sodium 0 .STK-MED ONE 06/24 173 DC Phosphate .ROUTE Lidocaine HCl 0 .STK-MED ONE 06/24 173 DC .ROUTE Ondansetron HCl 0 .STK-MED ONE 06/24 173 DC .ROUTE Sevoflurane 0 .STK-MED ONE 06/24 173 DC INH Epinephrine 0 .STK-MED ONE 06/24 1713 DC 06/24 IV 1715 Sodium Bicarbonate 0 .STK-MED ONE 06/24 1713 DC / IV 1715 Thrombin 0 .STK-MED ONE 06/24 1703 DC TOPICAL Sodium Chloride 500 ML .STK-MED ONE 06/24 1650 DC IV Etomidate 0 .STK-MED ONE 06/24 1648 DC IV Heparin Sodium/ 1,000 ML .STK-MED ONE 06/24 164 1 DC 06/24 Sodium Chloride IV 1705 Insulin Human Lispro 0 AC HS 06/24 1630 AC SUBQ 07/24 1629 Methylprednisolone 0 .STK-MED ONE 06/24 1629 D C 06/24 Sodium Succinate IV 1705 Norepinephrine 250 ML .STK-MED ONE 06/24 1626 D C 06/24 Bitartrate IV 1705 Phenylephrine HCl 0 .STK-MED ONE 06/24 1607 DC 06/24 I-CHAVEZ 1705 Fentanyl Citrate 0 .STK-MED ONE 06/24 1533 DC 0 06/24 .ROUTE 1539 Heparin Sodium/ 500 ML .STK-MED ONE 06/24 1533 DC 06/24 Sodium Chloride IV 1539 Lidocaine HCl 0 .STK-MED ONE 06/24 1533 DC 04/ 4 .ROUTE 1539 Midazolam HCl 0 .STK-MED ONE 06/24 1532 DC 04 4 .ROUTE 1539 Dextrose/Water 25 ML ASDIR PRN 06/24 1345 CKD IV 07/24 1344 Dextrose/Water 50 ML ASDIR PRN 06/24 1345 CKD IV 07/24 1344 Glucagon 1 MG ASDIR PRN 06/24 1345 AC IM 07/24 1344 Aspirin 81 MG DAILY 06/24 0900 AC 06/24 PO 07/24 0859 0916 Clopidogrel Bisulfate 75 MG DAILY 06/24 0900 AC 06/24 PO 07/24 0859 1435 Duloxetine HCl 20 MG DAILY 06/24 0900 AC 06/24 PO 07/24 0859 0916 Isosorbide Dinitrate 60 MG DAILY 06/24 0900 DA 06/24 PO 07/24 0859 0917 Losartan Potassium 50 MG DAILY 06/24 0900 AC PO 07/24 0859 0916 Sodium Chloride 500 ML DAILY 06/24 0900 AC MISC 07/24 0859 Magnesium Sulfate 50 ML ONCE ONE 06/24 0830 DC 06/24 IV 06/24 1029 0921 Atorvastatin Calcium 40 MG BEDTIME 06/23 2100 A C 06/23 PO 07/23 Gabapentin 600 MG BID 06/23 2100 AC 06/24 PO 07/23 205 0916 Insulin Glargine 25 UNIT BEDTIME 06/23 2100 AC 06/23 SUBQ 07/23 205 2030 Metoprolol Succinate 12.5 MG BID 06/23 2100 AC 06/24 PO 07/23 205 0917 Mupirocin 1 APPLIC BID 06/23 2100 AC 06/24 NASAL 06/28 0901 0916 Insulin Human Lispro 0 AC HS 06/23 1800 DC 06/11 4 SUBQ 07/23 1749 0916 Dextrose/Water 25 ML ASDIR PRN 06/23 1730 DC IV 07/23 1729 Dextrose/Water 50 ML ASDIR PRN 06/23 1730 DC IV 07/23 1729 Glucagon 1 MG ASDIR PRN 06/23 1730 AC IM 07/23 1729 Heparin Sodium 0 ASDIR PRN 06/23 1730 AC IV 07/23 1729 Heparin Sodium 500 ML ASDIR 06/23 1730 CKD 06/11 4 (Porcine) IV 07/23 1729 0301 Hydrocodone Bitart/ 1 TAB Q6H PRN PRN 06/23 173 0 AC Acetaminophen PO 06/28 1729 Morphine Sulfate 4 MG Q2H PRN PRN 06/23 1730 A C 06/24 IV 06/28 1729 0634 Ondansetron HCl 4 MG Q8H PRN PRN 06/23 1730 AC IV 07/23 1729 Sodium Chloride 1,000 ML .Q10H 06/23 1730 AC IV 07/23 1729 1436 Atropine Sulfate 0.5 MG ASDIR PRN 06/23 1430 DC IV 06/24 1423 Heparin Sodium 12,500 UNIT DAILY PRN PRN 06/23 1430 AC Dextrose/Water 500 ML I-CATHETER 07/23 1429 Heparin Sodium/ 500 ML DAILY PRN PRN 06/23 1430 AC 06/23 Dextrose I-CATHETER 07/23 1429 2302 Sodium Chloride 1,000 ML .[id number] 06/23 1430 DC 06/23 IV 06/24 0349 1755 Sodium Chloride 500 ML ASDIR PRN 06/23 1430 DC IV 06/24 1423 Home Medications: GABAPENTIN (NEURONTIN) 600 MG PO BID FOLIC ACID 1 MG PO DAILY METOPROLOL SUCC XL (TOPROL XL) 12.5 MG PO BID ISOSORBIDE DINITRATE (ISORDIL) 60 MG PO DAILY ASPIRIN 81 MG PO DAILY DULoxetine DR (CYMBALTA) 20 MG PO DAILY LOSARTAN (COZAAR) 50 MG PO DAILY ATORVASTATIN (LIPITOR) 40 MG PO BEDTIME METHOTREXATE (RHEUMATREX) 2.5 MG PO Q7D INSULIN ASPART (NovoLOG) Insulin Degludec (TRESIBA FLEXTOUCH U-100 (3mL)) 26 UNITS SUBQ DAILY HYDROcodone/APAP (NORCO 10/325) 1 TAB PO Q6H PRN PRN PAIN [XELJANZ] (Unknown Dose) PO DAILY NITROGLYCERIN (NITROSTAT) 0.4 MG SL Q5M PRN PRN ANGINA CLOPIDOGREL (PLAVIX) 75 MG PO DAILY Electronically Signed by Agnes Almeida MD on 2 at 1041 RPT #:[id number] END OF REPORT 2021-06-30 08:51:00-00:00 [facility] REPORT#:[id number] REPORT STATUS: Signed DATE:06/30/21 TIME: 08 PATIENT: TAMY MARTINEZ UNIT #: [id number] ROOM/BED: [facility] : 64 AGE: 61 SEX: F ATTEND: Conrado Zeng MD ADM AUTHOR: Zoraida Felder CNP * ALL edits or amendments must be made on the Wooop/Mailcloud document * Subjective Patient reports: No: complaints. Objective General VS/I O: 24 hour I O ending at 0700: 06/30 0700 06/29 1900 Intake Total 840 Output Total 400 Balance -400 840 Intake, Oral 840 Number Voids 1 Output, Urine 400 Patient 93.7 kg Weight Weight Standing scale Measurement Method Vital Signs: Date Time Temp Pulse Resp B/P B/P Pulse O2 O2 F low FiO2 Mean Ox Delivery Rate 06/30 0733 37.0 66 19 102/51 0.0 100 Room air 06/30 426 36.5 73 14 98/62 74.2 98 Room air 06/30 0400 65 16 96 06/30 0015 67 15 96 06/29 2355 36.4 70 18 104/51 0.0 100 Room air 06/30 2007 72 17 98/47 68 99 06/30 2007 36.5 73 18 98/47 0.0 95 Room air 06/30 1999 36.5 72 17 98/47 64 Room air 06/29 1601 36.8 73 16 102/51 0.0 97 Room air 06/29 1142 36.2 62 16 99/54 0.0 96 Room air PATIENT WEIGHT: Weight (lb): 206 Weight (oz): 9.17 Weight (kg): 93.700 Medications: Active Meds + DC'd Last 24 Hrs Hydrocodone Bitart/Acetaminophen (NORCO 10/325) 1 TAB Q6H PRN PRN PO Sterile Water (WATER FOR INJECTION) 5 ML ASDIR P RN IV Potassium Chloride (POTASSIUM CHLORIDE 20MEQ TAB .ER) 40 MEQ DAILY PRN PRN PO Lidocaine (LIDODERM) 1 PATCH DAILY TOPICAL Insulin Human Lispro (HUMALOG) 0 AC HS SUBQ Dextrose/Water (DEXTROSE 50% W SYRINGE) 25 ML DIR PRN IV (CKD) Dextrose/Water (DEXTROSE 50% W SYRINGE) 50 ML DIR PRN IV (CKD) Glucagon (GLUCAGON) 1 MG ASDIR PRN IM Aspirin (ASPIRIN) 81 MG DAILY PO Clopidogrel Bisulfate (Plavix) 75 MG DAILY PO Duloxetine HCl (CYMBALTA) 20 MG DAILY PO Losartan Potassium (COZAAR) 50 MG DAILY PO Sodium Chloride (SODIUM CHLORIDE 0.9%) 500 ML DA ELADIO MISC Atorvastatin Calcium (LIPITOR) 40 MG BEDTIME PO Gabapentin (NEURONTIN) 600 MG BID PO Insulin Glargine (Lantus/Semglee) 25 UNIT BEDTIM E SUBQ Metoprolol Succinate (TOPROL XL) 12.5 MG BID PO Glucagon (GLUCAGON) 1 MG ASDIR PRN IM Ondansetron HCl (ZOFRAN) 4 MG Q8H PRN PRN IV Physical Exam General appearance: alert, awake, oriented, no a cute distress Neck: non-tender, no JVD Cardiovascular: CV assessment: regular rate and rhythm Respiratory: decreased breath sounds, on oxygen, no distress Abdomen: non-tender Genitourinary: no flank pain, no hilliard Lower extremity: LE assessment: no edema Musculoskeletal: normal inspection 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, oriented X 3, normal speech Skin: dry, intact, normal color, normal temperat ure Wound/incision: Location: Rgroin bruise, tender Psychiatry: normal affect, normal judgment/insig ht, normal mood, no hallucinations Results Findings/Data: Laboratory Tests 06/30 06/30 06/29 06/29 06/29 0716 0315 1955 1601 1141 Chemistry Sodium (134 - 147 mEq/L) 137 Potassium (3.4 - 5.0 mEq/L) 4.3 Chloride (100 - 108 mEq/L) 106 Carbon Dioxide (21 - 33 mEq/l) 24 Anion Gap (0 - 20) 11 BUN (7 - 18 mg/dL) 18 Creatinine (0.6 - 1.3 mg/dL) 1.1 Glomerular Filtr Rate (90 - 95) 50.8 L Glucose (70 - 110 mg/dL) 153 H POC Glucose (70 - 110 MG/DL) 115 H 186 H 161 H 173 H Calcium (8.0 - 10.5 mg/dL) 8.4 Laboratory Tests 06/30 0315 Hematology WBC (4.5 - 11.0 x10 3/uL) 7.3 RBC (3.54 - 5.02 x10 6/uL) 2.51 L Hgb (11.0 - 15.0 g/dL) 7.3 L Hct (33.0 - 45.0 %) 23.4 L MCV (81.0 - 99.0 fL) 93.2 MCH (27.0 - 33.0 pg) 29.1 MCHC (33.0 - 37.0 g/dL) 31.2 L RDW (11.5 - 14.5 %) 15.9 H Plt Count (150 - 400 x10 3/uL) 238 MPV (7.0 - 9.0 fL) 9.4 H Neut % (Auto) (56.0 - 77.0 %) 63.2 Lymph % (Auto) (14.0 - 32.0 %) 17.5 [place] % (Auto) (4.8 - 9.0 %) 14.7 H Eos % (Auto) (0.3 - 3.7 %) 3.3 Baso % (Auto) (0.0 - 2.0 %) 0.3 Neut # (Auto) (2.0 - 7.6 x10 3/uL) 4.62 Lymph # (Auto) (1.0 - 3.8 x10 3/uL) 1.28 [place] # (Auto) (0.1 - 0.8 x10 3/uL) 1.07 H Eos # (Auto) (0.0 - 0.2 x10 3/uL) 0.24 H Baso # (Auto) (0.0 - 0.2 x10 3/uL) 0.02 Abs Immat Gran (auto) (0.00 - 0.03 x10 3/uL) 0. 07 H Add Manual Diff NO Immature Gran % (0.0 - 2.0 %) 1.0 Nucleated RBC % (0 - 0 %) 0.0 Nucleated RBCs # (Man) (0.0 - 0.1 x10 3/uL) 0.0 0 Diagnosis, Assessment Plan Plan discussed with: patient, nurse Free Text DxA P Notes Free Text DxA P Notes: 61 YO female with MHx of CAD with prior PCI/MIKHAIL to LAD (05/2021), HTN, DM, CVA, HLD who has been having angina. She was admitted electively on 06/23/21 for staged PCI to right PDA and RCA. The patient had successul PCI of the ostial PDA with MIKHAIL. However, the patient developed dissection of the proximal to mid RCA post balloon angioplasty. Im pella LVAD was inserted for stability. This morning the patient was doing well, awake and alert, no chest pain, and no SOB. Had episode of hypotension which responded to 500 ml IVF challenge. 1. Coronary artery disease 05/12/2021: 3 stents to LAD 06/23/21: PCI/MIKHAIL of ostial PDA RCA dissection s/p Impella LVAD support - dc'd on 06/24 continue DAPT, BB, statin 2. Hypertension - normotensive hypotension resolved continue BB, resume losartan 3. Diabetes mellitus continue lantus and insulin sliding scale 4. Hyperlipidemia continue statin 5. RCFA bleeding during Impella removal s/p repa ir R groin bruise hgb 7.8->7.3->6.7->7.6->7.9->8.2->8.6 s/p 1 unit 06/26 R groin US no hematoma no pseudoaneurysm 6. Fluid overload - resolved s/p IV diuresis PT/OT mobilize OOB Stable CV Status. From cardiac standpoint patien t is ok to DC home. Defer discharge disposition to primary. Outpatient fol low-up with Dr. Mcdonald at 1102 RPT #:[id number] END OF REPORT 2021-06-30 08:51:00-00:00 HCACL [facility] ([facility]) Cardiology Progress Note REPORT#:[id number] REPORT STATUS: Signed DATE:06/30/21 TIME: 08 PATIENT: TAMY MARTINEZ UNIT #: [id number] ROOM/BED: [place] [address] : 64 AGE: 61 SEX: F ATTEND: Conrado Zeng MD ADM AUTHOR: Zoraida Felder CNP * ALL edits or amendments must be made on the Woo[employer]/computer document * Subjective Patient reports: No: complaints. Objective General VS/I O: 24 hour I O ending at 0700: 06/30 0700 06/29 1900 Intake Total 840 Output Total 400 Balance -400 840 Intake, Oral 840 Number Voids 1 Output, Urine 400 Patient 93.7 kg Weight Weight Standing scale Measurement Method Vital Signs: Date Time Temp Pulse Resp B/P B/P Pulse O2 O2 F low FiO2 Mean Ox Delivery Rate 06/30 0733 37.0 66 19 102/51 0.0 100 Room air 06/30 0427 36.5 73 14 98/62 74.2 98 Room air 06/30 0400 65 16 96 06/30 0015 67 15 96 06/29 2355 36.4 70 18 104/51 0.0 100 Room air 06/30 2007 72 17 98/47 68 99 06/30 2007 36.5 73 18 98/47 0.0 95 Room air 06/29 2000 36.5 72 17 98/47 64 Room air 06/29 1601 36.8 73 16 102/51 0.0 97 Room air 06/29 1142 36.2 62 16 99/54 0.0 96 Room air PATIENT WEIGHT: Weight (lb): 206 Weight (oz): 9.17 Weight (kg): 93.700 Medications: Active Meds + DC'd Last 24 Hrs Hydrocodone Bitart/Acetaminophen (NORCO 10/325) 1 TAB Q6H PRN PRN PO Sterile Water (WATER FOR INJECTION) 5 ML ASDIR P RN IV Potassium Chloride (POTASSIUM CHLORIDE 20MEQ TAB .ER) 40 MEQ DAILY PRN PRN PO Lidocaine (LIDODERM) 1 PATCH DAILY TOPICAL Insulin Human Lispro (HUMALOG) 0 AC HS SUBQ Dextrose/Water (DEXTROSE 50% W SYRINGE) 25 ML DIR PRN IV (CKD) Dextrose/Water (DEXTROSE 50% W SYRINGE) 50 ML DIR PRN IV (CKD) Glucagon (GLUCAGON) 1 MG ASDIR PRN IM Aspirin (ASPIRIN) 81 MG DAILY PO Clopidogrel Bisulfate (Plavix) 75 MG DAILY PO Duloxetine HCl (CYMBALTA) 20 MG DAILY PO Losartan Potassium (COZAAR) 50 MG DAILY PO Sodium Chloride (SODIUM CHLORIDE 0.9%) 500 ML DA ELADIO MISC Atorvastatin Calcium (LIPITOR) 40 MG BEDTIME PO Gabapentin (NEURONTIN) 600 MG BID PO Insulin Glargine (Lantus/Semglee) 25 UNIT BEDTIM E SUBQ Metoprolol Succinate (TOPROL XL) 12.5 MG BID PO Glucagon (GLUCAGON) 1 MG ASDIR PRN IM Ondansetron HCl (ZOFRAN) 4 MG Q8H PRN PRN IV Physical Exam General appearance: alert, awake, oriented, no a cute distress Neck: non-tender, no JVD Cardiovascular: CV assessment: regular rate and rhythm Respiratory: decreased breath sounds, on oxygen, no distress Abdomen: non-tender Genitourinary: no flank pain, no hilliard Lower extremity: LE assessment: no edema Musculoskeletal: normal inspection 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, oriented X 3, normal speech Skin: dry, intact, normal color, normal temperat ure Wound/incision: Location: Rgroin bruise, tender Psychiatry: normal affect, normal judgment/insig ht, normal mood, no hallucinations Results Findings/Data: Laboratory Tests 06/30 06/30 06/29 06/29 06/29 0716 0315 1955 1601 1141 Chemistry Sodium (134 - 147 mEq/L) 137 Potassium (3.4 - 5.0 mEq/L) 4.3 Chloride (100 - 108 mEq/L) 106 Carbon Dioxide (21 - 33 mEq/l) 24 Anion Gap (0 - 20) 11 BUN (7 - 18 mg/dL) 18 Creatinine (0.6 - 1.3 mg/dL) 1.1 Glomerular Filtr Rate (90 - 95) 50.8 L Glucose (70 - 110 mg/dL) 153 H POC Glucose (70 - 110 MG/DL) 115 H 186 H 161 H 173 H Calcium (8.0 - 10.5 mg/dL) 8.4 Laboratory Tests 06/30 0315 Hematology WBC (4.5 - 11.0 x10 3/uL) 7.3 RBC (3.54 - 5.02 x10 6/uL) 2.51 L Hgb (11.0 - 15.0 g/dL) 7.3 L Hct (33.0 - 45.0 %) 23.4 L MCV (81.0 - 99.0 fL) 93.2 MCH (27.0 - 33.0 pg) 29.1 MCHC (33.0 - 37.0 g/dL) 31.2 L RDW (11.5 - 14.5 %) 15.9 H Plt Count (150 - 400 x10 3/uL) 238 MPV (7.0 - 9.0 fL) 9.4 H Neut % (Auto) (56.0 - 77.0 %) 63.2 Lymph % (Auto) (14.0 - 32.0 %) 17.5 [place] % (Auto) (4.8 - 9.0 %) 14.7 H Eos % (Auto) (0.3 - 3.7 %) 3.3 Baso % (Auto) (0.0 - 2.0 %) 0.3 Neut # (Auto) (2.0 - 7.6 x10 3/uL) 4.62 Lymph # (Auto) (1.0 - 3.8 x10 3/uL) 1.28 [place] # (Auto) (0.1 - 0.8 x10 3/uL) 1.07 H Eos # (Auto) (0.0 - 0.2 x10 3/uL) 0.24 H Baso # (Auto) (0.0 - 0.2 x10 3/uL) 0.02 Abs Immat Gran (auto) (0.00 - 0.03 x10 3/uL) 0. 07 H Add Manual Diff NO Immature Gran % (0.0 - 2.0 %) 1.0 Nucleated RBC % (0 - 0 %) 0.0 Nucleated RBCs # (Man) (0.0 - 0.1 x10 3/uL) 0. 00 Diagnosis, Assessment Plan Plan discussed with: patient, nurse Free Text DxA P Notes Free Text DxA P Notes: 61 YO female with MHx of CAD with prior PCI/MIKHAIL to LAD (05/2021), HTN, DM, CVA, HLD who has been having angina. She was admitted electively on 06/23/21 for staged PCI to right PDA and RCA. The patient had successul PCI of the ostial PDA with MIKHAIL. However, the patient developed dissection of the proximal to mid RCA post balloon angioplasty. Im pella LVAD was inserted for stability. This morning the patient was doing well, awake and alert, no chest pain, and no SOB. Had episode of hypotension which responded to 500 ml IVF challenge. 1. Coronary artery disease 05/12/2021: 3 stents to LAD 06/23/21: PCI/MIKHAIL of ostial PDA RCA dissection s/p Impella LVAD support - dc'd on 06/24 continue DAPT, BB, statin 2. Hypertension - normotensive hypotension resolved continue BB, resume losartan 3. Diabetes mellitus continue lantus and insulin sliding scale 4. Hyperlipidemia continue statin 5. RCFA bleeding during Impella removal s/p repa ir R groin bruise hgb 7.8->7.3->6.7->7.6->7.9->8.2->8.6 s/p 1 unit 06/26 R groin US no hematoma no pseudoaneurysm 6. Fluid overload - resolved s/p IV diuresis PT/OT mobilize OOB Stable CV Status. From cardiac standpoint patien t is ok to DC home. Defer discharge disposition to primary. Outpatient fol low-up with Dr. Mcdonald at 1102 Electronically Signed by Inga Robertson MD on at 2150 RPT #:[id number] END OF REPORT 2021-06-29 13:22:00-00:00 [facility]ACL [facility] ([facility] Hospitalist Progress Note REPORT#:[id number] REPORT STATUS: Signed DATE:06/29/21 TIME: 1322 PATIENT: TAMY MARTINEZ UNIT #: [id number] ROOM/BED: 3349-1 : 64 AGE: 61 SEX: F ATTEND: Conrado Zeng MD ADM AUTHOR: Agnes Almeida MD * ALL edits or amendments must be made on the [employer]/computer document * Subjective Chief complaint: she is doing well . she ambulate Review of Systems Constitutional: Denies: fatigue, fever, generalized weakness, le thargy. Respiratory: Denies: productive cough (sputum), SOB, wheezing . Cardiovascular: Denies: chest pain, ELLIS (dyspnea on exertion), e agata, orthopnea. GI: Denies: abdominal pain, nausea, vomiting. Objective General VS/I O: Vital Signs: Date Time Temp Pulse Resp B/P B/P Pulse O2 O2 Flow FiO2 Mean Ox Delivery Rate 06/29 1142 36.2 62 16 99/54 0.0 96 Room air 06/29 0726 36.7 69 16 117/78 90.6 99 Room air 06/29 0457 36.4 69 18 135/74 94.5 100 Room air 06/28 2347 36.7 72 18 111/53 0.0 99 Room air 06/28 2014 36.9 71 20 144/61 0.0 99 Room air 06/28 2001 70 20 125/57 82 06/28 1930 69 28 06/28 1900 73 19 06/28 1550 68 06/28 1500 68 16 96 06/28 1400 72 18 100 24 hour I O ending at 0700: 06/29 0700 06/28 1900 Intake Total 120 1024 Output Total 500 1000 Balance -380 24 Intake, Oral 120 1024 Output, Urine 500 1000 Patient 93.4 kg Weight Weight Standing scale Measurement Method PATIENT WEIGHT: Weight (lb): 205 Weight (oz): 14.59 Weight (kg): 93.400 Medications: Active Meds + DC'd Last 24 Hrs Magnesium Oxide (MAG-OX 400) 800 MG ONCE ONE PO (DC) Hydrocodone Bitart/Acetaminophen (NORCO 10/325) 1 TAB Q6H PRN PRN PO Sterile Water (WATER FOR INJECTION) 5 ML ASDIR P RN IV Potassium Chloride (POTASSIUM CHLORIDE 20MEQ TAB .ER) 40 MEQ DAILY PRN PRN PO Lidocaine (LIDODERM) 1 PATCH DAILY TOPICAL Furosemide (LASIX 20MG INJ) 20 MG BLOOD-DOSE BET WEEN IV (DC) Insulin Human Lispro (HUMALOG) 0 AC HS SUBQ Dextrose/Water (DEXTROSE 50% W SYRINGE) 25 ML DIR PRN IV (CKD) Dextrose/Water (DEXTROSE 50% W SYRINGE) 50 ML DIR PRN IV (CKD) Glucagon (GLUCAGON) 1 MG ASDIR PRN IM Aspirin (ASPIRIN) 81 MG DAILY PO Clopidogrel Bisulfate (Plavix) 75 MG DAILY PO Duloxetine HCl (CYMBALTA) 20 MG DAILY PO Losartan Potassium (COZAAR) 50 MG DAILY PO Sodium Chloride (SODIUM CHLORIDE 0.9%) 500 ML DA ELADIO MISC Atorvastatin Calcium (LIPITOR) 40 MG BEDTIME PO Gabapentin (NEURONTIN) 600 MG BID PO Insulin Glargine (Lantus/Semglee) 25 UNIT BEDTIM E SUBQ Metoprolol Succinate (TOPROL XL) 12.5 MG BID PO Glucagon (GLUCAGON) 1 MG ASDIR PRN IM Hydrocodone Bitart/Acetaminophen (NORCO 10/325) 1 TAB Q6H PRN PRN PO (DC ) Morphine Sulfate (morphine SULFATE) 4 MG Q2H IN N PRN IV (DC) Ondansetron HCl (ZOFRAN) 4 MG Q8H PRN PRN IV Physical Exam General appearance: alert, awake, oriented, no a cute distress Head/Eyes: atraumatic, normal conjunctiva/sclera , normal eyelids/periorb., normocephalic Neck: full range of motion, non-tender, normal t hyroid, no JVD Cardiovascular: normal heart sounds, regular rat e rhythm Respiratory: aerating well, clear to auscultatio n Abdomen: non-tender, normal bowel sounds, soft, no distention Extremities: moves all, no calf tenderness, no e agata 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, oriented X 3, CNII-XII intact, normal speech, no motor deficits, no sensory deficits Skin: dry, intact, ecchymosis Right groin Results Findings/Data: Laboratory Tests 06/29 06/29 06/29 06/28 06/28 1141 0731 0430 2031 1623 Chemistry Sodium (134 - 147 mEq/L) 136 Potassium (3.4 - 5.0 mEq/L) 4.2 Chloride (100 - 108 mEq/L) 104 Carbon Dioxide (21 - 33 mEq/l) 24 Anion Gap (0 - 20) 12 BUN (7 - 18 mg/dL) 12 Creatinine (0.6 - 1.3 mg/dL) 1.1 Glomerular Filtr Rate (90 - 95) 50.8 L Glucose (70 - 110 mg/dL) 119 H POC Glucose (70 - 110 MG/DL) 173 H 117 H 152 H 180 H Calcium (8.0 - 10.5 mg/dL) 8.9 Magnesium (1.80 - 2.40 mg/dL) 1.79 L Laboratory Tests 06/29 0430 Hematology WBC (4.5 - 11.0 x10 3/uL) 8.7 RBC (3.54 - 5.02 x10 6/uL) 2.91 L Hgb (11.0 - 15.0 g/dL) 8.6 L Hct (33.0 - 45.0 %) 27.8 L MCV (81.0 - 99.0 fL) 95.5 MCH (27.0 - 33.0 pg) 29.6 MCHC (33.0 - 37.0 g/dL) 30.9 L RDW (11.5 - 14.5 %) 15.9 H Plt Count (150 - 400 x10 3/uL) 228 MPV (7.0 - 9.0 fL) 9.8 H Neut % (Auto) (56.0 - 77.0 %) 65.9 Lymph % (Auto) (14.0 - 32.0 %) 16.1 [place] % (Auto) (4.8 - 9.0 %) 13.3 H Eos % (Auto) (0.3 - 3.7 %) 3.6 Baso % (Auto) (0.0 - 2.0 %) 0.3 Neut # (Auto) (2.0 - 7.6 x10 3/uL) 5.72 Lymph # (Auto) (1.0 - 3.8 x10 3/uL) 1.40 [place] # (Auto) (0.1 - 0.8 x10 3/uL) 1.16 H Eos # (Auto) (0.0 - 0.2 x10 3/uL) 0.31 H Baso # (Auto) (0.0 - 0.2 x10 3/uL) 0.03 Abs Immat Gran (auto) (0.00 - 0.03 x10 3/uL) 0. 07 H Add Manual Diff NO Immature Gran % (0.0 - 2.0 %) 0.8 Nucleated RBC % (0 - 0 %) 0.0 Nucleated RBCs # (Man) (0.0 - 0.1 x10 3/uL) 0.0 0 Diagnosis, Assessment Plan Consultants: cardiology, cardiovascular surgery, critical/waste machine tender, hospitalist Free Text DxA P Notes Free text DxA P notes: angina /CAD hypotension -- cardiagenic HTN leucocytosis DM HLD anemia -- due to acute blood loss angina/CAD LHC -- PCI cardiology consult continue home med plavix /ASA continue home medication hypotension cardiogenic--impella was inserted resolve BP-- stable leucocytosis no sign of infection monitor cbc DM- sliding scale continue home med HTN-- monitor stable HLD -- continue home med anemia -- due to acute blood loss surgery -- 06/24 1. Exploration of right common femoral artery. 2. Repair of right common femoral artery. 06/25 -- she complaint of neck pain -lidocaine patch -- she had artery repair surgery yesterday -- Hb -9.2--7.8 -- monitor BP and H H 06/26.... Anemia hemoglobin 6.7, s/p 1 unit of bl ood ........ hypomagnesia magnesium replaced ........ complaining of sore shortness of breath but able to maintain saturation above 90% on room air ......... labs in a.m. 06/27.... Hemoglobin improved 7.6 today ........ magnesium replaced ........ vitals stable 06/28- she feel well -- H H-- stable -- continue monitor as cardiology and CV surgeo n 06/29-- she is doing well -- H H -- stable -- home soon ok with cardiology and CV surgeon Quality: Gen Med Crit Care Current Medications Current medication review: Current Medications Sig/Nandini Start time Last Medication Dose Route Stop Time Status Admin Dexamethasone Sodium 0 .STK-MED ONE 06/25 1731 DC Phosphate .ROUTE Lidocaine HCl 0 .STK-MED ONE 06/25 1731 DC .ROUTE Ondansetron HCl 0 .STK-MED ONE 04/14 1732 DC .ROUTE Sevoflurane 0 .STK-MED ONE 06/24 1732 DC INH Epinephrine 0 .STK-MED ONE 06/24 1713 DC 06/24 IV 1715 Sodium Bicarbonate 0 .STK-MED ONE 06/24 1713 DC 06/24 IV 1715 Thrombin 0 .STK-MED ONE 06/24 1703 DC TOPICAL Sodium Chloride 500 ML .STK-MED ONE 06/24 1650 DC IV Etomidate 0 .STK-MED ONE 06/24 1648 DC IV Heparin Sodium/ 1,000 ML .STK-MED ONE 06/24 164 1 DC 06/24 Sodium Chloride IV 1705 Insulin Human Lispro 0 AC HS 06/24 1630 AC SUBQ 07/24 1629 Methylprednisolone 0 .STK-MED ONE 06/24 1629 DC 06/24 Sodium Succinate IV 1705 Norepinephrine 250 ML .STK-MED ONE 06/24 1626 D C 06/24 Bitartrate IV 1705 Phenylephrine HCl 0 .STK-MED ONE 06/24 1607 DC 06/24 I-CHAVEZ 1705 Fentanyl Citrate 0 .STK-MED ONE 06/24 1533 DC 0 06/24 .ROUTE 1539 Heparin Sodium/ 500 ML .STK-MED ONE 06/24 1533 DC 06/24 Sodium Chloride IV 1539 Lidocaine HCl 0 .STK-MED ONE 06/24 1533 DC .ROUTE 1539 Midazolam HCl 0 .STK-MED ONE 06/24 1532 DC 06/11 4 .ROUTE 1539 Dextrose/Water 25 ML ASDIR PRN 06/24 1345 CKD IV 07/24 1344 Dextrose/Water 50 ML ASDIR PRN 06/24 1345 CKD IV 07/24 1344 Glucagon 1 MG ASDIR PRN 06/24 1345 AC IM 07/24 1344 Aspirin 81 MG DAILY 06/24 0900 AC 06/24 PO 07/24 0859 0916 Clopidogrel Bisulfate 75 MG DAILY 06/24 0900 AC 06/24 PO 07/24 0859 1435 Duloxetine HCl 20 MG DAILY 06/24 0900 AC 06/24 PO 07/24 0859 0916 Isosorbide Dinitrate 60 MG DAILY 06/24 0900 DA 06/24 PO 07/24 0859 0917 Losartan Potassium 50 MG DAILY 06/24 0900 AC PO 07/24 0859 0916 Sodium Chloride 500 ML DAILY 06/24 0900 AC MISC 07/24 0859 Magnesium Sulfate 50 ML ONCE ONE 06/24 0830 DC 06/24 IV 06/24 1029 0921 Atorvastatin Calcium 40 MG BEDTIME 06/23 2100 A C 06/23 PO 07/23 2058 203 Gabapentin 600 MG BID 06/23 2100 AC 06/24 PO 07/23 2058 0916 Insulin Glargine 25 UNIT BEDTIME 06/23 2100 AC 06/23 SUBQ 07/23 2058 2030 Metoprolol Succinate 12.5 MG BID 06/23 2100 AC 06/24 PO 07/23 2058 0917 Mupirocin 1 APPLIC BID 06/23 2100 AC 06/24 NASAL 06/28 0901 0916 Insulin Human Lispro 0 AC HS 06/23 1800 DC 06/11 4 SUBQ 07/23 1749 0916 Dextrose/Water 25 ML ASDIR PRN 06/23 1730 DC IV 07/23 1729 Dextrose/Water 50 ML ASDIR PRN 06/23 1730 DC IV 07/23 1729 Glucagon 1 MG ASDIR PRN 06/23 1730 AC IM 07/23 1729 Heparin Sodium 0 ASDIR PRN 06/23 1730 AC IV 07/23 1729 Heparin Sodium 500 ML ASDIR 06/23 1730 CKD 06/11 4 (Porcine) IV 07/23 1729 0301 Hydrocodone Bitart/ 1 TAB Q6H PRN PRN 06/23 173 0 AC Acetaminophen PO 06/28 1729 Morphine Sulfate 4 MG Q2H PRN PRN 06/23 1730 AC 06/24 IV 06/28 1729 0634 Ondansetron HCl 4 MG Q8H PRN PRN 06/23 1730 AC IV 07/23 1729 Sodium Chloride 1,000 ML .Q10H 06/23 1730 AC IV 07/23 1729 1436 Atropine Sulfate 0.5 MG ASDIR PRN 06/23 1430 DC IV 06/24 1423 Heparin Sodium 12,500 UNIT DAILY PRN PRN 06/23 1430 AC Dextrose/Water 500 ML I-CATHETER 07/23 1429 Heparin Sodium/ 500 ML DAILY PRN PRN 06/23 1430 AC 06/23 Dextrose I-CATHETER 07/23 1429 2302 Sodium Chloride 1,000 ML .[id number] 06/23 1430 DC 06/23 IV 06/24 0349 1755 Sodium Chloride 500 ML ASDIR PRN 06/23 1430 DC IV 06/24 1423 Home Medications: GABAPENTIN (NEURONTIN) 600 MG PO BID FOLIC ACID 1 MG PO DAILY METOPROLOL SUCC XL (TOPROL XL) 12.5 MG PO BID ISOSORBIDE DINITRATE (ISORDIL) 60 MG PO DAILY ASPIRIN 81 MG PO DAILY DULoxetine DR (CYMBALTA) 20 MG PO DAILY LOSARTAN (COZAAR) 50 MG PO DAILY ATORVASTATIN (LIPITOR) 40 MG PO BEDTIME METHOTREXATE (RHEUMATREX) 2.5 MG PO Q7D INSULIN ASPART (NovoLOG) Insulin Degludec (TRESIBA FLEXTOUCH U-100 (3mL)) 26 UNITS SUBQ DAILY HYDROcodone/APAP (NORCO 10/325) 1 TAB PO Q6H PRN PRN PAIN [XELJANZ] (Unknown Dose) PO DAILY NITROGLYCERIN (NITROSTAT) 0.4 MG SL Q5M PRN PRN ANGINA CLOPIDOGREL (PLAVIX) 75 MG PO DAILY Electronically Signed by Agnes Almeida MD on 2 at 1324 RPT #:[id number] END OF REPORT 2021-06-29 08:40:00-00:00 HCACL [facility] Cardiology Progress Note REPORT#:[id number] REPORT STATUS: Signed DATE:06/29/21 TIME: 0840 PATIENT: TAMY MARTINEZ UNIT #: [id number] ROOM/BED: [place] [address] : 62 AGE: 61 SEX: F ATTEND: Conrado Zeng MD ADM AUTHOR: Zoraida Felder RECREATION SUPERINTENDENT * ALL edits or amendments must be made on the [employer]/computer document * Subjective Patient reports: No: complaints. Objective General VS/I O: 24 hour I O ending at 0700: 06/29 0700 06/28 1900 Intake Total 120 1024 Output Total 500 1000 Balance -380 24 Intake, Oral 120 1024 Output, Urine 500 1000 Patient 93.4 kg Weight Weight Standing scale Measurement Method Vital Signs: Date Time Temp Pulse Resp B/P B/P Pulse O2 O2 F low FiO2 Mean Ox Delivery Rate 04/19 0726 36.7 69 16 117/78 90.6 99 Room air 06/29 0457 36.4 69 18 135/74 94.5 100 Room air 06/28 2347 36.7 72 18 111/53 0.0 99 Room air 06/28 2014 36.9 71 20 144/61 0.0 99 Room air 06/28 2001 70 20 125/57 82 06/28 1930 69 28 06/28 1900 73 19 06/28 1550 68 06/28 1500 68 16 96 06/28 1400 72 18 100 06/28 1300 75 22 100 06/28 1210 36.8 69 19 124/58 80 98 Room air 06/28 1200 69 19 98 06/28 1102 73 20 124/58 83 06/28 1000 72 19 06/28 0850 72 35 145/63 90 99 PATIENT WEIGHT: Weight (lb): 205 Weight (oz): 14.59 Weight (kg): 93.400 Medications: Active Meds + DC'd Last 24 Hrs Hydrocodone Bitart/Acetaminophen (NORCO 10/325) 1 TAB Q6H PRN PRN PO Sterile Water (WATER FOR INJECTION) 5 ML ASDIR P RN IV Potassium Chloride (POTASSIUM CHLORIDE 20MEQ TAB .ER) 40 MEQ DAILY PRN PRN PO Lidocaine (LIDODERM) 1 PATCH DAILY TOPICAL Furosemide (LASIX 20MG INJ) 20 MG BLOOD-DOSE BET WEEN IV (DC) Insulin Human Lispro (HUMALOG) 0 AC HS SUBQ Dextrose/Water (DEXTROSE 50% W SYRINGE) 25 ML DIR PRN IV (CKD) Dextrose/Water (DEXTROSE 50% W SYRINGE) 50 ML DIR PRN IV (CKD) Glucagon (GLUCAGON) 1 MG ASDIR PRN IM Aspirin (ASPIRIN) 81 MG DAILY PO Clopidogrel Bisulfate (Plavix) 75 MG DAILY PO Duloxetine HCl (CYMBALTA) 20 MG DAILY PO Losartan Potassium (COZAAR) 50 MG DAILY PO Sodium Chloride (SODIUM CHLORIDE 0.9%) 500 ML DA ELADIO MISC Atorvastatin Calcium (LIPITOR) 40 MG BEDTIME PO Gabapentin (NEURONTIN) 600 MG BID PO Insulin Glargine (Lantus/Semglee) 25 UNIT BEDTIM E SUBQ Metoprolol Succinate (TOPROL XL) 12.5 MG BID PO Mupirocin (BACTROBAN 2% 22 GM OINTMENT) 1 APPLIC BID NASAL (DC) Glucagon (GLUCAGON) 1 MG ASDIR PRN IM Hydrocodone Bitart/Acetaminophen (NORCO 10/325) 1 TAB Q6H PRN PRN PO (DC ) Morphine Sulfate (morphine SULFATE) 4 MG Q2H PRN PRN IV (DC) Ondansetron HCl (ZOFRAN) 4 MG Q8H PRN PRN IV Physical Exam General appearance: alert, awake, oriented, no a cute distress Neck: non-tender, no JVD Cardiovascular: CV assessment: regular rate and rhythm Respiratory: decreased breath sounds, on oxygen, no distress Abdomen: non-tender Genitourinary: no flank pain, no hilliard Lower extremity: LE assessment: no edema Musculoskeletal: normal inspection 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, oriented X 3, normal speech Skin: dry, intact, normal color, normal temperat ure Wound/incision: Location: Rgroin bruise, tender Psychiatry: normal affect, normal judgment/insig ht, normal mood, no hallucinations Results Findings/Data: Laboratory Tests 06/29 06/29 06/28 06/28 06/28 0731 0430 2031 1623 1118 Chemistry Sodium (134 - 147 mEq/L) 136 Potassium (3.4 - 5.0 mEq/L) 4.2 Chloride (100 - 108 mEq/L) 104 Carbon Dioxide (21 - 33 mEq/l) 24 Anion Gap (0 - 20) 12 BUN (7 - 18 mg/dL) 12 Creatinine (0.6 - 1.3 mg/dL) 1.1 Glomerular Filtr Rate (90 - 95) 50.8 L Glucose (70 - 110 mg/dL) 119 H POC Glucose (70 - 110 MG/DL) 117 H 152 H 180 H 157 H Calcium (8.0 - 10.5 mg/dL) 8.9 Magnesium (1.80 - 2.40 mg/dL) 1.79 L Laboratory Tests 06/29 0430 Hematology WBC (4.5 - 11.0 x10 3/uL) 8.7 RBC (3.54 - 5.02 x10 6/uL) 2.91 L Hgb (11.0 - 15.0 g/dL) 8.6 L Hct (33.0 - 45.0 %) 27.8 L MCV (81.0 - 99.0 fL) 95.5 MCH (27.0 - 33.0 pg) 29.6 MCHC (33.0 - 37.0 g/dL) 30.9 L RDW (11.5 - 14.5 %) 15.9 H Plt Count (150 - 400 x10 3/uL) 228 MPV (7.0 - 9.0 fL) 9.8 H Neut % (Auto) (56.0 - 77.0 %) 65.9 Lymph % (Auto) (14.0 - 32.0 %) 16.1 [place] % (Auto) (4.8 - 9.0 %) 13.3 H Eos % (Auto) (0.3 - 3.7 %) 3.6 Baso % (Auto) (0.0 - 2.0 %) 0.3 Neut # (Auto) (2.0 - 7.6 x10 3/uL) 5.72 Lymph # (Auto) (1.0 - 3.8 x10 3/uL) 1.40 [place] # (Auto) (0.1 - 0.8 x10 3/uL) 1.16 H Eos # (Auto) (0.0 - 0.2 x10 3/uL) 0.31 H Baso # (Auto) (0.0 - 0.2 x10 3/uL) 0.03 Abs Immat Gran (auto) (0.00 - 0.03 x10 3/uL) 0. 07 H Add Manual Diff NO Immature Gran % (0.0 - 2.0 %) 0.8 Nucleated RBC % (0 - 0 %) 0.0 Nucleated RBCs # (Man) (0.0 - 0.1 x10 3/uL) 0.0 0 Laboratory Tests 06/29 0430 Chemistry Magnesium (1.80 - 2.40 mg/dL) 1.79 L Telemetry Interpretation: sinus Diagnosis, Assessment Plan Plan discussed with: patient Free Text DxA P Notes Free Text DxA P Notes: 61 YO female with MHx of CAD with prior PCI/MIKHAIL to LAD (05/2021), HTN, DM, CVA, HLD who has been having angina. She was admitted electively on 06/23/21 for staged PCI to right PDA and RCA. The patient had successul PCI of the ostial PDA with MIKHAIL. However, the patient developed dissection of the proximal to mid RCA post balloon angioplasty. Im pella LVAD was inserted for stability. This morning the patient was doing well, awake and alert, no chest pain, and no SOB. Had episode of hypotension which responded to 500 ml IVF challenge. 1. Coronary artery disease 05/12/2021: 3 stents to LAD 06/23/21: PCI/MIKHAIL of ostial PDA RCA dissection s/p Impella LVAD support - dc'd on 06/24 continue DAPT, BB, statin 2. Hypertension - normotensive hypotension resolved continue BB, resume losartan 3. Diabetes mellitus continue lantus and insulin sliding scale 4. Hyperlipidemia continue statin 5. RCFA bleeding during Impella removal s/p repa ir R groin bruise hgb 7.8->7.3->6.7->7.6->7.9->8.2->8.6 s/p 1 unit 06/26 R groin US no hematoma no pseudoaneurysm 6. Fluid overload - resolved s/p IV diuresis PT/OT mobilize OOB Stable CV Status. From cardiac standpoint patien t is ok to DC home. Defer discharge disposition to primary at 1117 RPT #:[id number] END OF REPORT 2021-06-29 08:40:00-00:00 [facility] Cardiology Progress Note REPORT#:[id number] REPORT STATUS: Signed DATE:06/29/21 TIME: 0840 PATIENT: TAMY MARTINEZ UNIT #: [id number] ROOM/BED: [place] [address] : 64 AGE: 61 SEX: F ATTEND: Conrado Zeng MD ADM AUTHOR: Zoraida Felder RECREATION SUPERINTENDENT * ALL edits or amendments must be made on the el [employer]/computer document * Subjective Patient reports: No: complaints. Objective General VS/I O: 24 hour I O ending at 0700: 06/29 0700 06/28 1900 Intake Total 120 1024 Output Total 500 1000 Balance -380 24 Intake, Oral 120 1024 Output, Urine 500 1000 Patient 93.4 kg Weight Weight Standing scale Measurement Method Vital Signs: Date Time Temp Pulse Resp B/P B/P Pulse O2 O2 F low FiO2 Mean Ox Delivery Rate 06/29 0726 36.7 69 16 117/78 90.6 99 Room air 06/29 0457 36.4 69 18 135/74 94.5 100 Room air 06/28 2347 36.7 72 18 111/53 0.0 99 Room air 06/28 2014 36.9 71 20 144/61 0.0 99 Room air 06/28 2001 70 20 125/57 82 06/28 1930 69 28 06/28 1900 73 19 06/28 1550 68 04/ 1500 68 16 96 06/28 1400 72 18 100 06/28 1300 75 22 100 06/28 1210 36.8 69 19 124/58 80 98 Room air 06/28 1200 69 19 98 06/28 1102 73 20 124/58 83 06/28 1000 72 19 06/28 0850 72 35 145/63 90 99 PATIENT WEIGHT: Weight (lb): 205 Weight (oz): 14.59 Weight (kg): 93.400 Medications: Active Meds + DC'd Last 24 Hrs Hydrocodone Bitart/Acetaminophen (NORCO 10/325) 1 TAB Q6H PRN PRN PO Sterile Water (WATER FOR INJECTION) 5 ML ASDIR P RN IV Potassium Chloride (POTASSIUM CHLORIDE 20MEQ TAB .ER) 40 MEQ DAILY PRN PRN PO Lidocaine (LIDODERM) 1 PATCH DAILY TOPICAL Furosemide (LASIX 20MG INJ) 20 MG BLOOD-DOSE BET WEEN IV (DC) Insulin Human Lispro (HUMALOG) 0 AC HS SUBQ Dextrose/Water (DEXTROSE 50% W SYRINGE) 25 ML DIR PRN IV (CKD) Dextrose/Water (DEXTROSE 50% W SYRINGE) 50 ML DIR PRN IV (CKD) Glucagon (GLUCAGON) 1 MG ASDIR PRN IM Aspirin (ASPIRIN) 81 MG DAILY PO Clopidogrel Bisulfate (Plavix) 75 MG DAILY PO Duloxetine HCl (CYMBALTA) 20 MG DAILY PO Losartan Potassium (COZAAR) 50 MG DAILY PO Sodium Chloride (SODIUM CHLORIDE 0.9%) 500 ML DA ELADIO MISC Atorvastatin Calcium (LIPITOR) 40 MG BEDTIME PO Gabapentin (NEURONTIN) 600 MG BID PO Insulin Glargine (Lantus/Semglee) 25 UNIT BEDTIM E SUBQ Metoprolol Succinate (TOPROL XL) 12.5 MG BID PO Mupirocin (BACTROBAN 2% 22 GM OINTMENT) 1 APPLIC BID NASAL (DC) Glucagon (GLUCAGON) 1 MG ASDIR PRN IM Hydrocodone Bitart/Acetaminophen (NORCO 10/325) 1 TAB Q6H PRN PRN PO (DC ) Morphine Sulfate (morphine SULFATE) 4 MG Q2H PRN PRN IV (DC) Ondansetron HCl (ZOFRAN) 4 MG Q8H PRN PRN IV Physical Exam General appearance: alert, awake, oriented, no a cute distress Neck: non-tender, no JVD Cardiovascular: CV assessment: regular rate and rhythm Respiratory: decreased breath sounds, on oxygen, no distress Abdomen: non-tender Genitourinary: no flank pain, no hilliard Lower extremity: LE assessment: no edema Musculoskeletal: normal inspection 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, oriented X 3, normal speech Skin: dry, intact, normal color, normal temperat ure Wound/incision: Location: Rgroin bruise, tender Psychiatry: normal affect, normal judgment/insig ht, normal mood, no hallucinations Results Findings/Data: Laboratory Tests 06/29 06/29 06/28 06/28 06/28 0731 0430 2031 1623 1118 Chemistry Sodium (134 - 147 mEq/L) 136 Potassium (3.4 - 5.0 mEq/L) 4.2 Chloride (100 - 108 mEq/L) 104 Carbon Dioxide (21 - 33 mEq/l) 24 Anion Gap (0 - 20) 12 BUN (7 - 18 mg/dL) 12 Creatinine (0.6 - 1.3 mg/dL) 1.1 Glomerular Filtr Rate (90 - 95) 50.8 L Glucose (70 - 110 mg/dL) 119 H POC Glucose (70 - 110 MG/DL) 117 H 152 H 180 H 157 H Calcium (8.0 - 10.5 mg/dL) 8.9 Magnesium (1.80 - 2.40 mg/dL) 1.79 L Laboratory Tests 06/29 0430 Hematology WBC (4.5 - 11.0 x10 3/uL) 8.7 RBC (3.54 - 5.02 x10 6/uL) 2.91 L Hgb (11.0 - 15.0 g/dL) 8.6 L Hct (33.0 - 45.0 %) 27.8 L MCV (81.0 - 99.0 fL) 95.5 MCH (27.0 - 33.0 pg) 29.6 MCHC (33.0 - 37.0 g/dL) 30.9 L RDW (11.5 - 14.5 %) 15.9 H Plt Count (150 - 400 x10 3/uL) 228 MPV (7.0 - 9.0 fL) 9.8 H Neut % (Auto) (56.0 - 77.0 %) 65.9 Lymph % (Auto) (14.0 - 32.0 %) 16.1 [place] % (Auto) (4.8 - 9.0 %) 13.3 H Eos % (Auto) (0.3 - 3.7 %) 3.6 Baso % (Auto) (0.0 - 2.0 %) 0.3 Neut # (Auto) (2.0 - 7.6 x10 3/uL) 5.72 Lymph # (Auto) (1.0 - 3.8 x10 3/uL) 1.40 [place] # (Auto) (0.1 - 0.8 x10 3/uL) 1.16 H Eos # (Auto) (0.0 - 0.2 x10 3/uL) 0.31 H Baso # (Auto) (0.0 - 0.2 x10 3/uL) 0.03 Abs Immat Gran (auto) (0.00 - 0.03 x10 3/uL) 0. 07 H Add Manual Diff NO Immature Gran % (0.0 - 2.0 %) 0.8 Nucleated RBC % (0 - 0 %) 0.0 Nucleated RBCs # (Man) (0.0 - 0.1 x10 3/uL) 0.0 0 Laboratory Tests 06/29 0430 Chemistry Magnesium (1.80 - 2.40 mg/dL) 1.79 L Telemetry Interpretation: sinus Diagnosis, Assessment Plan Plan discussed with: patient Free Text DxA P Notes Free Text DxA P Notes: 61 YO female with MHx of CAD with prior PCI/MIKHAIL to LAD (05/2021), HTN, DM, CVA, HLD who has been having angina. She was admitted electively on 06/23/21 for staged PCI to right PDA and RCA. The patient had successul PCI of the ostial PDA with MIKHAIL. However, the patient developed dissection of the proximal to mid RCA post balloon angioplasty. Im pella LVAD was inserted for stability. This morning the patient was doing well, awake and alert, no chest pain, and no SOB. Had episode of hypotension which responded to 500 ml IVF challenge. 1. Coronary artery disease 05/12/2021: 3 stents to LAD 06/23/21: PCI/MIKHAIL of ostial PDA RCA dissection s/p Impella LVAD support - dc'd on 06/24 continue DAPT, BB, statin 2. Hypertension - normotensive hypotension resolved continue BB, resume losartan 3. Diabetes mellitus continue lantus and insulin sliding scale 4. Hyperlipidemia continue statin 5. RCFA bleeding during Impella removal s/p repa ir R groin bruise hgb 7.8->7.3->6.7->7.6->7.9->8.2->8.6 s/p 1 unit 06/26 R groin US no hematoma no pseudoaneurysm 6. Fluid overload - resolved s/p IV diuresis PT/OT mobilize OOB Stable CV Status. From cardiac standpoint patien t is ok to DC home. Defer discharge disposition to primary at 1117 Electronically Signed by Inga Robertson MD on at 0803 RPT #:[id number] END OF REPORT 2021-06-28 13:46:00-00:00 [facility] Cardiology Progress Note REPORT#:[id number] REPORT STATUS: Signed DATE:06/28/21 TIME: 1346 PATIENT: TAMY MARTINEZ UNIT #: [id number] ROOM/BED: [place] [address] : 64 AGE: 61 SEX: F ATTEND: Conrado Zeng MD ADM AUTHOR: Zoraida Felder CNP * ALL edits or amendments must be made on the el [employer]/computer document * Subjective Patient reports: No: complaints. Objective General VS/I O: 24 hour I O ending at 0700: 06/28 0700 06/27 1900 Intake Total 240 1184.00 Output Total 650 1350 Balance -410 -166.00 Intake, IV 200.00 Intake, Oral 240 984 Number Voids 2 1 Output, Urine 650 1350 Vital Signs: Date Time Temp Pulse Resp B/P B/P Pulse O2 O2 F low FiO2 Mean Ox Delivery Rate 06/28 1210 36.8 69 19 124/58 80 98 Room air 04 1200 69 19 98 04/18 1102 73 20 124/58 83 04/18 1000 72 19 04/18 0850 72 35 145/63 90 99 04/18 0841 71 25 99/48 69 100 04/18 0830 72 16 98 04/18 0800 36.7 64 16 145/63 90 197 Room air 06/28 0800 64 16 97 /18 0730 70 16 95 04/18 0700 65 16 98 04/18 0640 72 19 118/55 79 97 04/18 0639 71 17 118/54 78 98 04/ 0638 74 18 104/52 75 99 04/18 0500 69 19 100 04 0430 69 17 96 04/18 0400 72 16 98 04/ 0330 70 18 98 04/18 0300 73 31 100 04/18 0230 69 17 100 04/18 0200 71 16 97 04/18 0130 68 17 98 04/18 0100 70 17 99 04/18 0030 69 20 98 04 2331 68 19 137/63 91 100 04 2301 72 19 147/62 89 98 06/27 2231 72 17 133/58 83 98 06/27 2201 139/62 89 04 2200 77 19 99 06/27 2130 77 23 120/58 83 97 06/27 2100 76 17 115/53 77 97 06/27 2030 76 16 108/53 76 98 06/27 2000 37.1 74 18 114/52 75 96 04 1933 112/50 72 04 1930 71 17 97 04 1900 71 25 98 06/27 1600 37.4 76 18 119/56 77 99 Room air 04 1600 76 18 119/56 81 99 04/ 1500 72 15 98/48 69 99 06/27 1457 72 14 101/49 71 100 04/ 1424 75 22 101/48 69 99 PATIENT WEIGHT: Weight (lb): 212 Weight (oz): 1.36 Weight (kg): 96.200 Medications: Active Meds + DC'd Last 24 Hrs Acetazolamide (DIAMOX) 500 MG Q12H IV (DC) Sterile Water (WATER FOR INJECTION) 5 ML ASDIR P RN IV Magnesium Sulfate (MAGNESIUM SULFATE 2GM/SWFI 50 ML) 50 ML ONCE ONE IV ( DC) Magnesium Sulfate (MAGNESIUM SULFATE 2GM/SWFI 50 ML) 50 ML ONCE ONE IV ( CAN) Potassium Chloride (POTASSIUM CHLORIDE 20MEQ TAB .ER) 40 MEQ DAILY PRN PRN PO Lidocaine (LIDODERM) 1 PATCH DAILY TOPICAL Furosemide (LASIX 20MG INJ) 20 MG BLOOD-DOSE BET WEEN IV (CKD) Insulin Human Lispro (HUMALOG) 0 AC HS SUBQ Dextrose/Water (DEXTROSE 50% W SYRINGE) 25 ML DIR PRN IV (CKD) Dextrose/Water (DEXTROSE 50% W SYRINGE) 50 ML DIR PRN IV (CKD) Glucagon (GLUCAGON) 1 MG ASDIR PRN IM Aspirin (ASPIRIN) 81 MG DAILY PO Clopidogrel Bisulfate (Plavix) 75 MG DAILY PO Duloxetine HCl (CYMBALTA) 20 MG DAILY PO Losartan Potassium (COZAAR) 50 MG DAILY PO Sodium Chloride (SODIUM CHLORIDE 0.9%) 500 ML DA ELADIO MISC Atorvastatin Calcium (LIPITOR) 40 MG BEDTIME PO Gabapentin (NEURONTIN) 600 MG BID PO Insulin Glargine (Lantus/Semglee) 25 UNIT BEDTIM E SUBQ Metoprolol Succinate (TOPROL XL) 12.5 MG BID PO Mupirocin (BACTROBAN 2% 22 GM OINTMENT) 1 APPLIC BID NASAL (DC) Glucagon (GLUCAGON) 1 MG ASDIR PRN IM Hydrocodone Bitart/Acetaminophen (NORCO 10/325) 1 TAB Q6H PRN PRN PO Morphine Sulfate (morphine SULFATE) 4 MG Q2H PRN PRN IV Ondansetron HCl (ZOFRAN) 4 MG Q8H PRN PRN IV Physical Exam General appearance: alert, awake, oriented, no a cute distress Neck: non-tender, no JVD Cardiovascular: CV assessment: regular rate and rhythm Respiratory: decreased breath sounds, on oxygen, no distress Abdomen: non-tender Genitourinary: no flank pain, no hilliard Lower extremity: LE assessment: no edema Musculoskeletal: normal inspection 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, oriented X 3, normal speech Skin: dry, intact, normal color, normal temperat ure Wound/incision: Location: Rgroin bruise, tender Psychiatry: normal affect, normal judgment/insig ht, normal mood, no hallucinations Results Findings/Data: Laboratory Tests 06/27 145 Blood Gas Puncture Site L Radial O2 Saturation (90 - 100 %) 96.9 ABG pH (7.35 - 7.45) 7.524 *H ABG pCO2 (35.0 - 45 mmHg) 34.0 L ABG pO2 (80 - 100.0 mmHg) 78.6 L ABG PO2/FiO2 Ratio (mm/Hg) 374.28 ABG HCO3 (22.0 - 26.0 MMOL/L) 28.1 *H ABG Total CO2 29.1 ABG Base Excess (-4.0 - 4.0 MMOL/L) 5.3 H ABG Hematocrit (33.0 - 45.0 %) 19 L ABG Hemoglobin (11.0 - 15.0 G/DL) 6.4 L Nereyda Test Positive Sodium (134 - 147 MEQ/L) 134 Potassium (3.4 - 5.0 MEQ/L) 3.9 Chloride (100 - 108 MEQ/L) 95 L Ionized Calcium (1.12 - 1.32 MMOL/L) 1.10 L Lactic Acid (0.9 - 1.7 mmol/l) 0.9 FiO2 (%) 21 Laboratory Tests 06/28 06/28 06/28 06/27 06/27 1118 0726 0455 1924 1558 Chemistry Sodium (134 - 147 mEq/L) 135 Potassium (3.4 - 5.0 mEq/L) 4.1 Chloride (100 - 108 mEq/L) 105 Carbon Dioxide (21 - 33 mEq/l) 28 Anion Gap (0 - 20) 6 BUN (7 - 18 mg/dL) 10 Creatinine (0.6 - 1.3 mg/dL) 1.0 Glomerular Filtr Rate (90 - 95) 56.7 L Glucose (70 - 110 mg/dL) 157 H POC Glucose (70 - 110 MG/DL) 157 H 168 H 134 H 171 H Calcium (8.0 - 10.5 mg/dL) 8.6 Magnesium (1.80 - 2.40 mg/dL) 1.81 06/27 1456 Chemistry POC Creatinine (0.6 - 1.0 mg/dL) 1.0 POC Glucose (mg/dL) (MG/DL) 209 Laboratory Tests 06/28 06/27 0450 1545 Hematology WBC (4.5 - 11.0 x10 3/uL) 9.0 RBC (3.54 - 5.02 x10 6/uL) 2.75 L Hgb (11.0 - 15.0 g/dL) 8.2 L 7.9 L Hct (33.0 - 45.0 %) 25.2 L 24.3 L MCV (81.0 - 99.0 fL) 91.6 MCH (27.0 - 33.0 pg) 29.8 MCHC (33.0 - 37.0 g/dL) 32.5 L RDW (11.5 - 14.5 %) 15.5 H Plt Count (150 - 400 x10 3/uL) 165 MPV (7.0 - 9.0 fL) 10.1 H Neut % (Auto) (56.0 - 77.0 %) 77.4 H Lymph % (Auto) (14.0 - 32.0 %) 10.6 L [place] % (Auto) (4.8 - 9.0 %) 8.6 Eos % (Auto) (0.3 - 3.7 %) 2.7 Baso % (Auto) (0.0 - 2.0 %) 0.3 Neut # (Auto) (2.0 - 7.6 x10 3/uL) 6.99 Lymph # (Auto) (1.0 - 3.8 x10 3/uL) 0.96 L [place] # (Auto) (0.1 - 0.8 x10 3/uL) 0.78 Eos # (Auto) (0.0 - 0.2 x10 3/uL) 0.24 H Baso # (Auto) (0.0 - 0.2 x10 3/uL) 0.03 Abs Immat Gran (auto) (0.00 - 0.03 x10 3/uL) 0. 04 H Add Manual Diff NO Immature Gran % (0.0 - 2.0 %) 0.4 Nucleated RBC % (0 - 0 %) 0.0 Nucleated RBCs # (Man) (0.0 - 0.1 x10 3/uL) 0.0 0 Laboratory Tests 06/28 0455 Chemistry Magnesium (1.80 - 2.40 mg/dL) 1.81 Diagnosis, Assessment Plan Free Text DxA P Notes Free Text DxA P Notes: 61 YO female with MHx of CAD with prior PCI/MIKHAIL to LAD (05/2021), HTN, DM, CVA, HLD who has been having angina. She was admitted electively on 06/23/21 for staged PCI to right PDA and RCA. The patient had successul PCI of the ostial PDA with MIKHAIL. However, the patient developed dissection of the proximal to mid RCA post balloon angioplasty. Im pella LVAD was inserted for stability. This morning the patient was doing well, awake and alert, no chest pain, and no SOB. Had episode of hypotension which responded to 500 ml IVF challenge. 1. Coronary artery disease 05/12/2021: 3 stents to LAD 06/23/21: PCI/MIKHAIL of ostial PDA RCA dissection s/p Impella LVAD support - dc'd on 06/24 continue DAPT, BB, statin 2. Hypertension - normotensive hypotension resolved continue BB, resume losartan 3. Diabetes mellitus continue lantus and insulin sliding scale 4. Hyperlipidemia continue statin 5. RCFA bleeding during Impella removal s/p repa ir R groin bruise hgb 7.8->7.3->6.7->7.6->7.9->8.2 s/p 1 unit 06/26 R groin US no hematoma no pseudoaneurysm 6. Fluid overload - resolving 24H UO 2L, negative FB s/p IV diuresis PT/OT mobilize OOB Transfer to [facility] at 1531 RPT #:[id number] END OF REPORT 2021-06-28 13:46:00-00:00 [facility] Cardiology Progress Note REPORT#:[id number] REPORT STATUS: Signed DATE:06/28/21 TIME: 1346 PATIENT: TAMY MARTINEZ UNIT #: [id number] ROOM/BED: 3349-1 : 64 AGE: 61 SEX: F ATTEND: Conrado Zeng MD ADM AUTHOR: Zoraida Felder CNP * ALL edits or amendments must be made on the [employer] document * Subjective Patient reports: No: complaints. Objective General VS/I O: 24 hour I O ending at 0700: 06/28 0700 06/27 1900 Intake Total 240 1184.00 Output Total 650 1350 Balance -410 -166.00 Intake, IV 200.00 Intake, Oral 240 984 Number Voids 2 1 Output, Urine 650 1350 Vital Signs: Date Time Temp Pulse Resp B/P B/P Pulse O2 O2 F low FiO2 Mean Ox Delivery Rate 06/28 1210 36.8 69 19 124/58 80 98 Room air 06/28 1200 69 19 98 04 1102 73 20 124/58 83 06/28 1000 72 19 06/28 0850 72 35 145/63 90 99 06/28 0841 71 25 99/48 69 100 06/28 0830 72 16 98 06/28 0800 36.7 64 16 145/63 90 197 Room air 06/28 0800 64 16 97 06/28 0730 70 16 95 06/28 0700 65 16 98 06/28 0640 72 19 118/55 79 97 06/28 0639 71 17 118/54 78 98 06/28 0638 74 18 104/52 75 99 06/28 0500 69 19 100 04 0430 69 17 96 04 0400 72 16 98 06/28 0330 70 18 98 04 0300 73 31 100 / 0230 69 17 100 04 0200 71 16 97 04/ 0130 68 17 98 04/ 0100 70 17 99 04 0030 69 20 98 06/27 2331 68 19 137/63 91 100 06/27 2301 72 19 147/62 89 98 06/27 2231 72 17 133/58 83 98 06/27 2201 139/62 89 06/27 2200 77 19 99 06/27 2130 77 23 120/58 83 97 06/27 2100 76 17 115/53 77 97 06/27 2030 76 16 108/53 76 98 06/27 2000 37.1 74 18 114/52 75 96 06/27 1933 112/50 72 06/27 1930 71 17 97 06/27 1900 71 25 98 06/27 1600 37.4 76 18 119/56 77 99 Room air 06/27 1600 76 18 119/56 81 99 06/27 1500 72 15 98/48 69 99 06/27 1457 72 14 101/49 71 100 06/27 1424 75 22 101/48 69 99 PATIENT WEIGHT: Weight (lb): 212 Weight (oz): 1.36 Weight (kg): 96.200 Medications: Active Meds + DC'd Last 24 Hrs Acetazolamide (DIAMOX) 500 MG Q12H IV (DC) Sterile Water (WATER FOR INJECTION) 5 ML ASDIR P RN IV Magnesium Sulfate (MAGNESIUM SULFATE 2GM/SWFI 50 ML) 50 ML ONCE ONE IV ( DC) Magnesium Sulfate (MAGNESIUM SULFATE 2GM/SWFI 50 ML) 50 ML ONCE ONE IV ( CAN) Potassium Chloride (POTASSIUM CHLORIDE 20MEQ TAB .ER) 40 MEQ DAILY PRN PRN PO Lidocaine (LIDODERM) 1 PATCH DAILY TOPICAL Furosemide (LASIX 20MG INJ) 20 MG BLOOD-DOSE BET WEEN IV (CKD) Insulin Human Lispro (HUMALOG) 0 AC HS SUBQ Dextrose/Water (DEXTROSE 50% W SYRINGE) 25 ML DIR PRN IV (CKD) Dextrose/Water (DEXTROSE 50% W SYRINGE) 50 ML DIR PRN IV (CKD) Glucagon (GLUCAGON) 1 MG ASDIR PRN IM Aspirin (ASPIRIN) 81 MG DAILY PO Clopidogrel Bisulfate (Plavix) 75 MG DAILY PO Duloxetine HCl (CYMBALTA) 20 MG DAILY PO Losartan Potassium (COZAAR) 50 MG DAILY PO Sodium Chloride (SODIUM CHLORIDE 0.9%) 500 ML DA ELADIO MISC Atorvastatin Calcium (LIPITOR) 40 MG BEDTIME PO Gabapentin (NEURONTIN) 600 MG BID PO Insulin Glargine (Lantus/Semglee) 25 UNIT BEDTIM E SUBQ Metoprolol Succinate (TOPROL XL) 12.5 MG BID PO Mupirocin (BACTROBAN 2% 22 GM OINTMENT) 1 APPLIC BID NASAL (DC) Glucagon (GLUCAGON) 1 MG ASDIR PRN IM Hydrocodone Bitart/Acetaminophen (NORCO 10/325) 1 TAB Q6H PRN PRN PO Morphine Sulfate (morphine SULFATE) 4 MG Q2H PRN PRN IV Ondansetron HCl (ZOFRAN) 4 MG Q8H PRN PRN IV Physical Exam General appearance: alert, awake, oriented, no a cute distress Neck: non-tender, no JVD Cardiovascular: CV assessment: regular rate and rhythm Respiratory: decreased breath sounds, on oxygen, no distress Abdomen: non-tender Genitourinary: no flank pain, no hilliard Lower extremity: LE assessment: no edema Musculoskeletal: normal inspection 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, oriented X 3, normal speech Skin: dry, intact, normal color, normal temperat ure Wound/incision: Location: Rgroin bruise, tender Psychiatry: normal affect, normal judgment/insig ht, normal mood, no hallucinations Results Findings/Data: Laboratory Tests 06/27 1456 Blood Gas Puncture Site L Radial O2 Saturation (90 - 100 %) 96.9 ABG pH (7.35 - 7.45) 7.524 *H ABG pCO2 (35.0 - 45 mmHg) 34.0 L ABG pO2 (80 - 100.0 mmHg) 78.6 L ABG PO2/FiO2 Ratio (mm/Hg) 374.28 ABG HCO3 (22.0 - 26.0 MMOL/L) 28.1 *H ABG Total CO2 29.1 ABG Base Excess (-4.0 - 4.0 MMOL/L) 5.3 H ABG Hematocrit (33.0 - 45.0 %) 19 L ABG Hemoglobin (11.0 - 15.0 G/DL) 6.4 L Nereyda Test Positive Sodium (134 - 147 MEQ/L) 134 Potassium (3.4 - 5.0 MEQ/L) 3.9 Chloride (100 - 108 MEQ/L) 95 L Ionized Calcium (1.12 - 1.32 MMOL/L) 1.10 L Lactic Acid (0.9 - 1.7 mmol/l) 0.9 FiO2 (%) 21 Laboratory Tests 06/28 06/28 06/28 06/27 06/27 1118 0726 0455 1924 1558 Chemistry Sodium (134 - 147 mEq/L) 135 Potassium (3.4 - 5.0 mEq/L) 4.1 Chloride (100 - 108 mEq/L) 105 Carbon Dioxide (21 - 33 mEq/l) 28 Anion Gap (0 - 20) 6 BUN (7 - 18 mg/dL) 10 Creatinine (0.6 - 1.3 mg/dL) 1.0 Glomerular Filtr Rate (90 - 95) 56.7 L Glucose (70 - 110 mg/dL) 157 H POC Glucose (70 - 110 MG/DL) 157 H 168 H 134 H 171 H Calcium (8.0 - 10.5 mg/dL) 8.6 Magnesium (1.80 - 2.40 mg/dL) 1.81 06/27 1456 Chemistry POC Creatinine (0.6 - 1.0 mg/dL) 1.0 POC Glucose (mg/dL) (MG/DL) 209 Laboratory Tests 06/28 06/27 0450 1545 Hematology WBC (4.5 - 11.0 x10 3/uL) 9.0 RBC (3.54 - 5.02 x10 6/uL) 2.75 L Hgb (11.0 - 15.0 g/dL) 8.2 L 7.9 L Hct (33.0 - 45.0 %) 25.2 L 24.3 L MCV (81.0 - 99.0 fL) 91.6 MCH (27.0 - 33.0 pg) 29.8 MCHC (33.0 - 37.0 g/dL) 32.5 L RDW (11.5 - 14.5 %) 15.5 H Plt Count (150 - 400 x10 3/uL) 165 MPV (7.0 - 9.0 fL) 10.1 H Neut % (Auto) (56.0 - 77.0 %) 77.4 H Lymph % (Auto) (14.0 - 32.0 %) 10.6 L [place] % (Auto) (4.8 - 9.0 %) 8.6 Eos % (Auto) (0.3 - 3.7 %) 2.7 Baso % (Auto) (0.0 - 2.0 %) 0.3 Neut # (Auto) (2.0 - 7.6 x10 3/uL) 6.99 Lymph # (Auto) (1.0 - 3.8 x10 3/uL) 0.96 L [place] # (Auto) (0.1 - 0.8 x10 3/uL) 0.78 Eos # (Auto) (0.0 - 0.2 x10 3/uL) 0.24 H Baso # (Auto) (0.0 - 0.2 x10 3/uL) 0.03 Abs Immat Gran (auto) (0.00 - 0.03 x10 3/uL) 0. 04 H Add Manual Diff NO Immature Gran % (0.0 - 2.0 %) 0.4 Nucleated RBC % (0 - 0 %) 0.0 Nucleated RBCs # (Man) (0.0 - 0.1 x10 3/uL) 0.0 0 Laboratory Tests 06/28 0455 Chemistry Magnesium (1.80 - 2.40 mg/dL) 1.81 Diagnosis, Assessment Plan Free Text DxA P Notes Free Text DxA P Notes: 61 YO female with MHx of CAD with prior PCI/MIKHAIL to LAD (05/2021), HTN, DM, CVA, HLD who has been having angina. She was admitted electively on 06/23/21 for staged PCI to right PDA and RCA. The patient had successul PCI of the ostial PDA with MIKHAIL. However, the patient developed dissection of the proximal to mid RCA post balloon angioplasty. Im pella LVAD was inserted for stability. This morning the patient was doing well, awake and alert, no chest pain, and no SOB. Had episode of hypotension which responded to 500 ml IVF challenge. 1. Coronary artery disease 05/12/2021: 3 stents to LAD 06/23/21: PCI/MIKHAIL of ostial PDA RCA dissection s/p Impella LVAD support - dc'd on 06/24 continue DAPT, BB, statin 2. Hypertension - normotensive hypotension resolved continue BB, resume losartan 3. Diabetes mellitus continue lantus and insulin sliding scale 4. Hyperlipidemia continue statin 5. RCFA bleeding during Impella removal s/p repa ir R groin bruise hgb 7.8->7.3->6.7->7.6->7.9->8.2 s/p 1 unit 06/26 R groin US no hematoma no pseudoaneurysm 6. Fluid overload - resolving 24H UO 2L, negative FB s/p IV diuresis PT/OT mobilize OOB Transfer to [facility] at 1531 Electronically Signed by Inga Robertson MD on at 0819 RPT #:[id number] END OF REPORT 2021-06-28 12:40:00-00:00 [facility] Hospitalist Progress Note REPORT#:[id number] REPORT STATUS: Signed DATE:06/28/21 TIME: 1240 PATIENT: TAMY MARTINEZ UNIT #: [id number] ROOM/BED: [place] [address] : 62 AGE: 61 SEX: F ATTEND: Conrado Zeng MD ADM AUTHOR: Agnes Almeida MD * ALL edits or amendments must be made on the el [employer]/computer document * Subjective Chief complaint: she feel well . no complaint Review of Systems Constitutional: Denies: fatigue, fever, generalized weakness, le thargy. Respiratory: Denies: productive cough (sputum), SOB, wheezing . Cardiovascular: Denies: chest pain, ELLIS (dyspnea on exertion), e agata, orthopnea. GI: Denies: abdominal pain, melena, nausea, vomiting . Objective General VS/I O: Vital Signs: Date Time Temp Pulse Resp B/P B/P Pulse O2 O2 F low FiO2 Mean Ox Delivery Rate 06/28 1210 36.8 69 19 124/58 80 98 Room air 06/28 1200 69 19 98 04 1102 73 20 124/58 83 04/18 1000 72 19 04 0850 72 35 145/63 90 99 04 0841 71 25 99/48 69 100 04/ 0830 72 16 98 04/ 0800 36.7 64 16 145/63 90 197 Room air 04/ 0800 64 16 97 04/18 0730 70 16 95 / 0700 65 16 98 / 0640 72 19 118/55 79 97 04/18 0639 71 17 118/54 78 98 04/18 0638 74 18 104/52 75 99 04/18 0500 69 19 100 04/18 0430 69 17 96 04/18 0400 72 16 98 /18 0330 70 18 98 /18 0300 73 31 100 /18 0230 69 17 100 0418 0200 71 16 97 04/18 0130 68 17 98 04/18 0100 70 17 99 04/18 0030 69 20 98 04 2331 68 19 137/63 91 100 06/27 2301 72 19 147/62 89 98 06/27 2231 72 17 133/58 83 98 06/27 2201 139/62 89 04 2200 77 19 99 04 2130 77 23 120/58 83 97 04/17 2100 76 17 115/53 77 97 06/27 2030 76 16 108/53 76 98 06/28 1999 37.1 74 18 114/52 75 96 06/27 1933 112/50 72 06/27 1930 71 17 97 06/27 1900 71 25 98 06/27 1600 37.4 76 18 119/56 77 99 Room air 06/27 1600 76 18 119/56 81 99 06/27 1500 72 15 98/48 69 99 06/27 1457 72 14 101/49 71 100 06/27 1424 75 22 101/48 69 99 06/27 1311 80 19 143/61 88 100 06/27 1300 78 18 95/48 69 97 24 hour I O ending at 0700: 06/28 0700 06/27 1900 Intake Total 240 1184.00 Output Total 650 1350 Balance -410 -166.00 Intake, IV 200.00 Intake, Oral 240 984 Number Voids 2 1 Output, Urine 650 1350 PATIENT WEIGHT: Weight (lb): 212 Weight (oz): 1.36 Weight (kg): 96.200 Medications: Active Meds + DC'd Last 24 Hrs Acetazolamide (DIAMOX) 500 MG Q12H IV (DC) Sterile Water (WATER FOR INJECTION) 5 ML ASDIR P RN IV Calcium Chloride (CALCIUM CHLORIDE) 1 GM ONCE ON E IV (DC) Sodium Chloride (SODIUM CHLORIDE 0.9%) 100 ML Magnesium Sulfate (MAGNESIUM SULFATE 2GM/SWFI 50 ML) 50 ML ONCE ONE IV ( DC) Potassium Chloride (POTASSIUM CHLORIDE 20MEQ TAB .ER) 20 MEQ ONCE ONE PO (DC) Sodium Bicarbonate (SODIUM BICARBONATE) 100 MEQ ONCE ONE IV (DC) Magnesium Sulfate (MAGNESIUM SULFATE 2GM/SWFI 50 ML) 50 ML ONCE ONE IV ( CAN) Potassium Chloride (POTASSIUM CHLORIDE 20MEQ TAB .ER) 40 MEQ DAILY PRN PRN PO Lidocaine (LIDODERM) 1 PATCH DAILY TOPICAL Furosemide (LASIX 20MG INJ) 20 MG BLOOD-DOSE BET WEEN IV (CKD) Insulin Human Lispro (HUMALOG) 0 AC HS SUBQ Dextrose/Water (DEXTROSE 50% W SYRINGE) 25 ML DIR PRN IV (CKD) Dextrose/Water (DEXTROSE 50% W SYRINGE) 50 ML DIR PRN IV (CKD) Glucagon (GLUCAGON) 1 MG ASDIR PRN IM Aspirin (ASPIRIN) 81 MG DAILY PO Clopidogrel Bisulfate (Plavix) 75 MG DAILY PO Duloxetine HCl (CYMBALTA) 20 MG DAILY PO Losartan Potassium (COZAAR) 50 MG DAILY PO Sodium Chloride (SODIUM CHLORIDE 0.9%) 500 ML DA ELADIO MISC Atorvastatin Calcium (LIPITOR) 40 MG BEDTIME PO Gabapentin (NEURONTIN) 600 MG BID PO Insulin Glargine (Lantus/Semglee) 25 UNIT BEDTIM E SUBQ Metoprolol Succinate (TOPROL XL) 12.5 MG BID PO Mupirocin (BACTROBAN 2% 22 GM OINTMENT) 1 APPLIC BID NASAL (DC) Glucagon (GLUCAGON) 1 MG ASDIR PRN IM Hydrocodone Bitart/Acetaminophen (NORCO 10/325) 1 TAB Q6H PRN PRN PO Morphine Sulfate (morphine SULFATE) 4 MG Q2H PRN PRN IV Ondansetron HCl (ZOFRAN) 4 MG Q8H PRN PRN IV Physical Exam General appearance: alert, awake, oriented Head/Eyes: atraumatic, normal conjunctiva/sclera , normal eyelids/periorb., normocephalic Neck: full range of motion, non-tender, normal t hyroid, no JVD Cardiovascular: normal heart sounds, regular rat e rhythm Respiratory: aerating well, clear to auscultatio n Abdomen: non-tender, normal bowel sounds, soft, no distention Extremities: moves all, no calf tenderness, no e agata 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, oriented X 3, CNII-XII intact, normal speech, no motor deficits, no sensory deficits Skin: dry, intact, ecchymosis Right groin Results Findings/Data: Laboratory Tests 06/27 1456 Blood Gas Puncture Site L Radial O2 Saturation (90 - 100 %) 96.9 ABG pH (7.35 - 7.45) 7.524 *H ABG pCO2 (35.0 - 45 mmHg) 34.0 L ABG pO2 (80 - 100.0 mmHg) 78.6 L ABG PO2/FiO2 Ratio (mm/Hg) 374.28 ABG HCO3 (22.0 - 26.0 MMOL/L) 28.1 *H ABG Total CO2 29.1 ABG Base Excess (-4.0 - 4.0 MMOL/L) 5.3 H ABG Hematocrit (33.0 - 45.0 %) 19 L ABG Hemoglobin (11.0 - 15.0 G/DL) 6.4 L Nereyda Test Positive Sodium (134 - 147 MEQ/L) 134 Potassium (3.4 - 5.0 MEQ/L) 3.9 Chloride (100 - 108 MEQ/L) 95 L Ionized Calcium (1.12 - 1.32 MMOL/L) 1.10 L Lactic Acid (0.9 - 1.7 mmol/l) 0.9 FiO2 (%) 21 Laboratory Tests 06/28 06/28 06/28 06/27 06/27 1118 0726 0455 1924 1558 Chemistry Sodium (134 - 147 mEq/L) 135 Potassium (3.4 - 5.0 mEq/L) 4.1 Chloride (100 - 108 mEq/L) 105 Carbon Dioxide (21 - 33 mEq/l) 28 Anion Gap (0 - 20) 6 BUN (7 - 18 mg/dL) 10 Creatinine (0.6 - 1.3 mg/dL) 1.0 Glomerular Filtr Rate (90 - 95) 56.7 L Glucose (70 - 110 mg/dL) 157 H POC Glucose (70 - 110 MG/DL) 157 H 168 H 134 H 171 H Calcium (8.0 - 10.5 mg/dL) 8.6 Magnesium (1.80 - 2.40 mg/dL) 1.81 06/27 1456 Chemistry POC Creatinine (0.6 - 1.0 mg/dL) 1.0 POC Glucose (mg/dL) (MG/DL) 209 Laboratory Tests 06/28 06/27 0450 1545 Hematology WBC (4.5 - 11.0 x10 3/uL) 9.0 RBC (3.54 - 5.02 x10 6/uL) 2.75 L Hgb (11.0 - 15.0 g/dL) 8.2 L 7.9 L Hct (33.0 - 45.0 %) 25.2 L 24.3 L MCV (81.0 - 99.0 fL) 91.6 MCH (27.0 - 33.0 pg) 29.8 MCHC (33.0 - 37.0 g/dL) 32.5 L RDW (11.5 - 14.5 %) 15.5 H Plt Count (150 - 400 x10 3/uL) 165 MPV (7.0 - 9.0 fL) 10.1 H Neut % (Auto) (56.0 - 77.0 %) 77.4 H Lymph % (Auto) (14.0 - 32.0 %) 10.6 L [place] % (Auto) (4.8 - 9.0 %) 8.6 Eos % (Auto) (0.3 - 3.7 %) 2.7 Baso % (Auto) (0.0 - 2.0 %) 0.3 Neut # (Auto) (2.0 - 7.6 x10 3/uL) 6.99 Lymph # (Auto) (1.0 - 3.8 x10 3/uL) 0.96 L [place] # (Auto) (0.1 - 0.8 x10 3/uL) 0.78 Eos # (Auto) (0.0 - 0.2 x10 3/uL) 0.24 H Baso # (Auto) (0.0 - 0.2 x10 3/uL) 0.03 Abs Immat Gran (auto) (0.00 - 0.03 x10 3/uL) 0. 04 H Add Manual Diff NO Immature Gran % (0.0 - 2.0 %) 0.4 Nucleated RBC % (0 - 0 %) 0.0 Nucleated RBCs # (Man) (0.0 - 0.1 x10 3/uL) 0.0 0 Diagnosis, Assessment Plan Consultants: cardiology, cardiovascular surgery, critical/waste machine tender, hospitalist Free Text DxA P Notes Free text DxA P notes: angina /CAD hypotension -- cardiagenic HTN leucocytosis DM HLD anemia -- due to acute blood loss angina/CAD [facility] -- PCI cardiology consult continue home med plavix /ASA continue home medication hypotension cardiogenic--impella was inserted resolve BP-- stable leucocytosis no sign of infection monitor cbc DM- sliding scale continue home med HTN-- monitor stable HLD -- continue home med anemia -- due to acute blood loss surgery -- 06/24 1. Exploration of right common femoral artery. 2. Repair of right common femoral artery. 06/25 -- she complaint of neck pain -lidocaine patch -- she had artery repair surgery yesterday -- Hb -9.2--7.8 -- monitor BP and H H 06/26.... Anemia hemoglobin 6.7, s/p 1 unit of bl ood ........ hypomagnesia magnesium replaced ........ complaining of sore shortness of breath but able to maintain saturation above 90% on room air ......... labs in a.m. 06/27.... Hemoglobin improved 7.6 today ........ magnesium replaced ........ vitals stable 06/28- she feel well -- H H-- stable -- continue monitor as cardiology and CV surgeo n Quality: Gen Med Crit Care Current Medications Current medication review: Current Medications Sig/Nandini Start time Last Medication Dose Route Stop Time Status Admin Dexamethasone Sodium 0 .STK-MED ONE 06/24 173 DC Phosphate .ROUTE Lidocaine HCl 0 .STK-MED ONE 06/24 173 DC .ROUTE Ondansetron HCl 0 .STK-MED ONE 06/24 1732 DC .ROUTE Sevoflurane 0 .STK-MED ONE 06/24 1732 DC INH Epinephrine 0 .STK-MED ONE 06/24 1713 DC 06/24 IV 1715 Sodium Bicarbonate 0 .STK-MED ONE 06/24 1713 DC 06/24 IV 1715 Thrombin 0 .STK-MED ONE 06/24 1703 DC TOPICAL Sodium Chloride 500 ML .STK-MED ONE 06/24 1650 DC IV Etomidate 0 .STK-MED ONE 06/24 1648 DC IV Heparin Sodium/ 1,000 ML .STK-MED ONE 06/24 164 1 DC 06/24 Sodium Chloride IV 1705 Insulin Human Lispro 0 AC HS 06/24 1630 AC SUBQ 07/24 1629 Methylprednisolone 0 .STK-MED ONE 06/24 1629 D C 06/24 Sodium Succinate IV 1705 Norepinephrine 250 ML .STK-MED ONE 06/24 1626 D C 06/24 Bitartrate IV 1705 Phenylephrine HCl 0 .STK-MED ONE 06/24 1607 DC 06/24 I-CHAVEZ 1705 Fentanyl Citrate 0 .STK-MED ONE 06/24 1533 DC 0 06/24 .ROUTE 1539 Heparin Sodium/ 500 ML .STK-MED ONE 06/24 1533 DC 06/24 Sodium Chloride IV 1539 Lidocaine HCl 0 .STK-MED ONE 06/24 1533 DC .ROUTE 1539 Midazolam HCl 0 .STK-MED ONE 06/24 1532 DC .ROUTE 1539 Dextrose/Water 25 ML ASDIR PRN 06/24 1345 CKD IV 07/24 1344 Dextrose/Water 50 ML ASDIR PRN 06/24 1345 CKD IV 07/24 1344 Glucagon 1 MG ASDIR PRN 06/24 1345 AC IM 07/24 1344 Aspirin 81 MG DAILY 06/24 0900 AC 06/24 PO 07/24 0859 0916 Clopidogrel Bisulfate 75 MG DAILY 06/24 0900 AC 06/24 PO 07/24 0859 1435 Duloxetine HCl 20 MG DAILY 06/24 0900 AC 06/24 PO 07/24 0859 0916 Isosorbide Dinitrate 60 MG DAILY 06/24 0900 DA 06/24 PO 07/24 0859 0917 Losartan Potassium 50 MG DAILY 06/24 0900 AC PO 07/24 0859 0916 Sodium Chloride 500 ML DAILY 06/24 0900 AC MISC 07/24 0859 Magnesium Sulfate 50 ML ONCE ONE 06/24 0830 DC 06/24 IV 06/24 1029 0921 Atorvastatin Calcium 40 MG BEDTIME 06/23 2100 A C 06/23 PO 07/23 205 2032 Gabapentin 600 MG BID 06/23 2100 AC 06/24 PO 07/23 205 0916 Insulin Glargine 25 UNIT BEDTIME 06/23 2100 AC 06/23 SUBQ 07/23 2059 2030 Metoprolol Succinate 12.5 MG BID 06/23 2100 AC 06/24 PO 07/23 2059 0917 Mupirocin 1 APPLIC BID 06/23 2100 AC 06/24 NASAL 06/28 0901 0916 Insulin Human Lispro 0 AC HS 06/23 1800 DC 06/11 4 SUBQ 07/23 1749 0916 Dextrose/Water 25 ML ASDIR PRN 06/23 1730 DC IV 07/23 1729 Dextrose/Water 50 ML ASDIR PRN 06/23 1730 DC IV 07/23 1729 Glucagon 1 MG ASDIR PRN 06/23 1730 AC IM 07/23 1729 Heparin Sodium 0 ASDIR PRN 06/23 1730 AC IV 07/23 1729 Heparin Sodium 500 ML ASDIR 06/23 1730 CKD 04 4 (Porcine) IV 07/23 1729 0301 Hydrocodone Bitart/ 1 TAB Q6H PRN PRN 06/23 17 30 AC Acetaminophen PO 06/28 1729 Morphine Sulfate 4 MG Q2H PRN PRN 06/23 1730 AC 06/24 IV 06/28 1729 0634 Ondansetron HCl 4 MG Q8H PRN PRN 06/23 1730 AC IV 07/23 1729 Sodium Chloride 1,000 ML .Q10H 06/23 1730 AC IV 07/23 1729 1436 Atropine Sulfate 0.5 MG ASDIR PRN 06/23 1430 DC IV 06/24 1423 Heparin Sodium 12,500 UNIT DAILY PRN PRN 06/23 1430 AC Dextrose/Water 500 ML I-CATHETER 07/23 1429 Heparin Sodium/ 500 ML DAILY PRN PRN 06/23 1430 AC 06/23 Dextrose I-CATHETER 07/23 1429 2302 Sodium Chloride 1,000 ML .[id number] 06/23 1430 DC 06/23 IV 06/24 0349 1755 Sodium Chloride 500 ML ASDIR PRN 06/23 1430 DC IV 06/24 1423 Home Medications: GABAPENTIN (NEURONTIN) 600 MG PO BID FOLIC ACID 1 MG PO DAILY METOPROLOL SUCC XL (TOPROL XL) 12.5 MG PO BID ISOSORBIDE DINITRATE (ISORDIL) 60 MG PO DAILY ASPIRIN 81 MG PO DAILY DULoxetine DR (CYMBALTA) 20 MG PO DAILY LOSARTAN (COZAAR) 50 MG PO DAILY ATORVASTATIN (LIPITOR) 40 MG PO BEDTIME METHOTREXATE (RHEUMATREX) 2.5 MG PO Q7D INSULIN ASPART (NovoLOG) Insulin Degludec (TRESIBA FLEXTOUCH U-100 (3mL)) 26 UNITS SUBQ DAILY HYDROcodone/APAP (NORCO 10/325) 1 TAB PO Q6H PRN PRN PAIN [XELJANZ] (Unknown Dose) PO DAILY NITROGLYCERIN (NITROSTAT) 0.4 MG SL Q5M PRN PRN ANGINA CLOPIDOGREL (PLAVIX) 75 MG PO DAILY Electronically Signed by Agnes Almeida MD on 2 at 1243 [facility] #:[id number] END OF REPORT 2021-06-28 09:35:00-00:00 [facility]) Cardiothoracic Surgery Prog REPORT#:[id number] REPORT STATUS: Signed DATE:06/28/21 TIME: 934 PATIENT: TAMY MARTINEZ UNIT #: [id number] ROOM/BED: [place] [address] : 64 AGE: 61 SEX: F ATTEND: Conrado Zeng MD ADM AUTHOR: Loly Agee * ALL edits or amendments must be made on the Wooop/computer document * General Post-op: day 4 Status post: 06/24 S/p 1. Exploration of right common femoral artery. 2. Repair of right common femoral artery. Subjective Chief Complaint: Follow up right groin exploration Review of Systems Constitutional: Denies: fever, malaise. Allergy/Immun: Denies: allergic reaction. Respiratory: Denies: SOB. GI: Denies: abdominal pain, nausea, vomiting. Heme: Reports: other (right groin tenderness ). Denies : bleeding. Neuro: Denies: dizziness, headache, vision change. Objective General VS/I O Vital Signs Date Temp Pulse Resp B/P B/P Mean Pulse Ox FiO2 06/27-06/28 98.1-99.3 64-82 14-35 95-147/47-63 68-91 93-197 Last Documented: Result Date Time Pulse Ox 99 06/28 0850 B/P 145/63 06/28 0850 B/P Mean 90 06/28 0850 Pulse 72 06/28 0850 Resp 35 06/28 0850 O2 Delivery Room air 06/28 0800 Temp 98.1 06/28 0800 O2 Flow Rate 0 06/26 1200 FiO2 28 06/24 0915 24 hour I O ending at 0700: 06/28 0700 06/27 1900 Intake Total 240 1184.00 Output Total 650 1350 Balance -410 -166.00 Intake, IV 200.00 Intake, Oral 240 984 Number Voids 2 1 Output, Urine 650 1350 PATIENT WEIGHT: Weight (lb): 212 Weight (oz): 1.36 Weight (kg): 96.200 Physical Exam General appearance: alert, oriented, pleasant, m ental status normal, no respiratory distress Wound/incision: Location: right groin Site condition: soft. mild tenderness, bruising HEENT: anicteric Neck: supple/no meningismus Cardiovascular: normal heart sounds, regular rat e rhythm Respiratory: aerating well, clear to auscultatio n, symmetric expansion, no distress Abdomen: soft, non-tender, no distention Genitourinary: hilliard Extremities: pedal pulses, moves all 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, oriented X 3, normal speech, n o motor deficits Psychiatry: normal affect, normal mood Current Medications Medications: Active Meds + DC'd Last 24 Hrs Acetazolamide (DIAMOX) 500 MG Q12H IV (DC) Sterile Water (WATER FOR INJECTION) 5 ML ASDIR P RN IV Calcium Chloride (CALCIUM CHLORIDE) 1 GM ONCE ON E IV (DC) Sodium Chloride (SODIUM CHLORIDE 0.9%) 100 ML Magnesium Sulfate (MAGNESIUM SULFATE 2GM/SWFI 50 ML) 50 ML ONCE ONE IV ( DC) Potassium Chloride (POTASSIUM CHLORIDE 20MEQ TAB .ER) 20 MEQ ONCE ONE PO (DC) Sodium Bicarbonate (SODIUM BICARBONATE) 100 MEQ ONCE ONE IV (DC) Magnesium Sulfate (MAGNESIUM SULFATE 2GM/SWFI 50 ML) 50 ML ONCE ONE IV ( CAN) Magnesium Sulfate (MAGNESIUM SULFATE 2GM/SWFI 50 ML) 50 ML ONCE ONE IV ( DC) Potassium Chloride (POTASSIUM CHLORIDE 20MEQ TAB .ER) 40 MEQ ONCE ONE PO (DC) Potassium Chloride (POTASSIUM CHLORIDE 20MEQ TAB .ER) 40 MEQ DAILY PRN PRN PO Furosemide (LASIX 40 mg/4 mL INJECTION) 40 MG ON CE ONE IV (DC) Lidocaine (LIDODERM) 1 PATCH DAILY TOPICAL Furosemide (LASIX 20MG INJ) 20 MG BLOOD-DOSE BET WEEN IV (CKD) Insulin Human Lispro (HUMALOG) 0 AC HS SUBQ Dextrose/Water (DEXTROSE 50% W SYRINGE) 25 ML DIR PRN IV (CKD) Dextrose/Water (DEXTROSE 50% W SYRINGE) 50 ML DIR PRN IV (CKD) Glucagon (GLUCAGON) 1 MG ASDIR PRN IM Aspirin (ASPIRIN) 81 MG DAILY PO Clopidogrel Bisulfate (Plavix) 75 MG DAILY PO Duloxetine HCl (CYMBALTA) 20 MG DAILY PO Losartan Potassium (COZAAR) 50 MG DAILY PO Sodium Chloride (SODIUM CHLORIDE 0.9%) 500 ML DA ELADIO MISC Atorvastatin Calcium (LIPITOR) 40 MG BEDTIME PO Gabapentin (NEURONTIN) 600 MG BID PO Insulin Glargine (Lantus/Semglee) 25 UNIT BEDTI ME SUBQ Metoprolol Succinate (TOPROL XL) 12.5 MG BID PO Mupirocin (BACTROBAN 2% 22 GM OINTMENT) 1 APPLIC BID NASAL (DC) Glucagon (GLUCAGON) 1 MG ASDIR PRN IM Hydrocodone Bitart/Acetaminophen (NORCO 10/325) 1 TAB Q6H PRN PRN PO Morphine Sulfate (morphine SULFATE) 4 MG Q2H PRN PRN IV Ondansetron HCl (ZOFRAN) 4 MG Q8H PRN PRN IV Results Findings/Data: Laboratory Tests 06/27 1456 Blood Gas Puncture Site L Radial O2 Saturation (90 - 100 %) 96.9 ABG pH (7.35 - 7.45) 7.524 *H ABG pCO2 (35.0 - 45 mmHg) 34.0 L ABG pO2 (80 - 100.0 mmHg) 78.6 L ABG PO2/FiO2 Ratio (mm/Hg) 374.28 ABG HCO3 (22.0 - 26.0 MMOL/L) 28.1 *H ABG Total CO2 29.1 ABG Base Excess (-4.0 - 4.0 MMOL/L) 5.3 H ABG Hematocrit (33.0 - 45.0 %) 19 L ABG Hemoglobin (11.0 - 15.0 G/DL) 6.4 L Nereyda Test Positive Sodium (134 - 147 MEQ/L) 134 Potassium (3.4 - 5.0 MEQ/L) 3.9 Chloride (100 - 108 MEQ/L) 95 L Ionized Calcium (1.12 - 1.32 MMOL/L) 1.10 L Lactic Acid (0.9 - 1.7 mmol/l) 0.9 FiO2 (%) 21 Laboratory Tests 06/28 06/28 06/27 06/27 06/27 0726 0455 1924 1558 1456 Chemistry Sodium (134 - 147 mEq/L) 135 Potassium (3.4 - 5.0 mEq/L) 4.1 Chloride (100 - 108 mEq/L) 105 Carbon Dioxide (21 - 33 mEq/l) 28 Anion Gap (0 - 20) 6 BUN (7 - 18 mg/dL) 10 Creatinine (0.6 - 1.3 mg/dL) 1.0 POC Creatinine (0.6 - 1.0 mg/dL) 1.0 Glomerular Filtr Rate (90 - 95) 56.7 L Glucose (70 - 110 mg/dL) 157 H POC Glucose (70 - 110 MG/DL) 168 H 134 H 171 H POC Glucose (mg/dL) (MG/DL) 209 Calcium (8.0 - 10.5 mg/dL) 8.6 Magnesium (1.80 - 2.40 mg/dL) 1.81 06/27 1108 Chemistry POC Glucose (70 - 110 MG/DL) 182 H Laboratory Tests 06/28 06/27 0450 1545 Hematology WBC (4.5 - 11.0 x10 3/uL) 9.0 RBC (3.54 - 5.02 x10 6/uL) 2.75 L Hgb (11.0 - 15.0 g/dL) 8.2 L 7.9 L Hct (33.0 - 45.0 %) 25.2 L 24.3 L MCV (81.0 - 99.0 fL) 91.6 MCH (27.0 - 33.0 pg) 29.8 MCHC (33.0 - 37.0 g/dL) 32.5 L RDW (11.5 - 14.5 %) 15.5 H Plt Count (150 - 400 x10 3/uL) 165 MPV (7.0 - 9.0 fL) 10.1 H Neut % (Auto) (56.0 - 77.0 %) 77.4 H Lymph % (Auto) (14.0 - 32.0 %) 10.6 L [place] % (Auto) (4.8 - 9.0 %) 8.6 Eos % (Auto) (0.3 - 3.7 %) 2.7 Baso % (Auto) (0.0 - 2.0 %) 0.3 Neut # (Auto) (2.0 - 7.6 x10 3/uL) 6.99 Lymph # (Auto) (1.0 - 3.8 x10 3/uL) 0.96 L [place] # (Auto) (0.1 - 0.8 x10 3/uL) 0.78 Eos # (Auto) (0.0 - 0.2 x10 3/uL) 0.24 H Baso # (Auto) (0.0 - 0.2 x10 3/uL) 0.03 Abs Immat Gran (auto) (0.00 - 0.03 x10 3/uL) 0. 04 H Add Manual Diff NO Immature Gran % (0.0 - 2.0 %) 0.4 Nucleated RBC % (0 - 0 %) 0.0 Nucleated RBCs # (Man) (0.0 - 0.1 x10 3/uL) 0.0 0 Diagnosis, Assessment Plan Hospital course to date: Ms. Martinez is a 61-year-old female who had an Im pella placed for cardiogenic shock. She has recovered completely and she was ready for the Impella to be removed today. The patient was taken to the operations label clerk, and after removal of Impella, attempts were made to close the common femoral artery defect with Perclose device unsuccessfully. The patient deve loped significant right groin hematoma and hence intraoperative cardiova scular consult was obtained. 1. Exploration of right common femoral artery. 2. Repair of right common femoral artery. 06/26 Doing well, alert and oriented Monitor right groin hematoma. Groin soft, mild t enderness Bilateral feet with palpable pulses Hemodynamically stable, sinus rhythm 70s Hemoglobin dropped to 6.7. 1 unit of RBCs being transfused Obtain right groin arterial ultrasound to rule o ut pseudoaneurysm Pt seen with Dr Whitt 06/27 Remains in stable condition Hemoglobin 7.6 from 6.7 after transfusion of 1 u nit or RBCs Right groin ultrasound negative for pseudoaneury sm Continue to monitor Discussed with Dr Whitt 06/28 Remains in stable condition Hemoglobin 8.2 from 7.6>6.7 Right groin ultrasound negative for pseudoaneury sm FOBT negative Continue to monitor Transfer to [facility] Discussed with Dr Whitt Consultants: cardiology, cardiovascular surgery, critical/waste machine tender, hospitalist at 1219 at 9233 RPT #:[id number] END OF REPORT 2021-06-27 15:19:00-00:00 [facility] Hospitalist Progress Note REPORT#:[id number] REPORT STATUS: Signed DATE:06/27/21 TIME: 1519 PATIENT: TAMY MARTINEZ UNIT #: [id number] ROOM/BED: 3308-1 : 64 AGE: 61 SEX: F ATTEND: Conrado Zeng MD ADM AUTHOR: Brea Mitchell EDUCATION REPORTER * ALL edits or amendments must be made on the Wooop/computer document * Subjective Chief complaint: she complaint of right groin pain Review of Systems Respiratory: Denies: ELLIS (dyspnea on exertion), SOB, wheezing . Cardiovascular: Denies: chest pain, ELLIS (dyspnea on exertion). GI: Denies: abdominal pain, nausea, vomiting. Musculoskeletal: Other musculoskeletal: Reports: other (right groin pain). Objective General VS/I O: Vital Signs: Date Time Temp Pulse Resp B/P B/P Pulse O2 O2 F low FiO2 Mean Ox Delivery Rate 06/27 1124 36.9 82 26 127/54 78 98 Room air 06/27 1100 82 26 127/54 78 98 06/27 1000 78 16 119/58 83 93 06/27 0900 80 14 129/60 86 100 06/27 0800 89 25 120/59 74 98 06/27 0730 37.2 85 22 134/63 86 100 Room air 06/27 0728 86 16 100 06/27 0700 85 22 134/63 91 100 06/27 0630 83 21 100 06/27 0409 92 32 113/53 76 99 06/27 0405 81 17 82/39 56 97 06/27 0400 36.8 06/27 0400 86 18 86/40 58 95 06/27 0300 84 17 97/49 70 96 06/27 0205 83 17 109/53 76 96 06/27 0201 84 20 87/40 58 97 06/27 0100 83 15 103/49 70 95 06/27 0000 37.0 06/27 0000 87 18 108/51 73 98 06/26 2300 84 16 98/46 66 95 06/26 2200 80 17 95/45 65 94 06/26 2108 84 27 104/49 71 97 06/26 2101 84 43 85/42 60 96 06/26 2000 84 30 113/53 76 97 06/26 2000 37.1 06/26 1913 87 24 126/60 86 98 06/26 1904 109 26 86/57 66 93 06/26 1800 86 20 118/54 78 98 06/26 1701 83 17 120/56 81 96 06/26 1600 36.8 88 18 128/58 83 97 24 hour I O ending at 0700: 06/27 0700 06/26 1900 Intake Total 840.00 Output Total 800 1500 Balance -800 -660.00 Intake, IV 50.00 Intake, Oral 440 Intake, Oral 0 Supplement Intake, 350 Packed Cells Number 0 Bowel Movements Output, Urine 800 1500 Patient 96.2 kg 98.43 kg Weight Weight Bed scale Measurement Method PATIENT WEIGHT: Weight (lb): 212 Weight (oz): 1.36 Weight (kg): 96.200 Medications: Active Meds + DC'd Last 24 Hrs Calcium Chloride (CALCIUM CHLORIDE) 1 GM ONCE ON E IV (DC) Sodium Chloride (SODIUM CHLORIDE 0.9%) 100 ML Magnesium Sulfate (MAGNESIUM SULFATE 2GM/SWFI 50 ML) 50 ML ONCE ONE IV ( DC) Potassium Chloride (POTASSIUM CHLORIDE 20MEQ TAB .ER) 20 MEQ ONCE ONE PO (DC) Sodium Bicarbonate (SODIUM BICARBONATE) 100 MEQ ONCE ONE IV (DC) Magnesium Sulfate (MAGNESIUM SULFATE 2GM/SWFI 50 ML) 50 ML ONCE ONE IV ( PEND) Magnesium Sulfate (MAGNESIUM SULFATE 2GM/SWFI 50 ML) 50 ML ONCE ONE IV ( DC) Potassium Chloride (POTASSIUM CHLORIDE 20MEQ TAB .ER) 40 MEQ ONCE ONE PO (DC) Potassium Chloride (POTASSIUM CHLORIDE 20MEQ TAB .ER) 40 MEQ DAILY PRN PRN PO Furosemide (LASIX 40 mg/4 mL INJECTION) 40 MG ON CE ONE IV (DC) Lidocaine (LIDODERM) 1 PATCH DAILY TOPICAL Furosemide (LASIX 20MG INJ) 20 MG BLOOD-DOSE BET WEEN IV (CKD) Insulin Human Lispro (HUMALOG) 0 AC HS SUBQ Dextrose/Water (DEXTROSE 50% W SYRINGE) 25 ML DIR PRN IV (CKD) Dextrose/Water (DEXTROSE 50% W SYRINGE) 50 ML DIR PRN IV (CKD) Glucagon (GLUCAGON) 1 MG ASDIR PRN IM Aspirin (ASPIRIN) 81 MG DAILY PO Clopidogrel Bisulfate (Plavix) 75 MG DAILY PO Duloxetine HCl (CYMBALTA) 20 MG DAILY PO Losartan Potassium (COZAAR) 50 MG DAILY PO Sodium Chloride (SODIUM CHLORIDE 0.9%) 500 ML DA ELADIO MISC Atorvastatin Calcium (LIPITOR) 40 MG BEDTIME PO Gabapentin (NEURONTIN) 600 MG BID PO Insulin Glargine (Lantus/Semglee) 25 UNIT BEDTIM E SUBQ Metoprolol Succinate (TOPROL XL) 12.5 MG BID PO Mupirocin (BACTROBAN 2% 22 GM OINTMENT) 1 APPLIC BID NASAL Glucagon (GLUCAGON) 1 MG ASDIR PRN IM Hydrocodone Bitart/Acetaminophen (NORCO 10/325) 1 TAB Q6H PRN PRN PO Morphine Sulfate (morphine SULFATE) 4 MG Q2H PRN PRN IV Ondansetron HCl (ZOFRAN) 4 MG Q8H PRN PRN IV Physical Exam General appearance: alert, awake, oriented Head/Eyes: atraumatic, normal conjunctiva/sclera , normal eyelids/periorb., normocephalic Neck: full range of motion, non-tender, normal t hyroid, no JVD Cardiovascular: normal heart sounds, regular rat e rhythm Respiratory: aerating well, clear to auscultatio n Abdomen: non-tender, normal bowel sounds, soft, no distention Extremities: moves all, no calf tenderness, no e agata 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, oriented X 3, CNII-XII intact, normal speech, no motor deficits, no sensory deficits Skin: dry, intact, ecchymosis Right groin Results Findings/Data: Laboratory Tests 06/27 1456 Blood Gas Puncture Site L Radial O2 Saturation (90 - 100 %) 96.9 ABG pH (7.35 - 7.45) 7.524 *H ABG pCO2 (35.0 - 45 mmHg) 34.0 L ABG pO2 (80 - 100.0 mmHg) 78.6 L ABG PO2/FiO2 Ratio (mm/Hg) 374.28 ABG HCO3 (22.0 - 26.0 MMOL/L) 28.1 *H ABG Total CO2 29.1 ABG Base Excess (-4.0 - 4.0 MMOL/L) 5.3 H ABG Hematocrit (33.0 - 45.0 %) 19 L ABG Hemoglobin (11.0 - 15.0 G/DL) 6.4 L Nereyda Test Positive Sodium (134 - 147 MEQ/L) 134 Potassium (3.4 - 5.0 MEQ/L) 3.9 Chloride (100 - 108 MEQ/L) 95 L Ionized Calcium (1.12 - 1.32 MMOL/L) 1.10 L Lactic Acid (0.9 - 1.7 mmol/l) 0.9 FiO2 (%) 21 Laboratory Tests 06/27 06/27 06/27 06/27 06/26 1456 1108 0710 0520 2005 Chemistry Sodium (134 - 147 mEq/L) 139 Potassium (3.4 - 5.0 mEq/L) 3.6 Chloride (100 - 108 mEq/L) 106 Carbon Dioxide (21 - 33 mEq/l) 32 Anion Gap (0 - 20) 5 BUN (7 - 18 mg/dL) 10 Creatinine (0.6 - 1.3 mg/dL) 0.8 POC Creatinine (0.6 - 1.0 mg/dL) 1.0 Glomerular Filtr Rate (90 - 95) 73.4 L Glucose (70 - 110 mg/dL) 109 POC Glucose (70 - 110 MG/DL) 182 H 97 173 H POC Glucose (mg/dL) (MG/DL) 209 Calcium (8.0 - 10.5 mg/dL) 7.6 L Magnesium (1.80 - 2.40 mg/dL) 1.72 L Total Bilirubin (0.0 - 1.0 mg/dL) 0.60 AST (15 - 37 IUnit/L) 29 ALT (30 - 65 IUnit/L) 13 L Total Alk Phosphatase (20 - 125 IUnit/L) 59 Total Protein (6.4 - 8.2 g/dL) 5.1 L Albumin (3.4 - 5.0 g/dL) 2.70 L 06/26 1749 Chemistry POC Glucose (70 - 110 MG/DL) 216 H Laboratory Tests 06/27 0520 Hematology WBC (4.5 - 11.0 x10 3/uL) 8.7 RBC (3.54 - 5.02 x10 6/uL) 2.61 L Hgb (11.0 - 15.0 g/dL) 7.6 L Hct (33.0 - 45.0 %) 23.7 L MCV (81.0 - 99.0 fL) 90.8 MCH (27.0 - 33.0 pg) 29.1 MCHC (33.0 - 37.0 g/dL) 32.1 L RDW (11.5 - 14.5 %) 15.2 H Plt Count (150 - 400 x10 3/uL) 130 L MPV (7.0 - 9.0 fL) 9.2 H Neut % (Auto) (56.0 - 77.0 %) 73.1 Lymph % (Auto) (14.0 - 32.0 %) 13.7 L [place] % (Auto) (4.8 - 9.0 %) 9.1 H Eos % (Auto) (0.3 - 3.7 %) 3.2 Baso % (Auto) (0.0 - 2.0 %) 0.3 Neut # (Auto) (2.0 - 7.6 x10 3/uL) 6.33 Lymph # (Auto) (1.0 - 3.8 x10 3/uL) 1.19 [place] # (Auto) (0.1 - 0.8 x10 3/uL) 0.79 Eos # (Auto) (0.0 - 0.2 x10 3/uL) 0.28 H Baso # (Auto) (0.0 - 0.2 x10 3/uL) 0.03 Abs Immat Gran (auto) (0.00 - 0.03 x10 3/uL) 0. 05 H Add Manual Diff NO Immature Gran % (0.0 - 2.0 %) 0.6 Nucleated RBC % (0 - 0 %) 0.0 Nucleated RBCs # (Man) (0.0 - 0.1 x10 3/uL) 0.0 0 Microbiology Date/Time Procedure - Status Source Growth 06/26 1902 Occult Blood - COMP STOOL Diagnosis, Assessment Plan Consultants: cardiology, cardiovascular surgery, critical/waste machine tender, hospitalist Free Text DxA P Notes Free text DxA P notes: angina /CAD hypotension -- cardiagenic HTN leucocytosis DM HLD anemia -- due to acute blood loss angina/CAD [facility] -- PCI cardiology consult continue home med plavix /ASA continue home medication hypotension cardiogenic--impella was inserted resolve BP-- stable leucocytosis no sign of infection monitor cbc DM- sliding scale continue home med HTN-- monitor stable HLD -- continue home med anemia -- due to acute blood loss surgery -- 06/24 1. Exploration of right common femoral artery. 2. Repair of right common femoral artery. 06/25 -- she complaint of neck pain -lidocaine patch -- she had artery repair surgery yesterday -- Hb -9.2--7.8 -- monitor BP and H H 06/26.... Anemia hemoglobin 6.7, s/p 1 unit of bl ood ........ hypomagnesia magnesium replaced ........ complaining of sore shortness of breath but able to maintain saturation above 90% on room air ......... labs in a.m. 06/27.... Hemoglobin improved 7.6 today ........ magnesium replaced ........ vitals stable Quality: Gen Med Crit Care Current Medications Current medication review: Current Medications Sig/Nandini Start time Last Medication Dose Route Stop Time Status Admin Dexamethasone Sodium 0 .STK-MED ONE 06/24 173 DC Phosphate .ROUTE Lidocaine HCl 0 .STK-MED ONE 06/24 173 DC .ROUTE Ondansetron HCl 0 .STK-MED ONE 06/24 1732 DC .ROUTE Sevoflurane 0 .STK-MED ONE 06/24 1732 DC INH Epinephrine 0 .STK-MED ONE 06/24 1713 DC 06/24 IV 1715 Sodium Bicarbonate 0 .STK-MED ONE 06/24 1713 DC 06/24 IV 1715 Thrombin 0 .STK-MED ONE 06/24 1703 DC TOPICAL Sodium Chloride 500 ML .STK-MED ONE 06/24 1650 DC IV Etomidate 0 .STK-MED ONE 06/24 1648 DC IV Heparin Sodium/ 1,000 ML .STK-MED ONE 06/24 164 1 DC 06/24 Sodium Chloride IV 1705 Insulin Human Lispro 0 AC HS 06/24 1630 AC SUBQ 07/24 1629 Methylprednisolone 0 .STK-MED ONE 06/24 1629 DC 06/24 Sodium Succinate IV 1705 Norepinephrine 250 ML .STK-MED ONE 06/24 1626 DC 06/24 Bitartrate IV 1705 Phenylephrine HCl 0 .STK-MED ONE 06/24 1607 DC 06/24 I-CHAVEZ 1705 Fentanyl Citrate 0 .STK-MED ONE 06/24 1533 DC 0 06/24 .ROUTE 1539 Heparin Sodium/ 500 ML .STK-MED ONE 06/24 1533 DC 06/24 Sodium Chloride IV 1539 Lidocaine HCl 0 .STK-MED ONE 06/24 1533 DC 04 4 .ROUTE 1539 Midazolam HCl 0 .STK-MED ONE 06/24 1532 DC 06/11 4 .ROUTE 1539 Dextrose/Water 25 ML ASDIR PRN 06/24 1345 CKD IV 07/24 1344 Dextrose/Water 50 ML ASDIR PRN 06/24 1345 CKD IV 07/24 1344 Glucagon 1 MG ASDIR PRN 06/24 1345 AC IM 07/24 1344 Aspirin 81 MG DAILY 06/24 0900 AC 06/24 PO 07/24 0859 0916 Clopidogrel Bisulfate 75 MG DAILY 06/24 0900 AC 06/24 PO 07/24 0859 1435 Duloxetine HCl 20 MG DAILY 06/24 0900 AC 06/24 PO 07/24 0859 0916 Isosorbide Dinitrate 60 MG DAILY 06/24 0900 DA 06/24 PO 07/24 0859 0917 Losartan Potassium 50 MG DAILY 06/24 0900 AC PO 07/24 0859 0916 Sodium Chloride 500 ML DAILY 06/24 0900 AC MISC 07/24 0859 Magnesium Sulfate 50 ML ONCE ONE 06/24 0830 DC 06/24 IV 06/24 1029 0921 Atorvastatin Calcium 40 MG BEDTIME 06/23 2100 AC 06/23 PO 07/23 205 2032 Gabapentin 600 MG BID 06/23 2100 AC 06/24 PO 07/23 205 0916 Insulin Glargine 25 UNIT BEDTIME 06/23 2100 AC 06/23 SUBQ 07/23 2059 2030 Metoprolol Succinate 12.5 MG BID 06/23 2100 AC 06/24 PO 07/23 2059 0917 Mupirocin 1 APPLIC BID 06/23 2100 AC 06/24 NASAL 06/28 0901 0916 Insulin Human Lispro 0 AC HS 06/23 1800 DC SUBQ 07/23 1749 0916 Dextrose/Water 25 ML ASDIR PRN 06/23 1730 DC IV 07/23 1729 Dextrose/Water 50 ML ASDIR PRN 06/23 1730 DC IV 07/23 1729 Glucagon 1 MG ASDIR PRN 06/23 1730 AC IM 07/23 1729 Heparin Sodium 0 ASDIR PRN 06/23 1730 AC IV 07/23 1729 Heparin Sodium 500 ML ASDIR 06/23 1730 CKD 06/11 4 (Porcine) IV 07/23 1729 0301 Hydrocodone Bitart/ 1 TAB Q6H PRN PRN 06/23 173 0 AC Acetaminophen PO 06/28 1729 Morphine Sulfate 4 MG Q2H PRN PRN 06/23 1730 AC 06/24 IV 06/28 1729 0634 Ondansetron HCl 4 MG Q8H PRN PRN 06/23 1730 AC IV 07/23 1729 Sodium Chloride 1,000 ML .Q10H 06/23 1730 AC IV 07/23 1729 1436 Atropine Sulfate 0.5 MG ASDIR PRN 06/23 1430 DC IV 06/24 1423 Heparin Sodium 12,500 UNIT DAILY PRN PRN 06/23 1430 AC Dextrose/Water 500 ML I-CATHETER 07/23 1429 Heparin Sodium/ 500 ML DAILY PRN PRN 06/23 1430 AC 06/23 Dextrose I-CATHETER 07/23 1429 2302 Sodium Chloride 1,000 ML .[id number] 06/23 1430 DC 06/23 IV 06/24 0349 1755 Sodium Chloride 500 ML ASDIR PRN 06/23 1430 DC IV 06/24 1423 Home Medications: GABAPENTIN (NEURONTIN) 600 MG PO BID FOLIC ACID 1 MG PO DAILY METOPROLOL SUCC XL (TOPROL XL) 12.5 MG PO BID ISOSORBIDE DINITRATE (ISORDIL) 60 MG PO DAILY ASPIRIN 81 MG PO DAILY DULoxetine DR (CYMBALTA) 20 MG PO DAILY LOSARTAN (COZAAR) 50 MG PO DAILY ATORVASTATIN (LIPITOR) 40 MG PO BEDTIME METHOTREXATE (RHEUMATREX) 2.5 MG PO Q7D INSULIN ASPART (NovoLOG) Insulin Degludec (TRESIBA FLEXTOUCH U-100 (3mL)) 26 UNITS SUBQ DAILY HYDROcodone/APAP (NORCO 10/325) 1 TAB PO Q6H PRN PRN PAIN [XELJANZ] (Unknown Dose) PO DAILY NITROGLYCERIN (NITROSTAT) 0.4 MG SL Q5M PRN PRN ANGINA CLOPIDOGREL (PLAVIX) 75 MG PO DAILY Electronically Signed by Brea Mitchell NP on at 1522 RPT #:[id number] END OF REPORT 2021-06-27 11:25:00-00:00 [facility] Cardiothoracic Surgery Prog REPORT#:[id number] REPORT STATUS: Signed DATE:06/27/21 TIME: 1125 PATIENT: TAMY MARTINEZ UNIT #: [id number] ROOM/BED: [place] [address] : 64 AGE: 61 SEX: F ATTEND: Conrado Zeng MD ADM AUTHOR: Loly Agee EDUCATION REPORTER * ALL edits or amendments must be made on the [employer]/computer document * General Post-op: day 3 Status post: 06/24 S/p 1. Exploration of right common femoral artery. 2. Repair of right common femoral artery. Subjective Chief Complaint: Follow up right groin exploration Review of Systems Constitutional: Denies: fever, malaise. Allergy/Immun: Denies: allergic reaction. Respiratory: Denies: SOB. GI: Denies: abdominal pain, nausea, vomiting. Heme: Reports: other (right groin tenderness ). Denies : bleeding. Neuro: Denies: dizziness, headache, vision change. Objective General VS/I O Vital Signs Date Temp Pulse Resp B/P B/P Mean Pulse Ox FiO2 06/26-06/27 98.2-98.9 78-109 14-43 82-134/39-63 56-91 93-100 Last Documented: Result Date Time Pulse Ox 98 06/27 1124 B/P 127/54 06/27 1124 B/P Mean 78 06/27 1124 O2 Delivery Room air 06/27 1124 Temp 98.5 06/27 1124 Pulse 82 06/27 1124 Resp 26 06/27 1124 O2 Flow Rate 0 06/26 1200 FiO2 28 06/24 0915 24 hour I O ending at 0700: 06/27 0700 06/26 1900 Intake Total 840.00 Output Total 800 1500 Balance -800 -660.00 Intake, IV 50.00 Intake, Oral 440 Intake, Oral 0 Supplement Intake, 350 Packed Cells Number 0 Bowel Movements Output, Urine 800 1500 Patient 212 lb 217 lb Weight Weight Bed scale Measurement Method PATIENT WEIGHT: Weight (lb): 212 Weight (oz): 1.36 Weight (kg): 96.200 Physical Exam General appearance: alert, oriented, pleasant, m ental status normal, no respiratory distress Wound/incision: Location: right groin Site condition: dressing intact HEENT: anicteric Neck: supple/no meningismus Cardiovascular: normal heart sounds, regular rat e rhythm Respiratory: aerating well, clear to auscultatio n, symmetric expansion, no distress Abdomen: soft, non-tender, no distention Genitourinary: hilliard Extremities: pedal pulses, moves all 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, oriented X 3, normal speech, n o motor deficits Psychiatry: normal affect, normal mood Current Medications Medications: Active Meds + DC'd Last 24 Hrs Magnesium Sulfate (MAGNESIUM SULFATE 2GM/SWFI 50 ML) 50 ML ONCE ONE IV Potassium Chloride (POTASSIUM CHLORIDE 20MEQ TAB .ER) 40 MEQ ONCE ONE PO (DC) Potassium Chloride (POTASSIUM CHLORIDE 20MEQ TAB .ER) 40 MEQ DAILY PRN PRN PO Furosemide (LASIX 40 mg/4 mL INJECTION) 40 MG ON CE ONE IV (DC) Lidocaine (LIDODERM) 1 PATCH DAILY TOPICAL Furosemide (LASIX 20MG INJ) 20 MG BLOOD-DOSE BET WEEN IV (CKD) Insulin Human Lispro (HUMALOG) 0 AC HS SUBQ Dextrose/Water (DEXTROSE 50% W SYRINGE) 25 ML DIR PRN IV (CKD) Dextrose/Water (DEXTROSE 50% W SYRINGE) 50 ML DIR PRN IV (CKD) Glucagon (GLUCAGON) 1 MG ASDIR PRN IM Aspirin (ASPIRIN) 81 MG DAILY PO Clopidogrel Bisulfate (Plavix) 75 MG DAILY PO Duloxetine HCl (CYMBALTA) 20 MG DAILY PO Losartan Potassium (COZAAR) 50 MG DAILY PO Sodium Chloride (SODIUM CHLORIDE 0.9%) 500 ML DA ELADIO MISC Atorvastatin Calcium (LIPITOR) 40 MG BEDTIME PO Gabapentin (NEURONTIN) 600 MG BID PO Insulin Glargine (Lantus/Semglee) 25 UNIT BEDTIM E SUBQ Metoprolol Succinate (TOPROL XL) 12.5 MG BID PO Mupirocin (BACTROBAN 2% 22 GM OINTMENT) 1 APPLIC BID NASAL Glucagon (GLUCAGON) 1 MG ASDIR PRN IM Hydrocodone Bitart/Acetaminophen (NORCO 10/325) 1 TAB Q6H PRN PRN PO Morphine Sulfate (morphine SULFATE) 4 MG Q2H PRN PRN IV Ondansetron HCl (ZOFRAN) 4 MG Q8H PRN PRN IV Results Findings/Data: Laboratory Tests 06/27 06/27 06/27 06/26 06/26 1108 0710 052005 1749 Chemistry Sodium (134 - 147 mEq/L) 139 Potassium (3.4 - 5.0 mEq/L) 3.6 Chloride (100 - 108 mEq/L) 106 Carbon Dioxide (21 - 33 mEq/l) 32 Anion Gap (0 - 20) 5 BUN (7 - 18 mg/dL) 10 Creatinine (0.6 - 1.3 mg/dL) 0.8 Glomerular Filtr Rate (90 - 95) 73.4 L Glucose (70 - 110 mg/dL) 109 POC Glucose (70 - 110 MG/DL) 182 H 97 173 H 216 H Calcium (8.0 - 10.5 mg/dL) 7.6 L Magnesium (1.80 - 2.40 mg/dL) 1.72 L Total Bilirubin (0.0 - 1.0 mg/dL) 0.60 AST (15 - 37 IUnit/L) 29 ALT (30 - 65 IUnit/L) 13 L Total Alk Phosphatase (20 - 125 IUnit/L) 59 Total Protein (6.4 - 8.2 g/dL) 5.1 L Albumin (3.4 - 5.0 g/dL) 2.70 L 06/26 1209 Chemistry POC Glucose (70 - 110 MG/DL) 139 H Laboratory Tests 06/27 0520 Hematology WBC (4.5 - 11.0 x10 3/uL) 8.7 RBC (3.54 - 5.02 x10 6/uL) 2.61 L Hgb (11.0 - 15.0 g/dL) 7.6 L Hct (33.0 - 45.0 %) 23.7 L MCV (81.0 - 99.0 fL) 90.8 MCH (27.0 - 33.0 pg) 29.1 MCHC (33.0 - 37.0 g/dL) 32.1 L RDW (11.5 - 14.5 %) 15.2 H Plt Count (150 - 400 x10 3/uL) 130 L MPV (7.0 - 9.0 fL) 9.2 H Neut % (Auto) (56.0 - 77.0 %) 73.1 Lymph % (Auto) (14.0 - 32.0 %) 13.7 L [place] % (Auto) (4.8 - 9.0 %) 9.1 H Eos % (Auto) (0.3 - 3.7 %) 3.2 Baso % (Auto) (0.0 - 2.0 %) 0.3 Neut # (Auto) (2.0 - 7.6 x10 3/uL) 6.33 Lymph # (Auto) (1.0 - 3.8 x10 3/uL) 1.19 [place] # (Auto) (0.1 - 0.8 x10 3/uL) 0.79 Eos # (Auto) (0.0 - 0.2 x10 3/uL) 0.28 H Baso # (Auto) (0.0 - 0.2 x10 3/uL) 0.03 Abs Immat Gran (auto) (0.00 - 0.03 x10 3/uL) 0. 05 H Add Manual Diff NO Immature Gran % (0.0 - 2.0 %) 0.6 Nucleated RBC % (0 - 0 %) 0.0 Nucleated RBCs # (Man) (0.0 - 0.1 x10 3/uL) 0.0 0 Microbiology Date/Time Procedure - Status Source Growth 06/26 1902 Occult Blood - COMP STOOL Diagnosis, Assessment Plan Hospital course to date: Ms. Martinez is a 61-year-old female who had an Im pella placed for cardiogenic shock. She has recovered completely and she was ready for the Impella to be removed today. The patient was taken to the operations label clerk, and after removal of Impella, attempts were made to close the common femoral artery defect with Perclose device unsuccessfully. The patient deve loped significant right groin hematoma and hence intraoperative cardiova scular consult was obtained. 1. Exploration of right common femoral artery. 2. Repair of right common femoral artery. 06/26 Doing well, alert and oriented Monitor right groin hematoma. Groin soft, mild t enderness Bilateral feet with palpable pulses Hemodynamically stable, sinus rhythm 70s Hemoglobin dropped to 6.7. 1 unit of RBCs being transfused Obtain right groin arterial ultrasound to rule o ut pseudoaneurysm Pt seen with Dr Whitt 06/27 Remains in stable condition Hemoglobin 7.6 from 6.7 after transfusion of 1 u nit or RBCs Right groin ultrasound negative for pseudoaneury sm Continue to monitor Discussed with Dr Whitt Consultants: cardiology, cardiovascular surgery, critical/waste machine tender, hospitalist at 1310 at 1219 RPT #:[id number] END OF REPORT 2021-06-27 09:52:00-00:00 [facility] ([facility]) Cardiology Progress Note REPORT#:[id number] REPORT STATUS: Signed DATE:06/27/21 TIME: 951 PATIENT: TAMY MARTINEZ UNIT #: [id number] ROOM/BED: [place] [address] : 64 AGE: 61 SEX: F ATTEND: Conrado Zeng MD ADM AUTHOR: Zoraida Felder ACNP * ALL edits or amendments must be made on the [employer]/computer document * Subjective Patient reports: No: complaints. Objective General VS/I O: 24 hour I O ending at 0700: 06/27 0700 06/26 1900 Intake Total 840.00 Output Total 800 1500 Balance -800 -660.00 Intake, IV 50.00 Intake, Oral 440 Intake, Oral 0 Supplement Intake, 350 Packed Cells Number 0 Bowel Movements Output, Urine 800 1500 Patient 96.2 kg 98.43 kg Weight Weight Bed scale Measurement Method Vital Signs: Date Time Temp Pulse Resp B/P B/P Pulse O2 O2 F low FiO2 Mean Ox Delivery Rate 06/27 0730 37.2 85 22 134/63 86 100 Room air 06/27 0728 86 16 100 06/27 0700 85 22 134/63 91 100 06/27 0630 83 21 100 06/27 0409 92 32 113/53 76 99 06/27 0405 81 17 82/39 56 97 06/27 0400 36.8 06/27 0400 86 18 86/40 58 95 06/27 0300 84 17 97/49 70 96 06/27 0205 83 17 109/53 76 96 06/27 0201 84 20 87/40 58 97 06/27 0100 83 15 103/49 70 95 06/27 0000 37.0 06/27 0000 87 18 108/51 73 98 06/26 2300 84 16 98/46 66 95 04/16 2200 80 17 95/45 65 94 06/26 2108 84 27 104/49 71 97 06/26 2101 84 43 85/42 60 96 06/26 2000 84 30 113/53 76 97 06/26 2000 37.1 06/26 1913 87 24 126/60 86 98 06/26 1904 109 26 86/57 66 93 06/26 1800 86 20 118/54 78 98 06/26 1701 83 17 120/56 81 96 06/26 1600 36.8 88 18 128/58 83 97 16 1500 83 18 107/52 75 97 06/26 1400 78 16 119/56 80 99 06/26 1300 78 21 120/56 80 94 06/26 1200 37.2 79 16 118/54 78 96 0 06/26 1101 82 18 134/53 77 06/26 1000 77 13 116/55 79 92 PATIENT WEIGHT: Weight (lb): 212 Weight (oz): 1.36 Weight (kg): 96.200 Medications: Active Meds + DC'd Last 24 Hrs Lidocaine (LIDODERM) 1 PATCH DAILY TOPICAL Furosemide (LASIX 20MG INJ) 20 MG BLOOD-DOSE BET WEEN IV (CKD) Insulin Human Lispro (HUMALOG) 0 AC HS SUBQ Dextrose/Water (DEXTROSE 50% W SYRINGE) 25 ML DIR PRN IV (CKD) Dextrose/Water (DEXTROSE 50% W SYRINGE) 50 ML DIR PRN IV (CKD) Glucagon (GLUCAGON) 1 MG ASDIR PRN IM Aspirin (ASPIRIN) 81 MG DAILY PO Clopidogrel Bisulfate (Plavix) 75 MG DAILY PO Duloxetine HCl (CYMBALTA) 20 MG DAILY PO Losartan Potassium (COZAAR) 50 MG DAILY PO Sodium Chloride (SODIUM CHLORIDE 0.9%) 500 ML DA ELADIO MISC Atorvastatin Calcium (LIPITOR) 40 MG BEDTIME PO Gabapentin (NEURONTIN) 600 MG BID PO Insulin Glargine (Lantus/Semglee) 25 UNIT BEDTIM E SUBQ Metoprolol Succinate (TOPROL XL) 12.5 MG BID PO Mupirocin (BACTROBAN 2% 22 GM OINTMENT) 1 APPLIC BID NASAL Glucagon (GLUCAGON) 1 MG ASDIR PRN IM Hydrocodone Bitart/Acetaminophen (NORCO 10/325) 1 TAB Q6H PRN PRN PO Morphine Sulfate (morphine SULFATE) 4 MG Q2H PRN PRN IV Ondansetron HCl (ZOFRAN) 4 MG Q8H PRN PRN IV Physical Exam General appearance: alert, awake, oriented, no a cute distress Neck: non-tender, no JVD Cardiovascular: CV assessment: regular rate and rhythm Respiratory: decreased breath sounds, on oxygen, no distress Abdomen: non-tender Genitourinary: hilliard, urine Lower extremity: LE assessment: edema (face and hands), no edema Musculoskeletal: normal inspection 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, oriented X 3, normal speech Skin: dry, intact, normal color, normal temperat ure Wound/incision: Location: Rgroin bruise, tender Psychiatry: normal affect, normal judgment/insig ht, normal mood, no hallucinations Results Findings/Data: Laboratory Tests 06/27 06/27 06/26 06/26 06/26 0710 0520 2005 1749 1209 Chemistry Sodium (134 - 147 mEq/L) 139 Potassium (3.4 - 5.0 mEq/L) 3.6 Chloride (100 - 108 mEq/L) 106 Carbon Dioxide (21 - 33 mEq/l) 32 Anion Gap (0 - 20) 5 BUN (7 - 18 mg/dL) 10 Creatinine (0.6 - 1.3 mg/dL) 0.8 Glomerular Filtr Rate (90 - 95) 73.4 L Glucose (70 - 110 mg/dL) 109 POC Glucose (70 - 110 MG/DL) 97 173 H 216 H 139 H Calcium (8.0 - 10.5 mg/dL) 7.6 L Magnesium (1.80 - 2.40 mg/dL) 1.72 L Total Bilirubin (0.0 - 1.0 mg/dL) 0.60 AST (15 - 37 IUnit/L) 29 ALT (30 - 65 IUnit/L) 13 L Total Alk Phosphatase (20 - 125 IUnit/L) 59 Total Protein (6.4 - 8.2 g/dL) 5.1 L Albumin (3.4 - 5.0 g/dL) 2.70 L Laboratory Tests 06/27 0520 Hematology WBC (4.5 - 11.0 x10 3/uL) 8.7 RBC (3.54 - 5.02 x10 6/uL) 2.61 L Hgb (11.0 - 15.0 g/dL) 7.6 L Hct (33.0 - 45.0 %) 23.7 L MCV (81.0 - 99.0 fL) 90.8 MCH (27.0 - 33.0 pg) 29.1 MCHC (33.0 - 37.0 g/dL) 32.1 L RDW (11.5 - 14.5 %) 15.2 H Plt Count (150 - 400 x10 3/uL) 130 L MPV (7.0 - 9.0 fL) 9.2 H Neut % (Auto) (56.0 - 77.0 %) 73.1 Lymph % (Auto) (14.0 - 32.0 %) 13.7 L [place] % (Auto) (4.8 - 9.0 %) 9.1 H Eos % (Auto) (0.3 - 3.7 %) 3.2 Baso % (Auto) (0.0 - 2.0 %) 0.3 Neut # (Auto) (2.0 - 7.6 x10 3/uL) 6.33 Lymph # (Auto) (1.0 - 3.8 x10 3/uL) 1.19 [place] # (Auto) (0.1 - 0.8 x10 3/uL) 0.79 Eos # (Auto) (0.0 - 0.2 x10 3/uL) 0.28 H Baso # (Auto) (0.0 - 0.2 x10 3/uL) 0.03 Abs Immat Gran (auto) (0.00 - 0.03 x10 3/uL) 0. 05 H Add Manual Diff NO Immature Gran % (0.0 - 2.0 %) 0.6 Nucleated RBC % (0 - 0 %) 0.0 Nucleated RBCs # (Man) (0.0 - 0.1 x10 3/uL) 0.0 0 Microbiology Date/Time Procedure - Status Source Growth 06/26 190 Occult Blood - COMP STOOL Laboratory Tests 06/27 0520 Chemistry Magnesium (1.80 - 2.40 mg/dL) 1.72 L Telemetry Interpretation: sinus rhythm Diagnosis, Assessment Plan Plan discussed with: patient, nurse Free Text DxA P Notes Free Text DxA P Notes: 61 YO female with MHx of CAD with prior PCI/MIKHAIL to LAD (05/2021), HTN, DM, CVA, HLD who has been having angina. She was admitted electively on 06/23/21 for staged PCI to right PDA and RCA. The patient had successul PCI of the ostial PDA with MIKHAIL. However, the patient developed dissection of the proximal to mid RCA post balloon angioplasty. Im pella LVAD was inserted for stability. This morning the patient was doing well, awake and alert, no chest pain, and no SOB. Had episode of hypotension which responded to 500 ml IVF challenge. 1. Coronary artery disease 05/12/2021: 3 stents to LAD 06/23/21: PCI/MIKHAIL of ostial PDA RCA dissection s/p Impella LVAD support - dc'd on 06/24 continue DAPT, BB, statin 2. Hypertension - normotensive hypotension resolved continue BB, resume losartan 3. Diabetes mellitus continue lantus and insulin sliding scale 4. Hyperlipidemia continue statin 5. RCFA bleeding during Impella removal s/p repa ir R groin bruise hgb 7.8->7.3->6.7->7.6 s/p i unit 06/26 R groin US no hematoma no pseudoaneurysm 6. Fluid overload - resolving 24H UO 2.3L, negative FB 1.4L will give another IV lasix 40 mg x1 Replace low potassium and low magnesium PT/OT, mobilize OOB Transfer to CV1 DC hilliard catheter at 1040 RPT #:[id number] END OF REPORT 2021-06-27 09:52:00-00:00 [facility] Cardiology Progress Note REPORT#:[id number] REPORT STATUS: Signed DATE:06/27/21 TIME: 951 PATIENT: TAMY MARTINEZ UNIT #: [id number] ROOM/BED: [place] [address] : 64 AGE: 61 SEX: F ATTEND: Conrado Zeng MD ADM AUTHOR: Zoraida Felder CNP * ALL edits or amendments must be made on the el [employer]/computer document * Subjective Patient reports: No: complaints. Objective General VS/I O: 24 hour I O ending at 0700: 06/27 0700 06/26 1900 Intake Total 840.00 Output Total 800 1500 Balance -800 -660.00 Intake, IV 50.00 Intake, Oral 440 Intake, Oral 0 Supplement Intake, 350 Packed Cells Number 0 Bowel Movements Output, Urine 800 1500 Patient 96.2 kg 98.43 kg Weight Weight Bed scale Measurement Method Vital Signs: Date Time Temp Pulse Resp B/P B/P Pulse O2 O2 F low FiO2 Mean Ox Delivery Rate 06/27 0730 37.2 85 22 134/63 86 100 Room air 06/27 0728 86 16 100 06/27 0700 85 22 134/63 91 100 06/27 0630 83 21 100 06/27 0409 92 32 113/53 76 99 06/27 0405 81 17 82/39 56 97 06/27 0400 36.8 06/27 0400 86 18 86/40 58 95 06/27 0300 84 17 97/49 70 96 06/27 0205 83 17 109/53 76 96 06/27 0201 84 20 87/40 58 97 06/27 0100 83 15 103/49 70 95 06/27 0000 37.0 06/27 0000 87 18 108/51 73 98 06/26 2300 84 16 98/46 66 95 06/26 2200 80 17 95/45 65 94 06/26 2108 84 27 104/49 71 97 06/26 2101 84 43 85/42 60 96 06/26 2001 84 30 113/53 76 97 06/27 1999 37.1 06/26 1913 87 24 126/60 86 98 06/26 1904 109 26 86/57 66 93 06/26 1800 86 20 118/54 78 98 06/26 1701 83 17 120/56 81 96 06/26 1600 36.8 88 18 128/58 83 97 06/26 1500 83 18 107/52 75 97 06/26 1400 78 16 119/56 80 99 06/26 1300 78 21 120/56 80 94 06/26 1200 37.2 79 16 118/54 78 96 0 06/26 1101 82 18 134/53 77 04 1000 77 13 116/55 79 92 PATIENT WEIGHT: Weight (lb): 212 Weight (oz): 1.36 Weight (kg): 96.200 Medications: Active Meds + DC'd Last 24 Hrs Lidocaine (LIDODERM) 1 PATCH DAILY TOPICAL Furosemide (LASIX 20MG INJ) 20 MG BLOOD-DOSE BET WEEN IV (CKD) Insulin Human Lispro (HUMALOG) 0 AC HS SUBQ Dextrose/Water (DEXTROSE 50% W SYRINGE) 25 ML DIR PRN IV (CKD) Dextrose/Water (DEXTROSE 50% W SYRINGE) 50 ML DIR PRN IV (CKD) Glucagon (GLUCAGON) 1 MG ASDIR PRN IM Aspirin (ASPIRIN) 81 MG DAILY PO Clopidogrel Bisulfate (Plavix) 75 MG DAILY PO Duloxetine HCl (CYMBALTA) 20 MG DAILY PO Losartan Potassium (COZAAR) 50 MG DAILY PO Sodium Chloride (SODIUM CHLORIDE 0.9%) 500 ML DA ELADIO MISC Atorvastatin Calcium (LIPITOR) 40 MG BEDTIME PO Gabapentin (NEURONTIN) 600 MG BID PO Insulin Glargine (Lantus/Semglee) 25 UNIT BEDTIM E SUBQ Metoprolol Succinate (TOPROL XL) 12.5 MG BID PO Mupirocin (BACTROBAN 2% 22 GM OINTMENT) 1 APPLIC BID NASAL Glucagon (GLUCAGON) 1 MG ASDIR PRN IM Hydrocodone Bitart/Acetaminophen (NORCO 10/325) 1 TAB Q6H PRN PRN PO Morphine Sulfate (morphine SULFATE) 4 MG Q2H PRN PRN IV Ondansetron HCl (ZOFRAN) 4 MG Q8H PRN PRN IV Physical Exam General appearance: alert, awake, oriented, no a cute distress Neck: non-tender, no JVD Cardiovascular: CV assessment: regular rate and rhythm Respiratory: decreased breath sounds, on oxygen, no distress Abdomen: non-tender Genitourinary: hilliard, urine Lower extremity: LE assessment: edema (face and hands), no edema Musculoskeletal: normal inspection 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, oriented X 3, normal speech Skin: dry, intact, normal color, normal temperat ure Wound/incision: Location: Rgroin bruise, tender Psychiatry: normal affect, normal judgment/insig ht, normal mood, no hallucinations Results Findings/Data: Laboratory Tests 06/27 06/27 06/26 06/26 06/26 0710 0520 2005 1749 1209 Chemistry Sodium (134 - 147 mEq/L) 139 Potassium (3.4 - 5.0 mEq/L) 3.6 Chloride (100 - 108 mEq/L) 106 Carbon Dioxide (21 - 33 mEq/l) 32 Anion Gap (0 - 20) 5 BUN (7 - 18 mg/dL) 10 Creatinine (0.6 - 1.3 mg/dL) 0.8 Glomerular Filtr Rate (90 - 95) 73.4 L Glucose (70 - 110 mg/dL) 109 POC Glucose (70 - 110 MG/DL) 97 173 H 216 H 13 9 H Calcium (8.0 - 10.5 mg/dL) 7.6 L Magnesium (1.80 - 2.40 mg/dL) 1.72 L Total Bilirubin (0.0 - 1.0 mg/dL) 0.60 AST (15 - 37 IUnit/L) 29 ALT (30 - 65 IUnit/L) 13 L Total Alk Phosphatase (20 - 125 IUnit/L) 59 Total Protein (6.4 - 8.2 g/dL) 5.1 L Albumin (3.4 - 5.0 g/dL) 2.70 L Laboratory Tests 06/27 0520 Hematology WBC (4.5 - 11.0 x10 3/uL) 8.7 RBC (3.54 - 5.02 x10 6/uL) 2.61 L Hgb (11.0 - 15.0 g/dL) 7.6 L Hct (33.0 - 45.0 %) 23.7 L MCV (81.0 - 99.0 fL) 90.8 MCH (27.0 - 33.0 pg) 29.1 MCHC (33.0 - 37.0 g/dL) 32.1 L RDW (11.5 - 14.5 %) 15.2 H Plt Count (150 - 400 x10 3/uL) 130 L MPV (7.0 - 9.0 fL) 9.2 H Neut % (Auto) (56.0 - 77.0 %) 73.1 Lymph % (Auto) (14.0 - 32.0 %) 13.7 L [place] % (Auto) (4.8 - 9.0 %) 9.1 H Eos % (Auto) (0.3 - 3.7 %) 3.2 Baso % (Auto) (0.0 - 2.0 %) 0.3 Neut # (Auto) (2.0 - 7.6 x10 3/uL) 6.33 Lymph # (Auto) (1.0 - 3.8 x10 3/uL) 1.19 [place] # (Auto) (0.1 - 0.8 x10 3/uL) 0.79 Eos # (Auto) (0.0 - 0.2 x10 3/uL) 0.28 H Baso # (Auto) (0.0 - 0.2 x10 3/uL) 0.03 Abs Immat Gran (auto) (0.00 - 0.03 x10 3/uL) 0 .05 H Add Manual Diff NO Immature Gran % (0.0 - 2.0 %) 0.6 Nucleated RBC % (0 - 0 %) 0.0 Nucleated RBCs # (Man) (0.0 - 0.1 x10 3/uL) 0.0 0 Microbiology Date/Time Procedure - Status Source Growth 06/26 190 Occult Blood - COMP STOOL Laboratory Tests 06/27 0520 Chemistry Magnesium (1.80 - 2.40 mg/dL) 1.72 L Telemetry Interpretation: sinus rhythm Diagnosis, Assessment Plan Plan discussed with: patient, nurse Free Text DxA P Notes Free Text DxA P Notes: 61 YO female with MHx of CAD with prior PCI/MIKHAIL to LAD (05/2021), HTN, DM, CVA, HLD who has been having angina. She was admitted electively on 06/23/21 for staged PCI to right PDA and RCA. The patient had successul PCI of the ostial PDA with MIKHAIL. However, the patient developed dissection of the proximal to mid RCA post balloon angioplasty. Im pella LVAD was inserted for stability. This morning the patient was doing well, awake and alert, no chest pain, and no SOB. Had episode of hypotension which responded to 500 ml IVF challenge. 1. Coronary artery disease 05/12/2021: 3 stents to LAD 06/23/21: PCI/MIKHAIL of ostial PDA RCA dissection s/p Impella LVAD support - dc'd on 06/24 continue DAPT, BB, statin 2. Hypertension - normotensive hypotension resolved continue BB, resume losartan 3. Diabetes mellitus continue lantus and insulin sliding scale 4. Hyperlipidemia continue statin 5. RCFA bleeding during Impella removal s/p repa ir R groin bruise hgb 7.8->7.3->6.7->7.6 s/p i unit 06/26 R groin US no hematoma no pseudoaneurysm 6. Fluid overload - resolving 24H UO 2.3L, negative FB 1.4L will give another IV lasix 40 mg x1 Replace low potassium and low magnesium PT/OT, mobilize OOB Transfer to CV1 DC hilliard catheter at 1040 Electronically Signed by Inga Robertson MD on at 0802 RPT #:[id number] END OF REPORT 2021-06-26 15:01:00-00:00 [facility] ([facility] Hospitalist Progress Note REPORT#:[id number] REPORT STATUS: Signed DATE:06/26/21 TIME: 1501 PATIENT: TAMY MARTINEZ UNIT #: [id number] ROOM/BED: [place] [id number] : 64 AGE: 61 SEX: F ATTEND: Conrado Zeng MD ADM AUTHOR: Brea Mitchell EDUCATION REPORTER * ALL edits or amendments must be made on the [employer] document * Subjective Chief complaint: she complaint of right groin pain and shortness of breath Review of Systems Respiratory: Reports: SOB. Denies: ELLIS (dyspnea on exertion). Cardiovascular: Denies: chest pain, ELLIS (dyspnea on exertion), p alpitations. GI: Denies: abdominal pain, nausea, vomiting. Musculoskeletal: Extremity pain: Reports: right lower (groin). Objective General VS/I O: Vital Signs: Date Time Temp Pulse Resp B/P B/P Pulse O2 O2 F low FiO2 Mean Ox Delivery Rate 06/26 1200 37.2 79 16 118/54 78 96 0 06/26 1101 82 18 134/53 77 06/26 1000 77 13 116/55 79 92 06/26 0900 86 19 132/66 91 65 06/26 0800 36.9 86 17 127/59 85 92 0 06/26 0730 Nasal 2 cannula 06/26 0722 94 Room air 06/26 0700 87 18 125/56 80 91 06/26 0633 37.2 84 21 130/61 92 06/26 0610 37.6 85 18 130/61 92 06/26 0600 85 19 130/61 88 91 06/26 0501 92 29 133/58 83 82 06/26 0405 37.7 06/26 0400 83 16 103/51 73 98 06/26 0300 83 16 95/50 70 98 06/26 0200 82 16 95/53 70 98 06/26 0100 86 16 97/48 69 99 06/26 0005 37.2 06/26 0000 85 16 92/46 66 90 06/25 2300 87 16 98/49 70 93 06/25 2200 83 16 98/47 68 92 06/25 2100 84 16 101/49 71 93 06/25 2030 36.9 06/25 2000 85 17 101/48 69 93 06/25 1900 81 14 118/53 77 97 06/25 1824 84 13 106/51 74 95 06/25 1630 36.8 79 13 112/53 77 94 06/25 1530 86 16 104/53 77 100 24 hour I O ending at 0700: 06/26 0700 06/25 1900 Intake Total 600 660 Output Total 1825 1400 Balance -1225 -740 Intake, IV 500 Intake, Oral 100 660 Intake, Oral 0 Supplement Number 1 Bowel Movements Output, Urine 1825 1400 Patient 98.6 kg Weight Weight Bed scale Measurement Method PATIENT WEIGHT: Weight (lb): 217 Weight (oz): 6.01 Weight (kg): 98.43 Medications: Active Meds + DC'd Last 24 Hrs Lidocaine (LIDODERM) 1 PATCH DAILY TOPICAL Furosemide (LASIX 20MG INJ) 20 MG BLOOD-DOSE BET WEEN IV (CKD) Magnesium Sulfate (MAGNESIUM SULFATE 2GM/SWFI 50 ML) 50 ML ONCE ONE IV ( DC) Furosemide (LASIX 40 mg/4 mL INJECTION) 40 MG ON CE ONE IV (DC) Calcium Gluconate/Sodium Chloride (CALCIUM GLUC 2GM/NS 100ML) 100 ML ONCE ONE IV (DC) Insulin Human Lispro (HUMALOG) 0 AC HS SUBQ Dextrose/Water (DEXTROSE 50% W SYRINGE) 25 ML DIR PRN IV (CKD) Dextrose/Water (DEXTROSE 50% W SYRINGE) 50 ML DIR PRN IV (CKD) Glucagon (GLUCAGON) 1 MG ASDIR PRN IM Aspirin (ASPIRIN) 81 MG DAILY PO Clopidogrel Bisulfate (Plavix) 75 MG DAILY PO Duloxetine HCl (CYMBALTA) 20 MG DAILY PO Losartan Potassium (COZAAR) 50 MG DAILY PO Sodium Chloride (SODIUM CHLORIDE 0.9%) 500 ML DA ELADIO MISC Atorvastatin Calcium (LIPITOR) 40 MG BEDTIME PO Gabapentin (NEURONTIN) 600 MG BID PO Insulin Glargine (Lantus/Semglee) 25 UNIT BEDTIM E SUBQ Metoprolol Succinate (TOPROL XL) 12.5 MG BID PO Mupirocin (BACTROBAN 2% 22 GM OINTMENT) 1 APPLIC BID NASAL Glucagon (GLUCAGON) 1 MG ASDIR PRN IM Heparin Sodium (HEPARIN 5000 UNITS/ML) 0 ASDIR P RN IV (DC) Heparin Sodium (Porcine) (HEPARIN 25,000 UNITS/ 1/2NS 500ML) 500 ML ASDIR IV (DC) Hydrocodone Bitart/Acetaminophen (NORCO 10/325) 1 TAB Q6H PRN PRN PO Morphine Sulfate (morphine SULFATE) 4 MG Q2H PRN PRN IV Ondansetron HCl (ZOFRAN) 4 MG Q8H PRN PRN IV Physical Exam General appearance: alert, awake, oriented Head/Eyes: atraumatic, normal conjunctiva/sclera , normal eyelids/periorb., normocephalic Neck: full range of motion, non-tender, normal t hyroid, no JVD Cardiovascular: normal heart sounds, regular rat e rhythm Respiratory: aerating well, clear to auscultatio n Abdomen: non-tender, normal bowel sounds, soft, no distention Extremities: moves all, no calf tenderness, no e agata 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, oriented X 3, CNII-XII intact, normal speech, no motor deficits, no sensory deficits Skin: dry, intact, ecchymosis Right groin Results Findings/Data: Laboratory Tests 06/26 06/26 06/26 06/26 06/25 1209 0807 1234 3324 2005 Chemistry Sodium (134 - 147 mEq/L) 142 Potassium (3.4 - 5.0 mEq/L) 3.7 Chloride (100 - 108 mEq/L) 109 H Carbon Dioxide (21 - 33 mEq/l) 28 Anion Gap (0 - 20) 9 BUN (7 - 18 mg/dL) 17 Creatinine (0.6 - 1.3 mg/dL) 1.1 Glomerular Filtr Rate (90 - 95) 50.8 L Glucose (70 - 110 mg/dL) 154 H POC Glucose (70 - 110 MG/DL) 139 H 126 H 109 Calcium (8.0 - 10.5 mg/dL) 7.7 L Magnesium (1.80 - 2.40 mg/dL) 1.68 L B-Natriuretic Peptide (0 - 100 PG/ML) 223.0 H 06/25 1634 Chemistry POC Glucose (70 - 110 MG/DL) 188 H Laboratory Tests 06/26 06/25 0444 1648 Hematology WBC (4.5 - 11.0 x10 3/uL) 9.2 RBC (3.54 - 5.02 x10 6/uL) 2.29 L Hgb (11.0 - 15.0 g/dL) 6.7 L 7.3 L Hct (33.0 - 45.0 %) 20.9 L 22.9 L MCV (81.0 - 99.0 fL) 91.3 MCH (27.0 - 33.0 pg) 29.3 MCHC (33.0 - 37.0 g/dL) 32.1 L RDW (11.5 - 14.5 %) 16.0 H Plt Count (150 - 400 x10 3/uL) 121 L MPV (7.0 - 9.0 fL) 9.2 H Neut % (Auto) (56.0 - 77.0 %) 76.2 Lymph % (Auto) (14.0 - 32.0 %) 10.3 L [place] % (Auto) (4.8 - 9.0 %) 11.3 H Eos % (Auto) (0.3 - 3.7 %) 1.6 Baso % (Auto) (0.0 - 2.0 %) 0.1 Neut # (Auto) (2.0 - 7.6 x10 3/uL) 6.99 Lymph # (Auto) (1.0 - 3.8 x10 3/uL) 0.95 L [place] # (Auto) (0.1 - 0.8 x10 3/uL) 1.04 H Eos # (Auto) (0.0 - 0.2 x10 3/uL) 0.15 Baso # (Auto) (0.0 - 0.2 x10 3/uL) 0.01 Abs Immat Gran (auto) (0.00 - 0.03 x10 3/uL) 0. 05 H Add Manual Diff NO Immature Gran % (0.0 - 2.0 %) 0.5 Nucleated RBC % (0 - 0 %) 0.0 Nucleated RBCs # (Man) (0.0 - 0.1 x10 3/uL) 0.0 0 Diagnosis, Assessment Plan Consultants: cardiology, cardiovascular surgery, critical/waste machine tender, hospitalist Free Text DxA P Notes Free text DxA P notes: angina /CAD hypotension -- cardiagenic HTN leucocytosis DM HLD anemia -- due to acute blood loss angina/CAD LHC -- PCI cardiology consult continue home med plavix /ASA continue home medication hypotension cardiogenic--impella was inserted resolve BP-- stable leucocytosis no sign of infection monitor cbc DM- sliding scale continue home med HTN-- monitor stable HLD -- continue home med anemia -- due to acute blood loss surgery -- 06/24 1. Exploration of right common femoral artery. 2. Repair of right common femoral artery. 06/25 -- she complaint of neck pain -lidocaine patch -- she had artery repair surgery yesterday -- Hb -9.2--7.8 -- monitor BP and H H 06/26.... Anemia hemoglobin 6.7, s/p 1 unit of bl ood ........ hypomagnesia magnesium replaced ........ complaining of sore shortness of breath but able to maintain saturation above 90% on room air ......... labs in a.m. Quality: Gen Med Crit Care Current Medications Current medication review: Current Medications Sig/Nandini Start time Last Medication Dose Route Stop Time Status Admin Dexamethasone Sodium 0 .STK-MED ONE 06/25 1731 DC Phosphate .ROUTE Lidocaine HCl 0 .STK-MED ONE 06/24 173 DC .ROUTE Ondansetron HCl 0 .STK-MED ONE 06/24 173 DC .ROUTE Sevoflurane 0 .STK-MED ONE 06/24 1732 DC INH Epinephrine 0 .STK-MED ONE 06/24 1713 DC 06/24 IV 1715 Sodium Bicarbonate 0 .STK-MED ONE 06/24 1713 D C 06/24 IV 1715 Thrombin 0 .STK-MED ONE 06/24 1703 DC TOPICAL Sodium Chloride 500 ML .STK-MED ONE 06/24 1650 DC IV Etomidate 0 .STK-MED ONE 06/24 1648 DC IV Heparin Sodium/ 1,000 ML .STK-MED ONE 06/24 164 1 DC 06/24 Sodium Chloride IV 1705 Insulin Human Lispro 0 AC HS 06/24 1630 AC SUBQ 07/24 1629 Methylprednisolone 0 .STK-MED ONE 06/24 1629 D C 06/24 Sodium Succinate IV 1705 Norepinephrine 250 ML .STK-MED ONE 06/24 1626 D C 06/24 Bitartrate IV 1705 Phenylephrine HCl 0 .STK-MED ONE 06/24 1607 DC 06/24 I-CHAVEZ 1705 Fentanyl Citrate 0 .STK-MED ONE 06/24 1533 DC 0 06/24 .ROUTE 1539 Heparin Sodium/ 500 ML .STK-MED ONE 06/24 1533 DC 06/24 Sodium Chloride IV 1539 Lidocaine HCl 0 .STK-MED ONE 06/24 1533 DC 04 4 .ROUTE 1539 Midazolam HCl 0 .STK-MED ONE 06/24 1532 DC 04 4 .ROUTE 1539 Dextrose/Water 25 ML ASDIR PRN 06/24 1345 CKD IV 07/24 1344 Dextrose/Water 50 ML ASDIR PRN 06/24 1345 CKD IV 07/24 1344 Glucagon 1 MG ASDIR PRN 06/24 1345 AC IM 07/24 1344 Aspirin 81 MG DAILY 06/24 0900 AC 06/24 PO 07/24 0859 0916 Clopidogrel Bisulfate 75 MG DAILY 06/24 0900 A C 06/24 PO 07/24 0859 1435 Duloxetine HCl 20 MG DAILY 06/24 0900 AC 06/24 PO 07/24 0859 0916 Isosorbide Dinitrate 60 MG DAILY 06/24 0900 DA 06/24 PO 07/24 0859 0917 Losartan Potassium 50 MG DAILY 06/24 0900 AC PO 07/24 0859 0916 Sodium Chloride 500 ML DAILY 06/24 0900 AC MISC 07/24 0859 Magnesium Sulfate 50 ML ONCE ONE 06/24 0830 DC 06/24 IV 06/24 1029 0921 Atorvastatin Calcium 40 MG BEDTIME 06/23 2100 A C 06/23 PO 07/232 Gabapentin 600 MG BID 06/23 2100 AC 06/24 PO 07/23 2058 0916 Insulin Glargine 25 UNIT BEDTIME 06/23 2100 AC 06/23 SUBQ 07/23 2058 2030 Metoprolol Succinate 12.5 MG BID 06/23 2100 AC 06/24 PO 07/23 205 0917 Mupirocin 1 APPLIC BID 06/23 2100 AC 06/24 NASAL 06/28 0901 0916 Insulin Human Lispro 0 AC HS 06/23 1800 DC SUBQ 07/23 1749 0916 Dextrose/Water 25 ML ASDIR PRN 06/23 1730 DC IV 07/23 1729 Dextrose/Water 50 ML ASDIR PRN 06/23 1730 DC IV 07/23 1729 Glucagon 1 MG ASDIR PRN 06/23 1730 AC IM 07/23 1729 Heparin Sodium 0 ASDIR PRN 06/23 1730 AC IV 07/23 1729 Heparin Sodium 500 ML ASDIR 06/23 1730 CKD 04 4 (Porcine) IV 07/23 1729 0301 Hydrocodone Bitart/ 1 TAB Q6H PRN PRN 06/23 173 0 AC Acetaminophen PO 06/28 1729 Morphine Sulfate 4 MG Q2H PRN PRN 06/23 1730 A C 06/24 IV 06/28 1729 0634 Ondansetron HCl 4 MG Q8H PRN PRN 06/23 1730 AC IV 07/23 1729 Sodium Chloride 1,000 ML .Q10H 06/23 1730 AC IV 07/23 1729 1436 Atropine Sulfate 0.5 MG ASDIR PRN 06/23 1430 DC IV 06/24 1423 Heparin Sodium 12,500 UNIT DAILY PRN PRN 06/23 1430 AC Dextrose/Water 500 ML I-CATHETER 07/23 1429 Heparin Sodium/ 500 ML DAILY PRN PRN 06/23 1430 AC 06/23 Dextrose I-CATHETER 07/23 1429 2302 Sodium Chloride 1,000 ML .[id number] 06/23 1430 DC 06/23 IV 06/24 0349 1755 Sodium Chloride 500 ML ASDIR PRN 06/23 1430 DC IV 06/24 1423 Home Medications: GABAPENTIN (NEURONTIN) 600 MG PO BID FOLIC ACID 1 MG PO DAILY METOPROLOL SUCC XL (TOPROL XL) 12.5 MG PO BID ISOSORBIDE DINITRATE (ISORDIL) 60 MG PO DAILY ASPIRIN 81 MG PO DAILY DULoxetine DR (CYMBALTA) 20 MG PO DAILY LOSARTAN (COZAAR) 50 MG PO DAILY ATORVASTATIN (LIPITOR) 40 MG PO BEDTIME METHOTREXATE (RHEUMATREX) 2.5 MG PO Q7D INSULIN ASPART (NovoLOG) Insulin Degludec (TRESIBA FLEXTOUCH U-100 (3mL)) 26 UNITS SUBQ DAILY HYDROcodone/APAP (NORCO 10/325) 1 TAB PO Q6H PRN PRN PAIN [XELJANZ] (Unknown Dose) PO DAILY NITROGLYCERIN (NITROSTAT) 0.4 MG SL Q5M PRN PRN ANGINA CLOPIDOGREL (PLAVIX) 75 MG PO DAILY Electronically Signed by Brea Mitchell NP on at 1504 RPT #:[id number] END OF REPORT 2021-06-26 09:32:00-00:00 [facility] Cardiothoracic Surgery Prog REPORT#:[id number] REPORT STATUS: Signed DATE:06/26/21 TIME: 931 PATIENT: TAMY MARTINEZ UNIT #: [id number] ROOM/BED: [place] [address] : 62 AGE: 61 SEX: F ATTEND: Conrado Zeng MD ADM AUTHOR: Loly Agee * ALL edits or amendments must be made on the [employer]/computer document * General Post-op: day 2 Status post: 06/24 S/p 1. Exploration of right common femoral artery. 2. Repair of right common femoral artery. Subjective Chief Complaint: Follow up right groin exploration Review of Systems Constitutional: Denies: fever, malaise. Allergy/Immun: Denies: allergic reaction. Respiratory: Denies: SOB. GI: Denies: abdominal pain, nausea, vomiting. Heme: Denies: bleeding. Neuro: Denies: dizziness, headache, vision change. Objective General VS/I O Last Documented: Result Date Time Pulse Ox 91 06/26 0700 B/P 125/56 06/26 0700 B/P Mean 80 06/26 0700 Pulse 87 06/26 0700 Resp 18 06/26 0700 Temp 99.0 06/26 0633 O2 Delivery Nasal cannula 06/25 748 O2 Flow Rate 2 04/15 0749 FiO2 28 06/24 0915 24 hour I O ending at 0700: 06/26 0700 06/25 1900 Intake Total 600 660 Output Total 1825 1400 Balance -1225 -740 Intake, IV 500 Intake, Oral 100 660 Intake, Oral 0 Supplement Number 1 Bowel Movements Output, Urine 1825 1400 Patient 217 lb Weight Weight Bed scale Measurement Method PATIENT WEIGHT: Weight (lb): 217 Weight (oz): 6.01 Weight (kg): 98.600 Physical Exam General appearance: alert, oriented, pleasant, m ental status normal, no respiratory distress Wound/incision: Location: right groin Site condition: dressing intact HEENT: anicteric Neck: supple/no meningismus Cardiovascular: normal heart sounds, regular rat e rhythm Respiratory: aerating well, clear to auscultatio n, symmetric expansion, no distress Abdomen: soft, non-tender, no distention Genitourinary: hilliard Extremities: pedal pulses, moves all 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, 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 3, normal speech, n o motor deficits Psychiatry: normal affect, normal mood Current Medications Medications: Active Meds + DC'd Last 24 Hrs Lidocaine (LIDODERM) 1 PATCH DAILY TOPICAL Furosemide (LASIX 20MG INJ) 20 MG BLOOD-DOSE BET WEEN IV (CKD) Magnesium Sulfate (MAGNESIUM SULFATE 2GM/SWFI 50 ML) 50 ML ONCE ONE IV ( DC) Furosemide (LASIX 40 mg/4 mL INJECTION) 40 MG ON CE ONE IV (DC) Calcium Gluconate/Sodium Chloride (CALCIUM GLUC 2GM/NS 100ML) 100 ML ONCE ONE IV (DC) Furosemide (LASIX 40 mg/4 mL INJECTION) 40 MG ON CE ONE IV (DC) Calcium Chloride (CALCIUM CHLORIDE) 2 GM ONCE ON E IV (DC) Sodium Chloride (SODIUM CHLORIDE 0.9%) 100 ML Insulin Human Lispro (HUMALOG) 0 AC HS SUBQ Dextrose/Water (DEXTROSE 50% W SYRINGE) 25 ML DIR PRN IV (CKD) Dextrose/Water (DEXTROSE 50% W SYRINGE) 50 ML DIR PRN IV (CKD) Glucagon (GLUCAGON) 1 MG ASDIR PRN IM Aspirin (ASPIRIN) 81 MG DAILY PO Clopidogrel Bisulfate (Plavix) 75 MG DAILY PO Duloxetine HCl (CYMBALTA) 20 MG DAILY PO Isosorbide Dinitrate (ISORDIL) 60 MG DAILY PO (D C) Losartan Potassium (COZAAR) 50 MG DAILY PO Sodium Chloride (SODIUM CHLORIDE 0.9%) 500 ML DA ELADIO MISC Atorvastatin Calcium (LIPITOR) 40 MG BEDTIME PO Gabapentin (NEURONTIN) 600 MG BID PO Insulin Glargine (Lantus/Semglee) 25 UNIT BEDTIM E SUBQ Metoprolol Succinate (TOPROL XL) 12.5 MG BID PO Mupirocin (BACTROBAN 2% 22 GM OINTMENT) 1 APPLIC BID NASAL Glucagon (GLUCAGON) 1 MG ASDIR PRN IM Heparin Sodium (HEPARIN 5000 UNITS/ML) 0 ASDIR P RN IV (DC) Heparin Sodium (Porcine) (HEPARIN 25,000 UNITS/ 1/2NS 500ML) 500 ML ASDIR IV (DC) Hydrocodone Bitart/Acetaminophen (NORCO 10/325) 1 TAB Q6H PRN PRN PO Morphine Sulfate (morphine SULFATE) 4 MG Q2H PRN PRN IV Ondansetron HCl (ZOFRAN) 4 MG Q8H PRN PRN IV Sodium Chloride (SODIUM CHLORIDE 0.9%) 1,000 ML .Q24H IV (DC) Heparin Sodium (HEPARIN 5000 UNITS/ML) 12,500 UN IT DAILY PRN PRN I- CATHETER (DC) Dextrose/Water (DEXTROSE 5% WATER) 500 ML Heparin Sodium/Dextrose (HEPARIN 25,000 UNITS/D5 W 500ML) 500 ML DAILY PRN PRN I-CATHETER (DC) Results Findings/Data: Laboratory Tests 06/26 06/26 06/26 06/25 06/25 0807 0444 0444 2005 1634 Chemistry Sodium (134 - 147 mEq/L) 142 Potassium (3.4 - 5.0 mEq/L) 3.7 Chloride (100 - 108 mEq/L) 109 H Carbon Dioxide (21 - 33 mEq/l) 28 Anion Gap (0 - 20) 9 BUN (7 - 18 mg/dL) 17 Creatinine (0.6 - 1.3 mg/dL) 1.1 Glomerular Filtr Rate (90 - 95) 50.8 L Glucose (70 - 110 mg/dL) 154 H POC Glucose (70 - 110 MG/DL) 126 H 109 188 H Calcium (8.0 - 10.5 mg/dL) 7.7 L Magnesium (1.80 - 2.40 mg/dL) 1.68 L B-Natriuretic Peptide (0 - 100 PG/ML) 223.0 H 06/25 1127 Chemistry POC Glucose (70 - 110 MG/DL) 265 H Laboratory Tests 06/26 06/25 0444 1648 Hematology WBC (4.5 - 11.0 x10 3/uL) 9.2 RBC (3.54 - 5.02 x10 6/uL) 2.29 L Hgb (11.0 - 15.0 g/dL) 6.7 L 7.3 L Hct (33.0 - 45.0 %) 20.9 L 22.9 L MCV (81.0 - 99.0 fL) 91.3 MCH (27.0 - 33.0 pg) 29.3 MCHC (33.0 - 37.0 g/dL) 32.1 L RDW (11.5 - 14.5 %) 16.0 H Plt Count (150 - 400 x10 3/uL) 121 L MPV (7.0 - 9.0 fL) 9.2 H Neut % (Auto) (56.0 - 77.0 %) 76.2 Lymph % (Auto) (14.0 - 32.0 %) 10.3 L [place] % (Auto) (4.8 - 9.0 %) 11.3 H Eos % (Auto) (0.3 - 3.7 %) 1.6 Baso % (Auto) (0.0 - 2.0 %) 0.1 Neut # (Auto) (2.0 - 7.6 x10 3/uL) 6.99 Lymph # (Auto) (1.0 - 3.8 x10 3/uL) 0.95 L [place] # (Auto) (0.1 - 0.8 x10 3/uL) 1.04 H Eos # (Auto) (0.0 - 0.2 x10 3/uL) 0.15 Baso # (Auto) (0.0 - 0.2 x10 3/uL) 0.01 Abs Immat Gran (auto) (0.00 - 0.03 x10 3/uL) 0. 05 H Add Manual Diff NO Immature Gran % (0.0 - 2.0 %) 0.5 Nucleated RBC % (0 - 0 %) 0.0 Nucleated RBCs # (Man) (0.0 - 0.1 x10 3/uL) 0.0 0 Radiology data: Recent Impressions: RADIOLOGY - XR CHEST 1 V 06/26 0611 Report Impression - Status: SIGNED Entered: 06/26/2021 0751 IMPRESSION: No obvious infiltrates or consolidations. Impression By: [email or web address] Weiner M.D. Diagnosis, Assessment Plan Hospital course to date: Ms. Martinez is a 61-year-old female who had an Im pella placed for cardiogenic shock. She has recovered completely and she was ready for the Impella to be removed today. The patient was taken to the operations label clerk, and after removal of Impella, attempts were made to close the common femoral artery defect with Perclose device unsuccessfully. The patient deve loped significant right groin hematoma and hence intraoperative cardiova scular consult was obtained. 1. Exploration of right common femoral artery. 2. Repair of right common femoral artery. 06/26 Doing well, alert and oriented Monitor right groin hematoma. Groin soft, mild t enderness Bilateral feet with palpable pulses Hemodynamically stable, sinus rhythm 70s Hemoglobin dropped to 6.7. 1 unit of RBCs being transfused Obtain right groin arterial ultrasound to rule o ut pseudoaneurysm Pt seen with Dr Whitt Consultants: cardiology, cardiovascular surgery, critical/waste machine tender, hospitalist at 1047 at 1223 RPT #:[id number] END OF REPORT 2021-06-26 09:25:00-00:00 [facility] Cardiology Progress Note REPORT#:[id number] REPORT STATUS: Signed DATE:06/26/21 TIME: 924 PATIENT: TAMY MARTINEZ UNIT #: [id number] ROOM/BED: [place] [address] : 62 AGE: 61 SEX: F ATTEND: Conrado Zeng MD ADM AUTHOR: Zoraida Felder CNP * ALL edits or amendments must be made on the [employer]/computer document * Subjective Patient reports: No: complaints. Objective General VS/I O: 24 hour I O ending at 0700: 06/26 0700 06/25 1900 Intake Total 600 660 Output Total 1825 1400 Balance -1225 -740 Intake, IV 500 Intake, Oral 100 660 Intake, Oral 0 Supplement Number 1 Bowel Movements Output, Urine 1825 1400 Patient 98.6 kg Weight Weight Bed scale Measurement Method Vital Signs: Date Time Temp Pulse Resp B/P B/P Pulse O2 O2 F low FiO2 Mean Ox Delivery Rate 06/26 0700 87 18 125/56 80 91 06/26 0633 37.2 84 21 130/61 92 16 0610 37.6 85 18 130/61 92 06/26 0600 85 19 130/61 88 91 06/26 0501 92 29 133/58 83 82 06/26 0405 37.7 06/26 0400 83 16 103/51 73 98 06/26 0300 83 16 95/50 70 98 16 0200 82 16 95/53 70 98 / 0100 86 16 97/48 69 99 16 0005 37.2 06/26 0000 85 16 92/46 66 90 / 2300 87 16 98/49 70 93 04/15 2200 83 16 98/47 68 92 04/15 2100 84 16 101/49 71 93 /15 2030 36.9 06/25 2000 85 17 101/48 69 93 /15 1900 81 14 118/53 77 97 04/15 1824 84 13 106/51 74 95 /15 1630 36.8 79 13 112/53 77 94 04/15 1530 86 16 104/53 77 100 04/15 1500 86 15 98/46 67 100 04/15 1430 87 17 105/51 73 100 04/15 1400 84 18 99/47 68 98 04/15 1300 87 26 97/45 65 98 04/15 1231 105 19 100/50 72 88 04/15 1200 36.8 87 16 100/47 68 95 04/15 1130 81 15 100/48 69 99 04/15 1100 85 13 98/48 69 98 04/15 1030 85 19 91/42 61 95 04/15 0930 85 13 106/55 78 99 PATIENT WEIGHT: Weight (lb): 217 Weight (oz): 6.01 Weight (kg): 98.600 Medications: Active Meds + DC'd Last 24 Hrs Lidocaine (LIDODERM) 1 PATCH DAILY TOPICAL Furosemide (LASIX 20MG INJ) 20 MG BLOOD-DOSE BET WEEN IV (CKD) Magnesium Sulfate (MAGNESIUM SULFATE 2GM/SWFI 50 ML) 50 ML ONCE ONE IV ( DC) Furosemide (LASIX 40 mg/4 mL INJECTION) 40 MG ON CE ONE IV (DC) Calcium Gluconate/Sodium Chloride (CALCIUM GLUC 2GM/NS 100ML) 100 ML ONCE ONE IV (DC) Furosemide (LASIX 40 mg/4 mL INJECTION) 40 MG ON CE ONE IV (DC) Calcium Chloride (CALCIUM CHLORIDE) 2 GM ONCE ON E IV (DC) Sodium Chloride (SODIUM CHLORIDE 0.9%) 100 ML Insulin Human Lispro (HUMALOG) 0 AC HS SUBQ Dextrose/Water (DEXTROSE 50% W SYRINGE) 25 ML DIR PRN IV (CKD) Dextrose/Water (DEXTROSE 50% W SYRINGE) 50 ML DIR PRN IV (CKD) Glucagon (GLUCAGON) 1 MG ASDIR PRN IM Aspirin (ASPIRIN) 81 MG DAILY PO Clopidogrel Bisulfate (Plavix) 75 MG DAILY PO Duloxetine HCl (CYMBALTA) 20 MG DAILY PO Isosorbide Dinitrate (ISORDIL) 60 MG DAILY PO (D C) Losartan Potassium (COZAAR) 50 MG DAILY PO Sodium Chloride (SODIUM CHLORIDE 0.9%) 500 ML DA ELADIO MISC Atorvastatin Calcium (LIPITOR) 40 MG BEDTIME PO Gabapentin (NEURONTIN) 600 MG BID PO Insulin Glargine (Lantus/Semglee) 25 UNIT BEDTIM E SUBQ Metoprolol Succinate (TOPROL XL) 12.5 MG BID PO Mupirocin (BACTROBAN 2% 22 GM OINTMENT) 1 APPLIC BID NASAL Glucagon (GLUCAGON) 1 MG ASDIR PRN IM Heparin Sodium (HEPARIN 5000 UNITS/ML) 0 ASDIR PRN IV (DC) Heparin Sodium (Porcine) (HEPARIN 25,000 UNITS/ 1/2NS 500ML) 500 ML ASDIR IV (DC) Hydrocodone Bitart/Acetaminophen (NORCO 10/325) 1 TAB Q6H PRN PRN PO Morphine Sulfate (morphine SULFATE) 4 MG Q2H PRN PRN IV Ondansetron HCl (ZOFRAN) 4 MG Q8H PRN PRN IV Sodium Chloride (SODIUM CHLORIDE 0.9%) 1,000 ML .Q24H IV (DC) Heparin Sodium (HEPARIN 5000 UNITS/ML) 12,500 UN IT DAILY PRN PRN I- CATHETER (DC) Dextrose/Water (DEXTROSE 5% WATER) 500 ML Heparin Sodium/Dextrose (HEPARIN 25,000 UNITS/D5 W 500ML) 500 ML DAILY PRN PRN I-CATHETER (DC) Physical Exam General appearance: alert, awake, oriented, no a cute distress Neck: non-tender, no JVD Cardiovascular: CV assessment: regular rate and rhythm Respiratory: decreased breath sounds, on oxygen, no distress Abdomen: non-tender Genitourinary: hilliard, urine Lower extremity: LE assessment: edema (face and hands), no edema Musculoskeletal: normal inspection 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, oriented X 3, normal speech Skin: dry, intact, normal color, normal temperat ure Wound/incision: Location: Rgroin bruise, tender Psychiatry: normal affect, normal judgment/insig ht, normal mood, no hallucinations Results Findings/Data: Laboratory Tests 06/26 Chemistry Sodium (134 - 147 mEq/L) 142 Potassium (3.4 - 5.0 mEq/L) 3.7 Chloride (100 - 108 mEq/L) 109 H Carbon Dioxide (21 - 33 mEq/l) 28 Anion Gap (0 - 20) 9 BUN (7 - 18 mg/dL) 17 Creatinine (0.6 - 1.3 mg/dL) 1.1 Glomerular Filtr Rate (90 - 95) 50.8 L Glucose (70 - 110 mg/dL) 154 H POC Glucose (70 - 110 MG/DL) 126 H 109 188 H Calcium (8.0 - 10.5 mg/dL) 7.7 L Magnesium (1.80 - 2.40 mg/dL) 1.68 L B-Natriuretic Peptide (0 - 100 PG/ML) 223.0 H 06/25 1127 Chemistry POC Glucose (70 - 110 MG/DL) 265 H Laboratory Tests 06/26 1648 Hematology WBC (4.5 - 11.0 x10 3/uL) 9.2 RBC (3.54 - 5.02 x10 6/uL) 2.29 L Hgb (11.0 - 15.0 g/dL) 6.7 L 7.3 L Hct (33.0 - 45.0 %) 20.9 L 22.9 L MCV (81.0 - 99.0 fL) 91.3 MCH (27.0 - 33.0 pg) 29.3 MCHC (33.0 - 37.0 g/dL) 32.1 L RDW (11.5 - 14.5 %) 16.0 H Plt Count (150 - 400 x10 3/uL) 121 L MPV (7.0 - 9.0 fL) 9.2 H Neut % (Auto) (56.0 - 77.0 %) 76.2 Lymph % (Auto) (14.0 - 32.0 %) 10.3 L [place] % (Auto) (4.8 - 9.0 %) 11.3 H Eos % (Auto) (0.3 - 3.7 %) 1.6 Baso % (Auto) (0.0 - 2.0 %) 0.1 Neut # (Auto) (2.0 - 7.6 x10 3/uL) 6.99 Lymph # (Auto) (1.0 - 3.8 x10 3/uL) 0.95 L [place] # (Auto) (0.1 - 0.8 x10 3/uL) 1.04 H Eos # (Auto) (0.0 - 0.2 x10 3/uL) 0.15 Baso # (Auto) (0.0 - 0.2 x10 3/uL) 0.01 Abs Immat Gran (auto) (0.00 - 0.03 x10 3/uL) 0. 05 H Add Manual Diff NO Immature Gran % (0.0 - 2.0 %) 0.5 Nucleated RBC % (0 - 0 %) 0.0 Nucleated RBCs # (Man) (0.0 - 0.1 x10 3/uL) 0.0 0 Laboratory Tests 06/26 06/26 0444 0444 Chemistry Magnesium (1.80 - 2.40 mg/dL) 1.68 L B-Natriuretic Peptide (0 - 100 PG/ML) 223.0 H Radiology data: Recent Impressions: RADIOLOGY - XR CHEST 1 V 06/26 0611 Report Impression - Status: SIGNED Entered: 06/26/2021 1855 IMPRESSION: No obvious infiltrates or consolidations. Impression By: [email or web address] - Momo Weiner M.D. Diagnosis, Assessment Plan Plan discussed with: patient, nurse Free Text DxA P Notes Free Text DxA P Notes: 61 YO female with MHx of CAD with prior PCI/MIKHAIL to LAD (05/2021), HTN, DM, CVA, HLD who has been having angina. She was admitted electively on 06/23/21 for staged PCI to right PDA and RCA. The patient had successul PCI of the ostial PDA with MIKHAIL. However, the patient developed dissection of the proximal to mid RCA post balloon angioplasty. Im pella LVAD was inserted for stability. This morning the patient was doing well, awake and alert, no chest pain, and no SOB. Had episode of hypotension which responded to 500 ml IVF challenge. 1. Coronary artery disease 05/12/2021: 3 stents to LAD 06/23/21: PCI/MIKHAIL of ostial PDA RCA dissection s/p Impella LVAD support - dc'd on 06/24 continue DAPT, BB, statin 2. Hypertension off levophed BP normotensive continue BB, hold losartan 3. Diabetes mellitus continue lantus and insulin sliding scale 4. Hyperlipidemia continue statin 5. RCFA bleeding during Impella removal s/p repa ir R groin bruise hgb 7.8->7.3->6.7 - transfus e 1 unit PRBC, give IV lasix 20 mg post transfusion R groin US 6. Fluid overload - stable post diuresis negtive fluid balance 1.9L given IV Lasix 40 mg x2 with great diuresis PT/OT, mobilize OOB at 1330 RPT #:[id number] END OF REPORT 2021-06-26 09:25:00-00:00 [facility] Cardiology Progress Note REPORT#:[id number] REPORT STATUS: Signed DATE:06/26/21 TIME: 924 PATIENT: TAMY MARTINEZ UNIT #: [id number] ROOM/BED: 3349-1 : 62 AGE: 61 SEX: F ATTEND: Conrado Zeng MD ADM AUTHOR: Zoraida Felder CNP * ALL edits or amendments must be made on the el [employer] document * Subjective Patient reports: No: complaints. Objective General VS/I O: 24 hour I O ending at 0700: 06/26 0700 06/25 1900 Intake Total 600 660 Output Total 1825 1400 Balance -1225 -740 Intake, IV 500 Intake, Oral 100 660 Intake, Oral 0 Supplement Number 1 Bowel Movements Output, Urine 1825 1400 Patient 98.6 kg Weight Weight Bed scale Measurement Method Vital Signs: Date Time Temp Pulse Resp B/P B/P Pulse O2 O2 F low FiO2 Mean Ox Delivery Rate 06/26 0700 87 18 125/56 80 91 06/26 0633 37.2 84 21 130/61 92 06/26 0610 37.6 85 18 130/61 92 16 0600 85 19 130/61 88 91 06/26 0501 92 29 133/58 83 82 06/26 0405 37.7 06/26 0400 83 16 103/51 73 98 /16 0300 83 16 95/50 70 98 16 0200 82 16 95/53 70 98 /16 0100 86 16 97/48 69 99 /16 0005 37.2 06/26 0000 85 16 92/46 66 90 04/15 2300 87 16 98/49 70 93 04/15 2200 83 16 98/47 68 92 04/15 2100 84 16 101/49 71 93 04/15 2030 36.9 04/15 2000 85 17 101/48 69 93 04/15 1900 81 14 118/53 77 97 04/15 1824 84 13 106/51 74 95 04/15 1630 36.8 79 13 112/53 77 94 04/15 1530 86 16 104/53 77 100 04/15 1500 86 15 98/46 67 100 04/15 1430 87 17 105/51 73 100 04/15 1400 84 18 99/47 68 98 04/15 1300 87 26 97/45 65 98 04/15 1231 105 19 100/50 72 88 04/15 1200 36.8 87 16 100/47 68 95 04/15 1130 81 15 100/48 69 99 04/15 1100 85 13 98/48 69 98 04/15 1030 85 19 91/42 61 95 04/15 0930 85 13 106/55 78 99 PATIENT WEIGHT: Weight (lb): 217 Weight (oz): 6.01 Weight (kg): 98.600 Medications: Active Meds + DC'd Last 24 Hrs Lidocaine (LIDODERM) 1 PATCH DAILY TOPICAL Furosemide (LASIX 20MG INJ) 20 MG BLOOD-DOSE BET WEEN IV (CKD) Magnesium Sulfate (MAGNESIUM SULFATE 2GM/SWFI 50 ML) 50 ML ONCE ONE IV ( DC) Furosemide (LASIX 40 mg/4 mL INJECTION) 40 MG ON CE ONE IV (DC) Calcium Gluconate/Sodium Chloride (CALCIUM GLUC 2GM/NS 100ML) 100 ML ONCE ONE IV (DC) Furosemide (LASIX 40 mg/4 mL INJECTION) 40 MG ON CE ONE IV (DC) Calcium Chloride (CALCIUM CHLORIDE) 2 GM ONCE ON E IV (DC) Sodium Chloride (SODIUM CHLORIDE 0.9%) 100 ML Insulin Human Lispro (HUMALOG) 0 AC HS SUBQ Dextrose/Water (DEXTROSE 50% W SYRINGE) 25 ML DIR PRN IV (CKD) Dextrose/Water (DEXTROSE 50% W SYRINGE) 50 ML DIR PRN IV (CKD) Glucagon (GLUCAGON) 1 MG ASDIR PRN IM Aspirin (ASPIRIN) 81 MG DAILY PO Clopidogrel Bisulfate (Plavix) 75 MG DAILY PO Duloxetine HCl (CYMBALTA) 20 MG DAILY PO Isosorbide Dinitrate (ISORDIL) 60 MG DAILY PO (D C) Losartan Potassium (COZAAR) 50 MG DAILY PO Sodium Chloride (SODIUM CHLORIDE 0.9%) 500 ML DA ELADIO MISC Atorvastatin Calcium (LIPITOR) 40 MG BEDTIME PO Gabapentin (NEURONTIN) 600 MG BID PO Insulin Glargine (Lantus/Semglee) 25 UNIT BEDTIM E SUBQ Metoprolol Succinate (TOPROL XL) 12.5 MG BID PO Mupirocin (BACTROBAN 2% 22 GM OINTMENT) 1 APPLIC BID NASAL Glucagon (GLUCAGON) 1 MG ASDIR PRN IM Heparin Sodium (HEPARIN 5000 UNITS/ML) 0 ASDIR P RN IV (DC) Heparin Sodium (Porcine) (HEPARIN 25,000 UNITS/ 1/2NS 500ML) 500 ML ASDIR IV (DC) Hydrocodone Bitart/Acetaminophen (NORCO 10/325) 1 TAB Q6H PRN PRN PO Morphine Sulfate (morphine SULFATE) 4 MG Q2H PRN PRN IV Ondansetron HCl (ZOFRAN) 4 MG Q8H PRN PRN IV Sodium Chloride (SODIUM CHLORIDE 0.9%) 1,000 ML .Q24H IV (DC) Heparin Sodium (HEPARIN 5000 UNITS/ML) 12,500 UN IT DAILY PRN PRN I- CATHETER (DC) Dextrose/Water (DEXTROSE 5% WATER) 500 ML Heparin Sodium/Dextrose (HEPARIN 25,000 UNITS/D5 W 500ML) 500 ML DAILY PRN PRN I-CATHETER (DC) Physical Exam General appearance: alert, awake, oriented, no a cute distress Neck: non-tender, no JVD Cardiovascular: CV assessment: regular rate and rhythm Respiratory: decreased breath sounds, on oxygen, no distress Abdomen: non-tender Genitourinary: hilliard, urine Lower extremity: LE assessment: edema (face and hands), no edema Musculoskeletal: normal inspection 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, oriented X 3, normal speech Skin: dry, intact, normal color, normal temperat ure Wound/incision: Location: Rgroin bruise, tender Psychiatry: normal affect, normal judgment/insig ht, normal mood, no hallucinations Results Findings/Data: Laboratory Tests 06/26 Chemistry Sodium (134 - 147 mEq/L) 142 Potassium (3.4 - 5.0 mEq/L) 3.7 Chloride (100 - 108 mEq/L) 109 H Carbon Dioxide (21 - 33 mEq/l) 28 Anion Gap (0 - 20) 9 BUN (7 - 18 mg/dL) 17 Creatinine (0.6 - 1.3 mg/dL) 1.1 Glomerular Filtr Rate (90 - 95) 50.8 L Glucose (70 - 110 mg/dL) 154 H POC Glucose (70 - 110 MG/DL) 126 H 109 188 H Calcium (8.0 - 10.5 mg/dL) 7.7 L Magnesium (1.80 - 2.40 mg/dL) 1.68 L B-Natriuretic Peptide (0 - 100 PG/ML) 223.0 H 06/25 1127 Chemistry POC Glucose (70 - 110 MG/DL) 265 H Laboratory Tests 06/26 1648 Hematology WBC (4.5 - 11.0 x10 3/uL) 9.2 RBC (3.54 - 5.02 x10 6/uL) 2.29 L Hgb (11.0 - 15.0 g/dL) 6.7 L 7.3 L Hct (33.0 - 45.0 %) 20.9 L 22.9 L MCV (81.0 - 99.0 fL) 91.3 MCH (27.0 - 33.0 pg) 29.3 MCHC (33.0 - 37.0 g/dL) 32.1 L RDW (11.5 - 14.5 %) 16.0 H Plt Count (150 - 400 x10 3/uL) 121 L MPV (7.0 - 9.0 fL) 9.2 H Neut % (Auto) (56.0 - 77.0 %) 76.2 Lymph % (Auto) (14.0 - 32.0 %) 10.3 L [place] % (Auto) (4.8 - 9.0 %) 11.3 H Eos % (Auto) (0.3 - 3.7 %) 1.6 Baso % (Auto) (0.0 - 2.0 %) 0.1 Neut # (Auto) (2.0 - 7.6 x10 3/uL) 6.99 Lymph # (Auto) (1.0 - 3.8 x10 3/uL) 0.95 L [place] # (Auto) (0.1 - 0.8 x10 3/uL) 1.04 H Eos # (Auto) (0.0 - 0.2 x10 3/uL) 0.15 Baso # (Auto) (0.0 - 0.2 x10 3/uL) 0.01 Abs Immat Gran (auto) (0.00 - 0.03 x10 3/uL) 0. 05 H Add Manual Diff NO Immature Gran % (0.0 - 2.0 %) 0.5 Nucleated RBC % (0 - 0 %) 0.0 Nucleated RBCs # (Man) (0.0 - 0.1 x10 3/uL) 0.0 0 Laboratory Tests 06/26 06/26 0444 0444 Chemistry Magnesium (1.80 - 2.40 mg/dL) 1.68 L B-Natriuretic Peptide (0 - 100 PG/ML) 223.0 H Radiology data: Recent Impressions: RADIOLOGY - XR CHEST 1 V 06/26 0611 Report Impression - Status: SIGNED Entered: 06/26/2021 5918 IMPRESSION: No obvious infiltrates or consolidations. Impression By: [email or web address] - Momo Weiner M.D. Diagnosis, Assessment Plan Plan discussed with: patient, nurse Free Text DxA P Notes Free Text DxA P Notes: 61 YO female with MHx of CAD with prior PCI/MIKHAIL to LAD (05/2021), HTN, DM, CVA, HLD who has been having angina. She was admitted electively on 06/23/21 for staged PCI to right PDA and RCA. The patient had successul PCI of the ostial PDA with MIKHAIL. However, the patient developed dissection of the proximal to mid RCA post balloon angioplasty. Im pella LVAD was inserted for stability. This morning the patient was doing well, awake and alert, no chest pain, and no SOB. Had episode of hypotension which responded to 500 ml IVF challenge. 1. Coronary artery disease 05/12/2021: 3 stents to LAD 06/23/21: PCI/MIKHAIL of ostial PDA RCA dissection s/p Impella LVAD support - dc'd on 06/24 continue DAPT, BB, statin 2. Hypertension off levophed BP normotensive continue BB, hold losartan 3. Diabetes mellitus continue lantus and insulin sliding scale 4. Hyperlipidemia continue statin 5. RCFA bleeding during Impella removal s/p repa ir R groin bruise hgb 7.8->7.3->6.7 - transfus e 1 unit PRBC, give IV lasix 20 mg post transfusion R groin US 6. Fluid overload - stable post diuresis negtive fluid balance 1.9L given IV Lasix 40 mg x2 with great diuresis PT/OT, mobilize OOB at 1330 Electronically Signed by Inga Robertson MD on at 0801 RPT #:[id number] END OF REPORT 2021-06-25 17:14:00-00:00 [id number] [address] PATIENT NAME: TAMY MARTINEZ ADMIT DATE: 0 06/23/21 ACCOUNT NO: [id number] ROOM NO: [facility] [place] AGE: 61 REPORT TYPE: eECHOCARDIOGRAM REPORT SEX: F ADMITTING PHYSICIAN:Alejandra Zeng MD ATTENDING PHYSICIAN:Aeljandra Zeng MD *[address] [address] Limited Transthoracic Echocardiogram Patient: Tamy Martinez Study Date: 06/23/2021 BP: Location: [facility] URN: [id number] : 1960 Age: 61 Height: 60 in / 152.4 cm Gender: F Weight: 213 .6 lb / 97.1 kg BMI/BSA: 41.8 kg/m 2 / 1.92 m 2 *Ordering Physician: * Jazmine Pollack NP *Interpreting Physician: * Inga Robertson MD *Maintenance Leader: * [place] Study data: Transthoracic echocardiogram, limite d study. Limited 2D and limited spectral Doppler. Findings Left ventricle: The cavity size is normal. Wall thickness is normal. Systolic function is normal. The estimated eject ion fraction is 55-59%. Wall motion is normal; there are no regional wal l motion abnormalities. Impella inplace at 3.4cm. Aorta: Aortic root: The aortic root is normal i n size. Pericardium: A trivial pericardial effusion is i dentified anterior to the heart. Systemic veins: Inferior vena cava: The vessel is normal in size . PATIENT NAME: TAMY MARTINEZ ACCOUNT #: [id number] Measurements Left ventricle Value 05/13/2021 Ref IVORY, LAX 3.9 cm 4.7 3.8 - 5.2 ESD, LAX 2.8 cm 2.9 2.2 - 3.5 ESD/bsa, 1.5 cm/m 2 1.4 1.3 - LAX 2.1 FS, LAX 28 % 37 27 - 45 PW, ED 1.0 cm 1.0 0.6 - 0.9 IVS/PW, ED 0.95 1.13 ------- EF 55 % 67 54 - 74 Ventricular septum Value 05/13/2021 Ref IVS, ED 1.0 cm 1.1 0.6 - 0.9 Right ventricle Value 05/13/2021 Ref IVORY, LAX 2.5 cm 3.2 ------- Conclusions Summary: 1. Left ventricle: The cavity size is normal. Wa ll thickness is normal. Systolic function is normal. The estimated ejec tion fraction is 55-59%. Wall motion is normal; there are no reg ional wall motion abnormalities. 2. Pericardium, extracardiac: A trivial pericard ial effusion is identified anterior to the heart. Prepared and electronically signed by Inga Robertson MD 06/25/2021 17:13 Electronically Signed by Inga Robertson MD on 0 06/25/21 at 1714 PATIENT NAME: TAMY MARTINEZ ACCOUNT #: [id number] 2021-06-25 14:35:00-00:00 [facility] Cardiothoracic Surgery Prog REPORT#:[id number] REPORT STATUS: Signed DATE:06/25/21 TIME: 1434 PATIENT: TAMY MARTINEZ UNIT #: [id number] ROOM/BED: [place] [address] : [birth year] AGE: 61 SEX: F ATTEND: Conrado Zeng MD ADM AUTHOR: Loly Agee * ALL edits or amendments must be made on the Wooop/computer document * General Post-op: day 1 Status post: 06/24 S/p 1. Exploration of right common femoral artery. 2. Repair of right common femoral artery. Subjective Chief Complaint: Follow up right groin exploration Review of Systems Constitutional: Denies: fever, malaise. Allergy/Immun: Denies: allergic reaction. Respiratory: Denies: SOB. GI: Denies: abdominal pain, nausea, vomiting. Heme: Denies: bleeding. Neuro: Denies: dizziness, headache, vision change. Objective General VS/I O Vital Signs Date Temp Pulse Resp B/P B/P Mean Pulse Ox FiO2 06/24-06/25 96.2-97.8 66-89 11-45 83-142/41-58 53-84 86-100 Last Documented: Result Date Time Pulse Ox 99 06/25 0800 B/P 91/45 06/25 0800 B/P Mean 65 06/25 0800 Pulse 75 06/25 0800 Resp 13 06/25 0800 O2 Delivery Nasal cannula 06/25 0749 O2 Flow Rate 2 06/25 0749 Temp 97.8 06/25 0415 FiO2 28 06/24 0915 24 hour I O ending at 0700: 06/25 0700 06/24 1900 Intake Total 2747.00 4179.00 Output Total 450 600 Balance 2297.00 3579.00 Intake, IV 2597.00 4079.00 Intake, Oral 150 100 Intake, Oral 0 Supplement Number 0 0 Bowel Movements Output, Urine 450 600 Patient 219 lb Weight Weight Bed scale Measurement Method PATIENT WEIGHT: Weight (lb): 218 Weight (oz): 11.18 Weight (kg): 99.200 Physical Exam General appearance: obese, a lert, oriented, mental status normal, no respiratory distress Wound/incision: Location: right groin Site condition: dressing intact HEENT: anicteric Cardiovascular: normal heart sounds, regular rat e rhythm Respiratory: aerating well, clear to auscultatio n, symmetric expansion, no distress Abdomen: soft, non-tender, no distention Extremities: moves all 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, 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 3, normal speech, n o motor deficits Psychiatry: normal affect, normal mood Current Medications Medications: Active Meds + DC'd Last 24 Hrs Lidocaine (LIDODERM) 1 PATCH DAILY TOPICAL Furosemide (LASIX 40 mg/4 mL INJECTION) 40 MG ON CE ONE IV (DC) Calcium Chloride (CALCIUM CHLORIDE) 2 GM ONCE ON E IV (DC) Sodium Chloride (SODIUM CHLORIDE 0.9%) 100 ML Insulin Human Regular (HUMAN INSULIN REG) 5 UNIT S ONCE ONE IV (DC) Sodium Chloride (SODIUM CHLORIDE 0.9%) 500 ML NIRAV SRUTHI ONCE ONE IV (DC) Dextrose/Water (DEXTROSE 50% W SYRINGE) 50 ML ON CE ONE IV (DC) Insulin Human Regular (HUMAN INSULIN REG) 10 UNI TS ONCE ONE IV (DC) Sodium Chloride (SODIUM CHLORIDE 0.9%) 500 ML NIRAV SRUTHI ONCE ONE IV (DC) Calcium Gluconate/Sodium Chloride (CALCIUM GLUC 1GM/NS 50ML) 50 ML ONCE ONE IV (DC) Magnesium Sulfate/Dextrose (MAGNESIUM SULFATE 1G M/D5W 100ML) 100 ML ONCE ONE IV (DC) Dexamethasone Sodium Phosphate (DECADRON) 0 .STK -MED ONE .ROUTE (DC) Lidocaine HCl (XYLOCAINE) 0 .STK-MED ONE .ROUTE (DC) Ondansetron HCl (ZOFRAN) 0 .STK-MED ONE .ROUTE ( DC) Sevoflurane (ULTANE) 0 .STK-MED ONE INH (DC) Epinephrine (EPINEPHrine) 0 .STK-MED ONE IV (DC) Sodium Bicarbonate (SODIUM BICARBONATE) 0 .STK-M ED ONE IV (DC) Thrombin (RECOTHROM) 0 .STK-MED ONE TOPICAL (DC) Sodium Chloride (SODIUM CHLORIDE 0.9%) 500 ML .S TK-MED ONE IV (DC) Etomidate (AMIDATE) 0 .STK-MED ONE IV (DC) Heparin Sodium/Sodium Chloride (HEPARIN 2,000 UN ITS/NS 1,000mL) 1,000 ML .STK-MED ONE IV (DC) Insulin Human Lispro (HUMALOG) 0 AC HS SUBQ Methylprednisolone Sodium Succinate (Solu-Medrol 125 MG Vial) 0 .STK-MED ONE IV (DC) Norepinephrine Bitartrate (NOREPINEPHRINE 8 MG/N S 250 ML) 250 ML .STK-MED ONE IV (DC) Phenylephrine HCl (MARYJANE-SYNEPHRINE 1000MCG/NS 10M L INJ) 0 .STK-MED ONE I- CHAVEZ (DC) Fentanyl Citrate (SUBLIMAZE) 0 .STK-MED ONE .RO [place] (DC) Heparin Sodium/Sodium Chloride (HEPARIN 1,000 UN ITS/NS 500ML) 500 ML .STK- MED ONE IV (DC) Lidocaine HCl (XYLOCAINE 1%) 0 .STK-MED ONE .RO [place] (DC) Midazolam HCl (VERSED) 0 .STK-MED ONE .ROUTE (DC ) Dextrose/Water (DEXTROSE 50% W SYRINGE) 25 ML DIR PRN IV (CKD) Dextrose/Water (DEXTROSE 50% W SYRINGE) 50 ML DIR PRN IV (CKD) Glucagon (GLUCAGON) 1 MG ASDIR PRN IM Aspirin (ASPIRIN) 81 MG DAILY PO Clopidogrel Bisulfate (Plavix) 75 MG DAILY PO Duloxetine HCl (CYMBALTA) 20 MG DAILY PO Isosorbide Dinitrate (ISORDIL) 60 MG DAILY PO (D C) Losartan Potassium (COZAAR) 50 MG DAILY PO Sodium Chloride (SODIUM CHLORIDE 0.9%) 500 ML DA ELADIO MISC Atorvastatin Calcium (LIPITOR) 40 MG BEDTIME PO Gabapentin (NEURONTIN) 600 MG BID PO Insulin Glargine (Lantus/Semglee) 25 UNIT BEDTIM E SUBQ Metoprolol Succinate (TOPROL XL) 12.5 MG BID PO Mupirocin (BACTROBAN 2% 22 GM OINTMENT) 1 APPLIC BID NASAL Glucagon (GLUCAGON) 1 MG ASDIR PRN IM Heparin Sodium (HEPARIN 5000 UNITS/ML) 0 ASDIR P RN IV Heparin Sodium (Porcine) (HEPARIN 25,000 UNITS/ 1/2NS 500ML) 500 ML ASDIR IV (CKD) Hydrocodone Bitart/Acetaminophen (NORCO 10/325) 1 TAB Q6H PRN PRN PO Morphine Sulfate (morphine SULFATE) 4 MG Q2H PRN PRN IV Ondansetron HCl (ZOFRAN) 4 MG Q8H PRN PRN IV Sodium Chloride (SODIUM CHLORIDE 0.9%) 1,000 ML .Q24H IV (DC) Heparin Sodium (HEPARIN 5000 UNITS/ML) 12,500 UN IT DAILY PRN PRN I- CATHETER (DC) Dextrose/Water (DEXTROSE 5% WATER) 500 ML Heparin Sodium/Dextrose (HEPARIN 25,000 UNITS/D5 W 500ML) 500 ML DAILY PRN PRN I-CATHETER (DC) Results Findings/Data: Laboratory Tests 06/24 1651 Blood Gas Puncture Site Central Line O2 Saturation (90 - 100 %) 99.8 ABG pH (7.35 - 7.45) 7.268 *L ABG pCO2 (35.0 - 45 mmHg) 46.0 H ABG pO2 (80 - 100.0 mmHg) 247.9 *H ABG HCO3 (22.0 - 26.0 MMOL/L) 21.0 L ABG Total CO2 22.4 ABG Base Excess (-4.0 - 4.0 MMOL/L) -5.9 L ABG Hematocrit (33.0 - 45.0 %) 21 L ABG Hemoglobin (11.0 - 15.0 G/DL) 7.0 L Sodium (134 - 147 MEQ/L) 139 Potassium (3.4 - 5.0 MEQ/L) 3.5 Chloride (100 - 108 MEQ/L) 100 Ionized Calcium (1.12 - 1.32 MMOL/L) 1.09 L Lactic Acid (0.9 - 1.7 mmol/l) 6.5 *H Laboratory Tests 06/25 06/25 06/25 06/25 06/25 1127 0729 0340 0340 0339 Chemistry Sodium (134 - 147 mEq/L) 140 Potassium (3.4 - 5.0 mEq/L) 4.9 Chloride (100 - 108 mEq/L) 115 H Carbon Dioxide (21 - 33 mEq/l) 21 Anion Gap (0 - 20) 9 BUN (7 - 18 mg/dL) 16 Creatinine (0.6 - 1.3 mg/dL) 1.2 Glomerular Filtr Rate (90 - 95) 46.0 L Glucose (70 - 110 mg/dL) 339 H POC Glucose (70 - 110 MG/DL) 265 H 288 H Lactic Acid (0.4 - 1.9 mmol/L) 2.0 H Calcium (8.0 - 10.5 mg/dL) 7.1 L Ionized Calcium [place] (1.12 - 1.32 MMOL/L) 1.01 L Magnesium (1.80 - 2.40 mg/dL) 2.48 H 06/25 06/25 06/24 06/24 06/24 0018 0018 2024 2024 2002 Chemistry Sodium (134 - 147 mEq/L) 139 140 Potassium (3.4 - 5.0 mEq/L) 4.4 5.5 H Chloride (100 - 108 mEq/L) 114 H 115 H Carbon Dioxide (21 - 33 mEq/l) 19 L 20 L Anion Gap (0 - 20) 11 11 BUN (7 - 18 mg/dL) 13 14 Creatinine (0.6 - 1.3 mg/dL) 1.2 1.2 Glomerular Filtr Rate (90 - 95) 46.0 L 46.0 L Glucose (70 - 110 mg/dL) 425 H 312 H POC Glucose (70 - 110 MG/DL) 301 H Lactic Acid (0.4 - 1.9 mmol/l) 3.0 H 2.2 H Calcium (8.0 - 10.5 mg/dL) 6.7 L 6.5 L Ionized Calcium [place] (1.12 - 1.32 MMOL/L) 0.89 L Phosphorus (2.5 - 4.9 MG/DL) 3.5 Magnesium (1.80 - 2.40 mg/dL) 1.99 Total Bilirubin (0.0 - 1.0 mg/dL) 0.30 AST (15 - 37 IUnit/L) 78 H ALT (30 - 65 IUnit/L) 18 L Total Alk Phosphatase (20 - 125 IUnit/L) 55 Total Protein (6.4 - 8.2 g/dL) 5.0 L Albumin (3.4 - 5.0 g/dL) 2.80 L 06/24 1650 Chemistry POC Creatinine (0.6 - 1.0 mg/dL) 1.2 H POC Glucose (mg/dL) (MG/DL) 295 Laboratory Tests 06/24 1644 Coagulation Activated Coag Time (74 - 137 SEC) 136 Laboratory Tests 06/25 Hematology WBC (4.5 - 11.0 x10 3/uL) 12.4 H 24.2 H RBC (3.54 - 5.02 x10 6/uL) 2.66 L 3.15 L Hgb (11.0 - 15.0 g/dL) 7.8 L 9.2 L Hct (33.0 - 45.0 %) 24.8 L 29.5 L MCV (81.0 - 99.0 fL) 93.2 93.7 MCH (27.0 - 33.0 pg) 29.3 29.2 MCHC (33.0 - 37.0 g/dL) 31.5 L 31.2 L RDW (11.5 - 14.5 %) 15.9 H 16.0 H Plt Count (150 - 400 x10 3/uL) 133 L 239 MPV (7.0 - 9.0 fL) 9.7 H 9.6 H Neut % (Auto) (56.0 - 77.0 %) 90.8 H 93.6 H Lymph % (Auto) (14.0 - 32.0 %) 2.4 L 1.4 L [place] % (Auto) (4.8 - 9.0 %) 6.5 4.3 L Eos % (Auto) (0.3 - 3.7 %) 0.0 L 0.0 L Baso % (Auto) (0.0 - 2.0 %) 0.0 0.1 Neut # (Auto) (2.0 - 7.6 x10 3/uL) 11.23 H 22.6 6 H Lymph # (Auto) (1.0 - 3.8 x10 3/uL) 0.30 L 0.3 3 L [place] # (Auto) (0.1 - 0.8 x10 3/uL) 0.80 1.05 H Eos # (Auto) (0.0 - 0.2 x10 3/uL) 0.00 0.00 Baso # (Auto) (0.0 - 0.2 x10 3/uL) 0.00 0.03 Abs Immat Gran (auto) (0.00 - 0.03 x10 3/uL) 0. 04 H 0.15 H Add Manual Diff NO NO Immature Gran % (0.0 - 2.0 %) 0.3 0.6 Nucleated RBC % (0 - 0 %) 0.0 0.0 Nucleated RBCs # (Man) (0.0 - 0.1 x10 3/uL) 0.0 0 0.00 Diagnosis, Assessment Plan Hospital course to date: Ms. Martinez is a 61-year-old female who had an Im pella placed for cardiogenic shock. She has recovered completely and she was ready for the Impella to be removed today. The patient was taken to the operations label clerk, and after removal of Impella, attempts were made to close the common femoral artery defect with Perclose device unsuccessfully. The patient deve loped significant right groin hematoma and hence int raoperative cardiovascular consults were obtained ( Dr Whitt's op report). 1. Exploration of right common femoral artery. 2. Repair of right common femoral artery. 06/25 Doing well, alert and oriented Monitor right groin hematoma. Groin soft, mild t enderness Bilateral feet with palpable pulses Per cardiology, transfer to [address] Whitt Consultants: cardiology, cardiovascular surgery, critical/waste machine tender, hospitalist at 1537 at 0756 RPT #:[id number] END OF REPORT 2021-06-25 13:33:00-00:00 [facility] ([facility]) Hospitalist Progress Note REPORT#:[id number] REPORT STATUS: Signed DATE:06/25/21 TIME: 1333 PATIENT: TAMY MARTINEZ UNIT #: [id number] ROOM/BED: [place] [address] : 64 AGE: 61 SEX: F ATTEND: Conrado Zeng MD ADM AUTHOR: Agnes Almeida MD * ALL edits or amendments must be made on the Wooop/computer document * Subjective Chief complaint: she complaint of neck pain Review of Systems Constitutional: Denies: fatigue, fever, lethargy. Respiratory: Denies: productive cough (sputum), SOB, wheezing . Cardiovascular: Denies: chest pain, ELLIS (dyspnea on exertion), e agata, orthopnea. GI: Denies: abdominal pain, nausea, vomiting. : Denies: dysuria, flank pain, frequency, hematuri a. Objective General VS/I O: Vital Signs: Date Time Temp Pulse Resp B/P B/P Pulse O2 O2 F low FiO2 Mean Ox Delivery Rate /15 0800 75 13 91/45 65 99 04/15 0749 99 Nasal 2 cannula 06/25 0730 Nasal 2 cannula / 0730 80 25 95/44 63 98 04/15 0700 73 13 101/49 71 100 04/15 0600 80 18 101/46 67 99 04/15 0546 84 28 108/51 74 100 04/15 0530 86 11 105/54 75 99 04/15 0500 79 12 110/55 77 99 04/15 0430 78 13 107/55 78 99 04/15 0415 36.6 04/15 0400 78 12 113/55 78 99 04/15 0330 77 13 118/51 81 100 04/15 0314 79 13 119/57 82 100 04/15 0230 84 12 108/54 76 98 04/15 0200 77 12 98/46 67 98 04/15 0130 77 15 103/47 63 98 04/15 0100 80 16 94/46 64 88 04/15 0030 80 13 92/54 72 89 04/15 0022 82 15 89/53 69 88 04/15 0021 82 14 100/51 70 92 04/15 0000 83 13 109/54 76 91 /14 2345 82 14 94/53 71 92 /14 2330 89 14 98/51 73 86 04/14 2315 79 19 96/52 64 94 /14 2300 77 12 115/58 83 94 14 2245 75 13 114/58 83 94 /14 2230 36.1 06/24 2230 Nasal 2 cannula 06/24 2230 75 13 114/51 72 96 /14 2215 78 15 111/53 77 94 /14 2200 79 14 105/52 75 100 /14 2145 79 13 112/53 73 95 /14 2130 79 14 105/52 72 99 /14 2115 77 13 99/51 71 100 /14 2100 74 15 83/46 59 100 /14 2046 80 20 95/44 64 99 /14 2030 76 14 119/47 68 100 /14 2014 79 13 100/49 70 100 04/14 2000 80 12 120/55 79 100 04/14 1945 79 13 117/49 71 100 /14 1930 75 13 126/51 74 100 /14 1916 79 13 106/53 69 100 06/24 1907 79 13 89/50 60 100 06/24 1901 80 15 83/41 53 100 06/24 1830 77 15 102/47 65 100 Simple 8 mask 06/24 1815 76 15 99/45 63 100 Simple 8 mask 06/24 1800 35.7 77 15 142/55 84 100 Simple 8 mask 06/24 1501 66 45 110/54 78 100 06/24 1430 66 18 98/52 73 100 06/24 1400 67 13 91/45 65 100 24 hour I O ending at 0700: 06/25 0700 06/24 1900 Intake Total 2747.00 4179.00 Output Total 450 600 Balance 2297.00 3579.00 Intake, IV 2597.00 4079.00 Intake, Oral 150 100 Intake, Oral 0 Supplement Number 0 0 Bowel Movements Output, Urine 450 600 Patient 99.2 kg Weight Weight Bed scale Measurement Method PATIENT WEIGHT: Weight (lb): 218 Weight (oz): 11.18 Weight (kg): 99.200 Medications: Active Meds + DC'd Last 24 Hrs Lidocaine (LIDODERM) 1 PATCH DAILY TOPICAL Furosemide (LASIX 40 mg/4 mL INJECTION) 40 MG ON CE ONE IV (DC) Calcium Chloride (CALCIUM CHLORIDE) 2 GM ONCE ON E IV (DC) Sodium Chloride (SODIUM CHLORIDE 0.9%) 100 ML Insulin Human Regular (HUMAN INSULIN REG) 5 UNIT S ONCE ONE IV (DC) Sodium Chloride (SODIUM CHLORIDE 0.9%) 500 ML NIRAV SRUTHI ONCE ONE IV (DC) Dextrose/Water (DEXTROSE 50% W SYRINGE) 50 ML ON CE ONE IV (DC) Insulin Human Regular (HUMAN INSULIN REG) 10 UNI TS ONCE ONE IV (DC) Sodium Chloride (SODIUM CHLORIDE 0.9%) 500 ML NIRAV SRUTHI ONCE ONE IV (DC) Calcium Gluconate/Sodium Chloride (CALCIUM GLUC 1GM/NS 50ML) 50 ML ONCE ONE IV (DC) Magnesium Sulfate/Dextrose (MAGNESIUM SULFATE 1G M/D5W 100ML) 100 ML ONCE ONE IV (DC) Dexamethasone Sodium Phosphate (DECADRON) 0 .STK -MED ONE .ROUTE (DC) Lidocaine HCl (XYLOCAINE) 0 .STK-MED ONE .ROUTE (DC) Ondansetron HCl (ZOFRAN) 0 .STK-MED ONE .ROUTE ( DC) Sevoflurane (ULTANE) 0 .STK-MED ONE INH (DC) Epinephrine (EPINEPHrine) 0 .STK-MED ONE IV (DC) Sodium Bicarbonate (SODIUM BICARBONATE) 0 .STK-M ED ONE IV (DC) Thrombin (RECOTHROM) 0 .STK-MED ONE TOPICAL (DC) Sodium Chloride (SODIUM CHLORIDE 0.9%) 500 ML .S TK-MED ONE IV (DC) Etomidate (AMIDATE) 0 .STK-MED ONE IV (DC) Heparin Sodium/Sodium Chloride (HEPARIN 2,000 UN ITS/NS 1,000mL) 1,000 ML .STK-MED ONE IV (DC) Insulin Human Lispro (HUMALOG) 0 AC HS SUBQ Methylprednisolone Sodium Succinate (Solu-Medrol 125 MG Vial) 0 .STK-MED ONE IV (DC) Norepinephrine Bitartrate (NOREPINEPHRINE 8 MG/N S 250 ML) 250 ML .STK-MED ONE IV (DC) Phenylephrine HCl (MARYJANE-SYNEPHRINE 1000MCG/NS 10M L INJ) 0 .STK-MED ONE I- CHAVEZ (DC) Fentanyl Citrate (SUBLIMAZE) 0 .STK-MED ONE .ROU TE (DC) Heparin Sodium/Sodium Chloride (HEPARIN 1,000 UN ITS/NS 500ML) 500 ML .STK- MED ONE IV (DC) Lidocaine HCl (XYLOCAINE 1%) 0 .STK-MED ONE .ROU TE (DC) Midazolam HCl (VERSED) 0 .STK-MED ONE .ROUTE (DC ) Dextrose/Water (DEXTROSE 50% W SYRINGE) 25 ML DIR PRN IV (CKD) Dextrose/Water (DEXTROSE 50% W SYRINGE) 50 ML DIR PRN IV (CKD) Glucagon (GLUCAGON) 1 MG ASDIR PRN IM Aspirin (ASPIRIN) 81 MG DAILY PO Clopidogrel Bisulfate (Plavix) 75 MG DAILY PO Duloxetine HCl (CYMBALTA) 20 MG DAILY PO Isosorbide Dinitrate (ISORDIL) 60 MG DAILY PO (D C) Losartan Potassium (COZAAR) 50 MG DAILY PO Sodium Chloride (SODIUM CHLORIDE 0.9%) 500 ML DA ELADIO MISC Atorvastatin Calcium (LIPITOR) 40 MG BEDTIME PO Gabapentin (NEURONTIN) 600 MG BID PO Insulin Glargine (Lantus/Semglee) 25 UNIT BEDTIM E SUBQ Metoprolol Succinate (TOPROL XL) 12.5 MG BID PO Mupirocin (BACTROBAN 2% 22 GM OINTMENT) 1 APPLIC BID NASAL Insulin Human Lispro (HUMALOG) 0 AC HS SUBQ (DC) Dextrose/Water (DEXTROSE 50% W SYRINGE) 25 ML DIR PRN IV (DC) Dextrose/Water (DEXTROSE 50% W SYRINGE) 50 ML DIR PRN IV (DC) Glucagon (GLUCAGON) 1 MG ASDIR PRN IM Heparin Sodium (HEPARIN 5000 UNITS/ML) 0 ASDIR P RN IV Heparin Sodium (Porcine) (HEPARIN 25,000 UNITS/ 1/2NS 500ML) 500 ML ASDIR IV (CKD) Hydrocodone Bitart/Acetaminophen (NORCO 10/325) 1 TAB Q6H PRN PRN PO Morphine Sulfate (morphine SULFATE) 4 MG Q2H PRN PRN IV Ondansetron HCl (ZOFRAN) 4 MG Q8H PRN PRN IV Sodium Chloride (SODIUM CHLORIDE 0.9%) 1,000 ML .Q24H IV (DC) Atropine Sulfate (ATROPINE SULFATE 0.1MG/ML SYR) 0.5 MG ASDIR PRN IV (DC ) Heparin Sodium (HEPARIN 5000 UNITS/ML) 12,500 UN IT DAILY PRN PRN I- CATHETER (DC) Dextrose/Water (DEXTROSE 5% WATER) 500 ML Heparin Sodium/Dextrose (HEPARIN 25,000 UNITS/D5 W 500ML) 500 ML DAILY PRN PRN I-CATHETER (DC) Sodium Chloride (SODIUM CHLORIDE 0.9%) 500 ML DIR PRN IV (DC) Physical Exam General appearance: alert, awake, oriented Head/Eyes: atraumatic, normal conjunctiva/sclera , normal eyelids/periorb., normocephalic Neck: full range of motion, non-tender, normal t hyroid, no JVD Cardiovascular: normal heart sounds, regular rat e rhythm Respiratory: aerating well, clear to auscultatio n Abdomen: non-tender, normal bowel sounds, soft, no distention Extremities: moves all, no calf tenderness, no e agata 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, oriented X 3, CNII-XII intact, normal speech, no motor deficits, no sensory deficits Skin: dry, intact Results Findings/Data: Laboratory Tests 06/24 1651 Blood Gas Puncture Site Central Line O2 Saturation (90 - 100 %) 99.8 ABG pH (7.35 - 7.45) 7.268 *L ABG pCO2 (35.0 - 45 mmHg) 46.0 H ABG pO2 (80 - 100.0 mmHg) 247.9 *H ABG HCO3 (22.0 - 26.0 MMOL/L) 21.0 L ABG Total CO2 22.4 ABG Base Excess (-4.0 - 4.0 MMOL/L) -5.9 L ABG Hematocrit (33.0 - 45.0 %) 21 L ABG Hemoglobin (11.0 - 15.0 G/DL) 7.0 L Sodium (134 - 147 MEQ/L) 139 Potassium (3.4 - 5.0 MEQ/L) 3.5 Chloride (100 - 108 MEQ/L) 100 Ionized Calcium (1.12 - 1.32 MMOL/L) 1.09 L Lactic Acid (0.9 - 1.7 mmol/l) 6.5 *H Laboratory Tests 06/25 06/25 06/25 06/25 06/25 1127 0729 0340 0340 0339 Chemistry Sodium (134 - 147 mEq/L) 140 Potassium (3.4 - 5.0 mEq/L) 4.9 Chloride (100 - 108 mEq/L) 115 H Carbon Dioxide (21 - 33 mEq/l) 21 Anion Gap (0 - 20) 9 BUN (7 - 18 mg/dL) 16 Creatinine (0.6 - 1.3 mg/dL) 1.2 Glomerular Filtr Rate (90 - 95) 46.0 L Glucose (70 - 110 mg/dL) 339 H POC Glucose (70 - 110 MG/DL) 265 H 288 H Lactic Acid (0.4 - 1.9 mmol/L) 2.0 H Calcium (8.0 - 10.5 mg/dL) 7.1 L Ionized Calcium [place]illan (1.12 - 1.32 MMOL/L) 1.01 L Magnesium (1.80 - 2.40 mg/dL) 2.48 H 06/25 06/25 06/24 06/24 06/24 0018 0018 2024 2024 2002 Chemistry Sodium (134 - 147 mEq/L) 139 140 Potassium (3.4 - 5.0 mEq/L) 4.4 5.5 H Chloride (100 - 108 mEq/L) 114 H 115 H Carbon Dioxide (21 - 33 mEq/l) 19 L 20 L Anion Gap (0 - 20) 11 11 BUN (7 - 18 mg/dL) 13 14 Creatinine (0.6 - 1.3 mg/dL) 1.2 1.2 Glomerular Filtr Rate (90 - 95) 46.0 L 46.0 L Glucose (70 - 110 mg/dL) 425 H 312 H POC Glucose (70 - 110 MG/DL) 301 H Lactic Acid (0.4 - 1.9 mmol/l) 3.0 H 2.2 H Calcium (8.0 - 10.5 mg/dL) 6.7 L 6.5 L Ionized Calcium [place]ill[place] (1.12 - 1.32 MMOL/L) 0.89 L Phosphorus (2.5 - 4.9 MG/DL) 3.5 Magnesium (1.80 - 2.40 mg/dL) 1.99 Total Bilirubin (0.0 - 1.0 mg/dL) 0.30 AST (15 - 37 IUnit/L) 78 H ALT (30 - 65 IUnit/L) 18 L Total Alk Phosphatase (20 - 125 IUnit/L) 55 Total Protein (6.4 - 8.2 g/dL) 5.0 L Albumin (3.4 - 5.0 g/dL) 2.80 L 06/24 1651 Chemistry POC Creatinine (0.6 - 1.0 mg/dL) 1.2 H POC Glucose (mg/dL) (MG/DL) 295 Laboratory Tests 06/24 1645 Coagulation Activated Coag Time (74 - 137 SEC) 136 Laboratory Tests 06/25 06/24 0415 2025 Hematology WBC (4.5 - 11.0 x10 3/uL) 12.4 H 24.2 H RBC (3.54 - 5.02 x10 6/uL) 2.66 L 3.15 L Hgb (11.0 - 15.0 g/dL) 7.8 L 9.2 L Hct (33.0 - 45.0 %) 24.8 L 29.5 L MCV (81.0 - 99.0 fL) 93.2 93.7 MCH (27.0 - 33.0 pg) 29.3 29.2 MCHC (33.0 - 37.0 g/dL) 31.5 L 31.2 L RDW (11.5 - 14.5 %) 15.9 H 16.0 H Plt Count (150 - 400 x10 3/uL) 133 L 239 MPV (7.0 - 9.0 fL) 9.7 H 9.6 H Neut % (Auto) (56.0 - 77.0 %) 90.8 H 93.6 H Lymph % (Auto) (14.0 - 32.0 %) 2.4 L 1.4 L [place] % (Auto) (4.8 - 9.0 %) 6.5 4.3 L Eos % (Auto) (0.3 - 3.7 %) 0.0 L 0.0 L Baso % (Auto) (0.0 - 2.0 %) 0.0 0.1 Neut # (Auto) (2.0 - 7.6 x10 3/uL) 11.23 H 22.6 6 H Lymph # (Auto) (1.0 - 3.8 x10 3/uL) 0.30 L 0.33 L [place] # (Auto) (0.1 - 0.8 x10 3/uL) 0.80 1.05 H Eos # (Auto) (0.0 - 0.2 x10 3/uL) 0.00 0.00 Baso # (Auto) (0.0 - 0.2 x10 3/uL) 0.00 0.03 Abs Immat Gran (auto) (0.00 - 0.03 x10 3/uL) 0. 04 H 0.15 H Add Manual Diff NO NO Immature Gran % (0.0 - 2.0 %) 0.3 0.6 Nucleated RBC % (0 - 0 %) 0.0 0.0 Nucleated RBCs # (Man) (0.0 - 0.1 x10 3/uL) 0.0 0 0.00 Diagnosis, Assessment Plan Consultants: cardiology, cardiovascular surgery, critical/waste machine tender, hospitalist Free Text DxA P Notes Free text DxA P notes: angina /CAD hypotension -- cardiagenic HTN leucocytosis DM HLD anemia -- due to acute blood loss angina/CAD LHC -- PCI cardiology consult continue home med plavix /ASA continue home medication hypotension cardiogenic--impella was inserted resolve BP-- stable leucocytosis no sign of infection monitor cbc DM- sliding scale continue home med HTN-- monitor stable HLD -- continue home med anemia -- due to acute blood loss surgery -- 06/24 1. Exploration of right common femoral artery. 2. Repair of right common femoral artery. 06/25 -- she complaint of neck pain -lidocaine patch -- she had artery repair surgery yesterday -- Hb -9.2--7.8 -- monitor BP and H H Quality: Gen Med Crit Care Current Medications Current medication review: Current Medications Sig/Nandini Start time Last Medication Dose Route Stop Time Status Admin Dexamethasone Sodium 0 .STK-MED ONE 06/24 1732 DC Phosphate .ROUTE Lidocaine HCl 0 .STK-MED ONE 06/24 1732 DC .ROUTE Ondansetron HCl 0 .STK-MED ONE 06/24 1732 DC .ROUTE Sevoflurane 0 .STK-MED ONE 06/24 1732 DC INH Epinephrine 0 .STK-MED ONE 06/24 1713 DC 06/24 IV 1715 Sodium Bicarbonate 0 .STK-MED ONE 06/24 1713 DC 06/24 IV 1715 Thrombin 0 .STK-MED ONE 06/24 1703 DC TOPICAL Sodium Chloride 500 ML .STK-MED ONE 06/24 1650 DC IV Etomidate 0 .STK-MED ONE 06/24 1648 DC IV Heparin Sodium/ 1,000 ML .STK-MED ONE 06/24 16 41 DC 06/24 Sodium Chloride IV 1705 Insulin Human Lispro 0 AC HS 06/24 1630 AC SUBQ 07/24 1629 Methylprednisolone 0 .STK-MED ONE 06/24 1629 DC 06/24 Sodium Succinate IV 1705 Norepinephrine 250 ML .STK-MED ONE 06/24 1626 D C 06/24 Bitartrate IV 1705 Phenylephrine HCl 0 .STK-MED ONE 06/24 1607 DC 06/24 I-CHAVEZ 1705 Fentanyl Citrate 0 .STK-MED ONE 06/24 1533 DC 0 06/24 .ROUTE 1539 Heparin Sodium/ 500 ML .STK-MED ONE 06/24 1533 DC 06/24 Sodium Chloride IV 1539 Lidocaine HCl 0 .STK-MED ONE 06/24 1533 DC 06/11 4 .ROUTE 1539 Midazolam HCl 0 .STK-MED ONE 06/24 1532 DC 06/11 4 .ROUTE 1539 Dextrose/Water 25 ML ASDIR PRN 06/24 1345 CKD IV 07/24 1344 Dextrose/Water 50 ML ASDIR PRN 06/24 1345 CKD IV 07/24 1344 Glucagon 1 MG ASDIR PRN 06/24 1345 AC IM 07/24 1344 Aspirin 81 MG DAILY 06/24 0900 AC 06/24 PO 07/24 0859 0916 Clopidogrel Bisulfate 75 MG DAILY 06/24 0900 AC 06/24 PO 07/24 0859 1435 Duloxetine HCl 20 MG DAILY 06/24 0900 AC 06/24 PO 07/24 0859 0916 Isosorbide Dinitrate 60 MG DAILY 06/24 0900 DA 06/24 PO 07/24 0859 0917 Losartan Potassium 50 MG DAILY 06/24 0900 AC 0 06/24 PO 07/24 0859 0916 Sodium Chloride 500 ML DAILY 06/24 0900 AC MISC 07/24 0859 Magnesium Sulfate 50 ML ONCE ONE 06/24 0830 DC 06/24 IV 06/24 1029 0921 Atorvastatin Calcium 40 MG BEDTIME 06/23 2100 A C 06/23 PO 07/23 205 2032 Gabapentin 600 MG BID 06/23 2100 AC 06/24 PO 07/23 205 0916 Insulin Glargine 25 UNIT BEDTIME 06/23 2100 AC 06/23 SUBQ 07/23 2059 2030 Metoprolol Succinate 12.5 MG BID 06/23 2100 AC 06/24 PO 07/23 205 0917 Mupirocin 1 APPLIC BID 06/23 2100 AC 06/24 NASAL 06/28 0901 0916 Insulin Human Lispro 0 AC HS 06/23 1800 DC 06/11 4 SUBQ 07/23 1749 0916 Dextrose/Water 25 ML ASDIR PRN 06/23 1730 DC IV 07/23 1729 Dextrose/Water 50 ML ASDIR PRN 06/23 1730 DC IV 07/23 1729 Glucagon 1 MG ASDIR PRN 06/23 1730 AC IM 07/23 1729 Heparin Sodium 0 ASDIR PRN 06/23 1730 AC IV 07/23 1729 Heparin Sodium 500 ML ASDIR 06/23 1730 CKD (Porcine) IV 07/23 1729 0301 Hydrocodone Bitart/ 1 TAB Q6H PRN PRN 06/23 173 0 AC Acetaminophen PO 06/28 1729 Morphine Sulfate 4 MG Q2H PRN PRN 06/23 1730 AC 06/24 IV 06/28 1729 0634 Ondansetron HCl 4 MG Q8H PRN PRN 06/23 1730 AC IV 07/23 1729 Sodium Chloride 1,000 ML .Q10H 06/23 1730 AC IV 07/23 1729 1436 Atropine Sulfate 0.5 MG ASDIR PRN 06/23 1430 DC IV 06/24 1423 Heparin Sodium 12,500 UNIT DAILY PRN PRN 06/23 1430 AC Dextrose/Water 500 ML I-CATHETER 07/23 1429 Heparin Sodium/ 500 ML DAILY PRN PRN 06/23 1430 AC 06/23 Dextrose I-CATHETER 07/23 1429 2302 Sodium Chloride 1,000 ML .[id number] 06/23 1430 DC 06/23 IV 06/24 0349 1755 Sodium Chloride 500 ML ASDIR PRN 06/23 1430 DC IV 06/24 1423 Home Medications: GABAPENTIN (NEURONTIN) 600 MG PO BID FOLIC ACID 1 MG PO DAILY METOPROLOL SUCC XL (TOPROL XL) 12.5 MG PO BID ISOSORBIDE DINITRATE (ISORDIL) 60 MG PO DAILY ASPIRIN 81 MG PO DAILY DULoxetine DR (CYMBALTA) 20 MG PO DAILY LOSARTAN (COZAAR) 50 MG PO DAILY ATORVASTATIN (LIPITOR) 40 MG PO BEDTIME METHOTREXATE (RHEUMATREX) 2.5 MG PO Q7D INSULIN ASPART (NovoLOG) Insulin Degludec (TRESIBA FLEXTOUCH U-100 (3mL)) 26 UNITS SUBQ DAILY HYDROcodone/APAP (NORCO 10/325) 1 TAB PO Q6H PRN PRN PAIN [XELJANZ] (Unknown Dose) PO DAILY NITROGLYCERIN (NITROSTAT) 0.4 MG SL Q5M PRN PRN ANGINA CLOPIDOGREL (PLAVIX) 75 MG PO DAILY Electronically Signed by Agnes Almeida MD on 2 at [address] [facility] #:[id number] END OF REPORT 2021-06-25 09:48:00-00:00 [facility] Cardiology Progress Note REPORT#:[id number] REPORT STATUS: Signed DATE:06/25/21 TIME: 09 PATIENT: TAMY MARTINEZ UNIT #: [id number] ROOM/BED: [place] [address] : 64 AGE: 61 SEX: F ATTEND: Conrado Zeng MD ADM AUTHOR: Zoraida Felder RECREATION SUPERINTENDENT * ALL edits or amendments must be made on the [employer] document * Subjective Chief complaint: Awake and alert, on 2LNC states she feels congested and puffy Objective General VS/I O: 24 hour I O ending at 0700: 06/25 0700 06/24 1900 Intake Total 2747.00 4179.00 Output Total 450 600 Balance 2297.00 3579.00 Intake, IV 2597.00 4079.00 Intake, Oral 150 100 Intake, Oral 0 Supplement Number 0 0 Bowel Movements Output, Urine 450 600 Patient 99.2 kg Weight Weight Bed scale Measurement Method Vital Signs: Date Time Temp Pulse Resp B/P B/P Pulse O2 O2 F low FiO2 Mean Ox Delivery Rate 06/25 0800 75 13 91/45 65 99 06/25 0730 80 25 95/44 63 98 06/25 0700 73 13 101/49 71 100 06/25 0600 80 18 101/46 67 99 /15 0546 84 28 108/51 74 100 /15 0530 86 11 105/54 75 99 /15 0500 79 12 110/55 77 99 04/15 0430 78 13 107/55 78 99 04/15 0415 36.6 04/15 0400 78 12 113/55 78 99 /15 0330 77 13 118/51 81 100 /15 0314 79 13 119/57 82 100 /15 0230 84 12 108/54 76 98 /15 0200 77 12 98/46 67 98 04/15 0130 77 15 103/47 63 98 /15 0100 80 16 94/46 64 88 /15 0030 80 13 92/54 72 89 /15 0022 82 15 89/53 69 88 /15 0021 82 14 100/51 70 92 04/15 0000 83 13 109/54 76 91 06/24 2345 82 14 94/53 71 92 06/24 2330 89 14 98/51 73 86 06/24 2315 79 19 96/52 64 94 06/24 2300 77 12 115/58 83 94 06/24 2245 75 13 114/58 83 94 06/24 2230 36.1 06/24 2230 Nasal 2 cannula 04/14 2230 75 13 114/51 72 96 /14 2215 78 15 111/53 77 94 /14 2200 79 14 105/52 75 100 /14 2145 79 13 112/53 73 95 /14 2130 79 14 105/52 72 99 /14 2115 77 13 99/51 71 100 /14 2100 74 15 83/46 59 100 04/14 2046 80 20 95/44 64 99 /14 2030 76 14 119/47 68 100 06/24 2014 79 13 100/49 70 100 /14 2000 80 12 120/55 79 100 04/14 1945 79 13 117/49 71 100 /14 1930 75 13 126/51 74 100 /14 1916 79 13 106/53 69 100 /14 1907 79 13 89/50 60 100 /14 1901 80 15 83/41 53 100 /14 1830 77 15 102/47 65 100 Simple 8 mask 06/24 1815 76 15 99/45 63 100 Simple 8 mask 06/24 1800 35.7 77 15 142/55 84 100 Simple 8 mask 06/24 1501 66 45 110/54 78 100 04/14 1430 66 18 98/52 73 100 /14 1400 67 13 91/45 65 100 /14 1330 72 15 94/51 69 99 14 1300 69 16 88/49 64 99 /14 1230 70 11 85/48 61 99 /14 1200 36.4 67 12 87/52 66 98 2 06/24 1130 63 14 82/45 60 98 /14 1100 66 14 93/54 70 98 14 1030 61 21 75/40 55 99 14 1000 61 17 74/42 54 98 PATIENT WEIGHT: Weight (lb): 218 Weight (oz): 11.18 Weight (kg): 99.200 Medications: Active Meds + DC'd Last 24 Hrs Calcium Chloride (CALCIUM CHLORIDE) 2 GM ONCE ON E IV Sodium Chloride (SODIUM CHLORIDE 0.9%) 100 ML Insulin Human Regular (HUMAN INSULIN REG) 5 UNIT S ONCE ONE IV (DC) Sodium Chloride (SODIUM CHLORIDE 0.9%) 500 ML NIRAV SRUTHI ONCE ONE IV (DC) Dextrose/Water (DEXTROSE 50% W SYRINGE) 50 ML ON CE ONE IV (DC) Insulin Human Regular (HUMAN INSULIN REG) 10 UNI TS ONCE ONE IV (DC) Sodium Chloride (SODIUM CHLORIDE 0.9%) 500 ML INRAV SRUTHI ONCE ONE IV (DC) Calcium Gluconate/Sodium Chloride (CALCIUM GLUC 1GM/NS 50ML) 50 ML ONCE ONE IV (DC) Magnesium Sulfate/Dextrose (MAGNESIUM SULFATE 1G M/D5W 100ML) 100 ML ONCE ONE IV (DC) Dexamethasone Sodium Phosphate (DECADRON) 0 .STK -MED ONE .ROUTE (DC) Lidocaine HCl (XYLOCAINE) 0 .STK-MED ONE .ROUTE (DC) Ondansetron HCl (ZOFRAN) 0 .STK-MED ONE .ROUTE ( DC) Sevoflurane (ULTANE) 0 .STK-MED ONE INH (DC) Epinephrine (EPINEPHrine) 0 .STK-MED ONE IV (DC) Sodium Bicarbonate (SODIUM BICARBONATE) 0 .STK-M ED ONE IV (DC) Thrombin (RECOTHROM) 0 .STK-MED ONE TOPICAL (DC) Sodium Chloride (SODIUM CHLORIDE 0.9%) 500 ML .S TK-MED ONE IV (DC) Etomidate (AMIDATE) 0 .STK-MED ONE IV (DC) Heparin Sodium/Sodium Chloride (HEPARIN 2,000 UN ITS/NS 1,000mL) 1,000 ML .STK-MED ONE IV (DC) Insulin Human Lispro (HUMALOG) 0 AC HS SUBQ Methylprednisolone Sodium Succinate (Solu-Medrol 125 MG Vial) 0 .STK-MED ONE IV (DC) Norepinephrine Bitartrate (NOREPINEPHRINE 8 MG/N S 250 ML) 250 ML .STK-MED ONE IV (DC) Phenylephrine HCl (MARYJANE-SYNEPHRINE 1000MCG/NS 10M L INJ) 0 .STK-MED ONE I- CHAVEZ (DC) Fentanyl Citrate (SUBLIMAZE) 0 .STK-MED ONE .ROU TE (DC) Heparin Sodium/Sodium Chloride (HEPARIN 1,000 UN ITS/NS 500ML) 500 ML .STK- MED ONE IV (DC) Lidocaine HCl (XYLOCAINE 1%) 0 .STK-MED ONE .ROU TE (DC) Midazolam HCl (VERSED) 0 .STK-MED ONE .ROUTE (DC ) Dextrose/Water (DEXTROSE 50% W SYRINGE) 25 ML DIR PRN IV (CKD) Dextrose/Water (DEXTROSE 50% W SYRINGE) 50 ML DIR PRN IV (CKD) Glucagon (GLUCAGON) 1 MG ASDIR PRN IM Aspirin (ASPIRIN) 81 MG DAILY PO Clopidogrel Bisulfate (Plavix) 75 MG DAILY PO Duloxetine HCl (CYMBALTA) 20 MG DAILY PO Isosorbide Dinitrate (ISORDIL) 60 MG DAILY PO (r ) Losartan Potassium (COZAAR) 50 MG DAILY PO Sodium Chloride (SODIUM CHLORIDE 0.9%) 500 ML DA ELADIO MISC Magnesium Sulfate (MAGNESIUM SULFATE 2GM/SWFI 50 ML) 50 ML ONCE ONE IV ( DC) Atorvastatin Calcium (LIPITOR) 40 MG BEDTIME PO Gabapentin (NEURONTIN) 600 MG BID PO Insulin Glargine (Lantus/Semglee) 25 UNIT BEDTIM E SUBQ Metoprolol Succinate (TOPROL XL) 12.5 MG BID PO Mupirocin (BACTROBAN 2% 22 GM OINTMENT) 1 APPLIC BID NASAL Insulin Human Lispro (HUMALOG) 0 AC HS SUBQ (DC) Dextrose/Water (DEXTROSE 50% W SYRINGE) 25 ML DIR PRN IV (DC) Dextrose/Water (DEXTROSE 50% W SYRINGE) 50 ML DIR PRN IV (DC) Glucagon (GLUCAGON) 1 MG ASDIR PRN IM Heparin Sodium (HEPARIN 5000 UNITS/ML) 0 ASDIR P RN IV Heparin Sodium (Porcine) (HEPARIN 25,000 UNITS/ 1/2NS 500ML) 500 ML ASDIR IV (CKD) Hydrocodone Bitart/Acetaminophen (NORCO 10/325) 1 TAB Q6H PRN PRN PO Morphine Sulfate (morphine SULFATE) 4 MG Q2H PRN PRN IV Ondansetron HCl (ZOFRAN) 4 MG Q8H PRN PRN IV Sodium Chloride (SODIUM CHLORIDE 0.9%) 1,000 ML .Q24H IV Atropine Sulfate (ATROPINE SULFATE 0.1MG/ML SYR) 0.5 MG ASDIR PRN IV (DC ) Heparin Sodium (HEPARIN 5000 UNITS/ML) 12,500 UN IT DAILY PRN PRN I- CATHETER Dextrose/Water (DEXTROSE 5% WATER) 500 ML Heparin Sodium/Dextrose (HEPARIN 25,000 UNITS/D5 W 500ML) 500 ML DAILY PRN PRN I-CATHETER Sodium Chloride (SODIUM CHLORIDE 0.9%) 500 ML DIR PRN IV (DC) Physical Exam General appearance: alert, awake, oriented, no a cute distress Neck: non-tender, no JVD Cardiovascular: CV assessment: regular rate and rhythm Respiratory: decreased breath sounds, on oxygen, no distress Abdomen: non-tender Genitourinary: hilliard, urine Lower extremity: LE assessment: edema (face and hands), no edema Musculoskeletal: normal inspection 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, oriented X 3, normal speech Skin: dry, intact, normal color, normal temperat ure Wound/incision: Location: Rgroin bruise, tender Psychiatry: normal affect, normal judgment/insig ht, normal mood, no hallucinations Results Findings/Data: Laboratory Tests 06/24 1651 Blood Gas Puncture Site Central Line O2 Saturation (90 - 100 %) 99.8 ABG pH (7.35 - 7.45) 7.268 *L ABG pCO2 (35.0 - 45 mmHg) 46.0 H ABG pO2 (80 - 100.0 mmHg) 247.9 *H ABG HCO3 (22.0 - 26.0 MMOL/L) 21.0 L ABG Total CO2 22.4 ABG Base Excess (-4.0 - 4.0 MMOL/L) -5.9 L ABG Hematocrit (33.0 - 45.0 %) 21 L ABG Hemoglobin (11.0 - 15.0 G/DL) 7.0 L Sodium (134 - 147 MEQ/L) 139 Potassium (3.4 - 5.0 MEQ/L) 3.5 Chloride (100 - 108 MEQ/L) 100 Ionized Calcium (1.12 - 1.32 MMOL/L) 1.09 L Lactic Acid (0.9 - 1.7 mmol/l) 6.5 *H Laboratory Tests 06/25 06/25 06/25 06/25 0729 0340 0340 0339 Chemistry Sodium (134 - 147 mEq/L) 140 Potassium (3.4 - 5.0 mEq/L) 4.9 Chloride (100 - 108 mEq/L) 115 H Carbon Dioxide (21 - 33 mEq/l) 21 Anion Gap (0 - 20) 9 BUN (7 - 18 mg/dL) 16 Creatinine (0.6 - 1.3 mg/dL) 1.2 Glomerular Filtr Rate (90 - 95) 46.0 L Glucose (70 - 110 mg/dL) 339 H POC Glucose (70 - 110 MG/DL) 288 H Lactic Acid (0.4 - 1.9 mmol/L) 2.0 H Calcium (8.0 - 10.5 mg/dL) 7.1 L Ionized Calcium [place] (1.12 - 1.32 MMOL/L) 1.01 L Magnesium (1.80 - 2.40 mg/dL) 2.48 H 06/25 06/25 06/24 06/24 0018 0018 2024 2024 Chemistry Sodium (134 - 147 mEq/L) 139 140 Potassium (3.4 - 5.0 mEq/L) 4.4 5.5 H Chloride (100 - 108 mEq/L) 114 H 115 H Carbon Dioxide (21 - 33 mEq/l) 19 L 20 L Anion Gap (0 - 20) 11 11 BUN (7 - 18 mg/dL) 13 14 Creatinine (0.6 - 1.3 mg/dL) 1.2 1.2 Glomerular Filtr Rate (90 - 95) 46.0 L 46.0 L Glucose (70 - 110 mg/dL) 425 H 312 H Lactic Acid (0.4 - 1.9 mmol/l) 3.0 H 2.2 H Calcium (8.0 - 10.5 mg/dL) 6.7 L 6.5 L Ionized Calcium [place]ill[place] (1.12 - 1.32 MMOL/L) 0.89 L Phosphorus (2.5 - 4.9 MG/DL) 3.5 Magnesium (1.80 - 2.40 mg/dL) 1.99 Total Bilirubin (0.0 - 1.0 mg/dL) 0.30 AST (15 - 37 IUnit/L) 78 H ALT (30 - 65 IUnit/L) 18 L Total Alk Phosphatase (20 - 125 IUnit/L) 55 Total Protein (6.4 - 8.2 g/dL) 5.0 L Albumin (3.4 - 5.0 g/dL) 2.80 L 06/24 1651 1121 Chemistry POC Creatinine (0.6 - 1.0 mg/dL) 1.2 H POC Glucose (70 - 110 MG/DL) 301 H 165 H POC Glucose (mg/dL) (MG/DL) 295 Laboratory Tests 06/24 06/24 06/24 164 1240 1030 Coagulation PTT ([place]) (25.0 - 39.5 Seconds) 96.3 H 93.7 H Activated Coag Time (74 - 137 SEC) 136 Laboratory Tests 06/255 2025 1240 Hematology WBC (4.5 - 11.0 x10 3/uL) 12.4 H 24.2 H 14.0 H RBC (3.54 - 5.02 x10 6/uL) 2.66 L 3.15 L 3.35 L Hgb (11.0 - 15.0 g/dL) 7.8 L 9.2 L 9.6 L Hct (33.0 - 45.0 %) 24.8 L 29.5 L 30.9 L MCV (81.0 - 99.0 fL) 93.2 93.7 92.2 MCH (27.0 - 33.0 pg) 29.3 29.2 28.7 MCHC (33.0 - 37.0 g/dL) 31.5 L 31.2 L 31.1 L RDW (11.5 - 14.5 %) 15.9 H 16.0 H 16.0 H Plt Count (150 - 400 x10 3/uL) 133 L 239 194 MPV (7.0 - 9.0 fL) 9.7 H 9.6 H 9.5 H Neut % (Auto) (56.0 - 77.0 %) 90.8 H 93.6 H Lymph % (Auto) (14.0 - 32.0 %) 2.4 L 1.4 L [place] % (Auto) (4.8 - 9.0 %) 6.5 4.3 L Eos % (Auto) (0.3 - 3.7 %) 0.0 L 0.0 L Baso % (Auto) (0.0 - 2.0 %) 0.0 0.1 Neut # (Auto) (2.0 - 7.6 x10 3/uL) 11.23 H 22.6 6 H Lymph # (Auto) (1.0 - 3.8 x10 3/uL) 0.30 L 0.33 L [place] # (Auto) (0.1 - 0.8 x10 3/uL) 0.80 1.05 H Eos # (Auto) (0.0 - 0.2 x10 3/uL) 0.00 0.00 Baso # (Auto) (0.0 - 0.2 x10 3/uL) 0.00 0.03 Abs Immat Gran (auto) (0.00 - 0.03 x10 3/uL) 0. 04 H 0.15 H Add Manual Diff NO NO Immature Gran % (0.0 - 2.0 %) 0.3 0.6 Nucleated RBC % (0 - 0 %) 0.0 0.0 Nucleated RBCs # (Man) (0.0 - 0.1 x10 3/uL) 0.0 0 0.00 /14 1030 Hematology WBC (4.5 - 11.0 x10 3/uL) 12.5 H RBC (3.54 - 5.02 x10 6/uL) 3.30 L Hgb (11.0 - 15.0 g/dL) 9.3 L Hct (33.0 - 45.0 %) 29.5 L MCV (81.0 - 99.0 fL) 89.4 MCH (27.0 - 33.0 pg) 28.2 MCHC (33.0 - 37.0 g/dL) 31.5 L RDW (11.5 - 14.5 %) 15.9 H Plt Count (150 - 400 x10 3/uL) 213 MPV (7.0 - 9.0 fL) 9.3 H Neut % (Auto) (56.0 - 77.0 %) 81.6 H Lymph % (Auto) (14.0 - 32.0 %) 10.2 L [place] % (Auto) (4.8 - 9.0 %) 7.6 Eos % (Auto) (0.3 - 3.7 %) 0.0 L Baso % (Auto) (0.0 - 2.0 %) 0.1 Neut # (Auto) (2.0 - 7.6 x10 3/uL) 10.24 H Lymph # (Auto) (1.0 - 3.8 x10 3/uL) 1.28 [place] # (Auto) (0.1 - 0.8 x10 3/uL) 0.95 H Eos # (Auto) (0.0 - 0.2 x10 3/uL) 0.00 Baso # (Auto) (0.0 - 0.2 x10 3/uL) 0.01 Abs Immat Gran (auto) (0.00 - 0.03 x10 3/uL) 0. 06 H Add Manual Diff NO Immature Gran % (0.0 - 2.0 %) 0.5 Nucleated RBC % (0 - 0 %) 0.0 Nucleated RBCs # (Man) (0.0 - 0.1 x10 3/uL) 0. 00 Laboratory Tests 06/25 Chemistry Magnesium (1.80 - 2.40 mg/dL) 2.48 H 1.99 Telemetry Interpretation: sinus rhythm Diagnosis, Assessment Plan Plan discussed with: patient, nurse Free Text DxA P Notes Free Text DxA P Notes: 61 YO female with MHx of CAD with prior PCI/MIKHAIL to LAD (05/2021), HTN, DM, CVA, HLD who has been having angina. She was admitted electively on 06/23/21 for staged PCI to right PDA and RCA. The patient had successul PCI of the ostial PDA with MIKHAIL. However, the patient developed dissection of the proximal to mid RCA post balloon angioplasty. Im pella LVAD was inserted for stability. This morning the patient was doing well, awake and alert, no chest pain, and no SOB. Had episode of hypotension which responded to 500 ml IVF challenge. 1. Coronary artery Disease 05/12/2021: 3 stents to LAD 06/23/21: PCI/MIKHAIL of ostial PDA RCA dissection s/p Impella LVAD support - dc'd on 06/24 continue DAPT, BB, statin 2. Hypertension - was hypotensive yesterday off levophed last night BP still soft continue to hold all BP meds including nitrates 3. Diabetes mellitus continue lantus and insulin sliding scale 4. Hyperlipidemia continue statin 5. RCFA bleeding during Impella removal s/p repa ir R groin bruise s/p 1 unit PRBC 06/24 hgb 7.8 - will diurese and recheck Hgb this PM get PT/OT, mobilize OOB 6. Fluid overload Positive fluid balance almost 6 liters give IV Lasix 40 mg x1 hgb 7.8, recheck HH at 4PM today Okay to tranfer out of CCU to CV1. at 1215 RPT #:[id number] END OF REPORT 2021-06-25 09:48:00-00:00 [facility] Card[facility] Progress Note REPORT#:[id number] REPORT STATUS: Signed DATE:06/25/21 TIME: 0948 PATIENT: TAMY MARTINEZ UNIT #: [id number] ROOM/BED: [facility] [place] : 62 AGE: 61 SEX: F ATTEND: Conrado Zeng MD ADM AUTHOR: Zoraida Felder CNP * ALL edits or amendments must be made on the [employer] document * Subjective Chief complaint: Awake and alert, on 2LNC states she feels congested and puffy Objective General VS/I O: 24 hour I O ending at 0700: 06/25 0700 06/24 1900 Intake Total 2747.00 4179.00 Output Total 450 600 Balance 2297.00 3579.00 Intake, IV 2597.00 4079.00 Intake, Oral 150 100 Intake, Oral 0 Supplement Number 0 0 Bowel Movements Output, Urine 450 600 Patient 99.2 kg Weight Weight Bed scale Measurement Method Vital Signs: Date Time Temp Pulse Resp B/P B/P Pulse O2 O2 F low FiO2 Mean Ox Delivery Rate 06/25 0800 75 13 91/45 65 99 04/15 0730 80 25 95/44 63 98 04/15 0700 73 13 101/49 71 100 04/15 0600 80 18 101/46 67 99 04/15 0546 84 28 108/51 74 100 /15 0530 86 11 105/54 75 99 04/15 0500 79 12 110/55 77 99 /15 0430 78 13 107/55 78 99 04/15 0415 36.6 04/15 0400 78 12 113/55 78 99 04/15 0330 77 13 118/51 81 100 /15 0314 79 13 119/57 82 100 /15 0230 84 12 108/54 76 98 04/15 0200 77 12 98/46 67 98 04/15 0130 77 15 103/47 63 98 04/15 0100 80 16 94/46 64 88 04/15 0030 80 13 92/54 72 89 04/15 0022 82 15 89/53 69 88 /15 0021 82 14 100/51 70 92 04/15 0000 83 13 109/54 76 91 /14 2345 82 14 94/53 71 92 04/14 2330 89 14 98/51 73 86 06/24 2315 79 19 96/52 64 94 06/24 2300 77 12 115/58 83 94 06/24 2245 75 13 114/58 83 94 06/24 2230 36.1 06/24 2230 Nasal 2 cannula 06/24 2230 75 13 114/51 72 96 06/24 2215 78 15 111/53 77 94 06/24 2200 79 14 105/52 75 100 / 2145 79 13 112/53 73 95 06/24 2130 79 14 105/52 72 99 /14 2115 77 13 99/51 71 100 06/24 2100 74 15 83/46 59 100 14 2046 80 20 95/44 64 99 06/24 2030 76 14 119/47 68 100 06/24 2014 79 13 100/49 70 100 /14 2001 80 12 120/55 79 100 14 1945 79 13 117/49 71 100 06/24 1930 75 13 126/51 74 100 06/24 1916 79 13 106/53 69 100 06/24 1907 79 13 89/50 60 100 06/24 1901 80 15 83/41 53 100 06/24 1830 77 15 102/47 65 100 Simple 8 mask 06/24 1815 76 15 99/45 63 100 Simple 8 mask 06/24 1800 35.7 77 15 142/55 84 100 Simple 8 mask 06/24 1501 66 45 110/54 78 100 06/24 1430 66 18 98/52 73 100 06/24 1400 67 13 91/45 65 100 06/24 1330 72 15 94/51 69 99 06/24 1300 69 16 88/49 64 99 06/24 1230 70 11 85/48 61 99 06/24 1200 36.4 67 12 87/52 66 98 2 06/24 1130 63 14 82/45 60 98 06/24 1100 66 14 93/54 70 98 14 1030 61 21 75/40 55 99 /14 1000 61 17 74/42 54 98 PATIENT WEIGHT: Weight (lb): 218 Weight (oz): 11.18 Weight (kg): 99.200 Medications: Active Meds + DC'd Last 24 Hrs Calcium Chloride (CALCIUM CHLORIDE) 2 GM ONCE ON E IV Sodium Chloride (SODIUM CHLORIDE 0.9%) 100 ML Insulin Human Regular (HUMAN INSULIN REG) 5 UNIT S ONCE ONE IV (DC) Sodium Chloride (SODIUM CHLORIDE 0.9%) 500 ML NIRAV SRUTHI ONCE ONE IV (DC) Dextrose/Water (DEXTROSE 50% W SYRINGE) 50 ML ON CE ONE IV (DC) Insulin Human Regular (HUMAN INSULIN REG) 10 UNI TS ONCE ONE IV (DC) Sodium Chloride (SODIUM CHLORIDE 0.9%) 500 ML NIRAV SRUTHI ONCE ONE IV (DC) Calcium Gluconate/Sodium Chloride (CALCIUM GLUC 1GM/NS 50ML) 50 ML ONCE ONE IV (DC) Magnesium Sulfate/Dextrose (MAGNESIUM SULFATE 1G M/D5W 100ML) 100 ML ONCE ONE IV (DC) Dexamethasone Sodium Phosphate (DECADRON) 0 .STK -MED ONE .ROUTE (DC) Lidocaine HCl (XYLOCAINE) 0 .STK-MED ONE .ROUTE (DC) Ondansetron HCl (ZOFRAN) 0 .STK-MED ONE .ROUTE ( DC) Sevoflurane (ULTANE) 0 .STK-MED ONE INH (DC) Epinephrine (EPINEPHrine) 0 .STK-MED ONE IV (DC) Sodium Bicarbonate (SODIUM BICARBONATE) 0 .STK-M ED ONE IV (DC) Thrombin (RECOTHROM) 0 .STK-MED ONE TOPICAL (DC) Sodium Chloride (SODIUM CHLORIDE 0.9%) 500 ML .S TK-MED ONE IV (DC) Etomidate (AMIDATE) 0 .STK-MED ONE IV (DC) Heparin Sodium/Sodium Chloride (HEPARIN 2,000 UN ITS/NS 1,000mL) 1,000 ML .STK-MED ONE IV (DC) Insulin Human Lispro (HUMALOG) 0 AC HS SUBQ Methylprednisolone Sodium Succinate (Solu-Medrol 125 MG Vial) 0 .STK-MED ONE IV (DC) Norepinephrine Bitartrate (NOREPINEPHRINE 8 MG/N S 250 ML) 250 ML .STK-MED ONE IV (DC) Phenylephrine HCl (MARYJANE-SYNEPHRINE 1000MCG/NS 10M L INJ) 0 .STK-MED ONE I- CHAVEZ (DC) Fentanyl Citrate (SUBLIMAZE) 0 .STK-MED ONE .ROU TE (DC) Heparin Sodium/Sodium Chloride (HEPARIN 1,000 UN ITS/NS 500ML) 500 ML .STK- MED ONE IV (DC) Lidocaine HCl (XYLOCAINE 1%) 0 .STK-MED ONE .ROU TE (DC) Midazolam HCl (VERSED) 0 .STK-MED ONE .ROUTE (DC ) Dextrose/Water (DEXTROSE 50% W SYRINGE) 25 ML DIR PRN IV (CKD) Dextrose/Water (DEXTROSE 50% W SYRINGE) 50 ML DIR PRN IV (CKD) Glucagon (GLUCAGON) 1 MG ASDIR PRN IM Aspirin (ASPIRIN) 81 MG DAILY PO Clopidogrel Bisulfate (Plavix) 75 MG DAILY PO Duloxetine HCl (CYMBALTA) 20 MG DAILY PO Isosorbide Dinitrate (ISORDIL) 60 MG DAILY PO (r ) Losartan Potassium (COZAAR) 50 MG DAILY PO Sodium Chloride (SODIUM CHLORIDE 0.9%) 500 ML DA ELADIO MISC Magnesium Sulfate (MAGNESIUM SULFATE 2GM/SWFI 50 ML) 50 ML ONCE ONE IV ( DC) Atorvastatin Calcium (LIPITOR) 40 MG BEDTIME PO Gabapentin (NEURONTIN) 600 MG BID PO Insulin Glargine (Lantus/Semglee) 25 UNIT BEDTIM E SUBQ Metoprolol Succinate (TOPROL XL) 12.5 MG BID PO Mupirocin (BACTROBAN 2% 22 GM OINTMENT) 1 APPLIC BID NASAL Insulin Human Lispro (HUMALOG) 0 AC HS SUBQ (DC) Dextrose/Water (DEXTROSE 50% W SYRINGE) 25 ML DIR PRN IV (DC) Dextrose/Water (DEXTROSE 50% W SYRINGE) 50 ML DIR PRN IV (DC) Glucagon (GLUCAGON) 1 MG ASDIR PRN IM Heparin Sodium (HEPARIN 5000 UNITS/ML) 0 ASDIR P RN IV Heparin Sodium (Porcine) (HEPARIN 25,000 UNITS/ 1/2NS 500ML) 500 ML ASDIR IV (CKD) Hydrocodone Bitart/Acetaminophen (NORCO 10/325) 1 TAB Q6H PRN PRN PO Morphine Sulfate (morphine SULFATE) 4 MG Q2H PRN PRN IV Ondansetron HCl (ZOFRAN) 4 MG Q8H PRN PRN IV Sodium Chloride (SODIUM CHLORIDE 0.9%) 1,000 ML .Q24H IV Atropine Sulfate (ATROPINE SULFATE 0.1MG/ML SYR) 0.5 MG ASDIR PRN IV (DC ) Heparin Sodium (HEPARIN 5000 UNITS/ML) 12,500 UN IT DAILY PRN PRN I- CATHETER Dextrose/Water (DEXTROSE 5% WATER) 500 ML Heparin Sodium/Dextrose (HEPARIN 25,000 UNITS/D5 W 500ML) 500 ML DAILY PRN PRN I-CATHETER Sodium Chloride (SODIUM CHLORIDE 0.9%) 500 ML DIR PRN IV (DC) Physical Exam General appearance: alert, awake, oriented, no a cute distress Neck: non-tender, no JVD Cardiovascular: CV assessment: regular rate and rhythm Respiratory: decreased breath sounds, on oxygen, no distress Abdomen: non-tender Genitourinary: hilliard, urine Lower extremity: LE assessment: edema (face and hands), no edema Musculoskeletal: normal inspection 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, oriented X 3, normal speech Skin: dry, intact, normal color, normal temperat ure Wound/incision: Location: Rgroin bruise, tender Psychiatry: normal affect, normal judgment/insig ht, normal mood, no hallucinations Results Findings/Data: Laboratory Tests 06/24 1651 Blood Gas Puncture Site Central Line O2 Saturation (90 - 100 %) 99.8 ABG pH (7.35 - 7.45) 7.268 *L ABG pCO2 (35.0 - 45 mmHg) 46.0 H ABG pO2 (80 - 100.0 mmHg) 247.9 *H ABG HCO3 (22.0 - 26.0 MMOL/L) 21.0 L ABG Total CO2 22.4 ABG Base Excess (-4.0 - 4.0 MMOL/L) -5.9 L ABG Hematocrit (33.0 - 45.0 %) 21 L ABG Hemoglobin (11.0 - 15.0 G/DL) 7.0 L Sodium (134 - 147 MEQ/L) 139 Potassium (3.4 - 5.0 MEQ/L) 3.5 Chloride (100 - 108 MEQ/L) 100 Ionized Calcium (1.12 - 1.32 MMOL/L) 1.09 L Lactic Acid (0.9 - 1.7 mmol/l) 6.5 *H Laboratory Tests 06/25 06/25 06/25 06/25 0729 0340 0340 0339 Chemistry Sodium (134 - 147 mEq/L) 140 Potassium (3.4 - 5.0 mEq/L) 4.9 Chloride (100 - 108 mEq/L) 115 H Carbon Dioxide (21 - 33 mEq/l) 21 Anion Gap (0 - 20) 9 BUN (7 - 18 mg/dL) 16 Creatinine (0.6 - 1.3 mg/dL) 1.2 Glomerular Filtr Rate (90 - 95) 46.0 L Glucose (70 - 110 mg/dL) 339 H POC Glucose (70 - 110 MG/DL) 288 H Lactic Acid (0.4 - 1.9 mmol/L) 2.0 H Calcium (8.0 - 10.5 mg/dL) 7.1 L Ionized Calcium [place]ill[place] (1.12 - 1.32 MMOL/L) 1.01 L Magnesium (1.80 - 2.40 mg/dL) 2.48 H 06/25 06/25 06/24 06/24 0018 0018 2024 2024 Chemistry Sodium (134 - 147 mEq/L) 139 140 Potassium (3.4 - 5.0 mEq/L) 4.4 5.5 H Chloride (100 - 108 mEq/L) 114 H 115 H Carbon Dioxide (21 - 33 mEq/l) 19 L 20 L Anion Gap (0 - 20) 11 11 BUN (7 - 18 mg/dL) 13 14 Creatinine (0.6 - 1.3 mg/dL) 1.2 1.2 Glomerular Filtr Rate (90 - 95) 46.0 L 46.0 L Glucose (70 - 110 mg/dL) 425 H 312 H Lactic Acid (0.4 - 1.9 mmol/l) 3.0 H 2.2 H Calcium (8.0 - 10.5 mg/dL) 6.7 L 6.5 L Ionized Calcium Dillan (1.12 - 1.32 MMOL/L) 0.89 L Phosphorus (2.5 - 4.9 MG/DL) 3.5 Magnesium (1.80 - 2.40 mg/dL) 1.99 Total Bilirubin (0.0 - 1.0 mg/dL) 0.30 AST (15 - 37 IUnit/L) 78 H ALT (30 - 65 IUnit/L) 18 L Total Alk Phosphatase (20 - 125 IUnit/L) 55 Total Protein (6.4 - 8.2 g/dL) 5.0 L Albumin (3.4 - 5.0 g/dL) 2.80 L 06/24 1651 1121 Chemistry POC Creatinine (0.6 - 1.0 mg/dL) 1.2 H POC Glucose (70 - 110 MG/DL) 301 H 165 H POC Glucose (mg/dL) (MG/DL) 295 Laboratory Tests 04/14 04/14 04/14 1645 1240 1030 Coagulation PTT (Samuel) (25.0 - 39.5 Seconds) 96.3 H 93.7 H Activated Coag Time (74 - 137 SEC) 136 Laboratory Tests 06/25 06/24 06/24 0415 2025 1240 Hematology WBC (4.5 - 11.0 x10 3/uL) 12.4 H 24.2 H 14.0 H RBC (3.54 - 5.02 x10 6/uL) 2.66 L 3.15 L 3.35 L Hgb (11.0 - 15.0 g/dL) 7.8 L 9.2 L 9.6 L Hct (33.0 - 45.0 %) 24.8 L 29.5 L 30.9 L MCV (81.0 - 99.0 fL) 93.2 93.7 92.2 MCH (27.0 - 33.0 pg) 29.3 29.2 28.7 MCHC (33.0 - 37.0 g/dL) 31.5 L 31.2 L 31.1 L RDW (11.5 - 14.5 %) 15.9 H 16.0 H 16.0 H Plt Count (150 - 400 x10 3/uL) 133 L 239 194 MPV (7.0 - 9.0 fL) 9.7 H 9.6 H 9.5 H Neut % (Auto) (56.0 - 77.0 %) 90.8 H 93.6 H Lymph % (Auto) (14.0 - 32.0 %) 2.4 L 1.4 L [place] % (Auto) (4.8 - 9.0 %) 6.5 4.3 L Eos % (Auto) (0.3 - 3.7 %) 0.0 L 0.0 L Baso % (Auto) (0.0 - 2.0 %) 0.0 0.1 Neut # (Auto) (2.0 - 7.6 x10 3/uL) 11.23 H 22.6 6 H Lymph # (Auto) (1.0 - 3.8 x10 3/uL) 0.30 L 0.33 L [place] # (Auto) (0.1 - 0.8 x10 3/uL) 0.80 1.05 H Eos # (Auto) (0.0 - 0.2 x10 3/uL) 0.00 0.00 Baso # (Auto) (0.0 - 0.2 x10 3/uL) 0.00 0.03 Abs Immat Gran (auto) (0.00 - 0.03 x10 3/uL) 0. 04 H 0.15 H Add Manual Diff NO NO Immature Gran % (0.0 - 2.0 %) 0.3 0.6 Nucleated RBC % (0 - 0 %) 0.0 0.0 Nucleated RBCs # (Man) (0.0 - 0.1 x10 3/uL) 0.0 0 0.00 06/24 1030 Hematology WBC (4.5 - 11.0 x10 3/uL) 12.5 H RBC (3.54 - 5.02 x10 6/uL) 3.30 L Hgb (11.0 - 15.0 g/dL) 9.3 L Hct (33.0 - 45.0 %) 29.5 L MCV (81.0 - 99.0 fL) 89.4 MCH (27.0 - 33.0 pg) 28.2 MCHC (33.0 - 37.0 g/dL) 31.5 L RDW (11.5 - 14.5 %) 15.9 H Plt Count (150 - 400 x10 3/uL) 213 MPV (7.0 - 9.0 fL) 9.3 H Neut % (Auto) (56.0 - 77.0 %) 81.6 H Lymph % (Auto) (14.0 - 32.0 %) 10.2 L [place] % (Auto) (4.8 - 9.0 %) 7.6 Eos % (Auto) (0.3 - 3.7 %) 0.0 L Baso % (Auto) (0.0 - 2.0 %) 0.1 Neut # (Auto) (2.0 - 7.6 x10 3/uL) 10.24 H Lymph # (Auto) (1.0 - 3.8 x10 3/uL) 1.28 [place] # (Auto) (0.1 - 0.8 x10 3/uL) 0.95 H Eos # (Auto) (0.0 - 0.2 x10 3/uL) 0.00 Baso # (Auto) (0.0 - 0.2 x10 3/uL) 0.01 Abs Immat Gran (auto) (0.00 - 0.03 x10 3/uL) 0. 06 H Add Manual Diff NO Immature Gran % (0.0 - 2.0 %) 0.5 Nucleated RBC % (0 - 0 %) 0.0 Nucleated RBCs # (Man) (0.0 - 0.1 x10 3/uL) 0.0 0 Laboratory Tests 06/25 Chemistry Magnesium (1.80 - 2.40 mg/dL) 2.48 H 1.99 Telemetry Interpretation: sinus rhythm Diagnosis, Assessment Plan Plan discussed with: patient, nurse Free Text DxA P Notes Free Text DxA P Notes: 61 YO female with MHx of CAD with prior PCI/MIKHAIL to LAD (05/2021), HTN, DM, CVA, HLD who has been having angina. She was admitted electively on 06/23/21 for staged PCI to right PDA and RCA. The patient had successul PCI of the ostial PDA with MIKHAIL. However, the patient developed dissection of the proximal to mid RCA post balloon angioplasty. Im pella LVAD was inserted for stability. This morning the patient was doing well, awake and alert, no chest pain, and no SOB. Had episode of hypotension which responded to 500 ml IVF challenge. 1. Coronary artery Disease 05/12/2021: 3 stents to LAD 06/23/21: PCI/MIKHAIL of ostial PDA RCA dissection s/p Impella LVAD support - dc'd on 06/24 continue DAPT, BB, statin 2. Hypertension - was hypotensive yesterday off levophed last night BP still soft continue to hold all BP meds including nitrates 3. Diabetes mellitus continue lantus and insulin sliding scale 4. Hyperlipidemia continue statin 5. RCFA bleeding during Impella removal s/p repa ir R groin bruise s/p 1 unit PRBC 06/24 hgb 7.8 - will diurese and recheck Hgb this PM get PT/OT, mobilize OOB 6. Fluid overload Positive fluid balance almost 6 liters give IV Lasix 40 mg x1 hgb 7.8, recheck HH at 4PM today Okay to tranfer out of CCU to CV1. at 1215 Electronically Signed by Inga Robertson MD on at 0758 RPT #:[id number] END OF REPORT 2021-06-24 21:18:00-00:00 [id number] [place] [address] PATIENT NAME: TAMY MARTINEZ ADMIT DATE: ACCOUNT NO: [id number] ROOM NO: [facility] [place] AGE: 61 REPORT TYPE: 360 - QUERY RESPONSE DOCUMENT SEX: F ADMITTING PHYSICIAN:Alejandra Zeng MD ATTENDING PHYSICIAN:Alejandra Zeng MD Provider Query QUERY TEXT: Condition General 360MD Query related questions should be directed to: Cristo Carrillo RN # [phone] Based on your clinical judgement can you specify the known or suspected condition that represents the [facility] indicators listed? ( Ex - Overweight, Obesity, Morbid Obesity, Supe r Morbid Obesity, or other diagnosis ) The patient's Clinical Indicators include: * Weight - 97KG * BMI - 41.8 - EMR - 06/23/2021 Options provided: -- Respond - Create new note now -- Dismiss - Not applicable / Not valid -- Dismiss - Clinically unable to determine / Un known -- Assign to another provider QUERY RESPONSE: Morbid obesity Query created by: Kobe Carrillo on 06/24/2021 2:32 PM Electronically Signed by Agnes Almeida MD on at 2118 PATIENT NAME: TAMY MARTINEZ ACCOUNT #: [id number] 2021-06-24 18:46:00-00:00 [facility] ([facility]) Critical Care Consult Note REPORT#:[id number] REPORT STATUS: Signed DATE:06/24/21 TIME: 1845 PATIENT: TAMY MARTINEZ UNIT #: [id number] ROOM/BED: [facility] [place]-1 : 62 AGE: 61 SEX: F ATTEND: Conrado Zeng MD ADM AUTHOR: Eduardo Robledo MD * ALL edits or amendments must be made on the Woo[employer]/computer document * History of Present Illness HPI Requesting clinician: Dr Zeng Reason for consult: Hypotension Acute blood loss anemia Acute coronary syndrome status post PCI RCA dissection Cardiogenic shock Impella support Chief complaint: Hypotension Bleeding from the Impella insertion site HPI: Patient seen and examined in CCU room #3308 this evening. She underwent PCI with RCA dissection leading to cardiogenic shock . Patient was supported with Impella. Upon removal of Impella she developed r ight groin hematoma, acute blood loss anemia and severe hypotension . CODE BLUE was called but patient did not lose pulse. She had to undergo cutdown in or ramon to repair the femoral artery approach. Patient is stable now. She is a wake, interactive, following commands and moving all 4 extremities. Patient r eceived 2.0 L of crystalloids and 1 unit of packed red cell. Latest hemoglobin is 9.6 g/dL. Currently on Levophed at 5 mics/min. Blood pressure is 102/47 mmHg with a heart rate of 79 in sinus rhythm and respiratory rate of 13. Puls e ox is 100%. Repeat lab has been ordered for 8 PM along with BMP, H H, lacti c acid. Tamy Martinez is a 61 years old female wit h past medical history significant for CAD with prior PCI/MIKHAIL to LAD (), HTN, DM, CVA, HLD who has been having angina. She was admitted electively on 06/23/21 for staged PCI to right PDA and RCA. The patient had successul PCI of the ostial PDA with MIKHAIL. However, the patient developed dissection of the proximal to mid RCA post balloon angioplasty. Impella LVAD was in serted for stability. This morning the patient was doing well, awak e and alert, no chest pain, and no SOB. Had episode of hypotension which responded to 500 ml IVF barbara llenge. Patient underwent cutdown and repair of the femoral artery. Right groin is stable now. Patient is neuro intact. She is awake interactive follow ing commands and moving all 4 extremities. Patient is full code. History - Adult longitudinal Past medical history: Reports: Coronary artery disease, Diabetes melli tus, Hypertension, Ischemic stroke. Denies: Atrial fibrillation, Congestive heart failure. Past surgical history: Reports: Cholecystectomy. Additional family history: Non contributory Alcohol use: Denies EtOH use Drug use: Benzodiazepines Smoking status: Smoking status for patients 13 years old or old er: Never Smoker Medications: Home Medications: Medication Dose/Rte/Freq Days Qty Entered Last Max Daily Dose Reviewed GABAPENTIN (NEURONTIN) 600 MG PO BID 05/10/21 0 06/23/21 Strength: 600 MG TAB 1450 1136 FOLIC ACID 1 MG PO DAILY 05/10/21 06/23/21 Strength: 1 MG TAB 1450 1136 METOPROLOL SUCC XL 12.5 MG PO BID 05/10/2106/11 (TOPROL XL) 1450 1136 Strength: 25 MG TAB.SR.24H ISOSORBIDE DINITRATE 60 MG PO DAILY 05/10/21 (ISORDIL) 1452 1136 Strength: 40 MG TAB ASPIRIN 81 MG PO DAILY 05/10/21 06/23/21 Strength: 81 MG TAB.CHEW [address] (CYMBALTA) 20 MG PO DAILY 2 06/23/21 Strength: 20 MG CAP.DR 1452 1136 LOSARTAN (COZAAR) 50 MG PO DAILY 05/10/2106/23 Strength: 50 MG TAB 1454 1136 ATORVASTATIN (LIPITOR) 40 MG PO BEDTIME 2 06/23/21 Strength: 40 MG TAB 1455 1136 METHOTREXATE 2.5 MG PO Q7D 05/10/21 06/23/21 (RHEUMATREX) 1456 1136 Strength: 2.5 MG TAB INSULIN ASPART (NovoLOG) 05/10/21 06/23/21 Strength: 100 UNIT/ML 1456 1136 VIAL Insulin Degludec 26 UNITS SUBQ DAILY 05/10/21 0 06/23/21 (TRESIBA FLEXTOUCH 1457 1136 U-100 (3mL)) Strength: 100 UNIT/ML PEN.INJCTR HYDROcodone/APAP 1 TAB PO 05/12/21 06/23/21 (NORCO 10/325) Q6H PRN PRN PAIN 1316 1136 Strength: 10 MG-325 MG TAB [XELJANZ] (Unknown Dose) PO 06/21/21 06/23/21 Strength: (Unknown DAILY 1440 1136 Strength) NITROGLYCERIN 0.4 MG SL 30 100 05/13/21 (NITROSTAT) Q5M PRN PRN ANGINA 1740 1136 Strength: 0.4 MG TAB.SL CLOPIDOGREL (PLAVIX) 75 MG PO DAILY 30 30 05/1306/23/21 Strength: 75 MG TAB 1745 1136 Current Hospital Medications: Autonomic Drugs Sig/Nandini Start time Last Medication Dose Route Stop Time Status Admin Epinephrine 0 .STK-MED ONE 06/24 1713 DC 06/24 (EPINEPHrine) IV 1715 Norepinephrine 250 ML .STK-MED ONE 06/24 1626 D C 06/24 Bitartrate IV 1705 (NOREPINEPHRINE 8 MG/ NS 250 ML) Phenylephrine HCl 0 .STK-MED ONE 06/24 1607 DC 06/24 (MARYJANE-SYNEPHRINE I-CHAVEZ 1705 1000MCG/NS 10ML INJ) Atropine Sulfate 0.5 MG ASDIR PRN 06/23 1430 DC (ATROPINE SULFATE IV 06/24 1423 0.1MG/ML SYR) Blood Formation,Coagulation Sig/Nandini Start time Last Medication Dose Route Stop Time Status Admin Thrombin 0 .STK-MED ONE 06/24 1703 DC (RECOTHROM) TOPICAL Heparin Sodium/ 1,000 ML .STK-MED ONE 06/24 16 41 DC 06/24 Sodium Chloride IV 1705 (HEPARIN 2,000 UNITS/ NS 1,000mL) Heparin Sodium/ 500 ML .STK-MED ONE 06/24 1533 DC 06/24 Sodium Chloride IV 1539 (HEPARIN 1,000 UNITS/ NS 500ML) Clopidogrel Bisulfate 75 MG DAILY 06/24 0900 AC 06/24 (Plavix) PO 07/24 0859 1435 Heparin Sodium 0 ASDIR PRN 06/23 1730 AC (HEPARIN 5000 UNITS/ IV 07/23 1729 ML) Heparin Sodium 500 ML ASDIR 06/23 1730 CKD 06/11 4 (Porcine) IV 07/23 1729 0301 (HEPARIN 25,000 UNITS/ 1/2NS 500ML) Heparin Sodium 12,500 UNIT DAILY PRN PRN 06/23 1430 AC (HEPARIN 5000 UNITS/ I-CATHETER 07/23 1429 ML) Dextrose/Water 500 ML (DEXTROSE 5% WATER) Heparin Sodium/ 500 ML DAILY PRN PRN 06/23 1430 AC 06/23 Dextrose I-CATHETER 07/23 1429 2302 (HEPARIN 25,000 UNITS/D5W 500ML) Cardiovascular Drugs Sig/Nandini Start time Last Medication Dose Route Stop Time Status Admin Lidocaine HCl 0 .STK-MED ONE 06/24 1732 DC (XYLOCAINE) .ROUTE Lidocaine HCl 0 .STK-MED ONE 06/24 1533 DC 06/11 4 (XYLOCAINE 1%) .ROUTE 1539 Isosorbide Dinitrate 60 MG DAILY 06/24 0900 DA 06/24 (ISORDIL) PO 07/24 0859 0917 Losartan Potassium 50 MG DAILY 06/24 0900 AC (COZAAR) PO 07/24 0859 0916 Atorvastatin Calcium 40 MG BEDTIME 06/23 2100 A C 06/23 (LIPITOR) PO 07/23 Metoprolol Succinate 12.5 MG BID 06/23 2100 AC 06/24 (TOPROL XL) PO 07/23 Central Nervous System Agents Sig/Nandini Start time Last Medication Dose Route Stop Time Status Admin Sevoflurane 0 .STK-MED ONE 06/24 1732 DC (ULTANE) INH Etomidate 0 .STK-MED ONE 06/24 1648 DC (AMIDATE) IV Fentanyl Citrate 0 .STK-MED ONE 06/24 1533 DC 0 06/24 (SUBLIMAZE) .ROUTE 1539 Midazolam HCl 0 .STK-MED ONE 06/24 1532 DC 06/11 4 (VERSED) .ROUTE 1539 Aspirin 81 MG DAILY 06/24 0900 AC 06/24 (ASPIRIN) PO 07/24 0859 0916 Duloxetine HCl 20 MG DAILY 06/24 0900 AC 06/24 (CYMBALTA) PO 07/24 0859 0916 Magnesium Sulfate 50 ML ONCE ONE 06/24 0830 DC 06/24 (MAGNESIUM SULFATE IV 06/24 1029 0921 2GM/SWFI 50ML) Gabapentin 600 MG BID 06/23 2100 AC 06/24 (NEURONTIN) PO 07/23 2058 0916 Hydrocodone Bitart/ 1 TAB Q6H PRN PRN 06/23 173 0 AC Acetaminophen PO 06/28 1729 (NORCO 10/325) Morphine Sulfate 4 MG Q2H PRN PRN 06/23 1730 AC 06/24 (morphine SULFATE) IV 06/28 172 0634 Electrolytic, Caloric, And Maico Sig/Nandini Start time Last Medication Dose Route Stop Time Status Admin Sodium Bicarbonate 0 .STK-MED ONE 06/24 1713 DC 06/24 (SODIUM BICARBONATE) IV 1715 Sodium Chloride 500 ML .STK-MED ONE 06/24 1650 DC (SODIUM CHLORIDE IV 0.9%) Dextrose/Water 25 ML ASDIR PRN 06/24 1345 CKD (DEXTROSE 50% W IV 07/24 1344 SYRINGE) Dextrose/Water 50 ML ASDIR PRN 06/24 1345 CKD (DEXTROSE 50% W IV 07/24 1344 SYRINGE) Sodium Chloride 500 ML DAILY 06/24 0900 AC (SODIUM CHLORIDE MISC 07/24 0859 0.9%) Dextrose/Water 25 ML ASDIR PRN 06/23 1730 DC (DEXTROSE 50% W IV 07/23 1729 SYRINGE) Dextrose/Water 50 ML ASDIR PRN 06/23 1730 DC (DEXTROSE 50% W IV 07/23 172 SYRINGE) Sodium Chloride 1,000 ML .Q10H 06/23 1730 AC (SODIUM CHLORIDE IV 07/23 1729 1436 0.9%) Sodium Chloride 1,000 ML .[id number] 06/23 1430 DC 06/23 (SODIUM CHLORIDE IV 06/24 0349 1755 0.9%) Sodium Chloride 500 ML ASDIR PRN 06/23 1430 DC (SODIUM CHLORIDE IV 06/24 1423 0.9%) Eye, Ear, Nose And Throat (Een Sig/Nandini Start time Last Medication Dose Route Stop Time Status Admin Dexamethasone Sodium 0 .STK-MED ONE 06/24 1732 DC Phosphate .ROUTE (DECADRON) Gastrointestinal Drugs Sig/Nandini Start time Last Medication Dose Route Stop Time Status Admin Ondansetron HCl 0 .STK-MED ONE 06/24 1732 DC (ZOFRAN) .ROUTE Ondansetron HCl 4 MG Q8H PRN PRN 06/23 1730 AC (ZOFRAN) IV 07/23 1729 Hormones And Synthetic Substit Sig/Nandini Start time Last Medication Dose Route Stop Time Status Admin Insulin Human Lispro 0 AC HS 06/24 1630 AC (HUMALOG) SUBQ 07/24 1629 Methylprednisolone 0 .STK-MED ONE 06/24 1629 DC 06/24 Sodium Succinate IV 1705 (Solu-Medrol 125 MG Vial) Glucagon 1 MG ASDIR PRN 06/24 1345 AC (GLUCAGON) IM 07/24 1344 Insulin Glargine 25 UNIT BEDTIME 06/23 2100 AC 06/23 (Lantus/Semglee) SUBQ 07/23 Insulin Human Lispro 0 AC HS 06/23 1800 DC 06/11 4 (HUMALOG) SUBQ 07/23 1749 0916 Glucagon 1 MG ASDIR PRN 06/23 1730 AC (GLUCAGON) IM 07/23 1729 Skin And Mucous Membrane Agent Sig/Nandini Start time Last Medication Dose Route Stop Time Status Admin Mupirocin 1 APPLIC BID 06/23 2100 AC 06/24 (BACTROBAN 2% 22 GM NASAL 06/28 0901 0916 OINTMENT) Allergies: Coded Allergies: iodine (Intermediate, HIVES 05/10/21) Converted from Ingredient Allergy: IODINE Review of Systems ROS Constitutional: Denies: fatigue, fever, generalized weakness. Skin: Denies: diaphoresis, ecchymosis. Allergy/Immun: Denies: anaphylaxis, hives. Eyes: Denies: redness, discharge. ENT: Denies: nasal congestion, nose bleeding. Respiratory: Denies: ELLIS (dyspnea on exertion), hemoptysis. Cardiovascular: Denies: chest pain, ELLIS (dyspnea on exertion), e agata. GI: Denies: hematemesis, hematochezia. : Denies: hematuria, nocturia. Musculoskeletal: Denies: extremity pain, extremity swelling. Heme: Denies: bleeding, bruising. Endocrine: Denies: polydipsia, polyphagia. Neuro: Denies: confusion, dizziness, seizure. Psych: Denies: confusion, delusional. Objective Physical Exam VS/I O: Last Documented: Result Date Time Pulse Ox 100 06/24 1829 B/P 102/47 06/240 B/P Mean 65 06/240 O2 Delivery Simple mask 06/24 183 O2 Flow Rate 8 06/24 1830 Pulse 77 06/24 1830 Resp 15 06/24 183 Temp 35.7 06/24 1800 FiO2 28 06/24 0915 24 hour I O ending at 0700: 06/24 0700 06/23 1900 Intake Total 1464.00 615.00 Output Total 690 825 Balance 774.00 -210.00 Intake, IV 1464.00 375.00 Intake, Oral 240 Output, Urine 690 825 Patient 97 kg Weight Weight Bed scale Measurement Method Patient Weight and BMI Weight (kg): 97.000 BMI: 41.8 Medications: Active Meds + DC'd Last 24 Hrs Dexamethasone Sodium Phosphate (DECADRON) 0 .STK -MED ONE .ROUTE (DC) Lidocaine HCl (XYLOCAINE) 0 .STK-MED ONE .ROUTE (DC) Ondansetron HCl (ZOFRAN) 0 .STK-MED ONE .ROUTE ( DC) Sevoflurane (ULTANE) 0 .STK-MED ONE INH (DC) Epinephrine (EPINEPHrine) 0 .STK-MED ONE IV (DC) Sodium Bicarbonate (SODIUM BICARBONATE) 0 .STK-M ED ONE IV (DC) Thrombin (RECOTHROM) 0 .STK-MED ONE TOPICAL (DC) Sodium Chloride (SODIUM CHLORIDE 0.9%) 500 ML .S TK-MED ONE IV (DC) Etomidate (AMIDATE) 0 .STK-MED ONE IV (DC) Heparin Sodium/Sodium Chloride (HEPARIN 2,000 UN ITS/NS 1,000mL) 1,000 ML .STK-MED ONE IV (DC) Insulin Human Lispro (HUMALOG) 0 AC HS SUBQ Methylprednisolone Sodium Succinate (Solu-Medrol 125 MG Vial) 0 .STK-MED ONE IV (DC) Norepinephrine Bitartrate (NOREPINEPHRINE 8 MG/N S 250 ML) 250 ML .STK-MED ONE IV (DC) Phenylephrine HCl (MARYJANE-SYNEPHRINE 1000MCG/NS 10M L INJ) 0 .STK-MED ONE I- CHAVEZ (DC) Fentanyl Citrate (SUBLIMAZE) 0 .STK-MED ONE .ROU TE (DC) Heparin Sodium/Sodium Chloride (HEPARIN 1,000 UN ITS/NS 500ML) 500 ML .STK- MED ONE IV (DC) Lidocaine HCl (XYLOCAINE 1%) 0 .STK-MED ONE .ROU TE (DC) Midazolam HCl (VERSED) 0 .STK-MED ONE .ROUTE (DC ) Dextrose/Water (DEXTROSE 50% W SYRINGE) 25 ML DIR PRN IV (CKD) Dextrose/Water (DEXTROSE 50% W SYRINGE) 50 ML DIR PRN IV (CKD) Glucagon (GLUCAGON) 1 MG ASDIR PRN IM Aspirin (ASPIRIN) 81 MG DAILY PO Clopidogrel Bisulfate (Plavix) 75 MG DAILY PO Duloxetine HCl (CYMBALTA) 20 MG DAILY PO Isosorbide Dinitrate (ISORDIL) 60 MG DAILY PO (D A) Losartan Potassium (COZAAR) 50 MG DAILY PO Sodium Chloride (SODIUM CHLORIDE 0.9%) 500 ML DA ELADIO MISC Magnesium Sulfate (MAGNESIUM SULFATE 2GM/SWFI 50 ML) 50 ML ONCE ONE IV ( DC) Atorvastatin Calcium (LIPITOR) 40 MG BEDTIME PO Gabapentin (NEURONTIN) 600 MG BID PO Insulin Glargine (Lantus/Semglee) 25 UNIT BEDTIM E SUBQ Metoprolol Succinate (TOPROL XL) 12.5 MG BID PO Mupirocin (BACTROBAN 2% 22 GM OINTMENT) 1 APPLIC BID NASAL Insulin Human Lispro (HUMALOG) 0 AC HS SUBQ (DC) Dextrose/Water (DEXTROSE 50% W SYRINGE) 25 ML DIR PRN IV (DC) Dextrose/Water (DEXTROSE 50% W SYRINGE) 50 ML DIR PRN IV (DC) Glucagon (GLUCAGON) 1 MG ASDIR PRN IM Heparin Sodium (HEPARIN 5000 UNITS/ML) 0 ASDIR P RN IV Heparin Sodium (Porcine) (HEPARIN 25,000 UNITS/ 1/2NS 500ML) 500 ML ASDIR IV (CKD) Hydrocodone Bitart/Acetaminophen (NORCO 10/325) 1 TAB Q6H PRN PRN PO Morphine Sulfate (morphine SULFATE) 4 MG Q2H IN N PRN IV Ondansetron HCl (ZOFRAN) 4 MG Q8H PRN PRN IV Sodium Chloride (SODIUM CHLORIDE 0.9%) 1,000 ML .Q10H IV Atropine Sulfate (ATROPINE SULFATE 0.1MG/ML SYR) 0.5 MG ASDIR PRN IV (DC ) Heparin Sodium (HEPARIN 5000 UNITS/ML) 12,500 UN IT DAILY PRN PRN I- CATHETER Dextrose/Water (DEXTROSE 5% WATER) 500 ML Heparin Sodium/Dextrose (HEPARIN 25,000 UNITS/D5 W 500ML) 500 ML DAILY PRN PRN I-CATHETER Sodium Chloride (SODIUM CHLORIDE 0.9%) 1,000 ML .[id number] IV (DC) Sodium Chloride (SODIUM CHLORIDE 0.9%) 500 ML DIR PRN IV (DC) General appearance: alert, awake, oriented, no a cute distress, pleasant, conversational, mental status normal, no respira tory distress Head/Eyes: atraumatic, clear cornea, normal conjunctiva/sclera, normal eyelids/ periorb., normocephalic, PERRL ENT: moist mucosal membranes, normal nose, jerry l sinus Neck: non-tender, normal thyroid, no JVD Cardiovascular: normal capillary refill, normal heart sounds, regular rate and rhythm, normal S1/S2 Respiratory: aerating well, clear to auscultatio n, symmetric expansion, no distress Abdomen: soft, non-tender, normal bowel sounds, no distention, no guarding, no rebound Genitourinary: no bladder distention, no flank p ain Extremities: moves all, normal capillary refill, no clubbing, no cyanosis, no edema Skin: dry, normal color, normal temperature Psychiatry: normal affect, normal mood Results Findings/Data: Laboratory Tests 06/24/21 1240: [Embedded Image Not Available] 06/24/21 1030: [Embedded Image Not Available] 06/24/21 0500: [Embedded Image Not Available] Laboratory Tests 06/24 1651 Blood Gas Puncture Site Central Line O2 Saturation (90 - 100 %) 99.8 ABG pH (7.35 - 7.45) 7.268 *L ABG pCO2 (35.0 - 45 mmHg) 46.0 H ABG pO2 (80 - 100.0 mmHg) 247.9 *H ABG HCO3 (22.0 - 26.0 MMOL/L) 21.0 L ABG Total CO2 22.4 ABG Base Excess (-4.0 - 4.0 MMOL/L) -5.9 L ABG Hematocrit (33.0 - 45.0 %) 21 L ABG Hemoglobin (11.0 - 15.0 G/DL) 7.0 L Sodium (134 - 147 MEQ/L) 139 Potassium (3.4 - 5.0 MEQ/L) 3.5 Chloride (100 - 108 MEQ/L) 100 Ionized Calcium (1.12 - 1.32 MMOL/L) 1.09 L Lactic Acid (0.9 - 1.7 mmol/l) 6.5 *H Laboratory Tests 06/24 1651 1121 0830 0500 Chemistry Sodium (134 - 147 mEq/L) 136 Potassium (3.4 - 5.0 mEq/L) 4.2 Chloride (100 - 108 mEq/L) 108 Carbon Dioxide (21 - 33 mEq/l) 19 L Anion Gap (0 - 20) 13 BUN (7 - 18 mg/dL) 10 Creatinine (0.6 - 1.3 mg/dL) 1.1 POC Creatinine (0.6 - 1.0 mg/dL) 1.2 H Glomerular Filtr Rate (90 - 95) 50.8 L Glucose (70 - 110 mg/dL) 263 H POC Glucose (70 - 110 MG/DL) 301 H 165 H 201 H POC Glucose (mg/dL) (MG/DL) 295 Calcium (8.0 - 10.5 mg/dL) 8.2 Magnesium (1.80 - 2.40 mg/dL) 1.79 L Laboratory Tests 06/24 06/24 06/24 06/24 06/24 1645 1240 1030 0738 0500 Coagulation PTT (Napa) (25.0 - 39.5 Seconds) 96.3 H 93.7 H 115.0 H 129.9 H Activated Coag Time (74 - 137 SEC) 136 06/24 06/23 06/23 0200 2200 2055 Coagulation PTT (Napa) (25.0 - 39.5 Seconds) 45.4 H 33.3 65 .5 H Laboratory Tests 06/24 06/24 06/24 1240 1030 0500 Hematology WBC (4.5 - 11.0 x10 3/uL) 14.0 H 12.5 H 16.1 H RBC (3.54 - 5.02 x10 6/uL) 3.35 L 3.30 L 3.80 Hgb (11.0 - 15.0 g/dL) 9.6 L 9.3 L 10.8 L Hct (33.0 - 45.0 %) 30.9 L 29.5 L 33.9 MCV (81.0 - 99.0 fL) 92.2 89.4 89.2 MCH (27.0 - 33.0 pg) 28.7 28.2 28.4 MCHC (33.0 - 37.0 g/dL) 31.1 L 31.5 L 31.9 L RDW (11.5 - 14.5 %) 16.0 H 15.9 H 15.7 H Plt Count (150 - 400 x10 3/uL) 194 213 233 MPV (7.0 - 9.0 fL) 9.5 H 9.3 H 9.4 H Neut % (Auto) (56.0 - 77.0 %) 81.6 H 86.4 H Lymph % (Auto) (14.0 - 32.0 %) 10.2 L 5.4 L [place] % (Auto) (4.8 - 9.0 %) 7.6 7.5 Eos % (Auto) (0.3 - 3.7 %) 0.0 L 0.0 L Baso % (Auto) (0.0 - 2.0 %) 0.1 0.1 Neut # (Auto) (2.0 - 7.6 x10 3/uL) 10.24 H 13.9 1 H Lymph # (Auto) (1.0 - 3.8 x10 3/uL) 1.28 0.87 L [place] # (Auto) (0.1 - 0.8 x10 3/uL) 0.95 H 1.21 H Eos # (Auto) (0.0 - 0.2 x10 3/uL) 0.00 0.00 Baso # (Auto) (0.0 - 0.2 x10 3/uL) 0.01 0.01 Abs Immat Gran (auto) (0.00 - 0.03 x10 3/uL) 0 .06 H 0.10 H Add Manual Diff NO NO Immature Gran % (0.0 - 2.0 %) 0.5 0.6 Nucleated RBC % (0 - 0 %) 0.0 0.0 Nucleated RBCs # (Man) (0.0 - 0.1 x10 3/uL) 0.0 0 0.00 Results: labs reviewed, vital signs revi ewed, rhythm personally rev'd, current med profile rev'd Diagnosis, Assessment Plan Diagnosis, Assessment Plan Problem list/A P: 1. Coronary artery disease 2. Diabetes mellitus 3. Hypertension 4. Rheumatoid arthritis Consultants: cardiology, cardiovascular surgery, critical/waste machine tender, hospitalist Plan discussed with: patient, nurse Critical care time: Minutes: 40 Code Status/Resusc. Discussion Resuscitation discussion: Discussed with: patient Code status: full code Free text DxA P: Problem List: Hypotension Acute blood loss anemia Acute coronary syndrome status post PCI RCA dissection Cardiogenic shock Impella support Assessment and Plan: Patient seen and examined in CCU room #3308 this evening. She underwent PCI with RCA dissection leading to cardiogenic shock . Patient was supported with Impella. Upon removal of Impella she developed r ight groin hematoma, acute blood loss anemia and severe hypotension . CODE BLUE was called but patient did not lose pulse. She had to undergo cutdown in or ramon to repair the femoral artery approach. Patient is stable now. She is a wake, interactive, following commands and moving all 4 extremities. Patient r eceived 2.0 L of crystalloids and 1 unit of packed red cell. Latest hemoglobin is 8 g/dL. Currently on Levophed at 5 mics/min. Blood pressure is 102/47 mmHg with a heart rate of 79 in sinus rhythm and respiratory rate of 13. Puls e ox is 100%. Repeat lab has been ordered for 8 PM along with BMP, H H, lacti c acid. Tamy Martinez is a 61 years old female wit h past medical history significant for CAD with prior PCI/MIKHAIL to LAD (), HTN, DM, CVA, HLD who has been having angina. She was admitted electively on 06/23/21 for staged PCI to right PDA and RCA. The patient had successul PCI of the ostial PDA with MIKHAIL. However, the patient developed dissection of the proximal to mid RCA post balloon angioplasty. Impella LVAD was in serted for stability. This morning the patient was doing well, awak e and alert, no chest pain, and no SOB. Had episode of hypotension which responded to 500 ml IVF barbara llenge. Patient underwent cutdown and repair of the femoral artery. Right groin is stable now. Patient is neuro intact. She is awake interactive follow ing commands and moving all 4 extremities. Patient is full code. Patient sustained severe hypotension and near CO DE STATUS CODE BLUE was called but patient not lose cardia c rhythm Patient had bleeding from the femoral access sit e for the Impella CT surgery was consulted Patient underwent cutdown and repair of the femo ral artery Has intact pulses in the lower extremities She was resuscitated with 2 L of crystalloids Also received 1 unit of packed red cell Echocardiogram did not show any tamponade physiology currently on Levophed at 5 mcg/min Vital signs are stable with a heart rate of 79, blood pressure 102/47 mmHg, respiratory rate 13 and pulse ox 1% while on montserrat al cannula oxygen Repeat hemoglobin has been ordered at 8 PM No fever reported. Has mild leukocytosis Appears to be intravascularly dry Crystalloid boluses Wean norepinephrine drip Monitor right groin Monitor peripheral pulses in the right lower ext remity Check labs including CBC, BMP, ionized calcium a nd magnesium at 8 PM Monitor urine output and BMP SCDs for DVT prophylaxis Eduardo Robledo MD [facility] 06/24/2021 8.40 PM [facility] Current Medications Current medication review: Home Medications: GABAPENTIN (NEURONTIN) 600 MG PO BID FOLIC ACID 1 MG PO DAILY METOPROLOL SUCC XL (TOPROL XL) 12.5 MG PO BID ISOSORBIDE DINITRATE (ISORDIL) 60 MG PO DAILY ASPIRIN 81 MG PO DAILY DULoxetine DR (CYMBALTA) 20 MG PO DAILY LOSARTAN (COZAAR) 50 MG PO DAILY ATORVASTATIN (LIPITOR) 40 MG PO BEDTIME METHOTREXATE (RHEUMATREX) 2.5 MG PO Q7D INSULIN ASPART (NovoLOG) Insulin Degludec (TRESIBA FLEXTOUCH U-100 (3mL)) 26 UNITS SUBQ DAILY HYDROcodone/APAP (NORCO 10/325) 1 TAB PO Q6H PRN PRN PAIN [XELJANZ] (Unknown Dose) PO DAILY NITROGLYCERIN (NITROSTAT) 0.4 MG SL Q5M PRN PRN ANGINA CLOPIDOGREL (PLAVIX) 75 MG PO DAILY Electronically Signed by Eduardo Robledo MD on 06/11 08/01 at 0612 [facility] #:[id number] END OF REPORT 2021-06-24 17:36:00-00:00 [id number] [place] [address] PATIENT NAME: TAMY MARTINEZ ADMIT DATE: ACCOUNT NO: [id number] ROOM NO: [facility] AGE: 61 REPORT TYPE: OPERATIVE REPORT SEX: F ADMITTING PHYSICIAN:Alejandra Zeng MD ATTENDING PHYSICIAN:Alejandra Zeng MD OPERATION DATE: 06/24/2021 PREOPERATIVE DIAGNOSIS: Bleeding from right comm on femoral artery. POSTOPERATIVE DIAGNOSIS: Bleeding from right com mon femoral artery. PROCEDURES PERFORMED: 1. Exploration of right common femoral artery. 2. Repair of right common femoral artery. SURGEON: Martina Whitt MD SWITCHBOX ASSEMBLER: Mary Mcdonnell. ANESTHESIOLOGIST: Dr. Brown. ANESTHESIA: General endotracheal anesthesia. ESTIMATED BLOOD LOSS: 20 mL. INDICATIONS: Ms. Martinez is a 61-year-old female who had an Impella placed for cardiogenic shock. She has recovered completely and she was ready for the Impella to be removed today. The patient was marck en to the operations label clerk, and after removal of Impella, unsuccessful attempts were m jef to close the common femoral artery defect with Perclose device. The patient developed significant right groin hematoma and hence intraoperative ca rdiovascular consults were obtained. FINDINGS: 1. The patient had about 5 m m defect in the anterior wall of the common femoral artery, with a Perclose device deployed in the s ubcutaneous tissue 2. Following repair of the defect, the patient h ad good pulses and dorsalis pedis artery in the right leg. PROCEDURE IN DETAIL: Ms. Martinez was identified i n the operations label clerk. The groin was already prepped prior to my arrival and the gonzález ent had a 14-Irish sheath in the groin, and there was a large hematoma in the right groin. After induction of anesthesia, right common femoral artery was e xplored via a 4 cm transverse incision centered on the midpoint of the right inguinal ligament. Subcutaneous tissue was divided with Bovie cautery. T he 14-Irish sheath was identified and traced down to the right common femoral artery. Next, two concentric 5-0 Prolene pursestring sutures were placed around the sheath. The sheath was then removed and sutures were tied. This was very hem ostatic. Pulses were checked PATIENT NAME: TAMY MARTINEZ ACCOUNT #: [id number] in the right lower extremity. The patient had go od dorsalis pedis signals. Next, hemostasis was confirmed and the i ncision was closed in layers using 2-0 Vicryl for subcutaneous tissue and 4-0 Vicryl fo r the skin. The patient was extubated in the operations label clerk and moved to PACU in s table condition. Dictated By: Martina Whitt MD WT: OP:ARELY/PETERSON/JULIO C Conf#: [id number]/DID#: [id number] Authenticated and Edited by Reno Whitt MD On 06/26/21 7:53:11 AM at 0755 PATIENT NAME: TAMY MARTINEZ ACCOUNT #: [id number] 2021-06-24 17:29:00-00:00 HCACL [facility] [place] [facility] ([facility]) Brief Op Note REPORT#:[id number] REPORT STATUS: Signed DATE:06/24/21 TIME: 1729 PATIENT: TAMY MARTINEZ UNIT #: [id number] ROOM/BED: [place] [address] : 64 AGE: 61 SEX: F ATTEND: Conrado Zeng MD ADM AUTHOR: Martina Whitt MD * ALL edits or amendments must be made on the Wooop/Mailcloud document * Op/Inv Proc Note - Brief Pre-procedure diagnosis: bleeding right GRAILS WEB APPLICATION DEVELOPER Post-procedure diagnosis: same as pre procedure dx Procedures performed: Exploration of RCFA Repair of RCFA Primary Surgeon: Peri Edge Kitter(s): Mary Mcdonnell Findings: 5 mm defect in the RCFA Complications: none Estimated blood loss in ml's: 20 cc Specimens removed/altered: none at 1732 RPT #:[id number] END OF REPORT 2021-06-24 12:50:00-00:00 HCACL [facility] [place] [facility] ([facility]) Cardiothoracic Surgery Consult REPORT#:[id number] REPORT STATUS: Signed DATE:06/24/21 TIME: 1250 PATIENT: TAMY MARTINEZ UNIT #: [id number] ROOM/BED: [place] [address] : 64 AGE: 61 SEX: F ATTEND: Conrado Zeng MD ADM AUTHOR: Stephen Canela NP * ALL edits or amendments must be made on the Wooop/Mailcloud document * Stephen Canela 06/24/21 1250: History of Present Illness HPI Chief complaint: RCA dissection PCP: PCP: No Primary or Family Physician Requesting Clinician Dr. Mcdonald HPI: Ms Tamy Martinez is a 61 year old femal e with past medical history significant for CAD with prior PCI/MIKHAIL to LAD (), HTN, DM, CVA, and HLD who was admitted to the [facility] for elective PCI. Patient underwent successful PCI of the ostial PDA with D ES. However, the patient developed dissection of the proximal to mid RCA post balloon angiopl asty. Impella catheter then placed for additional support. CV surgery consulted for loan luation, in the event further surgical intervention is required History Past Medical History: Reports: Coronary artery disease, Diabetes melli tus, Hypertension, Ischemic stroke. Denies: Atrial fibrillation, Congestive heart failure. Past Surgical History: Reports: Cholecystectomy. Alcohol Use Denies EtOH use Drug Use Benzodiazepines Smoking status: Smoking status for patients 13 years old or old er: Never Smoker Allergies: Coded Allergies: iodine (Intermediate, HIVES 05/10/21) Converted from Ingredient Allergy: IODINE Review of Systems Review of Systems Constitutional: Denies: chills, fatigue, fever. Skin: Denies: rash, swelling. Eyes: Denies: redness, discharge. Respiratory: Denies: SOB, wheezing. Cardiovascular: Denies: chest pain, ELLIS (dyspnea on exertion). GI: Denies: diarrhea, nausea, vomiting. Musculoskeletal: Denies: extremity pain, extremity swelling. Objective Physical Exam VS/I O: Last Documented: Result Date Time Pulse Ox 97 06/25 1899 B/P 118/53 06/25 1900 B/P Mean 77 06/25 1900 Pulse 81 06/25 1900 Resp 14 06/25 1900 Temp 98.2 06/25 1630 O2 Delivery Nasal cannula 06/25 0749 O2 Flow Rate 2 06/25 0749 FiO2 28 06/24 0915 24 hour I O ending at 0700: 06/25 0700 06/24 1900 Intake Total 2747.00 4179.00 Output Total 450 600 Balance 2297.00 3579.00 Intake, IV 2597.00 4079.00 Intake, Oral 150 100 Intake, Oral 0 Supplement Number 0 0 Bowel Movements Output, Urine 450 600 Patient 219 lb Weight Weight Bed scale Measurement Method PATIENT WEIGHT: Weight (lb): 218 Weight (oz): 11.18 Weight (kg): 99.200 General appearance: alert, awake, oriented HEENT: pupils reactive to light, sclera clear Neck: full range of motion, non-tender Cardiovascular: normal heart sounds, regular rat e rhythm Respiratory: aerating well, clear to auscultatio n Abdomen: soft, non-tender Extremities: dry, moves all Musculoskeletal: full range of motion 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, oriented X 3 Skin: dry, intact Diagnosis, Assessment Plan Free Text A P: Ms Tamy Martinez is a 61 year old femal e with past medical history significant for CAD with prior PCI/MIKHAIL to LAD (), HTN, DM, CVA, and HLD who was admitted to the [facility] for elective PCI. Patient underwent successful PCI of the ostial PDA with D ES. However, the patient developed dissection of the proximal to mid RCA post balloon angiopl asty. Impella catheter then placed for additional support and patie nt was transferred to CCU. CV surgery consulted for evaluation, in the event further surgical interv ention is required Patient seen and examined by Dr. Whitt. Patien t is awake, denies pain and hemodynamically stable. Plan is to continue Impe lla support for now, allowing time for RCA dissection to heal. CV surgery matthew ins available should patient become unstable and require surgical interventio n. Thank you for this kind consult Martina Whitt 06/29/21 0947: Attestations Physician Attestation Agree w/findings plan: I have seen and examined Ms. Martinez. I agree wit h the findings and plan as documented by ZAIRE Guerrero. Briefly, 61-year-old female with right c oronary dissection during PCI. Impella was placed through the groin. Patient is current ly chest pain-free and hemodynamically stable. She does not need any mobley rgical intervention. We will continue to follow. Thank you for the kind consult. Electronically Signed by Stephen Canela NP on at 2054 at 1004 RPT #:[id number] END OF REPORT 2021-06-24 12:10:00-00:00 [id number] [place], [place] [address] PATIENT NAME: TAMY MARTINEZ ADMIT DATE: ACCOUNT NO: [id number] ROOM NO: G.[id number] AGE: 61 REPORT TYPE: eECHOCARDIOGRAM REPORT SEX: F ADMITTING PHYSICIAN:Alejandra Zeng MD ATTENDING PHYSICIAN:Alejandra Zeng MD *[address] [place] [address] Limited Transthoracic Echocardiogram Patient: Tamy Martinez Study Date: 06/24/2021 BP: 110 / 56 Location: [facility] URN: [id number] : 1960 Age: 61 Height: 60 in / 152.4 cm Gender: F Weight: 212 .6 lb / 96.6 kg BMI/BSA: 41.6 kg/m 2 / 1.92 m 2 *Ordering Physician: * Inga Robertson MD *Interpreting Physician: * Inga Robertson MD *Maintenance Leader: * Angelique Lynch Indications: IMPELLA. Study data: Transthoracic echocardiogram, limite d study. Procedure: Transthoracic echocardiography was performed. Im ages were obtained using a DOCUSYS cardiac ultrasound machine. Image quality w as adequate. The study was technically limited due to restricted patien t mobility. Limited 2D and limited spectral Doppler. Location: Bedside. Patient status: Inpatient. Patient room number: 3308. Study stat us: Routine. Findings Left ventricle: The cavity size is normal. Wall thickness is normal. Systolic function is normal. The estimated eject ion fraction is 55-59%. Aortic valve: Impella position could not accurat chicho assessed but estimated to be placed at 3.5 cm. PATIENT NAME: TAMY MARTINEZ ACCOUNT #: [id number] Measurements Left ventricle Value 05/13/2021 Ref IVORY, LAX 4.5 cm 4.7 3.8 - 5.2 ESD, LAX 2.9 cm 2.9 2.2 - 3.5 ESD/bsa, 1.5 cm/m 2 1.4 1.3 - LAX 2.1 FS, LAX 36 % 37 27 - 45 PW, ED 1.0 cm 1.0 0.6 - 0.9 IVS/PW, ED 1.05 1.13 ------- EF 66 % 67 54 - 74 Ventricular septum Value 05/13/2021 Ref IVS, ED 1.0 cm 1.1 0.6 - 0.9 Conclusions Summary: Left ventricle: The cavity size is norm al. Wall thickness is normal. Systolic function is normal. The estimat ed ejection fraction is 55-59%. Prepared and electronically signed by Inga Robertson MD 06/24/2021 12:10 Electronically Signed by Inga Robertson MD on 0 06/24/21 at 1210 PATIENT NAME: TAMY MARTINEZ ACCOUNT #: [id number] 2021-06-24 10:07:00-00:00 HCACL [facility] ([facility]) Hospitalist History Physical REPORT#:[id number] REPORT STATUS: Signed DATE:06/24/21 TIME: 1007 PATIENT: TAMY MARTINEZ UNIT #: [id number] ROOM/BED: [place] [address] : 64 AGE: 61 SEX: F ATTEND: Conrado Zeng MD ADM AUTHOR: Agnes Almeida MD * ALL edits or amendments must be made on the Wooop/computer document * History of Present Illness HPI Chief complaint: cp HPI: 61 years old female with PMH of CAD , DM, HLD ,Hx of CVA and HTN was admitted to the hospital for staged PCI to right PDA and RCA yesterday . the patient developed dissection of the proximal to mid RCA post balloon angioplasty. impella was inserted . she w as transferred to CCU . now she feel well . no cp no sob . no fever no nausea no vomiting no abdomina l pain no dysuria History Family History Additional family history: Non contributory Social History Alcohol use: Denies EtOH use Drug use: Benzodiazepines Smoking status: Smoking status for patients 13 years old or old er: Never Smoker Medication/Allergy-Vaccine Hx Allergies: Coded Allergies: iodine (Intermediate, HIVES 05/10/21) Converted from Ingredient Allergy: IODINE Review of Systems Constitutional: Denies: fatigue, fever, generalized weakness, le thargy. Respiratory: Denies: productive cough (sputum), SOB, wheezing . Cardiovascular: Denies: chest pain, ELLIS (dyspnea on exer tion), edema, orthopnea, palpitations. GI: Denies: abdominal pain, diarrhea, nausea, vomiti ng. : Denies: dysuria, flank pain, frequency, hematuri a. Neuro: Denies: dizziness, headache. Physical Exam VS/I O: Vital Signs Date Temp Pulse Resp B/P B/P Mean Pulse Ox FiO2 06/23-06/24 36.4-37.3 54-77 12-26 89-175/50-77 66-110 94-100 Last Documented: Result Date Time Pulse Ox 100 06/25 639 Pulse 68 06/24 0540 Resp 13 06/24 0540 B/P 165/63 06/24 0630 B/P Mean 107 06/24 629 Temp 37.2 06/24 0400 O2 Delivery Nasal cannula 06/24 1999 O2 Flow Rate 2 06/24 1999 24 hour I O ending at 0700: 06/24 0700 06/23 1900 Intake Total 1464.00 615.00 Output Total 690 825 Balance 774.00 -210.00 Intake, IV 1464.00 375.00 Intake, Oral 240 Output, Urine 690 825 Patient 97 kg Weight Weight Bed scale Measurement Method Patient Weight and BMI Weight (kg): 97.000 BMI: 41.8 General appearance: alert, awake, oriented, no a cute distress Head/Eyes: atraumatic, normal conjunctiva/sclera , normal eyelids/periorb., normocephalic Neck: full range of motion, non-tender, normal t hyroid, no JVD Cardiovascular: normal heart sounds, regular rat e rhythm Respiratory: aerating well, clear to auscultatio n Abdomen: non-tender, normal bowel sounds, soft, no distention Extremities: moves all, no calf tenderness, no e agata 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, oriented X 3, CNII-XII intact, normal speech, no motor deficits, no sensory deficits Skin: dry, intact Results Findings/Data: Laboratory Tests: 06/24 06/24 06/24 06/24 1240 1121 1030 0830 Chemistry POC Glucose (70 - 110 MG/DL) 165 H 201 H Coagulation PTT ([place]apa) (25.0 - 39.5 Seconds) 96.3 H 93.7 H Hematology WBC (4.5 - 11.0 x10 3/uL) 14.0 H 12.5 H RBC (3.54 - 5.02 x10 6/uL) 3.35 L 3.30 L Hgb (11.0 - 15.0 g/dL) 9.6 L 9.3 L Hct (33.0 - 45.0 %) 30.9 L 29.5 L MCV (81.0 - 99.0 fL) 92.2 89.4 MCH (27.0 - 33.0 pg) 28.7 28.2 MCHC (33.0 - 37.0 g/dL) 31.1 L 31.5 L RDW (11.5 - 14.5 %) 16.0 H 15.9 H Plt Count (150 - 400 x10 3/uL) 194 213 MPV (7.0 - 9.0 fL) 9.5 H 9.3 H Neut % (Auto) (56.0 - 77.0 %) 81.6 H Lymph % (Auto) (14.0 - 32.0 %) 10.2 L [place] % (Auto) (4.8 - 9.0 %) 7.6 Eos % (Auto) (0.3 - 3.7 %) 0.0 L Baso % (Auto) (0.0 - 2.0 %) 0.1 Neut # (Auto) (2.0 - 7.6 x10 3/uL) 10.24 H Lymph # (Auto) (1.0 - 3.8 x10 3/uL) 1.28 [place] # (Auto) (0.1 - 0.8 x10 3/uL) 0.95 H Eos # (Auto) (0.0 - 0.2 x10 3/uL) 0.00 Baso # (Auto) (0.0 - 0.2 x10 3/uL) 0.01 Abs Immat Gran (auto) (0.00 - 0.03 x10 3/uL) 0 .06 H Add Manual Diff NO Immature Gran % (0.0 - 2.0 %) 0.5 Nucleated RBC % (0 - 0 %) 0.0 Nucleated RBCs # (Man) (0.0 - 0.1 x10 3/uL) 0.0 0 06/24 06/24 06/24 06/23 0738 0500 0200 2200 Chemistry Sodium (134 - 147 mEq/L) 136 Potassium (3.4 - 5.0 mEq/L) 4.2 Chloride (100 - 108 mEq/L) 108 Carbon Dioxide (21 - 33 mEq/l) 19 L Anion Gap (0 - 20) 13 BUN (7 - 18 mg/dL) 10 Creatinine (0.6 - 1.3 mg/dL) 1.1 Glomerular Filtr Rate (90 - 95) 50.8 L Glucose (70 - 110 mg/dL) 263 H Calcium (8.0 - 10.5 mg/dL) 8.2 Magnesium (1.80 - 2.40 mg/dL) 1.79 L Coagulation PTT (Samuel) (25.0 - 39.5 Seconds) 115.0 H 129.9 H 45.4 H 33.3 Hematology WBC (4.5 - 11.0 x10 3/uL) 16.1 H RBC (3.54 - 5.02 x10 6/uL) 3.80 Hgb (11.0 - 15.0 g/dL) 10.8 L Hct (33.0 - 45.0 %) 33.9 MCV (81.0 - 99.0 fL) 89.2 MCH (27.0 - 33.0 pg) 28.4 MCHC (33.0 - 37.0 g/dL) 31.9 L RDW (11.5 - 14.5 %) 15.7 H Plt Count (150 - 400 x10 3/uL) 233 MPV (7.0 - 9.0 fL) 9.4 H Neut % (Auto) (56.0 - 77.0 %) 86.4 H Lymph % (Auto) (14.0 - 32.0 %) 5.4 L [place] % (Auto) (4.8 - 9.0 %) 7.5 Eos % (Auto) (0.3 - 3.7 %) 0.0 L Baso % (Auto) (0.0 - 2.0 %) 0.1 Neut # (Auto) (2.0 - 7.6 x10 3/uL) 13.91 H Lymph # (Auto) (1.0 - 3.8 x10 3/uL) 0.87 L [place] # (Auto) (0.1 - 0.8 x10 3/uL) 1.21 H Eos # (Auto) (0.0 - 0.2 x10 3/uL) 0.00 Baso # (Auto) (0.0 - 0.2 x10 3/uL) 0.01 Abs Immat Gran (auto) (0.00 - 0.03 x10 3/uL) 0. 10 H Add Manual Diff NO Immature Gran % (0.0 - 2.0 %) 0.6 Nucleated RBC % (0 - 0 %) 0.0 Nucleated RBCs # (Man) (0.0 - 0.1 x10 3/uL) 0.0 0 06/23 1950 1745 Chemistry POC Glucose (70 - 110 MG/DL) 316 H Coagulation PTT ([place]) (25.0 - 39.5 Seconds) 65.5 H 104.0 H > 200.0 H Hematology WBC (4.5 - 11.0 x10 3/uL) 11.2 H RBC (3.54 - 5.02 x10 6/uL) 3.83 Hgb (11.0 - 15.0 g/dL) 10.8 L Hct (33.0 - 45.0 %) 33.9 MCV (81.0 - 99.0 fL) 88.5 MCH (27.0 - 33.0 pg) 28.2 MCHC (33.0 - 37.0 g/dL) 31.9 L RDW (11.5 - 14.5 %) 15.4 H Plt Count (150 - 400 x10 3/uL) 241 MPV (7.0 - 9.0 fL) 9.6 H Neut % (Auto) (56.0 - 77.0 %) 89.8 H Lymph % (Auto) (14.0 - 32.0 %) 6.3 L [place] % (Auto) (4.8 - 9.0 %) 3.4 L Eos % (Auto) (0.3 - 3.7 %) 0.0 L Baso % (Auto) (0.0 - 2.0 %) 0.1 Neut # (Auto) (2.0 - 7.6 x10 3/uL) 10.08 H Lymph # (Auto) (1.0 - 3.8 x10 3/uL) 0.71 L [place] # (Auto) (0.1 - 0.8 x10 3/uL) 0.38 Eos # (Auto) (0.0 - 0.2 x10 3/uL) 0.00 Baso # (Auto) (0.0 - 0.2 x10 3/uL) 0.01 Abs Immat Gran (auto) (0.00 - 0.03 0.05 H x10 3/uL) Add Manual Diff NO Immature Gran % (0.0 - 2.0 %) 0.4 Nucleated RBC % (0 - 0 %) 0.0 Nucleated RBCs # (Man) (0.0 - 0.1 x10 3/uL) 0.0 0 06/23 06/23 06/23 06/23 1701 1625 1459 1416 Chemistry POC Glucose (70 - 110 MG/DL) 365 H Coagulation PTT ([place]) (25.0 - 39.5 Seconds) > 200.0 H Activated Coag Time (74 - 137 SEC) 267 H 255 H Laboratory Tests 06/24/21 1240: [Embedded Image Not Available] 06/24/21 1030: [Embedded Image Not Available] 06/24/21 0500: [Embedded Image Not Available] 06/23/21 1950: [Embedded Image Not Available] Diagnosis, Assessment Plan Free Text A P: angina /CAD hypotension -- cardiagenic HTN leucocytosis DM HLD angina/CAD LHC -- PCI cardiology consult continue home med plavix /ASA continue home medication hypotension cardiogenic--impella was inserted resolve BP-- stable leucocytosis no sign of infection monitor cbc DM- sliding scale continue home med HTN-- monitor stable HLD -- continue home med Consultants: cardiology, cardiovascular surgery, critical/waste machine tender Quality: Gen Med Crit Care Current Medications Current medication review: Current Medications Sig/Nandini Start time Last Medication Dose Route Stop Time Status Admin Dexamethasone Sodium 0 .STK-MED ONE 06/24 1732 DC Phosphate .ROUTE Lidocaine HCl 0 .STK-MED ONE 06/24 1732 DC .ROUTE Ondansetron HCl 0 .STK-MED ONE 06/24 1732 DC .ROUTE Sevoflurane 0 .STK-MED ONE 06/24 1732 DC INH Epinephrine 0 .STK-MED ONE 06/24 1713 DC 06/24 IV 1715 Sodium Bicarbonate 0 .STK-MED ONE 06/24 1713 DC 06/24 IV 1715 Thrombin 0 .STK-MED ONE 06/24 1703 DC TOPICAL Sodium Chloride 500 ML .STK-MED ONE 06/24 1650 DC IV Etomidate 0 .STK-MED ONE 06/24 1648 DC IV Heparin Sodium/ 1,000 ML .STK-MED ONE 06/24 164 1 DC 06/24 Sodium Chloride IV 1705 Insulin Human Lispro 0 AC HS 06/24 1630 AC SUBQ 07/24 1629 Methylprednisolone 0 .STK-MED ONE 06/24 1629 DC 06/24 Sodium Succinate IV 1705 Norepinephrine 250 ML .STK-MED ONE 06/24 1626 D C 06/24 Bitartrate IV 1705 Phenylephrine HCl 0 .STK-MED ONE 06/24 1607 DC 06/24 I-CHAVEZ 1705 Fentanyl Citrate 0 .STK-MED ONE 06/24 1533 DC 0 06/24 .ROUTE 1539 Heparin Sodium/ 500 ML .STK-MED ONE 06/24 1533 DC 06/24 Sodium Chloride IV 1539 Lidocaine HCl 0 .STK-MED ONE 06/24 1533 DC .ROUTE 1539 Midazolam HCl 0 .STK-MED ONE 06/24 1532 DC 06/11 4 .ROUTE 1539 Dextrose/Water 25 ML ASDIR PRN 06/24 1345 CKD IV 07/24 1344 Dextrose/Water 50 ML ASDIR PRN 06/24 1345 CKD IV 07/24 1344 Glucagon 1 MG ASDIR PRN 06/24 1345 AC IM 07/24 1344 Aspirin 81 MG DAILY 06/24 0900 AC 06/24 PO 07/24 0859 0916 Clopidogrel Bisulfate 75 MG DAILY 06/24 0900 AC 06/24 PO 07/24 0859 1435 Duloxetine HCl 20 MG DAILY 06/24 0900 AC 06/24 PO 07/24 0859 0916 Isosorbide Dinitrate 60 MG DAILY 06/24 0900 DA 06/24 PO 07/24 0859 0917 Losartan Potassium 50 MG DAILY 06/24 0900 AC PO 07/24 0859 0916 Sodium Chloride 500 ML DAILY 06/24 0900 AC MISC 07/24 0859 Magnesium Sulfate 50 ML ONCE ONE 06/24 0830 DC 06/24 IV 06/24 1029 0921 Atorvastatin Calcium 40 MG BEDTIME 06/23 2100 A C 06/23 PO 07/23 2058 2032 Gabapentin 600 MG BID 06/23 2100 AC 06/24 PO 07/23 2058 0916 Insulin Glargine 25 UNIT BEDTIME 06/23 2100 AC 06/23 SUBQ 07/23 2058 2030 Metoprolol Succinate 12.5 MG BID 06/23 2100 AC 06/24 PO 07/23 2058 0917 Mupirocin 1 APPLIC BID 06/23 2100 AC 06/24 NASAL 06/28 0901 0916 Insulin Human Lispro 0 AC HS 06/23 1800 DC 06/11 4 SUBQ 07/23 1749 0916 Dextrose/Water 25 ML ASDIR PRN 06/23 1730 DC IV 07/23 1729 Dextrose/Water 50 ML ASDIR PRN 06/23 1730 DC IV 07/23 1729 Glucagon 1 MG ASDIR PRN 06/23 1730 AC IM 07/23 1729 Heparin Sodium 0 ASDIR PRN 06/23 1730 AC IV 07/23 1729 Heparin Sodium 500 ML ASDIR 06/23 1730 CKD 06/11 4 (Porcine) IV 07/23 1729 0301 Hydrocodone Bitart/ 1 TAB Q6H PRN PRN 06/23 173 0 AC Acetaminophen PO 06/28 1729 Morphine Sulfate 4 MG Q2H PRN PRN 06/23 1730 AC 06/24 IV 06/28 1729 0634 Ondansetron HCl 4 MG Q8H PRN PRN 06/23 1730 AC IV 07/23 1729 Sodium Chloride 1,000 ML .Q10H 06/23 1730 AC IV 07/23 1729 1436 Atropine Sulfate 0.5 MG ASDIR PRN 06/23 1430 D C IV 06/24 1423 Heparin Sodium 12,500 UNIT DAILY PRN PRN 06/23 1430 AC Dextrose/Water 500 ML I-CATHETER 07/23 1429 Heparin Sodium/ 500 ML DAILY PRN PRN 06/23 1430 AC 06/23 Dextrose I-CATHETER 07/23 1429 2302 Sodium Chloride 1,000 ML .[id number] 06/23 1430 DC 06/23 IV 06/24 0349 1755 Sodium Chloride 500 ML ASDIR PRN 06/23 1430 DC IV 06/24 1423 Home Medications: GABAPENTIN (NEURONTIN) 600 MG PO BID FOLIC ACID 1 MG PO DAILY METOPROLOL SUCC XL (TOPROL XL) 12.5 MG PO BID ISOSORBIDE DINITRATE (ISORDIL) 60 MG PO DAILY ASPIRIN 81 MG PO DAILY DULoxetine DR (CYMBALTA) 20 MG PO DAILY LOSARTAN (COZAAR) 50 MG PO DAILY ATORVASTATIN (LIPITOR) 40 MG PO BEDTIME METHOTREXATE (RHEUMATREX) 2.5 MG PO Q7D INSULIN ASPART (NovoLOG) Insulin Degludec (TRESIBA FLEXTOUCH U-100 (3mL)) 26 UNITS SUBQ DAILY HYDROcodone/APAP (NORCO 10/325) 1 TAB PO Q6H PRN PRN PAIN [XELJANZ] (Unknown Dose) PO DAILY NITROGLYCERIN (NITROSTAT) 0.4 MG SL Q5M PRN PRN ANGINA CLOPIDOGREL (PLAVIX) 75 MG PO DAILY Electronically Signed by Agnes Almeida MD on 2 at 2103 RPT #:[id number] END OF REPORT 2021-06-24 09:03:00-00:00 [facility] ([facility]) Cardiology Consultation REPORT#:[id number] REPORT STATUS: Signed DATE:06/24/21 TIME: 902 PATIENT: TAMY MARTINEZ UNIT #: [id number] ROOM/BED: [place] [address] : [birth year] AGE: 61 SEX: F ATTEND: Conrado Zeng MD ADM AUTHOR: Zoraida Felder RECREATION SUPERINTENDENT * ALL edits or amendments must be made on the [employer]/computer document * History of Present Illness HPI Requesting Clinician: Dr. Mcdonald Reason for consult: Coronary artery disease s/p attempted RCA intervention complicated by dissection requiring Impella support Chief complaint: Chest pain prior to admission HPI: 61 YO female with MHx of CAD with prior PCI/MIKHAIL to LAD (05/2021), HTN, DM, CVA, HLD who has been having angina. She was admitted electively on 06/23/21 for staged PCI to right PDA and RCA. The patient had successul PCI of the ostial PDA with MIKHAIL. However, the patient developed dissection of the proximal to mid RCA post balloon angioplasty. Im pella LVAD was inserted for stability. This morning the patient was doing well, awake and alert, no chest pain, and no SOB. Had episode of hypotension which responded to 500 ml IVF challenge. History - Adult longitudinal Past medical history: Reports: Coronary artery disease, Diabetes melli tus, Hypertension, Ischemic stroke. Denies: Atrial fibrillation, Congestive heart failure. Past surgical history: Reports: Cholecystectomy. Additional family history: Non contributory Alcohol use: Denies EtOH use Drug use: Benzodiazepines Smoking status: Smoking status for patients 13 years old or old er: Never Smoker Allergies: Coded Allergies: iodine (Intermediate, HIVES 05/10/21) Converted from Ingredient Allergy: IODINE Review of Systems Constitutional: Denies: chills, fatigue, generalized weakness. Respiratory: Denies: SOB. Cardiovascular: Denies: chest pain, edema, orthopnea, palpitatio ns, unstable angina. GI: Denies: abdominal pain, nausea, vomiting. Neuro: Denies: confusion, dizziness, weakness. Objective General VS/I O: Vital Signs: Date Time Temp Pulse Resp B/P B/P Pulse O2 O2 F low FiO2 Mean Ox Delivery Rate / 0640 68 13 100 04/14 0630 76 26 165/63 107 100 04/14 0628 71 15 175/77 110 100 04/14 0615 68 15 100 04/14 0600 67 17 100 04/14 0545 67 14 137/58 93 100 04/14 0530 67 18 143/67 96 100 /14 0515 66 19 153/67 96 100 04/14 0500 66 12 125/58 84 100 04/14 0445 66 12 130/61 88 100 04/14 0430 66 13 142/63 90 100 04/14 0415 66 14 128/61 88 100 04/14 0401 66 16 144/61 88 99 04/14 0400 37.2 66 14 99 04/14 0345 66 13 134/61 88 100 04/14 0331 65 13 138/62 89 100 04/14 0330 65 15 100 04/14 0316 66 13 141/63 90 99 04/14 0315 67 13 100 04/14 0300 64 13 106/55 73 100 04/14 0245 62 15 108/56 80 99 04/14 0231 61 17 99 04/14 0230 61 20 110/56 80 99 04/14 0215 64 19 111/56 80 99 04/14 0200 66 15 133/60 87 99 04/14 0145 63 17 103/51 72 99 04/14 0130 64 12 98/50 70 99 04/14 0116 65 14 101/53 74 99 04/14 0115 63 16 100 04/14 0100 67 16 107/54 77 100 04/14 0045 66 12 102/54 76 99 04/14 0030 65 14 110/54 78 99 04/14 0020 63 12 99 04/14 0015 64 15 105/63 76 99 04/14 0000 37.3 65 13 127/58 83 98 06/23 2345 68 14 131/58 83 99 06/23 2330 71 14 102/62 77 99 06/23 2315 69 14 112/56 81 98 06/23 2300 65 16 126/60 87 98 06/23 2245 64 18 136/66 91 100 06/23 2230 63 17 132/60 86 100 06/23 2215 55 17 125/60 87 99 06/23 2214 54 17 127/60 87 99 06/23 2200 56 20 98 06/23 2145 62 16 127/65 91 98 06/23 2130 64 13 125/65 89 99 06/23 2115 61 16 113/58 80 99 06/23 2100 60 17 117/60 83 99 06/23 2045 59 18 109/59 81 99 06/23 2030 63 19 104/54 76 98 06/23 2015 63 16 108/59 79 98 06/24 1999 Nasal 2 cannula 06/24 1999 37.1 62 18 103/56 77 99 06/23 1945 77 21 99/58 75 99 06/23 1939 60 17 111/56 77 98 06/23 1930 61 21 99 06/23 1915 63 17 128/59 85 100 06/23 1900 60 18 121/58 83 99 06/23 1830 61 17 118/59 82 100 06/23 1800 63 24 116/57 82 96 06/23 1746 69 20 124/58 83 97 06/23 1730 70 20 136/63 90 95 06/23 1715 73 24 89/55 66 97 06/23 1700 67 21 96/58 71 96 06/23 1645 69 17 107/65 79 94 06/23 1636 36.4 71 16 102/59 73 95 Room air 06/23 1631 73 19 102/59 76 96 06/23 1615 76 14 111/55 79 95 06/23 1602 75 17 138/56 75 94 06/23 1600 Nasal 2 cannula 24 hour I O ending at 0700: 06/24 0700 06/23 1900 Intake Total 1464.00 615.00 Output Total 690 825 Balance 774.00 -210.00 Intake, IV 1464.00 375.00 Intake, Oral 240 Output, Urine 690 825 Patient 97 kg Weight Weight Bed scale Measurement Method PATIENT WEIGHT: Weight (lb): 213 Weight (oz): 13.57 Weight (kg): 97.000 Medications: Active Meds + DC'd Last 24 Hrs Aspirin (ASPIRIN) 81 MG DAILY PO Clopidogrel Bisulfate (Plavix) 75 MG DAILY PO (D A) Duloxetine HCl (CYMBALTA) 20 MG DAILY PO Isosorbide Dinitrate (ISORDIL) 60 MG DAILY PO Losartan Potassium (COZAAR) 50 MG DAILY PO Sodium Chloride (SODIUM CHLORIDE 0.9%) 500 ML DA ELADIO MISC Magnesium Sulfate (MAGNESIUM SULFATE 2GM/SWFI 50 ML) 50 ML ONCE ONE IV Atorvastatin Calcium (LIPITOR) 40 MG BEDTIME PO Gabapentin (NEURONTIN) 600 MG BID PO Insulin Glargine (Lantus/Semglee) 25 UNIT BEDTIM E SUBQ Insulin Human Lispro (HUMALOG) 0 AC HS SUBQ (DC) Metoprolol Succinate (TOPROL XL) 12.5 MG BID PO Mupirocin (BACTROBAN 2% 22 GM OINTMENT) 1 APPLIC BID NASAL Insulin Human Lispro (HUMALOG) 0 AC HS SUBQ Dextrose/Water (DEXTROSE 50% W SYRINGE) 25 ML DIR PRN IV (CKD) Dextrose/Water (DEXTROSE 50% W SYRINGE) 50 ML DIR PRN IV (CKD) Glucagon (GLUCAGON) 1 MG ASDIR PRN IM Heparin Sodium (HEPARIN 5000 UNITS/ML) 0 ASDIR P RN IV (DC) Heparin Sodium (HEPARIN 5000 UNITS/ML) 0 ASDIR P RN IV Heparin Sodium (Porcine) (HEPARIN 25,000 UNITS/ 1/2NS 500ML) 500 ML ASDIR IV (CAN) Heparin Sodium (Porcine) (HEPARIN 25,000 UNITS/ 1/2NS 500ML) 500 ML ASDIR IV (CKD) Hydrocodone Bitart/Acetaminophen (NORCO 10/325) 1 TAB Q6H PRN PRN PO Morphine Sulfate (morphine SULFATE) 4 MG Q2H PRN PRN IV Ondansetron HCl (ZOFRAN) 4 MG Q8H PRN PRN IV Sodium Chloride (SODIUM CHLORIDE 0.9%) 1,000 ML .Q10H IV Fentanyl Citrate (SUBLIMAZE) 0 .STK-MED ONE .ROU TE (DC) Heparin Sodium (HEPARIN SODIUM) 0 .STK-MED ONE . ROUTE (DC) Atropine Sulfate (ATROPINE SULFATE 0.1MG/ML SYR) 0.5 MG ASDIR PRN IV Heparin Sodium (HEPARIN 5000 UNITS/ML) 12,500 UN IT DAILY PRN PRN I- CATHETER Dextrose/Water (DEXTROSE 5% WATER) 500 ML Heparin Sodium/Dextrose (HEPARIN 25,000 UNITS/D5 W 500ML) 500 ML DAILY PRN PRN I-CATHETER Sodium Chloride (SODIUM CHLORIDE 0.9%) 1,000 ML .[id number] IV (DC) Sodium Chloride (SODIUM CHLORIDE 0.9%) 500 ML DIR PRN IV Fentanyl Citrate (SUBLIMAZE) 0 .STK-MED ONE .ROU TE (DC) Atropine Sulfate (ATROPINE SULFATE 0.1MG/ML SYR) 0 .STK-MED ONE IV (DC) Hydralazine HCl (APRESOLINE) 0 .STK-MED ONE .ROU TE (DC) Heparin Sodium (HEPARIN SODIUM) 0 .STK-MED ONE .ROUTE (DC) Diphenhydramine HCl (BENADRYL) 0 .STK-MED ONE .R OUTE (DC) Methylprednisolone Sodium Succinate (Solu-Medrol 125 MG Vial) 0 .STK-MED ONE .ROUTE (DC) Fentanyl Citrate (SUBLIMAZE) 0 .STK-MED ONE .ROU TE (DC) Midazolam HCl (VERSED) 0 .STK-MED ONE .ROUTE (DC ) Verapamil HCl (ISOPTIN) 0 .STK-MED ONE IV (DC) Heparin Sodium (HEPARIN SODIUM) 0 .STK-MED ONE . ROUTE (DC) Heparin Sodium/Sodium Chloride (HEPARIN 2,000 UN ITS/NS 1,000mL) 1,000 ML .STK-MED ONE IV (DC) Heparin Sodium/Sodium Chloride (HEPARIN 1,000 UN ITS/NS 500ML) 500 ML .STK- MED ONE IV (DC) Iopamidol (ISOVUE-370 100ML) 0 .STK-MED ONE IV ( DC) Lidocaine HCl (XYLOCAINE 1%) 0 .STK-MED ONE .ROU TE (DC) Nitroglycerin/Dextrose (NITROGLYCERIN 50,000MCG/ D5W 250ML) 250 ML .STK-MED ONE IV (DC) Physical Exam General appearance: alert, awake, oriented, no a cute distress, pleasant, conversational Neck: non-tender, no JVD Cardiovascular: CV assessment: regular rate and rhythm, pedal p ulses present Respiratory: decreased breath sounds, on oxygen, no distress Abdomen: soft, non-tender, normal bowel sounds, no distention Lower extremity: LE assessment: no edema Musculoskeletal: normal inspection 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, oriented X 3, normal speech Skin: dry Wound/incision: Location: Right groin access site with bruising Psychiatry: normal affect, normal mood Results Findings/Data: Laboratory Tests 06/24 06/24 06/23 06/23 06/23 0830 0 2013 1700 1124 Chemistry Sodium (134 - 147 mEq/L) 136 Potassium (3.4 - 5.0 mEq/L) 4.2 Chloride (100 - 108 mEq/L) 108 Carbon Dioxide (21 - 33 mEq/l) 19 L Anion Gap (0 - 20) 13 BUN (7 - 18 mg/dL) 10 Creatinine (0.6 - 1.3 mg/dL) 1.1 Glomerular Filtr Rate (90 - 95) 50.8 L Glucose (70 - 110 mg/dL) 263 H POC Glucose (70 - 110 MG/DL) 201 H 316 H 365 H 332 H Calcium (8.0 - 10.5 mg/dL) 8.2 Magnesium (1.80 - 2.40 mg/dL) 1.79 L Laboratory Tests 06/24 06/24 06/24 06/23 06/23 0738 0500 0200 2200 2055 Coagulation PTT ([place]) (25.0 - 39.5 Seconds) 115.0 H 129.9 H 45.4 H 33.3 65.5 H 06/23 06/23 06/23 06/23 06/23 1950 1745 1625 1459 1416 Coagulation PTT ([place]) (25.0 - 39.5 Seconds) 104.0 H > 200. 0 H > 200.0 H Activated Coag Time (74 - 137 267 H 255 H SEC) 06/23 06/23 06/23 06/23 1347 1328 1258 1235 Coagulation Activated Coag Time (74 - 137 SEC) 362 H 237 H 273 H 315 H Laboratory Tests 06/24 06/23 0500 1950 Hematology WBC (4.5 - 11.0 x10 3/uL) 16.1 H 11.2 H RBC (3.54 - 5.02 x10 6/uL) 3.80 3.83 Hgb (11.0 - 15.0 g/dL) 10.8 L 10.8 L Hct (33.0 - 45.0 %) 33.9 33.9 MCV (81.0 - 99.0 fL) 89.2 88.5 MCH (27.0 - 33.0 pg) 28.4 28.2 MCHC (33.0 - 37.0 g/dL) 31.9 L 31.9 L RDW (11.5 - 14.5 %) 15.7 H 15.4 H Plt Count (150 - 400 x10 3/uL) 233 241 MPV (7.0 - 9.0 fL) 9.4 H 9.6 H Neut % (Auto) (56.0 - 77.0 %) 86.4 H 89.8 H Lymph % (Auto) (14.0 - 32.0 %) 5.4 L 6.3 L [place] % (Auto) (4.8 - 9.0 %) 7.5 3.4 L Eos % (Auto) (0.3 - 3.7 %) 0.0 L 0.0 L Baso % (Auto) (0.0 - 2.0 %) 0.1 0.1 Neut # (Auto) (2.0 - 7.6 x10 3/uL) 13.91 H 10.0 8 H Lymph # (Auto) (1.0 - 3.8 x10 3/uL) 0.87 L 0.71 L [place] # (Auto) (0.1 - 0.8 x10 3/uL) 1.21 H 0.38 Eos # (Auto) (0.0 - 0.2 x10 3/uL) 0.00 0.00 Baso # (Auto) (0.0 - 0.2 x10 3/uL) 0.01 0.01 Abs Immat Gran (auto) (0.00 - 0.03 x10 3/uL) 0. 10 H 0.05 H Add Manual Diff NO NO Immature Gran % (0.0 - 2.0 %) 0.6 0.4 Nucleated RBC % (0 - 0 %) 0.0 0.0 Nucleated RBCs # (Man) (0.0 - 0.1 x10 3/uL) 0.0 0 0.00 Laboratory Tests 06/24 0500 Chemistry Magnesium (1.80 - 2.40 mg/dL) 1.79 L Results: labs reviewed, vital signs reviewed Diagnosis, Assessment Plan Plan discussed with: patient, nurse Free Text DxA P Notes Free Text DxA P Notes: 61 YO female with MHx of CAD with prior PCI/MIKHAIL to LAD (05/2021), HTN, DM, CVA, HLD who has been having angina. She was admitted electively on 06/23/21 for staged PCI to right PDA and RCA. The patient had successul PCI of the ostial PDA with MIKHAIL. However, the patient developed dissection of the proximal to mid RCA post balloon angioplasty. Im pella LVAD was inserted for stability. This morning the patient was doing well, awake and alert, no chest pain, and no SOB. Had episode of hypotension which responded to 500 ml IVF challenge. 1. Angina with known CAD 06/23/21: PCI/MIKHAIL of ostial PDA RCA dissection Impella LVAD support, wean to P4 - will DC today if hgb stable hypotensive earlier -responded to fluid challeng e NS 500 ml Systemic heparin on hold due to hyperterapeutic PTT continue DAPT, BB, statin 2. Hypertension transient episode of hypotension this morning - responded to IVF hold all antihypertensive medications for now - will resume as appropiate 3. Diabetes mellitus continue lantus and insulin sliding scale 4. Hyperlipidemia continue statin at 1440 Electronically Signed by Inga Robertson MD on at 2256 RPT #:[id number] END OF REPORT 2021-06-24 09:03:00-00:00 [facility] Cardiology Consultation REPORT#:[id number] REPORT STATUS: Signed DATE:06/24/21 TIME: 902 PATIENT: TAMY MARTINEZ UNIT #: [id number] ROOM/BED: [place] [address] : 64 AGE: 61 SEX: F ATTEND: Conrado Zeng MD ADM AUTHOR: Zoraida Felder RECREATION SUPERINTENDENT * ALL edits or amendments must be made on the [employer]/computer document * History of Present Illness HPI Requesting Clinician: Dr. Mcdonald Reason for consult: Coronary artery disease s/p attempted RCA intervention complicated by dissection requiring Impella support Chief complaint: Chest pain prior to admission HPI: 61 YO female with MHx of CAD with prior PCI/MIKHAIL to LAD (05/2021), HTN, DM, CVA, HLD who has been having angina. She was admitted electively on 06/23/21 for staged PCI to right PDA and RCA. The patient had successul PCI of the ostial PDA with MIKHAIL. However, the patient developed dissection of the proximal to mid RCA post balloon angioplasty. Im pella LVAD was inserted for stability. This morning the patient was doing well, awake and alert, no chest pain, and no SOB. Had episode of hypotension which responded to 500 ml IVF challenge. History - Adult longitudinal Past medical history: Reports: Coronary artery disease, Diabetes melli tus, Hypertension, Ischemic stroke. Denies: Atrial fibrillation, Congestive heart failure. Past surgical history: Reports: Cholecystectomy. Additional family history: Non contributory Alcohol use: Denies EtOH use Drug use: Benzodiazepines Smoking status: Smoking status for patients 13 years old or old er: Never Smoker Allergies: Coded Allergies: iodine (Intermediate, HIVES 05/10/21) Converted from Ingredient Allergy: IODINE Review of Systems Constitutional: Denies: chills, fatigue, generalized weakness. Respiratory: Denies: SOB. Cardiovascular: Denies: chest pain, edema, orthopnea, palpitatio ns, unstable angina. GI: Denies: abdominal pain, nausea, vomiting. Neuro: Denies: confusion, dizziness, weakness. Objective General VS/I O: Vital Signs: Date Time Temp Pulse Resp B/P B/P Pulse O2 O2 F low FiO2 Mean Ox Delivery Rate 06/24 0640 68 13 100 / 0630 76 26 165/63 107 100 /14 0628 71 15 175/77 110 100 /14 0615 68 15 100 04/14 0600 67 17 100 04/14 0545 67 14 137/58 93 100 /14 0530 67 18 143/67 96 100 /14 0515 66 19 153/67 96 100 /14 0500 66 12 125/58 84 100 /14 0445 66 12 130/61 88 100 04/14 0430 66 13 142/63 90 100 /14 0415 66 14 128/61 88 100 / 0401 66 16 144/61 88 99 / 0400 37.2 66 14 99 04/14 0345 66 13 134/61 88 100 04/14 0331 65 13 138/62 89 100 04/14 0330 65 15 100 04/14 0316 66 13 141/63 90 99 04/14 0315 67 13 100 04/14 0300 64 13 106/55 73 100 04/14 0245 62 15 108/56 80 99 04/14 0231 61 17 99 04/14 0230 61 20 110/56 80 99 04/14 0215 64 19 111/56 80 99 04/14 0200 66 15 133/60 87 99 04/14 0145 63 17 103/51 72 99 04/14 0130 64 12 98/50 70 99 04/14 0116 65 14 101/53 74 99 04/14 0115 63 16 100 04/14 0100 67 16 107/54 77 100 04/14 0045 66 12 102/54 76 99 04/14 0030 65 14 110/54 78 99 04/14 0020 63 12 99 04/14 0015 64 15 105/63 76 99 04/14 0000 37.3 65 13 127/58 83 98 04/ 2345 68 14 131/58 83 99 04/ 2330 71 14 102/62 77 99 04/ 2315 69 14 112/56 81 98 04/ 2300 65 16 126/60 87 98 04/ 2245 64 18 136/66 91 100 04/ 2230 63 17 132/60 86 100 04/ 2215 55 17 125/60 87 99 / 2214 54 17 127/60 87 99 / 2200 56 20 98 04/ 2145 62 16 127/65 91 98 04/ 2130 64 13 125/65 89 99 04/ 2115 61 16 113/58 80 99 04/ 2100 60 17 117/60 83 99 / 2045 59 18 109/59 81 99 /2029 63 19 104/54 76 98 /2014 63 16 108/59 79 98 04/1999 Nasal 2 cannula 041999 37.1 62 18 103/56 77 99 04/ 1945 77 21 99/58 75 99 04/ 1939 60 17 111/56 77 98 04/ 1930 61 21 99 04/ 1915 63 17 128/59 85 100 04/ 1900 60 18 121/58 83 99 04/ 1830 61 17 118/59 82 100 06/23 1800 63 24 116/57 82 96 06/23 1746 69 20 124/58 83 97 06/23 1730 70 20 136/63 90 95 06/23 1715 73 24 89/55 66 97 06/23 1700 67 21 96/58 71 96 06/23 1645 69 17 107/65 79 94 06/23 1636 36.4 71 16 102/59 73 95 Room air 06/23 1631 73 19 102/59 76 96 06/23 1615 76 14 111/55 79 95 06/23 1602 75 17 138/56 75 94 06/23 1600 Nasal 2 cannula 24 hour I O ending at 0700: 06/24 0700 06/23 1900 Intake Total 1464.00 615.00 Output Total 690 825 Balance 774.00 -210.00 Intake, IV 1464.00 375.00 Intake, Oral 240 Output, Urine 690 825 Patient 97 kg Weight Weight Bed scale Measurement Method PATIENT WEIGHT: Weight (lb): 213 Weight (oz): 13.57 Weight (kg): 97.000 Medications: Active Meds + DC'd Last 24 Hrs Aspirin (ASPIRIN) 81 MG DAILY PO Clopidogrel Bisulfate (Plavix) 75 MG DAILY PO (D A) Duloxetine HCl (CYMBALTA) 20 MG DAILY PO Isosorbide Dinitrate (ISORDIL) 60 MG DAILY PO Losartan Potassium (COZAAR) 50 MG DAILY PO Sodium Chloride (SODIUM CHLORIDE 0.9%) 500 ML DA ELADIO MISC Magnesium Sulfate (MAGNESIUM SULFATE 2GM/SWFI 50 ML) 50 ML ONCE ONE IV Atorvastatin Calcium (LIPITOR) 40 MG BEDTIME PO Gabapentin (NEURONTIN) 600 MG BID PO Insulin Glargine (Lantus/Semglee) 25 UNIT BEDTI ME SUBQ Insulin Human Lispro (HUMALOG) 0 AC HS SUBQ (DC) Metoprolol Succinate (TOPROL XL) 12.5 MG BID PO Mupirocin (BACTROBAN 2% 22 GM OINTMENT) 1 APPLIC BID NASAL Insulin Human Lispro (HUMALOG) 0 AC HS SUBQ Dextrose/Water (DEXTROSE 50% W SYRINGE) 25 ML DIR PRN IV (CKD) Dextrose/Water (DEXTROSE 50% W SYRINGE) 50 ML DIR PRN IV (CKD) Glucagon (GLUCAGON) 1 MG ASDIR PRN IM Heparin Sodium (HEPARIN 5000 UNITS/ML) 0 ASDIR P RN IV (DC) Heparin Sodium (HEPARIN 5000 UNITS/ML) 0 ASDIR P RN IV Heparin Sodium (Porcine) (HEPARIN 25,000 UNITS/ 1/2NS 500ML) 500 ML ASDIR IV (CAN) Heparin Sodium (Porcine) (HEPARIN 25,000 UNITS/ 1/2NS 500ML) 500 ML ASDIR IV (CKD) Hydrocodone Bitart/Acetaminophen (NORCO 10/325) 1 TAB Q6H PRN PRN PO Morphine Sulfate (morphine SULFATE) 4 MG Q2H PRN PRN IV Ondansetron HCl (ZOFRAN) 4 MG Q8H PRN PRN IV Sodium Chloride (SODIUM CHLORIDE 0.9%) 1,000 ML .Q10H IV Fentanyl Citrate (SUBLIMAZE) 0 .STK-MED ONE .ROU TE (DC) Heparin Sodium (HEPARIN SODIUM) 0 .STK-MED ONE . ROUTE (DC) Atropine Sulfate (ATROPINE SULFATE 0.1MG/ML SYR) 0.5 MG ASDIR PRN IV Heparin Sodium (HEPARIN 5000 UNITS/ML) 12,500 UN IT DAILY PRN PRN I- CATHETER Dextrose/Water (DEXTROSE 5% WATER) 500 ML Heparin Sodium/Dextrose (HEPARIN 25,000 UNITS/D5 W 500ML) 500 ML DAILY PRN PRN I-CATHETER Sodium Chloride (SODIUM CHLORIDE 0.9%) 1,000 ML .[id number] IV (DC) Sodium Chloride (SODIUM CHLORIDE 0.9%) 500 ML DIR PRN IV Fentanyl Citrate (SUBLIMAZE) 0 .STK-MED ONE .ROU TE (DC) Atropine Sulfate (ATROPINE SULFATE 0.1MG/ML SYR) 0 .STK-MED ONE IV (DC) Hydralazine HCl (APRESOLINE) 0 .STK-MED ONE .ROU TE (DC) Heparin Sodium (HEPARIN SODIUM) 0 .STK-MED ONE . ROUTE (DC) Diphenhydramine HCl (BENADRYL) 0 .STK-MED ONE .R OUTE (DC) Methylprednisolone Sodium Succinate (Solu-Medrol 125 MG Vial) 0 .STK-MED ONE .ROUTE (DC) Fentanyl Citrate (SUBLIMAZE) 0 .STK-MED ONE .ROU TE (DC) Midazolam HCl (VERSED) 0 .STK-MED ONE .ROUTE (DC ) Verapamil HCl (ISOPTIN) 0 .STK-MED ONE IV (DC) Heparin Sodium (HEPARIN SODIUM) 0 .STK-MED ONE . ROUTE (DC) Heparin Sodium/Sodium Chloride (HEPARIN 2,000 UN ITS/NS 1,000mL) 1,000 ML .STK-MED ONE IV (DC) Heparin Sodium/Sodium Chloride (HEPARIN 1,000 UN ITS/NS 500ML) 500 ML .STK- MED ONE IV (DC) Iopamidol (ISOVUE-370 100ML) 0 .STK-MED ONE IV ( DC) Lidocaine HCl (XYLOCAINE 1%) 0 .STK-MED ONE .ROU TE (DC) Nitroglycerin/Dextrose (NITROGLYCERIN 50,000MCG/ D5W 250ML) 250 ML .STK-MED ONE IV (DC) Physical Exam General appearance: alert, awake, oriented, no a cute distress, pleasant, conversational Neck: non-tender, no JVD Cardiovascular: CV assessment: regular rate and rhythm, pedal p ulses present Respiratory: decreased breath sounds, on oxygen, no distress Abdomen: soft, non-tender, normal bowel sounds, no distention Lower extremity: LE assessment: no edema Musculoskeletal: normal inspection 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, oriented X 3, normal speech Skin: dry Wound/incision: Location: Right groin access site with bruising Psychiatry: normal affect, normal mood Results Findings/Data: Laboratory Tests 06/24 06/24 06/23 06/23 06/23 0830 0500 2013 170 1124 Chemistry Sodium (134 - 147 mEq/L) 136 Potassium (3.4 - 5.0 mEq/L) 4.2 Chloride (100 - 108 mEq/L) 108 Carbon Dioxide (21 - 33 mEq/l) 19 L Anion Gap (0 - 20) 13 BUN (7 - 18 mg/dL) 10 Creatinine (0.6 - 1.3 mg/dL) 1.1 Glomerular Filtr Rate (90 - 95) 50.8 L Glucose (70 - 110 mg/dL) 263 H POC Glucose (70 - 110 MG/DL) 201 H 316 H 365 H 332 H Calcium (8.0 - 10.5 mg/dL) 8.2 Magnesium (1.80 - 2.40 mg/dL) 1.79 L Laboratory Tests 06/24 06/24 06/24 06/23 06/23 0738 0500 0200 2200 2055 Coagulation PTT (Samuel) (25.0 - 39.5 Seconds) 115.0 H 129.9 H 45.4 H 33.3 65.5 H 06/23 06/23 06/23 06/23 06/23 1950 1745 1625 1459 1416 Coagulation PTT (Samuel) (25.0 - 39.5 Seconds) 104.0 H > 200. 0 H > 200.0 H Activated Coag Time (74 - 137 267 H 255 H SEC) 06/23 06/23 06/23 06/23 1347 1328 1258 1235 Coagulation Activated Coag Time (74 - 137 SEC) 362 H 237 H 273 H 315 H Laboratory Tests 06/24 06/23 0500 1950 Hematology WBC (4.5 - 11.0 x10 3/uL) 16.1 H 11.2 H RBC (3.54 - 5.02 x10 6/uL) 3.80 3.83 Hgb (11.0 - 15.0 g/dL) 10.8 L 10.8 L Hct (33.0 - 45.0 %) 33.9 33.9 MCV (81.0 - 99.0 fL) 89.2 88.5 MCH (27.0 - 33.0 pg) 28.4 28.2 MCHC (33.0 - 37.0 g/dL) 31.9 L 31.9 L RDW (11.5 - 14.5 %) 15.7 H 15.4 H Plt Count (150 - 400 x10 3/uL) 233 241 MPV (7.0 - 9.0 fL) 9.4 H 9.6 H Neut % (Auto) (56.0 - 77.0 %) 86.4 H 89.8 H Lymph % (Auto) (14.0 - 32.0 %) 5.4 L 6.3 L [place] % (Auto) (4.8 - 9.0 %) 7.5 3.4 L Eos % (Auto) (0.3 - 3.7 %) 0.0 L 0.0 L Baso % (Auto) (0.0 - 2.0 %) 0.1 0.1 Neut # (Auto) (2.0 - 7.6 x10 3/uL) 13.91 H 10.0 8 H Lymph # (Auto) (1.0 - 3.8 x10 3/uL) 0.87 L 0.71 L [place] # (Auto) (0.1 - 0.8 x10 3/uL) 1.21 H 0.38 Eos # (Auto) (0.0 - 0.2 x10 3/uL) 0.00 0.00 Baso # (Auto) (0.0 - 0.2 x10 3/uL) 0.01 0.01 Abs Immat Gran (auto) (0.00 - 0.03 x10 3/uL) 0. 10 H 0.05 H Add Manual Diff NO NO Immature Gran % (0.0 - 2.0 %) 0.6 0.4 Nucleated RBC % (0 - 0 %) 0.0 0.0 Nucleated RBCs # (Man) (0.0 - 0.1 x10 3/uL) 0.0 0 0.00 Laboratory Tests 06/24 0500 Chemistry Magnesium (1.80 - 2.40 mg/dL) 1.79 L Results: labs reviewed, vital signs reviewed Diagnosis, Assessment Plan Plan discussed with: patient, nurse Free Text DxA P Notes Free Text DxA P Notes: 61 YO female with MHx of CAD with prior PCI/MIKHAIL to LAD (05/2021), HTN, DM, CVA, HLD who has been having angina. She was admitted electively on 06/23/21 for staged PCI to right PDA and RCA. The patient had successul PCI of the ostial PDA with MIKHAIL. However, the patient developed dissection of the proximal to mid RCA post balloon angioplasty. Im pella LVAD was inserted for stability. This morning the patient was doing well, awake and alert, no chest pain, and no SOB. Had episode of hypotension which responded to 500 ml IVF challenge. 1. Angina with known CAD 06/23/21: PCI/MIKHAIL of ostial PDA RCA dissection Impella LVAD support, wean to P4 - will DC today if hgb stable hypotensive earlier -responded to fluid challeng e NS 500 ml Systemic heparin on hold due to hyperterapeutic PTT continue DAPT, BB, statin 2. Hypertension transient episode of hypotension this morning - responded to IVF hold all antihypertensive medications for now - will resume as appropiate 3. Diabetes mellitus continue lantus and insulin sliding scale 4. Hyperlipidemia continue statin at 1440 [facility] #:[id number] END OF REPORT 2021-06-23 15:18:00-00:00 [id number] [address] PATIENT NAME: TAMY MARTINEZ ADMIT DATE: ACCOUNT NO: [id number] ROOM NO: 3349 AGE: 61 REPORT TYPE: CARDIAC CATHETERIZATION REPORT SEX: F ADMITTING PHYSICIAN:Alejandra Zeng MD ATTENDING PHYSICIAN:Alejandra Zeng MD PROCEDURE DATE: 06/23/2021 PROCEDURES PERFORMED: 1. PCI of the severe ostial right PDA us ing a 2.5 x 60 mm Synergy drug-eluting stent. 2. Impella left ventricular assist device insert ion. INDICATIONS: Typical angina with known severe ri ght PDA and right coronary artery stenosis. ACCESS: Right femoral artery 14-Irish Impella w as left in place. COMPLICATIONS: Dissection of the proximal to mid RCA and were not able to recanalize the true lumen. DESCRIPTION OF PROCEDURE: After risks, benefits, and alternatives were explained, the patient agreed to proceed and sig adán informed consent. The patient was brought into the cardiac catheteriza tion laboratory, prepped and draped in usual sterile fashion. Then, we access ed the right femoral artery using micropuncture kit, fluoroscopy and ultraso und guidance and placed a 6-Irish sheath and then too k a 6-Irish JR4 guide into the aortic root, engaged the RCA, had significant drop in pressure at the moment we engaged it, so we sent a wire through to the distal PDA and then d isengaged from the ostium. Subsequently, dilated the PDA lesion and then de livered a 2.5 x 60 mm Synergy drug-eluting stent successfu lly and then dilated the whole RCA proximal to mid, has severe disease including the ostium and then shortly after that the patient had a cough that dislodge the guide and dislodge d the wires out of the RCA. Subsequently, we attempted m ultiple times to rewire the RCA; however, due to the dissection post-balloon angioplasty, was not abl e to get the wire through. Multiple attempts were done, different wires and discussed with colleagues attempted as well. Dr. Miguel took it into the lumen; however, was not successful. At this point, angiographically we w ere able to create a channel through the dissection and that was given flow t hrough the RCA all the way distally. As such, decided to abort the procedure and inserted the Impella for stability, upgraded the 6-Fr ench sheath to the 14-Irish Impella sheath and took Impella into the LV and below. CP was started ma intaining good hemodynamics with main perfusing pressure more than 17. The p atient was chest pain free at that time. At this point, we decided to keep the Impella for 24 to 48 hours and then we will assess the patient clinically. PLAN: To wait for this dissection to heal and br ing her back at a later time and reassess. Discussed the case with CV surgery as well. The patient will be admitted to the CCU for close monitoring and fam eladio were updated. PATIENT NAME: JETHRO MARTINEZANGEL RUBIN ACCOUNT #: [id number] Dictated By: Dany Mcdonald MD WT: CATH:CARLOTA/CHRISTINA/NTS Conf#: [id number]/DID#: [id number] Authenticated by Dany Mcdonald MD On 07/14/2021 09:19:24 AM Electronically Signed by Dany Mcdonald MD on at 0919 PATIENT NAME: TAMY MARTINEZ CARYN ACCOUNT #: [id number] 2021-06-21 13:17:00-00:00 [id number] [place] [address] PATIENT NAME: TAMY MARTINEZUGHN ADMIT DATE: ACCOUNT NO: [id number] ROOM NO: AGE: 61 REPORT TYPE: eELECTROCARDIOGRAM REPORT SEX: F ADMITTING PHYSICIAN: ATTENDING PHYSICIAN:Dany Mcdonald MD Order: [id number] Test Reason : PREOP Test Date/Time Stamp: MonJun 21 2021 13:17:24 Blood Pressure : / mmHG Vent. Rate : 066 BPM Atrial Rate : 066 BPM P-R Int : 154 ms QRS Dur : 086 ms QT Int : 416 ms P-R-T Axes : 058 015 065 degree s QTc Int : 436 ms Normal sinus rhythm RSR' or QR pattern in V1 suggests right ventricu lar conduction delay Abnormal ECG PRE_OP Confirmed by LINDA FRIAS MD ([id number]) on 06/22/19 22 1:23:10 PM Referred By: Dany Mcdonald Confirmed by:LINDA TERRY MD at 1323 PATIENT NAME: TAMY MARTINEZ ACCOUNT #: [id number] 2021-05-13 18:07:00-00:00 [id number] [place] [address] PATIENT NAME: TAMY MARTINEZ ADMIT DATE: ACCOUNT NO: [id number] [place]OM [place] [facility] AGE: 61 REPORT TYPE: eECHOCARDIOGRAM REPORT SEX: F ADMITTING PHYSICIAN:Inga Robertson MD ATTENDING PHYSICIAN:Inga Robretson MD *[place] [address] Limited Transthoracic Echocardiogram Patient: aTmy Martinez Study Date: 05/13/2021 BP: 99 / 60 Location: [facility] URN: [id number] : 1960 Age: 61 Height: 60 in / 152.4 cm Gender: F Weight: 206 .6 lb / 93.9 kg BMI/BSA: 40.4 kg/m 2 / 2.05 m 2 *Ordering Physician: * Zoraida Felder [facility] dope heater *Interpreting Physician: * Inga Robertson MD *Maintenance Leader: * Jeana Epstein Indications: R/O PEROCARDIAL EFUSSION. Study data: Transthoracic echocardiogram, limite d study. Procedure: Transthoracic echocardiography was performed. Im age quality was fair. Limited 2D and limited spectral Doppler. Locatio n: Bedside. Patient status: Inpatient. Patient room number: 3360. [facility] status: Stat. Findings Left ventricle: The cavity size is normal. Wall thickness is normal. Systolic function is normal. The estimated eject ion fraction is 60-64%. Wall motion is normal; there are no regional wal l motion abnormalities. Aorta: Aortic root: The aortic root is normal in size. Mitral valve: The valve is structurally normal. There is no evidence of stenosis. There is mild regurgitatio n. PATIENT NAME: TAMY MARTINEZ ACCOUNT #: [id number] Pericardium: There is no pericardial effusion. Systemic veins: Inferior vena cava: The vessel is normal in size . The respirophasic diameter changes are in the normal range (= 50%) . Measurements Left ventricle Value 05/12/2021 Ref IVORY, LAX 4.7 cm 4.9 3.8 - 5.2 ESD, LAX 2.9 cm 3.3 2.2 - 3.5 ESD/bsa, LAX 1.4 cm/m 2 1.3 1.3 - 2.1 FS, LAX 37 % 33 27 - 45 PW, ED 1.0 cm 1.0 0.6 - 0.9 IVS/PW, ED 1.13 0.83 ------ EF 67 % 61 54 - 74 E', lat wesley, 9.2 cm/sec >=10.0 TDI E/e', lat 10 ------ wesley, TDI E', med wesley, 6.4 cm/sec >=7.0 TDI E/e', med 14 ------ wesley, TDI E', avg, TDI 7.8 cm/sec ------ E/e', avg, 12 <=14 TDI Ventricular septum Value 05/12/2021 Ref IVS, ED 1.1 cm 0.8 0.6 - 0.9 Right ventricle Value 05/12/2021 Ref IVORY, LAX 3.2 cm ------ S' lateral 26.1 cm/sec 6.0 - 13.4 Left atrium Value 05/12/2021 Ref AP dim, ES 3.7 cm 3.8 2.7 - MM 3.8 LA/Ao root 1.33 1.52 ------ ratio, MM Aortic valve Value 05/12/2021 Ref Leaflet sep, 1.92 cm 1.47 ------ MM Mitral valve Value 05/12/2021 Ref PATIENT NAME: TAMY MARTINEZ ACCOUNT #: [id number] Peak E 0.08 m/sec 1.03 ------ Peak A 0.77 m/sec 0.9 ------ Mean v, D 0.75 m/sec 0.72 ------ VTI leaflet 33.4 cm 33.2 ------ coapt Decel time 229 ms 181 ------ PHT 66 ms 64 ------ Mean grad, D 2.5 mm Hg 2.5 ------ Peak grad, D 5.2 mm Hg 7.5 ------ Peak E/A 1.2 1.14 ------ ratio MVA, PHT 3.3 cm 2 3.4 ------ Aortic root Value 05/12/2021 Ref Root diam, 2.77 cm 2.48 ------ ED MM Conclusions Summary: 1. Left ventricle: The cavity size is normal. Wa ll thickness is normal. Systolic function is normal. The estimated ejec tion fraction is 60-64%. Wall motion is normal; there are no reg ional wall motion abnormalities. 2. Pericardium, extracardiac: There is no perica rdial effusion. 3. Inferior vena cava: The vessel is normal in s ize. The respirophasic diameter changes are in the normal range (= 50% ). Prepared and electronically signed by Inga Robertson MD 05/13/2021 18:07 Electronically Signed by Inga Robertson MD on 0 05/13/21 at 1807 PATIENT NAME: TAMY MARTINEZ ACCOUNT #: [id number] 2021-05-13 14:22:00-00:00 [id number] [address] PATIENT NAME: TAMY MARTINEZ ADMIT DATE: ACCOUNT NO: [id number] ROOM NO: G.3360 AGE: 61 REPORT TYPE: eECHOCARDIOGRAM REPORT SEX: F ADMITTING PHYSICIAN:Inga Robertson MD ATTENDING PHYSICIAN:Inga Robertson MD *[address] [place] [address] Limited Transthoracic Echocardiogram Patient: Tamy Martinez Study Date: 05/12/2021 BP: 118 / 62 Location: [facility] URN: [id number] : 1960 Age: 61 Height: 60 in / 152.4 cm Gender: F Weight: 296 .4 lb / 134.7 kg BMI/BSA: 58 kg/m 2 / 2.49 m 2 *Ordering Physician: * Dany Mcdonald *Interpreting Physician: * Inga Robertson MD *Maintenance Leader: * Angy Tesfaye Indications: Hypotension. Study data: Transthoracic echocardiogram, limite d study. Procedure: Transthoracic echocardiography was performed. Im age quality was adequate. Limited 2D and limited spectral Dopple r. Location: [facility]. Patient status: Outpatient. Patient room number: 19. Study status: Routine. Rhythm: Normal sinus rhythm. Findings Left ventricle: The cavity size is normal. Wall thickness is normal. Systolic function is normal. The estimated eject ion fraction is 55-60%. Wall motion is normal; there are no regional wal l motion abnormalities. Left ventricular diastolic function parameters a re normal for the patient's age. PATIENT NAME: TAMY MARTINEZ ACCOUNT #: [id number] Right ventricle: Estimated TAPSE is 2.8 cm. The cavity size is normal. Systolic function is normal. Left atrium: The atrium is normal in size. Right atrium: The atrium is normal in size. Aorta: Aortic root: The aortic root is normal in size. Aortic valve: The valve is structurally normal. The valve is trileaflet. There is no evidence of stenosis. Th ere is no regurgitation. Mitral valve: The valve is structurally normal. There is no evidence of stenosis. There is trivial regurgita tion. Tricuspid valve: Estimated right ventricle systo lic pressure is 34.40 mmHg. The valve is structurally normal. There is mild-moderate regurgitation. Pulmonic valve: The valve is structurally normal . There is no regurgitation. Pericardium: There is no pericardial effusion. Pulmonary arteries: The main pulmonary artery is normal-sized. Systemic veins: Inferior vena cava: The vessel is normal in size . Measurements Left ventricle Value Ref IVORY, LAX 4.9 cm 3.8 - 5.2 ESD, LAX 3.3 cm 2.2 - 3.5 ESD/bsa, LAX 1.3 cm/m 2 1.3 - 2.1 FS, LAX 33 % 27 - 45 ESD/bsa major 2.2 cm/m 2 --------- ax, A4C IVORY/bsa minor 2.2 cm/m 2 --------- ax, A4C IVORY major ax, 6.6 cm --------- A2C ESD major ax, 5.4 cm --------- A2C IVORY/bsa major 2.7 cm/m 2 --------- ax, A2C ESD/bsa major 2.2 cm/m 2 --------- ax, A2C PW, ED 1.0 cm 0.6 - 0.9 IVS/PW, ED 0.83 --------- EF 61 % 54 - 74 LVOT Value Ref Diam, S 2.03 cm --------- Area 3.2 cm 2 --------- Peak susanne, S 1.09 m/sec --------- Mean susanne, S 0.74 m/sec --------- VTI, S 27.3 cm --------- Peak grad, S 5 mm Hg --------- Mean grad, S 2 mm Hg --------- SV 88 ml --------- PATIENT NAME: TAMY MARTINEZ ACCOUNT #: [id number] Qs 5.74 L/min --------- Qs/bsa 2.3 L/(min-m 2) --------- SV/bsa 36 ml/m 2 --------- Ventricular septum Value Ref IVS, ED 0.8 cm 0.6 - 0.9 Left atrium Value Ref AP dim, ES 3.14 cm 2.70 - 3.80 Vol/bsa, ES, 28 ml/m 2 11 - 40 1-p A4C Vol, ES, 2-p 77 ml --------- Vol/bsa, ES, 31 ml/m 2 16 - 34 2-p Vol/bsa, ES, 29 ml/m 2 16 - 34 A/L AP dim, ES MM 3.8 cm 2.7 - 3.8 LA/Ao root 1.52 --------- ratio, MM Aortic valve Value Ref Leaflet sep, MM 1.47 cm --------- Peak v, S 1.39 m/sec --------- Mean v, S 1 m/sec --------- VTI, S 30.7 cm --------- Mean grad, S 4.3 mm Hg --------- Peak grad, S 7.7 mm Hg --------- LVOT/AV, VTI 0.89 --------- ratio OLGA, VTI 2.88 cm 2 --------- LVOT/AV, Vpeak 0.79 --------- ratio OLGA, Vmax 2.55 cm 2 --------- Mitral valve Value Ref Peak E 1.03 m/sec --------- Peak A 0.9 m/sec --------- Mean v, D 0.72 m/sec --------- VTI leaflet 33.2 cm --------- coapt Decel time 181 ms --------- PHT 64 ms --------- Mean grad, D 2.5 mm Hg --------- Peak grad, D 7.5 mm Hg --------- Peak E/A ratio 1.14 --------- MVA, PHT 3.4 cm 2 --------- Pulmonic valve Value Ref IN v, ED 0.65 m/sec --------- Tricuspid valve Value Ref TR peak v 2.47 m/sec <=2.8 Peak RV-RA 24 mm Hg --------- PATIENT NAME: TAMY MARTINEZ ACCOUNT #: [id number] grad, S Aortic root Value Ref Root diam, ED 2.48 cm --------- MM Conclusions Summary: 1. Left ventricle: The cavity size is normal. Wa ll thickness is normal. Systolic function is normal. The estimated ejec tion fraction is 55-60%. Wall motion is normal; there are no reg ional wall motion abnormalities. Left ventricular diastolic funct ion parameters are normal for the patient's age. 2. Mitral valve: There is trivial regurgitation. 3. Tricuspid valve: Estimated right ventricle sy stolic pressure is 34.40 mmHg. There is mild-moderate regurgitation. 4. Pericardium, extracardiac: There is no perica rdial effusion. Prepared and electronically signed by Inga Robertson MD 05/13/2021 14:22 Electronically Signed by Inga Robertson MD on 0 05/13/21 at 1422 PATIENT NAME: TAMY MARTINEZ ACCOUNT #: [id number] 2021-05-13 09:26:00-00:00 [facility] REPORT#:[id number] REPORT STATUS: Signed DATE:05/13/21 TIME: 925 PATIENT: TAMY MARTINEZ UNIT #: [id number] ROOM/BED: [place] [address] : [birth year] AGE: 61 SEX: F ATTEND: Nicolle Robertson MD ADM AUTHOR: Zoraida Felder RECREATION SUPERINTENDENT * ALL edits or amendments must be made on the [employer] document * See Addendum Subjective Patient reports: Yes: chest pain. Objective General VS/I O: 24 hour I O ending at 0700: 05/13 0700 05/12 1900 Intake Total 200 Output Total Balance 200 Intake, Oral 200 Number Voids 1 Vital Signs: Date Time Temp Pulse Resp B/P B/P Pulse O2 O2 F low FiO2 Mean Ox Delivery Rate 05/13 732 36.8 66 18 148/79 101.9 98 Room air 05/13 0506 36.6 73 20 129/75 93.1 100 Room air 05/13 0006 36.4 78 20 132/58 0.0 96 Room air 05/12 2009 36.7 74 18 134/62 0.0 96 Room air 05/12 0942 36.6 70 18 187/77 100 Room air PATIENT WEIGHT: Weight (lb): 207 Weight (oz): 3.75 Weight (kg): 94.000 Medications: Active Meds + DC'd Last 24 Hrs Aspirin (ASPIRIN) 81 MG DAILY PO Clopidogrel Bisulfate (Plavix) 75 MG DAILY PO Duloxetine HCl (CYMBALTA) 20 MG DAILY PO Isosorbide Dinitrate (ISORDIL) 60 MG DAILY PO Losartan Potassium (COZAAR) 50 MG DAILY PO Atorvastatin Calcium (LIPITOR) 40 MG BEDTIME PO Gabapentin (NEURONTIN) 600 MG BID PO Insulin Human Lispro (HUMALOG) 0 AC HS SUBQ Metoprolol Succinate (TOPROL XL) 12.5 MG BID PO Dextrose/Water (DEXTROSE 50% W SYRINGE) 25 ML DIR PRN IV (CKD) Dextrose/Water (DEXTROSE 50% W SYRINGE) 50 ML DIR PRN IV (CKD) Diphenhydramine HCl (BENADRYL) 12.5 MG ONCE ONE PO (DC) Famotidine (PEPCID) 20 MG ONCE ONE IV (DC) Glucagon (GLUCAGON) 1 MG ASDIR PRN IM Methylprednisolone Sodium Succinate (Solu-Medrol 125 MG Vial) 125 MG ONCE ONE IV (DC) Hydrocodone Bitart/Acetaminophen (NORCO 10/325) 0 .STK-MED ONE PO (DC) Atropine Sulfate (ATROPINE SULFATE 0.1MG/ML SYR) 0.5 MG ASDIR PRN IV Insulin Aspart (NovoLOG) 1 UNIT ASDIR SUBQ (PEND ) Methotrexate (METHOTREXATE) 2.5 MG Q7D PO (PEND) Sodium Chloride (SODIUM CHLORIDE 0.9%) 1,000 ML .[id number] ONE IV (DC) Sodium Chloride (SODIUM CHLORIDE 0.9%) 500 ML DIR PRN IV Hydrocodone Bitart/Acetaminophen (NORCO 10/325) 1 TAB Q6H PRN PRN PO Diphenhydramine HCl (BENADRYL) 0 .STK-MED ONE .R OUTE (DC) Hydralazine HCl (APRESOLINE) 0 .STK-MED ONE .RO [place]AN[place] (DC) Clopidogrel Bisulfate (CLOPIDOGREL BISULFATE) 0 .STK-MED ONE .ROUTE (DC) Adenosine (ADENOSCAN) 0 .STK-MED ONE IV (DC) Sodium Chloride (SODIUM CHLORIDE 0.9%) 50 ML .ST K-MED ONE IV (DC) Fentanyl Citrate (SUBLIMAZE) 0 .STK-MED ONE .ROU TE (DC) Midazolam HCl (VERSED) 0 .STK-MED ONE .ROUTE (DC ) Diphenhydramine HCl (BENADRYL) 0 .STK-MED ONE .R OUTE (DC) Methylprednisolone Sodium Succinate (Solu-Medrol 125 MG Vial) 0 .STK-MED ONE .ROUTE (DC) Heparin Sodium/Sodium Chloride (HEPARIN 1,000 UN ITS/NS 500ML) 1,500 ML .STK- MED ONE IV (DC) Nitroglycerin/Dextrose (NITROGLYCERIN 50,000MCG/ D5W 250ML) 250 ML .STK-MED ONE IV (DC) Verapamil HCl (ISOPTIN) 0 .STK-MED ONE IV (DC) Heparin Sodium (HEPARIN SODIUM) 0 .STK-MED ONE . ROUTE (DC) Lidocaine HCl (LIDOCAINE HCL/PF) 0 .STK-MED ONE .ROUTE (DC) Aspirin (ASPIRIN) 0 .STK-MED ONE PO (DC) Clopidogrel Bisulfate (Plavix) 0 .STK-MED ONE PO (DC) Physical Exam General appearance: alert, awake, oriented, no a cute distress Cardiovascular: CV assessment: regular rate and rhythm, BP puls es = bilaterally, normal heart sounds, pedal pulses present Respiratory: clear to auscultation, no distress Abdomen: soft, non-tender, normal bowel sounds, no distention Genitourinary: no flank pain, no hilliard Lower extremity: LE assessment: no calf tenderness, no edema Musculoskeletal: normal inspection 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, oriented X 3, normal speech Skin: dry, intact, normal color Wound/incision: Location: groin access stable Psychiatry: normal affect, normal judgment/insig ht, normal mood Results Findings/Data: Laboratory Tests 05/13 05/13 05/12 05/12 05/12 0752 0420 2020 1242 0941 Chemistry Sodium (134 - 147 mEq/L) 142 Potassium (3.4 - 5.0 mEq/L) 4.9 Chloride (100 - 108 mEq/L) 108 Carbon Dioxide (21 - 33 mEq/l) 24 Anion Gap (0 - 20) 14 BUN (7 - 18 mg/dL) 16 Creatinine (0.6 - 1.3 mg/dL) 1.0 Glomerular Filtr Rate (90 - 95) 56.7 L Glucose (70 - 110 mg/dL) 243 H POC Glucose (70 - 110 MG/DL) 209 H 339 H 150 H 147 H Calcium (8.0 - 10.5 mg/dL) 9.2 Laboratory Tests 0305/12 1554 1457 1344 1157 1121 Coagulation Activated Coag Time (74 - 137 SEC) 154 H 178 H 207 H 261 H 261 H 05/12 1050 Coagulation Activated Coag Time (74 - 137 SEC) 321 H Laboratory Tests 05/13 0420 Hematology WBC (4.5 - 11.0 x10 3/uL) 12.0 H RBC (3.54 - 5.02 x10 6/uL) 4.11 Hgb (11.0 - 15.0 g/dL) 11.5 Hct (33.0 - 45.0 %) 35.6 MCV (81.0 - 99.0 fL) 86.6 MCH (27.0 - 33.0 pg) 28.0 MCHC (33.0 - 37.0 g/dL) 32.3 L RDW (11.5 - 14.5 %) 15.7 H Plt Count (150 - 400 x10 3/uL) 260 MPV (7.0 - 9.0 fL) 9.5 H Neut % (Auto) (56.0 - 77.0 %) 83.0 H Lymph % (Auto) (14.0 - 32.0 %) 9.7 L [place] % (Auto) (4.8 - 9.0 %) 6.9 Eos % (Auto) (0.3 - 3.7 %) 0.0 L Baso % (Auto) (0.0 - 2.0 %) 0.1 Neut # (Auto) (2.0 - 7.6 x10 3/uL) 9.92 H Lymph # (Auto) (1.0 - 3.8 x10 3/uL) 1.16 [place] # (Auto) (0.1 - 0.8 x10 3/uL) 0.82 H Eos # (Auto) (0.0 - 0.2 x10 3/uL) 0.00 Baso # (Auto) (0.0 - 0.2 x10 3/uL) 0.01 Abs Immat Gran (auto) (0.00 - 0.03 x10 3/uL) 0. 04 H Add Manual Diff NO Immature Gran % (0.0 - 2.0 %) 0.3 Nucleated RBC % (0 - 0 %) 0.0 Nucleated RBCs # (Man) (0.0 - 0.1 x10 3/uL) 0.0 0 EKG Interpretation: normal sinus rhythm Telemetry Interpretation: sinus rhythm Diagnosis, Assessment Plan Problem List/A P: 1. Coronary artery disease 2. Diabetes mellitus 3. Hypertension 4. Rheumatoid arthritis Plan discussed with: patient, daughter, nurse Free Text DxA P Notes Free Text DxA P Notes: 61 YO Female with PMHx of CAD with prior PCI, hypertension, diabetes mellitus, CVA, rheumatoid arthritis who was juana t in electively for staged PCI to LAD. She underwent succesful PCI of the severe proximal LAD using distal to proximal 2.75 x 24 mm Synergy drug-eluting stent overlapp ed with a 3.5 x 24 mm Synergy drug-eluting stent and then overlapped proximally to the ostium of the LAD using a 3.5 x 12 mm Synergy drug-eluting stent. The patient has i odine allergy and had some shortness of breath and sens ation of throat closing during the procedure. She is currently doing better. No signs of respiratory distress, no stridor, or wheezing. She is maintaining her aiway. She will be admitted to CCU for observation. Gently IV hydration is initited. An ticipate discharge in the morning if stable. Continue Plavix, baby ASA, statin. We will hold betablocker as she is bradycadic with HR in the 50s. Right groin puncture soft, no hematoma or bleeding. 1. CAD s/p PCI with MIKHAIL to LAD continue Plavix, baby ASA, statin, nitrates bradycardia resolved - resume BB c/o substernal CP, non radiating, sharp, last for few seconds, associated with flushing of the face. EKG normal. Will get 2 set s of troponin and will get limited echo. If stable, possibly DC home later this afternoon. 2. Hypertension BP stable continue losartan and BB 3. Iodine allergy monitor for resp distress stable on RA 4. Diabetes mellitus patient use Tresiba but NF here continue insulin sliding scale at 1232 Electronically Signed by Inga Robertson MD on at 0755 Addendum 1: 05/13/21 1656 by Zoraida Felder Atypical chest pain. Troponins 1583 foll owed by 1599. These troponin elevation is likely related to the procedure yesterday. Elle vanessalisandra echo reviewed and it's unremarkable, normal EF, no pericardial effusion . Okay to discharge home and follow-up with Dr. Mcdonald next week. at 1700 RPT #:[id number] END OF REPORT 2021-05-13 08:03:00-00:00 [id number] [place] [address] PATIENT NAME: TAMY MARTINEZ ADMIT DATE: ACCOUNT NO: [id number] [place] [facility] [place]GE: 61 REPORT TYPE: eELECTROCARDIOGRAM REPORT SEX: F ADMITTING PHYSICIAN:Inga Robertson MD ATTENDING PHYSICIAN:Inga Robertson MD Order: [id number] Test Reason : POST PCI Test Date/Time Stamp: MonMay 13 2021 08:03:27 Blood Pressure : / mmHG Vent. Rate : 072 BPM Atrial Rate : 072 BPM P-R Int : 152 ms QRS Dur : 084 ms QT Int : 408 ms P-R-T Axes : 056 019 025 degree s QTc Int : 446 ms Normal sinus rhythm Normal ECG When compared with ECG of 12-MAY-2021 12:29, No significant change was found Confirmed by MD ROBERTSON MOLHAM ([id number]) on 2021 9:37:22 AM Referred By: Dany Mcdonald Confirmed by:INGA LEVI MD Electronically Signed by Inga Robertson MD on 0 05/23/21 at 0937 PATIENT NAME: TAMY MARTINEZ ACCOUNT #: [id number] 2021-05-12 16:18:00-00:00 [facility] ([facility]) History Physical - Adult REPORT#:[id number] REPORT STATUS: Signed DATE:05/12/21 TIME: 1618 PATIENT: TAMY MARTINEZ UNIT #: [id number] ROOM/BED: [place] [id number] : [birth year] AGE: 61 SEX: F ATTEND: Nicolle Robertson MD ADM AUTHOR: Zoraida Felder CNP * ALL edits or amendments must be made on the [employer]/computer document * History of Present Illness HPI Chief complaint: Back pain PCP: PCP: Undefined Provider HPI: 61 YO Female with PMHx of CAD with prior PCI, hypertension, diabetes mellitus, CVA, rheumatoid arthritis who was juana t in electively for staged PCI to LAD. She underwent succesful PCI of the severe proximal LAD using distal to proximal 2.75 x 24 mm Synergy drug-eluting stent overlapp ed with a 3.5 x 24 mm Synergy drug-eluting stent and then overlapped proximally to the ostium of the LAD using a 3.5 x 12 mm Synergy drug-eluting stent.The patient has io dine allergy and had some shortness of breath and sens ation of throat closing during the procedure. She is currently doing better. No signs of respiratory distress, no stridor, or wheezing. She is maintaining her aiway. She will be admitted to CCU for observation. Gently IV hydration is initited. An ticipate discharge in the morning if stable. Continue Plavix, baby ASA, statin. We will hold betablocker as she is bradycadic with HR in the 50s. Right groin puncture soft, no hematoma or bleeding. Informant/historian: patient History Past medical history: Reports: Coronary artery disease, Diabetes melli tus, Hypertension, Ischemic stroke. Denies: Atrial fibrillation, Congestive heart failure. Past surgical history: Reports: Cholecystectomy. Additional family history: Non contributory Alcohol use: Denies EtOH use Drug use: Benzodiazepines Smoking status: Smoking status for patients 13 years old or old er: Never Smoker Medication/Allergy-Vaccine Hx Medications: Home Medications: Medication Dose/Rte/Freq Days Qty Entered Last Max Daily Dose Reviewed GABAPENTIN (NEURONTIN) 600 MG PO BID 05/10/21 0 05/12/21 Strength: 600 MG TAB 1450 0856 FOLIC ACID 1 MG PO DAILY 05/10/21 05/12/21 Strength: 1 MG TAB 1450 0856 METOPROLOL SUCC XL 12.5 MG PO BID 05/10/21 03/0 05/04 (TOPROL XL) 1450 0856 Strength: 25 MG TAB.SR.24H ISOSORBIDE DINITRATE 60 MG PO DAILY 05/10/21 (ISORDIL) 1452 0856 Strength: 40 MG TAB ASPIRIN 81 MG PO DAILY 05/10/21 05/12/21 Strength: 81 MG TAB.CHEW [address] (CYMBALTA) 20 MG PO DAILY 2 05/12/21 Strength: 20 MG CAP.DR 1452 0856 LOSARTAN (COZAAR) 50 MG PO DAILY 05/10/21 03/0 05/04 Strength: 50 MG TAB 1454 0856 CLOPIDOGREL (PLAVIX) 75 MG PO DAILY 05/10/21 0 05/12/21 Strength: 75 MG TAB 1454 0856 ATORVASTATIN (LIPITOR) 40 MG PO BEDTIME 2 05/12/21 Strength: 40 MG TAB 1455 0856 METHOTREXATE 2.5 MG PO Q7D 05/10/21 05/12/21 (RHEUMATREX) 1456 0856 Strength: 2.5 MG TAB INSULIN ASPART (NovoLOG) 1 UNITS SUBQ ASDIR 05/12/21 Strength: 100 UNIT/ML 1456 0856 VIAL Insulin Degludec 26 UNITS SUBQ DAILY 05/10/21 0 05/12/21 (TRESIBA FLEXTOUCH 1457 0857 U-100 (3mL)) Strength: 100 UNIT/ML PEN.INJCTR HYDROcodone/APAP 1 TAB PO 05/12/21 05/12/21 (NORCO 10/325) Q6H PRN PRN PAIN 1316 1316 Strength: 10 MG-325 MG TAB Current Hospital Medications: Antihistamine Drugs Sig/Nandini Start time Last Medication Dose Route Stop Time Status Admin Diphenhydramine HCl 12.5 MG ONCE ONE 05/12 1800 AC (BENADRYL) PO 05/12 1801 Diphenhydramine HCl 0 .STK-MED ONE 05/12 1156 D C (BENADRYL) .ROUTE Diphenhydramine HCl 0 .STK-MED ONE 05/12 1015 D C 05/12 (BENADRYL) .ROUTE 1141 Antineoplastic Agents Sig/Nandini Start time Last Medication Dose Route Stop Time Status Admin Methotrexate 2.5 MG Q7D 05/12 1415 PEND (METHOTREXATE) PO 06/11 1414 Autonomic Drugs Sig/Nandini Start time Last Medication Dose Route Stop Time Status Admin Atropine Sulfate 0.5 MG ASDIR PRN 05/12 1415 AC (ATROPINE SULFATE IV 06/11 1414 0.1MG/ML SYR) Blood Formation,Coagulation Sig/Nandini Start time Last Medication Dose Route Stop Time Status Admin Clopidogrel Bisulfate 75 MG DAILY 05/13 0900 AC (Plavix) PO 06/12 0859 Clopidogrel Bisulfate 0 .STK-MED ONE 05/12 1110 DC 05/12 (CLOPIDOGREL .ROUTE 1141 BISULFATE) Heparin Sodium/ 1,500 ML .STK-MED ONE 05/12 095 9 DC 05/12 Sodium Chloride IV 1141 (HEPARIN 1,000 UNITS/ NS 500ML) Heparin Sodium 0 .STK-MED ONE 05/12 0958 DC (HEPARIN SODIUM) .ROUTE 1141 Clopidogrel Bisulfate 0 .STK-MED ONE 05/12 0929 DC 05/12 (Plavix) PO 0933 Cardiovascular Drugs Sig/Nandini Start time Last Medication Dose Route Stop Time Status Admin Isosorbide Dinitrate 60 MG DAILY 05/13 0900 AC (ISORDIL) PO 06/12 0859 Losartan Potassium 50 MG DAILY 05/13 0900 AC (COZAAR) PO 06/12 0859 Atorvastatin Calcium 40 MG BEDTIME 05/12 2100 A C (LIPITOR) PO 06/11 2058 Metoprolol Succinate 12.5 MG BID 05/12 2100 AC (TOPROL XL) PO 06/11 205 Hydralazine HCl 0 .STK-MED ONE 05/12 1120 DC (APRESOLINE) .ROUTE 1141 Adenosine 0 .STK-MED ONE 05/12 1028 DC 05/12 (ADENOSCAN) IV 1141 Nitroglycerin/ 250 ML .STK-MED ONE 05/12 0959 D C 05/12 Dextrose IV 1141 (NITROGLYCERIN 50,000MCG/D5W 250ML) Verapamil HCl 0 .STK-MED ONE 05/12 0959 DC (ISOPTIN) IV Lidocaine HCl 0 .STK-MED ONE 05/12 0958 DC (LIDOCAINE HCL/PF) .ROUTE 1141 Central Nervous System Agents Sig/Nandini Start time Last Medication Dose Route Stop Time Status Admin Aspirin 81 MG DAILY 05/13 0900 AC (ASPIRIN) PO 06/12 0859 Duloxetine HCl 20 MG DAILY 05/13 0900 AC (CYMBALTA) PO 06/12 0859 Gabapentin 600 MG BID 05/12 2100 AC (NEURONTIN) PO 06/11 205 Hydrocodone Bitart/ 0 .STK-MED ONE 05/12 1540 D C Acetaminophen PO (NORCO 10/325) Hydrocodone Bitart/ 1 TAB Q6H PRN PRN 05/12 133 0 AC 05/12 Acetaminophen PO 05/17 1329 1544 (NORCO 10/325) Fentanyl Citrate 0 .STK-MED ONE 05/12 1019 DC 0 05/12 (SUBLIMAZE) .ROUTE 1141 Midazolam HCl 0 .STK-MED ONE 05/12 1019 DC 03 2 (VERSED) .ROUTE 1141 Aspirin 0 .STK-MED ONE 05/12 0929 DC 05/12 (ASPIRIN) PO 0933 Electrolytic, Caloric, And Maico Sig/Nandini Start time Last Medication Dose Route Stop Time Status Admin Sodium Chloride 1,000 ML .[id number] ONE 05/12 141 5 AC 05/12 (SODIUM CHLORIDE IV 05/13 0334 1543 0.9%) Sodium Chloride 500 ML ASDIR PRN 05/12 1415 AC (SODIUM CHLORIDE IV 06/11 1414 0.9%) Sodium Chloride 50 ML .STK-MED ONE 05/12 1028 D C 05/12 (SODIUM CHLORIDE IV 1141 0.9%) Gastrointestinal Drugs Sig/Nandini Start time Last Medication Dose Route Stop Time Status Admin Famotidine 20 MG ONCE ONE 05/12 1800 AC (PEPCID) IV 05/12 1801 Hormones And Synthetic Substit Sig/Nandini Start time Last Medication Dose Route Stop Time Status Admin Methylprednisolone 125 MG ONCE ONE 05/12 1800 A C Sodium Succinate IV 05/12 1801 (Solu-Medrol 125 MG Vial) Insulin Aspart 1 UNIT ASDIR 05/12 1415 PEND (NovoLOG) SUBQ 06/11 1414 Methylprednisolone 0 .STK-MED ONE 05/12 1014 DC 05/12 Sodium Succinate .ROUTE 1141 (Solu-Medrol 125 MG Vial) Allergies: Coded Allergies: iodine (Intermediate, HIVES 05/10/21) Converted from Ingredient Allergy: IODINE Ambulatory status: Walker Review of Systems Additional notes: As stated in HPI Physical Exam VS/I O Vital Signs: Date Time Temp Pulse Resp B/P B/P Pulse O2 O2 F low FiO2 Mean Ox Delivery Rate 05/12 0942 36.6 70 18 187/77 100 Room air PATIENT WEIGHT: Weight (lb): 207 Weight (oz): 3.75 Weight (kg): 94.000 General appearance: obese, a lert, awake, oriented, no acute distress, pleasant, conversational, mental status normal, no respira tory distress Neck: supple, non-tender, no JVD Cardiovascular: bradycardia, normal capillary re fill, regular rate rhythm, normal heart sounds, BP/pulses equal bilat. Respiratory: on oxygen, decreased breath sounds Genitourinary: not indicated Extremities: moves all, no edema-all extremities Musculoskeletal: full range of motion, normal in spection 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, oriented X 3, normal speech Skin: dry, intact, normal color Psychiatry: no hallucinations, normal affect, no rmal judgment/insight, normal mood Results Findings/Data: Laboratory Tests: 05/12 05/12 05/12 05/12 05/12 1554 1457 1344 1242 1157 Chemistry POC Glucose (70 - 110 MG/DL) 150 H Coagulation Activated Coag Time (74 - 137 SEC) 154 H 178 H 207 H 261 H 05/12 05/12 05/12 1121 1050 0941 Chemistry POC Glucose (70 - 110 MG/DL) 147 H Coagulation Activated Coag Time (74 - 137 SEC) 261 H 321 H Results: vital signs reviewed, vital signs stabl e, rhythm personally rev'd Treatment Prophylaxis Treatment Prophylaxis Oxygen: nasal cannula Diagnosis, Assessment Plan Problem List/A P: 1. Coronary artery disease 2. Diabetes mellitus 3. Hypertension 4. Rheumatoid arthritis Plan discussed with: patient, nurse Code Status/Resusc. Discussion Code status: full code Free Text DxA P Notes Free Text DxA P Notes: 61 YO Female with PMHx of CAD with prior PCI, hypertension, diabetes mellitus, CVA, rheumatoid arthritis who was juana t in electively for staged PCI to LAD. She underwent succesful PCI of the severe proximal LAD using distal to proximal 2.75 x 24 mm Synergy drug-eluting stent overlapp ed with a 3.5 x 24 mm Synergy drug-eluting stent and then overlapped proximally to the ostium of the LAD using a 3.5 x 12 mm Synergy drug-eluting stent. The patient has i odine allergy and had some shortness of breath and sens ation of throat closing during the procedure. She is currently doing better. No signs of respiratory distress, no stridor, or wheezing. She is maintaining her aiway. She will be admitted to CCU for observation. Gently IV hydration is initited. An ticipate discharge in the morning if stable. Continue Plavix, baby ASA, statin. We will hold betablocker as she is bradycadic with HR in the 50s. Right groin puncture soft, no hematoma or bleeding. 1. CAD s/p PCI with MIKHAIL to LAD continue Plavix, baby ASA, statin, nitrates hold BB due to bradycardia IV NS 75 ml/hr x1 liter 2. Hypertension BP high earlier - now normotensive continue losartan hold BB d/t bradycardia 3. Iodine allergy monitor for resp distress IV hydration 4. Diabetes mellitus patient use Tresiba but NF here start insulin sliding scale Quality: [facility] Current Medications Current medication review: I attest that the foregoing medication list in [facility] medical record is true, accurate, and complete to the best of my knowled ge. at 1804 Electronically Signed by Inga Robertson MD on at 0755 RPT #:[id number] END OF REPORT 2021-05-12 12:29:00-00:00 [id number] [place] [address] PATIENT NAME: TAMY MARTINEZ ADMIT DATE: ACCOUNT NO: [id number] [place] [facility] [place] AGE: 61 REPORT TYPE: eELECTROCARDIOGRAM REPORT SEX: F ADMITTING PHYSICIAN:Inga Robertson MD ATTENDING PHYSICIAN:Inga Robertson MD Order: [id number] Test Reason : PCI Test Date/Time Stamp: MonMay 12 2021 12:29:04 Blood Pressure : / mmHG Vent. Rate : 064 BPM Atrial Rate : 064 BPM P-R Int : 154 ms QRS Dur : 082 ms QT Int : 454 ms P-R-T Axes : 065 007 051 degree s QTc Int : 468 ms Normal sinus rhythm Cannot rule out Anterior infarct (cited on or be fore 12-MAY-2021) Abnormal ECG When compared with ECG of 10-MAY-2021 14:16, No significant change was found Confirmed by MD ROBERTSON MOLHAM ([id number]) on 2021 9:36:49 AM Referred By: Dany Mcdonald Confirmed by:INGA LEVI MD Electronically Signed by Inga Robertson MD on 0 05/23/21 at 0936 PATIENT NAME: TAMY MARTINEZ ACCOUNT #: [id number] 2021-05-12 12:21:00-00:00 [id number] [place] [address] PATIENT NAME: TAMY MARTINEZ ADMIT DATE: ACCOUNT NO: [id number] ROOM NO: 336 AGE: 61 REPORT TYPE: CARDIAC CATHETERIZATION REPORT SEX: F ADMITTING PHYSICIAN:Inga Robertson MD ATTENDING PHYSICIAN:Inga Robertson MD PROCEDURE DATE: 05/12/2021 PROCEDURES PERFORMED: 1. Selective coronary angiogram. 2. IVUS of the LAD. 3. FFR of the LAD, which was strongly positive a t 0.76. 4. CSI atherectomy of heavily calcified proximal to mid LAD. 5. PCI of severe proximal to mid LAD using some distal to proximal 2.75 x 24 mm Synergy drug-eluting stent overlapped with a 3.5 x 24 mm Synergy drug-eluting stent and then overlapped proximally to the ostium of the LAD using a 3.5 x 12 mm Synergy drug-eluting stent. ACCESS: Right femoral artery, 6-Irish closed wi th Perclose. COMPLICATIONS: None. BLEEDING: Less than 50 mL. TOTAL CONTRAST USED: 90 mL. TOTAL SEDATION TIME: 85 minutes. DESCRIPTION OF PROCEDURE: After risks, benefits, and alternatives were explained, the patient agreed to proceed and sig adán informed consent. The patient was brought into the cardiac catheteriza tion laboratory, prepped and draped in usual sterile fashion. Then, we access ed the right femoral artery using a micropuncture kit, ultrasound guidance a nd fluoroscopy and placed 6-Irish [place]rie sheath. Then, I took a 6-Irish XB3.5 guide into aortic root and engaged the left main an d then I took a short Runthrough wire into the left main and then LAD, did IVUS, which showed that i t is heavily calcified vessel and did FFR by sending the Comet wire after givi ng systemic heparin to assure ACT level of over 250. Comet wire was equalized in the aortic root and then advanced into the LAD passin g the mid LAD stenosis and FFR was performed and it was 0.76 indicating severe LAD disease. Then, I took a ViperWire into the LAD. removed the Runthrough wire and did CSI atherect patricia at low and high speed mid all the way to proximal LAD and then used a 3.0 x 20 mm NC balloon to predilate and then I took an IVUS catheter again to size t he vessel, probably on the distal, on the mid LAD and used 2.75 x 2 4 mm Synergy drug-eluting stent in the midportion, then overlapped proximally using 3.5 x 24 mm Synergy drug-eluting stent and then the proximal LAD did not have good flow, so I used another 3.5 x [address] to the ostium of the LAD and the overlapped areas were then postdilated to high pressure and final resu lts were satisfactory with 0% residual stenosis and LO-3 flow. As such, we r emoved all the wires and took PATIENT NAME: TAMY MARTINEZ ACCOUNT #: [id number] final angiogram which was sa tisfactory and removed the guide, removed the sheath and Perclose was used for closure with good hemo stasis. CONCLUSION: Successful IVUS/ FFR-guided and CSI atherectomy of the LAD, proximal and mid, and status post successful PCI as outli adán above. PLAN: 1. Continue Plavix and aspirin and high-dose sta tin. 2. Due to the IODINE ALLERGY and the patient was having some shortness of breath and felt that her thr oat is closing, we will monitor her overnight in the hospital and hydrate gently. Plan for discharge tomorrow or once her symptoms are completely resolved. EKG post-procedure was totally normal. Dictated By: Dany Mcdonald MD WT: CATH:GDEWAYNE/CHRISTINA/JULIO C Conf#: [id number]/DID#: [id number] Authenticated by Dany Mcdonald MD On 05/18/2021 10:42:38 AM Electronically Signed by Dany Mcdonald MD on at 1042 PATIENT NAME: TAMY MARTINEZ ACCOUNT #: [id number] 2021-05-10 14:16:00-00:00 [id number] [place] [address] PATIENT NAME: TAMY MARTINEZ ADMIT DATE: ACCOUNT NO: [id number] ROOM NO: AGE: 61 REPORT TYPE: eELECTROCARDIOGRAM REPORT SEX: F ADMITTING PHYSICIAN: ATTENDING PHYSICIAN:Dany Mcdonald MD Order: [id number] Test Reason : PREOP Test Date/Time Stamp: MonMay 10 2021 14:16:28 Blood Pressure : / mmHG Vent. Rate : 072 BPM Atrial Rate : 072 BPM P-R Int : 136 ms QRS Dur : 080 ms QT Int : 406 ms P-R-T Axes : 059 -09 058 degree s QTc Int : 444 ms Normal sinus rhythm Left axis deviation Abnormal ECG PRE_OP Confirmed by LINDA FRIAS MD ([id number]) on 05/10/19 3:22:29 PM Referred By: Dany Mcdonald Confirmed by:LINDA TERRY MD at 1522 PATIENT NAME: TAMY MARITNEZ ACCOUNT #: [id number]
[2022-08-03] MEDS ORDERED: MORPHINE 4 MG/ML SYR ONE (15:51)
[2022-08-03 16:03] LABS: Specific Gravity 1.028 (1.005-1.030); Urine Bacteria 20-50 /HPF (<20); Urine Bilirubin NEGATIVE (Negative); Urine Blood 1+ (Negative); Urine Clarity Clear (Clear); Urine Color Light-Yellow (Yellow); Urine Glucose 4+ (Over) (Negative); Urine Protein TRACE (Negative); Urine Urobilinogen Normal (Normal); Urine pH 5.5 (5.0-7.0)
--- NOTE | 2022-08-03 16:11 | RAD REPORT ---
EXAM DESCRIPTION: CT - Stone Protocol - 08/03/2022 3:57 pm CLINICAL HISTORY: Abdominal pain. Right flank pain COMPARISON: 2021 TECHNIQUE: Computed axial tomography of the abdomen pelvis was obtained without oral or IV contrast. Lack of IV and oral contrast limits evaluation of solid organs, appendix, bowel, and vessels. Mcdonald l reformatted images were obtained and reviewed. All CT scans are performed using dose optimization technique as appropriate and may include automated exposure control or mA/KV adjustment according to patient size. FINDINGS: A renal calculus is not seen. An ureteral calculus is not noted. A bladder calculus is not present. No hydronephrosis Gastric lap band Cholecystectomy Splenic granulomata The liver, pancreas and adrenals grossly normal. There is no evidence of diverticulitis. An abnormal appendix is not noted No adnexal mass IMPRESSION: Negative for a genitourinary calculus
--- NOTE | 2022-08-03 16:28 | ER ---
Nurse's Notes [facility] Name: Tamy Martinez Age: 62 yrs Sex: Female : 1960 Arrival Date: 08/03/2022 Time: 15:06 Bed 10 Private MD: Diagnosis: UTI/ Urinary tract infection, site not specified Presentation: 08/03 15:23 Acuity: HODAN 3 iw 15:23 Chief complaint: Patient states: right hip pain and back pain. Coronavirus screen: At iw this time, the client does not indicate any symptoms associated with coronavirus-19. Ebola Screen: Patient negative for fever greater than or equal to 101.5 degrees Fahrenheit, and additional compatible Ebola Virus Disease symptoms Patient denies exposure to infectious person. Patient denies travel to an Ebola-affected area in the 21 days before illness onset. No symptoms or risks identified at this time. Initial Sepsis Screen: Does the patient meet any 2 criteria? Does the patient have a suspected source of infection? No. Patient's initial sepsis screen is negative. Risk Assessment: Do you want to hurt yourself or someone else? Patient reports no desire to harm self or others. 15:23 Method Of Arrival: Ambulatory iw 15:42 Onset of symptoms was August 03, 2022. iw Historical: - Allergies: 15:23 Iodinated Contrast Media - IV Dye; iw - PMHx: 15:23 Diabetes - IDDM; Hypertension; Myocardial infarction; Rheumatoid Arthritis; iw - PSHx: 15:26 section; Cholecystectomy; Lap band; Cholecystectomy; iw - Immunization history:: Adult Immunizations Client reports having NOT received the Covid vaccine. - Social history:: Smoking status: Patient denies any tobacco usage or history of. Screenin:39 [facility] ED Fall Risk Assessment (Adult) History of falling in the last 3 months, iw including since admission. Abuse screen: Denies threats or abuse. Denies injuries from another. Nutritional screening: No deficits noted. Tuberculosis screening: No symptoms or risk factors identified. Assessment: 15:38 General: Appears uncomfortable, Behavior is calm, cooperative. Pain: Complains of pain iw in right hip Pain radiates to back. Neuro: Level of Consciousness is awake, alert, obeys commands, Oriented to person, place, time, situation, Moves all extremities. Full function. Cardiovascular: Patient's skin is warm and dry. Respiratory: Respiratory effort is even, unlabored, Respiratory pattern is regular, symmetrical. Derm: Skin is intact, is healthy with good turgor. 16:17 Reassessment: No changes from previously documented assessment. Patient and/or family mb9 updated on plan of care and expected duration. Pain level reassessed. Patient is alert, oriented x 3, equal unlabored respirations, skin warm/dry/pink. Vital Signs: 15:24 BP 184 / 65; Pulse 66; Resp 16; Temp 99; Pulse Ox 96% on R/A; Weight 97.52 kg; Height 5 iw ft. 1 in. ; Pain 9/10; 16:17 BP 163 / 55; Pulse 62; Resp 17; Pulse Ox 100% on R/A; mb9 15:24 Body Mass Index 40.62 (97.52 kg, 154.94 cm) iw 15:24 Pain Scale: Adult iw ED Course: 15:08 Patient arrived in ED. kj1 15:11 Mariel Fernandes FNP-C is PHCP. snw 15:11 Heron Salas MD is Attending Physician. snw 15:23 Triage completed. iw 15:24 Arm band placed on. iw 15:38 Miryam Prescott, MAY is Primary Nurse. iw 15:38 Urine W/Microscopic (UAM) Sent. iw 15:42 Placed in gown. Bed in low position. Call light in reach. Side rails up X 1. Client mb9 placed on continuous cardiac and pulse oximetry monitoring. NIBP monitoring applied. laboratory monitor on. 15:42 No provider procedures requiring assistance completed. mb9 15:58 CT Stone Protocol In Process Unspecified. EDMS 16:40 Urine Culture Sent. mb9 16:43 Patient did not have IV access during this emergency room visit. mb9 Administered Medications: 15:42 Not Given (Patient Refused): fentaNYL (PF) IM 50 mcg IM once iw 15:48 Drug: morphine IM 4 mg Route: IM; Site: right gluteus; mb9 16:27 Follow up: Response: No adverse reaction mb9 16:40 Drug: Ciprofloxacin PO 500 mg Route: PO; mb9 16:43 Follow up: Response: No adverse reaction mb9 16:40 Drug: Nitrofurantoin PO 100 mg Route: PO; mb9 16:43 Follow up: Response: No adverse reaction mb9 Medication: 15:42 VIS not applicable for this client. mb9 Outcome: 16:26 Discharge ordered by . martinez 16:43 Discharged to home ambulatory. mb9 16:43 Condition: stable 16:43 Discharge instructions given to patient, Instructed on discharge instructions, follow up and referral plans. Demonstrated understanding of instructions, follow-up care, medications, Prescriptions given X 2. 16:44 Patient left the ED. mb9 Signatures: Dispatcher [employer] Mariel Osborne, MEAT SPECIALIST-C MEAT SPECIALIST-Csnw Miryam Prescott, RN RN Beth Collado kj1 Tammie Harris RN RN mb9 Corrections: (The following items were deleted from the chart) 15:25 15:24 Pulse 66bpm; Resp 16bpm; Pulse Ox 96% RA; iw iw 15:26 15:24 Pulse 66bpm; Resp 16bpm; Pulse Ox 96% RA; Temp 99F; 97.52 kg; Height 5 ft. 1 in.; iw BMI: 40.6; Pain 9/10, Adult; iw
--- NOTE | 2022-08-03 16:28 | EDPHYS ---
Physician Documentation [facility] Name: Tamy Martinez Age: 62 yrs Sex: Female : 1960 Arrival Date: 08/03/2022 Time: 15:06 Bed 10 Private MD: ED Physician Heron aSlas HPI: 08/03 16:44 This 62 yrs old Female presents to ER via Ambulatory with complaints of Pain All Over. snw 16:44 Associated signs and symptoms: Pertinent positives: pt had labs at Rheumatology office snw yesterday. The patient has experienced similar episodes in the past. The patient has been recently seen by a physician: as noted. Historical: - Allergies: 15:23 Iodinated Contrast Media - IV Dye; iw - PMHx: 15:23 Diabetes - IDDM; Hypertension; Myocardial infarction; Rheumatoid Arthritis; iw - PSHx: 15:26 section; Cholecystectomy; Lap band; Cholecystectomy; iw - Immunization history:: Adult Immunizations Client reports having NOT received the Covid vaccine. - Social history:: Smoking status: Patient denies any tobacco usage or history of. ROS: 16:41 Constitutional: Negative for fever, chills, and weight loss, Eyes: Negative for injury, snw pain, redness, and discharge, ENT: Negative for injury, pain, and discharge, Neck: Negative for injury, pain, and swelling, Cardiovascular: Negative for chest pain, palpitations, and edema, Respiratory: Negative for shortness of breath, cough, wheezing, and pleuritic chest pain, Abdomen/GI: Negative for abdominal pain, nausea, vomiting, diarrhea, and constipation. 16:41 : Negative for injury, bleeding, discharge, and swelling. 16:41 Back: Positive for flank pain, on the right. 16:41 MS/extremity: Positive for pain, tenderness, of the right hip, right gluteal fold and right hamstring. Exam: 16:33 Head/Face: Normocephalic, atraumatic. Eyes: Pupils equal round and reactive to light, snw extra-ocular motions intact. Lids and lashes normal. Conjunctiva and sclera are non-icteric and not injected. Cornea within normal limits. Periorbital areas with no swelling, redness, or edema. ENT: Nares patent. No nasal discharge, no septal abnormalities noted. Tympanic membranes are normal and external auditory canals are clear. Oropharynx with no redness, swelling, or masses, exudates, or evidence of obstruction, uvula midline. Mucous membranes moist. Neck: Trachea midline, no thyromegaly or masses palpated, and no cervical lymphadenopathy. Supple, full range of motion without nuchal rigidity, or vertebral point tenderness. No Meningismus. Chest/axilla: Normal chest wall appearance and motion. Nontender with no deformity. No lesions are appreciated. Cardiovascular: Regular rate and rhythm with a normal S1 and S2. No gallops, murmurs, or rubs. Normal PMI, no JVD. No pulse deficits. Respiratory: Lungs have equal breath sounds bilaterally, clear to auscultation and percussion. No rales, rhonchi or wheezes noted. No increased work of breathing, no retractions or nasal flaring. Abdomen/GI: Soft, non-tender, with normal bowel sounds. No distension or tympany. No guarding or rebound. No evidence of tenderness throughout. Back: No spinal tenderness. No costovertebral tenderness. Full range of motion. Skin: Warm, dry with normal turgor. Normal color with no rashes, no lesions, and no evidence of cellulitis. 16:33 Constitutional: The patient appears awake, obese, uncomfortable. Vital Signs: 15:24 BP 184 / 65; Pulse 66; Resp 16; Temp 99; Pulse Ox 96% on R/A; Weight 97.52 kg; Height 5 iw ft. 1 in. ; Pain 9/10; 16:17 BP 163 / 55; Pulse 62; Resp 17; Pulse Ox 100% on R/A; mb9 15:24 Body Mass Index 40.62 (97.52 kg, 154.94 cm) iw 15:24 Pain Scale: Adult iw MDM: 15:13 Patient medically screened. snw 16:40 Differential diagnosis: viral Infection, bacterial infection, bursitis. Data reviewed: snw vital signs, nurses notes, lab test result(s), radiologic studies. I considered the following discharge prescriptions or medication management in the emergency department Medications were administered in the Emergency Department. See MAR. Counseling: I had a detailed discussion with the patient and/or guardian regarding: the historical points, exam findings, and any diagnostic results supporting the discharge/admit diagnosis, the presence of at least one elevated blood pressure reading (>120/80) during this emergency department visit, lab results, radiology results, the need for outpatient follow up, for definitive care, to return to the emergency department if symptoms worsen or persist or if there are any questions or concerns that arise at home. Special discussion: Based on the history and exam findings, there is no indication for further emergent testing or inpatient evaluation. I discussed with the patient/guardian the need to see the primary care provider for further evaluation of the symptoms. 08/03 15:27 Order name: Urine W/Microscopic (UAM); Complete Time: 16:25 snw 08/03 16:07 Order name: Urine Culture EDMS 08/03 15:27 Order name: CT Stone Protocol; Complete Time: 16:25 snw Administered Medications: 15:42 Not Given (Patient Refused): fentaNYL (PF) IM 50 mcg IM once iw 15:48 Drug: morphine IM 4 mg Route: IM; Site: right gluteus; mb9 16:27 Follow up: Response: No adverse reaction mb9 16:40 Drug: Ciprofloxacin PO 500 mg Route: PO; mb9 16:43 Follow up: Response: No adverse reaction mb9 16:40 Drug: Nitrofurantoin PO 100 mg Route: PO; mb9 16:43 Follow up: Response: No adverse reaction mb9 Disposition Summary: 08/03/22 16:26 Discharge Ordered Location: Home snw Condition: Stable snw Diagnosis - UTI/ Urinary tract infection, site not specified snw Followup: snw - With: Emergency Department - When: As needed - Reason: Worsening of condition Followup: snw - With: Private Physician - When: 1 - 2 days - Reason: Recheck today's complaints, Continuance of care, Re-evaluation by your physician Discharge Instructions: - Discharge Summary Sheet snw - Urinary Tract Infection, Adult snw - Rehydration, Adult snw Forms: - Work release form snw - Medication Reconciliation Form snw - Thank You Letter snw - Antibiotic Education snw - Prescription Opioid Use snw Prescriptions: - Macrobid 100 mg Oral Capsule - take 1 capsule by ORAL route every 12 hours for 10 days; 20 capsule; Refills: snw 0, Product Selection Permitted - Cipro 500 mg Oral Tablet - take 1 tablet by ORAL route every 12 hours for 7 days; 14 tablet; Refills: 0, snw Product Selection Permitted Signatures: Dispatcher Wengo EDMariel Wharton, CUT PLUG PACKER-C CUT PLUG PACKER-Csnw Miryam Prescott, RN RN iw Tammie Harris RN RN mb9
[2022-08-03] MEDS ORDERED: NITROFURAN MACRO 100 MG CAP PO ONE (16:40)
[2022-08-03] MEDS ORDERED: CIPROFLOXACIN HCL 500 MG TAB ONE (16:40)
[2022-08-03 16:54] VITALS: TEMP 99
[2022-08-03 16:55] VITALS: BP 163/55; O2SAT 100
== END 2022-08-03 16:44 | disposition home or self-care (01) ==
LOC: ER 15:06
DX: N39.0 Urinary tract infection, site not specified (principal); E11.9 Type 2 diabetes mellitus without complications; I10 Essential (primary) hypertension; Z91.041 Radiographic dye allergy status
CPT/HCPCS: 74176; 76377; 81001; 87086; 87088

== ENCOUNTER 2022-09-24 09:43 | Emergency (ER) | payer BC, OTHER ==
--- OUTSIDE RECORDS SUMMARY | 2022-09-24 10:04 | XMS REPORT | Continuity of Care Document ---
:1960 Author Organization [facility] t Address [address] [place] [address] Care Team Providers Name Role Phone No ANP, Pcp [facility] Primary Care Physician CORDELL MANLEY Attending Clinician Unavailable ASHLEY MARKHAM Attending Clinician Unavailable ABBEY NEGRETE Attending Clinician Unavailable ABBEY NEGRETE Attending Clinician Unavailable ANY TOWNSEND Attending Clinician Unavailable Ji Mcintosh MD Attending Clinician SAHARA HINOJOSA Attending Clinician Unavailable ROBERT CONSTANTINO Attending Clinician Unavailable Rocio [place] Attending Clinician ROCIO CAREY Attending Clinician Unavailable Sherita Cullen RN Attending Clinician Unavailable Doctor Unassigned, [place] Attending Clinician Unavailable Lab, Ang - Db Attending Clinician Unavailable Teena Weinberg MA Attending Clinician Unavailable THEO DIGGS Attending Clinician Unavailable Gigi RYAN, Trey Attending Clinician Unavailable Inga Robertson Attending Clinician Unavailable CARMELINA CHAIDEZ Attending Clinician Unavailable Zenaida RYAN, Alvarado Paredes Attending Clinician Alejandra Zeng Attending Clinician Unavailable ELISE PARKER Attending Clinician Unavailable TREY YU Attending Clinician Unavailable SHAHNAZ OATES Attending Clinician Unavailable Shahnaz Oates MD Attending Clinician Dany Mcdonald Attending Clinician Unavailable ALVARADO ESTEVEZ Attending Clinician Unavailable KITTY MARIN Attending Clinician Unavailable Brianna RYAN, Sendhilary K.H. Attending Clinician Any Rodriguez Attending Clinician Kitty Phillips Attending Clinician RACHEL RE[place] K.H. Attending Clinician [...] Attending Clinician Carmelina Chaidez MD Attending Clinician Faith Hameed Attending Clinician FAITH BUSTOS Attending Clinician Unavailable [...] Clinician Unavailable Alejandra Zeng Admitting Clinician Unavailable [facility] Admitting Clinician Unavailable Riki RYAN, Tommy Maza Admitting Clinician FAITH BUSTOS Admitting Clinician Unavailable Juana Zamora MD Admitting Clinician FLAKO ZELAYA Admitting Clinician Unavailable Payers Payer Name Policy Type Policy Number Effective Date Expiration Date S ource [employer] OF [place] - [id number] 2012 00:00:00 OUT OF STATE [facility] RACHEL [id number] 2018 00:00:00 PLUS Problems Condition Condition Condition Status Onset Resolution Last Treating Co mments Source Name Details Category Date Date Treatment Clinician Date Colitis Colitis Disease Active 2020-03 Univers 03-19 ity of 00:00: [place] [address] Medical Branch At risk At risk Disease Active 2020-03 Univers for falls for falls 03-19 ity of 00:00: [place] 00 Medical Branch Mood Mood Disease Active [...] of History of Disease Active 2020-03 U haydeners stroke stroke 0-29 ity of 00:00: [place] 00 Medical Branch Generalize Generalize Disease Active U nivers d pain d pain 9-24 ity of 00:00: [place] 00 [facility] Branch Chest pain Chest pain Disease Active [...] ally from mellitus mellitus request for surgery [id number] Gastric Gastric Disease Active [facility]07 [facility] slippage slippage 00[facility]: Medica l 00 [place] NSVT NSVT Disease Active Univers (nonsustai (nonsustai 3-09 it y of adán adán 00:00: [place] ventricula ventricula 00 Me dical r r Branch tachycardi tachycardi a) a) Total knee Total knee Disease Active U nivers replacemen replacemen 3-05 it y of t status t status 00:00: [place] 00 [facility] Branch Diabetes Diabetes Disease Recurre [facility] mellitus mellitus nce 1-03 [facility] 00:00: Medical 00 [place] Colon Colon Disease Active 2016-03 Univers cancer cancer 1-16 [place] of screening [place] [facility] [place] Labial Labial Disease Active 2016-03 Univers lesion lesion 1-16 ity of 00:00: [place] 00 [facility] Branch Long-term Long-term Disease Active Uni vers use of use of 5-11 ity of Plaqu[place]il Plaquenil [place] [facility] Branch 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 5-11 ity of edema of edema of 00:00: [place] both eyes both eyes 00 Medi bharat Branch Senile Senile Disease Active Univers nuclear nuclear 5-11 ity of sclerosis, sclerosis, 00:[place] bilateral bilateral 00 Medi bharat Branch Dry eyes, Dry eyes, Disease Active Uni vers bilateral bilateral 5-11 ity of 00:00: [place] 00 [facility] Branch IDDM IDDM Disease Active Univers (insulin (insulin 4-01 [place] of dependent dependent 00:[place] diabetes diabetes 00 Medica l mellitus) mellitus) Bran ch Generalize Generalize Disease Active Overview : Univers d d 11-07 Formattin ity of osteoarthr osteoarthr 00:00: g of this [place] osis of osis of note Medical hand hand might be Branch different from the original. ICD10 Diagnosis Term Miner Operator Utility Diabetic Diabetic Disease Active Unive rs peripheral peripheral 11-06 it y of neuropathy neuropathy 00:00: [place] Diabetes Diabetes Disease Active 2011-03 Overview: Un alex mellitus mellitus 03-14 Formattin ity of type 2, type 2, 00:00: g of this [place] uncontroll uncontroll 00 note Me dical ed, ed, might be Branch without without different complicati complicati from the ons ons original. ICD10 Diagnosis Term Miner Operator Utility Obesity Obesity Disease Active 2011-03 Overview: Univ ers 03-14 Formattin ity of 00:00: g of this note Medical might be Branch different from the original. ICD10 Diagnosis Term Miner Operator Utility HLD HLD Disease Active 2011-03 Overview: Univer s (hyperlipi (hyperlipi 03-14 Formattin ity of demia) demia) 00:00: g of this note Medical might be Branch different from the original. ICD10 Diagnosis Term Miner Operator Utility Elevated Elevated Disease Active 2011-03 Unive rs BP BP 03-14 ity of 00:00: Medical Branch Mild Mild Disease Active 2011-03 Univers vitamin D vitamin D 03-14 ity of deficiency deficiency 00:00[place] [facility] [place] Raynaud's Raynaud's Disease Active Uni vers syndrome syndrome -18 ity of 00:00: [place] Medical [facility] Rheumatoid Rheumatoid Disease Active Overview : Univers arthritis arthritis 18 Formattin i ty of 00:00: g of this note Medical might be Branch different from the original. ICD10 Diagnosis Term [employer]er Operator Utility Chronic Chronic Disease Active Univers pain pain -18 ity of syndrome syndrome 00:00: Medical Branch Allergies, Adverse Reactions, Alerts Allergy Allergy Status Severity Reaction(s) Onset Inactive Treating Comm ents Source Name Type Date Date Clinician iodine DA Active MO HIVES [facility] 5-11 Clear 00:[facility]: [facility] iodine DA Active [place] HIVES 0 [facility] 2-28 Clear 00:00: Dutta [facility] SHELLFIS DRUG Active Anaphylaxis Uni vers H INGREDI 03-26 ity of DERIVED 00:00: [place] [address] Medical Branch Shellfis Propensi Active Anaphylaxis U [...] of IODIDE 00:00: [place] CONTAINI 00 Medical [facility] PRODUCTS IODINE DA Active U OK W/ 2004-0 [facility] CONTRAST BETADINE 8-24 Clear PREP 00:00: Dutta [facility] No Known DA Active U 2004-0 [facility] Drug 8-24 Clear Allergie 00:00: [facility] No Known DA Active U 2004-0 [facility] Other 8-24 Clear Allergie 00:00: [facility] SHRIMP DA Active U 2004-0 [facility] 8-24 Clear 00:00: Dutta [facility] iodine DA Active U 2004-0 [facility] 2-10 Clear 00:00: [place] [facility] Family History Family Member Diagnosis Comments Start Date Stop Date Source Natural father Heart disease [facility] Natural mother Cancer [facility] Social History Social Habit Start Date Stop Date Quantity Comments Source Gender identity [facility] y [facility] [place] [facility] [place] [facility] History SDOH [facility] Alcohol Std Drinks Medica l Center History SDOH [facility] Alcohol Binge Medical Jean ter History SDOH [facility] Alcohol Comment Medical C enter Exposure to 2022-07-26 2022-08-05 Not sure [facility]-CoV-2 (event) 00:00:00 11:33:00 [facility] History of Social 2022-08-05 2022-08-05 Univers ity of function 00:00:00 00:00:00 [facility] Alcohol intake 2018-10-15 2018-10-[address] Ravi es 00:00:00 00:00:00 non-drinker of Medical Ce nter alcohol (finding) History SDOH 2018-10-15 2018-10-[address] [facility] Alcohol Frequency 00:00:00 00:00:[address] [facility] Tobacco use and 2014-09-01 2014-09-01 Smokeless Universit y of exposure 00:00:00 00:00:00 tobacco non-user [facility] Sex Ass[birth year] At [birth year] JENNA Metcalf kes 00:00:00 00:00:[address] [facility] Smoking Status Start Date Stop Date Source Never smoked [facility] Medications Ordered Filled Start Stop Current Ordering Indication Dosage Frequency Signature Comments Components Source Medication Medication Date Date Medication? 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) Misc Blood-Gluco 3-0 Yes Use as Univ ers se Sensor 6-26 directed ity of (DEXCOM G7 00:00: for DX [place] SENSOR) 00 E11.69 [facility] Blood-Gluco 2022-0 Yes Use as Univ ers se 6-26 directed ity of Meter,Josué 00:00: for E11.69 [place] nuous 00 Medical (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) Misc Blood-Gluco 2023-0 Yes Use as Univ ers se Sensor 6-26 directed ity of (DEXCOM G7 00:00: for DX [place] SENSOR) 00 E11.69 Medical Yolanda Branch Blood-Gluco 2022-0 Yes Use as Univ ers se 6-26 directed ity of Meter,Josué 00:00: for E11.69 [place] nuous 00 Medical (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) Misc Blood-Gluco 2022-0 Yes Use as Univ ers se Sensor 6-26 directed ity of (DEXCOM G7 00:00: for DX [place] SENSOR) 00 E11.69 Medical Y[place]anda Branch Blood-Gluco 2022-0 Yes Use as Univ ers se 6-26 directed ity of Meter,Josué 00:00: for E11.69 [place] nuous 00 Medical (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) Misc Blood-Gluco 2022-0 Yes Use as Univ ers se Sensor 6-26 directed ity of (DEXCOM G7 00:00: for DX [place] SENSOR) 00 E11.69 Medical Y[place]anda Branch Blood-Gluco 2022-0 Yes Use as Univ ers se 6-26 directed ity of Meter,Josué 00:00: for E11.69 [place] nuous 00 Medical (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) Misc Blood-Gluco 2022-0 Yes Use as Univ ers se Sensor 6-26 directed ity of (DEXCOM G7 00:00: for DX [place] SENSOR) 00 E11.69 Medical Y[place]anda Branch Blood-Gluco 2022-0 Yes Use as Univ ers se 6-26 directed ity of Meter,Josué 00:00: for E11.69 [place] nuous 00 Medical (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) Misc Blood-Gluco 2022-0 Yes Use as Univ ers se Sensor 6-26 directed ity of (DEXCOM G7 00:00: for DX [place] SENSOR) 00 E11.69 Medical Y[place]anda Branch Blood-Gluco 2022-0 Yes [id number] Use as Univers se Sensor 6-13 directed ity of (FREESTYLE 00:00: [place] FELIPE 3 00 Medical SENSOR) Branch Yolanda Blood-Gluco 2022-0 2022- No [id number] Use as Univers se Sensor 6-13 06-26 directed ity o f (FREESTYLE 00:00: 00:00 [place] FELIPE 3 00 :00 Medical SENSOR) Branch Yolanda Blood-Gluco 0 Yes [id number] Use as Univers se Sensor 08-19 directed ity of (FREESTYLE 00:00: [place] FELIPE 3 00 Medical SENSOR) Branch Yolanda Blood-Gluco 2022- No [id number] Use as Univers se Sensor 08-19 directed ity o f (FREESTYLE 00:00: 00:00 [place] FELIPE 3 00 :00 Medical SENSOR) Branch Yolanda empaglifloz 0 Yes [id number] 25mg Take 1 Univers in 4-03 tablet by ity of (JARDIANCE) 00:00: mouth in [place] 25 mg Tab 00 the Medical morning. Branch insulin 0 Yes [id number] 25U inject 25 U nivers degludec 4-03 Units ity of (TRESIBA 00:00: [place] FLEXTOUCH 00 skin in Medical U-100) 100 the Branch unit/mL (3 morning. mL) InPn Max daily dose of 40 units insulin 0 Yes [id number] INJECT 8 Un alex aspart 4-03 UNITS ity of U-100 00:00[facility] [place] (NOVOLOG 00 US BEFORE Medica l FLEXPEN EACH MEAL. Branch U-100 MAX DAILY INSULIN) DOSE OF 30 100 unit/mL UNITS (3 mL) injection empaglifloz 0 Yes [id number] 25mg Take 1 Univers in 4-03 tablet by ity of (JARDIANCE) 00:00: [place] 25 mg Tab 00 the Medical morning. Branch insulin 2022-0 Yes [id number] 25U inject 25 U nivers degludec 4-03 Units ity of (TRESIBA 00:00: [place] FLEXTOUCH 00 skin in Medical U-100) 100 the Branch unit/mL (3 morning. mL) InPn Max daily dose of 40 units insulin 2022-0 Yes [id number] INJECT 8 Un alex aspart 4-03 UNITS ity of U-100 00:00: SUBCUTANEO [place] (NOVOLOG 00 US BEFORE Medica l FLEXPEN EACH MEAL. Branch U-100 MAX DAILY INSULIN) DOSE OF 30 100 unit/mL UNITS (3 mL) injection empaglifloz 2022-0 Yes [id number] 25mg Take 1 Univers in 4-03 tablet by ity of (JARDIANCE) 00:00: [place] 25 mg Tab 00 the Medical morning. Branch insulin 0 Yes [id number] 25U inject 25 U nivers degludec 4-03 Units ity of (TRESIBA 00:00: [place] FLEXTOUCH 00 skin in Medical U-100) 100 the Branch unit/mL (3 morning. mL) InPn Max daily dose of 40 units insulin 0 Yes [id number] INJECT 8 Un alex aspart 4-03 UNITS ity of U-100 00:00: SUBCUTANEO [place] (NOVOLOG 00 US BEFORE Medica l FLEXPEN EACH MEAL. Branch U-100 MAX DAILY INSULIN) DOSE OF 30 100 unit/mL UNITS (3 mL) injection empaglifloz 0 Yes [id number] 25mg Take 1 Univers in 4-03 tablet by ity of (JARDIANCE) 00:00: [place] 25 mg Tab 00 the Medical morning. Branch insulin 0 Yes [id number] 25U inject 25 U nivers degludec 4-03 Units ity of (TRESIBA 00:00: [place] FLEXTOUCH 00 skin in Medical U-100) 100 the Branch unit/mL (3 morning. mL) InPn Max daily dose of 40 units insulin 0 Yes [id number] INJECT 8 Un alex aspart 4-03 UNITS ity of U-100 00:00: [facility] (NOVOLOG 00 US BEFORE Medica l FLEXPEN EACH MEAL. Branch U-100 MAX DAILY INSULIN) DOSE OF 30 100 unit/mL UNITS (3 mL) injection empaglifloz 0 Yes [id number] 25mg Take 1 Univers in 4-03 tablet by ity of (JARDIANCE) 00:00: mouth in [place] 25 mg Tab 00 the Medical morning. Branch insulin 0 Yes [id number] 25U inject 25 U nivers degludec 4-03 Units ity of (TRESIBA 00:00: [place] FLEXTOUCH 00 skin in Medical U-100) 100 the Branch unit/mL (3 morning. mL) InPn Max daily dose of 40 units insulin 2022-0 Yes [id number] INJECT 8 Un alex aspart 4-03 UNITS ity of U-100 00:00: SUBCUTANEO [place] (NOVOLOG 00 US BEFORE Medica l FLEXPEN EACH MEAL. Branch U-100 MAX DAILY INSULIN) DOSE OF 30 100 unit/mL UNITS (3 mL) injection empaglifloz 2022-0 Yes [id number] 25mg Take 1 Univers in 4-03 tablet by ity of (JARDIANCE) 00:00: mouth [place] 25 mg Tab 00 the Medical morning. Branch insulin 2022-0 Yes [id number] 25U inject 25 U nivers degludec 4-03 Units ity of (TRESIBA 00:00: [place] FLEXTOU[place] 00 skin in Medical U-100) 100 the Branch unit/mL (3 morning. mL) InPn Max daily dose of 40 units insulin 2022-0 Yes [id number] INJECT 8 Un alex aspart 4-03 UNITS ity of U-100 00:00: [facility] (NOVOLOG 00 US BEFORE Medica l FLEXPEN EACH MEAL. Branch U-100 MAX DAILY INSULIN) DOSE OF 30 100 unit/mL UNITS (3 mL) injection empaglifloz 2022-0 Yes [id number] 25mg Take 1 Univers in 4-03 tablet by ity of (JARDIANCE) 00:00: mouth [place] 25 mg Tab 00 the Medical morning. Branch insulin 2022-0 Yes [id number] 25U inject 25 U nivers degludec 4-03 Units ity of (TRESIBA 00:00: [place] FLEXTOU[place] 00 skin in Medical U-100) 100 the Branch unit/mL (3 morning. mL) InPn Max daily dose of 40 units insulin 2022-0 Yes [id number] INJECT 8 Un alex aspart 4-03 UNITS ity of U-100 00:00: [facility] (NOVOLOG 00 US BEFORE Medica l FLEXPEN EACH MEAL. Branch U-100 MAX DAILY INSULIN) DOSE OF 30 100 unit/mL UNITS (3 mL) injection empaglifloz 2022-0 Yes [id number] 25mg Take 1 Univers in 4-03 tablet by ity of (JARDIANCE) 00:00: mouth [place] 25 mg Tab 00 the Medical morning. Branch insulin 2022-0 Yes [id number] 25U inject 25 U nivers degludec 4-03 Units ity of (TRESIBA 00:00: [place] FLEXTOU[place] 00 skin in Medical U-100) 100 the Branch unit/mL (3 morning. mL) InPn Max daily dose of 40 units insulin 2022-0 Yes [id number] INJECT 8 Un alex aspart 4-03 UNITS ity of U-100 00:00: SUBCUTANEO [place] (NOVOLOG 00 US BEFORE Medica l FLEXPEN EACH MEAL. Branch U-100 MAX DAILY INSULIN) DOSE OF 30 100 unit/mL UNITS (3 mL) injection empaglifloz 2022-0 Yes [id number] 25mg Take 1 Univers in 4-03 tablet by ity of (JARDIANCE) 00:00: mouth in [place] 25 mg Tab 00 the Medical morning. Branch insulin 2022-0 Yes [id number] 25U inject 25 U nivers degludec 4-03 Units ity of (TRESIBA 00:00: [place] FLEXTOUCH 00 skin in Medical U-100) 100 the Branch unit/mL (3 morning. mL) InPn Max daily dose of 40 units insulin 2022-0 Yes [id number] INJECT 8 Un alex aspart 4-03 UNITS ity of U-100 00:00: [facility] (NOVOLOG 00 US BEFORE Medica l FLEXPEN EACH MEAL. Branch U-100 MAX DAILY INSULIN) DOSE OF 30 100 unit/mL UNITS (3 mL) injection empaglifloz 2022-0 Yes [id number] 25mg Take 1 Univers in 4-03 tablet by ity of (JARDIANCE) 00:00: mouth [place] 25 mg Tab 00 the Medical morning. Branch insulin 2022-0 Yes [id number] 25U inject 25 U nivers degludec 4-03 Units ity of (TRESIBA 00:00: [place] FLEXTOUCH 00 skin in Medical U-100) 100 the Branch unit/mL (3 morning. mL) InPn Max daily dose of 40 units insulin 2023-0 Yes [id number] INJECT 8 Un alex aspart 4-03 UNITS ity of U-100 00:00: SUBCUTANEO [place] (NOVOLOG 00 US BEFORE Medica l FLEXPEN EACH MEAL. Branch U-100 MAX DAILY INSULIN) DOSE OF 30 100 unit/mL UNITS (3 mL) injection empaglifloz 3-0 Yes [id number] 25mg Take 1 Univers in 4-03 tablet by ity of (JARDIANCE) 00:00: mouth in [place] 25 mg Tab 00 the Medical morning. Branch insulin 0 Yes [id number] 25U inject 25 U nivers degludec 4-03 Units ity of (TRESIBA 00:00: [place] FLEXT[place] 00 skin in Medical U-100) 100 the Branch unit/mL (3 morning. mL) InPn Max daily dose of 40 units insulin 0 Yes [id number] INJECT 8 Un alex aspart 4-03 UNITS ity of U-100 00:00: [facility] (NOVOLOG 00 US BEFORE Medica l FLEXPEN EACH MEAL. Branch U-100 MAX DAILY INSULIN) DOSE OF 30 100 unit/mL UNITS (3 mL) injection empaglifloz 0 Yes [id number] 25mg Take 1 Univers in 4-03 tablet by ity of (JARDIANCE) 00:00: mouth in [place] 25 mg Tab 00 the Medical morning. Branch insulin 0 Yes [id number] 25U inject 25 U nivers degludec 4-03 Units ity of (TRESIBA 00:00: [place] FLEXT[place] 00 skin in Medical U-100) 100 the Branch unit/mL (3 morning. mL) InPn Max daily dose of 40 units insulin 0 Yes [id number] INJECT 8 Un alex aspart 4-03 UNITS ity of U-100 00:00: [facility] (NOVOLOG 00 US BEFORE Medica l FLEXPEN EACH MEAL. Branch U-100 MAX DAILY INSULIN) DOSE OF 30 100 unit/mL UNITS (3 mL) injection empaglifloz 0 Yes [id number] 25mg Take 1 Univers in 4-03 tablet by ity of (JARDIANCE) 00:00: mouth in [place] 25 mg Tab 00 the Medical morning. Branch insulin 0 Yes [id number] 25U inject 25 U nivers degludec 4-03 Units ity of (TRESIBA 00:00: [place] FLEXTOUCH 00 skin in Medical U-100) 100 the Branch unit/mL (3 morning. mL) InPn Max daily dose of 40 units insulin 2022-0 Yes [id number] INJECT 8 Un alex aspart 4-03 UNITS ity of U-100 00:00: SUBCUTANEO [place] (NOVOLOG 00 US BEFORE Medica l FLEXPEN EACH MEAL. Branch U-100 MAX DAILY INSULIN) DOSE OF 30 100 unit/mL UNITS (3 mL) injection empaglifloz 2022-0 Yes [id number] 25mg Take 1 Univers in 4-03 tablet by ity of (JARDIANCE) 00:00: mouth in [place] 25 mg Tab 00 the Medical morning. Branch insulin 2022-0 Yes [id number] 25U inject 25 U nivers degludec 4-03 Units ity of (TRESIBA 00:00: [place] FLEXT[place]CH 00 skin in Medical U-100) 100 the Branch unit/mL (3 morning. mL) InPn Max daily dose of 40 units insulin 2022-0 Yes [id number] INJECT 8 Un alex aspart 4-03 UNITS ity of U-100 00:00: [facility] (NOVOLOG 00 US BEFORE Medica l FLEXPEN EACH MEAL. Branch U-100 MAX DAILY INSULIN) DOSE OF 30 100 unit/mL UNITS (3 mL) injection empaglifloz 0 Yes [id number] 25mg Take 1 Univers in 4-03 tablet by ity of (JARDIANCE) 00:00: mouth [place] 25 mg Tab 00 the Medical morning. Branch insulin 2022-0 Yes [id number] 25U inject 25 U nivers degludec 4-03 Units ity of (TRESIBA 00:00: [place] FLEXT[place] 00 skin in Medical U-100) 100 the Branch unit/mL (3 morning. mL) InPn Max daily dose of 40 units insulin 2022-0 Yes [id number] INJECT 8 Un alex aspart 4-03 UNITS ity of U-100 00:00: [facility] (NOVOLOG 00 US BEFORE Medica l FLEXPEN EACH MEAL. Branch U-100 MAX DAILY INSULIN) DOSE OF 30 100 unit/mL UNITS (3 mL) injection Insulin 2022-0 Yes [id number] Use as Univ ers [place], 1-24 directed 4 ity o f Disposable, 00:00: times [place] (PEN 00 daily. Medical NEEDLES) 31 E11.65 Branch gauge x 1/4" Ndle Insulin 2022-0 Yes [id number] Use as Univ ers [place], 1-24 directed 4 ity o f Disposable, 00:00: times [place] (PEN 00 daily. Medical NEEDLES) 31 E11.65 Branch gauge x 1/4" Ndle Insulin 2023-0 Yes [id number] Use as Univ ers [place], 1-24 directed 4 ity o f Disposable, 00:00: times [place] (PEN 00 daily. Medical NEEDLES) 31 E11.65 Branch gauge x 1/4" Ndle Insulin 2023-0 Yes [id number] Use as Univ ers [place], 1-24 directed 4 ity o f Disposable, 00:00: times [place] (PEN 00 daily. Medical NEEDLES) 31 E11.65 Branch gauge x 1/4" Ndle Insulin 2023-0 Yes [id number] Use as Univ ers [place], 1-24 directed 4 ity o f Disposable, 00:00: times [place] (PEN 00 daily. Medical NEEDLES) 31 E11.65 Branch gauge x 1/4" Ndle Insulin 2023-0 Yes [id number] Use as Univ ers [place], 1-24 directed 4 ity o f Disposable, 00:00: times [place] (PEN 00 daily. Medical NEEDLES) 31 E11.65 Branch gauge x 1/4" Ndle Insulin 2023-0 Yes [id number] Use as Univ ers [place], 1-24 directed 4 ity o f Disposable, 00:00: times [place] (PEN 00 daily. Medical NEEDLES) 31 E11.65 Branch gauge x 1/4" Ndle Insulin 2023-0 Yes [id number] Use as Univ ers [place], 1-24 directed 4 ity o f Disposable, 00:00: times [place] (PEN 00 daily. Medical NEEDLES) 31 E11.65 Branch gauge x 1/4" Ndle Insulin 2023-0 Yes [id number] Use as Univ ers [place], 1-24 directed 4 ity o f Disposable, 00:00: times [place] (PEN 00 daily. Medical NEEDLES) 31 E11.65 Branch gauge x 1/4" Ndle Insulin 2023-0 Yes [id number] Use as Univ ers [place], 1-24 directed 4 ity o f Disposable, 00:00: times [place] (PEN 00 daily. Medical NEEDLES) 31 E11.65 Branch gauge x 1/4" Ndle Insulin 2023-0 Yes [id number] Use as Univ ers [place], 1-24 directed 4 ity o f Disposable, 00:00: times [place] (PEN 00 daily. Medical NEEDLES) 31 E11.65 Branch gauge x 1/4" Ndle Insulin 3-0 Yes [id number] Use as Univ ers [place], 1-24 directed 4 ity o f Disposable, 00:00: times [place] (PEN 00 daily. Medical NEEDLES) 31 E11.65 Branch gauge x 1/4" Ndle Insulin 3-0 Yes [id number] Use as Univ ers [place], 1-24 directed 4 ity o f Disposable, 00:00: times [place] (PEN 00 daily. Medical NEEDLES) 31 E11.65 Branch gauge x 1/4" Ndle Insulin 2022-0 Yes [id number] Use as Univ ers [place], 1-24 directed 4 ity o f Disposable, 00:00: times [place] (PEN 00 daily. Medical NEEDLES) 31 E11.65 Branch gauge x 1/4" Ndle Insulin 2022-0 Yes [id number] Use as Univ ers [place], 1-24 directed 4 ity o f Disposable, 00:00: times [place] (PEN 00 daily. Medical NEEDLES) 31 E11.65 Branch gauge x 1/4" Ndle Insulin 2022-0 Yes [id number] Use as Univ ers [place], 1-24 directed 4 ity o f Disposable, 00:00: times [place] (PEN 00 daily. Medical NEEDLES) 31 E11.65 Branch gauge x 1/4" Ndle Insulin 3-0 Yes [id number] Use as Univ ers [place], 1-24 directed 4 ity o f Disposable, 00:00: times [place] (PEN 00 daily. Medical NEEDLES) 31 E11.65 Branch gauge x 1/4" Ndle Insulin 2022-0 Yes [id number] Use as [facility] [place], 1-24 directed 4 ity o f Disposable, 00:00: times [place] (PEN 00 daily. Medical NEEDLES) 31 E11.65 Branch gauge x 1/4" Ndle empaglifloz 2021-03 Yes [id number] 10mg Take 1 [facility] in 2-12 tablet by ity of (J[place]) 00:00: mouth in [place] 10 mg 00 the Medical morning. Branch Blood-Gluco 2021-03 Yes [id number] Use as [facility] se Sensor 2-12 directed ity of (FREESTYLE 00:00: [place] FELIPE 3 00 Medical SENSOR) Branch Yolanda empaglifloz 2021-03 Yes [id number] 10mg Take 1 [facility] in 2-12 tablet by ity of ([place]) 00:00: mouth [place] 10 mg 00 the Medical morning. Branch Blood-Gluco 2021-03 Yes [id number] Use as [facility] se Sensor 2-12 directed ity of (FREESTYLE 00:00: [place] FELIPE 3 00 Medical SENSOR) Nicky Guerrero empaglifloz 2021-03 Yes [id number] 10mg Take 1 [facility] in 2-12 tablet by ity of ([place]) 00:00: mouth in [place] 10 mg 00 the Medical morning. Branch Blood-Gluco 2021-03 Yes [id number] Use as [facility] se Sensor 2-12 directed ity of (FREESTYLE 00:00: [place] FELIPE 3 00 Medical SENSOR) Nicky Guerrero empaglifloz 2021-03 Yes [id number] 10mg Take 1 [facility] in 2-12 tablet by ity of (J[place]IANCE) 00:00: mouth in [place] 10 mg 00 the Medical morning. Branch Blood-Gluco 2021-03 Yes [id number] Use as [facility] se Sensor 2-12 directed ity of (FREESTYLE 00:00: [place] FELIPE 3 00 Medical SENSOR) Nicky Guerrero empaglifloz 2021-03 Yes [id number] 10mg Take 1 [facility] in 2-12 tablet by ity of (J[place]) 00:00: mouth in [place] 10 mg 00 the Medical morning. Branch Blood-Gluco 2021-03 Yes [id number] Use as [facility] se Sensor 2-12 directed ity of (FREESTYLE 00:00: [place] FELIPE 3 00 Medical SENSOR) Nicky Guerrero empaglifloz 2021-03 Yes [id number] 10mg Take 1 [facility] in 2-12 tablet by ity of ([place]) 00:00: mouth in [place] 10 mg 00 the Medical morning. Branch Blood-Gluco 2021-03 Yes [id number] Use as [facility] se Sensor 2-12 directed ity of (FREESTYLE 00:00: [place] FELIPE 3 00 Medical SENSOR) Nicky Guerrero empaglifloz 2021-03 Yes [id number] 10mg Take 1 [facility] in 2-12 tablet by ity of ([place]) 00:00: mouth in [place] 10 mg 00 the Medical morning. Branch Blood-Gluco 2021-03 Yes [id number] Use as [facility] se Sensor 2-12 directed ity of (FREESTYLE 00:00: [place] FELIPE 3 00 Medical SENSOR) Branch Yolanda empaglifloz 2021-03 Yes [id number] 10mg Take 1 [facility] in 2-12 tablet by ity of ([place]) 00:00: mouth in [place] 10 mg 00 the Medical morning. Branch Blood-Gluco 2021-03 Yes [id number] Use as [facility] se Sensor 2-12 directed ity of (FREESTYLE 00:00: [place] FELIPE 3 00 Medical SENSOR) Branch Y[place]anda empaglifloz 2021-03 Yes [id number] 10mg Take 1 [facility] in 2-12 tablet by ity of ([place]) 00:00: mouth [place] 10 mg 00 the Medical morning. Branch Blood-Gluco 2021-03 Yes [id number] Use as [facility] se Sensor 2-12 directed ity of (FREESTYLE 00:00: [place] FELIPE 3 00 Medical SENSOR) Branch Yolanda Blood-Gluco 2021-03 Yes [id number] Use as [facility] se Sensor 2-12 directed ity of (FREESTYLE 00:00: [place] FELIPE 3 00 Medical SENSOR) Branch Y[place]anda Blood-Gluco 2021-03 Yes [id number] Use as [facility] se Sensor 2-12 directed ity of (FREESTYLE 00:00: [place] FELIPE 3 00 Medical SENSOR) Branch Y[place]anda Blood-Gluco 2021-03 Yes [id number] Use as [facility] se Sensor 2-12 directed ity of (FREESTYLE 00:00: [place] FELIPE 3 00 Medical SENSOR) Branch Yolanda Blood-Gluco 2021-03 Yes [id number] Use as [facility] se Sensor 2-12 directed ity of (FREESTYLE 00:00: [place] FELIPE 3 00 Medical SENSOR) Branch Y[place]anda Blood-Gluco 2021-03 Yes [id number] Use as [facility] se Sensor 2-12 directed ity of (FREESTYLE 00:00: [place] FELIPE 3 00 Medical SENSOR) Branch Yolanda Blood-Gluco 2021-03- No [id number] Use as [facility] se Sensor 2-12 08-19 directed ity o f (FREESTYLE 00:00: 00:00 [place] FELIPE 3 00 :00 Medical SENSOR) Branch Yolanda empaglifloz 2021-03- No [id number] 10mg Take 1 [facility] in 2-12 04-03 tablet by ity of (JARDIANCE) 00:00: 00:00 mouth [place] 10 mg 00 :00 the Medical morning. Branch empaglifloz 2021-1 3- No [id number] 10mg Take 1 [facility] in 04-24- tablet by ity of (JARDIANCE) 00:00: 00:00 mouth [place] 10 mg 00 :00 the Medical morning. Branch predniSONE 2022-0 Yes Univers 50 mg 4-12 ity of tablet 00:00: [place] 00 Medical Branch predniSONE 2022-0 Yes [facility] 50 mg 4-12 ity of tablet 00:00: [place] 00 Medical Branch predniSONE 2022-0 Yes [facility] 50 mg 4-12 ity of tablet 00:00: [place] 00 Medical Branch predniSONE 2022-0 Yes [facility] 50 mg 4-12 ity of tablet 00:00: [place] 00 Medical Branch predniSONE 2022-0 Yes [facility] 50 mg 4-12 ity of tablet 00:00: [place] [facility] predniSONE 2022-0 Yes [facility] 50 mg 4-12 ity of tablet 00:00: [place] [facility] predniSONE 2022-0 Yes [facility] 50 mg 4-12 ity of tablet 00:00: [place] 00 Medical Branch predniSONE 2022-0 Yes [facility] 50 mg 4-12 ity of tablet 00:00: [place] [facility] predniSONE 2022-0 Yes [facility] 50 mg 4-12 ity of tablet 00:00: [place] [facility] predniSONE 2022-0 Yes [facility] 50 mg 4-12 ity of tablet 00:00: [place] [facility] predniSONE 2022-0 Yes [facility] 50 mg 4-12 ity of tablet 00:00: [place] [facility] predniSONE 2022-0 Yes [facility] 50 mg 4-12 ity of tablet 00:00: [place] 00 Medical Branch predniSONE 2022-0 Yes Univers 50 mg 4-12 ity of tablet 00:00: [place] [address] Medical Branch predniSONE 2022-0 Yes [facility] 50 mg 4-12 ity of tablet 00:00: [place] [facility] predniSONE 2022-0 Yes [facility] 50 mg 4-12 ity of tablet 00:00: [place] 00 Medical Branch predniSONE 2022-0 Yes [facility] 50 mg 4-12 ity of tablet 00:00: [place] [address] Medical Branch predniSONE 2022-0 Yes [facility] 50 mg 4-12 ity of tablet 00:00: [place] [address] Medical Branch predniSONE 2022-0 Yes [facility] 50 mg 4-12 ity of tablet 00:00: [place] 00 Medical Branch predniSONE 2022-0 Yes [facility] 50 mg 4-12 ity of tablet 00:00: [place] [facility] predniSONE 2022-0 Yes [facility] 50 mg 4-12 ity of tablet 00:00: [place] [facility] predniSONE 2022-0 Yes [facility] 50 mg 4-12 ity of tablet 00:00: [place] [facility] predniSONE 2022-0 Yes [facility] 50 mg 4-12 ity of tablet 00:00: [place] [facility] predniSONE 2022-0 Yes [facility] 50 mg 4-12 ity of tablet 00:00: [place] [facility] predniSONE 2022-0 Yes [facility] 50 mg 4-12 ity of tablet 00:00: [place] [facility] predniSONE 2022-0 Yes [facility] 50 mg 4-12 ity of tablet 00:00: [place] [facility] predniSONE 2022-0 Yes [facility] 50 mg 4-12 ity of tablet 00:00: [place] [facility] predniSONE 2022-0 Yes [facility] 50 mg 4-12 ity of tablet 00:00: [place] [facility] methotrexat 2022-0 Yes TAKE 5 Univ ers e 2.5 mg 4-07 TABLETS BY ity o f tablet 00:00: MOUTH 1 [place] TIME Medical WEEKLY Branch methotrexat 2022-0 Yes TAKE 5 Univ ers e 2.5 mg 4-07 TABLETS BY ity o f tablet 00:00: MOUTH 1 [place] TIME Medical WEEKLY Branch methotrexat 2022-0 Yes TAKE 5 Univ ers e 2.5 mg 4-07 TABLETS BY ity o f tablet 00:00: MOUTH 1 [place] TIME Medical WEEKLY Branch methotrexat 2022-0 Yes TAKE 5 Univ ers e 2.5 mg 4-07 TABLETS BY ity o f tablet 00:00: MOUTH 1 TIME Medical WEEKLY Branch methotrexat 2022-0 Yes TAKE 5 Univ ers e 2.5 mg 4-07 TABLETS BY ity o f tablet 00:00: MOUTH 1 [place] TIME Medical WEEKLY Branch methotrexat 2022-0 Yes TAKE 5 Univ ers e 2.5 mg 4-07 TABLETS BY ity o f tablet 00:00: MOUTH 1 [place] TIME Medical WEEKLY Branch methotrexat 2022-0 Yes TAKE 5 Univ ers e 2.5 mg 4-07 TABLETS BY ity o f tablet 00:00: MOUTH 1 [place] TIME Medical WEEKLY Branch methotrexat 2022-0 Yes [...] MOUTH 1 TIME Medical WEEKLY Branch methotrexat 0 Yes TAKE 5 Univ ers e 2.5 mg 4-07 TABLETS BY ity o f tablet 00:00: MOUTH 1 TIME Medical WEEKLY Branch methotrexat 0 Yes TAKE 5 Univ ers e 2.5 mg 4-07 TABLETS BY ity o f tablet 00:00: MOUTH 1 TIME Medical WEEKLY Branch methotrexat 0 Yes TAKE 5 Univ ers e 2.5 mg 4-07 TABLETS BY ity o f tablet 00:00: MOUTH 1 TIME Medical WEEKLY Branch methotrexat 0 Yes TAKE 5 Univ ers e 2.5 [...] 1 TIME Medical WEEKLY Branch TRESIBA Yes [id number] 26U INJECT 26 U nivers FLEXTOUCH 4-06 UNITS ity of U-100 100 00:00: UNDER THE [place] unit/mL (3 00 SKIN Medical mL) InPn DAILY. MAX Branc h DAILY DOSE OF 40 UNITS TRESIBA 2021-0 Yes [id number] 26U INJECT 26 U nivers FLEXTOUCH 4-06 UNITS ity of U-100 100 00:00: UND[facility] THE [place] unit/mL (3 00 SKIN Medical mL) InPn DAILY. MAX Branc h DAILY DOSE OF 40 UNITS TRESIBA 2022-0 Yes [id number] 26U INJECT 26 U nivers FLEXTOUCH 4-06 UNITS ity of U-100 100 00:00: [facility] THE [place] unit/mL (3 00 SKIN Medical mL) InPn DAILY. MAX Branc h DAILY DOSE OF 40 UNITS TRESIBA 2-0 Yes [id number] 26U INJECT 26 U nivers FLEXTOUCH 4-06 UNITS ity of U-100 100 00:00: [facility] THE [place] unit/mL (3 00 SKIN Medical mL) InPn DAILY. MAX Branc h DAILY DOSE OF 40 UNITS TRESIBA 2022-0 Yes [id number] 26U INJECT 26 U nivers FLEXTOUCH 4-06 UNITS ity of U-100 100 00:00: [facility] THE [place] unit/mL (3 00 SKIN Medical mL) InPn DAILY. MAX Branc h DAILY DOSE OF 40 UNITS TRESIBA 2022-0 Yes [id number] 26U INJECT 26 U nivers FLEXTOUCH 4-06 UNITS ity of U-100 100 00:00: [facility] THE [place] unit/mL (3 00 SKIN Medical mL) InPn DAILY. MAX Branc h DAILY DOSE OF 40 UNITS TRESIBA 2022-0 Yes [id number] 26U INJECT 26 U nivers FLEXTOUCH 4-06 UNITS ity of U-100 100 00:00: [facility] THE [place] unit/mL (3 00 SKIN Medical mL) InPn DAILY. MAX Branc h DAILY DOSE OF 40 UNITS TRESIBA 2-0 Yes [id number] 26U INJECT 26 U nivers FLEXTOUCH 4-06 UNITS ity of U-100 100 00:00: [facility] THE [place] unit/mL (3 00 SKIN Medical mL) InPn DAILY. MAX Branc h DAILY DOSE OF 40 UNITS TRESIBA 2-0 Yes [id number] 26U INJECT 26 U nivers FLEXTOUCH 4-06 UNITS ity of U-100 100 00:00: [facility] [place] unit/mL (3 00 SKIN Medical mL) InPn DAILY. MAX Branc h DAILY DOSE OF 40 UNITS TRESIBA 2-0 Yes [id number] 26U INJECT 26 U nivers FLEXTOUCH 4-06 UNITS ity of U-100 100 00:00: [facility] THE [place] unit/mL (3 00 SKIN Medical mL) InPn DAILY. MAX Branc h DAILY DOSE OF 40 UNITS TRESIBA 2022-0 Yes [id number] 26U INJECT 26 U nivers FLEXTOUCH 4-06 UNITS ity of U-100 100 00:00: [facility] THE [place] unit/mL (3 00 SKIN Medical mL) InPn DAILY. MAX Branc h DAILY DOSE OF 40 UNITS TRESIBA 2022-0 Yes [id number] 26U INJECT 26 U nivers FLEXTOUCH 4-06 UNITS ity of U-100 100 00:00: [facility] THE [place] unit/mL (3 00 SKIN Medical mL) InPn DAILY. MAX Branc h DAILY DOSE OF 40 UNITS TRESIBA 2022-0 3- No [id number] 26U INJECT 26 Univers FLEXTOUCH 06-16 04-03 UNITS ity of U-100 100 00:00: 00:00 [place] unit/mL (3 00 :00 SKIN Medical mL) InPn DAILY. MAX Branc h DAILY DOSE OF 40 UNITS TRESIBA 2022-0 3- No [id number] 26U INJECT 26 [facility] FLEXTOUCH 06-16 04-03 UNITS ity of U-100 100 00:00: 00:00 [place] unit/mL (3 00 :00 SKIN Medical mL) InPn DAILY. MAX Branc h DAILY DOSE OF 40 UNITS atorvastati 2021-0 Yes 40mg Take 1 Univ ers n 40 mg 1-20 tablet by ity of tablet 00:00: mouth at [place] [address] bedtime. Medical Branch atorvastati 2021-0 Yes 40mg Take 1 Univ ers n 40 mg 1-20 tablet by ity of tablet 00:00: mouth at [place] [address] bedtime. Medical Branch atorvastati 2021-0 Yes 40mg Take 1 Univ ers n 40 mg 1-20 tablet by ity of tablet 00:00: mouth at [place] [address] bedtime. Medical Branch atorvastati 2021-0 Yes 40mg Take 1 Univ ers n 40 mg 1-20 tablet by ity of tablet 00:00: mouth at [place] [address] bedtime. Medical Branch atorvastati 2021-0 Yes 40mg Take 1 Univ ers n 40 mg 1-20 tablet by ity of tablet 00:00: mouth at [place] [address] bedtime. Medical Branch atorvastati 2-0 Yes 40mg Take 1 Univ ers n 40 mg 1-20 tablet by ity of tablet 00:00: mouth at [place] [address] bedtime. Medical Branch atorvastati 2-0 Yes 40mg Take 1 Univ ers n 40 mg 1-20 tablet by ity of tablet 00:00: mouth at [place] [address] bedtime. Medical Branch atorvastati 2-0 Yes 40mg Take 1 Univ ers n 40 mg 1-20 tablet by ity of tablet 00:00: mouth at [place] [address] bedtime. Medical Branch atorvastati 2-0 Yes 40mg Take 1 Univ ers n 40 mg 1-20 tablet by ity of tablet 00:00: mouth at [place] [address] bedtime. Medical Branch atorvastati 2-0 Yes 40mg Take 1 Univ ers n 40 mg 1-20 tablet by ity of tablet 00:00: mouth at [place] [address] bedtime. Medical Branch atorvastati 2-0 Yes 40mg Take 1 Univ ers n 40 mg 1-20 tablet by ity of tablet 00:00: mouth at [place] [address] bedtime. Medical Branch atorvastati 2-0 Yes 40mg Take 1 Univ ers n 40 mg 1-20 tablet by ity of tablet 00:00: mouth at [place] [address] bedtime. Medical Branch atorvastati 2021-0 Yes 40mg Take 1 Univ ers n 40 mg 1-20 tablet by ity of tablet 00:00: mouth at [place] [address] bedtime. Medical Branch atorvastati 2021-0 Yes 40mg Take 1 Univ ers n 40 mg 1-20 tablet by ity of tablet 00:00: mouth at [place] [address] bedtime. Medical Branch atorvastati 2-0 Yes 40mg Take 1 Univ ers n 40 mg 1-20 tablet by ity of tablet 00:00: mouth at [place] [address] bedtime. Medical Branch atorvastati 2-0 Yes 40mg Take 1 Univ ers n 40 mg 1-20 tablet by ity of tablet 00:00: mouth at [place] [address] bedtime. Medical Branch atorvastati 2-0 Yes 40mg Take 1 Univ ers n 40 mg 1-20 tablet by ity of tablet 00:00: mouth at [place] [address] bedtime. Medical Branch atorvastati 2-0 Yes 40mg Take 1 Univ ers n 40 mg 1-20 tablet by ity of tablet 00:00: mouth at [place] [address] bedtime. Medical Branch atorvastati 2-0 Yes 40mg Take 1 Univ ers n 40 mg 1-20 tablet by ity of tablet 00:00: mouth at [place] [address] bedtime. Medical Branch atorvastati 2-0 Yes 40mg Take 1 Univ ers n 40 mg 1-20 tablet by ity of tablet 00:00: mouth at [place] [address] bedtime. Medical Branch atorvastati 2-0 Yes 40mg Take 1 Univ ers n 40 mg 1-20 tablet by ity of tablet 00:00: mouth at [place] bedtime. Medical Branch atorvastati 2022-0 Yes 40mg Take 1 Univ ers n 40 mg 1-20 tablet by ity of tablet 00:00: mouth at [place] bedtime. Medical Branch atorvastati 2-0 Yes 40mg Take 1 Univ ers n 40 mg 1-20 tablet by ity of tablet 00:00: mouth at [place] bedtime. Medical Branch atorvastati 2-0 Yes 40mg Take 1 Univ ers n 40 mg 1-20 tablet by ity of tablet 00:00: mouth at [place] bedtime. Medical Branch atorvastati 2-0 Yes 40mg Take 1 Univ ers n 40 mg 1-20 tablet by ity of tablet 00:00: mouth at [place] bedtime. Medical Branch atorvastati 2-0 Yes 40mg Take 1 Univ ers n 40 mg 1-20 tablet by ity of tablet 00:00: mouth at [place] bedtime. Medical Branch atorvastati 2-0 Yes 40mg Take 1 Univ ers n 40 mg 1-20 tablet by ity of tablet 00:00: mouth at [place] bedtime. Medical Branch gabapentin 2022-0 Yes [id number] 600mg Take 1 [facility] 600 mg 1-07 tablet by ity of tablet 00:00: mouth (two) Medical times Branch daily. gabapentin 2022-0 Yes [id number] 600mg Take 1 [facility] 600 mg 1-07 tablet by ity of tablet 00:00: mouth (two) Medical times Branch daily. gabapentin 2022-0 Yes [id number] 600mg Take 1 [facility] 600 mg 1-07 tablet by ity of tablet 00:00: mouth (two) Medical times Branch daily. gabapentin 2022-0 Yes [id number] 600mg Take 1 [facility] 600 mg 1-07 tablet by ity of tablet 00:00: mouth (two) Medical times Branch daily. gabapentin 2022-0 Yes [id number] 600mg Take 1 [facility] 600 mg 1-07 tablet by ity of tablet 00:00: mouth 2 (two) Medical times Branch daily. gabapentin 2022-0 Yes [id number] 600mg Take 1 [facility] 600 mg 1-07 tablet by ity of tablet 00:00: mouth (two) Medical times Branch daily. gabapentin 2022-0 Yes [id number] 600mg Take 1 [facility] 600 mg 1-07 tablet by ity of tablet 00:00: mouth (two) Medical times Branch daily. gabapentin 2022-0 Yes [id number] 600mg Take 1 [facility] 600 mg 1-07 tablet by ity of tablet 00:00: mouth (two) Medical times Branch daily. gabapentin 2022-0 Yes [id number] 600mg Take 1 [facility] 600 mg 1-07 tablet by ity of tablet 00:00: mouth (two) Medical times Branch daily. gabapentin 2022-0 Yes [id number] 600mg Take 1 [facility] 600 mg 1-07 tablet by ity of tablet 00:00: mouth (two) Medical times Branch daily. gabapentin 2022-0 Yes [id number] 600mg Take 1 [facility] 600 mg 1-07 tablet by ity of tablet 00:00: mouth (two) Medical times Branch daily. gabapentin 2022-0 Yes [id number] 600mg Take 1 [facility] 600 mg 1-07 tablet by ity of tablet 00:00: mouth (two) Medical times Branch daily. gabapentin 2022-0 Yes [id number] 600mg Take 1 [facility] 600 mg 1-07 tablet by ity of tablet 00:00: mouth (two) Medical times Branch daily. gabapentin 2022-0 Yes [id number] 600mg Take 1 [facility] 600 mg 1-07 tablet by ity of tablet 00:00: mouth (two) Medical times Branch daily. gabapentin 2022-0 Yes [id number] 600mg Take 1 [facility] 600 mg 1-07 tablet by ity of tablet 00:00: mouth (two) Medical times Branch daily. gabapentin 2022-0 Yes [id number] 600mg Take 1 [facility] 600 mg 1-07 tablet by ity of tablet 00:00: mouth (two) Medical times Branch daily. gabapentin 2022-0 Yes [id number] 600mg Take 1 [facility] 600 mg 1-07 tablet by ity of tablet 00:00: mouth (two) Medical times Branch daily. gabapentin 2022-0 Yes [id number] 600mg Take 1 [facility] 600 mg 1-07 tablet by ity of tablet 00:00: mouth (two) Medical times Branch daily. gabapentin 2022-0 Yes [id number] 600mg Take 1 [facility] 600 mg 1-07 tablet by ity of tablet 00:00: mouth 2 (two) Medical times Branch daily. gabapentin 2022-0 Yes [id number] 600mg Take 1 [facility] 600 mg 1-07 tablet by ity of tablet 00:00: mouth 2 (two) Medical times Branch daily. gabapentin 2022-0 Yes [id number] 600mg Take 1 [facility] 600 mg 1-07 tablet by ity of tablet 00:00: mouth 2 (two) Medical times Branch daily. gabapentin 2022-0 Yes [id number] 600mg Take 1 [facility] 600 mg 1-07 tablet by ity of tablet 00:00: mouth 2 (two) Medical times Branch daily. gabapentin 2022-0 Yes [id number] 600mg Take 1 [facility] 600 mg 1-07 tablet by ity of tablet 00:00: mouth 2 (two) Medical times Branch daily. gabapentin 2022-0 Yes [id number] 600mg Take 1 [facility] 600 mg 1-07 tablet by ity of tablet 00:00: mouth 2 (two) Medical times Branch daily. gabapentin 2022-0 Yes [id number] 600mg Take 1 [facility] 600 mg 1-07 tablet by ity of tablet 00:00: mouth 2 (two) Medical times Branch daily. gabapentin 2022-0 Yes [id number] 600mg Take 1 [facility] 600 mg 1-07 tablet by ity of tablet 00:00: mouth 2 (two) Medical times Branch daily. gabapentin 2022-0 Yes [id number] 600mg Take 1 [facility] 600 mg 1-07 tablet by ity of tablet 00:00: mouth 2 (two) Medical times Branch daily. ISOSORBIDE 2021-1 Yes [id number] 30mg TAKE 1 U nivers MONONITRATE 2-10 TABLET BY ity of 30 mg 24 hr 00:00: MOUTH [place] tablet 00 DAILY Medical Branch ISOSORBIDE 2021-1 Yes [id number] 30mg TAKE 1 U nivers MONONITRATE 2-10 TABLET BY ity of 30 mg 24 hr 00:00: MOUTH [place] tablet 00 DAILY Medical Branch ISOSORBIDE 2020-1 Yes [id number] 30mg TAKE 1 U nivers MONONITRATE 2-10 TABLET BY ity of 30 mg 24 hr 00:00: MOUTH [place] tablet 00 DAILY Medical Branch ISOSORBIDE 2020- Yes [id number] 30mg TAKE 1 U nivers MONONITRATE 2-10 TABLET BY ity of 30 mg 24 hr 00:00: MOUTH [place] tablet 00 DAILY Medical Branch ISOSORBIDE 2020-03 Yes [id number] 30mg TAKE 1 U nivers MONONITRATE 2-10 TABLET BY ity of 30 mg 24 hr 00:00: MOUTH [place] tablet 00 DAILY Medical Branch ISOSORBIDE 2020-03 Yes [id number] 30mg TAKE 1 U nivers MONONITRATE 2-10 TABLET BY ity of 30 mg 24 hr 00:00: MOUTH [place] tablet 00 DAILY Medical Branch ISOSORBIDE 2020-03 Yes [id number] 30mg TAKE 1 U nivers MONONITRATE 2-10 TABLET BY ity of 30 mg 24 hr 00:00: MOUTH [place] tablet 00 DAILY Medical Branch ISOSORBIDE 2020-03 Yes [id number] 30mg TAKE 1 U nivers MONONITRATE 2-10 TABLET BY ity of 30 mg 24 hr 00:00: MOUTH [place] tablet 00 DAILY Medical Branch ISOSORBIDE 2020-03 Yes [id number] 30mg TAKE 1 U nivers MONONITRATE 2-10 TABLET BY ity of 30 mg 24 hr 00:00: MOUTH [place] tablet 00 DAILY Medical Branch ISOSORBIDE 2020-03 Yes [id number] 30mg TAKE 1 U nivers MONONITRATE 2-10 TABLET BY ity of 30 mg 24 hr 00:00: MOUTH [place] tablet 00 DAILY Medical Branch ISOSORBIDE 2020-03 Yes [id number] 30mg TAKE 1 U nivers MONONITRATE 2-10 TABLET BY ity of 30 mg 24 hr 00:00: MOUTH [place] tablet 00 DAILY Medical Branch ISOSORBIDE 2020- Yes [id number] 30mg TAKE 1 U nivers MONONITRATE 2-10 TABLET BY ity of 30 mg 24 hr 00:00: MOUTH [place] tablet 00 DAILY Medical Branch ISOSORBIDE 2020- Yes [id number] 30mg TAKE 1 U nivers MONONITRATE 2-10 TABLET BY ity of 30 mg 24 hr 00:00: MOUTH [place] tablet 00 DAILY Medical Branch ISOSORBIDE 2020-03 Yes [id number] 30mg TAKE 1 U nivers MONONITRATE 2-10 TABLET BY ity of 30 mg 24 hr 00:00: MOUTH [place] tablet 00 DAILY Medical Branch ISOSORBIDE 2020-03 Yes [id number] 30mg TAKE 1 U nivers MONONITRATE 2-10 TABLET BY ity of 30 mg 24 hr 00:00: MOUTH [place] tablet 00 DAILY Medical Branch ISOSORBIDE 2020- Yes [id number] 30mg TAKE 1 U nivers MONONITRATE 2-10 TABLET BY ity of 30 mg 24 hr 00:00: MOUTH [place] tablet 00 DAILY Medical Branch ISOSORBIDE 2020- Yes [id number] 30mg TAKE 1 U nivers MONONITRATE 2-10 TABLET BY ity of 30 mg 24 hr 00:00: MOUTH [place] tablet 00 DAILY Medical Branch ISOSORBIDE 2020-03 Yes [id number] 30mg TAKE 1 U nivers MONONITRATE 2-10 TABLET BY ity of 30 mg 24 hr 00:00: MOUTH [place] tablet 00 DAILY Medical Branch ISOSORBIDE 2020-03 Yes [id number] 30mg TAKE 1 U nivers MONONITRATE 2-10 TABLET BY ity of 30 mg 24 hr 00:00: MOUTH [place] tablet 00 DAILY Medical Branch ISOSORBIDE 2020-03 Yes [id number] 30mg TAKE 1 U nivers MONONITRATE 2-10 TABLET BY ity of 30 mg 24 hr 00:00: MOUTH [place] tablet 00 DAILY Medical Branch ISOSORBIDE 2020-03 Yes [id number] 30mg TAKE 1 U nivers MONONITRATE 2-10 TABLET BY ity of 30 mg 24 hr 00:00: MOUTH [place] tablet 00 DAILY Medical Branch ISOSORBIDE 2020-03 Yes [id number] 30mg TAKE 1 U nivers MONONITRATE 2-10 TABLET BY ity of 30 mg 24 hr 00:00: MOUTH [place] tablet 00 DAILY Medical Branch ISOSORBIDE 2020- Yes [id number] 30mg TAKE 1 U nivers MONONITRATE 2-10 TABLET BY ity of 30 mg 24 hr 00:00: MOUTH [place] tablet 00 DAILY Medical Branch ISOSORBIDE 2020- Yes [id number] 30mg TAKE 1 U nivers MONONITRATE 2-10 TABLET BY ity of 30 mg 24 hr 00:00: MOUTH [place] tablet 00 DAILY Medical Branch ISOSORBIDE 2020-03 Yes [id number] 30mg TAKE 1 U nivers MONONITRATE 2-10 TABLET BY ity of 30 mg 24 hr 00:00: MOUTH [place] tablet 00 DAILY Medical Branch ISOSORBIDE 2020 Yes [id number] 30mg TAKE 1 U nivers MONONITRATE 2-10 TABLET BY ity of 30 mg 24 hr 00:00: MOUTH [place] tablet 00 DAILY Medical Branch ISOSORBIDE 2020-03 Yes [id number] 30mg TAKE 1 U nivers MONONITRATE 2-10 TABLET BY ity of 30 mg 24 hr 00:00: MOUTH [place] tablet 00 DAILY Medical Branch insulin 2020-03 Yes [id number] INJECT 10 U nivers aspart 2-09 UNITS ity of U-100 00:00: [facility] (NOVOLOG 00 US BEFORE Medica l FLEXPEN EACH MEAL Branch U-100 AND INSULIN) SLIDING 100 unit/mL SCALE. MAX (3 mL) DAILY DOSE injection OF 40 UNITS insulin 2020-03 Yes [id number] INJECT 10 U nivers aspart 2-09 UNITS ity of U-100 00:00: [facility] (NOVOLOG 00 US BEFORE Medica l FLEXPEN EACH MEAL Branch U-100 AND INSULIN) SLIDING 100 unit/mL SCALE. MAX (3 mL) DAILY DOSE injection OF 40 UNITS insulin 2020-03 Yes [id number] INJECT 10 U nivers aspart 2-09 UNITS ity of U-100 00:00: [facility] (NOVOLOG 00 US BEFORE Medica l FLEXPEN EACH MEAL Branch U-100 AND INSULIN) SLIDING 100 unit/mL SCALE. MAX (3 mL) DAILY DOSE injection OF 40 UNITS insulin 2020-03 Yes [id number] INJECT 10 U nivers aspart 2-09 UNITS ity of U-100 00:00: [facility] (NOVOLOG 00 US BEFORE Medica l FLEXPEN EACH MEAL Branch U-100 AND INSULIN) SLIDING 100 unit/mL SCALE. MAX (3 mL) DAILY DOSE injection OF 40 UNITS insulin 2020-03 Yes [id number] INJECT 10 U nivers aspart 2-09 UNITS ity of U-100 00:00: [facility] (NOVOLOG 00 US BEFORE Medica l FLEXPEN EACH MEAL Branch U-100 AND INSULIN) SLIDING 100 unit/mL SCALE. MAX (3 mL) DAILY DOSE injection OF 40 UNITS insulin 2020-03 Yes [id number] INJECT 10 U nivers aspart 2-09 UNITS ity of U-100 00:00: [facility] (NOVOLOG 00 US BEFORE Medica l FLEXPEN EACH MEAL Branch U-100 AND INSULIN) SLIDING 100 unit/mL SCALE. MAX (3 mL) DAILY DOSE injection OF 40 UNITS insulin 2020-03 Yes [id number] INJECT 10 U nivers aspart 2-09 UNITS ity of U-100 00:00: SUBCUTANEO [place] (NOVOLOG 00 US BEFORE Medica l FLEXPEN EACH MEAL Branch U-100 AND INSULIN) SLIDING 100 unit/mL SCALE. MAX (3 mL) DAILY DOSE injection OF 40 UNITS insulin 2020-03 Yes [id number] INJECT 10 U nivers aspart 2-09 UNITS ity of U-100 00:00: SUBCUTANEO [place] (NOVOLOG 00 US BEFORE Medica l FLEXPEN EACH MEAL Branch U-100 AND INSULIN) SLIDING 100 unit/mL SCALE. MAX (3 mL) DAILY DOSE injection OF 40 UNITS insulin 2020-03 Yes [id number] INJECT 10 U nivers aspart 2-09 UNITS ity of U-100 00:00: [facility] [place] (NOVOLOG 00 US BEFORE Medica l FLEXPEN EACH MEAL Branch U-100 AND INSULIN) SLIDING 100 unit/mL SCALE. MAX (3 mL) DAILY DOSE injection OF 40 UNITS insulin 2020-03 Yes [id number] INJECT 10 U nivers aspart 2-09 UNITS ity of U-100 00:00: [facility] (NOVOLOG 00 US BEFORE Medica l FLEXPEN EACH MEAL Branch U-100 AND INSULIN) SLIDING 100 unit/mL SCALE. MAX (3 mL) DAILY DOSE injection OF 40 UNITS insulin 2020-03 Yes [id number] INJECT 10 U nivers aspart 2-09 UNITS ity of U-100 00:00: [facility] (NOVOLOG 00 US BEFORE Medica l FLEXPEN EACH MEAL Branch U-100 AND INSULIN) SLIDING 100 unit/mL SCALE. MAX (3 mL) DAILY DOSE injection OF 40 UNITS insulin 2020-03 Yes [id number] INJECT 10 U nivers aspart 2-09 UNITS ity of U-100 00:00: [facility] [place] (NOVOLOG 00 US BEFORE Medica l FLEXPEN EACH MEAL Branch U-100 AND INSULIN) SLIDING 100 unit/mL SCALE. MAX (3 mL) DAILY DOSE injection OF 40 UNITS insulin 2020-03 No [id number] INJECT 10 [facility] aspart 2-09 04-03 UNITS ity of U-100 00:00: 00:00 [facility] [place] (NOVOLOG 00 :00 US BEFORE Medica l FLEXPEN EACH MEAL Branch U-100 AND INSULIN) SLIDING 100 unit/mL SCALE. MAX (3 mL) DAILY DOSE injection OF 40 UNITS insulin 2020-03- No [id number] INJECT 10 Univers aspart 04-21 04-03 UNITS ity of U-100 00:00: 00:00 [facility] [place] (NOVOLOG 00 :00 US BEFORE Medica l FLEXPEN EACH MEAL Branch U-100 AND INSULIN) SLIDING 100 unit/mL SCALE. MAX (3 mL) DAILY DOSE injection OF 40 UNITS metoprolol 2020-03 Yes 12.5mg Take 0.5 U nivers tartrate 25 2-03 tablets by it y of mg tablet 00:00: mouth [place] (two) Medical times Branch daily. metoprolol 2020-03 Yes 12.5mg Take 0.5 U nivers tartrate 25 2-03 tablets by it y of mg tablet 00:00: mouth (two) Medical times Branch daily. metoprolol 2020-03 Yes 12.5mg Take 0.5 U nivers tartrate 25 2-03 tablets by it y of mg tablet 00:00: mouth [place] (two) Medical times Branch daily. metoprolol 2020-03 Yes 12.5mg Take 0.5 U nivers tartrate 25 2-03 tablets by it y of mg tablet 00:00: [facility] [place] (two) Medical times Branch daily. metoprolol 2020-03 Yes 12.5mg Take 0.5 U nivers tartrate 25 2-03 tablets by it y of mg tablet 00:00: [facility] [place] (two) Medical times Branch daily. metoprolol 2020-03 Yes 12.5mg Take 0.5 U nivers tartrate 25 2-03 tablets by it y of mg tablet 00:00: mouth [place] (two) Medical times Branch daily. metoprolol 2020-03 Yes 12.5mg Take 0.5 U nivers tartrate 25 2-03 tablets by it y of mg tablet 00:00: mouth [place] (two) Medical times Branch daily. metoprolol 2020-03 Yes 12.5mg Take 0.5 U nivers tartrate 25 2-03 tablets by it y of mg tablet 00:00: mouth [place] (two) Medical times Branch daily. metoprolol 2021-1 Yes 12.5mg Take 0.5 U nivers tartrate [...] it y of mg tablet 00:00: mouth [place] (two) Medical times Branch daily. metoprolol 2020-03 Yes 12.5mg Take 0.5 U nivers tartrate 25 2-03 tablets by it y of mg tablet 00:00: mouth (two) Medical times Branch daily. metoprolol 2020-03 Yes 12.5mg Take 0.5 U nivers tartrate 25 2-03 tablets by it y of mg tablet 00:00: mouth [place] (two) Medical times Branch daily. metoprolol 2020-03 Yes 12.5mg Take 0.5 U nivers tartrate 25 2-03 tablets by it y of mg tablet 00:00: mouth [place] (two) Medical times Branch daily. metoprolol 2020-03 Yes 12.5mg Take 0.5 U nivers tartrate 25 2-03 tablets by it y of mg tablet 00:00: mouth [place] (two) Medical times Branch daily. metoprolol 2020-03 Yes 12.5mg Take 0.5 U nivers tartrate 25 2-03 tablets by it y of mg tablet 00:00: mouth [place] (two) Medical times Branch daily. metoprolol 2020-03 Yes 12.5mg Take 0.5 U nivers tartrate 25 2-03 tablets by it y of mg tablet 00:00: mouth [place] (two) Medical times Branch daily. metoprolol 2020-03 Yes 12.5mg Take 0.5 U nivers tartrate 25 2-03 tablets by it y of mg tablet 00:00: mouth [place] (two) Medical times Branch daily. Dextran 2020-03 [...] (ARTIFICIAL 33 as needed. Me dical TEARS) [facility] methotrexat 2020-03 Yes 20mg Take 20 mg Univers e 5 mg 0-29 by mouth ity of tablet 13:25: weekly. [address] Dextran 2020-03 Yes 1[drp] Place 1 Unive rs 70-Hypromel 0-29 Drop in ity o f lose 13:25: both eyes [place] (ARTIFICIAL 33 as needed. Me dical TEARS) [facility] methotrexat 2020-03 Yes 20mg Take 20 mg Univers e 5 mg 0-29 by mouth ity of tablet 13:25: weekly. [address] Dextran 2020-03 Yes 1[drp] Place 1 Unive rs 70-Hypromel 0-29 Drop in ity o f lose 13:25: both eyes [place] (ARTIFICIAL 33 as needed. Me dical TEARS) [facility] Yes 20mg Take 20 mg Univers e 5 mg 0-29 by mouth ity of tablet 13:25: weekly. [address] Dextran 2020-03 Yes 1[drp] Place 1 Unive rs 70-Hypromel 0-29 Drop in ity o f lose 13:25: both eyes [place] (ARTIFICIAL 33 as needed. Me dical TEARS) [facility] methotrexat 2020-03 Yes 20mg Take 20 mg Univers e 5 mg 0-29 by mouth ity of tablet 13:25: weekly. [address] Dextran 2020-03 Yes 1[drp] Place 1 Unive rs 70-Hypromel 0-29 Drop in ity o f lose 13:25: both eyes [place] (ARTIFICIAL 33 as needed. Me dical TEARS) [facility] Yes 20mg Take 20 mg Univers e 5 mg 0-29 by mouth ity of tablet 13:25: weekly. [address] Dextran 2020-03 Yes 1[drp] Place 1 Unive rs 70-Hypromel 0-29 Drop in ity o f lose 13:25: both eyes [place] (ARTIFICIAL 33 as needed. Me dical TEARS) [facility] Yes 20mg Take 20 mg Univers e 5 mg 0-29 by mouth ity of tablet 13:25: weekly. [address] Dextran 2020-03 Yes 1[drp] Place 1 Unive rs 70-Hypromel 0-29 Drop in ity o f lose 13:25: both eyes [place] (ARTIFICIAL 33 as needed. Me dical TEARS) [facility] methotrexat 2020-03 Yes 20mg Take 20 mg Univers e 5 mg 0-29 by mouth ity of tablet 13:25: weekly. [address] Dextran 2020-03 Yes 1[drp] Place 1 Unive rs 70-Hypromel 0-29 Drop in ity o f lose 13:25: both eyes [place] (ARTIFICIAL 33 as needed. Me dical TEARS) [facility] methotrexat 2020-03 Yes 20mg Take 20 mg Univers e 5 mg 0-29 by mouth ity of tablet 13:25: weekly. [address] Dextran 2020-03 Yes 1[drp] Place 1 Unive rs 70-Hypromel 0-29 Drop in ity o f lose 13:25: both eyes [place] (ARTIFICIAL 33 as needed. Me dical TEARS) [facility] methotrexat 2020-03 Yes 20mg Take 20 mg Univers e 5 mg 0-29 by mouth ity of tablet 13:25: weekly. [address] Dextran 2020-03 Yes 1[drp] Place 1 Unive rs 70-Hypromel 0-29 Drop in ity o f lose 13:25: both eyes [place] (ARTIFICIAL 33 as needed. Me dical TEARS) [facility] methotrexat 2020-03 Yes 20mg Take 20 mg Univers e 5 mg 0-29 by mouth ity of tablet 13:25: weekly. [address] Dextran 2020-03 Yes 1[drp] Place 1 Unive rs 70-Hypromel 0-29 Drop in ity o f lose 13:25: both eyes [place] (ARTIFICIAL 33 as needed. Me dical TEARS) [facility] methotrexat 2020-03 Yes 20mg Take 20 mg Univers e 5 mg 0-29 by mouth ity of tablet 13:25: weekly. [address] Dextran 2020-03 Yes 1[drp] Place 1 Unive rs 70-Hypromel 0-29 Drop in ity o f lose 13:25: both eyes [place] (ARTIFICIAL 33 as needed. Me dical TEARS) [facility] methotrexat 2020-03 Yes 20mg Take 20 mg Univers e 5 mg 0-29 by mouth ity of tablet 13:25: weekly. [address] Dextran 2020-03 Yes 1[drp] Place 1 Unive rs 70-Hypromel 0-29 Drop in ity o f lose 13:25: both eyes [place] (ARTIFICIAL 33 as needed. Me dical TEARS) [facility] methotrexat 2020-03 Yes 20mg Take 20 mg Univers e 5 mg 0-29 by mouth ity of tablet 13:25: weekly. [address] Dextran 2020-03 Yes 1[drp] Place 1 Unive rs 70-Hypromel 0-29 Drop in ity o f lose 13:25: both eyes [place] (ARTIFICIAL 33 as needed. Me dical TEARS) [facility] methotrexat 2020-03 Yes 20mg Take 20 mg Univers e 5 mg 0-29 by mouth ity of tablet 13:25: weekly. [address] Dextran 2020-03 Yes 1[drp] Place 1 Unive rs 70-Hypromel 0-29 Drop in ity o f lose 13:25: both eyes [place] (ARTIFICIAL 33 as needed. Me dical TEARS) [facility] methotrexat 2020-03 Yes 20mg Take 20 mg Univers e 5 mg 0-29 by mouth ity of tablet 13:25: weekly. [address] Dextran 2020-03 Yes 1[drp] Place 1 Unive rs 70-Hypromel 0-29 Drop in ity o f lose 13:25: both eyes [place] (ARTIFICIAL 33 as needed. Me dical TEARS) [facility] methotrexat 2020-03 Yes 20mg Take 20 mg Univers e 5 mg 0-29 by mouth ity of tablet 13:25: weekly. [address] Dextran 2020-03 Yes 1[drp] Place 1 Unive rs 70-Hypromel 0-29 Drop in ity o f lose 13:25: both eyes [place] (ARTIFICIAL 33 as needed. Me dical TEARS) [facility] methotrexat 2020-03 Yes 20mg Take 20 mg Univers e 5 mg 0-29 by mouth ity of tablet 13:25: weekly. [address] Dextran 2020-03 Yes 1[drp] Place 1 Unive rs 70-Hypromel 0-29 Drop in ity o f lose 13:25: both eyes [place] (ARTIFICIAL 33 as needed. Me dical TEARS) [facility] Yes 20mg Take 20 mg Univers e 5 mg 0-29 by mouth ity of tablet 13:25: weekly. [address] Dextran 2020-03 Yes 1[drp] Place 1 Unive rs 70-Hypromel 0-29 Drop in ity o f lose 13:25: both eyes [place] (ARTIFICIAL 33 as needed. Me dical TEARS) [facility] Yes 20mg Take 20 mg Univers e 5 mg 0-29 by mouth ity of tablet 13:25: weekly. [address] Dextran 2020-03 Yes 1[drp] Place 1 Unive rs 70-Hypromel 0-29 Drop in ity o f lose 13:25: both eyes [place] (ARTIFICIAL 33 as needed. Me dical TEARS) [facility] Yes 20mg Take 20 mg Univers e 5 mg 0-29 by mouth ity of tablet 13:25: weekly. [address] Dextran 2020-03 Yes 1[drp] Place 1 Unive rs 70-Hypromel 0-29 Drop in ity o f lose 13:25: both eyes [place] (ARTIFICIAL 33 as needed. Me dical TEARS) [facility] Yes 20mg Take 20 mg Univers e 5 mg 0-29 by mouth ity of tablet 13:25: weekly. [address] Dextran 2020-03 Yes 1[drp] Place 1 Unive rs 70-Hypromel 0-29 Drop in ity o f lose 13:25: both eyes [place] (ARTIFICIAL 33 as needed. Me dical TEARS) [facility] Yes 20mg Take 20 mg Univers e 5 mg 0-29 by mouth ity of tablet 13:25: weekly. [address] Dextran 2020-03 Yes 1[drp] Place 1 Unive rs 70-Hypromel 0-29 Drop in ity o f lose 13:25: both eyes [place] (ARTIFICIAL 33 as needed. Me dical TEARS) [facility] Yes 20mg Take 20 mg Univers e 5 mg 0-29 by mouth ity of tablet 13:25: weekly. [address] Dextran 2020-03 Yes 1[drp] Place 1 Unive rs 70-Hypromel 0-29 Drop in ity o f lose 13:25: both eyes [place] (ARTIFICIAL 33 as needed. Me dical TEARS) [facility] Branch methotrexat 2020-03 Yes 20mg Take 20 mg Univers e 5 mg 0-29 by mouth ity of tablet 13:25: weekly. [address] Dextran 2020-03 Yes 1[drp] Place 1 Unive rs 70-Hypromel 0-29 Drop in ity o f lose 13:25: both eyes [place] (ARTIFICIAL 33 as needed. Me dical TEARS) [facility] methotrexat 2020-03 Yes 20mg Take 20 mg Univers e 5 mg 0-29 by mouth ity of tablet 13:25: weekly. [address] Dextran 2020-03 Yes 1[drp] Place 1 Unive rs 70-Hypromel 0-29 Drop in ity o f lose 13:25: both eyes [place] (ARTIFICIAL 33 as needed. Me dical TEARS) [facility] methotrexat 2020-03 Yes 20mg Take 20 mg Univers e 5 mg 0-29 by mouth ity of tablet 13:25: weekly. [address] foLIC acid 2020-03 Yes 1mg Take 1 mg Un alex 1 mg tablet 0-29 by mouth ity of 13:15: daily. [place] [id number] except on Medical date of Branch methotrexa te foLIC acid 2020-03 Yes 1mg Take 1 mg Un alex 1 mg tablet 0-29 by mouth ity of 13:15: daily. [place] 17 except on Medical date of Branch methotrexa te foLIC acid 2020-03 Yes 1mg Take 1 mg Un alex 1 mg tablet 0-29 by mouth ity of 13:15: daily. [place] 17 except on Medical date of Branch methotrexa te foLIC acid 2020-03 Yes 1mg Take 1 mg Un alex 1 mg tablet 0-29 by mouth ity of 13:15: daily. [place] 17 except on Medical date of Branch methotrexa te foLIC acid 2020-03 Yes 1mg Take 1 mg Un alex 1 mg tablet 0-29 by mouth ity of 13:15: daily. [place] 17 except on Medical date of Branch methotrexa te foLIC acid 2020-03 Yes 1mg Take 1 mg Un alex 1 mg tablet 0-29 by mouth ity of 13:15: daily. [place] 17 except on Medical date of Branch methotrexa te foLIC acid 2020-03 Yes 1mg Take 1 mg Un alex 1 mg tablet 0-29 by mouth ity of 13:15: daily. [place] 17 except on Medical date of Branch methotrexa te foLIC acid 2020-03 Yes 1mg Take 1 mg Un alex 1 mg tablet 0-29 by mouth ity of 13:15: daily. [place] 17 except on Medical date of Branch methotrexa te foLIC acid 2020-03 Yes 1mg Take 1 mg Un alex 1 mg tablet 0-29 by mouth ity of 13:15: daily. [place] 17 except on Medical date of Branch methotrexa te foLIC acid 2020-03 Yes 1mg Take 1 mg Un alex 1 mg tablet 0-29 by mouth ity of 13:15: daily. [place] 17 except on Medical date of Branch methotrexa te foLIC acid 2020-03 Yes 1mg Take 1 mg Un alex 1 mg tablet 0-29 by mouth ity of 13:15: daily. [place] 17 except on Medical date of Branch methotrexa te foLIC acid 2020-03 Yes 1mg Take 1 mg Un alex 1 mg tablet 0-29 by mouth ity of 13:15: daily. [place] 17 except on Medical date of Branch methotrexa te foLIC acid 2020-03 Yes 1mg Take 1 mg Un alex 1 mg tablet 0-29 by mouth ity of 13:15: daily. [place] 17 except on Medical date of Branch methotrexa te foLIC acid 2020-03 Yes 1mg Take 1 mg Un alex 1 mg tablet 0-29 by mouth ity of 13:15: daily. [place] 17 except on Medical date of Branch methotrexa te foLIC acid 2020-03 Yes 1mg Take 1 mg Un alex 1 mg tablet 0-29 by mouth ity of 13:15: daily. [place] 17 except on Medical date of Branch methotrexa te foLIC acid 2020-03 Yes 1mg Take 1 mg Un alex 1 mg tablet 0-29 by mouth ity of 13:15: daily. [place] 17 except on Medical date of Branch [...] of Branch methotrexa te DULoxetine 2020-03 Yes [id number] 20mg Take 1 U nivers 20 mg 0-29 capsule by ity of capsule 00:00: mouth [place] 00 every Medical morning. Branch DULoxetine 2020-03 Yes [id number] 20mg Take 1 U nivers 20 mg 0-29 capsule by ity of capsule 00:00: mouth [place] 00 every Medical morning. Branch DULoxetine 2020-03 Yes [id number] 20mg Take 1 U nivers 20 mg 0-29 capsule by ity of capsule 00:00: mouth [place] 00 every Medical morning. Branch DULoxetine 2020-03 Yes [id number] 20mg Take 1 U nivers 20 mg 0-29 capsule by ity of capsule 00:00: mouth [place] 00 every Medical morning. Branch DULoxetine 2020-03 Yes [id number] 20mg Take 1 U nivers 20 mg 0-29 capsule by ity of capsule 00:00: mouth [place] 00 every Medical morning. Branch DULoxetine 2020-03 Yes [id number] 20mg Take 1 U nivers 20 mg 0-29 capsule by ity of capsule 00:00: mouth [place] 00 every Medical morning. Branch DULoxetine 2020-03 Yes [id number] 20mg Take 1 U nivers 20 mg 0-29 capsule by ity of capsule 00:00: mouth [place] 00 every Medical morning. Branch DULoxetine 2020-03 Yes [id number] 20mg Take 1 U nivers 20 mg 0-29 capsule by ity of capsule 00:00: mouth [place] 00 every Medical morning. Branch DULoxetine 2020-03 Yes [id number] 20mg Take 1 U nivers 20 mg 0-29 capsule by ity of capsule 00:00: mouth [place] 00 every Medical morning. Branch DULoxetine 2020-03 Yes [id number] 20mg Take 1 U nivers 20 mg 0-29 capsule by ity of capsule 00:00: mouth [place] 00 every Medical morning. Branch DULoxetine 2020-03 Yes [id number] 20mg Take 1 U nivers 20 mg 0-29 capsule by ity of capsule 00:00: mouth [place] 00 every Medical morning. Branch DULoxetine 2020-03 Yes [id number] 20mg Take 1 U nivers 20 mg 0-29 capsule by ity of capsule 00:00: mouth [place] 00 every Medical morning. Branch DULoxetine 2020-03 Yes [id number] 20mg Take 1 U nivers 20 mg 0-29 capsule by ity of capsule 00:00: mouth [place] 00 every Medical morning. Branch DULoxetine 2020-03 Yes [id number] 20mg Take 1 U nivers 20 mg 0-29 capsule by ity of capsule 00:00: mouth [place] 00 every Medical morning. Branch DULoxetine 2020-03 Yes [id number] 20mg Take 1 U nivers 20 mg 0-29 capsule by ity of capsule 00:00: mouth [place] 00 every Medical morning. Branch DULoxetine 2020-03 Yes [id number] 20mg Take 1 U nivers 20 mg 0-29 capsule by ity of capsule 00:00: mouth [place] 00 every Medical morning. Branch DULoxetine 2020-03 Yes [id number] 20mg Take 1 U nivers 20 mg 0-29 capsule by ity of capsule 00:00: mouth [place] 00 every Medical morning. Branch DULoxetine 2020-03 Yes [id number] 20mg Take 1 U nivers 20 mg 0-29 capsule by ity of capsule 00:00: mouth [place] 00 every Medical morning. Branch DULoxetine 2020-03 Yes [id number] 20mg Take 1 U nivers 20 mg 0-29 capsule by ity of capsule 00:00: mouth [place] 00 every Medical morning. Branch DULoxetine 2020-03 Yes [id number] 20mg Take 1 U nivers 20 mg 0-29 capsule by ity of capsule 00:00: mouth [place] 00 every Medical morning. Branch DULoxetine 2020-03 Yes [id number] 20mg Take 1 U nivers 20 mg 0-29 capsule by ity of capsule 00:00: mouth [place] 00 every Medical morning. Branch DULoxetine 2020-03 Yes [id number] 20mg Take 1 U nivers 20 mg 0-29 capsule by ity of capsule 00:00: mouth [place] 00 every Medical morning. Branch DULoxetine 2020-03 Yes [id number] 20mg Take 1 U nivers 20 mg 0-29 capsule by ity of capsule 00:00: mouth [place] 00 every Medical morning. Branch DULoxetine 2020-03 Yes [id number] 20mg Take 1 U nivers 20 mg 0-29 capsule by ity of capsule 00:00: mouth [place] 00 every Medical morning. Branch DULoxetine 2020-03 Yes [id number] 20mg Take 1 U nivers 20 mg 0-29 capsule by ity of capsule 00:00: mouth [place] 00 every Medical morning. Branch DULoxetine 2020-03 Yes [id number] 20mg Take 1 U nivers 20 mg 0-29 capsule by ity of capsule 00:00: mouth [place] 00 every Medical morning. Branch DULoxetine 2020-03 Yes [id number] 20mg Take 1 U nivers 20 mg 0-29 capsule by ity of capsule 00:00: mouth [place] 00 every Medical morning. Branch empaglifloz 2020-03 Yes [id number] 1{tbl} Take 1 Univers in-metformi 0-11 tablet by ity of n (SYNJARDY 00:00: mouth [place] XR) 00 daily. Medical 25-1,000 mg Branch TBph Insulin 2020-03 Yes [id number] Use as Univ ers [place], 0-11 directed 4 ity o f Disposable, 00:00: times [place] (PEN 00 daily. Medical NEEDLES) 31 E11.65 Branch gauge x 1/4" Ndle empaglifloz 2020-03 Yes [id number] 1{tbl} Take 1 Univers in-metformi 0-11 tablet by ity of n (SYNJARDY 00:00: mouth [place] XR) 00 daily. Medical 25-1,000 mg Branch TBph Insulin 2020-03 Yes [id number] Use as Univ ers [place], 0-11 directed 4 ity o f Disposable, 00:00: times [place] (PEN 00 daily. Medical NEEDLES) 31 E11.65 Branch gauge x 1/4" Ndle empaglifloz 2020-03 Yes [id number] 1{tbl} Take 1 Univers in-metformi 0-11 tablet by ity of n (SYNJARDY 00:00: mouth [place] XR) 00 daily. Medical 25-1,000 mg Branch TBph Insulin 2020-03 Yes [id number] Use as Univ ers [place], 0-11 directed 4 ity o f Disposable, 00:00: times [place] (PEN 00 daily. Medical NEEDLES) 31 E11.65 Branch gauge x 1/4" Ndle Insulin 2020-03 Yes [id number] Use as Univ ers [place], 0-11 directed 4 ity o f Disposable, 00:00: times [place] (PEN 00 daily. Medical NEEDLES) 31 E11.65 Branch gauge x 1/4" Ndle Insulin 2020-03 Yes [id number] Use as Univ ers [place], 0-11 directed 4 ity o f Disposable, 00:00: times [place] (PEN 00 daily. Medical NEEDLES) 31 E11.65 Branch gauge x 1/4" Ndle Insulin 2020-03 Yes [id number] Use as Univ ers [place], 0-11 directed 4 ity o f Disposable, 00:00: times [place] (PEN 00 daily. Medical NEEDLES) 31 E11.65 Branch gauge x 1/4" Ndle Insulin 2020-03 Yes [id number] Use as Univ ers [place], 0-11 directed 4 ity o f Disposable, 00:00: times [place] (PEN 00 daily. Medical NEEDLES) 31 E11.65 Branch gauge x 1/4" Ndle Insulin 2020-03 Yes [id number] Use as Univ ers [place], 0-11 directed 4 ity o f Disposable, 00:00: times [place] (PEN 00 daily. Medical NEEDLES) 31 E11.65 Branch gauge x 1/4" Ndle Insulin 2020-03 Yes [id number] Use as Univ ers [place], 0-11 directed 4 ity o f Disposable, 00:00: times [place] (PEN 00 daily. Medical NEEDLES) 31 E11.65 Branch gauge x 1/4" Ndle Insulin 2020-03- No [id number] Use as Uni vers [place], 0-11 01-24 directed 4 ity of Disposable, 00:00: 00:[place] (PEN 00 :00 daily. Medical NEEDLES) 31 E11.65 Branch gauge x 1/4" Ndle empaglifloz 2020-03- No [id number] 1{tbl} Take 1 Univers in-metformi 0-11 12-12 tablet by it y of n (SYNJARDY 00:00: 00:[place] XR[place] 00 :00 daily. Medical 25-1,000 mg Branch TBph empaglifloz 2020-03- No [id number] 1{tbl} Take 1 Univers in-metformi 0-11 12-12 [...] 24 times Medical daily. Branch losartan 50 1-0 Yes 50mg Take 50 mg Univers mg tablet 9- by mouth 2 ity of 17:16: (two) [place] 24 times Medical daily. Branch losartan 50 1-0 Yes 50mg Take 50 mg Univers mg [...] 24 times Medical daily. Branch losartan 50 1-0 Yes 50mg Take 50 mg Univers mg tablet 9- by mouth 2 ity of 17:16: (two) [place] 24 times Medical daily. Branch losartan 50 1-0 Yes 50mg Take 50 mg Univers mg tablet 9- by mouth 2 ity of 17:16: (two) [place] 24 times Medical daily. Branch losartan 50 1-0 Yes 50mg Take 50 mg Univers mg tablet 9- by mouth 2 ity of 17:16: (two) [place] 24 times Medical daily. Branch losartan 50 1-0 Yes 50mg Take 50 mg Univers mg tablet 9- by mouth 2 ity of 17:16: (two) [place] 24 times Medical daily. Branch losartan 50 1-0 Yes 50mg Take 50 mg Univers mg [...] times Medical daily. Branch Blood-Gluco 2021-0 Yes [id number] Use as Univers se Sensor 8-04 directed ity of (DEXCOM G6 00:00: [place] SENSOR) 00 Medical Yolanda Branch Blood-Gluco 202-0 Yes [id number] Use as Univers se 8-04 directed ity of Transmitter 00:00: [place] (DEXCOM G6 00 Medical TRANSMITTER Branch ) Yolanda Blood-Gluco 2021-0 Yes [id number] Use as Univers se 8-04 directed ity of Meter,Josué 00:00: [place] nuous 00 Medical (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) Misc Blood-Gluco 2021-0 Yes [id number] Use as Univers se Sensor 8-04 directed ity of (DEXCOM G6 00:00: [place] SENSOR) 00 Medical Yolanda Branch Blood-Gluco 2021-0 Yes [id number] Use as Univers se 8-04 directed ity of Transmitter 00:00: [place] (DEXCOM G6 00 Medical TRANSMITTER Branch ) Yolanda Blood-Gluco 2021-0 Yes [id number] Use as Univers se 8-04 directed ity of Meter,Josué 00:00: [place] nuous 00 Medical (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) Misc Blood-Gluco 2021-0 Yes [id number] Use as Univers se Sensor 8-04 directed ity of (DEXCOM G6 00:00: [place] SENSOR) 00 Medical Yolanda Branch Blood-Gluco 2021-0 Yes [id number] Use as Univers se 8-04 directed ity of Transmitter 00:00: [place] (DEXCOM G6 00 Medical TRANSMITTER Branch ) Yolanda Blood-Gluco 2021-0 Yes [id number] Use as Univers se 8-04 directed ity of Meter,Josué 00:00: [place] nuous 00 Medical (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) Misc Blood-Gluco 2021-0 Yes [id number] Use as Univers se 8-04 directed ity of Transmitter 00:00: [place] (DEXCOM G6 00 Medical TRANSMITTER Branch ) Yolanda Blood-Gluco 2021-0 Yes [id number] Use as Univers se 8-04 directed ity of Meter,Josué 00:00: [place] nuous 00 Medical (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) Misc Blood-Gluco 2021-0 Yes [id number] Use as Univers se 8-04 directed ity of Transmitter 00:00: [place] (DEXCOM G6 00 Medical TRANSMITTER Branch ) Yolanda Blood-Gluco 2021-0 Yes [id number] Use as Univers se 8-04 directed ity of Meter,Josué 00:00: [place] nuous 00 Medical (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) Misc Blood-Gluco 2021-0 Yes [id number] Use as Univers se 8-04 directed ity of Transmitter 00:00: [place] (DEXCOM G6 00 Medical TRANSMITTER Branch ) Yolanda Blood-Gluco 2021-0 Yes [id number] Use as Univers se 8-04 directed ity of Meter,Josué 00:00: [place] nuous 00 Medical (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) Misc Blood-Gluco 2021-0 Yes [id number] Use as Univers se 8-04 directed ity of Transmitter 00:00: [place] (DEXCOM G6 00 Medical TRANSMITTER Branch ) Yolanda Blood-Gluco 2021-0 Yes [id number] Use as Univers se 8-04 directed ity of Meter,Josué 00:00: [place] nuous 00 Medical (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) Misc Blood-Gluco 2021-0 Yes [id number] Use as Univers se 8-04 directed ity of Transmitter 00:00: [place] (DEXCOM G6 00 Medical TRANSMITTER Branch ) Yolanda Blood-Gluco 2021-0 Yes [id number] Use as Univers se 8-04 directed ity of Meter,Josué 00:00: [place] nuous 00 Medical (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) Misc Blood-Gluco 2021-0 Yes [id number] Use as [facility] se 8-04 directed ity of Transmitter 00:00: [place] (DEXCOM G6 00 Medical TRANSMITTER Branch ) Yolanda Blood-Gluco 2021-0 Yes [id number] Use as [facility] se 8-04 directed ity of Meter,Josué 00:00: [place] nuous 00 Medical (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) Misc Blood-Gluco 2021-0 Yes [id number] Use as [facility] se 8-04 directed ity of Transmitter 00:00: [place] (DEXCOM G6 00 Medical TRANSMITTER Branch ) Yolanda Blood-Gluco 2021-0 Yes [id number] Use as [facility] se 8-04 directed ity of Meter,Josué 00:00: [place] nuous 00 Medical (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) Misc Blood-Gluco 2021-0 Yes [id number] Use as [facility] se 8-04 directed ity of Transmitter 00:00: [place] (DEXCOM G6 00 Medical TRANSMITTER Branch ) Yolanda Blood-Gluco 2021-0 Yes [id number] Use as [facility] se 8-04 directed ity of Meter,Josué 00:00: [place] nuous 00 Medical (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) Misc Blood-Gluco 2021-0 Yes [id number] Use as [facility] se 8-04 directed ity of Transmitter 00:00: [place] (DEXCOM G6 00 Medical TRANSMITTER Branch ) Y[facility]anda Blood-Gluco 202-0 Yes [id number] Use as [facility] se 8-04 directed ity of Meter,Josué 00:00: [place] nuous 00 Medical (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) Misc Blood-Gluco 2021-0 Yes [id number] Use as [facility] se 8-04 directed ity of Transmitter 00:00: [place] (DEXCOM G6 00 Medical TRANSMITTER Branch ) Yolanda Blood-Gluco 2021-0 Yes [id number] Use as [facility] se 8-04 directed ity of Meter,Josué 00:00: [place] nuous 00 Medical (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) Misc Blood-Gluco 2021-0 Yes [id number] Use as [facility] se 8-04 directed ity of Transmitter 00:00: [place] (DEXCOM G6 00 Medical TRANSMITTER Branch ) Yolanda Blood-Gluco 2021-0 Yes [id number] Use as [facility] se 8-04 directed ity of Meter,Josué 00:00: [place] nuous 00 Medical (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) Misc Blood-Gluco 2021-0 Yes [id number] Use as [facility] se 8-04 directed ity of Transmitter 00:00: [place] (DEXCOM G6 00 Medical TRANSMITTER Branch ) Y[facility]anda Blood-Gluco 2021-0 Yes [id number] Use as [facility] se 8-04 directed ity of Meter,Josué 00:00: [place] nuous 00 Medical (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) Misc Blood-Gluco 2021-0 Yes [id number] Use as [facility] se 8-04 directed ity of Transmitter 00:00: [place] (DEXCOM G6 00 Medical TRANSMITTER Branch ) Y[facility]anda Blood-Gluco 2021-0 Yes [id number] Use as [facility] se 8-04 directed ity of Meter,Josué 00:00: [place] nuous 00 Medical (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) Misc Blood-Gluco 2021-0 Yes [id number] Use as [facility] se 8-04 directed ity of Transmitter 00:00: [place] (DEXCOM G6 00 Medical TRANSMITTER Branch ) Y[facility]anda Blood-Gluco 2021-0 Yes [id number] Use as [facility] se 8-04 directed ity of Meter,Josué 00:00: [place] nuous 00 Medical (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) Misc Blood-Gluco 202-0 Yes [id number] Use as [facility] se 8-04 directed ity of Transmitter 00:00: [place] (DEXCOM G6 00 Medical TRANSMITTER Branch ) Y[facility]anda Blood-Gluco 202-0 Yes [id number] Use as [facility] se 8-04 directed ity of Meter,Josué 00:00: [place] nuous 00 Medical (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) Misc Blood-Gluco 2021-0 Yes [id number] Use as [facility] se 8-04 directed ity of Transmitter 00:00: [place] (DEXCOM G6 00 Medical TRANSMITTER Branch ) Y[facility]anda Blood-Gluco 202-0 Yes [id number] Use as [facility] se 8-04 directed ity of Meter,Josué 00:00: [place] nuous 00 Medical (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) Misc Blood-Gluco 2021-0 Yes [id number] Use as [facility] se 8-04 directed ity of Transmitter 00:00: [place] (DEXCOM G6 00 Medical TRANSMITTER Branch ) Y[facility]anda Blood-Gluco 2021-0 Yes [id number] Use as [facility] se 8-04 directed ity of Meter,Josué 00:00: [place] nuous 00 Medical (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) Misc Blood-Gluco 2021-0 Yes [id number] Use as [facility] se 8-04 directed ity of Transmitter 00:00: [place] (DEXCOM G6 00 Medical TRANSMITTER Branch ) Y[facility]anda Blood-Gluco 2021-0 Yes [id number] Use as [facility] se 8-04 directed ity of Transmitter 00:00: [place] (DEXCOM G6 00 Medical TRANSMITTER Branch ) Y[place] Blood-Gluco 202-0 Yes [id number] Use as [facility] se 8-04 directed ity of Transmitter 00:00: [place] (DEXCOM G6 00 Medical TRANSMITTER Branch ) Y[place]anda Blood-Gluco 202-0 Yes [id number] Use as [facility] se 8-04 directed ity of Transmitter 00:00: [place] (DEXCOM G6 00 Medical TRANSMITTER Branch ) Y[place] Blood-Gluco 202-0 Yes [id number] Use as [facility] se 8-04 directed ity of Transmitter 00:00: [place] (DEXCOM G6 00 Medical TRANSMITTER Branch ) O[place]anda Blood-Gluco 202-0 Yes [id number] Use as [facility] se 8-04 directed ity of Transmitter 00:00: [place] (DEXCOM G6 00 Medical TRANSMITTER Branch ) [facility] Blood-Gluco 2020-0 Yes [id number] Use as [facility] se 8-04 directed ity of Transmitter 00:00: [place] (DEXCOM G6 00 Medical TRANSMITTER Branch ) Y[facility]anda Blood-Gluco 2020-0 2023- No [id number] Use as Univers se 8-09-05 directed ity of Meter,Josué 00:00: 00:00 [place] nuous 00 :00 Medical (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 clopidogreL 2020-0 Yes [id number] 75mg Take 1 Univers (PLAVIX) 75 1-01 tablet by ity of mg tablet 00:00: mouth daily. Medical Branch aspirin 81 2020-0 Yes [id number] 81mg Take 1 [facility] mg chewable 1-01 tablet by ity of tablet 00:00: mouth daily. Medical Branch nitroglycer 2020-[id number] 1 [facility] in 0.4 mg 1-01 tablet ity of sublingual 00:00: under the [place] tablet 00 tongue Medical every 5 Branch (five) minutes as needed for Chest pain. clopidogreL 2020-0 Yes [id number] 75mg Take 1 [facility] (PLAVIX) 75 1-01 tablet by ity of mg tablet 00:00: mouth [place] 00 daily. Medical Branch aspirin 81 2020-0 Yes [id number] 81mg Take 1 [facility] mg chewable 1-01 tablet by ity of tablet 00:00: mouth [place] 00 daily. Medical Branch nitroglycer 2020-[id number] 1 [facility] in 0.4 mg 1-01 tablet ity of sublingual 00:00: under the [place] tablet 00 tongue Medical every 5 Branch (five) minutes as needed for Chest pain. clopidogreL 2020-0 Yes [id number] 75mg Take 1 [facility] (PLAVIX) 75 1-01 tablet by ity of mg tablet 00:00: mouth [place] 00 daily. Medical Branch aspirin 81 0 Yes [id number] 81mg Take 1 [facility] mg chewable 1-01 tablet by ity of tablet 00:00: mouth [place] 00 daily. Medical Branch nitroglycer 2020-[id number] 1 [facility] in 0.4 mg 1-01 tablet ity of sublingual 00:00: under the [place] tablet 00 tongue Medical every 5 Branch (five) minutes as needed for Chest pain. clopidogreL 2020-0 Yes [id number] 75mg Take 1 [facility] (PLAVIX) 75 1-01 tablet by ity of mg tablet 00:00: mouth [place] 00 daily. Medical Branch aspirin 81 2020-0 Yes [id number] 81mg Take 1 [facility] mg chewable 1-01 tablet by ity of tablet 00:00: mouth [place] 00 daily. Medical Branch nitroglycer 2020-[id number] 1 [facility] in 0.4 mg 1-01 tablet ity of sublingual 00:00: under the [place] tablet 00 tongue Medical every 5 Branch (five) minutes as needed for Chest pain. clopidogreL 2020-0 Yes [id number] 75mg Take 1 [facility] (PLAVIX) 75 1-01 tablet by ity of mg tablet 00:00: mouth [place] 00 daily. Medical Branch aspirin 81 2020-0 Yes [id number] 81mg Take 1 [facility] mg chewable 1-01 tablet by ity of tablet 00:00: mouth [place] 00 daily. Medical Branch nitroglycer 2020-[id number] 1 [facility] in 0.4 mg 1-01 tablet ity of sublingual 00:00: under the [place] tablet 00 tongue Medical every 5 Branch (five) minutes as needed for Chest pain. clopidogreL 2020-0 Yes [id number] 75mg Take 1 [facility] (PLAVIX) 75 1-01 tablet by ity of mg tablet 00:00: mouth [place] 00 daily. Medical Branch aspirin 81 2020-0 Yes [id number] 81mg Take 1 [facility] mg chewable 1-01 tablet by ity of tablet 00:00: mouth [place] 00 daily. Medical Branch nitroglycer [id number] 1 [facility] in 0.4 mg 1-01 tablet ity of sublingual 00:00: under the [place] tablet 00 tongue Medical every 5 Branch (five) minutes as needed for Chest pain. clopidogreL 2020-0 Yes [id number] 75mg Take 1 [facility] (PLAVIX) 75 1-01 tablet by ity of mg tablet 00:00: mouth [place] 00 daily. Medical Branch aspirin 81 2020-0 Yes [id number] 81mg Take 1 [facility] mg chewable 1-01 tablet by ity of tablet 00:00: mouth [place] 00 daily. Medical Branch nitroglycer [id number] 1 [facility] in 0.4 mg 1-01 tablet ity of sublingual 00:00: under the [place] tablet 00 tongue Medical every 5 Branch (five) minutes as needed for Chest pain. clopidogreL 2020-0 Yes [id number] 75mg Take 1 [facility] (PLAVIX) 75 1-01 tablet by ity of mg tablet 00:00: mouth [place] 00 daily. Medical Branch aspirin 81 2020-0 Yes [id number] 81mg Take 1 [facility] mg chewable 1-01 tablet by ity of tablet 00:00: mouth [place] 00 daily. Medical Branch nitroglycer 2020-[id number] 1 [facility] in 0.4 mg 1-01 tablet ity of sublingual 00:00: under the [place] tablet 00 tongue Medical every 5 Branch (five) minutes as needed for Chest pain. clopidogreL 2021-0 Yes [id number] 75mg Take 1 [facility] (PLAVIX) 75 1-01 tablet by ity of mg tablet 00:00: mouth [place] 00 daily. Medical Branch aspirin 81 0 Yes [id number] 81mg Take 1 [facility] mg chewable 1-01 tablet by ity of tablet 00:00: mouth [place] 00 daily. Medical Branch nitroglycer 2020-[id number] 1 [facility] in 0.4 mg 1-01 tablet ity of sublingual 00:00: under the [place] tablet 00 tongue Medical every 5 Branch (five) minutes as needed for Chest pain. clopidogreL 0 Yes [id number] 75mg Take 1 [facility] (PLAVIX) 75 1-01 tablet by ity of mg tablet 00:00: mouth [place] 00 daily. Medical Branch aspirin 81 0 Yes [id number] 81mg Take 1 [facility] mg chewable 1-01 tablet by ity of tablet 00:00: mouth [place] 00 daily. Medical Branch nitroglycer [id number] 1 [facility] in 0.4 mg 1-01 tablet ity of sublingual 00:00: under the [place] tablet 00 tongue Medical every 5 Branch (five) minutes as needed for Chest pain. clopidogreL 0 Yes [id number] 75mg Take 1 [facility] (PLAVIX) 75 1-01 tablet by ity of mg tablet 00:00: mouth [place] 00 daily. Medical Branch aspirin 81 0 Yes [id number] 81mg Take 1 [facility] mg chewable 1-01 tablet by ity of tablet 00:00: mouth [place] 00 daily. Medical Branch nitroglycer [id number] 1 [facility] in 0.4 mg 1-01 tablet ity of sublingual 00:00: under the [place] tablet 00 tongue Medical every 5 Branch (five) minutes as needed for Chest pain. clopidogreL 2020-0 Yes [id number] 75mg Take 1 [facility] (PLAVIX) 75 1-01 tablet by ity of mg tablet 00:00: mouth [place] 00 daily. Medical Branch aspirin 81 2020-0 Yes [id number] 81mg Take 1 [facility] mg chewable 1-01 tablet by ity of tablet 00:00: mouth [place] 00 daily. Medical Branch nitroglycer [id number] 1 [facility] in 0.4 mg 1-01 tablet ity of sublingual 00:00: under the [place] tablet 00 tongue Medical every 5 Branch (five) minutes as needed for Chest pain. clopidogreL 2020-0 Yes [id number] 75mg Take 1 [facility] (PLAVIX) 75 1-01 tablet by ity of mg tablet 00:00: mouth [place] 00 daily. Medical Branch aspirin 81 0 Yes [id number] 81mg Take 1 [facility] mg chewable 1-01 tablet by ity of tablet 00:00: mouth [place] 00 daily. Medical Branch nitroglycer [id number] 1 [facility] in 0.4 mg 1-01 tablet ity of sublingual 00:00: under the [place] tablet 00 tongue Medical every 5 Branch (five) minutes as needed for Chest pain. clopidogreL 2020-0 Yes [id number] 75mg Take 1 [facility] (PLAVIX) 75 1-01 tablet by ity of mg tablet 00:00: mouth [place] 00 daily. Medical Branch aspirin 81 2020-0 Yes [id number] 81mg Take 1 [facility] mg chewable 1-01 tablet by ity of tablet 00:00: mouth [place] 00 daily. Medical Branch nitroglycer [id number] 1 [facility] in 0.4 mg 1-01 tablet ity of sublingual 00:00: under the [place] tablet 00 tongue Medical every 5 Branch (five) minutes as needed for Chest pain. clopidogreL 2020-0 Yes [id number] 75mg Take 1 [facility] (PLAVIX) 75 1-01 tablet by ity of mg tablet 00:00: mouth [place] 00 daily. Medical Branch aspirin 81 2020-0 Yes [id number] 81mg Take 1 [facility] mg chewable 1-01 tablet by ity of tablet 00:00: mouth [place] 00 daily. Medical Branch nitroglycer 2020-[id number] 1 [facility] in 0.4 mg 1-01 tablet ity of sublingual 00:00: under the [place] tablet 00 tongue Medical every 5 Branch (five) minutes as needed for Chest pain. clopidogreL 2020-0 Yes [id number] 75mg Take 1 [facility] (PLAVIX) 75 1-01 tablet by ity of mg tablet 00:00: mouth [place] 00 daily. Medical Branch aspirin 81 2021-0 Yes [id number] 81mg Take 1 [facility] mg chewable 1-01 tablet by ity of tablet 00:00: mouth [place] 00 daily. Medical Branch nitroglycer 2020-[id number] 1 [facility] in 0.4 mg 1-01 tablet ity of sublingual 00:00: under the [place] tablet 00 tongue Medical every 5 Branch (five) minutes as needed for Chest pain. clopidogreL 2020-0 Yes [id number] 75mg Take 1 [facility] (PLAVIX) 75 1-01 tablet by ity of mg tablet 00:00: mouth [place] 00 daily. Medical Branch aspirin 81 2020-0 Yes [id number] 81mg Take 1 [facility] mg chewable 1-01 tablet by ity of tablet 00:00: mouth [place] 00 daily. Medical Branch nitroglycer 2020-[id number] 1 [facility] in 0.4 mg 1-01 tablet ity of sublingual 00:00: under the [place] tablet 00 tongue Medical every 5 Branch (five) minutes as needed for Chest pain. clopidogreL 2020-0 Yes [id number] 75mg Take 1 [facility] (PLAVIX) 75 1-01 tablet by ity of mg tablet 00:00: mouth [place] 00 daily. Medical Branch aspirin 81 2020-0 Yes [id number] 81mg Take 1 [facility] mg chewable 1-01 tablet by ity of tablet 00:00: mouth [place] 00 daily. Medical Branch nitroglycer 2020-[id number] 1 [facility] in 0.4 mg 1-01 tablet ity of sublingual 00:00: under the [place] tablet 00 tongue Medical every 5 Branch (five) minutes as needed for Chest pain. clopidogreL 2020-0 Yes [id number] 75mg Take 1 [facility] (PLAVIX) 75 1-01 tablet by ity of mg tablet 00:00: mouth [place] 00 daily. Medical Branch aspirin 81 2020-0 Yes [id number] 81mg Take 1 [facility] mg chewable 1-01 tablet by ity of tablet 00:00: mouth [place] 00 daily. Medical Branch nitroglycer 2020-[id number] 1 [facility] in 0.4 mg 1-01 tablet ity of sublingual 00:00: under the [place] tablet 00 tongue Medical every 5 Branch (five) minutes as needed for Chest pain. clopidogreL 2020-0 Yes [id number] 75mg Take 1 [facility] (PLAVIX) 75 1-01 tablet by ity of mg tablet 00:00: mouth [place] 00 daily. Medical Branch aspirin 81 0 Yes [id number] 81mg Take 1 [facility] mg chewable 1-01 tablet by ity of tablet 00:00: mouth [place] 00 daily. Medical Branch nitroglycer [id number] 1 [facility] in 0.4 mg 1-01 tablet ity of sublingual 00:00: under the [place] tablet 00 tongue Medical every 5 Branch (five) minutes as needed for Chest pain. clopidogreL 0 Yes [id number] 75mg Take 1 [facility] (PLAVIX) 75 1-01 tablet by ity of mg tablet 00:00: mouth [place] 00 daily. Medical Branch aspirin 81 0 Yes [id number] 81mg Take 1 [facility] mg chewable 1-01 tablet by ity of tablet 00:00: mouth [place] 00 daily. Medical Branch nitroglycer [id number] 1 [facility] in 0.4 mg 1-01 tablet ity of sublingual 00:00: under the [place] tablet 00 tongue Medical every 5 Branch (five) minutes as needed for Chest pain. clopidogreL 0 Yes [id number] 75mg Take 1 [facility] (PLAVIX) 75 1-01 tablet by ity of mg tablet 00:00: mouth [place] 00 daily. Medical Branch aspirin 81 0 Yes [id number] 81mg Take 1 [facility] mg chewable 1-01 tablet by ity of tablet 00:00: mouth [place] 00 daily. Medical Branch nitroglycer [id number] 1 [facility] in 0.4 mg 1-01 tablet ity of sublingual 00:00: under the [place] tablet 00 tongue Medical every 5 Branch (five) minutes as needed for Chest pain. clopidogreL 0 Yes [id number] 75mg Take 1 [facility] (PLAVIX) 75 1-01 tablet by ity of mg tablet 00:00: mouth [place] 00 daily. Medical Branch aspirin 81 0 Yes [id number] 81mg Take 1 [facility] mg chewable 1-01 tablet by ity of tablet 00:00: mouth [place] 00 daily. Medical Branch nitroglycer [id number] 1 [facility] in 0.4 mg 1-01 tablet ity of sublingual 00:00: under the [place] tablet 00 tongue Medical every 5 Branch (five) minutes as needed for Chest pain. clopidogreL 0 Yes [id number] 75mg Take 1 [facility] (PLAVIX) 75 1-01 tablet by ity of mg tablet 00:00: mouth [place] 00 daily. Medical Branch aspirin 81 0 Yes [id number] 81mg Take 1 [facility] mg chewable 1-01 tablet by ity of tablet 00:00: mouth [place] 00 daily. Medical Branch nitroglycer [id number] 1 [facility] in 0.4 mg 1-01 tablet ity of sublingual 00:00: under the [place] tablet 00 tongue Medical every 5 Branch (five) minutes as needed for Chest pain. clopidogreL 0 Yes [id number] 75mg Take 1 [facility] (PLAVIX) 75 1-01 tablet by ity of mg tablet 00:00: mouth [place] 00 daily. Medical Branch aspirin 81 0 Yes [id number] 81mg Take 1 [facility] mg chewable 1-01 tablet by ity of tablet 00:00: mouth [place] 00 daily. Medical Branch nitroglycer [id number] 1 [facility] in 0.4 mg 1-01 tablet ity of sublingual 00:00: under the [place] tablet 00 tongue Medical every 5 Branch (five) minutes as needed for Chest pain. clopidogreL 0 Yes [id number] 75mg Take 1 [facility] (PLAVIX) 75 1-01 tablet by ity of mg tablet 00:00: mouth [place] 00 daily. Medical Branch aspirin 81 0 Yes [id number] 81mg Take 1 [facility] mg chewable 1-01 tablet by ity of tablet 00:00: mouth [place] 00 daily. Medical Branch nitroglycer 2020-[id number] 1 [facility] in 0.4 mg 1-01 tablet ity of sublingual 00:00: under the [place] tablet 00 tongue Medical every 5 Branch (five) minutes as needed for Chest pain. clopidogreL 2020-0 Yes [id number] 75mg Take 1 [facility] (PLAVIX) 75 1-01 tablet by ity of mg tablet 00:00: mouth [place] 00 daily. Medical Branch aspirin 81 2020-0 Yes [id number] 81mg Take 1 [facility] mg chewable 1-01 tablet by ity of tablet 00:00: mouth [place] 00 daily. Medical Branch tofacitinib 2018-03 Yes [id number] 11mg Take 11 mg [facility] (XELJANZ 2-18 by mouth ity of XR) 11 mg 00:00: daily. [address] tofacitinib 2018-03 Yes [id number] 11mg Take 11 mg Univers (XELJANZ 2-18 by mouth ity of XR) 11 mg 00:00: daily. [address] tofacitinib 2018-03 Yes [id number] 11mg Take 11 mg Univers (XELJANZ 2-18 by mouth ity of XR) 11 mg 00:00: daily. [address] tofacitinib 2018-03 Yes [id number] 11mg Take 11 mg Univers (XELJANZ 2-18 by mouth ity of XR) 11 mg 00:00: daily. [address] tofacitinib 2018-03 Yes [id number] 11mg Take 11 mg Univers (XELJANZ 2-18 by mouth ity of XR) 11 mg 00:00: daily. [address] tofacitinib 2018-03 Yes [id number] 11mg Take 11 mg Univers (XELJANZ 2-18 by mouth ity of XR) 11 mg 00:00: daily. [address] tofacitinib 2018-03 Yes [id number] 11mg Take 11 mg Univers (XELJANZ 2-18 by mouth ity of XR) 11 mg 00:00: daily. [address] tofacitinib 2018-03 Yes [id number] 11mg Take 11 mg Univers (XELJANZ 2-18 by mouth ity of XR) 11 mg 00:00: daily. [address] tofacitinib 2018-03 Yes [id number] 11mg Take 11 mg Univers (XELJANZ 2-18 by mouth ity of XR) 11 mg 00:00: daily. [address] tofacitinib 2018-03 Yes [id number] 11mg Take 11 mg Univers (XELJANZ 2-18 by mouth ity of XR) 11 mg 00:00: daily. [address] tofacitinib 2018-03 Yes [id number] 11mg Take 11 mg Univers (XELJANZ 2-18 by mouth ity of XR) 11 mg 00:00: daily. [address] tofacitinib 2018-03 Yes [id number] 11mg Take 11 mg Univers (XELJANZ 2-18 by mouth ity of XR) 11 mg 00:00: daily. [address] tofacitinib 2018-03 Yes [id number] 11mg Take 11 mg Univers (XELJANZ 2-18 by mouth ity of XR) 11 mg 00:00: daily. [address] tofacitinib 2018-03 Yes [id number] 11mg Take 11 mg Univers (XELJANZ 2-18 by mouth ity of XR) 11 mg 00:00: daily. [address] tofacitinib 2018-03 Yes [id number] 11mg Take 11 mg Univers (XELJANZ 2-18 by mouth ity of XR) 11 mg 00:00: daily. [address] tofacitinib 2018-03 Yes [id number] 11mg Take 11 mg Univers (XELJANZ 2-18 by mouth ity of XR) 11 mg 00:00: daily. [address] tofacitinib 2018-03 Yes [id number] 11mg Take 11 mg Univers (XELJANZ 2-18 by mouth ity of XR) 11 mg 00:00: daily. [address] tofacitinib 2018-03 Yes [id number] 11mg Take 11 mg Univers (XELJANZ 2-18 by mouth ity of XR) 11 mg 00:00: daily. [address] tofacitinib 2018-03 Yes [id number] 11mg Take 11 mg Univers (XELJANZ 2-18 by mouth ity of XR) 11 mg 00:00: daily. [address] tofacitinib 2018-03 Yes [id number] 11mg Take 11 mg Univers (XELJANZ 2-18 by mouth ity of XR) 11 mg 00:00: daily. [address] tofacitinib 2018-03 Yes [id number] 11mg Take 11 mg Univers (XELJANZ 2-18 by mouth ity of XR) 11 mg 00:00: daily. [address] tofacitinib 2018-03 Yes [id number] 11mg Take 11 mg Univers (XELJANZ 2-18 by mouth ity of XR) 11 mg 00:00: daily. [address] tofacitinib 2018-03 Yes [id number] 11mg Take 11 mg Univers (XELJANZ 2-18 by mouth ity of XR) 11 mg 00:00: daily. [address] tofacitinib 2018-03 Yes [id number] 11mg Take 11 mg Univers (XELJANZ 2-18 by mouth ity of XR) 11 mg 00:00: daily. [address] tofacitinib 2018-03 Yes [id number] 11mg Take 11 mg Univers (XELJANZ 2-18 by mouth ity of XR) 11 mg 00:00: daily. [address] tofacitinib 2018-03 Yes [id number] 11mg Take 11 mg [facility] (XELJANZ 2-18 by mouth ity of XR) 11 mg 00:00: daily. [address] tofacitinib 2018-03 Yes [id number] 11mg Take 11 mg [facility] (XELJANZ 2-18 by mouth ity of XR) 11 mg 00:00: daily. [address] insulin 2018-0 Yes 12U QD Inject 12 [facility] (LANTUS) 00:04: subcutaneo Med ical 100 unit/mL [facility] injection nightly Use as directed . [...] injection nightly Use as directed . insulin [address] [facility] aspart 8-08 [facility] U-100 00:04: us[facility] 3 Medical (NOVOLOG) 52 (three) Center 100 unit/mL times injection daily before meals. Immunizations Ordered Filled Immunization Date Status Comments [facility] e Immunization Name Name Influenza Virus 2021-01-08 Completed [facility] of Vaccine [facility] IM, 00:00:00 [facility] dical Preserv and ABX Branch Free 6 MO-64 YRS Influenza Virus 2021-01-08 Completed Universit y of Vaccine Quad IM, 00:00:00 [place] [facility] dical Preserv and ABX Branch Free 6 MO-64 YRS Influenza Virus 2021-01-08 Completed Universit y of Vaccine Quad IM, 00:00:00 [place] [facility] dical Preserv and ABX Branch Free 6 MO-64 YRS Influenza Virus 2021-01-08 Completed Universit y of Vaccine Quad IM, 00:00:00 [place] [facility] dical Preserv and ABX Branch Free 6 MO-64 YRS Influenza Virus 2021-01-08 Completed Universit y of Vaccine Quad IM, 00:00:00 [place] [facility] dical Preserv and ABX Branch Free [...] Universit y of Vaccine Quad IM, 00:00:00 [place] [facility] dical Preserv and ABX Branch Free 6 MO-64 YRS Influenza Virus 2021-01-08 Completed [facility]it y of Vaccine Quad IM, 00:00:00 [place] [facility] dical Preserv and ABX Branch Free 6 MO-64 YRS Influenza Virus 2021-01-08 Completed Universit y of Vaccine Quad IM, 00:00:00 [place] [facility] dical Preserv and ABX Branch Free 6 MO-64 YRS Influenza Virus 2021-01-08 Completed Universit y of Vaccine Quad IM, 00:00:00 [place] [facility] dical Preserv and ABX Branch Free 6 MO-64 YRS Influenza Virus 2019-11-12 Completed Universit y of Vaccine 00:00:00 [facility] Influenza Virus 2019-11-12 Completed Universit y of Vaccine 00:00:00 [facility] Influenza Virus 2019-11-12 Completed Universit y of Vaccine 00:00:00 [facility] Influenza Virus 2019-11-12 Completed Universit y of Vaccine 00:00:00 [facility] Influenza Virus 2019-11-12 Completed Universit y of Vaccine 00:00:00 [facility] Influenza Virus 2019-11-12 Completed Universit y of Vaccine 00:00:00 [facility] Influenza Virus 2019-11-12 Completed Universit y of Vaccine 00:00:00 [facility] Influenza Virus 2019-11-12 Completed Universit y of Vaccine 00:00:00 [facility] Influenza Virus 2019-11-12 Completed Universit y of Vaccine 00:00:00 [facility] Influenza Virus 2019-11-12 Completed Universit y of Vaccine 00:00:00 [facility] Influenza Virus 2019-11-12 Completed Universit y of Vaccine 00:00:00 [facility] Influenza Virus 2019-11-12 Completed Universit y of Vaccine 00:00:00 [facility] Influenza Virus 2019-11-12 Completed Universit y of Vaccine 00:00:00 [facility] Influenza Virus 2019-11-12 Completed Universit y of Vaccine 00:00:00 [facility] Influenza Virus 2019-11-12 Completed Universit y of Vaccine 00:00:00 [facility] Influenza Virus 2019-11-12 Completed Universit y of Vaccine 00:00:00 [facility] Influenza Virus 2019-11-12 Completed Universit y of Vaccine 00:00:00 [facility] Influenza Virus 2019-11-12 Completed Universit y of Vaccine 00:00:00 [facility] Influenza Virus 2019-11-12 Completed Universit y of Vaccine 00:00:00 [facility] Influenza Virus 2019-11-12 Completed Universit y of Vaccine 00:00:00 [facility] Influenza Virus 2019-11-12 Completed Universit y of Vaccine 00:00:00 [facility] Influenza Virus 2019-11-12 Completed Universit y of Vaccine 00:00:00 [facility] Influenza Virus 2019-11-12 Completed Universit y of Vaccine 00:00:00 [facility] Influenza Virus 2019-11-12 Completed Universit y of Vaccine 00:00:00 [facility] Influenza Virus 2019-11-12 Completed Universit y of Vaccine 00:00:00 [facility] Influenza Virus 2019-11-12 Completed Universit y of Vaccine 00:00:00 [facility] Influenza Virus 2019-11-12 Completed Universit y of Vaccine 00:00:00 [facility] Zoster Vaccine 2019-03-25 Completed University of Recombinant 00:00:00 [facility] Zoster Vaccine 2019-03-25 Completed University of Recombinant 00:00:00 [facility] Zoster Vaccine 2019-03-25 Completed University of Recombinant 00:00:00 [facility] Zoster Vaccine 2019-03-25 Completed University of Recombinant 00:00:00 [facility] Zoster Vaccine 2019-03-25 Completed University of Recombinant 00:00:00 [facility] Zoster Vaccine 2019-03-25 Completed University of Recombinant 00:00:00 [facility] Zoster Vaccine 2019-03-25 Completed University of Recombinant 00:00:00 [facility] Zoster Vaccine 2019-03-25 Completed University of Recombinant 00:00:00 [facility] Zoster Vaccine 2019-03-25 Completed University of Recombinant 00:00:00 [facility] Zoster Vaccine 2019-03-25 Completed University of Recombinant 00:00:00 [facility] Zoster Vaccine 2019-03-25 Completed University of Recombinant 00:00:00 [facility] Zoster Vaccine 2019-03-25 Completed University of Recombinant 00:00:00 [facility] Zoster Vaccine 2019-03-25 Completed University of Recombinant 00:00:00 [facility] Zoster Vaccine 2019-03-25 Completed University of Recombinant 00:00:00 [facility] Zoster Vaccine 2019-03-25 Completed University of Recombinant 00:00:00 [facility] Zoster Vaccine 2019-03-25 Completed University of Recombinant 00:00:00 [facility] Zoster Vaccine 2019-03-25 Completed University of Recombinant 00:00:00 [facility] Zoster Vaccine 2019-03-25 Completed University of Recombinant 00:00:00 [facility] Zoster Vaccine 2019-03-25 Completed University of Recombinant 00:00:00 [facility] Zoster Vaccine 2019-03-25 Completed University of Recombinant 00:00:00 [facility] Zoster Vaccine 2019-03-25 Completed University of Recombinant 00:00:00 [facility] Zoster Vaccine 2019-03-25 Completed University of Recombinant 00:00:00 [facility] Zoster Vaccine 2019-03-25 Completed University of Recombinant 00:00:00 [facility] Zoster Vaccine 2019-03-25 Completed University of Recombinant 00:00:00 [facility] Zoster Vaccine 2019-03-25 Completed University of Recombinant 00:00:00 [facility] Zoster Vaccine 2019-03-25 Completed University of Recombinant 00:00:00 [facility] Zoster Vaccine 2019-03-25 Completed University of Recombinant 00:00:00 [facility] Zoster Vaccine 2019-01-18 Completed University of Recombinant 00:00:00 [facility] Zoster Vaccine 2019-01-18 Completed University of Recombinant 00:00:00 [facility] Zoster Vaccine 2019-01-18 Completed University of Recombinant 00:00:00 [facility] Zoster Vaccine 2019-01-18 Completed University of Recombinant 00:00:00 [facility] Zoster Vaccine 2019-01-18 Completed University of Recombinant 00:00:00 [facility] Zoster Vaccine 2019-01-18 Completed University of Recombinant 00:00:00 [facility] Zoster Vaccine 2019-01-18 Completed University of Recombinant 00:00:00 [facility] Zoster Vaccine 2019-01-18 Completed University of Recombinant 00:00:00 [facility] Zoster Vaccine 2019-01-18 Completed University of Recombinant 00:00:00 [facility] Zoster Vaccine 2019-01-18 Completed University of Recombinant 00:00:00 [facility] Zoster Vaccine 2019-01-18 Completed University of Recombinant 00:00:00 [facility] Zoster Vaccine 2019-01-18 Completed University of Recombinant 00:00:00 [facility] [place] Zoster Vaccine 2019-01-18 Completed University of Recombinant 00:00:00 [facility] Zoster Vaccine 2019-01-18 Completed University of Recombinant 00:00:00 [facility] Zoster Vaccine 2019-01-18 Completed University of Recombinant 00:00:00 [facility] Zoster Vaccine 2019-01-18 Completed University of Recombinant 00:00:00 [facility] Zoster Vaccine 2019-01-18 Completed University of Recombinant 00:00:00 [facility] Zoster Vaccine 2019-01-18 Completed University of Recombinant 00:00:00 [facility] Zoster Vaccine 2019-01-18 Completed University of Recombinant 00:00:00 [facility] Zoster Vaccine 2019-01-18 Completed University of Recombinant 00:00:00 [facility] Zoster Vaccine 2019-01-18 Completed University of Recombinant 00:00:00 [facility] Zoster Vaccine 2019-01-18 Completed University of Recombinant 00:00:00 [facility] Zoster Vaccine 2019-01-18 Completed University of Recombinant 00:00:00 [facility] Zoster Vaccine 2019-01-18 Completed University of Recombinant 00:00:00 [facility] Zoster Vaccine 2019-01-18 Completed University of Recombinant 00:00:00 [facility] Zoster Vaccine 2019-01-18 Completed University of Recombinant 00:00:00 [facility] Zoster Vaccine 2019-01-18 Completed University of Recombinant 00:00:00 [facility] Vital Signs Vital Name Observation Time Observation Value Comments Source Systolic blood 2022-08-05 17:43:00 153 mm[Hg] Univer sity of pressure [facility] Diastolic blood 2022-08-05 17:43:00 83 mm[Hg] Unive rsity of pressure [facility] Heart rate 2022-08-05 17:40:00 62 /min [facility] Body temperature 2022-08-05 17:40:00 36.61 Aura Univ ersity of [facility] Respiratory rate 2022-08-05 17:40:00 18 /min Univ ersity of [facility] Body height 2022-08-05 17:40:00 157.5 cm Universi ty [facility] [place] Body weight 2022-08-05 17:40:00 104.463 kg [facility]i [facility] [place] BMI 2022-08-05 17:40:00 42.12 kg/m2 Universi ty [facility] Oxygen saturation in 2022-08-05 17:40:00 99 /min University of Arterial blood by [facility] bharat Pulse oximetry Branch Systolic blood 2022-06-13 16:50:00 140 mm[Hg] Univer sity of pressure [facility] Diastolic blood 2022-06-13 16:50:00 78 mm[Hg] Unive rsity of pressure [facility] Heart rate 2022-06-13 16:50:00 57 /min [facility] ty [facility] [place] Body weight 2022-06-13 16:50:00 103.964 kg [facility] ty [facility] [place] BMI 2022-06-13 16:50:00 44.76 kg/m2 [facility] [place] Oxygen saturation in 2022-06-13 16:50:00 99 /min University of Arterial blood by [facility] Pulse oximetry Branch Systolic blood 2022-02-21 21:25:00 155 mm[Hg] Univer sity of pressure [facility] Diastolic blood 2022-02-21 21:25:00 78 mm[Hg] Unive rsity of pressure [facility] [place] Heart rate 2022-02-21 21:14:00 63 /min [facility]i ty [facility] Body weight 2022-02-21 21:14:00 100.699 kg [facility] BMI 2022-02-21 21:14:00 43.36 kg/m2 Universi ty of [facility] Oxygen saturation in 2022-02-21 21:14:00 95 /min University of Arterial blood by [facility] Pulse oximetry Branch Procedures Procedure Date / Time Performed Performing Clinician Sour e POCT HEMOGLOBIN A1C 2022-06-13 17:03:00 Abbey Negrete Universi ty of [facility] ASSIGNMENT OF BENEFITS 2022-06-13 16:29:52 Doctor Unassigned, No [facility] POCT HEMOGLOBIN A1C 2022-02-21 21:26:00 Abbey Negrete [facility] [id number] 2021-06-24 00:00:00 CHAAB.01 [facility] [id number] 2021-06-24 00:00:00 CHAAB.01 [facility] [id number] 2021-06-24 00:00:00 CHAAB.01 [facility] [id number] 2021-06-24 00:00:00 CHAAB.01 [facility] [id number] 2021-06-24 00:00:00 CHAAB.01 [facility] [id number] 2021-06-24 00:00:00 CHAAB.01 [facility] [id number] 2021-06-23 00:00:00 RASSA [facility] [id number] 2021-06-23 00:00:00 RASSA [facility] [id number] 2021-06-23 00:00:00 RASSA [facility] [id number] 2021-06-23 00:00:00 RASSA [facility] [id number] 2021-06-23 00:00:00 RASSA [facility] [id number] 2021-06-23 00:00:00 RASSA [facility] Plan of Care Planned Activity Planned [...] [facility] 00:00:00 measurement (procedure) [facility] [code = 58150817] Future Scheduled 2019-01-[address] [facility] 00:00:00 measurement (procedure) [facility] [code = 55762422] Future Scheduled 2012 SHINGLES VACCINES ([address] [facility] Test 00:00:00 2) [code = SHINGLES [facility] VACCINES (1 of 2)] Future Scheduled 2012 SHINGLES VACCINES ([address] [facility] Test 00:00:00 2) [code = SHINGLES [facility] VACCINES (1 of 2)] Future Scheduled 2007 Lipid panel (procedure) [facility] Test 00:00:00 [code = 68050515] Medical Ce nter Future Scheduled 2007 Lipid panel (procedure) [facility] Test 00:00:00 [code = 65352195] Medical Ce nter Future Scheduled 1983 Screening for malignant [facility] Test 00:00:00 neoplasm of cervix Medical C enter (procedure) [code = 673151775] Future Scheduled 1983 Screening for malignant [facility] Test 00:00:00 neoplasm of cervix Medical C enter (procedure) [code = 316406344] Future Scheduled 1981 DTAP/TDAP/TD VACCINES CH I [...] 00:00:00 examination Medical Center (regime/therapy) [code = 368701697] Future Scheduled 1972 Urine screening for [facility] Test 00:00:00 protein (procedure) Medical Center [code = 651734371] Future Scheduled 1972 DIABETIC EYE EXAM [code [facility] Test 00:00:00 = DIABETIC EYE EXAM] Medical Center Future Scheduled [address] [facility] 00:00:00 examination Medical Center (regime/therapy) [code = 212700243] Future Scheduled 1972 Urine screening for [facility] Test 00:00:00 protein (procedure) Medical Center [code = 299589274] Future Scheduled [address] [...] breast Medical C enter (procedure) [code = 996205894] Future Scheduled 1962 Screening for malignant [facility] Test 00:00:00 neoplasm of colon Medical Ce nter (procedure) [code = 565600177] Future Scheduled 1962 Screening for malignant [facility] Test 00:00:00 neoplasm of breast Medical C enter (procedure) [code = 009280156] Future Scheduled 1962 CT Colonography (combo) [facility] Test 00:00:00 [code = CT Colonography [facility] (combo)] Future Scheduled 1962 Screening for malignant [facility] Test 00:00:00 neoplasm of colon Medical Ce nter (procedure) [code = 604957104] Future Scheduled 1962 Screening for malignant [facility] Test 00:00:00 neoplasm of colon Medical Ce nter (procedure) [code = 903793860] Future Scheduled 1962 Screening for malignant [facility] Test 00:00:00 neoplasm of colon Medical Ce nter (procedure) [code = 799664413] Future Scheduled 1962 Screening for malignant [facility] Test 00:00:00 neoplasm of colon Medical Ce nter (procedure) [code = 366400766] Future Scheduled 1962 Sigmoidoscopy [code = [facility] 00:[facility]00 Sigmoidoscopy] Medical Nesha r Encounters Start End Encounter Admission Attending Care Care Encounter Source Date/Time Date/Time Type Type Clinicians Facility Department ID 2021-01-12 Emergency [facility] [id number] [facility]09 Emergency [facility] [id number] Univers 14:10:03 [facility] 2023-02-09 2023-02-09 Outpatient R CORDELL MANLEY [facility] [id number] Univers 10:30:00 10:30:00 [facility] 2022-10-17 2022-10-17 Outpatient R ABBEY NEGRETE [facility] [id number] Univers 12:00:00 12:00:00 ABBEY NEGRETE [facility] 2022-09-19 2022-09-19 [facility] 1..241.626 [id number] Univers 00:00:00 00:00:[place] 350.1.13.10 it y of [place] 4.2.7.2.686 [place]key as HECTOR?BLEA [id number] [address] MEDICAL OFFICE BUILDING 2022-09-19 2022-09-19 Telephone Abbey Negrete [facility] [id number] Univers 00:00:00 00:00:00 HEALTH 350.1.13.10 it y of [place] 4.2.7.2.686 [place]key as HECTOR?BLEA [id number] [address] MEDICAL OFFICE [facility] 2022-09-16 2022-09-16 Outpatient R KRISTIAN [facility] [id number] Univers 09:15:00 09:15:00 ANY itluan [facility] 2022-09-12 2022-09-12 Telephone [facility] [id number] Univers 00:00:00 00:00:00 HEALTH 350.1.13.10 it y of [place] 4.2.7.2.686 [place]key as HECTOR?BLEA [id number] [address] MEDICAL OFFICE [facility] 2022-09-08 2022-09-08 Outpatient R MICAELA [facility] [id number] Univers 10:00:00 10:00:00 SAHARA tonia [facility] 2022-09-05 2022-09-05 Telephone [facility] 1..975.455 [id number] Univers 00:00:00 00:00:00 HEALTH 350.1.13.10 it y of [place] 4.2.7.2.686 [place]key as HECTOR?BLEA [id number] [address] OFFICE [facility] 2022-09-05 2022-09-05 Telephone [facility] 1.2.665.014 [id number] Univers 00:00:00 00:00:00 HEALTH 350.1.13.10 it y of [place] 4.2.7.2.686 [place]key as HECTOR?BLEA [id number] [address] MEDICAL OFFICE [facility] 2022-08-24 2022-08-24 Outpatient R MARGY [facility] [id number] Univers 11:00:00 11:00:00 JESSEE tonia [facility] 2022-08-23 2022-08-23 Refill [facility] 1.2.840.114 [id number] Univers 00:00:00 00:00:00 HEALTH 350.1.13.10 it y of [place] 4.2.7.2.686 [place]key as HECTOR?BLEA [id number] [address] OFFICE [facility] 2022-08-23 2022-08-23 [facility]phone [facility] 1.2.225.919 [id number] Univers 00:00:00 00:00:00 Rocio A HEALTH 350.1.13.10 i ty of [place] 4.2.7.2.686 Vickey as HECTOR?BLEA [id number] [address] OFFICE [facility] 2022-08-19 2022-08-19 [facility] [id number] Univers 14:30:00 14:30:00 RCOIO ity [facility] 2022-08-19 2022-08-19 Telephone Abbey Negrete [facility] 1.2.242.275 [id number] Univers 00:00:00 00:00:00 HEALTH 350.1.13.10 it y of [place] 4.2.7.2.686 [place] as HECTOR?BLEA [id number] [address] OFFICE [facility] 2022-08-05 2022-08-05 Office [facility] 1.2.840.114 [id number] Univers 12:30:00 13:00:00 Visit Rocio A HEALTH 350.1.13.10 i ty of [place] 4.2.7.2.686 Vickey as HECTOR?BLEA [id number] [address] OFFICE [facility] 2022-08-05 2022-08-05 Outpatient [facility] [id number] Univers 12:30:00 12:30:00 ROCIO ity [facility] 2022-08-05 2022-08-05 Telephone Alyse BALDWIN 1.2.840.114 [id number] Univers 00:00:00 00:00:00 , Sherita EN[place] 350.1.13.10 [place] [id number] [address] 2022-06-13 2022-06-13 Outpatient R ABBEY NEGERTE [facility] [id number] Univers 12:00:00 12:57:07 ABBEY NEGRETE [facility] 2022-06-13 2022-06-13 Office Abbey Negrete [facility] 1.2.840.114 [id number] Univers 12:00:00 12:57:07 Visit HEALTH 350.1.13.10 it y of [place] 4.2.7.2.686 [place]key as HECTOR?BLEA [id number] [address] MEDICAL OFFICE [facility] 2022-06-13 2022-06-13 Orders Doctor ASHLEY 1.2.840.114 [id number] Univers 00:00:00 00:00:00 Only Unassigned, MCKENNA 350.1.13.10 ity of [place] [facility] 4.2.7.2.686 Vickey as [id number] [address] 2022-05-12 2022-05-12 Outpatient R CORDELL MANLEY [facility] [id number] Univers 13:30:00 13:30:00 ity of [facility] 2022-04-22 2022-04-22 Telephone [facility] 1.2.566.553 [id number] Univers 00:00:00 00:00:00 PRIMARY 350.1.13.10 it [place] [id number] [address] 2022-04-05 2022-04-05 Telephone [facility] 1.2.125.136 [id number] Univers 00:00:00 00:00:00 HEALTH 350.1.13.10 it y of [place] 4.2.7.2.686 [place]key as HECTOR?BLEA [id number] [address] MEDICAL OFFICE [facility] 2022-03-03 2022-03-03 Refill [facility] 1.2.840.114 [id number] Univers 00:00:00 00:00:00 PRIMARY 350.1.13.10 it [place] [id number] [address] 2022-03-02 2022-03-02 Outpatient R FELISA [facility] [id number] Univers 11:00:00 11:00:00 ROCIO randall [facility] 2022-03-01 2022-03-01 Refill Abbey Negrete [facility] 1.2.840.114 [id number] Univers 00:00:00 00:00:00 HEALTH 350.1.13.10 it y of [place] 4.2.7.2.686 Vickey as HECTOR?BLEA [id number] [facility] [address] [facility] OFFICE [facility] 2022-02-21 2022-02-21 [employer] Operator Lab, [facility] 1.2.840.1 [id number] Univers 16:15:00 16:24:28 Visit Abbey Negrete [facility] 350.1.13.10 it y of [place] 4.2.7.2.686 Vickey as HECTOR?BLEA [id number] [facility] [address] [facility] OFFICE [facility] 2022-02-21 2022-02-21 Outpatient R CADEN [facility] [id number] Univers 15:30:00 16:10:32 ABBEY NEGRETE luan [facility] 2022-02-21 2022-02-21 Office [facility] 1.2.840.114 [id number] Univers 15:30:00 16:10:32 Visit HEALTH 350.1.13.10 it y of [place] 4.2.7.2.686 Vickey as HECTOR?BLEA [id number] [address] OFFICE [facility] 2022-02-16 2022-02-16 Telephone HUSSAIN WeinbergTucker 1.2.827.467 [id number] Univers 00:00:00 00:00:00 Teena PARNELL 350.1.13.10 [place] [id number] [address] 2022-01-19 2022-01-19 Outpatient R CATERINA [facility] [id number] Univers 14:15:00 14:15:00 THEO luan [facility] 2021-11-01 2021-11-01 Telephone [facility] 1.2.840.114 [id number] Univers 00:00:00 00:00:00 Trey HEALTH 350.1.13.10 it y of [place] 4.2.7.2.686 Vickey as HECTOR?BLEA [id number] Mo dayanara [facility] [address] [facility] OFFICE [facility] 2021-09-24 2021-09-24 Telephone Gigi [facility] 1.2.840.114 [id number] Univers 00:00:00 00:00:00 Trey HEALTH 350.1.13.10 it y of [place] 4.2.7.2.686 Vickey as HECTOR?BLEA [id number] [facility] [address] [facility] OFFICE [facility] 2021-07-21 2021-07-23 Inpatient LUIS ALBERTO Robertson, JAMESCL INTE [id number] [facility] 05:18:00 16:56:[address] 2021-07-13 2021-07-13 Outpatient Cristo CHAIDEZ [facility] [id number] Univers 10:00:00 10:00:00 [facility] 2021-07-13 2021-07-13 Outpatient Cristo CHAIDEZ [facility] [id number] Univers 10:00:00 10:00:00 [facility] 2021-07-06 2021-07-06 Telephone [facility] 1..893.257 [id number] Univers 00:00:00 00:00:00 Rocio A HEALTH 350.1.13.10 i ty of [place] 4.2.7.2.686 Vickey as HECTOR?BLEA [id number] [address] 2021-07-05 2021-07-05 Outpatient CORDELL KAUR [facility] [id number] Univers 13:30:00 13:30:00 ity [facility] 2021-07-02 2021-07-02 Telephone [facility] 1..840.114 [id number] Univers 00:00:00 00:00:00 Wondiful A HEALTH 350.1.13.10 ity of [place] 4.2.7.2.686 Vickey as HECTOR?BLEA [id number] [address] 2021-07-02 2021-07-02 Orders Doctor RAMIREZ 1.2.840.114 [id number] Univers 00:00:00 00:00:00 Only Unassigned, MCKENNA 350.1.13.10 ity of [place] [facility] 4.2.7.2.686 Vickey as [id number] [facility] [address] [place] 2021-06-23 2021-06-30 Inpatient LUIS ALBERTO Zeng, HCACL INTE.02 [id number] [facility] 14:22:00 12:30:00 [facility] 58 [facility] 2021-06-29 2021-06-29 Outpatient R KEITH [facility] [id number] Univers 14:00:00 14:00:00 ELISE [facility] 2021-06-21 2021-06-21 Outpatient R [facility] [id number] Univers 14:30:00 14:30:00 TREY [facility] 2021-06-16 2021-06-16 Refill [facility] 1.2.840.114 [id number] Univers 00:00:00 00:00:00 Trey [facility]LINNEA 350.1.13.10 i ty of [place] 4.2.7.2.686 [facility] [id number] Mo dical [facility] 220 [facility] 2021-06-11 2021-06-11 Outpatient R [facility] [id number] Univers 09:30:00 09:58:55 SHAHNAZ [facility] 2021-06-11 2021-06-11 Office [facility] 1.2.840.114 [id number] Univers 09:30:00 09:58:55 Visit [facility] 350.1.13.10 i ty [place] [id number] [facility] [address] [place] 2021-06-11 2021-06-11 Orders Doctor ASHLEY 1.2.840.114 [id number] Univers 00:00:00 00:00:00 Only Unassigned, MCKENNA 350.1.13.10 ity of [place] HOSPITAL 4.2.7.2.686 Vickey as [id number] [facility] [address] [place] 2021-05-24 2021-05-24 Orders Doctor RAMIREZ 1.2.840.114 [id number] Univers 00:00:00 00:00:00 Only Unassigned, MCKENNA 350.1.13.10 ity of [place] [facility] 4.2.7.2.686 Vickey as [phone] [address] 2021-05-21 2021-05-21 Outpatient R FELISA [facility] [id number] Univers 11:00:00 10:56:49 ROCIO itluan [facility] 2021-05-10 2021-05-10 Inpatient LUIS ALBERTO Mcdonald, JAMESCL OUTD [id number] [facility] 13:09:00 13:09:00 Dany 14 [facility] 2021-05-04 2021-05-04 Outpatient [facility] [id number] Univers 14:15:00 14:15:00 WONDIFUL ity o f [facility] 2021-04-27 2021-04-27 Telephone [facility] 1.2.840.114 [id number] Univers 00:00:00 00:00:00 Wondiful A HEALTH 350.1.13.10 ity of [place] 4.2.7.2.686 Vickey as HECTOR?BLEA [phone] [address] MEDICAL OFFICE BUILDING 2021-04-26 2021-04-26 Orders Doctor ASHLEY Way.2.840.114 [id number] Univers 00:00:00 00:00:00 Only Unassigned, MCKENNA 350.1.13.10 ity of [place] [facility] 4.2.7.2.686 Vickey as [phone] [address] 2021-04-20 2021-04-20 Outpatient Cristo [facility] [id number] Univers 14:30:00 14:30:00 KITTY luan [facility] 2021-04-20 2021-04-20 Outpatient Cristo [facility] [id number] Univers 14:30:00 14:30:00 KITTY [facility] 2021-04-16 2021-04-16 Orders Doctor ASHLEY Haines2.840.114 [id number] Univers 00:00:00 00:00:00 Only Unassigned, MCKENNA 350.1.13.10 [facility] 4.2.7.2.686 [place] [phone] [address] 2021-04-14 2021-04-14 Outpatient R ИВАН [facility] [id number] Univers 10:30:00 10:30:00 SHAHNAZ ity of [facility] 2021-03-30 2021-03-30 [facility] 1.2.840.114 [id number] Univers 00:00:00 00:00:00 Rachel PADRON 350.1.13.10 ity of [place] [phone] [facility] NAL 059 [facility] 2021-03-26 2021-03-26 [facility] 1.2.840.114 [id number] Univers 00:00:00 00:00:00 Rachel PADRON 350.1.13.10 ity of [place] [phone] Mo dicmn NAL 059 [facility] 2021-03-23 2021-03-23 Outpatient R KRISTIAN [facility] [id number] Univers 10:22:10 23:59:00 ANY ity of [facility] 2021-03-23 2021-03-23 [facility] 1.2.840.114 [id number] Univers 10:22:10 23:59:00 Encounter [facility] 350.1.13.10 ity of [place] 4.2.7.2.686 Vickey as HECTOR?BLEA [phone] [facility] DONALD 809 [facility] OFFICE [facility] 2021-03-23 2021-03-23 Office [facility] 1.2.840.114 [id number] Univers 10:30:00 10:45:00 Visit Any S HEALTH 350.1.13.10 it y of [place] 4.2.7.2.686 Vickey as HECTOR?BLEA [phone] [facility] DONALD [address] MEDICAL OFFICE BUILDING 2021-03-23 2021-03-23 Outpatient R KRISTIAN [facility] [id number] Univers 10:30:00 10:30:00 ANY ity of [facility] 2021-03-23 2021-03-23 Telephone SharpUN[facility] 1.2.840.114 [id number] Univers 00:00:00 00:00:00 Wondiful A HEALTH 350.1.13.10 ity of [place] 4.2.7.2.686 Vickey as HECTOR?BLEA [phone] [facility] 044 [facility] OFFICE [facility] 2021-03-19 2021-03-19 Refill AnderUN[facility] 1.2.840.114 [id number] Univers 00:00:00 00:00:00 Kitty HEALTH 350.1.13.10 it y [facility] 4.2.7.2.686 Vickey as HECTOR?BLEA [phone] [facility] 220 [facility] 2021-02-22 2021-02-22 Telephone ZenaidaUNM [facility] 1.2.840.114 [id number] Univers 00:00:00 00:00:00 Wondiful A HEALTH 350.1.13.10 ity of [place] 4.2.7.2.686 Vickey as HECTOR?BLEA [phone] [facility] 044 [facility] OFFICE [facility] 2021-02-17 2021-02-17 Refill BriannaUN[facility] 1.2.840.114 [id number] Univers 00:00:00 00:00:00 Rachel PADRON 350.1.13.10 ity of [facility] 4.2.7.2.[place] [phone] [facility] NAL 059 [facility] 2021-02-13 2021-02-13 Refill GigiUNM [facility]ILDR[facility] 1.2.840.114 [id number] Univers 00:00:00 00:00:00 Trey PADRON 350.1.13.10 i ty of [facility] 4.2.7.2.[place] [phone] Mo dical NAL 220 [facility] 2021-02-08 2021-02-08 Arthur ReedUNM CHILDR[facility] 1.2.840.114 [id number] Univers 00:00:00 00:00:00 Sendil Armida PADRON 350.1.13.10 ity [facility] 4.2.7.2.[place] E[place] [phone] Mo dayanara ROLON 059 [facility] 2021-01-25 2021-01-25 Outpatient R ZENAIDA [facility] [id number] Univers 00:00:00 00:00:00 WONDIFUL ity o f [facility] 2021-01-25 2021-01-25 Outpatient R ZENAIDA [facility] [id number] Univers 00:00:00 00:00:00 WONDIFUL ity o f [facility] 2021-01-12 2021-01-12 Outpatient R DM [facility] [id number] Univers 08:15:00 08:15:00 TOUKA [facility] 2021-01-08 2021-01-08 Outpatient R ZENAIDA [facility] [id number] Univers 13:30:00 14:58:08 WONDIFUL ity o f [facility] 2021-01-08 2021-01-08 Office [facility]idaUN[facility] 1.2.840.114 [id number] Univers 12:14:31 14:58:08 Visit Alvarado A HEALTH 350.1.13.10 ity [facility] 4.2.7.2.686 Vickey as HECTOR?BLEA [phone] Mo dayanara KNEY [address] [place] MEDICAL OFFICE BUILDING 2021-01-08 2021-01-08 Outpatient R ZENAIDA [facility] [id number] Univers 13:30:00 13:30:00 WONDIFUL ity o f 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, Ang - Db [facility] 1.2.840.1 14 [id number] Univers 16:23:32 16:38:32 Visit Trey [facility] 350.1.13.10 ity of [place] 4.2.7.2.686 Vickey as Hector?Blea [phone] Mo dayanara field [address] [place] Medical Office [facility] 2020-12-21 2020-12-21 Office GigiUNM [facility]ILDR[facility] 1.2.840.114 [id number] Univers 15:39:24 16:09:24 Visit [facility] 350.1.13.10 it y of [place] 4.2.7.2.686 Vickey as Hector?Blea [phone] Mo dayanara bennett 220 [facility] Office [facility] 2020-12-21 2020-12-21 Outpatient R [facility] [id number] Univers 15:30:00 15:30:00 [facility] 2020-12-21 2020-12-21 Outpatient R [facility] [id number] Univers 12:00:00 12:00:00 [facility] 2020-12-15 2020-12-15 Outpatient R [facility] [id number] Univers 09:20:00 09:20:00 [facility] 2020-12-10 2020-12-10 Ancillary Kalpana Zheng [facility] 1.2.840. 114 [id number] Univers 08:47:26 10:21:51 Visit Katia Kamara [place] 350.1.13.10 ity of [place] D[place] [phone] Mo dayanara [facility] 179 [facility] 2020-12-10 2020-12-10 Outpatient R [facility] [id number] Univers 09:00:00 09:00:00 KATIA [facility] 2020-12-08 2020-12-08 Transition Clint Cash 1.2.840.114 [id number] Univers 00:00:00 00:00:00 of Care Della Parnell 350.1.13.10 i ty of [place].2.[place] [phone] [address] 2020-12-04 2020-12-06 [facility] Leo Dickinson 1.2.840.1 14 [id number] Univers 14:09:00 15:50:00 Encounter Renny Reardon 350.1.13. 10 ity of [place] [facility] 4.2.7.2.686 [place] [phone] [place] [address] [place] 2020-12-04 2020-12-04 Nurse Nurse, [facility] 1.2.840.114 [id number] Univers 13:21:56 13:41:56 [facility] 350.1.13.10 ity of [place] 4.2.7.2.686 Vickey as Hector?Blea [phone] [address] Medical Office [facility] 2020-12-04 2020-12-04 Outpatient R [facility] [id number] Univers 13:30:00 13:30:00 AMADA ity [facility] 2020-12-03 2020-12-03 Office ReedUN[facility] 1.2.840.114 [id number] Univers 09:41:40 10:25:13 Visit Rachel Padron 350.1.13.10 ity of [place].2.[place] Profess[place] [phone] [address] 2020-12-03 2020-12-03 Outpatient R [facility] [id number] Univers 10:00:00 10:00:00 [facility] 2020-10-29 2020-10-29 Outpatient R [facility] [id number] Univers 16:40:00 16:40:00 AMADA ity [facility] 2020-10-07 2020-10-07 Telephone ReedUN[facility] 1.2.004.388 [id number] Univers 00:00:00 00:00:00 Sendhilary Padron 350.1.13.10 [place]y of [place].2.[place] [phone] [address] 2020-10-07 2020-10-07 Telephone BriannaUNM [facility]IL[facility] 1.2.230.228 [id number] Univers 00:00:00 00:00:00 Sendhilary Padron 350.1.13.10 ity of [place] [phone] [facility] 059 [facility] 2020-10-02 2020-10-02 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 10 ity of [place].2.[place] [phone] [facility] 353 [facility] 2020-10-02 2020-10-02 Outpatient [facility] [id number] Univers 08:00:00 08:00:00 SENDIL ity [facility] 2020-09-22 2020-09-22 Outpatient R [facility] [id number] Univers 09:00:00 09:00:00 SENDIL ity [facility] 2020-09-14 2020-09-14 [facility] 1.2.388.026 [id number] Univers 00:00:00 00:00:00 Sendhilary Padron 350.1.13.10 ity of [place].2.[place] [phone] [facility] 059 [facility] 2020-09-14 2020-09-14 Telephone [facility]UN[facility] 1.2.840.114 [id number] Univers 00:00:00 00:00:00 Trey Padron 350.1.13.10 i ty of [place]2.[place].2.[place] [phone] [facility] 220 [facility] 2020-09-01 2020-09-01 Nurse Day Horn 1.2.840.114 [id number] Univers 00:00:00 00:00:00 Triage MCKENNA 350.1.13.10 it y of [facility] 4.2.7.2.686 Vickey as [phone] [facility] [address] [place] 2020-08-31 2020-08-31 Outpatient R GIGI [facility] [id number] Univers 11:30:00 11:30:00 TREY ity [facility] 2020-08-31 2020-08-31 Office Gigi [facility] 1.2.840.114 [id number] Univers 10:23:44 11:20:14 Visit Trey Padron 350.1.13.10 i ty [facility] 4.2.7.2.[place] [phone] Mo dical nal 220 [facility] 2020-08-25 2020-08-25 Office Brianna [facility] 1.2.840.114 [id number] Univers 10:33:27 11:05:58 Visit Rachel YazminNikki Padron 350.1.13.10 ity [facility] 4.2.7.2.[place] [phone] Mo dical nal 059 [facility] 2020-08-25 2020-08-25 Outpatient R BRIANNA [facility] [id number] Univers 11:00:00 11:00:00 SENDHILARY simmonsWilson N. [facility] 2020-08-21 2020-08-21 Orders Doctor ASHLEY 1.2.840.114 [id number] Univers 00:00:00 00:00:00 Only Unassigned, MCKENNA 350.1.13.10 ity of [place] [facility] 4.2.7.2.686 Vickey as [phone] [facility] [address] [place] 2020-08-12 2020-08-12 Outpatient R ZEINA JO [facility] [id number] Univers 11:30:00 11:30:00 ZEINA JO [facility] 2020-07-28 2020-07-28 Refill Doctor ASHLEY 1.2.840.114 [id number] Univers 00:00:00 00:00:00 Unassigned, MCKENNA 350.1.13.10 ity of [place] [facility] 4.2.7.2.686 Vickey as [phone] [facility] [address] 2020-06-25 2020-06-25 Office [facility]UN[facility] 1.2.840.114 [id number] Univers 13:33:34 14:36:23 Visit Sendhilary Padron 350.1.13.10 ity of [place] [phone] Mo dical nal 059 [facility] 2020-06-25 2020-06-25 Outpatient [facility] [id number] Univers 14:00:00 14:00:00 SENDIL [facility] 2020-06-08 2020-06-08 Outpatient R [facility] [id number] Univers 10:00:00 10:00:00 SENDIL [facility] 2020-06-01 2020-06-01 Refill [facility]UN[facility] 1.2.840.114 [id number] Univers 00:00:00 00:00:00 Sendil Armida Padron 350.1.13.10 ity [place]2.7.2.[place] [phone] Mo dical nal 059 [facility] 2020-05-23 2020-05-23 Patient Efren [facility] 1.2.840.114 [id number] Univers 00:00:00 00:00:00 Outreach Flako PRIMARY 350.1.13.10 i ty of [facility] 4.2.7.2.[place] [phone] Mo dical [address] [place] 2020-05-18 2020-05-18 Outpatient R DM [facility] [id number] Univers 10:00:00 10:00:00 TOUKA [facility] 2020-05-11 2020-05-11 Office DmUN[facility] 1.2.840.114 [id number] Univers 09:25:48 11:23:17 Visit Carmelina MULTISPEC 350.1.13.10 ity of [facility] 4.2.7.2.686 [place] CENTER [phone] [facility] AND PEREZ [address] [facility] 2020-05-11 2020-05-11 Outpatient R [facility] [id number] Univers 09:30:00 09:30:00 ity [facility] 2020-05-11 2020-05-11 Orders Doctor ASHLEY 1.2.840.114 [id number] Univers 00:00:00 00:00:00 Only Unassigned, MCKENNA 350.1.13.10 ity of [place] [facility] 4.2.7.2.686 Vickey as [phone] [address] 2020-04-27 2020-04-27 Outpatient R [facility] [id number] Univers 10:30:00 10:30:00 SENDIL [facility] 2020-04-22 2020-04-22 Orders Doctor ASHLEY 1.2.840.114 [id number] Univers 00:00:00 00:00:00 Only Unassigned, MCKENNA 350.1.13.10 ity of [place] [facility] 4.2.7.2.686 Vickey as [phone] [address] 2020-03-26 2020-03-26 Emergency [facility] 1.2.840.114 [id number] 11:51:00 18:13:00 Faith Padron 350.1.13.10 [place] 4.2.7.2.686 [place] [phone] [id number] 2020-03-26 Emergency X BUSTOS, [facility] ERT [id number] Univers 11:51:00 18:13:00 FAITH randall [facility] 2020-03-26 2020-03-26 [facility] 1.2.840.114 [id number] Univers 11:51:00 18:13:00 Fatih Padron 350.1.13.10 i ty of [place]2.7.2.[place] [phone] [address] 2020-03-26 2020-03-26 Telephone [facility]UN[facility] 1.2.808.339 [id number] 00:00:00 00:00:00 Sendil Armida Padron 350.1.13.10 [place] 4.2.7.2.686 Professio [phone] [address] 2020-03-26 2020-03-26 Telephone BriannaUN[facility] 1.2.537.548 [id number] Univers 00:00:00 00:00:00 Rachel Padron 350.1.13.10 ity of [place].2.[place] [phone] [address] 2020-03-19 2020-03-19 Outpatient R ASHLEY BLUE [facility] [id number] Univers 10:30:00 10:30:00 ity [facility] 2020-03-16 2020-03-16 Office [facility] 1.2.840.114 [id number] 08:45:41 09:51:05 Visit Rachel Padron 350.1.13.10 [place] 4.2.7.2.686 Professio [phone] [address] 2020-03-16 2020-03-16 Office Brianna [facility] 1.2.840.114 [id number] [facility] 08:45:41 09:51:05 Visit Rachel Padron 350.1.13.10 ity [facility] 4.2.7.2.[place] [phone] [address] 2020-03-16 2020-03-16 Outpatient R BRIANNA [facility] [id number] Univers 09:00:00 09:00:00 SENDIL [facility] 2020-03-16 2020-03-16 Orders Doctor ASHLEY 1.2.840.114 [id number] 00:00:00 00:00:00 Only Unassigned, MCKENNA 350.1.13.10 [place] [facility] 4.2.7.2.686 [phone] 009 2020-03-16 2020-03-16 Transition Clint Cash 1.2.840.114 [id number] Univers 00:00:00 00:00:00 of Care Della Parnell 350.1.13.10 i ty of [place]2.7.2.[place] [phone] [facility] [address] 2020-03-16 2020-03-16 Orders Doctor ASHLEY 1.2.840.114 [id number] Univers 00:00:00 00:00:00 Only Unassigned, MCKENNA 350.1.13.10 ity of [place] HOSPITAL 4.2.7.2.686 Vickey as [phone] [facility] [address] 2020-03-12 2020-03-13 Hospital Marah [place] 1.2.84 0.114 [id number] Univers 19:23:00 18:35:00 Encounter Juana Zamora Mckenna 350.1.13.10 ity of Hospital 4.2.7.2.686 [place] as [phone] [facility] [address] 2020-03-12 2020-03-12 Hospital Radiology [facility] 1.2.840.114 [id number] Univers 15:49:15 19:22:00 Encounter Nereida 350.1.13.10 ity of [place] 4[place]2.7.2.[place] [phone] [facility] [address] 2020-03-12 2020-03-12 Outpatient R RADIOLOGY [facility] [id number] Univers 16:00:00 16:00:00 ity of [facility] 2020-03-09 2020-03-09 Office Carmelina Chaidez [facility] 1.2.840.114 [id number] Univers 08:27:34 09:11:09 Visit Joana Dean MULTISPEC 350.1.13. 10 ity of [place] 4.2.7.2.68 6 [facility] [phone] [facility] AND SCAMMON [address] [facility] 2020-03-09 2020-03-09 Outpatient R [facility] [id number] Univers 08:45:00 08:45:00 ity of [facility] 2020-03-09 2020-03-09 Orders Doctor RAMIREZ 1.2.840.114 [id number] Univers 00:00:00 00:00:00 Only Unassigned, MCKENNA 350.1.13.10 ity of [place] [facility]OSPITAL 4.2.7.2.686 Vickey as [phone] [address] 2020-03-03 2020-03-03 Office И[facility]UN[facility] 1.2.840.114 [id number] Univers 09:55:25 11:39:09 Visit Shahnaz Frederick MULTISPEC 350.1.13.10 ity of [place] 4.2.7.2.686 [facility] [phone] [facility] [address] [place] [facility] 2020-03-03 2020-03-03 Outpatient R [facility] [id number] Univers 10:00:00 10:00:00 SHAHNAZ [facility] 2020-01-16 2020-01-16 Outpatient [facility] [id number] Univers 14:30:00 14:30:00 ANY [facility] 2019-12-25 2019-12-25 Outpatient R [facility] [id number] Univers 09:00:00 09:00:00 SHAHNAZ [facility] 2019-11-25 2019-11-25 Outpatient R [facility] [id number] Univers 11:00:00 11:00:00 KEVEN [facility] 2019-10-24 2019-10-24 Outpatient R [facility] [id number] Univers 09:45:00 09:45:00 [facility] 2019-09-23 2019-09-23 Refill Cam[facility]UN[facility] 1.2.840.114 [id number] Univers 00:00:00 00:00:00 Gee MORALESPEC 350.1.13.10 ity of [place] 4.2.7.2.686 [facility] LOGAN [phone] [facility] [address] [place] [facility] 2019-08-20 2019-08-20 Outpatient R [facility]POSTHE [facility] [id number] Univers 09:40:00 09:40:00 GEE [facility] 2019-08-15 2019-08-15 Telephone ChiragjennyUN[facility] 1.2.840.114 [id number] Univers 00:00:00 00:00:00 Gee Arzola PRIMARY 350.1.13.10 ity of [place].2.[place] [phone] Mo dical [address] [place] 2019-05-21 2019-05-21 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 [id number] Univers 09:20:00 09:20:00 GEE ity of [facility] 2019-05-13 2019-05-13 Refill [facility]UN[facility] 1.2.840.[id number] [place] [address] 00:00:00 00:00:00 Gee Arzola PRIMARY 350.1.13.10 ity of C[place] 4[place]2.[place].2.[place] [phone] Mo dicmn [address] [place] 2018-09-10 2018-09-10 Patient Doctor ASHLEY 1.2.840.114 [id number] Univers 00:00:00 00:00:00 Secure Msg Unassigned, MCKENNA 350.1.13.10 ity of [place] [facility]PITAL 4.2.7.2.686 Vickey as [phone] [facility] [address] Orders Doctor ASHLEY 1.2.840.114 [id number] Univers 00:00:00 00:00:00 Only Unassigned, MCKENNA 350.1.13.10 ity of [place] HOSPITAL 4.2.7.2.686 Vickey as [phone] [facility] [address] Results Test Description Test Time Test Comments Results Result Comments Source POCT HEMOGLOBIN A1C TEST 2022-06-13 17:03:00 Test Item Value Reference Range Interpretation Comme nts POCT HBA1C (test code = 4548-4) 7.4 % 4-6 A Lab Interpretation (test code = 14155-6) Abnormal [facility] HEMOGLOBIN A1C [id number] 17:03:00 Test Item Value Reference Range Interpretation Comments POCT HBA1C (test code = 4548-4) 7.4 % 4-6 A Lab Interpretation (test code = Abnormal 24375-0) [facility] HEMOGLOBIN A1C [id number] 21:26:00 Test Item Value Reference Range Interpretation Comments POCT HBA1C (test code = 4548-4) 11.4 % 4-6 A Lab Interpretation (test code = Abnormal 31316-4) [facility] HEMOGLOBIN A1C [id number] 21:26:00 Test Item Value Reference Range Interpretation Comments POCT HBA1C (test code = 4548-4) 11.4 % 4-6 A Lab Interpretation (test code = Abnormal 55314-8) [facility] [id number] 20:43:00 Test Item Value Reference Range Interpretation Comments GLUCOSE BEDSIDE (test 238 MG/DL 70-110 H Perfor med by certified code = GLUBED) explosive operator grenade at [facility] GLUCOSE [id number] 11:42:00 Test Item Value Reference Range Interpretation Comments GLUCOSE BEDSIDE (test 240 MG/DL 70-110 H Perfor med by certified code = GLUBED) explosive operator grenade at [facility] BASIC METABOLIC [id number] 11:01:00 Test Item Value Reference Range Interpretation [...] code = 7.9 mg/dL 8.0-10.5 L CA) [id number] 11:01:00 Test Item Value Reference Range Interpretation Comments PHOSPHOROUS (test code = PHOS) 2.4 MG/DL 2.5-4.9 L [id number] 11:01:00 Test Item Value Reference Range Interpretation Comments MAGNESIUM (test code = MAG) 1.89 mg/dL 1.80-2.40 CALCIUM [id number] 11:01:00 Test Item Value Reference Range Interpretation Comments CALCIUM IONIZED (test code = RYLEE) 1.15 MMOL/L 1.12-1.32 N GLUCOSE [id number] 08:02:00 Test Item Value Reference Range Interpretation Comments GLUCOSE BEDSIDE (test 183 MG/DL 70-110 H Perfor med by certified code = GLUBED) explosive operator grenade at [facility] CBC W/AUTO [id number] 05:11:00 Test Item Value Reference Range Interpretation [...] REQUIRED (test code NO = MDIFF) GLUCOSE [id number] 20:13:00 Test Item Value Reference Range Interpretation Comments GLUCOSE BEDSIDE (test 251 MG/DL 70-110 H Perfor med by certified code = GLUBED) explosive operator grenade at [facility] CBC W/AUTO [id number] 15:36:00 Test Item Value Reference Range Interpretation [...] 0.00 x10 3/uL 0.0-0.1 N NRBC#) GLUCOSE [id number] 11:15:00 Test Item Value Reference Range Interpretation Comments GLUCOSE BEDSIDE (test 148 MG/DL 70-110 H Perfor med by certified code = GLUBED) explosive operator grenade at [facility] GLUCOSE [id number] 06:11:00 Test Item Value Reference Range Interpretation Comments GLUCOSE BEDSIDE (test 106 MG/DL 70-110 N Perfor med by certified code = GLUBED) explosive operator grenade at [facility] BASIC METABOLIC [id number] 05:29:00 Test Item Value Reference Range Interpretation [...] code = 8.6 mg/dL 8.0-10.5 N CA) [id number] 05:29:00 Test Item Value Reference Range Interpretation Comments MAGNESIUM (test code = MAG) 2.54 mg/dL 1.80-2.40 H GLUCOSE [id number] 05:19:00 Test Item Value Reference Range Interpretation Comments GLUCOSE BEDSIDE (test 118 MG/DL 70-110 H [facility] med by certified code = GLUBED) explosive operator grenade at [facility] CBC W/AUTO [id number] 05:11:00 Test Item Value Reference Range Interpretation [...] REQUIRED (test code NO = MDIFF) GLUCOSE [id number] 04:07:00 Test Item Value Reference Range Interpretation Comments GLUCOSE BEDSIDE (test 170 MG/DL 70-110 H Perfor med by certified code = GLUBED) explosive operator grenade at [facility] GLUCOSE [id number] 03:11:00 Test Item Value Reference Range Interpretation Comments GLUCOSE BEDSIDE (test 219 MG/DL 70-110 H Perfor med by certified code = GLUBED) explosive operator grenade at [facility] GLUCOSE [id number] 02:08:00 Test Item Value Reference Range Interpretation Comments GLUCOSE BEDSIDE (test 256 MG/DL 70-110 H Perfor med by certified code = GLUBED) explosive operator grenade at [facility] GLUCOSE [id number] 01:12:00 Test Item Value Reference Range Interpretation Comments GLUCOSE BEDSIDE (test 307 MG/DL 70-110 H Perfor med by certified code = GLUBED) explosive operator grenade at [facility] GLUCOSE [id number] 00:14:00 Test Item Value Reference Range Interpretation Comments GLUCOSE BEDSIDE (test 333 MG/DL 70-110 H Perfor med by certified code = GLUBED) explosive operator grenade at [facility] GLUCOSE [id number] 23:07:00 Test Item Value Reference Range Interpretation Comments GLUCOSE BEDSIDE (test 328 MG/DL 70-110 H Perfor med by certified code = GLUBED) explosive operator grenade at [facility] GLUCOSE [id number] 21:15:00 Test Item Value Reference Range Interpretation Comments GLUCOSE BEDSIDE (test 402 MG/DL 70-110 H Perfor med by certified code = GLUBED) explosive operator grenade at [facility] GLUCOSE [id number] 20:33:00 Test Item Value Reference Range Interpretation Comments GLUCOSE BEDSIDE (test 417 MG/DL 70-110 H Perfor med by certified code = GLUBED) explosive operator grenade at [facility] CBC W/AUTO [id number] 19:48:00 Test Item Value Reference Range Interpretation [...] 0.00 x10 3/uL 0.0-0.1 N NRBC#) GLUCOSE [id number] 19:23:00 Test Item Value Reference Range Interpretation Comments GLUCOSE BEDSIDE (test 427 MG/DL 70-110 H Perfor med by certified code = GLUBED) explosive operator grenade at [facility] BASIC METABOLIC [id number] 18:50:00 Test Item Value Reference Range Interpretation [...] code = 7.8 mg/dL 8.0-10.5 L CA) [id number] 18:50:00 Test Item Value Reference Range Interpretation Comments MAGNESIUM (test code = MAG) 1.79 mg/dL 1.80-2.40 L CBC W/AUTO [id number] 18:21:00 Test Item Value Reference Range Interpretation [...] REQUIRED (test code NO = MDIFF) GLUCOSE [id number] 16:11:00 Test Item Value Reference Range Interpretation Comments GLUCOSE BEDSIDE (test 363 MG/DL 70-110 H Perfor med by certified code = GLUBED) explosive operator grenade at [facility] [id number] 15:33:00 Test Item Value Reference Range Interpretation Comments ACT-ISTAT (test code 255 SEC 74-137 H Perform ed by certified = ACTI) explosive operator grenade at [facility] GLUCOSE [id number] 14:11:00 Test Item Value Reference Range Interpretation Comments GLUCOSE BEDSIDE (test 433 MG/DL 70-110 H Perfor med by certified code = GLUBED) explosive operator grenade at [facility] GLUCOSE [id number] 14:09:00 Test Item Value Reference Range Interpretation Comments GLUCOSE BEDSIDE (test 464 MG/DL 70-110 H Perfor med by certified code = GLUBED) explosive operator grenade at [facility] - DUP LE ART [id number] 00:00:00 [facility] 1960 Sex: F Name: TAMY MARTINEZ [facility] : 1960 Age/S: 61 / F [address] [place] [address] Unit #: [id number] Loc: [place] [address] Phys: Inga Robertson MD Acct: [id number] Dis Date: Status:ADM IN PHONE #: [phone] Exam Date: 07/21/20211939 FAX #: [phone] Reason: HEMATOMA EXAMS: CPT CODE: [id number] DUP LE ART UNI/LTD 26427 PROCEDURE INFORMATION: Exam: US Duplex Left Lower [...] (2020) Probe: PAGE 1 Signed ReportBASIC METABOLIC [id number] 15:47:00 Test Item Value Reference Range Interpretation [...] Critica l result GLU) called to Renee TAFOYALAB.ATD at 15 47 07/19/21Nfela morrissey back resut and tech confirmed it's correct? YES BLOOD UREA NITROGEN 28 mg/dL 7-18 H (test code = BUN) GLOMERULAR FILTRATION 30.8 90-95 L Units of measure = RATE (test code = GFR) ml/mi n/1.73 m2 CREATININE (test code = 1.7 mg/dL 0.6-1.3 H CREAT) CALCIUM (test code = 9.6 mg/dL 8.0-10.5 N CA) CBC W/AUTO [id number] 15:41:00 Test Item Value Reference Range Interpretation [...] REQUIRED (test code NO = MDIFF) PROTHROMBIN [id number] 15:39:00 Test Item Value Reference Range Interpretation [...] recurrent infar ct). - XR CHEST 2 [id number] 00:00:00 [facility] : 1960 Sex: F FAX: Dany Dean MD [phone] [place]: [address]: PRE Name: TAMY MARTINEZ [facility] Analia Dutta : 1960 Age/S: 61/F [address] [place] [address] Unit #: [id number] Loc: [place] [address] Phys: Dany Mcdonald MD Acct: [id number] Dis Date: Status: PRE SDC PHONE #: [phone] Exam Date: 07/19/2021 1524 FAX #: [phone] Reason: PREOP EXAMS: CPT CODE: [id number] XR CHEST 2 V 89691 PROCEDURE INFORMATION: Exam: XR Chest Exam date [...] acute skeletal abnormality. IMPRESSION:No acute findings. at 1636 Reported and signed by: Geovanni Lacey M.D. CC: Dany Mcdonald MD Technologist: Rachel Ayon RT(R) Trnscrd Date/Time/By: 07/19/2021 (1635) : By: Kenneth Orig Print D/T: S: 07/19/2021 (1635) PAGE1 Signed Report HEMOGLOBIN [id number] 13:12:00 Test Item Value Reference Range Interpretation Comments HEMOGLOBIN PLASMA 9.2 mg/dL 0.0-4.9 A Values obt ained between (test code = HGBP) 5-15 mg/d L should be interpretedwith caution since such vari clara as sub-optimalveni puncture may increase re sults to this range.Perf ormed At: [facility] [address] [place], [place] [id number] ra Jeff RYAN Ph:[phone] ARTERIAL BLOOD [id number] 15:17:00 Test Item Value Reference Range Interpretation Comments ARTERIAL BLOOD GAS PH TEST NOT PERFORMED 7.35-7.45 (test code = PHA) ARTERIAL BLOOD GAS PCO2 TEST NOT PERFORMED 35-45 (test code = PCO2A) mmHg ARTERIAL BLOOD GAS PO2 TEST NOT PERFORMED 80-100 (test code = PO2A) mmHg BICARBONATE TOTAL HCO3 TEST NOT PERFORMED 22.0-26.0 (test code = HCO3) mmol/L GLUCOSE [id number] 11:03:00 Test Item Value Reference Range Interpretation Comments GLUCOSE BEDSIDE (test 193 MG/DL 70-110 H Perfor med by certified code = GLUBED) explosive operator grenade at [facility] GLUCOSE [id number] 07:27:00 Test Item Value Reference Range Interpretation Comments GLUCOSE BEDSIDE (test 115 MG/DL 70-110 H Perfor med by certified code = GLUBED) explosive operator grenade at [facility] BASIC METABOLIC [id number] 04:17:00 Test Item Value Reference Range Interpretation [...] 8.4 mg/dL 8.0-10.5 N CA) CBC W/AUTO [id number] 03:33:00 Test Item Value Reference Range Interpretation [...] = MDIFF) COMMENTS: Daily while on HeparinGLUCOSE [id number] 20:07:00 Test Item Value Reference Range Interpretation Comments GLUCOSE BEDSIDE (test 186 MG/DL 70-110 H Perfor med by certified code = GLUBED) explosive operator grenade at [facility] GLUCOSE [id number] 17:05:00 Test Item Value Reference Range Interpretation Comments GLUCOSE BEDSIDE (test 161 MG/DL 70-110 H Perfor med by certified code = GLUBED) explosive operator grenade at [facility] GLUCOSE [id number] 11:53:00 Test Item Value Reference Range Interpretation Comments GLUCOSE BEDSIDE (test 173 MG/DL 70-110 H Perfor med by certified code = GLUBED) explosive operator grenade at [facility] GLUCOSE [id number] 08:14:00 Test Item Value Reference Range Interpretation Comments GLUCOSE BEDSIDE (test 117 MG/DL 70-110 H Perfor med by certified code = GLUBED) explosive operator grenade at [facility] BASIC METABOLIC [id number] 07:39:00 Test Item Value Reference Range Interpretation [...] code = 8.9 mg/dL 8.0-10.5 N CA) [id number] 07:39:00 Test Item Value Reference Range Interpretation Comments MAGNESIUM (test code = MAG) 1.79 mg/dL 1.80-2.40 L CBC W/AUTO [id number] 07:26:00 Test Item Value Reference Range Interpretation [...] MANUAL DIFF REQUIRED (test code NO = ANEL) COMMENTS: Daily while on HeparinGLUCOSE [id number] 20:52:00 Test Item Value Reference Range Interpretation Comments GLUCOSE BEDSIDE (test 152 MG/DL 70-110 H Perfor med by certified code = GLUBED) explosive operator grenade at [facility] GLUCOSE [id number] 16:59:00 Test Item Value Reference Range Interpretation Comments GLUCOSE BEDSIDE (test 180 MG/DL 70-110 H Perfor med by certified code = GLUBED) explosive operator grenade at [facility] HEMOGLOBIN [id number] 13:10:00 Test Item Value Reference Range Interpretation Comments HEMOGLOBIN PLASMA 4.0 mg/dL 0.0-4.9 Values obt ained between (test code = HGBP) 5-15 mg/d L should be interpretedwith caution since such vari clara as sub-optimalveni puncture may increase re sults to this range.Perf ormed At: [facility] [id number] ra Jeff RYAN Ph:[phone] HEMOGLOBIN [id number] 13:10:00 Test Item Value Reference Range Interpretation Comments HEMOGLOBIN PLASMA 21.8 mg/dL 0.0-4.9 A Results verified by (test code = HGBP) repeat te stingValues obtained betwee n 5-15 mg/dL should be interpretedwith caution since such vari clara as sub-optimalveni puncture may increase re sults to this range.Perf ormed At: [facility] [id number] ra Jeff RYAN Ph:[phone] COMMENTS: Hemoglobin plasma nowGLUCOSE [id number] 11:52:00 Test Item Value Reference Range Interpretation Comments GLUCOSE BEDSIDE (test 157 MG/DL 70-110 H Perfor med by certified code = GLUBED) explosive operator grenade at [facility] GLUCOSE [id number] 08:01:00 Test Item Value Reference Range Interpretation Comments GLUCOSE BEDSIDE (test 168 MG/DL 70-110 H Perfor med by certified code = GLUBED) explosive operator grenade at [facility] BASIC METABOLIC [id number] 05:44:00 Test Item Value Reference Range Interpretation [...] code = 8.6 mg/dL 8.0-10.5 N CA) [id number] 05:44:00 Test Item Value Reference Range Interpretation Comments MAGNESIUM (test code = MAG) 1.81 mg/dL 1.80-2.40 N CBC W/AUTO [id number] 05:33:00 Test Item Value Reference Range Interpretation [...] Perfor med by certified code = GLUBED) explosive operator grenade at [facility] GLUCOSE [id number] 16:12:00 Test Item Value Reference Range Interpretation Comments GLUCOSE BEDSIDE (test 171 MG/DL 70-110 H Perfor med by certified code = GLUBED) explosive operator grenade at [facility] HGB [id number] 15:52:00 Test Item Value Reference Range Interpretation Comments HEMOGLOBIN (test code = HGB) 7.9 g/dL 11.0-15.0 L HEMATOCRIT (test code = HCT) 24.3 % 33.0-45.0 L POC ARTERIAL BLOOD [id number] 14:58:00 Test Item Value Reference Range Interpretation Comments POC ARTERIAL BLOOD GAS PH (test 7.524 7.35-7.45 HH code = POCPHA) POC ARTERIAL BLOOD GAS PCO2 34.0 mmHg 35.0-45 L (test code = PTTVXK1L) POC TCO2 ARTERIAL (test code = 29.1 POCTCO2) POC ARTERIAL BLOOD GAS PO2 (test 78.6 mmHg 80-100.0 L code = VFBYC4S) POC HCO3 ARTERIAL (test code = 28.1 MMOL/L 22.0-26.0 HH MBYKTC2N) POC BASE EXCESS (test code = 5.3 MMOL/L -4.0-4.0 H POCBEA) POC O2 SATURATION (test code = 96.9 % 90-100 N POCO2S) FIO2 (test code = FIO2A) 21 % PaO2/FiO2 (test code = [id number]) 374.28 mm/Hg ABG SITE (test code = SITEA) L Radial NEREYDA'S TEST (test code = Positive ALLENS) BASIC METABOLIC [id number] 14:58:00 Test Item Value Reference Range Interpretation [...] (test code = POCGLU) 209 MG/DL HEMOGLOBIN [id number] 14:58:00 Test Item Value Reference Range Interpretation Comments HEMOGLOBIN ABG (test code = HGB/ABG) 6.4 G/DL 11.0-15.0 L [id number] 14:58:00 Test Item Value Reference Range Interpretation Comments HEMATOCRIT (test code = HCT/ABG) 19 % 33.0-45.0 L POC LACTIC [id number] 14:58:00 Test Item Value Reference Range Interpretation Comments POC LACTIC ACID (test code = 0.9 mmol/l 0.9-1.7 N POCLAC) GLUCOSE [id number] 11:20:00 Test Item Value Reference Range Interpretation Comments GLUCOSE BEDSIDE (test 182 MG/DL 70-110 H Perfor med by certified code = GLUBED) explosive operator grenade at [facility] GLUCOSE [id number] 07:22:00 Test Item Value Reference Range Interpretation Comments GLUCOSE BEDSIDE (test 97 MG/DL 70-110 N Perfor med by certified code = GLUBED) explosive operator grenade at [facility] COMPREHENSIVE METABOLIC [id number] 05:51:00 Test Item Value Reference Range Interpretation [...] 20-125 N TOTAL (test code = ALKP) [id number] 05:51:00 Test Item Value Reference Range Interpretation Comments MAGNESIUM (test code = MAG) 1.72 mg/dL 1.80-2.40 L CBC W/AUTO [id number] 05:42:00 Test Item Value Reference Range Interpretation [...] on Impella support.COMMENTS: Daily while on HeparinGLUCOSE [id number] 20:19:00 Test Item Value Reference Range Interpretation Comments GLUCOSE BEDSIDE (test 173 MG/DL 70-110 H Perfor med by certified code = GLUBED) explosive operator grenade at [facility] GLUCOSE [id number] 18:00:00 Test Item Value Reference Range Interpretation Comments GLUCOSE BEDSIDE (test 216 MG/DL 70-110 H Perfor med by certified code = GLUBED) explosive operator grenade at [facility] GLUCOSE [id number] 12:46:00 Test Item Value Reference Range Interpretation Comments GLUCOSE BEDSIDE (test 139 MG/DL 70-110 H Perfor med by certified code = GLUBED) explosive operator grenade at [facility] GLUCOSE [id number] 08:22:00 Test Item Value Reference Range Interpretation Comments GLUCOSE BEDSIDE (test 126 MG/DL 70-110 H Perfor med by certified code = GLUBED) explosive operator grenade at [facility] BASIC METABOLIC [id number] 05:13:00 Test Item Value Reference Range Interpretation [...] code = 7.7 mg/dL 8.0-10.5 L CA) [id number] 05:13:00 Test Item Value Reference Range Interpretation Comments MAGNESIUM (test code = MAG) 1.68 mg/dL 1.80-2.40 L B-TYPE NATRIURETIC [id number] 05:12:00 Test Item Value Reference Range Interpretation Comments B-TYPE NATRIURETIC PEPTIDE (test 223.0 PG/ML 0-100 H code = BNP) CBC W/AUTO [id number] 05:08:00 Test Item Value Reference Range Interpretation [...] Daily while on Heparin- DUP UE ART [id number] 00:00:00 [facility] : 1960 Sex: F Name: TAMY MARTINEZ [facility] : 1960 Age/S: 61 / F [address] [place] [address] t #: [id number] Loc: [place] [address] Phys: Loly Agee NP Acct: [id number] Dis Date: Status: ADM IN PHONE #: [phone] Exam Date: 06/26/2021 0951 FAX #: [phone] Reason: S/P IMPELLA REMOVAL/RULE OUT HEMATOMA EXAMS: CPT CODE: [id number] [facility] UNI/LTD 44755 PROCEDURE INFORMATION: Exam: US Duplex Right Lower [...] PAGE 1 Signed Report- XR CHEST 1 [id number] 00:00:00 [facility] : 1960 Sex: F FAX: Alejandra Fraga MD [phone] [place]: St: ADM FAX: Zoraida Felder [phone] FAX:Dany Dean MD [phone] Name: TAMY MARTINEZ [facility] [place] : 1960 Age/S: 61/F [address] [place] [address] Unit #: [id number] Loc: [address] [place] [address] Phys: Zoraida Felder AGACNP Acct: [id number] Dis Date: Status: ADM IN PHONE #: [phone] Exam Date: 06/26/2021 0611 FAX #: [phone] Reason: fluid overload EXAMS: CPT CODE: [id number] XR CHEST 1 V 38811 PROCEDURE INFORMATION: Exam: XR Chest Exam date [...] S: 06/26/2021 (075) PAGE 1 Signed ReportGLUCOSE [id number] 20:45:00 Test Item Value Reference Range Interpretation Comments GLUCOSE BEDSIDE (test 109 MG/DL 70-110 N Perfor med by certified code = GLUBED) explosive operator grenade at [facility] GLUCOSE [id number] 17:17:00 Test Item Value Reference Range Interpretation Comments GLUCOSE BEDSIDE (test 188 MG/DL 70-110 H Perfor med by certified code = GLUBED) explosive operator grenade at [facility] HGB [id number] 17:07:00 Test Item Value Reference Range Interpretation Comments HEMOGLOBIN (test code = HGB) 7.3 g/dL 11.0-15.0 L HEMATOCRIT (test code = HCT) 22.9 % 33.0-45.0 L GLUCOSE [id number] 12:04:00 Test Item Value Reference Range Interpretation Comments GLUCOSE BEDSIDE (test 265 MG/DL 70-110 H Perfor med by certified code = GLUBED) explosive operator grenade at [facility] GLUCOSE [id number] 07:41:00 Test Item Value Reference Range Interpretation Comments GLUCOSE BEDSIDE (test 288 MG/DL 70-110 H Perfor med by certified code = GLUBED) explosive operator grenade at [facility] [id number] 04:51:00 Test Item Value Reference Range Interpretation Comments MAGNESIUM (test code = MAG) 2.48 mg/dL 1.80-2.40 H CALCIUM [id number] 04:51:00 Test Item Value Reference Range Interpretation Comments CALCIUM IONIZED (test code = RYLEE) 1.01 MMOL/L 1.12-1.32 L CBC W/AUTO [id number] 04:33:00 Test Item Value Reference Range Interpretation [...] be done morning of Heart CathBASIC METABOLIC [id number] 04:10:00 Test Item Value Reference Range Interpretation [...] done morning of Heart CathLACTIC ACID 2ND [id number] 04:09:00 Test Item Value Reference Range Interpretation Comments LACTIC ACID 2ND REPEAT (test code 2.0 mmol/L 0.4-1.9 H = LACT2) ABOUT TO DRAW REPEATBASIC METABOLIC [id number] 01:02:00 Test Item Value Reference Range Interpretation [...] 6.7 mg/dL 8.0-10.5 L CA) LACTIC ACID [id number] 00:57:00 Test Item Value Reference Range Interpretation Comments LACTIC ACID REPEAT (test code = 3.0 mmol/l 0.4-1.9 H LACTR) COMPREHENSIVE METABOLIC [id number] 21:11:00 Test Item Value Reference Range Interpretation [...] 20-125 N TOTAL (test code = ALKP) [id number] 21:11:00 Test Item Value Reference Range Interpretation Comments PHOSPHOROUS (test code = PHOS) 3.5 MG/DL 2.5-4.9 N [id number] 21:11:00 Test Item Value Reference Range Interpretation Comments MAGNESIUM (test code = MAG) 1.99 mg/dL 1.80-2.40 N CALCIUM [id number] 21:11:00 Test Item Value Reference Range Interpretation Comments CALCIUM IONIZED (test code = RYLEE) 0.89 MMOL/L 1.12-1.32 L LACTIC [id number] 21:05:00 Test Item Value Reference Range Interpretation Comments LACTIC ACID (test code = LACT) 2.2 mmol/L 0.4-1.9 H CBC W/AUTO [id number] 21:02:00 Test Item Value Reference Range Interpretation [...] REQUIRED (test NO code = MDIFF) GLUCOSE [id number] 20:14:00 Test Item Value Reference Range Interpretation Comments GLUCOSE BEDSIDE (test 301 MG/DL 70-110 H Perfor med by certified code = GLUBED) explosive operator grenade at [facility] POC ARTERIAL BLOOD [id number] 16:54:00 Test Item Value Reference Range Interpretation Comments POC ARTERIAL BLOOD GAS PH (test 7.268 7.35-7.45 LL code = POCPHA) POC ARTERIAL BLOOD GAS PCO2 46.0 mmHg 35.0-45 H (test code = MPMGFU8M) POC TCO2 ARTERIAL (test code = 22.4 POCTCO2) POC ARTERIAL BLOOD GAS PO2 (test 247.9 mmHg 80-100.0 HH code = STKGL3L) POC HCO3 ARTERIAL (test code = 21.0 MMOL/L 22.0-26.0 L ECFHNH4F) POC BASE EXCESS (test code = -5.9 MMOL/L -4.0-4.0 L POCBEA) POC O2 SATURATION (test code = 99.8 % 90-100 N POCO2S) ABG SITE (test code = SITEA) Central Line BASIC METABOLIC [id number] 16:54:00 Test Item Value Reference Range Interpretation [...] (test code = POCGLU) 295 MG/DL HEMOGLOBIN [id number] 16:54:00 Test Item Value Reference Range Interpretation Comments HEMOGLOBIN ABG (test code = HGB/ABG) 7.0 G/DL 11.0-15.0 L [id number] 16:54:00 Test Item Value Reference Range Interpretation Comments HEMATOCRIT (test code = HCT/ABG) 21 % 33.0-45.0 L POC LACTIC [id number] 16:54:00 Test Item Value Reference Range Interpretation Comments POC LACTIC ACID (test code = 6.5 mmol/l 0.9-1.7 HH POCLAC) [id number] 16:49:00 Test Item Value Reference Range Interpretation Comments ACT-ISTAT (test code 136 SEC 74-137 N Perform ed by certified = ACTI) explosive operator grenade at [facility] THROMBOPLASTIN TIME [id number] 13:10:00 Test Item Value Reference Range Interpretation Comments THROMBOPLASTIN TIME 96.3 Seconds 25.0-39.5 H Therape utic Range: PARTIAL (test code = 50.4 - 88.3 Seconds PTT) Effective 06/26/2018 CBC W/O [id number] 13:01:00 Test Item Value Reference Range Interpretation [...] 9.5 fL 7.0-9.0 H = MPV) GLUCOSE [id number] 11:31:00 Test Item Value Reference Range Interpretation Comments GLUCOSE BEDSIDE (test 165 MG/DL 70-110 H Perfor med by certified code = GLUBED) explosive operator grenade at [facility] THROMBOPLASTIN TIME [id number] 10:57:00 Test Item Value Reference Range Interpretation Comments THROMBOPLASTIN TIME 93.7 Seconds 25.0-39.5 H Therape utic Range: PARTIAL (test code = 50.4 - 88.3 Seconds PTT) Effective 06/26/2018 CBC W/AUTO [id number] 10:48:00 Test Item Value Reference Range Interpretation [...] REQUIRED (test NO code = MDIFF) GLUCOSE [id number] 08:41:00 Test Item Value Reference Range Interpretation Comments GLUCOSE BEDSIDE (test 201 MG/DL 70-110 H Perfor med by certified code = GLUBED) explosive operator grenade at [facility] THROMBOPLASTIN TIME [id number] 08:31:00 Test Item Value Reference Range Interpretation Comments THROMBOPLASTIN TIME 115.0 Seconds 25.0-39.5 H Therap eutic PARTIAL (test code = Range: 50.4 - 88.3 PTT) Seconds Effective 06/26/2018 THROMBOPLASTIN TIME [id number] 05:47:00 Test Item Value Reference Range Interpretation Comments THROMBOPLASTIN TIME 129.9 Seconds 25.0-39.5 H Therap eutic PARTIAL (test code = Range: 50.4 - 88.3 PTT) Seconds Effective 06/26/2018 BASIC METABOLIC [id number] 05:47:00 Test Item Value Reference Range Interpretation [...] code = 8.2 mg/dL 8.0-10.5 N CA) [id number] 05:47:00 Test Item Value Reference Range Interpretation Comments MAGNESIUM (test code = MAG) 1.79 mg/dL 1.80-2.40 L CBC W/AUTO [id number] 05:25:00 Test Item Value Reference Range Interpretation [...] Impella support.COMMENTS: Daily while on HeparinTHROMBOPLASTIN TIME [id number] 02:34:00 Test Item Value Reference Range Interpretation Comments THROMBOPLASTIN TIME 45.4 Seconds 25.0-39.5 H Therape utic Range: PARTIAL (test code = 50.4 - 88.3 Seconds PTT) Effective 06/26/2018 THROMBOPLASTIN TIME [id number] 22:54:00 Test Item Value Reference Range Interpretation Comments THROMBOPLASTIN TIME 33.3 Seconds 25.0-39.5 Therape utic Range: PARTIAL (test code = 50.4 - 88.3 Seconds PTT) Effective 06/26/2018 THROMBOPLASTIN TIME [id number] 21:14:00 Test Item Value Reference Range Interpretation Comments THROMBOPLASTIN TIME 65.5 Seconds 25.0-39.5 H Therape utic Range: PARTIAL (test code = 50.4 - 88.3 Seconds PTT) Effective 06/26/2018 GLUCOSE [id number] 20:25:00 Test Item Value Reference Range Interpretation Comments GLUCOSE BEDSIDE (test 316 MG/DL 70-110 H Perfor med by certified code = GLUBED) explosive operator grenade at [facility] THROMBOPLASTIN TIME [id number] 20:19:00 Test Item Value Reference Range Interpretation Comments THROMBOPLASTIN TIME 104.0 Seconds 25.0-39.5 H Therap eutic PARTIAL (test code = Range: 50.4 - 88.3 PTT) Seconds Effective 06/26/2018 CBC W/AUTO [id number] 20:07:00 Test Item Value Reference Range Interpretation [...] DONE WITHIN THE LAST 24 HOURSTHROMBOPLASTIN TIME [id number] 19:07:00 Test Item Value Reference Range Interpretation Comments THROMBOPLASTIN TIME > 200.0 25.0-39.5 H Therape utic PARTIAL (test code = Seconds Range: 50.4 - 88.3 PTT) Seconds Effective 06/26/2018 COMMENTS: Start 2hrs post procedure check q1hr until 2 results in range, then q4 GLUCOSE [id number] 17:11:00 Test Item Value Reference Range Interpretation Comments GLUCOSE BEDSIDE (test 365 MG/DL 70-110 H Perfor med by certified code = GLUBED) explosive operator grenade at [facility] THROMBOPLASTIN TIME [id number] 17:04:00 Test Item Value Reference Range Interpretation Comments THROMBOPLASTIN TIME > 200.0 25.0-39.5 H Therape utic PARTIAL (test code = Seconds Range: 50.4 - 88.3 PTT) Seconds Effective 06/26/2018 COMMENTS: Start 2hrs post procedure check q1hr until 2 results in range, then q4 [id number] 15:09:00 Test Item Value Reference Range Interpretation Comments ACT-ISTAT (test code 267 SEC 74-137 H Perform ed by certified = ACTI) explosive operator grenade at [facility] [id number] 14:22:00 Test Item Value Reference Range Interpretation Comments ACT-ISTAT (test code 255 SEC 74-137 H Perform ed by certified = ACTI) explosive operator grenade at [facility] [id number] 13:52:00 Test Item Value Reference Range Interpretation Comments ACT-ISTAT (test code 362 SEC 74-137 H Perform ed by certified = ACTI) explosive operator grenade at [facility] [id number] 13:38:00 Test Item Value Reference Range Interpretation Comments ACT-ISTAT (test code 237 SEC 74-137 H Perform ed by certified = ACTI) explosive operator grenade at [facility] [id number] 13:04:00 Test Item Value Reference Range Interpretation Comments ACT-ISTAT (test code 273 SEC 74-137 H Perform ed by certified = ACTI) explosive operator grenade at [facility] [id number] 12:41:00 Test Item Value Reference Range Interpretation Comments ACT-ISTAT (test code 315 SEC 74-137 H Perform ed by certified = ACTI) explosive operator grenade at [facility] GLUCOSE [id number] 11:42:00 Test Item Value Reference Range Interpretation Comments GLUCOSE BEDSIDE (test 332 MG/DL 70-110 H Perfor med by certified code = GLUBED) explosive operator grenade at [facility] PROTHROMBIN [id number] 13:57:00 Test Item Value Reference Range Interpretation [...] (to prevent recurrent infar ct). BASIC METABOLIC [id number] 13:47:00 Test Item Value Reference Range Interpretation [...] 8.9 mg/dL 8.0-10.5 N CA) CBC W/AUTO [id number] 13:35:00 Test Item Value Reference Range Interpretation [...] REQUIRED (test code NO = MDIFF) GLUCOSE [id number] 16:18:00 Test Item Value Reference Range Interpretation Comments GLUCOSE BEDSIDE (test 227 MG/DL 70-110 H Perfor med by certified code = GLUBED) explosive operator grenade at [facility] TROP-I HIGH [id number] 16:11:00 Test Item Value Reference Range Interpretation Comments TROP-I HIGH 1599 ng/L 0-34 HH CAUTION: Units of the SENSITIVITY (test current te st methodology code = TROPIHS) (ng/L) diffe rfrom the prior test meth odology (ng/mL) by a fa ctor of 1000. 99t h Percentile Uppe r Reference Limit (URL): Fe males: 34 ng/LMales: 54 n g/L In order to distin [facility] acute elevations of h igh sensitivitytrop onin from other clinical conditions, the FourthUnive rsal Definition of M yocardial Infarction stressesclinica l assessment and the demonstration o f a rise and/orfall in s erial troponin result s above the URL. These resu lts were obtained using Siemens AtellAttune IM TnI Hreagent. Results from di fferent methodologies s hould not becompared to o ne another as quantitative results and URLs mayvar y by method. LIPOPROTEIN [id number] 15:14:00 Test Item Value Reference Range Interpretation Comments LIPOPROTEIN LDL 56.8 mg/dL 0-100 N <100 OPTIMAL 100-129 NEAR (test code = LDL) OPTIMAL/AB OVE [id number] HIGH>WO=298 JUSITNO Y HIGH*Guidelines provided by the National Cholesterol EducationProgra m Adult Treatment Panel III TROP-I HIGH [id number] 14:57:00 Test Item Value Reference Range Interpretation [...] and URLs mayvar y by method. GLUCOSE [id number] 11:56:00 Test Item Value Reference Range Interpretation Comments GLUCOSE BEDSIDE (test 241 MG/DL 70-110 H Perfor med by certified code = GLUBED) explosive operator grenade at [facility] GLUCOSE [id number] 08:03:00 Test Item Value Reference Range Interpretation Comments GLUCOSE BEDSIDE (test 209 MG/DL 70-110 H Perfor med by certified code = GLUBED) explosive operator grenade at [facility] BASIC METABOLIC [id number] 04:59:00 Test Item Value Reference Range Interpretation [...] 9.2 mg/dL 8.0-10.5 N CA) CBC W/AUTO [id number] 04:50:00 Test Item Value Reference Range Interpretation [...] REQUIRED (test code NO = MDIFF) GLUCOSE [id number] 20:31:00 Test Item Value Reference Range Interpretation Comments GLUCOSE BEDSIDE (test 339 MG/DL 70-110 H Perfor med by certified code = GLUBED) explosive operator grenade at [facility] [id number] 15:58:00 Test Item Value Reference Range Interpretation Comments ACT-ISTAT (test code 154 SEC 74-137 H Perform ed by certified = ACTI) explosive operator grenade at [facility] [id number] 15:05:00 Test Item Value Reference Range Interpretation Comments ACT-ISTAT (test code 178 SEC 74-137 H Perform ed by certified = ACTI) explosive operator grenade at [facility] [id number] 13:53:00 Test Item Value Reference Range Interpretation Comments ACT-ISTAT (test code 207 SEC 74-137 H Perform ed by certified = ACTI) explosive operator grenade at [facility] GLUCOSE [id number] 12:53:00 Test Item Value Reference Range Interpretation Comments GLUCOSE BEDSIDE (test 150 MG/DL 70-110 H Perfor med by certified code = GLUBED) explosive operator grenade at [facility] [id number] 12:12:00 Test Item Value Reference Range Interpretation Comments ACT-ISTAT (test code 261 SEC 74-137 H Perform ed by certified = ACTI) explosive operator grenade at [facility] [id number] 11:36:00 Test Item Value Reference Range Interpretation Comments ACT-ISTAT (test code 261 SEC 74-137 H Perform ed by certified = ACTI) explosive operator grenade at [facility] [id number] 11:02:00 Test Item Value Reference Range Interpretation Comments ACT-ISTAT (test code 321 SEC 74-137 H Perform ed by certified = ACTI) explosive operator grenade at [facility] GLUCOSE [id number] 09:52:00 Test Item Value Reference Range Interpretation Comments GLUCOSE BEDSIDE (test 147 MG/DL 70-110 H Perfor med by certified code = GLUBED) explosive operator grenade at [facility] BASIC METABOLIC [id number] 14:34:00 Test Item Value Reference Range Interpretation [...] = 8.8 mg/dL 8.0-10.5 N CA) PROTHROMBIN [id number] 14:28:00 Test Item Value Reference Range Interpretation [...] (to prevent recurrent infar ct). CBC W/AUTO [id number] 14:20:00 Test Item Value Reference Range Interpretation [...] 0.0-0.1 N NRBC#) - XR CHEST 2 [id number] 00:00:00 [facility] 1960 Sex: F FAX: Dany Dean MD [phone] [place]: [address]: REG Name: TAMY MARTINEZ [facility] : 1960 Age/S: 61/F [address] [place] [address] Unit #: [id number] Loc: [place] [address] Phys: Dany Mcdonald MD Acct: [id number] Dis Date: Status: REG [facility] PHONE #: [phone] Exam Date: 05/10/2021 1452 FAX #: Reason: PREOP EXAMS: CPT CODE: [id number] XR CHEST 2 V 04286 PROCEDURE INFORMATION: Exam: XR Chest Exam date [...] thoracic spine. IMPRESSION: No acute cardiopulmonary process. [id number] Reported and signed by: Felton Michelle M.D. CC: Dany Mcdonald MD Technologist: José Miguel Bustos RT(R) Trnscrd Date/Time/By: 05/10/2021 (2309) : By: [email or web address] Orig Print D/T: S: 05/10/2021 (2309) PAGE 1 Signed ReportPOCT-GLUCOSE [id number] 21:54:00 Test Item Value Reference Range Interpretation Comments POC-GLUCOSE METER 194 mg/dL 70-110 H TESTED AT [facility] 67 ([employer]) (test code = JENIFER Lemons [facility] 1538) [address] POCT-GLUCOSE [id number] 16:50:00 Test Item Value Reference Range Interpretation Comments POC-GLUCOSE METER 134 mg/dL 70-110 H TESTED AT [facility] 6720 ([employer]) (test code = JENIFER [place] 1538) [address] POCT-GLUCOSE [id number] 12:10:00 Test Item Value Reference Range Interpretation Comments POC-GLUCOSE METER 155 mg/dL 70-110 H TESTED AT [place] [address] ([facility]) (test code = JENIFER [place] 1538) [address] POCT-GLUCOSE [id number] 05:34:00 Test Item Value Reference Range Interpretation Comments POC-GLUCOSE METER 249 mg/dL 70-110 H TESTED AT [place] [address] ([facility]) (test code = [facility]ER Lem[facility] 1538) [address] POCT-GLUCOSE [id number] 00:09:00 Test Item Value Reference Range Interpretation Comments POC-GLUCOSE METER 236 mg/dL 70-110 H TESTED AT [place] [address] ([facility]) (test code = [facility]EN[facility]ER Lem[facility] 1538) [address] POCT-GLUCOSE [id number] 21:17:00 Test Item Value Reference Range Interpretation Comments POC-GLUCOSE METER 153 mg/dL 70-110 H TESTED AT [place] [address] ([facility]) (test code = JENIFER [facility] 1538) [address] POCT-GLUCOSE [id number] 18:23:00 Test Item Value Reference Range Interpretation Comments POC-GLUCOSE METER 148 mg/dL 70-110 H TESTED AT [place] [address] ([facility]) (test code = [facility] Lemons [facility] 1538) [address] [place], UGI, WITHOUT [id number] 17:33:00Reason for exam:->Please evaluate with thin barium [...] [place] Verified Date/Time: 10/16/2018 17:33:25 Reading Location: [address] Reading Room -GLUCOSE [id number] 05:59:00 Test Item Value Reference Range Interpretation Comments POC-GLUCOSE METER 192 mg/dL 70-110 H TESTED AT [facility] 6720 ([employer]) (test code = [facility] Lem[facility] 1538) [address] POCT-GLUCOSE [id number] 00:39:00 Test Item Value Reference Range Interpretation Comments POC-GLUCOSE METER 172 mg/dL 70-110 H TESTED AT [facility] 6720 (BEAKER) (test code = [facility] 1538) [address] POCT-GLUCOSE [id number] 22:13:00 Test Item Value Reference Range Interpretation Comments POC-GLUCOSE METER 187 mg/dL 70-110 H TESTED AT [facility] 6720 (BEAKER) (test code = [facility] Lem[facility] 1538) [address] RAD, CHEST, 1 VIEW, NON [id number] 18:59:00Reason for exam:->preopShould this be performed at [...] No acute bony abnormality. Signed: Lottie Mcgraw [facility] Verified Date/Time: 10/15/2018 18:59:09 Reading Location: [address] Consult Reading Room BASI METABOLIC [id number] 18:46:00 Test Item Value Reference Range Interpretation [...] NOT APPLICABLE FOR DIALYSIS PATIEN TS. HEMOGLOBIN [id number] 18:36:00 Test Item Value Reference Range Interpretation Comments HEMOGLOBIN A1C (BEAKER) (test code = 9.7 % 4.3-6.1 H 368) POCT-GLUCOSE [id number] 18:14:00 Test Item Value Reference Range Interpretation Comments POC-GLUCOSE METER 207 mg/dL 70-110 H TESTED AT [facility] 6720 (BEAKER) (test code = JENIFER [place] 1538) [address] CBC W/PLT COUNT & AUTO [id number] 18:13:00 Test Item Value Reference Range Interpretation [...] Note Provider Source 2021-07-23 10:08:00-00:00 [facility] ([facility]) Discharge Summary REPORT#:[id number] REPORT STATUS: Signed DATE:07/23/21 TIME: 1008 PATIENT: TAMY MARTINEZ UNIT #: [id number] ROOM/BED: [place] [address] : [birth year] AGE: 61 SEX: F ATTEND: Nicolle Robertson MD ADM AUTHOR: Zoraida Felder CNP * ALL edits or amendments must be made on the el PressPad/computer document * PCP PCP PCP: PCP: No [...] moves all Musculoskeletal: full range of motion Neuro/REIMBURSEMENT MANAGER: alert, oriented X 3 Skin: dry Wound/incision: Location: Left groin hematoma stable Psychiatry: no hallucinations, normal affect, no rmal judgment/insight, normal mood Results Findings/Data: Laboratory Tests: 07/23 07/23 07/22 07/22 0751 0405 2000 1500 Chemistry POC Glucose (70 - [...] (Auto) (14.0 - 32.0 %) 23.2 17.7 [place] % (Auto) (4.8 - 9.0 %) 10.5 H 9.2 H Eos % (Auto) (0.3 - 3.7 %) 1.3 0.3 Baso % (Auto) (0.0 - 2.0 %) 0.3 0.1 Neut # (Auto) (2.0 - 7.6 x10 3/uL) 5.55 10.65 H Lymph # (Auto) (1.0 - 3.8 x10 3/uL) 2.03 2.62 [place] # (Auto) (0.1 - 0.8 x10 3/uL) [...] Instructions Additional Discharge Routines: Attending Follow- Up, Treasury Associate Follow-Up )( Diet: Diabetic )( Activity: Resume [...] that the foregoing medication list in t he medical record is true, accurate, and complete to the best of my knowled ge. at 1013 Electronically Signed by Inga Robertson MD on at 2201 RPT #:[id number] END OF REPORT 2021-07-23 07:32:00-00:00 [facility] Progress Note REPORT#:[id number] REPORT STATUS: Signed DATE:07/23/21 TIME: 731 PATIENT: TAMY MARTINEZ UNIT #: [id number] ROOM/BED: [place] [address] : 64 AGE: 61 SEX: F ATTEND: Nicolle Robertson MD ADM AUTHOR: Zoraida Felder CNP * ALL edits or amendments must be made on the el PressPad/Suso document * See Addendum Subjective Patient reports: [...] 14 115/56 80 98 07/23 0000 36.7 / 0000 36.7 66 15 122/58 84 95 / 2300 66 33 120/59 85 96 05/ 2200 66 62 126/58 84 98 07/22 2101 70 29 110/53 76 96 07/22 2001 36.9 73 104/60 76 100 05/ 1901 67 16 130/56 81 97 / 1624 36.9 Room air 05/ 1432 68 18 107/55 79 05/ 1430 99 05/ 1320 71 16 99 05/ 1315 70 15 95 05/ 1301 73 114/71 85 99 05/ 1230 67 24 99 05/ 1201 66 18 140/60 87 98 05/ 1145 67 19 98 05/ 1130 36.4 Room air / 1130 68 99 05/ 1115 71 92 05/12 1100 69 137/82 103 86 05/ 1045 66 24 98 05/ 1030 65 16 98 PATIENT WEIGHT: Weight [...] calf tenderness, no edema Musculoskeletal: normal inspection Neuro/REIMBURSEMENT MANAGER: alert, oriented X 3, normal speech Wound/incision: Location: left groin access hematoma stable Psychiatry: normal affect, normal judgment/insig ht, normal mood Results Findings/Data: Laboratory Tests 05/13 05/12 05/12 0751 2000 1104 Chemistry POC Glucose (70 - 110 [...] (Auto) (14.0 - 32.0 %) 23.2 17.7 [place] % (Auto) (4.8 - 9.0 %) 10.5 H 9.2 H Eos % (Auto) (0.3 - 3.7 %) 1.3 0.3 Baso % (Auto) (0.0 - 2.0 %) 0.3 0.1 Neut # (Auto) (2.0 - 7.6 x10 3/uL) 5.55 10.65 H Lymph # (Auto) (1.0 - 3.8 x10 3/uL) 2.03 2.62 [place] # (Auto) (0.1 - 0.8 x10 3/uL) [...] affternoon or tomorrow morning. at 1346 RPT #:[id number] END OF REPORT 2021-07-23 04:31:00-00:00 [id number] [place] [address] PATIENT NAME: TAMY MARTINEZ ADMIT DATE: 0 07/21/21 ACCOUNT NO: [id number] ROOM NO: [facility] AGE: 61 REPORT TYPE: eECHOCARDIOGRAM REPORT SEX: F ADMITTING PHYSICIAN:Inga Robertson MD ATTENDING PHYSICIAN:Inga Robertson MD *[facility]* [address] [place] [address]. [place] [address] Limited Transthoracic Echocardiogram Patient: Tamy Martinez Study Date: 07/21/2021 BP: 105 / 51 Location: [facility] URN: [id number] : 1960 Age: 61 Height: 61 in / 155 cm Gender: F Weight: 204 .6 lb / 93 kg BMI/BSA: 38.7 kg/m 2 / 2.05 m 2 *Ordering Physician: * Inga Robertson MD *Interpreting Physician: Inga Simon MD *Color Specialist: * Danny Dobbins Indications: V TACH. Study [...] of pleural fluid accumulation. Measurements PATIENT NAME: TAMY MARTINEZ ACCOUNT #: [id number] Left ventricle Value 06/24/2021 Ref IVORY, LAX [...] is mildly increased. Systolic function is normal. T he estimated ejection fraction is 60-66%. Prepared and electronically signed by Inga Robertson MD 07/23/2021 04:31 Electronically Signed by Inga Robertson MD on 0 07/23/21 at 0431 PATIENT NAME: TAMY MARTINEZ ACCOUNT #: [id number] 2021-07-22 15:06:00-00:00 [facility] ([facility]) Critical Care Consult Note REPORT#:[id number] REPORT STATUS: Signed DATE:07/22/21 TIME: 1506 PATIENT: TAMY MARTINEZ UNIT #: [id number] ROOM/BED: [place] [address] : [birth year] AGE: 61 SEX: F ATTEND: Nicolle Robertson MD ADM AUTHOR: Kavitha Dior * ALL edits or amendments must be made on the tradeNOW/computer document * History of Present Illness HPI [...] PO DAILY 05/10/2107/21 Strength: 50 MG TAB 1454 1351 GABAPENTIN (NEURONTIN) 600 MG PO BID 05/10/21 0 07/21/21 Strength: 600 MG TAB 1450 1351 FOLIC ACID 1 MG PO DAILY 05/10/21 07/21/21 Strength: 1 MG TAB 1450 1351 METOPROLOL SUCC XL 12.5 MG PO BID 05/10/2102/01 (TOPROL XL) 1450 1351 Strength: 25 MG TAB.SR.24H ISOSORBIDE DINITRATE 60 MG PO DAILY 05/10/21 0 07/21/21 (ISORDIL) 1452 1351 Strength: 40 MG TAB [...] Strength) CEFDINIR (OMNICEF) 300 MG PO Q12H 07/19/2107/11 Strength: 300 MG CAP 1610 1351 POTASSIUM CHLORIDE ER 10 MEQ PO DAILY 07/19/21 07/21/21 (KLOR-CON 10) 1611 1351 Strength: 10 MEQ TAB.SA FUROSEMIDE (LASIX) 40 MG PO DAILY 07/19/2102/01 Strength: 40 MG TAB 1611 1351 predniSONE 20 MG PO DAILY 07/19/21 07/21/21 Strength: 20 MG TAB 1612 1351 ALBUTEROL 2 PUFF INH 07/19/21 07/21/21 (VENTOLIN HFA 90 RTQ6H PRN PRN 1612 1351 MCG/ACT 18 GM) PNEUMONIA Strength: 90 MCG INHALER NITROGLYCERIN 0.4 MG SL 30 100 05/13/21 (NITROSTAT) Q5M PRN PRN ANGINA 1740 1351 Strength: 0.4 MG TAB.SL CLOPIDOGREL (PLAVIX) 75 MG PO DAILY 30 30 05/1307/21/21 Strength: 75 MG TAB 1745 1351 Current Hospital Medications: Autonomic Drugs Sig/Nandiin Start time Last Medication Dose Route Stop [...] MG DAILY 07/22 1026 AC (COZAAR) PO 08/21 1025 1049 Central Nervous System Agents Sig/Nandini [...] Hydrocodone Bitart/ 1 TAB ONCE ONE 07/21 1814 D C 07/21 Acetaminophen PO 07/21 (NORCO 5/325) Morphine Sulfate 2 MG ONCE ONE 07/21 181 DC (morphine SULFATE) IV 07/22 1815 181 Hydrocodone Bitart/ 0 .STK-MED ONE 07/21 181 D C Acetaminophen .ROUTE (NORCO 5/325) Morphine Sulfate 0 .STK-MED ONE 07/21 181 DC (morphine SULFATE) .ROUTE Electrolytic, Caloric, And Maico Sig/Nandini Start time Last Medication Dose Route Stop Time Status Admin Furosemide 40 MG DAILY 07/23 0900 AC (LASIX) PO 08/22 0859 Dextrose/Water 50 ML ASDIR PRN 07/21 2130 CKD (DEXTROSE 50% W IV 08/20 2129 SYRINGE) Dextrose/Water 25 ML ASDIR PRN 07/21 1645 CKD (DEXTROSE 50% W IV 08/20 1644 SYRINGE) Dextrose/Water 50 ML ASDIR PRN 07/21 1645 DC (DEXTROSE 50% W IV 08/20 1644 SYRINGE) Sodium Chloride 1,000 ML .[id number] ONE 07/21 153 0 DC 07/21 (SODIUM CHLORIDE IV 07/22 0449 1642 0.9%) Sodium Chloride 500 ML ASDIR PRN 07/21 1530 AC (SODIUM CHLORIDE IV 08/20 1529 0.9%) Gastrointestinal Drugs Sig/Nandini Start time Last Medication Dose Route Stop Time Status Admin Ondansetron HCl 4 MG Q4H PRN PRN 07/21 1815 AC 05/11 (ZOFRAN) IV 08/20 181 1818 Ondansetron HCl 0 .STK-MED ONE 07/21 1813 DC (ZOFRAN) .ROUTE Hormones And Synthetic [...] Insulin Human Lispro 0 .STK-MED ONE 07/21 193 DC (HUMALOG) SUBQ Insulin Human Lispro 10 [...] Sodium Chloride (SODIUM CHLORIDE 0.9%) 1,000 ML .R60B30C ONE IV (DC) Sodium Chloride (SODIUM CHLORIDE [...] L dorsalis pedis, R radial, L radial. Neuro/REIMBURSEMENT MANAGER: alert, oriented X 3, normal speech, n o motor deficits, no sensory deficits Wound/incision: Location: Left groin sx site. Psychiatry: normal affect, normal mood Results Findings/Data: Laboratory Tests 07/22/21 0440: [Embedded Image Not Available] 07/21/21 193: [Embedded Image Not Available] 07/21/211804: [Embedded Image [...] H 307 H 333 H 328 H 07/212 1805 1559 Chemistry Sodium (134 - 147 [...] - 137 SEC) 255 H Laboratory Tests 07/22 07/21 07/21 0440 1930 1805 Hematology WBC (4.5 - [...] 32.0 %) 14.2 10.4 L 12.3 L [place] % (Auto) (4.8 - 9.0 %) 7.7 2.2 L 2.4 L Eos % (Auto) (0.3 - 3.7 %) 0.0 L 0.0 L 0.1 L Baso % (Auto) (0.0 - 2.0 %) 0.2 0.1 0.2 Neut # (Auto) (2.0 - 7.6 x10 3/uL) 9.86 H 9.47 H 9.01 H Lymph # (Auto) (1.0 - 3.8 x10 3/uL) 1.83 1.14 1 .32 [place] # (Auto) (0.1 - 0.8 x10 3/uL) [...] data: Recent Impressions: ULTRASOUND - DUP LE ART UNI/LTD 07/22 1939 Report Impression - Status: SIGNED Entered: 07/21/20212020 IMPRESSION: 9 cm soft tissue hematoma in the left groin. Impression By: [email or web address] - Mukesh Call M.D. Diagnosis, Assessment Plan Diagnosis, Assessment Plan Consultants: cardiology, critical/pediatric critical care nurse, h ospitalist Plan discussed with: patient, collaborating [...] needed DVT prophylaxis GI prophylaxis not indicated: Benjylize patient has tolerated. Out of bed to [facility] I spent 35 minutes of critic al care reviewing labs, imaging and discussing plan of care with critical care pediatric critical care nurse. at 1543 RPT #:[id number] END OF REPORT 2021-07-22 10:28:00-00:00 [facility] ([facility]) History Physical - Adult REPORT#:[id number] REPORT STATUS: Signed DATE:07/22/21 TIME: 1028 PATIENT: TAMY MARTINEZ UNIT #: [id number] ROOM/BED: [place] [address] : 64 AGE: 61 SEX: F ATTEND: Nicolle Robertson MD ADM AUTHOR: Zoraida Felder TOURIST HOME KEEPER * ALL edits or amendments must be made on the tradeNOW/computer document * History of Present Illness HPI [...] 87 98 05/ 1145 67 19 98 05/12 1130 36.4 Room air 05/ 1130 68 99 05/12 1115 71 92 05/ 1100 69 137/82 103 86 05/12 1045 66 24 98 05/ 1030 65 16 98 05/12 1001 74 130/59 85 99 05/12 0956 64 15 98 05/12 0945 64 98 05/12 0930 66 100 05/12 0915 71 100 05/12 0900 76 147/67 96 98 05/12 0845 63 14 99 05/12 0830 63 16 99 05/12 0828 65 28 100 05/12 0815 63 15 98 05/12 0800 36.2 Room air 05/12 0800 65 17 156/65 94 95 05/12 0745 64 27 99 05/12 0730 63 100 05/12 0715 64 100 05/12 0700 62 18 132/60 87 98 05/12 0601 75 20 114/57 82 100 05/12 0500 57 13 110/53 76 97 05/12 0400 58 13 121/56 81 99 05/12 0357 36.4 05/12 0300 60 18 111/55 77 99 05/12 0200 59 16 121/58 83 97 05/12 0100 60 36 115/58 80 98 05/12 0010 36.5 05/12 0000 59 25 113/55 79 95 05/ 2300 62 23 112/53 77 92 05/ 2200 61 20 105/53 73 95 / 2130 36.6 05/ 2100 66 34 107/54 78 98 24 hour I O ending at 0700: 05 0700 07/21 1900 Intake Total 561.00 Output [...] motion, normal in spection, no CVA tenderness Neuro/REIMBURSEMENT MANAGER: alert, oriented X 3, normal gait Skin: [...] % (Auto) (14.0 - 32.0 %) 14.2 [place] % (Auto) (4.8 - 9.0 %) 7.7 Eos % (Auto) (0.3 - 3.7 %) 0.0 L Baso % (Auto) (0.0 - 2.0 %) 0.2 Neut # (Auto) (2.0 - 7.6 x10 3/uL) 9.86 H Lymph # (Auto) (1.0 - 3.8 x10 3/uL) 1.83 [place] # (Auto) (0.1 - 0.8 x10 3/uL) [...] - 32.0 %) 10.4 L 12.3 L [place] % (Auto) (4.8 - 9.0 %) 2.2 L 2.4 L Eos % (Auto) (0.3 - 3.7 %) 0.0 L 0.1 L Baso % (Auto) (0.0 - 2.0 %) 0.1 0.2 Neut # (Auto) (2.0 - 7.6 x10 3/uL) 9.47 H 9.01 H Lymph # (Auto) (1.0 - 3.8 x10 3/uL) 1.14 1.32 [place] # (Auto) (0.1 - 0.8 x10 3/uL) [...] data: Recent Impressions: ULTRASOUND - DUP LE [employer] UNI/LTD 07/22 1937 Report Impression - Status: [...] Signed by Inga Robertson MD on at 0554 [facility] #:[id number] END OF REPORT 2021-07-21 15:52:00-00:00 [id number] [place] [address] PATIENT NAME: TAMY MARTINEZ ADMIT DATE: ACCOUNT NO: [id number] ROOM NO: [id number] AGE: 61 REPORT TYPE: OPERATIVE REPORT SEX: [...] back today to complete the PCI. SURGEON: MEMBERSHIP MANAGER: ANESTHESIA: ACCESS: Left femoral artery, 6-Estonian closed wit h Perclose. TOTAL SEDATION TIME: [...] guidance of fluoroscopy and m icropuncture, placed 6-Estonian [place] sheath and took 6-Estonian JR4 guide into the aort ic root [...] PATIENT NAME: TAMY MARTINEZ ACCOUNT #: [id number] stent and postdilated to high pressure using [...] Dany Mcdonald MD WT: OP:ARELY/CHRISTINA/JULIO C Conf#: [id number]#: [id number] Authenticated by Dany Mcdonald MD On 08/02/2021 11:35:28 AM Electronically Signed by Dany Mcdonald MD on at 1135 PATIENT NAME: TAMY MARTINEZ ACCOUNT #: [id number] 2021-07-19 15:12:00-00:00 [id number] [place] [address] PATIENT NAME: TAMY MARTINEZ ADMIT DATE: ACCOUNT NO: [id number] ROOM NO: AGE: 61 REPORT TYPE: eELECTROCARDIOGRAM REPORT SEX: F ADMITTING PHYSICIAN: ATTENDING PHYSICIAN:Dany Mcdonald MD Order: [id number] Test Reason : PREOP Test Date/Time Stamp: [...] PATIENT NAME: TAMY MARTINEZ ACCOUNT #: [id number] 2021-06-30 10:37:00-00:00 [facility] Hospitalist Discharge Summary REPORT#:[id number] REPORT STATUS: Signed DATE:06/30/21 TIME: 1037 PATIENT: TAMY MARTINEZ UNIT #: [id number] ROOM/BED: [place] [address] : 64 AGE: 61 SEX: F ATTEND: Conrado Zeng MD ADM AUTHOR: Agnes Almeida MD * ALL edits or amendments must be made on the tradeNOW/Suso document * General Information Date of admission: [...] -- due to acute blood loss angina/CAD [facility] -- PCI cardiology consult continue home [...] in 2 weeks Consultants: cardiology, cardiovascular surgery, critical/pediatric critical care nurse, hospitalist Free Text DxA P Notes Free [...] all, no calf tenderness, no e agata Neuro/REIMBURSEMENT MANAGER: alert, oriented X 3, CNII-XII intact, normal [...] % (Auto) (14.0 - 32.0 %) 17.5 [place] % (Auto) (4.8 - 9.0 %) 14.7 H Eos % (Auto) (0.3 - 3.7 %) 3.3 Baso % (Auto) (0.0 - 2.0 %) 0.3 Neut # (Auto) (2.0 - 7.6 x10 3/uL) 4.62 Lymph # (Auto) (1.0 - 3.8 x10 3/uL) 1.28 [place] # (Auto) (0.1 - 0.8 x10 3/uL) [...] Discharge Instructions PCP Discharge to: Home Health [facility] Care Additional Discharge Routines: Attending Follow- Up, [employer] Associate Follow-Up Diet: Cardiac Activity: As Tolerated Follow-up [...] DC .ROUTE Ondansetron HCl 0 .STK-MED ONE 06/25 1731 DC .ROUTE Sevoflurane 0 .STK-MED ONE 06/25 1731 DC INH Epinephrine 0 .STK-MED ONE 06/24 [...] PO 07/23 Gabapentin 600 MG BID 06/23 2099 AC 06/24 PO 07/23 2058 0916 Insulin Glargine 25 UNIT BEDTIME 06/23 2100 AC 06/23 SUBQ 07/23 2058 2030 Metoprolol Succinate 12.5 MG BID 06/23 2099 AC 06/24 PO 07/23 2058 0917 Mupirocin 1 APPLIC BID 06/23 2099 AC 06/24 NASAL 06/28 0901 0916 Insulin [...] 07/23 1429 2302 Sodium Chloride 1,000 ML .[id number] 06/23 1430 DC 06/23 IV 06/24 0349 [...] Almeida MD on 2 at 1041 RPT #:[id number] END OF REPORT 2021-06-30 08:51:00-00:00 [facility] Cardiology Progress Note REPORT#:[id number] REPORT STATUS: Signed DATE:06/30/21 TIME: 850 PATIENT: TAMY MARTINEZ UNIT #: [id number] ROOM/BED: [place] [address] : 64 AGE: 61 SEX: F ATTEND: Conrado Zeng MD ADM AUTHOR: Zoraida Felder TOURIST HOME KEEPER * ALL edits or amendments must be made on the tradeNOW/Suso document * Subjective Patient reports: No: complaints. [...] O2 Flow FiO2 Mean Ox Delivery Rate 06/30 0733 [...] LE assessment: no edema Musculoskeletal: normal inspection Neuro/REIMBURSEMENT MANAGER: alert, oriented X 3, normal speech Skin: dry, intact, normal color, normal temperat ure Wound/incision: Location: Rgroin bruise, tender Psychiatry: normal affect, normal judgment/insig ht, normal mood, no hallucinations Results Findings/Data: Laboratory Tests 06/30 06/30 06/29 06/29 06/29 0716 314 1954 1601 1141 Chemistry Sodium (134 - 147 [...] (8.0 - 10.5 mg/dL) 8.4 Laboratory Tests 06/305 Hematology WBC (4.5 - 11.0 x10 3/uL) [...] % (Auto) (14.0 - 32.0 %) 17.5 [place] % (Auto) (4.8 - 9.0 %) 14.7 H Eos % (Auto) (0.3 - 3.7 %) 3.3 Baso % (Auto) (0.0 - 2.0 %) 0.3 Neut # (Auto) (2.0 - 7.6 x10 3/uL) 4.62 Lymph # (Auto) (1.0 - 3.8 x10 3/uL) 1.28 [place] # (Auto) (0.1 - 0.8 x10 3/uL) [...] low-up with Dr. Mcdonald at 1102 RPT #:[id number] END OF REPORT 2021-06-30 08:51:00-00:00 [facility] ([facility]) Cardiology Progress Note REPORT#:[id number] REPORT STATUS: Signed DATE:06/30/21 TIME: 850 PATIENT: TAMY MARTINEZ UNIT #: [id number] ROOM/BED: [place] [address] : 64 AGE: 61 SEX: F ATTEND: Conrado Zeng MD ADM AUTHOR: Zoraida Felder CNP * ALL edits or amendments must be made on the tradeNOW/computer document * Subjective Patient reports: No: complaints. [...] LE assessment: no edema Musculoskeletal: normal inspection Neuro/REIMBURSEMENT MANAGER: alert, oriented X 3, normal speech Skin: [...] % (Auto) (14.0 - 32.0 %) 17.5 [place] % (Auto) (4.8 - 9.0 %) 14.7 H Eos % (Auto) (0.3 - 3.7 %) 3.3 Baso % (Auto) (0.0 - 2.0 %) 0.3 Neut # (Auto) (2.0 - 7.6 x10 3/uL) 4.62 Lymph # (Auto) (1.0 - 3.8 x10 3/uL) 1.28 [place] # (Auto) (0.1 - 0.8 x10 3/uL) [...] Inga Robertson MD on at 2150 RPT #:[id number] END OF REPORT 2021-06-29 13:22:00-00:00 [facility] ([facility]) Hospitalist Progress Note REPORT#:[id number] REPORT STATUS: Signed DATE:06/29/21 TIME: 1322 PATIENT: TAMY MARTINEZ UNIT #: [id number] ROOM/BED: [place] [address] : 64 AGE: 61 SEX: F ATTEND: Conrado Zeng MD ADM AUTHOR: Agnes Almeida MD * ALL edits or amendments must be made on the tradeNOW/computer document * Subjective Chief complaint: she is [...] low FiO2 Mean Ox Delivery Rate 06/29 1142 [...] all, no calf tenderness, no e agata Neuro/REIMBURSEMENT MANAGER: alert, oriented X 3, CNII-XII intact, normal [...] % (Auto) (14.0 - 32.0 %) 16.1 [place] % (Auto) (4.8 - 9.0 %) 13.3 H Eos % (Auto) (0.3 - 3.7 %) 3.6 Baso % (Auto) (0.0 - 2.0 %) 0.3 Neut # (Auto) (2.0 - 7.6 x10 3/uL) 5.72 Lymph # (Auto) (1.0 - 3.8 x10 3/uL) 1.40 [place] # (Auto) (0.1 - 0.8 x10 3/uL) [...] Diagnosis, Assessment Plan Consultants: cardiology, cardiovascular surgery, critical/pediatric critical care nurse, hospitalist Free Text DxA P Notes Free [...] Admin Dexamethasone Sodium 0 .STK-MED ONE 06/24 9962 DC Phosphate .ROUTE Lidocaine HCl 0 .STK-MED [...] 07/23 1429 2302 Sodium Chloride 1,000 ML .[id number] 06/23 1430 DC 06/23 IV 06/24 0349 [...] Almeida MD on 2 at 1324 RPT #:[id number] END OF REPORT 2021-06-29 08:40:00-00:00 [facility] Cardiology Progress Note REPORT#:[id number] REPORT STATUS: Signed DATE:06/29/21 TIME: 0840 PATIENT: TAMY MARTINEZ UNIT #: [id number] ROOM/BED: [address] : 64 AGE: 61 SEX: F ATTEND: Conrado Zeng MD ADM AUTHOR: Zoraida Felder CNP * ALL edits or amendments must be made on the tradeNOW/Suso document * Subjective Patient reports: No: complaints. [...] LE assessment: no edema Musculoskeletal: normal inspection Neuro/REIMBURSEMENT MANAGER: alert, oriented X 3, normal speech Skin: [...] % (Auto) (14.0 - 32.0 %) 16.1 [place] % (Auto) (4.8 - 9.0 %) 13.3 H Eos % (Auto) (0.3 - 3.7 %) 3.6 Baso % (Auto) (0.0 - 2.0 %) 0.3 Neut # (Auto) (2.0 - 7.6 x10 3/uL) 5.72 Lymph # (Auto) (1.0 - 3.8 x10 3/uL) 1.40 [place] # (Auto) (0.1 - 0.8 x10 3/uL) [...] discharge disposition to primary at 1117 RPT #:[id number] END OF REPORT 2021-06-29 08:40:00-00:00 [facility] Cardiology Progress Note REPORT#:[id number] REPORT STATUS: Signed DATE:06/29/21 TIME: 0840 PATIENT: TAMY MARTINEZ UNIT #: [id number] ROOM/BED: 3349-1 : 64 AGE: 61 SEX: F ATTEND: Conrado Zeng MD ADM AUTHOR: Zoraida Felder CNP * ALL edits or amendments must be made on the el [place] [employer]/computer document * Subjective Patient reports: No: complaints. [...] 18 111/53 0.0 99 Room air 06/28 2015 36.9 71 20 144/61 0.0 99 Room air 06/28 2001 70 20 125/57 82 0418 1930 69 28 04/ 1900 73 19 04/18 1550 68 04/18 1500 68 16 96 06/28 1400 72 18 100 04 1300 75 22 100 06/28 1210 36.8 69 19 124/58 80 98 Room air 06/28 1200 69 19 98 06/28 1102 73 20 124/58 83 04/18 1000 72 19 04 0850 72 35 145/63 90 99 PATIENT [...] LE assessment: no edema Musculoskeletal: normal inspection Neuro/REIMBURSEMENT MANAGER: alert, oriented X 3, normal speech Skin: [...] % (Auto) (14.0 - 32.0 %) 16.1 [place] % (Auto) (4.8 - 9.0 %) 13.3 H Eos % (Auto) (0.3 - 3.7 %) 3.6 Baso % (Auto) (0.0 - 2.0 %) 0.3 Neut # (Auto) (2.0 - 7.6 x10 3/uL) 5.72 Lymph # (Auto) (1.0 - 3.8 x10 3/uL) 1.40 [place] # (Auto) (0.1 - 0.8 x10 3/uL) [...] Inga Robertson MD on at 0803 RPT #:[id number] END OF REPORT 2021-06-28 13:46:00-00:00 [facility] Cardiology Progress Note REPORT#:[id number] REPORT STATUS: Signed DATE:06/28/21 TIME: 1346 PATIENT: TAMY MARTINEZ UNIT #: [id number] ROOM/BED: [place] [address] : 64 AGE: 61 SEX: F ATTEND: Conrado Zeng MD ADM AUTHOR: Zoraida Felder ACNP * ALL edits or amendments must be made on the el [place] [employer]/computer document * Subjective Patient reports: No: complaints. [...] 04 0841 71 25 99/48 69 100 06/28 0830 72 16 98 06/28 0800 36.7 64 16 145/63 90 197 Room air 06/28 0800 64 16 97 06/28 0730 70 16 95 06/28 0700 65 16 98 06/28 0640 72 19 118/55 79 97 04 0639 71 17 118/54 78 98 06/28 0638 74 18 104/52 75 99 06/28 0500 69 19 100 04 0430 69 17 96 04 0400 72 16 98 04 0330 70 18 98 04 0300 73 31 100 06/28 0230 69 17 100 04 0200 71 16 97 18 0130 68 17 98 0418 0100 70 17 99 04/ 0030 69 20 98 06/27 2331 68 [...] 112/50 72 04 1930 71 17 97 06/27 1900 71 25 98 06/27 1600 37.4 76 18 119/56 77 99 Room air 06/27 1600 76 18 119/56 81 99 06/27 1500 72 15 98/48 69 99 04 1457 72 14 101/49 71 100 06/27 [...] LE assessment: no edema Musculoskeletal: normal inspection Neuro/REIMBURSEMENT MANAGER: alert, oriented X 3, normal speech Skin: dry, intact, normal color, normal temperat ure Wound/incision: Location: Rgroin bruise, tender Psychiatry: normal affect, normal judgment/insig ht, normal mood, no hallucinations Results Findings/Data: Laboratory Tests 06/28 1455 Blood Gas Puncture Site L Radial O2 [...] 06/28 06/28 06/27 06/27 1118 0726 0455 9364 1558 Chemistry Sodium (134 - 147 mEq/L) [...] (Auto) (14.0 - 32.0 %) 10.6 L [place] % (Auto) (4.8 - 9.0 %) 8.6 Eos % (Auto) (0.3 - 3.7 %) 2.7 Baso % (Auto) (0.0 - 2.0 %) 0.3 Neut # (Auto) (2.0 - 7.6 x10 3/uL) 6.99 Lymph # (Auto) (1.0 - 3.8 x10 3/uL) 0.96 L [place] # (Auto) (0.1 - 0.8 x10 3/uL) [...] IV diuresis PT/OT mobilize OOB Transfer to [facility] at 1531 RPT #:[id number] END OF REPORT 2021-06-28 13:46:00-00:00 [facility] Cardiology Progress Note REPORT#:[id number] REPORT STATUS: Signed DATE:06/28/21 TIME: 1346 PATIENT: TAMY MARTINEZ UNIT #: [id number] ROOM/BED: [place] [address] : 64 AGE: 61 SEX: F ATTEND: Conrado Zeng MD ADM AUTHOR: Zoraida Felder TOURIST HOME KEEPER * ALL edits or amendments must be made on the tradeNOW/computer document * Subjective Patient reports: No: complaints. [...] 75 99 06/28 0500 69 19 100 06/28 0430 69 17 96 06/28 0400 72 16 98 06/28 0330 70 18 98 06/28 0300 73 31 100 06/28 0230 69 17 100 06/28 0200 71 16 97 06/28 0130 68 17 98 06/28 0100 70 17 99 06/28 0030 69 20 98 06/27 2331 68 [...] LE assessment: no edema Musculoskeletal: normal inspection Neuro/REIMBURSEMENT MANAGER: alert, oriented X 3, normal speech Skin: [...] (Auto) (14.0 - 32.0 %) 10.6 L [place] % (Auto) (4.8 - 9.0 %) 8.6 Eos % (Auto) (0.3 - 3.7 %) 2.7 Baso % (Auto) (0.0 - 2.0 %) 0.3 Neut # (Auto) (2.0 - 7.6 x10 3/uL) 6.99 Lymph # (Auto) (1.0 - 3.8 x10 3/uL) 0.96 L [place] # (Auto) (0.1 - 0.8 x10 3/uL) [...] 0.1 x10 3/uL) 0. 00 Laboratory Tests 06/28 0455 Chemistry Magnesium (1.80 [...] IV diuresis PT/OT mobilize OOB Transfer to [facility] at 1531 Electronically Signed by Inga Robertson MD on at 0861 RPT #:[id number] END OF REPORT 2021-06-28 12:40:00-00:00 [facility] ([facility]) Hospitalist Progress Note REPORT#:[id number] REPORT STATUS: Signed DATE:06/28/21 TIME: 1240 PATIENT: TAMY MARTINEZ UNIT #: [id number] ROOM/BED: 3308-1 : 64 AGE: 61 SEX: F ATTEND: Kathi Zeng MD ADM AUTHOR: Agnes Almeida MD * ALL edits or amendments must be made on the tradeNOW/computer document * Subjective Chief complaint: she feel [...] 04/18 0850 72 35 145/63 90 99 / 0841 71 25 99/48 69 100 04/18 0830 72 16 98 04/18 0800 36.7 64 16 145/63 90 197 Room air / 0800 64 16 97 /18 0730 70 16 95 04/18 0700 65 16 98 /18 0640 72 19 118/55 79 97 04/18 0639 71 17 118/54 78 98 /18 0638 74 18 104/52 75 99 /18 0500 69 19 100 04/18 0430 69 17 96 04/18 0400 72 16 98 04/18 0330 70 18 98 /18 0300 73 31 100 04/18 0230 69 17 100 04/18 0200 71 16 97 04/18 0130 68 17 98 04/18 0100 70 17 99 04/18 0030 69 20 98 06/27 2331 68 [...] Furosemide (LASIX 20MG INJ) 20 MG BLOOD-DOSE BE TWEEN IV (CKD) Insulin Human Lispro (HUMALOG) 0 [...] all, no calf tenderness, no e agata Neuro/REIMBURSEMENT MANAGER: alert, oriented X 3, CNII-XII intact, normal [...] (Auto) (14.0 - 32.0 %) 10.6 L [place] % (Auto) (4.8 - 9.0 %) 8.6 Eos % (Auto) (0.3 - 3.7 %) 2.7 Baso % (Auto) (0.0 - 2.0 %) 0.3 Neut # (Auto) (2.0 - 7.6 x10 3/uL) 6.99 Lymph # (Auto) (1.0 - 3.8 x10 3/uL) 0.96 L [place] # (Auto) (0.1 - 0.8 x10 3/uL) [...] Diagnosis, Assessment Plan Consultants: cardiology, cardiovascular surgery, critical/pediatric critical care nurse, hospitalist Free Text DxA P Notes Free [...] 07/23 1429 2302 Sodium Chloride 1,000 ML .[id number] 06/23 1430 DC 06/23 IV 06/24 0349 [...] Agnes Almeida MD on 2 at 1243 [facility] #:[id number] END OF REPORT 2021-06-28 09:35:00-00:00 [facility] Cardiothoracic Surgery Prog REPORT#:[id number] REPORT STATUS: Signed DATE:06/28/21 TIME: 934 PATIENT: TAMY MARTINEZ UNIT #: [id number] ROOM/BED: 3308-1 : 64 AGE: 61 SEX: F ATTEND: Conrado Zeng MD ADM AUTHOR: Loly Agee * ALL edits or amendments must be made on the tradeNOW/Suso document * General Post-op: day 4 Status [...] Genitourinary: hilliard Extremities: pedal pulses, moves all Neuro/REIMBURSEMENT MANAGER: alert, oriented X 3, normal speech, n [...] (Auto) (14.0 - 32.0 %) 10.6 L [place] % (Auto) (4.8 - 9.0 %) 8.6 Eos % (Auto) (0.3 - 3.7 %) 2.7 Baso % (Auto) (0.0 - 2.0 %) 0.3 Neut # (Auto) (2.0 - 7.6 x10 3/uL) 6.99 Lymph # (Auto) (1.0 - 3.8 x10 3/uL) 0.96 L [place] # (Auto) (0.1 - 0.8 x10 3/uL) [...] today. The patient was taken to the incinerator plant laborer, and after removal of Impella, attempts were [...] FOBT negative Continue to monitor Transfer to [facility] Discussed with Dr Whitt Consultants: cardiology, cardiovascular surgery, critical/pediatric critical care nurse, hospitalist at 1219 at 3083 RPT #:[id number] END OF REPORT 2021-06-27 15:19:00-00:00 [facility] Hospitalist Progress Note REPORT#:[id number] REPORT STATUS: Signed DATE:06/27/21 TIME: 1519 PATIENT: TAMY MARTINEZ UNIT #: [id number] ROOM/BED: [place] [address] : 64 AGE: 61 SEX: F ATTEND: Conrado Zeng MD ADM AUTHOR: Brea Mitchell DISPOSAL MAN * ALL edits or amendments must be made on the tradeNOW/computer document * Subjective Chief complaint: she complaint [...] all, no calf tenderness, no e agata Neuro/REIMBURSEMENT MANAGER: alert, oriented X 3, CNII-XII intact, normal [...] 06/27 06/27 06/27 06/26 1456 1108 0710 052005 Chemistry Sodium (134 - 147 mEq/L) 139 [...] (3.4 - 5.0 g/dL) 2.70 L 06/26 1748 Chemistry POC Glucose (70 - 110 MG/DL) [...] (Auto) (14.0 - 32.0 %) 13.7 L [place] % (Auto) (4.8 - 9.0 %) 9.1 H Eos % (Auto) (0.3 - 3.7 %) 3.2 Baso % (Auto) (0.0 - 2.0 %) 0.3 Neut # (Auto) (2.0 - 7.6 x10 3/uL) 6.33 Lymph # (Auto) (1.0 - 3.8 x10 3/uL) 1.19 [place] # (Auto) (0.1 - 0.8 x10 3/uL) [...] 06/26 190 Occult Blood - COMP STOOL Diagnosis, Assessment Plan Consultants: cardiology, cardiovascular surgery, critical/pediatric critical care nurse, hospitalist Free Text DxA P Notes Free [...] Chloride 1,000 ML .Q10H 06/23 1730 AC 0 06/24 IV 07/23 1729 1436 Atropine Sulfate 0.5 MG ASDIR PRN 06/23 1430 DC IV 06/24 1423 Heparin Sodium 12,500 UNIT DAILY PRN PRN 06/23 1430 AC Dextrose/Water 500 ML I-CATHETER 07/23 1429 Heparin Sodium/ 500 ML DAILY PRN PRN 06/23 1430 AC 06/23 Dextrose I-CATHETER 07/23 1429 2302 Sodium Chloride 1,000 ML .[id number] 06/23 1430 D C 06/23 IV 06/24 0349 1755 Sodium Chloride [...] Brea Mitchell NP on at 1522 RPT #:[id number] END OF REPORT 2021-06-27 11:25:00-00:00 [facility] Cardiothoracic Surgery Prog REPORT#:[id number] REPORT STATUS: Signed DATE:06/27/21 TIME: 1124 PATIENT: TAMY MARTINEZ UNIT #: [id number] ROOM/BED: 3308-1 : 64 AGE: 61 SEX: F ATTEND: Conrado Zeng MD ADM AUTHOR: Loly Agee * ALL edits or amendments must be made on the tradeNOW/computer document * General Post-op: day 3 Status [...] Genitourinary: hilliard Extremities: pedal pulses, moves all Neuro/REIMBURSEMENT MANAGER: alert, oriented X 3, normal speech, n [...] 06/27 06/27 06/27 06/26 06/26 1108 0710 0520 2005 1749 Chemistry Sodium (134 - 147 mEq/L) [...] (Auto) (14.0 - 32.0 %) 13.7 L [place] % (Auto) (4.8 - 9.0 %) 9.1 H Eos % (Auto) (0.3 - 3.7 %) 3.2 Baso % (Auto) (0.0 - 2.0 %) 0.3 Neut # (Auto) (2.0 - 7.6 x10 3/uL) 6.33 Lymph # (Auto) (1.0 - 3.8 x10 3/uL) 1.19 [place] # (Auto) (0.1 - 0.8 x10 3/uL) [...] today. The patient was taken to the incinerator plant laborer, and after removal of Impella, attempts were [...] with Dr Whitt Consultants: cardiology, cardiovascular surgery, critical/pediatric critical care nurse, hospitalist at 1310 at 1219 RPT #:[id number] END OF REPORT 2021-06-27 09:52:00-00:00 [facility] ([facility]) Cardiology Progress Note REPORT#:[id number] REPORT STATUS: Signed DATE:06/27/21 TIME: 951 PATIENT: TAMY MARTINEZ UNIT #: [id number] ROOM/BED: [place] [address] : 64 AGE: 61 SEX: F ATTEND: Conrado Zeng MD ADM AUTHOR: Zoraida Felder TOURIST HOME KEEPER * ALL edits or amendments must be made on the tradeNOW/computer document * Subjective Patient reports: No: complaints. [...] 06/26 1800 86 20 118/54 78 98 04/16 1701 83 17 120/56 81 96 06/26 1600 36.8 88 18 128/58 83 97 06/26 1500 83 18 107/52 75 97 /16 1400 78 16 119/56 80 99 16 1300 78 21 120/56 80 94 16 1200 37.2 79 16 118/54 78 96 0 06/26 1101 82 18 134/53 77 /16 1000 77 13 116/55 79 92 PATIENT WEIGHT: Weight (lb): 212 Weight (oz): 1.36 Weight (kg): 96.200 Medications: Active Meds + DC'd Last 24 Hrs Lidocaine (LIDODERM) 1 PATCH DAILY TOPICAL Furosemide (LASIX 20MG INJ) 20 MG BLOOD-DOSE BET WEEN IV (CKD) Insulin Human Lispro (HUMALOG) 0 AC HS SUBQ Dextrose/Water (DEXTROSE 50% W SYRINGE) 25 ML A SDIR PRN IV (CKD) Dextrose/Water (DEXTROSE 50% W [...] on oxygen, no distress Abdomen: non-tender Genitourinary: hillaird, urine Lower extremity: LE assessment: edema (face and hands), no edema Musculoskeletal: normal inspection Neuro/REIMBURSEMENT MANAGER: alert, oriented X 3, normal speech Skin: [...] (Auto) (14.0 - 32.0 %) 13.7 L [place] % (Auto) (4.8 - 9.0 %) 9.1 H Eos % (Auto) (0.3 - 3.7 %) 3.2 Baso % (Auto) (0.0 - 2.0 %) 0.3 Neut # (Auto) (2.0 - 7.6 x10 3/uL) 6.33 Lymph # (Auto) (1.0 - 3.8 x10 3/uL) 1.19 [place] # (Auto) (0.1 - 0.8 x10 3/uL) [...] Date/Time Procedure - Status Source Growth 06/26 1903 Occult Blood - COMP STOOL Laboratory Tests [...] CV1 DC hilliard catheter at 1040 RPT #:[id number] END OF REPORT 2021-06-27 09:52:00-00:00 [facility] Cardiology Progress Note REPORT#:[id number] REPORT STATUS: Signed DATE:06/27/21 TIME: 951 PATIENT: TAMY MARTINEZ UNIT #: [id number] ROOM/BED: [facility] [place] : 64 AGE: 61 SEX: F ATTEND: Kathi Zeng MD ADM AUTHOR: Zoraida Felder CNP * ALL edits or amendments must be made on the tradeNOW/Suso document * Subjective Patient reports: No: complaints. [...] low FiO2 Mean Ox Delivery Rate 06/27 729 37.2 85 22 134/63 86 100 Room [...] 06/26 1400 78 16 119/56 80 99 16 1300 78 21 120/56 80 94 06/26 1200 37.2 79 16 118/54 78 96 0 06/26 1101 82 18 134/53 77 / 1000 77 13 116/55 79 92 PATIENT [...] and hands), no edema Musculoskeletal: normal inspection Neuro/REIMBURSEMENT MANAGER: alert, oriented X 3, normal speech Skin: [...] (Auto) (14.0 - 32.0 %) 13.7 L [place] % (Auto) (4.8 - 9.0 %) 9.1 H Eos % (Auto) (0.3 - 3.7 %) 3.2 Baso % (Auto) (0.0 - 2.0 %) 0.3 Neut # (Auto) (2.0 - 7.6 x10 3/uL) 6.33 Lymph # (Auto) (1.0 - 3.8 x10 3/uL) 1.19 [place] # (Auto) (0.1 - 0.8 x10 3/uL) [...] Date/Time Procedure - Status Source Growth 06/26 1903 Occult Blood - COMP STOOL Laboratory Tests [...] Inga Robertson MD on at 0802 RPT #:[id number] END OF REPORT 2021-06-26 15:01:00-00:00 [facility] Hospitalist Progress Note REPORT#:[id number] REPORT STATUS: Signed DATE:06/26/21 TIME: 1501 PATIENT: TAMY MARTINEZ UNIT #: [id number] ROOM/BED: [place] [address] : 64 AGE: 61 SEX: F ATTEND: Conrado Zeng MD ADM AUTHOR: Brea Mitchell DISPOSAL MAN * ALL edits or amendments must be made on the tradeNOW/Suso document * Subjective Chief complaint: she complaint [...] 06/26 0610 37.6 85 18 130/61 92 / 0600 85 19 130/61 88 91 06/26 [...] all, no calf tenderness, no e agata Neuro/REIMBURSEMENT MANAGER: alert, oriented X 3, CNII-XII intact, normal speech, no motor deficits, no sensory deficits Skin: dry, intact, ecchymosis Right groin Results Findings/Data: Laboratory Tests 06/26 06/26 06/26 06/26 06/25 1209 0807 0444 0444 2005 Chemistry Sodium (134 - 147 mEq/L) [...] (Auto) (14.0 - 32.0 %) 10.3 L [place] % (Auto) (4.8 - 9.0 %) 11.3 H Eos % (Auto) (0.3 - 3.7 %) 1.6 Baso % (Auto) (0.0 - 2.0 %) 0.1 Neut # (Auto) (2.0 - 7.6 x10 3/uL) 6.99 Lymph # (Auto) (1.0 - 3.8 x10 3/uL) 0.95 L [place] # (Auto) (0.1 - 0.8 x10 3/uL) [...] Diagnosis, Assessment Plan Consultants: cardiology, cardiovascular surgery, critical/pediatric critical care nurse, hospitalist Free Text DxA P Notes Free [...] DC .ROUTE Ondansetron HCl 0 .STK-MED ONE 06/25 1731 DC .ROUTE Sevoflurane 0 .STK-MED ONE 06/25 1731 DC INH Epinephrine 0 .STK-MED ONE 06/24 [...] BEDTIME 06/23 2100 AC 06/23 PO 07/23 Gabapentin 600 MG BID [...] Chloride 1,000 ML .Q10H 06/23 1730 AC 0 06/24 IV 07/23 1729 1436 Atropine Sulfate 0.5 MG ASDIR PRN 06/23 1430 DC IV 06/24 1423 Heparin Sodium 12,500 UNIT DAILY PRN PRN 06/23 1430 AC Dextrose/Water 500 ML I-CATHETER 07/23 1429 Heparin Sodium/ 500 ML DAILY PRN PRN 06/23 143 0 AC 06/23 Dextrose I-CATHETER 07/23 1429 2302 Sodium Chloride 1,000 ML .[id number] 06/23 1430 DC 06/23 IV 06/24 0349 [...] PO DAILY Electronically Signed by Brea Mitchell DISPOSAL MAN on at 1504 RPT #:[id number] END OF REPORT 2021-06-26 09:32:00-00:00 [facility] REPORT#:[id number] REPORT STATUS: Signed DATE:06/26/21 TIME: 931 PATIENT: TAMY MARTINEZ UNIT #: [id number] ROOM/BED: [place] [id number] : [birth year] AGE: 61 SEX: F ATTEND: Conrado Zeng MD ADM AUTHOR: Loly Agee * ALL edits or amendments must be made on the tradeNOW/computer document * General Post-op: day 2 Status [...] 06/26 0633 O2 Delivery Nasal cannula 06/25 0749 O2 [...] Genitourinary: hilliard Extremities: pedal pulses, moves all Neuro/REIMBURSEMENT MANAGER: alert, oriented X 3, normal speech, n [...] Tests 06/26 06/26 06/26 06/25 06/25 0807 4 443 2005 1634 Chemistry Sodium (134 - 147 [...] (Auto) (14.0 - 32.0 %) 10.3 L [place] % (Auto) (4.8 - 9.0 %) 11.3 H Eos % (Auto) (0.3 - 3.7 %) 1.6 Baso % (Auto) (0.0 - 2.0 %) 0.1 Neut # (Auto) (2.0 - 7.6 x10 3/uL) 6.99 Lymph # (Auto) (1.0 - 3.8 x10 3/uL) 0.95 L [place] # (Auto) (0.1 - 0.8 x10 3/uL) [...] (0.0 - 0.1 x10 3/uL) 0. 00 Radiology data: Recent Impressions: RADIOLOGY - XR CHEST 1 V 06/26 0611 Report Impression - Status: SIGNED Entered: 06/26/2021 0751 IMPRESSION: No obvious infiltrates or consolidations. Impression By: [email or web address] Virgil Weiner M.D. Diagnosis, Assessment Plan Hospital course to date: Ms. Martinez is a 61-year-old female who had an Im pella placed for cardiogenic shock. She has recovered completely and she was ready for the Impella to be removed today. The patient was taken to the incinerator plant laborer, and after removal of Impella, attempts were [...] with Dr Whitt Consultants: cardiology, cardiovascular surgery, critical/pediatric critical care nurse, hospitalist at 1047 at 1223 RPT #:[id number] END OF REPORT 2021-06-26 09:25:00-00:00 [facility] ([facility] Cardiology Progress Note REPORT#:[id number] REPORT STATUS: Signed DATE:06/26/21 TIME: 924 PATIENT: TAMY MARTINEZ UNIT #: [id number] ROOM[address]BED: [address] : [birth year] AGE: 61 SEX: F ATTEND: Conrado Zeng MD ADM AUTHOR: Zoraida Felder ACNP * ALL edits or amendments must be made on the el ectronic/Suso document * Subjective Patient reports: No: complaints. [...] 06/26 0200 82 16 95/53 70 98 16 0100 86 16 97/48 69 99 16 0005 37.2 06/26 0000 85 16 92/46 66 90 / 2300 87 16 98/49 70 93 /15 2200 83 16 98/47 68 92 04/15 2100 84 16 101/49 71 93 /15 2030 36.9 04/ 2000 85 17 101/48 69 93 04/15 [...] and hands), no edema Musculoskeletal: normal inspection Neuro/REIMBURSEMENT MANAGER: alert, oriented X 3, normal speech Skin: [...] (Auto) (14.0 - 32.0 %) 10.3 L [place] % (Auto) (4.8 - 9.0 %) 11.3 H Eos % (Auto) (0.3 - 3.7 %) 1.6 Baso % (Auto) (0.0 - 2.0 %) 0.1 Neut # (Auto) (2.0 - 7.6 x10 3/uL) 6.99 Lymph # (Auto) (1.0 - 3.8 x10 3/uL) 0.95 L [place] # (Auto) (0.1 - 0.8 x10 3/uL) [...] Report Impression - Status: SIGNED Entered: 06/26/2021 075 IMPRESSION: No obvious infiltrates or consolidations. Impression By: [email or web address] Virgil Weiner M.D. Diagnosis, Assessment Plan Plan discussed [...] diuresis PT/OT, mobilize OOB at 1330 RPT #:[id number] END OF REPORT 2021-06-26 09:25:00-00:00 [facility] Cardiology Progress Note REPORT#:[id number] REPORT STATUS: Signed DATE:06/26/21 TIME: 924 PATIENT: TAMY MARTINEZ UNIT #: [id number] ROOM/BED: [place] [address] : 64 AGE: 61 SEX: F ATTEND: Conrado Zeng MD ADM AUTHOR: Zoraida Felder CNP * ALL edits or amendments must be made on the tradeNOW/computer document * Subjective Patient reports: No: complaints. [...] 06/26 0610 37.6 85 18 130/61 92 /16 0600 85 19 130/61 88 91 /16 0501 92 29 133/58 83 82 / 0405 37.7 06/26 0400 83 16 103/51 73 98 /16 0300 83 16 95/50 70 98 04/16 0200 82 16 95/53 70 98 /16 0100 86 16 97/48 69 99 /16 0005 37.2 /16 0000 85 16 92/46 66 90 04/15 [...] and hands), no edema Musculoskeletal: normal inspection Neuro/REIMBURSEMENT MANAGER: alert, oriented X 3, normal speech Skin: dry, intact, normal color, normal temperat ure Wound/incision: Location: Rgroin bruise, tender Psychiatry: normal affect, normal judgment/insig ht, normal mood, no hallucinations Results Findings/Data: Laboratory Tests 06/2607 443 443 2005 163 Chemistry Sodium (134 - 147 mEq/L) 142 [...] - 110 MG/DL) 265 H Laboratory Tests 06/264 1648 Hematology WBC (4.5 - 11.0 x10 [...] (Auto) (14.0 - 32.0 %) 10.3 L [place] % (Auto) (4.8 - 9.0 %) 11.3 H Eos % (Auto) (0.3 - 3.7 %) 1.6 Baso % (Auto) (0.0 - 2.0 %) 0.1 Neut # (Auto) (2.0 - 7.6 x10 3/uL) 6.99 Lymph # (Auto) (1.0 - 3.8 x10 3/uL) 0.95 L [place] # (Auto) (0.1 - 0.8 x10 3/uL) [...] No obvious infiltrates or consolidations. Impression By: [email or web address] Virgil Weiner M.D. Diagnosis, Assessment Plan Plan discussed [...] Signed by Inga Robertson MD on at 0821 RPT #:[id number] END OF REPORT 2021-06-25 17:14:00-00:00 [phone] [address] PATIENT NAME: TAMY MARTINEZ ADMIT DATE: ACCOUNT NO: [id number] [place] [facility] [place]GE: 61 REPORT TYPE: eECHOCARDIOGRAM REPORT SEX: F ADMITTING PHYSICIAN:Alejandra Zeng MD ATTENDING PHYSICIAN:Alejandra Zeng MD *[address] [address] Limited Transthoracic Echocardiogram Patient: Tamy Martinez Study Date: 06/23/2021 BP: Location: [facility] URN: [id number] [id number] : 1960 Age: 61 Height: 60 in / 152.4 cm Gender: F Weight: 213 .6 lb / 97.1 kg BMI/BSA: 41.8 kg/m 2 / 1.92 m 2 *Ordering Physician: * Jazmine Pollack NP *Interpreting Physician: * Inga Robertson MD *Color Specialist: * Mecca Ewing Study data: Transthoracic echocardiogram, [...] The aortic root is normal in size. Pericardium: A trivial pericardial effusion is i dentified anterior to the heart. Systemic veins: Inferior vena cava: The vessel is normal in size . PATIENT NAME: TAMY MARTINEZ ACCOUNT #: [id number] Measurements Left ventricle Value 05/13/2021 Ref IVORY, [...] PATIENT NAME: TAMY MARTINEZ ACCOUNT #: [id number] 2021-06-25 14:35:00-00:00 [facility] Cardiothoracic Surgery Prog REPORT#:[id number] REPORT STATUS: Signed DATE:06/25/21 TIME: 1435 PATIENT: TAMY MARTINEZ UNIT #: [id number] ROOM/BED: 3308-1 : 64 AGE: 61 SEX: F ATTEND: Conrado Zeng MD ADM AUTHOR: Loly Agee * ALL edits or amendments must be made on the tradeNOW/Suso document * General Post-op: day 1 Status [...] soft, non-tender, no distention Extremities: moves all Neuro/REIMBURSEMENT MANAGER: alert, oriented X 3, normal speech, n [...] (DC) Heparin Sodium (HEPARIN 5000 UNITS/ML) 12,500 U NIT DAILY PRN PRN I- CATHETER (DC) Dextrose/Water [...] Glucose (mg/dL) (MG/DL) 295 Laboratory Tests 06/24 164 Coagulation Activated Coag Time (74 - 137 [...] - 32.0 %) 2.4 L 1.4 L [place] % (Auto) (4.8 - 9.0 %) 6.5 4.3 L Eos % (Auto) (0.3 - 3.7 %) 0.0 L 0.0 L Baso % (Auto) (0.0 - 2.0 %) 0.0 0.1 Neut # (Auto) (2.0 - 7.6 x10 3/uL) 11.23 H 22.6 6 H Lymph # (Auto) (1.0 - 3.8 x10 3/uL) 0.30 L 0.33 L [place] # (Auto) (0.1 - 0.8 x10 3/uL) 0.80 1.05 H Eos # (Auto) (0.0 - 0.2 x10 3/uL) 0.00 0.00 Baso # (Auto) (0.0 - 0.2 x10 3/uL) 0.00 0.03 Abs Immat Gran (auto) (0.00 - 0.03 x10 3/uL) 0 .04 H 0.15 H Add Manual Diff NO [...] today. The patient was taken to the incinerator plant laborer, and after removal of Impella, attempts were [...] with Dr Whitt Consultants: cardiology, cardiovascular surgery, critical/pediatric critical care nurse, hospitalist at 1537 at 0756 RPT #:[id number] END OF REPORT 2021-06-25 13:33:00-00:00 [facility] Hospitalist Progress Note REPORT#:[id number] REPORT STATUS: Signed DATE:06/25/21 TIME: 1333 PATIENT: TAMY MARTINEZ UNIT #: [id number] ROOM/BED: [place] [address] : 64 AGE: 61 SEX: F ATTEND: Conrado Zeng MD ADM AUTHOR: Agnes Almeida MD * ALL edits or amendments must be made on the tradeNOW/computer document * Subjective Chief complaint: she complaint [...] F low FiO2 Mean Ox Delivery Rate 04/ 0800 75 13 91/45 65 99 04/15 0749 99 Nasal 2 cannula 06/25 0730 Nasal 2 cannula 06/25 0730 80 25 95/44 63 98 04/15 [...] /14 2330 89 14 98/51 73 86 /14 2315 79 19 96/52 64 94 /14 2300 77 12 115/58 83 94 /14 2245 75 13 114/58 83 94 /14 [...] /14 2014 79 13 100/49 70 100 /14 2000 80 12 120/55 79 100 /14 1945 79 13 117/49 71 100 04/14 1930 75 13 126/51 74 100 06/24 [...] all, no calf tenderness, no e agata Neuro/REIMBURSEMENT MANAGER: alert, oriented X 3, CNII-XII intact, normal [...] - 32.0 %) 2.4 L 1.4 L [place] % (Auto) (4.8 - 9.0 %) 6.5 4.3 L Eos % (Auto) (0.3 - 3.7 %) 0.0 L 0.0 L Baso % (Auto) (0.0 - 2.0 %) 0.0 0.1 Neut # (Auto) (2.0 - 7.6 x10 3/uL) 11.23 H 22.6 6 H Lymph # (Auto) (1.0 - 3.8 x10 3/uL) 0.30 L 0.33 L [place] # (Auto) (0.1 - 0.8 x10 3/uL) [...] Diagnosis, Assessment Plan Consultants: cardiology, cardiovascular surgery, critical/pediatric critical care nurse, hospitalist Free Text DxA P Notes Free [...] 07/23 1429 2302 Sodium Chloride 1,000 ML .[id number] 06/23 1430 DC 06/23 IV 06/24 0349 [...] Agnes Almeida MD on 2 at 1339 RPT #:[id number] END OF REPORT 2021-06-25 09:48:00-00:00 [facility] Cardiology Progress Note REPORT#:[id number] REPORT STATUS: Signed DATE:06/25/21 TIME: 0948 PATIENT: TAMY MARTINEZ UNIT #: [id number] ROOM/BED: [place] [address] : 64 AGE: 61 SEX: F ATTEND: Conrado Zeng MD ADM AUTHOR: Zoraida Felder CNP * ALL edits or amendments must be made on the el ectronic/computer document * Subjective Chief complaint: Awake and [...] O2 Flow FiO2 Mean Ox Delivery Rate 06/25 0800 75 13 91/45 65 99 /15 0730 80 25 95/44 63 98 /15 0700 73 13 101/49 71 100 04/15 [...] /15 0314 79 13 119/57 82 100 04/15 0230 84 12 108/54 76 98 04/15 0200 77 12 98/46 67 98 04/15 0130 77 15 103/47 63 98 04/15 0100 80 16 94/46 64 88 04/15 0030 80 13 92/54 72 89 04/15 0022 82 15 89/53 69 88 04/15 0021 82 14 100/51 70 92 04/15 0000 83 13 109/54 76 91 04/14 2345 82 14 94/53 71 92 /14 2330 89 14 98/51 73 86 /14 2315 79 19 96/52 64 94 /14 2300 77 12 115/58 83 94 14 2245 75 13 114/58 83 94 04/14 2230 36.1 04/14 2230 Nasal 2 cannula 06/24 2230 75 13 114/51 72 96 06/24 2215 78 15 111/53 77 94 06/24 2200 79 14 105/52 75 100 14 2145 79 13 112/53 73 95 06/24 2130 79 14 105/52 72 99 14 2115 77 13 99/51 71 100 14 2100 74 15 83/46 59 100 14 2046 80 20 95/44 64 99 06/24 2029 76 14 119/47 68 100 06/24 2014 79 13 100/49 70 100 /14 2000 80 12 120/55 79 100 14 1945 79 13 117/49 71 100 14 1930 75 13 126/51 74 100 /14 1916 79 13 106/53 69 100 14 1907 79 13 89/50 60 100 06/24 1901 80 15 83/41 53 100 14 1830 77 15 102/47 65 100 Simple [...] 06/24 1100 66 14 93/54 70 98 06/24 1030 61 21 75/40 55 99 06/24 1000 61 17 74/42 54 98 PATIENT [...] and hands), no edema Musculoskeletal: normal inspection Neuro/REIMBURSEMENT MANAGER: alert, oriented X 3, normal speech Skin: [...] (MG/DL) 295 Laboratory Tests 06/24 06/24 06/24 1645 1240 1030 Coagulation PTT ([place]) (25.0 - 39.5 Seconds) 96.3 H 93.7 H Activated Coag Time (74 - 137 SEC) 136 Laboratory Tests 06/25 06/24 06/24 9455 2025 1240 Hematology WBC (4.5 - 11.0 [...] - 32.0 %) 2.4 L 1.4 L [place] % (Auto) (4.8 - 9.0 %) 6.5 4.3 L Eos % (Auto) (0.3 - 3.7 %) 0.0 L 0.0 L Baso % (Auto) (0.0 - 2.0 %) 0.0 0.1 Neut # (Auto) (2.0 - 7.6 x10 3/uL) 11.23 H 22.6 6 H Lymph # (Auto) (1.0 - 3.8 x10 3/uL) 0.30 L 0.33 L [place] # (Auto) (0.1 - 0.8 x10 3/uL) [...] (Auto) (14.0 - 32.0 %) 10.2 L [place] % (Auto) (4.8 - 9.0 %) 7.6 Eos % (Auto) (0.3 - 3.7 %) 0.0 L Baso % (Auto) (0.0 - 2.0 %) 0.1 Neut # (Auto) (2.0 - 7.6 x10 3/uL) 10.24 H Lymph # (Auto) (1.0 - 3.8 x10 3/uL) 1.28 [place] # (Auto) (0.1 - 0.8 x10 3/uL) [...] of CCU to CV1. at 1215 RPT #:[id number] END OF REPORT 2021-06-25 09:48:00-00:00 [facility] Cardiology Progress Note REPORT#:[id number] REPORT STATUS: Signed DATE:06/25/21 TIME: 0948 PATIENT: TAMY MARTINEZ UNIT #: [id number] ROOM/BED: G3349-1 : 64 AGE: 61 SEX: F ATTEND: Conrado Zeng MD ADM AUTHOR: Zoraida Felder [employer] HOME [employer]EE[employer] * ALL edits or amendments must be made on the tradeNOW/Suso document * Subjective Chief complaint: Awake and [...] 06/25 0800 75 13 91/45 65 99 /15 0730 80 25 95/44 63 98 /15 0700 73 13 101/49 71 100 04/15 0600 80 18 101/46 67 99 04/15 0546 84 28 108/51 74 100 /15 0530 86 11 105/54 75 99 /15 0500 79 12 110/55 77 99 04/15 0430 78 13 107/55 78 99 /15 0415 36.6 04/15 0400 78 12 113/55 78 99 /15 0330 77 13 118/51 81 100 /15 0314 79 13 119/57 82 100 04/15 [...] 06/24 2330 89 14 98/51 73 86 /14 2315 79 19 96/52 64 94 /14 2300 77 12 115/58 83 94 14 2245 75 13 114/58 83 94 04/14 2230 36.1 06/24 2230 Nasal 2 cannula 06/24 2230 75 13 114/51 72 96 /14 2215 78 15 111/53 77 94 14 2200 79 14 105/52 75 100 /14 2145 79 13 112/53 73 95 /14 2130 79 14 105/52 72 99 /14 2115 77 13 99/51 71 100 /14 2100 74 15 83/46 59 100 /14 2046 80 20 95/44 64 99 /14 2030 76 14 119/47 68 100 /2014 79 13 100/49 70 100 /14 2001 80 12 120/55 79 100 /14 1945 79 13 117/49 71 100 14 1930 75 13 126/51 74 100 /14 1916 79 13 106/53 69 100 /14 1907 79 13 89/50 60 100 06/24 1901 80 15 83/41 53 100 14 1830 77 15 102/47 65 100 Simple 8 mask 06/24 1815 76 15 99/45 63 100 Simple 8 mask 06/24 1800 35.7 77 15 142/55 84 100 Simple 8 mask 06/24 1501 66 45 110/54 78 100 14 1430 66 18 98/52 73 100 06/24 1400 67 13 91/45 65 100 06/24 1330 72 15 94/51 69 99 14 1300 69 16 88/49 64 99 06/24 1230 70 11 85/48 61 99 /14 1200 36.4 67 12 87/52 66 98 2 06/24 1130 63 14 82/45 60 98 /14 1100 66 14 93/54 70 98 04/14 1030 61 21 75/40 55 99 04/14 1000 61 17 74/42 54 98 PATIENT [...] Dextrose/Water (DEXTROSE 50% W SYRINGE) 50 ML O NCE ONE IV (DC) Insulin Human Regular (HUMAN [...] Ondansetron HCl (ZOFRAN) 0 .STK-MED ONE .ROUTE (DC) Sevoflurane (ULTANE) 0 .STK-MED ONE INH (DC) [...] Mupirocin (BACTROBAN 2% 22 GM OINTMENT) 1 APPLI C BID NASAL Insulin Human Lispro (HUMALOG) 0 [...] and hands), no edema Musculoskeletal: normal inspection Neuro/REIMBURSEMENT MANAGER: alert, oriented X 3, normal speech Skin: [...] (MG/DL) 295 Laboratory Tests 06/24 06/24 06/24 1645 1240 1030 Coagulation PTT ([place]) (25.0 - 39.5 Seconds) 96.3 H 93.7 [...] - 32.0 %) 2.4 L 1.4 L [place] % (Auto) (4.8 - 9.0 %) 6.5 4.3 L Eos % (Auto) (0.3 - 3.7 %) 0.0 L 0.0 L Baso % (Auto) (0.0 - 2.0 %) 0.0 0.1 Neut # (Auto) (2.0 - 7.6 x10 3/uL) 11.23 H 22.6 6 H Lymph # (Auto) (1.0 - 3.8 x10 3/uL) 0.30 L 0.33 L [place] # (Auto) (0.1 - 0.8 x10 3/uL) [...] (Auto) (14.0 - 32.0 %) 10.2 L [place] % (Auto) (4.8 - 9.0 %) 7.6 Eos % (Auto) (0.3 - 3.7 %) 0.0 L Baso % (Auto) (0.0 - 2.0 %) 0.1 Neut # (Auto) (2.0 - 7.6 x10 3/uL) 10.24 H Lymph # (Auto) (1.0 - 3.8 x10 3/uL) 1.28 [place] # (Auto) (0.1 - 0.8 x10 3/uL) [...] Inga Robertson MD on at 0758 RPT #:[id number] END OF REPORT 2021-06-24 21:18:00-00:00 [id number] [place] [address] PATIENT NAME: TAMY MARTINEZ ADMIT DATE: ACCOUNT NO: [id number] [place] [facility] [place]GE: 61 REPORT TYPE: 360 - QUERY RESPONSE DOCUMENT SEX: F ADMITTING PHYSICIAN:Alejandra Zeng MD ATTENDING PHYSICIAN:Alejandra Zeng MD Provider Query QUERY TEXT: Condition General 360MD Query related questions should be directed to: Cristo Carrillo RN # [phone] Based on your clinical judgement can you specify the known or suspected condition that represents the [facility] indicators listed? ( Ex - Overweight, [...] Signed by Agnes Almeida MD on at 8545 PATIENT NAME: TAMY MARTINEZ ACCOUNT #: [id number] 2021-06-24 18:46:00-00:00 [facility] ([facility]) Critical Care Consult Note REPORT#:[id number] REPORT STATUS: Signed DATE:06/24/21 TIME: 1845 PATIENT: TAMY MARTINEZ UNIT #: [id number] [address]BED: [address] : 64 AGE: 61 SEX: F ATTEND: Conrado Zeng MD ADM AUTHOR: Eduardo Robledo MD * ALL edits or amendments must be made on the tradeNOW/computer document * History of Present Illness HPI [...] medical history significant for CAD with prior PCI/MIKHIAL to LAD (), HTN, DM, CVA, HLD [...] SUCC XL 12.5 MG PO BID 05/10/21 (TOPROL XL) 1450 1136 Strength: 25 MG TAB.SR.24H ISOSORBIDE DINITRATE 60 MG PO DAILY 05/10/21 0 06/23/21 (ISORDIL) 1452 1136 Strength: 40 MG TAB [...] 1 DC 06/24 Sodium Chloride IV 1705 (HEPARIN [...] 06/24 0900 DA 06/24 (ISORDIL) PO 07/24 858 0917 Losartan Potassium 50 MG DAILY 06/24 0900 AC (COZAAR) PO 07/24 0859 09 Atorvastatin Calcium 40 MG BEDTIME 06/23 2100 [...] 06/23 1730 AC 06/24 (morphine SULFATE) IV 04/18 1729 0634 Electrolytic, Caloric, And Maico Sig/Nandini Start [...] (DEXTROSE 50% W IV 07/23 172 SYRINGE) Dextrose/Water 50 ML ASDIR PRN 06/23 1730 DC (DEXTROSE 50% W IV 07/23 1729 SYRINGE) Sodium Chloride 1,000 ML .Q10H 06/23 1730 AC (SODIUM CHLORIDE IV 07/23 1729 1436 0.9%) Sodium Chloride 1,000 ML .[id number] 06/23 1430 DC 06/23 (SODIUM CHLORIDE IV [...] Documented: Result Date Time Pulse Ox 100 06/240 B/P 102/47 06/240 B/P Mean 65 06/24 1830 O2 Delivery Simple mask 06/24 1829 O2 Flow Rate 8 06/24 1830 Pulse 77 06/24 1830 Resp 15 06/24 1830 Temp 35.7 06/24 1800 FiO2 28 06/24 [...] Sodium Chloride (SODIUM CHLORIDE 0.9%) 1,000 ML .[id number] IV (DC) Sodium Chloride (SODIUM CHLORIDE 0.9%) [...] 1645 1240 1030 0738 0500 Coagulation PTT ([place]) (25.0 - 39.5 Seconds) 96.3 H 93.7 H 115.0 H 129.9 H Activated Coag Time (74 - 137 SEC) 136 06/24 06/23 06/23 0200 2200 2055 Coagulation PTT (Samuel) (25.0 - 39.5 Seconds) 45.4 H 33.3 [...] - 32.0 %) 10.2 L 5.4 L [place] % (Auto) (4.8 - 9.0 %) 7.6 7.5 Eos % (Auto) (0.3 - 3.7 %) 0.0 L 0.0 L Baso % (Auto) (0.0 - 2.0 %) 0.1 0.1 Neut # (Auto) (2.0 - 7.6 x10 3/uL) 10.24 H 13.9 1 H Lymph # (Auto) (1.0 - 3.8 x10 3/uL) 1.28 0.87 L [place] # (Auto) (0.1 - 0.8 x10 3/uL) 0.95 H 1.21 H Eos # (Auto) (0.0 - 0.2 x10 3/uL) 0.00 0.00 Baso # (Auto) (0.0 - 0.2 x10 3/uL) 0.01 0.01 Abs Immat Gran (auto) (0.00 - 0.03 x10 3/uL) 0. 06 H 0.10 H Add Manual Diff NO [...] 4. Rheumatoid arthritis Consultants: cardiology, cardiovascular surgery, critical/pediatric critical care nurse, hospitalist Plan discussed with: patient, nurse Critical [...] SCDs for DVT prophylaxis Eduardo Robledo MD [facility] 06/24/2021 8.40 PM Quality: Gen Med Crit Care Current Medications Current medication review: Home [...] Robledo MD on 06/11 08/01 at 0612 [facility] #:[id number] END OF REPORT 2021-06-24 17:36:00-00:00 [id number] [address] PATIENT NAME: TAMY MARTINEZ ADMIT DATE: ACCOUNT NO: [id number] [place] [facility] [place]GE: 61 REPORT TYPE: OPERATIVE REPORT SEX: F ADMITTING PHYSICIAN:Alejandra Zeng MD ATTENDING PHYSICIAN:Alejandra Zeng MD OPERATION DATE: 06/24/2021 PREOPERATIVE DIAGNOSIS: Bleeding from right comm on femoral artery. POSTOPERATIVE DIAGNOSIS: Bleeding from right com mon femoral artery. PROCEDURES PERFORMED: 1. Exploration of right common femoral artery. 2. Repair of right common femoral artery. SURGEON: Martina Whitt MD MEMBERSHIP MANAGER: Mary Mcdonnell. ANESTHESIOLOGIST: Dr. Brown. ANESTHESIA: General endotracheal anesthesia. ESTIMATED BLOOD LOSS: 20 mL. INDICATIONS: Ms. Martinez is a 61-year-old female who had an Impella placed for cardiogenic shock. She has recovered completely and she was ready for the Impella to be removed today. The patient was marck en to the incinerator plant laborer, and after removal of Impella, unsuccessful attempts [...] Ms. Martinez was identified i n the incinerator plant laborer. The groin was already prepped prior to my arrival and the gonzález ent had a 14-Estonian sheath in the groin, and there was a large hematoma in the right groin. After induction of anesthesia, right common femoral artery was e xplored via a 4 cm transverse incision centered on the midpoint of the right inguinal ligament. Subcutaneous tissue was divided with Bovie cautery. T he 14-Estonian sheath was identified and traced down to the right common femoral artery. Next, two concentric 5-0 Prolene pursestring sutures were placed around the sheath. The sheath was then removed and sutures were tied. This was very hem ostatic. Pulses were checked PATIENT NAME: TAMY MARTINEZ ACCOUNT #: [id number] in the right lower extremity. The patient had go od dorsalis pedis signals. Next, hemostasis was confirmed and the i ncision was closed in layers using 2-0 Vicryl for subcutaneous tissue and 4-0 Vicryl fo r the skin. The patient was extubated in the incinerator plant laborer and moved to PACU in s table condition. Dictated By: Martina Whitt MD WT: OP:GLIDIA/PETERSON/JULIO C Conf#: [id number]#: [id number] Authenticated and Edited by Reno Whitt MD On 06/26/21 7:53:11 AM at 0755 PATIENT NAME: TAMY MARTINEZ ACCOUNT #: [id number] 2021-06-24 17:29:00-00:00 [facility] ([facility]) Brief Op Note REPORT#:[id number] REPORT STATUS: Signed DATE:06/24/21 TIME: 1729 PATIENT: TAMY MARTINEZ UNIT #: [id number] ROOM/BED: [place] [address] : [birth year] AGE: 61 SEX: F ATTEND: Conrado Zeng MD ADM AUTHOR: Martina Whitt MD * ALL edits or amendments must be made on the tradeNOW/Suso document * Op/Inv Proc Note - Brief 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 Post-procedure diagnosis: same as pre procedure dx Procedures performed: Exploration of RCFA Repair of RCFA Primary Surgeon: Peri Pull Over(s): Mary Mdconnell Findings: 5 mm defect in the RCFA Complications: none Estimated blood loss in ml's: 20 cc Specimens removed/altered: none at 1732 RPT #:[id number] END OF REPORT 2021-06-24 12:50:00-00:00 [facility] ([facility]) Cardiothoracic Surgery Consult REPORT#:[id number] REPORT STATUS: Signed DATE:06/24/21 TIME: 1250 PATIENT: TAMY MARTINEZ UNIT #: [id number] ROOM/BED: [place] [address] : 64 AGE: 61 SEX: F ATTEND: Conrado Zeng MD ADM AUTHOR: Stephen Canela NP * ALL edits or amendments must be made on the tradeNOW/computer document * Stephen Canela 06/24/21 1250: History of Present Illness HPI Chief complaint: RCA dissection PCP: PCP: No Primary or Family Physician Requesting Clinician Dr. Mcdonald HPI: Ms Tamy Matrinez is a 61 year old femal e with past medical history significant for CAD with prior PCI/MIKHAIL to LAD (), HTN, DM, CVA, and HLD [facility] Patient underwent successful PCI [...] Ox 97 06/25 1899 B/P 118/53 06/25 1899 B/P Mean 77 06/25 1900 Pulse 81 [...] moves all Musculoskeletal: full range of motion Neuro/REIMBURSEMENT MANAGER: alert, oriented X 3 Skin: dry, intact Diagnosis, Assessment Plan Free Text A P: Ms Tamy Martinez is a 61 year old femal e with past medical history significant for CAD with prior PCI/MIKHAIL to LAD (), HTN, DM, CVA, and HLD [facility] Patient underwent successful PCI [...] NP on at 2054 at 1004 RPT #:[id number] END OF REPORT 2021-06-24 12:10:00-00:00 [phone] [place] [address] PATIENT NAME: TAMY MARTINEZ ADMIT DATE: ACCOUNT NO: [id number] ROOM NO: G.3308 AGE: 61 REPORT TYPE: eECHOCARDIOGRAM REPORT SEX: F ADMITTING PHYSICIAN:Alejandra Zeng MD ATTENDING PHYSICIAN:Alejandra Zeng MD *[address] [place] [address] Limited Transthoracic Echocardiogram Patient: Tamy Martinez Study Date: 06/24/2021 BP: 110 / 56 Location: [facility] URN: [id number] 658 : 1960 Age: 61 Height: 60 in / 152.4 cm Gender: F Weight: 212 .6 lb / 96.6 kg BMI/BSA: 41.6 kg/m 2 / 1.92 m 2 *Ordering Physician: * Inga Robertson MD *Interpreting Physician: * Inga Robertson MD *Color Specialist: * Angelique Lynch Indications: IMPELLA. Study data: Transthoracic echocardiogram, limite d study. Procedure: Transthoracic echocardiography was performed. Im ages were obtained using a [employer] cardiac ultrasound machine. Image quality w as [...] PATIENT NAME: TAMY MARTINEZ ACCOUNT #: [id number] Measurements Left ventricle Value 05/13/2021 Ref IVORY, [...] PATIENT NAME: TAMY MARTINEZ ACCOUNT #: [id number] 2021-06-24 10:07:00-00:00 [facility] ([facility]) Hospitalist History Physical REPORT#:[id number] REPORT STATUS: Signed DATE:06/24/21 TIME: 1007 PATIENT: TAMY MARTINEZ UNIT #: [id number] ROOM/BED: [place] [address] : 64 AGE: 61 SEX: F ATTEND: Kathi Zeng MD ADM AUTHOR: Agnes Almeida MD * ALL edits or amendments must be made on the tradeNOW/computer document * History of Present Illness HPI [...] Result Date Time Pulse Ox 100 06/24 0640 Pulse 68 06/24 0640 Resp 13 06/24 0640 B/P 165/63 06/24 0630 B/P Mean 107 06/24 0630 Temp 37.2 06/24 0400 O2 Delivery Nasal [...] all, no calf tenderness, no e agata Neuro/REIMBURSEMENT MANAGER: alert, oriented X 3, CNII-XII intact, normal speech, no motor deficits, no sensory deficits Skin: dry, intact Results Findings/Data: Laboratory Tests: 06/24 06/24 06/24 06/24 1240 1121 1030 0830 Chemistry POC Glucose (70 - 110 MG/DL) 165 H 201 H Coagulation PTT ([facility]) (25.0 - 39.5 Seconds) [...] (Auto) (14.0 - 32.0 %) 10.2 L [place] % (Auto) (4.8 - 9.0 %) 7.6 Eos % (Auto) (0.3 - 3.7 %) 0.0 L Baso % (Auto) (0.0 - 2.0 %) 0.1 Neut # (Auto) (2.0 - 7.6 x10 3/uL) 10.24 H Lymph # (Auto) (1.0 - 3.8 x10 3/uL) 1.28 [place] # (Auto) (0.1 - 0.8 x10 3/uL) [...] (Auto) (14.0 - 32.0 %) 5.4 L [place] % (Auto) (4.8 - 9.0 %) 7.5 Eos % (Auto) (0.3 - 3.7 %) 0.0 L Baso % (Auto) (0.0 - 2.0 %) 0.1 Neut # (Auto) (2.0 - 7.6 x10 3/uL) 13.91 H Lymph # (Auto) (1.0 - 3.8 x10 3/uL) 0.87 L [place] # (Auto) (0.1 - 0.8 x10 3/uL) [...] - 110 MG/DL) 316 H Coagulation PTT ([place]) (25.0 - 39.5 Seconds) 65.5 H 104.0 [...] (Auto) (14.0 - 32.0 %) 6.3 L [place] % (Auto) (4.8 - 9.0 %) 3.4 L Eos % (Auto) (0.3 - 3.7 %) 0.0 L Baso % (Auto) (0.0 - 2.0 %) 0.1 Neut # (Auto) (2.0 - 7.6 x10 3/uL) 10.08 H Lymph # (Auto) (1.0 - 3.8 x10 3/uL) 0.71 L [place] # (Auto) (0.1 - 0.8 x10 3/uL) [...] - 110 MG/DL) 365 H Coagulation PTT ([place]) (25.0 - 39.5 Seconds) > 200.0 H [...] continue home med Consultants: cardiology, cardiovascular surgery, critical/pediatric critical care nurse Quality: Gen Med Crit Care Current Medications [...] 07/23 1429 2302 Sodium Chloride 1,000 ML .[id number] 06/23 1430 DC 06/23 IV 06/24 0349 [...] Almeida MD on 2 at 2103 RPT #:[id number] END OF REPORT 2021-06-24 09:03:00-00:00 [facility] REPORT#:[id number] REPORT STATUS: Signed DATE:06/24/21 TIME: 902 PATIENT: TAMY MARTINEZ UNIT #: [id number] ROOM/BED: [place] [address] : [birth year] AGE: 61 SEX: F ATTEND: Conrado Zeng MD ADM AUTHOR: Zoraida Felder TOURIST HOME KEEPER * ALL edits or amendments must be made on the tradeNOW/computer document * History of Present Illness HPI [...] O2 Flow FiO2 Mean Ox Delivery Rate 06/24 0640 68 13 100 04/14 0630 76 26 165/63 107 100 /14 0628 71 15 175/77 110 100 /14 0615 68 15 100 04/14 0600 67 17 100 /14 0545 67 14 137/58 93 100 04/14 [...] 04/14 0015 64 15 105/63 76 99 06/24 0000 37.3 65 13 127/58 83 98 [...] 2045 59 18 109/59 81 99 06/23 2029 63 19 104/54 76 98 06/23 2014 63 16 108/59 79 98 06/24 1999 [...] Sodium Chloride (SODIUM CHLORIDE 0.9%) 1,000 ML .[id number] IV (DC) Sodium Chloride (SODIUM CHLORIDE 0.9%) [...] LE assessment: no edema Musculoskeletal: normal inspection Neuro/REIMBURSEMENT MANAGER: alert, oriented X 3, normal speech Skin: dry Wound/incision: Location: Right groin access site with bruising Psychiatry: normal affect, normal mood Results Findings/Data: Laboratory Tests 06/24 06/24 06/23 06/23 06/23 0830 499 2013 1700 1124 Chemistry Sodium (134 - [...] - 32.0 %) 5.4 L 6.3 L [place] % (Auto) (4.8 - 9.0 %) 7.5 3.4 L Eos % (Auto) (0.3 - 3.7 %) 0.0 L 0.0 L Baso % (Auto) (0.0 - 2.0 %) 0.1 0.1 Neut # (Auto) (2.0 - 7.6 x10 3/uL) 13.91 H 10.0 8 H Lymph # (Auto) (1.0 - 3.8 x10 3/uL) 0.87 L 0.71 L [place] # (Auto) (0.1 - 0.8 x10 3/uL) [...] Inga Robertson MD on at 2256 RPT #:[id number] END OF REPORT 2021-06-24 09:03:00-00:00 [facility]iology Consultation REPORT#:[id number] REPORT STATUS: Signed DATE:06/24/21 TIME: 902 PATIENT: TAMY MARTINEZ UNIT #: [id number] ROOM/BED: 3308-1 : 62 AGE: 61 SEX: F ATTEND: Conrado Zeng MD ADM AUTHOR: Zoraida Felder ACNP * ALL edits or amendments must be made on the el ectronic/computer document * History of Present Illness HPI [...] /14 0628 71 15 175/77 110 100 / 0615 68 15 100 /14 0600 67 17 100 /14 0545 67 14 137/58 93 100 / 0530 67 18 143/67 96 100 /14 0515 66 19 153/67 96 100 /14 0500 66 12 125/58 84 100 / 0445 66 12 130/61 88 100 /14 0430 66 13 142/63 90 100 / 0415 66 14 128/61 88 100 04/14 [...] 04/ 2215 55 17 125/60 87 99 04/ 2214 54 17 127/60 87 99 04/ 2200 56 20 98 04/ 2145 62 16 127/65 91 98 04/ 2130 64 13 125/65 89 99 04/ 2115 61 16 113/58 80 99 04/ 2100 60 17 117/60 83 99 / 2045 59 18 109/59 81 99 /2029 63 19 104/54 76 98 04/2014 63 16 108/59 79 98 04/1999 Nasal 2 cannula 041999 37.1 62 18 103/56 77 99 04/ 1945 77 21 99/58 75 99 04/ 1939 60 17 111/56 77 98 04/ 1930 61 21 99 04/ 1915 63 17 128/59 85 100 06/23 [...] 0 ASDIR PRN IV (DC) Heparin Sodium (HEPARIN 5000 UNITS/ML) [...] Sodium Chloride (SODIUM CHLORIDE 0.9%) 1,000 ML .[id number] IV (DC) Sodium Chloride (SODIUM CHLORIDE 0.9%) [...] LE assessment: no edema Musculoskeletal: normal inspection Neuro/REIMBURSEMENT MANAGER: alert, oriented X 3, normal speech Skin: dry Wound/incision: Location: Right groin access site with bruising Psychiatry: normal affect, normal mood Results Findings/Data: Laboratory Tests 06/24 06/24 06/23 06/23 06/23 0830 0500 2013 1701 1124 Chemistry Sodium (134 - 147 mEq/L) [...] 0738 0500 0200 2200 2055 Coagulation PTT ([place]) (25.0 - 39.5 Seconds) 115.0 H 129.9 [...] - 32.0 %) 5.4 L 6.3 L [place] % (Auto) (4.8 - 9.0 %) 7.5 3.4 L Eos % (Auto) (0.3 - 3.7 %) 0.0 L 0.0 L Baso % (Auto) (0.0 - 2.0 %) 0.1 0.1 Neut # (Auto) (2.0 - 7.6 x10 3/uL) 13.91 H 10.0 8 H Lymph # (Auto) (1.0 - 3.8 x10 3/uL) 0.87 L 0.71 L [place] # (Auto) (0.1 - 0.8 x10 3/uL) [...] scale 4. Hyperlipidemia continue statin at 1440 [facility] #:[id number] END OF REPORT 2021-06-23 15:18:00-00:00 [id number] [place] [address] PATIENT NAME: TAMY MARTINEZ ADMIT DATE: 0 06/23/21 ACCOUNT NO: [id number] ROOM NO: G.3349 AGE: 61 REPORT TYPE: CARDIAC CATHETERIZATION REPORT [...] coronary artery stenosis. ACCESS: Right femoral artery 14-Estonian Impella w as left in place. COMPLICATIONS: [...] and ultraso und guidance and placed a 6-Estonian sheath and then too k a 6-Estonian JR4 guide into the aortic root, engaged [...] upgraded the 6-Fr ench sheath to the 14-Estonian Impella sheath and took Impella into the [...] and fam eladio were updated. PATIENT NAME: TAMY MARTINEZN ACCOUNT #: [id number] Dictated By: Dany Mcdonald MD WT: CATH:CARLOTA/CHRISTINA/JULIO C Conf#: [id number]/DID#: [id number] Authenticated by Dany Mcdonald MD On 07/14/2021 09:19:24 AM Electronically Signed by Dany Mcdonald MD on at 0919 PATIENT NAME: TAMY MARTINEZN ACCOUNT #: [id number] 2021-06-21 13:17:00-00:00 [id number] [place] [id number] PATIENT NAME: TAMY MARTINEZ ADMIT DATE: ACCOUNT NO: [id number] ROOM NO: AGE: 61 REPORT TYPE: eELECTROCARDIOGRAM REPORT SEX: F ADMITTING PHYSICIAN: ATTENDING PHYSICIAN:Dany Mcdonald MD Order: [id number] Test Reason : PREOP Test Date/Time Stamp: [...] PATIENT NAME: TAMY MARTINEZ ACCOUNT #: [id number] 2021-05-13 18:07:00-00:00 [id number] [place] [address] PATIENT NAME: TAMY MARTINEZ ADMIT DATE: ACCOUNT NO: [id number] ROOM NO: 3360 AGE: 61 REPORT TYPE: eECHOCARDIOGRAM REPORT SEX: F ADMITTING PHYSICIAN:Inga Robertson MD ATTENDING PHYSICIAN:Inga Robertson MD *[place] [address] Limited Transthoracic Echocardiogram Patient: Tamy Martinez Study Date: 05/13/2021 BP: 99 / 60 Location: [facility] URN: [id number] : 1960 Age: 61 Height: 60 in / 152.4 cm Gender: F Weight: 206 .6 lb / 93.9 kg BMI/BSA: 40.4 kg/m 2 / 2.05 m 2 *Ordering Physician: * Zoraida Felder management trainer *Interpreting Physician: * Inga Robertson MD *Color Specialist: * Jeana Epstein [facility] Indications: R/O PEROCARDIAL EFUSSION. Study data: Transthoracic echocardiogram, limite d study. Procedure: Transthoracic echocardiography was performed. Im age quality was fair. Limited 2D and limited spectral Doppler. Locatio n: Bedside. Patient status: Inpatient. Patient room number: 3360. St y status: Stat. Findings Left ventricle: The cavity [...] PATIENT NAME: TAMY MARTINEZ ACCOUNT #: [id number] Pericardium: There is no pericardial effusion. Systemic [...] PATIENT NAME: TAMY MARTINEZ ACCOUNT #: [id number] Peak E 0.08 m/sec 1.03 ------ Peak [...] PATIENT NAME: TAMY MARTINEZ ACCOUNT #: [id number] 2021-05-13 14:22:00-00:00 [id number] [address] PATIENT NAME: TAMY MARTINEZ ADMIT DATE: ACCOUNT NO: [id number] ROOM NO: [facility] AGE: 61 REPORT TYPE: eECHOCARDIOGRAM REPORT SEX: F ADMITTING PHYSICIAN:Inga Robertson MD ATTENDING PHYSICIAN:Inga Robertson MD *[address] [address] Limited Transthoracic Echocardiogram Patient: Tamy Martinez Study Date: 05/12/2021 BP: 118 / 64 Location: [facility] URN: [id number] : 1960 Age: 61 Height: 60 in / 152.4 cm Gender: F Weight: 296 .4 lb / 134.7 kg BMI/BSA: 58 kg/m 2 / 2.49 m 2 *Ordering Physician: * Dany Mcdonald *Interpreting Physician: * Inga Robertson MD *Color Specialist: * Anyg Tesfaye Indications: Hypotension. Study data: Transthoracic echocardiogram, limite d study. Procedure: Transthoracic echocardiography was performed. Im age quality was adequate. Limited 2D and limited spectral Dopple r. Location: [facility]. Patient status: Outpatient. Patient room number: 19. [...] PATIENT NAME: TAMY MARTINEZ ACCOUNT #: [id number] Right ventricle: Estimated TAPSE is 2.8 cm. [...] PATIENT NAME: TAMY MARTINEZ ACCOUNT #: [id number] Qs 5.74 L/min --------- Qs/bsa 2.3 L/(min-m [...] cm 2 --------- Pulmonic valve Value Ref WA v, ED 0.65 m/sec --------- Tricuspid valve Value Ref TR peak v 2.47 m/sec <=2.8 Peak RV-RA 24 mm Hg --------- PATIENT NAME: TAMY MARTINEZ ACCOUNT #: [id number] grad, S Aortic root Value Ref Root diam, ED 2.48 cm --------- MM Conclusions Summary: 1. Left ventricle: The cavity size is normal. Wa ll thickness is normal. Systolic function is normal. The estimated ejec tion fraction is 55-60%. Wall motion is normal; there are no reg ional wall motion abnormalities. Left ventricular diastolic func tion parameters are normal for the patient's age. [...] PATIENT NAME: TAMY MARTINEZ ACCOUNT #: [id number] 2021-05-13 09:26:00-00:00 [facility] REPORT#:[id number] REPORT STATUS: Signed DATE:05/13/21 TIME: 925 PATIENT: TAMY MARTINEZ UNIT #: [id number] ROOM/BED: [place] [address] : 64 AGE: 61 SEX: F ATTEND: Nicolle Robertson MD ADM AUTHOR: Zoraida Felder TOURIST HOME KEEPER * ALL edits or amendments must be made on the tradeNOW/Suso document * See Addendum Subjective Patient reports: [...] Sodium Chloride (SODIUM CHLORIDE 0.9%) 1,000 ML .S67T28N ONE IV (DC) Sodium Chloride (SODIUM CHLORIDE 0.9%) 500 ML DIR PRN IV Hydrocodone Bitart/Acetaminophen (NORCO 10/325) 1 TAB Q6H PRN PRN PO Diphenhydramine HCl (BENADRYL) 0 .STK-MED ONE .R OUTE (DC) Hydralazine HCl (APRESOLINE) 0 .STK-MED ONE .ROU TE (DC) Clopidogrel Bisulfate (CLOPIDOGREL BISULFATE) 0 .STK-MED [...] calf tenderness, no edema Musculoskeletal: normal inspection Neuro/REIMBURSEMENT MANAGER: alert, oriented X 3, normal speech Skin: [...] (8.0 - 10.5 mg/dL) 9.2 Laboratory Tests 05/12 05/12 05/12 05/12 05/12 1554 1457 1344 1157 1121 Coagulation Activated [...] (Auto) (14.0 - 32.0 %) 9.7 L [place] % (Auto) (4.8 - 9.0 %) 6.9 Eos % (Auto) (0.3 - 3.7 %) 0.0 L Baso % (Auto) (0.0 - 2.0 %) 0.1 Neut # (Auto) (2.0 - 7.6 x10 3/uL) 9.92 H Lymph # (Auto) (1.0 - 3.8 x10 3/uL) 1.16 [place] # (Auto) (0.1 - 0.8 x10 3/uL) [...] likely related to the procedure yesterday. Elle del real echo reviewed and it's unremarkable, normal EF, no pericardial effusion . Okay to discharge home and follow-up with Dr. Mcdonald next week. at 1700 RPT #:[id number] END OF REPORT 2021-05-13 08:03:00-00:00 [id number] [place] [address] PATIENT NAME: TAMY MARTINEZ ADMIT DATE: ACCOUNT NO: [id number] ROOM NO: 3360 AGE: 61 REPORT TYPE: eELECTROCARDIOGRAM REPORT SEX: F ADMITTING PHYSICIAN:Inga Robertson MD ATTENDING PHYSICIAN:Inga Robertson MD Order: [id number] Test Reason : POST PCI Test Date/Time [...] PATIENT NAME: TAMY MARTINEZ ACCOUNT #: [id number] 2021-05-12 16:18:00-00:00 [facility] ([facility]) History Physical - Adult REPORT#:[id number] REPORT STATUS: Signed DATE:05/12/21 TIME: 1618 PATIENT: TAMY MARTINEZ UNIT #: [id number] ROOM[address]BED: [address] : 62 AGE: 61 SEX: F ATTEND: Nicolle Robertson MD ADM AUTHOR: Zoraida Felder CNP * ALL edits or amendments must be made on the el DE [employer]ir[employer]/computer document * History of Present Illness HPI [...] 0856 LOSARTAN (COZAAR) 50 MG PO DAILY 05/10/2105/12 Strength: 50 MG TAB 1454 0856 CLOPIDOGREL (PLAVIX) 75 MG PO DAILY 05/10/21 Strength: 75 MG TAB 1454 0856 ATORVASTATIN (LIPITOR) 40 MG PO BEDTIME 05/12/21 Strength: 40 MG TAB 1455 0856 [...] 05/12 2100 AC (TOPROL XL) PO 06/11 2058 Hydralazine HCl 0 .STK-MED ONE 05/12 1120 DC 0 05/12 (APRESOLINE) .ROUTE 1141 Adenosine 0 .STK-MED ONE 05/12 1028 DC 05/12 (ADENOSCAN) IV 1141 Nitroglycerin/ 250 ML .STK-MED ONE 05/12 0959 D C 05/12 Dextrose IV 1141 (NITROGLYCERIN 50,000MCG/D5W 250ML) Verapamil HCl 0 .STK-MED ONE 05/12 0959 DC (ISOPTIN) IV Lidocaine HCl 0 .STK-MED ONE 05/12 0958 DC 03/ 2 (LIDOCAINE HCL/PF) .ROUTE 1141 Central Nervous System Agents Sig/Nandini Start time Last Medication Dose Route Stop Time Status Admin Aspirin 81 MG DAILY 05/13 0900 AC (ASPIRIN) PO 06/12 0859 Duloxetine HCl 20 MG DAILY 05/13 0900 AC (CYMBALTA) PO 06/12 0859 Gabapentin 600 MG BID 05/12 2100 AC (NEURONTIN) PO 06/11 205 Hydrocodone Bitart/ 0 .STK-MED ONE 05/12 1540 DC Acetaminophen PO (NORCO 10/325) Hydrocodone Bitart/ 1 [...] Time Status Admin Sodium Chloride 1,000 ML .P51L31M ONE 05/12 141 5 AC 05/12 (SODIUM [...] full range of motion, normal in spection Neuro/REIMBURSEMENT MANAGER: alert, oriented X 3, normal speech Skin: [...] NF here start insulin sliding scale Quality: Gen Med Crit Care Current Medications Current medication review: I attest that the foregoing medication list in [facility] medical record is true, accurate, and complete to the best of my knowled ge. at 1804 Electronically Signed by Inga Robertson MD on at 0755 RPT #:[id number] END OF REPORT 2021-05-12 12:29:00-00:00 [id number] [place] [address] PATIENT NAME: TAMY MARTINEZ ADMIT DATE: ACCOUNT NO: [id number] ROOM NO: [facility] AGE: 61 REPORT TYPE: eELECTROCARDIOGRAM REPORT SEX: F ADMITTING PHYSICIAN:Inga Robertson MD ATTENDING PHYSICIAN:Inga Robertson MD Order: [id number] Test Reason : PCI Test Date/Time Stamp: [...] 0936 PATIENT NAME: TAMY MARTINEZ ACCOUNT #: [id number] 2021-05-12 12:21:00-00:00 [id number] [place] [address] PATIENT NAME: TAMY MARTINEZ ADMIT DATE: ACCOUNT NO: [id number] ROOM NO: 3360 AGE: 61 REPORT TYPE: CARDIAC CATHETERIZATION REPORT [...] Synergy drug-eluting stent. ACCESS: Right femoral artery, 6-Estonian closed wi th Perclose. COMPLICATIONS: None. BLEEDING: [...] ultrasound guidance a nd fluoroscopy and placed 6-Estonian [place] sheath. Then, I took a 6-Estonian XB3.5 guide into aortic root and engaged [...] the wires and took PATIENT NAME: TAMY MARTIENZ ACCOUNT #: [id number] final angiogram which was sa tisfactory and [...] normal. Dictated By: Dany Mcdonald MD WT: CATH:G.CPS/RASSA/NTS Conf#: [id number]/DID#: [id number] Authenticated by Dany Mcdonald MD On 05/18/2021 10:42:38 AM Electronically Signed by Dany Mcdonald MD on at 1042 PATIENT NAME: TAMY MARTINEZ ACCOUNT #: [id number] 2021-05-10 14:16:00-00:00 [id number] [place] [address] PATIENT NAME: TAMY MARTINEZ ADMIT DATE: 05/10/21 ACCOUNT NO: [id number] ROOM NO: AGE: 61 REPORT TYPE: eELECTROCARDIOGRAM REPORT SEX: F ADMITTING PHYSICIAN: ATTENDING PHYSICIAN:Dany Mcdonald MD Order: [id number] Test Reason : PREOP Test Date/Time Stamp: MonMay 10 2021 14:16:28 Blood Pressure : / mmHG Vent. Rate : 072 BPM Atrial Rate : 072 BPM P-R Int : 136 ms QRS Dur : 080 ms QT Int : 406 ms P-R-T Axes : 059 -09 058 degre es QTc Int : 444 ms Normal sinus rhythm Left axis deviation Abnormal ECG PRE_OP Confirmed by LINDA FRIAS MD ([id number]) on 05/10/19 3:22:29 PM Referred By: Dany Mcdonald Confirmed by:LINDA TERRY MD at 1522 PATIENT NAME: TAMY MARTINEZUGHN ACCOUNT #: [id number]
--- NOTE | 2022-09-24 10:48 | RAD REPORT ---
EXAM DESCRIPTION: CT - Stone Protocol - 09/24/2022 10:40 am CLINICAL HISTORY: Flank pain. ABD PAIN COMPARISON: Stone Protocol dated 08/03/2022 TECHNIQUE: Axial images were obtained without oral or IV contrast. Lack of contrast limits solid org an and vascular assessment. The [id number] spans the entirety of the system partially obscuring uppermost abdomen and lung bases. Coronal reformatted images were obtained and reviewed. All CT scans are performed using dose optimization technique as appropriate and may include automated exposure control or mA/KV adjustment according to patient size. FINDINGS: The lower lung begum are clear. Cholecystectomy. Gastric banding. Imaged portions of the liver and spleen show no suspicious findings on non-contrast imaging. The panc reas and adrenal glands are normal. No pathologic lymphadenopathy in the abdomen or pelvis. No urinary tract stones or obstructive uropathy. No bowel obstruction, free air, free fluid or abscess. Normal appendix noted.Sigmoid diverticulosis c selena without diverticulitis. Moderate stool present colon. Mild lumbar degenerative changes. IMPRESSION: No urinary tract stones or obstructive uropathy. Sigmoid diverticulosis coli without diverticulitis.
[2022-09-24 11:45] LABS: Absolute Lymphocytes (CBC) 1.7 K/uL (0.7-4.9); Hematocrit 40.3 % (36.0-45.0); Lymphocytes % 32.8 % (15.3-44.8); MCV 84.1 fL (80-100); MPV 7.1 fL (7.6-11.3); RBC Red Blood Cell Count 4.79 M/uL (3.86-4.86)
[2022-09-24] MEDS ORDERED: NA CHLORIDE 0.9% 1,000 ML ONE (11:49)
[2022-09-24 12:04] LABS: Albumin 3.3 g/dL (3.4-5.0); Bilirubin Total 0.4 mg/dL (0.2-1.0); Potassium 3.8 mEq/L (3.5-5.1); Protein, Total 7.7 g/dL (6.4-8.2)
--- NOTE | 2022-09-24 12:10 | EDPHYS ---
Physician Documentation [facility] Name: Tamy Martinez Age: 62 yrs Sex: Female : 1960 Arrival Date: 09/24/2022 Time: 09:43 Bed 7 Private MD: ED Physician Ildefonso Melgar HPI: 09/24 12:32 This 62 yrs old Female presents to ER via Ambulatory with complaints of Abdominal Pain, kb Ear Pain, Neck Pain, <24hrs Old. 12:32 The patient or guardian reports flu symptoms, myalgias, no appetite. Onset: The kb symptoms/episode began/occurred this morning, at 05:00. Severity of symptoms: At their worst the symptoms were mild, moderate, in the emergency department the symptoms are unchanged. Modifying factors: The symptoms are alleviated by nothing, the symptoms are aggravated by nothing. Associated signs and symptoms: Pertinent positives: earache, sore throat. The patient has not experienced similar symptoms in the past. The patient has not recently seen a physician. Pt reports malaise, fatigue, bodyaches, headache, sore throat, bilateral ear pain, lower abd pain that started at 0500 this morning. . Historical: - Allergies: 09:57 Iodinated Contrast Media - IV Dye; hb - PMHx: 09:57 Diabetes - IDDM; Hypertension; Myocardial infarction; Rheumatoid Arthritis; hb - PSHx: 09:57 section; Cholecystectomy; lap band; hb - Immunization history:: Adult Immunizations up to date. - Social history:: Smoking status: Patient denies any tobacco usage or history of. ROS: 12:24 Respiratory: Negative for shortness of breath, cough, wheezing, and pleuritic chest kb pain. 12:24 Constitutional: Positive for body aches, chills, fatigue, malaise. 12:24 ENT: Positive for ear pain, sore throat. 12:24 Abdomen/GI: Positive for abdominal pain. 12:24 Neuro: Positive for headache. 12:24 All other systems are negative. Exam: 12:33 Constitutional: This is a well developed, well nourished patient who is awake, alert, kb and in no acute distress. Head/Face: Normocephalic, atraumatic. ENT: Moist Mucous membranes Cardiovascular: Regular rate and rhythm with a normal S1 and S2. No gallops, murmurs, or rubs. No pulse deficits. Respiratory: Respirations even and unlabored. No increased work of breathing. Talking in full sentences Abdomen/GI: Soft, non-tender. No distention Skin: Warm, dry with normal turgor. Normal color. MS/ Extremity: Pulses equal, no cyanosis. Neurovascular intact. Full, normal range of motion. Neuro: Awake and alert, GCS 15, oriented to person, place, time, and situation. Moves all extremities. Normal gait. Vital Signs: 09:55 BP 183 / 73; Pulse 76; Resp 16; Temp 98.3(O); Pulse Ox 99% on R/A; hb 12:03 BP 168 / 78; Pulse 74; Resp 18; Pulse Ox 98% on R/A; ph MDM: 09:53 Patient medically screened. kb 12:24 Data reviewed: vital signs, nurses notes. kb 12:33 Differential Diagnosis: Other flu, covid, viral syndrome, otitis media, strep, kb diverticulitis. Counseling: I had a detailed discussion with the patient and/or guardian regarding: the historical points, exam findings, and any diagnostic results supporting the discharge/admit diagnosis, lab results, radiology results, the need for outpatient follow up, a family practitioner, to return to the emergency department if symptoms worsen or persist or if there are any questions or concerns that arise at home. 09/24 10:05 Order name: CBC with Diff; Complete Time: 12:01 kb 09/24 10:05 Order name: CMP; Complete Time: 12:09 kb 09/24 10:05 Order name: Lipase; Complete Time: 12:09 kb 09/24 10:05 Order name: Troponin High Sensitivity; Complete Time: 12:09 kb 09/24 10:06 Order name: Flu; Complete Time: 10:52 kb 09/24 10:06 Order name: SARS-COV-2 RT PCR; Complete Time: 11:15 kb 09/24 10:06 Order name: CT Stone Protocol; Complete Time: 10:52 kb 09/24 10:05 Order name: EKG; Complete Time: 10:06 kb 09/24 10:05 Order name: IV Saline Lock; Complete Time: 11:51 kb 09/24 10:05 Order name: Labs collected and sent; Complete Time: 10:39 kb 09/24 10:05 Order name: EKG - Nurse/Tech; Complete Time: 10:08 kb 09/24 10:50 Order name: Labs - recollect needed: recollect the blood/ hemolyzed per Bridget eb Complete Time: 11:51 Administered Medications: 11:51 Drug: NS 0.9% IV 1000 ml Route: IV; Rate: 1 bolus; Site: left antecubital; ph 12:30 Follow up: Response: No adverse reaction; IV Status: Completed infusion ph 13:20 Drug: Fluconazole PO 100 mg Route: PO; ph 13:22 Follow up: Response: No adverse reaction; Medication administered at discharge. ph Disposition Summary: 09/24/22 12:09 Discharge Ordered Location: Home kb Condition: Stable kb Diagnosis - Influenza due to identified novel influenza A virus - B kb Followup: kb - With: Emergency Department - When: As needed - Reason: Worsening of condition Followup: kb - With: Private Physician - When: 2 - 3 days - Reason: Recheck today's complaints, Continuance of care, Re-evaluation by your physician Discharge Instructions: - Discharge Summary Sheet kb - Influenza, Adult, [id number] kb Forms: - Medication Reconciliation Form kb - Thank You Letter kb - Antibiotic Education kb - Prescription Opioid Use kb - Patient Portal Instructions kb - Work release form ph Prescriptions: - Tamiflu 75 mg Oral Capsule - take 1 tablet by ORAL route every 12 hours for 5 days; 10 tablet; Refills: 0, kb Product Selection Permitted Signatures: Dispatcher [employer] EDChhaya Troy, [facility] Anna Marie Portillo RN RN Xuan Jeong, RN RN Otilia Lorenzo Victoria, RN RN vg1 Corrections: (The following items were deleted from the chart) 09:57 09:57 PSHx: Cholecystectomy; hb hb
--- NOTE | 2022-09-24 12:10 | ER ---
Nurse's Notes [facility] Name: Tamy Martinez Age: 62 yrs Sex: Female : 1960 Arrival Date: 09/24/2022 Time: 09:43 Bed 7 Private MD: Diagnosis: Influenza due to identified novel influenza A virus-B Presentation: 09/24 09:55 Chief complaint: Bilateral ear pain, sore throat, dizziness, body aches, and fatigue hb since this morning. Coronavirus screen: Client presents with at least one sign or symptom that may indicate coronavirus-19. Provider contacted for isolation considerations. Ebola Screen: No symptoms or risks identified at this time. Initial Sepsis Screen: Does the patient meet any 2 criteria? No. Patient's initial sepsis screen is negative. Does the patient have a suspected source of infection? No. Patient's initial sepsis screen is negative. Risk Assessment: Do you want to hurt yourself or someone else? Patient reports no desire to harm self or others. Onset of symptoms was September 24, 2022. 09:55 Method Of Arrival: Ambulatory hb 09:58 Acuity: HODAN 3 hb Historical: - Allergies: 09:57 Iodinated Contrast Media - IV Dye; hb - PMHx: 09:57 Diabetes - IDDM; Hypertension; Myocardial infarction; Rheumatoid Arthritis; hb - PSHx: 09:57 section; Cholecystectomy; lap band; hb - Immunization history:: Adult Immunizations up to date. - Social history:: Smoking status: Patient denies any tobacco usage or history of. Screenin:51 [facility] ED Fall Risk Assessment (Adult) History of falling in the last 3 months, ph including since admission No falls in past 3 months (0 pts) Confusion or Disorientation No (0 pts) Intoxicated or Sedated No (0 pts) Impaired Gait No (0 pts) Mobility Assist Device Used No (0 pt) Altered Elimination No (0 pt) Score/Fall Risk Level 0 - 2 = Low Risk. Abuse screen: Denies threats or abuse. Denies injuries from another. Nutritional screening: No deficits noted. Tuberculosis screening: No symptoms or risk factors identified. Assessment: 10:30 General: Appears in no apparent distress. comfortable, Behavior is calm, cooperative, ph appropriate for age, Reports fatigue for 12-24 hours. Pain: Complains of pain in body aches. Pain: Complains of pain in right posterior aspect of neck and left posterior aspect of neck. Neuro: Level of Consciousness is awake, alert, obeys commands, Oriented to person, place, time, situation. Cardiovascular: Capillary refill < 3 seconds in bilateral fingers Patient's skin is warm and dry. Respiratory: Airway is patent Respiratory effort is even, unlabored, Respiratory pattern is regular, symmetrical. GI: Abdomen is non-distended, Reports lower abdominal pain, nausea, Patient currently denies diarrhea, vomiting. : No signs and/or symptoms were reported regarding the genitourinary system. EENT: Reports pain in left ear and right ear. Derm: Skin is pink, warm \T\ dry. Vital Signs: 09:55 BP 183 / 73; Pulse 76; Resp 16; Temp 98.3(O); Pulse Ox 99% on R/A; hb 12:03 BP 168 / 78; Pulse 74; Resp 18; Pulse Ox 98% on R/A; ph ED Course: 09:45 Patient arrived in ED. ts1 09:51 Chhaya Collado F[facility]-C [facility]. kb 09:51 Ildefonso Melgar MD is Attending Physician. kb 09:57 Arm band placed on. hb 09:59 Triage completed. hb 10:06 Anna Marie Milton, RN is Primary Nurse. ph 10:08 Patient has correct armband on for positive identification. Placed in gown. Bed in low mm9 position. Call light in reach. Side rails up X 1. Warm blanket given. Pillow given. Pulse ox on. NIBP on. 10:09 EKG done, by ED staff, reviewed by Chhaya ZHONG. mm9 10:38 Initial lab(s) drawn, by me, sent to lab. COVID swab sent to lab. Flu and/or RSV swab mm9 sent to lab. 10:39 SARS-COV-2 RT PCR Sent. mm9 10:39 Flu Sent. mm9 10:39 Troponin High Sensitivity Sent. mm9 10:39 CBC with Diff Sent. mm9 10:39 CMP Sent. mm9 10:39 Lipase Sent. mm9 10:42 CT Stone Protocol In Process Unspecified. EDMS 11:51 Lab(s) recollected, by me, sent to lab. Inserted saline lock: 22 gauge in left ph antecubital area, using aseptic technique. Blood collected. 13:26 No provider procedures requiring assistance completed. IV discontinued, intact, ph bleeding controlled, No redness/swelling at site. Pressure dressing applied. Administered Medications: 11:51 Drug: NS 0.9% IV 1000 ml Route: IV; Rate: 1 bolus; Site: left antecubital; ph 12:30 Follow up: Response: No adverse reaction; IV Status: Completed infusion ph 13:20 Drug: Fluconazole PO 100 mg Route: PO; ph 13:22 Follow up: Response: No adverse reaction; Medication administered at discharge. ph Medication: 11:52 VIS not applicable for this client. ph Outcome: 12:09 Discharge ordered by . kb 13:26 Patient left the ED. ph 13:26 Discharged to home ambulatory. ph 13:26 Condition: good 13:26 Discharge instructions given to patient, Instructed on discharge instructions, follow up and referral plans. medication usage, Demonstrated understanding of instructions, follow-up care, medications, Prescriptions given X 1. Signatures: Dispatcher [employer] EDMS Chhaya Collado, ZOOLOGY TECHNICAL OFFICER-C ZOOLOGY TECHNICAL OFFICER-Anna Marie Gotti, RN RN Xuan Jeong RN RN Mary Ramsey mm9 Michaela Holt PAS PAS ts1 Corrections: (The following items were deleted from the chart) 09:57 09:57 PSHx: Cholecystectomy; hb hb 09:59 09:55 Chief complaint: Bilateral ear pain, sore throat, dizziness, body aches, and hb fatigue since this morning. hb
[2022-09-24] MEDS ORDERED: FLUCONAZOLE 100 MG TAB ONE (13:22)
[2022-09-24 13:40] VITALS: TEMP 98.3
[2022-09-24 13:41] VITALS: BP 168/78; O2SAT 98
--- NOTE | 2022-09-26 11:49 | EKG ---
Test Date: 2022-09-24 Test Time: 10:23:52 [employer] Pourer: TL MEASUREMENT RESULTS: Intervals: Rate: 71 LA: 150 QRSD: 92 QT: 406 QTc: 441 [place]: P: 61 LA: 150 QRS: 13 T: 61 INTERPRETIVE STATEMENTS: Normal sinus rhythm Normal ECG Compared to ECG 02/05/2022 13:08:08 Myocardial infarct finding no longer present Electronically Signed On 09-26-22 11:45:38 CDT by Dany Mcdonald
== END 2022-09-24 13:26 | disposition home or self-care (01) ==
LOC: ER 09:43
DX: J10.1 Influenza due to other identified influenza virus with other respiratory manifestations (principal); R10.30 Lower abdominal pain, unspecified; E11.9 Type 2 diabetes mellitus without complications; I10 Essential (primary) hypertension; Z20.822 Contact with and (suspected) exposure to COVID-19; Z91.041 Radiographic dye allergy status
CPT/HCPCS: 93005; 85025; 36415; 84484; 83690; 80053; 87635; 87804 ×2; 76377; 74176; 96360; 99285; J7030

== ENCOUNTER → 2023-03-10 | Emergency (ER) | payer BC, OTHER ==
[~2023-03-10] MED LIST: AMOXICILLIN TRIHYDR 250 MG CAP ONE; predniSONE 20 MG TAB ONE
[2023-03-10 13:32] LABS: Specific Gravity 1.028 (1.005-1.030); Urine Bacteria <20 /HPF (<20); Urine Bilirubin NEGATIVE (Negative); Urine Blood Negative (Negative); Urine Clarity Clear (Clear); Urine Color Colorless (Yellow); Urine Glucose 4+ (Over) (Negative); Urine Protein NEGATIVE (Negative); Urine RBC <5 /HPF (None Seen); Urine Urobilinogen Normal (Normal)
--- NOTE | 2023-03-10 14:43 | RAD REPORT ---
EXAM DESCRIPTION: RADChest Single View03/10/2023 2:25 pm CLINICAL HISTORY: cough COMPARISON: Chest Single View dated 02/05/2022; Chest Single View dated 12/30/2021; Chest Single Vie w dated 10/15/2021; Chest Single View dated 07/15/2021 TECHNIQUE: Portable AP view of the chest. FINDINGS: Streaky parahilar opacities and bronchial wall thickening. No focal consolidation. No pne umothorax or effusion. The cardiomediastinal contours are unremarkable. IMPRESSION: Findings suggestive of reactive airway changes or viral infection without evidence of fo bharat pneumonia.
[2023-03-10 15:04] LABS: SARS-COV-2 RT PCR POSITIVE (NEGATIVE)
--- NOTE | 2023-03-10 15:15 | EDPHYS ---
Physician Documentation [facility] Name: Tamy Martinez Age: 62 yrs Sex: Female : 1960 Arrival Date: 03/10/2023 Time: 11:30 Bed 20 Private MD: ED Physician Telly Parada HPI: 03/10 13:21 This 62 yrs old Female presents to ER via Ambulatory with complaints of General kdr Weakness, Cough. 13:21 Patient complains of cough, congestion, sore throat, headache, right ear pain, kdr dizziness and overall generalized weakness along with nausea and diarrhea. This is been going on for about a week with some shortness of breath the last few days. Patient is otherwise in her usual state of health and has not acute appearing in the initial presentation to the ED. Onset: The symptoms/episode began/occurred gradually, 2 week(s) ago. Severity of symptoms: At their worst the symptoms were mild just prior to arrival, in the emergency department the symptoms are unchanged. The patient has not experienced similar symptoms in the past. The patient has not recently seen a physician. Historical: - Allergies: 11:43 Iodinated Contrast Media - IV Dye; hb - PMHx: 11:43 Diabetes - IDDM; Hypertension; Myocardial infarction; Rheumatoid Arthritis; hb - PSHx: 11:43 section; Cholecystectomy; lap band; hb - Immunization history:: Client reports having NOT received the Covid vaccine. Flu vaccine is not up to date. - Social history:: Smoking status: Patient denies any tobacco usage or history of. ROS: 13:21 Constitutional: Negative for fever, chills, and weight loss, Eyes: Negative for injury, kdr pain, redness, and discharge, Neck: Negative for injury, pain, and swelling, Cardiovascular: Negative for chest pain, palpitations, and edema, : Negative for injury, bleeding, discharge, and swelling, MS/Extremity: Negative for injury and deformity, Skin: Negative for injury, rash, and discoloration, Neuro: Negative for headache, weakness, numbness, tingling, and seizure activity. Psych: Negative for depression, anxiety, suicide ideation, homicidal ideation, and hallucinations, Allergy/Immunology: Negative for hives, rash, and allergies, Endocrine: Negative for neck swelling, polydipsia, polyuria, polyphagia, and marked weight changes, Hematologic/Lymphatic: Negative for swollen nodes, abnormal bleeding, and unusual bruising, 13:21 ENT: Positive for sinus congestion, sore throat, 13:21 Respiratory: Positive for cough, with no reported sputum, shortness of breath, on exertion. Exam: 13:21 Constitutional: This is a well developed, well nourished patient who is awake, alert, kdr and in no acute distress. Head/Face: Normocephalic, atraumatic. Eyes: Pupils equal round and reactive to light, extra-ocular motions intact. Lids and lashes normal. Conjunctiva and sclera are non-icteric and not injected. Cornea within normal limits. Periorbital areas with no swelling, redness, or edema. Neck: Trachea midline, no thyromegaly or masses palpated, and no cervical lymphadenopathy. Supple, full range of motion without nuchal rigidity, or vertebral point tenderness. No Meningismus. Chest/axilla: Normal chest wall appearance and motion. Nontender with no deformity. No lesions are appreciated. Cardiovascular: Regular rate and rhythm with a normal S1 and S2. No gallops, murmurs, or rubs. Normal PMI, no JVD. No pulse deficits. Respiratory: Lungs have equal breath sounds bilaterally, clear to auscultation and percussion. No rales, rhonchi or wheezes noted. No increased work of breathing, no retractions or nasal flaring. Abdomen/GI: Soft, non-tender, with normal bowel sounds. No distension or tympany. No guarding or rebound. No evidence of tenderness throughout. Back: No spinal tenderness. No costovertebral tenderness. Full range of motion. Skin: Warm, dry with normal turgor. Normal color with no rashes, no lesions, and no evidence of cellulitis. MS/ Extremity: Pulses equal, no cyanosis. Neurovascular intact. Full, normal range of motion. Neuro: Awake and alert, GCS 15, oriented to person, place, time, and situation. Cranial nerves II-XII grossly intact. Motor strength 5/5 in all extremities. Sensory grossly intact. Cerebellar exam normal. Normal gait. Psych: Awake, alert, with orientation to person, place and time. Behavior, mood, and affect are within normal limits. Vital Signs: 11:41 BP 156 / 67; Pulse 77; Resp 18; Temp 98(O); Pulse Ox 100% on R/A; Weight 97.52 kg; hb Height 5 ft. 1 in. ; Pain 8/10; 15:38 BP 159 / 84; Pulse 80; Resp 16; Pulse Ox 99% on R/A; db 11:41 Body Mass Index 40.62 (97.52 kg, 154.94 cm) hb 11:41 Pain Scale: Adult hb MDM: 13:21 Data reviewed: vital signs, nurses notes, lab test result(s), radiologic studies. kdr 15:14 Patient medically screened. kdr 03/10 13:33 Order name: Urinalysis w/ reflexes EDMS 03/10 14:12 Order name: Group A Streptococcus Rapid Sc EDMS 03/10 14:51 Order name: Glucose, Ancillary Testing; Complete Time: 14:59 EDMS 03/10 15:04 Order name: COVID-19/FLU A+B/RSV EDMS 03/10 14:44 Order name: RAD; Complete Time: 14:59 EDMS 03/10 14:13 Order name: FSBS; Complete Time: 14:39 kdr Administered Medications: 15:30 Drug: Amoxicillin PO 500 mg PO once Route: PO; db 15:44 Follow up: Response: No adverse reaction db 15:30 Drug: predniSONE PO 60 mg PO once Route: PO; db 15:45 Follow up: Response: No adverse reaction db Point of Care Testing: Blood Glucose: 14:39 Blood Glucose: 236 mg/dL; db Ranges: Critical Glucose Levels:Adult <50 mg/dl or >400 mg/dl <40 mg/dl or >180 mg/dl Disposition Summary: 03/10/23 15:14 Discharge Ordered Notes: Location: Home kdr Problem: new kdr Symptoms: have improved kdr Condition: Stable kdr Diagnosis - SARS-associated coronavirus as the cause of diseases classified elsewhere kdr - Streptococcal pharyngitis kdr Followup: kdr - With: Private Physician - When: 2 - 3 days - Reason: If symptoms return, Further diagnostic work-up, Recheck today's complaints, Continuance of care, Re-evaluation by your physician Discharge Instructions: - Discharge Summary Sheet kdr - Pharyngitis kdr - Rapid Strep Test kdr - Strep Throat, Adult kdr - Upper Respiratory Infection, Adult kdr - Form - Excuse from Work, School, or Physical Activity kdr - COVID-19 kdr - How to Protect Yourself and Others - [facility] (05/07/2021) kdr - 10 Things You Can Do to Manage Your COVID-19 Symptoms at Home - [facility] (09/25/2020) kdr - COVID-19: Quarantine and Isolation - [facility] (06/09/2021) kdr Forms: - Medication Reconciliation Form kdr - Thank You Letter kdr - Antibiotic Education kdr - Prescription Opioid Use kdr - Patient Portal Instructions kdr - Leadership Thank You Letter kdr - Work release form db Prescriptions: - albuterol sulfate 90 mcg/actuation Inhalation HFA Aerosol Inhaler - inhale 2 inhalation INHALATION route every 4 to 6 hours as needed for kdr bronchospasm; administer via ventilator; 1 Unspecified; Refills: 0, Product Selection Permitted - Amoxicillin 500 mg Oral Capsule - take 1 capsule ORAL route every 8 hours for 10 days; 30 tablet; Refills: 0, kdr Product Selection Permitted - Tramadol 50 mg Oral Tablet - take 1 tablet ORAL route every 8 hours as needed; 12 tablet; Refills: 0, kdr Product Selection Permitted - Medrol (Zan) 4 mg Oral Tablets, Dose Pack - take 1 tablet ORAL route as directed - follow package instructions; 1 packet; kdr Refills: 0, Product Selection Permitted Signatures: Dispatcher [employer] Telly Barone MD MD kdr Xuan Jeong, RN RN Angie Gustafson, RN RN db
--- NOTE | 2023-03-10 15:15 | ER ---
Nurse's Notes [facility] Name: Tamy Martinez Age: 62 yrs Sex: Female : 1960 Arrival Date: 03/10/2023 Time: 11:30 Bed 20 Private MD: Diagnosis: SARS-associated coronavirus as the cause of diseases classified elsewhere;Streptococcal pharyngitis Presentation: 03/10 11:41 Chief complaint: Cough, congestion, sore throat, headache, right ear pain, dizziness, hb generalized weakness, N/D, and SOB x 1 week. Coronavirus screen: Client presents with at least one sign or symptom that may indicate coronavirus-19. Provider contacted for isolation considerations. Ebola Screen: No symptoms or risks identified at this time. Initial Sepsis Screen: Does the patient meet any 2 criteria? No. Patient's initial sepsis screen is negative. Does the patient have a suspected source of infection? No. Patient's initial sepsis screen is negative. Risk Assessment: Do you want to hurt yourself or someone else? Patient reports no desire to harm self or others. Onset of symptoms was March 03, 2023. 11:41 Method Of Arrival: Ambulatory hb 11:41 Acuity: HODAN 3 hb Historical: - Allergies: 11:43 Iodinated Contrast Media - IV Dye; hb - PMHx: 11:43 Diabetes - IDDM; Hypertension; Myocardial infarction; Rheumatoid Arthritis; hb - PSHx: 11:43 section; Cholecystectomy; lap band; hb - Immunization history:: Client reports having NOT received the Covid vaccine. Flu vaccine is not up to date. - Social history:: Smoking status: Patient denies any tobacco usage or history of. Screenin:38 [facility] ED Fall Risk Assessment (Adult) History of falling in the last 3 months, db including since admission No falls in past 3 months (0 pts) Confusion or Disorientation No (0 pts) Intoxicated or Sedated No (0 pts) Impaired Gait No (0 pts) Mobility Assist Device Used No (0 pt) Altered Elimination No (0 pt) Score/Fall Risk Level 0 - 2 = Low Risk Oriented to surroundings, Maintained a safe environment. Abuse screen: Denies threats or abuse. Denies injuries from another. Nutritional screening: No deficits noted. Tuberculosis screening: No symptoms or risk factors identified. Assessment: 12:30 Reassessment: Patient appears in no apparent distress at this time. Patient and/or db family updated on plan of care and expected duration. Pain level reassessed. Patient is alert, oriented x 3, equal unlabored respirations, skin warm/dry/pink. Respiratory: Airway is patent Respiratory effort is even, unlabored, Respiratory pattern is regular, symmetrical. 13:30 Reassessment: Patient appears in no apparent distress at this time. Patient and/or db family updated on plan of care and expected duration. Pain level reassessed. Patient is alert, oriented x 3, equal unlabored respirations, skin warm/dry/pink. 14:30 Reassessment: Patient appears in no apparent distress at this time. Patient and/or db family updated on plan of care and expected duration. Pain level reassessed. Patient is alert, oriented x 3, equal unlabored respirations, skin warm/dry/pink. 15:18 Reassessment: Patient appears in no apparent distress at this time. Patient and/or db family updated on plan of care and expected duration. Pain level reassessed. Patient is alert, oriented x 3, equal unlabored respirations, skin warm/dry/pink. General: Appears in no apparent distress. comfortable, Behavior is calm, cooperative. Pain: Complains of pain in BODY ACHES. Neuro: Level of Consciousness is awake, alert, obeys commands, Oriented to person, place, time. Vital Signs: 11:41 BP 156 / 67; Pulse 77; Resp 18; Temp 98(O); Pulse Ox 100% on R/A; Weight 97.52 kg; hb Height 5 ft. 1 in. ; Pain 8/10; 15:38 BP 159 / 84; Pulse 80; Resp 16; Pulse Ox 99% on R/A; db 11:41 Body Mass Index 40.62 (97.52 kg, 154.94 cm) hb 11:41 Pain Scale: Adult hb ED Course: 11:30 Patient arrived in ED. ts1 11:37 Telly Parada MD is Attending Physician. kdr 11:43 Triage completed. hb 11:43 Arm band placed on. hb 12:00 Patient has correct armband on for positive identification. Bed in low position. Call db light in reach. Side rails up X 1. 13:02 Angie Dang, MAY is Primary Nurse. db 15:38 Provided Education on: DISCHARGE. Pulse ox on. NIBP on. Warm blanket given. db 15:38 No provider procedures requiring assistance completed. Patient did not have IV access db during this emergency room visit. Administered Medications: 15:30 Drug: Amoxicillin PO 500 mg PO once Route: PO; db 15:44 Follow up: Response: No adverse reaction db 15:30 Drug: predniSONE PO 60 mg PO once Route: PO; db 15:45 Follow up: Response: No adverse reaction db Medication: 15:38 VIS not applicable for this client. db Point of Care Testing: Blood Glucose: 14:39 Blood Glucose: 236 mg/dL; db Ranges: Outcome: 15:14 Discharge ordered by MD. kdr 15:44 Discharged to home ambulatory, db 15:44 Condition: stable 15:44 Discharge instructions given to patient, Instructed on discharge instructions, follow up and referral plans. Prescriptions given X 4, 15:45 Patient left the ED. db Signatures: Telly Parada MD MD [facility] Xuan Jeong RN RN Angie Dang RN RN db Michaela Holt PAS PAS ts1
[2023-03-10 16:34] VITALS: BP 159/84; TEMP 98; O2SAT 99
--- NOTE | 2023-03-14 12:58 | PN ---
Date of Progress Note: 03/14/2023 Subjective: Patient was admitted with acute kidney injury secondary to prerenal, recovered, resolved . Patient feeling better. Objective: Vital Signs: Blood pressure 129/55, pulse of 68, afebrile. Chest: Clear to auscultation. Heart: S1, S2. Regular. Abdomen: Soft, nontender. Extremities: No edema. Neurologic: Alert. No focality. Laboratory Data: Hemoglobin 7.9, sodium 136, potassium 3.9, bicarb 29, BUN 16, creatinine 0.8, calci um 8.2. Current Medications: The patient on, it includes: 1.Amiodarone. 2.Eliquis. 3.Ensure. 4.Hydrocodone. Assessment And Plan: 1.Acute kidney injury secondary to prerenal, recovered, resolved. 2.Hyponatremia secondary to depletional, resolved. Normal volume. Keep holding IV fluid. 3.Hypokalemia, status post supplement. 4.Small bowel obstruction, stable. 5.Hydronephrosis, repeated ultrasound did not show. Kidney function improved. I do not see any nee d for any further workup. BENJAMIN Voice ID: [id number] Report ID: [id number]
== END ==
LOC: ER 11:30
DX: U07.1 COVID-19 (principal); J02.0 Streptococcal pharyngitis; E11.9 Type 2 diabetes mellitus without complications; I10 Essential (primary) hypertension; Z91.041 Radiographic dye allergy status; Z28.310 Unvaccinated for COVID-19
CPT/HCPCS: 81001; 82947; 87081; 0241U; 71045; 99284; J7512

== ENCOUNTER → 2023-05-24 | Emergency (ER) | payer BC, OTHER ==
[2023-05-24 15:50] LABS: Absolute Eosinophils 0.2 K/uL (0-0.5); Absolute Lymphocytes (CBC) 1.7 K/uL (0.7-4.9); Absolute Monocytes 0.6 K/uL (0.1-1.3); Basophils % 0.9 % (0-1.3); Eosinophils % 2.9 % (0-4.4); Hematocrit 40.1 % (36.0-45.0); Hemoglobin 13.4 g/dL (12.0-15.0); Lymphocytes % 30.4 % (15.3-44.8); MCH 28.8 pg (27.0-35.0); MCHC 33.3 g/dL (32.0-36.0); MCV 86.3 fL (80-100); MPV 7.4 fL (7.6-11.3); Monocytes % 10.5 % (3.3-12.3); Neutrophils % 55.3 % (41.7-73.7); Nucleated Red Blood Cells % 0.2 % (0-0); Platelets 237 thou/uL (152-406); RBC Red Blood Cell Count 4.64 M/uL (3.86-4.86); Red Cell Distribution Width 16.9 % (12.1-15.2)
--- NOTE | 2023-05-24 16:00 | RAD REPORT ---
EXAM DESCRIPTION: [facility] 3:09 pm CLINICAL HISTORY: CHEST PAIN COMPARISON: Chest Single View dated 03/10/2023; Chest Single View dated 02/05/2022; Chest Single Vie w dated 12/30/2021; Chest Single View dated 10/15/2021 TECHNIQUE: Portable AP view of the chest. FINDINGS: The lungs are clear. No pneumothorax or effusion. The cardiomediastinal contours are unre markable. IMPRESSION: No acute cardiopulmonary process.
[2023-05-24 16:33] LABS: Anion Gap 7.5 mEq/L (5.0-15.0); Troponin High Sensitivity 9.8 pg/mL (<58.9)
[2023-05-24 16:39] LABS: Potassium 4.5 mEq/L (3.5-5.1)
--- NOTE | 2023-05-24 16:45 | ER ---
Nurse's Notes [facility] Name: Tamy Martinez Age: 63 yrs Sex: Female : 1960 Arrival Date: 05/24/2023 Time: 14:04 Bed 9 Private MD: Diagnosis: Chest pain, unspecified Presentation: 05/23 14:16 Chief complaint: Patient states: L sided neck, L arm, and L sided CP started at 3 AM. R ll1 arm and face feels tingly. Coronavirus screen: Client denies travel out of the [place] in the last 14 days. At this time, the client does not indicate any symptoms associated with coronavirus-19. Ebola Screen: Patient denies travel to an Ebola-affected area in the 21 days before illness onset. Acute neurological deficit: none identified. Initial Sepsis Screen: Does the patient meet any 2 criteria? No. Patient's initial sepsis screen is negative. Does the patient have a suspected source of infection? No. Patient's initial sepsis screen is negative. Risk Assessment: Do you want to hurt yourself or someone else? Patient reports no desire to harm self or others. Onset of symptoms was May 24, 2023. 14:16 Acuity: HODAN 2 ll1 14:16 Method Of Arrival: Ambulatory ll1 Triage Assessment: 14:18 General: Appears uncomfortable, Behavior is calm, cooperative, appropriate for age. ll1 Pain: Complains of pain in L chest/L neck Pain currently is 9 out of 10 on a pain scale. Quality of pain is described as aching. EENT: Reports. Cardiovascular: Reports chest pain, tingling to R hand and (B) face. Historical: - Allergies: 14:14 Iodinated Contrast Media - IV Dye; ll1 - PMHx: 14:14 Diabetes - IDDM; Hypertension; Myocardial infarction; Rheumatoid Arthritis; ll1 - PSHx: 14:14 section; Cholecystectomy; lap band; B knee replacements (lap band); ll1 - Immunization history:: Adult Immunizations not immunized. - Social history:: Smoking status: Patient denies any tobacco usage or history of. Screenin:48 [facility] ED Fall Risk Assessment (Adult) History of falling in the last 3 months, ko1 including since admission No falls in past 3 months (0 pts) Confusion or Disorientation No (0 pts) Intoxicated or Sedated No (0 pts) Impaired Gait No (0 pts) Mobility Assist Device Used No (0 pt) Altered Elimination No (0 pt) Score/Fall Risk Level 0 - 2 = Low Risk Oriented to surroundings, Maintained a safe environment, Educated pt \T\ family on fall prevention, incl call for assistance when getting out of bed, Assessed \T\ reinforced patient's understanding of fall precautions, Provided non-skid footwear, Hourly rounding (assess needs \T\ fall precautionary measures) done, Used ambulatory aids as needed (educated on \T\ assisted with), Used gait belt as appropriate. Abuse screen: Denies threats or abuse. Denies injuries from another. Nutritional screening: No deficits noted. Tuberculosis screening: No symptoms or risk factors identified. Assessment: 16:48 General: Appears in no apparent distress. Behavior is calm, cooperative, appropriate ko1 for age. Pain: Denies pain. Neuro: Level of Consciousness is awake, alert, obeys commands. Cardiovascular: Reports chest pain. Respiratory: No deficits noted. GI: No deficits noted. : No deficits noted. EENT: No deficits noted. Derm: No deficits noted. Musculoskeletal: Reports pain in neck and chest. Vital Signs: 14:16 BP 161 / 67; Pulse 65; Resp 17; Temp 97.4; Pulse Ox 97% on R/A; Weight 106.59 kg; ll1 Height 5 ft. 0 in. ; Pain 9/10; 16:48 BP 158 / 62; Pulse 60; Resp 15; Temp 98; Pulse Ox 98% ; ko1 14:16 Body Mass Index 45.89 (106.59 kg, 152.4 cm) ll1 14:16 Pain Scale: Adult ll1 ED Course: 14:06 Patient arrived in ED. rg4 14:10 Yonatan Sargent MD is Attending Physician. ec2 14:14 Arm band placed on. ll1 14:17 Triage completed. ll1 14:25 EKG done, by ED staff, reviewed by Yonatan Sargent MD. ll1 15:11 XRAY Chest (1 view) In Process Unspecified. EDMS 15:44 Initial lab(s) drawn, by ar, sent to lab. Inserted saline lock: 22 gauge in right aw1 antecubital area, using aseptic technique. 15:44 Basic Metabolic Panel Sent. aw1 15:44 CBC with Diff Sent. aw1 15:44 NT PRO-BNP Sent. aw1 15:44 Troponin HS Sent. aw1 16:47 Carlyn Ramirez, RN is Primary Nurse. ko1 16:48 Patient has correct armband on for positive identification. Allergy band placed. Bed in ko1 low position. Call light in reach. Side rails up X 1. Provided Education on: na. Client placed on continuous cardiac and pulse oximetry monitoring. NIBP monitoring applied. cardiac monitor on. Door closed. Noise minimized. Lights dimmed. Warm blanket given. 16:48 No provider procedures requiring assistance completed. IV discontinued, intact, ko1 bleeding controlled, No redness/swelling at site. Pressure dressing applied. Administered Medications: No medications were administered Medication: 16:48 VIS not applicable for this client. ko1 Outcome: 16:44 Discharge ordered by . ec2 17:01 Discharged to home ambulatory, ko1 17:01 Condition: stable 17:01 Discharge instructions given to patient, Instructed on discharge instructions, follow up and referral plans. Demonstrated understanding of instructions, follow-up care, 17:01 Patient left the ED. ko1 Signatures: Dispatcher [employer] Emily Mattson rg4 Shivam Tao RN RN ll1 Carlyn Ramirez, RN RN ko1 Alicia Rangel aw1 Yonatan Sargent MD MD ec2
--- NOTE | 2023-05-24 16:45 | EDPHYS ---
Physician Documentation [facility] Name: Tamy Martinez Age: 63 yrs Sex: Female : 1960 Arrival Date: 05/24/2023 Time: 14:04 Bed 9 Private MD: ED Physician Yonatan Sargent HPI: 05/23 14:26 This 63 yrs old Female presents to ER via Ambulatory with complaints of Neck Pain, ec2 <24hrs Old, Chest Pain. 14:26 Patient arrives today for evaluation of chest and neck pain. Patient reports that she ec2 been having neck pain since approximately 12 hours ago. Patient reports the pain is left-sided. Reports pain is worse with movements. Patient reports some chest pain as well. Reports history of cardiac disease, hypertension, hyperlipidemia.. Historical: - Allergies: 14:14 Iodinated Contrast Media - IV Dye; ll1 - PMHx: 14:14 Diabetes - IDDM; Hypertension; Myocardial infarction; Rheumatoid Arthritis; ll1 - PSHx: 14:14 section; Cholecystectomy; lap band; B knee replacements (lap band); ll1 - Immunization history:: Adult Immunizations not immunized. - Social history:: Smoking status: Patient denies any tobacco usage or history of. ROS: 14:26 Constitutional: as per hpi ec2 Exam: 14:26 Constitutional: GEN: NAD Head: atraumatic Eyes: EOMI Ears: External ears are ec2 normal. CV: regular rate LUNGS: no respiratory distress ABD: non-distended SKIN: no evidence of rashes MSK: no evidence of trauma, left neck with TTP, no deformity, no crepitus NEURO: moves all extremities equally, cranial nerves II through XII intact, strength intact all 4 extremities Vital Signs: 14:16 BP 161 / 67; Pulse 65; Resp 17; Temp 97.4; Pulse Ox 97% on R/A; Weight 106.59 kg; ll1 Height 5 ft. 0 in. ; Pain 9/10; 16:48 BP 158 / 62; Pulse 60; Resp 15; Temp 98; Pulse Ox 98% ; ko1 14:16 Body Mass Index 45.89 (106.59 kg, 152.4 cm) ll1 14:16 Pain Scale: Adult ll1 MDM: 14:26 Patient medically screened. ec2 14:26 Data reviewed: vital signs. ED course: Patient arrives today for evaluation of chest ec2 and neck pain. Examination remarkable for well-appearing nontoxic individual is otherwise in no acute distress. EKG obtained, independently reviewed and interpreted by me, shows normal sinus rhythm, rate of 60, no acute ST segment elevations, nonconcerning intervals.. 14:29 ED course: Will obtain lab work, chest x-ray. Will evaluate for ACS, doubt PE or ec2 dissection. Doubt stroke given patient's intact neurologic status.. 16:07 ED course: CBC reassuring. Chest x-ray shows no acute intrathoracic process. . ec2 16:42 ED course: Metabolic profile shows renal dysfunction with a creatinine of 1.61 and a ec2 GFR of 36. Troponin within normal ranges. BNP minimally elevated. Given duration of symptoms, will defer repeat lab testing. Will discharge home. Return precautions given. . 03 14:23 Order name: Basic Metabolic Panel; Complete Time: 16:42 ec2 05/23 14:23 Order name: CBC with Diff; Complete Time: 16:06 ec2 05/23 14:23 Order name: NT PRO-BNP; Complete Time: 16:42 ec2 05/23 14:23 Order name: Troponin HS; Complete Time: 16:42 ec2 05/23 14:23 Order name: XRAY Chest (1 view); Complete Time: 16:06 ec2 05/23 14:23 Order name: EKG; Complete Time: 14:23 ec2 05/23 14:23 Order name: EKG - Nurse/Tech; Complete Time: 14:25 ec2 05/23 14:23 Order name: IV Saline Lock; Complete Time: 15:44 ec2 05/23 14:23 Order name: Labs collected and sent; Complete Time: 15:44 ec2 Administered Medications: No medications were administered Disposition Summary: 05/24/23 16:44 Discharge Ordered Notes: Location: Home ec2 Condition: Stable ec2 Diagnosis - Chest pain, unspecified ec2 Followup: ec2 - With: Private Physician - When: - Reason: Re-evaluation by your physician Discharge Instructions: - Discharge Summary Sheet ec2 - Nonspecific Chest Pain, Adult, [id number] ec2 Forms: - Medication Reconciliation Form ec2 - Thank You Letter ec2 - Antibiotic Education ec2 - Prescription Opioid Use ec2 - Patient Portal Instructions ec2 - Leadership Thank You Letter ec2 Signatures: Dispatcher Shivam Schwarz RN RN ll1 Yonatan Sargent MD MD ec2
[2023-05-24 17:16] VITALS: BP 158/62; TEMP 98; O2SAT 98
== END ==
LOC: ER 14:04
DX: R07.9 Chest pain, unspecified (principal); M54.2 Cervicalgia; E11.8 Type 2 diabetes mellitus with unspecified complications; I10 Essential (primary) hypertension; I25.2 Old myocardial infarction; Z91.041 Radiographic dye allergy status
CPT/HCPCS: 36415; 71045; 80048; 83880; 84484; 85025; 93005

== ENCOUNTER 2024-02-20 11:52 | Emergency (ER) | payer BC, OTHER ==
--- NOTE | 2024-02-20 13:14 | RAD REPORT ---
EXAMINATION: ONE VIEW CHEST XR CLINICAL INDICATION: COUGH TECHNIQUE: Frontal chest projection is submitted. Examination is limited by patient positioning and t echnique. COMPARISON: 05/24/2023 FINDINGS: Patchy opacity is present left lung base likely representing pneumonia. The heart is upper limit of n ormal in size. No displaced fractures identified. IMPRESSION: Left lower lobe pneumonia.
[2024-02-20 13:17] LABS: Absolute Basophils 0.1 K/uL (0-0.5); Absolute Eosinophils 0.2 K/uL (0-0.5); Absolute Lymphocytes (CBC) 1.6 K/uL (0.7-4.9); Absolute Neutrophil 5.5 K/uL (1.8-8.0); Basophils % 0.7 % (0-1.3); Eosinophils % 2.1 % (0-4.4); Hematocrit 41.3 % (36.0-45.0); Hemoglobin 13.6 g/dL (12.0-15.0); Lymphocytes % 19.6 % (15.3-44.8); MCH 30.7 pg (27.0-35.0); MCV 92.9 fL (80-100); MPV 7.8 fL (7.6-11.3); Monocytes % 11.9 % (3.3-12.3); Neutrophils % 65.7 % (41.7-73.7); Platelets 254 thou/uL (152-406); RBC Red Blood Cell Count 4.45 M/uL (3.86-4.86); Red Cell Distribution Width 16.6 % (12.1-15.2)
[2024-02-20 13:18] LABS: PT Prothrombin Time 12.5 SECONDS (9.4-12.5); Protime INR 1.12
[2024-02-20 13:30] LABS: AST/SGOT 13 U/L (15-37); Albumin 3.1 g/dL (3.4-5.0); Albumin/Globulin Ratio 0.6 (1.1-1.8); Alkaline Phosphatase 94 U/L (45-117); Anion Gap 10.2 mEq/L (5.0-15.0); BUN Blood Urea Nitrogen 17 mg/dL (7-18); Bicarbonate 27 mEq/L (21-32); Bilirubin Direct 0.2 mg/dL (0-0.2); Bilirubin Indirect, Calculated 0.5 mg/dL (0.2-0.8); Bilirubin Total 0.7 mg/dL (0.2-1.0); Glomerular Filtration Rate 57 ml/min (=/>90); Glucose Level 166 mg/dL (74-106); Magnesium 2.1 mg/dL (1.6-2.4); NT PRO-BNP 1004 pg/mL (<125); Potassium 4.2 mEq/L (3.5-5.1); Protein, Total 8.1 g/dL (6.4-8.2); Sodium Level 137 mEq/L (136-145); Troponin High Sensitivity 14.5 pg/mL (<58.9)
[2024-02-20 13:33] LABS: ALT/SGPT < 14 U/L (13-56)
[2024-02-20] MEDS ORDERED: CEFEPIME 2 GM VIAL ONE (14:06)
[2024-02-20] MEDS ORDERED: NA CHLORIDE 0.9% 0 ML ONE (14:07)
[2024-02-20] MEDS ORDERED: NA CHLORIDE 0.9% 1,000 ML ONE (14:07)
[2024-02-20] MEDS ORDERED: Levofloxacin500mg IV 500 MG/100 ML BAG IV ONE (14:32)
--- NOTE | 2024-02-20 14:33 | ER ---
Nurse's Notes [facility] Name: Tamy Martinez Age: 63 yrs Sex: Female : 1960 Arrival Date: 02/20/2024 Time: 11:52 Bed 23 Private MD: Diagnosis: Pneumonia, cough, shortness of breath Presentation: 02/19 11:59 Chief complaint: Patient states: Cough, congestion, and head pressure onset 2 days ago. cm10 Pt states that the cough is productive. Coronavirus screen: Client denies travel out of the [place] in the last 14 days. Ebola Screen: Patient denies travel to an Ebola-affected area in the 21 days before illness onset. No symptoms or risks identified at this time. Initial Sepsis Screen: Does the patient meet any 2 criteria? No. Patient's initial sepsis screen is negative. Does the patient have a suspected source of infection? No. Patient's initial sepsis screen is negative. Risk Assessment: Do you want to hurt yourself or someone else? Patient reports no desire to harm self or others. Onset of symptoms was February 18, 2024. 11:59 Method Of Arrival: Ambulatory cm10 11:59 Acuity: HODAN 3 cm10 Triage Assessment: 12:00 General: Appears in no apparent distress. comfortable, Behavior is calm, cooperative. cm10 Neuro: No deficits noted. Level of Consciousness is awake, alert, obeys commands, Oriented to person, place, time, situation, Appropriate for age. Respiratory: Reports shortness of breath cough that is productive, Airway is patent Respiratory effort is even, unlabored, Respiratory pattern is regular, symmetrical, Breath sounds are clear bilaterally. Onset: The symptoms/episode began/occurred 2 days ago, the patient has mild shortness of breath. Historical: - Allergies: 12:00 Iodinated Contrast Media - IV Dye; cm10 12:00 SHELLFISH; cm10 - PMHx: 12:00 Diabetes - IDDM; Hypertension; Myocardial infarction; Rheumatoid Arthritis; cm10 - PSHx: 12:00 B knee replacements (nd); section; Cholecystectomy; lap band; cm10 - Immunization history:: Adult Immunizations up to date. - Infectious Disease History:: Denies. - Social history:: Smoking status: Patient denies any tobacco usage or history of. Screenin:39 [facility] ED Fall Risk Assessment (Adult) History of falling in the last 3 months, jl7 including since admission No falls in past 3 months (0 pts) Confusion or Disorientation No (0 pts) Intoxicated or Sedated No (0 pts) Impaired Gait No (0 pts) Mobility Assist Device Used No (0 pt) Altered Elimination No (0 pt) Score/Fall Risk Level 0 - 2 = Low Risk Oriented to surroundings, Maintained a safe environment. Abuse screen: Denies threats or abuse. Denies injuries from another. Nutritional screening: No deficits noted. Tuberculosis screening: No symptoms or risk factors identified. Assessment: 14:05 General: Appears in no apparent distress. uncomfortable, Behavior is calm, cooperative, jl7 appropriate for age. Pain: Complains of pain in achy. Neuro: No deficits noted. Cardiovascular: Patient's skin is warm and dry. Rhythm is regular. Respiratory: Airway is patent Respiratory effort is even, unlabored, Respiratory pattern is regular, symmetrical. Derm: Skin is pink, warm \T\ dry. 14:40 Reassessment: pt will be discharged once meds are completed. jl7 16:09 Reassessment: Patient appears in no apparent distress at this time. Patient and/or jb4 family updated on plan of care and expected duration. Pain level reassessed. Patient is alert, oriented x 3, equal unlabored respirations, skin warm/dry/pink. Pt report not understanding why she is being discharged, Physician notified, pt now verbalizes understanding of d/c and follow up instructions. Ambulated out of ED with steady gait. Vital Signs: 11:59 BP 116 / 64; Pulse 96; Resp 16; Temp 97.7(TE); Pulse Ox 96% on R/A; Weight 89.81 kg; cm10 Height 5 ft. 0 in. ; Pain 9/10; 14:39 BP 139 / 80; Pulse 65; Resp 15; Pulse Ox 100% ; jl7 11:59 Body Mass Index 38.67 (89.81 kg, 152.4 cm) cm10 11:59 Pain Scale: Adult cm10 ED Course: 11:54 Patient arrived in ED. mr 11:57 Ralph Salazar MD is Attending Physician. sp3 12:00 Triage completed. cm10 12:00 Arm band placed on right wrist. Patient placed in waiting room. cm10 13:07 XRAY Chest (1 view) In Process Unspecified. EDMS 13:12 Initial lab(s) drawn, by me, sent to lab. Missed attempt(s): 22 gauge in right bc6 antecubital area. 13:24 EKG done, by ED staff. tm3 14:10 Lakshmi Villeda, RN is Primary Nurse. jl7 14:30 Inserted saline lock: 22 gauge in left forearm, using aseptic technique. Flushed with jl7 10 mL NS. 14:39 Patient has correct armband on for positive identification. Placed in gown. Bed in low jl7 position. Call light in reach. Side rails up X 1. Provided Education on: use of call elkins. Client placed on continuous cardiac and pulse oximetry monitoring. NIBP monitoring applied. Warm blanket given. 16:09 No provider procedures requiring assistance completed. IV discontinued, intact, jb4 bleeding controlled, No redness/swelling at site. Pressure dressing applied. Administered Medications: 14:27 Not Given (Changed): cefepime2 grams IVPB at 200 ml/hr once over 30 mins; (mix in NS sp3 100 mL) 14:37 Drug: NS 0.9% IV 1000 ml IV at 1 bolus Per protocol; to be given as a bolus over 60 jl7 minutes Route: IV; Rate: 1 bolus; Site: left forearm; 16:13 Follow up: Response: No adverse reaction; IV Status: pt discharged.; IV Intake: 900ml jb4 14:37 Drug: levofloxacin IVPB 500 mg 100 ml IVPB once over 60 mins Volume: 100 ml; Route: jl7 IVPB; Infused Over: 60 mins; Site: left forearm; 15:37 Follow up: Response: No adverse reaction; IV Status: Completed infusion; IV Intake: jb4 100ml 15:15 Drug: Albuterol Inhalation 2.5 mg Inhalation once Route: Inhalation; jl7 16:12 Follow up: Response: No adverse reaction jb4 Medication: 14:39 VIS not applicable for this client. jl7 Intake: 15:37 IV: 100ml; Total: 100ml. jb4 16:13 IV: 900ml; Total: 1000ml. jb4 Outcome: 14:33 Discharge ordered by . sp3 16:09 Discharged to home ambulatory, jb4 16:09 Condition: stable 16:09 Discharge instructions given to patient, Instructed on discharge instructions, follow up and referral plans. medication usage, Demonstrated understanding of instructions, follow-up care, medications, Prescriptions given X 1, 16:15 Patient left the ED. jb4 Signatures: Dispatcher [employer] EDMS Rosio Esteban tm3 Tammie Berger, Reg Reg mr Hopkins Heriberto, RN RN jb4 Lakshmi Villeda RN RN jl7 Ralph Salazar MD MD sp3 Juliet Pete 6 Sharon Ramsey RN RN cm10
--- NOTE | 2024-02-20 14:33 | EDPHYS ---
Physician Documentation [facility] Name: Tamy Martinez Age: 63 yrs Sex: Female : 1960 Arrival Date: 02/20/2024 Time: 11:52 Bed 23 Private MD: ED Physician Ralph Salazar HPI: 02/19 14:29 This 63 yrs old Female presents to ER via Ambulatory with complaints of Cough, sp3 Breathing Difficulty. 14:29 63-year-old female with history of diabetes, hypertension, rheumatoid arthritis, prior sp3 ID now presents ED with chief complaint cough, congestion, subjective fever the last 3 days. She denies any chest pain, headache, abdominal pain, vomiting, diarrhea, syncope, near syncope, known sick contacts, travel history, or any other signs or symptoms on ROS at this time.. Historical: - Allergies: 12:00 Iodinated Contrast Media - IV Dye; cm10 12:00 SHELLFISH; cm10 - PMHx: 12:00 Diabetes - IDDM; Hypertension; Myocardial infarction; Rheumatoid Arthritis; cm10 - PSHx: 12:00 B knee replacements (nd); section; Cholecystectomy; lap band; cm10 - Immunization history:: Adult Immunizations up to date. - Infectious Disease History:: Denies. - Social history:: Smoking status: Patient denies any tobacco usage or history of. ROS: 14:31 Constitutional: Negative for fever, chills, and weight loss, Eyes: Negative for injury, sp3 pain, redness, and discharge, Neck: Negative for injury, pain, and swelling, Cardiovascular: Negative for chest pain, palpitations, and edema, Abdomen/GI: Negative for abdominal pain, nausea, vomiting, diarrhea, and constipation, Back: Negative for injury and pain, MS/Extremity: Negative for injury and deformity, Skin: Negative for injury, rash, and discoloration, Neuro: Negative for headache, weakness, numbness, tingling, and seizure, Psych: Negative for depression, anxiety, suicide ideation, homicidal ideation, and hallucinations, Allergy/Immunology: Negative for hives, rash, and allergies, Endocrine: Negative for neck swelling, polydipsia, polyuria, polyphagia, and marked weight changes, Hematologic/Lymphatic: Negative for swollen nodes, abnormal bleeding, and unusual bruising, 14:31 All other systems are negative, Exam: 14:31 Constitutional: This is a well developed, well nourished patient who is awake, alert, sp3 and in no acute distress. Head/Face: Normocephalic, atraumatic. Eyes: Pupils equal round and reactive to light, extra-ocular motions intact. Lids and lashes normal. Conjunctiva and sclera are non-icteric and not injected. Cornea within normal limits. Periorbital areas with no swelling, redness, or edema. ENT: Nares patent. No nasal discharge, no septal abnormalities noted. External auditory canals are clear. Oropharynx with no redness, swelling, or masses, exudates, or evidence of obstruction, uvula midline. Mucous membranes moist. Neck: Trachea midline, no thyromegaly or masses palpated, and no cervical lymphadenopathy. Supple, full range of motion without nuchal rigidity, or vertebral point tenderness. No Meningismus. Chest/axilla: Normal chest wall appearance and motion. Nontender with no deformity. No lesions are appreciated. Cardiovascular: Regular rate and rhythm with a normal S1 and S2. No gallops, murmurs, or rubs. Normal PMI, no JVD. No pulse deficits. Abdomen/GI: Soft, non-tender, with normal bowel sounds. No distension or tympany. No guarding or rebound. No evidence of tenderness throughout. Back: No spinal tenderness. No costovertebral tenderness. Full range of motion. Skin: Warm, dry with normal turgor. Normal color with no rashes, no lesions, and no evidence of cellulitis. 14:31 Respiratory: Active cough noted., Vital Signs: 11:59 BP 116 / 64; Pulse 96; Resp 16; Temp 97.7(TE); Pulse Ox 96% on R/A; Weight 89.81 kg; cm10 Height 5 ft. 0 in. ; Pain 9/10; 14:39 BP 139 / 80; Pulse 65; Resp 15; Pulse Ox 100% ; jl7 11:59 Body Mass Index 38.67 (89.81 kg, 152.4 cm) cm10 11:59 Pain Scale: Adult cm10 MDM: 12:03 Medical Screening Exam initiated sp3 14:31 Data reviewed: vital signs, nurses notes, lab test result(s), EKG, radiologic studies. sp3 ED course: 63-year-old female with PMH above now with cough, congestion and URI symptoms. Differential diagnosis includes URI, viral illness, influenza, COVID-19, pneumonia, among others. Workup has included EKG, labs and chest x-ray. Chest x-ray is positive for left lower lobe pneumonia which explains patient's symptoms. Will place on Levaquin IV and discharged home on Levaquin p.o. as remainder of blood work is normal and patient is in no acute distress with normal vital signs and room air pulse oxygenation 96% on room air.. 16:07 ED course: EKG demonstrates normal sinus rhythm at 63 bpm with normal intervals, normal sp3 QRS, normal axis, normal ST/T-segment's without evidence of acute ischemia.. 02/19 12:03 Order name: Basic Metabolic Panel; Complete Time: 13:58 sp3 02/19 12:03 Order name: CBC with Diff; Complete Time: 13:23 sp3 02/19 12:03 Order name: LFT's; Complete Time: 13:58 sp3 02/19 12:03 Order name: Magnesium; Complete Time: 13:58 sp3 02/19 12:03 Order name: NT PRO-BNP; Complete Time: 13:58 sp3 02/19 12:03 Order name: PT-INR; Complete Time: 13:23 sp3 02/19 12:03 Order name: Troponin HS; Complete Time: 13:58 sp3 02/19 12:03 Order name: XRAY Chest (1 view); Complete Time: 13:23 sp3 02/19 12:03 Order name: Cardiac monitoring; Complete Time: 14:37 sp3 02/19 12:03 Order name: EKG - Nurse/Tech; Complete Time: 14:37 sp3 02/19 12:03 Order name: IV Saline Lock; Complete Time: 13:59 sp3 02/19 12:03 Order name: Labs collected and sent; Complete Time: 13:59 sp3 02/19 12:03 Order name: O2 Per Protocol; Complete Time: 13:59 sp3 02/19 12:03 Order name: O2 Sat Monitoring; Complete Time: 13:59 sp3 Administered Medications: 14:27 Not Given (Changed): cefepime2 grams IVPB at 200 ml/hr once over 30 mins; (mix in NS sp3 100 mL) 14:37 Drug: NS 0.9% IV 1000 ml IV at 1 bolus Per protocol; to be given as a bolus over 60 jl7 minutes Route: IV; Rate: 1 bolus; Site: left forearm; 16:13 Follow up: Response: No adverse reaction; IV Status: pt discharged.; IV Intake: 900ml jb4 14:37 Drug: levofloxacin IVPB 500 mg 100 ml IVPB once over 60 mins Volume: 100 ml; Route: jl7 IVPB; Infused Over: 60 mins; Site: left forearm; 15:37 Follow up: Response: No adverse reaction; IV Status: Completed infusion; IV Intake: jb4 100ml 15:15 Drug: Albuterol Inhalation 2.5 mg Inhalation once Route: Inhalation; jl7 16:12 Follow up: Response: No adverse reaction jb4 Disposition Summary: 02/20/24 14:33 Discharge Ordered Notes: Location: Home sp3 Condition: Stable sp3 Diagnosis - Pneumonia, cough, shortness of breath sp3 Followup: sp3 - With: Private Physician - When: Upon discharge from the Emergency Department - Reason: Continuance of care Discharge Instructions: - Discharge Summary Sheet sp3 - Community-Acquired Pneumonia, Adult sp3 Forms: - Medication Reconciliation Form sp3 - Antibiotic Education sp3 - Prescription Opioid Use sp3 - Patient Portal Instructions sp3 - Leadership Thank You Letter sp3 - Work release form cm10 Prescriptions: - levofloxacin 500 mg Oral tablet - take 1 tablet ORAL route once daily for 6 days; 6 tablet; Refills: 0, Product sp3 Selection Permitted Signatures: Dispatcher [employer] Lakshmi Ontiveros RN RN jl7 Ralph Salazar MD MD sp3 Sharon Ramsey RN RN cm10 Heriberto Hopkins RN jb4 Corrections: (The following items were deleted from the chart) 12:04 12:03 BASIC METABOLIC PANEL+C.LAB.BRZ ordered. EDMS EDMS 12:04 12:03 CBC+H.LAB.BRZ ordered. EDMS EDMS 12:04 12:03 HEPATIC FUNCTION+C.LAB.BRZ ordered. EDMS EDMS 12:04 12:03 MAGNESIUM+C.LAB.BRZ ordered. EDMS EDMS 12:04 12:03 PROBNP+C.LAB.BRZ ordered. EDMS EDMS 12:04 12:03 PROTIME (+INR)+COAG.LAB.BRZ ordered. EDMS EDMS 12: 12:03 Troponin High Sensitivity+C.LAB.BRZ ordered. EDMS EDMS 12:04 12:04 Chest Single View+RAD.RAD.BRZ ordered. EDMS EDMS 14:40 13:24 BLOOD CULTURE*+BA.LAB.BRZ ordered. EDMS EDMS
[2024-02-20] MEDS ORDERED: ALBUTEROL 2.5 MG/3 ML NEB SOL ONE (15:19)
[2024-02-20 16:29] VITALS: TEMP 97.7
[2024-02-20 16:35] VITALS: BP 139/80; O2SAT 100
--- NOTE | 2024-02-23 15:57 | EKG ---
Test Date: 2024-02-20 Test Time: 13:18:59 Aqueduct And Reservoir Keeper: TM MEASUREMENT RESULTS: Intervals: Rate: 63 IL: 146 QRSD: 76 QT: 424 QTc: 433 [place]: P: 52 IL: 146 QRS: -12 T: 25 INTERPRETIVE STATEMENTS: Normal sinus rhythm Normal ECG Compared to ECG 05/24/2023 13:24:04 No significant changes Electronically Signed On 02-23-24 15:51:39 SCOUT SNIPER by Elliott Hamilton
== END 2024-02-20 16:15 | disposition home or self-care (01) ==
LOC: ER 11:52
DX: J18.9 Pneumonia, unspecified organism (principal); R06.02 Shortness of breath; I10 Essential (primary) hypertension; E11.9 Type 2 diabetes mellitus without complications; I25.2 Old myocardial infarction
CPT/HCPCS: 96365; 96361; 93005; 85025; 80048; 36415; 83735; 85610; 80076; 84484; 83880; 71045; 99285; J7613; J7030; J0692

== ENCOUNTER 2024-02-29 11:07 | Emergency (ER) | payer BC, OTHER ==
--- NOTE | 2024-02-29 11:55 | RAD REPORT ---
EXAMINATION: ONE VIEW CHEST XR CLINICAL INDICATION: COUGH TECHNIQUE: Frontal chest projection is submitted. Examination is limited by patient positioning and t echnique. COMPARISON: 02/20/2024 FINDINGS: Previous left lower lobe infiltrate has improved. The lung appear grossly clear. The heart is normal in size. No displaced fractures identified. IMPRESSION: The left lower lobe previously noted pneumonia appears to have cleared.
[2024-02-29 12:09] LABS: Specific Gravity 1.024 (1.005-1.030); Sqamous Epithelial <5 /HPF (None Seen); Transitional Epithelial <5 /HPF (None Seen); Urine Bacteria None Seen /HPF (<20); Urine Bilirubin NEGATIVE (Negative); Urine Blood Negative (Negative); Urine Clarity Clear (Clear); Urine Color Light-Yellow (Yellow); Urine Culture Reflex Order NOT NEEDED; Urine Glucose 4+ (Over) (Negative); Urine Ketones NEGATIVE (Negative); Urine Micro Reflex YN NO BILL MICROSCOPIC; Urine Nitrite NEGATIVE (Negative); Urine Protein NEGATIVE (Negative); Urine Urobilinogen Normal (Normal); Urine WBC <5 /HPF (<5)
[2024-02-29 12:19] LABS: SARS-CoV-2 Antigen CONTROL BLUE LINE VIS/BG OK; SARS-CoV-2 Antigen Rapid Res Negative (Negative)
[2024-02-29 12:29] LABS: Absolute Basophils 0.1 K/uL (0-0.5); Absolute Eosinophils 0.1 K/uL (0-0.5); Absolute Lymphocytes (CBC) 1.9 K/uL (0.7-4.9); Absolute Monocytes 0.6 K/uL (0.1-1.3); Absolute Neutrophil 4.8 K/uL (1.8-8.0); Basophils % 0.7 % (0-1.3); Hemoglobin 13.6 g/dL (12.0-15.0); Lymphocytes % 25.2 % (15.3-44.8); MCH 29.8 pg (27.0-35.0); MCHC 32.4 g/dL (32.0-36.0); MPV 7.3 fL (7.6-11.3); Monocytes % 8.5 % (3.3-12.3); Neutrophils % 63.6 % (41.7-73.7); Platelets 292 thou/uL (152-406); RBC Red Blood Cell Count 4.56 M/uL (3.86-4.86); Red Cell Distribution Width 16.4 % (12.1-15.2)
[2024-02-29 12:46] LABS: Anion Gap 6.2 mEq/L (5.0-15.0)
[2024-02-29 12:47] LABS: Potassium 4.2 mEq/L (3.5-5.1)
--- NOTE | 2024-02-29 13:19 | EDPHYS ---
Physician Documentation [facility] Name: Tamy Martinez Age: 63 yrs Sex: Female : 1960 Arrival Date: 02/29/2024 Time: 11:07 Bed 15 Private MD: ED Physician Yonatan Sargent HPI: 02/28 11:38 This 63 yrs old Female presents to ER via Ambulatory with complaints of Flu ec2 Symptoms. 11:38 Patient arrives today for evaluation of cough and cold symptoms ongoing for greater ec2 than 1 week. Patient reports that she was diagnosed with pneumonia, was on antibiotics and completed these. Patient reports she is having generalized weakness. Some decreased p.o. intake along with nausea. No vomiting. Some diarrhea.. Historical: - Allergies: 11:27 Iodinated Contrast Media - IV Dye; db 11:27 SHELLFISH; db - PMHx: 11:27 Diabetes - IDDM; Hypertension; Myocardial infarction; Rheumatoid Arthritis; db - PSHx: 11:27 B knee replacements; section; Cholecystectomy; lap band; db - Immunization history:: Adult Immunizations unknown. - Infectious Disease History:: Denies. - Social history:: Smoking status: Patient denies any tobacco usage or history of. ROS: 11:38 Constitutional: as per hpi ec2 Exam: 11:38 Constitutional: GEN: NAD Head: atraumatic Eyes: EOMI Ears: External ears are ec2 normal. CV: regular rate LUNGS: no respiratory distress, no wheezes or rales or rhonchi. ABD: non-distended SKIN: no evidence of rashes MSK: no evidence of trauma Vital Signs: 11:15 BP 136 / 77; Pulse 79; Resp 18; Temp 98.1(O); Pulse Ox 97% on R/A; Weight 87.09 kg; db Height 5 ft. 0 in. ; 12:23 BP 121 / 59; Pulse 82; Resp 15; Pulse Ox 98% on R/A; ko1 13:27 BP 118 / 64; Pulse 78; Resp 15; Pulse Ox 98% on R/A; ko1 11:15 Body Mass Index 37.50 (87.09 kg, 152.4 cm) db MDM: 11:28 Medical Screening Exam initiated ec2 11:38 Data reviewed: vital signs, nurses notes. ED course: Patient arrives today for ec2 evaluation of feeling unwell with cough and cold symptoms. Examination is revealing for nontoxic individual hemodynamically stable with a reassuring cardiopulmonary examination. Will obtain lab work, chest x-ray, viral swabs. Suspect viral infection, additionally considered other process such as pneumonia, urinary tract infection.. 11:51 ED course: EKG independently reviewed and interpreted by me, shows normal sinus rhythm, ec2 rate of 78, no acute ST segment elevations, intervals are nonactionable.. 13:18 ED course: Labs and x-ray are unrevealing. Will discharge home, suspect sequela of ec2 recent pneumonia. Return precautions given.. 02/28 11:29 Order name: Basic Metabolic Panel; Complete Time: 13:00 ec2 02/28 11:29 Order name: CBC with Diff; Complete Time: 13:00 ec2 02/28 11:29 Order name: Influenza Screen (a \T\ B); Complete Time: 13:00 ec2 02/28 11:29 Order name: SARS RAPID; Complete Time: 13:00 ec2 02/28 11:39 Order name: UAM; Complete Time: 12:11 ec2 02/28 11:29 Order name: XRAY Chest (1 view); Complete Time: 11:59 ec2 02/28 11:29 Order name: EKG; Complete Time: 11:30 ec2 02/28 11:29 Order name: Cardiac monitoring; Complete Time: 11:33 ec2 02/28 11:29 Order name: EKG - Nurse/Tech; Complete Time: 11:57 ec2 02/28 11:29 Order name: Labs collected and sent; Complete Time: 12:18 ec2 02/28 11:29 Order name: O2 Per Protocol; Complete Time: 11:33 ec2 02/28 11:29 Order name: O2 Sat Monitoring; Complete Time: 11:33 ec2 Administered Medications: No medications were administered Disposition Summary: 02/29/24 13:18 Discharge Ordered Notes: Location: Home ec2 Condition: Stable ec2 Diagnosis - Viral infection, unspecified ec2 Followup: ec2 - With: Private Physician - When: - Reason: Re-evaluation by your physician Discharge Instructions: - Discharge Summary Sheet ec2 - Viral Illness, Adult ec2 Forms: - Medication Reconciliation Form ec2 - Antibiotic Education ec2 - Prescription Opioid Use ec2 - Patient Portal Instructions ec2 - Leadership Thank You Letter ec2 Prescriptions: - Laviniasaljamel Perljessica 100 mg Oral Capsule - take 1 capsule ORAL route every 8 hours As needed; 15 capsule; Refills: 0, ec2 Product Selection Permitted Signatures: Dispatcher [employer] Angie Garcia, RN RN db Yonatan Sargent MD MD ec2 Corrections: (The following items were deleted from the chart) 11:30 11:30 BASIC METABOLIC PANEL+C.LAB.BRZ ordered. EDMS EDMS 11:30 11:30 CBC+H.LAB.BRZ ordered. EDMS EDMS 11:30 11:30 Influenza Screen (A \T\ B)+BA.LAB.BRZ ordered. EDMS EDMS 11:30 11:30 SARS-COV-2 Antigen Rapid+I.LAB.BRZ ordered. EDMS EDMS
--- NOTE | 2024-02-29 13:19 | ER ---
Nurse's Notes [facility] Name: Tamy Martinez Age: 63 yrs Sex: Female : 1960 Arrival Date: 02/29/2024 Time: 11:07 Bed 15 Private MD: Diagnosis: Viral infection, unspecified Presentation: 02/28 11:15 Chief complaint: Patient states: DX WITH PNA 1 WEEK AGO. SYMPTOMS HAVE NOT IMPROVED. db STATES FOLLOWED UP WITH PCP THIS WEEK AND CALLED TODAY AND WAS TOLD TO COME TO ER TODAY. GLUCOSE AT HOME 112. Coronavirus screen: Client denies travel out of the [place] in the last 14 days. At this time, the client does not indicate any symptoms associated with coronavirus-19. Ebola Screen: Patient negative for fever greater than or equal to 101.5 degrees Fahrenheit, and additional compatible Ebola Virus Disease symptoms Patient denies exposure to infectious person. Patient denies travel to an Ebola-affected area in the 21 days before illness onset. No symptoms or risks identified at this time. Initial Sepsis Screen: Does the patient meet any 2 criteria? No. Patient's initial sepsis screen is negative. Does the patient have a suspected source of infection? No. Patient's initial sepsis screen is negative. Risk Assessment: Do you want to hurt yourself or someone else? Patient reports no desire to harm self or others. Onset of symptoms was February 22, 2024. 11:15 Method Of Arrival: Ambulatory db 11:15 Acuity: HODAN 3 db Triage Assessment: 11:15 General: Appears in no apparent distress. comfortable, Behavior is calm, cooperative. db Pain: Denies pain. Neuro: Level of Consciousness is awake, alert, obeys commands, Oriented to person, place, time, situation. Respiratory: Airway is patent Respiratory effort is even, unlabored, Respiratory pattern is regular, symmetrical. Historical: - Allergies: 11:27 Iodinated Contrast Media - IV Dye; db 11:27 SHELLFISH; db - PMHx: 11:27 Diabetes - IDDM; Hypertension; Myocardial infarction; Rheumatoid Arthritis; db - PSHx: 11:27 B knee replacements; section; Cholecystectomy; lap band; db - Immunization history:: Adult Immunizations unknown. - Infectious Disease History:: Denies. - Social history:: Smoking status: Patient denies any tobacco usage or history of. Screenin:15 [facility] ED Fall Risk Assessment (Adult) History of falling in the last 3 months, ko1 including since admission No falls in past 3 months (0 pts) Confusion or Disorientation No (0 pts) Intoxicated or Sedated No (0 pts) Impaired Gait No (0 pts) Mobility Assist Device Used No (0 pt) Altered Elimination No (0 pt) Score/Fall Risk Level 0 - 2 = Low Risk Oriented to surroundings, Maintained a safe environment, Educated pt \T\ family on fall prevention, incl call for assistance when getting out of bed, Assessed \T\ reinforced patient's understanding of fall precautions, Hourly rounding (assess needs \T\ fall precautionary measures) done. Abuse screen: Denies threats or abuse. Denies injuries from another. Nutritional screening: No deficits noted. Tuberculosis screening: No symptoms or risk factors identified. Assessment: 12:15 General: Appears in no apparent distress. Behavior is calm, cooperative, appropriate ko1 for age. Pain: Denies pain. Neuro: No deficits noted. Cardiovascular: No deficits noted. Respiratory: Reports cough that is non-productive. Respiratory: Reports shortness of breath on exertion. GI: No deficits noted. : No deficits noted. EENT: No deficits noted. Derm: No deficits noted. Musculoskeletal: No deficits noted. Vital Signs: 11:15 BP 136 / 77; Pulse 79; Resp 18; Temp 98.1(O); Pulse Ox 97% on R/A; Weight 87.09 kg; db Height 5 ft. 0 in. ; 12:23 BP 121 / 59; Pulse 82; Resp 15; Pulse Ox 98% on R/A; ko1 13:27 BP 118 / 64; Pulse 78; Resp 15; Pulse Ox 98% on R/A; ko1 11:15 Body Mass Index 37.50 (87.09 kg, 152.4 cm) db ED Course: 11:09 Patient arrived in ED. im 11:11 Carlyn Ramirez, MAY is Primary Nurse. ko1 11:15 Arm band placed on Patient placed in an exam room. db 11:22 Yonatan Sargent MD is Attending Physician. ec2 11:27 Triage completed. db 11:48 XRAY Chest (1 view) In Process Unspecified. EDMS 11:52 UAM Sent. ko1 11:58 SARS RAPID Sent. ko1 11:58 Influenza Screen (a \T\ B) Sent. ko1 12:17 Patient has correct armband on for positive identification. Allergy band placed. Bed in ko1 low position. Call light in reach. Side rails up X2. Provided Education on: labs. Client placed on continuous cardiac and pulse oximetry monitoring. NIBP monitoring applied. food checker on. Door closed. Noise minimized. Lights dimmed. Warm blanket given. Pillow given. Assisted to bathroom. 12:17 No provider procedures requiring assistance completed. Urine collected: clean catch ko1 specimen, cloudy, EKG done, by ED staff, reviewed by Yonatan Sargent MD COVID swab sent to lab. Flu and/or RSV swab sent to lab. 12:18 Basic Metabolic Panel Sent. ko1 12:18 CBC with Diff Sent. ko1 12:23 Initial lab(s) drawn, by ED staff, sent to lab. ko1 13:27 Patient did not have IV access during this emergency room visit. ko1 Administered Medications: No medications were administered Medication: 12:15 VIS not applicable for this client. ko1 Outcome: 13:18 Discharge ordered by . ec2 13:27 Discharged to home ambulatory, ko1 13:27 Condition: stable 13:27 Discharge instructions given to patient, Instructed on discharge instructions, follow up and referral plans. medication usage, Demonstrated understanding of instructions, follow-up care, medications, Prescriptions given X 1, 13:39 Patient left the ED. ko1 Signatures: Dispatcher [employer] Carlyn Velasco RN RN ko1 Angie Dang RN RN db Mendoza, Itzel im Corral, Edwin, MD MD ec2
[2024-02-29 13:54] VITALS: TEMP 98.1
[2024-02-29 13:56] VITALS: O2SAT 98
[2024-02-29 13:57] VITALS: BP 118/64
--- NOTE | 2024-03-01 15:42 | EKG ---
Test Date: 2024-02-29 Test Time: 11:43:59 Scrap Kettle Tender: TERESA MEASUREMENT RESULTS: Intervals: Rate: 78 DE: 152 QRSD: 78 QT: 384 QTc: 437 [place]: P: 45 DE: 152 QRS: -21 T: 49 INTERPRETIVE STATEMENTS: Normal sinus rhythm Low voltage QRS Borderline ECG Compared to ECG 02/20/2024 13:18:59 Low QRS voltage now present Electronically Signed On 03-01-24 15:40:11 DRIFTMAN by Elliott Hamilton
== END 2024-02-29 13:39 | disposition home or self-care (01) ==
LOC: ER 11:07
DX: B34.9 Viral infection, unspecified (principal); I10 Essential (primary) hypertension; E11.9 Type 2 diabetes mellitus without complications; I25.2 Old myocardial infarction; M06.9 Rheumatoid arthritis, unspecified; Z79.4 Long term (current) use of insulin; Z91.013 Allergy to seafood; Z91.048 Other nonmedicinal substance allergy status; Z11.52 Encounter for screening for COVID-19
CPT/HCPCS: 36415; 71045; 80048; 81001; 85025; 87804; 87811; 93005; 99284

== ENCOUNTER 2024-04-07 12:09 | Emergency (ER) | payer BC, OTHER ==
[2024-04-07] MEDS ORDERED: AMOX/K CLAV 875 MG TAB ONE (13:24)
--- NOTE | 2024-04-07 14:40 | RAD REPORT ---
EXAMINATION: Forearm Left CLINICAL INDICATION: Female, 64 years old. PAIN COMPARISON: No prior exam. FINDINGS: No forearm fracture identified. Advanced degenerative changes are present at the left wrist including at the carpus. IMPRESSION: No left forearm fracture identified. If there is concern for a wrist fracture, suggest dedicated wris t radiograph.
[2024-04-07] MEDS ORDERED: HYDROCODONE/APAP 7.5/325 MG TAB ONE (15:51)
--- NOTE | 2024-04-07 16:28 | RAD REPORT ---
EXAMINATION: Wrist Left 3 View CLINICAL INDICATION: Female, 64 years old. PAIN COMPARISON: No prior exam. FINDINGS: No acute fracture. No malalignment/dislocation. Severe joint space narrowing and sclerosis at the radiocarpal joint, ulnocarpal joint, and distal rad ial ulnar joint. Moderate degenerative changes are also present at the carpus. Other: n/a IMPRESSION: No acute osseous abnormality involving the left wrist. Advanced degenerative changes.
--- NOTE | 2024-04-07 16:33 | EDPHYS ---
Physician Documentation [facility] Name: Tamy Martinez Age: 64 yrs Sex: Female : 1960 Arrival Date: 04/07/2024 Time: 12:09 Bed 10 Private MD: ED Physician Prince Lopez HPI: 04/07 14:11 This 64 yrs old Female presents to ER via Ambulatory with complaints of Sore Throat, kb Facial Injury. 14:11 Patient is a 64-year-old female who presents for sore throat and left wrist pain. kb States she has had a sore throat for 2 days so was going to come to the ER for evaluation. States she fell on the way out of the house and caught herself with left hand causing pain to wrist. Denies fever, cough, congestion, any other injuries.. Historical: - Allergies: 12:37 SHELLFISH; db 12:37 Iodinated Contrast Media - IV Dye; db - PMHx: 12:37 Diabetes - IDDM; Hypertension; Myocardial infarction; Rheumatoid Arthritis; db - PSHx: 12:37 B knee replacements; section; Cholecystectomy; lap band; db - Immunization history:: Adult Immunizations unknown. - Infectious Disease History:: Denies. - Social history:: Smoking status: Patient denies any tobacco usage or history of. ROS: 14:11 Constitutional: As per HPI kb Exam: 14:11 Constitutional: This is a well developed, well nourished patient who is awake, alert, kb and in no acute distress. Head/Face: Normocephalic, atraumatic. ENT: Moist Mucous membranes Cardiovascular: Regular rate Respiratory: Respirations even and unlabored. No increased work of breathing. Talking in full sentences Abdomen/GI: Soft, non-tender. No distention Skin: Warm, dry with normal turgor. Normal color. Neuro: Awake and alert, GCS 15, oriented to person, place, time, and situation. 14:11 ENT: Posterior pharynx: swelling, is not appreciated, erythema, that is moderate, 14:11 Musculoskeletal/extremity: Extremities: grossly normal except: noted in the left wrist: decreased ROM, pain, tenderness, ROM: limited active range of motion due to pain, Circulation is intact in all extremities. Sensation intact. Vital Signs: 12:35 BP 139 / 61; Pulse 69; Resp 16; Temp 97.7; Pulse Ox 99% ; Weight 87.09 kg; Height 6 ft. db 3 in. ; 15:00 BP 132 / 68; Pulse 72; Resp 17; Pulse Ox 98% ; ko1 12:35 Body Mass Index 23.62 (87.09 kg, 192 cm) db MDM: 12:13 Medical Screening Exam initiated kb 14:12 Differential diagnosis: Pharyngitis, tonsillitis, strep throat, fracture, contusion, kb sprain. Data reviewed: vital signs, nurses notes. 16:32 Counseling: I had a detailed discussion with the patient and/or guardian regarding the kb historical points, exam findings, and any diagnostic results supporting the discharge/admit diagnosis, lab results, radiology results, the need for outpatient follow up, a family practitioner, to return to the emergency department if symptoms worsen or persist or if there are any questions or concerns that arise at home. 04/07 12:38 Order name: Strep; Complete Time: 13:08 kb 04/07 12:38 Order name: Forearm Left XRAY; Complete Time: 14:40 kb 04/07 14:42 Order name: Wrist Left (3 View) XRAY; Complete Time: 16:32 kb 04/07 16:33 Order name: Wrist Splint; Complete Time: 17:20 kb Administered Medications: 13:24 Drug: Amoxicillin-Clavulanate PO 875 mg PO once Route: PO; ko1 13:55 Follow up: Response: No adverse reaction ko1 15:54 Drug: Hydrocodone-Acetaminophen PO (7.5 mg-325 mg) 1 tabs PO once Route: PO; ko1 16:30 Follow up: Response: No adverse reaction ko1 Disposition: 04/08 17:20 Co-signature as Attending Physician, Prince Lopez MD I reviewed the patient's care rn provided by the Advanced Practice Provider and agree with the diagnosis and treatment plan. Disposition Summary: 04/07/24 16:32 Discharge Ordered Notes: Location: Home kb Condition: Stable kb Diagnosis - Other specified sprain of left wrist kb - Streptococcal pharyngitis kb Followup: kb - With: Emergency Department - When: As needed - Reason: Worsening of condition Followup: kb - With: Private Physician - When: 2 - 3 days - Reason: Recheck today's complaints, Continuance of care, Re-evaluation by your physician Discharge Instructions: - Discharge Summary Sheet kb - Strep Throat, Adult, [id number] kb - Wrist Sprain, Adult kb Forms: - Medication Reconciliation Form kb - Antibiotic Education kb - Prescription Opioid Use kb - Patient Portal Instructions kb - Leadership Thank You Letter Prescriptions: - Augmentin 875-125 mg Oral Tablet - take 1 tablet ORAL route every 12 hours for 10 days; 20 tablet; Refills: 0, kb Product Selection Permitted - Diclofenac Sodium 75 mg Oral tablet, delayed release (enteric coated) - take 1 tablet ORAL route 2 times per day As needed; 30 tablet; Refills: 0, kb Product Selection Permitted Signatures: Dispatcher [employer] EDChhaya Troy, DIGITAL MARKETING PROJECT MANAGER-C DIGITAL MARKETING PROJECT MANAGER-Ckb Prince Lopez MD MD rn Oliver, Kathy RN RN koAngie Peterson RN RN db
--- NOTE | 2024-04-07 16:33 | ER ---
Nurse's Notes [facility] Name: Tamy Martinez Age: 64 yrs Sex: Female : 1960 Arrival Date: 04/07/2024 Time: 12:09 Bed 10 Private MD: Diagnosis: Other specified sprain of left wrist;Streptococcal pharyngitis Presentation: 04/07 12:35 Chief complaint: Patient states: SORE THROAT X 2 DAYS. TRIPPED AND FELL TODAY HURT LEFT db WRIST. Coronavirus screen: Client denies travel out of the [place] in the last 14 days. At this time, the client does not indicate any symptoms associated with coronavirus-19. Ebola Screen: Patient negative for fever greater than or equal to 101.5 degrees Fahrenheit, and additional compatible Ebola Virus Disease symptoms Patient denies exposure to infectious person. Patient denies travel to an Ebola-affected area in the 21 days before illness onset. No symptoms or risks identified at this time. Initial Sepsis Screen: Does the patient meet any 2 criteria? No. Patient's initial sepsis screen is negative. Does the patient have a suspected source of infection? No. Patient's initial sepsis screen is negative. Risk Assessment: Do you want to hurt yourself or someone else? Patient reports no desire to harm self or others. Onset of symptoms was April 07, 2024. 12:35 Method Of Arrival: Ambulatory db 12:35 Acuity: HODAN 4 db Triage Assessment: 12:37 General: Appears in no apparent distress. comfortable, Behavior is calm, cooperative. db Pain: Complains of pain in mouth. EENT: Reports SORE THROAT. Respiratory: Airway is patent Respiratory effort is even, unlabored, Respiratory pattern is regular, symmetrical. Musculoskeletal: Range of motion: limited in left wrist Reports pain in left arm. Historical: - Allergies: 12:37 SHELLFISH; db 12:37 Iodinated Contrast Media - IV Dye; db - PMHx: 12:37 Diabetes - IDDM; Hypertension; Myocardial infarction; Rheumatoid Arthritis; db - PSHx: 12:37 B knee replacements; section; Cholecystectomy; lap band; db - Immunization history:: Adult Immunizations unknown. - Infectious Disease History:: Denies. - Social history:: Smoking status: Patient denies any tobacco usage or history of. Screenin:28 [facility] ED Fall Risk Assessment (Adult) History of falling in the last 3 months, ko1 including since admission Yes- single mechanical fall (1 pt) Confusion or Disorientation No (0 pts) Intoxicated or Sedated No (0 pts) Impaired Gait No (0 pts) Mobility Assist Device Used No (0 pt) Altered Elimination No (0 pt) Score/Fall Risk Level 0 - 2 = Low Risk Oriented to surroundings, Maintained a safe environment, Educated pt \T\ family on fall prevention, incl call for assistance when getting out of bed, Assessed \T\ reinforced patient's understanding of fall precautions, Hourly rounding (assess needs \T\ fall precautionary measures) done. Abuse screen: Denies threats or abuse. Denies injuries from another. Nutritional screening: No deficits noted. Tuberculosis screening: No symptoms or risk factors identified. Assessment: 13:30 General: Appears uncomfortable, Behavior is calm, cooperative, appropriate for age. ko1 Pain: Complains of pain in left wrist. Neuro: No deficits noted. Cardiovascular: No deficits noted. Respiratory: Airway is patent Breath sounds are clear bilaterally. GI: No deficits noted. No signs and/or symptoms were reported involving the gastrointestinal system. : No deficits noted. No signs and/or symptoms were reported regarding the genitourinary system. EENT: Throat is reddened Reports difficulty swallowing. Derm: No deficits noted. No signs and/or symptoms reported regarding the dermatologic system. Musculoskeletal: No deficits noted. No signs and/or symptoms reported regarding the musculoskeletal system. 17:21 Respiratory: Trachea midline Respiratory effort is even, unlabored, Respiratory pattern ko1 is regular, symmetrical. Vital Signs: 12:35 BP 139 / 61; Pulse 69; Resp 16; Temp 97.7; Pulse Ox 99% ; Weight 87.09 kg; Height 6 ft. db 3 in. ; 15:00 BP 132 / 68; Pulse 72; Resp 17; Pulse Ox 98% ; ko1 12:35 Body Mass Index 23.62 (87.09 kg, 192 cm) db ED Course: 12:11 Patient arrived in ED. im 12:13 Chhaya Collado FNP-C is PHCP. kb 12:13 Prince Lopez MD is Attending Physician. kb 12:35 Arm band placed on Patient placed in an exam room. db 12:37 Triage completed. db 12:45 Strep Sent. kb4 12:45 Strep swab sent to lab. kb4 12:47 Carlyn Ramirez, RN is Primary Nurse. ko1 13:28 Patient has correct armband on for positive identification. Allergy band placed. Call ko1 light in reach. Side rails up X2. Provided Education on: meds. Door closed. Noise minimized. Lights dimmed. Warm blanket given. Pillow given. 13:28 No provider procedures requiring assistance completed. Patient did not have IV access ko1 during this emergency room visit. 14:32 Forearm Left XRAY In Process Unspecified. EDMS 16:20 Wrist Left (3 View) XRAY In Process Unspecified. EDMS 17:01 Awaiting: wrist splint, fruit grading supervisor to warp picker. ko1 17:21 Velcro wrist splint applied to left wrist. ko1 Administered Medications: 13:24 Drug: Amoxicillin-Clavulanate PO 875 mg PO once Route: PO; ko1 13:55 Follow up: Response: No adverse reaction ko1 15:54 Drug: Hydrocodone-Acetaminophen PO (7.5 mg-325 mg) 1 tabs PO once Route: PO; ko1 16:30 Follow up: Response: No adverse reaction ko1 Medication: 13:28 VIS not applicable for this client. ko1 Outcome: 16:32 Discharge ordered by MD. kb 17:21 Discharged to home ambulatory, ko1 17:21 Condition: stable 17:21 Discharge instructions given to patient, Instructed on discharge instructions, follow up and referral plans. medication usage, Demonstrated understanding of instructions, follow-up care, medications, splint care, Prescriptions given X 2, 17:22 Patient left the ED. ko1 Signatures: Dispatcher [employer] EDMS Chhaya Collado, CAREER COORDINATOR-C CAREER COORDINATOR-CkCarlyn Neville, RN RN ko1 Angie Dang RN RN Kait García Kayla kb4 Corrections: (The following items were deleted from the chart) 12:38 12:35 Pulse 69bpm; Resp 16bpm; Pulse Ox 99%; Temp 97.7F; 87.09 kg; Height 6 ft. 3 in.; db BMI: 23.6; db 13:29 13:28 [facility] ED Fall Risk Assessment (Adult) History of falling in the last 3 months, ko1 including since admission No falls in past 3 months (0 pts) Confusion or Disorientation No (0 pts) Intoxicated or Sedated No (0 pts) Impaired Gait No (0 pts) Mobility Assist Device Used No (0 pt) Altered Elimination No (0 pt) Score/Fall Risk Level 0 - 2 = Low Risk Oriented to surroundings, Maintained a safe environment, Educated pt \T\ family on fall prevention, incl call for assistance when getting out of bed, Assessed \T\ reinforced patient's understanding of fall precautions, Hourly rounding (assess needs \T\ fall precautionary measures) done, ko1
[2024-04-07 20:22] VITALS: TEMP 97.7
[2024-04-07 20:23] VITALS: BP 132/68; O2SAT 98
== END 2024-04-07 17:22 | disposition home or self-care (01) ==
LOC: ER 12:09
DX: S63.592A Other specified sprain of left wrist, initial encounter (principal); J02.0 Streptococcal pharyngitis
CPT/HCPCS: 87081; 99284

== ENCOUNTER 2024-04-23 13:33 | Observation (INO) | payer BC, OTHER ==
[2024-04-23] MEDS ORDERED: ASPIRIN 81 MG CHEWABLE TABLET ONE (13:54)
[2024-04-23 15:04] LABS: PT Prothrombin Time 11.8 SECONDS (9.4-12.5); Protime INR 1.13
[2024-04-23 15:10] LABS: Albumin 3.5 g/dL (3.4-5.0); Albumin/Globulin Ratio 0.8 (1.1-1.8); Anion Gap 8.3 mEq/L (5.0-15.0); Bilirubin Direct 0.2 mg/dL (0-0.2); Bilirubin Indirect, Calculated 0.3 mg/dL (0.2-0.8); Bilirubin Total 0.5 mg/dL (0.2-1.0); Globulin 4.6 g/dL (2.3-3.5); Magnesium 2.3 mg/dL (1.6-2.4); Potassium 4.3 mEq/L (3.5-5.1); Protein, Total 8.1 g/dL (6.4-8.2); Troponin High Sensitivity 9.2 pg/mL (<58.9)
[2024-04-23 15:12] LABS: Absolute Eosinophils 0.2 K/uL (0-0.5); Absolute Lymphocytes (CBC) 1.7 K/uL (0.7-4.9); Absolute Monocytes 0.6 K/uL (0.1-1.3); Absolute Neutrophil 3.7 K/uL (1.8-8.0); Basophils % 0.7 % (0-1.3); Eosinophils % 2.6 % (0-4.4); Hematocrit 41.2 % (36.0-45.0); Hemoglobin 14.1 g/dL (12.0-15.0); Lymphocytes % 27.5 % (15.3-44.8); MCH 30.4 pg (27.0-35.0); MCHC 34.1 g/dL (32.0-36.0); MPV 7.5 fL (7.6-11.3); Monocytes % 9.1 % (3.3-12.3); Neutrophils % 60.1 % (41.7-73.7); Nucleated Red Blood Cells % 0.2 % (0-0); Platelets 237 thou/uL (152-406); RBC Red Blood Cell Count 4.63 M/uL (3.86-4.86); Red Cell Distribution Width 16.8 % (12.1-15.2)
--- NOTE | 2024-04-23 15:12 | RAD REPORT ---
EXAM: Chest Single View HISTORY: CHEST PAIN COMPARISON: 02/29/2024 FINDINGS: LUNGS/PLEURA: The lungs are clear. No pleural effusions or pneumothorax. No pulmonary edema. MEDIASTINUM: The mediastinal silhouette is within normal limits. CARDIAC: The cardiac silhouette is within normal limits. UPPER ABDOMEN: No significant abnormality. BONES: No acute abnormality. Lumbar curvature. LINES/TUBES/OTHER: N/A IMPRESSION: No evidence of acute cardiopulmonary disease.
--- NOTE | 2024-04-23 15:44 | ER ---
Nurse's Notes [facility] Name: Tamy Martinez Age: 64 yrs Sex: Female : 1960 Arrival Date: 04/23/2024 Time: 13:33 Bed 4 Private MD: Diagnosis: Chest pain, unspecified;Essential (primary) hypertension Presentation: 04/23 13:47 Chief complaint: Patient states: midsternal chest pain that radiates to bilateral arms me1 "9/10" sharp w/nausea and headache, started 2 hours ago. Coronavirus screen: Vaccine status: Patient reports being unvaccinated. Ebola Screen: No symptoms or risks identified at this time. Initial Sepsis Screen: Does the patient meet any 2 criteria? No. Patient's initial sepsis screen is negative. Does the patient have a suspected source of infection? No. Patient's initial sepsis screen is negative. Risk Assessment: Do you want to hurt yourself or someone else? Patient reports no desire to harm self or others. Onset of symptoms was April 23, 2024 at 11:50. 13:47 Method Of Arrival: Wheelchair me1 13:47 Acuity: HODAN 3 me1 Historical: - Allergies: 13:49 Iodinated Contrast Media - IV Dye; me1 13:49 SHELLFISH; me1 - PMHx: 13:49 Diabetes - IDDM; Hypertension; Myocardial infarction; Rheumatoid Arthritis; me1 - PSHx: 13:49 B knee replacements; section; Cholecystectomy; lap band; Coronary Angioplasty; me1 - Immunization history:: Adult Immunizations up to date. - Infectious Disease History:: Denies. - Social history:: Smoking status: Patient denies any tobacco usage or history of. Screenin:39 [facility] ED Fall Risk Assessment (Adult) History of falling in the last 3 months, ld1 including since admission No falls in past 3 months (0 pts) Confusion or Disorientation No (0 pts) Intoxicated or Sedated No (0 pts) Impaired Gait No (0 pts) Mobility Assist Device Used No (0 pt) Altered Elimination No (0 pt) Score/Fall Risk Level 0 - 2 = Low Risk Oriented to surroundings, Hourly rounding (assess needs \\T\\ fall precautionary measures) done. Abuse screen: Denies threats or abuse. Denies injuries from another. Nutritional screening: No deficits noted. Tuberculosis screening: No symptoms or risk factors identified. Assessment: 15:00 General: Appears in no apparent distress. comfortable, Behavior is calm, cooperative, ld1 appropriate for age. Pain: Complains of pain in chest Pain does not radiate. Pain currently is 7 out of 10 on a pain scale. Quality of pain is described as throbbing, Pain began suddenly, Is continuous. Neuro: Level of Consciousness is awake, alert, obeys commands, Oriented to person, place, time, situation, Appropriate for age. Cardiovascular: Capillary refill < 3 seconds Patient's skin is warm and dry. Rhythm is sinus bradycardia. Respiratory: Airway is patent Respiratory effort is even, unlabored. GI: Abdomen is round non-distended. : No signs and/or symptoms were reported regarding the genitourinary system. EENT: No signs and/or symptoms were reported regarding the EENT system. Derm: No signs and/or symptoms reported regarding the dermatologic system. Musculoskeletal: No signs and/or symptoms reported regarding the musculoskeletal system. 16:07 Reassessment: Patient appears in no apparent distress at this time. Patient is alert, ld1 oriented x 3, equal unlabored respirations, skin warm/dry/pink. Pt c/o anxiety, general pain and tingling to arms. Notified ERP. See [facility] for orders. Vital Signs: 13:37 BP 166 / 72; Pulse 55; Resp 18; Pulse Ox 100% on R/A; ld1 13:47 BP 166 / 72; Pulse 54; Resp 18; Temp 98.2; Pulse Ox 100% ; Weight 87.09 kg; Height 5 me1 ft. 1 in. ; Pain 9/10; 14:00 BP 118 / 56; Pulse 58; Resp 17; Pulse Ox 100% on R/A; ld1 15:00 BP 155 / 54; Pulse 57; Resp 15; Pulse Ox 100% on R/A; ld1 13:47 Body Mass Index 36.28 (87.09 kg, 154.94 cm) me1 13:47 Pain Scale: Adult me1 ED Course: 13:35 Patient arrived in ED. im 13:39 Joe Estrada DO is Attending Physician. ms3 13:49 Triage completed. me1 13:49 Arm band placed on Patient placed in an exam room. me1 13:56 EKG done, by ED staff. tm3 14:09 XRAY Chest (1 view) In Process Unspecified. EDMS 14:51 Initial lab(s) drawn, by me, sent to lab. Inserted saline lock: 22 gauge in left zm antecubital area, using aseptic technique. Blood collected. Flushed with 10 mL NS. 14:52 Troponin HS Sent. zm 14:52 PT-INR Sent. zm 14:52 Magnesium Sent. zm 14:52 LFT's Sent. zm 14:52 CBC with Diff Sent. zm 14:52 Basic Metabolic Panel Sent. zm 15:37 Gemini Estrada, RN is Primary Nurse. ld1 15:39 Patient has correct armband on for positive identification. Placed in gown. Bed in low ld1 position. Call light in reach. Side rails up X2. bus driver/monitor on. Pulse ox on. NIBP on. Door closed. Noise minimized. Warm blanket given. 15:39 No provider procedures requiring assistance completed. Patient maintains SpO2 ld1 saturation greater than 95% on room air. 15:43 Jan Lopez MD is Hospitalizing Provider. ms3 17:07 Provided Education on: admit. ko1 17:07 Patient admitted, IV remains in place. ko1 Administered Medications: 13:59 Drug: Aspirin PO Chewable Tablet 324 mg PO once; 81 mg tablets x 4 Route: PO; ko1 14:30 Follow up: Response: No adverse reaction ko1 16:06 Drug: morphine IVP or IV 4 mg IVP once over 4 mins Route: IVP; Infused Over: 4 mins; ld1 Site: left antecubital; 16:21 Follow up: Response: No adverse reaction ko1 Medication: 15:39 VIS not applicable for this client. ld1 Outcome: 15:43 Decision to Hospitalize by Provider. ms3 17:07 Admitted to Tele accompanied by tech, via wheelchair, room 205, with chart, ko1 17:07 Condition: stable 17:07 Instructed on the need for admit, 17:39 Patient left the ED. ld1 Signatures: Dispatcher [employer] EDMS RosioEsteban tm3 Joe Estrada, DO ms3 Gemini Estrada RN RN ld1 Olga Ramsey Kathy, RN RN ko1 Stallworth, Kait im Eddleman, Maryann, RN RN me1
--- NOTE | 2024-04-23 15:44 | EDPHYS ---
Physician Documentation [facility] Name: Tamy Martinez Age: 64 yrs Sex: Female : 1960 Arrival Date: 04/23/2024 Time: 13:33 Bed 4 Private MD: ED Physician Joe Estrada HPI: 04/23 15:36 This 64 yrs old Female presents to ER via Wheelchair with complaints of Chest Pain. ms3 15:36 64-year-old female with past medical history of diabetes, hypertension, myocardial ms3 infarction, rheumatoid arthritis, coronary artery disease presents to the emergency department for chest pain that began 2 hours prior to arrival. Patient states her discomfort is a 9/10 located in the middle of her chest and radiating to bilateral arms. Patient endorses nausea and shortness of breath. She denies vomiting or sweats.. Historical: - Allergies: 13:49 Iodinated Contrast Media - IV Dye; me1 13:49 SHELLFISH; me1 - PMHx: 13:49 Diabetes - IDDM; Hypertension; Myocardial infarction; Rheumatoid Arthritis; me1 - PSHx: 13:49 B knee replacements; section; Cholecystectomy; lap band; Coronary Angioplasty; me1 - Immunization history:: Adult Immunizations up to date. - Infectious Disease History:: Denies. - Social history:: Smoking status: Patient denies any tobacco usage or history of. ROS: 15:36 Constitutional: Negative for fever, and chills. ms3 15:36 Abdomen/GI: Negative for abdominal pain, nausea, vomiting, diarrhea, and constipation, MS/Extremity: Negative for injury and deformity, Skin: Negative for injury, rash, and discoloration, 15:36 Cardiovascular: Positive for chest pain, 15:36 Respiratory: Positive for shortness of breath, Exam: 14:08 ECG was reviewed by the Attending Physician. ms3 15:36 Constitutional: This is a well developed, well nourished patient who is awake, alert, ms3 and in no acute distress. Cardiovascular: Regular rate and rhythm with a normal S1 and S2. No gallops, murmurs, or rubs. Normal PMI, no JVD. No pulse deficits. Respiratory: Lungs have equal breath sounds bilaterally, clear to auscultation and percussion. No rales, rhonchi or wheezes noted. No increased work of breathing, no retractions or nasal flaring. Abdomen/GI: Soft, non-tender, with normal bowel sounds. No distension or tympany. No guarding or rebound. No evidence of tenderness throughout. Skin: Warm, dry with normal turgor. Normal color with no rashes, no lesions, and no evidence of cellulitis. MS/ Extremity: Pulses equal, no cyanosis. Neurovascular intact. Full, normal range of motion. Vital Signs: 13:37 BP 166 / 72; Pulse 55; Resp 18; Pulse Ox 100% on R/A; ld1 13:47 BP 166 / 72; Pulse 54; Resp 18; Temp 98.2; Pulse Ox 100% ; Weight 87.09 kg; Height 5 me1 ft. 1 in. ; Pain 9/10; 14:00 BP 118 / 56; Pulse 58; Resp 17; Pulse Ox 100% on R/A; ld1 15:00 BP 155 / 54; Pulse 57; Resp 15; Pulse Ox 100% on R/A; ld1 13:47 Body Mass Index 36.28 (87.09 kg, 154.94 cm) me1 13:47 Pain Scale: Adult me1 MDM: 13:52 Medical Screening Exam initiated ms3 15:34 Differential diagnosis: abnormal EKG, acute myocardial infarction, coronary artery ms3 disease chest wall pain. HEART Score: History: Moderately Suspicious (1), ECG: Normal (0), Age: > 45 and < 65 years (1), Risk Factors: > or = 3 Risk factors for atherosclerotic disease (2), [Hypercholesterolemia] [Hypertension] [DM] Troponin: < or = 1 x Normal Limit (0), Total Score = 4. The patient was given aspirin in the Emergency Department. 15:36 Data reviewed: vital signs, nurses notes, lab test result(s), EKG, radiologic studies, ms3 and as a result, I will admit patient. I considered the following discharge prescriptions or medication management in the emergency department Medications were administered in the Emergency Department. See MAR. Independent interpretation of the following test(s) in the Emergency Department EKG: See my EKG interpretation above. Counseling: I had a detailed discussion with the patient and/or guardian regarding the historical points, exam findings, and any diagnostic results supporting the discharge/admit diagnosis, lab results, radiology results, the need for further work-up and treatment in the hospital. ED course: Discussed necessity for observation with patient. She understands and agrees with plan. All questions were answered. Discussed case with hospitalist and they accept patient as observation. 15:36 Consideration of Admission/Observation Patient was admitted/placed on observation. ms3 Management of patient was discussed with the following: Hospitalist: Dr Lopez. 04/23 13:39 Order name: Basic Metabolic Panel; Complete Time: 15:30 ms3 04/23 13:39 Order name: CBC with Diff; Complete Time: 15:30 ms3 04/23 13:39 Order name: LFT's; Complete Time: 15:30 ms3 04/23 13:39 Order name: Magnesium; Complete Time: 15:30 ms3 04/23 13:39 Order name: PT-INR; Complete Time: 15:30 ms3 04/23 13:39 Order name: Troponin HS; Complete Time: 15:30 ms3 04/23 13:39 Order name: XRAY Chest (1 view); Complete Time: 15:30 ms3 04/23 13:39 Order name: EKG; Complete Time: 13:40 ms3 04/23 13:39 Order name: Cardiac monitoring; Complete Time: 13:49 ms3 04/23 13:39 Order name: EKG - Nurse/Tech; Complete Time: 13:53 ms3 04/23 13:39 Order name: IV Saline Lock; Complete Time: 14:52 ms3 04/23 13:39 Order name: Labs collected and sent; Complete Time: 14:52 ms3 04/23 13:39 Order name: O2 Per Protocol; Complete Time: 13:49 ms3 04/23 13:39 Order name: O2 Sat Monitoring; Complete Time: 13:49 ms3 EC:08 Rate is 56 beats/min. Rhythm is regular. QRS [place] is Normal. [place] interval is normal. QRS ms3 interval is normal. Clinical impression: Sinus bradycardia. Interpreted by me. Reviewed by me. Administered Medications: 13:59 Drug: Aspirin PO Chewable Tablet 324 mg PO once; 81 mg tablets x 4 Route: PO; ko1 14:30 Follow up: Response: No adverse reaction ko1 16:06 Drug: morphine IVP or IV 4 mg IVP once over 4 mins Route: IVP; Infused Over: 4 mins; ld1 Site: left antecubital; 16:21 Follow up: Response: No adverse reaction ko1 Disposition Summary: 04/23/24 15:43 Hospitalization Ordered Notes: Hospitalization Status: Observation ms3 Provider: Jan Lopez ms3 Location: Telemetry/MedSurg (observation) ms3 Condition: Stable ms3 Problem: new ms3 Symptoms: are unchanged ms3 Bed/Room Type: Standard ms3 Room Assignment: 205(04/23/24 17:00) bd Diagnosis - Chest pain, unspecified ms3 - Essential (primary) hypertension ms3 Forms: - Medication Reconciliation Form ms3 - SBAR form ms3 - Leadership Thank You Letter ms3 Signatures: Dispatcher [employer] EDMS Monica Wise bd Natalie, Joe, DO ms3 Gemini Estrada, RN RN ld1 Carlyn Ramirez, RN RN ko1 Maryann Scanlon RN RN me1 Corrections: (The following items were deleted from the chart) 13:40 13:40 BASIC METABOLIC PANEL+C.LAB.BRZ ordered. EDMS EDMS 13:40 13:40 CBC+H.LAB.BRZ ordered. EDMS EDMS 13:40 13:40 HEPATIC FUNCTION+C.LAB.BRZ ordered. EDMS EDMS 13:40 13:40 MAGNESIUM+C.LAB.BRZ ordered. EDMS EDMS 13:40 13:40 PROTIME (+INR)+COAG.LAB.BRZ ordered. EDMS EDMS 13:40 13:40 Troponin High Sensitivity+C.LAB.BRZ ordered. EDMS EDMS 17:00 15:43 ms3 bd
[2024-04-23] MEDS ORDERED: MORPHINE 4 MG/ML SYR ONE (16:01)
--- NOTE | 2024-04-23 17:20 | P.HP ---
Certification for Inpatient Patient admitted to: Observation With expected LOS: <2 Midnights Patient will require the following post-hospital care: None Practitioner: I am a practitioner with admitting privileges, knowledge of patient current condition, hospital course, and medical plan of care. Services: Services provided to patient in accordance with Admission requirements found in Title 42 Section 412.3 of the Code of Federal Regulations Patient History Date of Service: 04/23/24 Reason for admission: Chest pain History of Present Illness: 64-year-old female with history of CAD with multiple stents, insulin-dependent diabetes, hypertension and rheumatoid arthritis presents to the emergency department with chief complaint of chest pain. She reports that prior to arrival while at rest she developed a onset of significant chest pain which she was unable to describe further with associated shortness of breath and dizziness which lasted for 2 to 3 minutes, after that she began to have paresthesias in her upper extremities bilaterally. She reports that she has some around 7 stents, her last heart catheterization was around a year ago she believes. She had a stress test and echo "a couple months ago" at Dr. Mcdonald's office. She was evaluated in the emergency department her initial high sensitive troponin was normal to chest x-ray was negative for acute findings. Of note patient is allergic to iodine, states that usually premedicate her before heart cath with Benadryl. Persist admit patient under observation for ACS rule out. Allergies Iodinated Contrast Media [Iodinated Contrast Media - Oral and] Allergy (Severe, Verified 03/13/17 21:21) Unknown iodine [Iodine] Allergy (Severe, Verified 04/11/16 14:05) Itching and swelling Home Medications: Gabapentin [Neurontin] 600 mg PO BID 02/25/20 Losartan Potassium [Cozaar] 50 mg PO DAILY 02/25/20 Clopidogrel Bisulfate [Plavix*] 75 mg PO DAILY #30 tablet 02/28/20 Methotrexate [Methotrexate*] 5 tab PO Q7D 03/05/20 Folic Acid 1 mg PO DAILY 04/13/21 Insulin Aspart 8 units SQ BREAKFAST 04/13/21 Insulin Degludec [Tresiba] 26 unit SQ BREAKFAST 04/13/21 Aspirin [Aspirin EC 81 MG] 81 mg PO DAILY 07/13/21 Nitroglycerin 0.4 mg SL UD PRN 07/13/21 Tofacitinib Citrate [Xeljanz Xr] 1 pill PO DAILY 07/13/21 Albuterol Inhaler [Ventolin Inhaler*] 2 puff IH Q6H PRN #1 hfa.aer.ad 07/15/21 Furosemide [Lasix*] 40 mg PO DAILY #30 tab 07/15/21 Ondansetron [Zofran (Odt)*] 4 mg PO Q6H PRN #20 tab 07/15/21 Potassium Chloride [K-Dur] 10 meq PO DAILY #30 tab.er.prt 07/15/21 Atorvastatin Calcium [Lipitor] 40 mg PO BEDTIME 30 Days #30 tab 10/16/21 Metoprolol Tartrate [Lopressor*] 1 tab PO BID 30 Days #60 tab 10/16/21 Hydrocodone/Acetaminophen [Hydrocodone-Acetamin 5-325 mg] 1 each PO Q6HP PRN 12/30/21 Hydrocodone 5/APAP 325 [[place] 5/325*] 1 tab PO Q6H PRN #20 tab 12/31/21 - Past Medical/Surgical History Diabetic: Yes -: Diabetes mellitus type 2, Insulin Dependent -: HTN -: Rheuamtoid Arthritis -: Degenerative disk and joint disease of the spine -: CAD -: Type 2 Diabetes -: Lap band 2009 -: x2 -: Bilateral knee replacement -: Cholecystectomy -: Stent x7 Psychosocial/ Personal History: She is , has 2 children. She does not work. - Family History Father -: Heart disease, Hypertension Mother -: Cancer Notes: esophageal - Social History Alcohol use: No CD- Drugs: No Caffeine use: Yes Place of Residence: Home Review of Systems 10-point ROS is otherwise unremarkable Cardiovascular: Chest Pain Physical Examination - Physical Exam General: Alert, In no apparent distress, Oriented x3 HEENT: Atraumatic, PERRLA, EOMI Neck: Supple, 2+ carotid pulse no bruit, No LAD, Without JVD or thyroid abnormality Respiratory: Clear to auscultation bilaterally, Normal air movement Cardiovascular: Regular rate/rhythm, Normal S1 S2 Gastrointestinal: Normal bowel sounds, No tenderness Musculoskeletal: No tenderness Integumentary: No rashes Neurological: Normal speech, Normal strength at 5/5 x4 extr, Normal tone, Normal affect - Studies Laboratory Data (last 24 hrs) 02/11/25 02/11/25 02/11/25 14:42 14:42 14:42 WBC 6.20 Hgb 14.1 Hct 41.2 Plt Count 237 PT 11.8 INR 1.13 Sodium 136 Potassium 4.3 BUN 19 H Creatinine 1.27 H Glucose 140 H Magnesium 2.3 Total Bilirubin 0.5 AST 17 ALT 22 Alkaline Phosphatase 113 Assessment and Plan - Plan Assessment: Chest pain rule out ACShistory of CAD with 7 stents Diabetes mellitus type 2insulin-dependent Hypertension Hyperlipidemia Rheumatoid arthritis Plan: Chest pain rule out ACShistory of CAD with 7 stents Cardiology consult Trend troponins and monitor on telemetry Last catheter in 1 year ago with stent placement at [facility] Last stress/echo a few months ago in clinic Continue aspirin, statin, metoprolol Diabetes mellitus type 2insulin-dependent ACHS Accu-Chek, sliding scale insulin Takes 30 units of Tresiba in the mornings at home Hypertension Hyperlipidemia Rheumatoid arthritis Medications when verified DVT PPX:lovenox Code status:Full Discharge Plan: Home Plan to discharge in: 24 Hours - Advance Directives Does patient have a Living Will: No Does patient have a Durable POA for Healthcare: No - Code Status/Comfort Care Code Status Assessed: Yes (Full code) Critical Care: No Time Spent Managing Pts Care (In Minutes): 65
[2024-04-23 18:15] VITALS: BMI 36.2
[2024-04-23] MEDS ORDERED: ONDANSETRON 4 MG/2 ML VIAL IV PRN (18:25)
[2024-04-23] MEDS ORDERED: GLUCAGON 1 MG/VIAL IM PRN (18:32)
[2024-04-23] MEDS ORDERED: D10W 125 ML IV PRN (18:32)
[2024-04-23] MEDS: METOPROLOL TAR 25 MG TAB PO SCH (20:49)
[2024-04-23] MEDS: ATORVASTATIN 40 MG TAB PO SCH (20:49)
[2024-04-23] MEDS: ENOXAPARIN 40 MG/0.4 ML SQ SCH (20:50)
[2024-04-23] MEDS: INSULIN REGULAR (HUMAN) 100 UNIT/ML SQ SCH (20:53)
[2024-04-23] MEDS ORDERED: HYDROCODONE/APAP 5/325 MG TAB PO PRN (21:00)
[2024-04-23 21:19] VITALS: O2SAT 100
[2024-04-23] MEDS: MORPHINE 2 MG/ML SYR IV PRN (21:44)
[2024-04-24 06:03] LABS: Absolute Eosinophils 0.2 K/uL (0-0.5); Absolute Lymphocytes (CBC) 1.8 K/uL (0.7-4.9); Absolute Monocytes 0.7 K/uL (0.1-1.3); Absolute Neutrophil 3.1 K/uL (1.8-8.0); Basophils % 0.6 % (0-1.3); Eosinophils % 3.4 % (0-4.4); Hematocrit 38.3 % (36.0-45.0); Hemoglobin 13.1 g/dL (12.0-15.0); Lymphocytes % 30.8 % (15.3-44.8); MCH 30.4 pg (27.0-35.0); MCHC 34.1 g/dL (32.0-36.0); MCV 89.1 fL (80-100); MPV 7.7 fL (7.6-11.3); Monocytes % 11.5 % (3.3-12.3); Neutrophils % 53.7 % (41.7-73.7); Nucleated Red Blood Cells % 0.1 % (0-0); Platelets 195 thou/uL (152-406); Red Cell Distribution Width 17.2 % (12.1-15.2)
[2024-04-24 06:29] LABS: Anion Gap 6.1 mEq/L (5.0-15.0); Potassium 4.1 mEq/L (3.5-5.1)
[2024-04-24] MEDS: ASPIRIN EC 81 MG TAB PO SCH (08:19)
[2024-04-24] MEDS: LOSARTAN POTASSIUM 50 MG TABLET PO SCH (08:19)
[2024-04-24] MEDS ORDERED: HOME MED 1 EA UNK (Losartan Potassium [Cozaar] 25 MG Tablet) PO SCH (09:00)
--- NOTE | 2024-04-24 09:51 | P.CNS ---
Date of Consult: 04/24/24 Chief Complaint: Chest pain History of Present Illness: Patient with PMH of CAD s/p PCI RCA with multiple stents, HTN, HLD, presented with chest pain/epigastric pain, sharp in nature, radiated to both arm and head, denies syncope, no ELLIS, no SOB, report that her BP was high in the 180s at time of episode. Allergies Iodinated Contrast Media [Iodinated Contrast Media - Oral and] Allergy (Severe, Verified 03/13/17 21:21) Unknown iodine [Iodine] Allergy (Severe, Verified 04/11/16 14:05) Itching and swelling Home medications list reviewed: Yes Home Medications: Gabapentin [Neurontin] 600 mg PO BID 02/25/20 Losartan Potassium [Cozaar] 50 mg PO DAILY 02/25/20 Clopidogrel Bisulfate [Plavix*] 75 mg PO DAILY #30 tablet 02/28/20 Methotrexate [Methotrexate*] 5 tab PO Q7D 03/05/20 Folic Acid 1 mg PO DAILY 04/13/21 Insulin Aspart 8 units SQ BREAKFAST 04/13/21 Insulin Degludec [Tresiba] 26 unit SQ BREAKFAST 04/13/21 Aspirin [Aspirin EC 81 MG] 81 mg PO DAILY 07/13/21 Nitroglycerin 0.4 mg SL UD PRN 07/13/21 Tofacitinib Citrate [Xeljanz Xr] 1 pill PO DAILY 07/13/21 Albuterol Inhaler [Ventolin Inhaler*] 2 puff IH Q6H PRN #1 hfa.aer.ad 07/15/21 Furosemide [Lasix*] 40 mg PO DAILY #30 tab 07/15/21 Ondansetron [Zofran (Odt)*] 4 mg PO Q6H PRN #20 tab 07/15/21 Potassium Chloride [K-Dur] 10 meq PO DAILY #30 tab.er.prt 07/15/21 Atorvastatin Calcium [Lipitor] 40 mg PO BEDTIME 30 Days #30 tab 10/16/21 Metoprolol Tartrate [Lopressor*] 1 tab PO BID 30 Days #60 tab 10/16/21 Hydrocodone/Acetaminophen [Hydrocodone-Acetamin 5-325 mg] 1 each PO Q6HP PRN 12/30/21 Hydrocodone 5/APAP 325 [[place] 5/325*] 1 tab PO Q6H PRN #20 tab 10/21/22 - Past Medical/Surgical History Diabetic: Yes -: Diabetes mellitus type 2, Insulin Dependent -: HTN -: Rheuamtoid Arthritis -: Degenerative disk and joint disease of the spine -: CAD -: Type 2 Diabetes -: Lap band 2009 -: x2 -: Bilateral knee replacement -: Cholecystectomy -: Stent x7 Psychosocial/ Personal History: She is , has 2 children. She does not work. - Family History Father Medical History: Heart disease, Hypertension Mother History Unknown: Yes Medical History: Cancer Notes: esophageal - Social History Smoking Status: Current every day smoker Alcohol use: No CD- Drugs: No Caffeine use: Yes Place of Residence: Home Review of Systems 10-point ROS is otherwise unremarkable Physical Examination Temp Pulse Resp BP Pulse Ox 98.0 F 57 18 147/69 H 96 04/24/24 08:00 04/24/24 08:15 04/24/24 09:02 04/24/24 08:00 04/24/24 09:02 General: Alert, In no apparent distress HEENT: Atraumatic, PERRLA, Mucous membr. moist/pink, EOMI, Sclerae nonicteric Neck: Supple, 2+ carotid pulse no bruit, No LAD, Without JVD or thyroid abnormality Respiratory: Clear to auscultation bilaterally, Normal air movement Cardiovascular: Regular rate/rhythm, Normal S1 S2 Gastrointestinal: Normal bowel sounds, No tenderness Musculoskeletal: No tenderness Integumentary: No rashes Neurological: Normal gait, Normal speech, Normal tone, Normal affect Lymphatics: No axilla or inguinal lymphadenopathy Laboratory Data (last 24 hrs) 04/23/24 04/23/24 04/23/24 14:42 14:42 14:42 WBC 6.20 Hgb 14.1 Hct 41.2 Plt Count 237 PT 11.8 INR 1.13 Sodium 136 Potassium 4.3 BUN 19 H Creatinine 1.27 H Glucose 140 H Magnesium 2.3 Total Bilirubin 0.5 AST 17 ALT 22 Alkaline Phosphatase 113 - Problems (1) Chest pain, rule out acute myocardial infarction Current Visit: No Status: Acute Plan: Patient with PMH of CAD s/p PCI RCA with multiple stents, chest pain is atypical, EKG is negative for ischemia, Troponin x 3 sets are negative, patient had a recent stress test and echo at office and both were normal continue ASA and Plavix continue metoprolol and losartan no further inpatient cardiac work up needed follow up in office for event monitor (2) Hyperlipidemia Current Visit: No Status: Chronic Plan: continue lipitor 40 mg daily outpatient lipid panel Qualifiers: Hyperlipidemia type: unspecified Qualified Code(s): E78.5 - Hyperlipidemia, unspecified (3) Hypertension Current Visit: No Status: Chronic Plan: continue metoprolol and losartan present BP log at office, might benefit from Imdur if BP is high at office. Qualifiers: Hypertension type: primary hypertension Qualified Code(s): I10 - Essential (primary) hypertension
[2024-04-24] MEDS: LORazepam 2 MG/ML VIAL ONE (11:34)
--- NOTE | 2024-04-24 11:45 | EKG ---
Test Date: 2024-04-23 Test Time: 13:53:21 Retail Banking Manager: TM MEASUREMENT RESULTS: Intervals: Rate: 56 NH: 152 QRSD: 88 QT: 450 QTc: 434 [place]: P: 64 NH: 152 QRS: 32 T: 95 INTERPRETIVE STATEMENTS: Sinus bradycardia ST & T wave abnormality, consider lateral ischemia Abnormal ECG Compared to ECG 02/29/2024 11:43:59 ST (T wave) deviation now present Possible ischemia now present Sinus rhythm no longer present Electronically Signed On 04-24-24 11:44:08 CHIEF SPECIALIST LEED by Elliott Hamilton
[2024-04-24] MEDS: LORazepam 2 MG/ML VIAL IV ONE (12:00)
--- NOTE | 2024-04-24 12:29 | RAD REPORT ---
EXAMINATION: MRI BRAIN WITHOUT CONTRAST CLINICAL INDICATION: CVA/ataxia TECHNIQUE: Multiplanar multisequence MR images of the brain were obtained without intravenous contras t. Unless otherwise specified, incidental findings do not require dedicated imaging follow-up. COMPARISON: 2013 MRI FINDINGS: Mild abnormal signal within periventricular, deep and subcortical white matter probably ischemic barbara nges secondary to small vessel disease. Abnormal signal left parietal lobe compatible with an old infarct. Diffusion weighted/ADC mapping does not demonstrate evidence of an acute infarction. Ventricles are normal caliber. No extra-axial fluid collection. No fluid within the sinuses/mastoid seen IMPRESSION: No acute intracranial abnormalities displayed
[2024-04-24 13:44] VITALS: BP 124/59; TEMP 97.6
--- NOTE | 2024-04-24 15:38 | P.DS ---
Admission Date: 04/23/24 Discharge Date: 04/24/24 Disposition: ROUTINE DISCHARGE Discharge Condition: GOOD Reason for Admission: Chest pain Brief History of Present Illness: 64-year-old female with history of CAD with multiple stents, insulin-dependent diabetes, hypertension and rheumatoid arthritis presents to the emergency department with chief complaint of chest pain. She reports that prior to arrival while at rest she developed a onset of significant chest pain which she was unable to describe further with associated shortness of breath and dizziness which lasted for 2 to 3 minutes, after that she began to have paresthesias in her upper extremities bilaterally. She reports that she has some around 7 stents, her last heart catheterization was around a year ago she believes. She had a stress test and echo "a couple months ago" at Dr. Mcdonald's office. She was evaluated in the emergency department her initial high sensitive troponin was normal to chest x-ray was negative for acute findings. Of note patient is allergic to iodine, states that usually premedicate her before heart cath with Benadryl. Persist admit patient under observation for ACS rule out. Hospital Course: Assessment: Chest pain rule out ACShistory of CAD with 7 stents Diabetes mellitus type 2insulin-dependent Hypertension Hyperlipidemia Rheumatoid arthritis Patient was admitted to the hospital for episodic chest pain. Her troponins were negative x 3, she was monitored on telemetry without any significant arrhythmias. She was seen by cardiology who also evaluated her, she had a recent stress test and echocardiogram in February 2024 which were for any acute findings, she last had a stents 3 years ago. Given her negative troponins and recent stress/echo she should be safe for outpatient discharge and follow-up, cardiology plans to see her in the clinic and arrange for Holter monitor as well as monitoring her blood pressure outpatient to determine if she may benefit with isosorbide. Patient also reported that she been having some frequent belching lately and reflux symptoms, prescription for 2 weeks of pantoprazole sent to her pharmacy. Continue your home medications as previously prescribed Follow-up with your primary care doctor in 1 to 2 weeks Follow-up with cardiology in 1 week please check your blood pressure daily and record it, bring your records to the gravel hauler office when he follow-up Vital Signs/Physical Exam: Temp Pulse Resp BP Pulse Ox 97.6 F 61 18 124/59 L 98 04/24/24 12:00 04/24/24 12:00 04/24/24 12:00 04/24/24 12:00 04/24/24 12:00 General: Alert, In no apparent distress, Oriented x3 HEENT: Atraumatic, PERRLA Neck: Supple, JVD not distended Respiratory: Clear to auscultation bilaterally, Normal air movement Cardiovascular: Regular rate/rhythm, Normal S1 S2 Gastrointestinal: Normal bowel sounds, No tenderness Musculoskeletal: No tenderness Integumentary: No rashes Neurological: Normal speech, Normal affect Laboratory Data at Discharge: WBC 5.80 thou/uL (4.3-10.9) 04/24/24 05:45 Hgb 13.1 g/dL (12.0-15.0) 04/24/24 05:45 Hct 38.3 % (36.0-45.0) 04/24/24 05:45 Plt Count 195 thou/uL (152-406) 04/24/24 05:45 PT 11.8 SECONDS (9.4-12.5) 04/23/24 14:42 INR 1.13 04/23/24 14:42 Sodium 137 mEq/L (136-145) 04/24/24 05:45 Potassium 4.1 mEq/L (3.5-5.1) 04/24/24 05:45 BUN 19 mg/dL (7-18) H 04/24/24 05:45 Creatinine 1.11 mg/dL (0.55-1.02) H 04/24/24 05:45 Glucose 143 mg/dL (74-106) H 04/24/24 05:45 Magnesium 2.3 mg/dL (1.6-2.4) 04/23/24 14:42 Total Bilirubin 0.5 mg/dL (0.2-1.0) 04/23/24 14:42 AST 17 U/L (15-37) 04/23/24 14:42 ALT 22 U/L (13-56) 04/23/24 14:42 Alkaline Phosphatase 113 U/L (45-117) 04/23/24 14:42 Home Medications: Gabapentin [Neurontin] 600 mg PO BID 02/25/20 Losartan Potassium [Cozaar] 50 mg PO DAILY 02/25/20 Clopidogrel Bisulfate [Plavix*] 75 mg PO DAILY #30 tablet 02/28/20 Methotrexate [Methotrexate*] 5 tab PO Q7D 03/05/20 Folic Acid 1 mg PO DAILY 04/13/21 Insulin Aspart 8 units SQ BREAKFAST 04/13/21 Insulin Degludec [Tresiba] 26 unit SQ BREAKFAST 04/13/21 Aspirin [Aspirin EC 81 MG] 81 mg PO DAILY 07/13/21 Nitroglycerin 0.4 mg SL UD PRN 07/13/21 Tofacitinib Citrate [Xeljanz Xr] 1 pill PO DAILY 07/13/21 Albuterol Inhaler [Ventolin Inhaler*] 2 puff IH Q6H PRN #1 hfa.aer.ad 07/15/21 Furosemide [Lasix*] 40 mg PO DAILY #30 tab 07/15/21 Ondansetron [Zofran (Odt)*] 4 mg PO Q6H PRN #20 tab 07/15/21 Potassium Chloride [K-Dur] 10 meq PO DAILY #30 tab.er.prt 07/15/21 Atorvastatin Calcium [Lipitor] 40 mg PO BEDTIME 30 Days #30 tab 10/16/21 Metoprolol Tartrate [Lopressor*] 1 tab PO BID 30 Days #60 tab 10/16/21 Hydrocodone/Acetaminophen [Hydrocodone-Acetamin 5-325 mg] 1 each PO Q6HP PRN 12/30/21 Hydrocodone 5/APAP 325 [[place] 5/325*] 1 tab PO Q6H PRN #20 tab 12/31/21 Pantoprazole [Protonix Tab*] 40 mg PO DAILY #14 tab 04/24/24 New Medications: Pantoprazole [Protonix Tab*] 40 mg PO DAILY #14 tab Physician Discharge Instructions: Patient was admitted to the hospital for episodic chest pain. Her troponins were negative x 3, she was monitored on telemetry without any significant arrhythmias. She was seen by cardiology who also evaluated her, she had a recent stress test and echocardiogram in February 2024 which were for any acute findings, she last had a stents 3 years ago. Given her negative troponins and recent stress/echo she should be safe for outpatient discharge and follow-up, cardiology plans to see her in the clinic and arrange for Holter monitor as well as monitoring her blood pressure outpatient to determine if she may benefit with isosorbide. Patient also reported that she been having some frequent belching lately and reflux symptoms, prescription for 2 weeks of pantoprazole sent to her pharmacy. Continue your home medications as previously prescribed Follow-up with your primary care doctor in 1 to 2 weeks Follow-up with cardiology in 1 week please check your blood pressure daily and record it, bring your records to the [facility]uler office when he follow-up Diet: AHA Activity: Ad anne Followup: Elliott Hamilton MD [ACTIVE - CAN ADMIT] - 1 Week Rocio Roberto PA [Primary Care Provider] - 1-2 Weeks Time spent managing pt's care (in minutes): 45
== END 2024-04-24 13:57 | disposition home or self-care (01) ==
LOC: ER 13:33 → ERHOLD 16:44 → 2ND 17:27
PROVIDERS: ADMIT Hospitalist; ATTEND Hospitalist
DX: R07.9 Chest pain, unspecified (principal); I25.10 Atherosclerotic heart disease of native coronary artery without angina pectoris; E11.9 Type 2 diabetes mellitus without complications; Z79.4 Long term (current) use of insulin; I10 Essential (primary) hypertension; M06.9 Rheumatoid arthritis, unspecified; R20.2 Paresthesia of skin; Z95.5 Presence of coronary angioplasty implant and graft
CPT/HCPCS: 93005; 85025 ×2; 80048 ×2; 36415; 83735; 85610; 82947 ×3; 80076; 84484 ×3; 71045; 70551; 96374; 99285; J1650 ×2; J2270 ×2; G0378

== ENCOUNTER 2024-06-01 21:02 | Inpatient (IN) | payer BC, OTHER ==
--- NOTE | 2024-06-01 21:53 | RAD REPORT ---
EXAM: CT brain without contrast HISTORY: Syncope COMPARISON: April 2024 TECHNIQUE: Multiple contiguous axial images were obtained and a CT of the brain without contrast.. Sagittal and coronal reconstruction performed. Automated exposure control, adjustment of the mA and/or kV according to patient size, and/or iterative reconstruction. Unless otherwise specified, incidental f indings do not require dedicated imaging follow-up FINDINGS: An intracranial bleed is not seen Ventricles are normal caliber No extra-axial fluid collection noted No significant hypodensity within the brain No fluid within the visualized sinuses or mastoids noted. IMPRESSION: No acute intracranial abnormality noted. If the patient continues to have symptoms to suggest an acute intracranial abnormality then MRI of th e brain would be recommended.
[2024-06-01 22:34] LABS: Absolute Eosinophils 0.2 K/uL (0-0.5); Absolute Lymphocytes (CBC) 0.3 K/uL (0.7-4.9); Absolute Monocytes 0.6 K/uL (0.1-1.3); Absolute Neutrophil 7.7 K/uL (1.8-8.0); Basophils % 0.5 % (0-1.3); Eosinophils % 2.4 % (0-4.4); Hematocrit 38.1 % (36.0-45.0); Hemoglobin 12.9 g/dL (12.0-15.0); Lymphocytes % 3.3 % (15.3-44.8); MCH 30.3 pg (27.0-35.0); MCHC 33.9 g/dL (32.0-36.0); MCV 89.6 fL (80-100); MPV 7.5 fL (7.6-11.3); Monocytes % 7.3 % (3.3-12.3); Neutrophils % 86.5 % (41.7-73.7); Platelets 202 thou/uL (152-406); RBC Red Blood Cell Count 4.25 M/uL (3.86-4.86); Red Cell Distribution Width 17.5 % (12.1-15.2)
[2024-06-01 22:38] LABS: PTT, Activated Partial Thromb 26.6 SECONDS (27.2-37.4); Protime INR 1.15
[2024-06-01] MEDS ORDERED: NA CHLORIDE 0.9% 1,000 ML ONE (22:46)
[2024-06-01 22:48] LABS: Albumin 2.9 g/dL (3.4-5.0); Albumin/Globulin Ratio 0.8 (1.1-1.8); Anion Gap 10.1 mEq/L (5.0-15.0); Bilirubin Direct 0.2 mg/dL (0-0.2); Bilirubin Indirect, Calculated 0.3 mg/dL (0.2-0.8); Bilirubin Total 0.5 mg/dL (0.2-1.0); Globulin 3.7 g/dL (2.3-3.5); Magnesium 1.8 mg/dL (1.6-2.4); Potassium 4.1 mEq/L (3.5-5.1); Protein, Total 6.6 g/dL (6.4-8.2); Troponin High Sensitivity 21.7 pg/mL (<58.9)
[2024-06-01 23:21] LABS: Band Neutrophils 18 % (0-1); Differential Total Cells Count 100; Eosinophils 4 % (0-3); Lymphocytes 3 % (15-42); Monocytes 3 % (0-10); Segmented Neutrophils 72 % (40-80)
[2024-06-01 23:22] LABS: Blood Morphology Comment NOT SEEN (NOT SEEN); Platelet Estimate ADEQ
[2024-06-02] MEDS ORDERED: ACETAMINOPHEN 325 MG TABLET PO PRN (00:33)
--- NOTE | 2024-06-02 00:33 | P.HP ---
Certification for Inpatient Patient admitted to: Inpatient With expected LOS: >2 Midnights Practitioner: I am a practitioner with admitting privileges, knowledge of patient current condition, hospital course, and medical plan of care. Services: Services provided to patient in accordance with Admission requirements found in Title 42 Section 412.3 of the Code of Federal Regulations Patient History Date of Service: 06/02/24 Reason for admission: Acute Gastroenteritis , Dehydration History of Present Illness: 64 yrs old Female with a past medical history of diabetes, hypertension, CAD, status post PCI, rheumatoid arthritis, came in with dizziness. She has multiple episodes of diarrhea,and vomiting x 1 and syncope. States the diarrhea and vomiting started this morning. She got dizzy and had a syncopal episode. Denies fever. Reports mild diffuse abdominal pain. Denies any chest pain or shortness of breath . No fever or chills No sick contacts Patient was seen in the ER and was admitted for further management of dehydration and acute gastroenteritis Allergies Iodinated Contrast Media [Iodinated Contrast Media - Oral and] Allergy (Severe, Verified 03/13/17 21:21) Unknown iodine [Iodine] Allergy (Severe, Verified 04/11/16 14:05) Itching and swelling Home medications list reviewed: Yes Home Medications: Gabapentin [Neurontin] 600 mg PO BID 02/25/20 Losartan Potassium [Cozaar] 50 mg PO DAILY 02/25/20 Clopidogrel Bisulfate [Plavix*] 75 mg PO DAILY #30 tablet 02/28/20 Methotrexate [Methotrexate*] 5 tab PO Q7D 03/05/20 Folic Acid 1 mg PO DAILY 04/13/21 Insulin Aspart 8 units SQ BREAKFAST 04/13/21 Insulin Degludec [Tresiba] 26 unit SQ BREAKFAST 04/13/21 Aspirin [Aspirin EC 81 MG] 81 mg PO DAILY 07/13/21 Nitroglycerin 0.4 mg SL UD PRN 07/13/21 Tofacitinib Citrate [Xeljanz Xr] 1 pill PO DAILY 07/13/21 Albuterol Inhaler [Ventolin Inhaler*] 2 puff IH Q6H PRN #1 hfa.aer.ad 07/15/21 Furosemide [Lasix*] 40 mg PO DAILY #30 tab 07/15/21 Ondansetron [Zofran (Odt)*] 4 mg PO Q6H PRN #20 tab 07/15/21 Potassium Chloride [K-Dur] 10 meq PO DAILY #30 tab.er.prt 07/15/21 Atorvastatin Calcium [Lipitor] 40 mg PO BEDTIME 30 Days #30 tab 10/16/21 Metoprolol Tartrate [Lopressor*] 1 tab PO BID 30 Days #60 tab 10/16/21 Hydrocodone/Acetaminophen [Hydrocodone-Acetamin 5-325 mg] 1 each PO Q6HP PRN 12/30/21 Hydrocodone 5/APAP 325 [[place] 5/325*] 1 tab PO Q6H PRN #20 tab 12/31/21 Pantoprazole [Protonix Tab*] 40 mg PO DAILY #14 tab 04/24/24 - Past Medical/Surgical History Diabetic: Yes Past Medical History: Reviewed- Non-Contributory -: Diabetes mellitus type 2, Insulin Dependent -: HTN -: Rheuamtoid Arthritis -: Degenerative disk and joint disease of the spine -: CAD -: Type 2 Diabetes Past Surgical History: Reviewed- Non-Contributory -: Lap band 2010 -: x2 -: Bilateral knee replacement -: Cholecystectomy -: Stent x7 -: Stent x7 Psychosocial/ Personal History: She is , has 2 children. She does not work. - Family History Family History: Reviewed- Non-Contributory - Family History Father -: Heart disease, Hypertension Mother -: Cancer Notes: esophageal - Social History Smoking Status: Never smoker Alcohol use: No CD- Drugs: No Caffeine use: Yes Review of Systems 10-point ROS is otherwise unremarkable Physical Examination - Vital Signs Temperature: 97.7 F Blood Pressure: 97/58 Pulse: 91 Respirations: 18 Pulse Ox (%): 94 - Physical Exam General: Alert, Oriented x3, Mild distress HEENT: Atraumatic, Normocephalic Neck: Supple, JVD not distended Respiratory: Clear to auscultation bilaterally, Normal air movement Cardiovascular: Regular rate/rhythm, Normal S1 S2 Capillary refill: <2 Seconds Gastrointestinal: Soft and benign, W/out hepatosplenomegaly Musculoskeletal: No clubbing, No swelling Integumentary: No breakdown, No tenderness/swelling Neurological: Normal speech, Normal strength at 5/5 x4 extr Lymphatics: No axilla or inguinal lymphadenopathy - Studies Laboratory Data (last 24 hrs) 06/01/24 06/01/24 06/01/24 22:10 22:10 22:10 WBC 8.90 Hgb 12.9 Hct 38.1 Plt Count 202 PT 13.0 INR 1.15 APTT 26.6 L Sodium 135 L Potassium 4.1 BUN 25 H Creatinine 1.49 H Glucose 143 H Magnesium 1.8 Total Bilirubin 0.5 AST 14 L ALT 15 Alkaline Phosphatase 78 Assessment and Plan - Plan Acute gastroenteritis Dehydration Monitor closely on telemetry Electrolytes monitor and replace accordingly Lactic acidosis noted Started on IV antibiotic as well Hypertension Antihypertensives titrated Continue home medications and titrate as needed Hyperlipidemia Continue statin Diabetes Insulin sliding scale Accu-Chek before every meal and at bedtime GI/DVT prophylaxis Advanced directive full code Discharge Plan: Home Plan to discharge in: 48 Hours - Advance Directives Does patient have a Living Will: No Does patient have a Durable POA for Healthcare: No - Code Status/Comfort Care Code Status: Full Code Time Spent Managing Pts Care (In Minutes): 52
--- NOTE | 2024-06-02 00:38 | ER ---
Nurse's Notes [facility] Name: Tamy Martinez Age: 64 yrs Sex: Female : 1960 Arrival Date: 06/01/2024 Time: 21:02 Bed 17 Private MD: Diagnosis: Weakness;Syncope;Diarrhea, unspecified Presentation: 06/01 21:00 Chief complaint: EMS states: dizziness, diarrhea. Coronavirus screen: Client denies kj2 travel out of the [place] in the last 14 days. Ebola Screen: No symptoms or risks identified at this time. Initial Sepsis Screen: Does the patient meet any 2 criteria? RR > 20 per min. Mean Arterial Pressure (MAP) < 65. No. Patient's initial sepsis screen is negative. Does the patient have a suspected source of infection? No. Patient's initial sepsis screen is negative. 21:00 Method Of Arrival: EMS: [facility] 22:29 Risk Assessment: Do you want to hurt yourself or someone else? Patient reports no kj2 desire to harm self or others. Onset of symptoms was June 01, 2024. 22:29 Acuity: HODAN 3 kj2 Triage Assessment: 21:00 General: Appears in no apparent distress. uncomfortable, Behavior is cooperative. Pain: kj2 Complains of pain in abdomen Pain currently is 6 out of 10 on a pain scale. Neuro: Level of Consciousness is awake, Oriented to person, place, time, situation. Cardiovascular: Patient's skin is warm and dry. Respiratory: Airway is patent Respiratory effort is unlabored. GI: Reports diarrhea. : No signs and/or symptoms were reported regarding the genitourinary system. Historical: - Allergies: 22:25 Iodinated Contrast Media - IV Dye; kj2 22:25 SHELLFISH; kj2 - PMHx: 22:25 Diabetes - IDDM; Hypertension; Myocardial infarction; Rheumatoid Arthritis; kj2 - PSHx: 22:25 B knee replacements; section; Cholecystectomy; Coronary Angioplasty; lap band; kj2 - Immunization history:: Adult Immunizations unknown. - Infectious Disease History:: Denies. - Social history:: Smoking status: unknown. Screenin:28 [facility] ED Fall Risk Assessment (Adult) History of falling in the last 3 months, kj2 including since admission No falls in past 3 months (0 pts) Confusion or Disorientation No (0 pts) Intoxicated or Sedated No (0 pts) Impaired Gait No (0 pts) Mobility Assist Device Used No (0 pt) Altered Elimination No (0 pt) Score/Fall Risk Level 0 - 2 = Low Risk Maintained a safe environment, Hourly rounding (assess needs \T\ fall precautionary measures) done. Abuse screen: Denies threats or abuse. Denies injuries from another. Nutritional screening: No deficits noted. Tuberculosis screening: No symptoms or risk factors identified. Assessment: 21:00 General: see triage assessment. kj2 22:00 Reassessment: Patient appears in no apparent distress at this time. Patient and/or [facility] family updated on plan of care and expected duration. Pain level reassessed. Patient is alert, oriented x 3, equal unlabored respirations, skin warm/dry/pink. 22:30 Reassessment: bedside report given to Kamla Milner RN. [facility] 06/02 00:00 Reassessment: Patient appears in no apparent distress at this time. No changes from 1 previously documented assessment. Patient and/or family updated on plan of care and expected duration. Pain level reassessed. Patient is alert, oriented x 3, equal unlabored respirations, skin warm/dry/pink. 01:00 Reassessment: Patient appears in no apparent distress at this time. No changes from vc1 previously documented assessment. Patient and/or family updated on plan of care and expected duration. Pain level reassessed. Patient is alert, oriented x 3, equal unlabored respirations, skin warm/dry/pink. 02:00 Reassessment: Patient appears in no apparent distress at this time. No changes from vc1 previously documented assessment. Patient and/or family updated on plan of care and expected duration. Pain level reassessed. Patient is alert, oriented x 3, equal unlabored respirations, skin warm/dry/pink. 03:00 Reassessment: Patient appears in no apparent distress at this time. No changes from vc1 previously documented assessment. Patient and/or family updated on plan of care and expected duration. Pain level reassessed. Patient is alert, oriented x 3, equal unlabored respirations, skin warm/dry/pink. Vital Signs: 06/01 21:00 BP 96 / 28; Pulse 73; Resp 20; Temp 99; Pulse Ox 100% ; Weight 85.73 kg; Height 5 ft. 0 kj2 in. ; 22:30 BP 91 / 50; Pulse 73; Resp 20; Pulse Ox 100% on R/A; kj2 06/02 00:00 BP 100 / 50; Pulse 84; Resp 17; Pulse Ox 99% ; vc1 00:27 BP 100 / 50; Pulse 85; Resp 18; Temp 99.7; kb 01:00 BP 116 / 45; Pulse 87; Resp 18; Pulse Ox 99% ; vc1 02:00 BP 121 / 56; Pulse 88; Resp 18; Pulse Ox 98% on R/A; vc1 03:00 BP 114 / 46; Pulse 81; Resp 17; Pulse Ox 97% ; vc1 06/01 21:00 Body Mass Index 36.91 (85.73 kg, 152.4 cm) kj2 ED Course: 06/01 21:00 Arm band placed on Patient placed in an exam room, on a stretcher. kj2 21:00 Patient has correct armband on for positive identification. Provided Education on: call kj2 light. 21:18 Patient arrived in ED. kmf 21:19 Chhaya Collado FNP-C is PHCP. kb 21:19 Andrew Garcia MD is Attending Physician. kb 21:19 Comfort Cordoba, MAY is Primary Nurse. kj2 21:46 CT Head Brain wo Cont In Process Unspecified. EDMS 22:29 Triage completed. kj2 23:07 CT Abd/Pelvis - Without Contrast In Process Unspecified. EDMS 06/02 00:37 Ramesh Russo MD is Hospitalizing Provider. kb 02:30 Inserted saline lock: 20 gauge in left EJ, using aseptic technique. ,using aseptic vc1 technique. inserted by Dr. Garcia Blood collected. Flushed with 10 mL NS. 03:15 Straight cath inserted, using sterile technique, 16 Fr. Specimen obtained. vc1 03:25 No provider procedures requiring assistance completed. Patient admitted, IV remains in vc1 place. Administered Medications: 06/01 22:49 Drug: NS 0.9% IV 1000 ml IV at 1000 ml once; to be given as a bolus over 60 minutes vc1 Route: IV; Rate: 1000 ml; Site: right forearm; 06/02 00:00 Follow up: IV Status: Completed infusion; IV Intake: 1000ml vc1 01:59 Drug: Acetaminophen PO 650 mg PO once Route: PO; vc1 02:21 Follow up: Response: No adverse reaction; Marked relief of symptoms vc1 01:59 Drug: Ondansetron IVP 4 mg IVP once; over 2 minutes Route: IVP; Site: left jugular; vc1 02:21 Follow up: Response: No adverse reaction; Marked relief of symptoms vc1 Medication: 06/01 21:00 VIS not applicable for this client. kj2 Intake: 06/02 00:00 IV: 1000ml; Total: 1000ml. vc1 Outcome: 06/01 22:28 Discharge instructions given to kj2 06/02 00:38 Decision to Hospitalize by Provider. kb 03:26 Admitted to Med/surg via stretcher, room 205, with chart, vc1 03:26 Condition: stable 03:26 Patient left the ED. vc1 Signatures: Dispatcher [employer] EDMS Chhaya Collado, TREVIN ADAMS-Kamla New RN RN vc1 Michelle Marie [facility] Comfort Cordoba RN RN kj2
--- NOTE | 2024-06-02 00:38 | EDPHYS ---
Physician Documentation [facility] Name: Tamy Martinez Age: 64 yrs Sex: Female : 1960 Arrival Date: 06/01/2024 Time: 21:02 Bed 17 Private MD: ED Physician Andrew Garcia HPI: 06/01 23:41 This 64 yrs old Female presents to ER via EMS with complaints of Dizziness. kb 23:41 Patient is a 64-year-old female who presents for multiple episodes of diarrhea, kb vomiting x 1 and syncope. States the diarrhea and vomiting started this morning. This evening she got dizzy and had a syncopal episode. Denies fever. Reports mild diffuse abdominal pain. Historical: - Allergies: 22:25 Iodinated Contrast Media - IV Dye; kj2 22:25 SHELLFISH; kj2 - PMHx: 22:25 Diabetes - IDDM; Hypertension; Myocardial infarction; Rheumatoid Arthritis; kj2 - PSHx: 22:25 B knee replacements; section; Cholecystectomy; Coronary Angioplasty; lap band; kj2 - Immunization history:: Adult Immunizations unknown. - Infectious Disease History:: Denies. - Social history:: Smoking status: unknown. ROS: 23:43 Constitutional: As per HPI kb Exam: 23:43 Constitutional: This is a well developed, well nourished patient who is awake, alert, kb and in no acute distress. Head/Face: Normocephalic, atraumatic. ENT: Moist Mucous membranes Cardiovascular: Regular rate Respiratory: Respirations even and unlabored. No increased work of breathing. Talking in full sentences Abdomen/GI: Soft, non-tender. No distention Skin: Warm, dry with normal turgor. Normal color. MS/ Extremity: Pulses equal, no cyanosis. Neurovascular intact. Full, normal range of motion. Neuro: Awake and alert, GCS 15, oriented to person, place, time, and situation. 23:43 ECG was reviewed by the Attending Physician. kb Vital Signs: 21:00 BP 96 / 28; Pulse 73; Resp 20; Temp 99; Pulse Ox 100% ; Weight 85.73 kg; Height 5 ft. 0 kj2 in. ; 22:30 BP 91 / 50; Pulse 73; Resp 20; Pulse Ox 100% on R/A; kj2 06/02 00:00 BP 100 / 50; Pulse 84; Resp 17; Pulse Ox 99% ; vc1 00:27 BP 100 / 50; Pulse 85; Resp 18; Temp 99.7; kb 01:00 BP 116 / 45; Pulse 87; Resp 18; Pulse Ox 99% ; vc1 02:00 BP 121 / 56; Pulse 88; Resp 18; Pulse Ox 98% on R/A; vc1 03:00 BP 114 / 46; Pulse 81; Resp 17; Pulse Ox 97% ; vc1 06/01 21:00 Body Mass Index 36.91 (85.73 kg, 152.4 cm) kj2 MDM: 06/01 21:19 Medical Screening Exam initiated kb 23:43 Data reviewed: vital signs, nurses notes. kb 23:43 Historians other than the Patient: EMS: [facility]. kb 06/02 00:33 Differential diagnosis: generalized weakness, hypovolemia, idiopathic dizziness, kb vertigo, abnormal electrolytes, dehydration, viral gastroenteritis. Consideration of Admission/Observation Patient was admitted/placed on observation. Escalation of care including admission/observation considered. Management of patient was discussed with the following: Hospitalist: Dr Russo accepts pt for admission. Counseling: I had a detailed discussion with the patient and/or guardian regarding the historical points, exam findings, and any diagnostic results supporting the discharge/admit diagnosis, lab results, radiology results, the need for further work-up and treatment in the hospital. 06/01 21:20 Order name: Basic Metabolic Panel; Complete Time: 22:55 kb 06/01 21:20 Order name: CBC with Diff; Complete Time: 23:25 kb 06/01 21:20 Order name: Hepatic Function; Complete Time: 22:55 kb 06/01 21:20 Order name: Magnesium; Complete Time: 22:55 kb 06/01 21:20 Order name: Protime (+inr); Complete Time: 22:39 kb 06/01 21:20 Order name: Ptt, Activated; Complete Time: 22:39 kb 06/01 21:20 Order name: Troponin High Sensitivity; Complete Time: 22:55 kb 06/01 21:20 Order name: Urinalysis w/ reflexes kb 06/01 22:43 Order name: Manual Differential; Complete Time: 23:25 EDMS 06/02 00:26 Order name: Blood Culture Adult (2) kb 06/02 00:26 Order name: Lactate w/ 2H reflex if indic. kb 06/02 00:38 Order name: Stool Culture kb 06/02 00:38 Order name: C.difficile kb 06/02 00:39 Order name: Urinalysis w/ reflexes EDMS 06/02 00:39 Order name: CBC with Automated Diff EDMS 06/02 00:39 Order name: CBC with Automated Diff EDMS 06/02 00:39 Order name: Comprehensive Metabolic Panel EDMS 06/02 00:39 Order name: Comprehensive Metabolic Panel EDMS 06/01 21:20 Order name: CT Head Brain wo Cont kb 06/01 22:46 Order name: CT Abd/Pelvis - Without Contrast kb 06/01 21:20 Order name: Cardiac monitoring; Complete Time: 22:50 kb 06/01 21:20 Order name: EKG - Nurse/Tech; Complete Time: 22:50 kb 06/01 21:20 Order name: IV Saline Lock; Complete Time: 22:50 kb 06/01 21:20 Order name: Labs collected and sent; Complete Time: 22:20 kb 06/01 21:20 Order name: NPO; Complete Time: 22:50 kb 06/01 21:20 Order name: O2 Per Protocol; Complete Time: 22:50 kb 06/01 21:20 Order name: O2 Sat Monitoring; Complete Time: 22:50 kb EC/22 23:43 Rate is 76 beats/min. Rhythm is regular. QRS [place] is Normal. ID interval is normal at kb 120 msec. QRS interval is normal at 92 msec. QT interval is normal at 452 msec. Administered Medications: 22:49 Drug: NS 0.9% IV 1000 ml IV at 1000 ml once; to be given as a bolus over 60 minutes vc1 Route: IV; Rate: 1000 ml; Site: right forearm; 06/02 00:00 Follow up: IV Status: Completed infusion; IV Intake: 1000ml vc1 01:59 Drug: Acetaminophen PO 650 mg PO once Route: PO; vc1 02:21 Follow up: Response: No adverse reaction; Marked relief of symptoms vc1 01:59 Drug: Ondansetron IVP 4 mg IVP once; over 2 minutes Route: IVP; Site: left jugular; vc1 02:21 Follow up: Response: No adverse reaction; Marked relief of symptoms vc1 Disposition: 23:51 Co-signature as Attending Physician, Andrew Garcia MD I agree with the assessment sp4 and plan of care. I reviewed the patient's care provided by Advanced Practice Provider \T\ agree w/ the diagnosis \T\ care plan. I personally saw the pt \T\ performed a substantive portion of the visit, incldng all aspects of the (History/Exam/Medical Decision Making). Disposition Summary: 06/02/24 00:38 Hospitalization Ordered Notes: Hospitalization Status: Observation kb Provider: Ramesh Russo Location: Telemetry/MedSurg (observation) kb Condition: Stable kb Problem: new kb Symptoms: are unchanged kb Bed/Room Type: Standard Room Assignment: 205(06/02/24 00:59) [facility] Diagnosis - Weakness kb - Syncope kb - Diarrhea, unspecified kb Forms: - Medication Reconciliation Form kb - SBAR form kb - Leadership Thank You Letter kb Signatures: Dispatcher [employer] EDUT Chhaya Collado FNP-C FNP-Ckb Calcote, Vanessa RN RN vc1 Andrew Garcia MD MD sp4 Michelle Marie [facility] Comfort [place], MAY RN kj2 Corrections: (The following items were deleted from the chart) 06/01 21:21 21:21 BASIC METABOLIC PANEL+C.LAB.BRZ ordered. EDMS EDMS 21:21 21:21 CBC+H.LAB.BRZ ordered. EDMS EDMS 21:21 21:21 HEPATIC FUNCTION+C.LAB.BRZ ordered. EDMS EDMS 21:21 21:21 MAGNESIUM+C.LAB.BRZ ordered. EDMS EDMS 21:21 21:21 PROTIME (+INR)+COAG.LAB.BRZ ordered. EDMS EDMS 21:21 21:21 PTT, ACTIVATED+COAG.LAB.BRZ ordered. EDMS EDMS 21:21 21:21 Troponin High Sensitivity+C.LAB.BRZ ordered. EDMS EDMS 21:21 21:21 Urinalysis+U.LAB.BRZ ordered. EDMS EDMS 21:21 21:21 Head Brain Wo Cont+CT.RAD.BRZ ordered. EDUT EDMS 06/02 00:38 00:38 Stool Culture+BA.LAB.BRZ ordered. EDMS EDMS 00:38 00:38 C.difficile [facility] Ag \T\ Toxin AB+LAB.BRZ ordered. EDMS EDMS 00:59 00:38 kb kmf
--- NOTE | 2024-06-02 01:17 | RAD REPORT ---
PROCEDURE: CT Abdomen and Pelvis Without Intravenous Contrast CLINICAL INDICATION: The patient is 64 years old and is Female; ABD PAIN TECHNIQUE: Axial computed tomography images of the abdomen and pelvis without intravenous contrast. Sagittal a nd coronal reformatted images were created and reviewed. This CT exam was performed using one or more of the following dose reduction techniques: automated exposure control, adjustment of the mA a nd/or kV according to patient size, and/or use of iterative reconstruction technique. DLP: 1397 mGy*cm COMPARISON: CT abdomen and pelvis dated 03/27/2022. FINDINGS: LUNG BASES: Unremarkable. No mass. No consolidation. ABDOMEN: LIVER: Unremarkable. GALLBLADDER AND BILE DUCTS: Cholecystectomy. No ductal dilation. PANCREAS: Unremarkable. No ductal dilation. SPLEEN: Multiple splenic granulomas. ADRENALS: Unremarkable. No mass. KIDNEYS AND URETERS: Questionable left renal mass measuring 2.4 cm. No obstructing stones. No hydronephrosis. STOMACH AND BOWEL: Prior ring gastroplasty. Mild sigmoid diverticulosis. No acute diverticulitis. No obstruction. PELVIS: APPENDIX: The appendix is seen and is within normal limits. BLADDER: Unremarkable. No stones. REPRODUCTIVE: Unremarkable as visualized. ABDOMEN and PELVIS: INTRAPERITONEAL SPACE: Unremarkable. No free air. No significant fluid collection. BONES/JOINTS: Diffuse osteopenia. Lower lumbar changes. No acute fracture. No dislocation. SOFT TISSUES: Unremarkable. VASCULATURE: Vascular calcifications. No abdominal aortic aneurysm. LYMPH NODES: Unremarkable. No enlarged lymph nodes. IMPRESSION: 1. No acute abdominal or pelvic abnormality. 2. Questionable left renal mass measuring 2.4 cm. ACR White Paper guidelines (Justina, et al. JA CR 2018; 15(2):264-273) recommend MRI or CT without and with intravenous contrast. 3. Prior ring gastroplasty. 4. Prior granulomatous disease. 5. Mild sigmoid diverticulosis. No acute diverticulitis. Electronically signed by: Fredis Cronin DO 06/02/2024 12:02 AM CDT RP 9 Due to temporary technical issues with the PACS/[employer] reporting system, reports are being dorene d by the in-house radiologist without review as a courtesy to ensure prompt reporting the interpreting radiologist is fully responsible for the content of the report. Transcribed Date/Time: 06/02/2024 1:17 AM
[2024-06-02] MEDS ORDERED: ONDANSETRON 4 MG/2 ML VIAL ONE (01:37)
[2024-06-02] MEDS ORDERED: ACETAMINOPHEN 325 MG TABLET ONE (01:37)
[2024-06-02 03:58] LABS: Specific Gravity 1.028 (1.005-1.030); Urine Bilirubin NEGATIVE (Negative); Urine Blood Negative (Negative); Urine Clarity Clear (Clear); Urine Color Light-Yellow (Yellow); Urine Glucose 4+ (Over) (Negative); Urine Ketones NEGATIVE (Negative); Urine Microscopic Reflex YN NO UMIC; Urine Nitrite NEGATIVE (Negative); Urine Protein NEGATIVE (Negative); Urine Urobilinogen Normal (Normal)
[2024-06-02] MEDS: HYDROCODONE/APAP 5/325 MG TAB PO PRN ×2 (04:38→18:44)
[2024-06-02] MEDS: NA CHLORIDE 0.9% 250 ML ONE (08:35)
[2024-06-02] MEDS: ENOXAPARIN 30 MG/0.3 ML SQ SCH (08:51)
[2024-06-02] MEDS: CEFTRIAXONE 1,000 MG in NA CHLORIDE 0.9% 50 ML IVPB SCH (08:51)
[2024-06-02 11:00] LABS: C.diff Antigen/Toxin Ag neg : Tox neg (NEG : NEG); CDIFF INTERNAL NEG CONTROL White Background (WHITE BKGD); STOOL CONSISTENCY Liquid/Semi-Solid
[2024-06-02] MEDS: NA CHLORIDE 0.9% 1,000 ML IV SCH (11:13)
[2024-06-02] MEDS: FOLIC ACID 1 MG TABLET PO SCH (11:14)
[2024-06-02] MEDS: METRONIDAZOLE 500mg IVPB 500 MG/100 ML BAG IV SCH (11:14)
[2024-06-02] MEDS: ASPIRIN EC 81 MG TAB PO SCH (11:14)
[2024-06-02] MEDS: GABAPENTIN 300 MG CAP PO SCH (11:14)
[2024-06-02] MEDS: MORPHINE 2 MG/ML SYR IV PRN (11:17)
[2024-06-02] MEDS: ONDANSETRON 4 MG/2 ML VIAL IV PRN (11:23)
[2024-06-02] MEDS: LOPERAMIDE HCL 2 MG CAPSULE PO PRN (13:04)
--- NOTE | 2024-06-02 14:45 | P.PN ---
Date of Service: 06/02/24 Patient seen and examined. Patient reports about 5 diarrhea bowel movement since this morning, about 10 yesterday. Stool is negative for C. difficile. Patient denies any abdominal pain Plan: Supportive measures with IV hydration-NS P.o. Imodium as needed. IV antibiotics. Monitor and optimize electrolytes.
[2024-06-02] MEDS: ATORVASTATIN 40 MG TAB PO SCH (20:58)
[2024-06-03 07:33] LABS: Absolute Eosinophils 0.5 K/uL (0-0.5); Absolute Lymphocytes (CBC) 1.2 K/uL (0.7-4.9); Absolute Monocytes 0.7 K/uL (0.1-1.3); Absolute Neutrophil 3.2 K/uL (1.8-8.0); Basophils % 0.7 % (0-1.3); Eosinophils % 8.1 % (0-4.4); Hematocrit 38.8 % (36.0-45.0); Hemoglobin 12.8 g/dL (12.0-15.0); Lymphocytes % 21.3 % (15.3-44.8); MCH 30.1 pg (27.0-35.0); MCHC 33.1 g/dL (32.0-36.0); MCV 90.8 fL (80-100); MPV 7.5 fL (7.6-11.3); Monocytes % 12.4 % (3.3-12.3); Neutrophils % 57.5 % (41.7-73.7); Nucleated Red Blood Cells % 0.2 % (0-0); Platelets 160 thou/uL (152-406); RBC Red Blood Cell Count 4.27 M/uL (3.86-4.86); Red Cell Distribution Width 17.5 % (12.1-15.2)
[2024-06-03 07:46] LABS: Albumin 2.6 g/dL (3.4-5.0); Albumin/Globulin Ratio 0.7 (1.1-1.8); Anion Gap 9.8 mEq/L (5.0-15.0); Bilirubin Total 0.4 mg/dL (0.2-1.0); Globulin 3.5 g/dL (2.3-3.5); Potassium 3.8 mEq/L (3.5-5.1); Protein, Total 6.1 g/dL (6.4-8.2)
--- NOTE | 2024-06-03 12:03 | EKG ---
Test Date: 2024-06-01 Test Time: 22:42:05 Reports Analysis Manager: MALORIE MEASUREMENT RESULTS: Intervals: Rate: 76 AK: 120 QRSD: 92 QT: 402 QTc: 452 [place]: P: 28 AK: 120 QRS: 53 T: 44 INTERPRETIVE STATEMENTS: Normal sinus rhythm Normal ECG Compared to ECG 04/23/2024 13:53:21 Sinus bradycardia no longer present ST (T wave) deviation no longer present Possible ischemia no longer present Electronically Signed On 06-03-24 11:59:58 CDT by Elliott Hamilton
--- NOTE | 2024-06-03 15:41 | P.PN ---
Subjective Date of Service: 06/03/24 Chief Complaint: Acute Gastroenteritis , Dehydration Patient reports improvement in her diarrhea. 3 diarrheal bowel movement so far since this morning. Currently denies abdominal pain No vomiting. She is tolerating clear liquid diet. Physical Examination - Vital Signs Temperature: 98.5 F Blood Pressure: 125/60 Pulse: 69 Respirations: 20 Pulse Ox (%): 96 Assessment And Plan - Plan Physical examination General: Alert and oriented x3, NAD, obese HEENT: Conjunctiva not pale, anicteric sclera Neck: Supple, no elevated JVD Heart: Heart sounds 1 and 2 normal, regular rhythm, normal rate, no pedal edema Lungs: Clear to auscultation bilaterally, adequate breath sounds bilaterally, no rhonchi or crackles. Abdomen: Soft, nondistended, nontender, normal bowel sounds. Extremities: No tenderness, no deformity Skin: Normal skin turgor, no rash, no nodules or ulcers. Neuro: No focal motor deficit. Normal speech. Psychiatry: Normal mood, no agitation. Diagnosis Acute gastroenteritis Acute kidney injury Essential hypertension Diabetes mellitus type 2 Plan Acute gastroenteritis Acute kidney injury Metabolic acidosis .NIMA resolved with IV hydration. Change IV fluid to IV half NS with bicarb drip. Monitor renal function. Diarrhea frequency is improving with antibiotics. Stool for C. difficile is negative. Continue IV Rocephin and Flagyl Monitor electrolytes and replace as needed Hypertension Patient is currently normotensive. Continue to hold home antihypertensives. Diabetes mellitus type II Insulin sliding scale for glucose management. Hold long-acting insulin for now. DVT prophylaxis: Lovenox Advanced directive: Full code
[2024-06-03] MEDS: NACHLORIDE 0.45% 1,000 ML with NA BICARB 8.4% 50 MEQ IV SCH (16:46)
[2024-06-04 05:27] VITALS: BMI 36.9
[2024-06-04 05:41] LABS: Absolute Basophils 0.1 K/uL (0-0.5); Absolute Eosinophils 0.5 K/uL (0-0.5); Absolute Lymphocytes (CBC) 1.2 K/uL (0.7-4.9); Absolute Monocytes 0.5 K/uL (0.1-1.3); Absolute Neutrophil 1.3 K/uL (1.8-8.0); Basophils % 1.4 % (0-1.3); Eosinophils % 14.6 % (0-4.4); Hemoglobin 12.2 g/dL (12.0-15.0); Lymphocytes % 33.5 % (15.3-44.8); MCH 30.8 pg (27.0-35.0); MCHC 34.8 g/dL (32.0-36.0); MCV 88.5 fL (80-100); MPV 7.3 fL (7.6-11.3); Monocytes % 14.7 % (3.3-12.3); Neutrophils % 35.8 % (41.7-73.7); Nucleated Red Blood Cells % 0.3 % (0-0); Platelets 162 thou/uL (152-406); RBC Red Blood Cell Count 3.95 M/uL (3.86-4.86)
[2024-06-04 06:04] LABS: Anion Gap 6.6 mEq/L (5.0-15.0); Potassium 3.6 mEq/L (3.5-5.1)
--- NOTE | 2024-06-04 08:59 | P.PN ---
Date of Service: 06/04/24 Subjective: diarrhea improving. Frequency improving but still very watery. ~5 episodes of diarrhea during the day yesterday. ~Only 1-2 episodes overnight. minimal appetite urinating without issues Physical Exam: GEN: Alert, oriented, NAD CV: Regular rate and rhythm, no edema Pulm: Nonlabored respirations on room air, clear bilaterally ABD: soft, mild discomfort to palpation, nondistended Neuro: Normal speech, normal affect Problem List: Acute gastroenteritis Left renal mass, incidental finding NIMA, resolved Hypertension NIDDM2 Acute gastroenteritis on admission, presents with multiple episodes of diarrhea associated with weakness, vomiting x1. Reportedly felt dizzy and had syncopal episode at the time. CT abdomen negative for any acute findings. Noted prior Gastroplasty/Granulomatous disease. Mild sigmoid diverticulosis. CT head negative for any acute findings. pain control, PRN imodium. 06/02 - continue IV flagyl / rocephin (06/02-) C. diff negative. Stool studies negative. Blood cx without growth. 06/04 - Continues with diarrhea but reports frequency improving. Urinating without issues. Minimal appetite. Left renal mass, incidental finding CT abdomen incidentally noted questionable left renal mass 2.4 cm NIMA, resolved secondary to dehydration / GI losses Resolved with IV hydration Hypertension confirm home meds, restart as appropriate NIDDM2 accu-cheks, SSI VTE: Lovenox Code: Full Dispo: Home, ~1-2 days Pending diarrhea further improves, tolerating diet without issues. Time Spent Managing Pts Care (In Minutes): 55
[2024-06-04] MEDS: ENOXAPARIN 40 MG/0.4 ML SQ SCH (10:01)
[2024-06-04] MEDS: MAGNESIUM SULFATE 1 gm IVPB 1 GM/100 ML BAG IV ONE (10:02)
[2024-06-04] MEDS: POTASSIUM CL SA 10 MEQ TAB PO ONE (10:02)
--- NOTE | 2024-06-05 09:25 | P.PN ---
Date of Service: 06/05/24 Subjective: reports less frequency of diarrhea but remains very watery abdominal cramps improving, not as severe. otherwise denies new / worsening problems afebrile Physical Exam: GEN: Alert, oriented, NAD CV: Regular rate and rhythm, no edema Pulm: Nonlabored respirations on room air, clear bilaterally ABD: soft, mild discomfort to palpation, nondistended Neuro: Normal speech, normal affect Problem List: Acute gastroenteritis Left renal mass, incidental finding NIMA, resolved Hypertension NIDDM2 Acute gastroenteritis on admission, presents with multiple episodes of diarrhea associated with weakness, vomiting x1. Reportedly felt dizzy and had syncopal episode at the time. CT abdomen negative for any acute findings. Noted prior Gastroplasty/Granulomatous disease. Mild sigmoid diverticulosis. CT head negative for any acute findings. pain control, PRN imodium. 06/02 - continue IV flagyl / rocephin (06/02-) C. diff negative. Stool studies negative. Blood cx without growth. 06/04 - Continues with diarrhea but reports frequency improving. Urinating without issues. 06/05 - reports less frequency of diarrhea but remains very watery, +lower abdominal cramps not as severe Overall slowly improving daily. Left renal mass, incidental finding CT abdomen incidentally noted questionable left renal mass 2.4 cm NIMA, resolved secondary to dehydration / GI losses Resolved with IV hydration Hypertension confirm home meds, restart as appropriate NIDDM2 accu-cheks, SSI VTE: Lovenox Code: Full Dispo: Home, ~1-2 days Pending diarrhea further improves Time Spent Managing Pts Care (In Minutes): 55
[2024-06-05 11:18] LABS: Anion Gap 8.8 mEq/L (5.0-15.0); Magnesium 1.7 mg/dL (1.6-2.4); Potassium 3.8 mEq/L (3.5-5.1)
[2024-06-06 06:10] LABS: Anion Gap 8.7 mEq/L (5.0-15.0); Magnesium 1.7 mg/dL (1.6-2.4); Potassium 3.7 mEq/L (3.5-5.1)
--- NOTE | 2024-06-06 08:53 | P.DS ---
Admission Date: 06/02/24 Discharge Date: 06/06/24 Disposition: ROUTINE DISCHARGE Discharge Condition: GOOD Reason for Admission: Acute Gastroenteritis , Dehydration Brief History of Present Illness: 64yo F, PMH: diabetes, hypertension, CAD, status post PCI, rheumatoid arthritis Patient came in with dizziness. She has multiple episodes of diarrhea,and vomiting x 1 and syncope. States the diarrhea and vomiting started this morning. She got dizzy and had a syncopal episode. Denies fever. Reports mild diffuse abdominal pain. Denies any chest pain or shortness of breath. No fever or chills. No sick contacts. Patient was seen in the ER and was admitted for further management of dehydration and acute gastroenteritis Hospital Course: Problem List: Acute gastroenteritis, suspect viral Left renal mass, incidental finding NIMA, resolved Hypertension NIDDM2 Physician discharge instructions: Patient presented with multiple episodes of diarrhea associated with weakness/fatigue secondary to suspected acute viral gastroenteritis. CT abdomen was negative for any acute findings but did note prior Gastroplasty/Granulomatous disease, mild sigmoid diverticulosis, and a questionable left renal mass 2.[address] head was negative for any acute findings. Patient had improvement with IV antibiotics and IV hydration. Stool studies/cultures were negative. C. diff was negative. Blood cultures have been without growth since 06/02. Diarrhea frequency and volume slowly improved with time, starting to get some more texture by day of discharge. Patient was feeling better, nausea/vomiting improved and deemed stable for discharge. Patient tolerating diet on day of discharge without issues. Patient is to complete 5 more days of Augmentin to cover possible bacterial gastroenteritis. Follow up with PCP for further management and consider routine colonoscopy in the near future as patient reports shes never had one before. CT abdomen did incidentally noted a questionable left renal mass 2.[address] abd/pelvis done here was >3 years ago and didn't note this finding. Advised patient to follow up with PCP for further discussion and to consider outpatient MRI or CT without and with IV contrast to further evaluate mass Her renal function remained normal/stable. Medications: Augmentin x5 days Zofran as needed for nausea Lactinex probiotic for 5 days while taking Augmentin Follow up: PCP 3-5 days Please call to schedule / confirm appointments CT abd/pelvis (06/01/24) Impression: 1. No acute abdominal or pelvic abnormality. 2. Questionable left renal mass measuring 2.4 cm. ACR White Paper guidelines (Herts, et al. JACR 2018; 15(2):264-273) recommend MRI or CT without and with intravenous contrast for further evaluation. 3. Prior ring gastroplasty. 4. Prior granulomatous disease. 5. Mild sigmoid diverticulosis. No acute diverticulitis. Physical Exam: GEN: Alert, oriented, NAD CV: Regular rate and rhythm, no edema Pulm: Nonlabored respirations on room air, clear bilaterally ABD: soft, non-tender, nondistended Neuro: Normal speech, normal affect Vital Signs/Physical Exam: Temp Pulse Resp BP Pulse Ox 97.8 F 70 16 154/70 H 93 06/06/24 04:00 06/06/24 04:00 06/06/24 04:00 06/06/24 04:00 06/06/24 04:00 Laboratory Data at Discharge: WBC 3.70 thou/uL (4.3-10.9) L 06/04/24 05:18 Hgb 12.2 g/dL (12.0-15.0) 06/04/24 05:18 Hct 35.0 % (36.0-45.0) L 06/04/24 05:18 Plt Count 162 thou/uL (152-406) 06/04/24 05:18 PT 13.0 SECONDS (10-13.0) 06/01/24 22:10 INR 1.15 06/01/24 22:10 APTT 26.6 SECONDS (27.2-37.4) L 06/01/24 22:10 Sodium 141 mEq/L (136-145) 06/06/24 04:45 Potassium 3.7 mEq/L (3.5-5.1) 06/06/24 04:45 BUN 6 mg/dL (7-18) L 06/06/24 04:45 Creatinine 0.82 mg/dL (0.55-1.02) 06/06/24 04:45 Glucose 134 mg/dL (74-106) H 06/06/24 04:45 Magnesium 1.7 mg/dL (1.6-2.4) 06/06/24 04:45 Total Bilirubin 0.4 mg/dL (0.2-1.0) 06/03/24 07:17 AST 16 U/L (15-37) 06/03/24 07:17 ALT 17 U/L (13-56) 06/03/24 07:17 Alkaline Phosphatase 65 U/L (45-117) 06/03/24 07:17 Home Medications: Gabapentin [Neurontin] 600 mg PO BID 02/25/20 Losartan Potassium [Cozaar] 25 mg PO DAILY 02/25/20 Methotrexate [Methotrexate*] 5 tab PO Q7D 03/05/20 Folic Acid 1 mg PO DAILY 04/13/21 Insulin Aspart See Protocol SQ BREAKFAST 04/13/21 Insulin Degludec [Tresiba] 30 unit SQ BREAKFAST 04/13/21 Aspirin [Aspirin EC 81 MG] 81 mg PO DAILY 07/13/21 Atorvastatin Calcium [Lipitor] 40 mg PO BEDTIME 30 Days #30 tab 10/16/21 Metoprolol Tartrate [Lopressor*] 1 tab PO BID 30 Days #60 tab 10/16/21 Hydrocodone 5/APAP 325 [[place] 5/325*] 1 tab PO Q6H PRN #20 tab 12/31/21 Amox/Clavulanate [Augmentin 875-125 Tab] 1 tab PO BID 5 Days #10 tab 06/06/24 New Medications: Amox/Clavulanate [Augmentin 875-125 Tab] 1 tab PO BID 5 Days #10 tab Physician Discharge Instructions: Physician discharge instructions: Patient presented with multiple episodes of diarrhea associated with weakness/fatigue secondary to suspected acute viral gastroenteritis. CT abdomen was negative for any acute findings but did note prior Gastroplasty/Granulomatous disease, mild sigmoid diverticulosis, and a questionable left renal mass 2.[address] head was negative for any acute findings. Patient had improvement with IV antibiotics and IV hydration. Stool studies/cultures were negative. C. diff was negative. Blood cultures have been without growth since 06/02. Diarrhea frequency and volume slowly improved with time, starting to get some more texture by day of discharge. Patient was feeling better, nausea/vomiting improved and deemed stable for discharge. Patient tolerating diet on day of discharge without issues. Patient is to complete 5 more days of Augmentin to cover possible bacterial gastroenteritis. Follow up with PCP for further management and consider routine colonoscopy in the near future as patient reports shes never had one before. CT abdomen did incidentally noted a questionable left renal mass 2.[address] abd/pelvis done here was >3 years ago and didn't note this finding. Advised patient to follow up with PCP for further discussion and to consider outpatient MRI or CT without and with IV contrast to further evaluate mass Her renal function remained normal/stable. Medications: Augmentin x5 days Zofran as needed for nausea Lactinex probiotic for 5 days while taking Augmentin Follow up: PCP 3-5 days Please call to schedule / confirm appointments CT abd/pelvis (06/01/24) Impression: 1. No acute abdominal or pelvic abnormality. 2. Questionable left renal mass measuring 2.4 cm. ACR White Paper guidelines (Herjonathan, et al. JACR 2018; 15(2):264-273) recommend MRI or CT without and with intravenous contrast for further evaluation. 3. Prior ring gastroplasty. 4. Prior granulomatous disease. 5. Mild sigmoid diverticulosis. No acute diverticulitis. Followup: Rocio Roberto PA [Primary Care Provider] - 1-2 Weeks Time spent managing pt's care (in minutes): 45
[2024-06-06] MEDS: POTASSIUM 25 MEQ EFFERV TAB PO ONE (09:13)
[2024-06-06] MEDS: MAGNESIUM SULFATE 1 gm IVPB 1 GM/100 ML BAG IV ONE (09:14)
[2024-06-06 12:23] VITALS: BP 148/67; TEMP 98.5
[2024-06-06 12:32] VITALS: O2SAT 98
== END 2024-06-06 12:31 | disposition home or self-care (01) | DRG 392 ==
LOC: ER 21:02 → ERHOLD 06-02 00:33 → 2ND 06-02 02:49
PROVIDERS: ADMIT Family Medicine; ATTEND Hospitalist
DX: A08.4 Viral intestinal infection, unspecified (principal); E87.20 Acidosis, unspecified; N17.9 Acute kidney failure, unspecified; E86.0 Dehydration; M06.9 Rheumatoid arthritis, unspecified; E66.9 Obesity, unspecified; E78.5 Hyperlipidemia, unspecified; E11.9 Type 2 diabetes mellitus without complications; N28.89 Other specified disorders of kidney and ureter; I25.10 Atherosclerotic heart disease of native coronary artery without angina pectoris; I25.2 Old myocardial infarction; K57.30 Diverticulosis of large intestine without perforation or abscess without bleeding; Z79.02 Long term (current) use of antithrombotics/antiplatelets; Z79.4 Long term (current) use of insulin; Z79.899 Other long term (current) drug therapy; Z91.041 Radiographic dye allergy status; Z91.048 Other nonmedicinal substance allergy status; Z96.653 Presence of artificial knee joint, bilateral; Z90.49 Acquired absence of other specified parts of digestive tract; Z95.1 Presence of aortocoronary bypass graft; Z68.35 Body mass index [BMI] 35.0-35.9, adult
CPT/HCPCS: 36415; 51702; 70450; 74176; 80048; 80053; 80076; 81003; 82947; 83605; 83735; 84484; 85025; 85610; 85730; 87040; 87045; 87046; 87324; 93005; 96361; 96374; 99285; J0696; J1650; J2270; J2405; J3475; J7030; J7050

== ENCOUNTER 2024-07-02 20:18 | Emergency (ER) | payer BC, OTHER ==
--- NOTE | 2024-07-02 21:08 | RAD REPORT ---
EXAMINATION: XR LEFT WRIST CLINICAL INDICATION: PAIN TECHNIQUE: Multiple projections of the left wrist were obtained. COMPARISON: 04/07/2024 FINDINGS: Severe radiocarpal joint arthritic changes are present with [id number]. Degenerative cyst s are also present. Soft tissue swelling is seen along the dorsum of the wrist. Degenerative subluxation also seen involving second and third MTP joints. No acute fracture seen.
[2024-07-02] MEDS ORDERED: dexAMETHasone 10 MG/ML VIAL ONE (21:44)
[2024-07-02] MEDS ORDERED: HYDROCODONE/APAP 7.5/325 MG TAB ONE (21:44)
--- NOTE | 2024-07-02 22:02 | EDPHYS ---
Physician Documentation [facility] Name: Tamy Martinez Age: 64 yrs Sex: Female : 1960 Arrival Date: 07/02/2024 Time: 20:18 Bed 12 Private MD: ED Physician Iris Madrigal HPI: 07/02 22:08 This 64 yrs old Female presents to ER via Ambulatory with complaints of Hand Pain, Arm kb Pain, PT has h/o RA. 22:08 Pt is a 64 year old female who presents for pain to left wrist and hand that started kb this afternoon. Denies injury, trauma, fever. States she has a history of RA. Pain aggravated by movement and palpation. Historical: - Allergies: 20:42 Iodinated Contrast Media - IV Dye; cm10 20:42 SHELLFISH; cm10 - PMHx: 20:42 Diabetes - IDDM; Hypertension; Myocardial infarction; Rheumatoid Arthritis; cm10 - PSHx: 20:42 B knee replacements; section; Cholecystectomy; Coronary Angioplasty; lap band; cm10 - Immunization history:: Adult Immunizations up to date. - Infectious Disease History:: Denies. - Social history:: Smoking status: unknown. ROS: 22:07 Constitutional: As per HPI kb Exam: 22:07 Constitutional: This is a well developed, well nourished patient who is awake, alert, kb and in no acute distress. Head/Face: Normocephalic, atraumatic. ENT: Moist Mucous membranes Cardiovascular: Regular rate Respiratory: Respirations even and unlabored. No increased work of breathing. Talking in full sentences Skin: Warm, dry with normal turgor. Normal color. Neuro: Awake and alert, GCS 15, oriented to person, place, time, and situation. 22:07 Musculoskeletal/extremity: Extremities: grossly normal except: noted in the left wrist and left hand: decreased ROM, erythema, pain, swelling, tenderness, ROM: limited active range of motion due to pain, Circulation is intact in all extremities. Sensation intact. Vital Signs: 20:41 BP 139 / 38; Pulse 57; Resp 15; Temp 98.9; Pulse Ox 98% on R/A; Weight 85.73 kg; Height cm10 5 ft. 1 in. ; Pain 10/10; 20:41 Body Mass Index 35.71 (85.73 kg, 154.94 cm) cm10 20:41 Pain Scale: Adult cm10 MDM: 20:30 Medical Screening Exam initiated kb 22:07 Differential diagnosis: RA, gout, cellulitis, sprain. Data reviewed: vital signs, kb nurses notes. Counseling: I had a detailed discussion with the patient and/or guardian regarding the historical points, exam findings, and any diagnostic results supporting the discharge/admit diagnosis, radiology results, the need for outpatient follow up, a orthopedic surgeon, to return to the emergency department if symptoms worsen or persist or if there are any questions or concerns that arise at home. 07/02 20:47 Order name: Wrist Left (3 View) XRAY; Complete Time: 21:15 kb 07/02 22:01 Order name: Wrist Splint; Complete Time: 22:29 kb Administered Medications: 22:00 Drug: Hydrocodone-Acetaminophen PO (7.5 mg-325 mg) 1 tabs PO once Route: PO; br2 22:29 Follow up: Response: No adverse reaction br2 22:00 Drug: Dexamethasone IM 10 mg IM once Route: IM; Site: left gluteus; br2 22:29 Follow up: Response: No adverse reaction br2 22:19 Drug: Cephalexin PO 500 mg PO once Route: PO; br2 22:30 Follow up: Response: Medication administered at discharge. br2 Disposition Summary: 07/02/24 22:01 Discharge Ordered Notes: Location: Home kb Condition: Stable kb Diagnosis - Pain in left wrist kb Followup: kb - With: Emergency Department - When: As needed - Reason: Worsening of condition Followup: kb - With: Private Physician - When: 2 - 3 days - Reason: Recheck today's complaints, Continuance of care, Re-evaluation by your physician Discharge Instructions: - Discharge Summary Sheet kb - Wrist Pain, Adult, [id number] kb Forms: - Work release form kb - Medication Reconciliation Form kb - Antibiotic Education kb - Prescription Opioid Use kb - Patient Portal Instructions kb - Leadership Thank You Letter kb Prescriptions: - Cephalexin 500 mg Oral Capsule - take 1 capsule ORAL route every 8 hours for 10 days; 30 capsule; Refills: 0, kb Product Selection Permitted - Prednisone 20 mg Oral Tablet - take 1 tablet ORAL route once daily for 5 days; 5 tablet; Refills: 0, Product kb Selection Permitted - Diclofenac Sodium 75 mg Oral tablet, delayed release (enteric coated) - take 1 tablet ORAL route 2 times per day As needed; 30 tablet; Refills: 0, kb Product Selection Permitted Signatures: Dispatcher [employer] Chhaya Schaefer FNP-C FNP-Ckb Martinez, Clarissa, RN RN cm10 Cailin Mccartney RN RN br2
--- NOTE | 2024-07-02 22:02 | ER ---
Nurse's Notes [facility] Name: Tamy Martinez Age: 64 yrs Sex: Female : 1960 Arrival Date: 07/02/2024 Time: 20:18 Bed 12 Private MD: Diagnosis: Pain in left wrist Presentation: 07/02 20:41 Chief complaint: Patient states: Left wrist and hand pain onset today. Pt denies any cm10 trauma or injury. Coronavirus screen: Client denies travel out of the [place] in the last 14 days. Ebola Screen: Patient denies travel to an Ebola-affected area in the 21 days before illness onset. Initial Sepsis Screen: Does the patient meet any 2 criteria? No. Patient's initial sepsis screen is negative. Does the patient have a suspected source of infection? No. Patient's initial sepsis screen is negative. Risk Assessment: Do you want to hurt yourself or someone else? Patient reports no desire to harm self or others. Onset of symptoms was July 02, 2024. 20:41 Method Of Arrival: Ambulatory 10 20:41 Acuity: HODAN 4 cm10 Triage Assessment: 20:43 General: Appears uncomfortable, Behavior is cooperative. Pain: Complains of pain in cm10 dorsal aspect of left wrist Pain radiates to left arm Pain currently is 10 out of 10 on a pain scale. Neuro: No deficits noted. Level of Consciousness is awake, alert, obeys commands, Oriented to person, place, time, situation, Appropriate for age. Respiratory: No deficits noted. Airway is patent Respiratory effort is even, unlabored, Respiratory pattern is regular, symmetrical. Historical: - Allergies: 20:42 Iodinated Contrast Media - IV Dye; cm10 20:42 SHELLFISH; cm10 - PMHx: 20:42 Diabetes - IDDM; Hypertension; Myocardial infarction; Rheumatoid Arthritis; cm10 - PSHx: 20:42 B knee replacements; section; Cholecystectomy; Coronary Angioplasty; lap band; cm10 - Immunization history:: Adult Immunizations up to date. - Infectious Disease History:: Denies. - Social history:: Smoking status: unknown. Screenin:04 [facility] ED Fall Risk Assessment (Adult) History of falling in the last 3 months, br2 including since admission No falls in past 3 months (0 pts) Confusion or Disorientation No (0 pts) Intoxicated or Sedated No (0 pts) Impaired Gait No (0 pts) Mobility Assist Device Used No (0 pt) Altered Elimination No (0 pt) Score/Fall Risk Level 0 - 2 = Low Risk Oriented to surroundings. Abuse screen: Denies threats or abuse. Denies injuries from another. Nutritional screening: No deficits noted. Tuberculosis screening: No symptoms or risk factors identified. Assessment: 22:00 Reassessment: Patient is alert, oriented x 3, equal unlabored respirations, skin br2 warm/dry/pink. General: Appears uncomfortable, Behavior is cooperative. Pain: Complains of pain in left arm Pain currently is 10 out of 10 on a pain scale. Derm: Reports pain that is 10 out of 10 on a pain scale. Musculoskeletal: Reports pain in left arm. Vital Signs: 20:41 BP 139 / 38; Pulse 57; Resp 15; Temp 98.9; Pulse Ox 98% on R/A; Weight 85.73 kg; Height cm10 5 ft. 1 in. ; Pain 10/10; 20:41 Body Mass Index 35.71 (85.73 kg, 154.94 cm) cm10 20:41 Pain Scale: Adult cm10 ED Course: 20:19 Patient arrived in ED. [id number] 20:30 Chhaya Collado FNP-C is [facility]. kb 20:30 Iris Madrigal MD is Attending Physician. kb 20:42 Triage completed. cm10 20:43 Arm band placed on right wrist. Patient placed in waiting room. cm10 21:02 Wrist Left (3 View) XRAY In Process Unspecified. EDMS 22:04 Patient has correct armband on for positive identification. Bed in low position. Call br2 light in reach. Provided Education on: plan of care. 22:28 Cailin Mccartney, RN is Primary Nurse. br2 22:28 Velcro wrist splint applied to left wrist. br2 22:31 No provider procedures requiring assistance completed. Patient did not have IV access br2 during this emergency room visit. Administered Medications: 22:00 Drug: Hydrocodone-Acetaminophen PO (7.5 mg-325 mg) 1 tabs PO once Route: PO; br2 22:29 Follow up: Response: No adverse reaction br2 22:00 Drug: Dexamethasone IM 10 mg IM once Route: IM; Site: left gluteus; br2 22:29 Follow up: Response: No adverse reaction br2 22:19 Drug: Cephalexin PO 500 mg PO once Route: PO; br2 22:30 Follow up: Response: Medication administered at discharge. br2 Outcome: 22:01 Discharge ordered by . kb 22:31 Discharged to home ambulatory, br2 22:31 Condition: stable 22:31 Discharge instructions given to patient, Instructed on discharge instructions, follow up and referral plans. Demonstrated understanding of instructions, follow-up care, medications, Prescriptions given X 3, 22:32 Patient left the ED. br2 Signatures: Dispatcher [employer] EDMS Chhaya Collado, MEMORIAL ADVISER-C MEMORIAL ADVISER-CkZoraida Quintanilla jj6 Sharon Ramsey RN RN cm10 Cailin Mccartney RN RN br2
[2024-07-02] MEDS ORDERED: CEPHALEXIN 250 MG CAP ONE (22:11)
[2024-07-02 22:37] VITALS: BP 139/38; TEMP 98.9; O2SAT 98
== END 2024-07-02 22:32 | disposition home or self-care (01) ==
LOC: ER 20:18
DX: M25.532 Pain in left wrist (principal)
CPT/HCPCS: 73110; 96372; 99284; J1100

== ENCOUNTER 2024-10-19 15:27 | Emergency (ER) | payer BC, OTHER ==
--- OUTSIDE RECORDS SUMMARY | 2024-10-19 15:46 | XMS REPORT | Continuity of Care Document ---
Author Name Unknown Address [address] [facility] [address] [place] [address] [facility] Address [address] [facility] [address] [place] [address] Care Team Providers Care Traffic Controller Cable Name Role Phone No ANP, Pcp [facility] Primary Care Physician Christiano Núñez Attending Clinician Unavailable GEMINI ALEXANDER Attending Clinician UnavailLUCIUS Dowling Attending Clinician Unavailable CARMELINA CHAIDEZ Attending Clinician Unavailable RIA HINOJOSA Attending Clinician UnaROCIO Jolley Attending Clinician Unavailable Mary RYAN, Carmelina Attending Clinician [phone] Lucius Fraser MD Attending Clinician +[phone] Rocio Del Rio Attending Clinician + [phone] Ji Mcintosh MD Attending Clinician [phone] LEXI COBB Attending Clinician UnavaCORDELL Pedroza Attending Clinician Unavailable CORDELL MANLEY Attending Clinician Unavailable Jan Gasca DO Attending Clinician + Lab Ang - Db Attending Clinician Unavailable Doctor Unassigned, Heron Attending Clinician U Santi Vidal MD Attending Clinician +[phone] Pcp, Patient Does Not Have A Attending Clinician + SANTI WHITEHEAD Attending Clinician Unavailable Yokasta RYAN, Telly Pope Attending Clinician + [phone] SKIP AGUILAR Attending Clinician Ailyn harmony Hernandez MD, Dutch Milner Attending Clinician [phone] Richie Mckinley DO Attending Clinician [phone] Barber RYAN, Nayan Chan Attending Clinician +[phone] Dago Andrade MD Attending Clinician +- [phone] JENNI WATT Attending Clinician Unavailab charles Watt NP, Jenni Attending Clinician [phone] Telly Templeton MD Attending Clinician +[phone] Carmelnia Chaidez MD Attending Clinician [phone] MARIE CARRANZA Attending Clinician Unavailable Doctor Unassigned, Heron Attending Clinician U Lucius Maya MD Attending Clinician + [phone] Divine PEÑA, Ria Vaz Attending Clinician SHEREEN BEJARANO Attending Clinician Unavailable Gemini Alexander MD Attending Clinician + [phone] Rocio Del Rio Attending Clinician + [phone] ZARI JOHNSON Attending Clinician Unavaila lester MEDINA, PAYTON Attending Clinician Unavailable DANISH, PAYTON Attending Clinician Unavailable JERARDO WARNER Attending Clinician Unavailable JERARDO WARNER Attending Clinician Unavailable Petra RYAN, Abbey Attending Clinician [phone] AMELIA CANDELARIA Attending Clinician Unavailable AMELIA CANDELARIA Attending Clinician Unavailable Mike RYAN, Rachel K.HGhassan Attending Clinician +[phone] Zari Roberts Attending Clinician ABBEY NEGRETE Attending Clinician Unavailable ASHLEY MARKHAM Attending Clinician UnavailANY García Attending Clinician Unavailable LUCIANO TOMLINSON Attending Clinician Unavailab LUCIANO Anderson Attending Clinician Unavailab charles Mcintosh MD, Ji Attending Clinician [phone] ROBERT CONSTANTINO Attending Clinician Unav lee Cullen RN, Sherita Jacob Attending Clinician Unav ailable Lab, Ang - Db Attending Clinician Unavailable Teena Weinberg MA Attending Clinician Unavaila THEO Valentino Attending Clinician Unavail able Trey Yu MD Attending Clinician Unavaila Inga Martinez Attending Clinician Unavailable Alvarado Estevez MD Attending Clinician + [phone] Alejandra Zeng Attending Clinician Unavailable ELISE PARKER Attending Clinician Unavailable TREY YU Attending Clinician Unavailable SHAHNAZ OATES Attending Clinician Unavaila lester Oates MD, Shahnaz Frederick Attending Clinician +[phone] Dany Mcdonald Attending Clinician Unavailable ALVARADO ESTEVEZ Attending Clinician UnavailKITTY Rodriguez Attending Clinician Unavailable Any Rodriguez Attending Clinician [phone] Ander ADAMS, Kitty Attending Clinician +[phone] RACHEL REED K.HGhassan Attending Clinician Unavaila KATIA Chow Attending Clinician Unavailjake Zheng PT, Kalpana Moyer Attending Clinician Unavailab Katia Velez MD Attending Clinician [phone] Della Cash RN Attending Clinician +[phone] Leo Dickinson DO Attending Clinician Caron RYAN, Renny Paredes Attending Clinician + [phone] Riki RYAN, Tommy Maza Attending Clinician +[phone] Nurse, [facility] Attending Clinician Un available Moi HEMODIALYSIS TECHNICIAN, Amada Attending Clinician +[phone] AMADA FERGUSON Attending Clinician Unavailable Pob, Adc Lab Main Attending Clinician Unavailjake Horn RN, Day M Attending Clinician Unavailable ZEINA JO Attending Clinician Unavaila ZEINA Freeman Attending Clinician Unavaila Flako Anguiano DO Attending Clinician +[phone] Akash ADAMS, Faith Attending Clinician +- [phone] FAITH BUSTOS Attending Clinician Unavailable ASHLEY BLUE Attending Clinician Unavailab Marah Malcolm DO Attending Clinician [phone] Juana Zamora MD Attending Clinician +[phone] Radiology Attending Clinician Unavailable RADIOLOGY Attending Clinician Unavailable Luis Alberto Jordan MD, Joana Douglas Attending Clinician + [phone] Vielka RYAN, Melba العلي Attending Clinician + [phone] KEVEN REDMOND Attending Clinician Jan Ortiz DO Attending Clinician +[phone] JAN GASCA Attending Clinician Unavailab le Pcp-Lab Attending Clinician Unavailable FLAKO ZELAYA Attending Clinician UnavailGEMINI Fernandez Admitting Clinician Unavailjake Chaidez MD, Carmelina Admitting Clinician +[phone] CARMELINA CHAIDEZ Admitting Clinician Unavailable Carmelina Chaidez MD Admitting Clinician +[phone] CORDELL MANLEY Admitting Clinician Unavailable Inga Robertson Admitting Clinician Unavailable Alejandra Zeng Admitting Clinician Unavailable [facility] Admitting Clinician U shawnee Lyn MD, Tommy Maza Admitting Clinician [phone] FAITH BUSTOS Admitting Clinician Unavailable Noah RYAN, Juana Admitting Clinician +[phone] FLAKO ZELAYA Admitting Clinician Unavailabl e Payers Payer Name Policy Type Policy Number Effective Date Expirati on Date Source [facility] - OUT [facility] STATE [id number] 2012 00:00:00 [facility] [id number] 2022 00:00:00 [employer] PPO [id number] [facility] Problems Condition Name Condition Details Condition Category Status Onset Date Resolution Date Last Treatment Date Treating Clinician Comments Source Vision loss of right eye Vision loss of right eye Disease Active 14 00:00: 00 [facility] Blindness of right eye, unspecifie d left eye visual impairment category Blindness of right eye, unspecifie d left eye visual impairment category Disease Active 10-23 00:00: 00 [facility] Postoperat nevaeh surgical complicati on involving right eye associated with ophthalmic procedure, unspecifie d complicati on Postoperat nevaeh surgical complicati on involving right eye associated with ophthalmic procedure, unspecifie d complicati on Disease Active 10-23 00:00: 00 [facility] Right retinal detachment Right retinal detachment Disease Active 10-23 00:00: 00 [facility] Right retinal detachment Right retinal detachment Disease Active 10-23 00:00: 00 [facility] Proliferat nevaeh diabetic retinopath y of both eyes associated with type 2 diabetes mellitus, unspecifie d proliferat nevaeh retinopath y type Proliferat nevaeh diabetic retinopath y of both eyes associated with type 2 diabetes mellitus, unspecifie d proliferat nevaeh retinopath y type Disease Active 08-20 00:00: 00 [facility] Vitreous hemorrhage of right eye Vitreous hemorrhage of right eye Disease Active 08-20 00:00: 00 [facility] Combined forms of age-relate d cataract of both eyes Combined forms of age-relate d cataract of both eyes Disease Active 08-20 00:00: 00 [facility] Esophageal dysphagia Esophageal dysphagia Disease Active 2022-03 00:00: 00 [facility] Colitis Colitis Disease Active 2020-03 00:00: 00 [facility] At risk for falls At risk for falls Disease Active 2020-03 00:00: 00 [facility] Mood disorder 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 Disease Active 2020-03 00:00: 00 [facility] 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) Disease Active 2020-03 00:00: 00 [facility] History of stroke History of stroke Disease Active 2020-03 0-29 00:00: 00 [facility] Generalize d pain Generalize d pain Disease Active 9 00:00: 00 [facility] Chest pain due to CAD Chest pain due to CAD Disease Active 2019-03 2 00:00: 00 [facility] Proliferat nevaeh diabetic retinopath y of both eyes with macular edema associated with type 2 diabetes mellitus Proliferat nevaeh diabetic retinopath y of both eyes with macular edema associated with type 2 diabetes mellitus Disease Active 2018-03 00:00: 00 Overview: Formattin g of this note might be different from the original. Added automatic ally from request for surgery [id number] [facility] Gastric band slippage Gastric band slippage Disease Active 10-17 00:00: 00 [facility] NSVT (nonsustai adán ventricula r tachycardi a) NSVT (nonsustai adán ventricula r tachycardi a) Disease Active 05-19 00:00: 00 [facility] Total knee replacemen t status Total knee replacemen t status Disease Active 05-15 00:00: 00 [facility] Diabetes mellitus Diabetes mellitus Disease Recurre nce 1- 00:00: 00 [facility] Labial lesion Labial lesion Disease Active 2016-0316 00:00: 00 [facility] Long-term use of Plaquenil Long-term use of Plaquenil Disease Active 07-21 00:00: 00 [facility] 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 ICD10 Diagnosis Term Band Splicer Utility [facility] Diabetic peripheral neuropathy Diabetic peripheral neuropathy Disease Active 11-06 00:00: 00 [facility] Diabetes mellitus type 2, uncontroll ed, without complicati ons Diabetes mellitus type 2, uncontroll ed, without complicati ons Disease Active 2011-03 00:00: 00 Overview: Formattin g of this note might be different from the original. ICD10 Diagnosis Term Band Splicer Utility [facility] Obesity Obesity Disease Active 2011-03 00:00: 00 Overview: Formattin g of this note might be different from the original. ICD10 Diagnosis Term Band Splicer Utility [facility] HLD (hyperlipi demia) HLD (hyperlipi demia) Disease Active 2011-03 00:00: 00 Overview: Formattin g of this note might be different from the original. 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 status [facility] Chronic pain syndrome Chronic pain syndrome [facility] Age-relate d osteoporos is Age-relate d osteoporos is without current pathologic al fracture [facility] Rheumatoid arthritis Rheumatoid arthritis without rheumatoid factor, multiple sites [facility] Joint pain Pain in unspecifie d joint [facility] Vitamin D deficiency Vitamin D deficiency , unspecifie d [facility] Chronic kidney disease stage 3 Chronic kidney disease, stage 3 (moderate) [facility] Hyperglyce yumiko due to type 2 diabetes mellitus Type 2 diabetes mellitus with hyperglyce yumiko [facility] Essential hypertensi on Essential (primary) hypertensi on [facility] Primary generalise d osteoarthr itis Primary generalize d (osteo)art hritis [facility] BMI 36.0-36.9, adult BMI 36.0-36.9, adult Disease Resolve d 2016-03 00:00: 00 2021-01-17 00:00:00 2021-01-17 01:09:37 [facility] Breast cancer screening Breast cancer screening Disease Resolve d 2016-03 00:00: 00 2021-01-17 00:00:00 2021-01-17 01:09:32 [facility] Right knee pain Right knee pain Disease Resolve d 08-04 00:00: 00 2021-01-17 00:00:00 2021-01-17 01:10:19 [facility] Nonprolife rative diabetic retinopath y of both eyes Nonprolife rative diabetic retinopath y of both eyes Disease Resolve d 07-21 00:00: 00 2021-01-17 00:00:00 2021-01-17 01:10:30 [facility] Nonprolife rative diabetic retinopath y of both eyes Nonprolife rative diabetic retinopath y of both eyes Disease Resolve d 07-21 00:00: 00 2021-01-17 00:00:00 2021-01-17 01:10:30 [facility] Steroid long-term use Steroid long-term use Disease Resolve d 2011-03 00:00: 00 2021-01-17 00:00:00 2021-01-17 01:10:16 [facility] Encounter for long-term (current) use of other medication s Encounter for long-term (current) use of other medication s Disease Resolve d 07-18 00:00: 00 2021-01-17 00:00:00 2021-01-17 01:10:56 [facility] Encounter for long-term (current) use of steroids Encounter for long-term (current) use of steroids Disease Resolve d 07-28 00:00: 00 2021-01-17 00:00:00 2021-01-17 01:10:52 [facility] Encounter for long-term (current) use of steroids Encounter for long-term (current) use of steroids Disease Resolve d 07-28 00:00: 00 2021-01-17 00:00:00 2021-01-17 01:10:52 [facility] Allergies, Adverse Reactions, Alerts Allergy Name Allergy Type Status Severity Reaction(s) Onset Date Inactive Date Treating Clinician Comments Source iodine DA Active MO HIVES 07-21 00:00: 00 [facility] iodine DA Active MO HIVES - 00:00: 00 [facility] SHELLFIS H DERIVED DRUG INGREDI Active Anaphylaxis 03-26 00:00: 00 [facility] Shellfis h Derived Propensi ty to adverse reaction s Active Anaphylaxis 03-26 00:00: 00 [facility] Iodinate d Contrast Media Propensi ty to adverse reaction s Active Hives - 00:00: 00 [facility] Iodinate d Contrast Media Propensi ty to adverse reaction s Active Hives 03-13 00:00: 00 [facility] Iodine And Iodide Containi ng Products Propensi ty to adverse reaction s Active Rash 07-21 00:00: 00 [facility] IODINE AND IODIDE CONTAINI NG PRODUCTS Drug Class Active Rash 07-21 00:00: 00 [facility] Iodine And Iodide Containi ng Products Propensi ty to adverse reaction s Active Rash 07-21 00:00: 00 Other reaction( s): Itching and swelling [facility] IODINE CONTRAST DA Active U OK W/ BETADINE PREP 8-24 00:00: 00 [facility] No Known Drug Allergie s DA Active U 8-24 00:00: 00 [facility] No Known Other Allergie s DA Active U 8-24 00:00: 00 [facility] SHRIMP DA Active U 8-24 00:00: 00 [facility] iodine DA Active U 2-10 00:00: 00 [facility] Family History Family Member Diagnosis Comments Start Date Stop Date Sourc e Natural father Heart disease [facility] Natural mother Cancer [facility] Social History Social Habit Start Date Stop Date Quantity Comments Source Gender identity [facility] History of Tobacco Use [facility] Sexual orientation [facility] ASSERTION Possible [facility] History SDOH Alcohol Comment [facility] History SDOH Alcohol Std Drinks [facility] History SDOH Alcohol Binge [facility] History of Social function 2024-06-14 00:00:00 2024-06-14 00:00:00 [facility] Tobacco use and exposure 2023-02-09 00:00:00 2023-02-09 00:00:00 Smokeless tobacco non-user [facility] Exposure to SARS-CoV-2 (event) 2022-07-26 00:00:00 2022-08-05 11:33:00 Not sure [facility] Sex 2018-10-15 13:05:15 2018-10-15 13:05:15 Female (finding) [facility] Alcoholic beverage intake 2018-10-15 00:00:00 2018-10-15 00:00:00 Current non-drinker of alcohol (finding) [facility] Alcohol intake 2018-10-15 00:00:00 2018-10-15 00:00:00 Current non-drinker of alcohol (finding) [facility] History SDOH Alcohol Frequency 2018-10-15 00:00:00 2018-10-15 00:00:00 1 [facility] Sex assigned at 1960 00:00:00 1960 00:00:00 [facility] Smoking Status Start Date Stop Date Source Never smoked tobacco [facility] Medications Ordered Medication Name Filled Medication Name Start Date Stop Date Current Medication? Ordering Clinician Indication Dosage Frequency Signature (SIG) Comments Components Source bevacizumab (AVASTIN) injection 1.25 mg 09-30 20:50: 00 09-30 20:50 :00 No [id number] 1.25mg 1.25 mg, Intravitre al, ONCE PRN, 1 dose, Starting on Mon09/30/24 at 1550, Until Mon09/30/24 at 1550, Routine [facility] HYDROcodone -Acetaminop hen 5-325 MG HYDROcodone -Acetaminop hen 5-325 MG 09-25 00:00: 00 No 1{table t_as_ne eded} QID HYDROcodon e-Acetamin ophen 5-325 MG Methotrexat e (Anti-Rheum atic) 2.5 MG Methotrexat e (Anti-Rheum atic) 2.5 MG 09-25 00:00: 00 No Methotrexa te (Anti-Rheu matic) 2.5 MG Gabapentin 600 MG Gabapentin 600 MG 09-25 00:00: 00 No 1{table t} BID Gabapentin 600 MG Losartan Potassium 50 MG Losartan Potassium 50 MG 09-25 00:00: 00 No 1{table t} QD Losartan Potassium 50 MG Cimzia 2 X 200 MG Cimzia 2 X 200 MG 09-25 00:00: 00 No Cimzia 2 X 200 MG Folic Acid 1 MG Folic Acid 1 MG 09-25 00:00: 00 No 1{table t} Folic Acid 1 MG empaglifloz in (JARDIANCE) 25 mg Tab tablet 09-16 00:00: 00 Yes [id number] 25mg Take 1 tablet by mouth in the morning. MUST BE SEEN FOR FURTHER REFILLS [facility] insulin degludec (TRESIBA FLEXTOUCH U-100) 100 unit/mL (3 mL) InPn 09-16 00:00: 00 Yes [id number] 20U inject 20 Units under the skin in the morning. [facility] Insulin Norborne, Disposable, (PEN NEEDLES) 31 gauge x 1/4" Ndle 09-16 00:00: 00 Yes [id number] Use as directed 4 times daily. E11.65 [facility] atorvastati n 40 mg tablet 09-16 00:00: 00 Yes [id number] 40mg Take 1 tablet by mouth at bedtime. [facility] tirzepatide (MOUNJARO) 7.5 mg/0.5 mL subcutaneou s injection pen 09-16 00:00: 00 Yes [id number] 7.5mg inject 7.5 mg under the skin weekly. [facility] losartan 50 mg tablet 09-16 00:00: 00 Yes [id number] 50mg Take 1 tablet by mouth in the morning and 1 tablet in the evening. [facility] insulin aspart U-100 (NOVOLOG FLEXPEN U-100 INSULIN) 100 unit/mL (3 mL) injection 09-16 00:00: 00 Yes [id number] 3U inject 3 Units under the skin in the morning and 3 Units at noon and 3 Units in the evening. inject before meals. [facility] metoprolol tartrate 25 mg tablet 09-16 00:00: 00 Yes [id number] 25mg Take 1 tablet by mouth in the morning and 1 tablet in the evening. [facility] tirzepatide (MOUNJARO) 5 mg/0.5 mL subcutaneou s injection pen 08-08 00:00: 00 09-16 00:00 :00 No [id number] 5mg inject 5 mg under the skin weekly. [facility] bevacizumab (AVASTIN) injection 1.25 mg 07-23 18:38: 00 07-23 18:38 :00 No [id number] 1.25mg 1.25 mg, Intravitre al, ONCE PRN, 1 dose, Starting on Mon07/23/24 at 1338, Until 5/13/25 at 1338, Routine [facility] gabapentin 600 mg tablet -17 00:00: 00 Yes [id number] 600mg Take 1 tablet by mouth in the morning and 1 tablet in the evening. [facility] tirzepatide (MOUNJARO) 5 mg/0.5 mL subcutaneou s injection pem 1- 00:00: 00 08-08 00:00 :00 No [id number] 5mg inject 5 mg under the skin weekly. [facility] bevacizumab (AVASTIN) injection 1.25 mg - 21:50: 00 03-19 21:50 :00 No [id number] 1.25mg 1.25 mg, Intravitre al, ONCE PRN, 1 dose, Starting on Mon03/19/24 at 1550, Until Mon03/19/24 at 1550, Routine [facility] azithromyci n 250 mg tablet 2023-03 00:00: 00 Yes [id number] 250mg Take 1 tablet by mouth in the morning. Take 500 mg day 1, then 250 mg days 2 to 5. [facility] bromphenira mine-pseudo ephedrine-D M (BROMFED DM) 2-30-10 mg/5 mL syrup 2023-03 00:00: 00 Yes [id number] 5mL Take 5 mL by mouth 4 (four) times daily as needed for Cold symptoms. [facility] albuterol 90 mcg/actuati on inhaler 2023-03 00:00: 00 Yes [id number] 2{puff} Inhale 2 Puffs every 6 (six) hours as needed for Wheezing or Shortness of Breath. [facility] bevacizumab (AVASTIN) injection 1.25 mg 2023-03 0- 21:24: 00 01-04 21:24 :00 No [id number] 1.25mg 1.25 mg, Intravitre al, ONCE PRN, 1 dose, Starting on Mon01/05/24 at 1624, Until Mon01/05/24 at 1624, Routine [facility] insulin degludec (TRESIBA FLEXTOUCH U-100) 100 unit/mL (3 mL) In 2023-03 00:00: 00 09-16 00:00 :00 No [id number] ADMINISTER 28 UNITS UNDER THE SKIN IN THE MORNING. MAX DAILY DOSE OF 40 UNITS [facility] tirzepatide (MOUNJARO) 5 mg/0.5 mL subcutaneou s injection -30 00:00: 00 04-04 00:00 :00 No [id number] 5mg inject 5 mg under the skin weekly. [facility] empaglifloz in (JARDIANCE) 25 mg Tab tablet 10-29 00:00: 00 09-16 00:00 :00 No [id number] 25mg Take 1 tablet by mouth in the morning. MUST BE SEEN FOR FURTHER REFILLS [facility] insulin aspart U-100 (NOVOLOG FLEXPEN U-100 INSULIN) 100 unit/mL (3 mL) injection 10-29 00:00: 00 09-16 00:00 :00 No [id number] 7U inject 7 Units under the skin in the morning and 7 Units at noon and 7 Units in the evening. inject before meals. [facility] insulin degludec (TRESIBA FLEXTOUCH U-100) 100 unit/mL (3 mL) In 10-29 00:00: 00 01-01 00:00 :00 No [id number] 30U inject 30 Units under the skin in the morning. Max daily dose of 40 units [facility] moxifloxaci n (VIGAMOX) 0.5 % ophthalmic drops 1 Drop 10-25 17:00: 00 10-25 18:54 :47 No 1[drp] 1 Drop, Right Eye, QID, First dose on Mon10/26/23 at 1200, Until Discontinu ed, Routine [facility] prednisoLON E acetate (PRED-FORTE ) 1 % ophthalmic suspension drops 1 Drop 10-25 17:00: 00 10-25 18:54 :47 No 1[drp] 1 Drop, Right Eye, QID, First dose on Mon10/26/23 at 1200, Until Discontinu ed, Routine [facility] foLIC acid (FOLATE) tablet 1 mg 10-25 14:00: 00 10-25 18:54 :48 No 1mg 1 mg, Oral, DAILY, First dose on Mon10/26/23 at 0900, Until Discontinu ed, Routine [facility] DULoxetine (CYMBALTA) capsule 20 mg 10-25 14:00: 00 10-25 18:54 :48 No 20mg [facility] ondansetron (ZOFRAN (PF)) injection 4 mg 10-25 03:28: 02 10-25 18:54 :47 No 4mg 4 mg, Slow IV Push, Q6HPRN, Nausea and Vomiting (N/V), Starting on Mon10/25/23 at 2228, Doses of ondansetro n 16 mg and above need to be administer ed via IV piggyback. For Dose >=24mg ECG monitoring is advisable. [facility] HYDROcodone -acetaminop hen (NORCO 5) tablet 1 tablet 10-25 03:26: 44 10-25 18:54 :48 No 1{tbl} 1 tablet, Oral, Q6HPRN, Starting on Mon10/25/23 at 2226, Until Mon10/26/23 at 1354, Routine, Pain (scale 4-6) [facility] acetaminoph en (TYLENOL) tablet 650 mg 10-25 03:26: 31 10-25 18:54 :48 No 650mg 650 mg, Oral, Q6HPRN, Starting on Mon10/25/23 at 2226, Until Mon10/26/23 at 1354, Routine, Pain (scale 1-3) [facility] morphine (2 mg/mL) injection 4 mg 10-25 03:26: 24 10-25 18:54 :48 No 4mg 4 mg, Slow IV Push, Q6HPRN, Starting on Mon10/25/23 at 2226, Until Lisa 10/26/23 at 1354, Routine, Pain (scale 7-10) [facility] HYDROcodone -acetaminop hen (NORCO 5) tablet 1 tablet 10-25 03:15: 00 10-25 03:19 :00 No 1{tbl} 1 tablet, Oral, ONCE, 1 dose, On Mon10/25/23 at 2215, Routine, PACU [facility] Hyaluronida se, Human Recomb. (HYLENEX) 150 Units, bupivacaine (preserv free) 0.5% (SENSORCAIN E MPF) 5 mL, lidocaine PF 2% (XYLOCAINE- MPF) 5 mL injection 10-25 02:35: 00 10-25 03:03 :07 No PRN, Starting on Mon10/25/23 at 2135, Intra-op [facility] bevacizumab (AVASTIN) 1.25 mg in Total Volume 0.05 mL injection 10-25 02:30: 00 10-25 02:30 :00 No 1.25mg 1.25 mg, Intravitre al - Right Eye, ONCE, On Mon10/25/23 at 2130, For 1 dose, Intra-op [facility] atorvastati n (LIPITOR) tablet 40 mg 10-25 02:00: 00 10-25 18:54 :48 No 40mg 40 mg, Oral, QHS, First dose on Mon10/25/23 at 2100, Until Discontinu ed, Routine [facility] povidone-io dine (BETADINE) 5 % ophthalmic drops 10-25 01:55: 00 10-25 03:03 :07 No PRN, Starting on Mon10/25/23 at 205, Until Mon10/25/23 at 2203, Routine, Intra-op [facility] tetracaine (PONTOCAINE ) 0.5 % ophthalmic drops 10-25 01:55: 00 10-25 03:03 :07 No PRN, Starting on Mon10/25/23 at 205, Until Mon10/25/23 at 2202, Routine, Intra-op [facility] neomycin-po lymyxin-dex amethasone (MAXITROL) 3.5 mg/g-10,000 unit/g-0.1 % ophthalmic ointment 10-25 01:54: 00 10-25 03:03 :07 No PRN, Starting on Mon10/25/23 at 2053, Until Mon10/25/23 at 2202, Routine, Intra-op [facility] methylpredn isolone sod succ (SOLU-MEDRO L) injection 10-25 01:54: 00 10-25 03:03 :07 No PRN, Starting on Mon10/25/23 at 2053, Until Mon10/25/23 at 2202, Routine, Intra-op [facility] EPINEPHrine 1:1,000 (1 mg/mL) (ADRENALIN) injection 10-25 01:54: 00 10-25 03:03 :07 No PRN, Starting on Mon10/25/23 at 2053, Until Mon10/25/23 at 2202, Routine, Intra-op [facility] ceFAZolin (ANCEF) injection 10-25 01:53: 00 10-25 03:03 :07 No PRN, Starting on Mon10/25/23 at 2052, Until Mon10/25/23 at 2202, MANJU, Intra-op [facility] balanced salt soln no.2 irrig. (BSS) ophthalmic solution 10-25 01:53: 00 10-25 03:03 :07 No PRN, Starting on Mon10/25/23 at 2052, Until Mon10/25/23 at 2202, Routine, Intra-op [facility] balanced salt soln no.1 irrig. (BSS PLUS) ophthalmic solution 10-25 01:53: 00 10-25 03:03 :07 No PRN, Starting on Mon10/25/23 at 2052, Until Mon10/25/23 at 2202, Routine, Intra-op [facility] atropine (ISOPTO ATROPINE) 1 % ophthalmic drops 10-25 01:52: 00 10-25 03:03 :07 No PRN, Starting on Mon10/25/23 at 2051, Until Mon10/25/23 at 2202, Routine, Intra-op [facility] remifentani L (ULTIVA) injection 10-25 01:37: 00 10-25 02:54 :53 No Slow IV Push, ONCE INTRA PROCEDURE, Starting on Mon10/25/23 at 2036, Until Mon10/25/23 at 2153, Routine, Intra-op [facility] midazolam (VERSED) injection 10-25 01:30: 00 10-25 02:54 :53 No IV Push, ONCE INTRA PROCEDURE, Starting on Mon10/25/23 at 2030, Until Mon10/25/23 at 2153, Routine, Intra-op [facility] lactated ringers IV infusion 10-25 01:25: 00 10-25 02:54 :53 No IV Infusion, CONTINUOUS PRN, Starting on Mon10/25/23 at 2024, Until Mon10/25/23 at 2153, Routine, [facility]LOPRESSOR[facility] tablet 25 mg 10-25 01:00: 00 10-25 18:54 :48 No 25mg 25 mg, Oral, BID, First dose on Mon10/25/23 at 1999, Until Discontinu ed, Routine [facility] losartan (COZAAR) tablet 50 mg 10-25 01:00: 00 10-25 18:54 :48 No 50mg 50 mg, Oral, BID, First dose on Mon10/25/23 at 2000, Until Discontinu ed, Routine [facility] gabapentin (NEURONTIN) tablet 600 mg 10-25 01:00: 00 10-25 18:54 :48 No 600mg 600 mg, Oral, BID, First dose on Mon10/25/23 at 2000, Until Discontinu ed, Routine [facility] prednisoLON E acetate 1 % ophthalmic suspension drops 10-25 00:00: 00 Yes [id number] 1[drp] Place 1 Drop in right eye 4 (four) times daily. [facility] moxifloxaci n 0.5 % ophthalmic drops 10-25 00:00: 00 11-06 00:00 :00 No [id number] 1[drp] Place 1 Drop in right eye 4 (four) times daily. [facility] Sliding Scale Insulin - Lispro (HumaLOG) 10-24 17:00: 00 10-25 18:54 :48 No [facility] nitroglycer in (NITROSTAT) sublingual tablet 0.4 mg 10-24 14:19: 06 10-25 18:54 :48 No .4mg [facility] dextrose 50 % in water (D50W) injection 25 mL 10-24 14:17: 21 10-25 18:54 :48 No 25mL [facility] HYDROcodone -acetaminop hen (NORCO 5) tablet 1 tablet 10-24 13:42: 26 10-25 03:28 :41 No 1{tbl} 1 tablet, Oral, Q6HPRN, Starting on Mon10/25/23 at 0842, Until Mon10/25/23 at 2228, Routine, Pain (scale 4-6) [facility] HYDROcodone -acetaminop hen (NORCO 5) tablet 1 tablet 10-24 06:00: 00 10-24 09:56 :00 No 1{tbl} 1 tablet, Oral, ONCE, 1 dose, On Mon10/25/23 at 0100, MANJU [facility] prednisoLON E acetate 1 % ophthalmic suspension drops 10-24 00:00: 00 11-22 04:59 :00 [id number] 1 Drop in right eye 4 (four) times daily for 14 days, THEN 1 Drop 4 (four) times daily for 14 days. [facility] moxifloxaci n 0.5 % ophthalmic drops 8-14 00:00: 00 11-01 04:59 :00 No [id number] 1[drp] Place 1 Drop in right eye 4 (four) times daily for 7 days. [facility] insulin aspart U-100 (NOVOLOG FLEXPEN U-100 INSULIN) 100 unit/mL (3 mL) injection 09-26 00:00: 00 10-29 00:00 :00 No [id number] 10U inject 10 Units under the skin in the morning and 10 Units at noon and 10 Units in the evening. inject before meals. [facility] insulin aspart U-100 (NOVOLOG FLEXPEN U-100 INSULIN) 100 unit/mL (3 mL) injection 09-24 00:00: 00 09-26 00:00 :00 No [id number] 10U inject 10 Units under the skin in the morning and 10 Units at noon and 10 Units in the evening. inject before meals. ADMINISTER 8 UNITS THREE TIMES DAILY UNDER THE SKIN BEFORE MEALS. MAX DAILY DOSE OF 30 UNITS [facility] HYDROcodone -acetaminop hen (NORCO 5) 5-325 mg tablet 1 tablet 09-06 14:45: 11 09-06 17:55 :36 No 1{tbl} [facility] ibuprofen (MOTRIN IB) tablet 200 mg 09-06 14:45: 11 09-06 17:55 :36 No 200mg [facility] acetaminoph en (TYLENOL) tablet 500 mg 09-06 14:45: 11 09-06 17:55 :36 No 500mg [facility] neomycin-po lymyxin-dex amethasone (MAXITROL) 3.5 mg/g-10,000 unit/g-0.1 % ophthalmic ointment 09-06 14:38: 00 09-06 14:49 :55 No PRN, Starting on Lisa 09/07/23 at 0938, Until Lisa 09/07/23 at 0949, Routine, Intra-op [facility] methylpredn isolone sod succ (SOLU-MEDRO L) injection 09-06 14:04: 00 09-06 14:49 :55 No PRN, Starting on Lisa 09/07/23 at 0904, Until Lisa 09/07/23 at 0949, Routine, Intra-op [facility] ceFAZolin (ANCEF) 100 mg/ 0.5 mL subconjunct ival syringe 09-06 14:04: 00 09-06 14:49 :55 No PRN, Starting on Lisa 09/07/23 at 0904, Until Lisa 09/07/23 at 0949, MANJU, Intra-op [facility] triamcinolo ne acetonide (PF) (TRIESENCE (PF)) injection 09-06 13:52: 00 09-06 14:49 :55 No PRN, Starting on Lisa 09/07/23 at 0852, Until Lisa 09/07/23 at 0949, Routine, Intra-op [facility] trypan blue (VISION BLUE) 0.06 % syringe 09-06 13:16: 00 09-06 14:49 :55 No PRN, Starting on Lisa 09/07/23 at 0816, Until Lisa 09/07/23 at 0949, Routine, Intra-op [facility] chondroitin sulf-sod hyaluronate (DUOVISC VISCO ELASTIC) intraocular injection 09-06 13:16: 00 09-06 14:49 :55 No PRN, Starting on Lisa 09/07/23 at 0816, Until Lisa 09/07/23 at 0949, Routine, Intra-op [facility] VISCOAT 0.5 ml (VISCOAT) 4-3 % (40-30 mg/mL) injection 09-06 13:16: 00 09-06 14:49 :55 No PRN, Starting on Lisa 09/07/23 at 0816, Until Lisa 09/07/23 at 0949, Routine, Intra-op [facility] balanced salt soln no.1 irrig. (BSS PLUS) ophthalmic solution 09-06 13:16: 00 09-06 14:49 :55 No PRN, Starting on Lisa 09/07/23 at 0816, Until Lisa 09/07/23 at 0949, Routine, Intra-op [facility] balanced salt soln no.2 irrig. (BSS) ophthalmic solution 09-06 13:16: 00 09-06 14:49 :55 No PRN, Starting on Lisa 09/07/23 at 0816, Until Lisa 09/07/23 at 0949, Routine, Intra-op [facility] povidone-io dine (BETADINE) 5 % ophthalmic drops 09-06 13:07: 00 09-06 14:49 :55 No PRN, Starting on Lisa 09/07/23 at 0807, Until Lisa 09/07/23 at 0949, Routine, Intra-op [facility] tetracaine (PONTOCAINE ) 0.5 % ophthalmic drops 09-06 13:06: 00 09-06 14:49 :55 No PRN, Starting on Lisa 09/07/23 at 0806, Until Lisa 09/07/23 at 0949, Routine, Intra-op [facility] Hyaluronida se, Human Recomb. (HYLENEX) 75 Units, bupivacaine (preserv free) 0.5% (SENSORCAIN E MPF) 2.5 mL, lidocaine PF 2% (XYLOCAINE- MPF) 2.5 mL injection 09-06 13:04: 00 09-06 14:49 :55 No PRN, Starting on Lisa 09/07/23 at 0804, Intra-op [facility] lactated ringers IV infusion 1,000 mL 09-06 12:30: 00 09-06 12:35 :00 No 1000mL at 42 mL/hr, 1,000 mL, IV Infusion, ONCE, 1 dose, On Lisa 09/07/23 at 0730, Routine, DSU Pre-op [facility] cyclopent 1%-tropic 1%-phenyl 2.5%-ketor 0.5% (MYDRIATIC #5) ophthalmic solution syringe 0.25 mL 09-06 12:21: 02 09-06 12:41 :00 No .25mL 0.25 mL, Right Eye, PRN - SEE INSTRUCTMUSTAPHA NS, 2 doses, Starting on Lisa 09/07/23 at 0721, Until Mon09/07/23 at 0741, Routine, Surgery/Pr ocedure, DSU Pre-op [facility] Dextran 70-Hypromel lose (ARTIFICIAL TEARS) Dpet 09-06 10:50: 32 Yes 1[drp] Place 1 Drop in both eyes as needed. [facility] methotrexat e 5 mg tablet 09-06 10:50: 32 Yes Take by mouth weekly. [facility] foLIC acid 1 mg tablet 09-06 10:50: 32 Yes 1mg Take 1 tablet by mouth in the morning. except on date of methotrexa te [facility] losartan 50 mg tablet 09-06 10:50: 32 09-16 00:00 :00 No 50mg Take 1 tablet by mouth in the morning and 1 tablet in the evening. [facility] moxifloxaci n (VIGAMOX) 0.5 % ophthalmic drops 09-06 00:00: 00 10-24 00:00 :00 No [id number] [id number] 1[drp] Place 1 Drop in right eye 4 (four) times daily. [facility] prednisoLON E acetate 1 % ophthalmic suspension drops 09-06 00:00: 00 10-24 00:00 :00 No [id number] 9103 1[drp] Place 1 Drop in right eye 4 (four) times daily. [facility] bevacizumab (AVASTIN) injection 1.25 mg 08-27 13:51: 00 08-27 13:51 :00 No [id number] 1.25mg 1.25 mg, Intravitre al, ONCE PRN, 1 dose, Starting on Mon08/28/23 at 0851, Until Mon08/28/23 at 0851, Routine [facility] Dextran 70-Hypromel lose (ARTIFICIAL TEARS) Dpet 08-20 09:53: 56 Yes 1[drp] Place 1 Drop in both eyes as needed. [facility] tirzepatide (MOUNJARO) 2.5 mg/0.5 mL subcutaneou s injection 5-14 00:00: 00 12-10 00:00 :00 No [id number] [id number] 2.5mg inject 2.5 mg under the skin weekly. [facility] JARDIANCE 25 mg Tab tablet 07-20 00:00: 00 10-29 00:00 :00 No [id number] 25mg TAKE 1 TABLET BY MOUTH IN THE MORNING [facility] cycloSPORIN E (RESTASIS) 0.05 % drops 07-17 00:00: 00 01-14 05:59 :00 No [id number] 1[drp] Place 1 Drop in left eye every 12 (twelve) hours for 180 days. [facility] gabapentin 300 mg capsule 15 00:00: 00 Yes [id number] 9109 600mg Take 2 capsules by mouth in the morning and 2 capsules in the evening. [facility] metoprolol tartrate 25 mg tablet 15 00:00: 00 09-16 00:00 :00 No [id number] 9109 25mg Take 1 tablet by mouth in the morning and 1 tablet in the evening. [facility] tirzepatide (MOUNJARO) 5 mg/0.5 mL subcutaneou s injection 15 00:00: 00 12-10 00:00 :00 No [id number] 9109 5mg inject 5 mg under the skin weekly. [facility] insulin degludec (TRESIBA FLEXTOUCH U-100) 100 unit/mL (3 mL) InPn 15 00:00: 00 10-29 00:00 :00 No [id number] 32U inject 32 Units under the skin in the morning. Max daily dose of 40 units [facility] insulin aspart U-100 (NOVOLOG FLEXPEN U-100 INSULIN) 100 unit/mL (3 mL) injection 06-25 00:00: 00 09-24 00:00 :00 No [id number] ADMINISTER 10 UNITS UNDER THE SKIN BEFORE MEALS. MAX DAILY DOSE OF 30 UNITS [facility] tirzepatide (MOUNJARO) 2.5 mg/0.5 mL subcutaneou s injection 06-25 00:00: 00 07-24 00:00 :00 No [id number] 2.5mg inject 2.5 mg under the skin weekly. [facility] Insulin [place]borne, Disposable, (PEN NEEDLES) 31 gauge x 1/4" Ndle 05-10 00:00: 00 09-16 00:00 :00 No [id number] 9109 Use as directed 4 times daily. E11.65 [facility] empaglifloz in (JARDIANCE) 25 mg Tab 04-03 00:00: 00 07-20 00:00 :00 No [id number] 25mg Take 1 tablet by mouth in the morning. [facility] insulin aspart U-100 (NOVOLOG FLEXPEN U-100 INSULIN) 100 unit/mL (3 mL) injection 04-03 00:00: 00 06-25 00:00 :00 No [id number] ADMINISTER 8 UNITS UNDER THE SKIN BEFORE MEALS. MAX DAILY DOSE OF 30 UNITS [facility] insulin degludec (TRESIBA FLEXTOUCH U-100) 100 unit/mL (3 mL) InPn 04-03 00:00: 00 06-25 00:00 :00 No [id number] 28U inject 28 Units under the skin in the morning. Max daily dose of 40 units [facility] azelastine 137 mcg (0.1 %) nasal spray 03-20 00:00: 00 Yes [id number] 1{spray } USE 1 SPRAY IN EACH NOSTRIL IN THE MORNING AND IN THE EVENING DIRECTED [facility] benzonatate (TESSALON PERLES) 100 mg capsule 03-15 00:00: 00 Yes [id number] 100mg Take 1 capsule by mouth every 8 (eight) hours as needed for Cough. [facility] azelastine 137 mcg (0.1 %) nasal spray 03-15 00:00: 00 03-20 00:00 :00 No [id number] 1{spray } Use 1 [place] in each nostril in the morning and 1 [place] in the evening. Use in each nostril as directed [facility] albuterol 90 mcg/actuati on inhaler 2022-03 00:00: 00 Yes INHALE 2 PUFFS BY MOUTH EVERY 4-6 HOURS NEEDED FOR DIFFICULTY BREATHING [facility] amoxicillin 500 mg capsule 2022-03 00:00: 00 Yes TAKE 1 CAPSULE BY MOUTH EVERY 8 HOURS FOR 10 DAYS [facility] traMADoL 50 mg tablet 2022-03 00:00: 00 Yes TAKE 1 TABLET BY MOUTH EVERY 8 HOURS NEEDED [facility] methylPREDN ISolone 4 mg tablets 2022-03 00:00: 00 06-25 00:00 :00 No FOLLOW PACKAGE DIRECTIONS [facility] gabapentin 600 mg tablet 2022-03 00:00: 00 04-26 00:00 :00 No [id number] 600mg Take 1 tablet by mouth in the morning and 1 tablet in the evening. [facility] Dextran 70-Hypromel lose (ARTIFICIAL TEARS) Dpet 2022-03 16:30: 21 Yes 1[drp] Place 1 Drop in both eyes as needed. [facility] methotrexat e 5 mg tablet 2022-03 16:30: 21 Yes Take by mouth weekly. [facility] foLIC acid 1 mg tablet 2022-03 16:30: 21 Yes 1mg Take 1 tablet by mouth in the morning. except on date of methotrexa te [facility] losartan 50 mg tablet 2022-03 16:30: 21 Yes 50mg Take 1 tablet by mouth in the morning and 1 tablet in the evening. [facility] Dextran 70-Hypromel lose (ARTIFICIAL TEARS) Dpet 2022-03 10:06: 32 Yes 1[drp] Place 1 Drop in both eyes as needed. [facility] nystatin 100,000 unit/gram powder 2022-03 00:00: 00 Yes [id number] Apply to area(s) 2 (two) times daily. [facility] barium sulfate (LIQUID E-Z PAQUE) 60 % (w/v) oral suspension 340 g 2022-03 15:45: 00 01-26 15:20 :00 No [id number] 340g 340 g, Oral, ONCE, 1 dose, On Mon01/26/23 at 0945, Routine [facility] insulin aspart U-100 (NOVOLOG FLEXPEN U-100 INSULIN) 100 unit/mL (3 mL) injection 12-08 00:00: 00 03-30 00:00 :00 No [id number] ADMINISTER 8 UNITS UNDER THE SKIN BEFORE MEALS. MAX DAILY DOSE OF 30 UNITS [facility] empaglifloz in (JARDIANCE) 25 mg Tab 12-08 00:00: 00 03-30 00:00 :00 No [id number] 25mg Take 1 tablet by mouth in the morning. [facility] Blood-Gluco se Meter,Josué shane (DEXCOM G7 AUTO SERVICE INSTRUCTOR) Misc 09-05 00:00: 00 06-25 00:00 :00 No Use as directed for E11.69 [facility] Blood-Gluco se Sensor (DEXCOM G7 SENSOR) Yolanda 09-05 00:00: 00 06-25 00:00 :00 No Use as directed for DX E11.69 [facility] Blood-Gluco se Sensor (FREESTYLE FELIPE 3 SENSOR) Yolanda 08-23 00:00: 00 Yes [id number] Use as directed [facility] Blood-Gluco se Sensor (FREESTYLE FELIPE 3 SENSOR) Yolanda 08-19 00:00: 00 Yes [id number] Use as directed [facility] insulin degludec (TRESIBA FLEXTOUCH U-100) 100 unit/mL (3 mL) InPn 06-13 00:00: 00 03-30 00:00 :00 No [id number] 25U inject 25 Units under the skin in the morning. Max daily dose of 40 units [facility] insulin aspart U-100 (NOVOLOG FLEXPEN U-100 INSULIN) 100 unit/mL (3 mL) injection 06-13 00:00: 00 12-08 00:00 :00 No [id number] INJECT 8 UNITS SUBCUTANEO US BEFORE EACH MEAL. MAX DAILY DOSE OF 30 UNITS [facility] empaglifloz in (JARDIANCE) 25 mg Tab 06-13 00:00: 00 12-08 00:00 :00 No [id number] 25mg Take 1 tablet by mouth in the morning. [facility] Insulin [place], Disposable, (PEN NEEDLES) 31 gauge x 1/4" Ndle 04-05 00:00: 00 Yes [id number] Use as directed 4 times daily. E11.65 [facility] Insulin [place], Disposable, (PEN NEEDLES) 31 gauge x 1/4" Ndle 04-05 00:00: 00 05-08 00:00 :00 No [id number] Use as directed 4 times daily. E11.65 [facility] Blood-Gluco se Sensor (FREESTYLE FELIPE 3 SENSOR) Yolanda 2021-03 00:00: 00 08-19 00:00 :00 No [id number] Use as directed [facility] empaglifloz in (JARDIANCE) 10 mg 2021-03- 00:00: 00 06-13 00:00 :00 No [id number] 10mg Take 1 tablet by mouth in the morning. [facility] predniSONE 50 mg tablet 06-22 00:00: 00 06-25 00:00 :00 No [facility] methotrexat e 2.5 mg tablet 06-17 00:00: 00 Yes 2.5mg Take 1 tablet by mouth weekly On Monday; 2.5mg [facility] TRESIBA FLEXTOUCH U-100 100 unit/mL (3 mL) InPn 06-16 00:00: 00 06-13 00:00 :00 No [id number] 26U INJECT 26 UNITS UNDER THE SKIN DAILY. MAX DAILY DOSE OF 40 UNITS [facility] atorvastati n 40 mg tablet 1- 00:00: 00 09-16 00:00 :00 No 40mg Take 1 tablet by mouth at bedtime. [facility] gabapentin 600 mg tablet - 00:00: 00 02-16 00:00 :00 No [id number] 600mg Take 1 tablet by mouth 2 (two) times daily. [facility] ISOSORBIDE MONONITRATE 30 mg 24 hr tablet 2020-03 00:00: 00 Yes [id number] 30mg TAKE 1 TABLET BY MOUTH DAILY [facility] insulin aspart U-100 (NOVOLOG FLEXPEN U-100 INSULIN) 100 unit/mL (3 mL) injection 2020-03 00:00: 00 06-13 00:00 :00 No [id number] INJECT 10 UNITS SUBCUTANEO US BEFORE EACH MEAL AND SLIDING SCALE. MAX DAILY DOSE OF 40 UNITS [facility] metoprolol tartrate 25 mg tablet 2020-03 2- 00:00: 00 06-25 00:00 :00 No 12.5mg Take 0.5 tablets by mouth 2 (two) times daily. [facility] Dextran 70-Hypromel lose (ARTIFICIAL TEARS) Dpet 2020-03 0 13:25: 33 Yes 1[drp] Place 1 Drop in both eyes as needed. [facility] methotrexat e 5 mg tablet 2020-03 0 13:25: 33 Yes 20mg Take by mouth weekly. [facility] Dextran 70-Hypromel lose (ARTIFICIAL TEARS) Dpet 2020-03 0 13:25: 33 Yes 1[drp] Place 1 Drop in both eyes as needed. [facility] foLIC acid 1 mg tablet 2020-03 13:15: 17 Yes 1mg Take 1 tablet by mouth in the morning. except on date of methotrexa te [facility] DULoxetine 20 mg capsule 2020-03 00:00: 00 Yes [id number] 20mg Take 1 capsule by mouth every morning. [facility] Insulin [place], Disposable, (PEN NEEDLES) 31 gauge x 1/4" Ndle 2020-03 00:00: 00 04-05 00:00 :00 No [id number] Use as directed 4 times daily. E11.65 [facility] empaglifloz in-metformi n (SYNJARDY XR) 25-1,000 mg TBph 2020-03 00:00: 00 02-21 00:00 :00 No [id number] 1{tbl} Take 1 tablet by mouth daily. [facility] HYDROcodone -acetaminop hen 5-325 mg tablet 2020-03 00:00: 00 Yes TAKE 1 TABLET BY MOUTH EVERY 6 HOURS NEEDED [facility] losartan 50 mg tablet 12-06 17:16: 24 Yes 50mg Take 1 tablet by mouth in the morning and 1 tablet in the evening. [facility] Blood-Gluco se Transmitter (DEXCOM G6 TRANSMITTER ) Yolanda 10-14 00:00: 00 06-25 00:00 :00 No [id number] Use as directed [facility] Blood-Gluco se Meter,Josué shane (DEXCOM G6 AUTO SERVICE INSTRUCTOR) Misc 10-14 00:00: 00 09-05 00:00 :00 No [id number] Use as directed [facility] Blood-Gluco se Sensor (DEXCOM G6 SENSOR) Yolanda 10-14 00:00: 00 02-21 00:00 :00 No [id number] Use as directed [facility] cycloSPORIN E (RESTASIS) 0.05 % drops 08-25 10:40: 27 08-25 00:00 :00 No 1[drp] Place 1 Drop in both eyes every 12 (twelve) hours. [facility] nitroglycer in 0.4 mg sublingual tablet 03-13 00:00: [id number] 1 tablet under the tongue every 5 (five) minutes as needed for Chest pain. [facility] clopidogreL (PLAVIX) 75 mg tablet 03-13 00:00: 00 Yes [id number] 75mg Take 1 tablet by mouth daily. [facility] aspirin 81 mg chewable tablet 03-13 00:00: 00 Yes [id number] 81mg Take 1 tablet by mouth daily. [facility] TRAMADOL 50 mg tablet 05-12 00:00: 00 03-16 00:00 :00 No [id number] TAKE 1 TABLET BY MOUTH UP TO FOUR TIMES DAILY NEEDED FOR PAIN [facility] tofacitinib (XELJANZ XR) 11 mg Tb24 2018-03 00:00: 00 Yes [id number] 11mg Take 11 mg by mouth daily. [facility] LANTUS SOLOSTAR U-100 INSULIN 100 unit/mL (3 mL) injection 2018-03 00:00: 00 08-31 00:00 :00 No 26U inject 26 Units under the skin every morning. [facility] BD INSULIN PEN NEEDLE UF 31 gauge x 5/16" Ndle 2018-03 00:00: 00 03-12 00:00 :00 No USE QID [facility] ACCU-CHEK SOFTCLIX LANCETS Misc 2018-03 0 00:00: 00 03-12 00:00 :00 No 2 (two) times daily. [facility] insulin glargine (LANTUS) 100 unit/mL injection 10-18 00:04: 52 Yes 12U QD Inject 12 Units subcutaneo usly nightly Use as directed . [facility] insulin aspart U-100 (NOVOLOG) 100 unit/mL injection 10-18 00:04: 52 Yes Inject subcutaneo usly 3 (three) times daily before meals. [facility] insulin aspart (NOVOLOG FLEXPEN) 100 unit/mL injection 09-01 00:00: 00 03-12 00:00 :00 No [id number] 12U inject 12 Units under the skin 3 (three) times daily before meals. [facility] ity [facility] NovoLOG 100 UNIT/ML NovoLOG 100 UNIT/ML No NovoLOG 100 UNIT/ML Lasix 20 MG Lasix 20 MG No 1{table t} QD Lasix 20 MG Atorvastati n Calcium 40 MG Atorvastati n Calcium 40 MG No 1{table t} QD Atorvastat in Calcium 40 MG Aspirin 81 81 MG Aspirin 81 81 MG No 1{table t} QD Aspirin 81 81 MG Jardiance 25 MG Jardiance 25 MG No 1{table t} QD Jardiance 25 MG Plavix 75 MG Plavix 75 MG No 1{table t} QD Plavix 75 MG Immunizations Ordered Immunization Name Filled Immunization Name Date Status Comments Source Flu Injectable MDCK Pres-Free (FLUCELVAX) 2023-12-19 00:00:00 Completed [facility] Zoster Vaccine Recombinant 2023-11-07 13:15:00 Completed [facility] Influenza Virus Vaccine 2023-11-07 13:15:00 Completed [facility] Influenza Virus Vaccine Quad IM, Preserv and ABX Free 6 MO-64 YRS (FLUCELVAX) 2023-11-07 13:15:00 Completed [facility] Zoster Vaccine Recombinant 2023-10-31 00:00:00 Completed [facility] Zoster Vaccine Recombinant 2023-08-28 08:15:00 Completed [facility] Influenza Virus Vaccine 2023-08-28 08:15:00 Completed [facility] Influenza Virus Vaccine Quad IM, Preserv and ABX Free 6 MO-64 YRS (FLUCELVAX) 2023-08-28 08:15:00 Completed [facility] Influenza Virus Vaccine 2023-08-21 09:15:00 Completed [facility] Influenza Virus Vaccine Quad IM, Preserv and ABX Free 6 MO-64 YRS (FLUCELVAX) 2023-08-21 09:15:00 Completed [facility] Zoster Vaccine Recombinant 2023-08-21 09:15:00 Completed [facility] Zoster Vaccine Recombinant 2023-07-31 00:00:00 Completed [facility] Influenza Virus Vaccine 2023-07-31 00:00:00 Completed [facility] Influenza Virus Vaccine Quad IM, Preserv and ABX Free 6 MO-64 YRS (FLUCELVAX) 2023-07-31 00:00:00 Completed [facility] Zoster Vaccine Recombinant 2023-07-25 00:00:00 Completed [facility] Influenza Virus Vaccine 2023-07-25 00:00:00 Completed [facility] Influenza Virus Vaccine Quad IM, Preserv and ABX Free 6 MO-64 YRS (FLUCELVAX) 2023-07-25 00:00:00 Completed [facility] Zoster Vaccine Recombinant 2023-07-21 00:00:00 Completed [facility] Influenza Virus Vaccine 2023-07-21 00:00:00 Completed [facility] Influenza Virus Vaccine Quad IM, Preserv and ABX Free 6 MO-64 YRS (FLUCELVAX) 2023-07-21 00:00:00 Completed [facility] Influenza Virus Vaccine 2023-07-19 14:00:00 Completed [facility] Influenza Virus Vaccine Quad IM, Preserv and ABX Free 6 MO-64 YRS (FLUCELVAX) 2023-07-19 14:00:00 Completed [facility] Zoster Vaccine Recombinant 2023-07-19 14:00:00 Completed [facility] Influenza Virus Vaccine 2023-07-18 13:00:00 Completed [facility] Influenza Virus Vaccine Quad IM, Preserv and ABX Free 6 MO-64 YRS (FLUCELVAX) 2023-07-18 13:00:00 Completed [facility] Zoster Vaccine Recombinant 2023-07-18 13:00:00 Completed [facility] Zoster Vaccine Recombinant 2023-06-30 00:00:00 Completed [facility] Influenza Virus Vaccine 2023-06-30 00:00:00 Completed [facility] Influenza Virus Vaccine Quad IM, Preserv and ABX Free 6 MO-64 YRS (FLUCELVAX) 2023-06-30 00:00:00 Completed [facility] Influenza Virus Vaccine 2023-06-26 12:00:00 Completed [facility] Influenza Virus Vaccine Quad IM, Preserv and ABX Free 6 MO-64 YRS (FLUCELVAX) 2023-06-26 12:00:00 Completed [facility] Zoster Vaccine Recombinant 2023-06-26 12:00:00 Completed [facility] Zoster Vaccine Recombinant 2023-05-31 00:00:00 Completed [facility] Influenza Virus Vaccine 2023-05-31 00:00:00 Completed [facility] Influenza Virus Vaccine Quad IM, Preserv and ABX Free 6 MO-64 YRS (FLUCELVAX) 2023-05-31 00:00:00 Completed [facility] Zoster Vaccine Recombinant 2023-05-24 00:00:00 Completed [facility] Influenza Virus Vaccine 2023-05-24 00:00:00 Completed [facility] Influenza Virus Vaccine Quad IM, Preserv and ABX Free 6 MO-64 YRS (FLUCELVAX) 2023-05-24 00:00:00 Completed [facility] Zoster Vaccine Recombinant 2023-05-08 00:00:00 Completed [facility] Influenza Virus Vaccine 2023-05-08 00:00:00 Completed [facility] Influenza Virus Vaccine Quad IM, Preserv and ABX Free 6 MO-64 YRS (FLUCELVAX) 2023-05-08 00:00:00 Completed [facility] Zoster Vaccine Recombinant 2023-04-12 00:00:00 Completed [facility] Influenza Virus Vaccine 2023-04-12 00:00:00 Completed [facility] Influenza Virus Vaccine Quad IM, Preserv and ABX Free 6 MO-64 YRS (FLUCELVAX) 2023-04-12 00:00:00 Completed [facility] Zoster Vaccine Recombinant 2023-04-11 00:00:00 Completed [facility] Influenza Virus Vaccine 2023-04-11 00:00:00 Completed [facility] Influenza Virus Vaccine Quad IM, Preserv and ABX Free 6 MO-64 YRS (FLUCELVAX) 2023-04-11 00:00:00 Completed [facility] Zoster Vaccine Recombinant 2023-03-31 10:21:42 Completed [facility] Influenza Virus Vaccine 2023-03-31 10:21:42 Completed [facility] Influenza Virus Vaccine Quad IM, Preserv and ABX Free 6 MO-64 YRS (FLUCELVAX) 2023-03-31 10:21:42 Completed [facility] Zoster Vaccine Recombinant 2023-03-30 00:00:00 Completed [facility] Influenza Virus Vaccine 2023-03-30 00:00:00 Completed [facility] Influenza Virus Vaccine Quad IM, Preserv and ABX Free 6 MO-64 YRS (FLUCELVAX) 2023-03-30 00:00:00 Completed [facility] Zoster Vaccine Recombinant 2023-03-17 00:00:00 Completed [facility] Influenza Virus Vaccine 2023-03-17 00:00:00 Completed [facility] Influenza Virus Vaccine Quad IM, Preserv and ABX Free 6 MO-64 YRS (FLUCELVAX) 2023-03-17 00:00:00 Completed [facility] Influenza Virus Vaccine 2023-03-15 11:00:00 Completed [facility] Influenza Virus Vaccine Quad IM, Preserv and ABX Free 6 MO-64 YRS (FLUCELVAX) 2023-03-15 11:00:00 Completed [facility] Zoster Vaccine Recombinant 2023-03-15 11:00:00 Completed [facility] Zoster Vaccine Recombinant 2023-03-15 00:00:00 Completed [facility] Influenza Virus Vaccine 2023-03-15 00:00:00 Completed [facility] Influenza Virus Vaccine Quad IM, Preserv and ABX Free 6 MO-64 YRS (FLUCELVAX) 2023-03-15 00:00:00 Completed [facility] Zoster Vaccine Recombinant 2023-02-24 00:00:00 Completed [facility] Influenza Virus Vaccine 2023-02-24 00:00:00 Completed [facility] Influenza Virus Vaccine Quad IM, Preserv and ABX Free 6 MO-64 YRS (FLUCELVAX) 2023-02-24 00:00:00 Completed [facility] Zoster Vaccine Recombinant 2023-02-16 00:00:00 Completed [facility] Influenza Virus Vaccine 2023-02-16 00:00:00 Completed [facility] Influenza Virus Vaccine Quad IM, Preserv and ABX Free 6 MO-64 YRS (FLUCELVAX) 2023-02-16 00:00:00 Completed [facility] Zoster Vaccine Recombinant 2023-02-16 00:00:00 Completed [facility] Influenza Virus Vaccine 2023-02-16 00:00:00 Completed [facility] Influenza Virus Vaccine Quad IM, Preserv and ABX Free 6 MO-64 YRS (FLUCELVAX) 2023-02-16 00:00:00 Completed [facility] Zoster Vaccine Recombinant 2023-02-15 00:00:00 Completed [facility] Influenza Virus Vaccine 2023-02-15 00:00:00 Completed [facility] Influenza Virus Vaccine Quad IM, Preserv and ABX Free 6 MO-64 YRS (FLUCELVAX) 2023-02-15 00:00:00 Completed [facility] Zoster Vaccine Recombinant 2023-02-14 00:00:00 Completed [facility] Influenza Virus Vaccine 2023-02-14 00:00:00 Completed [facility] Influenza Virus Vaccine Quad IM, Preserv and ABX Free 6 MO-64 YRS (FLUCELVAX) 2023-02-14 00:00:00 Completed [facility] Zoster Vaccine Recombinant 2023-02-12 00:00:00 Completed [facility] Influenza Virus Vaccine 2023-02-12 00:00:00 Completed [facility] Influenza Virus Vaccine Quad IM, Preserv and ABX Free 6 MO-64 YRS (FLUCELVAX) 2023-02-12 00:00:00 Completed [facility] Zoster Vaccine Recombinant 2023-02-10 00:00:00 Completed [facility] Influenza Virus Vaccine 2023-02-10 00:00:00 Completed [facility] Influenza Virus Vaccine Quad IM, Preserv and ABX Free 6 MO-64 YRS (FLUCELVAX) 2023-02-10 00:00:00 Completed [facility] Influenza Virus Vaccine 2023-02-09 10:30:00 Completed [facility] Influenza Virus Vaccine Quad IM, Preserv and ABX Free 6 MO-64 YRS (FLUCELVAX) 2023-02-09 10:30:00 Completed [facility] Zoster Vaccine Recombinant 2023-02-09 10:30:00 Completed [facility] Zoster Vaccine Recombinant 2023-02-08 00:00:00 Completed [facility] Influenza Virus Vaccine 2023-02-08 00:00:00 Completed [facility] Influenza Virus Vaccine Quad IM, Preserv and ABX Free 6 MO-64 YRS (FLUCELVAX) 2023-02-08 00:00:00 Completed [facility] Zoster Vaccine Recombinant 2023-01-26 08:36:18 Completed [facility] Influenza Virus Vaccine 2023-01-26 08:36:18 Completed [facility] Influenza Virus Vaccine Quad IM, Preserv and ABX Free 6 MO-64 YRS (FLUCELVAX) 2023-01-26 08:36:18 Completed [facility] Influenza Virus Vaccine 2023-01-16 08:30:00 Completed [facility] Influenza Virus Vaccine Quad IM, Preserv and ABX Free 6 MO-64 YRS (FLUCELVAX) 2023-01-16 08:30:00 Completed [facility] Zoster Vaccine Recombinant 2023-01-16 08:30:00 Completed [facility] Zoster Vaccine Recombinant 2023-01-12 09:00:00 Completed [facility] Influenza Virus Vaccine 2023-01-12 09:00:00 Completed [facility] Influenza Virus Vaccine Quad IM, Preserv and ABX Free 6 MO-64 YRS (FLUCELVAX) 2023-01-12 09:00:00 Completed [facility] Zoster Vaccine Recombinant 2023-01-11 00:00:00 Completed [facility] Influenza Virus Vaccine 2023-01-11 00:00:00 Completed [facility] Influenza Virus Vaccine Quad IM, Preserv and ABX Free 6 MO-64 YRS (FLUCELVAX) 2023-01-11 00:00:00 Completed [facility] Zoster Vaccine Recombinant 2023-01-09 15:30:00 Completed [facility] Influenza Virus Vaccine 2023-01-09 15:30:00 Completed [facility] Influenza Virus Vaccine Quad IM, Preserv and ABX Free 6 MO-64 YRS (FLUCELVAX) 2023-01-09 15:30:00 Completed [facility] Zoster Vaccine Recombinant 2023-01-09 00:00:00 Completed [facility] Influenza Virus Vaccine 2023-01-09 00:00:00 Completed [facility] Influenza Virus Vaccine Quad IM, Preserv and ABX Free 6 MO-64 YRS (FLUCELVAX) 2023-01-09 00:00:00 Completed [facility] Zoster Vaccine Recombinant 2023-01-09 00:00:00 Completed [facility] Influenza Virus Vaccine 2023-01-09 00:00:00 Completed [facility] Influenza Virus Vaccine Quad IM, Preserv and ABX Free 6 MO-64 YRS (FLUCELVAX) 2023-01-09 00:00:00 Completed [facility] Zoster Vaccine Recombinant 2023-01-09 00:00:00 Completed [facility] Influenza Virus Vaccine 2023-01-09 00:00:00 Completed [facility] Influenza Virus Vaccine Quad IM, Preserv and ABX Free 6 MO-64 YRS (FLUCELVAX) 2023-01-09 00:00:00 Completed [facility] Zoster Vaccine Recombinant 2023-01-05 13:00:00 Completed [facility] Influenza Virus Vaccine 2023-01-05 13:00:00 Completed [facility] Influenza Virus Vaccine Quad IM, Preserv and ABX Free 6 MO-64 YRS (FLUCELVAX) 2023-01-05 13:00:00 Completed [facility] Zoster Vaccine Recombinant 2022-12-08 00:00:00 Completed [facility] Influenza Virus Vaccine 2022-12-08 00:00:00 Completed [facility] Influenza Virus Vaccine Quad IM, Preserv and ABX Free 6 MO-64 YRS (FLUCELVAX) 2022-12-08 00:00:00 Completed [facility] Zoster Vaccine Recombinant 2022-12-08 00:00:00 Completed [facility] Influenza Virus Vaccine 2022-12-08 00:00:00 Completed [facility] Influenza Virus Vaccine Quad IM, Preserv and ABX Free 6 MO-64 YRS (FLUCELVAX) 2022-12-08 00:00:00 Completed [facility] Zoster Vaccine Recombinant 2022-12-08 00:00:00 Completed [facility] Influenza Virus Vaccine 2022-12-08 00:00:00 Completed [facility] Influenza Virus Vaccine Quad IM, Preserv and ABX Free 6 MO-64 YRS (FLUCELVAX) 2022-12-08 00:00:00 Completed [facility] Zoster Vaccine Recombinant 2022-09-19 00:00:00 Completed [facility] Influenza Virus Vaccine 2022-09-19 00:00:00 Completed [facility] Influenza Virus Vaccine Quad IM, Preserv and ABX Free 6 MO-64 YRS (FLUCELVAX) 2022-09-19 00:00:00 Completed [facility] Zoster Vaccine Recombinant 2022-08-11 00:00:00 Completed [facility] Influenza Virus Vaccine 2022-08-11 00:00:00 Completed [facility] Influenza Virus Vaccine Quad IM, Preserv and ABX Free 6 MO-64 YRS (FLUCELVAX) 2022-08-11 00:00:00 Completed [facility] Zoster Vaccine Recombinant 2022-08-06 00:00:00 Completed [facility] Influenza Virus Vaccine 2022-08-06 00:00:00 Completed [facility] Influenza Virus Vaccine Quad IM, Preserv and ABX Free 6 MO-64 YRS (FLUCELVAX) 2022-08-06 00:00:00 Completed [facility] Zoster Vaccine Recombinant 2022-02-23 00:00:00 Completed [facility] Influenza Virus Vaccine 2022-02-23 00:00:00 Completed [facility] Influenza Virus Vaccine Quad IM, Preserv and ABX Free 6 MO-64 YRS (FLUCELVAX) 2022-02-23 00:00:00 Completed [facility] Zoster Vaccine Recombinant 2021-06-01 00:00:00 Completed [facility] Influenza Virus Vaccine 2021-06-01 00:00:00 Completed [facility] Influenza Virus Vaccine Quad IM, Preserv and ABX Free 6 MO-64 YRS (FLUCELVAX) 2021-06-01 00:00:00 Completed [facility] Zoster Vaccine Recombinant 2021-01-14 00:00:00 Completed [facility] Influenza Virus Vaccine 2021-01-14 00:00:00 Completed [facility] Influenza Virus Vaccine Quad IM, Preserv and ABX Free 6 MO-64 YRS (FLUCELVAX) 2021-01-14 00:00:00 Completed [facility] Influenza Virus Vaccine Quad IM, Preserv and ABX Free 6 MO-64 YRS 2021-01-08 00:00:00 Completed [facility] Influenza Virus Vaccine Quad IM, Preserv and ABX Free 6 MO-64 YRS 2021-01-08 00:00:00 Completed [facility] Influenza Virus Vaccine Quad IM, Preserv and ABX Free 6 MO-64 YRS 2021-01-08 00:00:00 Completed [facility] Influenza Virus Vaccine Quad IM, Preserv and ABX Free 6 MO-64 YRS 2021-01-08 00:00:00 Completed [facility] Influenza Virus Vaccine Quad IM, Preserv and ABX Free 6 MO-64 YRS 2021-01-08 00:00:00 Completed [facility] Influenza Virus Vaccine Quad IM, Preserv and ABX Free 6 MO-64 YRS 2021-01-08 00:00:00 Completed [facility] Influenza Virus Vaccine Quad IM, Preserv and ABX Free 6 MO-64 YRS 2021-01-08 00:00:00 Completed [facility] Influenza Virus Vaccine Quad IM, Preserv and ABX Free 6 MO-64 YRS 2021-01-08 00:00:00 Completed [facility] Influenza Virus Vaccine Quad IM, Preserv and ABX Free 6 MO-64 YRS 2021-01-08 00:00:00 Completed [facility] Influenza Virus Vaccine Quad IM, Preserv and ABX Free 6 MO-64 YRS 2021-01-08 00:00:00 Completed [facility] Influenza Virus Vaccine Quad IM, Preserv and ABX Free 6 MO-64 YRS 2021-01-08 00:00:00 Completed [facility] Influenza Virus Vaccine Quad IM, Preserv and ABX Free 6 MO-64 YRS 2021-01-08 00:00:00 Completed [facility] Influenza Virus Vaccine Quad IM, Preserv and ABX Free 6 MO-64 YRS 2021-01-08 00:00:00 Completed [facility] Influenza Virus Vaccine Quad IM, Preserv and ABX Free 6 MO-64 YRS 2021-01-08 00:00:00 Completed [facility] Influenza Virus Vaccine Quad IM, Preserv and ABX Free 6 MO-64 YRS 2021-01-08 00:00:00 Completed [facility] Influenza Virus Vaccine Quad IM, Preserv and ABX Free 6 MO-64 YRS 2021-01-08 00:00:00 Completed [facility] Influenza Virus Vaccine Quad IM, Preserv and ABX Free 6 MO-64 YRS 2021-01-08 00:00:00 Completed [facility] Influenza Virus Vaccine Quad IM, Preserv and ABX Free 6 MO-64 YRS 2021-01-08 00:00:00 Completed [facility] Influenza Virus Vaccine Quad IM, Preserv and ABX Free 6 MO-64 YRS 2021-01-08 00:00:00 Completed [facility] Influenza Virus Vaccine Quad IM, Preserv and ABX Free 6 MO-64 YRS 2021-01-08 00:00:00 Completed [facility] Influenza Virus Vaccine Quad IM, Preserv and ABX Free 6 MO-64 YRS 2021-01-08 00:00:00 Completed [facility] Influenza Virus Vaccine Quad IM, Preserv and ABX Free 6 MO-64 YRS 2021-01-08 00:00:00 Completed [facility] Zoster Vaccine Recombinant 2020-12-23 00:00:00 Completed [facility] Influenza Virus Vaccine 2020-12-23 00:00:00 Completed [facility] Zoster Vaccine Recombinant 2020-12-08 00:00:00 Completed [facility] Influenza Virus Vaccine 2020-12-08 00:00:00 Completed [facility] Zoster Vaccine Recombinant 2020-10-14 00:00:00 Completed [facility] Influenza Virus Vaccine 2020-10-14 00:00:00 Completed [facility] Influenza Virus Vaccine 2019-11-12 00:00:00 Completed [facility] Influenza Virus Vaccine 2019-11-12 00:00:00 Completed [facility] Influenza Virus Vaccine 2019-11-12 00:00:00 Completed [facility] Influenza Virus Vaccine 2019-11-12 00:00:00 Completed [facility] Influenza Virus Vaccine 2019-11-12 00:00:00 Completed [facility] Influenza Virus Vaccine 2019-11-12 00:00:00 Completed [facility] Influenza Virus Vaccine 2019-11-12 00:00:00 Completed [facility] Influenza Virus Vaccine 2019-11-12 00:00:00 Completed [facility] Influenza Virus Vaccine 2019-11-12 00:00:00 Completed [facility] Influenza Virus Vaccine 2019-11-12 00:00:00 Completed [facility] Influenza Virus Vaccine 2019-11-12 00:00:00 Completed [facility] Influenza Virus Vaccine 2019-11-12 00:00:00 Completed [facility] Influenza Virus Vaccine 2019-11-12 00:00:00 Completed [facility] Influenza Virus Vaccine 2019-11-12 00:00:00 Completed [facility] Influenza Virus Vaccine 2019-11-12 00:00:00 Completed [facility] Influenza Virus Vaccine 2019-11-12 00:00:00 Completed [facility] Influenza Virus Vaccine 2019-11-12 00:00:00 Completed [facility] Influenza Virus Vaccine 2019-11-12 00:00:00 Completed [facility] Influenza Virus Vaccine 2019-11-12 00:00:00 Completed [facility] Influenza Virus Vaccine 2019-11-12 00:00:00 Completed [facility] Influenza Virus Vaccine 2019-11-12 00:00:00 Completed [facility] Influenza Virus Vaccine 2019-11-12 00:00:00 Completed [facility] Zoster Vaccine Recombinant 2019-03-25 00:00:00 Completed [facility] Zoster Vaccine Recombinant 2019-03-25 00:00:00 Completed [facility] Zoster Vaccine Recombinant 2019-03-25 00:00:00 Completed [facility] Zoster Vaccine Recombinant 2019-03-25 00:00:00 Completed [facility] Zoster Vaccine Recombinant 2019-03-25 00:00:00 Completed [facility] Zoster Vaccine Recombinant 2019-03-25 00:00:00 Completed [facility] Zoster Vaccine Recombinant 2019-03-25 00:00:00 Completed [facility] Zoster Vaccine Recombinant 2019-03-25 00:00:00 Completed [facility] Zoster Vaccine Recombinant 2019-03-25 00:00:00 Completed [facility] Zoster Vaccine Recombinant 2019-03-25 00:00:00 Completed [facility] Zoster Vaccine Recombinant 2019-03-25 00:00:00 Completed [facility] Zoster Vaccine Recombinant 2019-03-25 00:00:00 Completed [facility] Zoster Vaccine Recombinant 2019-03-25 00:00:00 Completed [facility] Zoster Vaccine Recombinant 2019-03-25 00:00:00 Completed [facility] Zoster Vaccine Recombinant 2019-03-25 00:00:00 Completed [facility] Zoster Vaccine Recombinant 2019-03-25 00:00:00 Completed [facility] Zoster Vaccine Recombinant 2019-03-25 00:00:00 Completed [facility] Zoster Vaccine Recombinant 2019-03-25 00:00:00 Completed [facility] Zoster Vaccine Recombinant 2019-03-25 00:00:00 Completed [facility] Zoster Vaccine Recombinant 2019-03-25 00:00:00 Completed [facility] Zoster Vaccine Recombinant 2019-03-25 00:00:00 Completed [facility] Zoster Vaccine Recombinant 2019-03-25 00:00:00 Completed [facility] Zoster Vaccine Recombinant 2019-01-18 00:00:00 Completed [facility] Zoster Vaccine Recombinant 2019-01-18 00:00:00 Completed [facility] Zoster Vaccine Recombinant 2019-01-18 00:00:00 Completed [facility] Zoster Vaccine Recombinant 2019-01-18 00:00:00 Completed [facility] Zoster Vaccine Recombinant 2019-01-18 00:00:00 Completed [facility] Zoster Vaccine Recombinant 2019-01-18 00:00:00 Completed [facility] Zoster Vaccine Recombinant 2019-01-18 00:00:00 Completed [facility] Zoster Vaccine Recombinant 2019-01-18 00:00:00 Completed [facility] Zoster Vaccine Recombinant 2019-01-18 00:00:00 Completed [facility] Zoster Vaccine Recombinant 2019-01-18 00:00:00 Completed [facility] Zoster Vaccine Recombinant 2019-01-18 00:00:00 Completed [facility] Zoster Vaccine Recombinant 2019-01-18 00:00:00 Completed [facility] Zoster Vaccine Recombinant 2019-01-18 00:00:00 Completed [facility] Zoster Vaccine Recombinant 2019-01-18 00:00:00 Completed [facility] Zoster Vaccine Recombinant 2019-01-18 00:00:00 Completed [facility] Zoster Vaccine Recombinant 2019-01-18 00:00:00 Completed [facility] Zoster Vaccine Recombinant 2019-01-18 00:00:00 Completed [facility] Zoster Vaccine Recombinant 2019-01-18 00:00:00 Completed [facility] Zoster Vaccine Recombinant 2019-01-18 00:00:00 Completed [facility] Zoster Vaccine Recombinant 2019-01-18 00:00:00 Completed [facility] Zoster Vaccine Recombinant 2019-01-18 00:00:00 Completed [facility] Zoster Vaccine Recombinant 2019-01-18 00:00:00 Completed [facility] Vital Signs Vital Name Observation Time Observation Value Comments S ource Body weight 2024-09-30 20:26:00 86.637 kg [facility] BMI 2024-09-30 20:26:00 37.30 kg/m2 [facility] Systolic blood pressure 2024-09-16 20:46:00 140 mm[Hg] [facility] Diastolic blood pressure 2024-09-16 20:46:00 72 mm[Hg] [facility] Heart rate 2024-09-16 20:46:00 61 /min [facility] Respiratory rate 2024-09-16 20:37:00 20 /min [facility] Body height 2024-09-16 20:37:00 152.4 cm [facility] Body weight 2024-09-16 20:37:00 86.818 kg [facility] BMI 2024-09-16 20:37:00 37.38 kg/m2 [facility] Oxygen saturation in Arterial blood by Pulse oximetry 2024-09-16 20:37:00 100 /min [facility] Systolic blood pressure 2024-06-14 19:05:00 130 mm[Hg] [facility] Diastolic blood pressure 2024-06-14 19:05:00 74 mm[Hg] [facility] Heart rate 2024-06-14 19:05:00 63 /min [facility] Body temperature 2024-06-14 19:05:00 36.94 Aura [facility] Respiratory rate 2024-06-14 19:05:00 20 /min [facility] Body height 2024-06-14 19:05:00 154.9 cm [facility] Body weight 2024-06-14 19:05:00 85.911 kg [facility] BMI 2024-06-14 19:05:00 35.79 kg/m2 [facility] Oxygen saturation in Arterial blood by Pulse oximetry 2024-06-14 19:05:00 99 /min [facility] height 2024-04-09 14:30:00 61 [in_i] [facility] weight-kg 2024-04-09 14:30:00 88 kg [facility] bmi 2024-04-09 14:30:00 36.65 [facility] 2024-04-09 14:30:00 96.7 [degF] [facility] respiratory rate 2024-04-09 14:30:00 16 /min [facility] heart rate 2024-04-09 14:30:00 64 /min [facility] Body weight 2024-03-19 21:31:00 87.091 kg [facility] BMI 2024-03-19 21:31:00 34.01 kg/m2 [facility] Systolic blood pressure 2024-02-22 19:25:00 138 mm[Hg] [facility] Diastolic blood pressure 2024-02-22 19:25:00 85 mm[Hg] [facility] Heart rate 2024-02-22 19:25:00 78 /min [facility] Body height 2024-02-22 19:25:00 160 cm [facility] Body weight 2024-02-22 19:25:00 87.454 kg [facility] BMI 2024-02-22 19:25:00 34.15 kg/m2 [facility] Oxygen saturation in Arterial blood by Pulse oximetry 2024-02-22 19:25:00 97 /min [facility] height 2024-02-05 14:30:00 61 [in_i] [facility] weight[facility]kg 2024-02-05 14:30:00 [facility] 2024-02-05 14:30:00 37.41 [facility]m2 [facility] temperature 2024-02-05 14:30:00 96.3 [degF] [facility] respiratory rate 2024-02-05 14:30:00 16 /min [facility] heart rate 2024-02-05 14:30:00 61 /min [facility] blood pressure systolic 2024-02-05 14:30:00 140 mm[Hg] [facility] blood [facility] diastolic 2024-02-05 14:30:00 78 mm[Hg] [facility] Body weight 2024-01-16 21:21:00 92.534 kg [facility] BMI 2024-01-16 21:21:00 38.55 kg/m2 [facility] blood pressure diastolic 2024-01-02 15:45:00 80 mm[Hg] [facility] height 2024-01-02 15:45:00 61 [in_i] [facility] weight[facility] 2024-01-02 15:45:00 90.17 kg [facility] bmi 2024-01-02 15:45:00 37.56 kg/m2 [facility] temperature 2024-01-02 15:45:00 96.9 [degF] [facility] heart rate 2024-01-02 15:45:00 75 /min [facility] blood pressure systolic 2024-01-02 15:45:00 145 mm[Hg] [facility] Body weight 2023-11-07 18:07:00 92.534 kg [facility] BMI 2023-11-07 18:07:00 38.55 kg/m2 [facility] Systolic blood pressure 2023-10-30 16:08:00 138 mm[Hg] [facility] Diastolic blood pressure 2023-10-30 16:08:00 67 mm[Hg] [facility] Heart rate 2023-10-30 16:08:00 67 /min [facility] Body temperature 2023-10-30 16:08:00 36.5 Aura [facility] Respiratory rate 2023-10-30 16:08:00 18 /min [facility] Body height 2023-10-30 16:08:00 154.9 cm [facility] Body weight 2023-10-30 16:08:00 92.676 kg [facility] BMI 2023-10-30 16:08:00 38.60 kg/m2 [facility] Oxygen saturation in Arterial blood by Pulse oximetry 2023-10-30 16:08:00 98 /min [facility] Systolic blood pressure 2023-10-26 12:18:00 148 mm[Hg] reported to nurse [facility] Diastolic blood pressure 2023-10-26 12:18:00 70 mm[Hg] reported to nurse [facility] Heart rate 2023-10-26 12:18:00 66 /min [facility] Body temperature 2023-10-26 12:18:00 36.33 Aura [facility] Respiratory rate 2023-10-26 12:18:00 18 /min [facility] Oxygen saturation in Arterial blood by Pulse oximetry 2023-10-26 12:18:00 95 /min [facility] Body height 2023-10-26 04:51:00 154.9 cm [facility] Body weight 2023-10-26 04:51:00 91.627 kg [facility] BMI 2023-10-26 04:51:00 38.17 kg/m2 [facility] Systolic blood pressure 2023-10-25 15:45:00 145 mm[Hg] [facility] Diastolic blood pressure 2023-10-25 15:45:00 62 mm[Hg] [facility] Heart rate 2023-10-25 15:45:00 64 /min [facility] Respiratory rate 2023-10-25 15:45:00 18 /min [facility] Oxygen saturation in Arterial blood by Pulse oximetry 2023-10-25 15:45:00 100 /min [facility] Body temperature 2023-10-25 05:34:00 36.78 Aura [facility] Body height 2023-10-25 05:34:00 154.9 cm [facility] Body weight 2023-10-25 05:34:00 91.627 kg [facility] BMI 2023-10-25 05:34:00 38.17 kg/m2 [facility] Systolic blood pressure 2023-10-25 04:08:00 145 mm[Hg] [facility] Diastolic blood pressure 2023-10-25 04:08:00 68 mm[Hg] [facility] Heart rate 2023-10-25 04:08:00 64 /min [facility] Body temperature 2023-10-25 04:08:00 36.67 Aura [facility] Respiratory rate 2023-10-25 04:08:00 16 /min [facility] Oxygen saturation in Arterial blood by Pulse oximetry 2023-10-25 04:08:00 97 /min [facility] Body height 2023-10-25 01:49:00 154.9 cm [facility] Body weight 2023-10-25 01:49:00 91.989 kg [facility] BMI 2023-10-25 01:49:00 38.32 kg/m2 [facility] Body weight 2023-10-13 18:06:00 94.802 kg [facility] BMI 2023-10-13 18:06:00 40.82 kg/m2 [facility] height 2023-10-02 11:00:00 61 [in_i] [facility] weight-[facility] 2023-10-02 11:00:00 93.03 kg [facility] bmi 2023-10-02 11:00:00 38.75 kg/m2 [facility] temperature 2023-10-02 11:00:00 96.8 [degF] [facility] respiratory rate 2023-10-02 11:00:00 16 /min [facility] heart rate 2023-10-02 11:00:00 73 /min [facility] blood pressure systolic 2023-10-02 11:00:00 137 mm[Hg] [facility] blood pressure diastolic 2023-10-02 11:00:00 68 mm[Hg] [facility] Body weight 2023-09-08 18:23:00 94.802 kg [facility] BMI 2023-09-08 18:23:00 40.82 kg/m2 [facility] Systolic blood pressure 2023-09-07 15:25:00 131 mm[Hg] [facility] Diastolic blood pressure 2023-09-07 15:25:00 68 mm[Hg] [facility] Heart rate 2023-09-07 15:25:00 57 /min [facility] Respiratory rate 2023-09-07 15:25:00 15 /min [facility] Oxygen saturation in Arterial blood by Pulse oximetry 2023-09-07 15:25:00 98 /min [facility] Body temperature 2023-09-07 14:45:00 36.17 Aura [facility] Body height 2023-09-07 12:25:00 152.4 cm [facility] Body weight 2023-09-07 12:25:00 94.802 kg [facility] BMI 2023-09-07 12:25:00 40.82 kg/m2 [facility] Systolic blood pressure 2023-09-07 15:25:00 131 mm[Hg] [facility] Diastolic blood pressure 2023-09-07 15:25:00 68 mm[Hg] [facility] Heart rate 2023-09-07 15:25:00 57 /min [facility] Respiratory rate 2023-09-07 15:25:00 15 /min [facility] Oxygen saturation in Arterial blood by Pulse oximetry 2023-09-07 15:25:00 98 /min [facility] Body temperature 2023-09-07 14:45:00 36.17 Aura [facility] Body height 2023-09-07 12:25:00 152.4 cm [facility] Body weight 2023-09-07 12:25:00 94.802 kg [facility] BMI 2023-09-07 12:25:00 40.82 kg/m2 [facility] height 2023-09-01 10:00:00 61 [in_i] [facility] weight-kg 2023-09-01 10:00:00 95.35 kg [facility] bmi 2023-09-01 10:00:00 39.71 kg/m2 [facility] temperature 2023-09-01 10:00:00 97.0 [degF] [facility] respiratory rate 2023-09-01 10:00:00 16 /min [facility] heart rate 2023-09-01 10:00:00 64 /min [facility] blood pressure systolic 2023-09-01 10:00:00 115 mm[Hg] [facility] blood pressure diastolic 2023-09-01 10:00:00 66 mm[Hg] [facility] Body weight 2023-08-28 13:18:00 94.348 kg [facility] BMI 2023-08-28 13:18:00 40.62 kg/m2 [facility] Systolic blood pressure 2023-08-21 15:11:00 120 mm[Hg] [facility] Diastolic blood pressure 2023-08-21 15:11:00 82 mm[Hg] [facility] Heart rate 2023-08-21 15:11:00 64 /min [facility] Body weight 2023-08-21 14:53:00 94.348 kg [facility] BMI 2023-08-21 14:53:00 40.62 kg/m2 [facility] Body height 2023-07-19 19:02:00 152.4 cm [facility] Body weight 2023-07-19 19:02:00 99.927 kg [facility] BMI 2023-07-19 19:02:00 43.02 kg/m2 [facility] Body weight 2023-07-18 18:13:00 102.513 kg [facility] BMI 2023-07-18 18:13:00 44.14 kg/m2 [facility] Systolic blood pressure 2023-06-26 17:06:00 130 mm[Hg] [facility] Diastolic blood pressure 2023-06-26 17:06:00 59 mm[Hg] [facility] Heart rate 2023-06-26 17:06:00 71 /min [facility] Body height 2023-06-26 17:06:00 152.4 cm [facility] Body weight 2023-06-26 17:06:00 102.83 kg [facility] BMI 2023-06-26 17:06:00 44.27 kg/m2 [facility] Oxygen saturation in Arterial blood by Pulse oximetry 2023-06-26 17:06:00 96 /min [facility] Systolic blood pressure 2023-03-15 16:51:00 140 mm[Hg] [facility] Diastolic blood pressure 2023-03-15 16:51:00 60 mm[Hg] [facility] Heart rate 2023-03-15 16:49:00 54 /min [facility] Body temperature 2023-03-15 16:49:00 36.61 Aura [facility] Respiratory rate 2023-03-15 16:49:00 18 /min [facility] Body height 2023-03-15 16:49:00 154.9 cm [facility] Body weight 2023-03-15 16:49:00 101.334 kg [facility] BMI 2023-03-15 16:49:00 42.21 kg/m2 [facility] Oxygen saturation in Arterial blood by Pulse oximetry 2023-03-15 16:49:00 98 /min [facility] Systolic blood pressure 2023-02-09 16:06:00 144 mm[Hg] [facility] Diastolic blood pressure 2023-02-09 16:06:00 64 mm[Hg] [facility] Heart rate 2023-02-09 16:05:00 65 /min [facility] Body temperature 2023-02-09 16:05:00 36.72 Aura [facility] Body height 2023-02-09 16:05:00 154.9 cm [facility] Body weight 2023-02-09 16:05:00 105.144 kg [facility] BMI 2023-02-09 16:05:00 43.80 kg/m2 [facility] Systolic blood pressure 2023-01-16 14:12:00 138 mm[Hg] [facility] Diastolic blood pressure 2023-01-16 14:12:00 69 mm[Hg] [facility] Heart rate 2023-01-16 14:12:00 59 /min [facility] Respiratory rate 2023-01-16 14:12:00 19 /min [facility] Body height 2023-01-16 14:12:00 154.9 cm [facility] Body weight 2023-01-16 14:12:00 105.824 kg [facility] BMI 2023-01-16 14:12:00 44.08 kg/m2 [facility] Oxygen saturation in Arterial blood by Pulse oximetry 2023-01-16 14:12:00 96 /min [facility] Systolic blood pressure 2023-01-09 20:15:00 174 mm[Hg] [facility] Diastolic blood pressure 2023-01-09 20:15:00 77 mm[Hg] [facility] Heart rate 2023-01-09 20:15:00 61 /min [facility] Body height 2023-01-09 20:15:00 154.9 cm [facility] Body weight 2023-01-09 20:15:00 105.824 kg [facility] BMI 2023-01-09 20:15:00 44.08 kg/m2 [facility] Oxygen saturation in Arterial blood by Pulse oximetry 2023-01-09 20:15:00 99 /min [facility] Systolic blood pressure 2023-01-05 18:16:00 147 mm[Hg] [facility] Diastolic blood pressure 2023-01-05 18:16:00 69 mm[Hg] [facility] Heart rate 2023-01-05 18:04:00 54 /min [facility] Body temperature 2023-01-05 18:04:00 36.67 Aura [facility] Body height 2023-01-05 18:04:00 154.9 cm [facility] Body weight 2023-01-05 18:04:00 105.235 kg [facility] BMI 2023-01-05 18:04:00 43.84 kg/m2 [facility] Oxygen saturation in Arterial blood by Pulse oximetry 2023-01-05 18:04:00 100 /min [facility] Systolic blood pressure 2022-08-05 17:43:00 153 mm[Hg] [facility] Diastolic blood pressure 2022-08-05 17:43:00 83 mm[Hg] [facility] Heart rate 2022-08-05 17:40:00 62 /min [facility] Body temperature 2022-08-05 17:40:00 36.61 Aura [facility] Respiratory rate 2022-08-05 17:40:00 18 /min [facility] Body height 2022-08-05 17:40:00 157.5 cm [facility] Body weight 2022-08-05 17:40:00 104.463 kg [facility] BMI 2022-08-05 17:40:00 42.12 kg/m2 [facility] Oxygen saturation in Arterial blood by Pulse oximetry 2022-08-05 17:40:00 99 /min [facility] Systolic blood pressure 2022-06-13 16:50:00 140 mm[Hg] [facility] Diastolic blood pressure 2022-06-13 16:50:00 78 mm[Hg] [facility] Heart rate 2022-06-13 16:50:00 57 /min [facility] Body weight 2022-06-13 16:50:00 103.964 kg [facility] BMI 2022-06-13 16:50:00 44.76 kg/m2 [facility] Oxygen saturation in Arterial blood by Pulse oximetry 2022-06-13 16:50:00 99 /min [facility] Systolic blood pressure 2022-02-21 21:25:00 155 mm[Hg] [facility] Diastolic blood pressure 2022-02-21 21:25:00 78 mm[Hg] [facility] Heart rate 2022-02-21 21:14:00 63 /min [facility] Body weight 2022-02-21 21:14:00 100.699 kg [facility] BMI 2022-02-21 21:14:00 43.36 kg/m2 [facility] Oxygen saturation in Arterial blood by Pulse oximetry 2022-02-21 21:14:00 95 /min [facility] Procedures Procedure Date / Time Performed Performing Clinician Source INTRAVITREAL INJECTION, PHARMACOLOGIC AGENT - OD - RIGHT EYE 2024-09-30 20:50:04 Carmelina Chaidez [facility] OCT, RETINA - OU - BOTH EYES 2024-09-30 20:49:46 Carmelina Chaidez [facility] POCT HEMOGLOBIN A1C TEST 2024-09-16 20:46:00 Lucius Fraser [facility] INTRAVITREAL INJECTION, PHARMACOLOGIC AGENT - OD - RIGHT EYE 2024-07-23 18:38:24 Carmelina Chaidez [facility] OCT, RETINA - OU - BOTH EYES 2024-07-23 18:38:15 Carmelina Chaidez [facility] LIPASE 2024-06-14 19:40:00 Rocio Roberto [facility] COMP. METABOLIC PANEL ([id number]) 2024-06-14 19:40:00 Rocio Robreto [facility] CBC WITH DIFF 2024-06-14 19:40:00 Rocio Roberto [facility] RADIOLOGY DOCUMENTATION 2024-06-02 16:06:11 Doctor Unassigned, [facility] INTRAVITREAL INJECTION, PHARMACOLOGIC AGENT - OD - RIGHT EYE 2024-03-19 21:50:36 Mary [facility] OCT, RETINA - OU - BOTH EYES 2024-03-19 21:49:47 Mary [facility] INTRAVITREAL INJECTION, PHARMACOLOGIC AGENT - OD - RIGHT EYE 2024-01-05 21:24:32 Mary [facility] OCT, RETINA - OU - BOTH EYES 2024-01-02 21:36:04 Mary [facility] OCT, RETINA - OU - BOTH EYES 2023-11-07 18:50:05 Jhon Ayala [facility] POCT HEMOGLOBIN A1C TEST 2023-10-30 00:00:00 Lucius Fraser [facility] POCT GLUCOSE (AUTOMATED) 2023-10-26 13:29:00 Mary [facility] POCT GLUCOSE (AUTOMATED) 2023-10-26 13:29:00 Mary [facility] POCT GLUCOSE (AUTOMATED) 2023-10-26 03:16:00 Mary [facility] POCT GLUCOSE (AUTOMATED) 2023-10-26 03:16:00 Mary [facility] [id number] - [place] VITRECTOMY MCHNL PARS PLNA FOCAL ENDOLASER PC 2023-10-26 01:17:00 Mary [facility] [id number] - [place] VTRECTOMY MCHNL PARS PLNA ENDOLASER PANRTA PC 2023-10-26 01:17:00 Mary [facility] [id number] - [place] IMPLTJ INTRAVITREAL DRUG DLVR SYS RMVL VTS 2023-10-26 01:17:00 Banromario, [facility] [address] - [place] VITRECTOMY MCHNL PARS PLNA FOCAL ENDOLASER PC 2023-10-26 01:17:00 Banaee, [facility] [id number] - [place] VTRECTOMY MCHNL PARS PLNA ENDOLASER PANRTA PC 2023-10-26 01:17:00 Banromario, [facility] [address] - [place] IMPLTJ INTRAVITREAL DRUG DLVR SYS RMVL VTS 2023-10-26 01:17:00 Banromario, [facility] POCT GLUCOSE (AUTOMATED) 2023-10-25 22:07:00 Banriane, [facility] POCT GLUCOSE (AUTOMATED) 2023-10-25 22:07:00 Banromario, [facility] POCT GLUCOSE (AUTOMATED) 2023-10-25 18:40:00 Banromario, [facility] POCT GLUCOSE (AUTOMATED) 2023-10-25 18:40:00 Banromario, [facility] OCT, RETINA - OU - BOTH EYES 2023-10-13 18:47:35 Banromario, [facility] [id number] - [place] VITRECTOMY MECHANICAL PARS PLANA 2023-09-07 12:46:00 Banromario, [facility] [address] - [place] VTRECTOMY MCHNL PARS PLNA ENDOLASER PANRTA PC 2023-09-07 12:46:00 Banromario, [facility] PHACOEMULSIFICATION OF CATARACT WITH INTRAOCULAR LENS IMPLANT 2023-09-07 12:46:00 Banromario, [facility] POCT GLUCOSE (AUTOMATED) 2023-09-07 12:35:00 Banromario, [facility] POCT GLUCOSE (AUTOMATED) 2023-09-07 12:35:00 Mary, [facility] INTRAVITREAL INJECTION, PHARMACOLOGIC AGENT - OD - RIGHT EYE 2023-08-28 13:51:32 Mary, [facility] OCT, RETINA - OU - BOTH EYES 2023-08-28 13:51:14 Mary [facility] OCT, RETINA - OU - BOTH EYES 2023-08-21 22:45:08 Carmelina Chaidez [facility] IOL BIOMETRY - OU - BOTH EYES 2023-08-21 22:44:58 Tiffany Marie [facility] OPHTHALMOLOGY DIAGNOSTIC TEST 2023-08-21 19:43:34 Doctor Unassigned, [facility] DSU PRE-OP 2023-08-21 19:41:28 Doctor Unassigned, [facility] OCT, RETINA - OU - BOTH EYES 2023-07-18 23:57:47 Shereen Bejarano [facility] POCT HEMOGLOBIN A1C TEST 2023-06-26 17:07:00 Lucius Fraser [facility] BI SCREENING TOMOSYNTHESIS BILATERAL 2023-03-31 16:43:49 Cordell Manley [facility] POCT URINALYSIS W/O SPECIFIC GRAVITY 2023-02-09 00:00:00 Cordell Manley [facility] INSURANCE CORRESPONDENCE 2023-02-08 06:01:00 Doctor Unassigned, [facility] FL UPPER GI SERIES 2023-01-26 15:38:01 Gemini Alexander [facility] POCT HEMOGLOBIN A1C TEST 2023-01-09 20:16:00 Abbey Negrete [facility] DIABETES TESTING REPORTS 2023-01-09 05:01:00 Doctor Unassigned, [facility] DME/SUPPLY JUSTIFICATION 2022-09-09 05:01:00 Doctor Unassigned, [facility] POCT HEMOGLOBIN A1C TEST 2022-06-13 17:03:00 Abbey Negrete [facility] ASSIGNMENT OF BENEFITS 2022-06-13 16:29:52 Doctor Unassigned, [facility] POCT HEMOGLOBIN A1C TEST 2022-02-21 21:26:00 Abbey Negrete [facility] [id number] 2021-06-24 00:00:00 CHAAB.01 [facility] [id number] 2021-06-24 00:00:00 CHAAB.01 [facility] [id number] 2021-06-24 00:00:00 CHAA[facility].01 [facility] [id number] 2021-06-24 00:00:00 CHAA[facility].01 [facility] [id number] 2021-06-24 00:00:00 CHAAB.01 [facility] [id number] 2021-06-24 00:00:00 CHAAB.01 [facility] [id number] 2021-06-23 00:00:00 RASSA [facility] [id number] 2021-06-23 00:00:00 RASSA [facility] [id number] 2021-06-23 00:00:00 RASSA [facility] [id number] 2021-06-23 00:00:00 RASSA [facility] [id number] 2021-06-23 00:00:00 RASSA [facility] [id number] 2021-06-23 00:00:00 RASSA [facility] MEDICATION CORRESPONDENCE 2017-07-02 05:01:00 Doctor Unassigned, [facility] INSURANCE CORRESPONDENCE 2017-05-25 05:01:00 Doctor Unassigned, [facility] CONSENT/REFUSAL FOR DIAGNOSI S AND TREATMENT 2017-04-24 21:42:31 Doctor Unassigned, [facility] ASSIGNMENT OF BENEFITS 2017-04-24 21:42:16 Doctor Unassigned, [facility] Plan of Care Planned Activity Planned Date Details Comments Source Future Scheduled Test 2021-11-11 00:00:00 INFLUENZA VACCINE (Season Ended) [code = INFLUENZA VACCINE (Season Ended)] [facility] Future Scheduled Test 2021-03-13 00:00:00 DEPRESSION SCREENING (12+) [code = DEPRESSION SCREENING (12+)] [facility] Future Scheduled Test 2020-11-11 00:00:00 INFLUENZA VACCINE (#1) [code = INFLUENZA VACCINE (#1)] [facility] Future Scheduled Test 2020-03-13 00:00:00 DEPRESSION SCREENING (12+) [code = DEPRESSION SCREENING (12+)] [facility] Future Scheduled Test 2019-01-15 00:00:00 Hemoglobin A1c measurement (procedure) [code = 75968483] [facility] Future Scheduled Test 2019-01-15 00:00:00 Hemoglobin A1c measurement (procedure) [code = 51056980] [facility] Future Scheduled Test 2012 00:00:00 SHINGLES VACCINES (1 of 2) [code = SHINGLES VACCINES (1 of 2)] [facility] Future Scheduled Test 2012 00:00:00 SHINGLES VACCINES (1 of 2) [code = SHINGLES VACCINES (1 of 2)] [facility] Future Scheduled Test 2007 00:00:00 Lipid panel (procedure) [code = 11054553] [facility] Future Scheduled Test 2007 00:00:00 Lipid panel (procedure) [code = 45996705] [facility] Future Scheduled Test 1983 00:00:00 Screening for malignant neoplasm of cervix (procedure) [code = 179719937] [facility] Future Scheduled Test 1983 00:00:00 Screening for malignant neoplasm of cervix (procedure) [code = 192242597] [facility] Future Scheduled Test 1981 00:00:00 DTAP/TDAP/TD VACCINES (1 - Tdap) [code = DTAP/TDAP/TD VACCINES (1 - Tdap)] [facility] Future Scheduled Test 1981 00:00:00 DTAP/TDAP/TD VACCINES (1 - Tdap) [code = DTAP/TDAP/TD VACCINES (1 - Tdap)] [facility] Future Scheduled Test 1980 00:00:00 HEPATITIS C SCREENING [code = HEPATITIS C SCREENING] [facility] Future Scheduled Test 1980 00:00:00 HEPATITIS C SCREENING [code = HEPATITIS C SCREENING] [facility] Future Scheduled Test 1974 00:00:00 COVID-19 VACCINE (1) [code = COVID-19 VACCINE (1)] [facility] Future Scheduled Test 1972 00:00:00 DIABETIC EYE EXAM [code = DIABETIC EYE EXAM] [facility] Future Scheduled Test 1972 00:00:00 Diabetic foot examination (regime/therapy) [code = 032166851] [facility] Future Scheduled Test 1972 00:00:00 Urine screening for protein (procedure) [code = 012021323] [facility] Future Scheduled Test 1972 00:00:00 DIABETIC EYE EXAM [code = DIABETIC EYE EXAM] [facility] Future Scheduled Test 1972 00:00:00 Diabetic foot examination (regime/therapy) [code = 191909377] [facility] Future Scheduled Test 1972 00:00:00 Urine screening for protein (procedure) [code = 457056662] [facility] Future Scheduled Test 1968 00:00:00 PNEUMOCOCCAL VACCINE 0-64 YRS (1 of 2 - PPSV23) [code = PNEUMOCOCCAL VACCINE 0-64 YRS (1 of 2 - PPSV23)] [facility] Future Scheduled Test 1968 00:00:00 PNEUMOCOCCAL VACCINE 0-64 YRS (1 of 2 - PPSV23) [code = PNEUMOCOCCAL VACCINE 0-64 YRS (1 of 2 - PPSV23)] [facility] Future Scheduled Test 1967 00:00:00 COVID-19 VACCINE (1) [code = COVID-19 VACCINE (1)] [facility] Future Scheduled Test 1962 00:00:00 Screening for malignant neoplasm of breast (procedure) [code = 394923898] [facility] Future Scheduled Test 1962 00:00:00 Screening for malignant neoplasm of colon (procedure) [code = 686070377] [facility] Future Scheduled Test 1962 00:00:00 Screening for malignant neoplasm of breast (procedure) [code = 802953892] [facility] Future Scheduled Test 1962 00:00:00 CT Colonography (combo) [code = CT Colonography (combo)] [facility] Future Scheduled Test 1962 00:00:00 Screening for malignant neoplasm of colon (procedure) [code = 958445689] [facility] Future Scheduled Test 1962 00:00:00 Screening for malignant neoplasm of colon (procedure) [code = 393673705] [facility] Future Scheduled Test 1962 00:00:00 Screening for malignant neoplasm of colon (procedure) [code = 566100148] [facility] Future Scheduled Test 1962 00:00:00 Screening for malignant neoplasm of colon (procedure) [code = 402223600] [facility] Future Scheduled Test 1962 00:00:00 Sigmoidoscopy [code = Sigmoidoscopy] [facility] Encounters Start Date/Time End Date/Time Encounter Type Admission Type Attending Clinicians Care Facility Care Department Encounter ID Source 2023-09-01 09:55:01 Outpatient Christiano Núñez CLS [id number] [facility] 2023-04-10 12:01:47 Outpatient GEMINI DE LA FUENTE [facility] [id number] [facility] 2023-02-08 07:52:09 Outpatient GEMINI DE LA FUENTE [facility] [id number] [facility] 2023-01-26 08:36:25 Emergency X [facility] [id number] [facility] 2021-01-12 01:13:37 Emergency [facility] [id number] [facility] 2021-01-09 14:10:03 Emergency [facility] [id number] [facility] 2024-10-03 14:00:00 2024-10-03 14:00:00 Outpatient ROCIO ANN [facility] [id number] [facility] 2024-09-30 15:00:00 2024-09-30 15:57:10 Imm/Inj Visit Carmelina Squires [facility] [employer] [facility]. 1.2.840.114 350.1.13.10 4.2.7.2.686 [id number] 136 [id number] [facility] 2024-09-30 15:05:00 2024-09-30 15:05:00 Outpatient CARMELINA CHAIDEZ [facility] [id number] [facility] 2024-09-17 00:00:00 2024-09-18 18:18:43 Telephone [facility]idez [facility] 1.2840.114 350.1.13.10 4.2.7.2.686 [id number] 136 [id number] [facility] 2024-09-17 13:00:00 2024-09-17 13:00:00 Outpatient CARMELINA SQUIRES [facility] [id number] [facility] 2024-09-16 16:00:00 2024-09-16 16:28:33 Office Visit [facility] 1..840.114 350.1.13.10 4.2.7.2.686 [id number] 220 [id number] [facility] 2024-08-16 14:00:00 2024-08-16 14:00:00 Outpatient CARMELINA SQUIRES [facility] [id number] [facility] 2024-08-08 00:00:00 2024-08-08 11:16:07 Refill Lucius Fraser [facility] 1.2.840.114 350.1.13.10 4.2.7.2.686 [id number] 220 [id number] [facility] 2024-07-25 00:00:00 2024-07-25 14:39:23 Telephone Rocio Roberto [facility] 1..840.114 350.1.13.10 4.2.7.2.686 [id number] 044 [id number] [facility] 2024-07-23 13:15:00 2024-07-23 13:58:10 Outpatient CARMELINA SQUIRES [facility] [id number] [facility] 2024-07-23 13:15:00 2024-07-23 13:58:10 Imm/Inj Visit [facility] 1.840.114 350.1.13.10 4.2.7.2.686 [id number] 136 [id number] [facility] 2024-07-17 00:00:00 2024-07-17 14:22:54 Telephone McintoshCynthiabety [facility] 1.840.114 350.1.13.10 4.2.7.2.686 [id number] 220 [id number] [facility] 2024-07-17 14:00:00 2024-07-17 14:00:00 Outpatient R LEXI COBB [facility] [id number] [facility] 2024-07-08 15:00:00 2024-07-08 15:00:00 Outpatient R CORDELL MANLEY VIEN [facility] [id number] [facility] 2019-07-12 00:00:00 2024-07-04 21:58:53 RefJan Arellano [facility] 1.2.840.114 350.1.13.10 4.2.7.2.686 [id number] [facility] 2019-08-14 00:00:00 2024-07-04 21:58:05 Jan Nguyen [facility] 1.2.840.114 350.1.13.10 4.2.7.2.686 [id number] [facility] 2023-03-15 00:00:00 2024-07-04 21:13:11 Letter (Out) Rocio Roberto [facility] 1.2840.114 350.1.13.10 4.2.7.2.686 [id number] [id number] [facility] 2024-07-02 11:20:00 2024-07-02 11:20:00 Outpatient R RIA HINOJOSA [facility] [id number] [facility] 2024-06-25 15:15:00 2024-06-25 15:15:00 Outpatient R CORDELL MANLEY VIEN [facility] [id number] [facility] 2024-06-20 15:40:00 2024-06-20 15:40:00 Outpatient R RIA HINOJOSA [facility] [id number] [facility] 2024-06-19 00:00:00 2024-06-19 09:42:14 Telephone Rocio Roberto [facility] 1.2.840.114 350.1.13.10 4.2.7.2.686 [id number] 044 [id number] [facility] 2024-06-14 14:30:00 2024-06-14 14:45:00 Linux Administrator Visit Lab, Ang - Rocio Almendarez, Ang - Quinn [facility] 1.2.840.114 350.1.13.10 4.2.7.2.686 [id number] [facility] 2024-06-14 14:00:00 2024-06-14 14:24:25 Outpatient R ROCIO ROBERTO [facility] [id number] [facility] 2024-06-14 14:00:00 2024-06-14 14:24:25 Office Visit Rocio Roberto [facility] 1.2.840.114 350.1.13.10 4.2.7.2.686 [id number] 044 [id number] [facility] 2024-06-06 14:00:00 2024-06-06 14:00:00 Outpatient CORDELL KAUR VIEN [facility] [id number] [facility] 2024-06-02 00:00:00 2024-06-03 02:02:52 Orders Only Doctor Unassigned, Heron Doctor Unassigned, Heron [facility] 1.2.840.114 350.1.13.10 4.2.7.2.686 [id number] [facility] 2024-05-21 10:30:00 2024-05-21 11:52:57 Outpatient CARMELINA SQUIRES [facility] [id number] [facility] 2024-05-14 13:00:00 2024-05-14 13:00:00 Outpatient CARMELINA SQUIRES [facility] [id number] [facility] 2024-05-14 00:00:00 2024-05-14 09:53:26 Telephone Carmelina Chaidez [facility] 1.840.114 350.1.13.10 4.2.7.2.686 [id number] 136 [id number] [facility] 2024-05-10 00:00:00 2024-05-10 00:00:00 (TEL[facility] [id number] [facility] 2024-04-30 00:00:00 2024-05-08 16:51:02 Telephone Rocio Roberto [facility] 1.2.840.114 350.1.13.10 4.2.7.2.686 [id number] 044 [id number] [facility] 2024-05-06 00:00:00 2024-05-06 11:31:11 Telephone Ji Mcintosh [facility] 1.2.840.114 350.1.13.10 4.2.7.2.686 [id number] 220 [id number] [facility] 2024-05-01 14:00:00 2024-05-01 14:00:00 Outpatient ROCIO ANN [facility] [id number] [facility] 2024-04-26 00:00:00 2024-04-29 14:43:10 Lucius Ivey [facility] 1.2.840.114 350.1.13.10 4.2.7.2.686 [id number] 220 [id number] [facility] 2017-04-24 00:00:00 2024-04-27 03:26:36 Orders Only Doctor Unassigned, Heron Doctor Unassigned, Heron [facility] ([place]) 1.2.840.114 350.1.13.10 4.2.7.2.686 [id number] 009 [id number] [facility] 2017-05-30 00:00:00 2024-04-27 03:24:07 Orders Only Doctor Unassigned, Heron Doctor Unassigned, Heron [facility] ([place]) 1.2.840.114 350.1.13.10 4.2.7.2.686 [id number] [facility] 2017-06-27 00:00:00 2024-04-27 03:21:49 Orders Only Doctor Unassigned, Heron Doctor Unassigned, Heron [facility] ([place]) 1.2.840.114 350.1.13.10 4.2.7.2.686 [id number] 009 [id number] [facility] 2017-08-09 00:00:00 2024-04-27 03:17:16 Orders Only Doctor Unassigned, Heron Doctor Unassigned, Heron [facility] ([place]) 1.2.840.114 350.1.13.10 4.2.7.2.686 [id number] 009 [id number] [facility] 2024-04-09 00:00:00 2024-04-09 00:00:00 Office Visit- Est Pt.- Level 4 [facility] [id number] [facility] 2024-04-08 00:00:00 2024-04-08 00:00:00 (TEL) [facility] [id number] [facility] 2024-04-05 00:00:00 2024-04-05 00:00:00 [facility] [id number] Analia [facility] 2024-04-04 00:00:00 2024-04-04 14:38:37 Refill Lucius Fraser [facility] 1.840.114 350.1.13.10 4.2.7.2.686 [id number] [facility] 2024-03-21 14:15:00 2024-03-21 14:15:00 Outpatient R CORDELL MANLEY VIEN [facility] [id number] [facility] 2024-03-21 00:00:00 2024-03-21 00:00:00 [facility]EL[facility] [id number] Analia Dutta [facility] 2024-03-19 15:30:00 2024-03-19 15:56:54 Outpatient R CARMELINA CHAIDEZ [facility] [id number] [facility] 2024-03-19 15:30:00 2024-03-19 15:56:54 Imm/Inj Visit Carmelina Chaidez [facility] 1.84.114 350.1.13.10 4.2.7.2.686 [id number] 136 [id number] [facility] 2024-03-13 00:00:00 2024-03-14 15:35:12 RefSanti Bowen [facility] OFF[facility]ILD[facility] 1.840.114 350.1.13.10 4.2.7.2.686 [id number] [id number] [facility] 2024-03-11 00:00:00 2024-03-11 00:00:00 ([facility]EL[facility] [id number] Analia D[facility] 2024-03-08 00:00:00 2024-03-08 09:47:09 Telephone Rocio Roberto [facility] MED[facility] OFF[facility]ILD[facility] 1.840.114 350.1.13.10 4.2.7.2.686 [id number] [id number] [facility] 2024-02-26 00:00:00 2024-02-26 14:57:11 Telephone Lucius Fraser. [facility] OFF[facility] 1.2.840.114 350.1.13.10 4.2.7.2.686 [id number] 220 [id number] [facility] 2024-02-26 11:00:00 2024-02-26 11:00:00 Outpatient R LUCIUS FRASER [facility] [id number] [facility] 2024-02-22 00:00:00 2024-02-22 13:48:18 Letter (Out) Pcp, Patient Does Not Have A [facility] 1.2.840.114 350.1.13.10 4.2.7.2.686 [id number] 044 [id number] [facility] 2024-02-22 13:30:00 2024-02-22 13:45:00 Office Visit Thien Santi [facility] 1.2.840.114 350.1.13.10 4.2.7.2.686 [id number] 044 [id number] [facility] 2024-02-22 13:30:00 2024-02-22 13:30:00 Outpatient R SANTI WHITEHEAD [facility] [id number] [facility] 2024-02-20 13:15:00 2024-02-20 13:15:00 Outpatient R CARMELINA CHAIDEZ [facility] [id number] [facility] 2024-02-14 09:30:00 2024-02-14 09:30:00 Outpatient R CORDELL MANLEY VIEN [facility] [id number] [facility] 2024-02-05 00:00:00 2024-02-05 00:00:00 Office Visit- Est Pt.- Level 4 CLS CLS [id number] Analia post 2024-02-02 00:00:00 2024-02-02 00:00:00 (TEL) [facility] CLS [id number] Analia post 2024-01-18 00:00:00 2024-01-18 14:29:59 Telephone Carmelina Chaidez [facility] 1.840.114 350.1.13.10 4.2.7.2.686 [id number] 136 [id number] [facility] 2024-01-16 15:15:00 2024-01-16 16:25:22 Outpatient CARMELINA SQUIRES [facility] [id number] [facility] 2024-01-16 15:15:00 2024-01-16 16:25:22 Office Visit [facility]ide[facility] 1.840.114 350.1.13.10 4.2.7.2.686 [id number] 136 [id number] [facility] 2024-01-15 11:45:00 2024-01-15 11:45:00 Outpatient GEMINI DE LA FUENTE [facility] [id number] [facility] 2024-01-09 14:30:00 2024-01-09 14:30:00 Outpatient CARMELINA SQUIRES [facility] [id number] [facility] 2024-01-01 00:00:00 2024-01-06 09:27:49 Telephone Carmelina Chaidez [facility] 1.840.114 350.1.13.10 4.2.7.2.686 [id number] 136 [id number] [facility] 2024-01-05 15:15:00 2024-01-05 16:43:25 Outpatient CARMELINA SQUIRES [facility] [id number] [facility] 2024-01-05 15:15:00 2024-01-05 16:43:25 Imm/Inj Visit Carmelina Chaidez [facility] 1.2.840.114 350.1.13.10 4.2.7.2.686 [id number] 136 [id number] [facility] 2024-01-02 15:00:00 2024-01-02 17:11:23 Outpatient R DAIVDMOSES CABELLOPRAVEENA [facility] [id number] [facility] 2024-01-02 15:00:00 2024-01-02 17:11:23 Office Visit Mary Mosespraveena [facility] [place] [facility] 1.2.840.114 350.1.13.10 4.2.7.2.686 [id number] 136 [id number] [facility] 2024-01-02 00:00:00 2024-01-02 09:56:54 Refill Telly Templeton [facility] 1.2.840.114 350.1.13.10 4.2.7.2.686 [id number] 220 [id number] [facility] 2024-01-02 00:00:00 2024-01-02 09:54:47 Refill Lucius Fraser [facility] 1.2840.114 350.1.13.10 4.2.7.2.686 [id number] 220 [id number] [facility] 2024-01-02 00:00:00 2024-01-02 00:00:00 Office Visit- Est Pt.- Level 4 CLS CLS [id number] [facility] 2023-12-21 00:00:00 2023-12-25 22:10:25 Telephone Mary Mosespraveena [facility] [place] [facility] 1.2.840.114 350.1.13.10 4.2.7.2.686 [id number] 136 [id number] [facility] 2023-12-19 09:45:00 2023-12-19 09:45:00 Outpatient R DAVIDCARMELINA CABELLO [facility] [id number] [facility] 2023-12-18 11:15:00 2023-12-18 11:15:00 Outpatient R GEMINI ALEXANDER [facility] [id number] [facility] 2023-12-11 00:00:00 2023-12-11 10:53:00 [facility] MED[facility] OFF[facility] BUILD[facility] 1..840.114 350.1.13.10 4.2.7.2.686 [id number] 220 [id number] [facility] 2023-12-05 13:30:00 2023-12-05 13:30:00 Outpatient R MARY MOSESPRAVEENA [facility] [id number] [facility] 2023-12-04 09:45:00 2023-12-04 09:45:00 Outpatient R JEFF, AISJU [facility] [id number] [facility] 2023-10-31 00:00:00 2023-12-02 18:20:24 Patient Secure Lucius Hernández [facility] 1..840.114 350.1.13.10 4.2.7.2.686 [id number] 220 [id number] [facility] 2023-11-07 13:15:00 2023-11-07 14:07:47 Outpatient R CARMELINA CHAIDEZ [facility] [id number] [facility] 2023-11-07 13:15:00 2023-11-07 14:07:47 Office Visit Carmelina Chaidez [facility] 1..840.114 350.1.13.10 4.2.7.2.686 [id number] 136 [id number] [facility] 2023-11-07 00:00:00 2023-11-07 00:00:00 (TEL) [facility] [id number] Analia post 2023-11-03 00:00:00 2023-11-03 11:36:37 Telephone Carmelina Chaidez [facility] 1.114 350.1.13.10 4.2.7.2.686 [id number] 136 [id number] [facility] 2023-10-31 11:40:00 2023-10-31 11:40:00 Outpatient RIA ROLDAN [facility] [id number] [facility] 2023-10-30 12:00:00 2023-10-30 12:15:00 Linux Administrator Visit LabOlman Israa B. Lab, Ang - Db [facility] MED[facility] 1.114 350.1.13.10 4.2.7.2.686 [id number] [facility] 2023-10-30 11:30:00 2023-10-30 11:40:53 Outpatient R LUCIUS FRASER [facility] [id number] [facility] 2023-10-30 11:30:00 2023-10-30 11:40:53 Office Visit Lucius Fraser [facility] MED[facility] OFF[facility] BUILD[facility] 1.114 350.1.13.10 4.2.7.2.686 [id number] 220 [id number] [facility] 2023-10-30 00:00:00 2023-10-30 10:30:46 Telephone Lucius Fraser [facility] OFF[facility] 1.114 350.1.13.10 4.2.7.2.686 [id number] 220 [id number] [facility] 2023-10-25 00:36:00 2023-10-26 11:54:00 Emergency Dutch Hernandez, Carmelina Dennis [facility] 1.2.840.114 350.1.13.10 4.2.7.2.686 [id number] [id number] [facility] 2023-10-25 20:25:00 2023-10-25 21:44:00 Anesthesia Event Nayan Blandon Ryan C S [facility] 1.2.840.114 350.1.13.10 4.2.7.2.686 [id number] [facility] 2023-10-25 20:00:00 2023-10-25 21:36:00 Surgery Carmelina Chaidez [facility] 1.2.840.114 350.1.13.10 4.2.7.2.686 [id number] [facility] 2023-10-24 20:55:00 2023-10-24 23:21:00 Emergency X ADERIMIGUELE, EFRENIL [facility] ERT [id number] [facility] 2023-10-24 20:55:00 2023-10-24 23:21:00 Emergency X ADERIBIGREGORYE, ISABELLABRIL [facility] ERT [id number] [facility] 2023-10-24 20:55:00 2023-10-24 23:21:00 Emergency AderibigregoryeJenni [facility] AT [facility] 1.2840.114 350.1.13.10 4.2.7.2.686 [id number] [id number] [facility] 2023-10-24 00:00:00 2023-10-24 16:02:12 Telephone Carmelina Chaidez [facility] 1.2840.114 350.1.13.10 4.2.7.2.686 [id number] 136 [id number] [facility] 2023-10-23 00:00:00 2023-10-23 17:44:53 Telephone Carmelina Chaidez [facility] 1.2.840.114 350.1.13.10 4.2.7.2.686 [id number] 136 [id number] [facility] 2023-10-13 13:30:00 2023-10-13 14:05:04 Outpatient CARMELINA SQUIRES [facility] [id number] [facility] 2023-10-13 13:30:00 2023-10-13 14:05:04 Office Visit Carmelina Chaidez [facility] 1..840.114 350.1.13.10 4.2.7.2.686 [id number] 136 [id number] [facility] 2023-10-02 00:00:00 2023-10-02 00:00:00 Office Visit- Est Pt.- Level 3 CLS CLS [id number] [facility] 2023-09-27 00:00:00 2023-09-27 17:16:06 Telephone Telly Templeton [facility] MED[facility] 1.2.840.114 350.1.13.10 4.2.7.2.686 [id number] 220 [id number] [facility] 2023-09-26 09:45:00 2023-09-26 09:45:00 Outpatient CARMELINA SQUIRES [facility] [id number] [facility] 2023-09-24 00:00:00 2023-09-25 16:58:22 [facility] 1.2.840.114 350.1.13.10 4.2.7.2.686 [id number] 220 [id number] [facility] 2023-09-22 14:00:00 2023-09-22 14:00:00 Outpatient CARMELINA SQUIRES [facility] [id number] [facility] 2023-09-22 00:00:00 2023-09-22 09:51:12 Telephone Carmelina Chaidez [facility] 1.2.840.114 350.1.13.10 4.2.7.2.686 [id number] 136 [id number] [facility] 2023-09-08 13:15:00 2023-09-08 14:15:34 Outpatient R CARMELINA CHAIDEZ [facility] [id number] [facility] 2023-09-08 13:15:00 2023-09-08 14:15:34 Office Visit Carmelina Chaidez [facility] 1.2.840.114 350.1.13.10 4.2.7.2.686 [id number] 136 [id number] [facility] 2023-09-07 09:17:00 2023-09-07 11:13:00 Surgery Carmelina Chaidez [facility] 1.2.840.114 350.1.13.10 4.2.7.2.686 [id number] [facility] 2023-09-07 07:17:00 2023-09-07 10:34:00 Outpatient CARMELINA SQUIRES [facility] OPH [id number] [facility] 2023-09-07 07:17:00 2023-09-07 10:34:00 Hospital Encounter Carmelina Chaidez [facility] 1.2.840.114 350.1.13.10 4.2.7.2.686 [id number] [facility] 2023-09-01 00:00:00 2023-09-01 00:00:00 Office Visit- Est Pt.- Level 2 CLS CLS [id number] [facility] 2023-08-28 08:15:00 2023-08-28 09:13:13 Outpatient CARMELINA SQUIRES [facility] [id number] [facility] 2023-08-28 08:15:00 2023-08-28 09:13:13 Imm/Inj Visit Carmelina Chaidez [facility] [email or web address] [facility] 1.2.840.114 350.1.13.10 4.2.7.2.686 [id number] 136 [id number] [facility] 2023-08-21 09:15:00 2023-08-21 12:13:23 Outpatient R CARMELINA CHAIDEZ [facility] [id number] [facility] 2023-08-21 09:15:00 2023-08-21 12:13:23 Office Visit Carmelina Chaidez [facility] 1..840.114 350.1.13.10 4.2.7.2.686 [id number] 136 [id number] [facility] 2023-08-17 14:00:00 2023-08-17 14:00:00 Outpatient MARIE PRABHAKAR [facility] [id number] [facility] 2023-06-30 00:00:00 2023-08-05 18:10:56 Patient Secure Msg Doctor Unassigned, Heron [facility] 1..840.114 350.1.13.10 4.2.7.2.686 [id number] [facility] 2023-07-31 00:00:00 2023-08-03 13:06:58 Telephone Carmelina Chaidez [facility] 1..840.114 350.1.13.10 4.2.7.2.686 [id number] 136 [id number] [facility] 2023-08-02 14:30:00 2023-08-02 14:30:00 Outpatient MARIE PRABHAKAR [facility] [id number] [facility] 2023-08-01 14:15:00 2023-08-01 14:15:00 Outpatient CARMELINA SQUIRES [facility] [id number] [facility] 2023-07-25 00:00:2023-07-25 13:39:21 [facility] 1.2840.114 350.1.13.10 4.2.7.2.686 [id number] 220 [id number] [facility] 2023-07-21 00:00:00 2023-07-21 14:04:08 Telly Velasquez Niko [facility] 1.2840.114 350.1.13.10 4.2.7.2.686 [id number] 220 [id number] [facility] 2023-07-19 14:00:00 2023-07-19 14:41:01 Outpatient RIA ROLDAN [facility] [id number] [facility] 2023-07-19 14:00:00 2023-07-19 14:41:01 [facility] 1.840.114 350.1.13.10 4.2.7.2.686 [id number] [facility] 2023-07-18 13:00:00 2023-07-18 14:14:51 Outpatient R SHEREEN BEJARANO [facility] [id number] [facility] 2023-07-18 13:00:00 2023-07-18 14:14:51 Office Visit Shereen Bejarano [facility] 1.840.114 350.1.13.10 4.2.7.2.686 [id number] [facility] 2023-06-26 12:00:00 2023-06-26 12:30:07 Outpatient R LUCIUS FRASER [facility] [id number] [facility] 2023-06-26 12:00:00 2023-06-26 12:30:07 Office Visit Lucius Fraser [facility] 1.2.84.114 350.1.13.10 4.2.7.2.686 [id number] [facility] 2023-05-31 00:00:00 2023-05-31 00:00:00 Telephone Viktoria Gemini [facility] 1.114 350.1.13.10 4.2.7.2.686 [id number] [facility] 2023-05-24 00:00:00 2023-05-24 00:00:00 Telephone Rocio Roberto [facility] 1.84.114 350.1.13.10 4.2.7.2.686 [id number] [facility] 2023-05-11 15:45:00 2023-05-11 15:45:00 Outpatient ZARI ALMANZA [facility] [id number] [facility] 2023-05-08 00:00:00 2023-05-08 00:00:00 Lucius Ivey [facility] 1.84.114 350.1.13.10 4.2.7.2.686 [id number] 220 [id number] [facility] 2023-04-20 13:00:00 2023-04-20 13:00:00 Outpatient ZARI ALMANZA [facility] [id number] [facility] 2023-04-19 11:00:00 2023-04-19 11:00:00 Outpatient PAYTON MATTA DIVYA [facility] [id number] [facility] 2023-04-12 00:00:00 2023-04-12 00:00:00 Telephone Payton Medina [facility] 1.84.114 350.1.13.10 4.2.7.2.686 [id number] [facility] 2023-04-11 00:00:00 2023-04-11 00:00:00 Telephone ViktoriaGemini [facility] 1.84.114 350.1.13.10 4.2.7.2.686 [id number] [facility] 2023-04-03 14:00:00 2023-04-03 14:00:00 Outpatient LUCIUS LYNNE [facility] [id number] [facility] 2023-03-31 10:21:42 2023-03-31 23:59:00 Outpatient CORDELL KAUR [facility] [id number] [facility] 2023-03-31 10:21:42 2023-03-31 23:59:00 Hospital Encounter Cordell Manley [facility] 1..114 350.1.13.10 4.2.7.2.686 [id number] [facility] 2023-03-30 00:00:00 2023-03-30 00:00:00 Lucius Ivey [facility] 1.84.114 350.1.13.10 4.2.7.2.686 [id number] [facility] 2023-03-20 00:00:00 2023-03-20 00:00:00 Outpatient CORDELL KAUR [facility] [id number] [facility] 2023-03-17 00:00:00 2023-03-17 00:00:00 Telephone Payton Medina [facility] 1..114 350.1.13.10 4.2.7.2.686 [id number] [facility] 2023-03-15 11:00:00 2023-03-15 11:19:21 Outpatient R ROCIO ROBERTO [facility] [id number] [facility] 2023-03-15 11:00:00 2023-03-15 11:19:21 Office Visit Rocio Roberto [facility] OFF[facility]ILD[facility] 1.2.840.114 350.1.13.10 4.2.7.2.686 [id number] [id number] [facility] 2023-03-15 10:00:00 2023-03-15 10:00:00 Outpatient R JERARDO WARNER ELISHA [facility] [id number] [facility] 2023-03-15 00:00:00 2023-03-15 00:00:00 Refill Rocio Roberto [facility] 1.2.840.114 350.1.13.10 4.2.7.2.686 [id number] [id number] [facility] 2023-03-02 15:30:00 2023-03-02 15:30:00 Outpatient R ZARI JOHNSON [facility] [id number] [facility] 2023-02-27 09:30:00 2023-02-27 09:30:00 Outpatient R TYESHA ALEXANDEREN [facility] [id number] [facility] 2023-02-24 00:00:00 2023-02-24 00:00:00 Patient Secure Msg Doctor Unassigned, Heron [facility] 1.2.840.114 350.1.13.10 4.2.7.2.686 [id number] [facility] 2023-02-22 15:00:00 2023-02-22 15:00:00 Outpatient R CORDELL MANLEY [facility] [id number] [facility] 2023-02-16 00:00:00 2023-02-16 00:00:00 Refill Abbey Negrete [facility] 1.2.840.114 350.1.13.10 4.2.7.2.686 [id number] [facility] 2023-02-16 00:00:00 2023-02-16 00:00:00 Telephone Gemini Alexander [facility] 1.2.840.114 350.1.13.10 4.2.7.2.686 [id number] [facility] 2023-02-15 13:00:00 2023-02-15 13:00:00 Outpatient AMELIA LUZ [place] [facility] [id number] [facility] 2023-02-15 00:00:00 2023-02-15 00:00:00 Telephone Gemini Alexander [facility] 1.2.840.114 350.1.13.10 4.2.7.2.686 [id number] [facility] 2023-02-14 00:00:00 2023-02-14 00:00:00 Patient Secure Msg Doctor Unassigned, Heron [facility] 1.2.840.114 350.1.13.10 4.2.7.2.686 [id number] [facility] 2023-02-12 00:00:00 2023-02-12 00:00:00 Rachel Christian [facility] 1.2.840.114 350.1.13.10 4.2.7.2.686 [id number] [id number] [facility] 2023-02-10 00:00:00 2023-02-10 00:00:00 Patient Secure Msg Doctor Unassigned, Heron [facility] 1.2.840.114 350.1.13.10 4.2.7.2.686 [id number] [facility] 2023-02-09 10:30:00 2023-02-09 10:33:27 Outpatient R CORDELL MANLEY [facility] [id number] [facility] 2023-02-09 10:30:00 2023-02-09 10:33:27 Office Visit Cordell Manley [facility] 1.84.114 350.1.13.10 4.2.7.2.686 [id number] [facility] 2023-02-08 00:00:00 2023-02-08 00:00:00 Orders Only Doctor Unassigned, Heron [facility] 1.840.114 350.1.13.10 4.2.7.2.686 [id number] [facility] 2023-01-26 08:36:18 2023-01-26 23:59:00 Outpatient R GEMINI ALEXANDER [facility] [id number] [facility] 2023-01-26 08:36:18 2023-01-26 23:59:00 Hospital Encounter Gemini Alexander [facility] 1.840.114 350.1.13.10 4.2.7.2.686 [id number] [facility] 2023-01-16 08:30:00 2023-01-16 08:50:07 Outpatient R GEMINI ALEXANDER [facility] [id number] [facility] 2023-01-16 08:30:00 2023-01-16 08:50:07 Office Visit Gemini Alexander [facility] 1.840.114 350.1.13.10 4.2.7.2.686 [id number] [facility] 2023-01-13 13:45:00 2023-01-13 13:45:00 Outpatient R GEMINI ALEXANDER [facility] [id number] [facility] 2023-01-12 09:00:00 2023-01-12 11:17:38 [id number] 2023-01-12 09:00:00 2023-01-12 11:17:38 Office Visit Zari Johnson [facility] 1.840.114 350.1.13.10 4.2.7.2.686 [id number] [facility] 2023-01-11 00:00:00 2023-01-11 00:00:00 Telephone Gemini Alexander [facility] 1..114 350.1.13.10 4.2.7.2.686 [id number] [facility] 2023-01-09 15:30:00 2023-01-09 15:42:26 Outpatient R ABBEY NEGRETE YU [facility] [id number] [facility] 2023-01-09 15:30:00 2023-01-09 15:42:26 Office Visit [facility] 1.2.114 350.1.13.10 4.2.7.2.686 [id number] 220 [id number] [facility] 2023-01-09 00:00:00 2023-01-09 00:00:00 Orders Only Doctor Unassigned, Heron [facility] 1.2840.114 350.1.13.10 4.2.7.2.686 [id number] [facility] 2023-01-09 00:00:00 2023-01-09 00:00:00 Patient Secure Msg Doctor Unassigned, Heron [facility] 1.2840.114 350.1.13.10 4.2.7.2.686 [id number] [facility] 2023-01-09 00:00:00 2023-01-09 00:00:00 Patient Secure Msg Doctor Unassigned, Heron [facility] 1.2.840.114 350.1.13.10 4.2.7.2.686 [id number] [facility] 2023-01-05 13:00:00 2023-01-05 13:46:22 Outpatient R ROCIO ROBERTO [facility] [id number] [facility] 2023-01-05 13:00:00 2023-01-05 13:46:22 Office Visit Rocio Roberto [facility] MED[facility] OFF[facility] 1.2.840.114 350.1.13.10 4.2.7.2.686 [id number] [facility] 2022-12-08 00:00:00 2022-12-08 00:00:00 Refill Abbey Negrete [facility] 1..840.114 350.1.13.10 4.2.7.2.686 [id number] 220 [id number] [facility] 2022-12-08 00:00:00 2022-12-08 00:00:00 Refill Abbey Negrete [facility] 1..840.114 350.1.13.10 4.2.7.2.686 [id number] 220 [id number] [facility] 2022-12-08 00:00:00 2022-12-08 00:00:00 [facility] 1.2.840.114 350.1.13.10 4.2.7.2.686 [id number] 059 [id number] [facility] 2022-10-17 12:00:00 2022-10-17 12:00:00 Outpatient R ABBEY NEGRETE YU [facility] [id number] [facility] 2022-09-27 11:00:00 2022-09-27 11:00:00 Outpatient LUCIANO GAO OGECHUKWU [facility] [id number] [facility] 2022-09-19 00:00:00 2022-09-19 00:00:00 Telephone Cynthia Mcintoshbety [facility] 1.2.840.114 350.1.13.10 4.2.7.2.686 [id number] 220 [id number] [facility] 2022-09-19 00:00:00 2022-09-19 00:00:00 Telephone Abbey Negrete [facility] 1.2.840.114 350.1.13.10 4.2.7.2.686 [id number] 220 [id number] [facility] 2022-09-19 00:00:00 2022-09-19 00:00:00 Patient Secure Msg Doctor Unassigned, Heron [facility] 1.2840.114 350.1.13.10 4.2.7.2.686 [id number] 220 [id number] [facility] 2022-09-16 09:15:00 2022-09-16 09:15:00 Outpatient R ANY TOWNSEND [facility] [id number] [facility] 2022-09-12 00:00:00 2022-09-12 00:00:00 Telephone Abbey Negrete [facility] 1.2840.114 350.1.13.10 4.2.7.2.686 [id number] 220 [id number] [facility] 2022-09-09 00:00:00 2022-09-09 00:00:00 Orders Only Doctor Unassigned, Heron [facility] 1.2840.114 350.1.13.10 4.2.7.2.686 [id number] [facility] 2022-09-08 10:00:00 2022-09-08 10:00:00 Outpatient R RIA HINOJOSA [facility] [id number] [facility] 2022-09-05 00:00:00 2022-09-05 00:00:00 Telephone PetraAbbey [facility] MED[facility] OFFICE BUILDING 1..840.114 350.1.13.10 4.2.7.2.686 [id number] 220 [id number] [facility] 2022-09-05 00:00:00 2022-09-05 00:00:00 Telephone PetraAbbey [facility] 1..840.114 350.1.13.10 4.2.7.2.686 [id number] 220 [id number] [facility] 2022-08-24 11:00:00 2022-08-24 11:00:00 Outpatient R ROBERT WINTER [facility] [id number] [facility] 2022-08-23 00:00:00 2022-08-23 00:00:00 Refill PetraAbbey [facility] MED[facility] OFFICE BUILDING 1..840.114 350.1.13.10 4.2.7.2.686 [id number] 220 [id number] [facility] 2022-08-23 00:00:00 2022-08-23 00:00:00 Telephone Rocio Roberto [facility] 1.840.114 350.1.13.10 4.2.7.2.686 [id number] [facility] 2022-08-19 14:30:00 2022-08-19 14:30:00 Outpatient R ROCIO ROBERTO [facility] [id number] [facility] 2022-08-19 00:00:00 2022-08-19 00:00:00 Telephone Abbey Negrete [facility] 1.2.840.114 350.1.13.10 4.2.7.2.686 [id number] 220 [id number] [facility] 2022-08-11 00:00:00 2022-08-11 00:00:00 Patient Secure Msg Doctor Unassigned, Heron [facility] 1.284.114 350.1.13.10 4.2.7.2.686 [id number] 019 [id number] [facility] 2022-08-06 00:00:00 2022-08-06 00:00:00 Patient Secure Msg Doctor Unassigned, Heron [facility] 1.2840.114 350.1.13.10 4.2.7.2.686 [id number] [facility] 2022-08-05 12:30:00 2022-08-05 13:00:00 Office Visit Rocio Roberto [facility] 1.2.840.114 350.1.13.10 4.2.7.2.686 [id number] 044 [id number] [facility] 2022-08-05 12:30:00 2022-08-05 12:30:00 Outpatient R ROCIO ROBERTO [facility] [id number] [facility] 2022-08-05 00:00:00 2022-08-05 00:00:00 Telephone Sherita Cullen 1..840.114 350.1.13.10 4.2.7.2.686 [id number] [facility] 2022-06-13 12:00:00 2022-06-13 12:57:07 Outpatient R ABBEY NEGRETE YU [facility] [id number] [facility] 2022-06-13 12:00:00 2022-06-13 12:57:07 Office Visit Abbey Negrete [facility] 1.2.840.114 350.1.13.10 4.2.7.2.686 [id number] 220 [id number] [facility] 2022-06-13 00:00:00 2022-06-13 00:00:00 Orders Only Doctor Unassigned, Heron [facility] 1.2.840.114 350.1.13.10 4.2.7.2.686 [id number] [facility] 2022-05-12 13:30:00 2022-05-12 13:30:00 Outpatient CORDELL KAUR [facility] [id number] [facility] 2022-04-22 00:00:00 2022-04-22 00:00:00 Telephone Petra [facility] 1.2.840.114 350.1.13.10 4.2.7.2.686 [id number] 220 [id number] [facility] 2022-04-05 00:00:00 2022-04-05 00:00:00 Telephone Abbey Negrete [facility] 1.2.840.114 350.1.13.10 4.2.7.2.686 [id number] 220 [id number] [facility] 2022-03-03 00:00:00 2022-03-03 00:00:00 Refill Petra [facility] 1.2.840.114 350.1.13.10 4.2.7.2.686 [id number] 220 [id number] [facility] 2022-03-02 11:00:00 2022-03-02 11:00:00 Outpatient ROCIO ANN [facility] [id number] [facility] 2022-03-01 00:00:00 2022-03-01 00:00:00 Refill Abbey Negrete [facility] MEDICAL OFFICE BUILDING 1.84.114 350.1.13.10 4.2.7.2.686 [id number] 220 [id number] [facility] 2022-02-23 00:00:00 2022-02-23 00:00:00 Patient Secure Abbey Carroll [facility] MED[facility] OFF[facility] BU[facility] 1.84.114 350.1.13.10 4.2.7.2.686 [id number] 220 [id number] [facility] 2022-02-21 16:15:00 2022-02-21 16:24:28 Linux Administrator Visit Lab, Olman Ball Abbey Negrete [facility] OFF[facility] 1.84.114 350.1.13.10 4.2.7.2.686 [id number] [facility] 2022-02-21 15:30:00 2022-02-21 16:10:32 Outpatient R ABBEY NEGRETE [facility] [id number] [facility] 2022-02-21 15:30:00 2022-02-21 16:10:32 Office Visit Abbey Negrete [facility] MEDICAL OFFICE BUILDING 1.84.114 350.1.13.10 4.2.7.2.686 [id number] 220 [id number] [facility] 2022-02-16 00:00:00 2022-02-16 00:00:00 Telephone Weinberg, Teena ALAN 1.84.114 350.1.13.10 4.2.7.2.686 [id number] [facility] 2022-01-19 14:15:00 2022-01-19 14:15:00 Outpatient R THEO DIGGS [facility] [id number] [facility] 2021-11-01 00:00:00 2021-11-01 00:00:00 Telephone Trey Yu [facility] MEDICAL OFFICE BUILDING 1.840.114 350.1.13.10 4.2.7.2.686 [id number] 220 [id number] [facility] 2021-09-24 00:00:00 2021-09-24 00:00:00 Telephone Gigi Trey [facility] MEDICAL OFFICE BUILDING 1.840.114 350.1.13.10 4.2.7.2.686 [id number] 220 [id number] [facility] 2021-07-21 05:18:00 2021-07-23 16:56:00 Inpatient LUIS ALBERTO Motatoddcesar Inga [facility] INTE [id number] [facility] 2021-07-13 10:00:00 2021-07-13 10:00:00 Outpatient CARMELINA SQUIRES [facility] [id number] [facility] 2021-07-13 10:00:00 2021-07-13 10:00:00 Outpatient CARMELINA SQUIRES [facility] [id number] [facility] 2021-07-06 00:00:00 2021-07-06 00:00:00 Telephone Rocio Roberto [facility] 1..840.114 350.1.13.10 4.2.7.2.686 [id number] [facility] 2021-07-05 13:30:00 2021-07-05 13:30:00 Outpatient CORDELL KAUR [facility] [id number] [facility] 2021-07-02 00:00:00 2021-07-02 00:00:00 Telephone Alvarado Estevez [facility] MED[facility] OFF[facility] 1..840.114 350.1.13.10 4.2.7.2.686 [id number] [facility] 2021-07-02 00:00:00 2021-07-02 00:00:00 Orders Only Doctor Unassigned, Heron [facility] 1.2.114 350.1.13.10 4.2.7.2.686 [id number] [facility] 2021-06-23 14:22:00 2021-06-30 12:30:00 Inpatient Alejandra Garcia [facility] INTE.02 [id number] [facility] 2021-06-29 14:00:00 2021-06-29 14:00:00 Outpatient ELISE BARRIOS [facility] [id number] [facility] 2021-06-21 14:30:00 2021-06-21 14:30:00 Outpatient TREY HOLT [facility] [id number] [facility] 2021-06-16 00:00:00 2021-06-16 00:00:00 Refill Gigi [facility] 1..114 350.1.13.10 4.2.7.2.686 [id number] [facility] 2021-06-11 09:30:00 2021-06-11 09:58:55 Outpatient SHAHNAZ CRUZ [facility] [id number] [facility] 2021-06-11 09:30:00 2021-06-11 09:58:55 Office Visit Shahnaz Oates [facility] 1.114 350.1.13.10 4.2.7.2.686 [id number] [facility] 2021-06-11 00:00:00 2021-06-11 00:00:00 Orders Only Doctor Unassigned, Heron [facility] 1.114 350.1.13.10 4.2.7.2.686 [id number] [facility] 2021-06-01 00:00:00 2021-06-01 00:00:00 Patient Secure Msg Doctor Unassigned, Heron [facility] 1.840.114 350.1.13.10 4.2.7.2.686 [id number] [facility] 2021-05-24 00:00:00 2021-05-24 00:00:00 Orders Only Doctor Unassigned, Heron [facility] 1.84.114 350.1.13.10 4.2.7.2.686 [id number] [facility] 2021-05-21 11:00:00 2021-05-21 10:56:49 Outpatient ROCIO ANN [facility] [id number] [facility] 2021-05-10 13:09:00 2021-05-10 13:09:00 Inpatient Dany Jason [facility] OUTD [id number] [facility] 2021-05-04 14:15:00 2021-05-04 14:15:00 Outpatient R ALVARADO ESTEVEZ [facility] [id number] [facility] 2021-04-27 00:00:00 2021-04-27 00:00:00 Telephone Alvarado Estevez [facility] 1.840.114 350.1.13.10 4.2.7.2.686 [id number] [facility] 2021-04-26 00:00:00 2021-04-26 00:00:00 Orders Only Doctor Unassigned, Heron [facility] 1.840.114 350.1.13.10 4.2.7.2.686 [id number] [facility] 2021-04-20 14:30:00 2021-04-20 14:30:00 Outpatient KITTY FISH [facility] [id number] [facility] 2021-04-20 14:30:00 2021-04-20 14:30:00 Outpatient Cristo KITTY MARIN [facility] [id number] [facility] 2021-04-16 00:00:00 2021-04-16 00:00:00 Orders Only Doctor Unassigned, Heron [facility] 1.2.840.114 350.1.13.10 4.2.7.2.686 [id number] [facility] 2021-04-14 10:30:00 2021-04-14 10:30:00 Outpatient SHAHNAZ CRUZ [facility] [id number] [facility] 2021-03-30 00:00:00 2021-03-30 00:00:00 Rachel Christian [facility] 1..840.114 350.1.13.10 4.2.7.2.686 [id number] [facility] 2021-03-26 00:00:00 2021-03-26 00:00:00 Rachel Christian [facility] N[facility] BUILD[facility] 1..840.114 350.1.13.10 4.2.7.2.686 [id number] [facility] 2021-03-23 10:22:10 2021-03-23 23:59:00 Outpatient ANY GARCIA [facility] [id number] [facility] 2021-03-23 10:22:10 2021-03-23 23:59:00 Hospital Any Brandon [facility] 1.2.840.114 350.1.13.10 4.2.7.2.686 [id number] [facility] 2021-03-23 10:30:00 2021-03-23 10:45:00 Office Visit Any Townsend [facility] MED[facility] OFF[facility] BUILD[facility] 1.2.840.114 350.1.13.10 4.2.7.2.686 [id number] [facility] 2021-03-23 10:30:00 2021-03-23 10:30:00 Outpatient R ANY TOWNSEND [facility] [id number] [facility] 2021-03-23 00:00:00 2021-03-23 00:00:00 Telephone Alvarado Estevez [facility] 1.2.840.114 350.1.13.10 4.2.7.2.686 [id number] [facility] 2021-03-19 00:00:00 2021-03-19 00:00:00 Refill Kitty Marin [facility] 1..840.114 350.1.13.10 4.2.7.2.686 [id number] [facility] 2021-02-22 00:00:00 2021-02-22 00:00:00 Telephone Roman Estevezjodiebernabe Paredes [facility] 1..840.114 350.1.13.10 4.2.7.2.686 [id number] [facility] 2021-02-17 00:00:00 2021-02-17 00:00:00 Refill Rachel Reed [facility] 1.2.840.114 350.1.13.10 4.2.7.2.686 [id number] [facility] 2021-02-13 00:00:00 2021-02-13 00:00:00 Refill Trey Yu [facility] 1..840.114 350.1.13.10 4.2.7.2.686 [id number] [facility] 2021-02-08 00:00:00 2021-02-08 00:00:00 Rachel Christian [facility] 1..840.114 350.1.13.10 4.2.7.2.686 [id number] [facility] 2021-01-25 00:00:00 2021-01-25 00:00:00 Outpatient ALVARADO AMARAL [facility] [id number] [facility] 2021-01-25 00:00:00 2021-01-25 00:00:00 Outpatient ALVARADO AMARAL [facility] [id number] [facility] 2021-01-14 00:00:00 2021-01-14 00:00:00 Patient Secure Msg Doctor Unassigned, Heron [facility] 1.840.114 350.1.13.10 4.2.7.2.686 [id number] [facility] 2021-01-12 08:15:00 2021-01-12 08:15:00 Outpatient CARMELINA SQUIRES [facility] [id number] [facility] 2021-01-08 13:30:00 2021-01-08 14:58:08 Outpatient R ALVARADO ESTEVEZ [facility] [id number] [facility] 2021-01-08 12:14:31 2021-01-08 14:58:08 Office Visit Alvarado Estevez [facility] 1..840.114 350.1.13.10 4.2.7.2.686 [id number] [facility] 2021-01-08 13:30:00 2021-01-08 13:30:00 Outpatient R ALVARADO ESTEVEZ [facility] [id number] [facility] 2020-12-23 08:15:00 2020-12-23 08:15:00 Outpatient R REEDRACHEL DENTON [facility] [id number] [facility] 2020-12-23 00:00:00 2020-12-23 00:00:00 Patient [facility] 1.2.840.114 350.1.13.10 4.2.7.2.686 [id number] [facility] 2020-12-21 16:23:32 2020-12-21 16:38:32 Linux Administrator Visit Lab, Olman Ball Gigi [facility] 1.2.840.114 350.1.13.10 4.2.7.2.686 [id number] [facility] 2020-12-21 15:39:24 2020-12-21 16:09:[address] [facility] 1.2.840.114 350.1.13.10 4.2.7.2.686 [id number] [facility] 2020-12-21 15:30:00 2020-12-21 15:30:[address] [facility] [id number] [facility] 2020-12-21 12:00:00 2020-12-21 12:00:[address] [facility] [id number] [facility] 2020-12-15 09:20:00 2020-12-15 09:20:00 Outpatient R KATIA KAMARA [facility] [id number] [facility] 2020-12-10 08:47:2020-12-10 10:21:51 Ancillary [facility] 1.84.114 350.1.13.10 4.2.7.2.686 [id number] [facility] 2020-12-10 09:00:00 2020-12-10 09:00:00 Outpatient R KATIA KAMARA [facility] [id number] [facility] 2020-12-08 00:00:00 2020-12-08 00:00:00 Transition of Care Shailesh Della Ness Mederosarturo Sheng Alan 1.84.114 350.1.13.10 4.2.7.2.686 [id number] [facility] 2020-12-08 00:00:00 2020-12-08 00:00:00 Patient Secure Msg Doctor Unassigned, Heron [facility] 1..114 350.1.13.10 4.2.7.2.686 [id number] [facility] 2020-12-04 14:09:00 2020-12-06 15:50:00 [facility]114 350.1.13.10 4.2.7.2.686 [id number] [facility] 2020-12-04 13:21:56 2020-12-04 13:41:56 Nurse Visit Nurse, [facility] 1.84.114 350.1.13.10 4.2.7.2.686 [id number] [facility] 2020-12-04 13:30:00 2020-12-04 13:30:00 Outpatient AMADA FLORES [facility] [id number] [facility] 2020-12-03 09:41:40 2020-12-03 10:25:13 Office Visit Rachel Reed [facility] 1.2.840.114 350.1.13.10 4.2.7.2.686 [id number] [facility] 2020-12-03 10:00:00 2020-12-03 10:00:00 Outpatient R RACHEL REED [facility] [id number] [facility] 2020-10-29 16:40:00 2020-10-29 16:40:00 Outpatient R AMADA FERGUSON [facility] [id number] [facility] 2020-10-14 00:00:00 2020-10-14 00:00:00 Patient Secure Msg Doctor Unassigned, Heron [facility] 1.2.840.114 350.1.13.10 4.2.7.2.686 [id number] [facility] 2020-10-07 00:00:00 2020-10-07 00:00:00 Telephone Rachel Reed [facility] 1.2.840.114 350.1.13.10 4.2.7.2.686 [id number] 059 [id number] [facility] 2020-10-07 00:00:00 2020-10-07 00:00:00 Telephone Rachel Reed [facility] 1.2.840.114 350.1.13.10 4.2.7.2.686 [id number] [id number] [facility] 2020-10-02 09:03:52 2020-10-02 09:18:52 Linux Administrator Visit Pob, Adc Lab Main Rachel Reed [facility] 1.2.840.114 350.1.13.10 4.2.7.2.686 [id number] [facility] 2020-10-02 08:00:00 2020-10-02 08:00:00 Outpatient R RACHEL REED [facility] [id number] [facility] 2020-09-22 09:00:00 2020-09-22 09:00:00 Outpatient R ESTEBAN REEDGEGE [facility] [id number] [facility] 2020-09-14 00:00:00 2020-09-14 00:00:00 Telephone Rachel Reed [facility] Building 1.2.840.114 350.1.13.10 4.2.7.2.686 [id number] [facility] 2020-09-14 00:00:00 2020-09-14 00:00:00 Telephone Gigi [facility] Building 1.2.840.114 350.1.13.10 4.2.7.2.686 [id number] [facility] 2020-09-01 00:00:00 2020-09-01 00:00:00 Nurse Triage Day Horn [facility] 1.2.840.114 350.1.13.10 4.2.7.2.686 [id number] [facility] 2020-08-31 11:30:00 2020-08-31 11:30:00 [id number] 2020-08-31 10:23:44 2020-08-31 11:20:14 Office Visit Otonielsue [facility] Building 1.2.840.114 350.1.13.10 4.2.7.2.686 [id number] [facility] 2020-08-25 10:33:27 2020-08-25 11:05:58 Office Visit Rachel Reed [facility] 1.2.840.114 350.1.13.10 4.2.7.2.686 [id number] [id number] [facility] 2020-08-25 11:00:00 2020-08-25 11:00:00 Outpatient R RACHEL REED [facility] [id number] [facility] 2020-08-21 00:00:00 2020-08-21 00:00:00 Orders Only Doctor Unassigned, Heron [facility] 1.2.840.114 350.1.13.10 4.2.7.2.686 [id number] [facility] 2020-08-12 11:30:00 2020-08-12 11:30:00 Outpatient ZEINA SHIELDS STRAHIL [facility] [id number] [facility] 2020-07-28 00:00:00 2020-07-28 00:00:00 Refill Doctor Unassigned, Heron [facility] 1.2.840.114 350.1.13.10 4.2.7.2.686 [id number] [facility] 2020-06-25 13:33:34 2020-06-25 14:36:23 Office Visit Rachel Reed [facility] 1.2.840.114 350.1.13.10 4.2.7.2.686 [id number] [facility] 2020-06-25 14:00:00 2020-06-25 14:00:00 Outpatient RACHEL MASTERS [facility] [id number] [facility] 2020-06-08 10:00:00 2020-06-08 10:00:00 Outpatient RACHEL MASTERS [facility] [id number] [facility] 2020-06-01 00:00:00 2020-06-01 00:00:00 Rachel Christian [facility] [place] [facility] 1.284.114 350.1.13.10 4.2.7.2.686 [id number] [facility] 2020-05-23 00:00:00 2020-05-23 00:00:00 Patient Outreach Flako Schwartz [facility] 1.84.114 350.1.13.10 4.2.7.2.686 [id number] [facility] 2020-05-18 10:00:00 2020-05-18 10:00:00 Outpatient CARMELINA SQUIRES [facility] [id number] [facility] 2020-05-11 09:25:48 2020-05-11 11:23:17 Office Visit Carmelina Chaidez [facility] 1.84.114 350.1.13.10 4.2.7.2.686 [id number] [facility] 2020-05-11 09:30:00 2020-05-11 09:30:00 Outpatient R [facility] [id number] [facility] 2020-05-11 00:00:00 2020-05-11 00:00:00 Orders Only Doctor Unassigned, Heron [facility] 1.840.114 350.1.13.10 4.2.7.2.686 [id number] [facility] 2020-04-27 10:30:00 2020-04-27 10:30:00 Outpatient RACHEL MASTERS [facility] [id number] [facility] 2020-04-22 00:00:00 2020-04-22 00:00:00 Orders Only Doctor Unassigned, Heron [facility] 1.2.840.114 350.1.13.10 4.2.7.2.686 [id number] [facility] 2020-03-26 11:51:00 2020-03-26 18:13:00 Emergency Faith Bustos [facility] 1.2.840.114 350.1.13.10 4.2.7.2.686 [id number] 2020-03-26 11:51:00 2020-03-26 18:13:00 Emergency X MINNIE BUSTOSANNE [facility] ERT [id number] [facility] 2020-03-26 11:51:00 2020-03-26 18:13:00 Emergency Akash [facility] 1.2.840.114 350.1.13.10 4.2.7.2.686 [id number] [facility] 2020-03-26 00:00:00 2020-03-26 00:00:00 Telephone Rachel Reed [facility] 1.2.840.114 350.1.13.10 4.2.7.2.686 [id number] [id number] 2020-03-26 00:00:00 2020-03-26 00:00:00 Telephone Rachel Reed [facility] nal Building 1.2.840.114 350.1.13.10 4.2.7.2.686 [id number] [facility] 2020-03-19 10:30:00 2020-03-19 10:30:00 Outpatient ASHLEY MAGAÑA [facility] [id number] Franko [facility] 2020-03-16 08:45:41 2020-03-16 09:51:05 Office Visit Rachel Reed [facility] nal Building 1.2.840.114 350.1.13.10 4.2.7.2.686 [id number] 2020-03-16 08:45:41 2020-03-16 09:51:05 [facility] 1.2840.114 350.1.13.10 4.2.7.2.686 [id number] [facility] 2020-03-16 09:00:00 2020-03-16 09:00:00 Outpatient R RACHEL REED [facility] [id number] [facility] 2020-03-16 00:00:00 2020-03-16 00:00:00 Orders Only Doctor Unassigned, Heron [facility] 1.2.840.114 350.1.13.10 4.2.7.2.686 [id number] 2020-03-16 00:00:00 2020-03-16 00:00:00 Transition of Care Della Cash Sheng [facility] 1.2.840.114 350.1.13.10 4.2.7.2.686 [id number] [facility] 2020-03-16 00:00:00 2020-03-16 00:00:00 Orders Only Doctor Unassigned, Heron [facility] 1.2.840.114 350.1.13.10 4.2.7.2.686 [id number] [facility] 2020-03-12 19:23:00 2020-03-13 18:35:00 Hospital Encounter Marah Prescott Eesha Jennie [facility] 1.2.840.114 350.1.13.10 4.2.7.2.686 [id number] [facility] 2020-03-12 15:49:15 2020-03-12 19:22:00 Hospital Encounter Radiology [facility] 1.2.840.114 350.1.13.10 4.2.7.2.686 [id number] [facility] 2020-03-12 16:00:00 2020-03-12 16:00:00 Outpatient R RADIOLOGY [facility] [id number] [facility] 2020-03-09 08:27:34 2020-03-09 09:11:09 Office Visit Carmelina Chaidez Jaafar F Banaag, Liza De Olazo [facility] 1.840.114 350.1.13.10 4.2.7.2.686 [id number] [facility] 2020-03-09 08:45:00 2020-03-09 08:45:00 Outpatient R [facility] [id number] [facility] 2020-03-09 00:00:00 2020-03-09 00:00:00 Orders Only Doctor Unassigned, Heron [facility] 1.840.114 350.1.13.10 4.2.7.2.686 [id number] [facility] 2020-03-03 09:55:25 2020-03-03 11:39:09 Office [facility] 1.840.114 350.1.13.10 4.2.7.2.686 [id number] [facility] 2020-03-03 10:00:00 2020-03-03 10:00:00 Outpatient R SHAHNAZ OATES [facility] [id number] [facility] 2020-01-16 14:30:00 2020-01-16 14:30:00 Outpatient R ANY TOWNSEND [facility] [id number] [facility] 2019-12-25 09:00:00 2019-12-25 09:00:00 Outpatient R SHAHNAZ OATES [facility] [id number] [facility] 2019-11-25 11:00:00 2019-11-25 11:00:00 Outpatient R KEVEN REDMOND [facility] [id number] [facility] 2019-10-24 09:45:00 2019-10-24 09:45:00 Outpatient R SHAHNAZ OATES [facility] [id number] [facility] 2019-09-23 00:00:00 2019-09-23 00:00:00 Refill Jan Gasca [facility] 1.2.840.114 350.1.13.10 4.2.7.2.686 [id number] [facility] 2019-08-20 09:40:00 2019-08-20 09:40:00 Outpatient Cristo JAN GASCA [facility] [id number] [facility] 2019-08-15 00:00:00 2019-08-15 00:00:00 Telephone Jan Gasca [facility] 1.2.840.114 350.1.13.10 4.2.7.2.686 [id number] [facility] 2019-05-21 09:36:08 2019-05-21 10:22:44 Linux Administrator Visit Pcp-Lab Jan Gasca [facility] 1.2.840.114 350.1.13.10 4.2.7.2.686 [id number] [facility] 2019-05-21 09:05:30 2019-05-21 09:34:34 Office Visit Jan Gasca [facility] 1.2.840.114 350.1.13.10 4.2.7.2.686 [id number] [facility] 2019-05-21 09:20:00 2019-05-21 09:20:00 Outpatient R JAN GASCA [facility] [id number] [facility] 2019-05-13 00:00:00 2019-05-13 00:00:00 Refill Jan Gasca [facility] 1.2.840.114 350.1.13.10 4.2.7.2.686 [id number] [facility] 2018-09-10 00:00:00 2018-09-10 00:00:00 Patient Secure Msg Doctor Unassigned, Heron [facility] 1.2.840.114 350.1.13.10 4.2.7.2.686 [id number] [facility] Orders Only Doctor Unassigned, Heron [facility] 1.2.840.114 350.1.13.10 4.2.7.2.686 [id number] [facility] Results Test Description Test Time Test Comments Results Result Comments Source Intravitreal Injection, Pharmacologic Agent - OD - Right Eye 20:50:04 Table formatting from the original result was not included.Time Out09/30/2024. 3:49 PM. Confirmed correct patient, procedure, site, and patient consented. AnesthesiaTopical anesthesia was used. Anesthetic medications included Lidocaine 3.5% gel, Proparacaine 0.5%. ProcedurePreparation included eyelid speculum. A 32 gauge needle was used. Injection:1.25 mg bevacizumab 1.25 mg/0.05 mL ?Route: Intravitreal, Site: Right Eye ?[facility]: [address]-7, Lot: [id number], Expiration date: 01/05/2025 Post-opPost injection exam found IOP < 30mmHg. The patient tolerated the procedure well. There were no complications. The patient received written and verbal post procedure care education. Post injection medications were not given. Notes Date of Service: 09/30/2024 Time out:Individual performing procedure identifiedCorrect patientCorrect siteCorrect procedure Surgeon: Carmelina Chaidez MD Eye: right PROCEDURE: IVT Avastin OD Allergies: Allergies Allergen Reactions Ivp Dye [Iodine And Iodide Containing Products] Rash Shellfish Derived Anaphylaxis Prep: Proparacaine and Betadine 5% ? Anesthesia: Akten 3.5% Patience Lin ?09/30/2024 ?3:00 [facility] - OD - Right [id number] 18:38:24Table formatting from the original result was not included.Time Out07/23/2024. 1:38 PM. Confirmed correct patient, procedure, site, and patient consented. AnesthesiaTopical anesthesia was used. Anesthetic medications included Lidocaine 3.5% gel. ProcedurePreparation included 5% betadine to ocular surface. A 32 gauge needle was used. Injection:1.25 mg bevacizumab 1.25 mg/0.05 mL ?Route: Intravitreal, Site: Right Eye ?[facility]: [address]-3, Lot: [id number], Expiration date: 10/05/2024 Post-opPost in jection exam found IOP < 30mmHg. The patient tolerated the procedure well. There were no complications. The patient received written and verbal post procedure care education. Post injection medications were not given. Notes Date of Service: 07/23/2024 Time out:Individual performing procedure identifiedCorrect patientCorrect siteCorrect procedure Surgeon: Carmelina Chaidez MD Eye: right PROCEDURE: IVT Avastin OD Allergies: Allergies Allergen Reactions Ivp Dye [Iodine And Iodide Containing Products] Rash Shellfish Derived Anaphylaxis Prep: Betadine 5% ? Anesthesia: Akten 3.5% SELMA JOHNSON ?07/23/2024 ?1:15 PM [facility] with [id number] 21:52:24* Test Item Value Reference Range Interpretation Comme nts WBC (test code = 6690-2) 3.08 4.30-11.10 L RBC (test code = 789-8) 4.36 3.93-5.25 HGB (test code = 718-7) 12.8 g/dL 11.6-15.0 HCT (test code = 4544-3) 40.1 % 35.7-45.2 MCV (test code = 787-2) 92.0 fL 80.6-95.5 MCH (test code = 785-6) 29.4 pg 25.9-32.8 MCHC (test code = 786-4) 31.9 g/dL 31.6-35.1 RDW-SD (test code = 90518-8) 54.4 fL 39.0-49.9 H RDW-CV (test code = 788-0) 16.0 % 12.0-15.5 H PLT (test code = 777-3) 249 166-358 MPV (test code = 40400-3) 9.7 fL 9.5-12.9 NRBC/100 WBC (test code = 0384127463) 0.0 0.0-10.0 NRBC x10^3 (test code = 7108935793) See_Comment [Automated messa ge] The system which generated this result transmitted reference range: 10*3/?L. The reference range was not used to interpret this result as normal/abnormal. GRAN MAT (NEUT) % (test code = 770-8) 33.7 % IMM GRAN % (test code = 4851928228) 0.30 % LYMPH % (test code = 736-9) 39.0 % MONO % (test code = 5905-5) 18.2 % EOS % (test code = 713-8) 7.8 % BASO % (test code = 706-2) 1.0 % GRAN MAT x10^3(ANC) (test code = 6905982795) 1.04 10*3/uL 1.88-7.09 L IMM GRAN x10^3 (test code = 8753353571) 0.00-0.06 LYMPH x10^3 (test code = 731-0) 1.20 10*3/uL 1.32-3.29 L MONO x10^3 (test code = 742-7) 0.56 10*3/uL 0.33-0.92 EOS x10^3 (test code = 711-2) 0.24 10*3/uL 0.03-0.39 BASO x10^3 (test code = 704-7) 0.03 10*3/uL 0.01-0.07 Lab Interpretation (test code = 14358-6) [id number]-14 21:30:37* Test Item Value Reference Range Interpretation Comme nts NA (test code = 0741559416) 135 mmol/L 135-145 K (test code = 0899754809) 4.7 mmol/L 3.5-5.0 CL (test code = 7361687613) 101 mmol/L 98-108 CO2 TOTAL (test code = 2553231602) 28 mmol/L 23-31 AGAP (test code = 6634737641) 6 2-16 BUN (test code = 0327103694) 22 mg/dL 7-23 GLUCOSE (test code = 4369698184) 199 mg/dL 70-110 H CREATININE (test code = 2160-0) 1.09 mg/dL 0.50-1.04 H TOTAL BILI (test code = 2591585434) 0.4 mg/dL 0.1-1.1 CALCIUM (test code = 7512483438) 8.3 mg/dL 8.6-10.6 L T PROTEIN (test code = 1353747257) 7.2 g/dL 6.3-8.2 ALBUMIN (test code = 7570788823) 3.8 g/dL 3.5-5.0 ALK PHOS (test code = 0763706120) 96 U/L 34-122 ALTv (test code = 1742-6) 19 U/L 5-35 AST(SGOT) (test code = 1520797622) 40 U/L 13-40 eGFR (test code = 04057-3) 57.6 mL/min/1.73m2 CKD-EPI eGFR (2020). Assuming creatinine has been stable day-to-day for at least three months, the eGFR indicates Category G3a (45 - 59 mL/min/1.73 m2) Lab Interpretation (test code = 18977-2) [facility] Test Item Value Reference Range Interpretation Comme nts LIPASE (test code = 9879249088) 168 U/L 0-220 Lab Interpretation (test cod e = 95058-4) Normal [facility] [id number] 16:06:11 Ordered by an unspecified provider.[facility] COMPREHENSIVE METABOLIC PANEL (60267)2024-05-11 00:00:00* Test Item Value Reference Range Interpretation Comme nts ABSOLUTE BASOPHILS (test code = 56118536) 70 cells/uL See_Comment N [Automated messa ge] The system which generated this result transmitted reference range: 0-200 cells/uL. The reference range was not used to interpret this result as normal/abnormal. ABSOLUTE EOSINOPHILS (test code = 59740587) 221 cells/uL See_Comment N [Automated messa ge] The system which generated this result transmitted reference range: 15-500 cells/uL. The reference range was not used to interpret this result as normal/abnormal. ABSOLUTE LYMPHOCYTES (test code = 32034632) 2111 cells/uL See_Comment N [Automated messa ge] The system which generated this result transmitted reference range: 850-3900 cells/uL. The reference range was not used to interpret this result as normal/abnormal. ABSOLUTE MONOCYTES (test code = 64621629) 383 cells/uL See_Comment N [Automated messa ge] The system which generated this result transmitted reference range: 200-950 cells/uL. The reference range was not used to interpret this result as normal/abnormal. ABSOLUTE NEUTROPHILS (test code = 59680423) 2614 cells/uL See_Comment N [Automated messa ge] The system which generated this result transmitted reference range: 6815-4540 cells/uL. The reference range was not used to interpret this result as normal/abnormal. BASOPHILS (test code = 57572871) 1.3 % N EOSINOPHILS (test code = 64960619) 4.1 % N HEMATOCRIT (test code = 73369942) 41.7 % See_Comment N [Automated mess age] The system which generated this result transmitted reference range: 35.0-45.0 %. The reference range was not used to interpret this result as normal/abnormal. HEMOGLOBIN (test code = 04183043) 13.4 g/dL See_Comment N [Automated mess age] The system which generated this result transmitted reference range: 11.7-15.5 g/dL. The reference range was not used to interpret this result as normal/abnormal. LYMPHOCYTES (test code = 52529623) 39.1 % N MCH (test code = 70335267) 29.5 pg See_Comment N [Automated messa ge] The system which generated this result transmitted reference range: 27.0-33.0 pg. The reference range was not used to interpret this result as normal/abnormal. MCHC (test code = 64660066) 32.1 g/dL See_Comment N [Automated messa ge] The system which generated this result transmitted reference range: 32.0-36.0 g/dL. The reference range was not used to interpret this result as normal/abnormal. MCV (test code = 07398965) 91.9 fL See_Comment N [Automated messa ge] The system which generated this result transmitted reference range: 80.0-100.0 fL. The reference range was not used to interpret this result as normal/abnormal. MONOCYTES (test code = 79838227) 7.1 % N MPV (test code = 68860841) 10.3 fL See_Comment N [Automated messa ge] The system which generated this result transmitted reference range: 7.5-12.5 fL. The reference range was not used to interpret this result as normal/abnormal. NEUTROPHILS (test code = 94520117) 48.4 % N PLATELET COUNT (test code = 75718948) 206 Thousand/uL See_Comment N [Automated message] The system which generated this result transmitted reference range: 140-400 Thousand/uL. The reference range was not used to interpret this result as normal/abnormal. RDW (test code = 21262105) 15.3 % See_Comment H [Automated messa ge] The system which generated this result transmitted reference range: 11.0-15.0 %. The reference range was not used to interpret this result as normal/abnormal. RED BLOOD CELL COUNT (test code = 55787020) 4.54 Million/uL See_Comment N [Automated message] The system which generated this result transmitted reference range: 3.80-5.10 Million/uL. The reference range was not used to interpret this result as normal/abnormal. WHITE BLOOD CELL COUNT (test code = 50349782) 5.4 Thousand/uL See_Comment N [Automated message] The system which generated this result transmitted reference range: 3.8-10.8 Thousand/uL. The reference range was not used to interpret this result as normal/abnormal. C-REACTIVE PROTEIN (test code = 57553684) <3.0 mg/L See_Comment N [Automated messa ge] The system which generated this result transmitted reference range: <8.0 mg/L. The reference range was not used to interpret this result as normal/abnormal. ALBUMIN (test code = 06582752) 3.8 g/dL See_Comment N [Automated messa ge] The system which generated this result transmitted reference range: 3.6-5.1 g/dL. The reference range was not used to interpret this result as normal/abnormal. ALBUMIN/GLOBULIN RATIO (test code = 10643023) 1.2 (calc) See_Comment N [Automated messa ge] The system which generated this result transmitted reference range: 1.0-2.5 (calc). The reference range was not used to interpret this result as normal/abnormal. ALKALINE PHOSPHATASE (test code = 20633016) 101 U/L See_Comment N [Automated messa ge] The system which generated this result transmitted reference range: 37-153 U/L. The reference range was not used to interpret this result as normal/abnormal. ALT (test code = 37380533) 10 U/L See_Comment N [Automated messa ge] The system which generated this result transmitted reference range: 6-29 U/L. The reference range was not used to interpret this result as normal/abnormal. AST (test code = 61287289) 15 U/L See_Comment N [Automated messa ge] The system which generated this result transmitted reference range: 10-35 U/L. The reference range was not used to interpret this result as normal/abnormal. BILIRUBIN, TOTAL (test code = 77538062) 0.7 mg/dL See_Comment N [Automated messa ge] The system which generated this result transmitted reference range: 0.2-1.2 mg/dL. The reference range was not used to interpret this result as normal/abnormal. BUN/CREATININE RATIO (test code = 75733867) 18 (calc) See_Comment N [Automated messa ge] The system which generated this result transmitted reference range: 6-22 (calc). The reference range was not used to interpret this result as normal/abnormal. CALCIUM (test code = [id number]) 9.0 mg/dL See_Comment N [Automated messa ge] The system which generated this result transmitted reference range: 8.6-10.4 mg/dL. The reference range was not used to interpret this result as normal/abnormal. CARBON DIOXIDE (test code = [id number]) 28 mmol/L See_Comment N [Automated mess age] The system which generated this result transmitted reference range: 20-32 mmol/L. The reference range was not used to interpret this result as normal/abnormal. CHLORIDE (test code = [id number]) 103 mmol/L See_Comment N [Automated [employer]] The system which generated this result transmitted reference range: 98-110 mmol/L. The reference range was not used to interpret this result as normal/abnormal. CREATININE (test code = 34119707) 1.27 mg/dL See_Comment H [Automated [employer]] The system which generated this result transmitted reference range: 0.50-1.05 mg/dL. The reference range was not used to interpret this result as normal/abnormal. GLOBULIN (test code = 04194806) 3.2 g/dL (calc) See_Comment N [Automated message] The system which generated this result transmitted reference range: 1.9-3.7 g/dL (calc). The reference range was not used to interpret this result as normal/abnormal. GLUCOSE (test code = 17412693) 154 mg/dL See_Comment H [Automated messa ge] The system which generated this result transmitted reference range: 65-99 mg/dL. The reference range was not used to interpret this result as normal/abnormal. POTASSIUM (test code = 33939389) 4.5 mmol/L See_Comment N [Automated [employer] ge] The system which generated this result transmitted reference range: 3.5-5.3 mmol/L. The reference range was not used to interpret this result as normal/abnormal. PROTEIN, TOTAL (test code = 28662383) 7.0 g/dL See_Comment N [Automated [employer] age] The system which generated this result transmitted reference range: 6.1-8.1 g/dL. The reference range was not used to interpret this result as normal/abnormal. SODIUM (test code = 55629897) 138 mmol/L See_Comment N [Automated messa ge] The system which generated this result transmitted reference range: 135-146 mmol/L. The reference range was not used to interpret this result as normal/abnormal. UREA NITROGEN (BUN) (test code = 75754205) 23 mg/dL See_Comment N [Automated messa ge] The system which generated this result transmitted reference range: 7-25 mg/dL. The reference range was not used to interpret this result as normal/abnormal. Intravitreal Injection, Pharmacologic Agent - OD - Right [id number] 21:50:36 Table formatting from the original result was not included.Time Out03/19/2024. 3:50 PM. Confirmed correct patient, procedure, site, and patient consented. AnesthesiaTopical anesthesia was used. Anesthetic medications included Lidocaine 3.5% gel. ProcedurePreparation included 5% betadine to ocular surface. A 32 gauge needle was used. Injection:1.25 mg bevacizumab 1.25 mg/0.05 mL ?Route: Intravitreal, Site: Right Eye ?[facility]: [id number], Lot: [id number], Expiration date: 06/15/2024 Post-opPost injection exam found IOP < 30mmHg. The patient tolerated the procedure well. There were no complications. The patient received written and verbal post procedure care education. Post injection medications were not given. Notes Date of Service: 03/19/2024 Time out:Individual performing procedure identifiedCorrect patientCorrect siteCorrect procedure Surgeon: Carmelina Chaidez MD Eye: right PROCEDURE: IVT Avastin OD Allergies: Allergies Allergen Reactions Ivp Dye [Iodine And Iodide Containing Products] Ra sh Shellfish Derived Anaphylaxis Prep: Betadine 5% ? Anesthesia: Akten 3.5% Brittny Montero ?03/19/2024 ?3:33 [facility]UnC[facility]ellandC-REACTIVE PR[facility]IN (4420)2024-02-03 00:00:00* Test Item Value Reference Range Interpretation Comme nts ALBUMIN (test code = 40114520) 4.1 g/dL See_Comment N [Automated [employer]] The system which generated this result transmitted reference range: 3.6-5.1 g/dL. The reference range was not used to interpret this result as normal/abnormal. ALBUMIN/GLOBULIN RATIO (test code = 87726561) 1.4 (calc) See_Comment N [Automated [employer]] The system which generated this result transmitted reference range: 1.0-2.5 (calc). The reference range was not used to interpret this result as normal/abnormal. ALKALINE PHOSPHATASE (test code = 69427706) 107 U/L See_Comment N [Automated [employer]] The system which generated this result transmitted reference range: 37-153 U/L. The reference range was not used to interpret this result as normal/abnormal. ALT (test code = 65785610) 11 U/L See_Comment N [Automated messa ge] The system which generated this result transmitted reference range: 6-29 U/L. The reference range was not used to interpret this result as normal/abnormal. AST (test code = 76907660) 16 U/L See_Comment N [Automated messa ge] The system which generated this result transmitted reference range: 10-35 U/L. The reference range was not used to interpret this result as normal/abnormal. BILIRUBIN, TOTAL (test code = 83151181) 0.6 mg/dL See_Comment N [Automated messa ge] The system which generated this result transmitted reference range: 0.2-1.2 mg/dL. The reference range was not used to interpret this result as normal/abnormal. BUN/CREATININE RATIO (test code = 13889635) 20 (calc) See_Comment N [Automated messa ge] The system which generated this result transmitted reference range: 6-22 (calc). The reference range was not used to interpret this result as normal/abnormal. CALCIUM (test code = 69250216) 9.2 mg/dL See_Comment N [Automated messa ge] The system which generated this result transmitted reference range: 8.6-10.4 mg/dL. The reference range was not used to interpret this result as normal/abnormal. CARBON DIOXIDE (test code = 20393305) 26 mmol/L See_Comment N [Automated mess age] The system which generated this result transmitted reference range: 20-32 mmol/L. The reference range was not used to interpret this result as normal/abnormal. CHLORIDE (test code = 98477850) 103 mmol/L See_Comment N [Automated messa ge] The system which generated this result transmitted reference range: 98-110 mmol/L. The reference range was not used to interpret this result as normal/abnormal. CREATININE (test code = 32417743) 1.36 mg/dL See_Comment H [Automated mess age] The system which generated this result transmitted reference range: 0.50-1.05 mg/dL. The reference range was not used to interpret this result as normal/abnormal. GLOBULIN (test code = 55360438) 2.9 g/dL (calc) See_Comment N [Automated message] The system which generated this result transmitted reference range: 1.9-3.7 g/dL (calc). The reference range was not used to interpret this result as normal/abnormal. GLUCOSE (test code = 44257755) 125 mg/dL See_Comment N [Automated messa ge] The system which generated this result transmitted reference range: 65-139 mg/dL. The reference range was not used to interpret this result as normal/abnormal. POTASSIUM (test code = 79754405) 4.9 mmol/L See_Comment N [Automated messa ge] The system which generated this result transmitted reference range: 3.5-5.3 mmol/L. The reference range was not used to interpret this result as normal/abnormal. PROTEIN, TOTAL (test code = 02683143) 7.0 g/dL See_Comment N [Automated mess age] The system which generated this result transmitted reference range: 6.1-8.1 g/dL. The reference range was not used to interpret this result as normal/abnormal. SODIUM (test code = 21809806) 139 mmol/L See_Comment N [Automated messa ge] The system which generated this result transmitted reference range: 135-146 mmol/L. The reference range was not used to interpret this result as normal/abnormal. UREA NITROGEN (BUN) (test code = 83099395) 27 mg/dL See_Comment H [Automated messa ge] The system which generated this result transmitted reference range: 7-25 mg/dL. The reference range was not used to interpret this result as normal/abnormal. ABSOLUTE BASOPHILS (test code = 74187668) 42 cells/uL See_Comment N [Automated messa ge] The system which generated this result transmitted reference range: 0-200 cells/uL. The reference range was not used to interpret this result as normal/abnormal. ABSOLUTE EOSINOPHILS (test code = 35273196) 170 cells/uL See_Comment N [Automated messa ge] The system which generated this result transmitted reference range: 15-500 cells/uL. The reference range was not used to interpret this result as normal/abnormal. ABSOLUTE LYMPHOCYTES (test code = 97843399) 1654 cells/uL See_Comment N [Automated messa ge] The system which generated this result transmitted reference range: 850-3900 cells/uL. The reference range was not used to interpret this result as normal/abnormal. ABSOLUTE MONOCYTES (test code = 94601173) 546 cells/uL See_Comment N [Automated messa ge] The system which generated this result transmitted reference range: 200-950 cells/uL. The reference range was not used to interpret this result as normal/abnormal. ABSOLUTE NEUTROPHILS (test code = 71838799) 2889 cells/uL See_Comment N [Automated messa ge] The system which generated this result transmitted reference range: 8577-1716 cells/uL. The reference range was not used to interpret this result as normal/abnormal. BASOPHILS (test code = 74741519) 0.8 % N EOSINOPHILS (test code = 54828880) 3.2 % N HEMATOCRIT (test code = 07214054) 42.0 % See_Comment N [Automated mess age] The system which generated this result transmitted reference range: 35.0-45.0 %. The reference range was not used to interpret this result as normal/abnormal. HEMOGLOBIN (test code = 86803011) 13.8 g/dL See_Comment N [Automated mess age] The system which generated this result transmitted reference range: 11.7-15.5 g/dL. The reference range was not used to interpret this result as normal/abnormal. LYMPHOCYTES (test code = 05353546) 31.2 % N MCH (test code = 76761840) 30.8 pg See_Comment N [Automated messa ge] The system which generated this result transmitted reference range: 27.0-33.0 pg. The reference range was not used to interpret this result as normal/abnormal. MCHC (test code = 89595573) 32.9 g/dL See_Comment N [Automated messa ge] The system which generated this result transmitted reference range: 32.0-36.0 g/dL. The reference range was not used to interpret this result as normal/abnormal. MCV (test code = 68430235) 93.8 fL See_Comment N [Automated messa ge] The system which generated this result transmitted reference range: 80.0-100.0 fL. The reference range was not used to interpret this result as normal/abnormal. MONOCYTES (test code = 56527792) 10.3 % N MPV (test code = 96603828) 10.2 fL See_Comment N [Automated messa ge] The system which generated this result transmitted reference range: 7.5-12.5 fL. The reference range was not used to interpret this result as normal/abnormal. NEUTROPHILS (test code = 70308858) 54.5 % N PLATELET COUNT (test code = 58409461) 247 Thousand/uL See_Comment N [Automated message] The system which generated this result transmitted reference range: 140-400 Thousand/uL. The reference range was not used to interpret this result as normal/abnormal. RDW (test code = 17491233) 15.2 % See_Comment H [Automated [employer]] The system which generated this result transmitted reference range: 11.0-15.0 %. The reference range was not used to interpret this result as normal/abnormal. RED BLOOD CELL COUNT (test code = 19749446) 4.48 Million/uL See_Comment N [Automated message] The system which generated this result transmitted reference range: 3.80-5.10 Million/uL. The reference range was not used to interpret this result as normal/abnormal. WHITE BLOOD CELL COUNT (test code = 12773920) 5.3 Thousand/uL See_Comment N [Automated message] The system which generated this result transmitted reference range: 3.8-10.8 Thousand/uL. The reference range was not used to interpret this result as normal/abnormal. C-REACTIVE PROTEIN (test code = 07192511) <3.0 mg/L See_Comment N [Automated [employer]] The system which generated this result transmitted reference range: <8.0 mg/L. The reference range was not used to interpret this result as normal/abnormal. Intravitreal Injection, Pharmacologic Agent - OD - Right [id number] 21:24:32 Table formatting from the original result was not included.Time Out01/05/2024. 4:24 PM. Confirmed correct patient, procedure, site, and patient consented. AnesthesiaTopical anesthesia was used. Anesthetic medications included Lidocaine 3.5% gel. ProcedurePreparation included 5% betadine to ocular surface. A 32 gauge needle was used. Injection:1.25 mg bevacizumab 1.25 mg/0.05 mL ?Route: Intravitreal, Site: Right Eye ?[facility]: [id number], Lot: [id number], Expiration date: 03/28/2024 Post-opPost injection exam found IOP < 30mmHg. The patient tolerated the procedure well. There were no complications. The patient received written and verbal post procedure care education. Post injection medica tions were not given. Notes Date of Service: 01/05/2024 Time out:Individual performing procedure identifiedCorrect patientCorrect siteCorrect procedure Surgeon: Carmelina Chaidez MD Eye: right PROCEDURE:IVT Avastin OD Allergies: Allergies Allergen Reactions Ivp Dye [Iodine And Iodide Containing Products] Rash Shellfish Derived Anaphylaxis Prep: Betadine 5% ? Anesthesia: Akten 3.5% SELMA R JOHNSON ?01/05/2024 ?3:22 [facility] Hem[facility]C [id number] 16:36:00* Test Item Value Reference Range Interpretation Comme [facility] HBA1C (test code = 4548-4) 6.6 % 4-6 A Lab Interpretation (test cod e = 75840-8) Abnormal [facility] GLUCOSE (AUTOMATED)2023-10-26 13:30:59* Test Item Value Reference Range Interpretation Comme nts POCT GLU (test code = 4928496431) 113 mg/dL 70-110 H Lab Interpretation (test cod e = 31368-4) Abnormal [facility] GLUCOSE (AUTOMATED)2023-10-26 13:30:59* Test Item Value Reference Range Interpretation Comme nts POCT GLU (test code = 1049165802) 113 mg/dL 70-110 H Lab Interpretation (test cod e = 55777-9) Abnormal [facility] GLUCOSE (AUTOMATED)2023-10-26 03:18:20* Test Item Value Reference Range Interpretation Comme nts POCT GLU (test code = 0110974515) 94 mg/dL 70-110 Lab Interpretation (test cod e = 79845-7) Normal [facility] GLUCOSE (AUTOMATED)2023-10-26 03:18:20* Test Item Value Reference Range Interpretation Comme nts POCT GLU (test code = 0843736665) 94 mg/dL 70-110 Lab Interpretation (test cod e = 28707-5) Normal [facility] GLUCOSE (AUTOMATED)2023-10-25 22:08:23* Test Item Value Reference Range Interpretation Comme nts POCT GLU (test code = 8496138451) 80 mg/dL 70-110 Lab Interpretation (test cod e = 35903-4) Normal [facility] GLUCOSE (AUTOMATED)2023-10-25 22:08:23* Test Item Value Reference Range Interpretation Comme nts POCT GLU (test code = 8970722299) 80 mg/dL 70-110 Lab Interpretation (test cod e = 44007-7) Normal [facility] GLUCOSE (AUTOMATED)2023-10-25 18:41:25* Test Item Value Reference Range Interpretation Comme nts POCT GLU (test code = 6916656355) 87 mg/dL 70-110 Lab Interpretation (test cod e = 63101-3) Normal [facility] GLUCOSE (AUTOMATED)2023-10-25 18:41:25* Test Item Value Reference Range Interpretation Comme nts POCT GLU (test code = 7633265251) 87 mg/dL 70-110 Lab Interpretation (test cod e = 54932-9) Normal [facility] GLUCOSE (AUTOMATED)2023-09-07 12:38:37* Test Item Value Reference Range Interpretation Comme nts POCT GLU (test code = 4358472666) 150 mg/dL 70-110 H Lab Interpretation (test cod e = 51555-5) Abnormal [facility] GLUCOSE (AUTOMATED)2023-09-07 12:38:37* Test Item Value Reference Range Interpretation Comme nts POCT GLU (test code = 8307327792) 150 mg/dL 70-110 H Lab Interpretation (test cod e = 73709-3) [facility] - OD - Right [id number] 13:51:32Table formatting from the original result was not included.Time Out08/28/2023. 8:51 AM. Confirmed correct patient, procedure, site, and patient consented. AnesthesiaTopical anesthesia was used. Anesthetic medications included Lidocaine 3.5% gel, Proparacaine 0.5%. ProcedurePreparation included 5% betadine to ocular surface. A 32 gauge needle was used. Injection:1.25 mg bevacizumab 1.25 mg/0.05 mL ?Route: Intravitreal, Site: Right Eye ?[facility]: [address]-4, Lot: [id number], Expiration date: 11/23/2023 Post- opPost injection exam found IOP < 30mmHg. The patient tolerated the procedure well. There were no complications. The patient received written and verbal post procedure care education. Post injection medications were not given. Notes Date of Service: 08/28/2023 Time out:Individual performing procedure identifiedCorrect patientCorrect siteCorrect procedure Surgeon: Carmelina Chaidez MD Eye:Right PROCEDURE: Avastin OD Allergies: Allergies Allergen Reactions Ivp Dye [Iodine And Iodide Containing Products] Rash Shellfish Derived Anaphylaxis Prep: Proparacaine and Betadine 5% ? Anesthesia:Akten 3.5% Brittny S Oates ?08/28/2023 ?8:07 AMUnC[facility]andOPHTHALMOLOGY DIAGNOSTIC [id number] 19:43:34Ordered by an unspecified provider.[facility] [id number] 19:43:34Ordered by an unspecified provider.[facility] [id number] 19:41:28Ordered by an unspecified provider.[facility] [id number] 19:41:28Ordered by an unspecified provider.[facility] Hemoglobin A1C [id number] 17:07:00* Test Item Value Reference Range Interpretation Comme [facility] PO[facility] HBA1C (test code = 4548-4) 8.9 % 4-6 A Lab Interpretation (test cod e = 41101-8) Abnormal [facility] Hemoglobin A1C [id number] 17:07:00* Test Item Value Reference Range Interpretation Comme [facility] PO[facility] HBA1C (test code = 4548-4) 8.9 % 4-6 A Lab Interpretation (test cod e = 11855-6) [facility]normal [facility]THES[facility] [id number] 18:19:29Examination:BI SCREENING TOMOSYNTHESIS BILATERAL History:Patient is 62 year old and is seen for: ?Screening. Computer-aided detection (CAD) utilized. Comparisons: 02/01/2017 SCREENING DIGITAL BREAST NUHA Findings:The breasts have scattered areas of fibroglandular density. There is no evidence of suspicious masses, calcifications, or other abnormal findings. Impression:No mammographic evidence of malignancy. Recommendation:Annual mammographic follow-up BI-RADS Category: Both 1 - [facility]Un[facility] URINALYSIS W/O SPECIFIC [id number] 16:05:00* Test Item Value Reference Range Interpretation Comme nts POCT PH U (test code = 3254) 5 mg/dl 5-8 POCT U LEUK EST (test code = 3263) ++ Negative - Negative POCT U NIT (test code = 3262) Negative Negative - Negati ve POCT U PROT (test code = 3259) Negative Negative - Negat nevaeh POCT U GLU (test code = 3256) 1000 Negative - Negati ve POCT U KETONE (test code = 3258) Negative Negative - Neg ative POCT U BLD (test code = 3257) 250 Negative - Negati ve [facility] URINALYSIS W/O SPECIFIC [id number] 16:05:00* Test Item Value Reference Range Interpretation Comme nts POCT PH U (test code = 3254) 5 mg/dl 5-8 POCT U LEUK EST (test code = 3263) ++ Negative - Negative POCT U NIT (test code = 3262) Negative Negative - Negati ve POCT U PROT (test code = 3259) Negative Negative - Negat nevaeh POCT U GLU (test code = 3256) 1000 Negative - Negati ve POCT U KETONE (test code = 3258) Negative Negative - Neg ative POCT U BLD (test code = 3257) 250 Negative - Negati ve [facility] HEMOGLOBIN A1C [id number] 20:17:00* Test Item Value Reference Range Interpretation Comme nts POCT HBA1C (test code = 4548-4) 8.7 % 4-6 A Lab Interpretation (test cod e = 29516-7) Abnormal [facility] HEMOGLOBIN A1C [id number] 20:17:00* Test Item Value Reference Range Interpretation Comme nts POCT HBA1C (test code = 4548-4) 8.7 % 4-6 A Lab Interpretation (test cod e = 65840-5) Abnormal [facility] HEMOGLOBIN A1C [id number] 17:03:00* Test Item Value Reference Range Interpretation Comme nts POCT HBA1C (test code = 4548-4) 7.4 % 4-6 A Lab Interpretation (test cod e = 30865-1) Abnormal [facility] HEMOGLOBIN A1C [id number] 17:03:00* Test Item Value Reference Range Interpretation [facility] PO[facility] HBA1C (test code = 4548-4) 7.4 % 4-6 A Lab Interpretation (test cod e = 26031-0) Abnormal [facility] HEMOGLOBIN A1C [id number] 21:26:00* Test Item Value Reference Range Interpretation [facility] POCT HBA1C (test code = 4548-4) 11.4 % 4-6 A Lab Interpretation (test cod e = 71068-5) Abnormal [facility] HEMOGLOBIN A1C [id number] 21:26:00* Test Item Value Reference Range Interpretation Comme [facility] POCT HBA1C (test code = 4548-4) 11.4 % 4-6 A Lab Interpretation (test cod e = 10360-2) [facility]normal [facility] CenterGL[facility] [id number] 20:43:00* Test Item Value Reference Range Interpretation Comme [facility] GLUCOSE BEDSIDE (test code = GLUBED) 238 MG/DL 70-110 H Performed by cer tified drum operator at [facility] GLUCOSE [id number] 11:42:00* Test Item Value Reference Range Interpretation Comme [facility] GLUCOSE BEDSIDE (test code = GLUBED) 240 MG/DL 70-110 H Performed by cer tified drum operator at [facility] BASIC METABOLIC [id number] 11:01:00* Test Item Value Reference Range Interpretation Comme [facility] SODIUM (test code = NA) 139 mEq/L 134-147 N POTASSIUM (test code = K) 4.2 mEq/L 3.4-5.0 N CHLORIDE (test code = CL) 107 mEq/L 100-108 N CARBON DIOXIDE (test code = CO2) 25 mEq/l 21-33 N ANION GAP (test code = GAP) 11 0-20 N GLUCOSE (test code = GLU) 220 mg/dL 70-110 H BLOOD UREA NITROGEN (test code = BUN) 26 mg/dL 7-18 H GLOMERULAR FILTRATION RATE (test code = GFR) 46.0 90-95 L Units of measure = ml/min/1.73 m2 CREATININE (test code = CREAT) 1.2 mg/dL 0.6-1.3 N CALCIUM (test code = CA) 7.9 mg/dL 8.0-10.5 L [id number] 11:01:00* Test Item Value Reference Range Interpretation Comme nts PHOSPHOROUS (test code = PHOS) 2.4 MG/DL 2.5-4.9 L [id number] 11:01:00* Test Item Value Reference Range Interpretation Comme nts MAGNESIUM (test code = MAG) 1.89 mg/dL 1.80-2.40 CALCIUM [id number] 11:01:00* Test Item Value Reference Range Interpretation Comme nts CALCIUM IONIZED (test code = RYLEE) 1.15 MMOL/L 1.12-1.32 N GLUCOSE [id number] 08:02:00* Test Item Value Reference Range Interpretation Comme nts GLUCOSE BEDSIDE (test code = GLUBED) 183 MG/DL 70-110 H Performed by cer tified drum operator at [facility] CBC W/AUTO [id number] 05:11:00* Test Item Value Reference Range Interpretation Comme nts WHITE BLOOD CELL (test code = WBC) 8.8 x10 3/uL 4.5-11.0 RED BLOOD CELL (test code = RBC) 2.78 x10 6/uL 3.54-5.02 L HEMOGLOBIN (test code = HGB) 8.2 g/dL 11.0-15.0 L HEMATOCRIT (test code = HCT) 25.2 % 33.0-45.0 L MEAN CELL VOLUME (test code = MCV) 90.6 fL 81.0-99.0 N MEAN CELL HGB (test code = MCH) 29.5 pg 27.0-33.0 N MEAN CELL HGB CONCETRATION (test code = MCHC) 32.5 g/dL 33.0-37.0 L RED CELL DISTRIBUTION WIDTH CV (test code = RDW) 16.7 % 11.5-14.5 H RED CELL DISTRIBUTION WIDTH SD (test code = RDW-SD) 55.6 fL 37.0-54.0 H PLATELET COUNT (test code = PLT) 213 x10 3/uL 150-400 N MEAN PLATELET VOLUME (test c ode = MPV) 9.8 fL 7.0-9.0 H NEUTROPHIL % (test code = NT%) 63.3 % 56.0-77.0 N IMMATURE GRANULOCYTE % (test code = IG%) 1.4 % 0.0-2.0 N LYMPHOCYTE % (test code = LY%) 23.2 % 14.0-32.0 N MONOCYTE % (test code = MO%) 10.5 % 4.8-9.0 H EOSINOPHIL % (test code = EO%) 1.3 % 0.3-3.7 N BASOPHIL % (test code = BA%) 0.3 % 0.0-2.0 N NUCLEATED RBC % (test code = NRBC%) 0.0 % 0-0 N NEUTROPHIL # (test code = NT#) 5.55 x10 3/uL 2.0-7.6 N IMMATURE GRANULOCYTE # (test code = IG#) 0.12 x10 3/uL 0.00-0.03 H LYMPHOCYTE # (test code = LY#) 2.03 x10 3/uL 1.0-3.8 N MONOCYTE # (test code = MO#) 0.92 x10 3/uL 0.1-0.8 H EOSINOPHIL # (test code = EO#) 0.11 x10 3/uL 0.0-0.2 N BASOPHIL # (test code = BA#) 0.03 x10 3/uL 0.0-0.2 N NUCLEATED RBC # (test code = NRBC#) 0.00 x10 3/uL 0.0-0.1 N MANUAL DIFF REQUIRED (test c ode = MDIFF) NO GLUCOSE [id number] 20:13:00* Test Item Value Reference Range Interpretation Comme nts GLUCOSE BEDSIDE (test code = GLUBED) 251 MG/DL 70-110 H Performed by cer ririied drum operator at [facility] CBC W/AUTO [id number] 15:36:00* Test Item Value Reference Range Interpretation Comme nts WHITE BLOOD CELL (test code = WBC) 14.8 x10 3/uL 4.5-11.0 H RED BLOOD CELL (test code = RBC) 2.77 x10 6/uL 3.54-5.02 L HEMOGLOBIN (test code = HGB) 8.1 g/dL 11.0-15.0 L HEMATOCRIT (test code = HCT) 25.0 % 33.0-45.0 L MEAN CELL VOLUME (test code = MCV) 90.3 fL 81.0-99.0 N MEAN CELL HGB (test code = MCH) 29.2 pg 27.0-33.0 N MEAN CELL HGB CONCETRATION (test code = MCHC) 32.4 g/dL 33.0-37.0 L RED CELL DISTRIBUTION WIDTH CV (test code = RDW) 16.3 % 11.5-14.5 H PLATELET COUNT (test code = PLT) 256 x10 3/uL 150-400 N NEUTROPHIL % (test code = NT%) 71.9 % 56.0-77.0 N LYMPHOCYTE % (test code = LY%) 17.7 % 14.0-32.0 N NEUTROPHIL # (test code = NT#) 10.65 x10 3/uL 2.0-7.6 H LYMPHOCYTE # (test code = LY#) 2.62 x10 3/uL 1.0-3.8 N MANUAL DIFF REQUIRED (test code = MDIFF) NO RED CELL DISTRIBUTION WIDTH SD (test code = RDW-SD) 53.8 fL 37.0-54.0 N MEAN PLATELET VOLUME (test code = MPV) 9.8 fL 7.0-9.0 H IMMATURE GRANULOCYTE % (test code = IG%) 0.8 % 0.0-2.0 N MONOCYTE % (test code = MO%) 9.2 % 4.8-9.0 H EOSINOPHIL % (test code = EO%) 0.3 % 0.3-3.7 N BASOPHIL % (test code = BA%) 0.1 % 0.0-2.0 N NUCLEATED RBC % (test code = NRBC%) 0.0 % 0-0 N IMMATURE GRANULOCYTE # (test code = IG#) 0.12 x10 3/uL 0.00-0.03 H MONOCYTE # (test code = MO#) 1.37 x10 3/uL 0.1-0.8 H EOSINOPHIL # (test code = EO#) 0.05 x10 3/uL 0.0-0.2 N BASOPHIL # (test code = BA#) 0.02 x10 3/uL 0.0-0.2 N NUCLEATED RBC # (test code = NRBC#) 0.00 x10 3/uL 0.0-0.1 N GLUCOSE [id number] 11:15:00* Test Item Value Reference Range Interpretation Comme nts GLUCOSE BEDSIDE (test code = GLUBED) 148 MG/DL 70-110 H Performed by cer tified drum operator at [facility] GLUCOSE [id number] 06:11:00* Test Item Value Reference Range Interpretation Comme nts GLUCOSE BEDSIDE (test code = GLUBED) 106 MG/DL 70-110 N Performed by cer tified drum operator at [facility] BASIC METABOLIC [id number] 05:29:00* Test Item Value Reference Range Interpretation Comme nts SODIUM (test code = NA) 135 mEq/L 134-147 N POTASSIUM (test code = K) 4.6 mEq/L 3.4-5.0 N CHLORIDE (test code = CL) 106 mEq/L 100-108 N CARBON DIOXIDE (test code = CO2) 22 mEq/l 21-33 N ANION GAP (test code = GAP) 11 0-20 N GLUCOSE (test code = GLU) 151 mg/dL 70-110 H BLOOD UREA NITROGEN (test code = BUN) 24 mg/dL 7-18 H GLOMERULAR FILTRATION RATE (test code = GFR) 41.9 90-95 L Units of measure = ml/min/1.73 m2 CREATININE (test code = CREAT) 1.3 mg/dL 0.6-1.3 N CALCIUM (test code = CA) 8.6 mg/dL 8.0-10.5 N [id number] 05:29:00* Test Item Value Reference Range Interpretation Comme nts MAGNESIUM (test code = MAG) 2.54 mg/dL 1.80-2.40 H GLUCOSE [id number] 05:19:00* Test Item Value Reference Range Interpretation Comme [facility] GLU[facility] BEDSIDE (test code = GLUBED) 118 MG/DL 70-110 H Performed by cer tified drum operator at [facility] CBC W/AUTO [id number] 05:11:00* Test Item Value Reference Range Interpretation Comme nts WHITE BLOOD CELL (test code = WBC) 12.9 x10 3/uL 4.5-11.0 H RED BLOOD CELL (test code = RBC) 3.07 x10 6/uL 3.54-5.02 L HEMOGLOBIN (test code = HGB) 8.7 g/dL 11.0-15.0 L HEMATOCRIT (test code = HCT) 27.7 % 33.0-45.0 L MEAN CELL VOLUME (test code = MCV) 90.2 fL 81.0-99.0 N MEAN CELL HGB (test code = MCH) 28.3 pg 27.0-33.0 N MEAN CELL HGB CONCETRATION (test code = MCHC) 31.4 g/dL 33.0-37.0 L RED CELL DISTRIBUTION WIDTH CV (test code = RDW) 16.1 % 11.5-14.5 H RED CELL DISTRIBUTION WIDTH SD (test code = RDW-SD) 53.1 fL 37.0-54.0 N PLATELET COUNT (test code = PLT) 312 x10 3/uL 150-400 N MEAN PLATELET VOLUME (test c ode = MPV) 9.7 fL 7.0-9.0 H NEUTROPHIL % (test code = NT%) 76.4 % 56.0-77.0 N IMMATURE GRANULOCYTE % (test code = IG%) 1.5 % 0.0-2.0 N LYMPHOCYTE % (test code = LY%) 14.2 % 14.0-32.0 N MONOCYTE % (test code = MO%) 7.7 % 4.8-9.0 N EOSINOPHIL % (test code = EO%) 0.0 % 0.3-3.7 L BASOPHIL % (test code = BA%) 0.2 % 0.0-2.0 N NUCLEATED RBC % (test code = NRBC%) 0.0 % 0-0 N NEUTROPHIL # (test code = NT#) 9.86 x10 3/uL 2.0-7.6 H IMMATURE GRANULOCYTE # (test code = IG#) 0.19 x10 3/uL 0.00-0.03 H LYMPHOCYTE # (test code = LY#) 1.83 x10 3/uL 1.0-3.8 N MONOCYTE # (test code = MO#) 0.99 x10 3/uL 0.1-0.8 H EOSINOPHIL # (test code = EO#) 0.00 x10 3/uL 0.0-0.2 N BASOPHIL # (test code = BA#) 0.02 x10 3/uL 0.0-0.2 N NUCLEATED RBC # (test code = NRBC#) 0.00 x10 3/uL 0.0-0.1 N MANUAL DIFF REQUIRED (test c ode = MDIFF) NO GLUCOSE [id number] 04:07:00* Test Item Value Reference Range Interpretation Comme nts GLUCOSE BEDSIDE (test code = GLUBED) 170 MG/DL 70-110 H Performed by cer tified drum operator at [facility] GLUCOSE [id number] 03:11:00* Test Item Value Reference Range Interpretation Comme nts GLUCOSE BEDSIDE (test code = GLUBED) 219 MG/DL 70-110 H Performed by cer tified drum operator at [facility] GLUCOSE [id number] 02:08:00* Test Item Value Reference Range Interpretation Comme nts GLUCOSE BEDSIDE (test code = GLUBED) 256 MG/DL 70-110 H Performed by cer tified drum operator at [facility] GLUCOSE [id number] 01:12:00* Test Item Value Reference Range Interpretation Comme nts GLUCOSE BEDSIDE (test code = GLUBED) 307 MG/DL 70-110 H Performed by cer tified drum operator at [facility] GLUCOSE [id number] 00:14:00* Test Item Value Reference Range Interpretation Comme nts GLUCOSE BEDSIDE (test code = GLUBED) 333 MG/DL 70-110 H Performed by cer tified drum operator at [facility] GLUCOSE [id number] 23:07:00* Test Item Value Reference Range Interpretation Comme nts GLUCOSE BEDSIDE (test code = GLUBED) 328 MG/DL 70-110 H Performed by cer tified drum operator at [facility] GLUCOSE [id number] 21:15:00* Test Item Value Reference Range Interpretation Comme nts GLUCOSE BEDSIDE (test code = GLUBED) 402 MG/DL 70-110 H Performed by cer tified drum operator at [facility] GLUCOSE [id number] 20:33:00* Test Item Value Reference Range Interpretation Comme nts GLUCOSE BEDSIDE (test code = GLUBED) 417 MG/DL 70-110 H Performed by cer tified drum operator at [facility] CBC W/AUTO [id number] 19:48:00* Test Item Value Reference Range Interpretation Comme nts WHITE BLOOD CELL (test code = WBC) 11.0 x10 3/uL 4.5-11.0 N RED BLOOD CELL (test code = RBC) 3.02 x10 6/uL 3.54-5.02 L HEMOGLOBIN (test code = HGB) 8.8 g/dL 11.0-15.0 L HEMATOCRIT (test code = HCT) 27.2 % 33.0-45.0 L MEAN CELL VOLUME (test code = MCV) 90.1 fL 81.0-99.0 N MEAN CELL HGB (test code = MCH) 29.1 pg 27.0-33.0 N MEAN CELL HGB CONCETRATION (test code = MCHC) 32.4 g/dL 33.0-37.0 L RED CELL DISTRIBUTION WIDTH CV (test code = RDW) 16.2 % 11.5-14.5 H PLATELET COUNT (test code = PLT) 304 x10 3/uL 150-400 N NEUTROPHIL % (test code = NT%) 85.9 % 56.0-77.0 H LYMPHOCYTE % (test code = LY%) 10.4 % 14.0-32.0 L NEUTROPHIL # (test code = NT#) 9.47 x10 3/uL 2.0-7.6 H LYMPHOCYTE # (test code = LY#) 1.14 x10 3/uL 1.0-3.8 N MANUAL DIFF REQUIRED (test c ode = MDIFF) NO RED CELL DISTRIBUTION WIDTH SD (test code = RDW-SD) 53.7 fL 37.0-54.0 N MEAN PLATELET VOLUME (test c ode = MPV) 9.7 fL 7.0-9.0 H IMMATURE GRANULOCYTE % (test code = IG%) 1.4 % 0.0-2.0 N MONOCYTE % (test code = MO%) 2.2 % 4.8-9.0 L EOSINOPHIL % (test code = EO%) 0.0 % 0.3-3.7 L BASOPHIL % (test code = BA%) 0.1 % 0.0-2.0 N NUCLEATED RBC % (test code = NRBC%) 0.0 % 0-0 N IMMATURE GRANULOCYTE # (test code = IG#) 0.15 x10 3/uL 0.00-0.03 H MONOCYTE # (test code = MO#) 0.24 x10 3/uL 0.1-0.8 N EOSINOPHIL # (test code = EO#) 0.00 x10 3/uL 0.0-0.2 N BASOPHIL # (test code = BA#) 0.01 x10 3/uL 0.0-0.2 N NUCLEATED RBC # (test code = NRBC#) 0.00 x10 3/uL 0.0-0.1 N GLUCOSE [id number] 19:23:00* Test Item Value Reference Range Interpretation Comme nts GLUCOSE BEDSIDE (test code = GLUBED) 427 MG/DL 70-110 H Performed by cer tified drum operator at [facility] BASIC METABOLIC [id number] 18:50:00* Test Item Value Reference Range Interpretation Comme nts SODIUM (test code = NA) 133 mEq/L 134-147 L POTASSIUM (test code = K) 4.8 mEq/L 3.4-5.0 N CHLORIDE (test code = CL) 103 mEq/L 100-108 N CARBON DIOXIDE (test code = CO2) 22 mEq/l 21-33 N ANION GAP (test code = GAP) 13 0-20 N GLUCOSE (test code = GLU) 468 mg/dL 70-110 HH Critical result called to MAY Jesus [id number] at 1850 07/21/21Nurse read back resut and tech confirmed it's correct? YES BLOOD UREA NITROGEN (test code = BUN) 30 mg/dL 7-18 H GLOMERULAR FILTRATION RATE (test code = GFR) 41.9 90-95 L Units of measure = ml/min/1.73 m2 CREATININE (test code = CREAT) 1.3 mg/dL 0.6-1.3 N CALCIUM (test code = CA) 7.8 mg/dL 8.0-10.5 L [id number] 18:50:00* Test Item Value Reference Range Interpretation Comme nts MAGNESIUM (test code = MAG) 1.79 mg/dL 1.80-2.40 L CBC W/AUTO [id number] 18:21:00* Test Item Value Reference Range Interpretation Comme nts WHITE BLOOD CELL (test code = WBC) 10.8 x10 3/uL 4.5-11.0 N RED BLOOD CELL (test code = RBC) 3.19 x10 6/uL 3.54-5.02 L HEMOGLOBIN (test code = HGB) 9.4 g/dL 11.0-15.0 L HEMATOCRIT (test code = HCT) 28.5 % 33.0-45.0 L MEAN CELL VOLUME (test code = MCV) 89.3 fL 81.0-99.0 N MEAN CELL HGB (test code = MCH) 29.5 pg 27.0-33.0 N MEAN CELL HGB CONCETRATION (test code = MCHC) 33.0 g/dL 33.0-37.0 N RED CELL DISTRIBUTION WIDTH CV (test code = RDW) 16.1 % 11.5-14.5 H RED CELL DISTRIBUTION WIDTH SD (test code = RDW-SD) 53.1 fL 37.0-54.0 N PLATELET COUNT (test code = PLT) 315 x10 3/uL 150-400 N MEAN PLATELET VOLUME (test c ode = MPV) 9.7 fL 7.0-9.0 H NEUTROPHIL % (test code = NT%) 83.8 % 56.0-77.0 H IMMATURE GRANULOCYTE % (test code = IG%) 1.2 % 0.0-2.0 N LYMPHOCYTE % (test code = LY%) 12.3 % 14.0-32.0 L MONOCYTE % (test code = MO%) 2.4 % 4.8-9.0 L EOSINOPHIL % (test code = EO%) 0.1 % 0.3-3.7 L BASOPHIL % (test code = BA%) 0.2 % 0.0-2.0 N NUCLEATED RBC % (test code = NRBC%) 0.0 % 0-0 N NEUTROPHIL # (test code = NT#) 9.01 x10 3/uL 2.0-7.6 H IMMATURE GRANULOCYTE # (test code = IG#) 0.13 x10 3/uL 0.00-0.03 H LYMPHOCYTE # (test code = LY#) 1.32 x10 3/uL 1.0-3.8 N MONOCYTE # (test code = MO#) 0.26 x10 3/uL 0.1-0.8 N EOSINOPHIL # (test code = EO#) 0.01 x10 3/uL 0.0-0.2 N BASOPHIL # (test code = BA#) 0.02 x10 3/uL 0.0-0.2 N NUCLEATED RBC # (test code = NRBC#) 0.00 x10 3/uL 0.0-0.1 N MANUAL DIFF REQUIRED (test c ode = MDIFF) NO GLUCOSE [id number] 16:11:00* Test Item Value Reference Range Interpretation Comme nts GLUCOSE BEDSIDE (test code = GLUBED) 363 MG/DL 70-110 H Performed by cer tified drum operator at [facility] [id number] 15:33:00* Test Item Value Reference Range Interpretation Comme nts ACT-ISTAT (test code = ACTI) 255 SEC 74-137 H Performed by [facility] tified drum operator at [facility] GLUCOSE [id number] 14:11:00* Test Item Value Reference Range Interpretation Comme nts GLUCOSE BEDSIDE (test code = GLUBED) 433 MG/DL 70-110 H Performed by [facility] tified drum operator at [facility] GLUCOSE [id number] 14:09:00* Test Item Value Reference Range Interpretation Comme nts GLUCOSE BEDSIDE (test code = GLUBED) 464 MG/DL 70-110 H Performed by [facility] tified drum operator at [facility] - DUP LE ART [id number] 00:00:00 [facility] : 1960 Sex: F Name: MARINA MARTINEZ [facility] : 1960 Age/S: 61 / F [address] [place] [address] BlvdUnit #: [id number] Loc: [place] [address] Phys: Inga Robertson MD Acct: [id number] Dis Date: Status: ADM IN PHONE #: [phone] Exam Date: 07/21/20211939 FAX #: [phone] Reason: HEMATOMA EXAMS: CPT CODE: [id number] DUP LE ART UNI/LTD 48768 PROCEDURE INFORMATION: Exam: US Duplex Left LowerExtremity Arteries Or Arterial Bypass Grafts Exam date and time: 07/21/2021 7:17 PM Age: 61 years old Clinical indication: Other: Lt groin bruising and swelling S/P heart cath; Additional info: Hematoma TECHNIQUE: Imaging protocol: Left Real-time duplex scan of the arteries or arterial bypass graftsof the left lower extremity with 2-D manzano scale, color Doppler flow and spectral waveform analysis.Images documented and saved. COMPARISON: No relevant prior [...] Call M.D. CC: Inga Robertson MD; Dany Guerrero Technologist: Saniya Barrett RDMS(AB)(OB) Trnscb Date/Time: 07/21/2021 (2020) [email or web address] Orig PrintD/T: S: 07/21/2021 (2020) Probe: PAGE 1 Signed ReportBASIC METABOLIC PANEL 2021-07-19 15:47:00* Test Item Value Reference Range Interpretation Comme nts SODIUM (test code = NA) 131 mEq/L 134-147 L POTASSIUM (test code = K) 4.7 mEq/L 3.4-5.0 N CHLORIDE (test code = CL) 95 mEq/L 100-108 L CARBON DIOXIDE (test code = CO2) 26 mEq/l 21-33 N ANION GAP (test code = GAP) 15 0-20 N GLUCOSE (test code = GLU) 657 mg/dL 70-110 HH Critical result called to Renee TYLERLAB.ATD at 1541 07/19/21Nurse read back resut and tech confirmed it's correct? YES BLOOD UREA NITROGEN (test code = BUN) 28 mg/dL 7-18 H GLOMERULAR FILTRATION RATE (test code = GFR) 30.8 90-95 L Units of measure = ml/min/1.73 m2 CREATININE (test code = CREAT) 1.7 mg/dL 0.6-1.3 H CALCIUM (test code = CA) 9.6 mg/dL 8.0-10.5 N CBC W/AUTO [id number] 15:41:00* Test Item Value Reference Range Interpretation Comme nts WHITE BLOOD CELL (test code = WBC) 9.7 x10 3/uL 4.5-11.0 N RED BLOOD CELL (test code = RBC) 4.00 x10 6/uL 3.54-5.02 N HEMOGLOBIN (test code = HGB) 11.6 g/dL 11.0-15.0 N HEMATOCRIT (test code = HCT) 36.6 % 33.0-45.0 N MEAN CELL VOLUME (test code = MCV) 91.5 fL 81.0-99.0 N MEAN CELL HGB (test code = MCH) 29.0 pg 27.0-33.0 N MEAN CELL HGB CONCETRATION (test code = MCHC) 31.7 g/dL 33.0-37.0 L RED CELL DISTRIBUTION WIDTH CV (test code = RDW) 16.4 % 11.5-14.5 H RED CELL DISTRIBUTION WIDTH SD (test code = RDW-SD) 55.6 fL 37.0-54.0 H PLATELET COUNT (test code = PLT) 368 x10 3/uL 150-400 N MEAN PLATELET VOLUME (test c ode = MPV) 9.9 fL 7.0-9.0 H NEUTROPHIL % (test code = NT%) 85.4 % 56.0-77.0 H IMMATURE GRANULOCYTE % (test code = IG%) 0.6 % 0.0-2.0 N LYMPHOCYTE % (test code = LY%) 9.1 % 14.0-32.0 L MONOCYTE % (test code = MO%) 4.6 % 4.8-9.0 L EOSINOPHIL % (test code = EO%) 0.0 % 0.3-3.7 L BASOPHIL % (test code = BA%) 0.3 % 0.0-2.0 N NUCLEATED RBC % (test code = NRBC%) 0.0 % 0-0 N NEUTROPHIL # (test code = NT#) 8.25 x10 3/uL 2.0-7.6 H IMMATURE GRANULOCYTE # (test code = IG#) 0.06 x10 3/uL 0.00-0.03 H LYMPHOCYTE # (test code = LY#) 0.88 x10 3/uL 1.0-3.8 L MONOCYTE # (test code = MO#) 0.44 x10 3/uL 0.1-0.8 N EOSINOPHIL # (test code = EO#) 0.00 x10 3/uL 0.0-0.2 N BASOPHIL # (test code = BA#) 0.03 x10 3/uL 0.0-0.2 N NUCLEATED RBC # (test code = NRBC#) 0.00 x10 3/uL 0.0-0.1 N MANUAL DIFF REQUIRED (test c ode = MDIFF) NO PROTHROMBIN [id number] 15:39:00* Test Item Value Reference Range Interpretation Comme nts PROTHROMBIN TIME PATIENT (test code = PTP) 11.0 SECONDS 9.3-12.9 N INTERNATIONAL NORMAL RATIO (test code = INR) 1.0 0.8-1.2 N TARGET INR BY INDICATION Indication INR1. Prophylaxis of venous thrombosis 2.0 - 3.0 (orthopedic surgery), Prophylaxis of venous thrombosis (other than high-risk surgery), Treatment of Deep Vein Thrombosis/Pulmonary Embolism, Prevention of systemic embolism - Tissue heart valves, Acute Myocardial Infarction (to prevent systemic embolism), Valvular heart disease, Atrial Fibrillation, Bileaflet mechanical valve in aortic position.2. Mechanical prosthetic valves (high risk), 2.5 - 3.5 Presence of Lupus Anticoagulant or Antiphospholipid Antibodies, Prevention of systemic embolism - Acute Myocardial Infarction (to prevent recurrent infarct). - XR CHEST 2 [id number] 00:00:00 [facility] : 1960 Sex: F FAX: Dany Dean MD [phone] [place]: St: PRE Name: MARINA MARTINEZ [facility] [place] : 1960 Age/S: 61/F [address] [place] [address] Unit #: [id number] Loc: [place] [address] Phys: Dany Mcdonald MD Acct: [id number] Dis Date: Status: PRE SDC PHONE #: [phone] Exam Date: 07/19/2021 1524 FAX #: [phone] Reason: PREOP EXAMS: CPT CODE: [id number] XR CHEST 2 V [id number] PROCEDURE INFORMATION: Exam: XR Chest Exam date and time: 07/19/2021 2:39 PM Age: 61 years old Clinical indication: Screening exam; Other screening; Additional info: Preop TECHNIQUE: Imaging protocol: XR of the chest. Views: 2 views. PA and Lateral COMPARISON: CR XR CHEST 1V 06/26/2021 6:09 AM FINDINGS: Lungs: The lungs are clear. Pleural spaces: No pleural effusion. No pneumothorax. Heart/Mediastinum: Cardiomediastinalsilhouette is normal as is the pulmonary vasculature. Coronary arterial stent. The tracheal air shadow is midline. Bones/joints: Paraspinous ossifications thoracic spine. No acute skeletal abnormality. IMPRESSION: No acute findings. at 5696 Reported and signed by: Geovanni Lacey M.D. CC: Dany Mcdonald MD Technologist: RT Acacia(R) Trnscrd Date/Time/By: 07/19/2021 (8684) : By: Kenneth Orig Print D/T: S: 07/19/2021 (7851) PAGE 1 Signed ReportHEMOGLOBIN [id number] 13:12:00* Test Item Value Reference Range Interpretation Comme [facility] HEMOGLOBIN PLASMA (test code = HGBP) 9.2 mg/dL 0.0-4.9 A Values obtain ed between 5-15 mg/dL should be interpretedwith caution since such variables as sub-optimalvenipuncture may increase results to this range.Performed At: [facility] [id number] Sanjai MD Ph:[phone] ARTERIAL BLOOD [id number] 15:17:00* Test Item Value Reference Range Interpretation Comme [facility] ARTERIAL BLOOD GAS PH (test code = PHA) TEST NOT PERFORMED 7.35-7.45 ARTERIAL BLOOD GAS PCO2 (test code = PCO2A) TEST NOT PERFORMED mmHg 35-45 ARTERIAL BLOOD GAS PO2 (test code = PO2A) TEST NOT PERFORMED mmHg 80-100 BICARBONATE TOTAL HCO3 (test code = HCO3) TEST NOT PERFORMED mmol/L 22.0-26.0 GLUCOSE [id number] 11:03:00* Test Item Value Reference Range Interpretation Comme [facility] GLUCOSE BEDSIDE (test code = GLUBED) 193 MG/DL 70-110 H Performed by cer tified drum operator at [facility] GLUCOSE [id number] 07:27:00* Test Item Value Reference Range Interpretation Comme [facility] GLUCOSE BEDSIDE (test code = GLUBED) 115 MG/DL 70-110 H Performed by cer tified drum operator at [facility] BASIC METABOLIC [id number] 04:17:00* Test Item Value Reference Range Interpretation Comme [facility] SODIUM (test code = NA) 137 mEq/L 134-147 N POTASSIUM (test code = K) 4.3 mEq/L 3.4-5.0 N CHLORIDE (test code = CL) 106 mEq/L 100-108 N CARBON DIOXIDE (test code = CO2) 24 mEq/l 21-33 N ANION GAP (test code = GAP) 11 0-20 N GLUCOSE (test code = GLU) 153 mg/dL 70-110 H BLOOD UREA NITROGEN (test code = BUN) 18 mg/dL 7-18 GLOMERULAR FILTRATION RATE (test code = GFR) 50.8 90-95 L Units of measure = ml/min/1.73 m2 CREATININE (test code = CREAT) 1.1 mg/dL 0.6-1.3 N CALCIUM (test code = CA) 8.4 mg/dL 8.0-10.5 N CBC W/AUTO [id number] 03:33:00* Test Item Value Reference Range Interpretation Comme nts WHITE BLOOD CELL (test code = WBC) 7.3 x10 3/uL 4.5-11.0 N RED BLOOD CELL (test code = RBC) 2.51 x10 6/uL 3.54-5.02 L HEMOGLOBIN (test code = HGB) 7.3 g/dL 11.0-15.0 L HEMATOCRIT (test code = HCT) 23.4 % 33.0-45.0 L MEAN CELL VOLUME (test code = MCV) 93.2 fL 81.0-99.0 N MEAN CELL HGB (test code = MCH) 29.1 pg 27.0-33.0 N MEAN CELL HGB CONCETRATION (test code = MCHC) 31.2 g/dL 33.0-37.0 L RED CELL DISTRIBUTION WIDTH CV (test code = RDW) 15.9 % 11.5-14.5 H RED CELL DISTRIBUTION WIDTH SD (test code = RDW-SD) 53.3 fL 37.0-54.0 N PLATELET COUNT (test code = PLT) 238 x10 3/uL 150-400 N MEAN PLATELET VOLUME (test c ode = MPV) 9.4 fL 7.0-9.0 H NEUTROPHIL % (test code = NT%) 63.2 % 56.0-77.0 N IMMATURE GRANULOCYTE % (test code = IG%) 1.0 % 0.0-2.0 N LYMPHOCYTE % (test code = LY%) 17.5 % 14.0-32.0 N MONOCYTE % (test code = MO%) 14.7 % 4.8-9.0 H EOSINOPHIL % (test code = EO%) 3.3 % 0.3-3.7 N BASOPHIL % (test code = BA%) 0.3 % 0.0-2.0 N NUCLEATED RBC % (test code = NRBC%) 0.0 % 0-0 N NEUTROPHIL # (test code = NT#) 4.62 x10 3/uL 2.0-7.6 N IMMATURE GRANULOCYTE # (test code = IG#) 0.07 x10 3/uL 0.00-0.03 H LYMPHOCYTE # (test code = LY#) 1.28 x10 3/uL 1.0-3.8 N MONOCYTE # (test code = MO#) 1.07 x10 3/uL 0.1-0.8 H EOSINOPHIL # (test code = EO#) 0.24 x10 3/uL 0.0-0.2 H BASOPHIL # (test code = BA#) 0.02 x10 3/uL 0.0-0.2 N NUCLEATED RBC # (test code = NRBC#) 0.00 x10 3/uL 0.0-0.1 N MANUAL DIFF REQUIRED (test c ode = MDIFF) NO COMMENTS: Daily while on HeparinGLUCOSE [id number] 20:07:00* Test Item Value Reference Range Interpretation Comme nts GLUCOSE BEDSIDE (test code = GLUBED) 186 MG/DL 70-110 H Performed by [facility] [employer] drum operator at [facility] GLUCOSE [id number] 17:05:00* Test Item Value Reference Range Interpretation Comme nts GLUCOSE BEDSIDE (test code = GLUBED) 161 MG/DL 70-110 H Performed by [employer] drum operator at [facility] GLUCOSE [id number] 11:53:00* Test Item Value Reference Range Interpretation Comme nts GLUCOSE BEDSIDE (test code = GLUBED) 173 MG/DL 70-110 H Performed by [employer] drum operator at [facility] GLUCOSE [id number] 08:14:00* Test Item Value Reference Range Interpretation Comme nts GLUCOSE BEDSIDE (test code = GLUBED) 117 MG/DL 70-110 H Performed by [employer] drum operator at [facility] BASIC METABOLIC [id number] 07:39:00* Test Item Value Reference Range Interpretation Comme nts SODIUM (test code = NA) 136 mEq/L 134-147 N POTASSIUM (test code = K) 4.2 mEq/L 3.4-5.0 N CHLORIDE (test code = CL) 104 mEq/L 100-108 N CARBON DIOXIDE (test code = CO2) 24 mEq/l 21-33 N ANION GAP (test code = GAP) 12 0-20 N GLUCOSE (test code = GLU) 119 mg/dL 70-110 H BLOOD UREA NITROGEN (test code = BUN) 12 mg/dL 7-18 N GLOMERULAR FILTRATION RATE (test code = GFR) 50.8 90-95 L Units of measure = ml/min/1.73 m2 CREATININE (test code = CREAT) 1.1 mg/dL 0.6-1.3 N CALCIUM (test code = CA) 8.9 mg/dL 8.0-10.5 N [id number] 07:39:00* Test Item Value Reference Range Interpretation Comme nts MAGNESIUM (test code = MAG) 1.79 mg/dL 1.80-2.40 L CBC W/AUTO [id number] 07:26:00* Test Item Value Reference Range Interpretation Comme nts WHITE BLOOD CELL (test code = WBC) 8.7 x10 3/uL 4.5-11.0 N RED BLOOD CELL (test code = RBC) 2.91 x10 6/uL 3.54-5.02 L HEMOGLOBIN (test code = HGB) 8.6 g/dL 11.0-15.0 L HEMATOCRIT (test code = HCT) 27.8 % 33.0-45.0 L MEAN CELL VOLUME (test code = MCV) 95.5 fL 81.0-99.0 MEAN CELL HGB (test code = MCH) 29.6 pg 27.0-33.0 N MEAN CELL HGB CONCETRATION (test code = MCHC) 30.9 g/dL 33.0-37.0 L RED CELL DISTRIBUTION WIDTH CV (test code = RDW) 15.9 % 11.5-14.5 H RED CELL DISTRIBUTION WIDTH SD (test code = RDW-SD) 54.7 fL 37.0-54.0 H PLATELET COUNT (test code = PLT) 228 x10 3/uL 150-400 N MEAN PLATELET VOLUME (test c ode = MPV) 9.8 fL 7.0-9.0 H NEUTROPHIL % (test code = NT%) 65.9 % 56.0-77.0 N IMMATURE GRANULOCYTE % (test code = IG%) 0.8 % 0.0-2.0 N LYMPHOCYTE % (test code = LY%) 16.1 % 14.0-32.0 N MONOCYTE % (test code = MO%) 13.3 % 4.8-9.0 H EOSINOPHIL % (test code = EO%) 3.6 % 0.3-3.7 N BASOPHIL % (test code = BA%) 0.3 % 0.0-2.0 N NUCLEATED RBC % (test code = NRBC%) 0.0 % 0-0 N NEUTROPHIL # (test code = NT#) 5.72 x10 3/uL 2.0-7.6 N IMMATURE GRANULOCYTE # (test code = IG#) 0.07 x10 3/uL 0.00-0.03 H LYMPHOCYTE # (test code = LY#) 1.40 x10 3/uL 1.0-3.8 N MONOCYTE # (test code = MO#) 1.16 x10 3/uL 0.1-0.8 H EOSINOPHIL # (test code = EO#) 0.31 x10 3/uL 0.0-0.2 H BASOPHIL # (test code = BA#) 0.03 x10 3/uL 0.0-0.2 N NUCLEATED RBC # (test code = NRBC#) 0.00 x10 3/uL 0.0-0.1 N MANUAL DIFF REQUIRED (test c ode = MDIFF) NO COMMENTS: Daily while on HeparinGLUCOSE [id number] 20:52:00* Test Item Value Reference Range Interpretation Comme [facility] GLUCOSE BEDSIDE (test code = GLUBED) 152 MG/DL 70-110 H Performed by cer tified drum operator at [facility] GLUCOSE [id number] 16:59:00* Test Item Value Reference Range Interpretation Comme nts GLUCOSE BEDSIDE (test code = GLUBED) 180 MG/DL 70-110 H Performed by cer tified drum operator at [facility] HEMOGLOBIN [id number] 13:10:00* Test Item Value Reference Range Interpretation [facility] HEM[facility] PLASMA (test code = HGBP) 4.0 mg/dL 0.0-4.9 Values obtain ed between 5-15 mg/dL should be interpretedwith caution since such variables as sub-optimalvenipuncture may increase results to this range.Performed At: [address] [id number] Aguilar MD Ph:[phone] HEMOGLOBIN [id number] 13:10:00* Test Item Value Reference Range Interpretation [facility] HEMOGLOBIN PLASMA (test code = HGBP) 21.8 mg/dL 0.0-4.9 A Results ketan ified by repeat testingValues obtained between 5-15 mg/dL should be interpretedwith caution since such variables as sub-optimalvenipuncture may increase results to this range.Performed At: Lab[address] [id number] Sanjai MD Ph:[phone] COMMENTS: Hemoglobin plasma nowGLUCOSE [id number] 11:52:00* Test Item Value Reference Range Interpretation Comme nts GLUCOSE BEDSIDE (test code = GLUBED) 157 MG/DL 70-110 H Performed by cer tified drum operator at [facility] GLUCOSE [id number] 08:01:00* Test Item Value Reference Range Interpretation Comme nts GLUCOSE BEDSIDE (test code = GLUBED) 168 MG/DL 70-110 H Performed by cer tified drum operator at [facility] BASIC METABOLIC [id number] 05:44:00* Test Item Value Reference Range Interpretation Comme nts SODIUM (test code = NA) 135 mEq/L 134-147 N POTASSIUM (test code = K) 4.1 mEq/L 3.4-5.0 N CHLORIDE (test code = CL) 105 mEq/L 100-108 N CARBON DIOXIDE (test code = CO2) 28 mEq/l 21-33 N ANION GAP (test code = GAP) 6 0-20 N GLUCOSE (test code = GLU) 157 mg/dL 70-110 H BLOOD UREA NITROGEN (test code = BUN) 10 mg/dL 7-18 N GLOMERULAR FILTRATION RATE (test code = GFR) 56.7 90-95 L Units of measure = ml/min/1.73 m2 CREATININE (test code = CREAT) 1.0 mg/dL 0.6-1.3 N CALCIUM (test code = CA) 8.6 mg/dL 8.0-10.5 N [id number] 05:44:00* Test Item Value Reference Range Interpretation Comme nts MAGNESIUM (test code = MAG) 1.81 mg/dL 1.80-2.40 N CBC W/AUTO [id number] 05:33:00* Test Item Value Reference Range Interpretation Comme nts WHITE BLOOD CELL (test code = WBC) 9.0 x10 3/uL 4.5-11.0 N RED BLOOD CELL (test code = RBC) 2.75 x10 6/uL 3.54-5.02 L HEMOGLOBIN (test code = HGB) 8.2 g/dL 11.0-15.0 L HEMATOCRIT (test code = HCT) 25.2 % 33.0-45.0 L MEAN CELL VOLUME (test code = MCV) 91.6 fL 81.0-99.0 N MEAN CELL HGB (test code = MCH) 29.8 pg 27.0-33.0 N MEAN CELL HGB CONCETRATION (test code = MCHC) 32.5 g/dL 33.0-37.0 L RED CELL DISTRIBUTION WIDTH CV (test code = RDW) 15.5 % 11.5-14.5 H RED CELL DISTRIBUTION WIDTH SD (test code = RDW-SD) 50.6 fL 37.0-54.0 N PLATELET COUNT (test code = PLT) 165 x10 3/uL 150-400 N MEAN PLATELET VOLUME (test c ode = MPV) 10.1 fL 7.0-9.0 H NEUTROPHIL % (test code = NT%) 77.4 % 56.0-77.0 H IMMATURE GRANULOCYTE % (test code = IG%) 0.4 % 0.0-2.0 N LYMPHOCYTE % (test code = LY%) 10.6 % 14.0-32.0 L MONOCYTE % (test code = MO%) 8.6 % 4.8-9.0 N EOSINOPHIL % (test code = EO%) 2.7 % 0.3-3.7 N BASOPHIL % (test code = BA%) 0.3 % 0.0-2.0 N NUCLEATED RBC % (test code = NRBC%) 0.0 % 0-0 N NEUTROPHIL # (test code = NT#) 6.99 x10 3/uL 2.0-7.6 N IMMATURE GRANULOCYTE # (test code = IG#) 0.04 x10 3/uL 0.00-0.03 H LYMPHOCYTE # (test code = LY#) 0.96 x10 3/uL 1.0-3.8 L MONOCYTE # (test code = MO#) 0.78 x10 3/uL 0.1-0.8 N EOSINOPHIL # (test code = EO#) 0.24 x10 3/uL 0.0-0.2 H BASOPHIL # (test code = BA#) 0.03 x10 3/uL 0.0-0.2 N NUCLEATED RBC # (test code = NRBC#) 0.00 x10 3/uL 0.0-0.1 N MANUAL DIFF REQUIRED (test c ode = MDIFF) NO COMMENTS: Hemoglobin plasma every am while on Impella support.GLUCOSE BEDSIDE 2021-06-27 19:35:00* Test Item Value Reference Range Interpretation [facility] GLUCOSE BEDSIDE (test code = GLUBED) 134 MG/DL 70-110 H Performed by cer tified drum operator at [facility] GLUCOSE [id number] 16:12:00* Test Item Value Reference Range Interpretation Comme nts GLUCOSE BEDSIDE (test code = GLUBED) 171 MG/DL 70-110 H Performed by cer tified drum operator at [facility] HGB [id number] 15:52:00* Test Item Value Reference Range Interpretation Comme nts HEMOGLOBIN (test code = HGB) 7.9 g/dL 11.0-15.0 L HEMATOCRIT (test code = HCT) 24.3 % 33.0-45.0 L POC ARTERIAL BLOOD [id number] 14:58:00* Test Item Value Reference Range Interpretation Comme nts POC ARTERIAL BLOOD GAS PH (t est code = POCPHA) 7.524 7.35-7.45 HH POC ARTERIAL BLOOD GAS PCO2 (test code = JJOLUJ3D) 34.0 mmHg 35.0-45 L POC TCO2 ARTERIAL (test code = POCTCO2) 29.1 POC ARTERIAL BLOOD GAS PO2 ( test code = ADGIY3I) 78.6 mmHg 80-100.0 L POC HCO3 ARTERIAL (test code = WYHGCR5T) 28.1 MMOL/L 22.0-26.0 HH POC BASE EXCESS (test code = POCBEA) 5.3 MMOL/L -4.0-4.0 H POC O2 SATURATION (test code = POCO2S) 96.9 % 90-100 N FIO2 (test code = FIO2A) 21 % PaO2/FiO2 (test code = RAQ6BGE5) 374.28 mm/Hg ABG SITE (test code = SITEA) L Radial NEREYDA'S TEST (test code = ALLENS) Positive BASIC METABOLIC [id number] 14:58:00* Test Item Value Reference Range Interpretation Comme nts SODIUM (test code = NA/ABG) 134 MEQ/L 134-147 N POTASSIUM (test code = K/ABG) 3.9 MEQ/L 3.4-5.0 N CHLORIDE (test code = CL/ABG) 95 MEQ/L 100-108 L CREATININE ABG (test code = CREAABG) 1.0 mg/dL 0.6-1.0 N POC IONIZED CALCIUM (test co de = POCCA) 1.10 MMOL/L 1.12-1.32 L POC GLUCOSE (test code = POCGLU) 209 MG/DL HEMOGLOBIN [id number] 14:58:00* Test Item Value Reference Range Interpretation Comme nts HEMOGLOBIN ABG (test code = HGB/ABG) 6.4 G/DL 11.0-15.0 L [id number] 14:58:00* Test Item Value Reference Range Interpretation Comme nts HEMATOCRIT (test code = HCT/ABG) 19 % 33.0-45.0 L POC LACTIC [id number] 14:58:00* Test Item Value Reference Range Interpretation [facility] POC LACTIC ACID (test code = POCLAC) 0.9 mmol/l 0.9-1.7 N GLUCOSE [id number] 11:20:00* Test Item Value Reference Range Interpretation Com[facility] GLUCOSE BEDSIDE (test code = GLUBED) 182 MG/DL 70-110 H Performed by cer Trivopied drum operator at [facility] GLUCOSE [id number] 07:22:00* Test Item Value Reference Range Interpretation Com[facility] GLUCOSE BEDSIDE (test code = GLUBED) 97 MG/DL 70-110 N Performed by [employer] drum operator at [facility] COMPREHENSIVE METABOLIC [id number] 05:51:00* Test Item Value Reference Range Interpretation Comme nts SODIUM (test code = NA) 139 mEq/L 134-147 N POTASSIUM (test code = K) 3.6 mEq/L 3.4-5.0 N CHLORIDE (test code = CL) 106 mEq/L 100-108 N CARBON DIOXIDE (test code = CO2) 32 mEq/l 21-33 N ANION GAP (test code = GAP) 5 0-20 N GLUCOSE (test code = GLU) 109 mg/dL 70-110 BLOOD UREA NITROGEN (test code = BUN) 10 mg/dL 7-18 GLOMERULAR FILTRATION RATE (test code = GFR) 73.4 90-95 L Units of measure = ml/min/1.73 m2 CREATININE (test code = CREAT) 0.8 mg/dL 0.6-1.3 TOTAL PROTEIN (test code = PROT) 5.1 g/dL 6.4-8.2 L ALBUMIN (test code = ALB) 2.70 g/dL 3.4-5.0 L CALCIUM (test code = CA) 7.6 mg/dL 8.0-10.5 L BILIRUBIN TOTAL (test code = BILT) 0.60 mg/dL 0.0-1.0 SGOT/AST (test code = AST) 29 IUnit/L 15-37 SGPT/ALT (test code = ALT) 13 IUnit/L 30-65 L ALKALINE PHOSPHATASE TOTAL (test code = ALKP) 59 IUnit/L 20-125 N [id number] 05:51:00* Test Item Value Reference Range Interpretation Comme nts MAGNESIUM (test code = MAG) 1.72 mg/dL 1.80-2.40 L CBC W/AUTO [id number] 05:42:00* Test Item Value Reference Range Interpretation Comme nts WHITE BLOOD CELL (test code = WBC) 8.7 x10 3/uL 4.5-11.0 N RED BLOOD CELL (test code = RBC) 2.61 x10 6/uL 3.54-5.02 L HEMOGLOBIN (test code = HGB) 7.6 g/dL 11.0-15.0 L HEMATOCRIT (test code = HCT) 23.7 % 33.0-45.0 L MEAN CELL VOLUME (test code = MCV) 90.8 fL 81.0-99.0 N MEAN CELL HGB (test code = MCH) 29.1 pg 27.0-33.0 N MEAN CELL HGB CONCETRATION (test code = MCHC) 32.1 g/dL 33.0-37.0 L RED CELL DISTRIBUTION WIDTH CV (test code = RDW) 15.2 % 11.5-14.5 H RED CELL DISTRIBUTION WIDTH SD (test code = RDW-SD) 50.4 fL 37.0-54.0 N PLATELET COUNT (test code = PLT) 130 x10 3/uL 150-400 L MEAN PLATELET VOLUME (test c ode = MPV) 9.2 fL 7.0-9.0 H NEUTROPHIL % (test code = NT%) 73.1 % 56.0-77.0 N IMMATURE GRANULOCYTE % (test code = IG%) 0.6 % 0.0-2.0 N LYMPHOCYTE % (test code = LY%) 13.7 % 14.0-32.0 L MONOCYTE % (test code = MO%) 9.1 % 4.8-9.0 H EOSINOPHIL % (test code = EO%) 3.2 % 0.3-3.7 N BASOPHIL % (test code = BA%) 0.3 % 0.0-2.0 N NUCLEATED RBC % (test code = NRBC%) 0.0 % 0-0 N NEUTROPHIL # (test code = NT#) 6.33 x10 3/uL 2.0-7.6 N IMMATURE GRANULOCYTE # (test code = IG#) 0.05 x10 3/uL 0.00-0.03 H LYMPHOCYTE # (test code = LY#) 1.19 x10 3/uL 1.0-3.8 N MONOCYTE # (test code = MO#) 0.79 x10 3/uL 0.1-0.8 N EOSINOPHIL # (test code = EO#) 0.28 x10 3/uL 0.0-0.2 H BASOPHIL # (test code = BA#) 0.03 x10 3/uL 0.0-0.2 N NUCLEATED RBC # (test code = NRBC#) 0.00 x10 3/uL 0.0-0.1 N MANUAL DIFF REQUIRED (test c ode = MDIFF) NO COMMENTS: Hemoglobin plasma every am while on Impella support.COMMENTS: Daily while on HeparinGLUCOSE [id number] 20:19:00* Test Item Value Reference Range Interpretation Comme nts GLUCOSE BEDSIDE (test code = GLUBED) 173 MG/DL 70-110 H Performed by cer tified drum operator at [facility] GLUCOSE [id number] 18:00:00* Test Item Value Reference Range Interpretation Comme nts GLUCOSE BEDSIDE (test code = GLUBED) 216 MG/DL 70-110 H Performed by cer tified drum operator at [facility] GLUCOSE [id number] 12:46:00* Test Item Value Reference Range Interpretation Comme nts GLUCOSE BEDSIDE (test code = GLUBED) 139 MG/DL 70-110 H Performed by cer tified drum operator at [facility] GLUCOSE [id number] 08:22:00* Test Item Value Reference Range Interpretation Com[facility] GLUCOSE BEDSIDE (test code = GLUBED) 126 MG/DL 70-110 H Performed by cer tified drum operator at [facility] BASIC METABOLIC [id number] 05:13:00* Test Item Value Reference Range Interpretation Comme nts SODIUM (test code = NA) 142 mEq/L 134-147 N POTASSIUM (test code = K) 3.7 mEq/L 3.4-5.0 CHLORIDE (test code = CL) 109 mEq/L 100-108 H CARBON DIOXIDE (test code = CO2) 28 mEq/l 21-33 ANION GAP (test code = GAP) 9 0-20 N GLUCOSE (test code = GLU) 154 mg/dL 70-110 H BLOOD UREA NITROGEN (test code = BUN) 17 mg/dL 7-18 N GLOMERULAR FILTRATION RATE (test code = GFR) 50.8 90-95 L Units of measure = ml/min/1.73 m2 CREATININE (test code = CREAT) 1.1 mg/dL 0.6-1.3 N CALCIUM (test code = CA) 7.7 mg/dL 8.0-10.5 L [id number] 05:13:00* Test Item Value Reference Range Interpretation Com[facility] MAGNESIUM (test code = MAG) 1.68 mg/dL 1.80-2.40 L B-TYPE NATRIURETIC [id number] 05:12:00* Test Item Value Reference Range Interpretation Comme [facility] B-TYPE NATRIURETIC PEPTIDE ( test code = BNP) 223.0 PG/ML 0-100 H CBC W/AUTO [id number] 05:08:00* Test Item Value Reference Range Interpretation Comme nts WHITE BLOOD CELL (test code = WBC) 9.2 x10 3/uL 4.5-11.0 N RED BLOOD CELL (test code = RBC) 2.29 x10 6/uL 3.54-5.02 L HEMOGLOBIN (test code = HGB) 6.7 g/dL 11.0-15.0 L HEMATOCRIT (test code = HCT) 20.9 % 33.0-45.0 L MEAN CELL VOLUME (test code = MCV) 91.3 fL 81.0-99.0 N MEAN CELL HGB (test code = MCH) 29.3 pg 27.0-33.0 N MEAN CELL HGB CONCETRATION (test code = MCHC) 32.1 g/dL 33.0-37.0 L RED CELL DISTRIBUTION WIDTH CV (test code = RDW) 16.0 % 11.5-14.5 H RED CELL DISTRIBUTION WIDTH SD (test code = RDW-SD) 53.2 fL 37.0-54.0 N PLATELET COUNT (test code = PLT) 121 x10 3/uL 150-400 L MEAN PLATELET VOLUME (test c ode = MPV) 9.2 fL 7.0-9.0 H NEUTROPHIL % (test code = NT%) 76.2 % 56.0-77.0 N IMMATURE GRANULOCYTE % (test code = IG%) 0.5 % 0.0-2.0 N LYMPHOCYTE % (test code = LY%) 10.3 % 14.0-32.0 L MONOCYTE % (test code = MO%) 11.3 % 4.8-9.0 H EOSINOPHIL % (test code = EO%) 1.6 % 0.3-3.7 N BASOPHIL % (test code = BA%) 0.1 % 0.0-2.0 N NUCLEATED RBC % (test code = NRBC%) 0.0 % 0-0 N NEUTROPHIL # (test code = NT#) 6.99 x10 3/uL 2.0-7.6 N IMMATURE GRANULOCYTE # (test code = IG#) 0.05 x10 3/uL 0.00-0.03 H LYMPHOCYTE # (test code = LY#) 0.95 x10 3/uL 1.0-3.8 L MONOCYTE # (test code = MO#) 1.04 x10 3/uL 0.1-0.8 H EOSINOPHIL # (test code = EO#) 0.15 x10 3/uL 0.0-0.2 N BASOPHIL # (test code = BA#) 0.01 x10 3/uL 0.0-0.2 N NUCLEATED RBC # (test code = NRBC#) 0.00 x10 3/uL 0.0-0.1 N MANUAL DIFF REQUIRED (test c ode = MDIFF) NO COMMENTS: Hemoglobin plasma every am while on Impella support.COMMENTS: Daily while on Heparin- DUP UE ART [id number] 00:00:00 [facility] ANALIA COLCHESTERName: MARINA MARTINEZ : 1960 Sex: F Name: MARINA MARTINEZ [facility] [place] : 1960 Age/S: 61 / F [address] [place] [address] Bl Unit #: [id number] Loc: [place] [address] Phys: Loly Agee MAIL HANDLER ASSISTANT Acct: [id number] Dis Date: Status: ADM IN PHONE #: [phone] Exam Date: 06/26/2021 0951 FAX #: [phone] Reason: S/P IMPELLA REMOVAL/RULE OUT HEMATOMA EXAMS: CPT CODE: [id number] DUP E ART UNI/LTD 73800 PROCEDURE INFORM ATION: Exam: US Duplex Right Lower Extremity Arteries Or Arterial Bypass Grafts Exam date and time:06/26/2021 9:31 AM Age: 61 years old Clinical indication: Pain; Leg, upper; Right; Additional info: S/P impella removal/rule out hematoma TECHNIQUE: Imaging protocol: Right Real-time duplex scan of the arteries or arterial bypass grafts of the right lower extremity with 2-D manzano scale, color Doppler flow and spectral waveform analysis. Images documented and saved. COMPARISON: No relevant prior studies available. FINDINGS: Mild soft tissue edema in the right groin without soft tissue hematoma. Patent right common femoral/superficial femoral arteries with normal waveforms. No pseudoaneurysm. Patent right common femoral vein and visualized proximal femoral vein. IMPRESSION: 1. Mild soft tissueedema in the right groin without soft tissue hematoma. 2. Patent right groin arterial and venous circulation without pseudoaneurysm or fistula. at 1013 Reported and signed by: Yonatan Webb M.D. CC: Alejandra Zeng MD; Loly Agee MAIL HANDLER ASSISTANT; Dany Mcdonald MD Technologist: Monalisa Carter RDMS(Reggie)(BR) Trnscb Date/Time: 06/26/2021 (1012) [email or web address] Orig Print D/T: S: 06/26/2021 (1012) Probe: PAGE 1 Signed Report- XR CHEST 1 [id number] 00:00:00 [facility] JUAN MARINA RUBIN : 1960 Sex: F FAX: Alejandra Fraga MD [phone] [place]: St: [facility] FAX: Zoraida Felder [phone] FAX: Dany Dean MD [phone] Name: MARINA MARTINEZ [facility] : 1960 Age/S: 61/F [address] [place] [address] Unit #: [id number] [facility] [place] [address] Phys: Zoraida Felder TRISTON Acct: [id number] Dis Date: Status: ADM IN PHONE #: [phone] Exam Date: 06/26/2021 0611 FAX #: [phone] Reason: fluid overload EXAMS: CPT CODE: [id number] XR CHEST 1 V 13411 PROCEDURE INFORMATION: Exam: XR Chest Exam date and time: 06/26/2021 6:09 AM Age: 61 years old Clinical indication: Other: Fluid overload TECHNIQUE: Imaging protocol: XR of the chest. Views: 1 view. COMPARISON: DX XR CHEST 2 V 05/10/2021 2:38 PM FINDINGS: Lungs: No obvious infiltrates or consolidations. Pleural spaces: Unremarkable. No pleural effusion. No pneumothorax. Heart/Mediastinum: Cardiomegaly. Bones/joints: Thora cic spurring. IMPRESSION: No obvious infiltrates or consolidations. at 0751 Reported and signed by: Momo Weiner M.D. CC: Alejandra Zeng MD; Zoraida Felder; Dany Mcdonald MD Technologist: Rona Banuelos, RT(R); Nancy Melton RT(R) Trnscrd Date/Time/By: 06/26/2021 (075) : By: [id number] Orig Print D/T: S: 06/26/2021 (075) PAGE 1 Signed ReportGLUCOSE [id number] 20:45:00* Test Item Value Reference Range Interpretation Comme nts GLUCOSE BEDSIDE (test code = GLUBED) 109 MG/DL 70-110 N Performed by [employer] drum operator at [facility] GLUCOSE [id number] 17:17:00* Test Item Value Reference Range Interpretation Comme nts GLUCOSE BEDSIDE (test code = GLUBED) 188 MG/DL 70-110 H Performed by [employer] drum operator at [facility] HGB [id number] 17:07:00* Test Item Value Reference Range Interpretation Comme nts HEMOGLOBIN (test code = HGB) 7.3 g/dL 11.0-15.0 L HEMATOCRIT (test code = HCT) 22.9 % 33.0-45.0 L GLUCOSE [id number] 12:04:00* Test Item Value Reference Range Interpretation Comme nts GLUCOSE BEDSIDE (test code = GLUBED) 265 MG/DL 70-110 H Performed by cer tified drum operator at [facility] GLUCOSE [id number] 07:41:00* Test Item Value Reference Range Interpretation Comme nts GLUCOSE BEDSIDE (test code = GLUBED) 288 MG/DL 70-110 H Performed by cer tified drum operator at [facility] [id number] 04:51:00* Test Item Value Reference Range Interpretation Comme nts MAGNESIUM (test code = MAG) 2.48 mg/dL 1.80-2.40 H CALCIUM [id number] 04:51:00* Test Item Value Reference Range Interpretation Comme nts CALCIUM IONIZED (test code = RYLEE) 1.01 MMOL/L 1.12-1.32 L CBC W/AUTO [id number] 04:33:00* Test Item Value Reference Range Interpretation Comme nts WHITE BLOOD CELL (test code = WBC) 12.4 x10 3/uL 4.5-11.0 H RED BLOOD CELL (test code = RBC) 2.66 x10 6/uL 3.54-5.02 L HEMOGLOBIN (test code = HGB) 7.8 g/dL 11.0-15.0 L HEMATOCRIT (test code = HCT) 24.8 % 33.0-45.0 L MEAN CELL VOLUME (test code = MCV) 93.2 fL 81.0-99.0 N MEAN CELL HGB (test code = MCH) 29.3 pg 27.0-33.0 N MEAN CELL HGB CONCETRATION (test code = MCHC) 31.5 g/dL 33.0-37.0 L RED CELL DISTRIBUTION WIDTH CV (test code = RDW) 15.9 % 11.5-14.5 H RED CELL DISTRIBUTION WIDTH SD (test code = RDW-SD) 54.5 fL 37.0-54.0 H PLATELET COUNT (test code = PLT) 133 x10 3/uL 150-400 L MEAN PLATELET VOLUME (test code = MPV) 9.7 fL 7.0-9.0 H NEUTROPHIL % (test code = NT%) 90.8 % 56.0-77.0 H IMMATURE GRANULOCYTE % (test code = IG%) 0.3 % 0.0-2.0 N LYMPHOCYTE % (test code = LY%) 2.4 % 14.0-32.0 L MONOCYTE % (test code = MO%) 6.5 % 4.8-9.0 N EOSINOPHIL % (test code = EO%) 0.0 % 0.3-3.7 L BASOPHIL % (test code = BA%) 0.0 % 0.0-2.0 N NUCLEATED RBC % (test code = NRBC%) 0.0 % 0-0 N NEUTROPHIL # (test code = NT#) 11.23 x10 3/uL 2.0-7.6 H IMMATURE GRANULOCYTE # (test code = IG#) 0.04 x10 3/uL 0.00-0.03 H LYMPHOCYTE # (test code = LY#) 0.30 x10 3/uL 1.0-3.8 L MONOCYTE # (test code = MO#) 0.80 x10 3/uL 0.1-0.8 N EOSINOPHIL # (test code = EO#) 0.00 x10 3/uL 0.0-0.2 N BASOPHIL # (test code = BA#) 0.00 x10 3/uL 0.0-0.2 N NUCLEATED RBC # (test code = NRBC#) 0.00 x10 3/uL 0.0-0.1 N MANUAL DIFF REQUIRED (test code = MDIFF) NO COMMENTS: Hemoglobin plasma every am while on Impella support.COMMENTS: To be done morning of HeartCathBASIC METABOLIC [id number] 04:10:00* Test Item Value Reference Range Interpretation Comme nts SODIUM (test code = NA) 140 mEq/L 134-147 N POTASSIUM (test code = K) 4.9 mEq/L 3.4-5.0 N CHLORIDE (test code = CL) 115 mEq/L 100-108 H CARBON DIOXIDE (test code = CO2) 21 mEq/l 21-33 N ANION GAP (test code = GAP) 9 0-20 N GLUCOSE (test code = GLU) 339 mg/dL 70-110 H BLOOD UREA NITROGEN (test code = BUN) 16 mg/dL 7-18 N GLOMERULAR FILTRATION RATE (test code = GFR) 46.0 90-95 L Units of measure = ml/min/1.73 m2 CREATININE (test code = CREAT) 1.2 mg/dL 0.6-1.3 N CALCIUM (test code = CA) 7.1 mg/dL 8.0-10.5 L COMMENTS: To be done morning of Heart CathLACTIC ACID 2ND [id number] 04:09:00* Test Item Value Reference Range Interpretation Comme nts LACTIC ACID 2ND REPEAT (test code = LACT2) 2.0 mmol/L 0.4-1.9 H ABOUT TO DRAW REPEATBASIC METABOLIC [id number] 01:02:00* Test Item Value Reference Range Interpretation Comme nts SODIUM (test code = NA) 139 mEq/L 134-147 N POTASSIUM (test code = K) 4.4 mEq/L 3.4-5.0 N CHLORIDE (test code = CL) 114 mEq/L 100-108 H CARBON DIOXIDE (test code = CO2) 19 mEq/l 21-33 L ANION GAP (test code = GAP) 11 0-20 N GLUCOSE (test code = GLU) 425 mg/dL 70-110 H BLOOD UREA NITROGEN (test code = BUN) 13 mg/dL 7-18 N GLOMERULAR FILTRATION RATE (test code = GFR) 46.0 90-95 L Units of measure = ml/min/1.73 m2 CREATININE (test code = CREAT) 1.2 mg/dL 0.6-1.3 N CALCIUM (test code = CA) 6.7 mg/dL 8.0-10.5 L LACTIC ACID [id number] 00:57:00* Test Item Value Reference Range Interpretation Comme nts LACTIC ACID REPEAT (test cod e = LACTR) 3.0 mmol/l 0.4-1.9 H COMPREHENSIVE METABOLIC [id number] 21:11:00* Test Item Value Reference Range Interpretation Comme nts SODIUM (test code = NA) 140 mEq/L 134-147 N POTASSIUM (test code = K) 5.5 mEq/L 3.4-5.0 H SPECIMEN 1+ HEMOLYZED.Results known to be adversely affected by hemolysis are: Potassium Magnesium LDH Phosphorus CHLORIDE (test code = CL) 115 mEq/L 100-108 H CARBON DIOXIDE (test code = CO2) 20 mEq/l 21-33 L ANION GAP (test code = GAP) 11 0-20 N GLUCOSE (test code = GLU) 312 mg/dL 70-110 H BLOOD UREA NITROGEN (test code = BUN) 14 mg/dL 7-18 GLOMERULAR FILTRATION RATE (test code = GFR) 46.0 90-95 L Units of measure = ml/min/1.73 m2 CREATININE (test code = CREAT) 1.2 mg/dL 0.6-1.3 N TOTAL PROTEIN (test code = PROT) 5.0 g/dL 6.4-8.2 L ALBUMIN (test code = ALB) 2.80 g/dL 3.4-5.0 L CALCIUM (test code = CA) 6.5 mg/dL 8.0-10.5 L BILIRUBIN TOTAL (test code = BILT) 0.30 mg/dL 0.0-1.0 N SGOT/AST (test code = AST) 78 IUnit/L 15-37 H SGPT/ALT (test code = ALT) 18 IUnit/L 30-65 L ALKALINE PHOSPHATASE TOTAL (test code = ALKP) 55 IUnit/L 20-125 N [id number] 21:11:00* Test Item Value Reference Range Interpretation Comme nts PHOSPHOROUS (test code = PHOS) 3.5 MG/DL 2.5-4.9 N [id number] 21:11:00* Test Item Value Reference Range Interpretation Comme nts MAGNESIUM (test code = MAG) 1.99 mg/dL 1.80-2.40 N CALCIUM [id number] 21:11:00* Test Item Value Reference Range Interpretation Comme nts CALCIUM IONIZED (test code = RYLEE) 0.89 MMOL/L 1.12-1.32 L LACTIC [id number] 21:05:00* Test Item Value Reference Range Interpretation Comme nts LACTIC ACID (test code = LACT) 2.2 mmol/L 0.4-1.9 H CBC W/AUTO [id number] 21:02:00* Test Item Value Reference Range Interpretation Comme nts WHITE BLOOD CELL (test code = WBC) 24.2 x10 3/uL 4.5-11.0 H RED BLOOD CELL (test code = RBC) 3.15 x10 6/uL 3.54-5.02 L HEMOGLOBIN (test code = HGB) 9.2 g/dL 11.0-15.0 L HEMATOCRIT (test code = HCT) 29.5 % 33.0-45.0 L MEAN CELL VOLUME (test code = MCV) 93.7 fL 81.0-99.0 N MEAN CELL HGB (test code = MCH) 29.2 pg 27.0-33.0 N MEAN CELL HGB CONCETRATION (test code = MCHC) 31.2 g/dL 33.0-37.0 L RED CELL DISTRIBUTION WIDTH CV (test code = RDW) 16.0 % 11.5-14.5 H RED CELL DISTRIBUTION WIDTH SD (test code = RDW-SD) 54.8 fL 37.0-54.0 H PLATELET COUNT (test code = PLT) 239 x10 3/uL 150-400 N MEAN PLATELET VOLUME (test code = MPV) 9.6 fL 7.0-9.0 H NEUTROPHIL % (test code = NT%) 93.6 % 56.0-77.0 H IMMATURE GRANULOCYTE % (test code = IG%) 0.6 % 0.0-2.0 N LYMPHOCYTE % (test code = LY%) 1.4 % 14.0-32.0 L MONOCYTE % (test code = MO%) 4.3 % 4.8-9.0 L EOSINOPHIL % (test code = EO%) 0.0 % 0.3-3.7 L BASOPHIL % (test code = BA%) 0.1 % 0.0-2.0 N NUCLEATED RBC % (test code = NRBC%) 0.0 % 0-0 N NEUTROPHIL # (test code = NT#) 22.66 x10 3/uL 2.0-7.6 H IMMATURE GRANULOCYTE # (test code = IG#) 0.15 x10 3/uL 0.00-0.03 H LYMPHOCYTE # (test code = LY#) 0.33 x10 3/uL 1.0-3.8 L MONOCYTE # (test code = MO#) 1.05 x10 3/uL 0.1-0.8 H EOSINOPHIL # (test code = EO#) 0.00 x10 3/uL 0.0-0.2 N BASOPHIL # (test code = BA#) 0.03 x10 3/uL 0.0-0.2 N NUCLEATED RBC # (test code = NRBC#) 0.00 x10 3/uL 0.0-0.1 N MANUAL DIFF REQUIRED (test code = MDIFF) NO GLUCOSE [id number] 20:14:00* Test Item Value Reference Range Interpretation Comme nts GLUCOSE BEDSIDE (test code = GLUBED) 301 MG/DL 70-110 H Performed by cer kirstie drum operator at [facility] POC ARTERIAL BLOOD [id number] 16:54:00* Test Item Value Reference Range Interpretation Comme nts POC ARTERIAL BLOOD GAS PH (t est code = POCPHA) 7.268 7.35-7.45 LL POC ARTERIAL BLOOD GAS PCO2 (test code = [id number]) 46.0 mmHg 35.0-45 H POC TCO2 ARTERIAL (test code = POCTCO2) 22.4 POC ARTERIAL BLOOD GAS PO2 ( test code = KZBBE0J) 247.9 mmHg 80-100.0 HH POC HCO3 ARTERIAL (test code = [id number]) 21.0 MMOL/L 22.0-26.0 L POC BASE EXCESS (test code = POCBEA) -5.9 MMOL/L -4.0-4.0 L POC O2 SATURATION (test code = POCO2S) 99.8 % 90-100 N ABG SITE (test code = SITEA) [place] BASIC METABOLIC [id number] 16:54:00* Test Item Value Reference Range Interpretation Comme nts SODIUM (test code = NA/ABG) 139 MEQ/L 134-147 N POTASSIUM (test code = K/ABG) 3.5 MEQ/L 3.4-5.0 N CHLORIDE (test code = CL/ABG) 100 MEQ/L 100-108 N CREATININE ABG (test code = CREAABG) 1.2 mg/dL 0.6-1.0 H POC IONIZED CALCIUM (test co de = POCCA) 1.09 MMOL/L 1.12-1.32 L POC GLUCOSE (test code = POCGLU) 295 MG/DL HEMOGLOBIN [id number] 16:54:00* Test Item Value Reference Range Interpretation Comme nts HEMOGLOBIN ABG (test code = HGB/ABG) 7.0 G/DL 11.0-15.0 L [id number] 16:54:00* Test Item Value Reference Range Interpretation Comme nts HEMATOCRIT (test code = HCT/ABG) 21 % 33.0-45.0 L POC LACTIC [id number] 16:54:00* Test Item Value Reference Range Interpretation Comme nts POC LACTIC ACID (test code = POCLAC) 6.5 mmol/l 0.9-1.7 HH [id number] 16:49:00* Test Item Value Reference Range Interpretation [facility] ACT-[facility]AT (test code = ACTI) 136 SEC 74-137 N Performed by cer tified drum operator at [facility] THROMBOPLASTIN TIME [id number] 13:10:00* Test Item Value Reference Range Interpretation Com[facility] THROMBOPLASTIN TIME PARTIAL (test code = PTT) 96.3 Seconds 25.0-39.5 H Therapeutic Rang e: 50.4 - 88.3 Seconds Effective 06/26/2018 CBC W/O [id number] 13:01:00* Test Item Value Reference Range Interpretation Comme nts WHITE BLOOD CELL (test code = WBC) 14.0 x10 3/uL 4.5-11.0 H RED BLOOD CELL (test code = RBC) 3.35 x10 6/uL 3.54-5.02 L HEMOGLOBIN (test code = HGB) 9.6 g/dL 11.0-15.0 L HEMATOCRIT (test code = HCT) 30.9 % 33.0-45.0 L MEAN CELL VOLUME (test code = MCV) 92.2 fL 81.0-99.0 N MEAN CELL HGB (test code = MCH) 28.7 pg 27.0-33.0 N MEAN CELL HGB CONCETRATION (test code = MCHC) 31.1 g/dL 33.0-37.0 L RED CELL DISTRIBUTION WIDTH CV (test code = RDW) 16.0 % 11.5-14.5 H RED CELL DISTRIBUTION WIDTH SD (test code = RDW-SD) 53.7 fL 37.0-54.0 N PLATELET COUNT (test code = PLT) 194 x10 3/uL 150-400 N MEAN PLATELET VOLUME (test c ode = MPV) 9.5 fL 7.0-9.0 H GLUCOSE [id number] 11:31:00* Test Item Value Reference Range Interpretation Comme [facility] GLUCOSE BEDSIDE (test code = GLUBED) 165 MG/DL 70-110 H Performed by cer tified drum operator at [facility] THROMBOPLASTIN TIME [id number] 10:57:00* Test Item Value Reference Range Interpretation Comme nts THROMBOPLASTIN TIME PARTIAL (test code = PTT) 93.7 Seconds 25.0-39.5 H Therapeutic Rang e: 50.4 - 88.3 Seconds Effective 06/26/2018 CBC W/AUTO [id number] 10:48:00* Test Item Value Reference Range Interpretation Comme nts WHITE BLOOD CELL (test code = WBC) 12.5 x10 3/uL 4.5-11.0 H RED BLOOD CELL (test code = RBC) 3.30 x10 6/uL 3.54-5.02 L HEMOGLOBIN (test code = HGB) 9.3 g/dL 11.0-15.0 L HEMATOCRIT (test code = HCT) 29.5 % 33.0-45.0 L MEAN CELL VOLUME (test code = MCV) 89.4 fL 81.0-99.0 N MEAN CELL HGB (test code = MCH) 28.2 pg 27.0-33.0 N MEAN CELL HGB CONCETRATION (test code = MCHC) 31.5 g/dL 33.0-37.0 L RED CELL DISTRIBUTION WIDTH CV (test code = RDW) 15.9 % 11.5-14.5 H RED CELL DISTRIBUTION WIDTH SD (test code = RDW-SD) 51.5 fL 37.0-54.0 N PLATELET COUNT (test code = PLT) 213 x10 3/uL 150-400 N MEAN PLATELET VOLUME (test code = MPV) 9.3 fL 7.0-9.0 H NEUTROPHIL % (test code = NT%) 81.6 % 56.0-77.0 H IMMATURE GRANULOCYTE % (test code = IG%) 0.5 % 0.0-2.0 N LYMPHOCYTE % (test code = LY%) 10.2 % 14.0-32.0 L MONOCYTE % (test code = MO%) 7.6 % 4.8-9.0 N EOSINOPHIL % (test code = EO%) 0.0 % 0.3-3.7 L BASOPHIL % (test code = BA%) 0.1 % 0.0-2.0 N NUCLEATED RBC % (test code = NRBC%) 0.0 % 0-0 N NEUTROPHIL # (test code = NT#) 10.24 x10 3/uL 2.0-7.6 H IMMATURE GRANULOCYTE # (test code = IG#) 0.06 x10 3/uL 0.00-0.03 H LYMPHOCYTE # (test code = LY#) 1.28 x10 3/uL 1.0-3.8 N MONOCYTE # (test code = MO#) 0.95 x10 3/uL 0.1-0.8 H EOSINOPHIL # (test code = EO#) 0.00 x10 3/uL 0.0-0.2 N BASOPHIL # (test code = BA#) 0.01 x10 3/uL 0.0-0.2 N NUCLEATED RBC # (test code = NRBC#) 0.00 x10 3/uL 0.0-0.1 N MANUAL DIFF REQUIRED (test code = MDIFF) NO GLUCOSE [id number] 08:41:00* Test Item Value Reference Range Interpretation Comme nts GLUCOSE BEDSIDE (test code = GLUBED) 201 MG/DL 70-110 H Performed by cer tified drum operator at [facility] THROMBOPLASTIN TIME [id number] 08:31:00* Test Item Value Reference Range Interpretation Comme nts THROMBOPLASTIN TIME PARTIAL (test code = PTT) 115.0 Seconds 25.0-39.5 H Therapeutic Rang e: 50.4 - 88.3 Seconds Effective 06/26/2018 THROMBOPLASTIN TIME [id number] 05:47:00* Test Item Value Reference Range Interpretation Comme nts THROMBOPLASTIN TIME PARTIAL (test code = PTT) 129.9 Seconds 25.0-39.5 H Therapeutic Rang e: 50.4 - 88.3 Seconds Effective 06/26/2018 BASIC METABOLIC [id number] 05:47:00* Test Item Value Reference Range Interpretation Comme nts SODIUM (test code = NA) 136 mEq/L 134-147 N POTASSIUM (test code = K) 4.2 mEq/L 3.4-5.0 N CHLORIDE (test code = CL) 108 mEq/L 100-108 N CARBON DIOXIDE (test code = CO2) 19 mEq/l 21-33 L ANION GAP (test code = GAP) 13 0-20 N GLUCOSE (test code = GLU) 263 mg/dL 70-110 H BLOOD UREA NITROGEN (test code = BUN) 10 mg/dL 7-18 N GLOMERULAR FILTRATION RATE (test code = GFR) 50.8 90-95 L Units of measure = ml/min/1.73 m2 CREATININE (test code = CREAT) 1.1 mg/dL 0.6-1.3 N CALCIUM (test code = CA) 8.2 mg/dL 8.0-10.5 N [id number] 05:47:00* Test Item Value Reference Range Interpretation Comme nts MAGNESIUM (test code = MAG) 1.79 mg/dL 1.80-2.40 L CBC W/AUTO [id number] 05:25:00* Test Item Value Reference Range Interpretation Comme nts WHITE BLOOD CELL (test code = WBC) 16.1 x10 3/uL 4.5-11.0 H RED BLOOD CELL (test code = RBC) 3.80 x10 6/uL 3.54-5.02 N HEMOGLOBIN (test code = HGB) 10.8 g/dL 11.0-15.0 L HEMATOCRIT (test code = HCT) 33.9 % 33.0-45.0 N MEAN CELL VOLUME (test code = MCV) 89.2 fL 81.0-99.0 N MEAN CELL HGB (test code = MCH) 28.4 pg 27.0-33.0 N MEAN CELL HGB CONCETRATION (test code = MCHC) 31.9 g/dL 33.0-37.0 L RED CELL DISTRIBUTION WIDTH CV (test code = RDW) 15.7 % 11.5-14.5 H RED CELL DISTRIBUTION WIDTH SD (test code = RDW-SD) 50.5 fL 37.0-54.0 N PLATELET COUNT (test code = PLT) 233 x10 3/uL 150-400 N MEAN PLATELET VOLUME (test code = MPV) 9.4 fL 7.0-9.0 H NEUTROPHIL % (test code = NT%) 86.4 % 56.0-77.0 H IMMATURE GRANULOCYTE % (test code = IG%) 0.6 % 0.0-2.0 N LYMPHOCYTE % (test code = LY%) 5.4 % 14.0-32.0 L MONOCYTE % (test code = MO%) 7.5 % 4.8-9.0 N EOSINOPHIL % (test code = EO%) 0.0 % 0.3-3.7 L BASOPHIL % (test code = BA%) 0.1 % 0.0-2.0 N NUCLEATED RBC % (test code = NRBC%) 0.0 % 0-0 N NEUTROPHIL # (test code = NT#) 13.91 x10 3/uL 2.0-7.6 H IMMATURE GRANULOCYTE # (test code = IG#) 0.10 x10 3/uL 0.00-0.03 H LYMPHOCYTE # (test code = LY#) 0.87 x10 3/uL 1.0-3.8 L MONOCYTE # (test code = MO#) 1.21 x10 3/uL 0.1-0.8 H EOSINOPHIL # (test code = EO#) 0.00 x10 3/uL 0.0-0.2 N BASOPHIL # (test code = BA#) 0.01 x10 3/uL 0.0-0.2 N NUCLEATED RBC # (test code = NRBC#) 0.00 x10 3/uL 0.0-0.1 N MANUAL DIFF REQUIRED (test code = MDIFF) NO COMMENTS: Hemoglobin plasma every am while on Impella support.COMMENTS: Daily while on HeparinTHROMBOPLASTIN TIME [id number] 02:34:00* Test Item Value Reference Range Interpretation Com[facility] THROMBOPLASTIN TIME PARTIAL (test code = PTT) 45.4 Seconds 25.0-39.5 H Therapeutic Rang e: 50.4 - 88.3 Seconds Effective 06/26/2018 THROMBOPLASTIN TIME [id number] 22:54:00* Test Item Value Reference Range Interpretation Com[facility] THROMBOPLASTIN TIME PARTIAL (test code = PTT) 33.3 Seconds 25.0-39.5 Therapeutic Rang e: 50.4 - 88.3 Seconds Effective 06/26/2018 THROMBOPLASTIN TIME [id number] 21:14:00* Test Item Value Reference Range Interpretation Comme nts THROMBOPLASTIN TIME PARTIAL (test code = PTT) 65.5 Seconds 25.0-39.5 H Therapeutic Rang e: 50.4 - 88.3 Seconds Effective 06/26/2018 GLUCOSE [id number] 20:25:00* Test Item Value Reference Range Interpretation Comme nts GLUCOSE BEDSIDE (test code = GLUBED) 316 MG/DL 70-110 H Performed by cer kirstie drum operator at [facility] THROMBOPLASTIN TIME [id number] 20:19:00* Test Item Value Reference Range Interpretation Comme nts THROMBOPLASTIN TIME PARTIAL (test code = PTT) 104.0 Seconds 25.0-39.5 H Therapeutic Rang e: 50.4 - 88.3 Seconds Effective 06/26/2018 CBC W/AUTO [id number] 20:07:00* Test Item Value Reference Range Interpretation Comme nts WHITE BLOOD CELL (test code = WBC) 11.2 x10 3/uL 4.5-11.0 H RED BLOOD CELL (test code = RBC) 3.83 x10 6/uL 3.54-5.02 N HEMOGLOBIN (test code = HGB) 10.8 g/dL 11.0-15.0 L HEMATOCRIT (test code = HCT) 33.9 % 33.0-45.0 N MEAN CELL VOLUME (test code = MCV) 88.5 fL 81.0-99.0 N MEAN CELL HGB (test code = MCH) 28.2 pg 27.0-33.0 N MEAN CELL HGB CONCETRATION (test code = MCHC) 31.9 g/dL 33.0-37.0 L RED CELL DISTRIBUTION WIDTH CV (test code = RDW) 15.4 % 11.5-14.5 H RED CELL DISTRIBUTION WIDTH SD (test code = RDW-SD) 49.1 fL 37.0-54.0 N PLATELET COUNT (test code = PLT) 241 x10 3/uL 150-400 N MEAN PLATELET VOLUME (test code = MPV) 9.6 fL 7.0-9.0 H NEUTROPHIL % (test code = NT%) 89.8 % 56.0-77.0 H IMMATURE GRANULOCYTE % (test code = IG%) 0.4 % 0.0-2.0 N LYMPHOCYTE % (test code = LY%) 6.3 % 14.0-32.0 L MONOCYTE % (test code = MO%) 3.4 % 4.8-9.0 L EOSINOPHIL % (test code = EO%) 0.0 % 0.3-3.7 L BASOPHIL % (test code = BA%) 0.1 % 0.0-2.0 N NUCLEATED RBC % (test code = NRBC%) 0.0 % 0-0 N NEUTROPHIL # (test code = NT#) 10.08 x10 3/uL 2.0-7.6 H IMMATURE GRANULOCYTE # (test code = IG#) 0.05 x10 3/uL 0.00-0.03 H LYMPHOCYTE # (test code = LY#) 0.71 x10 3/uL 1.0-3.8 L MONOCYTE # (test code = MO#) 0.38 x10 3/uL 0.1-0.8 N EOSINOPHIL # (test code = EO#) 0.00 x10 3/uL 0.0-0.2 N BASOPHIL # (test code = BA#) 0.01 x10 3/uL 0.0-0.2 N NUCLEATED RBC # (test code = NRBC#) 0.00 x10 3/uL 0.0-0.1 N MANUAL DIFF REQUIRED (test code = MDIFF) NO COMMENTS: IF NOT ALREADY DONE WITHIN THE LAST 24 HOURSTHROMBOPLASTIN TIME [id number] 19:07:00* Test Item Value Reference Range Interpretation Comme nts THROMBOPLASTIN TIME PARTIAL (test code = PTT) > 200.0 Seconds 25.0-39.5 H Therapeutic Range: 50.4 - 88.3 Seconds Effective 06/26/2018 COMMENTS: Start 2hrs post procedure check q1hr until 2 results in range, then q4 GLUCOSE [id number] 17:11:00* Test Item Value Reference Range Interpretation Comme nts GLUCOSE BEDSIDE (test code = GLUBED) 365 MG/DL 70-110 H Performed by cer kirstie drum operator at [facility] THROMBOPLASTIN TIME [id number] 17:04:00* Test Item Value Reference Range Interpretation Comme nts THROMBOPLASTIN TIME PARTIAL (test code = PTT) > 200.0 Seconds 25.0-39.5 H Therapeutic Range: 50.4 - 88.3 Seconds Effective 06/26/2018 COMMENTS: Start 2hrs post procedure check q1hr until 2 results in range, then q4 [id number] 15:09:00* Test Item Value Reference Range Interpretation Comme nts ACT-ISTAT (test code = ACTI) 267 SEC 74-137 H Performed by cer tified drum operator at [facility] [id number] 14:22:00* Test Item Value Reference Range Interpretation Comme nts ACT-ISTAT (test code = ACTI) 255 SEC 74-137 H Performed by cer tified drum operator at [facility] [id number] 13:52:00* Test Item Value Reference Range Interpretation Comme nts ACT-ISTAT (test code = ACTI) 362 SEC 74-137 H Performed by cer tified drum operator at [facility] [id number] 13:38:00* Test Item Value Reference Range Interpretation Comme nts ACT-ISTAT (test code = ACTI) 237 SEC 74-137 H Performed by cer tified drum operator at [facility] [id number] 13:04:00* Test Item Value Reference Range Interpretation Comme nts ACT-ISTAT (test code = ACTI) 273 SEC 74-137 H Performed by cer tified drum operator at [facility] [id number] 12:41:00* Test Item Value Reference Range Interpretation Comme nts ACT-ISTAT (test code = ACTI) 315 SEC 74-137 H Performed by cer tified drum operator at [facility] GLUCOSE [id number] 11:42:00* Test Item Value Reference Range Interpretation Comme nts GLUCOSE BEDSIDE (test code = GLUBED) 332 MG/DL 70-110 H Performed by cer tified drum operator at [facility] PROTHROMBIN [id number] 13:57:00* Test Item Value Reference Range Interpretation Comme nts PROTHROMBIN TIME PATIENT (test code = PTP) 12.0 SECONDS 9.3-12.9 N INTERNATIONAL NORMAL RATIO (test code = INR) 1.1 0.8-1.2 N TARGET INR BY INDICATION Indication INR1. Prophylaxis of venous thrombosis 2.0 - 3.0 (orthopedic surgery), Prophylaxis of venous thrombosis (other than high-risk surgery), Treatment of Deep Vein Thrombosis/Pulmonary Embolism, Prevention of systemic embolism - Tissue heart valves, Acute Myocardial Infarction (to prevent systemic embolism), Valvular heart disease, Atrial Fibrillation, Bileaflet mechanical valve in aortic position.2. Mechanical prosthetic valves (high risk), 2.5 - 3.5 Presence of Lupus Anticoagulant or Antiphospholipid Antibodies, Prevention of systemic embolism - Acute Myocardial Infarction (to prevent recurrent infarct). BASIC METABOLIC [id number] 13:47:00* Test Item Value Reference Range Interpretation Comme nts SODIUM (test code = NA) 139 mEq/L 134-147 N POTASSIUM (test code = K) 4.5 mEq/L 3.4-5.0 N CHLORIDE (test code = CL) 105 mEq/L 100-108 N CARBON DIOXIDE (test code = CO2) 28 mEq/l 21-33 N ANION GAP (test code = GAP) 10 0-20 N GLUCOSE (test code = GLU) 237 mg/dL 70-110 H BLOOD UREA NITROGEN (test code = BUN) 18 mg/dL 7-18 N GLOMERULAR FILTRATION RATE (test code = GFR) 46.0 90-95 L Units of measure = ml/min/1.73 m2 CREATININE (test code = CREAT) 1.2 mg/dL 0.6-1.3 N CALCIUM (test code = CA) 8.9 mg/dL 8.0-10.5 N CBC W/AUTO [id number] 13:35:00* Test Item Value Reference Range Interpretation Comme nts WHITE BLOOD CELL (test code = WBC) 6.4 x10 3/uL 4.5-11.0 RED BLOOD CELL (test code = RBC) 3.87 x10 6/uL 3.54-5.02 N HEMOGLOBIN (test code = HGB) 10.9 g/dL 11.0-15.0 L HEMATOCRIT (test code = HCT) 34.1 % 33.0-45.0 N MEAN CELL VOLUME (test code = MCV) 88.1 fL 81.0-99.0 N MEAN CELL HGB (test code = MCH) 28.2 pg 27.0-33.0 N MEAN CELL HGB CONCETRATION (test code = MCHC) 32.0 g/dL 33.0-37.0 L RED CELL DISTRIBUTION WIDTH CV (test code = RDW) 15.4 % 11.5-14.5 H RED CELL DISTRIBUTION WIDTH SD (test code = RDW-SD) 49.5 fL 37.0-54.0 N PLATELET COUNT (test code = PLT) 244 x10 3/uL 150-400 N MEAN PLATELET VOLUME (test c ode = MPV) 9.6 fL 7.0-9.0 H NEUTROPHIL % (test code = NT%) 48.6 % 56.0-77.0 L IMMATURE GRANULOCYTE % (test code = IG%) 0.3 % 0.0-2.0 N LYMPHOCYTE % (test code = LY%) 39.3 % 14.0-32.0 H MONOCYTE % (test code = MO%) 8.4 % 4.8-9.0 N EOSINOPHIL % (test code = EO%) 3.1 % 0.3-3.7 N BASOPHIL % (test code = BA%) 0.3 % 0.0-2.0 N NUCLEATED RBC % (test code = NRBC%) 0.0 % 0-0 N NEUTROPHIL # (test code = NT#) 3.12 x10 3/uL 2.0-7.6 N IMMATURE GRANULOCYTE # (test code = IG#) 0.02 x10 3/uL 0.00-0.03 N LYMPHOCYTE # (test code = LY#) 2.52 x10 3/uL 1.0-3.8 N MONOCYTE # (test code = MO#) 0.54 x10 3/uL 0.1-0.8 N EOSINOPHIL # (test code = EO#) 0.20 x10 3/uL 0.0-0.2 N BASOPHIL # (test code = BA#) 0.02 x10 3/uL 0.0-0.2 N NUCLEATED RBC # (test code = NRBC#) 0.00 x10 3/uL 0.0-0.1 N MANUAL DIFF REQUIRED (test c ode = MDIFF) NO GLUCOSE [id number] 16:18:00* Test Item Value Reference Range Interpretation Comme nts GLUCOSE BEDSIDE (test code = GLUBED) 227 MG/DL 70-110 H Performed by cer kirstie drum operator at [facility] TROP-I HIGH [id number] 16:11:00* Test Item Value Reference Range Interpretation Comme nts TROP-I HIGH SENSITIVITY (test code = TROPIHS) 1599 ng/L 0-34 HH CAUTION: Units o f the current test methodology (ng/L) differfrom the prior test methodology (ng/mL) by a factor of 1000. 99th Percentile Upper Reference Limit (URL): Females: 34 ng/LMales: 54 ng/L In order to distinguish acute elevations of high sensitivitytroponin from other clinical conditions, the FourthUniversal Definition of Myocardial Infarction stressesclinical assessment and the demonstration of a rise and/orfall in serial troponin results above the URL. These results were obtained using [employer] IM TnIHreagent. Results from different methodologies should not becompared to one another as quantitative results and URLs mayvary by method. LIPOPROTEIN [id number] 15:14:00* Test Item Value Reference Range Interpretation Comme nts LIPOPROTEIN LDL (test code = LDL) 56.8 mg/dL 0-100 N <100 [id number] 0-129 NEAR OPTIMAL/ABOVE [id number] HIGH>JD=464 VERY HIGH*Guidelines provided by the National Cholesterol EducationProgram Adult Treatment Panel III TROP-I HIGH [id number] 14:57:00* Test Item Value Reference Range Interpretation Comme nts TROP-I HIGH SENSITIVITY (test code = TROPIHS) 1583 ng/L 0-34 HH Critical result called to CARLEE BowserLAB.JN1 at 1457 05/13/21Nurse read back result and tech confirmed it's correct? YESCAUTION: Units of the current test methodology (ng/L) differfrom the prior test methodology (ng/mL) by a factor of 1000. 99th Percentile Upper Reference Limit (URL): Females: 34 ng/LMales: 54 ng/L In order to distinguish acute elevations of high sensitivitytroponin from other clinical conditions, the FourthUniversal Definition of Myocardial Infarction stressesclinical assessment and the demonstration of a rise and/orfall in serial troponin results above the URL. These results were obtained using [employer] IM TnIHreagent. Results from different methodologies should not becompared to one another as quantitative results and URLs mayvary by method. GLUCOSE [id number] 11:56:00* Test Item Value Reference Range Interpretation Comme nts GLUCOSE BEDSIDE (test code = GLUBED) 241 MG/DL 70-110 H Performed by cer tified drum operator at [facility] GLUCOSE [id number] 08:03:00* Test Item Value Reference Range Interpretation Comme nts GLUCOSE BEDSIDE (test code = GLUBED) 209 MG/DL 70-110 H Performed by cer tified drum operator at [facility] BASIC METABOLIC [id number] 04:59:00* Test Item Value Reference Range Interpretation Comme nts SODIUM (test code = NA) 142 mEq/L 134-147 N POTASSIUM (test code = K) 4.9 mEq/L 3.4-5.0 N CHLORIDE (test code = CL) 108 mEq/L 100-108 N CARBON DIOXIDE (test code = CO2) 24 mEq/l 21-33 N ANION GAP (test code = GAP) 14 0-20 N GLUCOSE (test code = GLU) 243 mg/dL 70-110 H BLOOD UREA NITROGEN (test code = BUN) 16 mg/dL 7-18 N GLOMERULAR FILTRATION RATE (test code = GFR) 56.7 90-95 L Units of measure = ml/min/1.73 m2 CREATININE (test code = CREAT) 1.0 mg/dL 0.6-1.3 N CALCIUM (test code = CA) 9.2 mg/dL 8.0-10.5 N CBC W/AUTO [id number] 04:50:00* Test Item Value Reference Range Interpretation Comme nts WHITE BLOOD CELL (test code = WBC) 12.0 x10 3/uL 4.5-11.0 H RED BLOOD CELL (test code = RBC) 4.11 x10 6/uL 3.54-5.02 N HEMOGLOBIN (test code = HGB) 11.5 g/dL 11.0-15.0 N HEMATOCRIT (test code = HCT) 35.6 % 33.0-45.0 N MEAN CELL VOLUME (test code = MCV) 86.6 fL 81.0-99.0 N MEAN CELL HGB (test code = MCH) 28.0 pg 27.0-33.0 N MEAN CELL HGB CONCETRATION (test code = MCHC) 32.3 g/dL 33.0-37.0 L RED CELL DISTRIBUTION WIDTH CV (test code = RDW) 15.7 % 11.5-14.5 H RED CELL DISTRIBUTION WIDTH SD (test code = RDW-SD) 49.9 fL 37.0-54.0 N PLATELET COUNT (test code = PLT) 260 x10 3/uL 150-400 N MEAN PLATELET VOLUME (test c ode = MPV) 9.5 fL 7.0-9.0 H NEUTROPHIL % (test code = NT%) 83.0 % 56.0-77.0 H IMMATURE GRANULOCYTE % (test code = IG%) 0.3 % 0.0-2.0 N LYMPHOCYTE % (test code = LY%) 9.7 % 14.0-32.0 L MONOCYTE % (test code = MO%) 6.9 % 4.8-9.0 N EOSINOPHIL % (test code = EO%) 0.0 % 0.3-3.7 L BASOPHIL % (test code = BA%) 0.1 % 0.0-2.0 N NUCLEATED RBC % (test code = NRBC%) 0.0 % 0-0 N NEUTROPHIL # (test code = NT#) 9.92 x10 3/uL 2.0-7.6 H IMMATURE GRANULOCYTE # (test code = IG#) 0.04 x10 3/uL 0.00-0.03 H LYMPHOCYTE # (test code = LY#) 1.16 x10 3/uL 1.0-3.8 N MONOCYTE # (test code = MO#) 0.82 x10 3/uL 0.1-0.8 H EOSINOPHIL # (test code = EO#) 0.00 x10 3/uL 0.0-0.2 N BASOPHIL # (test code = BA#) 0.01 x10 3/uL 0.0-0.2 N NUCLEATED RBC # (test code = NRBC#) 0.00 x10 3/uL 0.0-0.1 N MANUAL DIFF REQUIRED (test c ode = MDIFF) NO GLUCOSE [id number] 20:31:00* Test Item Value Reference Range Interpretation Comme nts GLUCOSE BEDSIDE (test code = GLUBED) 339 MG/DL 70-110 H Performed by cer tified drum operator at [facility] [id number] 15:58:00* Test Item Value Reference Range Interpretation Comme nts ACT-ISTAT (test code = ACTI) 154 SEC 74-137 H Performed by cer tified drum operator at [facility] [id number] 15:05:00* Test Item Value Reference Range Interpretation Comme nts ACT-ISTAT (test code = ACTI) 178 SEC 74-137 H Performed by cer tified drum operator at [facility] [id number] 13:53:00* Test Item Value Reference Range Interpretation Comme nts ACT-ISTAT (test code = ACTI) 207 SEC 74-137 H Performed by cer tified drum operator at [facility] GLUCOSE [id number] 12:53:00* Test Item Value Reference Range Interpretation Comme nts GLUCOSE BEDSIDE (test code = GLUBED) 150 MG/DL 70-110 H Performed by cer tified drum operator at [facility] [id number] 12:12:00* Test Item Value Reference Range Interpretation Comme nts ACT-ISTAT (test code = ACTI) 261 SEC 74-137 H Performed by cer tified drum operator at [facility] [id number] 11:36:00* Test Item Value Reference Range Interpretation Comme nts ACT-ISTAT (test code = ACTI) 261 SEC 74-137 H Performed by cer tified drum operator at [facility] [id number] 11:02:00* Test Item Value Reference Range Interpretation Comme nts ACT-ISTAT (test code = ACTI) 321 SEC 74-137 H Performed by cer tified drum operator at [facility] GLUCOSE [id number] 09:52:00* Test Item Value Reference Range Interpretation Comme nts GLUCOSE BEDSIDE (test code = GLUBED) 147 MG/DL 70-110 H Performed by cer tified drum operator at [facility] BASIC METABOLIC [id number] 14:34:00* Test Item Value Reference Range Interpretation Comme nts SODIUM (test code = NA) 141 mEq/L 134-147 N POTASSIUM (test code = K) 3.9 mEq/L 3.4-5.0 N CHLORIDE (test code = CL) 105 mEq/L 100-108 N CARBON DIOXIDE (test code = CO2) 27 mEq/l 21-33 N ANION GAP (test code = GAP) 13 0-20 N GLUCOSE (test code = GLU) 136 mg/dL 70-110 H BLOOD UREA NITROGEN (test code = BUN) 15 mg/dL 7-18 N GLOMERULAR FILTRATION RATE (test code = GFR) 56.7 90-95 L Units of measure = ml/min/1.73 m2 CREATININE (test code = CREAT) 1.0 mg/dL 0.6-1.3 N CALCIUM (test code = CA) 8.8 mg/dL 8.0-10.5 N PROTHROMBIN [id number] 14:28:00* Test Item Value Reference Range Interpretation Comme nts PROTHROMBIN TIME PATIENT (test code = PTP) 12.0 SECONDS 9.3-12.9 N INTERNATIONAL NORMAL RATIO (test code = INR) 1.1 0.8-1.2 N TARGET INR BY INDICATION Indication INR1. Prophylaxis of venous thrombosis 2.0 - 3.0 (orthopedic surgery), Prophylaxis of venous thrombosis (other than high-risk surgery), Treatment of Deep Vein Thrombosis/Pulmonary Embolism, Prevention of systemic embolism - Tissue heart valves, Acute Myocardial Infarction (to prevent systemic embolism), Valvular heart disease, Atrial Fibrillation, Bileaflet mechanical valve in aortic position.2. Mechanical prosthetic valves (high risk), 2.5 - 3.5 Presence of Lupus Anticoagulant or Antiphospholipid Antibodies, Prevention of systemic embolism - Acute Myocardial Infarction (to prevent recurrent infarct). CBC W/AUTO [id number] 14:20:00* Test Item Value Reference Range Interpretation Comme nts WHITE BLOOD CELL (test code = WBC) 7.4 x10 3/uL 4.5-11.0 N RED BLOOD CELL (test code = RBC) 4.55 x10 6/uL 3.54-5.02 N HEMOGLOBIN (test code = HGB) 12.4 g/dL 11.0-15.0 N HEMATOCRIT (test code = HCT) 39.3 % 33.0-45.0 N MEAN CELL VOLUME (test code = MCV) 86.4 fL 81.0-99.0 N MEAN CELL HGB (test code = MCH) 27.3 pg 27.0-33.0 N MEAN CELL HGB CONCETRATION (test code = MCHC) 31.6 g/dL 33.0-37.0 L RED CELL DISTRIBUTION WIDTH CV (test code = RDW) 15.7 % 11.5-14.5 H PLATELET COUNT (test code = PLT) 267 x10 3/uL 150-400 N NEUTROPHIL % (test code = NT%) 71.1 % 56.0-77.0 N LYMPHOCYTE % (test code = LY%) 16.7 % 14.0-32.0 N NEUTROPHIL # (test code = NT#) 5.25 x10 3/uL 2.0-7.6 N LYMPHOCYTE # (test code = LY#) 1.23 x10 3/uL 1.0-3.8 N MANUAL DIFF REQUIRED (test c ode = MDIFF) NO RED CELL DISTRIBUTION WIDTH SD (test code = RDW-SD) 49.3 fL 37.0-54.0 N MEAN PLATELET VOLUME (test c ode = MPV) 9.4 fL 7.0-9.0 H IMMATURE GRANULOCYTE % (test code = IG%) 0.3 % 0.0-2.0 N MONOCYTE % (test code = MO%) 8.4 % 4.8-9.0 N EOSINOPHIL % (test code = EO%) 3.0 % 0.3-3.7 N BASOPHIL % (test code = BA%) 0.5 % 0.0-2.0 N NUCLEATED RBC % (test code = NRBC%) 0.0 % 0-0 N IMMATURE GRANULOCYTE # (test code = IG#) 0.02 x10 3/uL 0.00-0.03 N MONOCYTE # (test code = MO#) 0.62 x10 3/uL 0.1-0.8 N EOSINOPHIL # (test code = EO#) 0.22 x10 3/uL 0.0-0.2 H BASOPHIL # (test code = BA#) 0.04 x10 3/uL 0.0-0.2 N NUCLEATED RBC # (test code = NRBC#) 0.00 x10 3/uL 0.0-0.1 N - XR CHEST 2 [id number] 00:00:00 [facility] : 1960 Sex: F FAX: Dany Dean MD [phone] [place]: St: REG Name: MARINA MARTINEZ CARYN [facility] : 1960 Age/S: 61/F [address] [place] [address] Unit #: [id number] Loc: [place] [address] Phys: Kina Mcdonald Acct: [id number] Dis Date: Status: REG [facility] PHONE #: [phone] Exam Date: 05/10/20211451 FAX #: [phone] Reason: PREOP EXAMS: CPT CODE: [id number] XR CHEST 2 V [id number] PROCEDURE INFORMATION: Exam: XR Chest Exam date and time: 05/10/2021 2:38 PM Age: 61 years old Clinical indication: Pre-operative exam; Respiratory screening exam; Additional info: Preop TECHNIQUE: Imaging protocol: XR of the chest. Views: 2 views. PA and Lateral COMPARISON: No relevant prior studies available. FINDINGS:Lungs: There are normal lung volumes without consolidation or interstitial oppacities. Pleural spaces: No pleural effusion. No pneumothorax. Heart/Mediastinum: The heart size is normal. Vasculature: Aortic calcifications are present. Bones/joints: Mild degenerative changes in thoracic spine. IMPRESS ION: No acute cardiopulmonary process. Electronically Signed by Sergei Michelle 05/10/2021 at 2310 Reported and signed by: Felton Michelle M.D. CC: Dany Mcdonald MD Technologist: PREETI Lucio) Trnscrd Date/Time/By: 05/10/2021 (0) : By: [email or web address] Orig Print D/T: S: 05/10/2021 (0) PAGE 1 Signed ReportPOCT-GLUCOSE [id number] 21:54:00* Test Item Value Reference Range Interpretation Comme nts POC-GLUCOSE METER (BEAKER) (test code = 1538) 194 mg/dL 70-110 H TESTED AT [address] [address] POCT-GLUCOSE [id number] 16:50:00* Test Item Value Reference Range Interpretation Comme nts POC-GLUCOSE METER (BEAKER) (test code = 1538) 134 mg/dL 70-110 H TESTED AT [address] [address] POCT-GLUCOSE [id number] 12:10:00* Test Item Value Reference Range Interpretation Comme nts POC-GLUCOSE METER (BEAKER) (test code = 1538) 155 mg/dL 70-110 H TESTED AT [place] [id number] [facility] [address] POCT-GLUCOSE [id number] 05:34:00* Test Item Value Reference Range Interpretation Comme nts POC-GLUCOSE METER (BEAKER) (test code = 1538) 249 mg/dL 70-110 H TESTED AT [place] [id number] [facility] [address] POCT-GLUCOSE [id number] 00:09:00* Test Item Value Reference Range Interpretation Comme nts POC-GLUCOSE METER (BEAKER) (test code = 1538) 236 mg/dL 70-110 H TESTED AT [place] [id number] [facility] [address] POCT-GLUCOSE [id number] 21:17:00* Test Item Value Reference Range Interpretation Comme nts POC-GLUCOSE METER (BEAKER) (test code = 1538) 153 mg/dL 70-110 H TESTED AT [place] [id number] [facility] [address] POCT-GLUCOSE [id number] 18:23:00* Test Item Value Reference Range Interpretation Comme nts POC-GLUCOSE METER (BEAKER) (test code = 1538) 148 mg/dL 70-110 H TESTED AT [place] [id number] [facility] [address] FL, UGI, WITHOUT [id number] 17:33:00Reason for exam:->Please evaluate with thin barium swallow; lap band deflated.FINAL REPORT INDICATION:Mid chest pain with swallowing prior gastric lap band.Immediately before the procedure the gastric lap band was deflated. TECHNIQUE: Upper GI exam singlecontrast (thin barium).Fluoroscopy time 0.4 minutes.Fluoroscopic images 4. FINDINGS / IMPRESSION:Inthe supine reverse Trendelenburg position the patient was administered thin barium by mouth. Contrast passed normally down the esophagus, through the gastric lap band into the stomach. Esophageal peristalsis was normal. Signed: Hudson Penn Verified Date/Time: 10/16/2018 17:33:25 Reading Location: [address] Consult Reading Room -GLUCOSE [id number] 05:59:00* Test Item Value Reference Range Interpretation Comme nts POC-GLUCOSE METER (BEAKER) (test code = 1538) 192 mg/dL 70-110 H TESTED AT [facility] [address] [facility] [address] POCT-GLUCOSE [id number] 00:39:00* Test Item Value Reference Range Interpretation Comme nts POC-GLUCOSE METER (BEAKER) (test code = 1538) 172 mg/dL 70-110 H TESTED AT [place] [id number] [facility] [address] POCT-GLUCOSE [id number] 22:13:00* Test Item Value Reference Range Interpretation Comme nts POC-GLUCOSE METER (BEAKER) (test code = 1538) 187 mg/dL 70-110 H TESTED AT [facility] [address] [facility] [address] RAD, CHEST, 1 VIEW, NON [id number] 18:59:00Reason for exam:->preopShould this be performed at the bedside?->YesFINAL REPORT Chest, one view. HISTORY: preop COMPARISON: Radiograph from earlier today IMPRESSION: There is a slightly hazy, nodular opacity which measures 1.5 cm. A follow-up rad iograph is recommended in three months to document resolution. The cardiac silhouette is normal in size and unchanged. No pleural effusion or pneumothorax. Pulmonary venous congestion. No acute bony abnormality. Signed: Chan Mcgraweport Verified Date/Time: 10/15/2018 18:59:09 Reading Location: [address] Consult Reading Room [facility] [id number] 18:46:00* Test Item Value Reference Range Interpretation Comme nts SODIUM (BEAKER) (test code = 381) 137 meq/L 136-145 POTASSIUM (BEAKER) (test code = 379) 4.1 meq/L 3.5-5.1 Specimen sligh tly hemolyzed CHLORIDE (BEAKER) (test code = 382) 105 meq/L 98-107 CO2 (BEAKER) (test code = 355) 23 meq/L 22-29 BLOOD UREA NITROGEN (BEAKER) (test code = 354) 14 mg/dL 7-21 CREATININE (BEAKER) (test code = 358) 0.84 mg/dL 0.57-1.25 Specimen sligh tly hemolyzed GLUCOSE RANDOM (BEAKER) (test code = 652) 203 mg/dL 70-105 H CALCIUM (BEAKER) (test code = 697) 8.7 mg/dL 8.4-10.2 EGFR (BEAKER) (test code = 1092) 70 mL/min/1.73 sq m ESTIMATED GFR IS NOT ACCURATE CREATININE CLEARANCE IN PREDICTING GLOMERULAR FILTRATION RATE. ESTIMATED GFR IS NOT APPLICABLE FOR DIALYSIS PATIENTS. HEMOGLOBIN [id number] 18:36:00* Test Item Value Reference Range Interpretation Comme nts HEMOGLOBIN A1C (BEAKER) (kulwant t code = 368) 9.7 % 4.3-6.1 H POCT-GLUCOSE [id number] 18:14:00* Test Item Value Reference Range Interpretation Comme nts POC-GLUCOSE METER (BEAKER) (test code = 1538) 207 mg/dL 70-110 H TESTED AT [facility] [address] [facility] [address] CBC W/PLT COUNT & AUTO [id number] 18:13:00* Test Item Value Reference Range Interpretation Comme nts WHITE BLOOD CELL COUNT (BEAK ER) (test code = 775) 7.0 K/ L 3.5-10.5 RED BLOOD CELL COUNT (BEAKER ) (test code = 761) 4.13 M/ L 3.93-5.22 HEMOGLOBIN (BEAKER) (test co de = 410) 11.9 GM/DL 11.2-15.7 HEMATOCRIT (BEAKER) (test co de = 411) 35.4 % 34.1-44.9 MEAN CORPUSCULAR VOLUME (AGATA KER) (test code = 753) 85.7 fL 79.4-94.8 MEAN CORPUSCULAR HEMOGLOBIN (BEAKER) (test code = 751) 28.8 pg 25.6-32.2 MEAN CORPUSCULAR HEMOGLOBIN CONC (BEAKER) (test code = 752) 33.6 GM/DL 32.2-35.5 RED CELL DISTRIBUTION WIDTH (BEAKER) (test code = 412) 15.0 % 11.7-14.4 H PLATELET COUNT (BEAKER) (kulwant t code = 756) 244 K/CU MM 150-450 MEAN PLATELET VOLUME (BEAKER ) (test code = 754) 9.5 fL 9.4-12.3 NUCLEATED RED BLOOD CELLS (BEAKER) (test code = 413) 0 /100 WBC 0-0 NEUTROPHILS RELATIVE PERCENT (BEAKER) (test code = 429) 65 % LYMPHOCYTES RELATIVE PERCENT (BEAKER) (test code = 430) 22 % MONOCYTES RELATIVE PERCENT (BEAKER) (test code = 431) 9 % EOSINOPHILS RELATIVE PERCENT (BEAKER) (test code = 432) 4 % BASOPHILS RELATIVE PERCENT (BEAKER) (test code = 437) 0 % NEUTROPHILS ABSOLUTE COUNT (BEAKER) (test code = 670) 4.56 K/ L 1.56-6.13 LYMPHOCYTES ABSOLUTE COUNT (BEAKER) (test code = 414) 1.53 K/ L 1.18-3.74 MONOCYTES ABSOLUTE COUNT (BE JANNA) (test code = 415) 0.61 K/ L 0.24-0.36 H EOSINOPHILS ABSOLUTE COUNT (BEAKER) (test code = 416) 0.27 K/ L 0.04-0.36 BASOPHILS ABSOLUTE COUNT (BE JANNA) (test code = 417) 0.03 K/ L 0.01-0.08 IMMATURE GRANULOCYTES-RELATI VE PERCENT (HIRAL) (test code = 2801) 0 % 0-1 Consult Notes Date/Time Note Provider Source 2023-10-25 04:03:36 Cc: Post-Op HPI: Marina Martinez is a 63 year old female with hx of PDR, DME, half-way plaquenil use, here for POW#6 s/p CEIOL/PPV/EL OD 09/07/2023 (Banaee/Guiseppi). Patient states that she lost her vision last night suddenly. 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 Assessment ICD-10-CM 1. Vitreous hemorrhage of right eye H43.11 Plan: Active proliferative diabetic retinopathy of right eye Vitreous hemorrhage of right eye Regressed proliferative diabetic retinopathy of left eye with macular edema Hx diabetic macular edema OU - s/p Avastin X2 OD - History of heart attack (03/01/2020) - A1C goal < 7.0 - Strict BP/BG/lipid control per PCP POCT HBA1C (%) Date Value 06/26/2023 8.9 (A) 01/09/2023 8.7 (A) HGB A1C (%) Date Value 12/05/2020 10.6 (H) - s/p PPV/EL/AFx OS 01/05/19 for progressing VH - s/p PRP OS 12/14/2018, PPV 02/04/2019 - s/p PRP OD 02/27/2019 - s/p Avastin OD 08/28/2023 - s/p CEIOL/PPV/EL OD 09/07/2023 (Mary/Kristine) 10/25/2023: postop 6 weeks PPV-CEIOL OD Probable total RD associated with dense vitreous hemorrhage OD Recommend [id number] OD 3. Hypertensive Retinopathy, both eyes - BP control recommended 4. Senile nuclear sclerosis, left eye - likely VS OS - comprehensive ophth n/a 5. Long-term use of Plaquenil - for RA - Has been off the plaquenil since 2-3 years ago - taking MTX and tofacitinib (Xeljanx XR) 6. Dry eyes, bilateral - compliant with lid hygiene and shampoo scrubbing - Using ATs Jhon Ayala MD [facility] Retina fellow, Year 1 10/25/2023 4:34 AM Associated attestation - Carmelina Chaidez MD - 10/25/2023 5:58 PM CDT I have discussed the findings with Dr. Ayala and agree with the fellow's plan. Carmelina Chaidez MD 10/25/2023 5:58 PM [facility] 2023-10-25 01:34:13 Images from the original note were not included. Department of Ophthalmology and Visual Sciences Consult Marina Martinez - [id number] Date of Admission: 10/25/2023 Date of Service: 10/25/2023 Reason for consult: transfer from [facility] CC / HPI 63 year old female with history of HTN, diabetes, TIAs, PDR, DME, half-way plaquenil use and CEIOL/PPV/EL OD 09/07/2023 presents with acute monocular painful vision loss in the right eye On 10/22, she began to see long lines of black/red in the vision of the R eye. On 10/23 she woke up to "total loss of vision" in that eye. She began to have pain this afternoon. She called the clinic, and attempted to use refresh tears to alleviate her symptoms as prompted however they did not help. The patient then presented to [facility] and was transferred for ophthalmology evaluation. She is not currently using any drops in the R eye. She is no longer getting injections in the eyes, her last injection was in August of 2023 in the R eye per chart review. The patient does not remember this injection. States she last ate at 7 PM, has had no recent changes in blood pressure and blood sugar and no recent falls. Ocular ROS: Contact lens wearer - No Trauma to the eye - No Change of vision - Yes Presbyopia - Yes Diplopia - No Photophobia - Yes Photopsia and floaters - Yes Eye pain - Yes Discharge - No Redness - No ROS General: negative Skin: negative Neck: negative Resp: negative GI: negative Neuro: negative Back: negative MS: negative Psych: negative Mental Status Oriented to Time, Place & Person: Yes Mood, Affect: Normal Past History Past Medical History: Diagnosis Date Autoimmune disorder CAD (coronary artery disease) Cataract DM (diabetes mellitus) GERD (gastroesophageal reflux disease) History of diverticulitis History of stroke HTN (hypertension) Hyperlipidemia IDDM (insulin dependent diabetes mellitus) 06/11/2013 Late effects of CVA (cerebrovascular accident) 01/17/2021 Mood disorder 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 01/17/2021 Osteoarthrosis, unspecified whether generalized or localized, lower leg Pap smear abnormality of cervix RA (rheumatoid arthritis) Seropositive, erosive with RF of 265 and CCP titer of 71 Right knee pain 08/05/2015 Steroid long-term use 01/13/2012 Urinary incontinence occasional stress incont Vitreous hemorrhage of left eye 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, 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, 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 - s/p PPV/EL/AFx OS 01/05/19 for progressing VH - s/p PRP OS 12/14/2018, PPV 02/04/2019 - s/p PRP OD 02/27/2019 - s/p Avastin OD 08/28/2023 - s/p CEIOL/PPV/EL OD 09/07/2023 (Banaee/Guiseppi) Ocular Family History None Ocular Medications (per patient) None Social History Social History Socioeconomic History Marital status: Spouse name: Not on file Number of children: 2 Years of education: Not on file Highest education level: Not on file Occupational History Not on file Tobacco Use Smoking status: Never Passive exposure: Never Smokeless tobacco: Never Vaping Use Vaping status: Never Used Substance and Sexual Activity Alcohol use: No Drug use: No Sexual activity: Not Currently Partners: Male Other Topics Concern Not on file Social History Narrative Denies domestic or physical violence within the home Shinto Preference: Voodoo Social Determinants of Health Financial Resource Strain: Not on file Food Insecurity: Not on file Transportation Needs: Not on file Physical Activity: Not on file Stress: Not on file Social Connections: Not on file Intimate Partner Violence: Not on file Housing Stability: Not on file Medications Current Facility-Administered Medications Medication Dose Route Frequency Last Rate Last Admin HYDROcodone-acetaminophen (NORCO 5) tablet 1 tablet 1 tablet Oral ONCE Current Outpatient Medications Medication Sig Dispense Refill insulin aspart U-100 (NOVOLOG FLEXPEN U-100 INSULIN) 100 unit/mL (3 mL) injection inject 10 Units under the skin in the morning and 10 Units at noon and 10 Units in the evening. inject before meals. 27 mL 3 moxifloxacin (VIGAMOX) 0.5 % ophthalmic drops Place 1 Drop in right eye 4 (four) times daily. 3 mL 1 prednisoLONE acetate 1 % ophthalmic suspension drops Place 1 Drop in right eye 4 (four) times daily. 5 mL 1 tirzepatide (MOUNJARO) 2.5 mg/0.5 mL subcutaneous injection inject 2.5 mg under the skin weekly. 2 mL 2 JARDIANCE 25 mg Tab tablet TAKE 1 TABLET BY MOUTH IN THE MORNING 90 tablet 0 cycloSPORINE (RESTASIS) 0.05 % drops Place 1 Drop in left eye every 12 (twelve) hours for 180 days. 30 Each 6 gabapentin 300 mg capsule Take 2 capsules by mouth in the morning and 2 capsules in the evening. 120 capsule 2 insulin degludec (TRESIBA FLEXTOUCH U-100) 100 unit/mL (3 mL) InPn inject 32 Units under the skin in the morning. Max daily dose of 40 units 15 mL 2 metoprolol tartrate 25 mg tablet Take 1 tablet by mouth in the morning and 1 tablet in the evening. 60 tablet 0 tirzepatide (MOUNJARO) 5 mg/0.5 mL subcutaneous injection inject 5 mg under the skin weekly. 2 mL 3 Insulin Norborne, Disposable, (PEN NEEDLES) 31 gauge x 1/4" Ndle Use as directed 4 times daily. E11.65 400 Each 1 azelastine 137 mcg (0.1 %) nasal spray USE 1 SPRAY IN EACH NOSTRIL IN THE MORNING AND IN THE EVENING DIRECTED 60 mL 0 albuterol 90 mcg/actuation inhaler INHALE 2 PUFFS BY MOUTH EVERY 4-6 HOURS NEEDED FOR DIFFICULTY BREATHING amoxicillin 500 mg capsule TAKE 1 CAPSULE BY MOUTH EVERY 8 HOURS FOR 10 DAYS benzonatate (TESSALON PERLES) 100 mg capsule Take 1 capsule by mouth every 8 (eight) hours as needed for Cough. 30 capsule 0 traMADoL 50 mg tablet TAKE 1 TABLET BY MOUTH EVERY 8 HOURS NEEDED gabapentin 600 mg tablet Take 1 tablet by mouth in the morning and 1 tablet in the evening. 180 tablet 0 nystatin 100,000 unit/gram powder Apply to area(s) 2 (two) times daily. 15 g 1 methotrexate 2.5 mg tablet Take 1 tablet by mouth weekly On Monday; 2.5mg atorvastatin 40 mg tablet Take 1 tablet by mouth at bedtime. 30 tablet 5 ISOSORBIDE MONONITRATE 30 mg 24 hr tablet TAKE 1 TABLET BY MOUTH DAILY 90 tablet 1 HYDROcodone-acetaminophen 5-325 mg tablet TAKE 1 TABLET BY MOUTH EVERY 6 HOURS NEEDED DULoxetine 20 mg capsule Take 1 capsule by mouth every morning. 30 capsule 3 losartan 50 mg tablet Take 1 tablet by mouth in the morning and 1 tablet in the evening. foLIC acid 1 mg tablet Take 1 tablet by mouth in the morning. except on date of methotrexate aspirin 81 mg chewable tablet Take 1 tablet by mouth daily. 90 tablet 3 clopidogreL (PLAVIX) 75 mg tablet Take 1 tablet by mouth daily. 90 tablet 3 nitroglycerin 0.[address] 1 tablet under the tongue every 5 (five) minutes as needed for Chest pain. 1 Bottle 3 methotrexate 5 mg tablet Take by mouth weekly. tofacitinib (XELJANZ XR) 11 mg Tb24 Take 11 mg by mouth daily. 90 tablet 1 Dextran 70-Hypromellose (ARTIFICIAL TEARS) Dpet Place 1 Drop in both eyes as needed. 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 OD: 11 OS: 12 Motility: Full, both eyes Visual Field: Unable OD, Full to confrontation OS OPH Exam: Slit Light Exam OD: External: wnl Lids and Lashes: wnl Conjunctiva/Sclera: quiet Cornea: clear, 10 o clock suture in place Anterior Chamber: deep quiet Iris: Normal, no NVI Lens: PCIOL Anterior Vitreous: many RBCs OS: External: wnl Lids and Lashes: wnl Conjunctiva/Sclera: quiet Cornea: PEE Anterior Chamber: deep quiet Iris: normal, no NVI Lens: anterior capsule pigment, 3+ NS, 2+ cortical Anterior Vitreous: clear Dilated Fundus Exam: Patient dilated with 1 drop of 2.5% phenylephrine and 1% tropicamide into each eye at 1:34 AM. OD: Optic Nerve: unable C/D: unable Macula: unable Vessels: unable Periphery: unable Vitreous: unable OS: Optic Nerve: normal C/D: 0.4 Macula: IRH Vessels: attenuated Periphery: laser scars, DBH Vitreous: surgically empty Imaging: reviewed Labs reviewed: reviewed Assessment: Rhegmatogenous retinal detachment OD Vitreous hemorrhage OD Acute vision loss OD History of PPV, EL OU Active proliferative diabetic retinopathy of right eye Vitreous hemorrhage of right eye Regressed proliferative diabetic retinopathy of left eye with macular edema Hx diabetic macular edema OU - VA LP with projection OD, IOP wnl, unable to determine RAPD given bilateral minimally reactive pupils - Slit lamp exam significant for: no NVI prior to dilation OU - DFE: unable OD due to dense vitreous hemorrhage. B scan above. - DDx includes: large vitreous hemorrhage vs retinal detachment OD vs combination of both - Probable total RD associated with dense vitreous hemorrhage OD, patient last ate at 7 PM, now on pre procedure clears in anticipation of operative repair today Recommendations: - PPCLD for PPV/EL/Afx with SO vs C3F8 gas OD in AM + intravitreal injection of Avastin - remain in ED until surgery, to be discharged from Ed following procedure - consent signed and within chart Patient seen and discussed with Dr. Rodgers, PGY-[address] Ayala (fellow), discussed with Dr. Chaidez (faculty) The management plan was discussed with the patient and the consulting team. Yisel Quijano MD PGY-2 Ophthalmology and Visual Sciences Please page director of recruitment and admissions ophthalmology resident with any questions After discussion with Dr. Quijano. I agree with resident's note as written. Loni Izaguirre. Shot Lighter Ophthalmology [facility] OPH-OPHTHALMOLOGY STAFF [facility] - Health History and Physical Notes Date/Time Note Provider Source 2023-10-25 04:37:26 Outpatient Surgery History & Physical Marina Martinez 1960, 63 year old, /White, female [id number] Admit type: Jailyn Andres day surgery Attending Surgeon: Reginaldo Pal MD Fellow Surgeon: Dr. Ayala Chief Complaint: Blurred vision OD History of Present Illness: Causing difficulty Driving Past Medical History: Diagnosis Date Autoimmune disorder CAD (coronary artery disease) Cataract DM (diabetes mellitus) GERD (gastroesophageal reflux disease) History of diverticulitis History of stroke HTN (hypertension) Hyperlipidemia IDDM (insulin dependent diabetes mellitus) 06/11/2013 Late effects of CVA (cerebrovascular accident) 01/17/2021 Mood disorder 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 01/17/2021 Osteoarthrosis, unspecified whether generalized or localized, lower leg Pap smear abnormality of cervix RA (rheumatoid arthritis) Seropositive, erosive with RF of 265 and CCP titer of 71 Right knee pain 08/05/2015 Steroid long-term use 01/13/2012 Urinary incontinence occasional stress incont Vitreous hemorrhage of left eye Past Surgical History: Procedure Laterality Date ARTHROSCOPY OF JOINT UNLISTED b/L knees SECTION ELBOW BURSECTOMY B/L ENDOLASER PHOTOCOAGULATION Left 02/04/2019 Surgeon: Joana Dean MD; Location: [facility] [place] ENDOLASER PHOTOCOAGULATION Right 09/07/2023 Surgeon: Carmelina Chaidez MD; Location: [facility] LAPAROSCOPIC ADJUSTABLE GASTRIC BANDING 2009 OPEN CHOLECYSTECTOMY PARS PLANA VITRECTOMY Left 02/04/2019 Surgeon: Joana Dean MD; Location: [facility] PARS PLANA VITRECTOMY Right 09/07/2023 Surgeon: Carmelina Chaidez MD; Location: [facility] LOC[facility] PHACOEMULSIFICATION OF CATARACT WITH INTRAOCULAR LENS IMPLANT Right 09/07/2023 Surgeon: Carmelina Chaidez MD; Location: [facility] PRISCILLA STENT 05/12/2021. Cardio-Dr. Cee TOTAL KNEE ARTHROPLASTY Left TOTAL KNEE ARTHROPLASTY Right 05/15/2017 Surgeon: Katia Kamara MD; Location: [facility] OR Location TUBAL LIGATION Current Facility-Administered Medications Medication Dose Route Frequency Last Rate Last Admin HYDROcodone-acetaminophen (NORCO 5) tablet 1 tablet 1 tablet Oral ONCE Current Outpatient Medications Medication Sig Dispense Refill insulin aspart U-100 (NOVOLOG FLEXPEN U-100 INSULIN) 100 unit/mL (3 mL) injection inject 10 Units under the skin in the morning and 10 Units at noon and 10 Units in the evening. inject before meals. 27 mL 3 moxifloxacin (VIGAMOX) 0.5 % ophthalmic drops Place 1 Drop in right eye 4 (four) times daily. 3 mL 1 prednisoLONE acetate 1 % ophthalmic suspension drops Place 1 Drop in right eye 4 (four) times daily. 5 mL 1 tirzepatide (MOUNJARO) 2.5 mg/0.5 mL subcutaneous injection inject 2.5 mg under the skin weekly. 2 mL 2 JARDIANCE 25 mg Tab tablet TAKE 1 TABLET BY MOUTH IN THE MORNING 90 tablet 0 cycloSPORINE (RESTASIS) 0.05 % drops Place 1 Drop in left eye every 12 (twelve) hours for 180 days. 30 Each 6 gabapentin 300 mg capsule Take 2 capsules by mouth in the morning and 2 capsules in the evening. 120 capsule 2 insulin degludec (TRESIBA FLEXTOUCH U-100) 100 unit/mL (3 mL) InPn inject 32 Units under the skin in the morning. Max daily dose of 40 units 15 mL 2 metoprolol tartrate 25 mg tablet Take 1 tablet by mouth in the morning and 1 tablet in the evening. 60 tablet 0 tirzepatide (MOUNJARO) 5 mg/0.5 mL subcutaneous injection inject 5 mg under the skin weekly. 2 mL 3 Insulin Norborne, Disposable, (PEN NEEDLES) 31 gauge x 1/4" Ndle Use as directed 4 times daily. E11.65 400 Each 1 azelastine 137 mcg (0.1 %) nasal spray USE 1 SPRAY IN EACH NOSTRIL IN THE MORNING AND IN THE EVENING DIRECTED 60 mL 0 albuterol 90 mcg/actuation inhaler INHALE 2 PUFFS BY MOUTH EVERY 4-6 HOURS NEEDED FOR DIFFICULTY BREATHING amoxicillin 500 mg capsule TAKE 1 CAPSULE BY MOUTH EVERY 8 HOURS FOR 10 DAYS benzonatate (TESSALON PERLES) 100 mg capsule Take 1 capsule by mouth every 8 (eight) hours as needed for Cough. 30 capsule 0 traMADoL 50 mg tablet TAKE 1 TABLET BY MOUTH EVERY 8 HOURS NEEDED gabapentin 600 mg tablet Take 1 tablet by mouth in the morning and 1 tablet in the evening. 180 tablet 0 nystatin 100,000 unit/gram powder Apply to area(s) 2 (two) times daily. 15 g 1 methotrexate 2.5 mg tablet Take 1 tablet by mouth weekly On Monday; 2.5mg atorvastatin 40 mg tablet Take 1 tablet by mouth at bedtime. 30 tablet 5 ISOSORBIDE MONONITRATE 30 mg 24 hr tablet TAKE 1 TABLET BY MOUTH DAILY 90 tablet 1 HYDROcodone-acetaminophen 5-325 mg tablet TAKE 1 TABLET BY MOUTH EVERY 6 HOURS NEEDED DULoxetine 20 mg capsule Take 1 capsule by mouth every morning. 30 capsule 3 losartan 50 mg tablet Take 1 tablet by mouth in the morning and 1 tablet in the evening. foLIC acid 1 mg tablet Take 1 tablet by mouth in the morning. except on date of methotrexate aspirin 81 mg chewable tablet Take 1 tablet by mouth daily. 90 tablet 3 clopidogreL (PLAVIX) 75 mg tablet Take 1 tablet by mouth daily. 90 tablet 3 nitroglycerin 0.[address] 1 tablet under the tongue every 5 (five) minutes as needed for Chest pain. 1 Bottle 3 methotrexate 5 mg tablet Take by mouth weekly. tofacitinib (XELJANZ XR) 11 mg Tb24 Take 11 mg by mouth daily. 90 tablet 1 Dextran 70-Hypromellose (ARTIFICIAL TEARS) Dpet Place 1 Drop in both eyes as needed. Ivp dye [iodine and iodide containing products] and Shellfish derived HEENT: see progress note Heart: WNL Lungs: WNL Abdomen: WNL Blood pressure 122/66, pulse 68, temperature 36.8 ?C (98.2 ?F), temperature source Oral, resp. rate 18, height 1.549 m (5' 1"), weight 91.6 kg (202 lb), last menstrual period 02/24/2011, SpO2 98%. Bleeding tendencies: No Pertinent physical abnormalities: No Impression/Diagnosis: Vitreous hemorrhage with possible retinal detachment OD Treatment Plan/Procedure: [id number] OD Anesthesia Type: MAC Risks, benefits, and alternatives discussed with patient who voices understanding and wishes to proceed. Consent obtained: Written consent was obtained from patient Physician: Jhon Ayala MD \\\\ Associated attestation - Carmelina Chaidez MD - 10/25/2023 5:59 PM CDT I have discussed the findings with Dr. Ayala and agree with the fellow's plan. Carmelina Chaidez MD 10/25/2023 5:59 PM [facility] 2023-09-07 06:50:44 Marina Martinez 1960, 63 year old, /White, female [id number] Admit type: DSU Attending Surgeon:Dr. Mary MD Fellow Surgeon: Dr. 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 01/17/2021 Osteoarthrosis, unspecified whether generalized or localized, lower leg Pap smear abnormality of cervix RA (rheumatoid arthritis) Seropositive, erosive with RF of 265 and CCP titer of 71 Right knee pain 08/05/2015 Steroid long-term use 01/13/2012 Urinary incontinence occasional stress incont Vitreous hemorrhage of left eye Past Surgical History: Procedure Laterality Date ARTHROSCOPY OF JOINT UNLISTED b/L knees SECTION ELBOW BURSECTOMY B/L ENDOLASER PHOTOCOAGULATION Left 02/04/2019 Surgeon: Joana Dean MD; Location: [facility] Location LAPAROSCOPIC ADJUSTABLE GASTRIC BANDING 2009 OPEN CHOLECYSTECTOMY PARS PLANA VITRECTOMY Left 02/04/2019 Surgeon: Joana Dean MD; Location: [facility] OR Location STENT 05/12/2021. Cardio-Dr. Cee TOTAL KNEE ARTHROPLASTY Left TOTAL KNEE ARTHROPLASTY Right 05/15/2017 Surgeon: Katia Kamara MD; Location: [facility] OR Location TUBAL LIGATION No current facility-administered medications for this encounter. Current Outpatient Medications Medication Sig Dispense Refill tirzepatide (MOUNJARO) 2.5 mg/0.5 mL subcutaneous injection inject 2.5 mg under the skin weekly. 2 mL 2 JARDIANCE 25 mg Tab tablet TAKE 1 TABLET BY MOUTH IN THE MORNING 90 tablet 0 cycloSPORINE (RESTASIS) 0.05 % drops Place 1 Drop in left eye every 12 (twelve) hours for 180 days. 30 Each 6 insulin aspart U-100 (NOVOLOG FLEXPEN U-100 INSULIN) 100 unit/mL (3 mL) injection ADMINISTER 10 UNITS UNDER THE SKIN BEFORE MEALS. MAX DAILY DOSE OF 30 UNITS 3 mL 0 insulin degludec (TRESIBA FLEXTOUCH U-100) 100 unit/mL (3 mL) InPn inject 32 Units under the skin in the morning. Max daily dose of 40 units 15 mL 2 metoprolol tartrate 25 mg tablet Take 1 tablet by mouth in the morning and 1 tablet in the evening. 60 tablet 0 tirzepatide (MOUNJARO) 5 mg/0.5 mL subcutaneous injection inject 5 mg under the skin weekly. 2 mL 3 azelastine 137 mcg (0.1 %) nasal spray USE 1 SPRAY IN EACH NOSTRIL IN THE MORNING AND IN THE EVENING DIRECTED 60 mL 0 albuterol 90 mcg/actuation inhaler INHALE 2 PUFFS BY MOUTH EVERY 4-6 HOURS NEEDED FOR DIFFICULTY BREATHING gabapentin 600 mg tablet Take 1 tablet by mouth in the morning and 1 tablet in the evening. 180 tablet 0 nystatin 100,000 unit/gram powder Apply to area(s) 2 (two) times daily. 15 g 1 methotrexate 2.5 mg tablet Take 1 tablet by mouth weekly On Monday; 2.5mg atorvastatin 40 mg tablet Take 1 tablet by mouth at bedtime. 30 tablet 5 HYDROcodone-acetaminophen 5-325 mg tablet TAKE 1 TABLET BY MOUTH EVERY 6 HOURS NEEDED losartan 50 mg tablet Take 1 tablet by mouth in the morning and 1 tablet in the evening. foLIC acid 1 mg tablet Take 1 tablet by mouth in the morning. except on date of methotrexate aspirin 81 mg chewable tablet Take 1 tablet by mouth daily. 90 tablet 3 clopidogreL (PLAVIX) 75 mg tablet Take 1 tablet by mouth daily. 90 tablet 3 nitroglycerin 0.[address] 1 tablet under the tongue every 5 (five) minutes as needed for Chest pain. 1 Bottle 3 Dextran 70-Hypromellose (ARTIFICIAL TEARS) Dpet Place 1 Drop in both eyes as needed. gabapentin 300 mg capsule Take 2 capsules by mouth in the morning and 2 capsules in the evening. 120 capsule 2 Insulin Norborne, Disposable, (PEN NEEDLES) 31 gauge x 1/4" Ndle Use as directed 4 times daily. E11.65 400 Each 1 amoxicillin 500 mg capsule TAKE 1 CAPSULE BY MOUTH EVERY 8 HOURS FOR 10 DAYS benzonatate (TESSALON PERLES) 100 mg capsule Take 1 capsule by mouth every 8 (eight) hours as needed for Cough. 30 capsule 0 traMADoL 50 mg tablet TAKE 1 TABLET BY MOUTH EVERY 8 HOURS NEEDED ISOSORBIDE MONONITRATE 30 mg 24 hr tablet TAKE 1 TABLET BY MOUTH DAILY 90 tablet 1 DULoxetine 20 mg capsule Take 1 capsule by mouth every morning. 30 capsule 3 methotrexate 5 mg tablet Take by mouth weekly. tofacitinib (XELJANZ XR) 11 mg Tb24 Take 11 mg by mouth daily. 90 tablet 1 Ivp dye [iodine and iodide containing products] and Shellfish derived Physical Exam: HEENT: see progress note Weight 207 lb 14.3 oz (94.3 kg), last menstrual period 02/24/2011. Bleeding tendencies: Yes on DAPT Pertinent physical abnormalities: NA Impression/Diagnosis: Vitreous Hemorrhage with a cataract OD Treatment Plan/Procedure: CEIOL/PPV/ELP and any other indicated procedures OD Anesthesia Type: MAC Holdover from Clinic: [facility] patient: No Hemodialysis: No Risks, benefits, and alternatives discussed with patient who voices understanding and wishes to proceed. - Risks/benefits/alternatives of surgery discussed with patient - It was explained to patient that as with any intraocular surgery, there is a risk of complications including but not limited to hemorrhage/bleeding in any part of the eye, infection, cataract formation, glaucoma, retinal detachment, retinal tears, need for additional surgeries, loss of vision and loss of the eye - informed consent was discussed with the patient, including: condition, proposed care, treatments and services, alternative forms of treatment, and risks of no treatment; details discussed around the procedures to be used, and the risks and hazards involved, potential benefits, and side effects of the patient s proposed care, treatment, and services; the likelihood of the patient achieving his/her goals; and any potential problems that might occur during recuperation - reasonable alternatives also discussed with the patient s proposed care, treatment, and services; the discussion encompasses risks, benefits, and side effects related to the alternative and risks related to not receiving the proposed care, treatment, and services - all concerns were addressed and all questions were answered - the patient voiced understanding and provided a written consent to proceed with surgery Consent obtained: Written consent was obtained from patient Physician: IAN Rivas OPH-OPHTHALMOLOGY STAFF [facility] 2023-08-21 09:15:00 Marina Martinez 1960, 63 year old, /White, female [id number] Admit type: DSU Attending Surgeon:Dr. Mary MD Fellow Surgeon: Dr. 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 01/17/2021 Osteoarthrosis, unspecified whether generalized or localized, lower leg Pap smear abnormality of cervix RA (rheumatoid arthritis) Seropositive, erosive with RF of 265 and CCP titer of 71 Right knee pain 08/05/2015 Steroid long-term use 01/13/2012 Urinary incontinence occasional stress incont Vitreous hemorrhage of left eye Past Surgical History: Procedure Laterality Date ARTHROSCOPY OF JOINT UNLISTED b/L knees SECTION ELBOW BURSECTOMY B/L ENDOLASER PHOTOCOAGULATION Left 02/04/2019 Surgeon: Joana Dean MD; Location: [facility] Location LAPAROSCOPIC ADJUSTABLE GASTRIC BANDING 2009 OPEN CHOLECYSTECTOMY PARS PLANA VITRECTOMY Left 02/04/2019 Surgeon: Joana Dean MD; Location: [facility] OR Location STENT 05/12/2021. Cardio-Dr. Cee TOTAL KNEE ARTHROPLASTY Left TOTAL KNEE ARTHROPLASTY Right 05/15/2017 Surgeon: Katia Kamara MD; Location: [facility] OR Location TUBAL LIGATION Current Outpatient Medications Medication Sig Dispense Refill tirzepatide (MOUNJARO) 2.5 mg/0.5 mL subcutaneous injection inject 2.5 mg under the skin weekly. 2 mL 2 cycloSPORINE (RESTASIS) 0.05 % drops Place 1 Drop in left eye every 12 (twelve) hours for 180 days. 30 Each 6 Dextran 70-Hypromellose (ARTIFICIAL TEARS) Dpet Place 1 Drop in both eyes as needed. JARDIANCE 25 mg Tab tablet TAKE 1 TABLET BY MOUTH IN THE MORNING 90 tablet 0 gabapentin 300 mg capsule Take 2 capsules by mouth in the morning and 2 capsules in the evening. 120 capsule 2 insulin aspart U-100 (NOVOLOG FLEXPEN U-100 INSULIN) 100 unit/mL (3 mL) injection ADMINISTER 10 UNITS UNDER THE SKIN BEFORE MEALS. MAX DAILY DOSE OF 30 UNITS 3 mL 0 insulin degludec (TRESIBA FLEXTOUCH U-100) 100 unit/mL (3 mL) InPn inject 32 Units under the skin in the morning. Max daily dose of 40 units 15 mL 2 metoprolol tartrate 25 mg tablet Take 1 tablet by mouth in the morning and 1 tablet in the evening. 60 tablet 0 tirzepatide (MOUNJARO) 5 mg/0.5 mL subcutaneous injection inject 5 mg under the skin weekly. 2 mL 3 Insulin Norborne, Disposable, (PEN NEEDLES) 31 gauge x 1/4" Ndle Use as directed 4 times daily. E11.65 400 Each 1 azelastine 137 mcg (0.1 %) nasal spray USE 1 SPRAY IN EACH NOSTRIL IN THE MORNING AND IN THE EVENING DIRECTED 60 mL 0 albuterol 90 mcg/actuation inhaler INHALE 2 PUFFS BY MOUTH EVERY 4-6 HOURS NEEDED FOR DIFFICULTY BREATHING amoxicillin 500 mg capsule TAKE 1 CAPSULE BY MOUTH EVERY 8 HOURS FOR 10 DAYS benzonatate (TESSALON PERLES) 100 mg capsule Take 1 capsule by mouth every 8 (eight) hours as needed for Cough. 30 capsule 0 traMADoL 50 mg tablet TAKE 1 TABLET BY MOUTH EVERY 8 HOURS NEEDED gabapentin 600 mg tablet Take 1 tablet by mouth in the morning and 1 tablet in the evening. 180 tablet 0 nystatin 100,000 unit/gram powder Apply to area(s) 2 (two) times daily. 15 g 1 methotrexate 2.5 mg tablet Take 5 tablets by mouth weekly On Monday atorvastatin 40 mg tablet Take 1 tablet by mouth at bedtime. 30 tablet 5 ISOSORBIDE MONONITRATE 30 mg 24 hr tablet TAKE 1 TABLET BY MOUTH DAILY 90 tablet 1 HYDROcodone-acetaminophen 5-325 mg tablet TAKE 1 TABLET BY MOUTH EVERY 6 HOURS NEEDED DULoxetine 20 mg capsule Take 1 capsule by mouth every morning. 30 capsule 3 losartan 50 mg tablet Take 1 tablet by mouth in the morning and 1 tablet in the evening. foLIC acid 1 mg tablet Take 1 tablet by mouth in the morning. except on date of methotrexate aspirin 81 mg chewable tablet Take 1 tablet by mouth daily. 90 tablet 3 clopidogreL (PLAVIX) 75 mg tablet Take 1 tablet by mouth daily. 90 tablet 3 nitroglycerin 0.[address] 1 tablet under the tongue every 5 (five) minutes as needed for Chest pain. 1 Bottle 3 methotrexate 5 mg tablet Take by mouth weekly. tofacitinib (XELJANZ XR) 11 mg Tb24 Take 11 mg by mouth daily. 90 tablet 1 No current facility-administered medications for this visit. Ivp dye [iodine and iodide containing products] and Shellfish derived Physical Exam: HEENT: see progress note Heart: WNL Lungs: WNL Abdomen: WNL Blood pressure 120/82, pulse 64, weight 94.3 kg (208 lb), last menstrual period 02/24/2011. Bleeding tendencies: on DAPT Pertinent physical abnormalities: none Impression/Diagnosis: visually significant vitreous hemorrhage 2/2 proliferative diabetic retinopathy and visually significant cataract OD Treatment Plan/Procedure: phacoemulsification and intraocular lens placement (SN60WF +22.50D), pars plana vitrectomy, endolaser photocoagulation, and any other indicated procedures, OD Anesthesia Type: MAC Risks, benefits, and alternatives discussed with patient who voices understanding and wishes to proceed. - Risks/benefits/alternatives of surgery discussed with patient - It was explained to patient that as with any intraocular surgery, there is a risk of complications including but not limited to hemorrhage/bleeding in any part of the eye, infection, cataract formation, glaucoma, retinal detachment, retinal tears, need for additional surgeries, loss of vision and loss of the eye - informed consent was discussed with the patient, including: condition, proposed care, treatments and services, alternative forms of treatment, and risks of no treatment; details discussed around the procedures to be used, and the risks and hazards involved, potential benefits, and side effects of the patient s proposed care, treatment, and services; the likelihood of the patient achieving his/her goals; and any potential problems that might occur during recuperation - reasonable alternatives also discussed with the patient s proposed care, treatment, and services; the discussion encompasses risks, benefits, and side effects related to the alternative and risks related to not receiving the proposed care, treatment, and services - all concerns were addressed and all questions were answered - the patient voiced understanding and provided a written consent to proceed with surgery Consent obtained: Written consent was obtained from patient Physician: Tiffany Marie DO T [facility] Notes Date/Time Note Provider Source 2024-09-19 09:18:53 Called patient, no answer, LVM and let her know that there is no sooner appointment and that her appointment for 09/30 will be okay for her to come in that day. Lelia Hernandez [facility] 2024-09-18 18:17:42 Although the pt may develop problems, but if there is no sooner appt, then she needs to come at that time. Carmelina Chaidez MD 09/18/2024 6:18 PM OPH-OPHTHALMOLOGY STAFF [facility] 2024-09-18 11:03:[address] Chaidez to confirm if rescheduled appt is okay or will pt need to be seen sooner. Brittny Burnett Иван 09/18/2024 11:04 AM Brittny Burnett Oates [facility] 2024-09-18 10:04:56 Called and spoke with patient and informed that she has been placed to the wait list. She expressed that she was worried that it might be pushed out too far, as the provider told her that she needs injections ever 6-8 weeks. Routing to Linux Administrator to advise. Jerica Olivera [facility] 2024-09-17 10:35:16 Copied from [facility] #[id number]. Topic: Clinical - Medical Advice >> Sep 17, 2024 10:32 AM Patient Emt wrote: Marina Martinez is a 64 year old female Patient is calling stating that she may not be able to make her appointment with Dr. Chaidez today at 1:00 PM. The patient is having transportation issues, but will try to make it to the appointment if possible. The patient requested that I schedule another appointment for her incase she is not able to come. I scheduled the patient for the first available eye injection appointment in [place] on 09/30/2024. Patient is wanting to if this would be too far out for a reschedule. Please contact and advise. Roro Bland [facility] 2024-08-08 11:15:04 Refill: mounjaro 5 mg RENAY: 10/30/2023 NOV: 09/16/2024 Refill sent Kitty Marin RN [facility] 2024-07-25 14:37:30 info Minoo Coreas MA [facility] 2024-07-25 10:14:54 Received [facility] Radiology Report. Placed in provider box. Please close encounter Merle Mixon [facility] 2024-07-17 13:58:09 Received fax from [facility] requesting medical records, faxed to HIM to process. Jean Pierre Webber [facility] 2024-06-14 14:30:00 Images from the original note were not included. Venipuncture collection performed by clean technique on the right anticubitus. Total of 1 attempts were made. Slight pressure and a bandage/dressing were applied to the site(s). The patient experienced no complications. The following specimens were processed according to instructions and sent to [facility] laboratories per lab order on 06/14/2024 : LT BLUE SST 1 LT GREEN RED LAV 1 PPT DK GREEN (LiHep) DK GREEN (SodH) MANZANO DK BLUE (K2) DK BLUE (S) ACD Blood Culture NIPT/NTD Pt sent home with sterile stool collection kit Dennise Howard 06/14/2024 2:42 PM [facility] 2024-05-14 09:52:44 Rescheduled appointment to 05/21 and left a with appt details. E WOUND Anna Marie Millan [facility] 2024-05-14 09:31:01 Marina Martinez is a 64 year old female Patient calling need to reschedule appointment today for injection, she has no ride. Please assist with rescheduling E WOUND Mila Ramachandran [facility] 2024-05-06 11:30:36 Received fax to request medical records, fax to HIM to process. E WOUND Jean Pierre Webber [facility] 2024-04-30 14:34:[address] [facility] [facility] sent radiology report placed in provider box E WOUND Cammy Garcia [facility] 2024-04-26 15:23:27 Refill Request: Requested Prescriptions Pending Prescriptions Disp Refills gabapentin 600 mg tablet 180 tablet 0 Sig: Take 1 tablet by mouth in the morning and 1 tablet in the evening. Last office visit: 10/30/2023 Last refill date: 06/26/2023 Last labs: 10/30/2023 Next appt date: Future Appointments Date Time Provider Department Center 05/01/2024 2:00 PM Rocio Roberto PA [email or web address] [facility] 05/14/2024 1:00 PM Carmelina Chaidez MD [facility] Multi 06/06/2024 2:00 PM Cordell Manley MD ADCOBW [facility] [place] 06/20/2024 3:40 PM Ria Hinojosa DPM [facility] JESSICA Phillip Unable to fill per ambulatory guidelines. Routing to provider for review. [id number] - [place], [place] - [address] [facility] [address] [place] [id number] E WOUND Kamla Davis RN [facility] 2024-04-04 14:33:44 Refill has been sent to pharmacy on file. Recent Visits Date Type Provider Dept 10/30/23 Office Visit Lucius Fraser MD [facility] 06/26/23 Office Visit Lucius Fraser MD [facility] Showing recent visits within past 540 days with a meds authorizing provider and meeting all other requirements Future Appointments No visits were found meeting these conditions. Showing future appointments within next 150 days with a meds authorizing provider and meeting all other requirements E WOUND Jackie Talamantes RN [facility] 2024-02-26 14:35:04 Marina Martinez is a 63 year old female is calling to speak with someone in the clinic. Pt states she needs a sooner appointment then in July with Dr Fraser. Jammie Damian 02/26/2024 2:35 PM E WOUND Jammie Damian [facility] 2024-01-18 14:28:29 Erroneous encounter E WOUND Chikis Kern [facility] 2024-01-06 09:26:46 Access Center: PSYCHIATRIC Open Encounter Maintenance Chart Review: Patient was seen in Clinic 01/02/2024. Nurse Note: RN closing encounter in EPIC r/t clinical action items completed. Ave Heard RN [facility] Access Center Triage Nurse Ave Heard RN [facility] 2024-01-02 09:54:54 Refill has been sent to pharmacy on file. Future Appointments Date Type Provider Dept 02/26/24 Appointment Lucius Fraser MD [facility] Endocrinology Showing future appointments within next 150 days with a meds authorizing provider and meeting all other requirements Jackie Talamantes RN [facility] 2024-01-02 09:53:51 Available refill at pharmacy, no additional refills authorized at this time. Outpatient Medication Detail Disp Refills Start End JUNI tirzepatide (MOUNJARO) 5 mg/0.5 mL subcutaneous injection 2 mL 3 12/11/2023 -- -- Sig: inject 5 mg under the skin weekly. Sent to pharmacy as: Mounjaro 5 mg/0.5 mL subcutaneous pen injector (tirzepatide) Class: eRX Route: Subcutaneous Order: [id number] Date/Time Signed: 12/11/2023 10:52 E-Prescribing Status: Receipt confirmed by pharmacy (12/11/2023 10:53 AM CDT) Jackie Talamantes RN [facility] 2024-01-01 09:04:23 Spoke with patient she says that the eye she had surgery on is now cloudy like she has a film over it and she is seeing red lines of blood. She says that she can't be seen today because she can't take off of work so I told her if symptoms get worse she needs to go to [place] ED. Patient is able to come tomorrow afternoon so I will have PSS schedule [facility] at [facility] at 3:15pm. I did express to patient that if symptoms worsen she should not wait and needs to go to [place] ED immediately. Patient expressed understanding and said she will monitor. SELMA JOHNSON 01/01/2024 9:13 AM Selma Johnson [facility] 2024-01-01 08:46:26 Marina Martinez is a 63 year old female Patient states she is experiencing blurred/cloudy vision and "red blood lines going down" she states she has to come down this way for an appointment with another provider and is wanting to know if she can come in or what she should do Please assess [phone] (home) Marizol Marin [facility] 2023-12-25 16:46:10 Lvm for pt to return call. Please sched. Pt in [facility] 12/26/2023 when pt calls back or advise ED if that does not work for pt. Margaret Hatfield 12/25/2023 4:46 PM Margaret Hatfield [facility] 2023-12-21 13:00:11 Marina Martinez is a 63 year old female patient calling got sick with vomiting and now right eye has lines of blood that come and go. Please call [phone] Ana Luisa De Jesus [facility] 2023-12-11 10:52:10 Refill has been sent to pharmacy on file. Future Appointments Date Type Provider Dept 02/26/24 Appointment Lucius Fraser MD [facility] Endocrinology Showing future appointments within next 150 days with a meds authorizing provider and meeting all other requirements Jackie Talamantes RN [facility] 2023-12-11 10:43:41 Marina Martinez is a 63 year old female calling for refill on tirzepatide (MOUNJARO) 5 mg/0.5 mL subcutaneous injection [id number] [place] [address] [facility] ([place], [place]) [address] [place] [address] [facility] 2023-11-03 11:35:00 Spoke to pt states she has been using drops QID. No pain just blurry vision. Pt needs to be seen. Scheduling with Dr. Chaidez Yamile11/06 1:15 pm Marie Lopez 11/03/2023 11:35 AM Marie Lopez [facility] 2023-11-03 08:04:51 Marina Martinez is a 63 year old female Pt is calling stating she had surgery on 10/24 and is questioning when she can removing the packing and lay flat. Please advise. [phone] (home) Franko Lees [facility] 2023-10-30 12:00:00 [facility] 2023-10-30 12:00:00 Images from the original note were not included. Venipuncture collection performed by clean technique on the right anticubitus. Total of 1 attempts were made. Slight pressure and a bandage/dressing were applied to the site(s). The patient experienced no complications. The following specimens were processed according to instructions and sent to [facility] laboratories per lab order on 10/30/2023 : LT BLUE SST 1LT GREEN RED LAV 1 PPT DK GREEN (LiHep) DK GREEN (SodH) MANZANO DK BLUE (K2) DK BLUE (S) ACD Blood Culture NIPT/NTD Patient has been identified by and name and was provided with cup, antiseptic towelette, and clean catch instructions. 1 urine specimen(s) sent. Unpreserved 1 Urine Culture Aptima tube Other urine [facility] 2023-10-30 10:28:14 Notes: MUST BE SEEN FOR FURTHER REFILLS Return in about 3 months (around 09/25/2023). Last Refilled: Disp Refills Start End JUNI JARDIANCE 25 mg Tab tablet 90 tablet 0 07/21/2023 -- No Sig: TAKE 1 TABLET BY MOUTH IN THE MORNING Sent to pharmacy as: Jardiance 25 mg tablet (empagliflozin) Class: eRX Route: Oral Order: [id number] Date/Time Signed: 07/21/2023 14:04 E-Prescribing Status: Receipt confirmed by pharmacy (07/21/2023 2:04 PM CDT) Recent Visits Date Type Provider Dept 06/26/23 Office Visit Lucius Fraser MD [facility] 03/15/23 Office Visit Rocio Roberto PA [facility] 01/05/23 Office Visit Rocio Roberto PA [facility] 08/05/22 Office Visit Rocio Roberto PA [facility] Showing recent visits within past 540 days with a meds authorizing provider and meeting all other requirements Today's Visits Date Type Provider Dept 10/30/23 Appointment Lucius Fraser MD [facility] Showing today's visits with a meds authorizing provider and meeting all other requirements Future Appointments No visits were found meeting these conditions. Showing future appointments within next 150 days with a meds authorizing provider and meeting all other requirements [facility] 2023-10-30 09:37:15 Marina Martinez is a 63 year old female Pharmacy is requesting a refill on JARDIANCE 25 mg Tab tablet . Please advise [facility][id number] - [place] - [address] [facility] [employer] [address] [employer] [address] [place] [address] Marah Chatterjee [facility] 2023-10-26 07:38:29 Addendum created 10/26/2338 by Dawood Lewis MD Intraprocedure Meds edited AN-ANESTHESIOLOGY [facility] 2023-10-26 06:51:08 Problem: Falls, Risk of Goal: Absence of falls Outcome: Progressing as expected Problem: Infection Risk Goal: Absence of infection Outcome: Progressing as expected Problem: Bleeding, Risk of Goal: Absence of impaired coagulation signs and symptoms Outcome: Progressing as expected Goal: Absence of active bleeding Outcome: Progressing as expected Problem: Pain Goal: Control of pain at or below patient's documented comfort goal Outcome: Progressing as expected Goal: Reduction in pain sensation Outcome: Progressing as expected Problem: Discharge Planning Goal: Adequate for discharge Outcome: Progressing as expected Goal: Effective communication Outcome: Progressing as expected Zari Varghese RN [facility] 2023-10-25 21:55:08 Patient: Marina Martinez Procedure Summary Date: 10/25/23 Room / Location: [address] Anesthesia Start: 2024 Anesthesia Stop: 2143 Procedures: PARS PLANA VITRECTOMY (Right: Eye) ENDOLASER PHOTOCOAGULATION (Right: Eye) INTRAVITREAL DRUG IMPLANTATION (Right: Eye) Diagnosis: Right retinal detachment (Right retinal detachment [H33.21]) Surgeons: Carmelina Chaidez MD Responsible Provider: Dago Andrade MD Anesthesia Type: MAC ASA Status: 3 Anesthesia Type: MAC Last vitals BP Temp Pulse Resp SpO2 There were no known notable events for this encounter. Anesthesia Post Evaluation Patient location during evaluation: PACU Patient participation: complete - patient participated Level of consciousness: awake and alert Pain management: satisfactory to patient Airway patency: patent Cardiovascular status: acceptable and blood pressure returned to baseline Respiratory status: acceptable Hydration status: acceptable Comments: 136/96, HR 69, SpO2 97% AN-ANESTHESIOLOGY ANESTHESIOLOGIST [facility] 2023-10-25 19:47:17 OPERATIVE REPORT PATIENT: Marina Martinez DATE OF SURGERY: 10/25/2023 PRE-OPERATIVE DIAGNOSIS: Retinal detachment, right eye POST-OPERATIVE DIAGNOSIS: Vitreous hemorrhage, right eye OPERATION PERFORMED: 25-gauge pars plana vitrectomy, right eye Endolaser, right eye Injection of intravitreal bevacizumab, right eye SURGEON: Carmelina Chaidez M.D. [employer] SURGEON: Jhon Ayala M.D. ANESTHESIA: MAC/Retrobulbar (5 cc of 0.5% Marcaine, and 1 cc Hylenex). FINDINGS: Findings detailed in the procedure section. ESTIMATED BLOOD LOSS: None. SPECIMEN: None. IMPLANTS: None COMPLICATIONS: None. JUSTIFICATION: 63 year old year old female was seen in retinal clinic due to decrease in vision (OD) and was presumed to have a retinal detachment on B-scan. Because of the symptoms surgery was dimmed to be the best option. Before surgery, the risks, benefits, prognosis, and alternatives of the procedure were explained in detail to the patient, and all questions were answered. After careful consideration, the patient decided to proceed with surgery, and an informed consent was obtained. PROCEDURE: On the day of surgery, the patient was met in the preoperative holding area, and all questions were answered. The correct patient, eye, and surgery were confirmed by the surgeon, and the correct operative eye was marked. The patient's medical history was reviewed. The operative machinery were confirmed to be in proper working condition. Pupillary dilation was achieved by cyclopentolate and phenylephrine eye drops. Cardiovascular monitoring devices and intravenous line were placed by the Anesthesiology team, and the vital signs were stable. The correct patient, eye, surgery, and allergies were verified with a time-out. The patient was brought to the operating room in stable condition. After induction of sedation by the Anesthesiology team, retrobulbar injection was performed. The patient was placed in the supine position under surgical microscope, and anesthesia care was continued by the Anesthesiology team. A second time-out was done to confirm the correct patient, surgical site, procedure, and allergies with Surgical, Nursing, and Anesthesia staff. The operative eye was prepped with Betadine and draped in the usual sterile fashion for ophthalmic surgery. A stainless steel temporal eyelid speculum was placed. A standard 3-port pars plana vitrectomy was fashioned in this pseudophakic eye using a 25-gauge valved trocar system. The inferotemporal sclerotomy was created with a 25-gauge trocar-cannula at 3.5 mm posterior to the limbus. Infusion line was open and then closed, and the infusion cannula with a 4-mm tip was inserted into the inferotemporal trocar-cannula. The infusion cannula tip was confirmed by direct visualization through the pupil to be in the vitreous cavity in the correct location without overlying retinal or choroidal tissue. Then the infusion was turned on under direct visualization and then secured in place. Superotemporal and superonasal sclerotomies were also created in a similar fashion 3.5 mm posterior to the limbus with a 25-gauge trocar-cannula. Under the AREVS wide-angle viewing system, a vitrector and a light pipe were inserted into the vitreous cavity. A core vitrectomy was performed and heme was evacuated. Inspection of the retina revealed no retinal detachment but there was a large clot attached to an FPE stump in the superior retinal vascular arcade. This clot was removed and FPE stump cauterized with endocautery then largely removed except for a small stump with shave vitrectomy. The peripheral retina was examined 360 degrees with scleral depression and no retinal breaks/ retinal detachments were found. Panretinal photocoagulation was performed in areas of missing PRP, yielding 499 shots mostly inferiorly and superotemporally. The instruments were removed from the eye. The sclerotomies were confirmed to be self sealing. The intraocular pressure remained good. Subconjunctival injection of a block followed by Ancef (cefazolin) and Solu-Medrol (methylprednisolone sodium succinate) was given. The intraocular pressure was good at the end of the case. The eyelid speculum was removed, and the drapes were removed. The skin was cleaned with wet and dry gauzes. Maxitrol ointment (Neomycin, Polymyxin B sulfate, and Dexamethasone) was administered topically, and the eye was patched and shielded with a sterile eye patch and Trivedi shield. The patient tolerated the procedure well without complications and was taken to the post-anesthesia care unit in good condition with stable vital signs. The patient was given instructions to keep the patch on until tomorrow's visit. Dr Chaidez was present and scrubbed throughout the procedure and performed/supervised the entire surgery. Jhon Ayala MD [facility] Retina fellow, Year 1 10/25/2023 7:47 PM I was present and scrubbed throughout the procedure and performed/supervised the entire surgery. Carmelina Chaidez MD 10/26/2023 11:09 AM OPH-OPHTHALMOLOGY STAFF [facility] 2023-10-25 18:43:07 Requested STAT clean on room at this time. Yosef Salazar RN [facility] 2023-10-25 15:54:32 Spoke with the OR Charge nurse, the patient may not go to the OR until after 5pm today. She will need to continue to be NPO at this time. Will notify patient of update on time. Ginger Barnes RN [facility] 2023-10-25 11:33:18 Attempted calling patient to schedule injection appt DFE/Avastin OD, auth is good to go. LVM for patient call clinic back, you may schedule either VTC or UEC for this injection. Anna Marie Millan [facility] 2023-10-25 10:39:29 Report called to Hernandez Barnes RN. Patient transported to ED room 131 via wheelchair by ED PCT. Patient aaox4, breathing even/unlabored, in NAD. Patient stable for transport at this time. Jess Rutherford RN [facility] 2023-10-25 09:14:04 Optho at bedside [facility] 2023-10-25 08:51:55 Name/ MRN / Age / Gender: Marina Martinez, [id number] 63 year old female BMI: Estimated body mass index is 38.17 kg/m? as calculated from the following: Height as of this encounter: 1.549 m (5' 1"). Weight as of this encounter: 91.6 kg (202 lb). Allergies: Ivp dye [iodine and iodide containing products] and Shellfish derived Last Vitals: BP Readings from Last 1 Encounters: 10/25/23 (!) 145/72 Pulse Readings from Last 1 Encounters: 10/25/23 65 SpO2 Readings from Last 1 Encounters: 10/25/23 94% Date of Surgery: 10/25/2023 Surgeon: Reginaldo Pal MD Procedure: PARS PLANA VITRECTOMY (Right) MEMBRANE PEELING (Right) ENDOLASER PHOTOCOAGULATION (Right) INTRAVITREAL DRUG IMPLANTATION (Right) OR Location: [facility] Anesthesia Preop Screen (no physical exam) Copied forward and updated from: 08/2023 Anesthesia Preop: Chart Review [facility] Communication: Marina Martinez is a 63 year old female with PMH Of CAD S/p multiple PCI, last in 2022, DM2 on [facility] presenting for retinal detachment. PONV Risk Factors: female and non-smoker Anesthesia History Anesthesia History Negative (-) Hx of anesthetic complications (-) Hx of PONV (-) Hx of malignant hyperthermia (-) Pt reports no hx of difficult airway Previous Anesthetics/Airways Cardiovascular Comments: METS: 5-6 METS Comments: Can climb 1-2 FOS (-) Chest pain with 1-2 flights of stairs (+) Patient reports cardiac eval within past 5 years Health Care Assistant's name/number: Dany Morel cardiology ph [phone], (+) Hypertension (imdur, metoprolol, losartan) and well controlled (+) Hx of echocardiogram within past 5 years (+) Echocardiogram results (08/2020 TTE Left ventricular systolic function is normal. Ejection Fraction = 60-65%. The left ventricular wall motion is normal. There is mild concentric left ventricular hypertrophy. Diastolic function is pseudonormal.) EF: 60- 65% (+) Hx of cardiac stress test (01/30/2023 Negative) (-) Hx of cardiac cath (-) Angina/Chest Pain Within Last Year (-) Patient does not report prior DE (+) CAD (07/23/2021 MIKHAIL to RCA) and S/P Stent (-) Valvular problems/murmurs Pulmonary Hypertension: 08/2020 RVSP 35-40mmHg. (+) Dysrhythmias (2018 NSVT- med management. states she has not experienced palpitations since starting metoprolol in 2021) and VT (-) Pt reports prior cardiac surgery (-) No cardiovascular devices present (+) PVD (Raynaud's) (-) CHF Pulmonary (-) Patient does not report snoring or stopping breathing during sleep Do you snore loudly? Yes (-) Home O2 (-) COPD (-) Asthma (-) Shortness of breath (-) Tobacco use (-) COVID-19 within the past 6 weeks (-) Influenza within the past 6 weeks (-) Pneumonia within the last 6 weeks (-) Recent bronchitis or URI Neuro/Musculoskeletal (+) TIA (2008, no residuals deficits) (-) CVA(-) Seizures (+) Rheumatoid arthritis (+) Psychiatric history and depression (-) Neuromuscular Disease (-) No chronic pain (+) Obesity GI/Hepatic Negative GI/Hepatic ROS Comments: Hx dysphagia (-) GERD (-) Liver disease Hematology (-) PE/DVT (+) On anti-coagulant therapy Prior Blood Transfusion: No Renal Negative Renal ROS (-) Renal disease (-) Dialysis Skin Negative Skin ROS Endo/Other Comments: On M[place] (+) Diabetes Mellitus and Rx Insulin Average Blood Glucose Range: 80-120 Other Comments: CC: Right eye blurry vision (-) Tobacco use 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 Hold on DOS. Phentermine: Alert [facility] anesthesiologist SGLT2 Inhibitors: "gliflozins" to be held for 3 days prior to elective surgeries GLP1 Agonosit: stop 7 days prior to surgery MAC Cases: Continue taking IMAN inhibitors and ARBs ASA Classification ASA: 3 ASA Comments: HTN, CAD x 7 stents - 06/02 & 09/02, s/p gastric band placed, TIA - no deficits, GERD, DMII Cards - Dr Dias - last visit 2 months ago Labs: Chemistry - CBC - - - - - - - - - - - - eGFR: - Date: - ANC: - Date: - LFTs - Coags AST: - AP: - Prot: - Ca: - PT: - Date: - ALT: - T Dangelo: - Alb: - PTT: - Date: - PO4: - Date: - INR: - Date: - Cardiac Endocrine & other pBNP: - Date: - A1C: - Date: - Trop I: - Date: - POCT A1C: - Date: - CK: - Date: - TSH: - Date: - CKMB: - Date: - FT4: - Date: - LDL: - Date: - Lact: - Date: - Procal: - Date: - Respiratory -|-|-|-|- D-dimer: - ABG Date: - Date: - Miscellaneous Type and Screen: O POSITIVE Antibody: Negative Date: 05/15/2017 POCT : Negative Date: 03/01/2017 Current Medications: No outpatient medications have been marked as taking for the 10/25/23 encounter (Hospital Encounter). Previous Surgeries: Past Surgical History: Procedure Laterality Date ARTHROSCOPY OF JOINT UNLISTED b/L knees SECTION ELBOW BURSECTOMY B/L ENDOLASER PHOTOCOAGULATION Left 02/04/2019 Surgeon: Joana Dean MD; Location: [place] [facility] [place] ENDOLASER PHOTOCOAGULATION Right 09/07/2023 Surgeon: Carmelina Chaidez MD; Location: [facility] OR PRISCILLA LAPAROSCOPIC ADJUSTABLE GASTRIC BANDING 2009 OPEN CHOLECYSTECTOMY PARS PLANA VITRECTOMY Left 02/04/2019 Surgeon: Joana Dean MD; Location: [place] OR Location PARS PLANA VITRECTOMY Right 09/07/2023 Surgeon: Carmelina Chaidez MD; Location: [facility] OR LOCATION PHACOEMULSIFICATION OF CATARACT WITH INTRAOCULAR LENS IMPLANT Right 09/07/2023 Surgeon: Carmelina Chaidez MD; Location: [facility] OR LOCATION STENT 05/12/2021. Cardio-Dr. Cee TOTAL KNEE ARTHROPLASTY Left TOTAL KNEE ARTHROPLASTY Right 05/15/2017 Surgeon: Katia Kamara MD; Location: [facility] OR Location TUBAL LIGATION Anesthesia Physical Exam General no apparent distress and alert and oriented x 3 Neuro/Psych Dental Abdominal (+) obesity Airway Mallampati score:II TM distance:> 5 cm Neck ROM: full Mouth opening:normal Extremity Pulmonary pulmonary exam normal Other Cardiovascular Rhythm:regular Rate: normal Anesthesia Plan ASA Status: 3 Plan discussed during pre-op evaluation: MAC, TIVA and General Anesthetic plan on DOS: MAC Plan to include: IV induction and nasal cannula Anesthesia plan discussed with: patient or quality audit representative Post-Operative Analgesia: routine analgesia & antiemetics Recovery Plan: PACU Additional comments: [facility] 2023-10-25 08:37:41 Routing to [facility] to have pt scheduled per Dr. Mary JOHNSON 10/25/2023 8:38 AM [facility] Selma Johnson [facility] 2023-10-25 07:58:15 [facility] ED Transfer of Care Note. Off-going Physician:David Time of Transfer of Care: 7:58 AM Summary: Marina Martinez is a 63 year old female presenting with chief complaint of retinal detachment, pending surgery by Ophtho. Pending prior to disposition: Admitting / Transfer Service Call Back Current interventions: Medications HYDROcodone-acetaminophen (NORCO 5) tablet 1 tablet (1 tablet Oral Given 10/25/23 0456) Results: Labs Reviewed - No data to display No orders to display Procedures: Procedures Additional Notes: ED Course as of 10/25/23 0758 MonOct 25, 2023 0301 Optho will decide whether to perform surgery now or in the morning, pending disposition, they state this is another retinal detachment [DK] 0054 Consulted Optho about their recs, not requesting any immediate lab work or imaging to be done [DK] 0051 Paged Optho [DK] ED Course User Index [DK] Jass Lang MD Diagnosis/Impression as of 10/25/23 0758 Vision loss of right eye Medical Decision Making Risk Decision regarding hospitalization. Disposition: Consulted to Ophthalmology for further evaluation Social Determinants of Health: None ED Disposition ED Disposition Admit via OR Condition Stable Comment -- [facility] EMERGENCY PHYSICIAN STAFF [facility] 2023-10-25 07:50:53 Spoke with Ophthalmology regarding update on plan of care; Optho resident states she has not spoken with her attending yet regarding admission or d/c from OR; resident states she understands need for ER beds and is requesting to call back around 8:45am. [facility] 2023-10-25 07:00:00 Patient resting in stretcher with call elkins in reach. Patient aaox4, respirations even/unlabored, appears in no acute distress. Patient updated on status, pending plan of care initiated by Optho at this time. [facility] 2023-10-25 06:54:33 Report to Jess OLVERA. T Aydee Roe RN [facility] 2023-10-25 06:08:45 Spoke with optho resident. Per optho they were not planning to admit patient. Optho was planning to get patient from ER and discharge from OR. Optho stated unknown OR time at this point. This RN spoke with charge nurse regarding plan of care. This RN called optho back and informed optho resident that they would either need to provide ER with a timely OR procedure time or admit the patient to their service due to need for ER beds. Charge nurse and MD Hernandez aware of situation. [facility] 2023-10-25 05:56:08 Optho paged at [phone] for admission orders. [facility] 2023-10-25 04:51:31 Patient returned from optho room. [facility] 2023-10-25 04:49:58 Per optho patient okay to have water until 0600. [facility] 2023-10-25 02:54:20 Patient remains in eye room with optho. [facility] 2023-10-25 01:33:11 Patient to eye room with optho. [facility] 2023-10-25 01:30:00 Marina Martinez is a 63 year old female who presents to the ER as a referral from [facility] for optho. Patient is having R eye blindness as well as decreased vision in her L eye. Patient has history of retinal detachment and had a retinal reattachment procedure 5 weeks ago. Patient reports symptom onset this morning. Patient reports having sharp pain that comes and goes. Patient states she has been using her prescribed drops. Patient with history of IDDM. Patient resting in room. All needs met at this time. Bed locked and in lowest position. Call light within reach. RR even and unlabored. VSS. A&Ox4. NAD noted. [facility] 2023-10-25 00:32:50 Marina Martinez is a 63 year old female presents to ED as a referral from [facility] accepted by optho c/o R eye blindness and L eye decreased vision. Patient reports has retinal reattachment x 5 wks ago. Patient Aox4, NAD noted, VSS, RR e/u. Patient to [facility] d/t ED saturation. Optho paged and reports will be at least 1 hr before arrival. Yee Mackay RN [facility] 2023-10-24 23:12:20 Patient transferred to [facility] ED for diagnosis of Blindness of R eye Patient agrees to transfer/admit plan and verbalized understanding of plan of care, family aware of plan Patient awake alert, oriented, resp reg unlabored, skin w/d PIV patent, no s/s infiltration noted, No adverse reaction to medications given while in ED. Report given to [facility] personnel Griffin Sharpe RN [facility] 2023-10-24 22:51:37 New ETA from [facility] is 12 min AT [facility] 2023-10-24 22:48:24 I was told that her vision is totally black. If she still can see light and the vision problem has started with floaters, the she can be seen in clinic in the next few days and does not have to go to the ER. Please schedule her for DFE/Avastin OD. Thanks Carmelina Chaidez MD 10/24/2023 10:49 PM OPH-OPHTHALMOLOGY STAFF [facility] 2023-10-24 22:47:52 Report given to Theo OLVERA at [facility] 2023-10-24 22:08:55 [facility] E[facility] 30 to 35 min per Jazz Tamara Huynh PCT [facility] 2023-10-24 20:46:13 Patient arrived ambulatory to ED c/o unable to see out of right eye since this AM when she woke up. Patient states having eye surgery 3 weeks ago reattaching the retina. Patient used her prescribed gtts. Eye doctor told patient to come to ED. Patient states every once in a while it start hurting with a sharp pain. Adwoa Lovett RN [facility] 2023-10-24 15:58:51 Spoke to pt and she says that her vision OD is completely black. She only sees a little light. Pt denies pain. She said she started to see floaters first and then her vision went black. I told pt that Dr. Chaidez recommended that she go to [facility]. Pt said she didn't have a way to get there today but could probably get a ride tomorrow morning. I told her that the sooner that she could get there the better as this is something that should be seen manju. Pt said she would try to get there today. Ria Kay 10/24/2023 4:02 PM Rai Kay [facility] 2023-10-24 09:49:22 Marina Martinez is a 63 year old female Patient states symptoms are worsening in right eye. She is experiencing blurred vision and possible floaters, long red lines in eye Please assess [phone] (home) Marizol Marin [facility] 2023-10-23 16:29:44 Pt did a lid scrub yesterday and noticed blurry vision after and blurry vision today. Pt has not used tears yet. Denies eye pain, redness, flashes or floaters. Advised pt use AT tonight and tomorrow am. Call back if not improved or if she has new or worsening symptoms. Routing to Dr Mary Montero 10/23/2023 4:32 PM Brittny Montero [facility] 2023-10-23 14:52:30 Marina Martinez is a 63 year old female Patient had surgery on 09/06 States she is experiencing blurred vision in right eye, no pain x last night Please assess [phone] Marizol Marin [facility] 2023-09-27 17:15:52 Clarified and resent Lucius Fraser MD [facility] Division of Endocrinology [facility] 2023-09-27 16:18:53 RENAY 06/26/2023 -Increase insulin by 10% Increase novolog to 10 units tidac Pharmacy is needing clarification about this medication please advise [facility] 2023-09-27 15:47:18 Pharmacy is requesting clarification on the RX for insulin aspart U-100 (NOVOLOG FLEXPEN U-100 INSULIN) 100 unit/mL (3 mL) injection . Please advise [facility] #[id number] - [place], [place] - [address] AT [facility] [email or web address] [address] [place] [id number] Marah Chatterjee [facility] 2023-09-25 14:45:01 Please review and sign if appropriate: Last office visit: 06/26/23 Next office visit: 10/30/23 Requested Prescriptions Pending Prescriptions Disp Refills insulin aspart U-100 (NOVOLOG FLEXPEN U-100 INSULIN) 100 unit/mL (3 mL) injection [Pharmacy Med Name: NOVOLOG FLEXPEN INJ 3ML (ORANGE)] 3 mL 0 Sig: ADMINISTER 8 UNITS THREE TIMES DAILY UNDER THE SKIN BEFORE MEALS. MAX DAILY DOSE OF 30 UNITS Last fill date: 06/26/23 Notes: 1. Type 2 diabetes mellitus with hyperglycemia, with terminal makeup operator insulin use -- A1C 8.9% today , RENAY in 12/2022 was 8.7% Increase novolog to 10 units tidac Iwona Mcdonnell LVN [facility] 2023-09-22 09:49:49 Spoke to pt regarding her message. I let her know that she is 2 weeks po so she should be fine and can resume normal activities. Pt states she is not experiencing any symptoms. I did advise her to use AT's to rinse the eye. Ria Kay 09/22/2023 9:51 AM Ria Kay [facility] 2023-09-22 08:44:33 Patient was scheduled for surgery 09/06. She was due for PO today but is unable to come due to no power. I rescheduled patient however she mentioned getting a little bit of water in eye. No pain or discomfort but wants to know at what point will this be ok. Please advice. Patient can be reached at [phone]. Anna Marie Millan [facility] 2023-09-01 15:11:22 Images from the original note were not included. Procedure is at: [place] [id number]. The Day Surgery is location on the left corner of [facility] closest to the [facility]. On that NW corner you will see a sign that states "Surgery". Please go inside that door and sign in at that desk. Do not eat anything the morning of your procedure starting at Midnight or 8 hours before arrival time, which ever is longer. You may drink water, sprite or gatorade the morning of the procedure, but only up until a certain point. Do not drink anything within 2 hours of your arrival. You may take your medications as instructed below with a sip of water unless otherwise directed by physician. MAC Cases may continue Diuretics. GLP1a medications must be held for 7 days PRIOR to Day of Procedure. Anticoagulants will be per physician Guidance. Report to [facility], [address] [place] [id number], Day Surgery Unit on 09-07-23 [facility] will call you the business day before your procedure to let you know what time to arrive. Please note: You may not travel home alone and that includes in a taxi, bus, or Uber. We must speak to your Responsible Adult before your procedure the morning of your procedure. No eye make-op, no false eye lashes, and nothing in your hair other than an elastic band, if needed. [facility] 2023-08-03 13:06:20 I left patient a voicemail message, informing her of new appointment. Former 2020 [place] patient. Miryam Cordero [facility] 2023-07-31 12:18:35 Marina Martinez is a 63 year old female Patient called to cancel appointment due to no transportation, next available is August, is there something sooner since notes states to return in 1 week? Please advise [phone] (home) Marizol Marin [facility] 2023-07-25 13:37:00 Sending refill for 2.5mg as requested. [facility] 2023-07-25 11:20:14 Marina Martinez is a 63 year old female Pt is calling stating the Mounjaro 5 mg/0.5 mL medication has been on back order at her [facility] pharmacyfor 2 months, she is requesting her Mounjaro 2.5 mg/0.5 mL prescription be sent in instead since her pharmacy has it in stock. Please contact pt at [phone] (home) [id number] - [place], [place] - [address] [facility] [employer] [address] Alex Garcia [facility] 2023-07-21 14:00:58 RENAY 06/26/2023 NOV 10/30/2023 Jardiance 25 mg daily [facility] 2023-06-01 12:38:14 Summary: Called/no answer I have attempted to call but the pt did not answer and the VM is not set up Zoraida Parker [facility] 2023-06-01 07:25:30 Patient can re-schedule EGD, I will have Zoraida nicholson her today. We will need to instruct her on when to hold her anticoagulation prior to procedure. Thank you, Gemini [facility] 2023-05-31 08:10:22 Patient requesting for f/u appt for lapband removal. It appears the EGD was canceled a few times. Does the patient need a f/u appt or just need to reschedule the EGD? Please confirm and advise. Cristina Sy [facility] 2023-05-24 16:09:01 Received Radiology services report from [facility] and have placed in provider's box. Ellie Appiah [facility] 2023-05-08 12:29:38 Marina Martinez is a 63 year old female Pt is stating she is completely out of the pen needles. Please advise [facility][id number] - [place], [place] - [address] [facility] [employer] [address] Y Manzo [facility] 2023-05-08 09:42:32 Refill request: B-D PEN NDL SHRT [id number](07/26) MAICOL QTY:400 E WOUND [facility] 2023-04-12 09:16:49 Attempted to contact pt to schedule labs w/ no answer. VM left w/ clinic call back request. FYI if pt returns call pls schedule lab appt prior to neph appt date. E WOUND Carrie Myles RN [facility] 2023-04-11 09:04:52 Marina Martinez is a 63 year old female Pt. Is sick with COVID and Strep throat. She would like to reschedlue her surgery with Viktoria for a future date. Please reach out to pt. To address her concerns. ' [phone] Y Ramsey [facility] 2023-04-03 10:51:55 RENAY 01/09/23 NOV 06/26/23 Per RENAY note: Please continue Jardiance 25 mg daily INSULIN THERAPY: Long Acting Insulin Inject Tresiba insulin 28 units under the skin once daily. Give half dose if blood sugar 80-120 mg/dL. Do not take if blood sugar is less than 80 mg/dL Fast Acting Insulin Inject Novolog insulin 8 units three times a day before meals, also add the following scale. Half dose if light meals. If you are not going to eat a meal, do not take novolog insulin. Y Brock LVN [facility] 2023-03-31 11:53:39 Marina Martinez is a 62 year old female [facility] is requesting a refill for insulin degludec (TRESIBA FLEXTOUCH U-100) 100 unit/mL (3 mL) InPn, Pt is out of medication, Please advise [facility] #[id number] - [place], [place] - [address] [employer] [address] [phone] E WOUND Carrie Palacios [facility] 2023-03-30 10:23:57 Marina Martinez is a 62 year old female Pt called requesting a refill. She is out of medication. Please advise. [facility] #[id number] - [place], [place] - [address] AT [employer] [facility] [place] & [employer] [facility] [place] [facility] 2023-03-15 15:09:06 Images from the original note were not included. Requesting 90 days Last Refilled: today Notes: [facility] #[id number] - [place], [place] - [address] AT [employer] [facility] [place] & [employer] [facility] [place] Recent Visits Date Type Provider Dept 01/05/23 Office Visit Rocio Roberto PA [facility] 08/05/22 Office Visit Rocio Roberto PA [facility] Showing recent visits within past 540 days with a meds authorizing provider and meeting all other requirements Today's Visits Date Type Provider Dept 03/15/23 Office Visit Rocio Roberto PA [facility] Showing today's visits with a meds authorizing provider and meeting all other requirements Future Appointments No visits were found meeting these conditions. Showing future appointments within next 150 days with a meds authorizing provider and meeting all other requirements Name from pharmacy: AZELASTINE 0.1%(137MCG) NASAL-200SP Will file in chart as: AZELASTINE 137 mcg (0.1 %) nasal spray Possible duplicate: Tomer to review recent actions on this medication Sig: USE 1 SPRAY IN EACH NOSTRIL IN THE MORNING AND IN THE EVENING DIRECTED Disp: 60 mL Refills: Not specified Start: 03/15/2023 Class: eRX Non-formulary For: COVID-19 To pharmacy: Patient requests 90 days supply Last ordered: Today (03/15/2023) by MIAH Vazquez Last refill: 03/15/2023 Rx #: [id number]|0|1 Allergy Mgvvca0203/15/2023 11:45 AM Protocol Details Valid encounter within last 12 months To be filled at: [facility] #[id number] - [place], [place] - [address] AT [facility] [email or web address] [address] [facility] 2021-07-23 10:08:00 [facility] ([facility]) Discharge Summary REPORT#:[id number] REPORT STATUS: Signed DATE:07/23/21 TIME: 1008 PATIENT: MARINA MARTINEZ UNIT #: [id number] ROOM/BED: [place] [address] : [birth year] AGE: 61 SEX: F ATTEND: Inga Robertson MD ADM AUTHOR: Zoraida Felder * ALL edits or amendments must be made on the electronic/computer document * PCP PCP PCP: PCP: No Primary or Family Physician Discharge to: home General Information Problem List/A P: 1. Coronary artery disease 2. Diabetes mellitus 3. Hypertension Date of admission: Observation Start Date: 07/21/21 Date of admission: 07/21/21 Discharge date: 07/23/21 Discharge diagnosis: CAD s/p PCI/Stent to RCA Post procedural left groin hematoma Hospital course: 61 YO female with MHx of severe CAD with prior stents, HTN, HLD, DM, CHF who is here for PCI of the RCA. She underwent PCI with MIKHAIL to RCA by Dr. Mcdonald. She developed post procedural left groin hematoma and had to admitted to CCU for closer monitoring. The patient appear stable. Left groin stable. H/H further drop. 1. CAD [...] TABLET ORAL EVERY 6 HOURS NEEDED. as needed for PAIN NITROGLYCERIN (NITROSTAT) 0.4 MG TAB.SL 0.4 MILLIGRAM SUBLINGUAL EVERY 5 MINUTES NEEDED. as needed for ANGINA Days = 30 Qty = 100 CLOPIDOGREL (PLAVIX) 75 MG TAB 75 MILLIGRAM ORAL DAILY. Days = 30 Qty = 30 [XELJANZ] (Unknown Strength) Unknown Dose ORAL DAILY. CEFDINIR (OMNICEF) 300 MG CAP 300 MILLIGRAM ORAL EVERY 12 HOURS. Comments: JULY 2021 POTASSIUM CHLORIDE ER (KLOR-CON 10) 10 MEQ TAB.SA 10 MILLIEQUIVALENT ORAL DAILY. FUROSEMIDE (LASIX) 40 MG TAB 40 MILLIGRAM ORAL DAILY. predniSONE (predniSONE) 20 MG TAB 20 MILLIGRAM ORAL DAILY. Comments: JULY 2021 ALBUTEROL (VENTOLIN HFA 90 MCG/ACT 18 GM) 90 MCG INHALER 2 PUFF INHALATION RT - EVERY 6 HOURS NEEDED. as needed for PNEUMONIA Start taking the following new medications: ISOSORBIDE MONONITRATE SR (IMDUR) 30 MG TAB.SR.24H 60 MILLIGRAM ORAL DAILY. Days = 30 [...] 98.900 General appearance: alert, awake, oriented, no acute distress, pleasant, conversational Neck: full range of motion, non-tender, no JVD Cardiovascular: normal capillary refill, regular rate rhythm, normal heart sounds, BP/pulses equal bilat. Respiratory: clear to auscultation, no distress, no tenderness, aerating well GI: soft, non-tender, no guarding, no rebound, no distention Genitourinary: not indicated Extremities: moves all Musculoskeletal: full range of motion Neuro/INSPECTOR FIREARMS: alert, oriented X 3 Skin: dry Wound/incision: Location: Left groin hematoma stable Psychiatry: no hallucinations, normal affect, normal judgment/insight, normal mood Results Findings/Data: Laboratory Tests: 07/23 07/23 07/22 07/22 0724 0521 2000 1500 Chemistry POC Glucose (70 - [...] (Auto) (14.0 - 32.0 %) 23.2 17.7 Mcnairy % (Auto) (4.8 - 9.0 %) 10.5 H 9.2 H Eos % (Auto) (0.3 - 3.7 %) 1.3 0.3 Baso % (Auto) (0.0 - 2.0 %) 0.3 0.1 Neut # (Auto) (2.0 - 7.6 x10 3/uL) 5.55 10.65 H Lymph # (Auto) (1.0 - 3.8 x10 3/uL) 2.03 2.62 Mcnairy # (Auto) (0.1 - 0.8 x10 3/uL) [...] # (Man) (0.0 - 0.1 x10 3/uL) 0.00 0.00 07/22 1104 Chemistry POC Glucose (70 - 110 MG/DL) 148 H Results: labs reviewed, vital signs reviewed, vital signs stable Discharge Instructions PCP PCP: PCP: No Primary or Family Physician )( Discharge to: Home/Self Care Discharge Instructions Additional Discharge Routines: Attending Follow-Up, Station Installation Supervisor Follow-Up )( Diet: Diabetic )( Activity: Resume Normal Activity, As Tolerated )( Wound/dressing care: Keep wound clean and dry, OK to shower tomorrow Prescriptions: e-prescribe Follow-up Appointments Attending Physician: Attending Physician: Dany Mcdonald MD Attending physician follow up timeframe: In 1-2 weeks Consulting provider 1: Provider 1: Dany Mcdonald MD Specialty: CardiologyInterventional Consult follow up timeframe: In 1-2 weeks Quality: Discharge Current Medications Current medication review: I attest that the foregoing medication list in the medical record is true, accurate, and complete to the best of my knowledge. at 1013 at 2201 RPT #:[id number] [facility] 2021-07-23 07:32:00 [facility] Card[facility] Progress Note REPORT#:[id number] REPORT STATUS: Signed DATE:07/23/21 TIME: 07 PATIENT: MARINA MARTINEZ UNIT #: [id number] ROOM[facility]BED: [facility] : 64 AGE: 61 SEX: F ATTEND: Inga Robertson MD ADM AUTHOR: Zoraida Felder * ALL edits or amendments must be made on the electronic/computer document * See Addendum Subjective Patient reports: No: complaints, abdominal pain, chest pain, confused, cough, dizziness, fatigue, fever, [...] O2 Flow FiO2 Mean Ox Delivery Rate 07/23 0830 [...] 0000 36.7 66 15 122/58 84 95 07/22 2300 66 33 120/59 85 96 07/22 [...] 36.4 Room air 07/22 1130 68 99 07/22 1115 71 92 07/22 1100 69 137/82 103 86 07/22 1045 66 24 98 07/22 1030 65 16 98 PATIENT WEIGHT: Weight (lb): 218 Weight (oz): 0.59 Weight (kg): 98.900 Medications: Active Meds + DC'd Last 24 Hrs Furosemide (LASIX) 40 MG DAILY PO Isosorbide Dinitrate (ISORDIL) 60 MG DAILY PO (CAN) Isosorbide Mononitrate (Imdur 30 mg) 60 MG [...] Dextrose/Water (DEXTROSE 50% W SYRINGE) 50 ML ASDIR PRN IV (CKD) Ondansetron HCl (ZOFRAN) 4 MG Q4H PRN PRN IV Dextrose/Water (DEXTROSE 50% W SYRINGE) 25 ML ASDIR PRN IV (CKD) Dextrose/Water (DEXTROSE 50% W SYRINGE) 50 ML ASDIR PRN IV (DC) Glucagon (GLUCAGON) 1 MG ASDIR PRN IM Atropine Sulfate (ATROPINE SULFATE 0.1MG/ML SYR) 0.5 MG ASDIR PRN IV Sodium Chloride (SODIUM CHLORIDE 0.9%) 500 ML ASDIR PRN IV Physical Exam General appearance: alert, awake, oriented, no acute distress Neck: non-tender, no JVD Cardiovascular: CV assessment: regular rate and rhythm Respiratory: clear to auscultation, no distress Abdomen: soft, non-tender, normal bowel sounds, no distention Genitourinary: no flank pain, no hilliard Lower extremity: LE assessment: no calf tenderness, no edema Musculoskeletal: normal inspection Neuro/INSPECTOR FIREARMS: alert, oriented X 3, normal speech Wound/incision: Location: left groin access hematoma stable Psychiatry: normal affect, normal judgment/insight, normal mood Results Findings/Data: Laboratory Tests 07/23 07/22 07/22 0751 2000 1104 Chemistry POC Glucose (70 [...] (Auto) (14.0 - 32.0 %) 23.2 17.7 Mcnairy % (Auto) (4.8 - 9.0 %) 10.5 H 9.2 H Eos % (Auto) (0.3 - 3.7 %) 1.3 0.3 Baso % (Auto) (0.0 - 2.0 %) 0.3 0.1 Neut # (Auto) (2.0 - 7.6 x10 3/uL) 5.55 10.65 H Lymph # (Auto) (1.0 - 3.8 x10 3/uL) 2.03 2.62 Mcnairy # (Auto) (0.1 - 0.8 x10 3/uL) 0.92 H 1.37 H Eos # (Auto) (0.0 - 0.2 x10 3/uL) 0.11 0.05 Baso # (Auto) (0.0 - 0.2 x10 3/uL) 0.03 0.02 Abs Immat Gran (auto) (0.00 - 0.03 x10 3/uL) 0.12 H 0.12 H Add Manual Diff NO NO Immature Gran % (0.0 - 2.0 %) 1.4 0.8 Nucleated RBC % (0 - 0 %) 0.0 0.0 Nucleated RBCs # (Man) (0.0 - 0.1 x10 3/uL) 0.00 0.00 Telemetry Interpretation: sinus rhyhm Diagnosis, Assessment Plan Plan discussed with: patient, nurse Free Text DxA P Notes Free Text DxA P Notes: 61 YO female with MHx of severe CAD with prior stents, HTN, HLD, DM, CHF who is here for PCI of the RCA. She underwent PCI with MIKHAIL to RCA by Dr. Mcdonald. She developed post procedural left groin hematoma and had to admitted to CCU for closer monitoring. She also had nonsustained Vtach during recovery. Currently patient is stable. Left [...] with Dr. Mcdonald next week at 1007 at 2201 Addendum 1: 07/23/21 1345 by Zoraida Felder Orthostatic hypotension upon getting up. also with headache. Suspect due to imdur. will DC Imdur and Lasix. Give NS bolus 250-500 ml x1. Hold discharge for now. If BP stable then should be able to go home later this affternoon or tomorrow morning. at 1346 RPT #:[id number] [facility] 2021-07-23 04:31:00 [id number] [place] [id number] PATIENT NAME: MARINA MARTINEZ ADMIT DATE: 07/21/21 ACCOUNT NO: [id number] ROOM NO: [id number] AGE: 61 REPORT TYPE: eECHOCARDIOGRAM REPORT SEX: F ADMITTING PHYSICIAN:Inga Robertson MD ATTENDING PHYSICIAN:Inga Robertson MD *[address] [address] Limited Transthoracic Echocardiogram Patient: Marina Martinez Study Date: 07/21/2021 BP: 105 / 51 Location: [facility] URN: [id number] : 1960 Age: 61 Height: 61 in / 155 cm Gender: F Weight: 204.6 lb / 93 kg BMI/BSA: 38.7 kg/m 2 / 2.05 m 2 *Ordering Physician: * Inga Robertson MD *Interpreting Physician: * Inga Robertson MD *Inspector Firearms: * Danny Dobbins -------- Indications: V TACH. -------- Study data: Transthoracic echocardiogram, limited study. Limited 2D and limited spectral Doppler. Location: Bedside. Patient status: Inpatient. Patient room number: PACU. Study status: Stat. -------- Findings Left ventricle: The cavity size is normal. Wall thickness is mildly increased. Systolic function is normal. The estimated ejection fraction is 60-66%. Pericardium: There is no pericardial effusion. No evidence of pleural fluid accumulation. -------- Measurements PATIENT NAME: MARINA MARTINEZ Left ventricle Value 06/24/2021 Ref IVORY, LAX [...] ED 1.3 cm 1.0 0.6 - 0.9 -------- Conclusions Summary: Left ventricle: The cavity size is normal. Wall thickness is mildly increased. Systolic function is normal. The estimated ejection fraction is 60-66%. Prepared and electronically signed by Inga Robertson MD 07/23/2021 04:31 at 0431 PATIENT NAME: MARINA M[address]INEZ [facility] 2021-07-22 15:06:00 [facility] ([facility]) Critical Care Consult Note REPORT#:[id number] REPORT STATUS: Signed DATE:07/22/21 TIME: 1505 PATIENT: MARINA MARTINEZ UNIT #: [id number] ROOM/BED: [place] [address] : 64 AGE: 61 SEX: F ATTEND: Inga Robertson MD ADM AUTHOR: Kavitha Dior * ALL edits or amendments must be made on the electronic/computer document * History of Present Illness HPI Reason for consult: ICU management Chief complaint: S/p PCI with hematoma Sleeping comfortably, she is easy to arouse. Reports left groin tenderness. On room air saturation 96%. SR 60's. Free Text HPI Notes Free Text HPI Notes: 61 YO female with MHx of severe CAD with prior stents, HTN, HLD, DM, CHF who is here for PCI of the RCA. She underwent PCI with MIKHAIL to RCA on . She developed post procedural left groin hematoma and had to admitted to CCU for closer monitoring and further management. Patient also experienced nonsustained V. tach during the recovery period. History - Adult longitudinal Past medical history: Reports: Coronary artery disease, Diabetes mellitus, Hypertension, Ischemic stroke. Denies: Atrial fibrillation, Congestive heart failure. Past surgical history: Reports: Cholecystectomy. Additional family history: Non contributory Alcohol use: Denies EtOH use Drug use: Benzodiazepines Smoking status: Smoking status for patients 13 years old or older: Never Smoker Medications: Home Medications: Medication Dose/Rte/Freq Days Qty Entered Last Max Daily Dose Reviewed LOSARTAN (COZAAR) 50 MG PO DAILY 05/10/21 07/21/21 Strength: 50 MG TAB 1454 1351 GABAPENTIN (NEURONTIN) 600 MG PO BID 05/10/21 07/21/21 Strength: 600 MG TAB 1450 1351 FOLIC ACID 1 MG PO DAILY 05/10/21 07/21/21 Strength: 1 MG TAB 1450 1351 METOPROLOL SUCC XL 12.5 MG PO BID 05/10/21 07/21/21 (TOPROL XL) 1450 1351 Strength: 25 MG TAB.SR.24H ISOSORBIDE DINITRATE 60 MG PO DAILY 05/10/21 07/21/21 (ISORDIL) 1452 1351 Strength: 40 MG TAB ASPIRIN 81 MG PO DAILY 05/10/21 07/21/21 Strength: 81 MG TAB.CHEW [address] (CYMBALTA) 20 MG PO DAILY 05/10/21 07/21/21 Strength: 20 MG CAP.DR 1452 1351 ATORVASTATIN (LIPITOR) 40 MG PO BEDTIME 05/10/21 07/21/21 Strength: 40 MG TAB 1455 1351 METHOTREXATE 2.5 MG PO Q7D 05/10/21 07/21/21 (RHEUMATREX) 1456 1351 Strength: 2.5 MG TAB INSULIN ASPART (NovoLOG) 05/10/21 07/21/21 Strength: 100 UNIT/ML 1456 1351 VIAL Insulin Degludec 26 UNITS SUBQ DAILY 05/10/21 07/21/21 (TRESIBA FLEXTOUCH 1457 1351 U-100 (3mL)) Strength: 100 UNIT/ML PEN.INJCTR HYDROcodone/APAP 1 TAB PO 05/12/21 07/21/21 (NORCO 10/325) Q6H PRN PRN PAIN 1316 1351 Strength: 10 MG-325 MG TAB [XELJANZ] (Unknown Dose) PO 06/21/21 07/21/21 Strength: (Unknown DAILY 1440 1351 Strength) CEFDINIR (OMNICEF) 300 MG PO Q12H 07/19/21 07/21/21 Strength: 300 MG CAP 1610 1351 POTASSIUM CHLORIDE ER 10 MEQ PO DAILY 07/19/21 07/21/21 (KLOR-CON 10) 1611 1351 Strength: 10 MEQ TAB.SA FUROSEMIDE (LASIX) 40 MG PO DAILY 07/19/21 07/21/21 Strength: 40 MG TAB 1611 1351 predniSONE 20 MG PO DAILY 07/19/21 07/21/21 Strength: 20 MG TAB 1612 1351 ALBUTEROL 2 PUFF INH 07/19/21 07/21/21 (VENTOLIN HFA 90 RTQ6H PRN PRN 1612 1351 MCG/ACT 18 GM) PNEUMONIA Strength: 90 MCG INHALER NITROGLYCERIN 0.4 MG SL 30 100 05/13/21 07/21/21 (NITROSTAT) Q5M PRN PRN ANGINA 1740 1351 Strength: 0.4 MG TAB.SL CLOPIDOGREL (PLAVIX) 75 MG PO DAILY 30 30 05/13/21 07/21/21 Strength: 75 MG TAB 1745 1351 Current Hospital Medications: Autonomic Drugs Sig/Nandini Start time Last Medication Dose Route Stop Time Status Admin Atropine Sulfate 0 .STK-MED ONE 07/21 1640 DC (ATROPINE SULFATE IV 0.1MG/ML SYR) Atropine Sulfate 0.5 MG ASDIR PRN 07/21 1530 AC (ATROPINE SULFATE IV 08/20 1529 0.1MG/ML SYR) Atropine Sulfate 0 .STK-MED ONE 07/21 1519 DC 07/21 (ATROPINE SULFATE IV 1521 0.1MG/ML SYR) [...] Atorvastatin Calcium 40 MG BEDTIME 07/22 2100 AC (LIPITOR) PO 08/21 2059 Nitroglycerin 0.4 MG Q5M PRN PRN 07/22 1030 AC (NITROSTAT) SL 08/21 1029 Metoprolol Succinate 12.5 MG BID 07/22 1029 AC 07/22 (TOPROL XL) PO 08/21 1028 1050 Losartan Potassium 50 MG DAILY 07/22 1026 AC 07/22 (COZAAR) PO 08/21 1025 1049 Central Nervous [...] 07/21 1900 DC 07/21 (MAGNESIUM SULFATE IV 07/219 1927 2GM/SWFI 50ML) Hydrocodone Bitart/ 1 TAB ONCE ONE 07/21 181 DC 07/21 Acetaminophen PO 07/21 (NORCO 5/325) Morphine Sulfate 2 MG ONCE ONE 07/21 181 DC 07/21 (morphine SULFATE) IV 07/21 Hydrocodone Bitart/ 0 .STK-MED ONE 07/21 181 DC Acetaminophen .ROUTE (NORCO 5/325) Morphine Sulfate 0 [...] 08/20 1644 SYRINGE) Sodium Chloride 1,000 ML .[id number] ONE 07/21 1530 DC 07/21 (SODIUM CHLORIDE IV 07/22 0449 1642 0.9%) Sodium Chloride 500 ML ASDIR PRN 07/21 1530 AC (SODIUM CHLORIDE IV 08/20 1529 0.9%) Gastrointestinal Drugs Sig/Nandini Start time Last Medication Dose Route Stop Time Status Admin Ondansetron HCl 4 MG Q4H PRN PRN 07/21 1815 AC 07/21 (ZOFRAN) IV 08/20 Ondansetron HCl 0 .STK-MED ONE 07/21 1812 DC (ZOFRAN) .ROUTE Hormones And Synthetic Substit Sig/Nandini Start time Last Medication Dose Route Stop Time Status Admin Insulin Human Lispro 0 AC HS 07/22 0730 AC (HUMALOG) SUBQ 08/21 0729 Insulin Human Regular 100 UNIT ASDIR 07/21 2130 DC 07/21 (HumuLIN R) IV 08/20 2128 2231 Sodium Chloride 99 ML (SODIUM CHLORIDE 0.9%) Insulin Human Lispro 0 AC HS 07/21 2100 DC 07/21 (HUMALOG) SUBQ 08/20 Insulin Human Lispro 0 AC HS 07/21 2099 DC (HUMALOG) SUBQ 08/20 2058 Insulin Human Lispro 0 .STK-MED ONE 07/21 1930 DC (HUMALOG) SUBQ Insulin Human Lispro 10 UNIT ONCE ONE 07/21 1929 DC 07/21 (HUMALOG) SUBQ 07/21 Glucagon 1 MG ASDIR PRN 07/21 1645 AC (GLUCAGON) IM 08/20 164 Insulin Human Lispro 0 .STK-MED ONE 07/21 1641 DC (HUMALOG) SUBQ Skin And Mucous Membrane [...] swelling. Allergy/Immun: Denies: allergic reaction, anaphylaxis, hives, itching, sneezing. Eyes: Denies: redness, discharge, visual loss/blurred. ENT: Denies: nasal congestion, sore throat, throat pain. Respiratory: Denies: productive cough (sputum), SOB. Cardiovascular: Reports: chest pain. Denies: ELLIS (dyspnea on exertion), edema, palpitations. GI: Denies: abdominal pain, nausea, vomiting. : Denies: dysuria, flank pain, frequency, hematuria. Musculoskeletal: Reports: extremity pain, extremity swelling. Heme: Reports: bruising, petechiae. Denies: adenopathy, bleeding. Endocrine: Denies: polydipsia, polyphagia, polyuria, weight gain, weight loss. Neuro: Denies: gait problem, headache, lightheaded, numbness, syncope. Psych: Denies: change in mental status. Objective Physical Exam Medications: Active Meds + DC'd Last 24 Hrs Furosemide (LASIX) 40 MG DAILY PO Isosorbide Dinitrate (ISORDIL) 60 MG DAILY PO (CAN) Isosorbide Mononitrate (Imdur 30 mg) 60 MG [...] Dextrose/Water (DEXTROSE 50% W SYRINGE) 50 ML ASDIR PRN IV (CKD) Insulin Human Regular (HumuLIN R) 100 UNIT ASDIR IV (DC) Sodium Chloride (SODIUM CHLORIDE 0.9%) 99 ML Insulin Human Lispro (HUMALOG) 0 AC HS SUBQ (DC) Insulin Human Lispro (HUMALOG) 0 AC HS SUBQ (DC) Insulin Human Lispro (HUMALOG) 0 .STK-MED ONE SUBQ (DC) Insulin Human Lispro (HUMALOG) 10 UNIT ONCE ONE SUBQ (DC) Magnesium Sulfate (MAGNESIUM SULFATE 2GM/SWFI 50ML) 50 ML ONCE ONE IV ( DC) Hydrocodone Bitart/Acetaminophen (NORCO 5/325) 1 TAB ONCE ONE PO (DC) Morphine Sulfate (morphine SULFATE) 2 MG ONCE ONE IV (DC) Ondansetron HCl (ZOFRAN) 4 MG Q4H PRN PRN IV Hydrocodone Bitart/Acetaminophen (NORCO 5/325) 0 .STK-MED ONE .ROUTE (DC ) Morphine Sulfate (morphine SULFATE) 0 .STK-MED ONE .ROUTE (DC) Ondansetron HCl (ZOFRAN) 0 .STK-MED ONE .ROUTE (DC) Dextrose/Water (DEXTROSE 50% W SYRINGE) 25 ML ASDIR PRN IV (CKD) Dextrose/Water (DEXTROSE 50% W SYRINGE) 50 ML ASDIR PRN IV (DC) Glucagon (GLUCAGON) 1 MG ASDIR PRN IM Insulin Human Lispro (HUMALOG) 0 .STK-MED ONE SUBQ (DC) Atropine Sulfate (ATROPINE SULFATE 0.1MG/ML SYR) 0 .STK-MED ONE IV (DC) Clopidogrel Bisulfate (CLOPIDOGREL BISULFATE) 0 .STK-MED ONE .ROUTE (DC) Atropine Sulfate (ATROPINE SULFATE 0.1MG/ML SYR) 0.5 MG ASDIR PRN IV Sodium Chloride (SODIUM CHLORIDE 0.9%) 1,000 ML .[id number] ONE IV (DC) Sodium Chloride (SODIUM CHLORIDE 0.9%) 500 ML ASDIR PRN IV Atropine Sulfate (ATROPINE SULFATE 0.1MG/ML SYR) 0 .STK-MED ONE IV (DC) General appearance: alert, awake, oriented, no acute distress Head/Eyes: atraumatic, normocephalic ENT: moist mucosal membranes Neck: full range of motion, non-tender, supple/no meningismus, no masses or swelling Cardiovascular: normal capillary refill, normal heart sounds, normal S1/S2 Respiratory: aerating well, clear to auscultation Gastrointestinal: tolerating clear liquids Abdomen: obese, soft, non-tender Abdomen quadrants: LLQ normal bowel sounds, LUQ normal bowel sounds, RLQ normal bowel sounds, RUQ normal bowel sounds Genitourinary: no bladder distention, no flank pain Extremities: decreased range of motion, edema, pedal pulses, Left groin hematona , soft, no change in size Vascular pulse assessment: palpated: R posterior tibialis, L posterior tibialis, R dorsalis pedis, L dorsalis pedis, R radial, L radial. Neuro/INSPECTOR FIREARMS: alert, oriented X 3, normal speech, no motor deficits, no sensory deficits Wound/incision: Location: Left groin sx site. Psychiatry: normal affect, normal mood Results Findings/Data: Laboratory Tests 07/22/21 0440: [Embedded Image Not Available] 07/21/21 1930: [Embedded Image Not Available] 07/21/21 1805: [Embedded Image Not Available] Laboratory Tests 07/22 [...] 110 MG/DL) 148 H 106 118 H 170 H Calcium (8.0 - 10.5 mg/dL) 8.6 Magnesium (1.80 - 2.40 mg/dL) 2.54 H 07/22 07/22 07/22 07/22 07/21 0300 0156 0101 0003 2256 Chemistry POC Glucose (70 - 110 MG/DL) 219 H 256 H 307 H 333 H 328 H 07/21 1912 1805 1559 Chemistry Sodium (134 - 147 [...] 32.0 %) 14.2 10.4 L 12.3 L Mcnairy % (Auto) (4.8 - 9.0 %) 7.7 2.2 L 2.4 L Eos % (Auto) (0.3 - 3.7 %) 0.0 L 0.0 L 0.1 L Baso % (Auto) (0.0 - 2.0 %) 0.2 0.1 0.2 Neut # (Auto) (2.0 - 7.6 x10 3/uL) 9.86 H 9.47 H 9.01 H Lymph # (Auto) (1.0 - 3.8 x10 3/uL) 1.83 1.14 1.32 Mcnairy # (Auto) (0.1 - 0.8 x10 3/uL) 0.99 H 0.24 0.26 Eos # (Auto) (0.0 - 0.2 x10 3/uL) 0.00 0.00 0.01 Baso # (Auto) (0.0 - 0.2 x10 3/uL) 0.02 0.01 0.02 Abs Immat Gran (auto) (0.00 - 0.03 x10 3/uL) 0.19 H 0.15 H 0.13 H Add Manual Diff NO NO NO Immature Gran % (0.0 - 2.0 %) 1.5 1.4 1.2 Nucleated RBC % (0 - 0 %) 0.0 0.0 0.0 Nucleated RBCs # (Man) (0.0 - 0.1 x10 3/uL) 0.00 0.00 0.00 Radiology data: Recent Impressions: ULTRASOUND - DUP LE ART UNI/LTD 07/22 1939 Report Impression - Status: SIGNED Entered: 07/21/20212020 IMPRESSION: 9 cm soft tissue hematoma in the left groin. Impression By: [email or web address] - Mukesh Call M.D. Diagnosis, Assessment Plan Diagnosis, Assessment Plan Consultants: cardiology, critical/master steam yacht, hospitalist Plan discussed with: patient, collaborating MD, nurse, interdisc care team, pharmacy/pharmacist Critical care time: Minutes: 40 Free text DxA P: 61 YO female with MHx of severe CAD with prior stents, HTN, HLD, DM, CHF who is here for PCI of the RCA. She underwent PCI with MIKHAIL to RCA on . She developed post procedural left groin hematoma and had to admitted to CCU for closer monitoring and further management. Apparently the patient also experienced nonsustained V. tach during the recovery period. 07/22. Patient is awake and oriented x3. No arrrythmias noted, she is NSR 60s. On room air with stable saturation. Left groin with extensive brusing but soft, warm with palpable pulses. Reports tenderness. Assessment/plan 1. CAD status post PCI of the RCA 2. Left groin hematoma 3. History of hypertension 4. DM2 Continue neurovascular checks per unit protocol We will continue to trend CBCs results and will transfuse if hemoglobin less than 7 or if patient develops S/S of bleeding. Repeat hemoglobin this afternoon. US showed soft tissue hematoma, no pseudoaneurysm. Cardiology following. On DAPT, statin and beta-renaldo. Obtain orthostatic vital signs Diet as tolerated. Glycemic control with ISS Monitor renal indicis. I/0s. Replete electrolytes as needed DVT prophylaxis GI prophylaxis not indicated: Moblize patient has tolerated. Out of bed to chair I spent 35 minutes of critical care reviewing labs, imaging and discussing plan of care with critical care master steam yacht. at 1543 RPT #:[id number] [facility] 2021-07-22 10:28:00 [facility] ([facility]) History Physical - Adult REPORT#:[id number] REPORT STATUS: Signed DATE:07/22/21 TIME: 1028 PATIENT: MARINA MARTINEZ UNIT #: [id number] ROOM/BED: [place] [id number] : [birth year] AGE: 61 SEX: F ATTEND: Inga Robertson MD ADM AUTHOR: Zoraida Felder AGACNP * ALL edits or amendments must be made on the electronic/computer document * History of Present Illness HPI Chief complaint: Left groin tenderness PCP: PCP: No Primary or Family Physician HPI: 61 YO female with MHx of severe CAD with prior stents, HTN, HLD, DM, CHF who is here for PCI of the RCA. She underwent PCI with MIKHAIL to RCA by Dr. Mcdonald. She developed post procedural left groin hematoma and had to admitted to CCU for closer monitoring. She also had nonsustained Vtach during recovery. Currently patient is stable. Left groin hematoma about the same size as yesterday. Hgb preop was 11.7, down to 8.7 this morning. Informant/historian: patient History Past medical history: Reports: Coronary artery disease, Diabetes mellitus, Hypertension, Ischemic stroke. Denies: Atrial fibrillation, Congestive heart failure. Past surgical history: Reports: Cholecystectomy. Additional family history: Non contributory Alcohol use: Denies EtOH use Drug use: Benzodiazepines Smoking status: Smoking status for patients 13 years old or older: Never Smoker Medication/Allergy-Vaccine Hx Allergies: Coded Allergies: iodine (Intermediate, HIVES 07/21/21) Converted from Ingredient Allergy: IODINE Review of Systems Constitutional: Denies: fatigue. Respiratory: Denies: SOB. Cardiovascular: Denies: chest pain. GI: Denies: abdominal pain, nausea, vomiting. Neuro: Denies: dizziness, syncope. Physical Exam VS/I O Vital Signs: Date Time Temp Pulse Resp B/P B/P Pulse O2 O2 Flow FiO2 Mean Ox Delivery Rate 07/22 1230 67 24 99 07/22 1201 66 18 140/60 87 98 07/22 1145 67 19 98 07/22 1130 36.4 Room air 07/22 1130 68 99 07/22 1115 71 92 07/22 1100 69 137/82 103 86 07/22 1045 66 24 98 07/22 1030 65 16 98 05/12 1001 74 [...] 05/12 0000 59 25 113/55 79 95 05/11 2300 62 23 112/53 77 92 05/ [...] 0.59 Weight (kg): 98.900 General appearance: obese, alert, awake, oriented, no acute distress, pleasant, conversational, mental status normal Neck: full range of motion, non-tender, no JVD Cardiovascular: normal capillary refill, regular rate rhythm, normal heart sounds Respiratory: clear to auscultation, no distress, no tenderness Abdomen/GI: active bowel sounds, soft, non-tender Extremities: moves all, no edema-all extremities, normal capillary refill, normal range of motion, normal sensory Musculoskeletal: full range of motion, normal inspection, no CVA tenderness Neuro/INSPECTOR FIREARMS: alert, oriented X 3, normal gait Skin: pale, dry, left groin access with hematomaa Psychiatry: no hallucinations, normal affect, normal judgment/insight, normal mood Results Findings/Data: Laboratory Tests: 07/22 07/22 07/22 07/22 07/22 1104 0546 6459 0028 9523 Chemistry Sodium (134 - 147 mEq/L) 135 [...] 110 MG/DL) 148 H 106 118 H 170 H Calcium (8.0 - 10.5 mg/dL) 8.6 [...] % (Auto) (14.0 - 32.0 %) 14.2 Mcnairy % (Auto) (4.8 - 9.0 %) 7.7 Eos % (Auto) (0.3 - 3.7 %) 0.0 L Baso % (Auto) (0.0 - 2.0 %) 0.2 Neut # (Auto) (2.0 - 7.6 x10 3/uL) 9.86 H Lymph # (Auto) (1.0 - 3.8 x10 3/uL) 1.83 Mcnairy # (Auto) (0.1 - 0.8 x10 3/uL) [...] H 333 H 328 H 07/21 191 180 Chemistry Sodium (134 - 147 mEq/L) 133 [...] - 32.0 %) 10.4 L 12.3 L Mcnairy % (Auto) (4.8 - 9.0 %) 2.2 L 2.4 L Eos % (Auto) (0.3 - 3.7 %) 0.0 L 0.1 L Baso % (Auto) (0.0 - 2.0 %) 0.1 0.2 Neut # (Auto) (2.0 - 7.6 x10 3/uL) 9.47 H 9.01 H Lymph # (Auto) (1.0 - 3.8 x10 3/uL) 1.14 1.32 Mcnairy # (Auto) (0.1 - 0.8 x10 3/uL) [...] in the left groin. Impression By: [email or web address] Virgil Call M.D. Results: labs reviewed, vital signs reviewed Diagnosis, Assessment Plan Problem List/A P: 1. Coronary artery disease 2. Diabetes mellitus 3. Hypertension Plan discussed with: patient, nurse Free Text DxA P Notes Free Text DxA P Notes: 61 YO female with MHx of severe CAD with prior stents, HTN, HLD, DM, CHF who is here for PCI of the RCA. She underwent PCI with MIKHAIL to RCA by Dr. Mcdonald. She developed post procedural left groin hematoma and had to admitted to CCU for closer monitoring. She also had nonsustained Vtach during recovery. Currently patient is stable. Left [...] then will DC home tomorrow at [address] [facility] #:[id number] [facility] 2021-07-21 15:52:00 [id number] [address] PATIENT NAME: MARINA MARTINEZ ADMIT DATE: 07/21/21 ACCOUNT NO: [id number] ROOM NO: [id number] AGE: 61 REPORT TYPE: [...] x 12 mm Megatron drug-eluting stent for the ostium. INDICATION: Known severe coronary artery disease, status post intervention that was complicated with a dissection of the RCA, left to heal and brought back today to complete the PCI. SURGEON: CARBON CAPTURE POWER PLANT MANAGER: ANESTHESIA: ACCESS: Left femoral artery, 6-Niuean closed with Perclose. TOTAL SEDATION TIME: 45 minutes. Used fentanyl and Versed. COMPLICATIONS: None. BLEEDING: Less than 10 mL. TOTAL CONTRAST USED: 35 to 40 mL. DESCRIPTION OF PROCEDURE: After risks, benefits, and alternatives were explained, the patient agreed to proceed and signed informed consent. The patient was brought to the cardiac catheterization laboratory, prepped and draped in usual sterile fashion. I accessed the left femoral artery using ultrasound guidance of fluoroscopy and micropuncture, placed 6-Niuean Milano sheath and took 6-Niuean JR4 guide into the aortic root and I engaged the RCA and took standard views, took a Runthrough through the true lumen, avoiding the dissection plane and placed a wire distally in the RCA. Then, I took a 3.0 x 38 mm Synergy drug-eluting stent overlapped with the mid RCA stent as an angioplasty was done on this patient about 3 to 4 weeks ago and the lesions were prepped. Stent was deployed successfully, which contained the dissection very well and had LO 3 flow in the vessel and then I took another 3.5 x 12 mm Megatron Synergy drug-eluting stent for the ostium overlapped to the proximal PATIENT NAME: MARINA MARTINEZ stent and postdilated to high pressure using a 3.5 x 20 NC balloon. Final angiogram was satisfactory. LO-3 flow. We removed the guide and the sheath and Perclose was used for closure with good hemostasis. CONCLUSION: Successful PCI of the RCA and dissection was completely sealed with LO 3 flow in the vessel and 0% residual stenosis. PLAN: Continue aspirin and Plavix. Follow up with me in the office in 4 weeks. Dictated By: Dany Mcdonald MD WT: OP:ARELY/CHRISTINA/JULIO C Conf#: [id number]#: [id number] Authenticated by Dany Mcdonald MD On 08/02/2021 11:35:28 AM at 1135 PATIENT NAME: MARINA MARTINEZ [facility] 2021-07-19 15:12:00 [id number] [place] [id number] PATIENT NAME: MARINA MARTINEZ ADMIT DATE: ACCOUNT NO: [id number] ROOM NO: AGE: 61 REPORT TYPE: eELECTROCARDIOGRAM REPORT SEX: F ADMITTING PHYSICIAN: ATTENDING PHYSICIAN:Dany Mcdonald MD Order: [id number] Test Reason : PREOP Test Date/Time Stamp: MonJul 19 2021 15:12:45 Blood Pressure : / mmHG Vent. Rate : 071 BPM Atrial Rate : 071 BPM P-R Int : 140 ms QRS Dur : 080 ms QT Int : 400 ms P-R-T Axes : 074 058 079 degrees QTc Int : 434 ms Sinus rhythm with premature atrial complexes Nonspecific ST abnormality Abnormal ECG PRE_OP Confirmed by WILLIAM FRIAS MD ([id number]) on 07/19/2021 4:08:53 PM Referred By: Dany Mcdonald Confirmed by:WILLIAM FRIAS MD at 1608 PATIENT NAME: MARINA MARTINEZ [facility] 2021-06-30 10:37:00 [facility] ([facility]) Hospitalist Discharge Summary REPORT#:[id number] REPORT STATUS: Signed DATE:06/30/21 TIME: 1037 PATIENT: MARINA MARTINEZ UNIT #: [id number] ROOM/BED: 3349-1 : 64 AGE: 61 SEX: F ATTEND: lAejandra Zeng MD ADM AUTHOR: Agnes Almeida MD * ALL edits or amendments must be made on the electronic/computer document * General Information Date of admission: [...] Anemia hemoglobin 6.7, s/p 1 unit of blood ........ hypomagnesia magnesium replaced ........ complaining of sore shortness of breath but able to maintain saturation above 90% on room air ......... labs in a.m. 06/27.... Hemoglobin improved 7.6 today ........ magnesium replaced ........ vitals stable 06/28- she feel well -- H H-- stable -- continue monitor as cardiology and CV surgeon 06/29-- she is doing well -- H H -- stable -- home soon ok with cardiology and CV surgeon she feel well . she is stable to discharge home . she will follow up with cardiology and attending in 2 weeks Consultants: cardiology, cardiovascular surgery, critical/master steam yacht, hospitalist Free Text DxA P Notes Free [...] Anemia hemoglobin 6.7, s/p 1 unit of blood ........ hypomagnesia magnesium replaced ........ complaining of sore shortness of breath but able to maintain saturation above 90% on room air ......... labs in a.m. 06/27.... Hemoglobin improved 7.6 today ........ magnesium replaced ........ vitals stable 06/28- she feel well -- H H-- stable -- continue monitor as cardiology and CV surgeon 06/29-- she is doing well -- H [...] TABLET ORAL EVERY 6 HOURS NEEDED. as needed for PAIN NITROGLYCERIN (NITROSTAT) 0.4 MG TAB.SL 0.4 MILLIGRAM SUBLINGUAL EVERY 5 MINUTES NEEDED. as needed for ANGINA Days = 30 [...] Method General appearance: alert, awake, oriented, no acute distress Head/Eyes: atraumatic, normal conjunctiva/sclera, normal eyelids/periorb., normocephalic Neck: full range of motion, non-tender, normal thyroid, no JVD Cardiovascular: normal heart sounds, regular rate rhythm Respiratory: aerating well, clear to auscultation Abdomen: non-tender, normal bowel sounds, soft, no distention Extremities: moves all, no calf tenderness, no edema Neuro/INSPECTOR FIREARMS: alert, oriented X 3, CNII-XII intact, normal [...] % (Auto) (14.0 - 32.0 %) 17.5 Mcnairy % (Auto) (4.8 - 9.0 %) 14.7 H Eos % (Auto) (0.3 - 3.7 %) 3.3 Baso % (Auto) (0.0 - 2.0 %) 0.3 Neut # (Auto) (2.0 - 7.6 x10 3/uL) 4.62 Lymph # (Auto) (1.0 - 3.8 x10 3/uL) 1.28 Mcnairy # (Auto) (0.1 - 0.8 x10 3/uL) [...] Discharge Instructions PCP Discharge to: Home [facility] Additional Discharge Routines: Attending Follow-Up, Station Installation Supervisor Follow-Up Diet: Cardiac Activity: As Tolerated Follow-up [...] Heparin Sodium/ 1,000 ML .STK-MED ONE 06/24 1641 DC 06/24 Sodium Chloride IV 1705 Insulin Human Lispro 0 AC HS 06/24 1630 AC SUBQ 07/24 1629 Methylprednisolone 0 .STK-MED ONE 06/24 1629 DC 06/24 Sodium Succinate IV 1705 Norepinephrine 250 ML .STK-MED ONE 06/24 1626 DC 06/24 Bitartrate IV 1705 Phenylephrine HCl 0 .STK-MED ONE 06/24 1607 DC 06/24 I-CHAVEZ 1705 Fentanyl Citrate 0 .STK-MED ONE 06/24 1533 DC 06/24 .ROUTE 1539 Heparin Sodium/ 500 ML .STK-MED ONE 06/24 1533 DC 06/24 Sodium Chloride IV 1539 Lidocaine HCl 0 .STK-MED ONE 06/24 1533 DC 06/24 .ROUTE 1539 Midazolam HCl 0 .STK-MED ONE 06/24 1532 DC 06/24 .ROUTE 1539 Dextrose/Water 25 ML ASDIR PRN [...] Potassium 50 MG DAILY 06/24 0900 AC 06/24 PO 07/24 0859 0916 Sodium Chloride [...] Lispro 0 AC HS 06/23 1800 DC 06/24 SUBQ 07/23 1749 0916 Dextrose/Water 25 ML ASDIR PRN 06/23 1730 DC IV 07/23 1729 Dextrose/Water 50 ML ASDIR PRN 06/23 1730 DC IV 07/23 1729 Glucagon 1 MG ASDIR PRN 06/23 1730 AC IM 07/23 1729 Heparin Sodium 0 ASDIR PRN 06/23 1730 AC IV 07/23 1729 Heparin Sodium 500 ML ASDIR 06/23 1730 CKD 06/24 (Porcine) IV 07/23 1729 0301 Hydrocodone Bitart/ 1 TAB Q6H PRN PRN 06/23 1730 AC Acetaminophen PO 06/28 1729 Morphine Sulfate 4 MG Q2H PRN PRN 06/23 1730 AC 06/24 IV 06/28 1729 0634 Ondansetron HCl 4 MG Q8H PRN PRN 06/23 1730 AC IV 07/23 1729 Sodium Chloride 1,000 ML .Q10H 06/23 1730 AC 06/24 IV 07/23 1729 1436 Atropine Sulfate 0.5 MG ASDIR PRN 06/23 1430 DC IV 06/24 1423 Heparin Sodium 12,500 UNIT DAILY PRN PRN 06/23 1430 AC Dextrose/Water 500 ML I-CATHETER 07/23 1429 Heparin Sodium/ 500 ML DAILY PRN PRN 06/23 1430 AC 06/23 Dextrose I-CATHETER 07/23 1429 2302 Sodium Chloride 1,000 ML .[id number] 06/23 1430 DC 06/23 IV 06/24 0349 [...] ANGINA CLOPIDOGREL (PLAVIX) 75 MG PO DAILY at 1041 RPT #:[id number] [facility] 2021-06-30 08:51:00 [facility] Progress Note REPORT#:[id number] REPORT STATUS: Signed DATE:06/30/21 TIME: 0851 PATIENT: MARINA MARTINEZ UNIT #: [id number] ROOM/BED: 3349-1 : 64 AGE: 61 SEX: F ATTEND: Alejandra Zeng MD ADM AUTHOR: Zoraida Felder AGACNP * ALL edits or amendments must be made on the electronic/computer document * Subjective Patient reports: No: complaints. [...] 70 18 104/51 0.0 100 Room air 06/29 2008 72 17 98/47 68 99 06/29 2008 36.5 73 18 98/47 0.0 95 Room [...] Water (WATER FOR INJECTION) 5 ML ASDIR PRN IV Potassium Chloride (POTASSIUM CHLORIDE 20MEQ TAB.ER) 40 MEQ DAILY PRN PRN PO Lidocaine (LIDODERM) 1 PATCH DAILY TOPICAL Insulin Human Lispro (HUMALOG) 0 AC HS SUBQ Dextrose/Water (DEXTROSE 50% W SYRINGE) 25 ML ASDIR PRN IV (CKD) Dextrose/Water (DEXTROSE 50% W SYRINGE) 50 ML ASDIR PRN IV (CKD) Glucagon (GLUCAGON) 1 MG ASDIR PRN IM Aspirin (ASPIRIN) 81 MG DAILY PO Clopidogrel Bisulfate (Plavix) 75 MG DAILY PO Duloxetine HCl (CYMBALTA) 20 MG DAILY PO Losartan Potassium (COZAAR) 50 MG DAILY PO Sodium Chloride (SODIUM CHLORIDE 0.9%) 500 ML DAILY MISC Atorvastatin Calcium (LIPITOR) 40 MG BEDTIME PO Gabapentin (NEURONTIN) 600 MG BID PO Insulin Glargine (Lantus/Semglee) 25 UNIT BEDTIME SUBQ Metoprolol Succinate (TOPROL XL) 12.5 MG BID PO Glucagon (GLUCAGON) 1 MG ASDIR PRN IM Ondansetron HCl (ZOFRAN) 4 MG Q8H PRN PRN IV Physical Exam General appearance: alert, awake, oriented, no acute distress Neck: non-tender, no JVD Cardiovascular: CV assessment: regular rate and rhythm Respiratory: decreased breath sounds, on oxygen, no distress Abdomen: non-tender Genitourinary: no flank pain, no hilliard Lower extremity: LE assessment: no edema Musculoskeletal: normal inspection Neuro/INSPECTOR FIREARMS: alert, oriented X 3, normal speech Skin: dry, intact, normal color, normal temperature Wound/incision: Location: Rgroin bruise, tender Psychiatry: normal affect, normal judgment/insight, normal mood, no hallucinations Results Findings/Data: Laboratory [...] % (Auto) (14.0 - 32.0 %) 17.5 Mcnairy % (Auto) (4.8 - 9.0 %) 14.7 H Eos % (Auto) (0.3 - 3.7 %) 3.3 Baso % (Auto) (0.0 - 2.0 %) 0.3 Neut # (Auto) (2.0 - 7.6 x10 3/uL) 4.62 Lymph # (Auto) (1.0 - 3.8 x10 3/uL) 1.28 Mcnairy # (Auto) (0.1 - 0.8 x10 3/uL) 1.07 H Eos # (Auto) (0.0 - 0.2 x10 3/uL) 0.24 H Baso # (Auto) (0.0 - 0.2 x10 3/uL) 0.02 Abs Immat Gran (auto) (0.00 - 0.03 x10 3/uL) 0.07 H Add Manual Diff NO Immature Gran % (0.0 - 2.0 %) 1.0 Nucleated RBC % (0 - 0 %) 0.0 Nucleated RBCs # (Man) (0.0 - 0.1 x10 3/uL) 0.00 Diagnosis, Assessment Plan Plan discussed with: patient, [...] RCA post balloon angioplasty. Impella LVAD was inserted for stability. This morning [...] 5. RCFA bleeding during Impella removal s/p repair R groin bruise hgb 7.8->7.3->6.7->7.6->7.9->8.2->8. 6 s/p 1 unit 06/26 R groin US no hematoma no pseudoaneurysm 6. Fluid overload - resolved s/p IV diuresis PT/OT mobilize OOB Stable CV Status. From cardiac standpoint patient is ok to DC home. Defer discharge disposition to primary. Outpatient follow-up with Dr. Mcdonald at 1102 RPT #:[id number] [facility] 2021-06-30 08:51:00 [facility] Cardiology Progress Note REPORT#:[id number] REPORT STATUS: Signed DATE:06/30/21 TIME: 0851 PATIENT: MARINA MARTINEZ UNIT #: [id number] ROOM/BED: [place] [id number] : 64 AGE: 61 SEX: F ATTEND: Alejandra Zeng MD ADM AUTHOR: Zoraida Felder * ALL edits or amendments must be made on the electronic/computer document * Subjective Patient reports: No: complaints. [...] Water (WATER FOR INJECTION) 5 ML ASDIR PRN IV Potassium Chloride (POTASSIUM CHLORIDE 20MEQ TAB.ER) 40 MEQ DAILY PRN PRN PO Lidocaine (LIDODERM) 1 PATCH DAILY TOPICAL Insulin Human Lispro (HUMALOG) 0 AC HS SUBQ Dextrose/Water (DEXTROSE 50% W SYRINGE) 25 ML ASDIR PRN IV (CKD) Dextrose/Water (DEXTROSE 50% W SYRINGE) 50 ML ASDIR PRN IV (CKD) Glucagon (GLUCAGON) 1 MG ASDIR PRN IM Aspirin (ASPIRIN) 81 MG DAILY PO Clopidogrel Bisulfate (Plavix) 75 MG DAILY PO Duloxetine HCl (CYMBALTA) 20 MG DAILY PO Losartan Potassium (COZAAR) 50 MG DAILY PO Sodium Chloride (SODIUM CHLORIDE 0.9%) 500 ML DAILY MISC Atorvastatin Calcium (LIPITOR) 40 MG BEDTIME PO Gabapentin (NEURONTIN) 600 MG BID PO Insulin Glargine (Lantus/Semglee) 25 UNIT BEDTIME SUBQ Metoprolol Succinate (TOPROL XL) 12.5 MG BID PO Glucagon (GLUCAGON) 1 MG ASDIR PRN IM Ondansetron HCl (ZOFRAN) 4 MG Q8H PRN PRN IV Physical Exam General appearance: alert, awake, oriented, no acute distress Neck: non-tender, no JVD Cardiovascular: CV assessment: regular rate and rhythm Respiratory: decreased breath sounds, on oxygen, no distress Abdomen: non-tender Genitourinary: no flank pain, no hilliard Lower extremity: LE assessment: no edema Musculoskeletal: normal inspection Neuro/INSPECTOR FIREARMS: alert, oriented X 3, normal speech Skin: dry, intact, normal color, normal temperature Wound/incision: Location: Rgroin bruise, tender Psychiatry: normal affect, normal judgment/insight, normal mood, no hallucinations Results Findings/Data: Laboratory [...] % (Auto) (14.0 - 32.0 %) 17.5 Mcnairy % (Auto) (4.8 - 9.0 %) 14.7 H Eos % (Auto) (0.3 - 3.7 %) 3.3 Baso % (Auto) (0.0 - 2.0 %) 0.3 Neut # (Auto) (2.0 - 7.6 x10 3/uL) 4.62 Lymph # (Auto) (1.0 - 3.8 x10 3/uL) 1.28 Mcnairy # (Auto) (0.1 - 0.8 x10 3/uL) 1.07 H Eos # (Auto) (0.0 - 0.2 x10 3/uL) 0.24 H Baso # (Auto) (0.0 - 0.2 x10 3/uL) 0.02 Abs Immat Gran (auto) (0.00 - 0.03 x10 3/uL) 0.07 H Add Manual Diff NO Immature Gran % (0.0 - 2.0 %) 1.0 Nucleated RBC % (0 - 0 %) 0.0 Nucleated RBCs # (Man) (0.0 - 0.1 x10 3/uL) 0.00 Diagnosis, Assessment Plan Plan discussed with: patient, [...] RCA post balloon angioplasty. Impella LVAD was inserted for stability. This morning [...] 5. RCFA bleeding during Impella removal s/p repair R groin bruise hgb 7.8->7.3->6.7->7.6->7.9->8.2->8. 6 s/p 1 unit 06/26 R groin US no hematoma no pseudoaneurysm 6. Fluid overload - resolved s/p IV diuresis PT/OT mobilize OOB Stable CV Status. From cardiac standpoint patient is ok to DC home. Defer discharge disposition to primary. Outpatient follow-up with Dr. Mcdonald at 1102 at 2150 RPT #:[id number] [facility] 2021-06-29 13:22:00 [facility] REPORT#:[id number] REPORT STATUS: Signed DATE:06/29/21 TIME: 1322 PATIENT: MARINA MARTINEZ UNIT #: [id number] ROOM/BED: [place] [id number] : 64 AGE: 61 SEX: F ATTEND: Alejandra Zeng MD ADM AUTHOR: Agnes Almeida MD * ALL edits or amendments must be made on the electronic/computer document * Subjective Chief complaint: she is doing well . she ambulate Review of Systems Constitutional: Denies: fatigue, fever, generalized weakness, lethargy. Respiratory: Denies: productive cough (sputum), SOB, wheezing. Cardiovascular: Denies: chest pain, ELLIS (dyspnea on exertion), edema, orthopnea. GI: Denies: abdominal pain, nausea, vomiting. [...] 20 144/61 0.0 99 Room air 06/28 2000 70 20 125/57 82 06/28 1930 69 [...] Water (WATER FOR INJECTION) 5 ML ASDIR PRN IV Potassium Chloride (POTASSIUM CHLORIDE 20MEQ TAB.ER) 40 MEQ DAILY PRN PRN PO Lidocaine (LIDODERM) 1 PATCH DAILY TOPICAL Furosemide (LASIX 20MG INJ) 20 MG BLOOD-DOSE BETWEEN IV (DC) Insulin Human Lispro (HUMALOG) 0 AC HS SUBQ Dextrose/Water (DEXTROSE 50% W SYRINGE) 25 ML ASDIR PRN IV (CKD) Dextrose/Water (DEXTROSE 50% W SYRINGE) 50 ML ASDIR PRN IV (CKD) Glucagon (GLUCAGON) 1 MG ASDIR PRN IM Aspirin (ASPIRIN) 81 MG DAILY PO Clopidogrel Bisulfate (Plavix) 75 MG DAILY PO Duloxetine HCl (CYMBALTA) 20 MG DAILY PO Losartan Potassium (COZAAR) 50 MG DAILY PO Sodium Chloride (SODIUM CHLORIDE 0.9%) 500 ML DAILY MISC Atorvastatin Calcium (LIPITOR) 40 MG BEDTIME PO Gabapentin (NEURONTIN) 600 MG BID PO Insulin Glargine (Lantus/Semglee) 25 UNIT BEDTIME SUBQ Metoprolol Succinate (TOPROL XL) 12.5 MG BID PO Glucagon (GLUCAGON) 1 MG ASDIR PRN IM Hydrocodone Bitart/Acetaminophen (NORCO 10/325) 1 TAB Q6H PRN PRN PO (DC ) Morphine Sulfate (morphine SULFATE) 4 MG Q2H PRN PRN IV (DC) Ondansetron HCl (ZOFRAN) 4 MG Q8H PRN PRN IV Physical Exam General appearance: alert, awake, oriented, no acute distress Head/Eyes: atraumatic, normal conjunctiva/sclera, normal eyelids/periorb., normocephalic Neck: full range of motion, non-tender, normal thyroid, no JVD Cardiovascular: normal heart sounds, regular rate rhythm Respiratory: aerating well, clear to auscultation Abdomen: non-tender, normal bowel sounds, soft, no distention Extremities: moves all, no calf tenderness, no edema Neuro/INSPECTOR FIREARMS: alert, oriented X 3, CNII-XII intact, normal [...] % (Auto) (14.0 - 32.0 %) 16.1 Mcnairy % (Auto) (4.8 - 9.0 %) 13.3 H Eos % (Auto) (0.3 - 3.7 %) 3.6 Baso % (Auto) (0.0 - 2.0 %) 0.3 Neut # (Auto) (2.0 - 7.6 x10 3/uL) 5.72 Lymph # (Auto) (1.0 - 3.8 x10 3/uL) 1.40 Mcnairy # (Auto) (0.1 - 0.8 x10 3/uL) 1.16 H Eos # (Auto) (0.0 - 0.2 x10 3/uL) 0.31 H Baso # (Auto) (0.0 - 0.2 x10 3/uL) 0.03 Abs Immat Gran (auto) (0.00 - 0.03 x10 3/uL) 0.07 H Add Manual Diff NO Immature Gran % (0.0 - 2.0 %) 0.8 Nucleated RBC % (0 - 0 %) 0.0 Nucleated RBCs # (Man) (0.0 - 0.1 x10 3/uL) 0.00 Diagnosis, Assessment Plan Consultants: cardiology, cardiovascular surgery, critical/master steam yacht, hospitalist Free Text DxA P Notes Free text DxA P notes: angina /CAD hypotension -- cardiagenic HTN leucocytosis DM HLD anemia -- due to acute blood loss angina/CAD [facility] -- PCI cardiology consult continue home med [...] Anemia hemoglobin 6.7, s/p 1 unit of blood ........ hypomagnesia magnesium replaced ........ complaining of sore shortness of breath but able to maintain saturation above 90% on room air ......... labs in a.m. 06/27.... Hemoglobin improved 7.6 today ........ magnesium replaced ........ vitals stable 06/28- she feel well -- H H-- stable -- continue monitor as cardiology and CV surgeon 06/29-- she is doing well -- H [...] Heparin Sodium/ 1,000 ML .STK-MED ONE 06/24 1641 DC 06/24 Sodium Chloride IV 1705 Insulin Human Lispro 0 AC HS 06/24 1630 AC SUBQ 07/24 1629 Methylprednisolone 0 .STK-MED ONE 06/24 1629 DC 06/24 Sodium Succinate IV 1705 Norepinephrine 250 ML .STK-MED ONE 06/24 1626 DC 06/24 Bitartrate IV 1705 Phenylephrine HCl 0 .STK-MED ONE 06/24 1607 DC 06/24 I-CHAVEZ 1705 Fentanyl Citrate 0 .STK-MED ONE 06/24 1533 DC 06/24 .ROUTE 1539 Heparin Sodium/ 500 ML .STK-MED ONE 06/24 1533 DC 06/24 Sodium Chloride IV 1539 Lidocaine HCl 0 .STK-MED ONE 06/24 1533 DC 06/24 .ROUTE 1539 Midazolam HCl 0 .STK-MED ONE 06/24 1532 DC 06/24 .ROUTE 1539 Dextrose/Water 25 ML ASDIR PRN [...] Potassium 50 MG DAILY 06/24 0900 AC 06/24 PO 07/24 0859 0916 Sodium Chloride [...] Lispro 0 AC HS 06/23 1800 DC 06/24 SUBQ 07/23 1749 0916 Dextrose/Water 25 ML ASDIR PRN 06/23 1730 DC IV 07/23 1729 Dextrose/Water 50 ML ASDIR PRN 06/23 1730 DC IV 07/23 1729 Glucagon 1 MG ASDIR PRN 06/23 1730 AC IM 07/23 1729 Heparin Sodium 0 ASDIR PRN 06/23 1730 AC IV 07/23 1729 Heparin Sodium 500 ML ASDIR 06/23 1730 CKD 06/24 (Porcine) IV 07/23 1729 0301 Hydrocodone Bitart/ 1 TAB Q6H PRN PRN 06/23 1730 AC Acetaminophen PO 06/28 1729 Morphine Sulfate 4 MG Q2H PRN PRN 06/23 1730 AC 06/24 IV 06/28 1729 0634 Ondansetron HCl 4 MG Q8H PRN PRN 06/23 1730 AC IV 07/23 1729 Sodium Chloride 1,000 ML .Q10H 06/23 1730 AC 06/24 IV 07/23 1729 1436 Atropine Sulfate 0.5 MG ASDIR PRN 06/23 1430 DC IV 06/24 1423 Heparin Sodium 12,500 UNIT DAILY PRN PRN 06/23 1430 AC Dextrose/Water 500 ML I-CATHETER 07/23 1429 Heparin Sodium/ 500 ML DAILY PRN PRN 06/23 1430 AC 06/23 Dextrose I-CATHETER 07/23 1429 2302 Sodium Chloride 1,000 ML .[id number] 06/23 1430 DC 06/23 IV 06/24 0349 [...] ANGINA CLOPIDOGREL (PLAVIX) 75 MG PO DAILY at 1324 RPT #:[id number] [facility] 2021-06-29 08:40:00 [facility]) Cardiology Progress Note REPORT#:[id number] REPORT STATUS: Signed DATE:06/29/21 TIME: 0840 PATIENT: MARINA MARTINEZ UNIT #: [id number] ROOM/BED: [address] : 64 AGE: 61 SEX: F ATTEND: Alejandra Zeng MD ADM AUTHOR: Zoraida Felder AGACNP * ALL edits or amendments must be made on the electronic/computer document * Subjective Patient reports: No: complaints. [...] Flow FiO2 Mean Ox Delivery Rate 06/29 0726 [...] Water (WATER FOR INJECTION) 5 ML ASDIR PRN IV Potassium Chloride (POTASSIUM CHLORIDE 20MEQ TAB.ER) 40 MEQ DAILY PRN PRN PO Lidocaine (LIDODERM) 1 PATCH DAILY TOPICAL Furosemide (LASIX 20MG INJ) 20 MG BLOOD-DOSE BETWEEN IV (DC) Insulin Human Lispro (HUMALOG) 0 AC HS SUBQ Dextrose/Water (DEXTROSE 50% W SYRINGE) 25 ML ASDIR PRN IV (CKD) Dextrose/Water (DEXTROSE 50% W SYRINGE) 50 ML ASDIR PRN IV (CKD) Glucagon (GLUCAGON) 1 MG ASDIR PRN IM Aspirin (ASPIRIN) 81 MG DAILY PO Clopidogrel Bisulfate (Plavix) 75 MG DAILY PO Duloxetine HCl (CYMBALTA) 20 MG DAILY PO Losartan Potassium (COZAAR) 50 MG DAILY PO Sodium Chloride (SODIUM CHLORIDE 0.9%) 500 ML DAILY MISC Atorvastatin Calcium (LIPITOR) 40 MG BEDTIME PO Gabapentin (NEURONTIN) 600 MG BID PO Insulin Glargine (Lantus/Semglee) 25 UNIT BEDTIME SUBQ Metoprolol Succinate (TOPROL XL) 12.5 MG [...] Exam General appearance: alert, awake, oriented, no acute distress Neck: non-tender, no JVD Cardiovascular: CV assessment: regular rate and rhythm Respiratory: decreased breath sounds, on oxygen, no distress Abdomen: non-tender Genitourinary: no flank pain, no hilliard Lower extremity: LE assessment: no edema Musculoskeletal: normal inspection Neuro/INSPECTOR FIREARMS: alert, oriented X 3, normal speech Skin: dry, intact, normal color, normal temperature Wound/incision: Location: Rgroin bruise, tender Psychiatry: normal affect, normal judgment/insight, normal mood, no hallucinations Results Findings/Data: Laboratory [...] % (Auto) (14.0 - 32.0 %) 16.1 Mcnairy % (Auto) (4.8 - 9.0 %) 13.3 H Eos % (Auto) (0.3 - 3.7 %) 3.6 Baso % (Auto) (0.0 - 2.0 %) 0.3 Neut # (Auto) (2.0 - 7.6 x10 3/uL) 5.72 Lymph # (Auto) (1.0 - 3.8 x10 3/uL) 1.40 Mcnairy # (Auto) (0.1 - 0.8 x10 3/uL) 1.16 H Eos # (Auto) (0.0 - 0.2 x10 3/uL) 0.31 H Baso # (Auto) (0.0 - 0.2 x10 3/uL) 0.03 Abs Immat Gran (auto) (0.00 - 0.03 x10 3/uL) 0.07 H Add Manual Diff NO Immature Gran % (0.0 - 2.0 %) 0.8 Nucleated RBC % (0 - 0 %) 0.0 Nucleated RBCs # (Man) (0.0 - 0.1 x10 3/uL) 0.00 Laboratory Tests 06/29 0430 Chemistry Magnesium (1.80 [...] RCA post balloon angioplasty. Impella LVAD was inserted for stability. This morning [...] 5. RCFA bleeding during Impella removal s/p repair R groin bruise hgb 7.8->7.3->6.7->7.6->7.9->8.2->8. 6 s/p 1 unit 06/26 R groin US no hematoma no pseudoaneurysm 6. Fluid overload - resolved s/p IV diuresis PT/OT mobilize OOB Stable CV Status. From cardiac standpoint patient is ok to DC home. Defer discharge disposition to primary at 1117 RPT #:[id number] [facility] 2021-06-29 08:40:00 [facility] ([facility]) Cardiology Progress Note REPORT#:[id number] REPORT STATUS: Signed DATE:06/29/21 TIME: 0840 PATIENT: MARINA MARTINEZ UNIT #: [id number] [place] [facility] : 64 AGE: 61 SEX: F ATTEND: Alejandra Zeng MD ADM AUTHOR: Zoraida Felder * ALL edits or amendments must be made on the electronic/computer document * Subjective Patient reports: No: complaints. [...] Flow FiO2 Mean Ox Delivery Rate 06/29 0726 36.7 69 16 117/78 90.6 99 Room air 06/29 0457 36.4 69 18 135/74 94.5 100 Room air 06/28 2347 36.7 72 18 111/53 0.0 99 Room air 06/28 2015 36.9 71 20 144/61 0.0 99 Room air 06/28 2001 70 20 125/57 82 06/28 1930 69 28 06/28 1900 73 19 06/28 1550 68 04 1500 68 16 96 06/28 1400 72 [...] Water (WATER FOR INJECTION) 5 ML ASDIR PRN IV Potassium Chloride (POTASSIUM CHLORIDE 20MEQ TAB.ER) 40 MEQ DAILY PRN PRN PO Lidocaine (LIDODERM) 1 PATCH DAILY TOPICAL Furosemide (LASIX 20MG INJ) 20 MG BLOOD-DOSE BETWEEN IV (DC) Insulin Human Lispro (HUMALOG) 0 AC HS SUBQ Dextrose/Water (DEXTROSE 50% W SYRINGE) 25 ML ASDIR PRN IV (CKD) Dextrose/Water (DEXTROSE 50% W SYRINGE) 50 ML ASDIR PRN IV (CKD) Glucagon (GLUCAGON) 1 MG ASDIR PRN IM Aspirin (ASPIRIN) 81 MG DAILY PO Clopidogrel Bisulfate (Plavix) 75 MG DAILY PO Duloxetine HCl (CYMBALTA) 20 MG DAILY PO Losartan Potassium (COZAAR) 50 MG DAILY PO Sodium Chloride (SODIUM CHLORIDE 0.9%) 500 ML DAILY MISC Atorvastatin Calcium (LIPITOR) 40 MG BEDTIME PO Gabapentin (NEURONTIN) 600 MG BID PO Insulin Glargine (Lantus/Semglee) 25 UNIT BEDTIME SUBQ Metoprolol Succinate (TOPROL XL) 12.5 MG [...] Exam General appearance: alert, awake, oriented, no acute distress Neck: non-tender, no JVD Cardiovascular: CV assessment: regular rate and rhythm Respiratory: decreased breath sounds, on oxygen, no distress Abdomen: non-tender Genitourinary: no flank pain, no hilliard Lower extremity: LE assessment: no edema Musculoskeletal: normal inspection Neuro/INSPECTOR FIREARMS: alert, oriented X 3, normal speech Skin: dry, intact, normal color, normal temperature Wound/incision: Location: Rgroin bruise, tender Psychiatry: normal affect, normal judgment/insight, normal mood, no hallucinations Results Findings/Data: Laboratory [...] % (Auto) (14.0 - 32.0 %) 16.1 Mcnairy % (Auto) (4.8 - 9.0 %) 13.3 H Eos % (Auto) (0.3 - 3.7 %) 3.6 Baso % (Auto) (0.0 - 2.0 %) 0.3 Neut # (Auto) (2.0 - 7.6 x10 3/uL) 5.72 Lymph # (Auto) (1.0 - 3.8 x10 3/uL) 1.40 Mcnairy # (Auto) (0.1 - 0.8 x10 3/uL) 1.16 H Eos # (Auto) (0.0 - 0.2 x10 3/uL) 0.31 H Baso # (Auto) (0.0 - 0.2 x10 3/uL) 0.03 Abs Immat Gran (auto) (0.00 - 0.03 x10 3/uL) 0.07 H Add Manual Diff NO Immature Gran % (0.0 - 2.0 %) 0.8 Nucleated RBC % (0 - 0 %) 0.0 Nucleated RBCs # (Man) (0.0 - 0.1 x10 3/uL) 0.00 Laboratory Tests 06/29 0430 Chemistry Magnesium (1.80 [...] RCA post balloon angioplasty. Impella LVAD was inserted for stability. This morning [...] 5. RCFA bleeding during Impella removal s/p repair R groin bruise hgb 7.8->7.3->6.7->7.6->7.9->8.2->8. 6 s/p 1 unit 06/26 R groin US no hematoma no pseudoaneurysm 6. Fluid overload - resolved s/p IV diuresis PT/OT mobilize OOB Stable CV Status. From cardiac standpoint patient is ok to DC home. Defer discharge disposition to primary at 1117 at 4300 RPT #:[id number] [facility] 2021-06-28 13:46:00 [facility] Cardiology Progress Note REPORT#:[id number] REPORT STATUS: Signed DATE:06/28/21 TIME: 1346 PATIENT: MARINA MARTINEZ UNIT #: [id number] RO[address]BED: [address] : 64 AGE: 61 SEX: F ATTEND: Alejandra Zeng MD ADM AUTHOR: Zoraida Felder AGACNP * ALL edits or amendments must be made on the electronic/computer document * Subjective Patient reports: No: complaints. [...] O2 Flow FiO2 Mean Ox Delivery Rate 06/28 1210 36.8 69 19 124/58 80 98 Room air 06/28 1200 69 19 98 06/28 1102 73 20 124/58 83 04 1000 72 19 04 0850 72 35 145/63 90 99 06/28 0841 71 25 99/48 69 100 06/28 0830 72 16 98 06/28 0800 36.7 64 16 145/63 90 197 Room air 06/28 0800 64 16 97 /18 0730 70 16 95 /18 0700 65 16 98 06/28 0640 72 19 118/55 79 97 04 0639 71 17 118/54 78 98 /18 0638 74 18 104/52 75 99 04 0500 69 19 100 04/18 0430 69 17 96 0418 0400 72 16 98 0418 0330 70 18 98 18 0300 73 31 100 0418 0230 69 17 100 18 0200 71 16 97 18 0130 68 17 98 04/18 0100 70 17 99 04/18 0030 69 20 98 04 2331 68 19 137/63 91 100 06/27 2301 72 19 147/62 89 98 06/27 2231 72 17 133/58 83 98 06/27 2201 139/62 89 04 2200 77 19 99 06/27 2130 77 23 120/58 83 97 04/17 2100 76 17 115/53 77 97 04/17 2030 76 16 108/53 76 98 06/28 [...] Water (WATER FOR INJECTION) 5 ML ASDIR PRN IV Magnesium Sulfate (MAGNESIUM SULFATE 2GM/SWFI 50ML) 50 ML ONCE ONE IV ( DC) Magnesium Sulfate (MAGNESIUM SULFATE 2GM/SWFI 50ML) 50 ML ONCE ONE IV ( CAN) Potassium Chloride (POTASSIUM CHLORIDE 20MEQ TAB.ER) 40 MEQ DAILY PRN PRN PO Lidocaine (LIDODERM) 1 PATCH DAILY TOPICAL Furosemide (LASIX 20MG INJ) 20 MG BLOOD-DOSE BETWEEN IV (CKD) Insulin Human Lispro (HUMALOG) 0 AC HS SUBQ Dextrose/Water (DEXTROSE 50% W SYRINGE) 25 ML ASDIR PRN IV (CKD) Dextrose/Water (DEXTROSE 50% W SYRINGE) 50 ML ASDIR PRN IV (CKD) Glucagon (GLUCAGON) 1 MG ASDIR PRN IM Aspirin (ASPIRIN) 81 MG DAILY PO Clopidogrel Bisulfate (Plavix) 75 MG DAILY PO Duloxetine HCl (CYMBALTA) 20 MG DAILY PO Losartan Potassium (COZAAR) 50 MG DAILY PO Sodium Chloride (SODIUM CHLORIDE 0.9%) 500 ML DAILY MISC Atorvastatin Calcium (LIPITOR) 40 MG BEDTIME PO Gabapentin (NEURONTIN) 600 MG BID PO Insulin Glargine (Lantus/Semglee) 25 UNIT BEDTIME SUBQ Metoprolol Succinate (TOPROL XL) 12.5 MG [...] Exam General appearance: alert, awake, oriented, no acute distress Neck: non-tender, no JVD Cardiovascular: CV assessment: regular rate and rhythm Respiratory: decreased breath sounds, on oxygen, no distress Abdomen: non-tender Genitourinary: no flank pain, no hilliard Lower extremity: LE assessment: no edema Musculoskeletal: normal inspection Neuro/INSPECTOR FIREARMS: alert, oriented X 3, normal speech Skin: dry, intact, normal color, normal temperature Wound/incision: Location: Rgroin bruise, tender Psychiatry: normal affect, normal judgment/insight, normal mood, no hallucinations Results Findings/Data: Laboratory [...] 06/28 06/28 06/27 06/27 1118 0726 0455 [id number] 1558 Chemistry Sodium (134 - 147 mEq/L) [...] (Auto) (14.0 - 32.0 %) 10.6 L Mcnairy % (Auto) (4.8 - 9.0 %) 8.6 Eos % (Auto) (0.3 - 3.7 %) 2.7 Baso % (Auto) (0.0 - 2.0 %) 0.3 Neut # (Auto) (2.0 - 7.6 x10 3/uL) 6.99 Lymph # (Auto) (1.0 - 3.8 x10 3/uL) 0.96 L Mcnairy # (Auto) (0.1 - 0.8 x10 3/uL) 0.78 Eos # (Auto) (0.0 - 0.2 x10 3/uL) 0.24 H Baso # (Auto) (0.0 - 0.2 x10 3/uL) 0.03 Abs Immat Gran (auto) (0.00 - 0.03 x10 3/uL) 0.04 H Add Manual Diff NO Immature Gran % (0.0 - 2.0 %) 0.4 Nucleated RBC % (0 - 0 %) 0.0 Nucleated RBCs # (Man) (0.0 - 0.1 x10 3/uL) 0.00 Laboratory Tests 06/28 0455 Chemistry Magnesium (1.80 [...] RCA post balloon angioplasty. Impella LVAD was inserted for stability. This morning [...] 5. RCFA bleeding during Impella removal s/p repair R groin bruise hgb 7.8->7.3->6.7->7.6->7.9->8.2 s/p 1 unit 06/26 R groin US no hematoma no pseudoaneurysm 6. Fluid overload - resolving 24H UO 2L, negative FB s/p IV diuresis PT/OT mobilize OOB Transfer to CV1 at 1531 RPT #:[id number] END OF REPORT [facility] 2021-06-28 13:46:00 [facility] ([facility]) Cardiology Progress Note REPORT#:[id number] REPORT STATUS: Signed DATE:06/28/21 TIME: 1346 PATIENT: MARINA MARTINEZ UNIT #: [id number] ROOM/BED: G.[id number] : 64 AGE: 61 SEX: F ATTEND: Alejandra Zeng MD ADM AUTHOR: Zoraida Felder * ALL edits or amendments must be made on the electronic/computer document * Subjective Patient reports: No: complaints. [...] O2 Flow FiO2 Mean Ox Delivery Rate 06/28 1210 36.8 69 19 124/58 80 98 Room air 06/28 1200 69 19 98 0418 1102 73 20 124/58 83 04/18 1000 72 19 04/18 0850 72 35 145/63 90 99 / 0841 71 25 99/48 69 100 04/18 0830 72 16 98 /18 0800 36.7 64 16 145/63 90 197 Room air 06/28 0800 64 16 97 /18 0730 70 16 95 04/18 0700 65 16 98 /18 0640 72 19 118/55 79 97 04/18 0639 71 17 118/54 78 98 /18 0638 74 18 104/52 75 99 04/18 0500 69 19 100 04/18 0430 69 17 96 04/18 0400 72 16 98 04/18 0330 70 18 98 04/18 0300 73 31 100 04/18 0230 69 17 100 04/18 0200 71 16 97 04/18 0130 68 17 98 04/18 0100 70 17 99 04/18 0030 69 20 98 06/27 2331 68 19 137/63 91 100 06/27 2301 72 19 147/62 89 98 04/17 2231 72 17 133/58 83 98 06/27 [...] Water (WATER FOR INJECTION) 5 ML ASDIR PRN IV Magnesium Sulfate (MAGNESIUM SULFATE 2GM/SWFI 50ML) 50 ML ONCE ONE IV ( DC) Magnesium Sulfate (MAGNESIUM SULFATE 2GM/SWFI 50ML) 50 ML ONCE ONE IV ( CAN) Potassium Chloride (POTASSIUM CHLORIDE 20MEQ TAB.ER) 40 MEQ DAILY PRN PRN PO Lidocaine (LIDODERM) 1 PATCH DAILY TOPICAL Furosemide (LASIX 20MG INJ) 20 MG BLOOD-DOSE BETWEEN IV (CKD) Insulin Human Lispro (HUMALOG) 0 AC HS SUBQ Dextrose/Water (DEXTROSE 50% W SYRINGE) 25 ML ASDIR PRN IV (CKD) Dextrose/Water (DEXTROSE 50% W SYRINGE) 50 ML ASDIR PRN IV (CKD) Glucagon (GLUCAGON) 1 MG ASDIR PRN IM Aspirin (ASPIRIN) 81 MG DAILY PO Clopidogrel Bisulfate (Plavix) 75 MG DAILY PO Duloxetine HCl (CYMBALTA) 20 MG DAILY PO Losartan Potassium (COZAAR) 50 MG DAILY PO Sodium Chloride (SODIUM CHLORIDE 0.9%) 500 ML DAILY MISC Atorvastatin Calcium (LIPITOR) 40 MG BEDTIME PO Gabapentin (NEURONTIN) 600 MG BID PO Insulin Glargine (Lantus/Semglee) 25 UNIT BEDTIME SUBQ Metoprolol Succinate (TOPROL XL) 12.5 MG [...] Exam General appearance: alert, awake, oriented, no acute distress Neck: non-tender, no JVD Cardiovascular: CV assessment: regular rate and rhythm Respiratory: decreased breath sounds, on oxygen, no distress Abdomen: non-tender Genitourinary: no flank pain, no hilliard Lower extremity: LE assessment: no edema Musculoskeletal: normal inspection Neuro/INSPECTOR FIREARMS: alert, oriented X 3, normal speech Skin: dry, intact, normal color, normal temperature Wound/incision: Location: Rgroin bruise, tender Psychiatry: normal affect, normal judgment/insight, normal mood, no hallucinations Results Findings/Data: Laboratory [...] (Auto) (14.0 - 32.0 %) 10.6 L Mcnairy % (Auto) (4.8 - 9.0 %) 8.6 Eos % (Auto) (0.3 - 3.7 %) 2.7 Baso % (Auto) (0.0 - 2.0 %) 0.3 Neut # (Auto) (2.0 - 7.6 x10 3/uL) 6.99 Lymph # (Auto) (1.0 - 3.8 x10 3/uL) 0.96 L Mcnairy # (Auto) (0.1 - 0.8 x10 3/uL) 0.78 Eos # (Auto) (0.0 - 0.2 x10 3/uL) 0.24 H Baso # (Auto) (0.0 - 0.2 x10 3/uL) 0.03 Abs Immat Gran (auto) (0.00 - 0.03 x10 3/uL) 0.04 H Add Manual Diff NO Immature Gran % (0.0 - 2.0 %) 0.4 Nucleated RBC % (0 - 0 %) 0.0 Nucleated RBCs # (Man) (0.0 - 0.1 x10 3/uL) 0.00 Laboratory Tests 06/28 0455 Chemistry Magnesium (1.80 [...] RCA post balloon angioplasty. Impella LVAD was inserted for stability. This morning [...] 5. RCFA bleeding during Impella removal s/p repair R groin bruise hgb 7.8->7.3->6.7->7.6->7.9->8.2 s/p 1 unit 06/26 R groin US no hematoma no pseudoaneurysm 6. Fluid overload - resolving 24H UO 2L, negative FB s/p IV diuresis PT/OT mobilize OOB Transfer to [facility] at 1531 at 0819 RPT #:[id number] END OF REPORT [facility] 2021-06-28 12:40:00 [facility] ([facility]) Hospitalist Progress Note REPORT#:[id number] REPORT STATUS: Signed DATE:06/28/21 TIME: 1240 PATIENT: MARINA MARTINEZ UNIT #: [id number] ROOM/BED: [place] [id number] : 64 AGE: 61 SEX: F ATTEND: Alejandra Zeng MD ADM AUTHOR: Agnes Almeida MD * ALL edits or amendments must be made on the electronic/computer document * Subjective Chief complaint: she feel well . no complaint Review of Systems Constitutional: Denies: fatigue, fever, generalized weakness, lethargy. Respiratory: Denies: productive cough (sputum), SOB, wheezing. Cardiovascular: Denies: chest pain, ELLIS (dyspnea on exertion), edema, orthopnea. GI: Denies: abdominal pain, melena, nausea, vomiting. Objective General VS/I O: Vital Signs: Date Time Temp Pulse Resp B/P B/P Pulse O2 O2 Flow FiO2 Mean Ox Delivery Rate 06/28 1210 36.8 69 19 124/58 80 98 Room air 06/28 1200 69 19 98 06/28 1102 73 20 124/58 83 / 1000 72 19 06/28 0850 72 35 145/63 90 99 06/28 0841 71 25 99/48 69 100 / 0830 72 16 98 06/28 0800 36.7 64 16 145/63 90 197 Room air 06/28 0800 64 16 97 06/28 0730 70 16 95 /18 0700 65 16 98 06/28 0640 72 19 118/55 79 97 18 0639 71 17 118/54 78 98 06/28 0638 74 18 104/52 75 99 06/28 0500 69 19 100 / 0430 69 17 96 06/28 0400 72 16 98 06/28 0330 70 18 98 06/28 0300 73 31 100 06/28 0230 69 17 100 06/28 0200 71 16 97 04 0130 68 17 98 06/28 0100 70 17 99 06/28 0030 69 20 98 04 2331 68 [...] Water (WATER FOR INJECTION) 5 ML ASDIR PRN IV Calcium Chloride (CALCIUM CHLORIDE) 1 GM ONCE ONE IV (DC) Sodium Chloride (SODIUM CHLORIDE 0.9%) 100 ML Magnesium Sulfate (MAGNESIUM SULFATE 2GM/SWFI 50ML) 50 ML ONCE ONE IV ( DC) Potassium Chloride (POTASSIUM CHLORIDE 20MEQ TAB.ER) 20 MEQ ONCE ONE PO (DC) Sodium Bicarbonate (SODIUM BICARBONATE) 100 MEQ ONCE ONE IV (DC) Magnesium Sulfate (MAGNESIUM SULFATE 2GM/SWFI 50ML) 50 ML ONCE ONE IV ( CAN) Potassium Chloride (POTASSIUM CHLORIDE 20MEQ TAB.ER) 40 MEQ DAILY PRN PRN PO Lidocaine (LIDODERM) 1 PATCH DAILY TOPICAL Furosemide (LASIX 20MG INJ) 20 MG BLOOD-DOSE BETWEEN IV (CKD) Insulin Human Lispro (HUMALOG) 0 AC HS SUBQ Dextrose/Water (DEXTROSE 50% W SYRINGE) 25 ML ASDIR PRN IV (CKD) Dextrose/Water (DEXTROSE 50% W SYRINGE) 50 ML ASDIR PRN IV (CKD) Glucagon (GLUCAGON) 1 MG ASDIR PRN IM Aspirin (ASPIRIN) 81 MG DAILY PO Clopidogrel Bisulfate (Plavix) 75 MG DAILY PO Duloxetine HCl (CYMBALTA) 20 MG DAILY PO Losartan Potassium (COZAAR) 50 MG DAILY PO Sodium Chloride (SODIUM CHLORIDE 0.9%) 500 ML DAILY MISC Atorvastatin Calcium (LIPITOR) 40 MG BEDTIME PO Gabapentin (NEURONTIN) 600 MG BID PO Insulin Glargine (Lantus/Semglee) 25 UNIT BEDTIME SUBQ Metoprolol Succinate (TOPROL XL) 12.5 MG [...] appearance: alert, awake, oriented Head/Eyes: atraumatic, normal conjunctiva/sclera, normal eyelids/periorb., normocephalic Neck: full range of motion, non-tender, normal thyroid, no JVD Cardiovascular: normal heart sounds, regular rate rhythm Respiratory: aerating well, clear to auscultation Abdomen: non-tender, normal bowel sounds, soft, no distention Extremities: moves all, no calf tenderness, no edema Neuro/INSPECTOR FIREARMS: alert, oriented X 3, CNII-XII intact, normal [...] (Auto) (14.0 - 32.0 %) 10.6 L Mcnairy % (Auto) (4.8 - 9.0 %) 8.6 Eos % (Auto) (0.3 - 3.7 %) 2.7 Baso % (Auto) (0.0 - 2.0 %) 0.3 Neut # (Auto) (2.0 - 7.6 x10 3/uL) 6.99 Lymph # (Auto) (1.0 - 3.8 x10 3/uL) 0.96 L Mcnairy # (Auto) (0.1 - 0.8 x10 3/uL) 0.78 Eos # (Auto) (0.0 - 0.2 x10 3/uL) 0.24 H Baso # (Auto) (0.0 - 0.2 x10 3/uL) 0.03 Abs Immat Gran (auto) (0.00 - 0.03 x10 3/uL) 0.04 H Add Manual Diff NO Immature Gran % (0.0 - 2.0 %) 0.4 Nucleated RBC % (0 - 0 %) 0.0 Nucleated RBCs # (Man) (0.0 - 0.1 x10 3/uL) 0.00 Diagnosis, Assessment Plan Consultants: cardiology, cardiovascular surgery, critical/master steam yacht, hospitalist Free Text DxA P Notes Free [...] Anemia hemoglobin 6.7, s/p 1 unit of blood ........ hypomagnesia magnesium replaced ........ complaining of sore shortness of breath but able to maintain saturation above 90% on room air ......... labs in a.m. 06/27.... Hemoglobin improved 7.6 today ........ magnesium replaced ........ vitals stable 06/28- she feel well -- H H-- stable -- continue monitor as cardiology and CV surgeon Quality: Gen Med [...] Heparin Sodium/ 1,000 ML .STK-MED ONE 06/24 1641 DC 06/24 Sodium Chloride IV 1705 Insulin Human Lispro 0 AC HS 06/24 1630 AC SUBQ 07/24 1629 Methylprednisolone 0 .STK-MED ONE 06/24 1629 DC 06/24 Sodium Succinate IV 1705 Norepinephrine 250 ML .STK-MED ONE 06/24 1626 DC 06/24 Bitartrate IV 1705 Phenylephrine HCl 0 .STK-MED ONE 06/24 1607 DC 06/24 I-CHAVEZ 1705 Fentanyl Citrate 0 .STK-MED ONE 06/24 1533 DC 06/24 .ROUTE 1539 Heparin Sodium/ 500 ML .STK-MED ONE 06/24 1533 DC 06/24 Sodium Chloride IV 1539 Lidocaine HCl 0 .STK-MED ONE 06/24 1533 DC 06/24 .ROUTE 1539 Midazolam HCl 0 .STK-MED ONE 06/24 1532 DC 06/24 .ROUTE 1539 Dextrose/Water 25 ML ASDIR PRN [...] Potassium 50 MG DAILY 06/24 0900 AC 06/24 PO 07/24 0859 0916 Sodium Chloride 500 ML DAILY 06/24 0900 AC MISC 07/24 0859 Magnesium Sulfate 50 ML ONCE ONE 06/24 0830 DC 06/24 IV 06/24 1029 0921 Atorvastatin Calcium 40 MG BEDTIME 06/23 2100 AC 06/23 PO 07/23 2058 2032 Gabapentin 600 [...] Lispro 0 AC HS 06/23 1800 DC 06/24 SUBQ 07/23 1749 0916 Dextrose/Water 25 ML ASDIR PRN 06/23 1730 DC IV 07/23 1729 Dextrose/Water 50 ML ASDIR PRN 06/23 1730 DC IV 07/23 1729 Glucagon 1 MG ASDIR PRN 06/23 1730 AC IM 07/23 1729 Heparin Sodium 0 ASDIR PRN 06/23 1730 AC IV 07/23 1729 Heparin Sodium 500 ML ASDIR 06/23 1730 CKD 06/24 (Porcine) IV 07/23 1729 0301 Hydrocodone Bitart/ 1 TAB Q6H PRN PRN 06/23 1730 AC Acetaminophen PO 06/28 1729 Morphine Sulfate 4 MG Q2H PRN PRN 06/23 1730 AC 06/24 IV 06/28 1729 0634 Ondansetron HCl 4 MG Q8H PRN PRN 06/23 1730 AC IV 07/23 1729 Sodium Chloride 1,000 ML .Q10H 06/23 1730 AC 06/24 IV 07/23 1729 1436 Atropine Sulfate 0.5 MG ASDIR PRN 06/23 1430 DC IV 06/24 1423 Heparin Sodium 12,500 UNIT DAILY PRN PRN 06/23 1430 AC Dextrose/Water 500 ML I-CATHETER 07/23 1429 Heparin Sodium/ 500 ML DAILY PRN PRN 06/23 1430 AC 06/23 Dextrose I-CATHETER 07/23 1429 2302 Sodium Chloride 1,000 ML .[id number] 06/23 1430 DC 06/23 IV 06/24 0349 [...] ANGINA CLOPIDOGREL (PLAVIX) 75 MG PO DAILY at 1243 [facility] #:[id number] [facility] 2021-06-28 09:35:00 [facility] ([facility]) Cardiothoracic Surgery Prog REPORT#:[id number] REPORT STATUS: Signed DATE:06/28/21 TIME: 934 PATIENT: MARINA MARTINEZ UNIT #: [id number] ROOM/BED: [place] [id number] : 64 AGE: 61 SEX: F ATTEND: Alejandra Zeng MD ADM AUTHOR: Loly Agee NP * ALL edits or amendments must be made on the electronic/computer document * General Post-op: day 4 Status post: 06/24 S/p 1. Exploration of right common femoral artery. 2. Repair of right common femoral artery. Subjective Chief Complaint: Follow up right groin exploration Review of Systems Constitutional: Denies: fever, malaise. Allergy/Immun: Denies: allergic reaction. Respiratory: Denies: SOB. GI: Denies: abdominal pain, nausea, vomiting. Heme: Reports: other (right groin tenderness ). Denies: bleeding. Neuro: Denies: dizziness, headache, vision [...] Physical Exam General appearance: alert, oriented, pleasant, mental status normal, no respiratory distress Wound/incision: Location: right groin Site condition: soft. mild tenderness, bruising HEENT: anicteric Neck: supple/no meningismus Cardiovascular: normal heart sounds, regular rate rhythm Respiratory: aerating well, clear to auscultation, symmetric expansion, no distress Abdomen: soft, non-tender, no distention Genitourinary: hilliard Extremities: pedal pulses, moves all Neuro/INSPECTOR FIREARMS: alert, oriented X 3, normal speech, no motor deficits Psychiatry: normal affect, normal mood Current Medications Medications: Active Meds + DC'd Last 24 Hrs Acetazolamide (DIAMOX) 500 MG Q12H IV (DC) Sterile Water (WATER FOR INJECTION) 5 ML ASDIR PRN IV Calcium Chloride (CALCIUM CHLORIDE) 1 GM ONCE ONE IV (DC) Sodium Chloride (SODIUM CHLORIDE 0.9%) 100 ML Magnesium Sulfate (MAGNESIUM SULFATE 2GM/SWFI 50ML) 50 ML ONCE ONE IV ( DC) Potassium Chloride (POTASSIUM CHLORIDE 20MEQ TAB.ER) 20 MEQ ONCE ONE PO (DC) Sodium Bicarbonate (SODIUM BICARBONATE) 100 MEQ ONCE ONE IV (DC) Magnesium Sulfate (MAGNESIUM SULFATE 2GM/SWFI 50ML) 50 ML ONCE ONE IV ( CAN) Magnesium Sulfate (MAGNESIUM SULFATE 2GM/SWFI 50ML) 50 ML ONCE ONE IV ( DC) Potassium Chloride (POTASSIUM CHLORIDE 20MEQ TAB.ER) 40 MEQ ONCE ONE PO (DC) Potassium Chloride (POTASSIUM CHLORIDE 20MEQ TAB.ER) 40 MEQ DAILY PRN PRN PO Furosemide (LASIX 40 mg/4 mL INJECTION) 40 MG ONCE ONE IV (DC) Lidocaine (LIDODERM) 1 PATCH DAILY TOPICAL Furosemide (LASIX 20MG INJ) 20 MG BLOOD-DOSE BETWEEN IV (CKD) Insulin Human Lispro (HUMALOG) 0 AC HS SUBQ Dextrose/Water (DEXTROSE 50% W SYRINGE) 25 ML ASDIR PRN IV (CKD) Dextrose/Water (DEXTROSE 50% W SYRINGE) 50 ML ASDIR PRN IV (CKD) Glucagon (GLUCAGON) 1 MG ASDIR PRN IM Aspirin (ASPIRIN) 81 MG DAILY PO Clopidogrel Bisulfate (Plavix) 75 MG DAILY PO Duloxetine HCl (CYMBALTA) 20 MG DAILY PO Losartan Potassium (COZAAR) 50 MG DAILY PO Sodium Chloride (SODIUM CHLORIDE 0.9%) 500 ML DAILY MISC Atorvastatin Calcium (LIPITOR) 40 MG BEDTIME PO Gabapentin (NEURONTIN) 600 MG BID PO Insulin Glargine (Lantus/Semglee) 25 UNIT BEDTIME SUBQ Metoprolol Succinate (TOPROL XL) 12.5 MG [...] Tests 06/28 06/28 06/27 06/27 06/27 0726 6146 4914 1558 1456 Chemistry Sodium (134 - 147 [...] (Auto) (14.0 - 32.0 %) 10.6 L Mcnairy % (Auto) (4.8 - 9.0 %) 8.6 Eos % (Auto) (0.3 - 3.7 %) 2.7 Baso % (Auto) (0.0 - 2.0 %) 0.3 Neut # (Auto) (2.0 - 7.6 x10 3/uL) 6.99 Lymph # (Auto) (1.0 - 3.8 x10 3/uL) 0.96 L Mcnairy # (Auto) (0.1 - 0.8 x10 3/uL) 0.78 Eos # (Auto) (0.0 - 0.2 x10 3/uL) 0.24 H Baso # (Auto) (0.0 - 0.2 x10 3/uL) 0.03 Abs Immat Gran (auto) (0.00 - 0.03 x10 3/uL) 0.04 H Add Manual Diff NO Immature Gran % (0.0 - 2.0 %) 0.4 Nucleated RBC % (0 - 0 %) 0.0 Nucleated RBCs # (Man) (0.0 - 0.1 x10 3/uL) 0.00 Diagnosis, Assessment Plan Hospital course to date: Ms. Martinez is a 61-year-old female who had an Impella placed for cardiogenic shock. She has recovered completely and she was ready for the Impella to be removed today. The patient was taken to the label designer, and after removal of Impella, attempts were made to close the common femoral artery defect with Perclose device unsuccessfully. The patient developed significant right groin hematoma and hence intraoperative cardiovascular consult was obtained. 1. Exploration of right common femoral artery. 2. Repair of right common femoral artery. 06/26 Doing well, alert and oriented Monitor right groin hematoma. Groin soft, mild tenderness Bilateral feet with palpable pulses Hemodynamically stable, sinus rhythm 70s Hemoglobin dropped to 6.7. 1 unit of RBCs being transfused Obtain right groin arterial ultrasound to rule out pseudoaneurysm Pt seen with Dr Whitt 06/27 Remains in stable condition Hemoglobin 7.6 from 6.7 after transfusion of 1 unit or RBCs Right groin ultrasound negative for pseudoaneurysm Continue to monitor Discussed with Dr Whitt 06/28 Remains in stable condition Hemoglobin 8.2 from 7.6>6.7 Right groin ultrasound negative for pseudoaneurysm FOBT negative Continue to monitor Transfer to [facility] Discussed with Dr Whitt Consultants: cardiology, cardiovascular surgery, critical/master steam yacht, hospitalist at 1219 at 1825 RPT #:[id number] [facility] 2021-06-27 15:19:00 [facility] Hospitalist Progress Note REPORT#:[id number] REPORT STATUS: Signed DATE:06/27/21 TIME: 1518 PATIENT: MARINA MARTINEZ UNIT #: [id number] ROOM/BED: [place] [id number] : 64 AGE: 61 SEX: F ATTEND: Alejandra Zeng MD ADM AUTHOR: Brea Mitchell MAIL HANDLER ASSISTANT * ALL edits or amendments must be made on the electronic/computer document * Subjective Chief complaint: she complaint of right groin pain Review of Systems Respiratory: Denies: ELLIS (dyspnea on exertion), SOB, wheezing. Cardiovascular: Denies: chest pain, ELLIS (dyspnea on exertion). GI: Denies: abdominal pain, nausea, vomiting. Musculoskeletal: Other musculoskeletal: Reports: other (right groin pain). Objective General VS/I O: Vital Signs: Date Time Temp Pulse Resp B/P B/P Pulse O2 O2 Flow FiO2 Mean Ox Delivery Rate 06/27 1124 [...] Calcium Chloride (CALCIUM CHLORIDE) 1 GM ONCE ONE IV (DC) Sodium Chloride (SODIUM CHLORIDE 0.9%) 100 ML Magnesium Sulfate (MAGNESIUM SULFATE 2GM/SWFI 50ML) 50 ML ONCE ONE IV ( DC) Potassium Chloride (POTASSIUM CHLORIDE 20MEQ TAB.ER) 20 MEQ ONCE ONE PO (DC) Sodium Bicarbonate (SODIUM BICARBONATE) 100 MEQ ONCE ONE IV (DC) Magnesium Sulfate (MAGNESIUM SULFATE 2GM/SWFI 50ML) 50 ML ONCE ONE IV ( PEND) Magnesium Sulfate (MAGNESIUM SULFATE 2GM/SWFI 50ML) 50 ML ONCE ONE IV ( DC) Potassium Chloride (POTASSIUM CHLORIDE 20MEQ TAB.ER) 40 MEQ ONCE ONE PO (DC) Potassium Chloride (POTASSIUM CHLORIDE 20MEQ TAB.ER) 40 MEQ DAILY PRN PRN PO Furosemide (LASIX 40 mg/4 mL INJECTION) 40 MG ONCE ONE IV (DC) Lidocaine (LIDODERM) 1 PATCH DAILY TOPICAL Furosemide (LASIX 20MG INJ) 20 MG BLOOD-DOSE BETWEEN IV (CKD) Insulin Human Lispro (HUMALOG) 0 AC HS SUBQ Dextrose/Water (DEXTROSE 50% W SYRINGE) 25 ML ASDIR PRN IV (CKD) Dextrose/Water (DEXTROSE 50% W SYRINGE) 50 ML ASDIR PRN IV (CKD) Glucagon (GLUCAGON) 1 MG ASDIR PRN IM Aspirin (ASPIRIN) 81 MG DAILY PO Clopidogrel Bisulfate (Plavix) 75 MG DAILY PO Duloxetine HCl (CYMBALTA) 20 MG DAILY PO Losartan Potassium (COZAAR) 50 MG DAILY PO Sodium Chloride (SODIUM CHLORIDE 0.9%) 500 ML DAILY MISC Atorvastatin Calcium (LIPITOR) 40 MG BEDTIME PO Gabapentin (NEURONTIN) 600 MG BID PO Insulin Glargine (Lantus/Semglee) 25 UNIT BEDTIME SUBQ Metoprolol Succinate (TOPROL XL) 12.5 MG [...] appearance: alert, awake, oriented Head/Eyes: atraumatic, normal conjunctiva/sclera, normal eyelids/periorb., normocephalic Neck: full range of motion, non-tender, normal thyroid, no JVD Cardiovascular: normal heart sounds, regular rate rhythm Respiratory: aerating well, clear to auscultation Abdomen: non-tender, normal bowel sounds, soft, no distention Extremities: moves all, no calf tenderness, no edema Neuro/INSPECTOR FIREARMS: alert, oriented X 3, CNII-XII intact, normal [...] (Auto) (14.0 - 32.0 %) 13.7 L Mcnairy % (Auto) (4.8 - 9.0 %) 9.1 H Eos % (Auto) (0.3 - 3.7 %) 3.2 Baso % (Auto) (0.0 - 2.0 %) 0.3 Neut # (Auto) (2.0 - 7.6 x10 3/uL) 6.33 Lymph # (Auto) (1.0 - 3.8 x10 3/uL) 1.19 Mcnairy # (Auto) (0.1 - 0.8 x10 3/uL) 0.79 Eos # (Auto) (0.0 - 0.2 x10 3/uL) 0.28 H Baso # (Auto) (0.0 - 0.2 x10 3/uL) 0.03 Abs Immat Gran (auto) (0.00 - 0.03 x10 3/uL) 0.05 H Add Manual Diff NO Immature Gran % (0.0 - 2.0 %) 0.6 Nucleated RBC % (0 - 0 %) 0.0 Nucleated RBCs # (Man) (0.0 - 0.1 x10 3/uL) 0.00 Microbiology Date/Time Procedure - Status Source Growth 06/26 1903 Occult Blood - COMP STOOL Diagnosis, Assessment Plan Consultants: cardiology, cardiovascular surgery, critical/master steam yacht, hospitalist Free Text DxA P Notes Free [...] Anemia hemoglobin 6.7, s/p 1 unit of blood ........ hypomagnesia magnesium replaced ........ complaining of [...] Heparin Sodium/ 1,000 ML .STK-MED ONE 06/24 1641 DC 06/24 Sodium Chloride IV 1705 Insulin Human Lispro 0 AC HS 06/24 1630 AC SUBQ 07/24 1629 Methylprednisolone 0 .STK-MED ONE 06/24 1629 DC 06/24 Sodium Succinate IV 1705 Norepinephrine 250 ML .STK-MED ONE 06/24 1626 DC 06/24 Bitartrate IV 1705 Phenylephrine HCl 0 .STK-MED ONE 06/24 1607 DC 06/24 I-CHAVEZ 1705 Fentanyl Citrate 0 .STK-MED ONE 06/24 1533 DC 06/24 .ROUTE 1539 Heparin Sodium/ 500 ML .STK-MED ONE 06/24 1533 DC 06/24 Sodium Chloride IV 1539 Lidocaine HCl 0 .STK-MED ONE 06/24 1533 DC 06/24 .ROUTE 1539 Midazolam HCl 0 .STK-MED ONE 06/24 1532 DC 06/24 .ROUTE 1539 Dextrose/Water 25 ML ASDIR PRN [...] Potassium 50 MG DAILY 06/24 0900 AC 06/24 PO 07/24 0859 0916 Sodium Chloride 500 ML DAILY 06/24 0900 AC MISC 07/24 0859 Magnesium Sulfate 50 ML ONCE ONE 06/24 0830 DC 06/24 IV 06/24 1029 0921 Atorvastatin Calcium 40 MG BEDTIME 06/23 2100 AC 06/23 PO 07/23 205 2032 Gabapentin 600 MG BID 06/23 2100 AC 06/24 PO 07/23 2059 0916 Insulin Glargine 25 UNIT BEDTIME 06/23 2100 AC 06/23 SUBQ 07/23 2059 2030 Metoprolol Succinate 12.5 MG BID 06/23 2100 AC 06/24 PO 07/23 2059 0917 Mupirocin 1 APPLIC BID 06/23 2100 AC 06/24 NASAL 06/28 0901 0916 Insulin Human Lispro 0 AC HS 06/23 1800 DC 06/24 SUBQ 07/23 1749 0916 Dextrose/Water 25 ML ASDIR PRN 06/23 1730 DC IV 07/23 1729 Dextrose/Water 50 ML ASDIR PRN 06/23 1730 DC IV 07/23 1729 Glucagon 1 MG ASDIR PRN 06/23 1730 AC IM 07/23 1729 Heparin Sodium 0 ASDIR PRN 06/23 1730 AC IV 07/23 1729 Heparin Sodium 500 ML ASDIR 06/23 1730 CKD 06/24 (Porcine) IV 07/23 1729 0301 Hydrocodone Bitart/ 1 TAB Q6H PRN PRN 06/23 1730 AC Acetaminophen PO 06/28 1729 Morphine Sulfate 4 MG Q2H PRN PRN 06/23 1730 AC 06/24 IV 06/28 1729 0634 Ondansetron HCl 4 MG Q8H PRN PRN 06/23 1730 AC IV 07/23 1729 Sodium Chloride 1,000 ML .Q10H 06/23 1730 AC 14 IV 07/23 1729 1436 Atropine Sulfate 0.5 MG ASDIR PRN 06/23 1430 DC IV 06/24 1423 Heparin Sodium 12,500 UNIT DAILY PRN PRN 06/23 1430 AC Dextrose/Water 500 ML I-CATHETER 07/23 1429 Heparin Sodium/ 500 ML DAILY PRN PRN 06/23 1430 AC 06/23 Dextrose I-CATHETER 07/23 1429 2302 Sodium Chloride 1,000 ML .[id number] 06/23 1430 DC 06/23 IV 06/24 0349 [...] ANGINA CLOPIDOGREL (PLAVIX) 75 MG PO DAILY at 1522 RPT #:[id number] [facility] 2021-06-27 11:25:00 [facility] Cardiothoracic Surgery Prog REPORT#:[id number] REPORT STATUS: Signed DATE:06/27/21 TIME: 1124 PATIENT: MARINA MARTINEZ UNIT #: [id number] ROOM/BED: [address] : 64 AGE: 61 SEX: F ATTEND: Alejandra Zeng MD ADM AUTHOR: Loly Agee NP * ALL edits or amendments must be made on the electronic/computer document * General Post-op: day 3 Status post: 06/24 S/p 1. Exploration of right common femoral artery. 2. Repair of right common femoral artery. Subjective Chief Complaint: Follow up right groin exploration Review of Systems Constitutional: Denies: fever, malaise. Allergy/Immun: Denies: allergic reaction. Respiratory: Denies: SOB. GI: Denies: abdominal pain, nausea, vomiting. Heme: Reports: other (right groin tenderness ). Denies: bleeding. Neuro: Denies: dizziness, headache, vision [...] Physical Exam General appearance: alert, oriented, pleasant, mental status normal, no respiratory distress Wound/incision: Location: right groin Site condition: dressing intact HEENT: anicteric Neck: supple/no meningismus Cardiovascular: normal heart sounds, regular rate rhythm Respiratory: aerating well, clear to auscultation, symmetric expansion, no distress Abdomen: soft, non-tender, no distention Genitourinary: hilliard Extremities: pedal pulses, moves all Neuro/INSPECTOR FIREARMS: alert, oriented X 3, normal speech, no motor deficits Psychiatry: normal affect, normal mood Current Medications Medications: Active Meds + DC'd Last 24 Hrs Magnesium Sulfate (MAGNESIUM SULFATE 2GM/SWFI 50ML) 50 ML ONCE ONE IV Potassium Chloride (POTASSIUM CHLORIDE 20MEQ TAB.ER) 40 MEQ ONCE ONE PO (DC) Potassium Chloride (POTASSIUM CHLORIDE 20MEQ TAB.ER) 40 MEQ DAILY PRN PRN PO Furosemide (LASIX 40 mg/4 mL INJECTION) 40 MG ONCE ONE IV (DC) Lidocaine (LIDODERM) 1 PATCH DAILY TOPICAL Furosemide (LASIX 20MG INJ) 20 MG BLOOD-DOSE BETWEEN IV (CKD) Insulin Human Lispro (HUMALOG) 0 AC HS SUBQ Dextrose/Water (DEXTROSE 50% W SYRINGE) 25 ML ASDIR PRN IV (CKD) Dextrose/Water (DEXTROSE 50% W SYRINGE) 50 ML ASDIR PRN IV (CKD) Glucagon (GLUCAGON) 1 MG ASDIR PRN IM Aspirin (ASPIRIN) 81 MG DAILY PO Clopidogrel Bisulfate (Plavix) 75 MG DAILY PO Duloxetine HCl (CYMBALTA) 20 MG DAILY PO Losartan Potassium (COZAAR) 50 MG DAILY PO Sodium Chloride (SODIUM CHLORIDE 0.9%) 500 ML DAILY MISC Atorvastatin Calcium (LIPITOR) 40 MG BEDTIME PO Gabapentin (NEURONTIN) 600 MG BID PO Insulin Glargine (Lantus/Semglee) 25 UNIT BEDTIME SUBQ Metoprolol Succinate (TOPROL XL) 12.5 MG [...] (Auto) (14.0 - 32.0 %) 13.7 L Mcnairy % (Auto) (4.8 - 9.0 %) 9.1 H Eos % (Auto) (0.3 - 3.7 %) 3.2 Baso % (Auto) (0.0 - 2.0 %) 0.3 Neut # (Auto) (2.0 - 7.6 x10 3/uL) 6.33 Lymph # (Auto) (1.0 - 3.8 x10 3/uL) 1.19 Mcnairy # (Auto) (0.1 - 0.8 x10 3/uL) 0.79 Eos # (Auto) (0.0 - 0.2 x10 3/uL) 0.28 H Baso # (Auto) (0.0 - 0.2 x10 3/uL) 0.03 Abs Immat Gran (auto) (0.00 - 0.03 x10 3/uL) 0.05 H Add Manual Diff NO Immature Gran % (0.0 - 2.0 %) 0.6 Nucleated RBC % (0 - 0 %) 0.0 Nucleated RBCs # (Man) (0.0 - 0.1 x10 3/uL) 0.00 Microbiology Date/Time Procedure - Status Source Growth 06/26 1902 Occult Blood - COMP STOOL Diagnosis, Assessment Plan Hospital course to date: Ms. Martinez is a 61-year-old female who had an Impella placed for cardiogenic shock. She has recovered completely and she was ready for the Impella to be removed today. The patient was taken to the label designer, and after removal of Impella, attempts were made to close the common femoral artery defect with Perclose device unsuccessfully. The patient developed significant right groin hematoma and hence intraoperative cardiovascular consult was obtained. 1. Exploration of right common femoral artery. 2. Repair of right common femoral artery. 06/26 Doing well, alert and oriented Monitor right groin hematoma. Groin soft, mild tenderness Bilateral feet with palpable pulses Hemodynamically stable, sinus rhythm 70s Hemoglobin dropped to 6.7. 1 unit of RBCs being transfused Obtain right groin arterial ultrasound to rule out pseudoaneurysm Pt seen with Dr Whitt 06/27 Remains in stable condition Hemoglobin 7.6 from 6.7 after transfusion of 1 unit or RBCs Right groin ultrasound negative for pseudoaneurysm Continue to monitor Discussed with Dr Wihtt Consultants: cardiology, cardiovascular surgery, critical/master steam yacht, hospitalist at 1310 at 1219 RPT #:[id number] [facility] 2021-06-27 09:52:00 [facility] ([facility]) Cardiology Progress Note REPORT#:[id number] REPORT STATUS: Signed DATE:06/27/21 TIME: 951 PATIENT: MARINA MARTINEZ UNIT #: [id number] ROOM/BED: [place] [id number] : 64 AGE: 61 SEX: F ATTEND: Alejandra Zeng MD ADM AUTHOR: Zoraida Felder * ALL edits or amendments must be made on the electronic/computer document * Subjective Patient reports: No: complaints. [...] O2 Flow FiO2 Mean Ox Delivery Rate 06/27 0730 [...] 06/26 2000 84 30 113/53 76 97 06/27 1999 37.1 06/26 1913 87 24 126/60 86 98 06/26 1904 109 26 86/57 66 93 06/26 1800 86 20 118/54 78 98 16 1701 83 17 120/56 81 96 06/26 1600 36.8 88 18 128/58 83 97 06/26 1500 83 18 107/52 75 97 16 1400 78 16 119/56 80 99 16 [...] Furosemide (LASIX 20MG INJ) 20 MG BLOOD-DOSE BETWEEN IV (CKD) Insulin Human Lispro (HUMALOG) 0 AC HS SUBQ Dextrose/Water (DEXTROSE 50% W SYRINGE) 25 ML ASDIR PRN IV (CKD) Dextrose/Water (DEXTROSE 50% W SYRINGE) 50 ML ASDIR PRN IV (CKD) Glucagon (GLUCAGON) 1 MG ASDIR PRN IM Aspirin (ASPIRIN) 81 MG DAILY PO Clopidogrel Bisulfate (Plavix) 75 MG DAILY PO Duloxetine HCl (CYMBALTA) 20 MG DAILY PO Losartan Potassium (COZAAR) 50 MG DAILY PO Sodium Chloride (SODIUM CHLORIDE 0.9%) 500 ML DAILY MISC Atorvastatin Calcium (LIPITOR) 40 MG BEDTIME PO Gabapentin (NEURONTIN) 600 MG BID PO Insulin Glargine (Lantus/Semglee) 25 UNIT BEDTIME SUBQ Metoprolol Succinate (TOPROL XL) 12.5 MG BID PO Mupirocin (BACTROBAN 2% 22 GM OINTMENT) 1 APPLIC BID NASAL Glucagon (GLUCAGON) 1 MG ASDIR PRN IM Hydrocodone Bitart/Acetaminophen (NORCO 10/325) 1 TAB Q6H PRN PRN PO Morphine Sulfate (morphine SULFATE) 4 MG Q2H PRN PRN IV Ondansetron HCl (ZOFRAN) 4 MG Q8H PRN PRN IV Physical Exam General appearance: alert, awake, oriented, no acute distress Neck: non-tender, no JVD Cardiovascular: CV assessment: regular rate and rhythm Respiratory: decreased breath sounds, on oxygen, no distress Abdomen: non-tender Genitourinary: hilliard, urine Lower extremity: LE assessment: edema (face and hands), no edema Musculoskeletal: normal inspection Neuro/INSPECTOR FIREARMS: alert, oriented X 3, normal speech Skin: dry, intact, normal color, normal temperature Wound/incision: Location: Rgroin bruise, tender Psychiatry: normal affect, normal judgment/insight, normal mood, no hallucinations Results Findings/Data: Laboratory [...] (Auto) (14.0 - 32.0 %) 13.7 L Mcnairy % (Auto) (4.8 - 9.0 %) 9.1 H Eos % (Auto) (0.3 - 3.7 %) 3.2 Baso % (Auto) (0.0 - 2.0 %) 0.3 Neut # (Auto) (2.0 - 7.6 x10 3/uL) 6.33 Lymph # (Auto) (1.0 - 3.8 x10 3/uL) 1.19 Mcnairy # (Auto) (0.1 - 0.8 x10 3/uL) 0.79 Eos # (Auto) (0.0 - 0.2 x10 3/uL) 0.28 H Baso # (Auto) (0.0 - 0.2 x10 3/uL) 0.03 Abs Immat Gran (auto) (0.00 - 0.03 x10 3/uL) 0.05 H Add Manual Diff NO Immature Gran % (0.0 - 2.0 %) 0.6 Nucleated RBC % (0 - 0 %) 0.0 Nucleated RBCs # (Man) (0.0 - 0.1 x10 3/uL) 0.00 Microbiology Date/Time Procedure - Status Source Growth [...] RCA post balloon angioplasty. Impella LVAD was inserted for stability. This morning [...] 5. RCFA bleeding during Impella removal s/p repair R groin bruise hgb 7.8->7.3->6.7->7.6 s/p i unit 06/26 R groin US no hematoma no pseudoaneurysm 6. Fluid overload - resolving 24H UO 2.3L, negative FB 1.4L will give another IV lasix 40 mg x1 Replace low potassium and low magnesium PT/OT, mobilize OOB Transfer to CV1 DC hilliard catheter at 1040 RPT #:[id number] [facility] 2021-06-27 09:52:00 [facility] Cardiology Progress Note REPORT#:[id number] REPORT STATUS: Signed DATE:06/27/21 TIME: 951 PATIENT: MARINA MARTINEZ UNIT #: [id number] ROOM/BED: [place] [address] : [birth year] AGE: 61 SEX: F ATTEND: Alejandra Zeng MD ADM AUTHOR: Zoraida Felder * ALL edits or amendments must be made on the electronic/computer document * Subjective Patient reports: No: complaints. [...] O2 Flow FiO2 Mean Ox Delivery Rate 06/27 0730 [...] 06/26 2000 84 30 113/53 76 97 06/27 1999 37.1 06/26 1913 87 24 126/60 86 98 06/26 1904 109 26 86/57 66 93 06/26 1800 86 20 118/54 78 98 06/26 1701 83 17 120/56 81 96 06/26 1600 36.8 88 18 128/58 83 97 06/26 1500 83 18 107/52 75 97 06/26 1400 78 16 119/56 80 99 0416 1300 78 21 120/56 80 94 06/26 1200 37.2 79 16 118/54 78 96 0 06/26 1101 82 18 134/53 77 0416 1000 77 13 116/55 79 92 PATIENT WEIGHT: Weight (lb): 212 Weight (oz): 1.36 Weight (kg): 96.200 Medications: Active Meds + DC'd Last 24 Hrs Lidocaine (LIDODERM) 1 PATCH DAILY TOPICAL Furosemide (LASIX 20MG INJ) 20 MG BLOOD-DOSE BETWEEN IV (CKD) Insulin Human Lispro (HUMALOG) 0 AC HS SUBQ Dextrose/Water (DEXTROSE 50% W SYRINGE) 25 ML ASDIR PRN IV (CKD) Dextrose/Water (DEXTROSE 50% W SYRINGE) 50 ML ASDIR PRN IV (CKD) Glucagon (GLUCAGON) 1 MG ASDIR PRN IM Aspirin (ASPIRIN) 81 MG DAILY PO Clopidogrel Bisulfate (Plavix) 75 MG DAILY PO Duloxetine HCl (CYMBALTA) 20 MG DAILY PO Losartan Potassium (COZAAR) 50 MG DAILY PO Sodium Chloride (SODIUM CHLORIDE 0.9%) 500 ML DAILY MISC Atorvastatin Calcium (LIPITOR) 40 MG BEDTIME PO Gabapentin (NEURONTIN) 600 MG BID PO Insulin Glargine (Lantus/Semglee) 25 UNIT BEDTIME SUBQ Metoprolol Succinate (TOPROL XL) 12.5 MG BID PO Mupirocin (BACTROBAN 2% 22 GM OINTMENT) 1 APPLIC BID NASAL Glucagon (GLUCAGON) 1 MG ASDIR PRN IM Hydrocodone Bitart/Acetaminophen (NORCO 10/325) 1 TAB Q6H PRN PRN PO Morphine Sulfate (morphine SULFATE) 4 MG Q2H PRN PRN IV Ondansetron HCl (ZOFRAN) 4 MG Q8H PRN PRN IV Physical Exam General appearance: alert, awake, oriented, no acute distress Neck: non-tender, no JVD Cardiovascular: CV assessment: regular rate and rhythm Respiratory: decreased breath sounds, on oxygen, no distress Abdomen: non-tender Genitourinary: hilliard, urine Lower extremity: LE assessment: edema (face and hands), no edema Musculoskeletal: normal inspection Neuro/INSPECTOR FIREARMS: alert, oriented X 3, normal speech Skin: dry, intact, normal color, normal temperature Wound/incision: Location: Rgroin bruise, tender Psychiatry: normal affect, normal judgment/insight, normal mood, no hallucinations Results Findings/Data: Laboratory Tests 06/27 06/27 06/26 06/26 06/26 4310 2671 2005 1749 1209 Chemistry Sodium (134 - [...] (Auto) (14.0 - 32.0 %) 13.7 L Mcnairy % (Auto) (4.8 - 9.0 %) 9.1 H Eos % (Auto) (0.3 - 3.7 %) 3.2 Baso % (Auto) (0.0 - 2.0 %) 0.3 Neut # (Auto) (2.0 - 7.6 x10 3/uL) 6.33 Lymph # (Auto) (1.0 - 3.8 x10 3/uL) 1.19 Mcnairy # (Auto) (0.1 - 0.8 x10 3/uL) 0.79 Eos # (Auto) (0.0 - 0.2 x10 3/uL) 0.28 H Baso # (Auto) (0.0 - 0.2 x10 3/uL) 0.03 Abs Immat Gran (auto) (0.00 - 0.03 x10 3/uL) 0.05 H Add Manual Diff NO Immature Gran % (0.0 - 2.0 %) 0.6 Nucleated RBC % (0 - 0 %) 0.0 Nucleated RBCs # (Man) (0.0 - 0.1 x10 3/uL) 0.00 Microbiology Date/Time Procedure - Status Source Growth [...] RCA post balloon angioplasty. Impella LVAD was inserted for stability. This morning [...] 5. RCFA bleeding during Impella removal s/p repair R groin bruise hgb 7.8->7.3->6.7->7.6 s/p i unit 06/26 R groin US no hematoma no pseudoaneurysm 6. Fluid overload - resolving 24H UO 2.3L, negative FB 1.4L will give another IV lasix 40 mg x1 Replace low potassium and low magnesium PT/OT, mobilize OOB Transfer to CV1 DC hilliard catheter at 1040 at 0802 RPT #:[id number] END OF REPORT [facility] 2021-06-26 15:01:00 [facility] ([facility]) Hospitalist Progress Note REPORT#:[id number] REPORT STATUS: Signed DATE:06/26/21 TIME: 1501 PATIENT: MARINA MARTINEZ UNIT #: [id number] ROOM/BED: [place] [id number] : 64 AGE: 61 SEX: F ATTEND: Alejandra Zeng MD ADM AUTHOR: Brea Mitchell MAIL HANDLER ASSISTANT * ALL edits or amendments must be made on the electronic/computer document * Subjective Chief complaint: she complaint of right groin pain and shortness of breath Review of Systems Respiratory: Reports: SOB. Denies: ELLIS (dyspnea on exertion). Cardiovascular: Denies: chest pain, ELLIS (dyspnea on exertion), palpitations. GI: Denies: abdominal pain, nausea, vomiting. Musculoskeletal: Extremity pain: Reports: right lower (groin). Objective General VS/I O: Vital Signs: Date Time Temp Pulse Resp B/P B/P Pulse O2 O2 Flow FiO2 Mean Ox Delivery Rate 06/26 1200 37.2 79 16 118/54 78 96 0 06/26 1101 82 18 134/53 77 / 1000 77 13 116/55 79 92 06/26 0900 86 19 132/66 91 65 06/26 0800 36.9 86 17 127/59 85 92 0 06/26 0730 Nasal 2 cannula 06/26 0722 94 Room air 06/26 0700 87 18 125/56 80 91 06/26 0633 37.2 84 21 130/61 92 / 0610 37.6 85 18 130/61 92 / 0600 85 19 130/61 88 91 / 0501 92 29 133/58 83 82 / 0405 37.7 / 0400 83 16 103/51 73 98 / 0300 83 16 95/50 70 98 / 0200 82 16 95/53 70 98 / 0100 86 16 97/48 69 99 06/26 [...] Furosemide (LASIX 20MG INJ) 20 MG BLOOD-DOSE BETWEEN IV (CKD) Magnesium Sulfate (MAGNESIUM SULFATE 2GM/SWFI 50ML) 50 ML ONCE ONE IV ( DC) Furosemide (LASIX 40 mg/4 mL INJECTION) 40 MG ONCE ONE IV (DC) Calcium Gluconate/Sodium Chloride (CALCIUM GLUC 2GM/NS 100ML) 100 ML ONCE ONE IV (DC) Insulin Human Lispro (HUMALOG) 0 AC HS SUBQ Dextrose/Water (DEXTROSE 50% W SYRINGE) 25 ML ASDIR PRN IV (CKD) Dextrose/Water (DEXTROSE 50% W SYRINGE) 50 ML ASDIR PRN IV (CKD) Glucagon (GLUCAGON) 1 MG ASDIR PRN IM Aspirin (ASPIRIN) 81 MG DAILY PO Clopidogrel Bisulfate (Plavix) 75 MG DAILY PO Duloxetine HCl (CYMBALTA) 20 MG DAILY PO Losartan Potassium (COZAAR) 50 MG DAILY PO Sodium Chloride (SODIUM CHLORIDE 0.9%) 500 ML DAILY MISC Atorvastatin Calcium (LIPITOR) 40 MG BEDTIME PO Gabapentin (NEURONTIN) 600 MG BID PO Insulin Glargine (Lantus/Semglee) 25 UNIT BEDTIME SUBQ Metoprolol Succinate (TOPROL XL) 12.5 MG [...] appearance: alert, awake, oriented Head/Eyes: atraumatic, normal conjunctiva/sclera, normal eyelids/periorb., normocephalic Neck: full range of motion, non-tender, normal thyroid, no JVD Cardiovascular: normal heart sounds, regular rate rhythm Respiratory: aerating well, clear to auscultation Abdomen: non-tender, normal bowel sounds, soft, no distention Extremities: moves all, no calf tenderness, no edema Neuro/INSPECTOR FIREARMS: alert, oriented X 3, CNII-XII intact, normal speech, no motor deficits, no sensory deficits Skin: dry, intact, ecchymosis Right groin Results Findings/Data: Laboratory Tests 06/26 06/26 06/26 06/26 06/25 1209 0807 0444 [id number] Chemistry Sodium (134 - 147 mEq/L) 142 [...] MG/DL) 188 H Laboratory Tests 06/26 06/25 4434 1648 Hematology WBC (4.5 - 11.0 x10 [...] (Auto) (14.0 - 32.0 %) 10.3 L Mcnairy % (Auto) (4.8 - 9.0 %) 11.3 H Eos % (Auto) (0.3 - 3.7 %) 1.6 Baso % (Auto) (0.0 - 2.0 %) 0.1 Neut # (Auto) (2.0 - 7.6 x10 3/uL) 6.99 Lymph # (Auto) (1.0 - 3.8 x10 3/uL) 0.95 L Mcnairy # (Auto) (0.1 - 0.8 x10 3/uL) 1.04 H Eos # (Auto) (0.0 - 0.2 x10 3/uL) 0.15 Baso # (Auto) (0.0 - 0.2 x10 3/uL) 0.01 Abs Immat Gran (auto) (0.00 - 0.03 x10 3/uL) 0.05 H Add Manual Diff NO Immature Gran % (0.0 - 2.0 %) 0.5 Nucleated RBC % (0 - 0 %) 0.0 Nucleated RBCs # (Man) (0.0 - 0.1 x10 3/uL) 0.00 Diagnosis, Assessment Plan Consultants: cardiology, cardiovascular surgery, critical/master steam yacht, hospitalist Free Text DxA P Notes Free text DxA P notes: angina /CAD hypotension -- cardiagenic HTN leucocytosis DM HLD anemia -- due to acute blood loss angina/CAD [facility] -- PCI cardiology consult continue home med [...] Anemia hemoglobin 6.7, s/p 1 unit of blood ........ hypomagnesia magnesium replaced ........ complaining of [...] Heparin Sodium/ 1,000 ML .STK-MED ONE 06/24 1641 DC 06/24 Sodium Chloride IV 1705 Insulin Human Lispro 0 AC HS 06/24 1630 AC SUBQ 07/24 1629 Methylprednisolone 0 .STK-MED ONE 06/24 1629 DC 06/24 Sodium Succinate IV 1705 Norepinephrine 250 ML .STK-MED ONE 06/24 1626 DC 06/24 Bitartrate IV 1705 Phenylephrine HCl 0 .STK-MED ONE 06/24 1607 DC 06/24 I-CHAVEZ 1705 Fentanyl Citrate 0 .STK-MED ONE 06/24 1533 DC 06/24 .ROUTE 1539 Heparin Sodium/ 500 ML .STK-MED ONE 06/24 1533 DC 06/24 Sodium Chloride IV 1539 Lidocaine HCl 0 .STK-MED ONE 06/24 1533 DC 06/24 .ROUTE 1539 Midazolam HCl 0 .STK-MED ONE 06/24 1532 DC 06/24 .ROUTE 1539 Dextrose/Water 25 ML ASDIR PRN [...] Potassium 50 MG DAILY 06/24 0900 AC 06/24 PO 07/24 0859 0916 Sodium Chloride 500 ML DAILY 06/24 0900 AC MISC 07/24 0859 Magnesium Sulfate 50 ML ONCE ONE 06/24 0830 DC 06/24 IV 06/24 1029 0921 Atorvastatin Calcium 40 MG BEDTIME 06/23 2100 AC 06/23 PO 07/23 2058 2032 Gabapentin 600 [...] Lispro 0 AC HS 06/23 1800 DC 06/24 SUBQ 07/23 1749 0916 Dextrose/Water 25 ML ASDIR PRN 06/23 1730 DC IV 07/23 1729 Dextrose/Water 50 ML ASDIR PRN 06/23 1730 DC IV 07/23 1729 Glucagon 1 MG ASDIR PRN 06/23 1730 AC IM 07/23 1729 Heparin Sodium 0 ASDIR PRN 06/23 1730 AC IV 07/23 1729 Heparin Sodium 500 ML ASDIR 06/23 1730 CKD 06/24 (Porcine) IV 07/23 1729 0301 Hydrocodone Bitart/ 1 TAB Q6H PRN PRN 06/23 1730 AC Acetaminophen PO 06/28 1729 Morphine Sulfate 4 MG Q2H PRN PRN 06/23 1730 AC 06/24 IV 06/28 1729 0634 Ondansetron HCl 4 MG Q8H PRN PRN 06/23 1730 AC IV 07/23 1729 Sodium Chloride 1,000 ML .Q10H 06/23 1730 AC 06/24 IV 07/23 1729 1436 Atropine Sulfate 0.5 MG ASDIR PRN 06/23 1430 DC IV 06/24 1423 Heparin Sodium 12,500 UNIT DAILY PRN PRN 06/23 1430 AC Dextrose/Water 500 ML I-CATHETER 07/23 1429 Heparin Sodium/ 500 ML DAILY PRN PRN 06/23 1430 AC 06/23 Dextrose I-CATHETER 07/23 1429 2302 Sodium Chloride 1,000 ML .[id number] 06/23 1430 DC 06/23 IV 06/24 0349 [...] ANGINA CLOPIDOGREL (PLAVIX) 75 MG PO DAILY at 1504 [facility] #:[id number] END OF REPORT [facility] 2021-06-26 09:32:00 [facility] ([facility]) Cardiothoracic Surgery Prog REPORT#:[id number] REPORT STATUS: Signed DATE:06/26/21 TIME: 931 PATIENT: MARINA MARTINEZ UNIT #: [id number] ROOM/BED: [place] [id number] : 64 AGE: 61 SEX: F ATTEND: Alejandra Zeng MD ADM AUTHOR: Loly Agee NP * ALL edits or amendments must be made on the electronic/computer document * General Post-op: day 2 Status [...] Physical Exam General appearance: alert, oriented, pleasant, mental status normal, no respiratory distress Wound/incision: Location: right groin Site condition: dressing intact HEENT: anicteric Neck: supple/no meningismus Cardiovascular: normal heart sounds, regular rate rhythm Respiratory: aerating well, clear to auscultation, symmetric expansion, no distress Abdomen: soft, non-tender, no distention Genitourinary: hilliard Extremities: pedal pulses, moves all Neuro/INSPECTOR FIREARMS: alert, oriented X 3, normal speech, no motor deficits Psychiatry: normal affect, normal mood Current Medications Medications: Active Meds + DC'd Last 24 Hrs Lidocaine (LIDODERM) 1 PATCH DAILY TOPICAL Furosemide (LASIX 20MG INJ) 20 MG BLOOD-DOSE BETWEEN IV (CKD) Magnesium Sulfate (MAGNESIUM SULFATE 2GM/SWFI 50ML) 50 ML ONCE ONE IV ( DC) Furosemide (LASIX 40 mg/4 mL INJECTION) 40 MG ONCE ONE IV (DC) Calcium Gluconate/Sodium Chloride (CALCIUM GLUC 2GM/NS 100ML) 100 ML ONCE ONE IV (DC) Furosemide (LASIX 40 mg/4 mL INJECTION) 40 MG ONCE ONE IV (DC) Calcium Chloride (CALCIUM CHLORIDE) 2 GM ONCE ONE IV (DC) Sodium Chloride (SODIUM CHLORIDE 0.9%) 100 ML Insulin Human Lispro (HUMALOG) 0 AC HS SUBQ Dextrose/Water (DEXTROSE 50% W SYRINGE) 25 ML ASDIR PRN IV (CKD) Dextrose/Water (DEXTROSE 50% W SYRINGE) 50 ML ASDIR PRN IV (CKD) Glucagon (GLUCAGON) 1 MG ASDIR PRN IM Aspirin (ASPIRIN) 81 MG DAILY PO Clopidogrel Bisulfate (Plavix) 75 MG DAILY PO Duloxetine HCl (CYMBALTA) 20 MG DAILY PO Isosorbide Dinitrate (ISORDIL) 60 MG DAILY PO (DC) Losartan Potassium (COZAAR) 50 MG DAILY PO Sodium Chloride (SODIUM CHLORIDE 0.9%) 500 ML DAILY MISC Atorvastatin Calcium (LIPITOR) 40 MG BEDTIME PO Gabapentin (NEURONTIN) 600 MG BID PO Insulin Glargine (Lantus/Semglee) 25 UNIT BEDTIME SUBQ Metoprolol Succinate (TOPROL XL) 12.5 MG [...] (DC) Heparin Sodium (HEPARIN 5000 UNITS/ML) 12,500 UNIT DAILY PRN PRN I- CATHETER (DC) Dextrose/Water (DEXTROSE 5% WATER) 500 ML Heparin Sodium/Dextrose (HEPARIN 25,000 UNITS/D5W 500ML) 500 ML DAILY PRN PRN I-CATHETER (DC) Results Findings/Data: Laboratory Tests 06/2607 4434 Chemistry Sodium (134 - 147 mEq/L) 142 [...] (Auto) (14.0 - 32.0 %) 10.3 L Mcnairy % (Auto) (4.8 - 9.0 %) 11.3 H Eos % (Auto) (0.3 - 3.7 %) 1.6 Baso % (Auto) (0.0 - 2.0 %) 0.1 Neut # (Auto) (2.0 - 7.6 x10 3/uL) 6.99 Lymph # (Auto) (1.0 - 3.8 x10 3/uL) 0.95 L Mcnairy # (Auto) (0.1 - 0.8 x10 3/uL) 1.04 H Eos # (Auto) (0.0 - 0.2 x10 3/uL) 0.15 Baso # (Auto) (0.0 - 0.2 x10 3/uL) 0.01 Abs Immat Gran (auto) (0.00 - 0.03 x10 3/uL) 0.05 H Add Manual Diff NO Immature Gran % (0.0 - 2.0 %) 0.5 Nucleated RBC % (0 - 0 %) 0.0 Nucleated RBCs # (Man) (0.0 - 0.1 x10 3/uL) 0.00 Radiology data: Recent Impressions: RADIOLOGY - XR CHEST 1 V 06/26 0611 Report Impression - Status: SIGNED Entered: 06/26/2021 0751 IMPRESSION: No obvious infiltrates or consolidations. Impression By: [email or web address] Virgil Weiner M.D. Diagnosis, Assessment Plan Hospital course to date: Ms. Martinez is a 61-year-old female who had an Impella placed for cardiogenic shock. She has recovered completely and she was ready for the Impella to be removed today. The patient was taken to the label designer, and after removal of Impella, attempts were made to close the common femoral artery defect with Perclose device unsuccessfully. The patient developed significant right groin hematoma and hence intraoperative cardiovascular consult was obtained. 1. Exploration of right common femoral artery. 2. Repair of right common femoral artery. 06/26 Doing well, alert and oriented Monitor right groin hematoma. Groin soft, mild tenderness Bilateral feet with palpable pulses Hemodynamically stable, sinus rhythm 70s Hemoglobin dropped to 6.7. 1 unit of RBCs being transfused Obtain right groin arterial ultrasound to rule out pseudoaneurysm Pt seen with Dr Whitt Consultants: cardiology, cardiovascular surgery, critical/master steam yacht, hospitalist at 1047 at 1223 RPT #:[id number] [facility] 2021-06-26 09:25:00 [facility]) Cardiology Progress Note REPORT#:[id number] REPORT STATUS: Signed DATE:06/26/21 TIME: 924 PATIENT: MARINA MARTINEZ UNIT #: [id number] ROOM/BED: [place] [id number] : 64 AGE: 61 SEX: F ATTEND: Alejandra Zeng MD ADM AUTHOR: Zoraida Felder AGACNP * ALL edits or amendments must be made on the electronic/computer document * Subjective Patient reports: No: complaints. [...] O2 Flow FiO2 Mean Ox Delivery Rate 06/26 0700 87 18 125/56 80 91 06/26 0633 37.2 84 21 130/61 92 06/26 0610 37.6 85 18 130/61 92 04/16 0600 85 19 130/61 88 91 04/16 0501 92 29 133/58 83 82 04/16 0405 37.7 04/16 0400 83 16 103/51 73 98 04/16 0300 83 16 95/50 70 98 04/16 0200 82 16 95/53 70 98 04/16 0100 86 16 97/48 69 99 04/16 0005 37.2 04/16 0000 85 16 92/46 66 90 04/15 [...] Furosemide (LASIX 20MG INJ) 20 MG BLOOD-DOSE BETWEEN IV (CKD) Magnesium Sulfate (MAGNESIUM SULFATE 2GM/SWFI 50ML) 50 ML ONCE ONE IV ( DC) Furosemide (LASIX 40 mg/4 mL INJECTION) 40 MG ONCE ONE IV (DC) Calcium Gluconate/Sodium Chloride (CALCIUM GLUC 2GM/NS 100ML) 100 ML ONCE ONE IV (DC) Furosemide (LASIX 40 mg/4 mL INJECTION) 40 MG ONCE ONE IV (DC) Calcium Chloride (CALCIUM CHLORIDE) 2 GM ONCE ONE IV (DC) Sodium Chloride (SODIUM CHLORIDE 0.9%) 100 ML Insulin Human Lispro (HUMALOG) 0 AC HS SUBQ Dextrose/Water (DEXTROSE 50% W SYRINGE) 25 ML ASDIR PRN IV (CKD) Dextrose/Water (DEXTROSE 50% W SYRINGE) 50 ML ASDIR PRN IV (CKD) Glucagon (GLUCAGON) 1 MG ASDIR PRN IM Aspirin (ASPIRIN) 81 MG DAILY PO Clopidogrel Bisulfate (Plavix) 75 MG DAILY PO Duloxetine HCl (CYMBALTA) 20 MG DAILY PO Isosorbide Dinitrate (ISORDIL) 60 MG DAILY PO (DC) Losartan Potassium (COZAAR) 50 MG DAILY PO Sodium Chloride (SODIUM CHLORIDE 0.9%) 500 ML DAILY MISC Atorvastatin Calcium (LIPITOR) 40 MG BEDTIME PO Gabapentin (NEURONTIN) 600 MG BID PO Insulin Glargine (Lantus/Semglee) 25 UNIT BEDTIME SUBQ Metoprolol Succinate (TOPROL XL) 12.5 MG [...] (DC) Heparin Sodium (HEPARIN 5000 UNITS/ML) 12,500 UNIT DAILY PRN PRN I- CATHETER (DC) Dextrose/Water (DEXTROSE 5% WATER) 500 ML Heparin Sodium/Dextrose (HEPARIN 25,000 UNITS/D5W 500ML) 500 ML DAILY PRN PRN I-CATHETER (DC) Physical Exam General appearance: alert, awake, oriented, no acute distress Neck: non-tender, no JVD Cardiovascular: CV assessment: regular rate and rhythm Respiratory: decreased breath sounds, on oxygen, no distress Abdomen: non-tender Genitourinary: hilliard, urine Lower extremity: LE assessment: edema (face and hands), no edema Musculoskeletal: normal inspection Neuro/INSPECTOR FIREARMS: alert, oriented X 3, normal speech Skin: dry, intact, normal color, normal temperature Wound/incision: Location: Rgroin bruise, tender Psychiatry: normal affect, normal judgment/insight, normal mood, no hallucinations Results Findings/Data: Laboratory [...] (Auto) (14.0 - 32.0 %) 10.3 L Mcnairy % (Auto) (4.8 - 9.0 %) 11.3 H Eos % (Auto) (0.3 - 3.7 %) 1.6 Baso % (Auto) (0.0 - 2.0 %) 0.1 Neut # (Auto) (2.0 - 7.6 x10 3/uL) 6.99 Lymph # (Auto) (1.0 - 3.8 x10 3/uL) 0.95 L Mcnairy # (Auto) (0.1 - 0.8 x10 3/uL) 1.04 H Eos # (Auto) (0.0 - 0.2 x10 3/uL) 0.15 Baso # (Auto) (0.0 - 0.2 x10 3/uL) 0.01 Abs Immat Gran (auto) (0.00 - 0.03 x10 3/uL) 0.05 H Add Manual Diff NO Immature Gran % (0.0 - 2.0 %) 0.5 Nucleated RBC % (0 - 0 %) 0.0 Nucleated RBCs # (Man) (0.0 - 0.1 x10 3/uL) 0.00 Laboratory Tests 06/26 06/26 0444 0444 Chemistry [...] RCA post balloon angioplasty. Impella LVAD was inserted for stability. This morning [...] 5. RCFA bleeding during Impella removal s/p repair R groin bruise hgb 7.8->7.3->6.7 - transfuse 1 unit PRBC, give IV lasix 20 mg post transfusion R groin US 6. Fluid overload - stable post diuresis negtive fluid balance 1.9L given IV Lasix 40 mg x2 with great diuresis PT/OT, mobilize OOB at 1330 RPT #:[id number] [facility] 2021-06-26 09:25:00 [facility] Cardiology Progress Note REPORT#:[id number] REPORT STATUS: Signed DATE:06/26/21 TIME: 924 PATIENT: MARINA MARTINEZ UNIT #: [id number] ROOM/BED: [place] [id number] : 64 AGE: 61 SEX: F ATTEND: Alejandra Zeng MD ADM AUTHOR: Zoraida Felder * ALL edits or amendments must be made on the electronic/computer document * Subjective Patient reports: No: complaints. [...] O2 Flow FiO2 Mean Ox Delivery Rate 06/26 0700 87 18 125/56 80 91 06/26 0633 37.2 84 21 130/61 92 06/26 0610 37.6 85 18 130/61 92 04/16 0600 85 19 130/61 88 91 04/16 0501 92 29 133/58 83 82 04/16 0405 37.7 04/16 0400 83 16 103/51 73 98 04/16 0300 83 16 95/50 70 98 04/16 0200 82 16 95/53 70 98 04/16 0100 86 16 97/48 69 99 04/16 0005 37.2 04/16 0000 85 16 92/46 66 90 04/15 [...] Furosemide (LASIX 20MG INJ) 20 MG BLOOD-DOSE BETWEEN IV (CKD) Magnesium Sulfate (MAGNESIUM SULFATE 2GM/SWFI 50ML) 50 ML ONCE ONE IV ( DC) Furosemide (LASIX 40 mg/4 mL INJECTION) 40 MG ONCE ONE IV (DC) Calcium Gluconate/Sodium Chloride (CALCIUM GLUC 2GM/NS 100ML) 100 ML ONCE ONE IV (DC) Furosemide (LASIX 40 mg/4 mL INJECTION) 40 MG ONCE ONE IV (DC) Calcium Chloride (CALCIUM CHLORIDE) 2 GM ONCE ONE IV (DC) Sodium Chloride (SODIUM CHLORIDE 0.9%) 100 ML Insulin Human Lispro (HUMALOG) 0 AC HS SUBQ Dextrose/Water (DEXTROSE 50% W SYRINGE) 25 ML ASDIR PRN IV (CKD) Dextrose/Water (DEXTROSE 50% W SYRINGE) 50 ML ASDIR PRN IV (CKD) Glucagon (GLUCAGON) 1 MG ASDIR PRN IM Aspirin (ASPIRIN) 81 MG DAILY PO Clopidogrel Bisulfate (Plavix) 75 MG DAILY PO Duloxetine HCl (CYMBALTA) 20 MG DAILY PO Isosorbide Dinitrate (ISORDIL) 60 MG DAILY PO (DC) Losartan Potassium (COZAAR) 50 MG DAILY PO Sodium Chloride (SODIUM CHLORIDE 0.9%) 500 ML DAILY MISC Atorvastatin Calcium (LIPITOR) 40 MG BEDTIME PO Gabapentin (NEURONTIN) 600 MG BID PO Insulin Glargine (Lantus/Semglee) 25 UNIT BEDTIME SUBQ Metoprolol Succinate (TOPROL XL) 12.5 MG [...] (DC) Heparin Sodium (HEPARIN 5000 UNITS/ML) 12,500 UNIT DAILY PRN PRN I- CATHETER (DC) Dextrose/Water (DEXTROSE 5% WATER) 500 ML Heparin Sodium/Dextrose (HEPARIN 25,000 UNITS/D5W 500ML) 500 ML DAILY PRN PRN I-CATHETER (DC) Physical Exam General appearance: alert, awake, oriented, no acute distress Neck: non-tender, no JVD Cardiovascular: CV assessment: regular rate and rhythm Respiratory: decreased breath sounds, on oxygen, no distress Abdomen: non-tender Genitourinary: hilliard, urine Lower extremity: LE assessment: edema (face and hands), no edema Musculoskeletal: normal inspection Neuro/INSPECTOR FIREARMS: alert, oriented X 3, normal speech Skin: dry, intact, normal color, normal temperature Wound/incision: Location: Rgroin bruise, tender Psychiatry: normal affect, normal judgment/insight, normal mood, no hallucinations Results Findings/Data: Laboratory [...] (Auto) (14.0 - 32.0 %) 10.3 L Mcnairy % (Auto) (4.8 - 9.0 %) 11.3 H Eos % (Auto) (0.3 - 3.7 %) 1.6 Baso % (Auto) (0.0 - 2.0 %) 0.1 Neut # (Auto) (2.0 - 7.6 x10 3/uL) 6.99 Lymph # (Auto) (1.0 - 3.8 x10 3/uL) 0.95 L Mcnairy # (Auto) (0.1 - 0.8 x10 3/uL) 1.04 H Eos # (Auto) (0.0 - 0.2 x10 3/uL) 0.15 Baso # (Auto) (0.0 - 0.2 x10 3/uL) 0.01 Abs Immat Gran (auto) (0.00 - 0.03 x10 3/uL) 0.05 H Add Manual Diff NO Immature Gran % (0.0 - 2.0 %) 0.5 Nucleated RBC % (0 - 0 %) 0.0 Nucleated RBCs # (Man) (0.0 - 0.1 x10 3/uL) 0.00 Laboratory Tests 06/26 06/26 0444 0444 Chemistry [...] RCA post balloon angioplasty. Impella LVAD was inserted for stability. This morning [...] 5. RCFA bleeding during Impella removal s/p repair R groin bruise hgb 7.8->7.3->6.7 - transfuse 1 unit PRBC, give IV lasix 20 mg post transfusion R groin US 6. Fluid overload - stable post diuresis negtive fluid balance 1.9L given IV Lasix 40 mg x2 with great diuresis PT/OT, mobilize OOB at 1330 at 0801 RPT #[id number] [facility] 2021-06-25 17:14:00 [id number] [place] [address] PATIENT NAME: MARINA MARTINEZ ADMIT DATE: 06/23/21 ACCOUNT NO: [id number] [place] [facility] [place] 61 REPORT TYPE: eECHOCARDIOGRAM REPORT SEX: F ADMITTING PHYSICIAN:Alejandra Zeng MD ATTENDING PHYSICIAN:Alejandra Zeng MD *[place] [address] Limited Transthoracic Echocardiogram Patient: Marina Martinez Study Date: 06/23/2021 BP: Location: [facility] URN: [id number] : 1960 Age: 61 Height: 60 in / 152.4 cm Gender: F Weight: 213.6 lb / 97.1 kg BMI/BSA: 41.8 kg/m 2 / 1.92 m 2 *Ordering Physician: * Jazmine Pollack NP *Interpreting Physician: * Inga Robertson MD *Inspector Firearms: * Mecca Ewing -------- Study data: Transthoracic echocardiogram, limited study. Limited 2D and limited spectral Doppler. -------- Findings Left ventricle: The cavity size is normal. Wall thickness is normal. Systolic function is normal. The estimated ejection fraction is 55-59%. Wall motion is normal; there are no regional wall motion abnormalities. Impella inplace at 3.4cm. Aorta: Aortic root: The aortic root is normal in size. Pericardium: A trivial pericardial effusion is identified anterior to the heart. Systemic veins: Inferior vena cava: The vessel is normal in size. -------- PATIENT NAME: MARINA MARTINEZ Measurements Left ventricle Value 05/13/2021 Ref IVORY, [...] Ref IVORY, LAX 2.5 cm 3.2 ------- -------- Conclusions Summary: 1. Left ventricle: The cavity size is normal. Wall thickness is normal. Systolic function is normal. The estimated ejection fraction is 55-59%. Wall motion is normal; there are no regional wall motion abnormalities. 2. Pericardium, extracardiac: A trivial pericardial effusion is identified anterior to the heart. Prepared and electronically signed by Inga Robertson MD 06/25/2021 17:13 at 1714 PATIENT NAME: [address] [facility] 2021-06-25 14:35:00 [facility] Cardiothoracic Surgery Prog REPORT#:[id number] REPORT STATUS: Signed DATE:06/25/21 TIME: 1435 PATIENT: MARINA MARTINEZ UNIT #: [id number] ROOM/BED: [place] [id number] : [birth year] AGE: 61 SEX: F ATTEND: Alejandra Zeng MD ADM AUTHOR: Loly Agee MAIL HANDLER ASSISTANT * ALL edits or amendments must be made on the electronic/computer document * General Post-op: day 1 Status [...] (kg): 99.200 Physical Exam General appearance: obese, alert, oriented, mental status normal, no respiratory distress Wound/incision: Location: right groin Site condition: dressing intact HEENT: anicteric Cardiovascular: normal heart sounds, regular rate rhythm Respiratory: aerating well, clear to auscultation, symmetric expansion, no distress Abdomen: soft, non-tender, no distention Extremities: moves all Neuro/INSPECTOR FIREARMS: alert, oriented X 3, normal speech, no motor deficits Psychiatry: normal affect, normal mood Current Medications Medications: Active Meds + DC'd Last 24 Hrs Lidocaine (LIDODERM) 1 PATCH DAILY TOPICAL Furosemide (LASIX 40 mg/4 mL INJECTION) 40 MG ONCE ONE IV (DC) Calcium Chloride (CALCIUM CHLORIDE) 2 GM ONCE ONE IV (DC) Sodium Chloride (SODIUM CHLORIDE 0.9%) 100 ML Insulin Human Regular (HUMAN INSULIN REG) 5 UNITS ONCE ONE IV (DC) Sodium Chloride (SODIUM CHLORIDE 0.9%) 500 ML BOLUS ONCE ONE IV (DC) Dextrose/Water (DEXTROSE 50% W SYRINGE) 50 ML ONCE ONE IV (DC) Insulin Human Regular (HUMAN INSULIN REG) 10 UNITS ONCE ONE IV (DC) Sodium Chloride (SODIUM CHLORIDE 0.9%) 500 ML BOLUS ONCE ONE IV (DC) Calcium Gluconate/Sodium Chloride (CALCIUM GLUC 1GM/NS 50ML) 50 ML ONCE ONE IV (DC) Magnesium Sulfate/Dextrose (MAGNESIUM SULFATE 1GM/D5W 100ML) 100 ML ONCE ONE IV (DC) Dexamethasone Sodium Phosphate (DECADRON) 0 .STK-MED ONE .ROUTE (DC) Lidocaine HCl (XYLOCAINE) 0 .STK-MED ONE .ROUTE (DC) Ondansetron HCl (ZOFRAN) 0 .STK-MED ONE .ROUTE (DC) Sevoflurane (ULTANE) 0 .STK-MED ONE INH (DC) Epinephrine (EPINEPHrine) 0 .STK-MED ONE IV (DC) Sodium Bicarbonate (SODIUM BICARBONATE) 0 .STK-MED ONE IV (DC) Thrombin (RECOTHROM) 0 .STK-MED ONE TOPICAL (DC) Sodium Chloride (SODIUM CHLORIDE 0.9%) 500 ML .STK-MED ONE IV (DC) Etomidate (AMIDATE) 0 .STK-MED ONE IV (DC) Heparin Sodium/Sodium Chloride (HEPARIN 2,000 UNITS/NS 1,000mL) 1,000 ML .STK-MED ONE IV (DC) Insulin Human Lispro (HUMALOG) 0 AC HS SUBQ Methylprednisolone Sodium Succinate (Solu-Medrol 125 MG Vial) 0 .STK-MED ONE IV (DC) Norepinephrine Bitartrate (NOREPINEPHRINE 8 MG/NS 250 ML) 250 ML .STK-MED ONE IV (DC) Phenylephrine HCl (MARYJANE-SYNEPHRINE 1000MCG/NS 10ML INJ) 0 .STK-MED ONE I- CHAVEZ (DC) Fentanyl Citrate (SUBLIMAZE) 0 .STK-MED ONE .ROUTE (DC) Heparin Sodium/Sodium Chloride (HEPARIN 1,000 UNITS/NS 500ML) 500 ML .STK- MED ONE IV (DC) Lidocaine HCl (XYLOCAINE 1%) 0 .STK-MED ONE .ROUTE (DC) Midazolam HCl (VERSED) 0 .STK-MED ONE .ROUTE (DC) Dextrose/Water (DEXTROSE 50% W SYRINGE) 25 ML ASDIR PRN IV (CKD) Dextrose/Water (DEXTROSE 50% W SYRINGE) 50 ML ASDIR PRN IV (CKD) Glucagon (GLUCAGON) 1 MG ASDIR PRN IM Aspirin (ASPIRIN) 81 MG DAILY PO Clopidogrel Bisulfate (Plavix) 75 MG DAILY PO Duloxetine HCl (CYMBALTA) 20 MG DAILY PO Isosorbide Dinitrate (ISORDIL) 60 MG DAILY PO (DC) Losartan Potassium (COZAAR) 50 MG DAILY PO Sodium Chloride (SODIUM CHLORIDE 0.9%) 500 ML DAILY MISC Atorvastatin Calcium (LIPITOR) 40 MG BEDTIME PO Gabapentin (NEURONTIN) 600 MG BID PO Insulin Glargine (Lantus/Semglee) 25 UNIT BEDTIME SUBQ Metoprolol Succinate (TOPROL XL) 12.5 MG BID PO Mupirocin (BACTROBAN 2% 22 GM OINTMENT) 1 APPLIC BID NASAL Glucagon (GLUCAGON) 1 MG ASDIR PRN IM Heparin Sodium (HEPARIN 5000 UNITS/ML) 0 ASDIR PRN IV Heparin Sodium (Porcine) (HEPARIN 25,000 UNITS/ 1/2NS 500ML) 500 ML ASDIR IV (CKD) Hydrocodone Bitart/Acetaminophen (NORCO 10/325) 1 TAB Q6H PRN PRN PO Morphine Sulfate (morphine SULFATE) 4 MG Q2H PRN PRN IV Ondansetron HCl (ZOFRAN) 4 MG Q8H PRN PRN IV Sodium Chloride (SODIUM CHLORIDE 0.9%) 1,000 ML .Q24H IV (DC) Heparin Sodium (HEPARIN 5000 UNITS/ML) 12,500 UNIT DAILY PRN PRN I- CATHETER (DC) Dextrose/Water (DEXTROSE 5% WATER) 500 ML Heparin Sodium/Dextrose (HEPARIN 25,000 UNITS/D5W 500ML) 500 ML DAILY PRN PRN I-CATHETER [...] - 32.0 %) 2.4 L 1.4 L Mcnairy % (Auto) (4.8 - 9.0 %) 6.5 4.3 L Eos % (Auto) (0.3 - 3.7 %) 0.0 L 0.0 L Baso % (Auto) (0.0 - 2.0 %) 0.0 0.1 Neut # (Auto) (2.0 - 7.6 x10 3/uL) 11.23 H 22.66 H Lymph # (Auto) (1.0 - 3.8 x10 3/uL) 0.30 L 0.33 L Mcnairy # (Auto) (0.1 - 0.8 x10 3/uL) 0.80 1.05 H Eos # (Auto) (0.0 - 0.2 x10 3/uL) 0.00 0.00 Baso # (Auto) (0.0 - 0.2 x10 3/uL) 0.00 0.03 Abs Immat Gran (auto) (0.00 - 0.03 x10 3/uL) 0.04 H 0.15 H Add Manual Diff NO NO Immature Gran % (0.0 - 2.0 %) 0.3 0.6 Nucleated RBC % (0 - 0 %) 0.0 0.0 Nucleated RBCs # (Man) (0.0 - 0.1 x10 3/uL) 0.00 0.00 Diagnosis, Assessment Plan Hospital course to date: Ms. Martinez is a 61-year-old female who had an Impella placed for cardiogenic shock. She has recovered completely and she was ready for the Impella to be removed today. The patient was taken to the label designer, and after removal of Impella, attempts were made to close the common femoral artery defect with Perclose device unsuccessfully. The patient developed significant right groin hematoma and hence intraoperative cardiovascular consults were obtained ( Dr Whitt's op report). 1. Exploration of right common femoral artery. 2. Repair of right common femoral artery. 06/25 Doing well, alert and oriented Monitor right groin hematoma. Groin soft, mild tenderness Bilateral feet with palpable pulses Per cardiology, transfer to [address] Whitt Consultants: cardiology, cardiovascular surgery, critical/master steam yacht, hospitalist at 1535 at 0756 RPT #:[id number] [facility] 2021-06-25 13:33:00 [facility] Hospitalist Progress Note REPORT#:[id number] REPORT STATUS: Signed DATE:06/25/21 TIME: 1333 PATIENT: MARINA MARTINEZ UNIT #: [id number] ROOM/BED: 3308-1 : 64 AGE: 61 SEX: F ATTEND: Alejandra Zeng MD ADM AUTHOR: Agnes Almeida MD * ALL edits or amendments must be made on the electronic/computer document * Subjective Chief complaint: she complaint of neck pain Review of Systems Constitutional: Denies: fatigue, fever, lethargy. Respiratory: Denies: productive cough (sputum), SOB, wheezing. Cardiovascular: Denies: chest pain, ELLIS (dyspnea on exertion), edema, orthopnea. GI: Denies: abdominal pain, nausea, vomiting. : Denies: dysuria, flank pain, frequency, hematuria. Objective General VS/I O: Vital Signs: Date Time Temp Pulse Resp B/P B/P Pulse O2 O2 Flow FiO2 Mean Ox Delivery Rate 06/25 0800 75 13 91/45 65 99 06/25 0749 99 Nasal 2 cannula 06/25 0730 Nasal 2 cannula 06/25 0730 80 25 95/44 63 98 04/15 0700 73 13 101/49 71 100 /15 0600 80 18 101/46 67 99 /15 0546 84 28 108/51 74 100 /15 0530 86 11 105/54 75 99 /15 0500 79 12 110/55 77 99 04/15 0430 78 13 107/55 78 99 /15 0415 36.6 /15 0400 78 12 113/55 78 99 /15 [...] 04/14 2345 82 14 94/53 71 92 06/24 2330 89 14 98/51 73 86 06/24 2315 79 19 96/52 64 94 06/24 2300 77 12 115/58 83 94 06/24 2245 75 13 114/58 83 94 06/24 2230 36.1 06/24 2230 Nasal 2 cannula 06/24 2230 75 13 114/51 72 96 06/24 2215 78 15 111/53 77 94 06/24 2200 79 14 105/52 75 100 06/24 2145 79 13 112/53 73 95 06/24 2130 79 14 105/52 72 99 06/24 2115 77 13 99/51 71 100 06/24 2100 74 15 83/46 59 100 06/24 2046 80 20 95/44 64 99 06/24 2030 76 14 119/47 68 100 06/24 2014 79 13 100/49 70 100 06/24 2000 80 12 120/55 79 100 06/24 1945 79 13 117/49 71 100 06/24 [...] (LASIX 40 mg/4 mL INJECTION) 40 MG ONCE ONE IV (DC) Calcium Chloride (CALCIUM CHLORIDE) 2 GM ONCE ONE IV (DC) Sodium Chloride (SODIUM CHLORIDE 0.9%) 100 ML Insulin Human Regular (HUMAN INSULIN REG) 5 UNITS ONCE ONE IV (DC) Sodium Chloride (SODIUM CHLORIDE 0.9%) 500 ML BOLUS ONCE ONE IV (DC) Dextrose/Water (DEXTROSE 50% W SYRINGE) 50 ML ONCE ONE IV (DC) Insulin Human Regular (HUMAN INSULIN REG) 10 UNITS ONCE ONE IV (DC) Sodium Chloride (SODIUM CHLORIDE 0.9%) 500 ML BOLUS ONCE ONE IV (DC) Calcium Gluconate/Sodium Chloride (CALCIUM GLUC 1GM/NS 50ML) 50 ML ONCE ONE IV (DC) Magnesium Sulfate/Dextrose (MAGNESIUM SULFATE 1GM/D5W 100ML) 100 ML ONCE ONE IV (DC) Dexamethasone Sodium Phosphate (DECADRON) 0 .STK-MED ONE .ROUTE (DC) Lidocaine HCl (XYLOCAINE) 0 .STK-MED ONE .ROUTE (DC) Ondansetron HCl (ZOFRAN) 0 .STK-MED ONE .ROUTE (DC) Sevoflurane (ULTANE) 0 .STK-MED ONE INH (DC) Epinephrine (EPINEPHrine) 0 .STK-MED ONE IV (DC) Sodium Bicarbonate (SODIUM BICARBONATE) 0 .STK-MED ONE IV (DC) Thrombin (RECOTHROM) 0 .STK-MED ONE TOPICAL (DC) Sodium Chloride (SODIUM CHLORIDE 0.9%) 500 ML .STK-MED ONE IV (DC) Etomidate (AMIDATE) 0 .STK-MED ONE IV (DC) Heparin Sodium/Sodium Chloride (HEPARIN 2,000 UNITS/NS 1,000mL) 1,000 ML .STK-MED ONE IV (DC) Insulin Human Lispro (HUMALOG) 0 AC HS SUBQ Methylprednisolone Sodium Succinate (Solu-Medrol 125 MG Vial) 0 .STK-MED ONE IV (DC) Norepinephrine Bitartrate (NOREPINEPHRINE 8 MG/NS 250 ML) 250 ML .STK-MED ONE IV (DC) Phenylephrine HCl (MARYJANE-SYNEPHRINE 1000MCG/NS 10ML INJ) 0 .STK-MED ONE I- CHAVEZ (DC) Fentanyl Citrate (SUBLIMAZE) 0 .STK-MED ONE .ROUTE (DC) Heparin Sodium/Sodium Chloride (HEPARIN 1,000 UNITS/NS 500ML) 500 ML .STK- MED ONE IV (DC) Lidocaine HCl (XYLOCAINE 1%) 0 .STK-MED ONE .ROUTE (DC) Midazolam HCl (VERSED) 0 .STK-MED ONE .ROUTE (DC) Dextrose/Water (DEXTROSE 50% W SYRINGE) 25 ML ASDIR PRN IV (CKD) Dextrose/Water (DEXTROSE 50% W SYRINGE) 50 ML ASDIR PRN IV (CKD) Glucagon (GLUCAGON) 1 MG ASDIR PRN IM Aspirin (ASPIRIN) 81 MG DAILY PO Clopidogrel Bisulfate (Plavix) 75 MG DAILY PO Duloxetine HCl (CYMBALTA) 20 MG DAILY PO Isosorbide Dinitrate (ISORDIL) 60 MG DAILY PO (DC) Losartan Potassium (COZAAR) 50 MG DAILY PO Sodium Chloride (SODIUM CHLORIDE 0.9%) 500 ML DAILY MISC Atorvastatin Calcium (LIPITOR) 40 MG BEDTIME PO Gabapentin (NEURONTIN) 600 MG BID PO Insulin Glargine (Lantus/Semglee) 25 UNIT BEDTIME SUBQ Metoprolol Succinate (TOPROL XL) 12.5 MG BID PO Mupirocin (BACTROBAN 2% 22 GM OINTMENT) 1 APPLIC BID NASAL Insulin Human Lispro (HUMALOG) 0 AC HS SUBQ (DC) Dextrose/Water (DEXTROSE 50% W SYRINGE) 25 ML ASDIR PRN IV (DC) Dextrose/Water (DEXTROSE 50% W SYRINGE) 50 ML ASDIR PRN IV (DC) Glucagon (GLUCAGON) 1 MG ASDIR PRN IM Heparin Sodium (HEPARIN 5000 UNITS/ML) 0 ASDIR PRN IV Heparin Sodium (Porcine) (HEPARIN 25,000 UNITS/ [...] ) Heparin Sodium (HEPARIN 5000 UNITS/ML) 12,500 UNIT DAILY PRN PRN I- CATHETER (DC) Dextrose/Water (DEXTROSE 5% WATER) 500 ML Heparin Sodium/Dextrose (HEPARIN 25,000 UNITS/D5W 500ML) 500 ML DAILY PRN PRN I-CATHETER (DC) Sodium Chloride (SODIUM CHLORIDE 0.9%) 500 ML ASDIR PRN IV (DC) Physical Exam General appearance: alert, awake, oriented Head/Eyes: atraumatic, normal conjunctiva/sclera, normal eyelids/periorb., normocephalic Neck: full range of motion, non-tender, normal thyroid, no JVD Cardiovascular: normal heart sounds, regular rate rhythm Respiratory: aerating well, clear to auscultation Abdomen: non-tender, normal bowel sounds, soft, no distention Extremities: moves all, no calf tenderness, no edema Neuro/INSPECTOR FIREARMS: alert, oriented X 3, CNII-XII intact, normal [...] - 32.0 %) 2.4 L 1.4 L Mcnairy % (Auto) (4.8 - 9.0 %) 6.5 4.3 L Eos % (Auto) (0.3 - 3.7 %) 0.0 L 0.0 L Baso % (Auto) (0.0 - 2.0 %) 0.0 0.1 Neut # (Auto) (2.0 - 7.6 x10 3/uL) 11.23 H 22.66 H Lymph # (Auto) (1.0 - 3.8 x10 3/uL) 0.30 L 0.33 L Mcnairy # (Auto) (0.1 - 0.8 x10 3/uL) 0.80 1.05 H Eos # (Auto) (0.0 - 0.2 x10 3/uL) 0.00 0.00 Baso # (Auto) (0.0 - 0.2 x10 3/uL) 0.00 0.03 Abs Immat Gran (auto) (0.00 - 0.03 x10 3/uL) 0.04 H 0.15 H Add Manual Diff NO NO Immature Gran % (0.0 - 2.0 %) 0.3 0.6 Nucleated RBC % (0 - 0 %) 0.0 0.0 Nucleated RBCs # (Man) (0.0 - 0.1 x10 3/uL) 0.00 0.00 Diagnosis, Assessment Plan Consultants: cardiology, cardiovascular surgery, critical/master steam yacht, hospitalist Free Text DxA P Notes Free [...] Heparin Sodium/ 1,000 ML .STK-MED ONE 06/24 1641 DC 06/24 Sodium Chloride IV 1705 Insulin Human Lispro 0 AC HS 06/24 1630 AC SUBQ 07/24 1629 Methylprednisolone 0 .STK-MED ONE 06/24 1629 DC 06/24 Sodium Succinate IV 1705 Norepinephrine 250 ML .STK-MED ONE 06/24 1626 DC 06/24 Bitartrate IV 1705 Phenylephrine HCl 0 .STK-MED ONE 06/24 1607 DC 06/24 I-CHAVEZ 1705 Fentanyl Citrate 0 .STK-MED ONE 06/24 1533 DC 06/24 .ROUTE 1539 Heparin Sodium/ 500 ML .STK-MED ONE 06/24 1533 DC 06/24 Sodium Chloride IV 1539 Lidocaine HCl 0 .STK-MED ONE 06/24 1533 DC 06/24 .ROUTE 1539 Midazolam HCl 0 .STK-MED ONE 06/24 1532 DC 06/24 .ROUTE 1539 Dextrose/Water 25 ML ASDIR PRN [...] Potassium 50 MG DAILY 06/24 0900 AC 06/24 PO 07/24 0859 0916 Sodium Chloride 500 ML DAILY 06/24 0900 AC MISC 07/24 0859 Magnesium Sulfate 50 ML ONCE ONE 06/24 0830 DC 06/24 IV 06/24 1029 0921 Atorvastatin Calcium 40 MG BEDTIME 06/23 2100 AC 06/23 PO 07/23 2058 2032 Gabapentin 600 [...] Lispro 0 AC HS 06/23 1800 DC 06/24 SUBQ 07/23 1749 0916 Dextrose/Water 25 ML ASDIR PRN 06/23 1730 DC IV 07/23 1729 Dextrose/Water 50 ML ASDIR PRN 06/23 1730 DC IV 07/23 1729 Glucagon 1 MG ASDIR PRN 06/23 1730 AC IM 07/23 1729 Heparin Sodium 0 ASDIR PRN 06/23 1730 AC IV 07/23 1729 Heparin Sodium 500 ML ASDIR 06/23 1730 CKD 06/24 (Porcine) IV 07/23 1729 0301 Hydrocodone Bitart/ 1 TAB Q6H PRN PRN 06/23 1730 AC Acetaminophen PO 06/28 1729 Morphine Sulfate 4 MG Q2H PRN PRN 06/23 1730 AC 06/24 IV 06/28 1729 0634 Ondansetron HCl 4 MG Q8H PRN PRN 06/23 1730 AC IV 07/23 1729 Sodium Chloride 1,000 ML .Q10H 06/23 1730 AC 06/24 IV 07/23 1729 1436 Atropine Sulfate 0.5 MG ASDIR PRN 06/23 1430 DC IV 06/24 1423 Heparin Sodium 12,500 UNIT DAILY PRN PRN 06/23 1430 AC Dextrose/Water 500 ML I-CATHETER 07/23 1429 Heparin Sodium/ 500 ML DAILY PRN PRN 06/23 1430 AC 06/23 Dextrose I-CATHETER 07/23 1429 2302 Sodium Chloride 1,000 ML .[id number] 06/23 1430 DC 06/23 IV 06/24 0349 [...] ANGINA CLOPIDOGREL (PLAVIX) 75 MG PO DAILY at 1339 RPT #:[id number] [facility] 2021-06-25 09:48:00 [facility] Cardiology Progress Note REPORT#:[id number] REPORT STATUS: Signed DATE:06/25/21 TIME: 09 PATIENT: MARINA MARTINEZ UNIT #: [id number] ROOM/BED: [place] [id number] : 64 AGE: 61 SEX: F ATTEND: Alejandra Zeng MD ADM AUTHOR: Zoraida Felder * ALL edits or amendments must be made on the electronic/computer document * Subjective Chief complaint: Awake and [...] 06/25 0600 80 18 101/46 67 99 06/25 0546 84 28 108/51 74 100 06/25 0530 86 11 105/54 75 99 06/25 0500 79 12 110/55 77 99 06/25 0430 78 13 107/55 78 99 06/25 0415 36.6 06/25 0400 78 12 113/55 78 99 06/25 0330 77 13 118/51 81 100 04/15 [...] 04/14 2345 82 14 94/53 71 92 04/14 2330 89 14 98/51 73 86 04/14 2315 79 19 96/52 64 94 04/14 2300 77 12 115/58 83 94 04/14 2245 75 13 114/58 83 94 04/14 2230 36.1 04/14 2230 Nasal 2 cannula 04/14 2230 75 13 114/51 72 96 04/14 2215 78 15 111/53 77 94 04/14 2200 79 14 105/52 75 100 04/14 2145 79 13 112/53 73 95 04/14 2130 79 14 105/52 72 99 04/14 2115 77 13 99/51 71 100 04/14 2100 74 15 83/46 59 100 04/14 2046 80 20 95/44 64 99 04/14 2030 76 14 119/47 68 100 04/14 2015 79 13 100/49 70 100 04/14 2001 80 12 120/55 79 100 04/14 1945 79 13 117/49 71 100 04/14 1930 75 13 126/51 74 100 04/14 1916 79 13 106/53 69 100 04/14 1907 79 13 89/50 60 100 04/14 1901 80 15 83/41 53 100 04/14 1830 77 15 102/47 65 100 Simple 8 mask 06/24 1815 76 15 99/45 63 100 Simple 8 mask 14 1800 35.7 77 15 142/55 84 100 Simple 8 mask 14 1501 66 45 110/54 78 100 04/14 1430 66 18 98/52 73 100 04/14 1400 67 13 91/45 65 100 04/14 1330 72 15 94/51 69 99 04/14 1300 69 16 88/49 64 99 04/14 1230 70 11 85/48 61 99 04/14 1200 36.4 67 12 87/52 66 98 2 04/14 1130 63 14 82/45 60 98 06/24 1100 66 14 93/54 70 98 06/24 1030 61 21 75/40 55 99 06/24 1000 61 17 74/42 54 98 PATIENT WEIGHT: Weight (lb): 218 Weight (oz): 11.18 Weight (kg): 99.200 Medications: Active Meds + DC'd Last 24 Hrs Calcium Chloride (CALCIUM CHLORIDE) 2 GM ONCE ONE IV Sodium Chloride (SODIUM CHLORIDE 0.9%) 100 ML Insulin Human Regular (HUMAN INSULIN REG) 5 UNITS ONCE ONE IV (DC) Sodium Chloride (SODIUM CHLORIDE 0.9%) 500 ML BOLUS ONCE ONE IV (DC) Dextrose/Water (DEXTROSE 50% W SYRINGE) 50 ML ONCE ONE IV (DC) Insulin Human Regular (HUMAN INSULIN REG) 10 UNITS ONCE ONE IV (DC) Sodium Chloride (SODIUM CHLORIDE 0.9%) 500 ML BOLUS ONCE ONE IV (DC) Calcium Gluconate/Sodium Chloride (CALCIUM GLUC 1GM/NS 50ML) 50 ML ONCE ONE IV (DC) Magnesium Sulfate/Dextrose (MAGNESIUM SULFATE 1GM/D5W 100ML) 100 ML ONCE ONE IV (DC) Dexamethasone Sodium Phosphate (DECADRON) 0 .STK-MED ONE .ROUTE (DC) Lidocaine HCl (XYLOCAINE) 0 .STK-MED ONE .ROUTE (DC) Ondansetron HCl (ZOFRAN) 0 .STK-MED ONE .ROUTE (DC) Sevoflurane (ULTANE) 0 .STK-MED ONE INH (DC) Epinephrine (EPINEPHrine) 0 .STK-MED ONE IV (DC) Sodium Bicarbonate (SODIUM BICARBONATE) 0 .STK-MED ONE IV (DC) Thrombin (RECOTHROM) 0 .STK-MED ONE TOPICAL (DC) Sodium Chloride (SODIUM CHLORIDE 0.9%) 500 ML .STK-MED ONE IV (DC) Etomidate (AMIDATE) 0 .STK-MED ONE IV (DC) Heparin Sodium/Sodium Chloride (HEPARIN 2,000 UNITS/NS 1,000mL) 1,000 ML .STK-MED ONE IV (DC) Insulin Human Lispro (HUMALOG) 0 AC HS SUBQ Methylprednisolone Sodium Succinate (Solu-Medrol 125 MG Vial) 0 .STK-MED ONE IV (DC) Norepinephrine Bitartrate (NOREPINEPHRINE 8 MG/NS 250 ML) 250 ML .STK-MED ONE IV (DC) Phenylephrine HCl (MARYJANE-SYNEPHRINE 1000MCG/NS 10ML INJ) 0 .STK-MED ONE I- CHAVEZ (DC) Fentanyl Citrate (SUBLIMAZE) 0 .STK-MED ONE .ROUTE (DC) Heparin Sodium/Sodium Chloride (HEPARIN 1,000 UNITS/NS 500ML) 500 ML .STK- MED ONE IV (DC) Lidocaine HCl (XYLOCAINE 1%) 0 .STK-MED ONE .ROUTE (DC) Midazolam HCl (VERSED) 0 .STK-MED ONE .ROUTE (DC) Dextrose/Water (DEXTROSE 50% W SYRINGE) 25 ML ASDIR PRN IV (CKD) Dextrose/Water (DEXTROSE 50% W SYRINGE) 50 ML ASDIR PRN IV (CKD) Glucagon (GLUCAGON) 1 MG ASDIR PRN IM Aspirin (ASPIRIN) 81 MG DAILY PO Clopidogrel Bisulfate (Plavix) 75 MG DAILY PO Duloxetine HCl (CYMBALTA) 20 MG DAILY PO Isosorbide Dinitrate (ISORDIL) 60 MG DAILY PO (r) Losartan Potassium (COZAAR) 50 MG DAILY PO Sodium Chloride (SODIUM CHLORIDE 0.9%) 500 ML DAILY MISC Magnesium Sulfate (MAGNESIUM SULFATE 2GM/SWFI 50ML) 50 ML ONCE ONE IV ( DC) Atorvastatin Calcium (LIPITOR) 40 MG BEDTIME PO Gabapentin (NEURONTIN) 600 MG BID PO Insulin Glargine (Lantus/Semglee) 25 UNIT BEDTIME SUBQ Metoprolol Succinate (TOPROL XL) 12.5 MG BID PO Mupirocin (BACTROBAN 2% 22 GM OINTMENT) 1 APPLIC BID NASAL Insulin Human Lispro (HUMALOG) 0 AC HS SUBQ (DC) Dextrose/Water (DEXTROSE 50% W SYRINGE) 25 ML ASDIR PRN IV (DC) Dextrose/Water (DEXTROSE 50% W SYRINGE) 50 ML ASDIR PRN IV (DC) Glucagon (GLUCAGON) 1 MG ASDIR PRN IM Heparin Sodium (HEPARIN 5000 UNITS/ML) 0 ASDIR PRN IV Heparin Sodium (Porcine) (HEPARIN 25,000 UNITS/ [...] ) Heparin Sodium (HEPARIN 5000 UNITS/ML) 12,500 UNIT DAILY PRN PRN I- CATHETER Dextrose/Water (DEXTROSE 5% WATER) 500 ML Heparin Sodium/Dextrose (HEPARIN 25,000 UNITS/D5W 500ML) 500 ML DAILY PRN PRN I-CATHETER Sodium Chloride (SODIUM CHLORIDE 0.9%) 500 ML ASDIR PRN IV (DC) Physical Exam General appearance: alert, awake, oriented, no acute distress Neck: non-tender, no JVD Cardiovascular: CV assessment: regular rate and rhythm Respiratory: decreased breath sounds, on oxygen, no distress Abdomen: non-tender Genitourinary: hilliard, urine Lower extremity: LE assessment: edema (face and hands), no edema Musculoskeletal: normal inspection Neuro/INSPECTOR FIREARMS: alert, oriented X 3, normal speech Skin: dry, intact, normal color, normal temperature Wound/incision: Location: Rgroin bruise, tender Psychiatry: normal affect, normal judgment/insight, normal mood, no hallucinations Results Findings/Data: Laboratory [...] 06/24 06/24 1645 1240 1030 Coagulation PTT ([place]) (25.0 - 39.5 Seconds) 96.3 H 93.7 [...] - 32.0 %) 2.4 L 1.4 L Mcnairy % (Auto) (4.8 - 9.0 %) 6.5 4.3 L Eos % (Auto) (0.3 - 3.7 %) 0.0 L 0.0 L Baso % (Auto) (0.0 - 2.0 %) 0.0 0.1 Neut # (Auto) (2.0 - 7.6 x10 3/uL) 11.23 H 22.66 H Lymph # (Auto) (1.0 - 3.8 x10 3/uL) 0.30 L 0.33 L Mcnairy # (Auto) (0.1 - 0.8 x10 3/uL) 0.80 1.05 H Eos # (Auto) (0.0 - 0.2 x10 3/uL) 0.00 0.00 Baso # (Auto) (0.0 - 0.2 x10 3/uL) 0.00 0.03 Abs Immat Gran (auto) (0.00 - 0.03 x10 3/uL) 0.04 H 0.15 H Add Manual Diff NO NO Immature Gran % (0.0 - 2.0 %) 0.3 0.6 Nucleated RBC % (0 - 0 %) 0.0 0.0 Nucleated RBCs # (Man) (0.0 - 0.1 x10 3/uL) 0.00 0.00 /14 1030 Hematology WBC (4.5 - [...] (Auto) (14.0 - 32.0 %) 10.2 L Mcnairy % (Auto) (4.8 - 9.0 %) 7.6 Eos % (Auto) (0.3 - 3.7 %) 0.0 L Baso % (Auto) (0.0 - 2.0 %) 0.1 Neut # (Auto) (2.0 - 7.6 x10 3/uL) 10.24 H Lymph # (Auto) (1.0 - 3.8 x10 3/uL) 1.28 Mcnairy # (Auto) (0.1 - 0.8 x10 3/uL) 0.95 H Eos # (Auto) (0.0 - 0.2 x10 3/uL) 0.00 Baso # (Auto) (0.0 - 0.2 x10 3/uL) 0.01 Abs Immat Gran (auto) (0.00 - 0.03 x10 3/uL) 0.06 H Add Manual Diff NO Immature Gran % (0.0 - 2.0 %) 0.5 Nucleated RBC % (0 - 0 %) 0.0 Nucleated RBCs # (Man) (0.0 - 0.1 x10 3/uL) 0.00 Laboratory Tests 06/25 Chemistry Magnesium (1.80 - [...] RCA post balloon angioplasty. Impella LVAD was inserted for stability. This morning [...] 5. RCFA bleeding during Impella removal s/p repair R groin bruise s/p 1 unit PRBC 06/24 hgb 7.8 - will diurese and recheck Hgb this PM get PT/OT, mobilize OOB 6. Fluid overload Positive fluid balance almost 6 liters give IV Lasix 40 mg x1 hgb 7.8, recheck HH at 4PM today Okay to tranfer out of CCU to CV1. at 1215 RPT #:[id number] [facility] 2021-06-25 09:48:00 [facility] ([facility] Cardiology Progress Note REPORT#:[id number] REPORT STATUS: Signed DATE:06/25/21 TIME: 0948 PATIENT: MARINA MARTINEZ UNIT #: [id number] ROOM/BED: 3349-1 : 64 AGE: 61 SEX: F ATTEND: Alejandra Zeng MD ADM AUTHOR: Zoraida Felder * ALL edits or amendments must be made on the electronic/computer document * Subjective Chief complaint: Awake and [...] 06/25 0600 80 18 101/46 67 99 06/25 0546 84 28 108/51 74 100 06/25 0530 86 11 105/54 75 99 06/25 0500 79 12 110/55 77 99 06/25 0430 78 13 107/55 78 99 04/15 [...] 04/14 2345 82 14 94/53 71 92 04/14 2330 89 14 98/51 73 86 04/14 2315 79 19 96/52 64 94 04/14 2300 77 12 115/58 83 94 04/14 2245 75 13 114/58 83 94 04/14 2230 36.1 0414 2230 Nasal 2 cannula /14 2230 75 13 114/51 72 96 04/14 2215 78 15 111/53 77 94 04/14 2200 79 14 105/52 75 100 04/14 2145 79 13 112/53 73 95 04/14 2130 79 14 105/52 72 99 04/14 2115 77 13 99/51 71 100 04/14 2100 74 15 83/46 59 100 04/14 2046 80 20 95/44 64 99 04/14 2030 76 14 119/47 68 100 /14 2015 79 13 100/49 70 100 04/14 2001 80 12 120/55 79 100 04/14 1945 79 13 117/49 71 100 04/14 1930 75 13 126/51 74 100 04/14 1916 79 13 106/53 69 100 04/14 1907 79 13 89/50 60 100 04/14 1901 80 15 83/41 53 100 04/14 1830 77 15 102/47 65 100 Simple 8 mask /14 1815 76 15 99/45 63 100 Simple 8 mask /14 1800 35.7 77 15 142/55 84 100 Simple 8 mask /14 1501 66 45 110/54 78 100 04/14 1430 66 18 98/52 73 100 04/14 1400 67 13 91/45 65 100 04/14 1330 72 15 94/51 69 99 04/14 1300 69 16 88/49 64 99 04/14 1230 70 11 85/48 61 99 06/24 [...] Calcium Chloride (CALCIUM CHLORIDE) 2 GM ONCE ONE IV Sodium Chloride (SODIUM CHLORIDE 0.9%) 100 ML Insulin Human Regular (HUMAN INSULIN REG) 5 UNITS ONCE ONE IV (DC) Sodium Chloride (SODIUM CHLORIDE 0.9%) 500 ML BOLUS ONCE ONE IV (DC) Dextrose/Water (DEXTROSE 50% W SYRINGE) 50 ML ONCE ONE IV (DC) Insulin Human Regular (HUMAN INSULIN REG) 10 UNITS ONCE ONE IV (DC) Sodium Chloride (SODIUM CHLORIDE 0.9%) 500 ML BOLUS ONCE ONE IV (DC) Calcium Gluconate/Sodium Chloride (CALCIUM GLUC 1GM/NS 50ML) 50 ML ONCE ONE IV (DC) Magnesium Sulfate/Dextrose (MAGNESIUM SULFATE 1GM/D5W 100ML) 100 ML ONCE ONE IV (DC) Dexamethasone Sodium Phosphate (DECADRON) 0 .STK-MED ONE .ROUTE (DC) Lidocaine HCl (XYLOCAINE) 0 .STK-MED ONE .ROUTE (DC) Ondansetron HCl (ZOFRAN) 0 .STK-MED ONE .ROUTE (DC) Sevoflurane (ULTANE) 0 .STK-MED ONE INH (DC) Epinephrine (EPINEPHrine) 0 .STK-MED ONE IV (DC) Sodium Bicarbonate (SODIUM BICARBONATE) 0 .STK-MED ONE IV (DC) Thrombin (RECOTHROM) 0 .STK-MED ONE TOPICAL (DC) Sodium Chloride (SODIUM CHLORIDE 0.9%) 500 ML .STK-MED ONE IV (DC) Etomidate (AMIDATE) 0 .STK-MED ONE IV (DC) Heparin Sodium/Sodium Chloride (HEPARIN 2,000 UNITS/NS 1,000mL) 1,000 ML .STK-MED ONE IV (DC) Insulin Human Lispro (HUMALOG) 0 AC HS SUBQ Methylprednisolone Sodium Succinate (Solu-Medrol 125 MG Vial) 0 .STK-MED ONE IV (DC) Norepinephrine Bitartrate (NOREPINEPHRINE 8 MG/NS 250 ML) 250 ML .STK-MED ONE IV (DC) Phenylephrine HCl (MARYJANE-SYNEPHRINE 1000MCG/NS 10ML INJ) 0 .STK-MED ONE I- CHAVEZ (DC) Fentanyl Citrate (SUBLIMAZE) 0 .STK-MED ONE .ROUTE (DC) Heparin Sodium/Sodium Chloride (HEPARIN 1,000 UNITS/NS 500ML) 500 ML .STK- MED ONE IV (DC) Lidocaine HCl (XYLOCAINE 1%) 0 .STK-MED ONE .ROUTE (DC) Midazolam HCl (VERSED) 0 .STK-MED ONE .ROUTE (DC) Dextrose/Water (DEXTROSE 50% W SYRINGE) 25 ML ASDIR PRN IV (CKD) Dextrose/Water (DEXTROSE 50% W SYRINGE) 50 ML ASDIR PRN IV (CKD) Glucagon (GLUCAGON) 1 MG ASDIR PRN IM Aspirin (ASPIRIN) 81 MG DAILY PO Clopidogrel Bisulfate (Plavix) 75 MG DAILY PO Duloxetine HCl (CYMBALTA) 20 MG DAILY PO Isosorbide Dinitrate (ISORDIL) 60 MG DAILY PO (r) Losartan Potassium (COZAAR) 50 MG DAILY PO Sodium Chloride (SODIUM CHLORIDE 0.9%) 500 ML DAILY MISC Magnesium Sulfate (MAGNESIUM SULFATE 2GM/SWFI 50ML) 50 ML ONCE ONE IV ( DC) Atorvastatin Calcium (LIPITOR) 40 MG BEDTIME PO Gabapentin (NEURONTIN) 600 MG BID PO Insulin Glargine (Lantus/Semglee) 25 UNIT BEDTIME SUBQ Metoprolol Succinate (TOPROL XL) 12.5 MG BID PO Mupirocin (BACTROBAN 2% 22 GM OINTMENT) 1 APPLIC BID NASAL Insulin Human Lispro (HUMALOG) 0 AC HS SUBQ (DC) Dextrose/Water (DEXTROSE 50% W SYRINGE) 25 ML ASDIR PRN IV (DC) Dextrose/Water (DEXTROSE 50% W SYRINGE) 50 ML ASDIR PRN IV (DC) Glucagon (GLUCAGON) 1 MG ASDIR PRN IM Heparin Sodium (HEPARIN 5000 UNITS/ML) 0 ASDIR PRN IV Heparin Sodium (Porcine) (HEPARIN 25,000 UNITS/ [...] ) Heparin Sodium (HEPARIN 5000 UNITS/ML) 12,500 UNIT DAILY PRN PRN I- CATHETER Dextrose/Water (DEXTROSE 5% WATER) 500 ML Heparin Sodium/Dextrose (HEPARIN 25,000 UNITS/D5W 500ML) 500 ML DAILY PRN PRN I-CATHETER Sodium Chloride (SODIUM CHLORIDE 0.9%) 500 ML ASDIR PRN IV (DC) Physical Exam General appearance: alert, awake, oriented, no acute distress Neck: non-tender, no JVD Cardiovascular: CV assessment: regular rate and rhythm Respiratory: decreased breath sounds, on oxygen, no distress Abdomen: non-tender Genitourinary: hilliard, urine Lower extremity: LE assessment: edema (face and hands), no edema Musculoskeletal: normal inspection Neuro/INSPECTOR FIREARMS: alert, oriented X 3, normal speech Skin: dry, intact, normal color, normal temperature Wound/incision: Location: Rgroin bruise, tender Psychiatry: normal affect, normal judgment/insight, normal mood, no hallucinations Results Findings/Data: Laboratory [...] Tests 06/25 06/25 06/25 06/25 0729 0340 034 0339 Chemistry Sodium (134 - 147 mEq/L) [...] 06/24 06/24 1645 1240 1030 Coagulation PTT (Samuel) (25.0 [...] - 32.0 %) 2.4 L 1.4 L Mcnairy % (Auto) (4.8 - 9.0 %) 6.5 4.3 L Eos % (Auto) (0.3 - 3.7 %) 0.0 L 0.0 L Baso % (Auto) (0.0 - 2.0 %) 0.0 0.1 Neut # (Auto) (2.0 - 7.6 x10 3/uL) 11.23 H 22.66 H Lymph # (Auto) (1.0 - 3.8 x10 3/uL) 0.30 L 0.33 L Mcnairy # (Auto) (0.1 - 0.8 x10 3/uL) 0.80 1.05 H Eos # (Auto) (0.0 - 0.2 x10 3/uL) 0.00 0.00 Baso # (Auto) (0.0 - 0.2 x10 3/uL) 0.00 0.03 Abs Immat Gran (auto) (0.00 - 0.03 x10 3/uL) 0.04 H 0.15 H Add Manual Diff NO NO Immature Gran % (0.0 - 2.0 %) 0.3 0.6 Nucleated RBC % (0 - 0 %) 0.0 0.0 Nucleated RBCs # (Man) (0.0 - 0.1 x10 3/uL) 0.00 0.00 /14 1030 Hematology WBC (4.5 - [...] (Auto) (14.0 - 32.0 %) 10.2 L Mcnairy % (Auto) (4.8 - 9.0 %) 7.6 Eos % (Auto) (0.3 - 3.7 %) 0.0 L Baso % (Auto) (0.0 - 2.0 %) 0.1 Neut # (Auto) (2.0 - 7.6 x10 3/uL) 10.24 H Lymph # (Auto) (1.0 - 3.8 x10 3/uL) 1.28 Mcnairy # (Auto) (0.1 - 0.8 x10 3/uL) 0.95 H Eos # (Auto) (0.0 - 0.2 x10 3/uL) 0.00 Baso # (Auto) (0.0 - 0.2 x10 3/uL) 0.01 Abs Immat Gran (auto) (0.00 - 0.03 x10 3/uL) 0.06 H Add Manual Diff NO Immature Gran % (0.0 - 2.0 %) 0.5 Nucleated RBC % (0 - 0 %) 0.0 Nucleated RBCs # (Man) (0.0 - 0.1 x10 3/uL) 0.00 Laboratory Tests 06/25 Chemistry Magnesium (1.80 - [...] RCA post balloon angioplasty. Impella LVAD was inserted for stability. This morning [...] 5. RCFA bleeding during Impella removal s/p repair R groin bruise s/p 1 unit PRBC 06/24 hgb 7.8 - will diurese and recheck Hgb this PM get PT/OT, mobilize OOB 6. Fluid overload Positive fluid balance almost 6 liters give IV Lasix 40 mg x1 hgb 7.8, recheck HH at 4PM today Okay to tranfer out of CCU to CV1. at 1215 at 0758 RPT #:[id number] [facility] 2021-06-24 21:18:00 [id number] [place] [address] PATIENT NAME: MARINA MARTINEZ ADMIT DATE: 06/23/21 ACCOUNT NO: [id number] ROOM NO: G330 AGE: 61 REPORT TYPE: 360 - QUERY RESPONSE DOCUMENT SEX: F ADMITTING PHYSICIAN:Alejandra Zeng MD ATTENDING PHYSICIAN:Alejandra Zeng MD Provider Query QUERY TEXT: Condition General 360MD Query related questions should be directed to: Kobe Carrillo RN # [phone] Based on your clinical judgement can you specify the known or suspected condition that represents the clinical indicators listed? ( Ex - Overweight, Obesity, Morbid Obesity, Super Morbid Obesity, or other diagnosis ) The patient's Clinical Indicators include: * Weight - 97KG * BMI - 41.8 - EMR - 06/23/2021 Options provided: -- Respond - Create new note now -- Dismiss - Not applicable / Not valid -- Dismiss - Clinically unable to determine / Unknown -- Assign to another provider QUERY RESPONSE: Morbid obesity Query created by: Kobe Carrillo on 06/24/2021 2:32 PM at 5692 PATIENT NAME: MARINA MARTINEZ [facility] 2021-06-24 18:46:00 [facility] ([facility]) Critical Care Consult Note REPORT#:[id number] REPORT STATUS: Signed DATE:06/24/21 TIME: 1845 PATIENT: MARINA MARTINEZ UNIT #: [id number] ROOM/BED: 3308-1 : 62 AGE: 61 SEX: F ATTEND: Alejandra Zeng MD ADM AUTHOR: Eduardo Robledo MD * ALL edits or amendments must be made on the electronic/computer document * History of Present Illness HPI Requesting clinician: Dr Zeng Reason for consult: Hypotension Acute blood loss anemia Acute coronary syndrome status post PCI RCA dissection Cardiogenic shock Impella support Chief complaint: Hypotension Bleeding from the Impella insertion site HPI: Patient seen and examined in CCU room #3308 this evening. She underwent PCI with RCA dissection leading to cardiogenic shock. Patient was supported with Impella. Upon removal of Impella she developed right groin hematoma, acute blood loss anemia and severe hypotension. CODE BLUE was called but patient did not lose pulse. She had to undergo cutdown in order to repair the femoral artery approach. Patient is stable now. She is awake, interactive, following commands and moving all 4 extremities. Patient received 2.0 L of crystalloids and 1 unit of packed red cell. Latest hemoglobin is 9.6 g/dL. Currently on Levophed at 5 mics/min. Blood pressure is 102/47 mmHg with a heart rate of 79 in sinus rhythm and respiratory rate of 13. Pulse ox is 100%. Repeat lab has been ordered for 8 PM along with BMP, H H, lactic acid. Marina Martinez is a 61 years old female with past medical history significant for CAD with prior PCI/MIKHAIL to LAD (05/2021), HTN, DM, CVA, HLD who has been having angina. She was admitted electively on 06/23/21 for staged PCI to right PDA and RCA. The patient had successul PCI of the ostial PDA with MIKHAIL. However, the patient developed dissection of the proximal to mid RCA post balloon angioplasty. Impella LVAD was inserted for stability. This morning the patient was doing well, awake and alert, no chest pain, and no SOB. Had episode of hypotension which responded to 500 ml IVF challenge. Patient underwent cutdown and repair of the femoral artery. Right groin is stable now. Patient is neuro intact. She is awake interactive following commands and moving all 4 extremities. Patient is full code. History - Adult longitudinal Past medical history: Reports: Coronary artery disease, Diabetes mellitus, Hypertension, Ischemic stroke. Denies: Atrial fibrillation, Congestive heart failure. Past surgical history: Reports: Cholecystectomy. Additional family history: Non contributory Alcohol use: Denies EtOH use Drug use: Benzodiazepines Smoking status: Smoking status for patients 13 years old or older: Never Smoker Medications: Home Medications: Medication Dose/Rte/Freq Days Qty Entered Last Max Daily Dose Reviewed GABAPENTIN (NEURONTIN) 600 MG PO BID 05/10/21 06/23/21 Strength: 600 MG TAB 1450 1136 FOLIC ACID 1 MG PO DAILY 05/10/21 06/23/21 Strength: 1 MG TAB 1450 1136 METOPROLOL SUCC XL 12.5 MG PO BID 05/10/21 06/23/21 (TOPROL XL) 1450 1136 Strength: 25 MG TAB.SR.24H ISOSORBIDE DINITRATE 60 MG PO DAILY 05/10/21 06/23/21 (ISORDIL) 1452 1136 Strength: 40 MG TAB ASPIRIN 81 MG PO DAILY 05/10/21 06/23/21 Strength: 81 MG TAB.CHEW [address] (CYMBALTA) 20 MG PO DAILY 05/10/21 06/23/21 Strength: [address] 1452 1136 LOSARTAN (COZAAR) 50 MG PO DAILY 05/10/21 06/23/21 Strength: 50 MG TAB 1454 1136 ATORVASTATIN (LIPITOR) 40 MG PO BEDTIME 05/10/21 06/23/21 Strength: 40 MG TAB 1455 1136 METHOTREXATE 2.5 MG PO Q7D 05/10/21 06/23/21 (RHEUMATREX) 1456 1136 Strength: 2.5 MG TAB INSULIN ASPART (NovoLOG) 05/10/21 06/23/21 Strength: 100 UNIT/ML 1456 1136 VIAL Insulin Degludec 26 UNITS SUBQ DAILY 05/10/21 06/23/21 (TRESIBA FLEXTOUCH 1457 1136 U-100 (3mL)) Strength: 100 UNIT/ML PEN.INJCTR HYDROcodone/APAP 1 TAB PO 05/12/21 06/23/21 (NORCO 10/325) Q6H PRN PRN PAIN 1316 1136 Strength: 10 MG-325 MG TAB [XELJANZ] (Unknown Dose) PO 06/21/21 06/23/21 Strength: (Unknown DAILY 1440 1136 Strength) NITROGLYCERIN 0.4 MG SL 30 100 05/13/21 06/23/21 (NITROSTAT) Q5M PRN PRN ANGINA 1740 1136 Strength: 0.4 MG TAB.SL CLOPIDOGREL (PLAVIX) 75 MG PO DAILY 30 30 05/13/21 06/23/21 Strength: 75 MG TAB 1745 1136 Current Hospital Medications: Autonomic Drugs Sig/Nandini Start time Last Medication Dose Route Stop Time Status Admin Epinephrine 0 .STK-MED ONE 06/24 1713 DC 06/24 (EPINEPHrine) IV 1715 Norepinephrine 250 ML .STK-MED ONE 06/24 1626 DC 06/24 Bitartrate IV 1705 (NOREPINEPHRINE 8 MG/ [...] Heparin Sodium/ 1,000 ML .STK-MED ONE 06/24 1641 DC 06/24 Sodium Chloride IV 1705 (HEPARIN [...] Sodium 500 ML ASDIR 06/23 1730 CKD 06/24 (Porcine) IV 07/23 1729 0301 (HEPARIN 25,000 [...] HCl 0 .STK-MED ONE 06/24 1533 DC 06/24 (XYLOCAINE 1%) .ROUTE 1539 Isosorbide Dinitrate 60 MG DAILY 06/24 0900 DA 06/24 (ISORDIL) PO 07/24 0859 0917 Losartan Potassium 50 MG DAILY 06/24 0900 AC 06/24 (COZAAR) PO 07/24 0859 0916 Atorvastatin Calcium 40 MG BEDTIME 06/23 2100 AC 06/23 (LIPITOR) PO 07/23 Metoprolol Succinate 12.5 MG BID 06/23 2100 AC 06/24 (TOPROL XL) PO 07/23 2058 0917 Central Nervous System Agents Sig/Nandini Start time Last Medication Dose Route Stop Time Status Admin Sevoflurane 0 .STK-MED ONE 06/24 1732 DC (ULTANE) INH Etomidate 0 .STK-MED ONE 06/24 1648 DC (AMIDATE) IV Fentanyl Citrate 0 .STK-MED ONE 06/24 1533 DC 06/24 (SUBLIMAZE) .ROUTE 1539 Midazolam HCl 0 .STK-MED ONE 06/24 1532 DC 06/24 (VERSED) .ROUTE 1539 Aspirin 81 MG DAILY [...] Bitart/ 1 TAB Q6H PRN PRN 06/23 1730 AC Acetaminophen PO 06/28 1729 (NORCO 10/325) Morphine Sulfate 4 MG Q2H PRN PRN 06/23 1730 AC 06/24 (morphine SULFATE) IV 06/28 1729 0634 Electrolytic, Caloric, And Maico Sig/Nandini [...] Chloride 1,000 ML .Q10H 06/23 1730 AC 06/24 (SODIUM CHLORIDE IV 07/23 1729 1436 0.9%) Sodium Chloride 1,000 ML .[id number] 06/23 1430 DC 06/23 (SODIUM CHLORIDE IV [...] Admin Ondansetron HCl 0 .STK-MED ONE 06/24 173 DC (ZOFRAN) .ROUTE Ondansetron HCl 4 MG [...] 06/23 2100 AC 06/23 (Lantus/Semglee) SUBQ 07/23 205 2030 Insulin Human Lispro 0 AC HS 06/23 1800 DC 06/24 (HUMALOG) SUBQ 07/23 1749 0916 Glucagon 1 MG ASDIR PRN 06/23 1730 AC (GLUCAGON) IM 07/23 172 Skin And Mucous Membrane Agent Sig/Nandini Start [...] Denies: chest pain, ELLIS (dyspnea on exertion), edema. GI: Denies: hematemesis, hematochezia. : Denies: hematuria, [...] 24 Hrs Dexamethasone Sodium Phosphate (DECADRON) 0 .STK-MED ONE .ROUTE (DC) Lidocaine HCl (XYLOCAINE) 0 .STK-MED ONE .ROUTE (DC) Ondansetron HCl (ZOFRAN) 0 .STK-MED ONE .ROUTE (DC) Sevoflurane (ULTANE) 0 .STK-MED ONE INH (DC) Epinephrine (EPINEPHrine) 0 .STK-MED ONE IV (DC) Sodium Bicarbonate (SODIUM BICARBONATE) 0 .STK-MED ONE IV (DC) Thrombin (RECOTHROM) 0 .STK-MED ONE TOPICAL (DC) Sodium Chloride (SODIUM CHLORIDE 0.9%) 500 ML .STK-MED ONE IV (DC) Etomidate (AMIDATE) 0 .STK-MED ONE IV (DC) Heparin Sodium/Sodium Chloride (HEPARIN 2,000 UNITS/NS 1,000mL) 1,000 ML .STK-MED ONE IV (DC) Insulin Human Lispro (HUMALOG) 0 AC HS SUBQ Methylprednisolone Sodium Succinate (Solu-Medrol 125 MG Vial) 0 .STK-MED ONE IV (DC) Norepinephrine Bitartrate (NOREPINEPHRINE 8 MG/NS 250 ML) 250 ML .STK-MED ONE IV (DC) Phenylephrine HCl (MARYJANE-SYNEPHRINE 1000MCG/NS 10ML INJ) 0 .STK-MED ONE I- CHAVEZ (DC) Fentanyl Citrate (SUBLIMAZE) 0 .STK-MED ONE .ROUTE (DC) Heparin Sodium/Sodium Chloride (HEPARIN 1,000 UNITS/NS 500ML) 500 ML .STK- MED ONE IV (DC) Lidocaine HCl (XYLOCAINE 1%) 0 .STK-MED ONE .ROUTE (DC) Midazolam HCl (VERSED) 0 .STK-MED ONE .ROUTE (DC) Dextrose/Water (DEXTROSE 50% W SYRINGE) 25 ML ASDIR PRN IV (CKD) Dextrose/Water (DEXTROSE 50% W SYRINGE) 50 ML ASDIR PRN IV (CKD) Glucagon (GLUCAGON) 1 MG ASDIR PRN IM Aspirin (ASPIRIN) 81 MG DAILY PO Clopidogrel Bisulfate (Plavix) 75 MG DAILY PO Duloxetine HCl (CYMBALTA) 20 MG DAILY PO Isosorbide Dinitrate (ISORDIL) 60 MG DAILY PO (DA) Losartan Potassium (COZAAR) 50 MG DAILY PO Sodium Chloride (SODIUM CHLORIDE 0.9%) 500 ML DAILY MISC Magnesium Sulfate (MAGNESIUM SULFATE 2GM/SWFI 50ML) 50 ML ONCE ONE IV ( DC) Atorvastatin Calcium (LIPITOR) 40 MG BEDTIME PO Gabapentin (NEURONTIN) 600 MG BID PO Insulin Glargine (Lantus/Semglee) 25 UNIT BEDTIME SUBQ Metoprolol Succinate (TOPROL XL) 12.5 MG BID PO Mupirocin (BACTROBAN 2% 22 GM OINTMENT) 1 APPLIC BID NASAL Insulin Human Lispro (HUMALOG) 0 AC HS SUBQ (DC) Dextrose/Water (DEXTROSE 50% W SYRINGE) 25 ML ASDIR PRN IV (DC) Dextrose/Water (DEXTROSE 50% W SYRINGE) 50 ML ASDIR PRN IV (DC) Glucagon (GLUCAGON) 1 MG ASDIR PRN IM Heparin Sodium (HEPARIN 5000 UNITS/ML) 0 ASDIR PRN IV Heparin Sodium (Porcine) (HEPARIN 25,000 UNITS/ [...] ) Heparin Sodium (HEPARIN 5000 UNITS/ML) 12,500 UNIT DAILY PRN PRN I- CATHETER Dextrose/Water (DEXTROSE 5% WATER) 500 ML Heparin Sodium/Dextrose (HEPARIN 25,000 UNITS/D5W 500ML) 500 ML DAILY PRN PRN I-CATHETER Sodium Chloride (SODIUM CHLORIDE 0.9%) 1,000 ML .[id number] IV (DC) Sodium Chloride (SODIUM CHLORIDE 0.9%) 500 ML ASDIR PRN IV (DC) General appearance: alert, awake, oriented, no acute distress, pleasant, conversational, mental status normal, no respiratory distress Head/Eyes: atraumatic, clear cornea, normal conjunctiva/sclera, normal eyelids/ periorb., normocephalic, PERRL ENT: moist mucosal membranes, normal nose, normal sinus Neck: non-tender, normal thyroid, no JVD Cardiovascular: normal capillary refill, normal heart sounds, regular rate and rhythm, normal S1/S2 Respiratory: aerating well, clear to auscultation, symmetric expansion, no distress Abdomen: soft, non-tender, normal bowel sounds, no distention, no guarding, no rebound Genitourinary: no bladder distention, no flank pain Extremities: moves all, normal capillary refill, no [...] 1645 1240 1030 0738 0500 Coagulation PTT (Samuel) (25.0 - 39.5 Seconds) 96.3 H 93.7 H 115.0 H 129.9 H Activated Coag Time (74 - 137 SEC) 136 06/24 06/23 06/23 0200 2200 2055 Coagulation PTT (Samuel) (25.0 - 39.5 Seconds) 45.4 H 33.3 65.5 H Laboratory Tests 06/24 06/24 06/24 1240 [...] - 32.0 %) 10.2 L 5.4 L Mcnairy % (Auto) (4.8 - 9.0 %) 7.6 7.5 Eos % (Auto) (0.3 - 3.7 %) 0.0 L 0.0 L Baso % (Auto) (0.0 - 2.0 %) 0.1 0.1 Neut # (Auto) (2.0 - 7.6 x10 3/uL) 10.24 H 13.91 H Lymph # (Auto) (1.0 - 3.8 x10 3/uL) 1.28 0.87 L Mcnairy # (Auto) (0.1 - 0.8 x10 3/uL) 0.95 H 1.21 H Eos # (Auto) (0.0 - 0.2 x10 3/uL) 0.00 0.00 Baso # (Auto) (0.0 - 0.2 x10 3/uL) 0.01 0.01 Abs Immat Gran (auto) (0.00 - 0.03 x10 3/uL) 0.06 H 0.10 H Add Manual Diff NO NO Immature Gran % (0.0 - 2.0 %) 0.5 0.6 Nucleated RBC % (0 - 0 %) 0.0 0.0 Nucleated RBCs # (Man) (0.0 - 0.1 x10 3/uL) 0.00 0.00 Results: labs reviewed, vital signs reviewed, rhythm personally rev'd, current med profile rev'd Diagnosis, Assessment Plan Diagnosis, Assessment Plan Problem list/A P: 1. Coronary artery disease 2. Diabetes mellitus 3. Hypertension 4. Rheumatoid arthritis Consultants: cardiology, cardiovascular surgery, critical/master steam yacht, hospitalist Plan discussed with: patient, nurse Critical [...] PCI with RCA dissection leading to cardiogenic shock. Patient was supported with Impella. Upon removal of Impella she developed right groin hematoma, acute blood loss anemia and severe hypotension. CODE BLUE was called but patient did not lose pulse. She had to undergo cutdown in order to repair the femoral artery approach. Patient is stable now. She is awake, interactive, following commands and moving all 4 extremities. Patient received 2.0 L of crystalloids and 1 unit of packed red cell. Latest hemoglobin is 8 g/dL. Currently on Levophed at 5 mics/min. Blood pressure is 102/47 mmHg with a heart rate of 79 in sinus rhythm and respiratory rate of 13. Pulse ox is 100%. Repeat lab has been ordered for 8 PM along with BMP, H H, lactic acid. Marina Martinez is a 61 years old female with past medical history significant for CAD with prior PCI/MIKHAIL to LAD (05/2021), HTN, DM, CVA, HLD who has been having angina. She was admitted electively on 06/23/21 for staged PCI to right PDA and RCA. The patient had successul PCI of the ostial PDA with MIKHAIL. However, the patient developed dissection of the proximal to mid RCA post balloon angioplasty. Impella LVAD was inserted for stability. This morning the patient was doing well, awake and alert, no chest pain, and no SOB. Had episode of hypotension which responded to 500 ml IVF challenge. Patient underwent cutdown and repair of the femoral artery. Right groin is stable now. Patient is neuro intact. She is awake interactive following commands and moving all 4 extremities. Patient is full code. Patient sustained severe hypotension and near CODE STATUS CODE BLUE was called but patient not lose cardiac rhythm Patient had bleeding from the femoral access site for the Impella CT surgery was consulted Patient underwent cutdown and repair of the femoral artery Has intact pulses in the lower extremities She was resuscitated with 2 L of crystalloids Also received 1 unit of packed red cell Echocardiogram did not show any tamponade physiology currently on Levophed at 5 mcg/min Vital signs are stable with a heart rate of 79, blood pressure 102/47 mmHg, respiratory rate 13 and pulse ox 1% while on nasal cannula oxygen Repeat hemoglobin has been ordered at 8 PM No fever reported. Has mild leukocytosis Appears to be intravascularly dry Crystalloid boluses Wean norepinephrine drip Monitor right groin Monitor peripheral pulses in the right lower extremity Check labs including CBC, BMP, ionized calcium and magnesium at 8 PM Monitor urine output and BMP SCDs for DVT prophylaxis Eduardo Robledo MD [facility] 06/24/2021 8.40 PM [facility]: [facility] Current Medications Current medication review: Home Medications: [...] ANGINA CLOPIDOGREL (PLAVIX) 75 MG PO DAILY at 0612 [facility] #:[id number] [facility] 2021-06-24 17:36:00 [id number] [place] [address] PATIENT NAME: MARINA MARTINEZ ADMIT DATE: 06/23/21 ACCOUNT NO: [id number] [place] [facility] [place] 61 REPORT TYPE: OPERATIVE REPORT SEX: F ADMITTING PHYSICIAN:Alejandra Zeng MD ATTENDING PHYSICIAN:Alejandra Zeng MD OPERATION DATE: 06/24/2021 PREOPERATIVE DIAGNOSIS: Bleeding from right common femoral artery. POSTOPERATIVE DIAGNOSIS: Bleeding from right common femoral artery. PROCEDURES PERFORMED: 1. Exploration of right common femoral artery. 2. Repair of right common femoral artery. SURGEON: Martina Whitt MD [employer] PLANT MANAGER: Mary Mcdonnell. ANESTHESIOLOGIST: Dr. Brown. ANESTHESIA: General endotracheal anesthesia. ESTIMATED BLOOD LOSS: 20 mL. INDICATIONS: Ms. Martinez is a 61-year-old female who had an Impella placed for cardiogenic shock. She has recovered completely and she was ready for the Impella to be removed today. The patient was taken to the label designer, and after removal of Impella, unsuccessful attempts were made to close the common femoral artery defect with Perclose device. The patient developed significant right groin hematoma and hence intraoperative cardiovascular consults were obtained. FINDINGS: 1. The patient had about 5 mm defect in the anterior wall of the common femoral artery, with a Perclose device deployed in the subcutaneous tissue 2. Following repair of the defect, the patient had good pulses and dorsalis pedis artery in the right leg. PROCEDURE IN DETAIL: Ms. Martinez was identified in the label designer. The groin was already prepped prior to my arrival and the patient had a 14-Niuean sheath in the groin, and there was a large hematoma in the right groin. After induction of anesthesia, right common femoral artery was explored via a 4 cm transverse incision centered on the midpoint of the right inguinal ligament. Subcutaneous tissue was divided with Bovie cautery. The 14-Niuean sheath was identified and traced down to the right common femoral artery. Next, two concentric 5-0 Prolene pursestring sutures were placed around the sheath. The sheath was then removed and sutures were tied. This was very hemostatic. Pulses were checked PATIENT NAME: MARINA MARTINEZ in the right lower extremity. The patient had good dorsalis pedis signals. Next, hemostasis was confirmed and the incision was closed in layers using 2-0 Vicryl for subcutaneous tissue and 4-0 Vicryl for the skin. The patient was extubated in the label designer and moved to PACU in stable condition. Dictated By: Martina Whitt MD WT: OP:ARELY/PETERSON/JULIO C Conf#: [id number]/DID#: [id number] Authenticated and Edited by Reno Whitt MD On 06/26/21 7:53:11 AM at 0755 PATIENT NAME: MARINA MARTINEZ [facility] 2021-06-24 17:29:00 [facility]) Brief Op Note REPORT#:[id number] REPORT STATUS: Signed DATE:06/24/21 TIME: 1729 PATIENT: MARINA MARTINEZ UNIT #: [id number] ROOM/BED: [place] [address] : 62 AGE: 61 SEX: F ATTEND: Alejandra Zeng MD ADM AUTHOR: Martina Whitt MD * ALL edits or amendments must be made on the electronic/computer document * Op/Inv Proc Note - Brief Pre-procedure diagnosis: bleeding right PAGE DESIGNER Post-procedure diagnosis: same as pre procedure dx Procedures performed: Exploration of RCFA Repair of RCFA Primary Surgeon: Peri Radar Engineering Teacher(s): Mary Mcdonnell Findings: 5 mm defect in the RCFA Complications: none Estimated blood loss in ml's: 20 cc Specimens removed/altered: none at 1732 RPT #:[id number] [facility] 2021-06-24 12:50:00 [facility] ([facility]) Cardiothoracic Surgery Consult REPORT#:[id number] REPORT STATUS: Signed DATE:06/24/21 TIME: 1250 PATIENT: MARINA MARTINEZ UNIT #: [id number] [place] [facility] [place] : [place] AGE: 61 SEX: F ATTEND: Alejandra Zeng MD ADM AUTHOR: Stephen Canela NP * ALL edits or amendments must be made on the electronic/computer document * Stephen Canela 06/24/21 1250: History of Present Illness HPI Chief complaint: RCA dissection PCP: PCP: No Primary or Family Physician Requesting Clinician Dr. Mcdonald HPI: Ms Marina Martinez is a 61 year old female with past medical history significant for CAD with prior PCI/MIKHAIL to LAD (05/2021), HTN, DM, CVA, and HLD who was admitted to the hospital for elective PCI. Patient underwent successful PCI of the ostial PDA with MIKHAIL. However, the patient developed dissection of the proximal to mid RCA post balloon angioplasty. Impella catheter then placed for additional support. CV surgery consulted for evaluation, in the event further surgical intervention is required History Past Medical History: Reports: Coronary artery disease, Diabetes mellitus, Hypertension, Ischemic stroke. Denies: Atrial fibrillation, Congestive heart failure. Past Surgical History: Reports: Cholecystectomy. Alcohol Use Denies EtOH use Drug Use Benzodiazepines Smoking status: Smoking status for patients 13 years old or older: Never Smoker Allergies: Coded Allergies: iodine (Intermediate, [...] motion, non-tender Cardiovascular: normal heart sounds, regular rate rhythm Respiratory: aerating well, clear to auscultation Abdomen: soft, non-tender Extremities: dry, moves all Musculoskeletal: full range of motion Neuro/INSPECTOR FIREARMS: alert, oriented X 3 Skin: dry, intact Diagnosis, Assessment Plan Free Text A P: Ms Marina Martinez is a 61 year old female with past medical history significant for CAD with prior PCI/MIKHAIL to LAD (05/2021), HTN, DM, CVA, and HLD who was admitted to the hospital for elective PCI. Patient underwent successful PCI of the ostial PDA with MIKHAIL. However, the patient developed dissection of the proximal to mid RCA post balloon angioplasty. Impella catheter then placed for additional support and patient was transferred to CCU. CV surgery consulted for evaluation, in the event further surgical intervention is required Patient seen and examined by Dr. Whitt. Patient is awake, denies pain and hemodynamically stable. Plan is to continue Impella support for now, allowing time for RCA dissection to heal. CV surgery remains available should patient become unstable and require surgical intervention. Thank you for this kind consult Martina Whitt 06/29/21 0947: Attestations Physician Attestation Agree w/findings plan: I have seen and examined Ms. Martinez. I agree with the findings and plan as documented by ZAIRE Guerrero. Briefly, 61-year-old female with right coronary dissection during PCI. Impella was placed through the groin. Patient is currently chest pain-free and hemodynamically stable. She does not need any surgical intervention. We will continue to follow. Thank you for the kind consult. at 2054 at 1004 RPT #:[id number] [facility] 2021-06-24 12:10:00 [id number] [address] PATIENT NAME: MARINA MARTINEZ ADMIT DATE: 06/23/21 ACCOUNT NO: [id number] [place] [facility] [place] 61 REPORT TYPE: eECHOCARDIOGRAM REPORT SEX: F ADMITTING PHYSICIAN:Alejandra Zeng MD ATTENDING PHYSICIAN:Alejandra Zeng MD *[address] [address] Limited Transthoracic Echocardiogram Patient: Marina Martinez Study Date: 06/24/2021 BP: 110 / 56 Location: [facility] URN: [id number] : 1960 Age: 61 Height: 60 in / 152.4 cm Gender: F Weight: 212.6 lb / 96.6 kg BMI/BSA: 41.6 kg/m 2 / 1.92 m 2 *Ordering Physician: * Inga Robertson MD *Interpreting Physician: * Inga Robertson MD *Inspector Firearms: * Angelique Lynch -------- Indications: IMPELLA. -------- Study data: Transthoracic echocardiogram, limited study. Procedure: Transthoracic echocardiography was performed. Images were obtained using a Hopela cardiac ultrasound machine. Image quality was adequate. The study was technically limited due to restricted patient mobility. Limited 2D and limited spectral Doppler. Location: Bedside. Patient status: Inpatient. Patient room number: 3308. Study status: Routine. -------- Findings Left ventricle: The cavity size is normal. Wall thickness is normal. Systolic function is normal. The estimated ejection fraction is 55-59%. Aortic valve: Impella position could not accurately assessed but estimated to be placed at 3.5 cm. PATIENT NAME: MARINA MARTINEZ -------- Measurements Left ventricle Value 05/13/2021 Ref IVORY, [...] ED 1.0 cm 1.1 0.6 - 0.9 -------- Conclusions Summary: Left ventricle: The cavity size is normal. Wall thickness is normal. Systolic function is normal. The estimated ejection fraction is 55-59%. Prepared and electronically signed by Inga Robertson MD 06/24/2021 12:10 at 1210 PATIENT NAME: MARINA MARTINEZ [facility] 2021-06-24 10:07:00 [facility] ([facility] Hospitalist History Physical REPORT#:[id number] REPORT STATUS: Signed DATE:06/24/21 TIME: 1007 PATIENT: MARINA MARTINEZ UNIT #: [id number] ROOM/BED: [place] [address] : [birth year] AGE: 61 SEX: F ATTEND: Alejandra Zeng MD ADM AUTHOR: Agnes Almeida MD * ALL edits or amendments must be made on the electronic/computer document * History of Present Illness HPI Chief complaint: cp HPI: 61 years old female with PMH of CAD , DM, HLD ,Hx of CVA and HTN was admitted to the hospital for staged PCI to right PDA and RCA yesterday . the patient developed dissection of the proximal to mid RCA post balloon angioplasty. impella was inserted . she was transferred to CCU . now she feel well . no cp no sob . no fever no nausea no vomiting no abdominal pain no dysuria History Family History Additional family history: Non contributory Social History Alcohol use: Denies EtOH use Drug use: Benzodiazepines Smoking status: Smoking status for patients 13 years old or older: Never Smoker Medication/Allergy-Vaccine Hx Allergies: Coded Allergies: iodine (Intermediate, HIVES 05/10/21) Converted from Ingredient Allergy: IODINE Review of Systems Constitutional: Denies: fatigue, fever, generalized weakness, lethargy. Respiratory: Denies: productive cough (sputum), SOB, wheezing. Cardiovascular: Denies: chest pain, ELLIS (dyspnea on exertion), edema, orthopnea, palpitations. GI: Denies: abdominal pain, diarrhea, nausea, vomiting. : Denies: dysuria, flank pain, frequency, hematuria. Neuro: Denies: dizziness, headache. Physical Exam VS/I [...] 41.8 General appearance: alert, awake, oriented, no acute distress Head/Eyes: atraumatic, normal conjunctiva/sclera, normal eyelids/periorb., normocephalic Neck: full range of motion, non-tender, normal thyroid, no JVD Cardiovascular: normal heart sounds, regular rate rhythm Respiratory: aerating well, clear to auscultation Abdomen: non-tender, normal bowel sounds, soft, no distention Extremities: moves all, no calf tenderness, no edema Neuro/INSPECTOR FIREARMS: alert, oriented X 3, CNII-XII intact, normal speech, no motor deficits, no sensory deficits Skin: dry, intact Results Findings/Data: Laboratory Tests: 06/24 06/24 06/24 06/24 1240 1121 1030 0830 Chemistry POC Glucose (70 - 110 MG/DL) 165 H 201 H Coagulation PTT (Talbot) (25.0 - 39.5 Seconds) 96.3 H 93.7 [...] (Auto) (14.0 - 32.0 %) 10.2 L Mcnairy % (Auto) (4.8 - 9.0 %) 7.6 Eos % (Auto) (0.3 - 3.7 %) 0.0 L Baso % (Auto) (0.0 - 2.0 %) 0.1 Neut # (Auto) (2.0 - 7.6 x10 3/uL) 10.24 H Lymph # (Auto) (1.0 - 3.8 x10 3/uL) 1.28 Mcnairy # (Auto) (0.1 - 0.8 x10 3/uL) 0.95 H Eos # (Auto) (0.0 - 0.2 x10 3/uL) 0.00 Baso # (Auto) (0.0 - 0.2 x10 3/uL) 0.01 Abs Immat Gran (auto) (0.00 - 0.03 x10 3/uL) 0.06 H Add Manual Diff NO Immature Gran % (0.0 - 2.0 %) 0.5 Nucleated RBC % (0 - 0 %) 0.0 Nucleated RBCs # (Man) (0.0 - 0.1 x10 3/uL) 0.00 06/24 06/24 06/24 06/23 0738 0500 0200 [...] - 2.40 mg/dL) 1.79 L Coagulation PTT (Talbot) (25.0 - 39.5 Seconds) 115.0 H 129.9 [...] (Auto) (14.0 - 32.0 %) 5.4 L Mcnairy % (Auto) (4.8 - 9.0 %) 7.5 Eos % (Auto) (0.3 - 3.7 %) 0.0 L Baso % (Auto) (0.0 - 2.0 %) 0.1 Neut # (Auto) (2.0 - 7.6 x10 3/uL) 13.91 H Lymph # (Auto) (1.0 - 3.8 x10 3/uL) 0.87 L Mcnairy # (Auto) (0.1 - 0.8 x10 3/uL) 1.21 H Eos # (Auto) (0.0 - 0.2 x10 3/uL) 0.00 Baso # (Auto) (0.0 - 0.2 x10 3/uL) 0.01 Abs Immat Gran (auto) (0.00 - 0.03 x10 3/uL) 0.10 H Add Manual Diff NO Immature Gran % (0.0 - 2.0 %) 0.6 Nucleated RBC % (0 - 0 %) 0.0 Nucleated RBCs # (Man) (0.0 - 0.1 x10 3/uL) 0.00 06/235 2014 1950 1745 Chemistry POC Glucose (70 - 110 MG/DL) 316 H Coagulation PTT (Talbot) (25.0 - 39.5 Seconds) 65.5 H 104.0 [...] (Auto) (14.0 - 32.0 %) 6.3 L Mcnairy % (Auto) (4.8 - 9.0 %) 3.4 L Eos % (Auto) (0.3 - 3.7 %) 0.0 L Baso % (Auto) (0.0 - 2.0 %) 0.1 Neut # (Auto) (2.0 - 7.6 x10 3/uL) 10.08 H Lymph # (Auto) (1.0 - 3.8 x10 3/uL) 0.71 L Mcnairy # (Auto) (0.1 - 0.8 x10 3/uL) [...] # (Man) (0.0 - 0.1 x10 3/uL) 0.00 06/23 06/23 06/23 06/23 1701 1625 1459 1416 Chemistry POC Glucose (70 - 110 MG/DL) 365 H Coagulation PTT (Samuel) (25.0 - 39.5 Seconds) > 200.0 H Activated Coag Time (74 - 137 SEC) 267 H 255 H Laboratory Tests 06/24/21 1240: [Embedded Image Not Available] 06/24/21 1030: [Embedded Image Not Available] 04/14/22 0500: [Embedded Image Not Available] 06/23/21 1950: [...] continue home med Consultants: cardiology, cardiovascular surgery, critical/master steam yacht Quality: Gen Med Crit Care Current Medications [...] Heparin Sodium/ 1,000 ML .STK-MED ONE 06/24 1641 DC 06/24 Sodium Chloride IV 1705 Insulin Human Lispro 0 AC HS 06/24 1630 AC SUBQ 07/24 1629 Methylprednisolone 0 .STK-MED ONE 06/24 1629 DC 06/24 Sodium Succinate IV 1705 Norepinephrine 250 ML .STK-MED ONE 06/24 1626 DC 06/24 Bitartrate IV 1705 Phenylephrine HCl 0 .STK-MED ONE 06/24 1607 DC 06/24 I-CHAVEZ 1705 Fentanyl Citrate 0 .STK-MED ONE 06/24 1533 DC 06/24 .ROUTE 1539 Heparin Sodium/ 500 ML .STK-MED ONE 06/24 1533 DC 06/24 Sodium Chloride IV 1539 Lidocaine HCl 0 .STK-MED ONE 06/24 1533 DC 06/24 .ROUTE 1539 Midazolam HCl 0 .STK-MED ONE 06/24 1532 DC 06/24 .ROUTE 1539 Dextrose/Water 25 ML ASDIR PRN [...] Potassium 50 MG DAILY 06/24 0900 AC 06/24 PO 07/24 0859 0916 Sodium Chloride [...] Lispro 0 AC HS 06/23 1800 DC 06/24 SUBQ 07/23 1749 0916 Dextrose/Water 25 ML ASDIR PRN 06/23 1730 DC IV 07/23 1729 Dextrose/Water 50 ML ASDIR PRN 06/23 1730 DC IV 07/23 1729 Glucagon 1 MG ASDIR PRN 06/23 1730 AC IM 07/23 1729 Heparin Sodium 0 ASDIR PRN 06/23 1730 AC IV 07/23 1729 Heparin Sodium 500 ML ASDIR 06/23 1730 CKD 06/24 (Porcine) IV 07/23 1729 0301 Hydrocodone Bitart/ 1 TAB Q6H PRN PRN 06/23 1730 AC Acetaminophen PO 06/28 1729 Morphine Sulfate 4 MG Q2H PRN PRN 06/23 1730 AC 14 IV 06/28 1729 0634 Ondansetron HCl 4 MG Q8H PRN PRN 06/23 1730 AC IV 07/23 1729 Sodium Chloride 1,000 ML .Q10H 06/23 1730 AC 14 IV 07/23 1729 1436 Atropine Sulfate 0.5 MG ASDIR PRN 06/23 1430 DC IV 06/24 1423 Heparin Sodium 12,500 UNIT DAILY PRN PRN 06/23 1430 AC Dextrose/Water 500 ML I-CATHETER 07/23 1429 Heparin Sodium/ 500 ML DAILY PRN PRN 06/23 1430 AC 06/23 Dextrose I-CATHETER 07/23 1429 2302 Sodium Chloride 1,000 ML .[id number] 06/23 1430 DC 06/23 IV 06/24 0349 [...] ANGINA CLOPIDOGREL (PLAVIX) 75 MG PO DAILY at 2103 RPT #:[id number] [facility] 2021-06-24 09:03:00 [facility] ([facility]) Cardiology Consultation REPORT#:[id number] REPORT STATUS: Signed DATE:06/24/21 TIME: 09 PATIENT: MARINA MARTINEZ UNIT #: [id number] ROOM/BED: [place] [address] : [birth year] AGE: 61 SEX: F ATTEND: Alejandra Zeng MD ADM AUTHOR: Zoraida Felder AGACNP * ALL edits or amendments must be made on the electronic/computer document * History of Present Illness HPI [...] RCA post balloon angioplasty. Impella LVAD was inserted for stability. This morning the patient was doing well, awake and alert, no chest pain, and no SOB. Had episode of hypotension which responded to 500 ml IVF challenge. History - Adult longitudinal Past medical history: Reports: Coronary artery disease, Diabetes mellitus, Hypertension, Ischemic stroke. Denies: Atrial fibrillation, Congestive heart failure. Past surgical history: Reports: Cholecystectomy. Additional family history: Non contributory Alcohol use: Denies EtOH use Drug use: Benzodiazepines Smoking status: Smoking status for patients 13 years old or older: Never Smoker Allergies: Coded Allergies: iodine (Intermediate, HIVES 05/10/21) Converted from Ingredient Allergy: IODINE Review of Systems Constitutional: Denies: chills, fatigue, generalized weakness. Respiratory: Denies: SOB. Cardiovascular: Denies: chest pain, edema, orthopnea, palpitations, unstable angina. GI: Denies: abdominal pain, nausea, vomiting. Neuro: Denies: confusion, dizziness, weakness. Objective General VS/I O: Vital Signs: Date Time Temp Pulse Resp B/P B/P Pulse O2 O2 Flow FiO2 Mean Ox Delivery Rate 06/24 0540 68 13 100 06/24 0530 76 26 165/63 107 100 06/24 0528 71 15 175/77 110 100 04/14 0615 68 15 100 04/14 0600 67 17 100 04/14 0545 67 14 137/58 93 100 04/14 0530 67 18 143/67 96 100 04/14 0515 66 19 153/67 96 100 04/14 [...] 0000 37.3 65 13 127/58 83 98 04/13 2345 68 14 131/58 83 99 04/13 2330 71 14 102/62 77 99 04/13 2315 69 14 112/56 81 98 04/13 2300 65 16 126/60 87 98 04/13 2245 64 18 136/66 91 100 04/13 2230 63 17 132/60 86 100 04/13 2215 55 17 125/60 87 99 04/13 2214 54 17 127/60 87 99 04/13 2200 56 20 98 04/13 2145 62 16 127/65 91 98 04/13 2130 64 13 125/65 89 99 04/13 2115 61 16 113/58 80 99 04/13 2100 60 17 117/60 83 99 06/235 59 18 109/59 81 99 06/23 2029 [...] Clopidogrel Bisulfate (Plavix) 75 MG DAILY PO (DA) Duloxetine HCl (CYMBALTA) 20 MG DAILY PO Isosorbide Dinitrate (ISORDIL) 60 MG DAILY PO Losartan Potassium (COZAAR) 50 MG DAILY PO Sodium Chloride (SODIUM CHLORIDE 0.9%) 500 ML DAILY MISC Magnesium Sulfate (MAGNESIUM SULFATE 2GM/SWFI 50ML) 50 ML ONCE ONE IV Atorvastatin Calcium (LIPITOR) 40 MG BEDTIME PO Gabapentin (NEURONTIN) 600 MG BID PO Insulin Glargine (Lantus/Semglee) 25 UNIT BEDTIME SUBQ Insulin Human Lispro (HUMALOG) 0 AC HS SUBQ (DC) Metoprolol Succinate (TOPROL XL) 12.5 MG BID PO Mupirocin (BACTROBAN 2% 22 GM OINTMENT) 1 APPLIC BID NASAL Insulin Human Lispro (HUMALOG) 0 AC HS SUBQ Dextrose/Water (DEXTROSE 50% W SYRINGE) 25 ML ASDIR PRN IV (CKD) Dextrose/Water (DEXTROSE 50% W SYRINGE) 50 ML ASDIR PRN IV (CKD) Glucagon (GLUCAGON) 1 MG ASDIR PRN IM Heparin Sodium (HEPARIN 5000 UNITS/ML) 0 ASDIR PRN IV (DC) Heparin Sodium (HEPARIN 5000 UNITS/ML) 0 ASDIR PRN IV Heparin Sodium (Porcine) (HEPARIN 25,000 UNITS/ [...] IV Fentanyl Citrate (SUBLIMAZE) 0 .STK-MED ONE .ROUTE (DC) Heparin Sodium (HEPARIN SODIUM) 0 .STK-MED ONE .ROUTE (DC) Atropine Sulfate (ATROPINE SULFATE 0.1MG/ML SYR) 0.5 MG ASDIR PRN IV Heparin Sodium (HEPARIN 5000 UNITS/ML) 12,500 UNIT DAILY PRN PRN I- CATHETER Dextrose/Water (DEXTROSE 5% WATER) 500 ML Heparin Sodium/Dextrose (HEPARIN 25,000 UNITS/D5W 500ML) 500 ML DAILY PRN PRN I-CATHETER Sodium Chloride (SODIUM CHLORIDE 0.9%) 1,000 ML .[id number] IV (DC) Sodium Chloride (SODIUM CHLORIDE 0.9%) 500 ML ASDIR PRN IV Fentanyl Citrate (SUBLIMAZE) 0 .STK-MED ONE .ROUTE (DC) Atropine Sulfate (ATROPINE SULFATE 0.1MG/ML SYR) 0 .STK-MED ONE IV (DC) Hydralazine HCl (APRESOLINE) 0 .STK-MED ONE .ROUTE (DC) Heparin Sodium (HEPARIN SODIUM) 0 .STK-MED ONE .ROUTE (DC) Diphenhydramine HCl (BENADRYL) 0 .STK-MED ONE .ROUTE (DC) Methylprednisolone Sodium Succinate (Solu-Medrol 125 MG Vial) 0 .STK-MED ONE .ROUTE (DC) Fentanyl Citrate (SUBLIMAZE) 0 .STK-MED ONE .ROUTE (DC) Midazolam HCl (VERSED) 0 .STK-MED ONE .ROUTE (DC) Verapamil HCl (ISOPTIN) 0 .STK-MED ONE IV (DC) Heparin Sodium (HEPARIN SODIUM) 0 .STK-MED ONE .ROUTE (DC) Heparin Sodium/Sodium Chloride (HEPARIN 2,000 UNITS/NS 1,000mL) 1,000 ML .STK-MED ONE IV (DC) Heparin Sodium/Sodium Chloride (HEPARIN 1,000 UNITS/NS 500ML) 500 ML .STK- MED ONE IV (DC) Iopamidol (ISOVUE-370 100ML) 0 .STK-MED ONE IV (DC) Lidocaine HCl (XYLOCAINE 1%) 0 .STK-MED ONE .ROUTE (DC) Nitroglycerin/Dextrose (NITROGLYCERIN 50,000MCG/D5W 250ML) 250 ML .STK-MED ONE IV (DC) Physical Exam General appearance: alert, awake, oriented, no acute distress, pleasant, conversational Neck: non-tender, no JVD Cardiovascular: CV assessment: regular rate and rhythm, pedal pulses present Respiratory: decreased breath sounds, on oxygen, no distress Abdomen: soft, non-tender, normal bowel sounds, no distention Lower extremity: LE assessment: no edema Musculoskeletal: normal inspection Neuro/INSPECTOR FIREARMS: alert, oriented X 3, normal speech Skin: [...] 0738 0500 0200 2200 2055 Coagulation PTT (Talbot) (25.0 - 39.5 Seconds) 115.0 H 129.9 H 45.4 H 33.3 65.5 H 06/23 06/23 06/23 06/23 06/23 1950 1745 1625 1459 1416 Coagulation PTT (Talbot) (25.0 - 39.5 Seconds) 104.0 H > 200.0 H > 200.0 H Activated Coag Time [...] - 32.0 %) 5.4 L 6.3 L Mcnairy % (Auto) (4.8 - 9.0 %) 7.5 3.4 L Eos % (Auto) (0.3 - 3.7 %) 0.0 L 0.0 L Baso % (Auto) (0.0 - 2.0 %) 0.1 0.1 Neut # (Auto) (2.0 - 7.6 x10 3/uL) 13.91 H 10.08 H Lymph # (Auto) (1.0 - 3.8 x10 3/uL) 0.87 L 0.71 L Mcnairy # (Auto) (0.1 - 0.8 x10 3/uL) 1.21 H 0.38 Eos # (Auto) (0.0 - 0.2 x10 3/uL) 0.00 0.00 Baso # (Auto) (0.0 - 0.2 x10 3/uL) 0.01 0.01 Abs Immat Gran (auto) (0.00 - 0.03 x10 3/uL) 0.10 H 0.05 H Add Manual Diff NO NO Immature Gran % (0.0 - 2.0 %) 0.6 0.4 Nucleated RBC % (0 - 0 %) 0.0 0.0 Nucleated RBCs # (Man) (0.0 - 0.1 x10 3/uL) 0.00 0.00 Laboratory Tests 06/24 0500 Chemistry Magnesium [...] RCA post balloon angioplasty. Impella LVAD was inserted for stability. This morning the patient was doing well, awake and alert, no chest pain, and no SOB. Had episode of hypotension which responded to 500 ml IVF challenge. 1. Angina with known CAD 06/23/21: PCI/MIKHAIL of ostial PDA RCA dissection Impella LVAD support, wean to P4 - will DC today if hgb stable hypotensive earlier -responded to fluid challenge NS 500 ml Systemic heparin on hold due to hyperterapeutic PTT continue DAPT, BB, statin 2. Hypertension transient episode of hypotension this morning - responded to IVF hold all antihypertensive medications for now - will resume as appropiate 3. Diabetes mellitus continue lantus and insulin sliding scale 4. Hyperlipidemia continue statin at 1440 at 2256 RPT #:[id number] [facility] 2021-06-24 09:03:00 [facility] ([facility]) Cardiology Consultation REPORT#:[id number] REPORT STATUS: Signed DATE:06/24/21 TIME: 0903 PATIENT: MARINA MARTINEZ UNIT #: [id number] ROOM/BED: [place] [address] : [birth year] AGE: 61 SEX: F ATTEND: Alejandra Zeng MD ADM AUTHOR: Zoraida Felder * ALL edits or amendments must be made on the electronic/computer document * History of Present Illness HPI [...] RCA post balloon angioplasty. Impella LVAD was inserted for stability. This morning the patient was doing well, awake and alert, no chest pain, and no SOB. Had episode of hypotension which responded to 500 ml IVF challenge. History - Adult longitudinal Past medical history: Reports: Coronary artery disease, Diabetes mellitus, Hypertension, Ischemic stroke. Denies: Atrial fibrillation, Congestive heart failure. Past surgical history: Reports: Cholecystectomy. Additional family history: Non contributory Alcohol use: Denies EtOH use Drug use: Benzodiazepines Smoking status: Smoking status for patients 13 years old or older: Never Smoker Allergies: Coded Allergies: iodine (Intermediate, HIVES 05/10/21) Converted from Ingredient Allergy: IODINE Review of Systems Constitutional: Denies: chills, fatigue, generalized weakness. Respiratory: Denies: SOB. Cardiovascular: Denies: chest pain, edema, orthopnea, palpitations, unstable angina. GI: Denies: abdominal pain, nausea, vomiting. Neuro: Denies: confusion, dizziness, weakness. Objective General VS/I O: Vital Signs: Date Time Temp Pulse Resp B/P B/P Pulse O2 O2 Flow FiO2 Mean Ox Delivery Rate / 0640 68 13 100 04/14 0630 76 26 165/63 107 100 /14 0628 71 15 175/77 110 100 /14 0615 68 15 100 04/14 0600 67 17 100 04/14 0545 67 14 137/58 93 100 04/14 0530 67 18 143/67 96 100 04/14 0515 66 19 153/67 96 100 04/14 [...] 04/14 0316 66 13 141/63 90 99 /14 0315 67 13 100 04/14 0300 64 [...] 04/14 0100 67 16 107/54 77 100 /14 0045 66 12 102/54 76 99 04/14 0030 65 14 110/54 78 99 06/24 0020 63 12 99 06/24 0015 64 15 105/63 76 99 04 0000 37.3 65 13 127/58 83 98 04/ 2345 68 14 131/58 83 99 / 2330 71 14 102/62 77 99 / 2315 69 14 112/56 81 98 / 2300 65 16 126/60 87 98 06/23 2245 64 18 136/66 91 100 / 2230 63 17 132/60 86 100 / 2215 55 17 125/60 87 99 06/23 [...] Clopidogrel Bisulfate (Plavix) 75 MG DAILY PO (DA) Duloxetine HCl (CYMBALTA) 20 MG DAILY PO Isosorbide Dinitrate (ISORDIL) 60 MG DAILY PO Losartan Potassium (COZAAR) 50 MG DAILY PO Sodium Chloride (SODIUM CHLORIDE 0.9%) 500 ML DAILY MISC Magnesium Sulfate (MAGNESIUM SULFATE 2GM/SWFI 50ML) 50 ML ONCE ONE IV Atorvastatin Calcium (LIPITOR) 40 MG BEDTIME PO Gabapentin (NEURONTIN) 600 MG BID PO Insulin Glargine (Lantus/Semglee) 25 UNIT BEDTIME SUBQ Insulin Human Lispro (HUMALOG) 0 AC HS SUBQ (DC) Metoprolol Succinate (TOPROL XL) 12.5 MG BID PO Mupirocin (BACTROBAN 2% 22 GM OINTMENT) 1 APPLIC BID NASAL Insulin Human Lispro (HUMALOG) 0 AC HS SUBQ Dextrose/Water (DEXTROSE 50% W SYRINGE) 25 ML ASDIR PRN IV (CKD) Dextrose/Water (DEXTROSE 50% W SYRINGE) 50 ML ASDIR PRN IV (CKD) Glucagon (GLUCAGON) 1 MG ASDIR PRN IM Heparin Sodium (HEPARIN 5000 UNITS/ML) 0 ASDIR PRN IV (DC) Heparin Sodium (HEPARIN 5000 UNITS/ML) 0 ASDIR PRN IV Heparin Sodium (Porcine) (HEPARIN 25,000 UNITS/ [...] IV Fentanyl Citrate (SUBLIMAZE) 0 .STK-MED ONE .ROUTE (DC) Heparin Sodium (HEPARIN SODIUM) 0 .STK-MED ONE .ROUTE (DC) Atropine Sulfate (ATROPINE SULFATE 0.1MG/ML SYR) 0.5 MG ASDIR PRN IV Heparin Sodium (HEPARIN 5000 UNITS/ML) 12,500 UNIT DAILY PRN PRN I- CATHETER Dextrose/Water (DEXTROSE 5% WATER) 500 ML Heparin Sodium/Dextrose (HEPARIN 25,000 UNITS/D5W 500ML) 500 ML DAILY PRN PRN I-CATHETER Sodium Chloride (SODIUM CHLORIDE 0.9%) 1,000 ML .[id number] IV (DC) Sodium Chloride (SODIUM CHLORIDE 0.9%) 500 ML ASDIR PRN IV Fentanyl Citrate (SUBLIMAZE) 0 .STK-MED ONE .ROUTE (DC) Atropine Sulfate (ATROPINE SULFATE 0.1MG/ML SYR) 0 .STK-MED ONE IV (DC) Hydralazine HCl (APRESOLINE) 0 .STK-MED ONE .ROUTE (DC) Heparin Sodium (HEPARIN SODIUM) 0 .STK-MED ONE .ROUTE (DC) Diphenhydramine HCl (BENADRYL) 0 .STK-MED ONE .ROUTE (DC) Methylprednisolone Sodium Succinate (Solu-Medrol 125 MG Vial) 0 .STK-MED ONE .ROUTE (DC) Fentanyl Citrate (SUBLIMAZE) 0 .STK-MED ONE .ROUTE (DC) Midazolam HCl (VERSED) 0 .STK-MED ONE .ROUTE (DC) Verapamil HCl (ISOPTIN) 0 .STK-MED ONE IV (DC) Heparin Sodium (HEPARIN SODIUM) 0 .STK-MED ONE .ROUTE (DC) Heparin Sodium/Sodium Chloride (HEPARIN 2,000 UNITS/NS 1,000mL) 1,000 ML .STK-MED ONE IV (DC) Heparin Sodium/Sodium Chloride (HEPARIN 1,000 UNITS/NS 500ML) 500 ML .STK- MED ONE IV (DC) Iopamidol (ISOVUE-370 100ML) 0 .STK-MED ONE IV (DC) Lidocaine HCl (XYLOCAINE 1%) 0 .STK-MED ONE .ROUTE (DC) Nitroglycerin/Dextrose (NITROGLYCERIN 50,000MCG/D5W 250ML) 250 ML .STK-MED ONE IV (DC) Physical Exam General appearance: alert, awake, oriented, no acute distress, pleasant, conversational Neck: non-tender, no JVD Cardiovascular: CV assessment: regular rate and rhythm, pedal pulses present Respiratory: decreased breath sounds, on oxygen, no distress Abdomen: soft, non-tender, normal bowel sounds, no distention Lower extremity: LE assessment: no edema Musculoskeletal: normal inspection Neuro/INSPECTOR FIREARMS: alert, oriented X 3, normal speech Skin: [...] (25.0 - 39.5 Seconds) 104.0 H > 200.0 H > 200.0 H Activated Coag Time [...] - 32.0 %) 5.4 L 6.3 L Mcnairy % (Auto) (4.8 - 9.0 %) 7.5 3.4 L Eos % (Auto) (0.3 - 3.7 %) 0.0 L 0.0 L Baso % (Auto) (0.0 - 2.0 %) 0.1 0.1 Neut # (Auto) (2.0 - 7.6 x10 3/uL) 13.91 H 10.08 H Lymph # (Auto) (1.0 - 3.8 x10 3/uL) 0.87 L 0.71 L Mcnairy # (Auto) (0.1 - 0.8 x10 3/uL) 1.21 H 0.38 Eos # (Auto) (0.0 - 0.2 x10 3/uL) 0.00 0.00 Baso # (Auto) (0.0 - 0.2 x10 3/uL) 0.01 0.01 Abs Immat Gran (auto) (0.00 - 0.03 x10 3/uL) 0.10 H 0.05 H Add Manual Diff NO NO Immature Gran % (0.0 - 2.0 %) 0.6 0.4 Nucleated RBC % (0 - 0 %) 0.0 0.0 Nucleated RBCs # (Man) (0.0 - 0.1 x10 3/uL) 0.00 0.00 Laboratory Tests 04/14 0500 Chemistry Magnesium (1.80 - 2.40 mg/dL) [...] RCA post balloon angioplasty. Impella LVAD was inserted for stability. This morning the patient was doing well, awake and alert, no chest pain, and no SOB. Had episode of hypotension which responded to 500 ml IVF challenge. 1. Angina with known CAD 06/23/21: PCI/MIKHAIL of ostial PDA RCA dissection Impella LVAD support, wean to P4 - will DC today if hgb stable hypotensive earlier -responded to fluid challenge NS 500 ml Systemic heparin on hold due to hyperterapeutic PTT continue DAPT, BB, statin 2. Hypertension transient episode of hypotension this morning - responded to IVF hold all antihypertensive medications for now - will resume as appropiate 3. Diabetes mellitus continue lantus and insulin sliding scale 4. Hyperlipidemia continue statin at 1440 RPT #[id number] [facility] 2021-06-23 15:18:00 [id number] [place] [address] PATIENT NAME: MARINA MARTINEZ ADMIT DATE: 06/23/21 ACCOUNT NO: [id number] ROOM NO: G.[id number] AGE: 61 REPORT TYPE: CARDIAC CATHETERIZATION REPORT SEX: F ADMITTING PHYSICIAN:Alejandra Zeng MD ATTENDING PHYSICIAN:Alejandra Zeng MD PROCEDURE DATE: 06/23/2021 PROCEDURES PERFORMED: 1. PCI of the severe ostial right PDA using a 2.5 x 60 mm Synergy drug-eluting stent. 2. Impella left ventricular assist device insertion. INDICATIONS: Typical angina with known severe right PDA and right coronary artery stenosis. ACCESS: Right femoral artery 14-Niuean Impella was left in place. COMPLICATIONS: Dissection of the proximal to mid RCA and were not able to recanalize the true lumen. DESCRIPTION OF PROCEDURE: After risks, benefits, and alternatives were explained, the patient agreed to proceed and signed informed consent. The patient was brought into the cardiac catheterization laboratory, prepped and draped in usual sterile fashion. Then, we accessed the right femoral artery using micropuncture kit, fluoroscopy and ultrasound guidance and placed a 6-Niuean sheath and then took a 6-Niuean JR4 guide into the aortic root, engaged the RCA, had significant drop in pressure at the moment we engaged it, so we sent a wire through to the distal PDA and then disengaged from the ostium. Subsequently, dilated the PDA lesion and then delivered a 2.5 x 60 mm Synergy drug-eluting stent successfully and then dilated the whole RCA proximal to mid, has severe disease including the ostium and then shortly after that the patient had a cough that dislodge the guide and dislodged the wires out of the RCA. Subsequently, we attempted multiple times to rewire the RCA; however, due to the dissection post-balloon angioplasty, was not able to get the wire through. Multiple attempts were done, different wires and discussed with colleagues attempted as well. Dr. Miguel took it into the lumen; however, was not successful. At this point, angiographically we were able to create a channel through the dissection and that was given flow through the RCA all the way distally. As such, decided to abort the procedure and inserted the Impella for stability, upgraded the 6-Niuean sheath to the 14-Niuean Impella sheath and took Impella into the LV and below. CP was started maintaining good hemodynamics with main perfusing pressure more than 17. The patient was chest pain free at that time. At this point, we decided to keep the Impella for 24 to 48 hours and then we will assess the patient clinically. PLAN: To wait for this dissection to heal and bring her back at a later time and reassess. Discussed the case with CV surgery as well. The patient will be admitted to the CCU for close monitoring and family were updated. PATIENT NAME: MARINA MARTINEZ Dictated By: Dany Mcdonald MD WT: CATH:CARLOTA/CHRISTINA/JULIO C Conf#: [id number]/DID#: [id number] Authenticated by Dany Mcdonald MD On 07/14/2021 09:19:24 AM at 0919 PATIENT NAME: MARINA MARTINEZ [facility] 2021-06-21 13:17:00 [id number] [place] [address] PATIENT NAME: MARINA MARTINEZ ADMIT DATE: ACCOUNT NO: [id number] ROOM NO: AGE: 61 REPORT TYPE: eELECTROCARDIOGRAM REPORT SEX: F ADMITTING PHYSICIAN: ATTENDING PHYSICIAN:Dany Mcdonald MD Order: [id number] Test Reason : PREOP Test Date/Time Stamp: MonJun 21 2021 13:17:24 Blood Pressure : / mmHG Vent. Rate : 066 BPM Atrial Rate : 066 BPM P-R Int : 154 ms QRS Dur : 086 ms QT Int : 416 ms P-R-T Axes : 058 015 065 degrees QTc Int : 436 ms Normal sinus rhythm RSR' or QR pattern in V1 suggests right ventricular conduction delay Abnormal ECG PRE_OP Confirmed by WILLIAM FRIAS MD ([id number]) on 06/21/2021 1:23:10 PM Referred By: Dany Mcdonald Confirmed by:WILLIAM FRIAS MD at 1323 PATIENT NAME: MARINA MARTINEZ [facility] 2021-05-13 18:07:00 [id number] [place] [address] PATIENT NAME: MARINA MARTINEZ ADMIT DATE: 05/12/21 ACCOUNT NO: [id number] ROOM NO: G.3360 AGE: 61 REPORT TYPE: eECHOCARDIOGRAM REPORT SEX: F ADMITTING PHYSICIAN:Inga Robertson MD ATTENDING PHYSICIAN:Inga Robertson MD *[address] [address] Limited Transthoracic Echocardiogram Patient: Marina Martinez Study Date: 05/13/2021 BP: 99 / 60 Location: [facility] URN: [id number] : 1960 Age: 61 Height: 60 in / 152.4 cm Gender: F Weight: 206.6 lb / 93.9 kg BMI/BSA: 40.4 kg/m 2 / 2.05 m 2 *Ordering Physician: * Zoraida Felder *Interpreting Physician: * Inga Robertson MD *Inspector Firearms: * Jeana Epstein -------- Indications: R/O PEROCARDIAL EFUSSION. -------- Study data: Transthoracic echocardiogram, limited study. Procedure: Transthoracic echocardiography was performed. Image quality was fair. Limited 2D and limited spectral Doppler. Location: Bedside. Patient status: Inpatient. Patient room number: 3360. Study status: Stat. -------- Findings Left ventricle: The cavity size is normal. Wall thickness is normal. Systolic function is normal. The estimated ejection fraction is 60-64%. Wall motion is normal; there are no regional wall motion abnormalities. Aorta: Aortic root: The aortic root is normal in size. Mitral valve: The valve is structurally normal. There is no evidence of stenosis. There is mild regurgitation. PATIENT NAME: MARINA MARTINEZ Pericardium: There is no pericardial effusion. Systemic veins: Inferior vena cava: The vessel is normal in size. The respirophasic diameter changes are in the normal range (= 50%). -------- Measurements Left ventricle Value 05/12/2021 Ref IVORY, [...] Mitral valve Value 05/12/2021 Ref PATIENT NAME: MARINA MARTINEZ Peak E 0.08 m/sec 1.03 ------ Peak [...] diam, 2.77 cm 2.48 ------ ED MM -------- Conclusions Summary: 1. Left ventricle: The cavity size is normal. Wall thickness is normal. Systolic function is normal. The estimated ejection fraction is 60-64%. Wall motion is normal; there are no regional wall motion abnormalities. 2. Pericardium, extracardiac: There is no pericardial effusion. 3. Inferior vena cava: The vessel is normal in size. The respirophasic diameter changes are in the normal range (= 50%). Prepared and electronically signed by Inga Robertson MD 05/13/2021 18:07 at 1807 PATIENT NAME: MARINA MARTINEZ [facility] 2021-05-13 14:22:00 [id number] [place] [address] PATIENT NAME: MARINA MARTINEZ ADMIT DATE: 05/12/21 ACCOUNT NO: [id number] ROOM NO: [facility] AGE: 61 REPORT TYPE: eECHOCARDIOGRAM REPORT SEX: F ADMITTING PHYSICIAN:Inga Robertson MD ATTENDING PHYSICIAN:Inga Robertson MD *[place] [address] Limited Transthoracic Echocardiogram Patient: Marina Martinez Study Date: 05/12/2021 BP: 118 / 62 Location: [facility] URN: [id number] : 1960 Age: 61 Height: 60 in / 152.4 cm Gender: F Weight: 296.4 lb / 134.7 kg BMI/BSA: 58 kg/m 2 / 2.49 m 2 *Ordering Physician: * Dany Mcdonald *Interpreting Physician: * Inga Robertson MD *Inspector Firearms: * Angy Tesfaye -------- Indications: Hypotension. -------- Study data: Transthoracic echocardiogram, limited study. Procedure: Transthoracic echocardiography was performed. Image quality was adequate. Limited 2D and limited spectral Doppler. Location: [facility]. Patient status: Outpatient. Patient room number: 19. Study status: Routine. Rhythm: Normal sinus rhythm. -------- Findings Left ventricle: The cavity size is normal. Wall thickness is normal. Systolic function is normal. The estimated ejection fraction is 55-60%. Wall motion is normal; there are no regional wall motion abnormalities. Left ventricular diastolic function parameters are normal for the patient's age. PATIENT NAME: MARINA MARTINEZ Right ventricle: Estimated TAPSE is 2.8 cm. The cavity size is normal. Systolic function is normal. Left atrium: The atrium is normal in size. Right atrium: The atrium is normal in size. Aorta: Aortic root: The aortic root is normal in size. Aortic valve: The valve is structurally normal. The valve is trileaflet. There is no evidence of stenosis. There is no regurgitation. Mitral valve: The valve is structurally normal. There is no evidence of stenosis. There is trivial regurgitation. Tricuspid valve: Estimated right ventricle systolic pressure is 34.40 mmHg. The valve is structurally normal. There is mild-moderate regurgitation. Pulmonic valve: The valve is structurally normal. There is no regurgitation. Pericardium: There is no pericardial effusion. Pulmonary arteries: The main pulmonary artery is normal-sized. Systemic veins: Inferior vena cava: The vessel is normal in size. -------- Measurements Left ventricle Value Ref IVORY, LAX [...] --------- SV 88 ml --------- PATIENT NAME: MARINA MARTINEZ Qs 5.74 L/min --------- Qs/bsa 2.3 L/(min-m [...] cm 2 --------- Pulmonic valve Value Ref OH v, ED 0.65 m/sec --------- Tricuspid valve Value Ref TR peak v 2.47 m/sec <=2.8 Peak RV-RA 24 mm Hg --------- PATIENT NAME: MARINA MARTINEZ Jason mariee Aortic root Value Ref Root diam, ED 2.48 cm --------- MM -------- Conclusions Summary: 1. Left ventricle: The cavity size is normal. Wall thickness is normal. Systolic function is normal. The estimated ejection fraction is 55-60%. Wall motion is normal; there are no regional wall motion abnormalities. Left ventricular diastolic function parameters are normal for the patient's age. 2. Mitral valve: There is trivial regurgitation. 3. Tricuspid valve: Estimated right ventricle systolic pressure is 34.40 mmHg. There is mild-moderate regurgitation. 4. Pericardium, extracardiac: There is no pericardial effusion. Prepared and electronically signed by Inga Robertson MD 05/13/2021 14:22 at 1422 PATIENT NAME: [address] [facility] 2021-05-13 09:26:00 [facility] Cardiology Progress Note REPORT#:[id number] REPORT STATUS: Signed DATE:05/13/21 TIME: 925 PATIENT: MARINA MARTINEZ UNIT #: [id number] ROOM/BED: [place] [address] : [birth year] AGE: 61 SEX: F ATTEND: Inga Robertson MD ADM AUTHOR: Zoraida Felder * ALL edits or amendments must be made on the electronic/computer document * See Addendum Subjective Patient reports: Yes: chest pain. Objective General VS/I O: 24 hour I O ending at 0700: 05/13 0700 05/12 1900 Intake Total 200 Output Total Balance 200 Intake, Oral 200 Number Voids 1 Vital Signs: Date Time Temp Pulse Resp B/P B/P Pulse O2 O2 Flow FiO2 Mean Ox Delivery Rate 05/13 0733 36.8 66 18 148/79 101.9 98 Room [...] Dextrose/Water (DEXTROSE 50% W SYRINGE) 25 ML ASDIR PRN IV (CKD) Dextrose/Water (DEXTROSE 50% W SYRINGE) 50 ML ASDIR PRN IV (CKD) Diphenhydramine HCl (BENADRYL) 12.5 [...] Insulin Aspart (NovoLOG) 1 UNIT ASDIR SUBQ (PEND) Methotrexate (METHOTREXATE) 2.5 MG Q7D PO (PEND) Sodium Chloride (SODIUM CHLORIDE 0.9%) 1,000 ML .[id number] ONE IV (DC) Sodium Chloride (SODIUM CHLORIDE 0.9%) 500 ML ASDIR PRN IV Hydrocodone Bitart/Acetaminophen (NORCO 10/325) 1 TAB Q6H PRN PRN PO Diphenhydramine HCl (BENADRYL) 0 .STK-MED ONE .ROUTE (DC) Hydralazine HCl (APRESOLINE) 0 .STK-MED ONE .ROUTE (DC) Clopidogrel Bisulfate (CLOPIDOGREL BISULFATE) 0 .STK-MED ONE .ROUTE (DC) Adenosine (ADENOSCAN) 0 .STK-MED ONE IV (DC) Sodium Chloride (SODIUM CHLORIDE 0.9%) 50 ML .STK-MED ONE IV (DC) Fentanyl Citrate (SUBLIMAZE) 0 .STK-MED ONE .ROUTE (DC) Midazolam HCl (VERSED) 0 .STK-MED ONE .ROUTE (DC) Diphenhydramine HCl (BENADRYL) 0 .STK-MED ONE .ROUTE (DC) Methylprednisolone Sodium Succinate (Solu-Medrol 125 MG Vial) 0 .STK-MED ONE .ROUTE (DC) Heparin Sodium/Sodium Chloride (HEPARIN 1,000 UNITS/NS 500ML) 1,500 ML .STK- MED ONE IV (DC) Nitroglycerin/Dextrose (NITROGLYCERIN 50,000MCG/D5W 250ML) 250 ML .STK-MED ONE IV (DC) Verapamil HCl (ISOPTIN) 0 .STK-MED ONE IV (DC) Heparin Sodium (HEPARIN SODIUM) 0 .STK-MED ONE .ROUTE (DC) Lidocaine HCl (LIDOCAINE HCL/PF) 0 .STK-MED ONE .ROUTE (DC) Aspirin (ASPIRIN) 0 .STK-MED ONE PO (DC) Clopidogrel Bisulfate (Plavix) 0 .STK-MED ONE PO (DC) Physical Exam General appearance: alert, awake, oriented, no acute distress Cardiovascular: CV assessment: regular rate and rhythm, BP pulses = bilaterally, normal heart sounds, pedal pulses present Respiratory: clear to auscultation, no distress Abdomen: soft, non-tender, normal bowel sounds, no distention Genitourinary: no flank pain, no hilliard Lower extremity: LE assessment: no calf tenderness, no edema Musculoskeletal: normal inspection Neuro/INSPECTOR FIREARMS: alert, oriented X 3, normal speech Skin: dry, intact, normal color Wound/incision: Location: groin access stable Psychiatry: normal affect, normal judgment/insight, normal mood Results Findings/Data: Laboratory Tests 05/13 [...] (Auto) (14.0 - 32.0 %) 9.7 L Mcnairy % (Auto) (4.8 - 9.0 %) 6.9 Eos % (Auto) (0.3 - 3.7 %) 0.0 L Baso % (Auto) (0.0 - 2.0 %) 0.1 Neut # (Auto) (2.0 - 7.6 x10 3/uL) 9.92 H Lymph # (Auto) (1.0 - 3.8 x10 3/uL) 1.16 Mcnairy # (Auto) (0.1 - 0.8 x10 3/uL) 0.82 H Eos # (Auto) (0.0 - 0.2 x10 3/uL) 0.00 Baso # (Auto) (0.0 - 0.2 x10 3/uL) 0.01 Abs Immat Gran (auto) (0.00 - 0.03 x10 3/uL) 0.04 H Add Manual Diff NO Immature Gran % (0.0 - 2.0 %) 0.3 Nucleated RBC % (0 - 0 %) 0.0 Nucleated RBCs # (Man) (0.0 - 0.1 x10 3/uL) 0.00 EKG Interpretation: normal sinus rhythm Telemetry Interpretation: sinus rhythm Diagnosis, Assessment Plan Problem List/A P: 1. Coronary artery disease 2. Diabetes mellitus 3. Hypertension 4. Rheumatoid arthritis Plan discussed with: patient, daughter, nurse Free Text DxA P Notes Free Text DxA P Notes: 61 YO Female with PMHx of CAD with prior PCI, hypertension, diabetes mellitus, CVA, rheumatoid arthritis who was brought in electively for staged PCI to LAD. She underwent succesful PCI of the severe proximal LAD using distal to proximal 2.75 x 24 mm Synergy drug-eluting stent overlapped with a 3.5 x 24 mm Synergy drug-eluting stent and then overlapped proximally to the ostium of the LAD using a 3.5 x 12 mm Synergy drug-eluting stent. The patient has iodine allergy and had some shortness of breath and sensation of throat closing during the procedure. She is currently doing better. No signs of respiratory distress, no stridor, or wheezing. She is maintaining her aiway. She will be admitted to CCU for observation. Gently IV hydration is initited. Anticipate discharge in the morning if stable. Continue [...] the face. EKG normal. Will get 2 sets of troponin and will get limited echo. If stable, possibly DC home later this afternoon. 2. Hypertension BP stable continue losartan and BB 3. Iodine allergy monitor for resp distress stable on RA 4. Diabetes mellitus patient use Tresiba but NF here continue insulin sliding scale at 1232 at 0755 Addendum 1: 05/13/21 1656 by Zoraida Felder Atypical chest pain. Troponins 1583 followed by 1599. These troponin elevation is likely related to the procedure yesterday. Limited echo reviewed and it's unremarkable, normal EF, no pericardial effusion. Okay to discharge home and follow-up with Dr. Mcdonald next week. at 1700 RPT #:[id number] [facility] 2021-05-13 08:03:00 [phone] [place] [address] PATIENT NAME: MARINA MARTINEZ ADMIT DATE: 05/12/21 ACCOUNT NO: [id number] ROOM NO: [facility] AGE: 61 REPORT TYPE: eELECTROCARDIOGRAM REPORT SEX: F ADMITTING PHYSICIAN:Inga Robertson MD ATTENDING PHYSICIAN:Inga Robertson MD Order: [id number] Test Reason : POST PCI Test Date/Time Stamp: MonMay 13 2021 08:03:27 Blood Pressure : / mmHG Vent. Rate : 072 BPM Atrial Rate : 072 BPM P-R Int : 152 ms QRS Dur : 084 ms QT Int : 408 ms P-R-T Axes : 056 019 025 degrees QTc Int : 446 ms Normal sinus rhythm Normal ECG When compared with ECG of 12-MAY-2021 12:29, No significant change was found Confirmed by MD ROBERTSON MOLHAM ([id number]) on 05/23/2021 9:37:22 AM Referred By: Dany Mcdonald Confirmed by:INGA ROBERTSON MD at 0937 PATIENT NAME: MARINA MARTINEZ [facility] 2021-05-12 16:18:00 [facility] ([facility]) History Physical - Adult REPORT#:[id number] REPORT STATUS: Signed DATE:05/12/21 TIME: 1618 PATIENT: MARINA MARTINEZ UNIT #: [id number] ROOM/BED: [place] [address] : [birth year] AGE: 61 SEX: F ATTEND: Inga Robertson MD ADM AUTHOR: Zoraida Felder * ALL edits or amendments must be made on the electronic/computer document * History of Present Illness HPI Chief complaint: Back pain PCP: PCP: Undefined Provider HPI: 61 YO Female with PMHx of CAD with prior PCI, hypertension, diabetes mellitus, CVA, rheumatoid arthritis who was brought in electively for staged PCI to LAD. She underwent succesful PCI of the severe proximal LAD using distal to proximal 2.75 x 24 mm Synergy drug-eluting stent overlapped with a 3.5 x 24 mm Synergy drug-eluting stent and then overlapped proximally to the ostium of the LAD using a 3.5 x 12 mm Synergy drug-eluting stent.The patient has iodine allergy and had some shortness of breath and sensation of throat closing during the procedure. She is currently doing better. No signs of respiratory distress, no stridor, or wheezing. She is maintaining her aiway. She will be admitted to CCU for observation. Gently IV hydration is initited. Anticipate discharge in the morning if stable. Continue Plavix, baby ASA, statin. We will hold betablocker as she is bradycadic with HR in the 50s. Right groin puncture soft, no hematoma or bleeding. Informant/historian: patient History Past medical history: Reports: Coronary artery disease, Diabetes mellitus, Hypertension, Ischemic stroke. Denies: Atrial fibrillation, Congestive heart failure. Past surgical history: Reports: Cholecystectomy. Additional family history: Non contributory Alcohol use: Denies EtOH use Drug use: Benzodiazepines Smoking status: Smoking status for patients 13 years old or older: Never Smoker Medication/Allergy-Vaccine Hx Medications: Home Medications: Medication Dose/Rte/Freq Days Qty Entered Last Max Daily Dose Reviewed GABAPENTIN (NEURONTIN) 600 MG PO BID 05/10/21 05/12/21 Strength: 600 MG TAB 1450 0856 FOLIC ACID 1 MG PO DAILY 05/10/21 05/12/21 Strength: 1 MG TAB 1450 0856 METOPROLOL SUCC XL 12.5 MG PO BID 05/10/21 05/12/21 (TOPROL XL) 1450 0856 Strength: 25 MG TAB.SR.24H ISOSORBIDE DINITRATE 60 MG PO DAILY 05/10/21 05/12/21 (ISORDIL) 1452 0856 Strength: 40 MG TAB ASPIRIN 81 MG PO DAILY 05/10/21 05/12/21 Strength: 81 MG TAB.CHEW [address] (CYMBALTA) 20 MG PO DAILY 05/10/21 05/12/21 Strength: 20 MG CAP.DR 1452 0856 LOSARTAN (COZAAR) 50 MG PO DAILY 05/10/21 05/12/21 Strength: 50 MG TAB 1454 0856 CLOPIDOGREL (PLAVIX) 75 MG PO DAILY 05/10/21 05/12/21 Strength: 75 MG TAB 1454 0856 ATORVASTATIN (LIPITOR) 40 MG PO BEDTIME 05/10/21 05/12/21 Strength: 40 MG TAB 1455 0856 METHOTREXATE 2.5 MG PO Q7D 05/10/21 05/12/21 (RHEUMATREX) 1456 0856 Strength: 2.5 MG TAB INSULIN ASPART (NovoLOG) 1 UNITS SUBQ ASDIR 05/10/21 05/12/21 Strength: 100 UNIT/ML 1456 0856 VIAL Insulin Degludec 26 UNITS SUBQ DAILY 05/10/21 05/12/21 (TRESIBA FLEXTOUCH 1457 0857 U-100 (3mL)) [...] Diphenhydramine HCl 0 .STK-MED ONE 05/12 1156 DC (BENADRYL) .ROUTE Diphenhydramine HCl 0 .STK-MED ONE 05/12 1015 DC 05/12 (BENADRYL) .ROUTE 1141 Antineoplastic Agents Sig/Nandini [...] Heparin Sodium/ 1,500 ML .STK-MED ONE 05/12 0959 DC 05/12 Sodium Chloride IV 1141 (HEPARIN 1,000 UNITS/ NS 500ML) Heparin Sodium 0 .STK-MED ONE 05/12 0958 DC 05/12 (HEPARIN SODIUM) .ROUTE 1141 Clopidogrel Bisulfate 0 .STK-MED ONE 05/12 0929 DC 05/12 (Plavix) PO 0933 Cardiovascular Drugs Sig/Nandini Start time Last Medication Dose Route Stop Time Status Admin Isosorbide Dinitrate 60 MG DAILY 05/13 0900 AC (ISORDIL) PO 06/12 0859 Losartan Potassium 50 MG DAILY 05/13 0900 AC (COZAAR) PO 06/12 0859 Atorvastatin Calcium 40 MG BEDTIME 05/12 2100 AC (LIPITOR) PO 06/11 2058 Metoprolol Succinate 12.5 MG BID 05/12 2100 AC (TOPROL XL) PO 06/11 205 Hydralazine HCl 0 .STK-MED ONE 05/12 1120 DC 05/12 (APRESOLINE) .ROUTE 1141 Adenosine 0 .STK-MED ONE 05/12 1028 DC 05/12 (ADENOSCAN) IV 1141 Nitroglycerin/ 250 ML .STK-MED ONE 05/12 0959 DC 05/12 Dextrose IV 1141 (NITROGLYCERIN 50,000MCG/D5W 250ML) Verapamil HCl 0 .STK-MED ONE 05/12 0959 DC (ISOPTIN) IV Lidocaine HCl 0 .STK-MED ONE 05/12 0958 DC 05/12 (LIDOCAINE HCL/PF) .ROUTE 1141 Central Nervous System [...] Bitart/ 1 TAB Q6H PRN PRN 05/12 1330 AC 05/12 Acetaminophen PO 05/17 1329 1544 (NORCO 10/325) Fentanyl Citrate 0 .STK-MED ONE 05/12 1019 DC 05/12 (SUBLIMAZE) .ROUTE 1141 Midazolam HCl 0 .STK-MED ONE 05/12 1019 DC 05/12 (VERSED) .ROUTE 1141 Aspirin 0 .STK-MED ONE 05/12 0929 DC 05/12 (ASPIRIN) PO 0933 Electrolytic, Caloric, And Maico Sig/Nandini Start time Last Medication Dose Route Stop Time Status Admin Sodium Chloride 1,000 ML .[id number] ONE 05/12 1415 AC 05/12 (SODIUM CHLORIDE IV 05/13 0334 1543 0.9%) Sodium Chloride 500 ML ASDIR PRN 05/12 1415 AC (SODIUM CHLORIDE IV 06/11 1414 0.9%) Sodium Chloride 50 ML .STK-MED ONE 05/12 1028 DC 05/12 (SODIUM CHLORIDE IV 1141 0.9%) Gastrointestinal Drugs Sig/Nandini Start time Last Medication Dose Route Stop Time Status Admin Famotidine 20 MG ONCE ONE 05/12 1800 AC (PEPCID) IV 05/12 1801 Hormones And Synthetic Substit Sig/Nandini Start time Last Medication Dose Route Stop Time Status Admin Methylprednisolone 125 MG ONCE ONE 05/12 1800 AC Sodium Succinate IV 05/12 1801 (Solu-Medrol 125 [...] O2 Flow FiO2 Mean Ox Delivery Rate 05/12 0942 36.6 70 18 187/77 100 Room air PATIENT WEIGHT: Weight (lb): 207 Weight (oz): 3.75 Weight (kg): 94.000 General appearance: obese, alert, awake, oriented, no acute distress, pleasant, conversational, mental status normal, no respiratory distress Neck: supple, non-tender, no JVD Cardiovascular: bradycardia, normal capillary refill, regular rate rhythm, normal heart sounds, BP/pulses equal bilat. Respiratory: on oxygen, decreased breath sounds Genitourinary: not indicated Extremities: moves all, no edema-all extremities Musculoskeletal: full range of motion, normal inspection Neuro/INSPECTOR FIREARMS: alert, oriented X 3, normal speech Skin: dry, intact, normal color Psychiatry: no hallucinations, normal affect, normal judgment/insight, normal mood Results Findings/Data: Laboratory Tests: [...] H Results: vital signs reviewed, vital signs stable, rhythm personally rev'd Treatment Prophylaxis Treatment Prophylaxis [...] diabetes mellitus, CVA, rheumatoid arthritis who was brought in electively for staged PCI to LAD. She underwent succesful PCI of the severe proximal LAD using distal to proximal 2.75 x 24 mm Synergy drug-eluting stent overlapped with a 3.5 x 24 mm Synergy drug-eluting stent and then overlapped proximally to the ostium of the LAD using a 3.5 x 12 mm Synergy drug-eluting stent. The patient has iodine allergy and had some shortness of breath and sensation of throat closing during the procedure. She is currently doing better. No signs of respiratory distress, no stridor, or wheezing. She is maintaining her aiway. She will be admitted to CCU for observation. Gently IV hydration is initited. Anticipate discharge in the morning if stable. Continue [...] attest that the foregoing medication list in the medical record is true, accurate, and complete to the best of my knowledge. at [address] [facility] #:[id number] [facility] 2021-05-12 12:29:00 [id number] [place] [id number] PATIENT NAME: MARINA MARTINEZ ADMIT DATE: 05/12/21 ACCOUNT NO: [id number] ROOM NO: G.3360 AGE: 61 REPORT TYPE: eELECTROCARDIOGRAM REPORT SEX: F ADMITTING PHYSICIAN:Inga Robertson MD ATTENDING PHYSICIAN:Inga Robertson MD Order: [id number] Test Reason : PCI Test Date/Time Stamp: MonMay 12 2021 12:29:04 Blood Pressure : / mmHG Vent. Rate : 064 BPM Atrial Rate : 064 BPM P-R Int : 154 ms QRS Dur : 082 ms QT Int : 454 ms P-R-T Axes : 065 007 051 degrees QTc Int : 468 ms Normal sinus rhythm Cannot rule out Anterior infarct (cited on or before 12-MAY-2021) Abnormal ECG When compared with ECG of 10-MAY-2021 14:16, No significant change was found Confirmed by MD ROBERTSON MOLHAM ([id number]) on 05/23/2021 9:36:49 AM Referred By: Dany Mcdonald Confirmed by:INGA ROBERTSON MD at 0936 PATIENT NAME: MARINA MARTINEZ [facility] 2021-05-12 12:21:00 [id number] [place] [address] PATIENT NAME: MARINA MARTINEZ ADMIT DATE: 05/12/21 ACCOUNT NO: [id number] [place]: [facility] [place] AGE: 61 REPORT TYPE: CARDIAC CATHETERIZATION REPORT SEX: F ADMITTING PHYSICIAN:Inga Robertson MD ATTENDING PHYSICIAN:Inga Robertson MD PROCEDURE DATE: 05/12/2021 PROCEDURES PERFORMED: 1. Selective coronary angiogram. 2. IVUS of the LAD. 3. FFR of the LAD, which was strongly positive at 0.76. 4. CSI atherectomy of heavily calcified [...] Synergy drug-eluting stent. ACCESS: Right femoral artery, 6-Niuean closed with Perclose. COMPLICATIONS: None. BLEEDING: Less than 50 mL. TOTAL CONTRAST USED: 90 mL. TOTAL SEDATION TIME: 85 minutes. DESCRIPTION OF PROCEDURE: After risks, benefits, and alternatives were explained, the patient agreed to proceed and signed informed consent. The patient was brought into the cardiac catheterization laboratory, prepped and draped in usual sterile fashion. Then, we accessed the right femoral artery using a micropuncture kit, ultrasound guidance and fluoroscopy and placed 6-Niuean Milano sheath. Then, I took a 6-Niuean XB3.5 guide into aortic root and engaged the left main and then I took a short Runthrough wire into the left main and then LAD, did IVUS, which showed that it is heavily calcified vessel and did FFR by sending the Comet wire after giving systemic heparin to assure ACT level of over 250. Comet wire was equalized in the aortic root and then advanced into the LAD passing the mid LAD stenosis and FFR was performed and it was 0.76 indicating severe LAD disease. Then, I took a ViperWire into the LAD. removed the Runthrough wire and did CSI atherectomy at low and high speed mid all the way to proximal LAD and then used a 3.0 x 20 mm NC balloon to predilate and then I took an IVUS catheter again to size the vessel, probably on the distal, on the mid LAD and used 2.75 x 24 mm Synergy drug-eluting stent in the midportion, then overlapped proximally using 3.5 x 24 mm Synergy drug-eluting stent and then the proximal LAD did not have good flow, so I used another 3.5 x [address] to the ostium of the LAD and the overlapped areas were then postdilated to high pressure and final results were satisfactory with 0% residual stenosis and LO-3 flow. As such, we removed all the wires and took PATIENT NAME: MARINA MARTINEZ final angiogram which was satisfactory and removed the guide, removed the sheath and Perclose was used for closure with good hemostasis. CONCLUSION: Successful IVUS/FFR-guided and CSI atherectomy of the LAD, proximal and mid, and status post successful PCI as outlined above. PLAN: 1. Continue Plavix and aspirin and high-dose statin. 2. Due to the IODINE ALLERGY and the patient was having some shortness of breath and felt that her throat is closing, we will monitor her overnight in the hospital and hydrate gently. Plan for discharge tomorrow or once her symptoms are completely resolved. EKG post-procedure was totally normal. Dictated By: Dany Mcdonald MD WT: CATH:CARLOTA/RASSA/NTS Conf#: [id number]/DID#: [id number] Authenticated by Dany Mcdonald MD On 05/18/2021 10:42:38 AM at 1042 PATIENT NAME: MARINA MARTINEZ [facility] 2021-05-10 14:16:00 [id number] [place] [address] PATIENT NAME: MARINA MARTINEZ ADMIT DATE: 05/10/21 ACCOUNT NO: [id number] ROOM NO: AGE: 61 REPORT TYPE: eELECTROCARDIOGRAM REPORT SEX: F ADMITTING PHYSICIAN: ATTENDING PHYSICIAN:Dany Mcdonald MD Order: [id number] Test Reason : PREOP Test Date/Time Stamp: MonMay 10 2021 14:16:28 Blood Pressure : / mmHG Vent. Rate : 072 BPM Atrial Rate : 072 BPM P-R Int : 136 ms QRS Dur : 080 ms QT Int : 406 ms P-R-T Axes : 059 -09 058 degrees QTc Int : 444 ms Normal sinus rhythm Left axis deviation Abnormal ECG PRE_OP Confirmed by WILLIAM FRIAS MD ([id number]) on 05/10/2021 3:22:29 PM Referred By: Dany Mcdonald Confirmed by:WILLIAM FRIAS MD at 1522 PATIENT NAME: MARINA MARTINEZN [facility] 2019-07-15 13:12:04 My last note indicated: Reduce tramadol to one daily for 2 weeks and then stop. She should be off. [facility], later [facility] 2019-07-15 08:36:19 Requested Prescriptions Pending Prescriptions Disp Refills TRAMADOL 50 mg tablet [Pharmacy Med Name: TRAMADOL 50MG TABLETS] 120 tablet Sig: TAKE 1 TABLET BY MOUTH UP TO FOUR TIMES DAILY NEEDED FOR PAIN There is no refill protocol information for this order Routing to provider for approval of Tramadol 50mg tablets. NOV: 08/20/2019. Please advise. Nadia Sifuentes MA [facility]
[2024-10-19] MEDS ORDERED: MORPHINE 4 MG/ML SYR ONE (16:12)
[2024-10-19] MEDS ORDERED: ONDANSETRON 4 MG/2 ML VIAL ONE (16:13)
[2024-10-19] MEDS ORDERED: NA CHLORIDE 0.9% 1,000 ML ONE (16:13)
[2024-10-19 16:36] LABS: Absolute Lymphocytes (CBC) 2.1 K/uL (0.7-4.9); Hematocrit 42.3 % (36.0-45.0); Hemoglobin 14.5 g/dL (12.0-15.0); MCH 29.2 pg (27.0-35.0); MCHC 34.2 g/dL (32.0-36.0); MCV 85.5 fL (80-100); MPV 7.4 fL (7.6-11.3); Nucleated RBC Absolute Count 0.0 (0-0); Nucleated Red Blood Cells % 0.2 % (0-0); RBC Red Blood Cell Count 4.95 M/uL (3.86-4.86); White Blood Count 6.20 thou/uL (4.3-10.9)
[2024-10-19 17:21] LABS: ALT/SGPT 19.0 U/L (13-56); Albumin 3.7 g/dL (3.4-5.0); Albumin/Globulin Ratio 0.8 (1.1-1.8); Alkaline Phosphatase 93.0 U/L (45-117); Anion Gap 9.3 mEq/L (5.0-15.0); BUN Blood Urea Nitrogen 20.0 mg/dL (7-18); Globulin 4.6 g/dL (2.3-3.5); Glucose Level 98.0 mg/dL (74-106); Lipase 57.0 U/L (13-75)
[2024-10-19 17:25] LABS: AST/SGOT 24.0 U/L (15-37); Potassium 4.3 mEq/L (3.5-5.1)
--- NOTE | 2024-10-19 18:36 | ER ---
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 Coronavirus screen: Client denies travel out of the [place] in the last 14 days. At this time, the client does not indicate any symptoms associated with coronavirus-19. Ebola Screen: Patient denies travel to an Ebola-affected area in the 21 days before illness onset. Initial Sepsis Screen: Does the patient meet any 2 criteria? No. Patient's initial sepsis screen is negative. Does the patient have a suspected source of infection? No. Patient's initial sepsis screen is negative. Risk Assessment: Do you want to hurt yourself or someone else? Patient reports no desire to harm self or others. Onset of symptoms was October 19, 2024. 15:41 Method Of Arrival: Ambulatory ll1 15:41 Acuity: HODAN 3 ll1 Triage Assessment: 15:45 General: Appears in no apparent distress. obese, Behavior is cooperative, appropriate bp for age, anxious. Pain: Complains of pain in abdomen. EENT: No deficits noted. Neuro: No deficits noted. Cardiovascular: No deficits noted. Respiratory: No deficits noted. GI: Reports lower abdominal pain, nausea. : No signs and/or symptoms were reported regarding the genitourinary system. Derm: No deficits noted. Musculoskeletal: No deficits noted. Historical: - Allergies: 15:41 Iodinated Contrast Media - IV Dye; ll1 15:41 SHELLFISH; ll1 - PMHx: 15:41 Diabetes - IDDM; Hypertension; Myocardial infarction; Rheumatoid Arthritis; ll1 - PSHx: 15:41 B knee replacements; cardiac stents (ys); section; Cholecystectomy; Coronary ll1 Angioplasty; lap band; - Immunization history:: Adult Immunizations up to date. - Infectious Disease History:: Denies. - Social history:: Smoking status: Patient denies any tobacco usage or history of. Screenin:47 [facility] ED Fall Risk Assessment (Adult) History of falling in the last 3 months, bp including since admission No falls in past 3 months (0 pts) Confusion or Disorientation No (0 pts) Intoxicated or Sedated No (0 pts) Impaired Gait No (0 pts) Mobility Assist Device Used No (0 pt) Altered Elimination No (0 pt) Score/Fall Risk Level 0 - 2 = Low Risk Oriented to surroundings. Abuse screen: Denies threats or abuse. Denies injuries from another. Nutritional screening: No deficits noted. Tuberculosis screening: No symptoms or risk factors identified. Assessment: 16:20 Reassessment: Patient and/or family updated on plan of care and expected duration. Pain ll1 level reassessed. Vital Signs: 15:41 BP 186 / 77; Pulse 66; Resp 18; Temp 97; Pulse Ox 99% ; Weight 85.73 kg; Height 5 ft. 0 ll1 in. ; Pain 9/10; 18:47 BP 167 / 75; Pulse 69; Resp 16; Pulse Ox 99% ; bp 15:41 Body Mass Index 36.91 (85.73 kg, 152.4 cm) ll1 15:41 Pain Scale: Adult ll1 ED Course: 15:31 Patient arrived in ED. gl 15:34 Foster R[facility] F[facility]C [facility]. dr5 15:34 Margarito Gusman is Attending Physician. dr5 15:41 Arm band placed on. ll1 15:43 Triage completed. ll1 16:16 Felton Ortiz, RN is Primary Nurse. bp 16:20 Patient placed in an exam room, on a stretcher. ll1 16:28 Initial lab(s) drawn, by ne, sent to lab. Inserted saline lock: 20 gauge in right bp antecubital area, using aseptic technique. Blood collected. Flushed with 10 mL NS. 18:47 Patient has correct armband on for positive identification. bp 18:47 No provider procedures requiring assistance completed. IV discontinued, intact, bp bleeding controlled, No redness/swelling at site. Pressure dressing applied. Administered Medications: 16:27 Drug: Ondansetron IVP 4 mg IVP once; over 2 minutes Route: IVP; Site: right antecubital;bp 18:49 Follow up: Response: No adverse reaction bp 16:28 Drug: morphine IVP or IV 4 mg IVP once over 4 mins Route: IVP; Infused Over: 4 mins; bp Site: right antecubital; 18:49 Follow up: Response: No adverse reaction bp 16:28 Drug: NS 0.9% IV 1000 ml IV at 1 bolus Per protocol; to be given as a bolus over 60 bp minutes Route: IV; Rate: 1 bolus; Site: right antecubital; 18:49 Follow up: IV Status: Completed infusion bp Medication: 18:47 VIS not applicable for this client. bp Outcome: 18:35 Discharge ordered by . chika 18:47 Discharged to home ambulatory, bp 18:47 Condition: stable 18:47 Discharge instructions given to patient, Instructed on discharge instructions, follow up and referral plans. medication usage, Demonstrated understanding of instructions, follow-up care, medications, Prescriptions given X 3, 18:49 Patient left the ED. kb4 Signatures: Felton Ortiz, RN RN Shivam Jackson RN RN ll1 Foster Rao, STENO TYPIST-C STENO TYPIST-Cdr5 Jerica Hernandez, MAY RN kb4 Jennifer Miller, Reg Reg gl
--- NOTE | 2024-10-19 18:36 | EDPHYS ---
Physician Documentation [facility] Name: Tamy Martinez Age: 64 yrs Sex: Female : 1960 Arrival Date: 10/19/2024 Time: 15:27 Bed 6 Private MD: ED Physician Margarito Gusman HPI: 10/19 15:46 This 64 yrs old Female presents to ER via Ambulatory with complaints of dr5 Abdominal Pain. 15:46 The patient presents with abdominal pain in the left upper quadrant. Onset: The dr5 symptoms/episode began/occurred acutely. Patient reports left upper quadrant.. Historical: - Allergies: 15:41 Iodinated Contrast Media - IV Dye; ll1 15:41 SHELLFISH; ll1 - PMHx: 15:41 Diabetes - IDDM; Hypertension; Myocardial infarction; Rheumatoid Arthritis; ll1 - PSHx: 15:41 B knee replacements; cardiac stents (ys); section; Cholecystectomy; Coronary ll1 Angioplasty; lap band; - Immunization history:: Adult Immunizations up to date. - Infectious Disease History:: Denies. - Social history:: Smoking status: Patient denies any tobacco usage or history of. ROS: 18:35 Constitutional: as per hpi dr5 Exam: 18:35 Constitutional: This is a well developed, well nourished patient who is awake, alert, dr5 and in no acute distress. Head/Face: Normocephalic, atraumatic. Eyes: Pupils equal round and reactive to light, extra-ocular motions intact. Lids and lashes normal. Conjunctiva and sclera are non-icteric and not injected. Cornea within normal limits. Periorbital areas with no swelling, redness, or edema. Neck: Trachea midline, no thyromegaly or masses palpated, and no cervical lymphadenopathy. Supple, full range of motion without nuchal rigidity, or vertebral point tenderness. No Meningismus. Chest/axilla: Normal chest wall appearance and motion. Nontender with no deformity. No lesions are appreciated. Cardiovascular: Regular rate and rhythm with a normal S1 and S2. Normal PMI, no JVD. No pulse deficits. Respiratory: Lungs have equal breath sounds bilaterally, clear to auscultation. No rales, rhonchi or wheezes noted. No increased work of breathing, no retractions or nasal flaring. Abdomen/GI: Soft, non-tender, non-distended Back: No spinal tenderness. No costovertebral tenderness. Full range of motion. Skin: Warm, dry with normal turgor. Normal color with no rashes, no lesions, and no evidence of cellulitis. MS/ Extremity: Pulses equal, no cyanosis. Neurovascular intact. Full, normal range of motion. Neuro: Awake and alert, GCS 15, oriented to person, place, time, and situation. Cranial nerves II-XII grossly intact. Motor strength 5/5 in all extremities. Sensory grossly intact. Cerebellar exam normal. Normal gait. Vital Signs: 15:41 BP 186 / 77; Pulse 66; Resp 18; Temp 97; Pulse Ox 99% ; Weight 85.73 kg; Height 5 ft. 0 ll1 in. ; Pain 9/10; 18:47 BP 167 / 75; Pulse 69; Resp 16; Pulse Ox 99% ; bp 15:41 Body Mass Index 36.91 (85.73 kg, 152.4 cm) ll1 15:41 Pain Scale: Adult ll1 MDM: 15:34 Medical Screening Exam initiated dr5 18:41 Differential diagnosis: pancreatitis, Electrolyte abnormality, pancreatitis, fatty dr5 liver, Lap-Band problem. Data reviewed: vital signs, nurses notes, lab test result(s), amylase and lipase, CBC, white blood cell count, hemoglobin, hematocrit, platelets, electrolytes, sodium, potassium, chloride, serum bicarbonate, BUN, creatinine, serum glucose. Consideration of Admission/Observation Escalation of care including admission/observation considered. Escalation considered patient's pain did not resolve.. I considered the following discharge prescriptions or medication management in the emergency department I discussed and recommended Over The Counter medications, Medications were administered in the Emergency Department. See MAR. Test considered but Not performed: CT: CT scan was discussed with patient for upper abdominal pain. Patient and I both reviewed her CT scan from last month and joint decision making deferred CT scan again because pain was exactly the same as it was last month.. Care significantly affected by the following chronic conditions: Diabetes, Hypertension, MA, RA. Care significantly affected by the following Social Determinants of Health: Poor access to healthcare and/or lack of insurance, Poor access to transportation, Problems related to employment. Counseling: I had a detailed discussion with the patient and/or guardian regarding the historical points, exam findings, and any diagnostic results supporting the discharge/admit diagnosis, the presence of at least one elevated blood pressure reading (>120/80) during this emergency department visit, lab results, the need for outpatient follow up, for definitive care, a bilingual receptionist, to return to the emergency department if symptoms worsen or persist or if there are any questions or concerns that arise at home. Medication response: morphine relieved the patient's pain. Symptoms have resolved, Zofran relieved the patient's nausea. Response to treatment: the patient's symptoms have resolved after treatment, the patient's condition has returned to base line. Special discussion: I have referred the patient to see his PCP for further evaluation of high blood pressure. I discussed with the patient/guardian in detail that at this point there is no indication for admission to the hospital. It is understood, however, that if the symptoms persist or worsen the patient needs to return immediately for re-evaluation. Based on the history and exam findings, there is no indication for further emergent testing or inpatient evaluation. I discussed with the patient/guardian the need to see the bilingual receptionist for further evaluation of the symptoms. ED course: Will have patient follow-up with GI doctor as well as surgeon that did Lap-Band. Patient reports that she would like to see GI. Will start patient on PPI and give Zofran for nausea. All question answered. Strict ER precautions given.. 10/19 15:53 Order name: CBC with Diff; Complete Time: 16:38 dr5 10/19 15:53 Order name: CMP; Complete Time: 17:43 dr5 10/19 15:53 Order name: Lipase; Complete Time: 17:43 dr5 10/19 15:53 Order name: IV Saline Lock; Complete Time: 16:27 dr5 10/19 15:53 Order name: Labs collected and sent; Complete Time: 16:27 dr5 Administered Medications: 16:27 Drug: Ondansetron IVP 4 mg IVP once; over 2 minutes Route: IVP; Site: right antecubital;bp 18:49 Follow up: Response: No adverse reaction bp 16:28 Drug: morphine IVP or IV 4 mg IVP once over 4 mins Route: IVP; Infused Over: 4 mins; bp Site: right antecubital; 18:49 Follow up: Response: No adverse reaction bp 16:28 Drug: NS 0.9% IV 1000 ml IV at 1 bolus Per protocol; to be given as a bolus over 60 bp minutes Route: IV; Rate: 1 bolus; Site: right antecubital; 18:49 Follow up: IV Status: Completed infusion bp Disposition: 18:58 Co-signature as Attending Physician, Margarito Gusman I agree with the assessment ci and plan of care. I reviewed the patient's care provided by the Advanced Practice Provider and agree with the diagnosis and treatment plan. Disposition Summary: 10/19/24 18:35 Discharge Ordered Notes: Location: Home dr5 Condition: Stable dr5 Diagnosis - Abdominal pain, Generalized dr5 Followup: dr5 - With: Emergency Department - When: As needed - Reason: Worsening of condition Followup: dr5 - With: Private Physician - When: 1 - 2 days - Reason: Recheck today's complaints, Continuance of care, Re-evaluation by your physician Discharge Instructions: - Discharge Summary Sheet dr5 - Abdominal Pain, Adult dr5 - Food Choices for Gastroesophageal Reflux Disease, Adult dr5 Forms: - Medication Reconciliation Form dr5 - Prescription Opioid Use dr5 - Patient Portal Instructions dr5 - Leadership Thank You Letter dr5 Prescriptions: - Protonix 40 mg Oral Tablet - take 1 tablet ORAL route once daily; 30 tablet; Refills: 0, Product Selection dr5 Permitted - Zofran 4 mg Oral Tablet - take 1 tablet ORAL route every 12 hours As needed; 20 tablet; Refills: 0, dr5 Product Selection Permitted - Tramadol 50 mg Oral Tablet - take 1 tablet ORAL route every 8 hours as needed; 12 tablet; Refills: 0, dr5 Product Selection Permitted Signatures: Dispatcher [employer] EDFelton Pettit RN RN bp Lewis, Lynsay, RN RN ll1 Margarito Gusman Dustin, SEASONAL SALES ASSOCIATE-C SEASONAL SALES ASSOCIATE-Cdr5 Corrections: (The following items were deleted from the chart) 15:53 15:53 CBC+H.LAB.BRZ ordered. EDMS EDMS 15:53 15:53 COMPREHENSIVE METABOLIC PANEL+C.LAB.BRZ ordered. EDMS EDMS 15:53 15:53 LIPASE+C.LAB.BRZ ordered. EDMS EDMS
[2024-10-19 19:15] VITALS: TEMP 97; O2SAT 99
[2024-10-19 19:16] VITALS: BP 167/75
== END 2024-10-19 18:49 | disposition home or self-care (01) ==
LOC: ER 15:27
DX: R10.84 Generalized abdominal pain (principal)
CPT/HCPCS: 96361; 85025; 36415; 83690; 80053; 96375; 96374; 99284; J2405; J7030

== ENCOUNTER 2024-12-30 12:04 | Emergency (ER) | payer BC, MEDICAID ==
[2024-12-30 12:47] LABS: Absolute Lymphocytes (CBC) 1.4 K/uL (0.7-4.9); Hematocrit 41.2 % (36.0-45.0); Hemoglobin 13.8 g/dL (12.0-15.0); MCH 29.1 pg (27.0-35.0); MCHC 33.6 g/dL (32.0-36.0); MCV 86.7 fL (80-100); MPV 7.6 fL (7.6-11.3); Nucleated RBC Absolute Count 0.0 (0-0); Nucleated Red Blood Cells % 0.2 % (0-0); RBC Red Blood Cell Count 4.76 M/uL (3.86-4.86); White Blood Count 6.60 thou/uL (4.3-10.9)
[2024-12-30 12:54] LABS: PT Prothrombin Time 12.6 SECONDS (10-13.0); Protime INR 1.12
--- NOTE | 2024-12-30 12:55 | RAD REPORT ---
EXAMINATION: Head Brain Wo Cont CLINICAL INDICATION: Female, 64 years old.DIZZINESS TECHNIQUE: Axial CT images from the skull base to the vertex without intravenous contrast. Coronal an d sagittal reformatted images were created from the data set. One or more of the following dose reduction techniques were used: Automated exposure control, adjustment of the mA and/or kV according to patient size, and/or iterative reconstruction. Unless otherwise specified, incidental findings do not require dedicated imaging follow-up. [id number]. COMPARISON: 06/01/2024 FINDINGS: INTRACRANIAL: No acute intracranial hemorrhage. No acute large vascular territory infarct. No hydro cephalus. No mass effect or midline shift. No significant white matter disease. VASCULATURE: No visualized abnormalities in the arteries or dural venous sinuses. SCALP/SKULL: No calvarial fracture identified. No acute soft tissue abnormality. SINUSES: The visualized paranasal sinuses are mostly clear. No significant mastoid fluid. IMPRESSION: No acute intracranial abnormality.
[2024-12-30 13:09] LABS: Anion Gap 10.3 mEq/L (5.0-15.0); BUN Blood Urea Nitrogen 25.0 mg/dL (7-18); Glucose Level 117.0 mg/dL (74-106); NT PRO-BNP 687.0 pg/mL (<125); Potassium 4.3 mEq/L (3.5-5.1); Troponin High Sensitivity 9.0 pg/mL (<58.9)
--- NOTE | 2024-12-30 13:28 | RAD REPORT ---
EXAM: Chest Single View HISTORY: 64 years Female CHEST PAIN COMPARISON: 04/23/2024 FINDINGS: LUNGS/PLEURA: The lungs are clear. No pleural effusions or pneumothorax. No pulmonary edema. CARDIAC/MEDIASTINUM: The cardiac silhouette is within normal limits. UPPER ABDOMEN: No significant abnormality. BONES: No acute abnormality. LINES/TUBES/OTHER: N/A IMPRESSION: No evidence of acute cardiopulmonary disease. No significant change from prior.
[2024-12-30] MEDS ORDERED: MECLIZINE HCL 12.5 MG TAB ONE (13:50)
--- NOTE | 2024-12-30 14:26 | ER ---
Nurse's Notes [facility] Name: Tamy Martinez Age: 64 yrs Sex: Female : 1960 Arrival Date: 12/30/2024 Time: 12:04 Bed 25 Private MD: Diagnosis: Other peripheral vertigo;Chest pain, unspecified Presentation: 12/30 12:26 Chief complaint: EMS states: CHEST PAIN, DIZZINESS, NECK AND LT SHOULDER PAIN THAT dd2 BEGAN AT 10 AM THIS MORNING. Coronavirus screen: At this time, the client does not indicate any symptoms associated with coronavirus-19. Ebola Screen: No symptoms or risks identified at this time. Initial Sepsis Screen: Does the patient meet any 2 criteria? No. Patient's initial sepsis screen is negative. Does the patient have a suspected source of infection? No. Patient's initial sepsis screen is negative. Risk Assessment: Do you want to hurt yourself or someone else? Patient reports no desire to harm self or others. Onset of symptoms was December 30, 2024 at 10:00. 12:26 Method Of Arrival: EMS: [facility] dd2 12:26 Acuity: HODAN 3 dd2 Triage Assessment: 12:27 Headache History: Other PT DENIES HEADACHE. General: Appears in no apparent distress. dd2 uncomfortable, Behavior is calm, cooperative, appropriate for age. Pain: Complains of pain in chest, anterior aspect of left shoulder and neck Pain currently is 8 out of 10 on a pain scale. Pain began 3 hours ago. Also complains of DIZZINESS. Neuro: Reports dizziness. Cardiovascular: Reports chest pain. Historical: - Allergies: 12:27 Iodinated Contrast Media - IV Dye; dd2 12:27 SHELLFISH; dd2 - PMHx: 12:27 Diabetes - IDDM; Hypertension; Myocardial infarction; Rheumatoid Arthritis; dd2 - PSHx: 12:27 B knee replacements; cardiac stents; section; Cholecystectomy; Coronary dd2 Angioplasty; lap band; - Immunization history:: Adult Immunizations unknown. - Infectious Disease History:: Denies. - Social history:: Smoking status: Patient denies any tobacco usage or history of. Screenin:45 [facility] ED Fall Risk Assessment (Adult) History of falling in the last 3 months, kj2 including since admission No falls in past 3 months (0 pts) Confusion or Disorientation No (0 pts) Intoxicated or Sedated No (0 pts) Impaired Gait No (0 pts) Mobility Assist Device Used No (0 pt) Altered Elimination No (0 pt) Score/Fall Risk Level 0 - 2 = Low Risk Oriented to surroundings, Hourly rounding (assess needs \T\ fall precautionary measures) done. Abuse screen: Denies threats or abuse. Denies injuries from another. Nutritional screening: No deficits noted. Tuberculosis screening: No symptoms or risk factors identified. Assessment: 12:43 General: Appears in no apparent distress. Behavior is cooperative. Pain: Complains of kj2 pain in left arm and chest Pain currently is 5 out of 10 on a pain scale. Neuro: Level of Consciousness is awake, alert, obeys commands, Oriented to person, place, time, situation. Cardiovascular: Patient's skin is warm and dry. Respiratory: Airway is patent Respiratory effort is unlabored. GI: No signs and/or symptoms were reported involving the gastrointestinal system. : No signs and/or symptoms were reported regarding the genitourinary system. 12:45 Reassessment: Patient appears in no apparent distress at this time. Patient and/or kj2 family updated on plan of care and expected duration. Pain level reassessed. Patient is alert, oriented x 3, equal unlabored respirations, skin warm/dry/pink. 14:30 Reassessment: Patient appears in no apparent distress at this time. Patient and/or kj2 family updated on plan of care and expected duration. Pain level reassessed. Patient is alert, oriented x 3, equal unlabored respirations, skin warm/dry/pink. Vital Signs: 12:26 BP 121 / 75; Pulse 57; Resp 16; Temp 98.3; Pulse Ox 98% on R/A; Pain 8/10; dd2 13:00 BP 134 / 63; Pulse 61; Resp 20; Pulse Ox 98% on R/A; kj2 14:05 BP 121 / 65; Pulse 58; Resp 18; Temp 98; Pulse Ox 99% on R/A; kj2 12:26 Pain Scale: Adult dd2 ED Course: 12:06 Patient arrived in ED. im 12:08 Foster Rao FNP-C [facility]. bc6 12:08 Ralph Salazar MD is Attending Physician. bc6 12:27 Triage completed. dd2 12:27 Arm band placed on right wrist. EKG completed in triage. Results shown to MD. dd2 12:42 Comfort Cordoba, RN is Primary Nurse. kj2 12:45 CT Head Brain wo Cont In Process Unspecified. EDMS 12:46 Patient has correct armband on for positive identification. Bed in low position. Call kj2 light in reach. Provided Education on: call light. 12:46 Maintain EMS IV. Dressing intact. Good blood return noted. Site clean \T\ dry. Gauge \T\ kj 2 site: 20g right AC. Flushed with 10 mL NS. 13:20 XRAY Chest (1 view) In Process Unspecified. EDMS 14:31 No provider procedures requiring assistance completed. IV discontinued, intact, kj2 bleeding controlled, No redness/swelling at site. Pressure dressing applied. Administered Medications: 13:51 Drug: Meclizine PO 25 mg PO once Route: PO; kj2 14:31 Follow up: Response: No adverse reaction kj2 Medication: 14:31 VIS not applicable for this client. kj2 Outcome: 14:25 Discharge ordered by . dr5 14:31 Discharged to home ambulatory, kj2 14:31 Condition: stable 14:31 Discharge instructions given to patient, Instructed on discharge instructions, follow up and referral plans. Demonstrated understanding of instructions, follow-up care, 14:40 Patient left the ED. kj2 Signatures: Dispatcher [employer] EDMS Juliet Pete bc6 Kait Stallworth Krystal, RN RN kj2 BECKY SMITH RN RN dd2 Foster Rao, BIOLOGICAL SCIENCES INSTRUCTOR-C BIOLOGICAL SCIENCES INSTRUCTOR-Cdr5
--- NOTE | 2024-12-30 14:41 | EDPHYS ---
Physician Documentation [facility] Name: Tamy Martinez Age: 64 yrs Sex: Female : 1960 Arrival Date: 12/30/2024 Time: 12:04 Bed 25 Private MD: ED Physician Ralph Salazar HPI: 12/30 18:20 This 64 yrs old Female presents to ER via EMS with complaints of Dizziness, dr5 Headache, Chest Pain. 18:20 Onset: The symptoms/episode began/occurred acutely. dr5 Historical: - Allergies: 12:27 Iodinated Contrast Media - IV Dye; dd2 12:27 SHELLFISH; dd2 - PMHx: 12:27 Diabetes - IDDM; Hypertension; Myocardial infarction; Rheumatoid Arthritis; dd2 - PSHx: 12:27 B knee replacements; cardiac stents; section; Cholecystectomy; Coronary dd2 Angioplasty; lap band; - Immunization history:: Adult Immunizations unknown. - Infectious Disease History:: Denies. - Social history:: Smoking status: Patient denies any tobacco usage or history of. ROS: 18:30 Constitutional: as per hpi dr5 Exam: 18:30 Constitutional: This is a well developed, well nourished patient who is awake, alert, dr5 and in no acute distress. Head/Face: Normocephalic, atraumatic. Eyes: Pupils equal round and reactive to light, extra-ocular motions intact. Lids and lashes normal. Conjunctiva and sclera are non-icteric and not injected. Cornea within normal limits. Periorbital areas with no swelling, redness, or edema. Neck: Trachea midline, no thyromegaly or masses palpated, and no cervical lymphadenopathy. Supple, full range of motion without nuchal rigidity, or vertebral point tenderness. No Meningismus. Chest/axilla: Normal chest wall appearance and motion. Nontender with no deformity. No lesions are appreciated. Cardiovascular: Regular rate and rhythm with a normal S1 and S2. Normal PMI, no JVD. No pulse deficits. Respiratory: Lungs have equal breath sounds bilaterally, clear to auscultation. No rales, rhonchi or wheezes noted. No increased work of breathing, no retractions or nasal flaring. Back: No spinal tenderness. No costovertebral tenderness. Full range of motion. Skin: Warm, dry with normal turgor. Normal color with no rashes, no lesions, and no evidence of cellulitis. MS/ Extremity: Pulses equal, no cyanosis. Neurovascular intact. Full, normal range of motion. Neuro: Awake and alert, GCS 15, oriented to person, place, time, and situation. Cranial nerves II-XII grossly intact. Motor strength 5/5 in all extremities. Sensory grossly intact. Cerebellar exam normal. Normal gait. Vital Signs: 12:26 BP 121 / 75; Pulse 57; Resp 16; Temp 98.3; Pulse Ox 98% on R/A; Pain 8/10; dd2 13:00 BP 134 / 63; Pulse 61; Resp 20; Pulse Ox 98% on R/A; kj2 14:05 BP 121 / 65; Pulse 58; Resp 18; Temp 98; Pulse Ox 99% on R/A; kj2 12:26 Pain Scale: Adult dd2 MDM: 12:11 Medical Screening Exam initiated dr5 18:30 Differential diagnosis: cardiac arrhythmia, generalized weakness, hyperventilation, dr5 near-syncope, vertigo, NSTEMI, otitis media, otitis externa. Data reviewed: vital signs, nurses notes, lab test result(s), CBC, white blood cell count, hemoglobin, hematocrit, platelets, electrolytes, sodium, potassium, chloride, serum bicarbonate, BUN, creatinine, serum glucose, EKG, radiologic studies, CT scan, plain films. Consideration of Admission/Observation Escalation of care including admission/observation considered. Escalation considered patient found to have intracranial hemorrhage. I considered the following discharge prescriptions or medication management in the emergency department I discussed and recommended Over The Counter medications, Medications were administered in the Emergency Department. See MAR. Care significantly affected by the following chronic conditions: Hypertension, diabetes, SD, RA. Care significantly affected by the following Social Determinants of Health: Poor access to healthcare and/or lack of insurance, Poor access to transportation, Problems related to employment. Counseling: I had a detailed discussion with the patient and/or guardian regarding the historical points, exam findings, and any diagnostic results supporting the discharge/admit diagnosis, the presence of at least one elevated blood pressure reading (>120/80) during this emergency department visit, lab results, radiology results, the need for outpatient follow up, for definitive care, a family practitioner, to return to the emergency department if symptoms worsen or persist or if there are any questions or concerns that arise at home. Medication response: Meclizine. Response to treatment: the patient's symptoms have markedly improved after treatment. Special discussion: I discussed with the patient/guardian in detail that at this point there is no indication for admission to the hospital. It is understood, however, that if the symptoms persist or worsen the patient needs to return immediately for re-evaluation. Based on the history and exam findings, there is no indication for further emergent testing or inpatient evaluation. I discussed with the patient/guardian the need to see the primary care provider for further evaluation of the symptoms. ED course: Patient reports feeling much better after meclizine. All labs and scans printed and given to patient to follow-up with primary care doctor.. 12/30 12:16 Order name: Basic Metabolic Panel; Complete Time: 13:36 dr5 12/30 12:16 Order name: CBC with Diff; Complete Time: 13:36 dr5 12/30 12:16 Order name: NT PRO-BNP; Complete Time: 13:36 dr5 12/30 12:16 Order name: PT-INR; Complete Time: 13:36 dr5 12/30 12:16 Order name: Troponin HS; Complete Time: 13:36 dr5 12/30 12:16 Order name: XRAY Chest (1 view); Complete Time: 13:36 dr5 12/30 12:30 Order name: CT Head Brain wo Cont; Complete Time: 13:36 dr5 12/30 12:16 Order name: Cardiac monitoring; Complete Time: 12:47 dr5 12/30 12:16 Order name: EKG - Nurse/Tech; Complete Time: 12:47 dr5 12/30 12:16 Order name: IV Saline Lock; Complete Time: 12:47 dr5 12/30 12:16 Order name: Labs collected and sent; Complete Time: 12:47 dr5 12/30 12:16 Order name: O2 Per Protocol; Complete Time: 12:47 dr5 12/30 12:16 Order name: O2 Sat Monitoring; Complete Time: 12:47 dr5 EC:24 Rate is 56 beats/min. Rhythm is regular. QRS [place] is Normal. [place] interval is normal at dr5 122 msec. QRS interval is normal at 80 msec. QT interval is normal at 438 msec. Clinical impression: Sinus bradycardia and No evidence of ischemia. Administered Medications: 13:51 Drug: Meclizine PO 25 mg PO once Route: PO; kj2 14:31 Follow up: Response: No adverse reaction kj2 Disposition Summary: 12/30/24 14:25 Discharge Ordered Notes: Location: Home dr5 Condition: Stable dr5 Diagnosis - Other peripheral vertigo dr5 - Chest pain, unspecified dr5 Followup: dr5 - With: Emergency Department - When: As needed - Reason: Worsening of condition Followup: dr5 - With: Private Physician - When: 1 - 2 days - Reason: Recheck today's complaints, Continuance of care, Re-evaluation by your physician Discharge Instructions: - Discharge Summary Sheet dr5 - Nonspecific Chest Pain, Adult dr5 - Dizziness dr5 Forms: - Medication Reconciliation Form dr5 - Patient Portal Instructions dr5 - Leadership Thank You Letter dr5 Prescriptions: - Meclizine 25 mg Oral Tablet - take 1 tablet ORAL route every 8 hours As needed; 30 tablet; Refills: 0, dr5 Product Selection Permitted - Lasix 20 mg Oral Tablet - take 1 tablet ORAL route once daily; 20 tablet; Refills: 0, Product Selection dr5 Permitted Signatures: Dispatcher [employer] EDComfort Wade RN RN kj2 BECKY SMITH RN RN dd2 Foster Rao, DIRECTOR OF TRANSPORTATION-C DIRECTOR OF TRANSPORTATION-Cdr5 Corrections: (The following items were deleted from the chart) 12:17 12:17 BASIC METABOLIC PANEL+C.LAB.BRZ ordered. EDMS EDMS 12:17 12:17 CBC+H.LAB.BRZ ordered. EDMS EDMS 12:17 12:17 PROBNP+C.LAB.BRZ ordered. EDMS EDMS 12:17 12:17 PROTIME (+INR)+COAG.LAB.BRZ ordered. EDMS EDMS 12:17 12:17 Troponin High Sensitivity+C.LAB.BRZ ordered. EDMS EDMS 12:17 12:17 Chest Single View+RAD.RAD.BRZ ordered. EDMS EDMS 12:30 12:30 Head Brain Wo Cont+CT.RAD.BRZ ordered. EDMS EDMS
[2024-12-30 18:22] VITALS: BP 121/65; TEMP 98; O2SAT 99
== END 2024-12-30 14:40 | disposition home or self-care (01) ==
LOC: ER 12:04
DX: H81.399 Other peripheral vertigo, unspecified ear (principal); R07.9 Chest pain, unspecified; I10 Essential (primary) hypertension; Z95.818 Presence of other cardiac implants and grafts
CPT/HCPCS: 93005; 85025; 80048; 36415; 85610; 84484; 83880; 70450; 71045; 99284; J8597